=== PATIENT | female | born 1965 | race Caucasian/White ===

== ENCOUNTER 2016-07-14 19:59 | Outpatient (CLI) | payer SELFPAY | END 2016-07-15 06:50 | disposition home or self-care (01) | LOC: SLEEP 19:59 | PROVIDERS: ATTEND Nurse Practitioner Adult Health | DX: G47.33 Obstructive sleep apnea (adult) (pediatric) (principal) | CPT/HCPCS: 95811 ==

== ENCOUNTER → 2017-03-21 | Outpatient (CLI) | payer OTHER ==
--- NOTE | 2017-03-22 19:28 | Diagnostic Imaging Report ---
EXAMINATION: Bilateral screening mammogram 2D views with tomosynthesis The current study was also evaluated with a Computer Aided Detection (CAD) system. INDICATION: Screening. No current complaints stated on the questionnaire. COMPARISON: 03/15/16. FINDINGS: The breasts are composed of heterogeneously dense parenchyma which may decrease mammographic sensitivity. Occasional benign-appearing calcifications are noted. Allowing for technique and positional differences, no suspicious change is seen. IMPRESSION: Dense breasts with no definite change. ACR BI-RADS Category 2: Benign findings. Result letter will be mailed to the patient. Note: At least 10% of breast cancer is not imaged by mammography. Dictated on workstation # [id number]
== END ==
LOC: RAD 11:28
PROVIDERS: ATTEND Nurse Practitioner Family
DX: Z12.31 Encounter for screening mammogram for malignant neoplasm of breast (principal)
CPT/HCPCS: 77067

== ENCOUNTER → 2017-03-21 | Outpatient (CLI) | payer OTHER ==
--- NOTE | 2017-03-21 18:18 | Diagnostic Imaging Report ---
Transabdominal and transvaginal pelvic ultrasound. INDICATION: Menopause four years ago. FINDINGS: The uterus is 8.4 x 4.4 x 4.7 cm in size. The endometrial thickness is 0.6 cm. The myometrium is fairly homogeneous with no focal lesion seen. There is a small amount of fluid seen in the cervical canal and with irregularity of the endocervical lining. Posterior to the uterus, there is a cystic structure measuring 1.6 cm of uncertain etiology. The ovaries are obscured by bowel gas. IMPRESSION: There is thickening of the endometrial stripe for a postmenopausal woman with slight irregularity of the endocervical lining. Endometrial sampling is suggested to rule out underlying endometrial polyp, hyperplasia, or carcinoma. Dictated by: Dictated on workstation # [id number]
== END ==
LOC: RAD 11:24
PROVIDERS: ATTEND Nurse Practitioner Family
DX: N95.0 Postmenopausal bleeding (principal); Z80.41 Family history of malignant neoplasm of ovary
CPT/HCPCS: 76830; 76856

== ENCOUNTER → 2017-07-24 | Outpatient (CLI) | payer OTHER ==
--- NOTE | 2017-07-24 10:11 | Diagnostic Imaging Report ---
INDICATION: Back pain. COMPARISON: 11/07/2014. FINDINGS: Frontal and lateral radiographic views of the lumbar spine were obtained. Note is made of transitional lumbosacral anatomy. Static alignment is maintained. There is no significant meagan- or retrolisthesis. There is no evidence of jumped facets. Vertebral body heights are preserved as well. There is no evidence of acute fracture. There are mild multilevel degenerative changes consisting of intervertebral disc height loss and facet arthropathy. Surrounding soft tissue structures are unremarkable. IMPRESSION: 1. No acute fracture or dislocation of the lumbar spine. 2. Mild multilevel degenerative changes. Dictated by: Dictated on workstation # [id number]
== END ==
LOC: RAD 09:35
PROVIDERS: ATTEND Plastic Surgery
DX: Z02.71 Encounter for disability determination (principal); M47.816 Spondylosis without myelopathy or radiculopathy, lumbar region
CPT/HCPCS: 72100

== ENCOUNTER → 2018-03-26 | Outpatient (CLI) | payer MEDICAID, OTHER ==
--- NOTE | 2018-03-26 09:18 | Diagnostic Imaging Report ---
INDICATION: Routine screening. COMPARISON: 03/21/2017 and 03/15/2016. TECHNIQUE: 2D and 3D bilateral screening mammography was performed with CAD. FINDINGS: Both breasts are heterogeneously dense, limiting the sensitivity of mammography. No dominant mass or malignant appearing microcalcifications are seen. There are benign calcifications bilaterally. The axillae are unremarkable. IMPRESSION: No mammographic features suspicious for malignancy are identified. ACR BI-RADS Category 2: Benign findings. Result letter will be mailed to the patient. Note: At least 10% of breast cancer is not imaged by mammography. Dictated by: Dictated on workstation # [id number]
== END ==
LOC: RAD 07:27
PROVIDERS: ATTEND Nurse Practitioner Primary Care
DX: Z12.31 Encounter for screening mammogram for malignant neoplasm of breast (principal)
CPT/HCPCS: 77067

== ENCOUNTER 2018-05-09 12:30 | Outpatient (CLI) | payer MEDICAID ==
[~2018-05-09] VITALS: Ht 160 cm; Wt 127.9 kg
[~2018-05-09 12:30] MED LIST: ALBU1.25 INH; CETI10TA17 PO; CITA40TA11 PO; GABA-488 PO; HYDR50TA3 PO; LAMO50TA3 PO; MELO7.5T46 PO; PANT20TA3 PO; RISP1TAB94 PO; RT-ALBUINH IH
== END 2018-05-09 12:45 | disposition home or self-care (01) ==
LOC: PREOP 12:30
PROVIDERS: ATTEND Surgery
DX: Z01.818 Encounter for other preprocedural examination (principal)

== ENCOUNTER 2018-05-15 05:55 | Day surgery (SDC) | payer MEDICAID ==
[~2018-05-15] VITALS: Ht 160 cm; Wt 127.9 kg
--- OUTSIDE RECORDS SUMMARY | 2018-05-15 06:03 | XMS REPORT ---
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 Role Phone LAZARA ARGUETA Unavailable PROBLEMS Type Condition ICD9-CM Code CNE76-LK Code Onset Dates Condition Status SNOMED Code Problem Edema R60.9 Active 001663103 Problem Major depressive disorder, single episode, unspecified F32.9 Active 94813275 Problem Environmental allergies Z91.09 Active 988835057 Problem Obstructive sleep apnea G47.33 Active 30971230 Problem GERD (gastroesophageal reflux disease) K21.9 Active 523517607 Problem Bipolar 1 disorder F31.9 Active 126273990 Problem Mixed hyperlipidemia E78.2 Active 453679042 Problem COPD suggested by initial evaluation J44.9 Active 24613916 Problem Schizoaffective disorder, bipolar type F25.0 Active 56104348 Problem Neuropathy G62.9 Active 614094239 Problem Morbid (severe) obesity due to excess calories E66.01 Active 045478178 Problem Primary osteoarthritis of left knee M17.12 Active 639792333 ALLERGIES No Information ENCOUNTERS Encounter Location Date Diagnosis [facility] [address], [place] [address] May, [facility] [id number] [place] [address] 53107- 1983 Mar, [facility] [id number] [place] [address] 82681- 4231 Mar, [facility] [id number] [place] [address] 38908- 2758 Mar, [facility] [address], [place] [address] 0581 Mar, [facility] [id number] [place] [address] 39655- 0089 Mar, [facility] [id number] [place] [address] 76866- 1694 Mar, [facility] [id number] [place] [address] 94501- 6261 Mar, Screening for breast cancer Z12.31 ; Screening for colon cancer Z12.11 and BMI 45.0-49.9, adult Z68.42 [facility] [address] 63175- 2133 15 Mar, 2018 [facility] [id number] [place] [address] 58672- 9718 Mar, [facility] [id number] [place] [address] 58325- 4332 Mar, [facility] [id number] [place] [address] 87965- 0212 Jan, Schizoaffective disorder, bipolar type F25.0 and 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 [facility] [id number] [place] [address] 62179- 1720 18 Jan, 2018 Prediabetes R73.03 and Mixed hyperlipidemia E78.2 [facility] [id number] [place] [address] 11400- 3406 17 Jan, 2018 Obstructive sleep apnea G47.33 ; Primary osteoarthritis of left knee M17.12 ; Prediabetes R73.03 ; Mixed hyperlipidemia E78.2 ; COPD suggested by initial evaluation J44.9 and BMI 45.0-49.9, adult Z68.42 [facility] [id number] [place] [address] 82884- 1060 11 Jan, 2018 Encounter for immunization Z23 [facility] [id number] [place] [address] 61893- 0653 10 Jan, 2018 [facility] [id number] [place] [address] 29871- 3147 05 Dec, 2017 [facility] [address], [place] [address] 4071 Nov, Obstructive sleep apnea G47.33 and COPD suggested by initial evaluation J44.9 [facility] [address] [place] [address] 05858- 1655 Nov, COPD (chronic obstructive pulmonary disease) J44.9 [facility] [id number] [place] [address] 28623- 4541 Nov, [facility] [id number] [place] [address] 37455- 7851 Oct, [facility] [id number] [place] [address] 82436- 2690 Oct, [facility] [id number] [place] [address] 40865- 3296 Oct, Other prison (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 Z79.899 [facility] [id number] [place] [address] 98938- 4463 Oct, Schizoaffective disorder, bipolar type F25.0 ; 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 and 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.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 [facility] [address], [place] [address] 6166 Oct, Prediabetes R73.03 ; COPD suggested by initial evaluation J44.9 ; BMI 45.0-49.9, adult Z68.42 and Obstructive sleep apnea G47.33 [facility] [address], [place] [address] 4486 Sep, [facility] [id number] [place] [address] 41953- 0072 August, Neuropathy G62.9 [facility] [address], [place] [address] 3438 August, [facility] [id number] [place] [address] 70536- 1784 August, [facility] [id number] [place] [address] 01627- 1235 Jul, [facility] [address] 65418- 6925 Jul, Primary osteoarthritis of left knee M17.12 [facility] [address] 97151- 8971 Jul, Schizoaffective disorder, bipolar type F25.0 and 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 [facility] [address] 19029- 2511 Jul, Prediabetes R73.03 ; Primary osteoarthritis of left knee M17.12 ; GERD (gastroesophageal reflux disease) K21.9 ; Bipolar 1 disorder F31.9 ; Depression F32.9 ; Environmental allergies Z91.09 ; Neuropathy G62.9 ; Edema R60.9 ; Body mass index (BMI) of 45.0-49.9 in adult Z68.42 and Morbid ( severe) obesity due to excess calories E66.01 [facility] [address] 33799- 0940 Jul, [facility] [address] 31179- 0984 Jun, [facility] [id number] [place] [address] 75984- 1902 Jun, [facility] [address] 24419- 7055 Jun, Wound of right breast, initial encounter S21.001A and Prediabetes R73.03 [facility] [address] 19323- 5492 Jun, [facility] [id number] [place] [address] 50266- 1946 May, GERD (gastroesophageal reflux disease) K21.9 [facility] [address] 40143- 5456 May, Primary osteoarthritis of left knee M17.12 [facility] [id number] [place] [address] 29015- 3047 May, Schizoaffective disorder, bipolar type F25.0 and 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 [facility] [id number] [place] [address] 69502- 0867 May, Left medial knee pain M25.562 ; GERD (gastroesophageal reflux disease) K21.9 ; Depression F32.9 ; Neuropathy G62.9 ; Obesity E66.9 ; Prediabetes R73.03 and Edema R60.9 [facility] [address] 92880- 9641 14 Mar, 2017 [facility] [address] 44392- 9695 08 Mar, 2017 [facility] [id number] [place] [address] 05290- 3570 05 Mar, 2017 Post-menopausal bleeding N95.0 and BMI 50.0-59.9, adult Z68.43 [facility] [id number] [place] [address] 12147- 0159 Mar, [facility] [id number] [place] [address] 03865- 0180 Mar, Schizoaffective disorder, bipolar type F25.0 and 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 [facility] [id number] [place] [address] 10328- 7602 Mar, [facility] [id number] [place] [address] 33397- 6813 Mar, [facility] [id number] [place] [address] 22577- 0249 10 Mar, 2017 Post-menopausal bleeding N95.0 ; Screening breast examination Z12.31 ; Screen for STD (sexually transmitted disease) Z11.3 ; Obesity E66.9 ; Family history of ovarian cancer Z80.41 and Family history of cervical cancer Z80.49 [facility] [address], [place] [address]- 2948 Mar, [facility] [id number] [place] [address] 89413- 6866 Mar, [facility] [id number] [place] [address] 47327- 1174 Jan, Schizoaffective disorder, bipolar type F25.0 and 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 [facility] [id number] [place] [address] 87393- 4931 Jan, Schizoaffective disorder, bipolar type F25.0 [facility] [id number] [place] [address] 24060- 8174 Jan, [facility] [id number] [place] [address] 78906- 3086 Jan, Prediabetes R73.03 and Obesity E66.9 [facility] [id number] [place] [address] 42773- 2935 Jan, Encounter for immunization Z23 [facility] [id number] [place] [address] 01228- 2583 Jan, [facility] [id number] [place] [address] 80790- 4264 Dec, [facility] [id number] [place] [address] 50717- 0135 Dec, [facility] [id number] [place] [address] 26360- 5990 Nov, Neuropathy G62.9 [facility] [id number] [place] [address] 14901- 7691 Nov, [facility] [id number] [place] [address] 27310- 5432 Nov, Schizoaffective disorder, bipolar type F25.0 [facility] [id number] [place] [address] 86370- 7721 Nov, Other prison (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 Z79.899 and Schizoaffective disorder, bipolar type F25.0 [facility] [id number] [place] [address] 46884- 2155 Oct, Schizoaffective disorder, bipolar type F25.0 ; Other prison (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 Z79.899 and 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 [facility] [id number] [place] [address] [id number] Oct, Dental caries K02.9 [facility] [address] 46889- 8889 Sep, Neuropathy G62.9 [facility] [address] 56044- 0571 Sep, [facility] [address] 31459- 2078 Sep, Neuropathy G62.9 [facility] [address] 91490- 8789 Jul, Schizoaffective disorder, depressive type F25.1 [facility] [id number] [place] [address] 74698- 4354 Jul, GERD (gastroesophageal reflux disease) K21.9 ; Joint pain of lower extremity M25.50 ; Environmental allergies Z91.09 ; Stress incontinence of urine N39.3 ; Neuropathy G62.9 ; Edema R60.9 and Acute pain of left knee M25.562 [facility] [id number] [place] [address] 14884- 5921 Jun, [facility] [id number] [place] [address] [id number] Jun, Dental examination Z01.20 [facility] [address] 72260- 4917 Jun, [facility] [id number] [place] [address] 10806- 5929 May, [facility] [address] 39239- 4784 May, Bipolar 1 disorder F31.9 ; Joint pain of lower extremity M25.50 ; Environmental allergies Z91.09 ; Stress incontinence of urine N39.3 ; Major depressive disorder, single episode, unspecified F32.9 ; Dizzy R42 ; Schizoaffective disorder, unspecified F25.9 ; Neuropathy G62.9 ; Localized edema R60.0 and GERD (gastroesophageal reflux disease) K21.9 [facility] [address] 42759- 5695 May, Schizoaffective disorder, depressive type F25.1 [facility] [address] 30136- 5634 May, Environmental allergies Z91.09 and Major depressive disorder , single episode, unspecified F32.9 [facility] [id number] [place] [address] 18277- 4799 Mar, Dental caries K02.9 [facility] [id number] [place] [address] 24760- 6737 Mar, Dental caries on smooth surface penetrating into pulp K02.63 [facility] [id number] [place] [address] 85800 -9035 Mar, Peripheral edema R60.9 and Dry skin L85.3 [facility] [id number] [place] [address] 13528- 4376 Mar, [facility] [address] 53546- 3171 Mar, Major depressive disorder, single episode, unspecified F32.9 [facility] [id number] [place] [address] 33423- 7034 Mar, Dental caries K02.9 [facility] [id number] [place] [address] 67677- 9381 07 Mar, 2016 Diabetes mellitus with complication E11.8 ; Urinary frequency R35.0 ; Stress incontinence of urine N39.3 ; Joint pain of lower extremity M25.50 ; Obesity E66.9 ; Environmental allergies Z91.09 ; Depression F32.9 ; Schizoaffective disorder, unspecified F25.9 ; Vaginal discharge N89.8 and Vaginal candidiasis B37.3 [place] [address] 50629- 2597 Jan, Schizoaffective disorder, unspecified F25.9 [facility] [facility] [address] 22584- 0158 Jan, [place] [address] 34032- 3355 30 Dec, 2015 [place] [address] 96599- 6375 Dec, Dental caries K02.9 [facility] [address] 54181- 7089 14 Dec, 2015 Obesity E66.9 ; Edema R60.9 ; Depression F32.9 ; Bipolar 1 disorder F31.9 ; 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 ; Environmental allergies Z91.09 ; Shortness of breath R06.02 ; Gastroesophageal reflux disease with esophagitis K21.0 ; Other chronic pain G89.29 ; Pain in right knee M25.561 ; Pain in left knee M25.562 and Encounter for immunization Z23 [facility] [id number] [place] [address] 17337- 4536 Nov, Dental caries K02.9 [facility] [address] 77796- 7142 Oct, Schizoaffective disorder, unspecified F25.9 [facility] [address] 98454- 3254 12 Oct, 2015 Dental examination Z01.20 [facility] [address], [place] [address]- 2967 20 Sep, 2015 Dental examination Z01.20 and Dental caries K02.9 [facility] [id number] [place] [address] 65127- 4153 13 Sep, 2015 [facility] [id number] [place] [address] 31425- 7630 Sep, [facility] [id number] [place] [address] 55465- 1748 Sep, [facility] [id number] [place] [address] 71672- 9807 Sep, Schizoaffective disorder, unspecified F25.9 [facility] [id number] [place] [address] 88350- 2283 August, Bipolar disorder, unspecified F31.9 [facility] [id number] [place] [address] 85942- 2185 Jul, Edema R60.9 and Obesity E66.9 [facility] [id number] [place] [address] 70711- 4889 Jul, Edema R60.9 [facility] [id number] [place] [address] 40889- 1935 Jul, Edema R60.9 [facility] [id number] [place] [address] 86201 -7945 Jul, Edema R60.9 [facility] [id number] [place] [address] 75818- 9248 Jul, [facility] [id number] [place] [address] 05335- 8975 08 Jul, 2015 [facility] [id number] [place] [address] 19844- 1424 24 Jun, 2015 Environmental allergies V15.09 and Cough R05 [facility] [address] 42828- 6898 17 Jun, 2015 Environmental allergies V15.09 ; Edema R60.9 and Cough R05 [facility] [address] 89929 -6061 12 Jun, 2015 Bronchospasm J98.01 [facility] [address] 39542- 1996 10 Jun, 2015 [place] [address] 17920- 0036 09 Jun, 2015 [place] [address] 58601- 9704 08 Jun, 2015 Environmental allergies V15.09 ; Bipolar 1 disorder F31.9 ; GERD (gastroesophageal reflux disease) K21.9 ; Depression F32.9 ; Joint pain of lower extremity M25.50 ; COPD (chronic obstructive pulmonary disease) J44.9 and Screening for diabetes mellitus Z13.1 [place] [address] 49798- 5796 16 Jun, 2015 [place] [address] 08724- 3526 May, [facility] [address] 22645- 5274 14 May, 2015 Schizoaffective disorder, unspecified F25.9 and Bipolar 1 disorder F31.9 [facility] [address] 32791- 0472 May, [place] [address] 93823- 3895 May, URI (upper respiratory infection) J06.9 ; Environmental allergies V15.09 and Cough R05 [facility] [id number] [place] [address] 11352- 6678 18 Mar, 2015 [place] [address] 42778- 8407 15 Mar, 2015 Vaginal discharge N89.8 [facility] [place] [address] 88890- 3387 14 Mar, 2015 Schizoaffective disorder, unspecified F25.9 ; Major depressive disorder, single episode, unspecified F32.9 and Bipolar 1 disorder F31.9 [facility] [address] 71143- 1743 Mar, [place] [address] 59593- 1005 Mar, Bipolar 1 disorder F31.9 [facility] [address] 68868- 9330 Jan, [place] [address] 50801- 8768 Jan, Allergic rhinitis J30.9 and Cough R05 [facility] [address] 65342- 9762 Jan, 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 ; Bipolar 1 disorder F31.9 ; GERD ( gastroesophageal reflux disease) K21.9 ; Depression F32.9 and Joint pain of lower extremity M25.50 [facility] [address] 62942- 0899 28 Dec, 2014 Encounter for immunization Z23 [facility] [address] 94661- 3295 Dec, Schizoaffective disorder, unspecified 295.70 ; Pain in joint , lower leg 719.46 ; Esophageal reflux 530.81 ; Bipolar 1 disorder 296.7 ; Depression 311 ; GERD (gastroesophageal reflux disease) 530.81 and Environmental allergies V15.09 [facility] [id number] [place] [address] [id number] Nov, Dental examination V72.2 [facility] [id number] [place] [address] 76868- 3651 Nov, Acute bronchitis 466.0 [facility] [address], [place] [address]- 2546 Nov, Schizoaffective disorder, unspecified 295.70 and Bipolar disorder, unspecified 296.80 [facility] [address] [address] Sep, Dental examination V72.2 [facility] [address] [id number] August, Dental examination V72.2 [facility] [id number] [place] [address] 99907- 9126 August, Schizoaffective disorder, unspecified 295.70 [facility] [id number] [place] [address] 47652 2546 August, [facility] [id number] [place] [address] 92629 2546 August, Vomiting 787.03 [facility] [id number] [place] [address] 92361- 9716 August, Vomiting and diarrhea 787.03 and High risk medication use V58.69 [facility] [address], [place] [address]- 0356 Jul, [facility] [address], [place] [address]- 4416 Jul, [facility] [address], [place] [address]- 4806 Jul, [facility] [address], [place] [address] 2546 Jun, [facility] [address] [place] [address] 07656- 1346 Jun, [facility] [address], [place] [address] 2546 Jun, [facility] [address], [place] [address]- 2376 Jun, [facility] [place] [facility] [address] [id number] [place] [address]- 2636 16 Jun, 2014 [facility] [place] [facility] [address] [id number] [place] [address]- 4716 Jun, 2014 [facility] [place] [facility] [address] [id number] [place] [address]- 4786 Jun, 2014 [facility] [place] [facility] [address] [id number] [place] [address]- 3736 Jun, 2014 [facility] [place] [facility] [address] [id number] [place] [address]- 2089 Jun, 2014 [facility] [place] [facility] [address] [id number] [place] [address]- 6297 Mar, [facility] [place] [facility] [address] [id number] [place] [address]- 4965 Mar, [facility] [place] [facility] [address] [id number] [place] [address]- 6410 Mar, [facility] [place] [facility] [address] [id number] [place] [address]- 2674 Mar, [facility] [place] [facility] [address] [id number] [place] [address]- 4882 Mar, [facility] [place] [facility] [address] [id number] [place] [address]- 2703 Mar, [facility] [place] [facility] [address] [id number] [place] [address]- 1983 Mar, [facility] [place] [facility] [address] [id number] [place] 9495 Mar, [facility] [place] [facility] [address] [id number] [place] [address]- 6513 Mar, [facility] [place] [facility] [address] [id number] [place] [address]- 9141 Mar, [facility] [place] [facility] [address] [id number] [place] [address]- 3383 Jan, [facility] [place] [facility] [address] [id number] [place] [address]- 8150 Jan, [facility] [place] [facility] [address] [id number] [place] [address]- 1170 Jan, [facility] [place] [facility] [address] [id number] [place] [address]- 1841 Jan, [facility] [place] [facility] [address] [id number] [place] [address]- 0756 Jan, [facility] [place] [facility] [address] [id number] [place] [address]- 9280 Jan, [facility] [place] [facility] [address] [id number] [place] [address]- 9898 Jan, [facility] [place] [facility] [address] [id number] [place] [address] Jan, [facility] [place] [facility] [address] [id number], [place] [address] 19 Dec, 2013 [facility] [place] [facility] [address] [id number] [place] [address] 19 Dec, 2013 [facility] [place] [facility] [address] [id number] [place] [address] 15 Dec, 2013 [facility] [place] [facility] [address] [id number] [place] [address] 15 Sep, 2013 [facility] [place] [facility] [address] [id number], [place] [address] 15 Sep, 2013 [facility] [place] [facility] [address] [id number] [place] [address] 15 Dec, 2013 [facility] [place] [facility] [address] [id number], [place] [address] 12 Dec, 2013 [facility] [place] [facility] [address] [id number], [place] [address] 12 Dec, 2013 [facility] [place] [facility] [address] [id number] [place] [address] Dec, [facility] [place] [facility] [address] [id number] [place] [address] Dec, [facility] [place] [facility] [address] [id number] [place] [address] Nov, [facility] [place] [facility] [address] [id number] [place] [address] Nov, [facility] [place] [facility] [address] [id number] [place] [address] Nov, [facility] [facility] [address] [id number] [place] [address] Nov, [facility] [place] [facility] [address] [id number] [place] [address] Oct, [facility] [place] [facility] [address] [id number] [place] [address] Oct, [facility] [place] [facility] [address] [id number] [place] [address] 89[address] Oct, [facility] [place] [facility] [address] [id number] [place] [address] Oct, [facility] [place] [facility] [address] [id number] [place] [address] Sep, [facility] [place] [facility] [address] [id number] [place] [address] 1573 Sep, [facility] [place] [facility] [address] [id number] [place] [address] Sep, [facility] [place] [facility] [address] [id number] [place] [address] 17 Sep, 2013 [facility] [place] [facility] [address] [id number] [place] [address]- [address] 14 Sep, 2013 [facility] [place] [facility] [address] [id number] [place] [address]- 0766 Sep, [facility] [place] [facility] [address] [id number] [place] [address]26 Sep, [facility] [place] [facility] [address] [id number] [place] [address] Sep, [facility] [place] [facility] [address] [id number] [place] [address] August, [facility] [place] [facility] [address] [id number] [place] [address]15 August, [facility] [place] [facility] [address] [id number] [place] [address] Jul, [facility] [place] [facility] [address] [id number] [place] [address]- 8982 Jul, [facility] [place] [facility] [address] [id number] [place] [address] 46[address] Jul, [facility] [place] [facility] [address] [id number] [place] [address] 3861 Jul, [facility] [place] [facility] [address] [id number] [place] [address]- 9207 Jul, [facility] [place] [facility] [address] [id number] [place] [address] Jul, [facility] [address] [id number] [place] [address]- 0133 Jul, [facility] [address] [id number], [place] [address] Jul, [facility] [address] [id number] [place] [address] 3928 Jul, [facility] [address] [id number] [place] [address]- [address] Jul, [facility] [address] [id number] [place] [address]- 4[address] Jun, [facility] [facility] [address] [id number] [place] [address]- 1787 27 Jun, 2013 [facility] [address] [id number] [place] [address]- 2578 18 Jun, 2013 [facility] [address] [id number] [place] [address] 18 Jun, 2013 [facility] [address] [id number] [place] [address]- [address]704 17 Jun, 2013 [facility] [place] [address] [id number] [place] [address]- 3484 17 Jun, 2013 [facility] [address] [id number] [place] [address]- 9496 17 Jun, 2013 [facility] [address] [id number] [place] [address]- 6301 17 Jun, 2013 [facility] [address] [id number] [place] [address]- 6[address] 14 Jun, 2013 [facility] [address] [id number] [place] [address]- 5275 14 Jun, 2013 [facility] [address] [id number] [place] [address]- 8137 07 Jun, 2013 [facility] [address] [facility] [id number] [place] [address]- [address]894 07 Jun, 2013 [facility] [address] [id number] [place] [address]- [address]37 Jun, [facility] [address] [id number] [place] [address]- 7841 Jun, [facility] [address] [id number] [place] [address]- 1072 Jun, [facility] [address] [id number] [place] [address]- [address]376 Jun, [facility] [address] [id number] [place] [address]- 6188 May, [facility] [address] [id number] [place] [address]- 2569 May, [facility] [address] [id number] [place] [address] 3213 May, [facility] [address] [id number] [place] [address]- 6221 May, [facility] [address] [id number] [place] [address]- 0207 Mar, [facility] [address] [id number] [place] [address] Mar, [facility] [address] [id number] [place] [address] 1943 Mar, [facility] [address] [id number] [place] [address]- 1656 Mar, [facility] [address] [id number] [place] [address]- 7600 Mar, [facility] [address] [id number] [place] [address]- 8973 Mar, [facility] [address] [id number] [place] [address]- 1283 Mar, [facility] [address] [id number] [place] [address]- 2566 Mar, [facility] [address] [id number], [place] [address] Jan, [facility] [address] [id number] [place] [address]- 6743 Jan, [facility] [address] [id number] [place] [address]- 7888 Jan, [facility] [address] [id number] [place] [address]- 3141 Jan, [facility] [address] [id number] [place] [address]- 6120 Jan, [facility] [address] [id number] [place] [address]- 3269 Jan, [facility] [address] [id number] [place] [address]- 0578 Jan, [facility] [address] [id number] [place] [address]- 1414 Dec, [facility] [address] [id number] [place] [address]- 4424 Nov, [facility] [address] [id number] [place] [address]- 1575 Oct, [facility] [address] [id number] [place] [address]- 4017 Oct, [facility] [address] [id number], [place] [address]- 2[address] Sep, [facility] [address] [id number] [place] [address]- 6664 Sep, [facility] [address] [id number] [place] [address]- 5880 Sep, [facility] [address] [id number] [place] [address]- 3158 August, [facility] [address] [id number] [place] [address]- 5753 Jun, [facility] [address] [id number], [place] [address]- 9150 Jun, [facility] [address] [id number], [place] [address]- 7479 Jun, [facility] [address] [id number], [place] [address]- 6184 Jun, [facility] [address] [id number], [place] [address]- 0825 Jun, [facility] [address] [id number] [place] [address]- 5432 Jun, [facility] [address] [id number] [place] [address]- 5027 Jun, [facility] [address] [id number] [place] [address]- 1432 May, [facility] [address] [id number] [place] [address]- 5863 May, [facility] [address] [id number] [place] [address]- 8187 May, [facility] [address] [id number] [place] [address]- 5551 May, [facility] [address] [id number] [place] [address]- 1188 May, [facility] [address] [id number], [place] [address]- 3737 May, [facility] [address] [id number] [place] [address]- 1262 May, [facility] [address] [id number], [place] [address]- 1493 Mar, [facility] [address] [id number], [place] [address]- 4308 Mar, [facility] [address] [id number], [place] [address]- 3453 Mar, [facility] [address] [id number] [place] [address]- 0168 Mar, [facility] [address] [id number] [place] [address]- 9106 Mar, [facility] [address] [id number], [place] [address]- 6891 Mar, [facility] [address] [id number], [place] [address]- 9430 Mar, [facility] [address] [id number] [place] [address]- 6671 Mar, [facility] [address] [id number] [place] [address]- 9591 Mar, [facility] [address] [facility] [id number] [place] [address]- 7454 Mar, [facility] [address] [id number] [place] [address]- 5526 Mar, [facility] [address] [id number] [place] [address], [place] [address]- 3284 Mar, [facility] [address] [facility] [id number] [place] [address]- 9622 Mar, [facility] [address] [id number] [place] [address]- 2678 Mar, [facility] [address] [facility] [id number] [place] [address]- 0477 Mar, [facility] [address] [id number] [place] [address]- 0074 Mar, [facility] [address] [facility] [id number] [place] [address]- 0904 Mar, [facility] [address] [facility] [id number], [place] [address]- 5166 Mar, [facility] [address] [facility] [id number], [place] [address]- 9338 Mar, [facility] [address] [facility] [id number], [place] [address]- 2895 Jan, [facility] [address] [facility] [id number], [place] [address]- 4470 Jan, [facility] [address] [facility] [id number], [place] [address]- 5234 Jan, [facility] [id number], [place] [address]- 7945 Jan, [facility] [id number], [place] [address]- 8976 Dec, [facility] [id number], [place] [address]- 0557 Dec, [facility] [id number], [place] [address]- 8809 Dec, [facility] [id number], [place] [address]- 1801 Nov, [facility] [id number] [place] [address]- 1723 Nov, [facility] [id number] [place] [address]- 8213 Oct, [facility] [id number] [place] [address]- 3238 Oct, [facility] [id number], [place] [address]- 0688 Oct, [facility] [id number], [place] [address]- 3665 Oct, [facility] [id number], [place] [address]- 5790 Oct, [facility] [id number], [place] [address]- 5640 Oct, IMMUNIZATIONS No Known Immunizations SOCIAL HISTORY Never Assessed REASON FOR VISIT Requests return call PLAN OF CARE VITAL SIGNS MEDICATIONS Unknown Medications RESULTS No Results PROCEDURES No Known procedures INSTRUCTIONS MEDICATIONS ADMINISTERED No Known Medications MEDICAL (GENERAL) HISTORY Type Description Date Medical History bipolar disorder Medical History depression Medical History GERD Medical History hx of meth use til 1998 Medical History DX sleep apnea 06/2016 Medical History History of methylenedioxymethamphetamine (MDMA) use Medical History Osteoarthritis- Knees Medical History Neuropathy Medical History COPD suggestive by initial evaluation 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
--- OUTSIDE RECORDS SUMMARY | 2018-05-15 06:03 | XMS REPORT ---
Author Author LAZARA ARGUETA [facility] Address [address] [place] [address] Care Team Providers Care Top Loader Name Role Phone LAZARA ARGUETA Unavailable PROBLEMS Type Condition ICD9-CM Code GZW10-RR Code Onset Dates Condition Status SNOMED Code Problem Edema R60.9 Active 027714008 Problem Major depressive disorder, single episode, unspecified F32.9 Active 70117262 Problem Environmental allergies Z91.09 Active 229368111 Problem Obstructive sleep apnea G47.33 Active 48045917 Problem GERD (gastroesophageal reflux disease) K21.9 Active 781316975 Problem Bipolar 1 disorder F31.9 Active 926747117 Problem Mixed hyperlipidemia E78.2 Active 938221119 Problem COPD suggested by initial evaluation J44.9 Active 13880817 Problem Schizoaffective disorder, bipolar type F25.0 Active 96009990 Problem Neuropathy G62.9 Active 276272904 Problem Morbid (severe) obesity due to excess calories E66.01 Active 374223573 Problem Primary osteoarthritis of left knee M17.12 Active 331326401 ALLERGIES No Information ENCOUNTERS Encounter Location Date Diagnosis [facility] [address], [place] [address] May, [facility] [id number] [place] [address] 20894- 8243 Mar, [facility] [address], [place] [address] 7941 Mar, [facility] [id number] [place] [address] 70613- 1350 Mar, [facility] [address], [place] [address] 8961 Mar, [facility] [id number] [place] [address] 04159- 3756 Mar, [facility] [id number] [place] [address] 49488- 3862 Mar, Screening for breast cancer Z12.31 ; Screening for colon cancer Z12.11 and BMI 45.0-49.9, adult Z68.42 [facility] [address] 15056- 7050 15 Mar, 2018 [facility] [facility] [address] 97980- 8354 Mar, [facility] [address] 79861- 4262 Mar, [facility] [address] 31588- 9333 Jan, Schizoaffective disorder, bipolar type F25.0 and 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 [facility] [address] 30660- 1661 Jan, Prediabetes R73.03 and Mixed hyperlipidemia E78.2 [place] [id number] [place] [address] 13209- 3088 17 Jan, 2018 Obstructive sleep apnea G47.33 ; Primary osteoarthritis of left knee M17.12 ; Prediabetes R73.03 ; Mixed hyperlipidemia E78.2 ; COPD suggested by initial evaluation J44.9 and BMI 45.0-49.9, adult Z68.42 [facility] [id number] [place] [address] 25323- 3014 11 Jan, 2018 Encounter for immunization Z23 [facility] [id number] [place] [address] 22613- 6799 Jan, [facility] [id number] [place] [address] 36474- 6257 Dec, [facility] [id number] [place] [address] 16484- 3042 Nov, Obstructive sleep apnea G47.33 and COPD suggested by initial evaluation J44.9 [facility] [address], [place] [address] 1187 Nov, COPD (chronic obstructive pulmonary disease) J44.9 [facility] [id number], [place] [address] 0411 Nov, [facility] [id number] [place] [address] 65934- 9525 Oct, [facility] [id number] [place] [address] 18516- 8546 Oct, [facility] [id number] [place] [address] 56344- 0734 Oct, Other fci (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 Z79.899 [facility] [id number] [place] [address] 13659- 4664 Oct, Schizoaffective disorder, bipolar type F25.0 ; 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 and Other fci (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 Z79.899 [facility] [id number] [place] [address] 72875- 9560 Oct, Prediabetes R73.03 ; COPD suggested by initial evaluation J44.9 ; BMI 45.0-49.9, adult Z68.42 and Obstructive sleep apnea G47.33 [facility] [id number], [place] [address] 6021 Sep, [facility] [id number] [place] [address] 86471- 3834 August, Neuropathy G62.9 [facility] [id number] [place] [address] 74022- 6263 August, [facility] [id number] [place] [address] 59134- 2922 August, [facility] [id number] [place] [address] 35617- 7338 Jul, [facility] [facility] [address] [place] [address] 90350- 9003 Jul, Primary osteoarthritis of left knee M17.12 [facility] [id number] [place] [address] 19046- 9648 Jul, Schizoaffective disorder, bipolar type F25.0 and 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 [facility] [id number] [place] [address] 74530- 1607 Jul, Prediabetes R73.03 ; Primary osteoarthritis of left knee M17.12 ; GERD (gastroesophageal reflux disease) K21.9 ; Bipolar 1 disorder F31.9 ; Depression F32.9 ; Environmental allergies Z91.09 ; Neuropathy G62.9 ; Edema R60.9 ; Body mass index (BMI) of 45.0-49.9 in adult Z68.42 and Morbid ( severe) obesity due to excess calories E66.01 [facility] [id number] [place] [address] 95082- 1165 Jul, [facility] [id number] [place] [address] 96461- 3801 Jun, [facility] [id number] [place] [address] 22572- 9391 Jun, [facility] [id number] [place] [address] 55294- 2593 Jun, Wound of right breast, initial encounter S21.001A and Prediabetes R73.03 [facility] [id number] [place] [address] 75795- 8097 Jun, [facility] [id number] [place] [address] 69608- 3712 May, GERD (gastroesophageal reflux disease) K21.9 [facility] [id number] [place] [address] 29870- 4872 May, Primary osteoarthritis of left knee M17.12 [facility] [id number] [place] [address] 77050- 5928 22 May, 2017 Schizoaffective disorder, bipolar type F25.0 and 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 [facility] [id number] [place] [address] 23755- 0720 04 May, 2017 Left medial knee pain M25.562 ; GERD (gastroesophageal reflux disease) K21.9 ; Depression F32.9 ; Neuropathy G62.9 ; Obesity E66.9 ; Prediabetes R73.03 and Edema R60.9 [facility] [id number] [place] [address] 26710- 2926 14 Mar, 2017 [facility] [address] 88336- 8732 08 Mar, 2017 [place] [address] 22416- 7756 05 Mar, 2017 Post-menopausal bleeding N95.0 and BMI 50.0-59.9, adult Z68.43 [facility] [id number] [place] [address] 04192- 8933 Mar, [facility] [address] 22136- 5927 27 Mar, 2017 Schizoaffective disorder, bipolar type F25.0 and 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 [facility] [id number] [place] [address] 24253- 8923 Mar, [facility] [id number] [place] [address] 83929- 3313 16 Mar, 2017 [facility] [id number] [place] [address] 95549- 2462 10 Mar, 2017 Post-menopausal bleeding N95.0 ; Screening breast examination Z12.31 ; Screen for STD (sexually transmitted disease) Z11.3 ; Obesity E66.9 ; Family history of ovarian cancer Z80.41 and Family history of cervical cancer Z80.49 [facility] [id number] [place] [address] 66758- 3860 Mar, [facility] [id number] [place] [address] 91163- 1892 Mar, [facility] [id number] [place] [address] 93400- 4282 Jan, Schizoaffective disorder, bipolar type F25.0 and 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 [facility] [id number] [place] [address] 50816- 9039 Jan, Schizoaffective disorder, bipolar type F25.0 [facility] [id number] [place] [address] 65297- 7750 Jan, [facility] [id number] [place] [address] 01474- 3600 Jan, Prediabetes R73.03 and Obesity E66.9 [facility] [id number] [place] [address] 45606- 9510 Jan, Encounter for immunization Z23 [facility] [id number] [place] [address] 36454- 6846 Jan, [facility] [id number] [place] [address] 32986- 9382 Dec, [facility] [id number] [place] [address] 48664- 2082 Dec, [facility] [id number] [place] [address] 31143- 4577 Nov, Neuropathy G62.9 [facility] [id number] [place] [address] 80024- 2501 Nov, [facility] [id number] [place] [address] 00771- 2327 Nov, Schizoaffective disorder, bipolar type F25.0 [facility] [address] [place] [address] 44474- 7110 Nov, Other long term care pharmacist (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 Z79.899 and Schizoaffective disorder, bipolar type F25.0 [facility] [id number] [place] [address] 85318- 7994 Oct, Schizoaffective disorder, bipolar type F25.0 ; Other long term care pharmacist (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 Z79.899 and 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 [facility] [id number] [place] [address] [id number] Oct, Dental caries K02.9 [facility] [address] 80167- 0825 Sep, Neuropathy G62.9 [facility] [address] 89228- 5352 Sep, [facility] [address] 14432- 0872 Sep, Neuropathy G62.9 [facility] [id number] [place] [address] 36200- 2741 Jul, Schizoaffective disorder, depressive type F25.1 [facility] [address] 92212- 9216 Jul, GERD (gastroesophageal reflux disease) K21.9 ; Joint pain of lower extremity M25.50 ; Environmental allergies Z91.09 ; Stress incontinence of urine N39.3 ; Neuropathy G62.9 ; Edema R60.9 and Acute pain of left knee M25.562 [facility] [id number] [place] [address] 66769- 8521 Jun, [facility] [id number] [place] [address] [id number] Jun, Dental examination Z01.20 [facility] [id number] [place] [address] 65822- 9147 Jun, [facility] [address] 46384- 4293 May, [facility] [id number] [place] [address] 83610- 7236 May, Bipolar 1 disorder F31.9 ; Joint pain of lower extremity M25.50 ; Environmental allergies Z91.09 ; Stress incontinence of urine N39.3 ; Major depressive disorder, single episode, unspecified F32.9 ; Dizzy R42 ; Schizoaffective disorder, unspecified F25.9 ; Neuropathy G62.9 ; Localized edema R60.0 and GERD (gastroesophageal reflux disease) K21.9 [facility] [id number] [place] [address] 22006- 3042 May, Schizoaffective disorder, depressive type F25.1 [place] [address] 93598- 8257 May, Environmental allergies Z91.09 and Major depressive disorder , single episode, unspecified F32.9 [place] [facility] [address] 60824- 3942 Mar, Dental caries K02.9 [place] [address] 07101- 6809 Mar, Dental caries on smooth surface penetrating into pulp K02.63 [facility] [id number] [place] [address] 68473 -7426 Mar, Peripheral edema R60.9 and Dry skin L85.3 [place] [address] 61365- 7233 Mar, [place] [address] 93185- 6149 Mar, Major depressive disorder, single episode, unspecified F32.9 [place] [facility] [address] 21822- 1024 Mar, Dental caries K02.9 [place] [address] 73747- 7413 Mar, Diabetes mellitus with complication E11.8 ; Urinary frequency R35.0 ; Stress incontinence of urine N39.3 ; Joint pain of lower extremity M25.50 ; Obesity E66.9 ; Environmental allergies Z91.09 ; Depression F32.9 ; Schizoaffective disorder, unspecified F25.9 ; Vaginal discharge N89.8 and Vaginal candidiasis B37.3 [place] [address] 64672- 1313 Jan, Schizoaffective disorder, unspecified F25.9 [place] [address] 53133- 3955 Jan, [facility] [address] 80267- 0784 30 Dec, 2015 [place] [address] 14356- 7433 19 Dec, 2015 Dental caries K02.9 [facility] [place] [address] 95420- 2035 14 Dec, 2015 Obesity E66.9 ; Edema R60.9 ; Depression F32.9 ; Bipolar 1 disorder F31.9 ; 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 ; Environmental allergies Z91.09 ; Shortness of breath R06.02 ; Gastroesophageal reflux disease with esophagitis K21.0 ; Other chronic pain G89.29 ; Pain in right knee M25.561 ; Pain in left knee M25.562 and Encounter for immunization Z23 [place] [address] 49450- 4246 Nov, Dental caries K02.9 [place] [address] 15433- 8978 Oct, Schizoaffective disorder, unspecified F25.9 [facility] [id number] [place] [address] 62859- 1701 Oct, Dental examination Z01.20 [facility] [address] 73870- 6512 Sep, Dental examination Z01.20 and Dental caries K02.9 [facility] [id number] [place] [address] 92716- 6110 Sep, [facility] [id number] [place] [address] 53033- 8699 Sep, [facility] [id number] [place] [address] 42526- 0037 Sep, [facility] [address] 13965- 1534 Sep, Schizoaffective disorder, unspecified F25.9 [place] [address] 07782- 2504 August, Bipolar disorder, unspecified F31.9 [facility] [id number] [place] [address] 63252- 9448 Jul, Edema R60.9 and Obesity E66.9 [facility] [id number] [place] [address] 71371- 3812 Jul, Edema R60.9 [place] [address] 18866- 7480 Jul, Edema R60.9 [facility] [id number] [place] [address] 04642 -2445 Jul, Edema R60.9 [facility] [id number] [place] [address] 92984- 2491 Jul, [facility] [id number] [place] [address] 60580- 3375 Jul, [facility] [address] 23392- 9293 Jun, Environmental allergies V15.09 and Cough R05 [facility] [id number] [place] [address] 23899- 5783 Jun, Environmental allergies V15.09 ; Edema R60.9 and Cough R05 [facility] [id number] [place] [address] 31661 -5968 12 Jun, 2015 Bronchospasm J98.01 [facility] [address] 00154- 4338 10 Jun, 2015 [facility] [address] 98781- 2646 Jun, [facility] [address] 55780- 5062 08 Jun, 2015 Environmental allergies V15.09 ; Bipolar 1 disorder F31.9 ; GERD (gastroesophageal reflux disease) K21.9 ; Depression F32.9 ; Joint pain of lower extremity M25.50 ; COPD (chronic obstructive pulmonary disease) J44.9 and Screening for diabetes mellitus Z13.1 [place] [address] 18221- 6737 Jun, [facility] [facility] [address] 64328- 0652 May, [facility] [facility] [address] 24108- 2547 May, Schizoaffective disorder, unspecified F25.9 and Bipolar 1 disorder F31.9 [place] [address] 48122- 9541 May, [place] [address] 30598- 5340 May, URI (upper respiratory infection) J06.9 ; Environmental allergies V15.09 and Cough R05 [place] [address] 20351- 9579 Mar, [facility] [address] 49640- 5674 15 Mar, 2015 Vaginal discharge N89.8 [place] [address] 37612- 1554 Mar, Schizoaffective disorder, unspecified F25.9 ; Major depressive disorder, single episode, unspecified F32.9 and Bipolar 1 disorder F31.9 [facility] [id number] [place] [address] 21806- 0431 Mar, [facility] [id number] [place] [address] 78803- 7059 Mar, Bipolar 1 disorder F31.9 [facility] [id number] [place] [address] 19536- 6208 Jan, [place] [address] 12448- 9691 Jan, Allergic rhinitis J30.9 and Cough R05 [place] [address] 73188- 6918 Jan, 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 ; Bipolar 1 disorder F31.9 ; GERD ( gastroesophageal reflux disease) K21.9 ; Depression F32.9 and Joint pain of lower extremity M25.50 [facility] [id number] [place] [address] 19386- 6318 28 Dec, 2014 Encounter for immunization Z23 [facility] [id number] [place] [address] 23137- 1364 02 Dec, 2014 Schizoaffective disorder, unspecified 295.70 ; Pain in joint , lower leg 719.46 ; Esophageal reflux 530.81 ; Bipolar 1 disorder 296.7 ; Depression 311 ; GERD (gastroesophageal reflux disease) 530.81 and Environmental allergies V15.09 [facility] [address] [place] [address] [id number] Nov, Dental examination V72.2 [place] [address] 04777- 7616 Nov, Acute bronchitis 466.0 [facility] [id number] [place] [address] 49091- 3107 Nov, Schizoaffective disorder, unspecified 295.70 and Bipolar disorder, unspecified 296.80 [facility] [id number] [id number] Sep, Dental examination V72.2 [facility] [address] [id number] August, Dental examination V72.2 [facility] [id number] [place] [address] 06530 2546 August, Schizoaffective disorder, unspecified 295.70 [facility] [id number] [place] [address] 63690- 2546 August, [facility] [id number] [place] [address] 34050- 2546 August, Vomiting 787.03 [facility] [id number] [place] [address] 35959 2546 August, Vomiting and diarrhea 787.03 and High risk medication use V58.69 [facility] [address] [place] [address]- 9716 Jul, [facility] [id number] [place] [address] 27235- 5616 Jul, [facility] [address], [place] [address]- 3506 Jul, [facility] [address], [place] [address]- 9876 Jun, [facility] [address], [place] [address]- 2546 Jun, [facility] [id number] [address]- 1656 Jun, [facility] [address], [place] [address]- 2546 Jun, [facility] [address], [place] [address]- 2216 Jun, [facility] [place] [facility] [address] [id number] [place] [address]- 6891 Jun, 2014 [facility] [place] [facility] [address] [id number] [place] [address]- 7006 Jun, 2014 [facility] [place] [facility] [address] [id number] [place] [address]- 8423 Jun, 2014 [facility] [place] [facility] [address] [id number] [place] [address]- 4023 Jun, 2014 [facility] [place] [facility] [address] [id number] [place] [address]- 8736 Mar, [facility] [place] [facility] [address] [id number] [place] [address]- 3223 Mar, [facility] [place] [facility] [address] [id number] [place] [address]- 7001 Mar, [facility] [place] [facility] [address] [id number] [place] [address]- 7339 Mar, [facility] [place] [facility] [address] [id number] [place] [address]- 9909 Mar, [facility] [place] [facility] [address] [id number] [place] [address]- 6336 Mar, [facility] [place] [facility] [address] [id number] [place] [address]- 7007 Mar, [facility] [place] [facility] [address] [id number] [place] [address]- 9995 Mar, [facility] [place] [facility] [address] [id number] [place] [address]- 2252 Mar, [facility] [place] [facility] [address] [id number] [place] 2140 Mar, [facility] [place] [facility] [address] [id number] [place] 1457 Jan, [facility] [place] [facility] [address] [id number] [place] [address]- 3904 Jan, [facility] [place] [facility] [address] [id number] [place] [address]- 5214 31 Jan, 2014 [facility] [place] [facility] [address] [id number] [place] [address]- 1743 31 Jan, 2014 [facility] [place] [facility] [address] [id number] [place] [address]- 4285 14 Jan, 2014 [facility] [place] [facility] [address] [id number] [place] [address] 14 Jan, 2014 [facility] [place] [facility] [address] [id number] [place] [address] Jan, [facility] [place] [facility] [address] [id number] [place] [address] Jan, [facility] [place] [facility] [address] [id number] [place] [address] 19 Dec, 2013 [facility] [place] [facility] [address] [id number] [place] [address] 19 Sep, 2013 [facility] [place] [facility] [address] [id number] [place] [address] 15 Dec, 2013 [facility] [place] [facility] [address] [id number] [place] [address] 15 Sep, 2013 [facility] [place] [facility] [address] [id number] [place] [address] 15 Sep, 2013 [facility] [place] [facility] [address] [id number], [place] [address] 15 Sep, 2013 [facility] [place] [facility] [address] [id number] [place] [address] 12 Dec, 2013 [facility] [place] [facility] [address] [id number], [place] [address] 12 Dec, 2013 [facility] [place] [facility] [address] [id number], [place] [address] 03 Sep, 2013 [facility] [place] [facility] [address] [id number] [place] [address] Dec, [facility] [place] [facility] [address] [id number] [place] [address] Nov, [facility] [place] [facility] [address] [id number] [place] [address] Nov, [facility] [place] [facility] [address] [id number] [place] [address] Nov, [facility] [place] [facility] [address] [id number] [place] [address] Nov, [facility] [place] [facility] [address] [id number] [place] [address] Oct, [facility] [place] [facility] [address] [id number] [place] [address] Oct, [facility] [place] [facility] [address] [id number] [place] [address] Oct, [facility] [place] [facility] [address] [id number] [place] [address] Oct, [facility] [place] [facility] [address] [id number] [place] [address] Sep, [facility] [place] [facility] [address] [id number] [place] [address]- [address] Sep, [facility] [place] [facility] [address] [id number] [place] [address] Sep, [facility] [place] [facility] [address] [id number] [place] [address] Sep, [facility] [place] [facility] [address] [id number] [place] [address] Sep, [facility] [place] [facility] [address] [id number] [place] [address] Sep, [facility] [place] [facility] [address] [id number] [place] [address]- [address] Sep, [facility] [place] [facility] [address] [id number] [place] [address] Sep, [facility] [place] [facility] [address] [id number] [place] [address] August, [facility] [place] [facility] [address] [id number] [place] [address] 73[address] August, [facility] [place] [facility] [address] [id number] [place] [address] Jul, [facility] [place] [facility] [address] [id number] [place] [address] Jul, [facility] [place] [facility] [address] [id number] [place] [address] Jul, [facility] [place] [facility] [address] [id number] [place] [address] Jul, [facility] [place] [facility] [address] [id number] [place] [address]- 9667 Jul, [facility] [place] [facility] [address] [id number] [place] [address] Jul, [facility] [place] [facility] [address] [id number] [place] [address] 3964 Jul, [facility] [place] [facility] [address] [id number] [place] [address]- [address] Jul, [facility] [place] [facility] [address] [id number], [place] [address] Jul, [facility] [place] [facility] [address] [id number] [place] [address]- [address] Jul, [facility] [place] [facility] [address] [id number] [place] [address]- [address] Jun, [facility] [place] [facility] [address] [id number] [place] [address]- 63[address] Jun, [facility] [place] [facility] [address] [id number] [place] [address]- 9267 18 Jun, 2013 [facility] [place] [facility] [address] [id number] [place] [address]- 4766 18 Jun, 2013 [facility] [place] [facility] [address] [id number] [place] [address]- 8456 17 Jun, 2013 [facility] [place] [facility] [address] [id number] [place] [address]- 0396 17 Jun, 2013 [facility] [place] [facility] [address] [id number] [place] [address]- [address] 17 Jun, 2013 [facility] [place] [facility] [address] [id number] [place] [address]- 1470 17 Jun, 2013 [facility] [place] [facility] [address] [id number] [place] [address]- 8492 14 Jun, 2013 [facility] [place] [facility] [address] [id number] [place] [address]- [address] 14 Jun, 2013 [facility] [place] [facility] [address] [id number] [place] [address]- [address]013 07 Jun, 2013 [facility] [place] [facility] [address] [id number] [place] [address]- 1780 07 Jun, 2013 [facility] [place] [facility] [address] [id number] [place] [address]- 2504 Jun, [facility] [place] [facility] [address] [id number] [place] [address]- 8448 Jun, [facility] [place] [facility] [address] [id number] [place] [address]- 8249 Jun, [facility] [place] [facility] [address] [id number] [place] [address]- 2345 Jun, [facility] [place] [facility] [address] [id number] [place] [address]- 5056 May, [facility] [place] [facility] [address] [id number] [place] [address]- 4467 May, [facility] [address] [id number] [place] [address]- 4124 May, [facility] [place] [facility] [address] [id number] [place] [address]- 6938 May, [facility] [place] [facility] [address] [id number] [place] [address]- 2006 Mar, [facility] [place] [facility] [address] [id number] [place] [address]- 1652 Mar, [facility] [place] [facility] [address] [id number] [place] [address] 2299 Mar, [facility] [place] [facility] [address] [id number] [place] [address]- 2898 Mar, [facility] [place] [facility] [address] [id number] [place] [address]- 5995 Mar, [facility] [place] [facility] [address] [id number] [place] [address]- 3482 Mar, [facility] [place] [facility] [address] [id number] [place] [address]- 4789 Mar, [facility] [place] [facility] [address] [id number] [place] [address] 2119 Mar, [facility] [place] [facility] [address] [id number] [place] [address] 7532 Jan, [facility] [place] [facility] [address] [id number], [place] [address] Jan, [facility] [place] [facility] [address] [id number] [place] [address]- 0966 Jan, [facility] [place] [facility] [address] [id number] [place] [address]- 2161 Jan, [facility] [place] [facility] [address] [id number] [place] [address]- 9905 Jan, [facility] [place] [facility] [address] [id number] [place] [address]- 9238 Jan, [facility] [address] [id number] [place] [address]- 7796 Jan, [facility] [place] [facility] [address] [id number] [place] [address]- 8315 Dec, [facility] [address] [id number] [place] [address]- 1611 Nov, [facility] [place] [facility] [address] [id number] [place] [address]- 1465 Oct, [facility] [address] [id number] [place] [address]- 9023 Oct, [facility] [place] [facility] [address] [id number] [place] [address] 3047 Sep, [facility] [address] [id number] [place] [address]- 0482 Sep, [facility] [place] [facility] [address] [id number], [place] [address]- 6378 Sep, [facility] [address] [id number] [place] [address] 3940 August, [facility] [address] [id number] [place] [address]- 8732 Jun, [facility] [place] [facility] [address] [id number] [place] [address]- 5066 Jun, [facility] [place] [facility] [address] [id number], [place] [address]- 9315 Jun, [facility] [place] [facility] [address] [id number] [place] [address] Jun, [facility] [place] [facility] [address] [id number], [place] [address]- 7199 Jun, [facility] [place] [facility] [address] [id number], [place] [address]- 8858 Jun, [facility] [place] [facility] [address] [id number] [place] [address]- 9702 07 Jun, 2012 [facility] [address] [id number] [place] [address]- 0782 May, [facility] [address] [id number] [place] [address]- 2165 May, [facility] [place] [facility] [address] [id number] [place] [address]- 7656 May, [facility] [address] [id number] [place] [address]- 5024 May, [facility] [address] [id number] [place] [address]- 9365 May, [facility] [address] [id number] [place] [address]- 5777 May, [facility] [address] [id number] [place] [address]- 7776 May, [facility] [address] [id number] [place] [address]- 2379 Mar, [facility] [address] [id number], [place] [address]- 5784 Mar, [facility] [place] [facility] [address] [id number], [place] [address]- 6737 Mar, [facility] [place] [facility] [address] [id number], [place] [address]- 7192 Mar, [facility] [place] [facility] [address] [id number] [place] [address]- 1331 Mar, [facility] [place] [facility] [address] [id number] [place] [address]- 5450 Mar, [facility] [place] [facility] [address] [id number], [place] [address]- 9991 Mar, [facility] [place] [facility] [address] [id number], [place] [address]- 3087 Mar, [facility] [place] [facility] [address] [id number] [place] [address]- 8016 Mar, [facility] [place] [facility] [address] [id number] [place] [address]- 9297 Mar, [facility] [place] [facility] [address] [facility] [id number] [place] [address]- 1523 Mar, [facility] [place] [facility] [address] [id number] [place] [address]- 9338 Mar, [facility] [place] [facility] [address] [id number] [place] [address], [place] [address]- 2173 Mar, [facility] [place] [facility] [address] [facility] [id number] [place] [address]- 4011 Mar, [facility] [place] [facility] [address] [id number] [address]- 8736 Mar, [facility] [place] [facility] [address] [facility] [id number] [place] [address]- 6717 Mar, [facility] [place] [facility] [address] [facility] [id number] [place] [address]- 1542 Mar, [facility] [place] [facility] [address] [facility] [id number] [place] [address]- 3037 Mar, [facility] [place] [facility] [address] [facility] [id number], [place] [address]- 2562 Mar, [facility] [place] [facility] [address] [facility] [id number], [place] [address]- 5531 Jan, [facility] [place] [facility] [address] [id number], [place] [address]- 1505 Jan, [facility] [place] [facility] [address] [facility] [id number], [place] [address]- 5117 Jan, [facility] [place] [facility] [address] [facility] [id number], [place] [address]- 5200 Jan, [facility] [place] [facility] [id number], [place] [address]- 8941 19 Dec, 2011 [facility] [id number], [place] [address]- 4193 18 Dec, 2011 [facility] [id number], [place] [address]- 5137 Dec, [facility] [id number], [place] [address]- 3925 Nov, [facility] [id number], [place] [address]- 3994 Nov, [facility] [id number], [place] [address]- 0755 Oct, [facility] [id number], [place] [address]- 6115 Oct, [facility] [id number] [place] [address]- 3891 Oct, [facility] [id number], [place] [address]- 6517 Oct, [facility] [id number], [place] [address]- 9423 Oct, [facility] [address] [id number], [place] [address]- 5626 Oct, IMMUNIZATIONS No Known Immunizations SOCIAL HISTORY Never Assessed REASON FOR VISIT Mammo Hx PLAN OF CARE VITAL SIGNS MEDICATIONS Unknown [...]
--- OUTSIDE RECORDS SUMMARY | 2018-05-15 06:04 | XMS REPORT ---
Author Author LAZARA ARGUETA [facility] Address [address] [place] [address] Care Team Providers Care Industrial Economist Name Role Phone LAZARA ARGUETA Unavailable PROBLEMS Type Condition ICD9-CM Code KTH94-JG Code Onset Dates Condition Status SNOMED Code Problem Edema R60.9 Active 012901484 Problem Major depressive disorder, single episode, unspecified F32.9 Active 75403169 Problem Environmental allergies Z91.09 Active 712871633 Problem Obstructive sleep apnea G47.33 Active 55683072 Problem GERD (gastroesophageal reflux disease) K21.9 Active 269033211 Problem Bipolar 1 disorder F31.9 Active 943608123 Problem Mixed hyperlipidemia E78.2 Active 035920244 Problem COPD suggested by initial evaluation J44.9 Active 49771802 Problem Schizoaffective disorder, bipolar type F25.0 Active 79085447 Problem Neuropathy G62.9 Active 724033869 Problem Morbid (severe) obesity due to excess calories E66.01 Active 820943207 Problem Primary osteoarthritis of left knee M17.12 Active 984574662 ALLERGIES No Information ENCOUNTERS Encounter Location Date Diagnosis [facility], [place] [address], [place] [address] May, [facility], [place] [address] [place] [address] 10982- 6489 Mar, [facility], [place] [address], [place] [address] 9999 Mar, [facility], [place] [id number] [place] [address] 43048- 9334 Mar, [facility], [place] [address], [place] [address] 5874 Mar, [facility], [place] [id number] [place] [address] 30478- 8453 Mar, [place] [id number] [place] [address] 34934- 0500 Mar, Screening for breast cancer Z12.31 ; Screening for colon cancer Z12.11 and BMI 45.0-49.9, adult Z68.42 [place] [address] 07854- 5058 15 Mar, 2018 [place] [address] 77601- 0147 Mar, [place] [address] 90381- 1938 Mar, [place] [address] 55005- 9400 Jan, Schizoaffective disorder, bipolar type F25.0 and 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 [place] [address] 29442- 3510 Jan, Prediabetes R73.03 and Mixed hyperlipidemia E78.2 [place] [id number] [place] [address] 87068- 1932 17 Jan, 2018 Obstructive sleep apnea G47.33 ; Primary osteoarthritis of left knee M17.12 ; Prediabetes R73.03 ; Mixed hyperlipidemia E78.2 ; COPD suggested by initial evaluation J44.9 and BMI 45.0-49.9, adult Z68.42 [place] [id number] [place] [address] 68087- 6476 11 Jan, 2018 Encounter for immunization Z23 [place] [id number] [place] [address] 63099- 1811 Jan, [place] [id number] [place] [address] 07002- 0905 Dec, [place] [id number] [place] [address] 76779- 7541 Nov, Obstructive sleep apnea G47.33 and COPD suggested by initial evaluation J44.9 [facility], [place] [address], [place] [address] 7635 Nov, COPD (chronic obstructive pulmonary disease) J44.9 [facility], [place] [id number] [address] 9691 Nov, [facility], [place] [id number] [place] [address] 90248- 0691 Oct, [facility], [place] [id number] [place] [address] 55336- 7684 Oct, [facility], [place] [id number] [place] [address] 20546- 4069 Oct, Other assisted (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 Z79.899 [place] [id number] [place] [address] 05992- 4789 Oct, Schizoaffective disorder, bipolar type F25.0 ; 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 and Other assisted (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 Z79.899 [facility], [place] [id number] [place] [address] 20438- 5701 Oct, Prediabetes R73.03 ; COPD suggested by initial evaluation J44.9 ; BMI 45.0-49.9, adult Z68.42 and Obstructive sleep apnea G47.33 [facility], [place] [address], [place] [address] 2181 Sep, [facility], [place] [id number] [place] [address] 34442- 1665 August, Neuropathy G62.9 [facility], [place] [id number] [place] [address] 57168- 3205 August, [facility], [place] [id number] [place] [address] 56302- 6148 August, [facility], [place] [id number] [place] [address] 28210- 1746 Jul, [place] [address] [place] [address] 45185- 7667 Jul, Primary osteoarthritis of left knee M17.12 [place] [id number] [place] [address] 09279- 3869 Jul, Schizoaffective disorder, bipolar type F25.0 and 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 [place] [id number] [place] [address] 41886- 9890 Jul, Prediabetes R73.03 ; Primary osteoarthritis of left knee M17.12 ; GERD (gastroesophageal reflux disease) K21.9 ; Bipolar 1 disorder F31.9 ; Depression F32.9 ; Environmental allergies Z91.09 ; Neuropathy G62.9 ; Edema R60.9 ; Body mass index (BMI) of 45.0-49.9 in adult Z68.42 and Morbid ( severe) obesity due to excess calories E66.01 [place] [address] [place] [address] 78513- 0515 Jul, [place] [id number] [place] [address] 60925- 5788 Jun, [place] [id number] [place] [address] 48194- 7827 Jun, [place] [id number] [place] [address] 72861- 8949 Jun, Wound of right breast, initial encounter S21.001A and Prediabetes R73.03 [place] [id number] [place] [address] 86985- 6919 Jun, [place] [id number] [place] [address] 79542- 0818 May, GERD (gastroesophageal reflux disease) K21.9 [place] [id number] [place] [address] 86208- 1709 May, Primary osteoarthritis of left knee M17.12 [place] [id number] [place] [address] 52892- 5136 22 May, 2017 Schizoaffective disorder, bipolar type F25.0 and 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 [place] [id number] [place] [address] 49758- 3799 04 May, 2017 Left medial knee pain M25.562 ; GERD (gastroesophageal reflux disease) K21.9 ; Depression F32.9 ; Neuropathy G62.9 ; Obesity E66.9 ; Prediabetes R73.03 and Edema R60.9 [place] [id number] [place] [address] 44439- 0426 14 Mar, 2017 [place] [address] 36124- 4590 08 Mar, 2017 [place] [address] 57918- 1577 05 Mar, 2017 Post-menopausal bleeding N95.0 and BMI 50.0-59.9, adult Z68.43 [place] [id number] [place] [address] 61473- 8051 Mar, [place] [address] 15995- 7946 27 Mar, 2017 Schizoaffective disorder, bipolar type F25.0 and 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 [place] [id number] [place] [address] 59155- 5613 Mar, [place] [id number] [place] [address] 02691- 6313 16 Mar, 2017 [place] [id number] [place] [address] 61895- 6479 10 Mar, 2017 Post-menopausal bleeding N95.0 ; Screening breast examination Z12.31 ; Screen for STD (sexually transmitted disease) Z11.3 ; Obesity E66.9 ; Family history of ovarian cancer Z80.41 and Family history of cervical cancer Z80.49 [place] [id number] [place] [address] 49443- 6455 Mar, [facility], [place] [id number] [place] [address] 42458- 6925 Mar, [facility], [place] [id number] [place] [address] 75475- 7820 Jan, Schizoaffective disorder, bipolar type F25.0 and 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 [facility], [place] [id number] [place] [address] 36440- 2357 Jan, Schizoaffective disorder, bipolar type F25.0 [facility], [place] [id number] [place] [address] 28225- 5298 Jan, [facility], [place] [id number] [place] [address] 82831- 5528 Jan, Prediabetes R73.03 and Obesity E66.9 [facility], [place] [id number] [place] [address] 57783- 4657 Jan, Encounter for immunization Z23 [facility], [place] [id number] [place] [address] 42176- 0261 Jan, [facility], [place] [id number] [place] [address] 26754- 6591 Dec, [facility], [place] [id number] [place] [address] 63283- 6778 Dec, [facility], [place] [id number] [place] [address] 11815- 6257 Nov, Neuropathy G62.9 [facility], [place] [id number] [place] [address] 16794- 3402 Nov, [facility], [place] [id number] [place] [address] 06471- 9423 Nov, Schizoaffective disorder, bipolar type F25.0 [facility], [place] [address] [place] [address] 81177- 0105 Nov, 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.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 and Schizoaffective disorder, bipolar type F25.0 [facility], [place] [id number] [place] [address] 86488- 0643 Oct, Schizoaffective disorder, bipolar type F25.0 ; 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.899 and 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 [facility] [id number] [place] [address] [phone] Oct, Dental caries K02.9 [facility], [place] [address] 77883- 7124 Sep, Neuropathy G62.9 [facility], [place] [address] 60498- 6535 Sep, [facility], [place] [address] 00338- 9268 Sep, Neuropathy G62.9 [facility], [place] [id number] [place] [address] 61926- 3608 Jul, Schizoaffective disorder, depressive type F25.1 [facility], [place] [address] 85622- 3066 Jul, GERD (gastroesophageal reflux disease) K21.9 ; Joint pain of lower extremity M25.50 ; Environmental allergies Z91.09 ; Stress incontinence of urine N39.3 ; Neuropathy G62.9 ; Edema R60.9 and Acute pain of left knee M25.562 [facility], [place] [id number] [place] [address] 68912- 5437 Jun, [facility] [id number] [place] [address] [id number] Jun, Dental examination Z01.20 [facility], [place] [id number] [place] [address] 83451- 2979 Jun, [facility], [place] [address] 94503- 9675 May, [facility], [place] [id number] [place] [address] 69346- 1315 May, Bipolar 1 disorder F31.9 ; Joint pain of lower extremity M25.50 ; Environmental allergies Z91.09 ; Stress incontinence of urine N39.3 ; Major depressive disorder, single episode, unspecified F32.9 ; Dizzy R42 ; Schizoaffective disorder, unspecified F25.9 ; Neuropathy G62.9 ; Localized edema R60.0 and GERD (gastroesophageal reflux disease) K21.9 [place] [id number] [place] [address] 63736- 4139 May, Schizoaffective disorder, depressive type F25.1 [place] [address] 59383- 9220 May, Environmental allergies Z91.09 and Major depressive disorder , single episode, unspecified F32.9 [place] [address] 59190- 5627 Mar, Dental caries K02.9 [place] [address] 23798- 3852 Mar, Dental caries on smooth surface penetrating into pulp K02.63 [facility] [id number] [place] [address] 29303 -7117 Mar, Peripheral edema R60.9 and Dry skin L85.3 [place] [address] 90380- 2262 Mar, [place] [address] 97194- 2636 Mar, Major depressive disorder, single episode, unspecified F32.9 [place] [address] 14154- 9420 Mar, Dental caries K02.9 [place] [address] 26410- 4021 Mar, Diabetes mellitus with complication E11.8 ; Urinary frequency R35.0 ; Stress incontinence of urine N39.3 ; Joint pain of lower extremity M25.50 ; Obesity E66.9 ; Environmental allergies Z91.09 ; Depression F32.9 ; Schizoaffective disorder, unspecified F25.9 ; Vaginal discharge N89.8 and Vaginal candidiasis B37.3 [place] [address] 54168- 1470 Jan, Schizoaffective disorder, unspecified F25.9 [place] [address] 82093- 1382 Jan, [place] [address] 18698- 1820 30 Dec, 2015 [place] [address] 75075- 5185 19 Dec, 2015 Dental caries K02.9 [place] [address] 70314- 0788 14 Dec, 2015 Obesity E66.9 ; Edema R60.9 ; Depression F32.9 ; Bipolar 1 disorder F31.9 ; 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 ; Environmental allergies Z91.09 ; Shortness of breath R06.02 ; Gastroesophageal reflux disease with esophagitis K21.0 ; Other chronic pain G89.29 ; Pain in right knee M25.561 ; Pain in left knee M25.562 and Encounter for immunization Z23 [place] [address] 56163- 2224 Nov, Dental caries K02.9 [place] [address] 58374- 3310 Oct, Schizoaffective disorder, unspecified F25.9 [place] [id number] [place] [address] 03568- 8360 Oct, Dental examination Z01.20 [place] [address] 60861- 5004 Sep, Dental examination Z01.20 and Dental caries K02.9 [facility], [place] [id number] [place] [address] 92624- 6946 Sep, [facility], [place] [id number] [place] [address] 30782- 0511 Sep, [facility], [place] [id number] [place] [address] 84847- 2546 Sep, [facility], [place] [address] 28013- 8292 Sep, Schizoaffective disorder, unspecified F25.9 [place] [address] 73087- 9602 August, Bipolar disorder, unspecified F31.9 [place] [id number] [place] [address] 72418- 1626 Jul, Edema R60.9 and Obesity E66.9 [place] [id number] [place] [address] 85860- 1275 Jul, Edema R60.9 [place] [address] 48064- 5433 Jul, Edema R60.9 [facility] [id number] [place] [address] 69475 -5614 Jul, Edema R60.9 [facility], [place] [id number] [place] [address] 65486- 8721 Jul, [facility], [place] [id number] [place] [address] 46710- 3822 Jul, [facility], [place] [address] 48363- 3387 Jun, Environmental allergies V15.09 and Cough R05 [place] [id number] [place] [address] 71705- 0426 Jun, Environmental allergies V15.09 ; Edema R60.9 and Cough R05 [facility] [id number] [place] [address] 26050 -1737 12 Jun, 2015 Bronchospasm J98.01 [facility], [place] [address] 05113- 3218 10 Jun, 2015 [facility] [place] [address] 54158- 0388 Jun, [facility], [place] [address] 24274- 2661 08 Jun, 2015 Environmental allergies V15.09 ; Bipolar 1 disorder F31.9 ; GERD (gastroesophageal reflux disease) K21.9 ; Depression F32.9 ; Joint pain of lower extremity M25.50 ; COPD (chronic obstructive pulmonary disease) J44.9 and Screening for diabetes mellitus Z13.1 [place] [address] 31515- 7370 Jun, [place] [address] 45451- 0847 May, [place] [address] 23601- 2848 May, Schizoaffective disorder, unspecified F25.9 and Bipolar 1 disorder F31.9 [place] [address] 27350- 0584 May, [place] [address] 59172- 0333 May, URI (upper respiratory infection) J06.9 ; Environmental allergies V15.09 and Cough R05 [place] [address] 38727- 9354 Mar, [place] [address] 01292- 4371 15 Mar, 2015 Vaginal discharge N89.8 [place] [address] 56116- 3446 Mar, Schizoaffective disorder, unspecified F25.9 ; Major depressive disorder, single episode, unspecified F32.9 and Bipolar 1 disorder F31.9 [place] [id number] [place] [address] 54030- 3619 Mar, [place] [id number] [place] [address] 00539- 1663 Mar, Bipolar 1 disorder F31.9 [place] [id number] [place] [address] 77772- 8820 Jan, [place] [address] 69603- 0224 Jan, Allergic rhinitis J30.9 and Cough R05 [place] [address] 32817- 1007 Jan, 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 ; Bipolar 1 disorder F31.9 ; GERD ( gastroesophageal reflux disease) K21.9 ; Depression F32.9 and Joint pain of lower extremity M25.50 [place] [id number] [place] [address] 89879- 0619 28 Dec, 2014 Encounter for immunization Z23 [place] [id number] [place] [address] 10753- 4484 02 Dec, 2014 Schizoaffective disorder, unspecified 295.70 ; Pain in joint , lower leg 719.46 ; Esophageal reflux 530.81 ; Bipolar 1 disorder 296.7 ; Depression 311 ; GERD (gastroesophageal reflux disease) 530.81 and Environmental allergies V15.09 [facility] [address] [place] [address] [phone] Nov, Dental examination V72.2 [place] [address] 97562- 2557 Nov, Acute bronchitis 466.0 [place] [id number] [place] [address] 12118- 8008 Nov, Schizoaffective disorder, unspecified 295.70 and Bipolar disorder, unspecified 296.80 [facility] [id number] [id number] Sep, Dental examination V72.2 [facility] [address] [id number] August, Dental examination V72.2 [facility] [place] [id number] [place] [address] 46218 2546 August, Schizoaffective disorder, unspecified 295.70 [facility], [place] [id number] [place] [address] 55225- 2546 August, [facility] [place] [id number] [place] [address] 91862- 2546 August, Vomiting 787.03 [facility], [place] [id number] [place] [address] 95684 2546 August, Vomiting and diarrhea 787.03 and High risk medication use V58.69 [facility], [place] [address] [address]- 3706 Jul, [facility] [place] [id number] [place] [address] 78908- 0396 Jul, [facility] [place] [address], [place] [address]- 5296 Jul, [facility] [place] [address] [place] [address]- 8106 Jun, [facility] [place] [address] [address]- 2546 Jun, [facility] [place] [id number] [address]- 5256 Jun, [facility] [place] [address] [place] [address]- 2546 Jun, [facility] [place] [address] [place] [address]- 6186 Jun, [facility] [place] [facility] [address] [id number] [place] [address]- 5324 Jun, 2014 [facility] [place] [facility] [address] [id number] [place] [address]- 5686 Jun, 2014 [facility] [place] [facility] [address] [id number] [place] [address] Jun, 2014 [facility] [place] [facility] [address] [id number] [place] [address] Jun, 2014 [facility] [place] [facility] [address] [id number] [place] [address] Mar, [facility] [place] [facility] [address] [id number] [place] [address] Mar, [facility] [place] [facility] [address] [id number] [place] [address] Mar, [facility] [place] [facility] [address] [id number] [place] [address] Mar, [facility] [place] [facility] [address] [id number] [place] [address] Mar, [facility] [place] [facility] [address] [id number] [place] [address] Mar, [facility] [place] [facility] [address] [id number] [place] [address] Mar, [facility] [place] [facility] [address] [id number] [place] [address] Mar, [facility] [place] [facility] [address] [id number] [place] [address] Mar, [facility] [place] [facility] [address] [id number] [place] [address] Mar, [facility] [place] [facility] [address] [id number] [place] [address] Jan, [facility] [place] [facility] [address] [id number] [place] [address] Jan, [facility] [place] [facility] [address] [id number] [place] [address] 31 Jan, 2014 [facility] [place] [facility] [address] [id number] [place] [address] 31 Jan, 2014 [facility] [place] [facility] [address] [id number] [place] [address] 14 Jan, 2014 [facility] [place] [facility] [address] [id number] [place] [address] 14 Jan, 2014 [facility] [place] [facility] [address] [id number] [place] [address] Jan, [facility] [place] [facility] [address] [id number] [place] [address] Jan, [facility] [place] [facility] [address] [id number] [place] [address] 19 Dec, 2013 [facility] [place] [facility] [address] [id number] [place] [address] 19 Sep, 2013 [facility] [place] [facility] [address] [id number] [place] [address] 15 Dec, 2013 [facility] [place] [facility] [address] [id number] [place] [address] 15 Sep, 2013 [facility] [place] [facility] [address] [id number] [place] [address] 15 Sep, 2013 [facility] [place] [facility] [address] [id number] [address] 15 Sep, 2013 [facility] [place] [facility] [address] [id number] [place] [address] 12 Dec, 2013 [facility] [place] [facility] [address] [id number], [place] [address] 12 Dec, 2013 [facility] [place] [facility] [address] [id number], [place] [address] 03 Sep, 2013 [facility] [place] [facility] [address] [id number] [place] [address] Dec, [facility] [place] [facility] [address] [id number] [place] [address] Nov, [facility] [place] [facility] [address] [id number] [place] [address] Nov, [facility] [place] [facility] [address] [id number] [place] [address] Nov, [facility] [place] [facility] [address] [id number] [place] [address] Nov, [facility] [place] [facility] [address] [id number] [place] [address] 8434 Oct, [facility] [place] [facility] [address] [id number] [place] [address]- [address] Oct, [facility] [place] [facility] [address] [id number] [place] [address] Oct, [facility] [place] [facility] [address] [id number] [place] [address] 8735 Oct, [facility] [place] [facility] [address] [id number] [place] [address] Sep, [facility] [place] [facility] [address] [id number] [place] [address]- 6265 Sep, [facility] [place] [facility] [address] [id number] [place] [address] Sep, [facility] [place] [facility] [address] [id number] [place] [address]- [address] Sep, [facility] [place] [facility] [address] [id number] [place] [address] Sep, [facility] [place] [facility] [address] [id number] [place] [address] 8146 Sep, [facility] [place] [facility] [address] [id number] [place] [address]- 2836 Sep, [facility] [place] [facility] [address] [id number] [place] [address]- 3966 Sep, [facility] [place] [facility] [address] [id number] [place] [address] August, [facility] [place] [facility] [address] [id number] [place] [address]- [address]131 August, [facility] [place] [facility] [address] [id number] [place] [address]- [address]48 Jul, [facility] [place] [facility] [address] [id number] [place] [address]- [address] Jul, [facility] [place] [facility] [address] [id number] [place] [address]- [address] Jul, [facility] [place] [facility] [address] [id number] [place] [address]- [address] Jul, [facility] [place] [facility] [address] [id number] [place] [address]- 7788 Jul, [facility] [place] [facility] [address] [id number] [place] [address]- 1197 Jul, [facility] [place] [facility] [address] [id number] [place] [address]- 8902 Jul, [facility] [place] [facility] [address] [id number] [place] [address]- 45[address] Jul, [facility] [place] [facility] [address] [id number], [place] [address] Jul, [facility] [place] [facility] [address] [id number] [place] [address]- 0416 Jul, [facility] [place] [facility] [address] [id number] [place] [address]- 395[address] Jun, [facility] [place] [facility] [address] [id number] [place] [address]- [address]32 Jun, [facility] [place] [facility] [address] [id number] [place] [address]- 3089 18 Jun, 2013 [facility] [place] [facility] [address] [id number] [place] [address]- 2026 18 Jun, 2013 [facility] [place] [facility] [address] [id number] [place] [address]- 4816 17 Jun, 2013 [facility] [place] [facility] [address] [id number] [place] [address]- 5446 17 Jun, 2013 [facility] [place] [facility] [address] [id number] [place] [address]- 6951 17 Jun, 2013 [facility] [place] [facility] [address] [id number] [place] [address]- 4825 17 Jun, 2013 [facility] [place] [facility] [address] [id number] [place] [address]- 0689 14 Jun, 2013 [facility] [place] [facility] [address] [id number] [place] [address]- 0813 14 Jun, 2013 [facility] [place] [facility] [address] [id number] [place] [address]- [address]69 07 Jun, 2013 [facility] [place] [facility] [address] [id number] [place] [address]- 8[address] 07 Jun, 2013 [facility] [place] [facility] [address] [id number] [place] [address]- 2834 Jun, [facility] [place] [facility] [address] [id number] [place] [address]- 5168 Jun, [facility] [place] [facility] [address] [id number] [place] [address]- 6779 Jun, [facility] [place] [facility] [address] [id number] [place] [address]- 0046 Jun, [facility] [place] [facility] [address] [id number] [place] [address]- [address]16 May, [facility] [place] [facility] [address] [id number] [place] [address]- 0290 May, [facility] [address] [id number] [place] [address]- 7012 May, [facility] [place] [facility] [address] [id number] [place] [address]- 1003 May, [facility] [place] [facility] [address] [id number] [place] [address]- 2990 Mar, [facility] [place] [facility] [address] [id number] [place] [address]- 6[address] Mar, [facility] [place] [facility] [address] [id number] [place] [address]- 6652 Mar, [facility] [place] [facility] [address] [id number] [place] [address]- 1043 Mar, [facility] [place] [facility] [address] [id number] [place] [address]- 7394 Mar, [facility] [place] [facility] [address] [id number] [place] [address]- 9266 Mar, [facility] [place] [facility] [address] [id number] [place] [address]- 9447 Mar, [facility] [place] [facility] [address] [id number] [place] [address]- 9982 Mar, [facility] [place] [facility] [address] [id number] [place] [address]- 5804 Jan, [facility] [place] [facility] [address] [id number], [place] [address] Jan, [facility] [place] [facility] [address] [id number] [place] [address]- 8336 Jan, [facility] [place] [facility] [address] [id number] [place] [address]- 0667 Jan, [facility] [place] [facility] [address] [id number] [place] [address]- 265[address] Jan, [facility] [place] [facility] [address] [id number] [place] [address]- 2784 Jan, [facility] [address] [id number] [place] [address]- 4580 Jan, [facility] [place] [facility] [address] [id number] [place] [address]- 4140 Dec, [facility] [address] [id number] [place] [address]- 0540 Nov, [facility] [place] [facility] [address] [id number] [place] [address]- 9873 Oct, [facility] [address] [id number] [place] [address]- 1024 Oct, [facility] [place] [facility] [address] [id number] [place] [address]- 0402 Sep, [facility] [address] [id number] [place] [address]- 2383 Sep, [facility] [place] [facility] [address] [id number], [place] [address]- 8642 Sep, [facility] [address] [id number] [place] [address]- 4009 August, [facility] [address] [id number] [place] [address]- 2532 Jun, [facility] [place] [facility] [address] [id number] [place] [address]- 2967 Jun, [facility] [place] [facility] [address] [id number], [place] [address]- 8340 Jun, [facility] [place] [facility] [address] [id number] [place] [address] Jun, [facility] [place] [facility] [address] [id number], [place] [address]- 6415 Jun, [facility] [place] [facility] [address] [id number], [place] [address]- 0352 Jun, [facility] [place] [facility] [address] [id number] [place] [address]- 4356 07 Jun, 2012 [facility] [address] [id number] [place] [address]- 4346 May, [facility] [address] [id number] [place] [address]- 3893 May, [facility] [place] [facility] [address] [id number] [place] [address]- 9972 May, [facility] [address] [id number] [place] [address]- 1330 May, [facility] [address] [id number] [place] [address]- 4488 May, [facility] [address] [id number] [place] [address]- 0826 May, [facility] [address] [id number] [place] [address]- 5692 May, [facility] [address] [id number] [place] [address]- 7499 Mar, [facility] [address] [id number], [place] [address]- 4699 Mar, [facility] [place] [facility] [address] [id number], [place] [address]- 9544 Mar, [facility] [place] [facility] [address] [id number], [place] [address]- 7926 Mar, [facility] [place] [facility] [address] [id number] [place] [address]- 6479 Mar, [facility] [place] [facility] [address] [id number] [place] [address]- 6176 Mar, [facility] [place] [facility] [address] [id number], [place] [address]- 3603 Mar, [facility] [place] [facility] [address] [id number], [place] [address]- 5744 Mar, [facility] [place] [facility] [address] [id number] [place] [address]- 7207 Mar, [facility] [place] [facility] [address] [id number] [place] [address]- 9039 Mar, [facility] [place] [facility] [address] [facility] [id number] [place] [address]- 3618 Mar, [facility] [place] [facility] [address] [id number] [place] [address]- 8632 Mar, [facility] [place] [facility] [address] [id number] [place] [address], [place] [address]- 7230 Mar, [facility] [place] [facility] [address] [facility] [id number] [place] [address]- 6700 Mar, [facility] [place] [facility] [address] [id number] [place] [address]- 7375 Mar, [facility] [place] [facility] [address] [facility] [id number] [place] [address]- 4013 Mar, [facility] [place] [facility] [address] [facility] [id number] [place] [address]- 9241 Mar, [facility] [place] [facility] [address] [facility] [id number] [place] [address]- 9887 Mar, [facility] [place] [facility] [address] [facility] [id number], [place] [address]- 3035 Mar, [facility] [place] [facility] [address] [facility] [id number], [place] [address]- 9696 Jan, [facility] [place] [facility] [address] [id number], [place] [address]- 4276 Jan, [facility] [place] [facility] [address] [facility] [id number], [place] [address]- 9975 Jan, [facility] [place] [facility] [address] [facility] [id number], [place] [address]- 4073 Jan, [facility] [place] [facility] [id number], [place] [address] 4[address] 19 Dec, 2011 [facility] [place] [id number], [place] [address]- 9904 18 Dec, 2011 [facility] [place] [id number], [place] [address]- 9543 Dec, [facility] [place] [id number], [place] [address]- 4992 Nov, [facility] [place] [id number], [place] [address]- 6614 Nov, [facility] [place] [id number], [place] [address]- 8322 Oct, [facility] [place] [id number], [place] [address]- 6545 Oct, [facility] [place] [id number] [place] [address]- 6866 Oct, [facility] [place] [id number], [place] [address]- 0458 Oct, [facility] [place] [id number], [place] [address]- 4709 Oct, [facility] [place] [address] [id number], [place] [address]- 3726 Oct, IMMUNIZATIONS No Known Immunizations SOCIAL HISTORY Never Assessed REASON FOR VISIT Routine nurse call PLAN OF CARE VITAL SIGNS MEDICATIONS [...]
--- OUTSIDE RECORDS SUMMARY | 2018-05-15 06:04 | XMS REPORT ---
Author Author LAZARA ARGUETA [facility] Address [address] [place] [address] Care Team Providers Care Outside Salesman Name Role Phone LAZARA ARGUETA Unavailable PROBLEMS Type Condition ICD9-CM Code [id number] Code Onset Dates Condition Status SNOMED Code Problem Edema R60.9 Active 853781929 Problem Major depressive disorder, single episode, unspecified F32.9 Active 98427552 Problem Environmental allergies Z91.09 Active 595928871 Problem Obstructive sleep apnea G47.33 Active 46636976 Problem GERD (gastroesophageal reflux disease) K21.9 Active 039174031 Problem Bipolar 1 disorder F31.9 Active 309493057 Problem Mixed hyperlipidemia E78.2 Active 897117545 Problem COPD suggested by initial evaluation J44.9 Active 39495602 Problem Schizoaffective disorder, bipolar type F25.0 Active 00201133 Problem Neuropathy G62.9 Active 446404982 Problem Morbid (severe) obesity due to excess calories E66.01 Active 904352532 Problem Primary osteoarthritis of left knee M17.12 Active 688282410 ALLERGIES No Information ENCOUNTERS Encounter Location Date Diagnosis [facility] [address] [address] May, [facility] [address] [place] [address] 29917- 5025 Mar, [facility] [address] [place] [address] 39272- 8855 Mar, [facility] [id number] [place] [address] 02257- 7494 Mar, [facility] [address] [address] 3094 Mar, Screening for breast cancer Z12.31 ; Screening for colon cancer Z12.11 and BMI 45.0-49.9, adult Z68.42 [facility] [id number] [place] [address] 05684- 6158 15 Mar, 2018 [facility] [id number] [place] [address] 88355- 5989 Mar, [facility] [id number] [place] [address] 50474- 9871 Mar, [facility] [address] 52776- 0557 Jan, Schizoaffective disorder, bipolar type F25.0 and 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 [facility] [address] 66407- 9445 Jan, Prediabetes R73.03 and Mixed hyperlipidemia E78.2 [facility] [address] 09724- 2877 Jan, Obstructive sleep apnea G47.33 ; Primary osteoarthritis of left knee M17.12 ; Prediabetes R73.03 ; Mixed hyperlipidemia E78.2 ; COPD suggested by initial evaluation J44.9 and BMI 45.0-49.9, adult Z68.42 [facility] [id number] [place] [address] 27918- 2721 11 Jan, 2018 Encounter for immunization Z23 [facility] [id number] [place] [address] 35544- 9126 Jan, [facility] [id number] [place] [address] 10783- 2102 Dec, [facility] [id number] [place] [address] 48631- 3409 Nov, Obstructive sleep apnea G47.33 and COPD suggested by initial evaluation J44.9 [facility] [id number] [place] [address] 21705- 6140 Nov, COPD (chronic obstructive pulmonary disease) J44.9 [facility] [address] [address] 6006 Nov, [facility] [id number] [place] [address] 58992- 4307 Oct, [facility] [id number] [place] [address] 89459- 9426 Oct, [facility] [id number] [place] [address] 34154- 3119 Oct, Other terminal gauger (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 Z79.899 [facility] [id number] [place] [address] 00126- 7090 Oct, Schizoaffective disorder, bipolar type F25.0 ; 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 and Other terminal gauger (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 Z79.899 [facility] [id number] [place] [address] 48062- 4171 Oct, Prediabetes R73.03 ; COPD suggested by initial evaluation J44.9 ; BMI 45.0-49.9, adult Z68.42 and Obstructive sleep apnea G47.33 [facility] [id number] [place] [address] 32421- 8982 Sep, [facility] [id number] [place] [address] 46159- 7157 August, Neuropathy G62.9 [facility] [id number] [place] [address] 45184- 2179 August, [facility] [id number] [place] [address] 78965- 4768 August, [facility] [id number] [place] [address] 33384- 2306 Jul, [facility] [id number] [place] [address] 28088- 6191 Jul, Primary osteoarthritis of left knee M17.12 [facility] [id number] [place] [address] 85715- 4852 Jul, Schizoaffective disorder, bipolar type F25.0 and 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 [facility] [address] 91126- 4767 Jul, Prediabetes R73.03 ; Primary osteoarthritis of left knee M17.12 ; GERD (gastroesophageal reflux disease) K21.9 ; Bipolar 1 disorder F31.9 ; Depression F32.9 ; Environmental allergies Z91.09 ; Neuropathy G62.9 ; Edema R60.9 ; Body mass index (BMI) of 45.0-49.9 in adult Z68.42 and Morbid ( severe) obesity due to excess calories E66.01 [facility] [address] 43762- 3940 Jul, [facility] [address] 84746- 0789 Jun, [facility] [address] 50785- 2928 Jun, [facility] [address] 54100- 0819 Jun, Wound of right breast, initial encounter S21.001A and Prediabetes R73.03 [facility] [id number] [place] [address] 55913- 8692 Jun, [facility] [address] 05149- 2096 May, GERD (gastroesophageal reflux disease) K21.9 [facility] [id number] [place] [address] 58566- 3899 May, Primary osteoarthritis of left knee M17.12 [facility] [id number] [place] [address] 40348- 7867 May, Schizoaffective disorder, bipolar type F25.0 and 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 [facility] [address] 08246- 3450 May, Left medial knee pain M25.562 ; GERD (gastroesophageal reflux disease) K21.9 ; Depression F32.9 ; Neuropathy G62.9 ; Obesity E66.9 ; Prediabetes R73.03 and Edema R60.9 [facility] [address] 56424- 9569 14 Mar, [address] 46113- 2401 Mar, [address] 91638- 7958 Mar, Post-menopausal bleeding N95.0 and BMI 50.0-59.9, adult Z68.[address] 18958- 2480 Mar, [address] 51558- 8898 Mar, Schizoaffective disorder, bipolar type F25.0 and 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 54099- 1965 Mar, [address] 21344- 7705 Mar, [address] 18504- 6762 Mar, Post-menopausal bleeding N95.0 ; Screening breast examination Z12.31 ; Screen for STD (sexually transmitted disease) Z11.3 ; Obesity E66.9 ; Family history of ovarian cancer Z80.41 and Family history of cervical cancer Z80.[address] 44310- 8176 Mar, [address] 00179- 3217 Mar, [address] 54926- 4404 Jan, Schizoaffective disorder, bipolar type F25.0 and 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 [facility] [id number] [place] [address] 91012- 9979 Jan, Schizoaffective disorder, bipolar type F25.0 [facility] [id number] [place] [address] 36086- 5054 Jan, [facility] [id number] [place] [address] 43817- 3657 Jan, Prediabetes R73.03 and Obesity E66.9 [facility] [id number] [place] [address] 25539- 1743 Jan, Encounter for immunization Z23 [facility] [id number] [place] [address] 13023- 9276 Jan, [facility] [id number] [place] [address] 50693- 2992 Dec, [facility] [id number] [place] [address] 08445- 2621 Dec, [facility] [id number] [place] [address] 36351- 6797 Nov, Neuropathy G62.9 [facility] [id number] [place] [address] 52594- 7955 Nov, [facility] [id number] [place] [address] 03568- 1479 Nov, Schizoaffective disorder, bipolar type F25.0 [facility] [id number] [place] [address] 95300- 0119 Nov, Other terminal gauger (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 Z79.899 and Schizoaffective disorder, bipolar type F25.0 [facility] [address] [address]- 0404 Oct, Schizoaffective disorder, bipolar type F25.0 ; Other half-way (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 Z79.899 and 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 [facility] [id number] [place] [address] [id number] Oct, Dental caries K02.9 [facility] [id number] [place] [address] 95705- 0813 Sep, Neuropathy G62.9 [facility] [address] 74439- 8389 Sep, [facility] [id number] [place] [address] 31434- 7362 Sep, Neuropathy G62.9 [facility] [id number] [place] [address] 15179- 0442 Jul, Schizoaffective disorder, depressive type F25.1 [facility] [address] 86872- 3384 Jul, GERD (gastroesophageal reflux disease) K21.9 ; Joint pain of lower extremity M25.50 ; Environmental allergies Z91.09 ; Stress incontinence of urine N39.3 ; Neuropathy G62.9 ; Edema R60.9 and Acute pain of left knee M25.562 [facility] [id number] [place] [address] 31574- 7975 Jun, [facility] [id number] [place] [address] [id number] Jun, Dental examination Z01.20 [facility] [id number] [place] [address] 11672- 4775 Jun, [facility] [id number] [place] [address] 92396- 3765 May, [facility] [id number] [place] [address] 25052- 4467 May, Bipolar 1 disorder F31.9 ; Joint pain of lower extremity M25.50 ; Environmental allergies Z91.09 ; Stress incontinence of urine N39.3 ; Major depressive disorder, single episode, unspecified F32.9 ; Dizzy R42 ; Schizoaffective disorder, unspecified F25.9 ; Neuropathy G62.9 ; Localized edema R60.0 and GERD (gastroesophageal reflux disease) K21.9 [facility] [id number] [place] [address] 50968- 3866 May, Schizoaffective disorder, depressive type F25.1 [facility] [address] 65926- 6664 May, Environmental allergies Z91.09 and Major depressive disorder , single episode, unspecified F32.9 [facility] [address] 57265- 3375 Mar, Dental caries K02.9 [facility] [address] 76074- 3906 Mar, Dental caries on smooth surface penetrating into pulp K02.63 [facility] [address] 42408 -7307 Mar, Peripheral edema R60.9 and Dry skin L85.3 [facility] [address] 14985- 4728 Mar, [facility] [address] 07436- 4780 Mar, Major depressive disorder, single episode, unspecified F32.9 [facility] [id number] [place] [address] 96061- 3168 Mar, Dental caries K02.9 [facility] [address] 36970- 2878 07 Mar, 2016 Diabetes mellitus with complication E11.8 ; Urinary frequency R35.0 ; Stress incontinence of urine N39.3 ; Joint pain of lower extremity M25.50 ; Obesity E66.9 ; Environmental allergies Z91.09 ; Depression F32.9 ; Schizoaffective disorder, unspecified F25.9 ; Vaginal discharge N89.8 and Vaginal candidiasis B37.3 [facility] [address] 04957- 0847 Jan, Schizoaffective disorder, unspecified F25.9 [facility] [address] 54308- 8401 17 Jan, 2016 [facility] [address] 13725- 3531 30 Dec, 2015 [facility] [address] 53927- 7241 19 Dec, 2015 Dental caries K02.9 [facility] [address] 90904- 6868 14 Dec, 2015 Obesity E66.9 ; Edema R60.9 ; Depression F32.9 ; Bipolar 1 disorder F31.9 ; 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 ; Environmental allergies Z91.09 ; Shortness of breath R06.02 ; Gastroesophageal reflux disease with esophagitis K21.0 ; Other chronic pain G89.29 ; Pain in right knee M25.561 ; Pain in left knee M25.562 and Encounter for immunization Z23 [facility] [address] 41801- 9606 08 Nov, 2015 Dental caries K02.9 [facility] [address] 32333- 0857 Oct, Schizoaffective disorder, unspecified F25.9 [facility] [id number] [place] [address] 21087- 7759 12 Oct, 2015 Dental examination Z01.20 [facility] [address] 95847- 8890 Sep, Dental examination Z01.20 and Dental caries K02.9 [facility] [address] 01935- 7202 13 Sep, 2015 [facility] [address] [place] [address]- 5714 Sep, [facility] [address] 09413- 6782 Sep, [facility] [address] 15944- 5083 Sep, Schizoaffective disorder, unspecified F25.9 [facility] [address] 84909- 5631 August, Bipolar disorder, unspecified F31.9 [facility] [address] 64560- 6311 Jul, Edema R60.9 and Obesity E66.9 [facility] [address] 39249- 3910 Jul, Edema R60.9 [facility] [address] 21502- 4773 Jul, Edema R60.9 [facility] [address] 98124 -8754 Jul, Edema R60.9 [facility] [address] 56578- 8906 Jul, [facility] [address] 56499- 2863 Jul, [facility] [address] 94348- 3659 24 Jun, 2015 Environmental allergies V15.09 and Cough R05 [facility] [address] 30253- 2749 17 Jun, 2015 Environmental allergies V15.09 ; Edema R60.9 and Cough R05 [facility] [id number] [place] [address] 19512 -8550 12 Jun, 2016 Bronchospasm J98.01 [facility] [address] 59306- 7514 10 Jun, 2015 [facility] [id number] [place] [address] 80106- 6794 Jun, [facility] [address] [id number]- 6730 Jun, Environmental allergies V15.09 ; Bipolar 1 disorder F31.9 ; GERD (gastroesophageal reflux disease) K21.9 ; Depression F32.9 ; Joint pain of lower extremity M25.50 ; COPD (chronic obstructive pulmonary disease) J44.9 and Screening for diabetes mellitus Z13.1 [facility] [address] 87559- 4235 Jun, [facility] [address] 14886- 2819 May, [facility] [address] 96078- 5179 May, Schizoaffective disorder, unspecified F25.9 and Bipolar 1 disorder F31.9 [facility] [id number] [place] [address] 90332- 0276 May, [facility] [address] 63018- 2882 May, URI (upper respiratory infection) J06.9 ; Environmental allergies V15.09 and Cough R05 [facility] [id number] [place] [address] 11818- 5143 18 Mar, 2015 [facility] [id number] [place] [address] 23775- 3308 15 Mar, 2015 Vaginal discharge N89.8 [facility] [address] 04420- 3240 14 Mar, 2015 Schizoaffective disorder, unspecified F25.9 ; Major depressive disorder, single episode, unspecified F32.9 and Bipolar 1 disorder F31.9 [facility] [address] 81171- 8850 Mar, [facility] [id number] [place] [address] 10073- 6433 Mar, Bipolar 1 disorder F31.9 [facility] [id number] [place] [address] 13517- 8970 Jan, [facility] [address] 64971- 0460 Jan, Allergic rhinitis J30.9 and Cough R05 [facility] [address] 48889- 1782 Jan, 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 ; Bipolar 1 disorder F31.9 ; GERD ( gastroesophageal reflux disease) K21.9 ; Depression F32.9 and Joint pain of lower extremity M25.[address] 04805- 1635 Dec, Encounter for immunization Z23 [address] 91204- 7169 Dec, Schizoaffective disorder, unspecified 295.70 ; Pain in joint , lower leg 719.46 ; Esophageal reflux 530.81 ; Bipolar 1 disorder 296.7 ; Depression 311 ; GERD (gastroesophageal reflux disease) 530.81 and Environmental allergies V15.09 [facility] [address] [id number] Nov, Dental examination V72.2 [facility] [id number] [place] [address] 97099- 8177 Nov, Acute bronchitis 466.[address] 98072- 8009 Nov, Schizoaffective disorder, unspecified 295.70 and Bipolar disorder, unspecified 296.80 [facility] [id number] [place] [address] [id number] Sep, Dental examination V72.2 [facility] [address] [id number] August, Dental examination V72.2 [facility] [address] [address]- 9706 August, Schizoaffective disorder, unspecified 295.70 [facility] [id number] [address]- 2546 August, [facility] [id number] [place] [address] 55520- 2546 August, Vomiting 787.03 [facility] [id number] [place] [address] 77690- 7216 August, Vomiting and diarrhea 787.03 and High risk medication use V58.69 [facility] [id number] [place] [address] 76428- 2546 30 Jul, 2014 [facility] [id number] [place] [address] 04434- 5866 Jul, [facility] [address] [address]- 4086 Jul, [facility] [id number] [place] [address] 06758- 2986 Jun, [facility] [address] [address]- 0156 Jun, [facility] [address] [address]- 2386 Jun, [facility] [address] [address]- 2546 Jun, [facility] [address] [address]- 6286 16 Jun, 2014 [facility] [address] [address]- 2546 Jun, [facility] [address] [address]- 4996 Jun, [facility] [place] [facility] [address] [id number] [place] [address]- 4700 Jun, [facility] [place] [facility] [address] [id number] [place] [address]- 1973 Jun, [facility] [place] [facility] [address] [id number] [place] [address]- 7510 Mar, [facility] [place] [facility] [address] [id number] [place] [address]- 0845 Mar, [facility] [place] [facility] [address] [id number] [place] [address]- 8845 Mar, [facility] [place] [facility] [address] [id number] [place] [address]- 7919 Mar, [facility] [place] [facility] [address] [id number] [place] [address]- 0234 Mar, [facility] [place] [facility] [address] [id number] [place] [address]- 6992 Mar, [facility] [place] [facility] [address] [id number] [place] [address]- 8108 Mar, [facility] [place] [facility] [address] [facility] [id number] [place] [address]- 3892 Mar, [facility] [place] [facility] [address] [id number] [place] [address]- 1586 Mar, [facility] [place] [facility] [address] [id number] [address]- 1366 Mar, [facility] [place] [facility] [address] [id number] [place] [address]- 4306 Jan, [facility] [place] [facility] [address] [id number] [place] 6654 Jan, [facility] [place] [facility] [address] [facility] [id number] [place] 0355 Jan, [facility] [place] [facility] [address] [id number] [place] [address]- 8247 31 Jan, 2014 [facility] [place] [facility] [address] [id number] [place] [address]- 7324 14 Jan, 2014 [facility] [place] [facility] [address] [id number] [place] [address]- 8306 14 Jan, 2014 [facility] [place] [facility] [address] [id number] [place] [address]- 5107 09 Jan, 2014 [facility] [place] [facility] [address] [id number] [place] [address]- 8986 09 Jan, 2014 [facility] [place] [facility] [address] [id number] [place] [address]- 9646 19 Dec, 2013 [facility] [place] [facility] [address] [id number] [place] [address]- 2392 19 Dec, 2013 [facility] [place] [facility] [address] [id number] [place] [address]- 6464 15 Dec, 2013 [facility] [place] [facility] [address] [id number] [place] [address]- 5688 15 Dec, 2013 [facility] [place] [facility] [address] [id number] [place] [address]- 5477 15 Dec, 2013 [facility] [place] [facility] [address] [id number] [place] [address]- 7207 15 Dec, 2013 [facility] [place] [facility] [address] [id number] [place] [address]- 8818 12 Dec, 2013 [facility] [place] [facility] [address] [id number] [address]- 25[address] 12 Dec, 2013 [facility] [place] [facility] [address] [id number] [place] [address] 03 Dec, 2013 [facility] [place] [facility] [address] [id number] [place] [address] 03 Dec, 2013 [facility] [place] [facility] [address] [id number] [place] [address] Nov, [facility] [place] [facility] [address] [id number] [place] [address] Nov, [facility] [place] [facility] [address] [id number] [place] [address] Nov, [facility] [place] [facility] [address] [id number] [place] [address] Nov, [facility] [place] [facility] [address] [id number] [place] [address] Oct, [facility] [place] [facility] [address] [id number] [place] [address] Oct, [facility] [place] [facility] [address] [id number] [place] [address] Oct, [facility] [place] [facility] [address] [id number] [place] [address] Oct, [facility] [place] [facility] [address] [id number] [place] [address] Sep, [facility] [place] [facility] [address] [id number] [place] [address] Sep, [facility] [place] [facility] [address] [id number] [place] [address]- [address] Sep, [facility] [place] [facility] [address] [id number] [place] [address]- [address] Sep, [facility] [place] [facility] [address] [id number] [place] [address] Sep, [facility] [place] [facility] [address] [id number] [place] [address] Sep, [facility] [place] [facility] [address] [id number] [place] [address] Sep, [facility] [place] [facility] [address] [id number] [place] [address] Sep, [facility] [place] [facility] [address] [id number] [place] [address] August, [facility] [place] [facility] [address] [id number] [place] [address] August, [facility] [place] [facility] [address] [id number] [place] [address] Jul, [facility] [place] [facility] [address] [id number] [place] [address] Jul, [facility] [place] [facility] [address] [id number] [place] [address]- [address] Jul, [facility] [place] [facility] [address] [id number] [place] [address] Jul, [facility] [place] [facility] [address] [id number] [place] [address] Jul, [facility] [place] [facility] [address] [id number] [place] [address] Jul, [facility] [place] [facility] [address] [id number] [place] [address] Jul, [facility] [place] [facility] [address] [id number] [place] [address] Jul, [facility] [place] [facility] [address] [id number] [place] [address] Jul, [facility] [place] [facility] [address] [id number] [place] [address] Jul, [facility] [place] [facility] [address] [id number] [address] Jun, [facility] [place] [facility] [address] [id number] [place] [address] Jun, [facility] [place] [facility] [address] [id number] [place] [address] Jun, [facility] [place] [facility] [address] [id number] [place] [address] Jun, [facility] [place] [facility] [address] [id number] [place] [address] 17 Jun, 2013 [facility] [place] [facility] [address] [id number] [place] [address] 17 Jun, 2013 [facility] [place] [facility] [address] [id number] [place] [address] 17 Jun, 2013 [facility] [place] [facility] [address] [id number] [place] [address] 17 Jun, 2013 [facility] [place] [facility] [address] [id number] [place] [address] 14 Jun, 2013 [facility] [place] [facility] [address] [id number] [place] [address]13 14 Jun, 2013 [facility] [place] [facility] [address] [id number] [place] [address] Jun, [facility] [place] [facility] [address] [id number] [place] [address] Jun, [facility] [place] [facility] [address] [id number] [place] [address] Jun, [facility] [place] [facility] [address] [id number] [place] [address] Jun, [facility] [place] [facility] [address] [id number] [place] [address] Jun, [facility] [place] [facility] [address] [id number] [place] [address] Jun, [facility] [place] [facility] [address] [id number] [place] [address] May, [facility] [place] [facility] [address] [id number] [place] [address] 1976 May, [facility] [place] [facility] [address] [id number] [place] [address] May, [facility] [place] [facility] [address] [id number] [place] [address]- 4270 May, [facility] [place] [facility] [address] [id number] [place] [address]104 Mar, [facility] [place] [facility] [address] [id number] [place] [address]107 Mar, [facility] [place] [facility] [address] [id number] [place] [address]103 Mar, [facility] [place] [facility] [address] [id number] [place] [address] Mar, [facility] [place] [facility] [address] [id number] [place] [address]- 9703 Mar, [facility] [place] [facility] [address] [id number] [place] [address]- [address] Mar, [facility] [place] [facility] [address] [id number] [place] [address]- 3310 Mar, [facility] [place] [facility] [address] [id number] [place] [address]- [address]201 Mar, [facility] [place] [facility] [address] [id number] [place] [address] 48[address] Jan, [facility] [place] [facility] [address] [id number] [address] Jan, [facility] [place] [facility] [address] [id number] [place] [address] Jan, [facility] [place] [facility] [address] [id number] [place] [address] Jan, [facility] [place] [facility] [address] [id number] [place] [address] 1629 Jan, [facility] [place] [facility] [address] [id number] [place] [address] 14[address] Jan, [facility] [place] [facility] [address] [id number] [place] [address] Jan, [facility] [place] [facility] [address] [id number] [place] [address]- [address]183 09 Dec, 2012 [facility] [address] [id number] [place] [address] Nov, [facility] [place] [facility] [address] [id number] [place] [address] 8665 Oct, [facility] [address] [id number] [place] [address]- [address]151 Oct, [facility] [address] [id number] [place] [address] Sep, [facility] [address] [id number] [place] [address]76 Sep, [facility] [address] [id number] [place] [address]- 4[address] Sep, [facility] [address] [id number] [place] [address]- [address] August, [facility] [address] [id number] [place] [address] Jun, [facility] [address] [id number] [place] [address]- [address]278 Jun, [facility] [address] [facility] [id number] [place] [address]- 94[address] Jun, [facility] [place] [facility] [address] [id number] [place] [address]- 6664 15 Jun, 2012 [facility] [place] [facility] [address] [id number] [place] [address] Jun, [facility] [place] [facility] [address] [id number] [place] [address]- [address]20 Jun, [facility] [place] [facility] [address] [id number] [place] [address]- [address]126 07 Jun, 2012 [facility] [place] [facility] [address] [id number] [place] [address] 8657 May, [facility] [address] [id number] [place] [address] 6743 May, [facility] [address] [id number] [place] [address]- 1382 May, [facility] [place] [facility] [address] [id number] [place] [address]- 9850 May, [facility] [place] [facility] [address] [id number] [place] [address]- 4956 May, [facility] [address] [id number] [place] [address]- 0241 May, [facility] [address] [id number] [place] [address]- 8356 May, [facility] [address] [id number] [place] [address]- 7745 Mar, [facility] [address] [id number] [place] [address]- 1896 Mar, [facility] [place] [facility] [address] [id number] [place] [address]- 7370 Mar, [facility] [address] [id number] [address] Mar, [facility] [place] [facility] [address] [facility] [id number] [place] [address]- [address] Mar, [facility] [place] [facility] [address] [id number] [place] [address] Mar, [facility] [place] [facility] [address] [id number] [place] [address]- 7612 Mar, [facility] [place] [facility] [address] [id number] [place] [address]- 1846 Mar, [facility] [place] [facility] [address] [id number] [place] [address] Mar, [facility] [place] [facility] [address] [id number] [place] [address]- [address]953 Mar, [facility] [place] [facility] [address] [id number] [place] [address]- 9598 Mar, [facility] [place] [facility] [address] [id number] [place] [address]- 2257 Mar, [facility] [place] [facility] [address] [facility] [id number] [place] [address]- 1116 Mar, [facility] [place] [facility] [address] [id number] [place] [address]- 9201 Mar, [facility] [place] [facility] [address] [id number] [place] [address], [place] [address]- [address]15 Mar, [facility] [place] [facility] [address] [facility] [id number] [place] [address]- 8327 Mar, [facility] [place] [facility] [address] [id number] [place] [address]- [address]54 Mar, [facility] [place] [facility] [address] [facility] [id number] [place] [address]- 1015 Mar, [facility] [place] [facility] [address] [facility] [id number] [place] [address]- 6468 Mar, [facility] [place] [facility] [address] [facility] [id number] [place] [address]- [address] Jan, [facility] [place] [facility] [address] [facility] [id number] [place] [address]- 0469 Jan, [facility] [place] [facility] [address] [facility] [id number] [place] [address]- 9318 Jan, [facility] [place] [facility] [address] [facility] [id number] [place] [address]- 0692 Jan, [facility] [place] [facility] [address] [facility] [id number] [place] [address]- [address] Dec, [facility] [place] [facility] [address] [facility] [id number] [place] [address]- [address] 18 Dec, 2011 [facility] [place] [facility] [address] [id number] [address] Dec, [facility] [id number] [address] 74[address] Nov, [facility] [id number] [address] Nov, [facility] [id number] [address]- 2575 Oct, [facility] [id number] [address] 1236 Oct, [facility] [id number] [address]- 8772 Oct, [facility] [id number] [address]93 Oct, [facility] [id number] [address]- [address]169 Oct, [facility] [address] [id number] [address] 9888 Oct, IMMUNIZATIONS No Known Immunizations SOCIAL HISTORY [...] Surgical History right knee arthroscopy x2 2004, 2007 Hospitalization History surgery Hospitalization History hospitalized psychiatrically x4, last incident prior to 2006
--- OUTSIDE RECORDS SUMMARY | 2018-05-15 06:05 | XMS REPORT ---
Author Author LAZARA ARGUETA [facility] Address [address] [place] [address] Care Team Providers Care Manager Of Drilling Name Role Phone LAZARA ARGUETA Unavailable PROBLEMS Type Condition ICD9-CM Code [id number] Code Onset Dates Condition Status SNOMED Code Problem Edema R60.9 Active 504792093 Problem Major depressive disorder, single episode, unspecified F32.9 Active 12152145 Problem Environmental allergies Z91.09 Active 194775025 Problem Obstructive sleep apnea G47.33 Active 86687442 Problem GERD (gastroesophageal reflux disease) K21.9 Active 963322522 Problem Bipolar 1 disorder F31.9 Active 618367262 Problem Mixed hyperlipidemia E78.2 Active 945016430 Problem COPD suggested by initial evaluation J44.9 Active 01504224 Problem Schizoaffective disorder, bipolar type F25.0 Active 01549118 Problem Neuropathy G62.9 Active 124215794 Problem Morbid (severe) obesity due to excess calories E66.01 Active 134771756 Problem Primary osteoarthritis of left knee M17.12 Active 833714758 ALLERGIES No Information ENCOUNTERS Encounter Location Date Diagnosis [facility] [address], [place] [address] May, [facility] [id number] [place] [address] 19035- 4894 Mar, [facility] [address], [place] [address] 3881 Mar, [facility] [id number] [place] [address] 52961- 1794 Mar, [facility] [address], [place] [address] 8704 Mar, Screening for breast cancer Z12.31 ; Screening for colon cancer Z12.11 and BMI 45.0-49.9, adult Z68.42 [facility] [id number] [place] [address] 80023- 3347 15 Mar, 2018 [facility] [id number] [place] [address] 84833- 3095 Mar, [facility] [id number] [place] [address] 23602- 4460 Mar, [facility] [address] 81077- 0768 Jan, Schizoaffective disorder, bipolar type F25.0 and 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 [facility] [address] 75644- 4847 Jan, Prediabetes R73.03 and Mixed hyperlipidemia E78.2 [facility] [address] 05097- 7720 Jan, Obstructive sleep apnea G47.33 ; Primary osteoarthritis of left knee M17.12 ; Prediabetes R73.03 ; Mixed hyperlipidemia E78.2 ; COPD suggested by initial evaluation J44.9 and BMI 45.0-49.9, adult Z68.42 [facility] [id number] [place] [address] 74164- 2174 11 Jan, 2018 Encounter for immunization Z23 [facility] [id number] [place] [address] 46396- 2470 Jan, [facility] [id number] [place] [address] 02214- 7360 Dec, [facility] [id number] [place] [address] 18852- 6745 Nov, Obstructive sleep apnea G47.33 and COPD suggested by initial evaluation J44.9 [facility] [id number] [place] [address] 64661- 5923 Nov, COPD (chronic obstructive pulmonary disease) J44.9 [facility] [address], [place] [address]- 0896 Nov, [facility] [id number] [place] [address] 07516- 9036 Oct, [facility] [id number] [place] [address] 84715- 1246 Oct, [facility] [id number] [place] [address] 13982- 0528 Oct, 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 [facility] [id number] [place] [address] 31315- 0816 Oct, Schizoaffective disorder, bipolar type F25.0 ; 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 and 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 [facility] [id number] [place] [address] 33548- 4462 Oct, Prediabetes R73.03 ; COPD suggested by initial evaluation J44.9 ; BMI 45.0-49.9, adult Z68.42 and Obstructive sleep apnea G47.33 [facility] [id number] [place] [address] 63955- 9213 Sep, [facility] [id number] [place] [address] 97080- 9532 August, Neuropathy G62.9 [facility] [id number] [place] [address] 90634- 2603 August, [facility] [id number] [place] [address] 88078- 8257 August, [facility] [id number] [place] [address] 83764- 8339 Jul, [facility] [id number] [place] [address] 26759- 7908 Jul, Primary osteoarthritis of left knee M17.12 [facility] [id number] [place] [address] 89154- 9938 Jul, Schizoaffective disorder, bipolar type F25.0 and 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 [facility] [address] 38099- 1040 Jul, Prediabetes R73.03 ; Primary osteoarthritis of left knee M17.12 ; GERD (gastroesophageal reflux disease) K21.9 ; Bipolar 1 disorder F31.9 ; Depression F32.9 ; Environmental allergies Z91.09 ; Neuropathy G62.9 ; Edema R60.9 ; Body mass index (BMI) of 45.0-49.9 in adult Z68.42 and Morbid ( severe) obesity due to excess calories E66.01 [facility] [address] 36899- 6134 Jul, [facility] [address] 07855- 5622 Jun, [facility] [address] 91528- 5681 Jun, [facility] [address] 74189- 2033 Jun, Wound of right breast, initial encounter S21.001A and Prediabetes R73.03 [facility] [id number] [place] [address] 58830- 3851 Jun, [facility] [address] 06393- 7950 May, GERD (gastroesophageal reflux disease) K21.9 [facility] [id number] [place] [address] 53985- 0312 May, Primary osteoarthritis of left knee M17.12 [facility] [id number] [place] [address] 90180- 6762 May, Schizoaffective disorder, bipolar type F25.0 and 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 [facility] [address] 22602- 7010 May, Left medial knee pain M25.562 ; GERD (gastroesophageal reflux disease) K21.9 ; Depression F32.9 ; Neuropathy G62.9 ; Obesity E66.9 ; Prediabetes R73.03 and Edema R60.9 [facility] [address] 12670- 8084 14 Mar, [address] 14227- 7647 Mar, [address] 72637- 6215 Mar, Post-menopausal bleeding N95.0 and BMI 50.0-59.9, adult Z68.[address] 80920- 0243 Mar, [address] 97020- 9002 Mar, Schizoaffective disorder, bipolar type F25.0 and 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 08109- 6107 Mar, [address] 56748- 3845 Mar, [address] 03906- 3301 Mar, Post-menopausal bleeding N95.0 ; Screening breast examination Z12.31 ; Screen for STD (sexually transmitted disease) Z11.3 ; Obesity E66.9 ; Family history of ovarian cancer Z80.41 and Family history of cervical cancer Z80.[address] 95976- 7199 Mar, [address] 81311- 1834 Mar, [address] 87547- 2521 Jan, Schizoaffective disorder, bipolar type F25.0 and 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 [facility] [id number] [place] [address] 35005- 1042 Jan, Schizoaffective disorder, bipolar type F25.0 [facility] [id number] [place] [address] 14538- 9793 Jan, [facility] [id number] [place] [address] 62276- 2906 Jan, Prediabetes R73.03 and Obesity E66.9 [facility] [id number] [place] [address] 51559- 8143 Jan, Encounter for immunization Z23 [facility] [id number] [place] [address] 99449- 7138 Jan, [facility] [id number] [place] [address] 58017- 5303 Dec, [facility] [id number] [place] [address] 03218- 5619 Dec, [facility] [id number] [place] [address] 09722- 6074 Nov, Neuropathy G62.9 [facility] [id number] [place] [address] 48633- 6128 Nov, [facility] [id number] [place] [address] 39249- 7914 Nov, Schizoaffective disorder, bipolar type F25.0 [facility] [id number] [place] [address] 12474- 4511 Nov, 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 and Schizoaffective disorder, bipolar type F25.0 [facility] [address], [place] [address]- 8412 Oct, Schizoaffective disorder, bipolar type F25.0 ; Other detention (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 Z79.899 and 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 [facility] [id number] [place] [address] [id number] Oct, Dental caries K02.9 [facility] [id number] [place] [address] 87714- 0269 Sep, Neuropathy G62.9 [facility] [address] 77127- 8285 Sep, [facility] [id number] [place] [address] 27688- 7591 Sep, Neuropathy G62.9 [facility] [id number] [place] [address] 28567- 6188 Jul, Schizoaffective disorder, depressive type F25.1 [facility] [address] 17334- 8916 Jul, GERD (gastroesophageal reflux disease) K21.9 ; Joint pain of lower extremity M25.50 ; Environmental allergies Z91.09 ; Stress incontinence of urine N39.3 ; Neuropathy G62.9 ; Edema R60.9 and Acute pain of left knee M25.562 [facility] [id number] [place] [address] 27305- 2892 Jun, [facility] [id number] [place] [address] [id number] Jun, Dental examination Z01.20 [facility] [id number] [place] [address] 16372- 1441 Jun, [facility] [id number] [place] [address] 85211- 3178 May, [facility] [id number] [place] [address] 33039- 7896 May, Bipolar 1 disorder F31.9 ; Joint pain of lower extremity M25.50 ; Environmental allergies Z91.09 ; Stress incontinence of urine N39.3 ; Major depressive disorder, single episode, unspecified F32.9 ; Dizzy R42 ; Schizoaffective disorder, unspecified F25.9 ; Neuropathy G62.9 ; Localized edema R60.0 and GERD (gastroesophageal reflux disease) K21.9 [facility] [id number] [place] [address] 80020- 6339 May, Schizoaffective disorder, depressive type F25.1 [facility] [address] 09135- 8349 May, Environmental allergies Z91.09 and Major depressive disorder , single episode, unspecified F32.9 [facility] [address] 07940- 4818 Mar, Dental caries K02.9 [facility] [address] 58703- 0116 Mar, Dental caries on smooth surface penetrating into pulp K02.63 [facility] [address] 43619 -6948 Mar, Peripheral edema R60.9 and Dry skin L85.3 [facility] [address] 71155- 2639 Mar, [facility] [address] 05968- 6941 Mar, Major depressive disorder, single episode, unspecified F32.9 [facility] [id number] [place] [address] 64281- 1895 Mar, Dental caries K02.9 [facility] [address] 54338- 3520 07 Mar, 2016 Diabetes mellitus with complication E11.8 ; Urinary frequency R35.0 ; Stress incontinence of urine N39.3 ; Joint pain of lower extremity M25.50 ; Obesity E66.9 ; Environmental allergies Z91.09 ; Depression F32.9 ; Schizoaffective disorder, unspecified F25.9 ; Vaginal discharge N89.8 and Vaginal candidiasis B37.3 [facility] [address] 10080- 6028 Jan, Schizoaffective disorder, unspecified F25.9 [facility] [address] 07982- 7839 17 Jan, 2016 [facility] [address] 67915- 9061 30 Dec, 2015 [facility] [address] 00569- 8696 19 Dec, 2015 Dental caries K02.9 [facility] [address] 23240- 1341 14 Dec, 2015 Obesity E66.9 ; Edema R60.9 ; Depression F32.9 ; Bipolar 1 disorder F31.9 ; 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 ; Environmental allergies Z91.09 ; Shortness of breath R06.02 ; Gastroesophageal reflux disease with esophagitis K21.0 ; Other chronic pain G89.29 ; Pain in right knee M25.561 ; Pain in left knee M25.562 and Encounter for immunization Z23 [facility] [address] 82719- 9737 08 Nov, 2015 Dental caries K02.9 [facility] [address] 12887- 7633 Oct, Schizoaffective disorder, unspecified F25.9 [facility] [id number] [place] [address] 73022- 3695 12 Oct, 2015 Dental examination Z01.20 [facility] [address] 90117- 0103 Sep, Dental examination Z01.20 and Dental caries K02.9 [facility] [address] 05660- 2384 13 Sep, 2015 [facility] [address] [place] [address]- 1366 Sep, [facility] [address] 55467- 0528 Sep, [facility] [address] 90204- 2315 Sep, Schizoaffective disorder, unspecified F25.9 [facility] [address] 45725- 0488 August, Bipolar disorder, unspecified F31.9 [facility] [address] 39237- 3381 Jul, Edema R60.9 and Obesity E66.9 [facility] [address] 27489- 3269 Jul, Edema R60.9 [facility] [address] 04588- 5505 Jul, Edema R60.9 [facility] [address] 19936 -0080 Jul, Edema R60.9 [facility] [address] 75999- 4458 Jul, [facility] [address] 24280- 4842 Jul, [facility] [address] 86455- 1034 24 Jun, 2015 Environmental allergies V15.09 and Cough R05 [facility] [address] 40052- 9152 17 Jun, 2015 Environmental allergies V15.09 ; Edema R60.9 and Cough R05 [facility] [id number] [place] [address] 50317 -6788 12 Jun, 2016 Bronchospasm J98.01 [facility] [address] 44895- 9452 10 Jun, 2015 [facility] [id number] [place] [address] 06384- 5222 Jun, [facility] [address] [id number]- 4843 Jun, Environmental allergies V15.09 ; Bipolar 1 disorder F31.9 ; GERD (gastroesophageal reflux disease) K21.9 ; Depression F32.9 ; Joint pain of lower extremity M25.50 ; COPD (chronic obstructive pulmonary disease) J44.9 and Screening for diabetes mellitus Z13.1 [facility] [address] 28726- 5470 Jun, [facility] [address] 71778- 8569 May, [facility] [address] 61792- 6769 May, Schizoaffective disorder, unspecified F25.9 and Bipolar 1 disorder F31.9 [facility] [id number] [place] [address] 99552- 1733 May, [facility] [address] 65771- 2121 May, URI (upper respiratory infection) J06.9 ; Environmental allergies V15.09 and Cough R05 [facility] [id number] [place] [address] 84615- 4122 18 Mar, 2015 [facility] [id number] [place] [address] 18367- 5468 15 Mar, 2015 Vaginal discharge N89.8 [facility] [address] 16998- 8083 14 Mar, 2015 Schizoaffective disorder, unspecified F25.9 ; Major depressive disorder, single episode, unspecified F32.9 and Bipolar 1 disorder F31.9 [facility] [address] 45749- 0367 Mar, [facility] [id number] [place] [address] 08545- 6609 Mar, Bipolar 1 disorder F31.9 [facility] [id number] [place] [address] 99845- 9708 Jan, [facility] [address] 68683- 6636 Jan, Allergic rhinitis J30.9 and Cough R05 [facility] [address] 43562- 4872 Jan, 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 ; Bipolar 1 disorder F31.9 ; GERD ( gastroesophageal reflux disease) K21.9 ; Depression F32.9 and Joint pain of lower extremity M25.[address] 17635- 0261 Dec, Encounter for immunization Z23 [address] 82453- 9566 Dec, Schizoaffective disorder, unspecified 295.70 ; Pain in joint , lower leg 719.46 ; Esophageal reflux 530.81 ; Bipolar 1 disorder 296.7 ; Depression 311 ; GERD (gastroesophageal reflux disease) 530.81 and Environmental allergies V15.09 [facility] [address] [id number] Nov, Dental examination V72.2 [facility] [id number] [place] [address] 62573- 5743 Nov, Acute bronchitis 466.[address] 73344- 1472 Nov, Schizoaffective disorder, unspecified 295.70 and Bipolar disorder, unspecified 296.80 [facility] [id number] [place] [address] [id number] Sep, Dental examination V72.2 [facility] [address] [id number] August, Dental examination V72.2 [facility] [address], [place] [address]- 0896 August, Schizoaffective disorder, unspecified 295.70 [facility] [id number] [address]- 2546 August, [facility] [id number] [place] [address] 83578- 2546 August, Vomiting 787.03 [facility] [id number] [place] [address] 77361- 8366 August, Vomiting and diarrhea 787.03 and High risk medication use V58.69 [facility] [id number] [place] [address] 34506- 2546 30 Jul, 2014 [facility] [id number] [place] [address] 82998- 8446 Jul, [facility] [address], [place] [address]- 3486 Jul, [facility] [id number] [place] [address] 24150- 9666 Jun, [facility] [address], [place] [address]- 7846 Jun, [facility] [address], [place] [address]- 5556 Jun, [facility] [address], [place] [address]- 2546 Jun, [facility] [address], [place] [address]- 8816 16 Jun, 2014 [facility] [address], [place] [address]- 2546 Jun, [facility] [address], [place] [address]- 3146 Jun, [facility] [place] [facility] [address] [id number] [place] [address]- 3195 Jun, [facility] [place] [facility] [address] [id number] [place] [address]- 4644 Jun, [facility] [place] [facility] [address] [id number] [place] [address]- 4931 Mar, [facility] [place] [facility] [address] [id number] [place] [address]- 2044 Mar, [facility] [place] [facility] [address] [id number] [place] [address]- 8947 Mar, [facility] [place] [facility] [address] [id number] [place] [address]- 7760 Mar, [facility] [place] [facility] [address] [id number] [place] [address]- 0486 Mar, [facility] [place] [facility] [address] [id number] [place] [address]- 5107 Mar, [facility] [place] [facility] [address] [id number] [place] [address]- 2367 Mar, [facility] [place] [facility] [address] [facility] [id number] [place] [address]- 4237 Mar, [facility] [place] [facility] [address] [id number] [place] [address]- 9941 Mar, [facility] [place] [facility] [address] [id number], [place] [address]- 1171 Mar, [facility] [place] [facility] [address] [id number] [place] [address]- 7834 Jan, [facility] [place] [facility] [address] [id number] [place] 9661 Jan, [facility] [place] [facility] [address] [facility] [id number] [place]- 9008 Jan, [facility] [place] [facility] [address] [id number] [place] [address]- 2790 31 Jan, 2014 [facility] [place] [facility] [address] [id number] [place] [address]- 5519 14 Jan, 2014 [facility] [place] [facility] [address] [id number] [place] [address]- 6359 14 Jan, 2014 [facility] [place] [facility] [address] [id number] [place] [address]- 5776 09 Jan, 2014 [facility] [place] [facility] [address] [id number] [place] [address]- 3395 09 Jan, 2014 [facility] [place] [facility] [address] [id number] [place] [address]- 2001 19 Dec, 2013 [facility] [place] [facility] [address] [id number] [place] [address]- 1039 19 Dec, 2013 [facility] [place] [facility] [address] [id number] [place] [address]- 5906 15 Dec, 2013 [facility] [place] [facility] [address] [id number] [place] [address]- 0087 15 Dec, 2013 [facility] [place] [facility] [address] [id number] [place] [address]- 9298 15 Dec, 2013 [facility] [place] [facility] [address] [id number] [place] [address]- 9918 15 Dec, 2013 [facility] [place] [facility] [address] [id number] [place] [address]- 1103 12 Dec, 2013 [facility] [place] [facility] [address] [id number], [place] [address] 12 Dec, 2013 [facility] [place] [facility] [address] [id number] [place] [address] 03 Dec, 2013 [facility] [place] [facility] [address] [id number] [place] [address] 03 Dec, 2013 [facility] [place] [facility] [address] [id number] [place] [address] Nov, [facility] [place] [facility] [address] [id number] [place] [address] Nov, [facility] [place] [facility] [address] [id number] [place] [address] Nov, [facility] [place] [facility] [address] [id number] [place] [address] Nov, [facility] [place] [facility] [address] [id number] [place] [address] Oct, [facility] [place] [facility] [address] [id number] [place] [address] Oct, [facility] [place] [facility] [address] [id number] [place] [address] Oct, [facility] [place] [facility] [address] [id number] [place] [address] Oct, [facility] [place] [facility] [address] [id number] [place] [address] Sep, [facility] [place] [facility] [address] [id number] [place] [address] Sep, [facility] [place] [facility] [address] [id number] [place] [address] Sep, [facility] [place] [facility] [address] [id number] [place] [address] Sep, [facility] [place] [facility] [address] [id number] [place] [address] Sep, [facility] [place] [facility] [address] [id number] [place] [address] Sep, [facility] [place] [facility] [address] [id number] [place] [address] Sep, [facility] [place] [facility] [address] [id number] [place] [address] Sep, [facility] [place] [facility] [address] [id number] [place] [address] August, [facility] [place] [facility] [address] [id number] [place] [address] August, [facility] [place] [facility] [address] [id number] [place] [address] Jul, [facility] [place] [facility] [address] [id number] [place] [address] Jul, [facility] [place] [facility] [address] [id number] [place] [address] Jul, [facility] [place] [facility] [address] [id number] [place] [address] Jul, [facility] [place] [facility] [address] [id number] [place] [address] Jul, [facility] [place] [facility] [address] [id number] [place] [address] Jul, [facility] [place] [facility] [address] [id number] [place] [address] Jul, [facility] [place] [facility] [address] [id number] [place] [address] Jul, [facility] [facility] [address] [id number] [place] [address] Jul, [facility] [place] [facility] [address] [id number] [place] [address] Jul, [facility] [place] [facility] [address] [id number], [place] [address] Jun, [facility] [place] [facility] [address] [id number] [place] [address] Jun, [facility] [place] [facility] [address] [id number] [place] [address] Jun, [facility] [place] [facility] [address] [id number] [place] [address] Jun, [facility] [place] [facility] [address] [id number] [place] [address] 17 Jun, 2013 [facility] [place] [facility] [address] [id number] [place] [address] 17 Jun, 2013 [facility] [place] [address] [id number] [place] [address] 17 Jun, 2013 [facility] [place] [facility] [address] [id number] [place] [address]46 17 Jun, 2013 [facility] [place] [facility] [address] [id number] [place] [address] 14 Jun, 2013 [facility] [place] [facility] [address] [id number] [place] [address] 14 Jun, 2013 [facility] [place] [facility] [address] [id number] [place] [address] Jun, [facility] [place] [facility] [address] [id number] [place] [address] Jun, [facility] [place] [address] [id number] [place] [address] Jun, [facility] [place] [facility] [address] [id number] [place] [address] Jun, [facility] [address] [id number] [place] [address] Jun, [facility] [address] [id number] [place] [address] Jun, [facility] [place] [facility] [address] [id number] [place] [address] 9070 May, [facility] [place] [facility] [address] [id number] [place] [address] May, [facility] [address] [id number] [place] [address]227 May, [facility] [address] [id number] [place] [address] May, [facility] [place] [facility] [address] [id number] [place] [address] 24[address] Mar, [facility] [address] [id number] [place] [address] Mar, [facility] [address] [id number] [place] [address]- 120[address] Mar, [facility] [place] [address] [id number] [place] [address]- [address] Mar, [facility] [address] [id number] [place] [address] 85[address] Mar, [facility] [place] [address] [id number] [place] [address] Mar, [facility] [place] [address] [id number] [place] [address]- 6087 Mar, [facility] [address] [id number] [place] [address] 8[address] Mar, [facility] [address] [id number] [place] [address] 39[address] Jan, [facility] [address] [id number], [place] [address] Jan, [facility] [address] [id number], [place] [address] Jan, [facility] [address] [id number], [place] [address] Jan, [facility] [address] [id number] [place] [address] 59[address] Jan, [facility] [address] [id number], [place] [address] Jan, [facility] [address] [id number], [place] [address] Jan, [facility] [address] [id number] [place] [address]- [address] 09 Dec, 2012 [facility] [address] [id number] [place] [address] Nov, [facility] [address] [id number] [place] [address]208 Oct, [facility] [address] [id number] [place] [address]331 Oct, [facility] [address] [id number] [place] [address]- 8273 Sep, [facility] [address] [id number] [place] [address]- [address]104 Sep, [facility] [address] [id number] [place] [address]- 4944 Sep, [facility] [address] [id number] [place] [address]- [address] August, [facility] [address] [id number] [place] [address]- 46[address] Jun, [facility] [address] [id number] [place] [address]- 3820 Jun, [facility] [address] [facility] [id number] [place] [address]- 9198 Jun, [facility] [address] [id number] [place] [address]- [address] 15 Jun, 2012 [facility] [address] [id number], [place] [address] Jun, [facility] [address] [id number] [place] [address]- 8[address] Jun, [facility] [address] [id number] [place] [address]- [address] 07 Jun, 2012 [facility] [address] [id number] [place] [address]- 9[address] May, [facility] [address] [id number] [place] [address]- 1496 May, [facility] [address] [id number] [place] [address]- 8744 May, [facility] [address] [id number] [place] [address]- [address]39 May, [facility] [address] [id number] [place] [address]- 5786 May, [facility] [address] [id number] [place] [address]- 8465 May, [facility] [address] [id number] [place] [address]- 4946 May, [facility] [address] [id number] [place] [address]- 2778 Mar, [facility] [address] [id number] [place] [address]- 6975 Mar, [facility] [address] [id number] [place] [address]- 3330 Mar, [facility] [address] [id number], [place] [address] Mar, [facility] [address] [facility] [id number], [place] [address]- [address]16 Mar, [facility] [address] [id number], [place] [address] 3865 Mar, [facility] [address] [id number] [place] [address]- 6611 Mar, [facility] [address] [id number] [place] [address]- 1686 Mar, [facility] [address] [id number], [place] [address]326 Mar, [facility] [address] [id number], [place] [address]- 0592 Mar, [facility] [address] [id number] [place] [address]- 7660 Mar, [facility] [address] [id number] [place] [address]- 2818 Mar, [facility] [address] [facility] [id number] [place] [address]- 4813 Mar, [facility] [address] [id number] [place] [address]- 1121 Mar, [facility] [address] [id number] [place] [address], [place] [address]- 1323 Mar, [facility] [address] [facility] [id number] [place] [address]- 5876 Mar, [facility] [address] [id number] [place] [address]- [address] Mar, [facility] [address] [facility] [id number] [place] [address]- 1657 Mar, [facility] [address] [facility] [id number] [place] [address]- 9478 Mar, [facility] [address] [facility] [id number], [place] [address]- 3141 Jan, [facility] [address] [facility] [id number], [place] [address]- 5085 Jan, [facility] [address] [facility] [id number], [place] [address]- 0388 Jan, [facility] [address] [facility] [id number], [place] [address]- 0222 Jan, [facility] [address] [facility] [id number], [place] [address]- 8797 Dec, [facility] [address] [facility] [id number], [place] [address]- 2800 18 Dec, 2011 [facility] [address] [id number], [place] [address] Dec, [facility] [id number], [place] [address] Nov, [facility] [id number], [place] [address] 1549 Nov, [facility] [id number], [place] [address]- 8070 Oct, [facility] [id number], [place] [address]- 3693 Oct, [facility] [id number], [place] [address]- 7441 Oct, [facility] [id number], [place] [address]- [address]598 Oct, [facility] [id number], [place] [address]- 2068 Oct, [facility] [address] [id number], [place] [address] Oct, IMMUNIZATIONS No Known Immunizations SOCIAL HISTORY Never Assessed REASON FOR VISIT refill request PLAN OF CARE VITAL SIGNS MEDICATIONS Medication Instructions Dosage Frequency Start Date End Date Duration Status Gabapentin 300 MG Orally Three times a day 1 capsule 8h 30 Active RESULTS No Results PROCEDURES No Known procedures [...]
--- OUTSIDE RECORDS SUMMARY | 2018-05-15 06:06 | XMS REPORT ---
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 Name Role Phone LAZARA ARGUETA Unavailable PROBLEMS Type Condition ICD9-CM Code RHR93-IR Code Onset Dates Condition Status SNOMED Code Problem Edema R60.9 Active 827750014 Problem Major depressive disorder, single episode, unspecified F32.9 Active 05975166 Problem Environmental allergies Z91.09 Active 518837302 Problem Obstructive sleep apnea G47.33 Active 05130950 Problem GERD (gastroesophageal reflux disease) K21.9 Active 105320356 Problem Bipolar 1 disorder F31.9 Active 856554847 Problem Mixed hyperlipidemia E78.2 Active 005470457 Problem COPD suggested by initial evaluation J44.9 Active 22594728 Problem Schizoaffective disorder, bipolar type F25.0 Active 02888136 Problem Neuropathy G62.9 Active 206226268 Problem Morbid (severe) obesity due to excess calories E66.01 Active 083817009 Problem Primary osteoarthritis of left knee M17.12 Active 644267857 ALLERGIES No Information ENCOUNTERS Encounter Location Date Diagnosis [facility] [id number] [address] May, [facility] [id number] [place] [address] 84797- 3112 Mar, [facility] [address] [place] [address] 03470- 2500 Mar, [facility] [id number] [place] [address] 95750- 9408 Mar, Screening for breast cancer Z12.31 ; Screening for colon cancer Z12.11 and BMI 45.0-49.9, adult Z68.42 [facility] [id number] [place] [address] 39264- 8380 Mar, [facility] [id number] [place] [address] 91376- 2654 Mar, [facility] [id number] [place] [address] 58656- 3873 Mar, [facility] [id number] [place] [address] 60992- 8818 Jan, Schizoaffective disorder, bipolar type F25.0 and 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 [facility] [id number] [place] [address] 01859- 6360 Jan, Prediabetes R73.03 and Mixed hyperlipidemia E78.2 [facility] [id number] [place] [address] 81493- 9564 Jan, Obstructive sleep apnea G47.33 ; Primary osteoarthritis of left knee M17.12 ; Prediabetes R73.03 ; Mixed hyperlipidemia E78.2 ; COPD suggested by initial evaluation J44.9 and BMI 45.0-49.9, adult Z68.42 [facility] [id number] [place] [address] 98159- 1504 11 Jan, 2018 Encounter for immunization Z23 [facility] [id number] [place] [address] 37444- 4247 Jan, [facility] [id number] [place] [address] 60110- 9590 Dec, [facility] [id number] [place] [address] 85612- 4880 Nov, Obstructive sleep apnea G47.33 and COPD suggested by initial evaluation J44.9 [facility] [id number] [place] [address] 87818- 3867 Nov, COPD (chronic obstructive pulmonary disease) J44.9 [facility] [id number] [place] [address] 12882- 0818 Nov, [facility] [id number], [place] [address] 2536 Oct, [facility] [id number] [place] [address] 23456- 8423 Oct, [facility] [id number] [place] [address] 69993- 4437 Oct, Other snf (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 Z79.899 [facility] [id number] [place] [address] 80602- 6841 Oct, Schizoaffective disorder, bipolar type F25.0 ; 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 and Other snf (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 Z79.899 [facility] [id number] [place] [address] 74054- 8316 Oct, Prediabetes R73.03 ; COPD suggested by initial evaluation J44.9 ; BMI 45.0-49.9, adult Z68.42 and Obstructive sleep apnea G47.33 [facility] [id number] [place] [address] 47969- 2184 Sep, [facility] [id number] [place] [address] 88969- 4648 August, Neuropathy G62.9 [facility] [id number] [place] [address] 89655- 7698 August, [facility] [id number] [place] [address] 47864- 0926 August, [facility] [id number] [place] [address] 67330- 2828 Jul, [facility] [id number] [place] [address] 16935- 9639 Jul, Primary osteoarthritis of left knee M17.12 [facility] [address] [place] [address] 64359- 7825 Jul, Schizoaffective disorder, bipolar type F25.0 and 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 [facility] [id number] [place] [address] 90110- 8059 Jul, Prediabetes R73.03 ; Primary osteoarthritis of left knee M17.12 ; GERD (gastroesophageal reflux disease) K21.9 ; Bipolar 1 disorder F31.9 ; Depression F32.9 ; Environmental allergies Z91.09 ; Neuropathy G62.9 ; Edema R60.9 ; Body mass index (BMI) of 45.0-49.9 in adult Z68.42 and Morbid ( severe) obesity due to excess calories E66.01 [facility] [address] 44863- 3638 Jul, [facility] [address] 30466- 6041 Jun, [facility] [address] 97830- 8052 Jun, [facility] [address] 27483- 5515 Jun, Wound of right breast, initial encounter S21.001A and Prediabetes R73.03 [facility] [address] 72432- 0474 Jun, [facility] [address] 40359- 7852 May, GERD (gastroesophageal reflux disease) K21.9 [facility] [address] 04451- 0648 May, Primary osteoarthritis of left knee M17.12 [facility] [id number] [place] [address] 66535- 8471 May, Schizoaffective disorder, bipolar type F25.0 and 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 [facility] [address] 96418- 0808 May, Left medial knee pain M25.562 ; GERD (gastroesophageal reflux disease) K21.9 ; Depression F32.9 ; Neuropathy G62.9 ; Obesity E66.9 ; Prediabetes R73.03 and Edema R60.9 [facility] [id number] [place] [address] 52890- 8981 14 Mar, 2017 [facility] [id number] [place] [address] 06343- 4088 08 Mar, 2017 [facility] [address] 50184- 4878 05 Mar, 2017 Post-menopausal bleeding N95.0 and BMI 50.0-59.9, adult Z68.43 [facility] [address] 08602- 8072 Mar, [facility] [id number] [place] [address] 70407- 4394 Mar, Schizoaffective disorder, bipolar type F25.0 and 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 [facility] [id number] [place] [address] 39035- 0578 Mar, [facility] [id number] [place] [address] 87455- 2604 Mar, [facility] [id number] [place] [address] 32081- 9072 Mar, Post-menopausal bleeding N95.0 ; Screening breast examination Z12.31 ; Screen for STD (sexually transmitted disease) Z11.3 ; Obesity E66.9 ; Family history of ovarian cancer Z80.41 and Family history of cervical cancer Z80.49 [facility] [id number] [place] [address] 52725- 6017 Mar, [facility] [id number] [place] [address] 79709- 6752 Mar, [facility] [id number] [place] [address] 59677- 2781 Jan, Schizoaffective disorder, bipolar type F25.0 and 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 [facility] [id number] [address]- 5683 Jan, Schizoaffective disorder, bipolar type F25.0 [facility] [id number] [place] [address] 45073 2546 Jan, [facility] [id number] [place] [address] 51970- 1026 Jan, Prediabetes R73.03 and Obesity E66.9 [facility] [id number] [place] [address] 62888 2546 05 Jan, 2017 Encounter for immunization Z23 [facility] [id number] [place] [address] 66879- 5256 Jan, [facility] [id number] [place] [address] 35005- 6850 Dec, [facility] [id number] [place] [address] 95508- 1021 Dec, [facility] [id number] [place] [address] 62109- 2471 Nov, Neuropathy G62.9 [facility] [id number] [place] [address] 96907- 9729 Nov, [facility] [id number] [place] [address] 36431- 3742 Nov, Schizoaffective disorder, bipolar type F25.0 [facility] [id number], [place] [address]- 2544 Nov, 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 [id number] [address] Oct, Dental caries K02.9 [facility] [id number] [place] [address] 16002- 5776 Sep, Neuropathy G62.9 [facility] [id number] [place] [address] 27899- 5198 Sep, [facility] [id number] [place] [address] 06549- 3589 Sep, Neuropathy G62.9 [facility] [id number] [place] [address] 01843- 0360 Jul, Schizoaffective disorder, depressive type F25.1 [facility] [id number] [place] [address] 18716- 4133 Jul, GERD (gastroesophageal reflux disease) K21.9 ; Joint pain of lower extremity M25.50 ; Environmental allergies Z91.09 ; Stress incontinence of urine N39.3 ; Neuropathy G62.9 ; Edema R60.9 and Acute pain of left knee M25.562 [facility] [address] [place] [address] 01227- 8025 Jun, [facility] [address] [place] [address] [id number] Jun, Dental examination Z01.20 [facility] [address] [place] [address] 74933- 3371 Jun, [facility] [address] [place] [address] 94493- 6188 May, [facility] [id number] [place] [address] 12708- 6458 May, Bipolar 1 disorder F31.9 ; Joint pain of lower extremity M25.50 ; Environmental allergies Z91.09 ; Stress incontinence of urine N39.3 ; Major depressive disorder, single episode, unspecified F32.9 ; Dizzy R42 ; Schizoaffective disorder, unspecified F25.9 ; Neuropathy G62.9 ; Localized edema R60.0 and GERD (gastroesophageal reflux disease) K21.9 [facility] [address] 43698- 8373 May, Schizoaffective disorder, depressive type F25.1 [facility] [address] 89913- 9477 May, Environmental allergies Z91.09 and Major depressive disorder , single episode, unspecified F32.9 [facility] [address] 42896- 9451 Mar, Dental caries K02.9 [facility] [address] 20795- 8140 Mar, Dental caries on smooth surface penetrating into pulp K02.63 [facility] [address] 82654 -5687 Mar, Peripheral edema R60.9 and Dry skin L85.3 [facility] [address] 68651- 6675 Mar, [facility] [address] 35085- 1881 30 Mar, 2016 Major depressive disorder, single episode, unspecified F32.9 [facility] [address] 62558- 3468 Mar, Dental caries K02.9 [facility] [address] 57652- 4897 07 Mar, 2016 Diabetes mellitus with complication E11.8 ; Urinary frequency R35.0 ; Stress incontinence of urine N39.3 ; Joint pain of lower extremity M25.50 ; Obesity E66.9 ; Environmental allergies Z91.09 ; Depression F32.9 ; Schizoaffective disorder, unspecified F25.9 ; Vaginal discharge N89.8 and Vaginal candidiasis B37.3 [facility] [address] 04598- 2334 Jan, Schizoaffective disorder, unspecified F25.9 [facility] [id number] [place] [address] 29264- 7622 17 Jan, 2016 [facility] [id number] [place] [address] 08569- 7857 30 Dec, 2015 [facility] [address] 69500- 1051 19 Dec, 2015 Dental caries K02.9 [facility] [id number] [place] [address] 77344- 8889 14 Dec, 2015 Obesity E66.9 ; Edema R60.9 ; Depression F32.9 ; Bipolar 1 disorder F31.9 ; 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 ; Environmental allergies Z91.09 ; Shortness of breath R06.02 ; Gastroesophageal reflux disease with esophagitis K21.0 ; Other chronic pain G89.29 ; Pain in right knee M25.561 ; Pain in left knee M25.562 and Encounter for immunization Z23 [facility] [id number] [place] [address] 47706- 3664 Nov, Dental caries K02.9 [facility] [id number] [place] [address] 69972- 3260 Oct, Schizoaffective disorder, unspecified F25.9 [facility] [id number] [place] [address] 17062- 8758 Oct, Dental examination Z01.20 [facility] [id number] [place] [address] 80851- 7996 20 Sep, 2015 Dental examination Z01.20 and Dental caries K02.9 [facility] [id number] [place] [address] 26680- 7385 13 Sep, 2015 [facility] [id number] [place] [address] 67925- 6664 09 Sep, 2015 [facility] [address] [place] [address]- 0202 Sep, [facility] [id number] [place] [address] 26105- 9917 Sep, Schizoaffective disorder, unspecified F25.9 [facility] [id number] [place] [address] 81578- 6642 August, Bipolar disorder, unspecified F31.9 [facility] [address] 66649- 8213 Jul, Edema R60.9 and Obesity E66.9 [facility] [address] 85945- 8538 Jul, Edema R60.9 [facility] [id number] [place] [address] 90651- 4440 Jul, Edema R60.9 [facility] [address] 66287 -6551 Jul, Edema R60.9 [facility] [id number] [place] [address] 97405- 0456 Jul, [facility] [address] 42565- 5303 Jul, [facility] [id number] [place] [address] 57939- 3018 24 Jun, 2015 Environmental allergies V15.09 and Cough R05 [facility] [id number] [place] [address] 84492- 7583 17 Jun, 2015 Environmental allergies V15.09 ; Edema R60.9 and Cough R05 [facility] [id number] [place] [address] 27694 -9229 12 Jun, 2015 Bronchospasm J98.01 [facility] [id number] [place] [address] 05298- 7576 10 Jun, 2015 [facility] [address] 44162- 1167 Jun, [facility] [id number] [place] [address] 25449- 9968 Jun, Environmental allergies V15.09 ; Bipolar 1 disorder F31.9 ; GERD (gastroesophageal reflux disease) K21.9 ; Depression F32.9 ; Joint pain of lower extremity M25.50 ; COPD (chronic obstructive pulmonary disease) J44.9 and Screening for diabetes mellitus Z13.1 [facility] [address] 04709- 7676 16 Jun, 2015 [facility] [address] 53140- 8956 May, [facility] [address] 30883- 1841 May, Schizoaffective disorder, unspecified F25.9 and Bipolar 1 disorder F31.9 [facility] [address] 11320- 3574 May, [facility] [id number] [place] [address] 13702- 6043 May, URI (upper respiratory infection) J06.9 ; Environmental allergies V15.09 and Cough R05 [facility] [id number] [place] [address] 90057- 1695 18 Mar, 2015 [facility] [id number] [place] [address] 41913- 1461 15 Mar, 2015 Vaginal discharge N89.8 [facility] [id number] [place] [address] 48418- 7230 14 Mar, 2015 Schizoaffective disorder, unspecified F25.9 ; Major depressive disorder, single episode, unspecified F32.9 and Bipolar 1 disorder F31.9 [facility] [id number] [place] [address] 49004- 9004 30 Mar, 2015 [facility] [address] 62828- 7353 Mar, Bipolar 1 disorder F31.9 [facility] [id number] [place] [address] 70286- 4281 Jan, [facility] [address] 72762- 4018 Jan, Allergic rhinitis J30.9 and Cough R05 [facility] [id number]- 2952 Jan, 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 ; Bipolar 1 disorder F31.9 ; GERD ( gastroesophageal reflux disease) K21.9 ; Depression F32.9 and Joint pain of lower extremity M25.50 [facility] [address] 34415- 9247 Dec, Encounter for immunization Z23 [address] 39727- 4476 Dec, Schizoaffective disorder, unspecified 295.70 ; Pain in joint , lower leg 719.46 ; Esophageal reflux 530.81 ; Bipolar 1 disorder 296.7 ; Depression 311 ; GERD (gastroesophageal reflux disease) 530.81 and Environmental allergies V15.09 [facility] [address] [id number] Nov, Dental examination V72.2 [facility] [id number] [place] [address] 05730- 4530 Nov, Acute bronchitis 466.0 [facility] [address] 95792- 0140 Nov, Schizoaffective disorder, unspecified 295.70 and Bipolar disorder, unspecified 296.80 [facility] [address] [id number] Sep, Dental examination V72.2 [facility] [address] [id number] August, Dental examination V72.2 [facility] [address] [place]- 1873 August, Schizoaffective disorder, unspecified 295.70 [facility] [id number] [place] [address] 70842- 1860 August, [facility] [id number] [place] [address] 60164- 8129 August, Vomiting 787.03 [facility] [id number] [place] [address] 83972- 4785 August, Vomiting and diarrhea 787.03 and High risk medication use V58.69 [facility] [id number] [place] [address] 98639- 1918 Jul, [facility] [id number] [place] [address] 90982- 9529 Jul, [facility] [id number] [place] [address] 15581- 3575 Jul, [facility] [address] [place] [address] 63956- 5515 Jun, [facility] [id number] [place] [address] 32658- 9867 Jun, [facility] [address], [place] [address]- 9615 Jun, [facility] [address] [place] [address] 088690- 2769 Jun, [facility] [address], [place] [address]- 4074 16 Jun, 2014 [facility] [address] [place] [address] 32209- 4618 Jun, [facility] [address] 9093 Jun, [facility] [address] [place] [address] 74072- 4258 Jun, [facility] [place] [facility] [address] [id number] [place] [address]- 2848 Jun, [facility] [place] [facility] [address] [id number] [place] [address]- 6444 Mar, [facility] [place] [facility] [address] [id number] [place] 9511 Mar, [facility] [place] [facility] [address] [id number] [place] [address]- 2177 Mar, [facility] [place] [facility] [address] [id number] [place] 9136 Mar, [facility] [place] [facility] [address] [id number] [place] [address]- 7665 Mar, [facility] [place] [facility] [address] [id number] [place] [address]- 2689 Mar, [facility] [place] [facility] [address] [id number] [place] [address]- 2581 Mar, [facility] [place] [facility] [address] [id number] [place] [address]- 6371 Mar, [facility] [place] [facility] [address] [id number] [place] [address]- 0126 Mar, [facility] [place] [facility] [address] [id number] [place] [address]- 1871 Mar, [facility] [place] [facility] [address] [id number] [place] [address]- 0603 Jan, [facility] [place] [facility] [address] [id number] [place] [address] Jan, [facility] [place] [facility] [address] [id number] [place] [address] Jan, [facility] [place] [facility] [address] [id number] [place] [address] Jan, [facility] [place] [facility] [address] [id number] [place] [address] 14 Jan, 2014 [facility] [place] [facility] [address] [id number] [place] [address] 14 Jan, 2014 [facility] [place] [facility] [address] [id number] [place] [address] 09 Jan, 2014 [facility] [place] [facility] [address] [id number] [place] [address] 09 Jan, 2014 [facility] [place] [facility] [address] [id number] [place] [address] 19 Dec, 2013 [facility] [place] [facility] [address] [id number] [place] [address] 19 Dec, 2013 [facility] [place] [facility] [address] [id number] [place] [address] 15 Dec, 2013 [facility] [place] [facility] [address] [id number] [place] [address] 15 Dec, 2013 [facility] [place] [facility] [address] [id number] [place] [address] 15 Dec, 2013 [facility] [place] [facility] [address] [id number] [place] [address] 15 Dec, 2013 [facility] [place] [facility] [address] [id number] [place] [address] 12 Dec, 2013 [facility] [place] [facility] [address] [id number] [place] [address] 12 Dec, 2013 [facility] [place] [facility] [address] [id number], [place] [address] 03 Dec, 2013 [facility] [place] [facility] [address] [id number] [place] [address] 03 Dec, 2013 [facility] [place] [facility] [address] [id number] [place] [address] Nov, [facility] [place] [facility] [address] [id number] [place] [address] Nov, [facility] [place] [facility] [address] [id number] [place] [address] Nov, [facility] [place] [facility] [address] [id number] [place] [address] Nov, [facility] [place] [facility] [address] [id number] [place] [address] Oct, [facility] [place] [facility] [address] [id number] [place] [address] Oct, [facility] [place] [facility] [address] [id number] [place] [address] Oct, [facility] [place] [facility] [address] [id number] [place] [address] Oct, [facility] [place] [facility] [address] [id number] [place] [address] Sep, [facility] [place] [facility] [address] [id number] [place] [address] Sep, [facility] [place] [facility] [address] [id number] [place] [address] Sep, [facility] [place] [facility] [address] [id number] [place] [address] Sep, [facility] [place] [facility] [address] [id number] [place] [address] Sep, [facility] [place] [facility] [address] [id number] [place] [address] Sep, [facility] [place] [facility] [address] [id number] [place] [address] Sep, [facility] [place] [facility] [address] [id number] [place] [address] Sep, [facility] [place] [facility] [address] [id number] [place] [address] August, [facility] [place] [facility] [address] [id number] [place] [address] August, [facility] [place] [facility] [address] [id number] [place] [address] Jul, [facility] [place] [facility] [address] [id number] [place] [address] Jul, [facility] [place] [facility] [address] [id number] [place] [address] Jul, [facility] [place] [facility] [address] [id number] [place] [address] Jul, [facility] [place] [facility] [address] [id number] [place] [address] Jul, [facility] [place] [facility] [address] [id number] [place] [address] Jul, [facility] [place] [facility] [address] [id number] [place] [address] Jul, [facility] [place] [facility] [address] [id number] [place] [address] Jul, [facility] [place] [facility] [address] [id number] [place] [address] Jul, [facility] [place] [facility] [address] [id number] [place] [address] Jul, [facility] [place] [facility] [address] [id number] [place] [address] Jun, [facility] [place] [facility] [address] [id number], [place] [address] 27 Jun, 2013 [facility] [place] [facility] [address] [id number] [place] [address] 18 Jun, 2013 [facility] [place] [facility] [address] [id number] [place] [address] 3536 18 Jun, 2013 [facility] [place] [facility] [address] [id number] [place] [address] 17 Jun, 2013 [facility] [place] [facility] [address] [id number] [place] [address]245 17 Jun, 2013 [facility] [place] [facility] [address] [id number] [place] [address] 9311 17 Jun, 2013 [facility] [place] [facility] [address] [id number] [place] [address] 0676 17 Jun, 2013 [facility] [place] [facility] [address] [id number] [place] [address] 3686 14 Jun, 2013 [facility] [place] [facility] [address] [id number] [place] [address] 9767 14 Jun, 2013 [facility] [place] [facility] [address] [id number] [place] [address] 9720 07 Jun, 2013 [facility] [place] [facility] [address] [id number] [place] [address] 07 Jun, 2013 [facility] [place] [facility] [address] [id number] [place] [address] 265[address] Jun, [facility] [place] [facility] [address] [id number] [place] [address]107 Jun, [facility] [place] [facility] [address] [id number] [place] [address] 466[address] Jun, [facility] [place] [facility] [address] [id number] [place] [address] Jun, [facility] [place] [facility] [address] [id number] [place] [address] May, [facility] [place] [facility] [address] [id number] [place] [address] 4665 May, [facility] [place] [facility] [address] [id number] [place] [address] 45[address] May, [facility] [place] [facility] [address] [id number] [place] [address] 58[address] May, [facility] [place] [facility] [address] [id number] [place] [address] Mar, [facility] [place] [facility] [address] [id number] [place] [address]99 Mar, [facility] [place] [facility] [address] [id number] [place] [address] 9960 Mar, [facility] [place] [facility] [address] [id number] [place] [address] Mar, [facility] [place] [facility] [address] [id number] [place] [address] Mar, [facility] [place] [facility] [address] [id number] [place] [address] 2360 Mar, [facility] [place] [facility] [address] [id number] [place] [address] Mar, [facility] [place] [facility] [address] [id number] [place] [address] 0193 Mar, [facility] [place] [facility] [address] [id number] [place] [address] 7089 Jan, [facility] [place] [facility] [address] [id number] [place] [address] 9[address] Jan, [facility] [place] [facility] [address] [id number], [place] [address]- [address] Jan, [facility] [place] [facility] [address] [id number], [place] [address] Jan, [facility] [place] [facility] [address] [id number], [place] [address] Jan, [facility] [place] [facility] [address] [id number] [place] [address] 0439 Jan, [facility] [place] [facility] [address] [id number], [place] [address] 244[address] Jan, [facility] [place] [facility] [address] [id number], [place] [address] Dec, [facility] [place] [facility] [address] [id number] [place] [address] 3[address] Nov, [facility] [address] [id number] [place] [address] Oct, [facility] [place] [facility] [address] [id number] [place] [address] 7346 Oct, [facility] [address] [id number] [place] [address] 7083 Sep, [facility] [place] [facility] [address] [id number] [place] [address] Sep, [facility] [address] [id number] [place] [address] 7[address] Sep, [facility] [place] [facility] [address] [id number] [place] [address] 9737 August, [facility] [address] [id number] [place] [address] 7121 Jun, [facility] [address] [id number] [place] [address] 3454 Jun, [facility] [address] [id number] [place] [address] 15 Jun, 2012 [facility] [address] [id number] [place] [address] 15 Jun, 2012 [facility] [place] [facility] [id number] [place] [address] Jun, [facility] [place] [facility] [address] [id number] [place] [address]- 0238 Jun, [facility] [place] [facility] [address] [id number] [place] [address]- 0600 07 Jun, 2012 [facility] [place] [facility] [address] [id number] [place] [address]- 8186 May, [facility] [place] [facility] [address] [id number] [place] [address]- 0178 May, [facility] [address] [id number] [place] [address]- 8561 14 May, 2012 [facility] [place] [facility] [address] [id number] [place] [address]- 8871 May, [facility] [address] [id number] [place] [address]- 2846 May, [facility] [place] [facility] [address] [id number] [place] [address]- 4336 May, [facility] [address] [id number] [place] [address]- 2503 May, [facility] [place] [facility] [address] [id number] [place] [address]- 4645 Mar, [facility] [address] [id number] [place] [address]- 4066 Mar, [facility] [address] [id number] [place] [address]- 6291 Mar, [facility] [place] [facility] [address] [id number] [place] [address]- 9609 Mar, [facility] [address] [facility] [id number] [place] [address]- 5382 Mar, [facility] [place] [facility] [address] [facility] [id number], [place] [address]- 5672 Mar, [facility] [place] [facility] [address] [id number], [place] [address]- 7798 Mar, [facility] [place] [facility] [address] [id number] [place] [address]- 7286 Mar, [facility] [place] [facility] [address] [id number] [place] [address]- 6536 Mar, [facility] [place] [facility] [address] [id number], [place] [address]- 8296 Mar, [facility] [place] [facility] [address] [id number], [place] [address]- 9682 Mar, [facility] [place] [facility] [address] [id number] [place] [address]- 1140 Mar, [facility] [place] [facility] [address] [id number] [place] [address]- 2751 Mar, [facility] [place] [facility] [address] [facility] [id number] [place] [address]- 8139 Mar, [facility] [place] [facility] [address] [id number] [place] [address]- 8040 Mar, [facility] [place] [facility] [address] [facility] [id number] [place] [address]- 9659 Mar, [facility] [place] [facility] [address] [facility] [id number] [place] [address]- 8485 Mar, [facility] [place] [facility] [address] [id number] [place] [address]- 3132 Mar, [facility] [place] [facility] [address] [facility] [id number] [place] [address]- 6205 Mar, [facility] [place] [facility] [address] [id number] [place] [address]- 7724 Jan, [facility] [place] [facility] [address] [facility] [id number] [place] [address]- 5193 Jan, [facility] [place] [facility] [address] [facility] [id number], [place] [address]- 9204 Jan, [facility] [place] [facility] [address] [facility] [id number], [place] [address]- 9984 Jan, [facility] [place] [facility] [address] [facility] [id number], [place] [address]- 4630 Dec, [facility] [place] [facility] [address] [facility] [id number] [place] [address]- 6167 18 Dec, 2011 [facility] [place] [facility] [address] [facility] [id number], [place] [address]- 5366 Dec, [facility] [place] [facility] [address] [id number], [place] [address]- 4709 Nov, [facility] [id number], [place] [address]- [address] Nov, [facility] [id number], [place] [address]- 7779 Oct, [facility] [id number], [place] [address]- 3136 Oct, [facility] [id number], [place] [address]- 4592 Oct, [facility] [id number], [place] [address]- 4700 Oct, [facility] [id number], [place] [address]- 60[address] Oct, [facility] [id number], [place] [address]- 7030 Oct, IMMUNIZATIONS No Known Immunizations SOCIAL HISTORY [...]
--- OUTSIDE RECORDS SUMMARY | 2018-05-15 06:07 | XMS REPORT ---
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 Active 773709202 Problem Schizoaffective disorder, bipolar type F25.0 Active 76226764 Problem Mixed hyperlipidemia E78.2 Active 856172793 Problem COPD suggested by initial evaluation J44.9 Active 85366682 Problem Primary osteoarthritis of left knee M17.12 Active 574065555 Problem Post-menopausal bleeding N95.0 Active 56726377 Problem Body mass index (BMI) of 45.0-49.9 in adult Z68.42 Active 161047423 Problem Morbid (severe) obesity due to excess calories E66.01 Active 853101181 Problem Obstructive sleep apnea G47.33 Active 47795210 Problem Depression F32.9 Active 24998965 Problem Edema R60.9 Active 437767433 Problem Obesity E66.9 Active 617877570 Problem GERD (gastroesophageal reflux disease) K21.9 Active 592983492 Problem Environmental allergies Z91.09 Active 993908877 Problem Bipolar 1 disorder F31.9 Active 594216373 Problem Major depressive disorder, single episode, unspecified F32.9 Active 21233006 ALLERGIES No Information ENCOUNTERS Encounter Location Date Diagnosis [facility] [place] [id number] [address] May, [facility] [place] [address] [address] Mar, [facility] [place] [id number] [address] Mar, [place] [id number] [place] [address] 63020- 1774 Mar, [place] [address] [address]- 7540 Jan, Schizoaffective disorder, bipolar type F25.0 and 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 [place] [address] 73554- 4870 Jan, Prediabetes R73.03 and Mixed hyperlipidemia E78.2 [place] [address] 20480- 8653 17 Jan, 2018 Obstructive sleep apnea G47.33 ; Primary osteoarthritis of left knee M17.12 ; Prediabetes R73.03 ; Mixed hyperlipidemia E78.2 ; COPD suggested by initial evaluation J44.9 and BMI 45.0-49.9, adult Z68.[address] [address]- [address] Jan, Encounter for immunization Z23 [place] [address] [address]- 7650 Jan, [place] [address] 97514- 6455 Dec, [place] [id number] [place] [address] 26482- 2406 Nov, Obstructive sleep apnea G47.33 and COPD suggested by initial evaluation J44.9 [place] [id number] [place] [address] 41336- 6590 Nov, COPD (chronic obstructive pulmonary disease) J44.9 [place] [address] 26980- 2988 Nov, [place] [address] 51140- 3060 Oct, [place] [address] 33401- 6557 Oct, [facility] [place] [address] [address] Oct, 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 [facility] [place] [id number] [place] [address] 47877- 5642 Oct, Schizoaffective disorder, bipolar type F25.0 ; 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 and 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 [facility] [place] [id number] [place] [address] 71370- 9845 Oct, Prediabetes R73.03 ; COPD suggested by initial evaluation J44.9 ; BMI 45.0-49.9, adult Z68.42 and Obstructive sleep apnea G47.33 [place] [id number] [place] [address] 33472- 7809 Sep, [facility] [place] [id number] [place] [address] 22939- 8354 August, Neuropathy G62.9 [facility] [place] [id number] [place] [address] 70196- 8172 August, [facility] [place] [id number] [place] [address] 55597- 4603 August, [facility] [place] [id number] [place] [address] 12794- 7661 Jul, [facility] [place] [id number] [place] [address] 46558- 1399 Jul, Primary osteoarthritis of left knee M17.12 [facility] [place] [id number] [place] [address] 24212- 0428 Jul, Schizoaffective disorder, bipolar type F25.0 and 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 [facility] [place] [address] [place] [address] 79757- 4356 Jul, Prediabetes R73.03 ; Primary osteoarthritis of left knee M17.12 ; GERD (gastroesophageal reflux disease) K21.9 ; Bipolar 1 disorder F31.9 ; Depression F32.9 ; Environmental allergies Z91.09 ; Neuropathy G62.9 ; Edema R60.9 ; Body mass index (BMI) of 45.0-49.9 in adult Z68.42 and Morbid ( severe) obesity due to excess calories E66.01 [place] [address] 34443- 1404 Jul, [place] [address] 65887- 5423 Jun, [place] [address] 27845- 8533 Jun, [place] [address] 21647- 8154 Jun, Wound of right breast, initial encounter S21.001A and Prediabetes R73.[address] 66202- 0523 Jun, [place] [address] 24322- 2256 May, GERD (gastroesophageal reflux disease) K21.9 [place] [address] 79863- 4401 May, Primary osteoarthritis of left knee M17.12 [place] [id number] [place] [address] 90673- 9311 May, Schizoaffective disorder, bipolar type F25.0 and 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 [place] [id number] [place] [address] 61191- 1396 May, Left medial knee pain M25.562 ; GERD (gastroesophageal reflux disease) K21.9 ; Depression F32.9 ; Neuropathy G62.9 ; Obesity E66.9 ; Prediabetes R73.03 and Edema R60.9 [place] [address] 66517- 0903 14 Mar, 2017 [facility] [place] [address] [place] [address] 22767- 1755 Mar, [facility] [place] [id number] [place] [address] 53655- 5688 Mar, Post-menopausal bleeding N95.0 and BMI 50.0-59.9, adult Z68.43 [place] [id number] [place] [address] 81549- 3023 Mar, [facility] [place] [id number] [place] [address] 32090- 2278 Mar, Schizoaffective disorder, bipolar type F25.0 and 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 [place] [id number] [place] [address] 14864- 6469 Mar, [place] [id number] [place] [address] 93972- 6321 Mar, [place] [id number] [place] [address] 49712- 6584 Mar, Post-menopausal bleeding N95.0 ; Screening breast examination Z12.31 ; Screen for STD (sexually transmitted disease) Z11.3 ; Obesity E66.9 ; Family history of ovarian cancer Z80.41 and Family history of cervical cancer Z80.49 [place] [address] [address] Mar, [facility] [place] [id number] [place] [address] 73598- 3152 Mar, [facility] [place] [id number] [place] [address] 84772- 9777 Jan, Schizoaffective disorder, bipolar type F25.0 and 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 [facility] [place] [address] [address]- 6564 Jan, Schizoaffective disorder, bipolar type F25.0 [place] [address] [address]- 3652 18 Jan, 2017 [facility] [place] [id number] [place] [address] 84441- 6489 Jan, Prediabetes R73.03 and Obesity E66.9 [facility] [place] [id number] [place] [address] 79813- 4279 05 Jan, 2017 Encounter for immunization Z23 [facility] [place] [id number] [place] [address] 45684- 2518 Jan, [facility] [place] [id number] [place] [address] 23856- 2342 Dec, [facility] [place] [id number] [place] [address] 66809- 0024 Dec, [facility] [place] [id number] [place] [address] 30561- 5455 Nov, Neuropathy G62.9 [facility] [place] [id number] [place] [address] 72828- 1481 Nov, [facility] [place] [id number] [place] [address] 28276- 6051 Nov, Schizoaffective disorder, bipolar type F25.0 [facility] [place] [address] [place] [address] 56923- 3908 Nov, 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 and Schizoaffective disorder, bipolar type F25.0 [facility] [place] [address] [address]- 9680 Oct, Schizoaffective disorder, bipolar type F25.0 ; Other usp (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 Z79.899 and 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 [facility] [address] [id number] Oct, Dental caries K02.9 [facility] [place] [id number] [place] [address] 44681- 3971 Sep, Neuropathy G62.9 [place] [id number] [place] [address] 58222- 7951 Sep, [place] [address]006- 9843 Sep, Neuropathy G62.9 [place] [id number] [place] [address] 47566- 5968 Jul, Schizoaffective disorder, depressive type F25.1 [place] [address] 33898- 5884 Jul, GERD (gastroesophageal reflux disease) K21.9 ; Joint pain of lower extremity M25.50 ; Environmental allergies Z91.09 ; Stress incontinence of urine N39.3 ; Neuropathy G62.9 ; Edema R60.9 and Acute pain of left knee M25.562 [place] [address] 52404- 7055 Jun, [facility] [address] [id number] Jun, Dental examination Z01.20 [place] [id number] [place] [address] 29640- 4332 02 Jun, 2016 [place] [id number] [place] [address] 27893- 8272 May, [place] [address] 91129- 1305 May, Bipolar 1 disorder F31.9 ; Joint pain of lower extremity M25.50 ; Environmental allergies Z91.09 ; Stress incontinence of urine N39.3 ; Major depressive disorder, single episode, unspecified F32.9 ; Dizzy R42 ; Schizoaffective disorder, unspecified F25.9 ; Neuropathy G62.9 ; Localized edema R60.0 and GERD (gastroesophageal reflux disease) K21.9 [place] [id number] [place] [address] 31796- 9077 May, Schizoaffective disorder, depressive type F25.1 [place] [id number] [place] [address] 10405- 3928 May, Environmental allergies Z91.09 and Major depressive disorder , single episode, unspecified F32.9 [place] [id number] [place] [address] 66071- 5395 Mar, Dental caries K02.9 [place] [address] 62089- 0164 Mar, Dental caries on smooth surface penetrating into pulp K02.63 [facility] [place] [address] 82229 -5600 Mar, Peripheral edema R60.9 and Dry skin L85.3 [place] [address] 20003- 9569 Mar, [place] [address] 09354- 2001 Mar, Major depressive disorder, single episode, unspecified F32.9 [place] [address] 55406- 6653 Mar, Dental caries K02.9 [place] [id number] [place] [address] 07933- 2967 Mar, Diabetes mellitus with complication E11.8 ; Urinary frequency R35.0 ; Stress incontinence of urine N39.3 ; Joint pain of lower extremity M25.50 ; Obesity E66.9 ; Environmental allergies Z91.09 ; Depression F32.9 ; Schizoaffective disorder, unspecified F25.9 ; Vaginal discharge N89.8 and Vaginal candidiasis B37.3 [place] [id number] [place] [address] 78995- 2467 Jan, Schizoaffective disorder, unspecified F25.9 [place] [address] 30721- 2581 Jan, [place] [id number] [place] [address] 10561- 7685 30 Dec, 2015 [place] [address] 00548- 3364 19 Dec, 2015 Dental caries K02.9 [place] [address] 22080- 0613 14 Dec, 2015 Obesity E66.9 ; Edema R60.9 ; Depression F32.9 ; Bipolar 1 disorder F31.9 ; 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 ; Environmental allergies Z91.09 ; Shortness of breath R06.02 ; Gastroesophageal reflux disease with esophagitis K21.0 ; Other chronic pain G89.29 ; Pain in right knee M25.561 ; Pain in left knee M25.562 and Encounter for immunization Z23 [place] [address] 83391- 9386 Nov, Dental caries K02.9 [place] [address] 48121- 2585 Oct, Schizoaffective disorder, unspecified F25.9 [place] [address] 58805- 9879 Oct, Dental examination Z01.20 [place] [id number] [place] [address] 75686- 5795 Sep, Dental examination Z01.20 and Dental caries K02.9 [place] [id number] [place] [address] 61925- 0002 13 Sep, 2015 [place] [address] 85505- 8037 09 Sep, 2015 [place] [address] 48225- 1321 Sep, [place] [address] 67628- 9841 Sep, Schizoaffective disorder, unspecified F25.9 [facility] [place] [id number] [place] [address] 70285- 6328 August, Bipolar disorder, unspecified F31.9 [facility] [place] [address] 11887- 0896 Jul, Edema R60.9 and Obesity E66.9 [facility] [place] [address] 26353- 9192 Jul, Edema R60.9 [facility] [place] [address] 51692- 1308 Jul, Edema R60.9 [facility] [address] 29734 -7811 Jul, Edema R60.9 [facility] [place] [address] 51157- 1673 Jul, [facility] [place] [address] 02832- 2945 Jul, [facility] [place] [address] 74962- 7342 24 Jun, 2015 Environmental allergies V15.09 and Cough R05 [facility] [place] [address] 25667- 4371 17 Jun, 2015 Environmental allergies V15.09 ; Edema R60.9 and Cough R05 [facility] [id number] [place] [address] 07318 -5935 12 Jun, 2015 Bronchospasm J98.01 [facility] [place] [address] 82240- 6916 10 Jun, 2015 [facility] [place] [address] 82236- 2841 Jun, [facility] [place] [address] 81045- 0624 08 Jun, 2015 Environmental allergies V15.09 ; Bipolar 1 disorder F31.9 ; GERD (gastroesophageal reflux disease) K21.9 ; Depression F32.9 ; Joint pain of lower extremity M25.50 ; COPD (chronic obstructive pulmonary disease) J44.9 and Screening for diabetes mellitus Z13.1 [place] [id number] [place] [address] 76193- 4131 16 Jun, 2015 [place] [address] 76858- 4976 May, [place] [address] 48507- 3529 May, Schizoaffective disorder, unspecified F25.9 and Bipolar 1 disorder F31.9 [place] [address] 98538- 4760 May, [place] [address] 10132- 1283 May, URI (upper respiratory infection) J06.9 ; Environmental allergies V15.09 and Cough R05 [place] [id number] [place] [address] 46071- 6317 18 Mar, 2015 [place] [address] 19709- 1650 Mar, Vaginal discharge N89.8 [place] [address] 65831- 9387 14 Mar, 2015 Schizoaffective disorder, unspecified F25.9 ; Major depressive disorder, single episode, unspecified F32.9 and Bipolar 1 disorder F31.9 [place] [id number] [place] [address] 57618- 8480 Mar, [place] [address] 58184- 9453 Mar, Bipolar 1 disorder F31.9 [place] [id number] [place] [address] 96486- 0757 Jan, [place] [id number] [place] [address] 31598- 4748 Jan, Allergic rhinitis J30.9 and Cough R05 [place] [address] 57480- 6774 Jan, 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 ; Bipolar 1 disorder F31.9 ; GERD ( gastroesophageal reflux disease) K21.9 ; Depression F32.9 and Joint pain of lower extremity M25.50 [place] [address] 49071- 8044 Dec, Encounter for immunization Z23 [place] [address] 78304- 4470 Dec, Schizoaffective disorder, unspecified 295.70 ; Pain in joint , lower leg 719.46 ; Esophageal reflux 530.81 ; Bipolar 1 disorder 296.7 ; Depression 311 ; GERD (gastroesophageal reflux disease) 530.81 and Environmental allergies V15.09 [facility] [address] [id number] Nov, Dental examination V72.2 [place] [address] 76619- 7582 Nov, Acute bronchitis 466.0 [place] [address] 74546- 7451 Nov, Schizoaffective disorder, unspecified 295.70 and Bipolar disorder, unspecified 296.80 [facility] [id number] [place] [address] [id number] Sep, Dental examination V72.2 [facility] [address] [id number] August, Dental examination V72.2 [facility] [place] [address] 84578- 0554 August, Schizoaffective disorder, unspecified 295.70 [place] [address] 72093- 2282 August, [facility] [place] [address] [address]- 6862 August, Vomiting 787.03 [facility] [id number] [place] [address] 66917- 3317 August, Vomiting and diarrhea 787.03 and High risk medication use V58.69 [facility] [place] [id number] [place] [address] 52100- 2192 Jul, [facility] [id number] [place] [address] 59797- 0685 Jul, [facility] [id number] [place] [address] 02758- 0465 Jul, [facility] [place] [id number] [place] [address] 61802- 8612 Jun, [facility] [place] [id number] [place] [address] 96340- 8567 Jun, [facility] [id number] [place] [address] 57560- 1665 Jun, [facility] [place] [id number] [place] [address] 53794- 4960 Jun, [facility] [place] [address] [address]- 5871 16 Jun, 2014 [facility] [place] [id number] [place] [address] 83027- 5674 Jun, [facility] [address] [address]- 7277 Jun, [facility] [id number] [place] [address] 800929- 6663 Jun, [facility] [address] [address]- 5164 Jun, [facility] [id number] [place] [address] 96971- 6372 Mar, [facility] [place] [facility] [address] [id number] [place] [address] Mar, [facility] [place] [facility] [address] [id number] [place] [address] Mar, [facility] [place] [facility] [address] [facility] [id number] [place] [address] Mar, [facility] [place] [facility] [address] [id number] [place] [address] Mar, [facility] [place] [facility] [address] [facility] [id number] [place] [address] Mar, [facility] [place] [facility] [address] [facility] [id number] [place] [address] Mar, [facility] [place] [facility] [address] [facility] [id number] [place] [address] Mar, [facility] [place] [facility] [address] [facility] [id number] [place] [address]- [address] Mar, [facility] [place] [facility] [address] [facility] [id number] [place] [address] Mar, [facility] [place] [facility] [address] [facility] [id number] [place] [address]- [address] Jan, [facility] [place] [facility] [address] [facility] [id number] [address] 31 Jan, 2014 [facility] [place] [facility] [address] [facility] [id number], [place] [address] 31 Jan, 2014 [facility] [place] [facility] [address] [id number] [address] 31 Jan, 2014 [facility] [place] [facility] [address] [facility] [id number], [place] [address] 14 Jan, 2014 [facility] [place] [facility] [address] [facility] [id number], [place] [address] 14 Jan, 2014 [facility] [place] [facility] [address] [id number] [place] [address]- [address] Jan, [facility] [place] [facility] [address] [id number] [place] [address]- [address] Jan, [facility] [place] [facility] [address] [id number] [place] [address]- [address]46 19 Dec, 2013 [facility] [place] [facility] [address] [id number] [place] [address] 2546 19 Dec, 2013 [facility] [place] [facility] [address] [id number] [place] [address] 15 Dec, 2013 [facility] [place] [facility] [address] [id number] [place] [address]- [address] 15 Dec, 2013 [facility] [place] [facility] [address] [id number] [place] [address]- [address] 15 Dec, 2013 [facility] [place] [facility] [address] [id number] [place] [address]- [address] 15 Dec, 2013 [facility] [place] [facility] [address] [id number] [place] [address]- [address] 12 Dec, 2013 [facility] [place] [facility] [address] [id number] [place] [address]- [address] Dec, [facility] [place] [facility] [address] [id number] [place] [address] Dec, [facility] [place] [facility] [address] [id number] [place] [address] Dec, [facility] [place] [facility] [address] [id number] [place] [address] Nov, [facility] [place] [facility] [address] [id number] [place] [address] Nov, [facility] [place] [facility] [address] [id number] [place] [address] Nov, [facility] [place] [facility] [address] [id number] [place] [address] Nov, [facility] [place] [facility] [address] [id number] [place] [address] Oct, [facility] [place] [facility] [address] [id number] [place] [address] Oct, [facility] [place] [facility] [address] [id number] [place] [address] Oct, [facility] [place] [facility] [address] [id number] [place] [address] Oct, [facility] [place] [facility] [address] [id number] [place] [address] Sep, [facility] [place] [facility] [address] [id number] [place] [address] Sep, [facility] [place] [facility] [address] [id number] [place] [address]791 Sep, [facility] [place] [facility] [address] [id number] [place] [address] Sep, [facility] [place] [facility] [address] [id number] [place] [address] Sep, [facility] [place] [facility] [address] [id number] [place] [address]- 9469 Sep, [facility] [place] [facility] [address] [id number] [place] [address]- 3935 Sep, [facility] [place] [facility] [address] [id number], [place] [address] Sep, [facility] [place] [facility] [address] [id number] [place] [address] August, [facility] [place] [facility] [address] [id number] [place] [address] August, [facility] [place] [facility] [address] [id number] [place] [address] Jul, [facility] [place] [facility] [address] [id number] [place] [address]97 30 Jul, 2013 [facility] [place] [facility] [address] [id number] [place] [address] 4078 Jul, [facility] [place] [facility] [address] [id number] [place] [address] Jul, [facility] [place] [facility] [address] [id number] [place] [address]- 4764 Jul, [facility] [place] [facility] [address] [id number] [place] [address]- 4[address] Jul, [facility] [place] [facility] [address] [id number] [place] [address] 1087 Jul, [facility] [place] [facility] [address] [id number] [place] [address] 2359 Jul, [facility] [place] [facility] [address] [id number] [place] [address]- 8278 Jul, [facility] [place] [facility] [address] [id number] [place] [address] 1230 Jul, [facility] [place] [facility] [address] [id number] [place] [address] Jun, [facility] [place] [facility] [address] [id number] [place] [address]- 1578 27 Jun, 2013 [facility] [place] [facility] [address] [id number] [place] [address]- 4559 18 Jun, 2013 [facility] [place] [facility] [address] [id number] [place] [address]- 2681 18 Jun, 2013 [facility] [place] [facility] [address] [id number] [place] [address]- 6361 17 Jun, 2013 [facility] [place] [facility] [address] [id number] [place] [address] 1239 17 Jun, 2013 [facility] [place] [facility] [address] [id number] [place] [address] 17 Jun, 2013 [facility] [place] [facility] [address] [id number] [place] [address]- [address]447 17 Jun, 2013 [facility] [place] [facility] [address] [id number] [place] [address]993 Jun, [facility] [place] [facility] [address] [id number] [place] [address]- 1375 14 Jun, 2013 [facility] [place] [facility] [address] [id number] [place] [address] 5640 Jun, [facility] [place] [facility] [address] [id number] [place] [address] 5[address] Jun, [facility] [place] [facility] [address] [id number] [place] [address]- [address] Jun, [facility] [place] [facility] [address] [id number] [place] [address] 0200 Jun, [facility] [place] [facility] [address] [id number] [place] [address]- 9513 Jun, [facility] [place] [facility] [address] [id number] [place] [address]- 66[address] Jun, [facility] [place] [facility] [address] [id number] [place] [address]- 2845 May, [facility] [place] [facility] [address] [id number] [place] [address] 395[address] May, [facility] [place] [facility] [address] [id number] [place] [address]- 4418 May, [facility] [place] [facility] [address] [id number] [place] [address]- 2744 May, [facility] [place] [facility] [address] [id number] [place] [address]- 2066 Mar, [facility] [place] [facility] [address] [id number] [place] [address] 4040 Mar, [facility] [place] [facility] [address] [id number], [place] [address] Mar, [facility] [place] [facility] [address] [id number] [place] [address]- 9241 Mar, [facility] [place] [facility] [address] [id number], [place] [address] 8623 Mar, [facility] [place] [facility] [address] [facility] [id number] [place] [address]- 2228 Mar, [facility] [place] [facility] [address] [id number], [place] [address] 7038 Mar, [facility] [place] [facility] [address] [id number] [place] [address]- 5001 Mar, [facility] [place] [facility] [address] [id number] [place] [address]- 3352 Jan, [facility] [place] [facility] [address] [facility] [id number], [place] [address]- [address]58 Jan, [facility] [place] [facility] [address] [id number], [place] [address]- 5406 Jan, [facility] [place] [facility] [address] [facility] [id number], [place] [address]- 6725 Jan, [facility] [place] [facility] [address] [facility] [id number], [place] [address]- 5908 Jan, [facility] [place] [facility] [address] [id number], [place] [address]- 2837 Jan, [facility] [place] [facility] [address] [id number], [place] [address]- 4022 Jan, [facility] [place] [facility] [address] [id number], [place] [address] 0970 Dec, [facility] [place] [facility] [address] [facility] [id number], [place] [address] 2542 Nov, [facility] [place] [facility] [address] [facility] [id number], [place] [address]- 1080 Oct, [facility] [place] [facility] [address] [id number] [place] [address]- 3042 16 Oct, 2012 [facility] [place] [facility] [address] [id number] [place] [address] Sep, [facility] [place] [facility] [address] [id number] [place] [address]- 4211 Sep, [facility] [place] [facility] [address] [id number] [place] [address]- 7838 Sep, [facility] [place] [facility] [address] [id number] [place] [address]- 2627 August, [facility] [place] [facility] [address] [id number] [place] [address]- 7306 Jun, [facility] [place] [facility] [address] [id number] [place] [address]- 6672 Jun, [facility] [place] [facility] [address] [id number] [place] [address]- 2572 15 Jun, 2012 [facility] [place] [facility] [address] [id number] [place] [address]- 4327 15 Jun, 2012 [facility] [place] [facility] [address] [id number] [place] [address]- 3299 Jun, [facility] [place] [facility] [address] [id number] [place] [address]- 4814 Jun, [facility] [place] [facility] [address] [id number] [place] [address]- 4418 Jun, [facility] [place] [facility] [address] [id number] [place] [address]- 4939 May, [facility] [place] [facility] [address] [id number] [place] [address]- 2688 May, [facility] [place] [facility] [address] [id number] [place] [address]- 6596 14 May, 2012 [facility] [place] [facility] [address] [id number], [place] [address]- 6361 May, [facility] [address] [id number] [place] [address]- 7028 May, [facility] [place] [facility] [address] [id number] [place] [address]- 9571 May, [facility] [place] [facility] [address] [id number] [place] [address]- 2695 May, [facility] [place] [facility] [address] [id number] [place] [address]- 5096 Mar, [facility] [place] [facility] [address] [id number] [place] [address]- 1127 Mar, [facility] [place] [facility] [address] [id number] [place] [address]- 3529 Mar, [facility] [address] [id number] [place] [address]- 0386 Mar, [facility] [place] [facility] [address] [id number] [place] [address]- 0207 Mar, [facility] [place] [facility] [address] [id number] [place] [address]- 0651 Mar, [facility] [place] [facility] [address] [id number] [place] [address]- 2879 Mar, [facility] [place] [facility] [address] [id number] [place] [address]- 5522 Mar, [facility] [place] [facility] [address] [id number] [place] [address]- 9277 Mar, [facility] [place] [facility] [address] [id number] [place] [address]- 5608 Mar, [facility] [place] [facility] [address] [id number] [place] [address]- 4207 Mar, [facility] [place] [facility] [address] [id number] [place] [address]- 1642 Mar, [facility] [place] [facility] [address] [id number] [place] [address]- 2431 Mar, [facility] [place] [facility] [address] [id number] [place] [address]- 3812 Mar, [facility] [place] [facility] [address] [id number] [place] [address]- 8653 Mar, [facility] [place] [facility] [address] [id number] [place] [address]- 2693 Mar, [facility] [place] [facility] [address] [id number] [place] [address]- 0611 Mar, [facility] [place] [facility] [address] [id number] [place] [address]- 8581 Mar, [facility] [place] [facility] [address] [id number] [place] [address]- 1147 Mar, [facility] [place] [facility] [address] [id number] [place] [address]- 7288 Jan, [facility] [place] [facility] [address] [id number] [place] [address]- 9935 Jan, [facility] [place] [facility] [address] [id number] [place] [address]- 5676 Jan, [facility] [place] [facility] [address] [facility] [id number] [place] [address]- 1587 Jan, [facility] [place] [facility] [address] [id number] [place] [address]- 1301 Dec, [facility] [place] [facility] [address] [id number] [place] [address]- 7407 18 Dec, 2011 [facility] [place] [facility] [address] [id number] [place] [address]- 4085 Dec, [facility] [place] [facility] [address] [id number] [place] [address]- 3081 Nov, [facility] [place] [facility] [address] [id number] [place] [address]- 8604 Nov, [facility] [place] [address] [id number] [address]39 Oct, [facility] [place] [id number], [place] [address]- [address] Oct, [facility] [place] [address] [id number], [place] [address]- 8638 Oct, [facility] [place] [id number], [place] [address]- [address] Oct, [facility] [place] [id number], [place] [address]- 8162 Oct, [facility] [place] [id number], [place] [address]- 4743 Oct, IMMUNIZATIONS No Known Immunizations SOCIAL HISTORY Never Assessed REASON FOR VISIT refill request PLAN OF CARE VITAL SIGNS MEDICATIONS Medication Instructions Dosage Frequency Start Date End Date Duration Status Protonix 20 mg Orally Once a day 1 tablet 24h 30 Active RESULTS No Results PROCEDURES No [...] Medical History COPD suggestive by initial evaluation Surgical History right knee arthroscopy x2 2004, 2006 Hospitalization History surgery Hospitalization History hospitalized psychiatrically x4, last incident prior to 2006
--- OUTSIDE RECORDS SUMMARY | 2018-05-15 06:07 | XMS REPORT ---
Author Author LAZARA ARGUETA [facility] Address [address] [place] [address] Care Team Providers Care Product Safety Manager Name Role Phone LAZARA ARGUETA Unavailable PROBLEMS Type Condition ICD9-CM Code IAD39-PH Code Onset Dates Condition Status SNOMED Code Problem Edema R60.9 Active 971013936 Problem Major depressive disorder, single episode, unspecified F32.9 Active 67107434 Problem Environmental allergies Z91.09 Active 264963293 Problem Obstructive sleep apnea G47.33 Active 33367639 Problem GERD (gastroesophageal reflux disease) K21.9 Active 770615879 Problem Bipolar 1 disorder F31.9 Active 952719019 Problem Mixed hyperlipidemia E78.2 Active 210858856 Problem COPD suggested by initial evaluation J44.9 Active 75305408 Problem Schizoaffective disorder, bipolar type F25.0 Active 31452878 Problem Neuropathy G62.9 Active 709521273 Problem Morbid (severe) obesity due to excess calories E66.01 Active 655318558 Problem Primary osteoarthritis of left knee M17.12 Active 372419386 ALLERGIES Substance Reaction Event Type Date Status Sulfamethoxazole-Trimethoprim Unknown Drug Allergy Mar, Active Penicillin V Potassium rash Drug Allergy Mar, Active ENCOUNTERS Encounter Location Date Diagnosis [facility] [id number] [place] [address] 16433- 9368 May, [facility] [id number] [place] [address] 90384- 2125 Mar, Screening for breast cancer Z12.31 ; Screening for colon cancer Z12.11 and BMI 45.0-49.9, adult Z68.42 [facility] [address] [address] 3954 Mar, [facility] [id number] [place] [address] 10362- 7250 Mar, [facility] [id number] [place] [address] 40530- 4196 Mar, [facility] [id number] [place] [address] 67050- 0977 Jan, Schizoaffective disorder, bipolar type F25.0 and 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 [facility] [address] 14730- 5645 Jan, Prediabetes R73.03 and Mixed hyperlipidemia E78.2 [facility] [id number] [place] [address] 84667- 2107 Jan, Obstructive sleep apnea G47.33 ; Primary osteoarthritis of left knee M17.12 ; Prediabetes R73.03 ; Mixed hyperlipidemia E78.2 ; COPD suggested by initial evaluation J44.9 and BMI 45.0-49.9, adult Z68.42 [facility] [id number] [place] [address] 59504- 3946 Jan, Encounter for immunization Z23 [facility] [id number] [place] [address] 17943- 5039 Jan, [facility] [id number] [place] [address] 22228- 4640 Dec, [facility] [id number] [place] [address] 02967- 2878 Nov, Obstructive sleep apnea G47.33 and COPD suggested by initial evaluation J44.9 [facility] [id number] [place] [address] 27980- 9526 Nov, COPD (chronic obstructive pulmonary disease) J44.9 [facility] [id number] [place] [address] 05259- 5519 Nov, [facility] [id number] [place] [address] 08570- 2409 Oct, [facility] [address] [place] [address] 2365 Oct, [facility] [id number] [place] [address] 61528- 2324 Oct, Other residential (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 Z79.899 [facility] [address] [address] 3145 Oct, Schizoaffective disorder, bipolar type F25.0 ; 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 and Other residential (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 Z79.899 [facility] [id number] [place] [address] 98103- 4052 Oct, Prediabetes R73.03 ; COPD suggested by initial evaluation J44.9 ; BMI 45.0-49.9, adult Z68.42 and Obstructive sleep apnea G47.33 [facility] [id number] [place] [address] 05611- 8936 Sep, [facility] [id number] [place] [address] 73857- 8801 August, Neuropathy G62.9 [facility] [id number] [place] [address] 52220- 9915 August, [facility] [id number] [address] 6253 August, [facility] [id number] [address] 1870 Jul, [facility] [id number], [place] [address]- 9167 Jul, Primary osteoarthritis of left knee M17.12 [facility] [id number] [place] [address] 25953- 7650 Jul, Schizoaffective disorder, bipolar type F25.0 and 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 [facility] [address], [place] [address]- 7694 Jul, Prediabetes R73.03 ; Primary osteoarthritis of left knee M17.12 ; GERD (gastroesophageal reflux disease) K21.9 ; Bipolar 1 disorder F31.9 ; Depression F32.9 ; Environmental allergies Z91.09 ; Neuropathy G62.9 ; Edema R60.9 ; Body mass index (BMI) of 45.0-49.9 in adult Z68.42 and Morbid ( severe) obesity due to excess calories E66.01 [facility] [address] 38509- 3658 Jul, [facility] [address] 79427- 7337 Jun, [facility] [address] 88528- 9861 Jun, [facility] [address] 33348- 6445 Jun, Wound of right breast, initial encounter S21.001A and Prediabetes R73.03 [facility] [id number] [place] [address] 84512- 2474 Jun, [facility] [address] 54566- 1049 May, GERD (gastroesophageal reflux disease) K21.9 [facility] [id number] [place] [address] 56074- 6024 May, Primary osteoarthritis of left knee M17.12 [facility] [id number] [place] [address] 12176- 0675 May, Schizoaffective disorder, bipolar type F25.0 and 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 [facility] [address] 10888- 9942 May, Left medial knee pain M25.562 ; GERD (gastroesophageal reflux disease) K21.9 ; Depression F32.9 ; Neuropathy G62.9 ; Obesity E66.9 ; Prediabetes R73.03 and Edema R60.9 [facility] [address], [place] [address]- 5463 14 Mar, 2017 [facility] [id number] [place] [address] 63993- 1422 Mar, [facility] [id number] [place] [address] 13160- 3713 Mar, Post-menopausal bleeding N95.0 and BMI 50.0-59.9, adult Z68.43 [facility] [id number] [place] [address] 65852- 8398 Mar, [facility] [id number] [place] [address] 70415- 3874 Mar, Schizoaffective disorder, bipolar type F25.0 and 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 [facility] [id number] [place] [address] 53516- 7654 Mar, [facility] [id number] [place] [address] 70145- 4853 Mar, [facility] [id number] [place] [address] 75812- 7621 Mar, Post-menopausal bleeding N95.0 ; Screening breast examination Z12.31 ; Screen for STD (sexually transmitted disease) Z11.3 ; Obesity E66.9 ; Family history of ovarian cancer Z80.41 and Family history of cervical cancer Z80.49 [facility] [address] [address]- 9481 Mar, [facility] [address], [place] [address]- 9864 Mar, [facility] [id number] [place] [address] 73805- 1996 Jan, Schizoaffective disorder, bipolar type F25.0 and 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 [facility] [id number] [place] [address] 29662- 2627 Jan, Schizoaffective disorder, bipolar type F25.0 [facility] [address], [place] [address]- 2418 Jan, [facility] [id number] [place] [address] 76864- 9282 Jan, Prediabetes R73.03 and Obesity E66.9 [facility] [id number] [place] [address] 78362- 8521 Jan, Encounter for immunization Z23 [facility] [id number] [place] [address] 38197- 7797 Jan, [facility] [id number] [place] [address] 43884- 5623 Dec, [facility] [id number] [place] [address] 55956- 2513 Dec, [facility] [id number] [place] [address] 29472- 1973 Nov, Neuropathy G62.9 [facility] [id number] [place] [address] 28685- 2886 Nov, [facility] [id number] [place] [address] 24582- 2270 Nov, Schizoaffective disorder, bipolar type F25.0 [facility] [id number] [place] [address] 91448- 8349 Nov, Other residential (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 Z79.899 and Schizoaffective disorder, bipolar type F25.0 [facility] [address], [place] [address]- 2930 Oct, Schizoaffective disorder, bipolar type F25.0 ; Other residential (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 Z79.899 and 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 [facility] [address] [id number] [id number] Oct, Dental caries K02.9 [facility] [id number] [place] [address] 28482- 8593 Sep, Neuropathy G62.9 [facility] [address] 09513- 9345 Sep, [facility] [id number] [place] [address] 86031- 0324 Sep, Neuropathy G62.9 [facility] [id number] [place] [address] 11667- 5003 Jul, Schizoaffective disorder, depressive type F25.1 [facility] [id number] [place] [address] 00466- 4365 Jul, GERD (gastroesophageal reflux disease) K21.9 ; Joint pain of lower extremity M25.50 ; Environmental allergies Z91.09 ; Stress incontinence of urine N39.3 ; Neuropathy G62.9 ; Edema R60.9 and Acute pain of left knee M25.562 [facility] [id number] [place] [address] 37576- 8803 Jun, [facility] [address] [id number] Jun, Dental examination Z01.20 [facility] [id number] [place] [address] 70604- 4986 02 Jun, 2016 [facility] [id number] [place] [address] 56233- 2495 May, [facility] [id number] [place] [address] 94661- 4638 May, Bipolar 1 disorder F31.9 ; Joint pain of lower extremity M25.50 ; Environmental allergies Z91.09 ; Stress incontinence of urine N39.3 ; Major depressive disorder, single episode, unspecified F32.9 ; Dizzy R42 ; Schizoaffective disorder, unspecified F25.9 ; Neuropathy G62.9 ; Localized edema R60.0 and GERD (gastroesophageal reflux disease) K21.9 [facility] [id number] [place] [address] 35033- 7123 May, Schizoaffective disorder, depressive type F25.1 [facility] [address] 31881- 4606 May, Environmental allergies Z91.09 and Major depressive disorder , single episode, unspecified F32.9 [facility] [address] 60601- 6591 Mar, Dental caries K02.9 [facility] [address] 62112- 5102 Mar, Dental caries on smooth surface penetrating into pulp K02.63 [facility] [place] [address] 25236 -7607 Mar, Peripheral edema R60.9 and Dry skin L85.3 [facility] [address] 60576- 8732 Mar, [facility] [address] 89250- 6253 Mar, Major depressive disorder, single episode, unspecified F32.9 [facility] [id number] [place] [address] 56326- 9278 Mar, Dental caries K02.9 [facility] [id number] [place] [address] 77298- 3079 07 Mar, 2016 Diabetes mellitus with complication E11.8 ; Urinary frequency R35.0 ; Stress incontinence of urine N39.3 ; Joint pain of lower extremity M25.50 ; Obesity E66.9 ; Environmental allergies Z91.09 ; Depression F32.9 ; Schizoaffective disorder, unspecified F25.9 ; Vaginal discharge N89.8 and Vaginal candidiasis B37.3 [facility] [id number] [place] [address] 79303- 6455 Jan, Schizoaffective disorder, unspecified F25.9 [facility] [address] 39425- 1389 17 Jan, 2016 [facility] [address] 97985- 1526 30 Dec, 2015 [facility] [address] 51114- 1501 19 Dec, 2015 Dental caries K02.9 [facility] [address] 89827- 6674 14 Dec, 2015 Obesity E66.9 ; Edema R60.9 ; Depression F32.9 ; Bipolar 1 disorder F31.9 ; 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 ; Environmental allergies Z91.09 ; Shortness of breath R06.02 ; Gastroesophageal reflux disease with esophagitis K21.0 ; Other chronic pain G89.29 ; Pain in right knee M25.561 ; Pain in left knee M25.562 and Encounter for immunization Z23 [facility] [place] [address] 26482- 3822 Nov, Dental caries K02.9 [facility] [address] 73122- 0345 Oct, Schizoaffective disorder, unspecified F25.9 [facility] [address] 90022- 0927 12 Oct, 2015 Dental examination Z01.20 [facility] [address] 70747- 4162 Sep, Dental examination Z01.20 and Dental caries K02.9 [facility] [address] 99396- 7705 13 Sep, 2015 [facility] [address] 15717- 0581 09 Sep, 2015 [facility] [address] 20090- 4265 07 Sep, 2015 [facility] [address] 21368- 9485 Sep, Schizoaffective disorder, unspecified F25.9 [facility] [address] 90382- 8864 August, Bipolar disorder, unspecified F31.9 [facility] [address] 25091- 8478 Jul, Edema R60.9 and Obesity E66.9 [facility] [address] 65070- 6363 Jul, Edema R60.9 [facility] [address] 16565- 3214 Jul, Edema R60.9 [facility] [address] 70606 -1673 Jul, Edema R60.9 [facility] [address] 02209- 2684 Jul, [facility] [address] 58727- 8516 Jul, [facility] [address] 67656- 2146 24 Jun, 2015 Environmental allergies V15.09 and Cough R05 [facility] [address] 68110- 1072 17 Jun, 2015 Environmental allergies V15.09 ; Edema R60.9 and Cough R05 [facility] [id number] [place] [address] 04371 -6086 12 Jun, 2015 Bronchospasm J98.01 [facility] [address] 80916- 2106 10 Jun, 2015 [facility] [address] 82653- 3238 09 Jun, 2015 [facility] [address] 39652- 2760 Jun, Environmental allergies V15.09 ; Bipolar 1 disorder F31.9 ; GERD (gastroesophageal reflux disease) K21.9 ; Depression F32.9 ; Joint pain of lower extremity M25.50 ; COPD (chronic obstructive pulmonary disease) J44.9 and Screening for diabetes mellitus Z13.1 [facility] [address] 20577- 2600 16 Jun, 2015 [facility] [address] 41158- 2551 May, [facility] [address] 95679- 8827 May, Schizoaffective disorder, unspecified F25.9 and Bipolar 1 disorder F31.9 [facility] [address] 26396- 4027 May, [address] 17253- 7332 May, URI (upper respiratory infection) J06.9 ; Environmental allergies V15.09 and Cough R05 [address] 43962- 8937 18 Mar, 2015 [facility] [place] [address] 91846- 9401 Mar, Vaginal discharge N89.[address] 61860- 6468 14 Mar, 2015 Schizoaffective disorder, unspecified F25.9 ; Major depressive disorder, single episode, unspecified F32.9 and Bipolar 1 disorder F31.9 [facility] [address] 30529- 9436 30 Mar, 2015 [facility] [address] 19183- 4241 Mar, Bipolar 1 disorder F31.9 [facility] [address] 84099- 2939 Jan, [facility] [id number] [place] [address] 27344- 6763 Jan, Allergic rhinitis J30.9 and Cough R05 [facility] [id number] [place] [address] 73523- 3273 Jan, 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 ; Bipolar 1 disorder F31.9 ; GERD ( gastroesophageal reflux disease) K21.9 ; Depression F32.9 and Joint pain of lower extremity M25.50 [facility] [id number] [place] [address] 99283- 8351 Dec, Encounter for immunization Z23 [facility] [address] 61509- 8558 Dec, Schizoaffective disorder, unspecified 295.70 ; Pain in joint , lower leg 719.46 ; Esophageal reflux 530.81 ; Bipolar 1 disorder 296.7 ; Depression 311 ; GERD (gastroesophageal reflux disease) 530.81 and Environmental allergies V15.09 [facility] [address] [id number] Nov, Dental examination V72.2 [facility] [id number] [place] [address] 41849- 6435 Nov, Acute bronchitis 466.0 [facility] [id number] [place] [address] 74504- 0107 Nov, Schizoaffective disorder, unspecified 295.70 and Bipolar disorder, unspecified 296.80 [facility] [id number] [place] [address] [id number] Sep, Dental examination V72.2 [facility] [address] [id number] August, Dental examination V72.2 [facility] [id number] [place] [address] 87862- 7055 August, Schizoaffective disorder, unspecified 295.70 [facility] [address], [place] [address]- 2475 August, [facility] [address], [place] [address]- 0506 August, Vomiting 787.03 [facility] [address], [place] [address]- 4457 August, Vomiting and diarrhea 787.03 and High risk medication use V58.69 [facility] [address], [place] [address]- 4445 30 Jul, 2014 [facility] [address] [place] [address] 32299- 3743 Jul, [facility] [id number] [place] [address] 73071- 0009 Jul, [facility] [id number] [place] [address] 04155- 1219 Jun, [facility] [address], [place] [address]- 4509 Jun, [facility] [address], [place] [address]- 1301 Jun, [facility] [address], [place] [address]- 5199 Jun, [facility] [address] [address]- 0810 16 Jun, 2014 [facility] [address], [place] [address]- 9653 Jun, [facility] [address], [place] [address]- 1292 Jun, [facility] [address], [place] [address]- 3526 Jun, [facility] [address] [address]- 7463 Jun, [facility] [place] [facility] [address] [id number] [place] [address]- 6945 Mar, [facility] [place] [facility] [address] [id number] [place] 2489 Mar, [facility] [place] [facility] [address] [id number] [place] [address]- 9754 Mar, [facility] [place] [facility] [address] [id number] [place] [address]- 2874 Mar, [facility] [place] [facility] [address] [id number] [place] [address]- 0647 Mar, [facility] [place] [facility] [address] [id number] [place] [address]- 3510 Mar, [facility] [place] [facility] [address] [id number] [place] [address]- 2704 Mar, [facility] [place] [facility] [address] [id number] [place] [address]- 9595 Mar, [facility] [place] [facility] [address] [id number] [place] [address]- 7822 Mar, [facility] [place] [facility] [address] [id number] [place] [address]- 0125 Mar, [facility] [place] [facility] [address] [id number] [place] [address]- 3680 Jan, [facility] [place] [facility] [address] [id number], [place] [address]- 1863 31 Jan, 2014 [facility] [place] [facility] [address] [id number] [place] [address]- 6783 Jan, [facility] [place] [facility] [address] [id number] [place] [address]- 2170 31 Jan, 2014 [facility] [place] [facility] [address] [id number] [place] 0047 14 Jan, 2014 [facility] [place] [facility] [address] [id number], [place] [address]- 7752 14 Jan, 2014 [facility] [place] [facility] [address] [id number] [place] [address]- 6312 Jan, [facility] [place] [facility] [address] [id number] [place] [address]- 3339 Jan, [facility] [place] [facility] [address] [id number] [place] [address] 19 Dec, 2013 [facility] [place] [facility] [address] [id number] [place] [address] 19 Dec, 2013 [facility] [place] [facility] [address] [id number] [place] [address] 15 Dec, 2013 [facility] [place] [facility] [address] [id number] [place] [address] 15 Dec, 2013 [facility] [place] [facility] [address] [id number] [place] [address] 15 Dec, 2013 [facility] [place] [facility] [address] [id number] [place] [address] 15 Dec, 2013 [facility] [place] [facility] [address] [id number] [place] [address] 12 Dec, 2013 [facility] [place] [facility] [address] [id number] [place] [address] 12 Dec, 2013 [facility] [place] [facility] [address] [id number] [place] [address] Dec, [facility] [place] [facility] [address] [id number] [place] [address] Dec, [facility] [place] [facility] [address] [id number] [place] [address] Nov, [facility] [place] [facility] [address] [id number] [place] [address] Nov, [facility] [place] [facility] [address] [id number] [place] [address] Nov, [facility] [place] [facility] [address] [id number] [place] [address] Nov, [facility] [place] [facility] [address] [id number] [place] [address] Oct, [facility] [place] [facility] [address] [id number] [place] [address] Oct, [facility] [place] [facility] [address] [id number] [place] [address] Oct, [facility] [place] [facility] [address] [id number] [place] [address] Oct, [facility] [place] [facility] [address] [id number] [place] [address] Sep, [facility] [place] [facility] [address] [id number] [place] [address] Sep, [facility] [place] [facility] [address] [id number] [place] [address] Sep, [facility] [place] [facility] [address] [id number] [place] [address] Sep, [facility] [place] [facility] [address] [id number] [place] [address] Sep, [facility] [place] [facility] [address] [id number] [place] [address] Sep, [facility] [place] [facility] [address] [id number] [place] [address] Sep, [facility] [place] [facility] [address] [id number] [place] [address] Sep, [facility] [place] [facility] [address] [id number] [place] [address] August, [facility] [facility] [address] [id number] [place] [address] August, [facility] [place] [facility] [address] [id number] [place] [address] Jul, [facility] [place] [facility] [address] [id number] [place] [address] Jul, [facility] [place] [facility] [address] [id number] [place] [address] Jul, [facility] [place] [facility] [address] [id number] [place] [address] Jul, [facility] [place] [facility] [address] [id number] [place] [address] Jul, [facility] [place] [facility] [address] [id number] [place] [address] Jul, [facility] [place] [facility] [address] [id number] [place] [address] Jul, [facility] [place] [facility] [address] [id number] [place] [address] Jul, [facility] [place] [facility] [address] [id number] [place] [address] Jul, [facility] [place] [facility] [address] [id number] [place] [address] Jul, [facility] [place] [facility] [address] [id number] [place] [address] Jun, [facility] [place] [facility] [address] [id number] [place] [address] Jun, [facility] [place] [facility] [address] [id number] [place] [address] 18 Jun, 2013 [facility] [facility] [address] [id number] [place] [address]- [address]283 18 Jun, 2013 [facility] [place] [facility] [address] [id number] [place] [address] 7911 17 Jun, 2013 [facility] [place] [facility] [address] [id number] [place] [address] 17 Jun, 2013 [facility] [place] [facility] [address] [id number] [place] [address]- [address]783 17 Jun, 2013 [facility] [place] [address] [id number] [place] [address]- [address]29 17 Jun, 2013 [facility] [place] [address] [id number] [place] [address]- [address] 14 Jun, 2013 [facility] [address] [id number] [place] [address]- [address] 14 Jun, 2013 [facility] [address] [id number] [place] [address]- [address] Jun, [facility] [address] [id number] [place] [address] Jun, [facility] [address] [id number] [place] [address]- [address] Jun, [facility] [address] [id number] [place] [address] 5870 Jun, [facility] [address] [id number] [place] [address] 7709 Jun, [facility] [address] [id number] [place] [address]- [address]41 Jun, [facility] [address] [id number] [place] [address]- 1594 May, [facility] [address] [id number] [place] [address] May, [facility] [address] [id number] [place] [address] 7899 May, [facility] [address] [id number] [place] [address]- 2697 May, [facility] [address] [id number] [place] [address] 58[address] Mar, [facility] [address] [id number] [place] [address] Mar, [facility] [address] [id number] [place] [address] 2544 Mar, [facility] [address] [id number] [place] [address]- [address] Mar, [facility] [address] [id number] [place] [address]- 2542 Mar, [facility] [address] [id number] [place] [address] 2545 Mar, [facility] [address] [id number] [place] [address]- 9426 Mar, [facility] [address] [id number] [place] [address]- 1286 Mar, [facility] [address] [id number] [place] [address] Jan, [facility] [address] [id number] [place] [address]- [address] Jan, [facility] [address] [id number] [place] [address]- [address] Jan, [facility] [address] [id number] [place] [address]- 5976 Jan, [facility] [address] [id number] [place] [address]- [address] Jan, [facility] [address] [id number], [place] [address] Jan, [facility] [address] [id number] [place] [address]- 2540 Jan, [facility] [address] [id number] [place] [address]- [address]46 Dec, [facility] [address] [id number] [place] [address]- [address]46 Nov, [facility] [address] [id number], [place] [address]- [address] Oct, [facility] [address] [id number] [place] [address]- 9737 Oct, [facility] [address] [id number] [place] [address]- 75[address] Sep, [facility] [address] [id number] [place] [address]- 9301 Sep, [facility] [address] [id number] [place] [address]- 8420 Sep, [facility] [address] [id number] [place] [address]- [address]679 August, [facility] [address] [id number] [place] [address]- 9600 Jun, [facility] [address] [facility] [id number] [place] [address]- [address]25 20 Jun, 2012 [facility] [address] [id number] [place] [address]- [address]28 15 Jun, 2012 [facility] [address] [id number] [place] [address]- [address] 15 Jun, 2012 [facility] [address] [facility] [id number] [place] [address]- 3734 Jun, [facility] [address] [id number] [place] [address]- 1559 Jun, [facility] [address] [id number], [place] [address] Jun, [facility] [address] [id number] [place] [address]- 7440 May, [facility] [address] [id number], [place] [address] 8608 May, [facility] [address] [id number], [place] [address] 14 May, 2012 [facility] [address] [id number] [place] [address]- 6109 May, [facility] [address] [id number] [place] [address]- 3017 May, [facility] [address] [id number] [place] [address]- 8103 May, [facility] [address] [id number] [place] [address]- 4365 May, [facility] [address] [id number] [place] [address]- 1417 Mar, [facility] [address] [id number] [place] [address]- 4213 Mar, [facility] [address] [id number] [place] [address]- 1550 Mar, [facility] [address] [id number] [place] [address]- 9568 Mar, [facility] [address] [id number] [place] [address]- 6637 Mar, [facility] [address] [id number] [place] [address]- 6662 Mar, [facility] [address] [id number] [place] [address]- 0361 Mar, [facility] [address] [id number] [place] [address]- 0137 Mar, [facility] [address] [id number] [place] [address]- 9160 Mar, [facility] [address] [id number] [place] [address]- 8787 Mar, [facility] [address] [id number] [place] [address]- 0052 Mar, [facility] [address] [id number], [place] [address]- 8713 Mar, [facility] [address] [id number] [place] [address]- 3196 Mar, [facility] [address] [id number] [place] [address]- 2454 Mar, [facility] [address] [facility] [id number] [place] [address]- 8558 Mar, [facility] [address] [id number], [place] [address]- 1686 Mar, [facility] [address] [id number] [place] [address]- 6024 Mar, [facility] [address] [id number] [place] [address]- 3175 Mar, [facility] [address] [facility] [id number] [place] [address]- 5303 Mar, [facility] [address] [id number], [place] [address]- 9976 Jan, [facility] [address] [id number], [place] [address]- [address] Jan, [facility] [address] [id number], [place] [address]- [address] Jan, [facility] [address] [id number], [place] [address]- 2251 Jan, [facility] [address] [id number], [place] [address]- 4991 Dec, [facility] [address] [id number] [place] [address]- 4796 18 Dec, 2011 [facility] [address] [facility] [id number], [place] [address]- [address] Dec, [facility] [address] [facility] [id number] [place] [address]- 6283 Nov, [facility] [address] [id number], [place] [address] Nov, [facility] [address] [id number], [place] [address]- [address] Oct, [facility] [id number], [place] [address]- [address] Oct, [facility] [id number], [place] [address]- [address] Oct, [facility] [id number], [place] [address]- [address] Oct, [facility] [id number], [place] [address]- 266[address] Oct, [facility] [address] [id number], [place] [address]- [address] Oct, IMMUNIZATIONS No Known Immunizations SOCIAL HISTORY Never Assessed REASON FOR VISIT Breast exam- TAHIR Wu PLAN OF CARE Activity Details Follow Up 1 Year Reason:WWE Pending Test Mammogram, Bilateral Screening Pending Test COLOGUARD FITDNA (OUTSIDE ORDER) VITAL SIGNS Height 63 in 2018-03-19 Weight 275.1 lbs 2018-03-19 Temperature 97.0 degrees Fahrenheit 2018-03-19 Heart Rate 74 bpm 2018-03-19 Respiratory Rate 18 2018-03-19 BMI 48.73 kg/m2 2018-03-19 Blood pressure systolic 110 mmHg 2018-03-19 Blood pressure diastolic 64 mmHg 2018-03-19 MEDICATIONS Medication Instructions Dosage Frequency Start Date End Date Duration Status Meloxicam 7.5 MG Orally 2 times a day 1 tablet 12h 90 days Active Flonase 50 MCG/ACT Nasally Once a day 1 spray in each nostril 24h 30 Active Zyrtec Allergy 10 MG TAKE ONE TABLET BY MOUTH ONCE DAILY Active Gabapentin 300 MG Orally Three times a day 1 capsule 8h 30 Active Protonix 20 mg Orally Once a day 1 tablet 24h 30 Active MetFORMIN HCl ER 500 mg Orally Once a day 1 tablet with evening meal 24h 10 Jan, 2017 Not-Taking C-PAP Supplies as directed Dec, Active Albuterol Sulfate HFA 108 (90 Base) MCG/ACT Inhalation every 4 hrs 2 puffs as needed 4h May, 12 months Active Hydrochlorothiazide 50 MG TAKE ONE TABLET BY MOUTH ONCE DAILY 30 Active Risperdal 1 MG TAKE ONE TABLET BY MOUTH TWICE DAILY Active Albuterol Sulfate 0.63 MG/3ML Inhalation every 4 hrs 3 ml as needed 4h Jun, 12 months Active Lamictal 150 MG TAKE ONE TABLET BY MOUTH ONCE DAILY Active Citalopram Hydrobromide 40 MG TAKE ONE (1) TABLET BY MOUTH ONCE DAILY Active RESULTS No Results PROCEDURES No Known [...] evaluation Medical History Methamphetamine abuse in remission Surgical History right knee arthroscopy x2 2004, 2006 Hospitalization History surgery Hospitalization History hospitalized psychiatrically x4, last incident prior to 2006
--- OUTSIDE RECORDS SUMMARY | 2018-05-15 06:08 | XMS REPORT ---
Author Author AZUL LARSEN [facility] Address [address] [place] [address] Care Team Providers Care Dock Hand Name Role Phone CHAVAAZUL Unavailable PROBLEMS Type Condition ICD9-CM Code [id number] Code Onset Dates Condition Status SNOMED Code Problem Major depressive disorder, single episode, unspecified F32.9 Active 67197711 Problem Schizoaffective disorder, bipolar type F25.0 Active 35942828 Problem Neuropathy G62.9 Active 238593142 Problem COPD suggested by initial evaluation J44.9 Active 69768065 Problem Body mass index (BMI) of 45.0-49.9 in adult Z68.42 Active 498862692 Problem Post-menopausal bleeding N95.0 Active 76693260 Problem 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 Active 329948245 Problem Morbid (severe) obesity due to excess calories E66.01 Active 021978545 Problem Primary osteoarthritis of left knee M17.12 Active 450605366 Problem Obstructive sleep apnea G47.33 Active 08153836 Problem Bipolar 1 disorder F31.9 Active 563131748 Problem Edema R60.9 Active 078185322 Problem Depression F32.9 Active 35125335 Problem Obesity E66.9 Active 674368425 Problem GERD (gastroesophageal reflux disease) K21.9 Active 338465986 Problem Environmental allergies Z91.09 Active 913374619 ALLERGIES No Information ENCOUNTERS Encounter Location Date Diagnosis [facility] [address], [place] [address] Jan, [facility] [id number] [place] [address] 43968- 7020 Jan, [facility] [address], [place] [address] Jan, Encounter for immunization Z23 [facility] [id number] [place] [address] 57676- 8949 Jan, [facility] [address], [place] [address] 26[address] Dec, [facility] [id number] [place] [address] 01583- 0110 Nov, Obstructive sleep apnea G47.33 and COPD suggested by initial evaluation J44.9 [facility] [id number] [place] [address] 03804- 2942 Nov, COPD (chronic obstructive pulmonary disease) J44.9 [facility] [id number] [place] [address] 60565- 1283 Nov, [facility] [id number] [place] [address] 97499- 4116 Oct, [facility] [id number] [place] [address] 32960- 2076 Oct, [facility] [id number] [place] [address] 78560- 7835 Oct, Other alf (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 Z79.899 [facility] [id number] [place] [address] 81885- 7389 Oct, Schizoaffective disorder, bipolar type F25.0 ; 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 and 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 [facility] [id number] [place] [address] 10453- 0178 Oct, Prediabetes R73.03 ; COPD suggested by initial evaluation J44.9 ; BMI 45.0-49.9, adult Z68.42 and Obstructive sleep apnea G47.33 [facility] [id number] [place] [address] 72289- 5419 Sep, [facility] [id number] [place] [address] 77687- 6461 August, Neuropathy G62.9 [facility] [id number] [place] [address] 17167- 9454 August, [facility] [id number] [place] [address] 53449- 5662 August, [facility] [id number] [place] [address] 01065- 5952 Jul, [facility] [id number] [place] [address] 39054- 2331 Jul, Primary osteoarthritis of left knee M17.12 [facility] [id number] [place] [address] 02793- 0961 Jul, Schizoaffective disorder, bipolar type F25.0 and 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 [facility] [address] 61123- 4790 Jul, Prediabetes R73.03 ; Primary osteoarthritis of left knee M17.12 ; GERD (gastroesophageal reflux disease) K21.9 ; Bipolar 1 disorder F31.9 ; Depression F32.9 ; Environmental allergies Z91.09 ; Neuropathy G62.9 ; Edema R60.9 ; Body mass index (BMI) of 45.0-49.9 in adult Z68.42 and Morbid ( severe) obesity due to excess calories E66.01 [facility] [id number] [place] [address] 07070- 2286 Jul, [facility] [id number] [place] [address] 77543- 8838 Jun, [facility] [id number] [place] [address] 12932- 9159 Jun, [facility] [id number] [place] [address] 94159- 5693 Jun, Wound of right breast, initial encounter S21.001A and Prediabetes R73.03 [facility] [id number] [place] [address] 95135- 8627 Jun, [facility] [address] [place] [address] 0379 May, GERD (gastroesophageal reflux disease) K21.9 [facility] [address] 14799- 4233 May, Primary osteoarthritis of left knee M17.12 [facility] [id number] [place] [address] 14840- 3344 May, Schizoaffective disorder, bipolar type F25.0 and 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 [facility] [id number] [place] [address] 52660- 7608 May, Left medial knee pain M25.562 ; GERD (gastroesophageal reflux disease) K21.9 ; Depression F32.9 ; Neuropathy G62.9 ; Obesity E66.9 ; Prediabetes R73.03 and Edema R60.9 [facility] [id number] [place] [address] 82749- 3753 14 Mar, 2017 [facility] [address] 07677- 5865 08 Mar, 2017 [facility] [address] 62245- 1180 05 Mar, 2017 Post-menopausal bleeding N95.0 and BMI 50.0-59.9, adult Z68.43 [facility] [id number] [place] [address] 15632- 6995 Mar, [facility] [id number] [place] [address] 76315- 2445 Mar, Schizoaffective disorder, bipolar type F25.0 and 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 [facility] [id number] [place] [address] 48243- 5604 27 Mar, 2017 [facility] [id number] [place] [address] 51541- 3997 16 Mar, 2017 [facility] [address] 42943- 2635 Mar, Post-menopausal bleeding N95.0 ; Screening breast examination Z12.31 ; Screen for STD (sexually transmitted disease) Z11.3 ; Obesity E66.9 ; Family history of ovarian cancer Z80.41 and Family history of cervical cancer Z80.49 [facility] [id number] [place] [address] 35746- 0435 Mar, [facility] [address] 50658- 7713 Mar, [facility] [id number] [place] [address] 15148- 1217 Jan, Schizoaffective disorder, bipolar type F25.0 and 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 [facility] [id number] [place] [address] 31917- 3346 Jan, Schizoaffective disorder, bipolar type F25.0 [facility] [id number] [place] [address] 27059- 2653 Jan, [facility] [id number] [place] [address] 40215- 7130 Jan, Prediabetes R73.03 and Obesity E66.9 [facility] [id number] [place] [address] 14278- 9695 Jan, Encounter for immunization Z23 [facility] [id number] [place] [address] 56276- 6330 Jan, [facility] [id number] [place] [address] 94980- 3364 Dec, [facility] [id number] [place] [address] 85025- 3119 Dec, [facility] [id number] [place] [address] 34163- 2271 Nov, Neuropathy G62.9 [facility] [id number] [place] [address] 43838- 6090 Nov, [facility] [id number] [place] [address] 24143- 4051 Nov, Schizoaffective disorder, bipolar type F25.0 [facility] [id number] [place] [address] 98522- 6132 Nov, Other alf (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 Z79.899 and Schizoaffective disorder, bipolar type F25.0 [facility] [address] 98028- 2666 Oct, Schizoaffective disorder, bipolar type F25.0 ; 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 and 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 [facility] [id number] [place] [address] [id number] Oct, Dental caries K02.9 [facility] [address] 76893- 4420 Sep, Neuropathy G62.9 [facility] [address] 83511- 9619 Sep, [facility] [address] 14335- 7569 Sep, Neuropathy G62.9 [facility] [address] 60687- 7420 Jul, Schizoaffective disorder, depressive type F25.1 [facility] [id number] [place] [address] 44318- 1957 Jul, GERD (gastroesophageal reflux disease) K21.9 ; Joint pain of lower extremity M25.50 ; Environmental allergies Z91.09 ; Stress incontinence of urine N39.3 ; Neuropathy G62.9 ; Edema R60.9 and Acute pain of left knee M25.562 [facility] [id number] [place] [address] 81434- 4161 Jun, [facility] [address] [id number] Jun, Dental examination Z01.20 [facility] [id number] [place] [address] 61710- 5995 Jun, [facility] [id number] [place] [address] 25600- 3067 May, [facility] [id number] [place] [address] 63745- 7318 May, Bipolar 1 disorder F31.9 ; Joint pain of lower extremity M25.50 ; Environmental allergies Z91.09 ; Stress incontinence of urine N39.3 ; Major depressive disorder, single episode, unspecified F32.9 ; Dizzy R42 ; Schizoaffective disorder, unspecified F25.9 ; Neuropathy G62.9 ; Localized edema R60.0 and GERD (gastroesophageal reflux disease) K21.9 [facility] [id number] [place] [address] 37948- 4107 May, Schizoaffective disorder, depressive type F25.1 [facility] [id number] [place] [address] 24677- 6890 May, Environmental allergies Z91.09 and Major depressive disorder , single episode, unspecified F32.9 [facility] [id number] [place] [address] 58608- 7358 Mar, Dental caries K02.9 [facility] [id number] [place] [address] 25535- 0218 Mar, Dental caries on smooth surface penetrating into pulp K02.63 [facility] [address] [place] [address] 73602 -0075 Mar, Peripheral edema R60.9 and Dry skin L85.3 [facility] [id number] [place] [address] 45502- 4746 Mar, [facility] [address] [place] [address] 39315- 1930 Mar, Major depressive disorder, single episode, unspecified F32.9 [facility] [id number] [place] [address] 88169- 4420 09 Mar, 2016 Dental caries K02.9 [facility] [address] 03028- 2170 07 Mar, 2016 Diabetes mellitus with complication E11.8 ; Urinary frequency R35.0 ; Stress incontinence of urine N39.3 ; Joint pain of lower extremity M25.50 ; Obesity E66.9 ; Environmental allergies Z91.09 ; Depression F32.9 ; Schizoaffective disorder, unspecified F25.9 ; Vaginal discharge N89.8 and Vaginal candidiasis B37.3 [facility] [address] 24902- 3897 Jan, Schizoaffective disorder, unspecified F25.9 [facility] [address] 05227- 8221 Jan, [facility] [address] 52202- 1335 30 Dec, 2015 [facility] [address] 66816- 8395 19 Dec, 2015 Dental caries K02.9 [facility] [id number] [place] [address] 46653- 7031 14 Dec, 2015 Obesity E66.9 ; Edema R60.9 ; Depression F32.9 ; Bipolar 1 disorder F31.9 ; 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 ; Environmental allergies Z91.09 ; Shortness of breath R06.02 ; Gastroesophageal reflux disease with esophagitis K21.0 ; Other chronic pain G89.29 ; Pain in right knee M25.561 ; Pain in left knee M25.562 and Encounter for immunization Z23 [facility] [id number] [place] [address] 44639- 0317 08 Nov, 2015 Dental caries K02.9 [facility] [address] 07997- 1906 Oct, Schizoaffective disorder, unspecified F25.9 [facility] [address], [place] [address]- 8229 12 Oct, 2015 Dental examination Z01.20 [facility] [id number] [place] [address] 31711- 7697 20 Sep, 2015 Dental examination Z01.20 and Dental caries K02.9 [facility] [id number] [place] [address] 98530- 4744 13 Sep, 2015 [facility] [id number] [place] [address] 70508- 8554 Sep, [facility] [id number] [place] [address] 85403- 6186 Sep, [facility] [id number] [place] [address] 85996- 7637 Sep, Schizoaffective disorder, unspecified F25.9 [facility] [id number] [place] [address] 10683- 7916 August, Bipolar disorder, unspecified F31.9 [facility] [id number] [place] [address] 09302- 6288 Jul, Edema R60.9 and Obesity E66.9 [facility] [id number] [place] [address] 98216- 3880 Jul, Edema R60.9 [facility] [id number] [place] [address] 37321- 1835 Jul, Edema R60.9 [facility] [id number] [place] [address] 30032 -2495 Jul, Edema R60.9 [facility] [id number] [place] [address] 77938- 8661 Jul, [facility] [id number] [place] [address] 42494- 7082 Jul, [facility] [id number] [place] [address] 42680- 7004 24 Jun, 2015 Environmental allergies V15.09 and Cough R05 [facility] [address] 41833- 4234 17 Jun, 2015 Environmental allergies V15.09 ; Edema R60.9 and Cough R05 [facility] [address] 10023 -4487 12 Jun, 2015 Bronchospasm J98.01 [facility] [address] 04080- 1500 Jun, [facility] [address] 07814- 3699 Jun, [facility] [address] 77322- 5845 08 Jun, 2015 Environmental allergies V15.09 ; Bipolar 1 disorder F31.9 ; GERD (gastroesophageal reflux disease) K21.9 ; Depression F32.9 ; Joint pain of lower extremity M25.50 ; COPD (chronic obstructive pulmonary disease) J44.9 and Screening for diabetes mellitus Z13.1 [facility] [address] 34117- 3371 Jun, [facility] [address] 56211- 6679 May, [facility] [id number] [place] [address] 18171- 8354 May, Schizoaffective disorder, unspecified F25.9 and Bipolar 1 disorder F31.9 [facility] [address] 39164- 4930 May, [facility] [address] 38747- 7225 May, URI (upper respiratory infection) J06.9 ; Environmental allergies V15.09 and Cough R05 [facility] [address] 36667- 6575 18 Mar, 2015 [facility] [address] 80484- 1577 Mar, Vaginal discharge N89.8 [facility] [address] 59122- 7187 14 Mar, 2015 Schizoaffective disorder, unspecified F25.9 ; Major depressive disorder, single episode, unspecified F32.9 and Bipolar 1 disorder F31.9 [facility] [address] 07704- 6674 Mar, [facility] [address] 19134- 5479 Mar, Bipolar 1 disorder F31.9 [facility] [address] 63272- 0565 Jan, [facility] [address] 10941- 3160 Jan, Allergic rhinitis J30.9 and Cough R05 [facility] [address] 66882- 2051 Jan, 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 ; Bipolar 1 disorder F31.9 ; GERD ( gastroesophageal reflux disease) K21.9 ; Depression F32.9 and Joint pain of lower extremity M25.50 [facility] [address] 10280- 4553 Dec, Encounter for immunization Z23 [facility] [address] 97590- 9713 02 Dec, 2014 Schizoaffective disorder, unspecified 295.70 ; Pain in joint , lower leg 719.46 ; Esophageal reflux 530.81 ; Bipolar 1 disorder 296.7 ; Depression 311 ; GERD (gastroesophageal reflux disease) 530.81 and Environmental allergies V15.09 [facility] [id number] [place] [address] [id number] Nov, Dental examination V72.2 [facility] [address], [place] [address]- 7846 Nov, Acute bronchitis 466.0 [facility] [id number] [place] [address] 50511- 5876 Nov, Schizoaffective disorder, unspecified 295.70 and Bipolar disorder, unspecified 296.80 [facility] [id number] [place] [address] [id number] Sep, Dental examination V72.2 [facility] [id number] [place] [address] [id number] August, Dental examination V72.2 [facility] [id number] [place] [address] 42400- 8456 August, Schizoaffective disorder, unspecified 295.70 [facility] [id number] [place] [address] 49679- 3766 August, [facility] [id number] [place] [address] 37236 2546 August, Vomiting 787.03 [facility] [id number] [place] [address] 58248- 3986 August, Vomiting and diarrhea 787.03 and High risk medication use V58.69 [facility] [address], [place] [address]- 2736 Jul, [facility] [id number] [place] [address] 26950- 1386 Jul, [facility] [id number] [place] [address] 41664- 9526 Jul, [facility] [id number] [place] [address] 31979- 7686 Jun, [facility] [id number] [place] [address] 02108- 3956 Jun, [facility] [id number] [place] [address] 30267- 9545 17 Jun, 2014 [facility] [place] [facility] [address] [id number] [place] [address]- 6970 17 Jun, 2014 [facility] [place] [facility] [address] [id number] [place] [address]- 8076 16 Jun, 2014 [facility] [place] [facility] [address] [id number] [place] [address]- 2966 13 Jun, 2014 [facility] [place] [facility] [address] [id number] [place] [address]- 8049 Jun, 2014 [facility] [place] [facility] [address] [id number] [place] [address]- 3854 Jun, 2014 [facility] [place] [facility] [address] [id number] [place] [address]- 7742 Jun, 2014 [facility] [place] [facility] [address] [facility] [address] [id number] [place] [address]- 8380 Mar, [facility] [place] [facility] [address] [id number] [place] [address]- 8588 Mar, [facility] [place] [facility] [address] [id number] [place] [address]- 2176 Mar, [facility] [place] [facility] [address] [id number] [place] [address]- 0810 Mar, [facility] [place] [facility] [address] [id number] [place] [address]- 8196 Mar, [facility] [place] [facility] [address] [id number] [place] 5258 Mar, [facility] [place] [facility] [address] [id number] [place] [address]- 5536 Mar, [facility] [place] [facility] [address] [id number] [place] [address]- 8111 Mar, [facility] [place] [facility] [address] [id number] [place] [address]- 4442 Mar, [facility] [place] [facility] [address] [id number] [place] [address]- 3925 Mar, [facility] [place] [facility] [address] [id number] [place] [address]- 1644 Jan, [facility] [place] [facility] [address] [id number] [place] 1624 Jan, [facility] [place] [facility] [address] [id number] [place] [address]- 8831 Jan, [facility] [place] [facility] [address] [id number] [place] [address]- 6802 Jan, [facility] [place] [facility] [address] [id number] [place] [address]- 1012 Jan, [facility] [place] [facility] [address] [id number] [place] [address]- 6406 Jan, [facility] [place] [facility] [address] [id number] [place] [address]- 1276 Jan, [facility] [place] [facility] [address] [id number] [place] [address]- 7581 Jan, [facility] [place] [facility] [address] [id number] [place] [address]- 0084 19 Dec, 2013 [facility] [place] [facility] [address] [id number] [place] [address]- 1386 19 Dec, 2013 [facility] [place] [facility] [address] [id number], [place] [address]- 6916 15 Dec, 2013 [facility] [place] [facility] [address] [id number] [place] [address]- 0388 15 Dec, 2013 [facility] [place] [facility] [address] [id number] [place] [address]- 9208 15 Dec, 2013 [facility] [place] [facility] [address] [id number] [place] [address] 15 Dec, 2013 [facility] [place] [facility] [address] [id number], [place] [address] Dec, [facility] [place] [facility] [address] [id number] [place] [address] Dec, [facility] [place] [facility] [address] [id number] [place] [address] Dec, [facility] [place] [facility] [address] [id number] [place] [address] Dec, [facility] [place] [facility] [address] [id number] [place] [address] Nov, [facility] [place] [facility] [address] [id number] [place] [address] Nov, [facility] [place] [facility] [address] [id number] [place] [address] Nov, [facility] [place] [facility] [address] [id number] [place] [address] Nov, [facility] [place] [facility] [address] [id number] [place] [address] Oct, [facility] [place] [facility] [address] [id number] [place] [address] Oct, [facility] [place] [facility] [address] [id number] [place] [address] Oct, [facility] [place] [facility] [address] [id number] [place] [address] Oct, [facility] [place] [facility] [address] [id number] [place] [address] Sep, [facility] [place] [facility] [address] [id number] [place] [address] Sep, [facility] [place] [facility] [address] [id number] [place] [address] Sep, [facility] [place] [facility] [address] [id number] [place] [address] Sep, [facility] [place] [facility] [address] [id number] [place] [address] 14 Sep, 2013 [facility] [place] [facility] [address] [id number] [place] [address] Sep, [facility] [place] [facility] [address] [id number] [place] [address] Sep, [facility] [place] [facility] [address] [id number] [place] [address] Sep, [facility] [place] [facility] [address] [id number] [place] [address] August, [facility] [place] [facility] [address] [id number] [place] [address] August, [facility] [place] [facility] [address] [id number] [place] [address] Jul, [facility] [place] [facility] [address] [id number] [place] [address] Jul, [facility] [place] [facility] [address] [id number] [place] [address] Jul, [facility] [place] [facility] [address] [id number] [place] [address] Jul, [facility] [place] [facility] [address] [id number] [place] [address] Jul, [facility] [place] [facility] [address] [id number] [place] [address] Jul, [facility] [place] [facility] [address] [id number] [place] [address] Jul, [facility] [place] [facility] [address] [id number] [place] [address] Jul, [facility] [place] [facility] [address] [id number] [place] [address] Jul, [facility] [place] [facility] [address] [id number] [place] [address] Jul, [facility] [place] [facility] [address] [id number] [place] [address] 27 Jun, 2013 [facility] [place] [facility] [address] [id number] [place] [address] 27 Jun, 2013 [facility] [place] [facility] [address] [id number] [place] [address] 68[address] 18 Jun, 2013 [facility] [place] [facility] [address] [id number] [place] [address]99 18 Jun, 2013 [facility] [place] [facility] [address] [id number] [place] [address] 4722 17 Jun, 2013 [facility] [place] [facility] [address] [id number] [place] [address]100 17 Jun, 2013 [facility] [place] [facility] [address] [id number] [place] [address] 6732 17 Jun, 2013 [facility] [place] [facility] [address] [id number] [place] [address] 1314 17 Jun, 2013 [facility] [place] [facility] [address] [id number] [place] [address]- [address]8 14 Jun, 2013 [facility] [place] [facility] [address] [id number] [place] [address]- 1372 14 Jun, 2013 [facility] [place] [facility] [address] [id number] [place] [address] Jun, [facility] [place] [facility] [address] [id number] [place] [address] 2964 Jun, [facility] [place] [facility] [address] [id number] [place] [address]- [address]88 Jun, [facility] [place] [facility] [address] [id number] [place] [address]37 Jun, [facility] [place] [facility] [address] [id number] [place] [address]- 8364 Jun, [facility] [place] [facility] [address] [id number] [place] [address]145 Jun, [facility] [address] [id number] [place] [address] May, [facility] [place] [facility] [address] [id number] [place] [address] May, [facility] [address] [id number] [place] [address] 2735 May, [facility] [place] [facility] [address] [id number] [place] [address] 5215 May, [facility] [address] [id number] [place] [address] Mar, [facility] [address] [id number] [place] [address] Mar, [facility] [address] [id number] [place] [address]- 9646 Mar, [facility] [address] [id number] [place] [address] 9861 Mar, [facility] [place] [facility] [address] [id number] [place] [address] Mar, [facility] [address] [id number] [place] [address] Mar, [facility] [place] [facility] [address] [id number] [place] [address] 4334 Mar, [facility] [place] [facility] [address] [id number] [place] [address] 4027 Mar, [facility] [place] [facility] [address] [id number] [place] [address] Jan, [facility] [place] [facility] [address] [id number] [place] [address] 3813 Jan, [facility] [place] [facility] [address] [id number] [place] [address] 9574 Jan, [facility] [place] [facility] [address] [id number] [place] [address] 1420 17 Jan, 2013 [facility] [place] [facility] [address] [id number] [place] [address] 7682 Jan, [facility] [place] [facility] [address] [id number] [place] [address] 2547 Jan, [facility] [place] [facility] [address] [id number] [place] [address]54 Jan, [facility] [address] [id number] [place] [address] 8184 Dec, [facility] [place] [facility] [address] [id number] [place] [address]794 Nov, [facility] [address] [id number] [place] [address] 8725 Oct, [facility] [address] [id number] [place] [address] 0641 Oct, [facility] [address] [id number] [place] [address]- 5524 Sep, [facility] [place] [facility] [address] [id number] [place] [address] 1282 Sep, [facility] [place] [facility] [address] [id number] [place] [address]- 7320 Sep, [facility] [place] [facility] [address] [id number], [place] [address] August, [facility] [place] [facility] [address] [id number] [place] [address] 2052 Jun, [facility] [place] [facility] [address] [id number] [place] [address] 1896 Jun, [facility] [place] [facility] [address] [id number], [place] [address]- [address]46 15 Jun, 2012 [facility] [place] [facility] [address] [id number], [place] [address] 3787 15 Jun, 2012 [facility] [address] [id number] [place] [address]- 5696 13 Jun, 2012 [facility] [address] [id number] [place] [address]- 4086 12 Jun, 2012 [facility] [address] [id number] [place] [address]- 3006 07 Jun, 2012 [facility] [address] [id number] [place] [address]- 4973 May, [facility] [address] [id number] [place] [address]- 0684 May, [facility] [address] [id number] [place] [address]- 4465 14 May, 2012 [facility] [address] [id number] [place] [address]- 1808 May, [facility] [address] [id number] [place] [address] 7036 May, [facility] [address] [id number] [place] [address]- 6279 May, [facility] [address] [id number] [place] [address]- 3483 May, [facility] [address] [id number] [place] [address]- 0574 Mar, [facility] [address] [id number] [place] [address]- 0909 Mar, [facility] [address] [id number] [place] [address]- 7552 Mar, [facility] [address] [id number] [place] [address]- 9821 Mar, [facility] [address] [id number] [place] [address]- 9537 05 Mar, 2012 [facility] [place] [facility] [address] [id number] [place] [address]- 7678 Mar, [facility] [place] [facility] [address] [id number] [place] [address]- 2476 Mar, [facility] [place] [facility] [address] [id number] [place] [address]- 2207 Mar, [facility] [place] [facility] [address] [id number] [place] [address]- 9203 Mar, [facility] [place] [facility] [address] [id number] [place] [address]- 7982 Mar, [facility] [place] [facility] [address] [id number] [place] [address]- 5923 Mar, [facility] [place] [facility] [address] [id number] [place] [address]- 8518 Mar, [facility] [place] [facility] [address] [id number] [place] [address]- 9856 Mar, [facility] [place] [facility] [address] [id number] [place] [address]- 3871 Mar, [facility] [place] [facility] [address] [id number] [place] [address]- 2378 Mar, [facility] [place] [facility] [address] [id number] [place] [address]- 3568 Mar, [facility] [place] [facility] [address] [id number] [place] [address]- 8576 Mar, [facility] [place] [facility] [address] [id number] [place] [address]- 4139 Mar, [facility] [place] [facility] [address] [id number] [place] [address]- 8126 Mar, [facility] [place] [facility] [address] [id number] [place] [address]- 9693 Jan, [facility] [place] [facility] [address] [id number], [place] [address]- 9286 Jan, [facility] [address] [id number] [address] Jan, [facility] [id number], [place] [address]- [address]187 Jan, [facility] [id number], [place] [address]- 0700 Dec, [facility] [id number] [address] Dec, [facility] [id number] [address] Dec, [facility] [id number] [place] [address]- [address]270 Nov, [facility] [id number] [place] [address]- 6333 Nov, [facility] [id number] [place] [address]- 6732 Oct, [facility] [id number], [place] [address]- 3365 Oct, [facility] [id number], [place] [address]- 3563 Oct, [facility] [id number], [place] [address]- 1180 Oct, [facility] [id number], [place] [address]- 7476 Oct, [facility] [address] [id number], [place] [address]- 9796 Oct, IMMUNIZATIONS No Known Immunizations SOCIAL HISTORY Never Assessed REASON FOR VISIT Requests return call PLAN OF CARE VITAL SIGNS MEDICATIONS Unknown Medications RESULTS No Results PROCEDURES No Known procedures INSTRUCTIONS MEDICATIONS ADMINISTERED No Known Medications MEDICAL (GENERAL) HISTORY Type Description Date Medical History bipolar disorder Medical History depression Medical History GERD Medical History hx of meth use 1998 Medical History DX sleep apnea 06/2016 Medical History History of methylenedioxymethamphetamine (MDMA) use Medical History Osteoarthritis- Knees Medical History Neuropathy Medical History COPD suggestive by initial evaluation Surgical History right knee arthroscopy x2 2005, 2007 Hospitalization History surgery Hospitalization History hospitalized psychiatrically x4, last incident prior to 2007
--- OUTSIDE RECORDS SUMMARY | 2018-05-15 06:08 | XMS REPORT ---
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 Active 838878609 Problem Schizoaffective disorder, bipolar type F25.0 Active 92470124 Problem Mixed hyperlipidemia E78.2 Active 283673516 Problem COPD suggested by initial evaluation J44.9 Active 33647367 Problem Primary osteoarthritis of left knee M17.12 Active 838384751 Problem Post-menopausal bleeding N95.0 Active 08711166 Problem Body mass index (BMI) of 45.0-49.9 in adult Z68.42 Active 317141561 Problem Morbid (severe) obesity due to excess calories E66.01 Active 060539915 Problem Obstructive sleep apnea G47.33 Active 42230184 Problem Depression F32.9 Active 05608182 Problem Edema R60.9 Active 469423958 Problem Obesity E66.9 Active 818256154 Problem GERD (gastroesophageal reflux disease) K21.9 Active 799776336 Problem Environmental allergies Z91.09 Active 259223473 Problem Bipolar 1 disorder F31.9 Active 230555462 Problem Major depressive disorder, single episode, unspecified F32.9 Active 64244295 ALLERGIES No Information ENCOUNTERS Encounter Location Date Diagnosis [facility], [place] [id number], [place] [address] May, [facility], [place] [address], [place] [address] Mar, [facility], [place] [id number], [place] [address] 5379 Mar, [facility], [place] [id number] [place] [address] 66370- 1801 18 Jan, 2018 Schizoaffective disorder, bipolar type F25.0 and 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 [facility] [id number] [place] [address] 20288- 6294 18 Jan, 2018 Prediabetes R73.03 and Mixed hyperlipidemia E78.2 [facility] [address] 09462- 2733 17 Jan, 2018 Obstructive sleep apnea G47.33 ; Primary osteoarthritis of left knee M17.12 ; Prediabetes R73.03 ; Mixed hyperlipidemia E78.2 ; COPD suggested by initial evaluation J44.9 and BMI 45.0-49.9, adult Z68.42 [facility] [id number] [place] [address] 07182- 6839 11 Jan, 2018 Encounter for immunization Z23 [place] [address] 40306- 4652 Jan, [place] [address] 93993- 4278 Dec, [place] [address] 48315- 1851 Nov, Obstructive sleep apnea G47.33 and COPD suggested by initial evaluation J44.9 [facility] [id number] [place] [address] 94895- 0117 Nov, COPD (chronic obstructive pulmonary disease) J44.9 [facility] [id number] [place] [address] 24374- 2919 Nov, [facility] [address] 42237- 3501 Oct, [facility], [place] [id number] [place] [address] 00966- 9381 Oct, [facility] [address] 95437- 7731 Oct, Other halfway (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 Z79.899 [facility], [place] [id number] [place] [address] 06731- 5111 Oct, Schizoaffective disorder, bipolar type F25.0 ; 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 and Other halfway (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 Z79.899 [facility], [place] [id number] [place] [address] 71045- 7018 Oct, Prediabetes R73.03 ; COPD suggested by initial evaluation J44.9 ; BMI 45.0-49.9, adult Z68.42 and Obstructive sleep apnea G47.33 [facility] [address] 45002- 0449 Sep, [facility] [address] 56932- 3616 August, Neuropathy G62.9 [facility] [address] 70646- 6314 August, [place] [address] 49441- 6014 August, [facility] [address] 53561- 9770 Jul, [facility] [address] 15693- 2636 Jul, Primary osteoarthritis of left knee M17.12 [facility], [place] [address] 64389- 6460 Jul, Schizoaffective disorder, bipolar type F25.0 and 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 [facility], [place] [address] 51716- 7560 Jul, Prediabetes R73.03 ; Primary osteoarthritis of left knee M17.12 ; GERD (gastroesophageal reflux disease) K21.9 ; Bipolar 1 disorder F31.9 ; Depression F32.9 ; Environmental allergies Z91.09 ; Neuropathy G62.9 ; Edema R60.9 ; Body mass index (BMI) of 45.0-49.9 in adult Z68.42 and Morbid ( severe) obesity due to excess calories E66.01 [place] [address] 97037- 9317 Jul, [place] [address] 78546- 7177 Jun, [place] [address] 35910- 1884 Jun, [address] 91271- 3758 Jun, Wound of right breast, initial encounter S21.001A and Prediabetes R73.[address] 61731- 5726 Jun, [address] 25957- 2470 May, GERD (gastroesophageal reflux disease) K21.[address] 15081- 1987 May, Primary osteoarthritis of left knee M17.[address] 84937- 1791 May, Schizoaffective disorder, bipolar type F25.0 and 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 62018- 7941 May, Left medial knee pain M25.562 ; GERD (gastroesophageal reflux disease) K21.9 ; Depression F32.9 ; Neuropathy G62.9 ; Obesity E66.9 ; Prediabetes R73.03 and Edema R60.[address] 14926- 2000 Mar, [address] 09541- 8154 Mar, [facility], [place] [address], [place] [address]- 1466 Mar, Post-menopausal bleeding N95.0 and BMI 50.0-59.9, adult Z68.43 [facility], [place] [address], [place] [address]- 2193 Mar, [facility], [place] [id number] [place] [address] 98007- 3704 Mar, Schizoaffective disorder, bipolar type F25.0 and 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 [facility], [place] [id number] [place] [address] 83743- 7888 Mar, [facility], [place] [id number] [place] [address] 96844- 5964 Mar, [facility], [place] [id number] [place] [address] 04527- 1123 Mar, Post-menopausal bleeding N95.0 ; Screening breast examination Z12.31 ; Screen for STD (sexually transmitted disease) Z11.3 ; Obesity E66.9 ; Family history of ovarian cancer Z80.41 and Family history of cervical cancer Z80.49 [facility], [place] [address], [place] [address]- 7859 Mar, [facility], [place] [address], [place] [address]- 2076 Mar, [facility], [place] [id number] [place] [address] 54051- 6048 Jan, Schizoaffective disorder, bipolar type F25.0 and 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 [facility], [place] [address], [place] [address]- 0258 Jan, Schizoaffective disorder, bipolar type F25.0 [facility], [place] [address], [place] [address]- 3447 Jan, [facility], [place] [address], [place] [address]- 1225 10 Jan, 2017 Prediabetes R73.03 and Obesity E66.9 [facility], [place] [id number] [place] [address] 17570- 2202 05 Jan, 2017 Encounter for immunization Z23 [facility], [place] [id number] [place] [address] 21095- 9648 Jan, [facility], [place] [id number] [place] [address] 04319- 3747 Dec, [facility], [place] [id number] [place] [address] 51279- 9448 Dec, [facility], [place] [id number] [place] [address] 79776- 6729 Nov, Neuropathy G62.9 [facility], [place] [id number] [place] [address] 75299- 7714 Nov, [facility], [place] [id number] [place] [address] 59589- 6977 Nov, Schizoaffective disorder, bipolar type F25.0 [facility], [place] [id number] [place] [address] 49927- 4237 Nov, 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 and Schizoaffective disorder, bipolar type F25.0 [facility], [place] [address] [place] [address] 39375- 1336 Oct, Schizoaffective disorder, bipolar type F25.0 ; Other halfway (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 Z79.899 and 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 [facility] [address] [place] [address] [id number] Oct, Dental caries K02.9 [facility], [place] [address] [place] [address] 82426- 3154 Sep, Neuropathy G62.9 [facility], [place] [id number] [place] [address] 61610- 4852 Sep, [facility], [place] [address] [place] [address] 50107- 3124 Sep, Neuropathy G62.9 [facility], [place] [id number] [place] [address] 29569- 3020 Jul, Schizoaffective disorder, depressive type F25.1 [facility] [place] [address] 18801- 3755 Jul, GERD (gastroesophageal reflux disease) K21.9 ; Joint pain of lower extremity M25.50 ; Environmental allergies Z91.09 ; Stress incontinence of urine N39.3 ; Neuropathy G62.9 ; Edema R60.9 and Acute pain of left knee M25.562 [facility] [facility] [id number] [place] [address] 80257- 6104 Jun, [facility] [address] [id number] Jun, Dental examination Z01.20 [place] [id number] [place] [address] 37088- 2934 Jun, [place] [id number] [place] [address] 46903- 6679 May, [place] [place] [id number] [place] [address] 82913- 9876 May, Bipolar 1 disorder F31.9 ; Joint pain of lower extremity M25.50 ; Environmental allergies Z91.09 ; Stress incontinence of urine N39.3 ; Major depressive disorder, single episode, unspecified F32.9 ; Dizzy R42 ; Schizoaffective disorder, unspecified F25.9 ; Neuropathy G62.9 ; Localized edema R60.0 and GERD (gastroesophageal reflux disease) K21.9 [facility], [place] [address] [place] [address] 14714- 0784 May, Schizoaffective disorder, depressive type F25.1 [place] [address] [place] [address]- 6923 May, Environmental allergies Z91.09 and Major depressive disorder , single episode, unspecified F32.9 [facility] [id number] [place] [address] 24496- 3858 Mar, Dental caries K02.9 [facility], [place] [id number] [place] [address] 59620- 9598 Mar, Dental caries on smooth surface penetrating into pulp K02.63 [facility] [id number] [place] [address] 90410 -8748 Mar, Peripheral edema R60.9 and Dry skin L85.3 [place] [address] 84384- 9874 Mar, [place] [address] 33654- 4765 Mar, Major depressive disorder, single episode, unspecified F32.9 [facility] [id number] [place] [address] 51060- 5603 Mar, Dental caries K02.9 [facility] [id number] [place] [address] 14285- 4200 07 Mar, 2016 Diabetes mellitus with complication E11.8 ; Urinary frequency R35.0 ; Stress incontinence of urine N39.3 ; Joint pain of lower extremity M25.50 ; Obesity E66.9 ; Environmental allergies Z91.09 ; Depression F32.9 ; Schizoaffective disorder, unspecified F25.9 ; Vaginal discharge N89.8 and Vaginal candidiasis B37.3 [place] [id number] [place] [address] 78285- 7588 Jan, Schizoaffective disorder, unspecified F25.9 [facility] [id number] [place] [address] 81524- 0575 Jan, [facility] [id number] [place] [address] 96816- 4898 30 Dec, 2015 [place] [id number] [place] [address] 94878- 2013 19 Dec, 2015 Dental caries K02.9 [facility] [address] 80872- 3934 14 Dec, 2015 Obesity E66.9 ; Edema R60.9 ; Depression F32.9 ; Bipolar 1 disorder F31.9 ; 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 ; Environmental allergies Z91.09 ; Shortness of breath R06.02 ; Gastroesophageal reflux disease with esophagitis K21.0 ; Other chronic pain G89.29 ; Pain in right knee M25.561 ; Pain in left knee M25.562 and Encounter for immunization Z23 [place] [address] 40537- 5150 Nov, Dental caries K02.9 [facility] [place] [address] 64687- 9527 Oct, Schizoaffective disorder, unspecified F25.9 [place] [address] 83106- 5951 Oct, Dental examination Z01.20 [facility] [address] 05474- 4766 Sep, Dental examination Z01.20 and Dental caries K02.9 [facility] [address] 77439- 9055 13 Sep, 2015 [place] [address] 67946- 8817 09 Sep, 2015 [place] [address] 60721- 9573 07 Sep, 2015 [place] [address] 69315- 2435 07 Sep, 2015 Schizoaffective disorder, unspecified F25.9 [facility] [address] 36445- 2320 August, Bipolar disorder, unspecified F31.9 [place] [address] 80172- 2778 Jul, Edema R60.9 and Obesity E66.9 [facility], [place] [address] 21732- 2252 Jul, Edema R60.9 [place] [address] 67003- 8376 Jul, Edema R60.9 [facility] [address] 48517 -5853 Jul, Edema R60.9 [place] [address] 82962- 4509 Jul, [place] [address] 01458- 7276 Jul, [place] [address] 49357- 7988 Jun, Environmental allergies V15.09 and Cough R05 [place] [address] 32187- 3442 17 Jun, 2015 Environmental allergies V15.09 ; Edema R60.9 and Cough R05 [facility] [address] 07784 -4339 Jun, Bronchospasm J98.01 [place] [address] 05027- 3029 Jun, [place] [address] 39634- 2160 Jun, [place] [address] 03770- 5210 08 Jun, 2015 Environmental allergies V15.09 ; Bipolar 1 disorder F31.9 ; GERD (gastroesophageal reflux disease) K21.9 ; Depression F32.9 ; Joint pain of lower extremity M25.50 ; COPD (chronic obstructive pulmonary disease) J44.9 and Screening for diabetes mellitus Z13.1 [facility] [id number] [place] [address] 58336- 0656 16 Jun, 2015 [place] [address] 21736- 4713 May, [place] [address] 40231- 5613 May, Schizoaffective disorder, unspecified F25.9 and Bipolar 1 disorder F31.9 [facility] [address] 14082- 7806 May, [place] [address] 39755- 1716 12 May, 2015 URI (upper respiratory infection) J06.9 ; Environmental allergies V15.09 and Cough R05 [place] [address] 12672- 2492 18 Mar, 2015 [place] [address] 00152- 8233 15 Mar, 2015 Vaginal discharge N89.8 [place] [address] 84305- 3402 14 Mar, 2015 Schizoaffective disorder, unspecified F25.9 ; Major depressive disorder, single episode, unspecified F32.9 and Bipolar 1 disorder F31.9 [place] [id number] [place] [address] 61387- 9432 Mar, [facility] [id number] [place] [address] 80018- 1708 Mar, Bipolar 1 disorder F31.9 [place] [place] [address] 77505- 1605 Jan, [place] [address] 62100- 1307 Jan, Allergic rhinitis J30.9 and Cough R05 [place] [id number] [place] [address] 60987- 7038 Jan, 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 ; Bipolar 1 disorder F31.9 ; GERD ( gastroesophageal reflux disease) K21.9 ; Depression F32.9 and Joint pain of lower extremity M25.50 [place] [address] 92271- 8028 Dec, Encounter for immunization Z23 [place] [address] 24890- 0343 Dec, Schizoaffective disorder, unspecified 295.70 ; Pain in joint , lower leg 719.46 ; Esophageal reflux 530.81 ; Bipolar 1 disorder 296.7 ; Depression 311 ; GERD (gastroesophageal reflux disease) 530.81 and Environmental allergies V15.09 [facility] [address] [id number] Nov, Dental examination V72.2 [place] [address] 69666- 8216 Nov, Acute bronchitis 466.0 [place] [address] 70267- 3407 Nov, Schizoaffective disorder, unspecified 295.70 and Bipolar disorder, unspecified 296.80 [facility] [id number] [place] [address] [id number] Sep, Dental examination V72.2 [facility] [id number] [place] [address] [id number] August, Dental examination V72.2 [facility] [place] [address] 69269- 1210 August, Schizoaffective disorder, unspecified 295.70 [place] [address] 52303- 5538 August, [facility] [place] [address] 83821- 6170 August, Vomiting 787.03 [facility], [place] [address] [place] [address] 02931- 0913 August, Vomiting and diarrhea 787.03 and High risk medication use V58.69 [facility], [place] [id number], [place] [address]- 7885 30 Jul, 2014 [facility] [place] [id number] [place] [address] 37641- 5018 14 Jul, 2014 [facility] [place] [id number] [place] [address] 45266- 6744 Jul, [facility], [place] [id number] [place] [address] 44075- 9196 Jun, [facility] [place] [id number] [place] [address] 01053- 7577 Jun, [facility] [place] [id number] [place] [address] 99167- 8112 Jun, [facility], [place] [id number] [place] [address] 71949- 5446 Jun, [facility] [place] [id number] [place] [address] 58989- 0949 16 Jun, 2014 [facility], [place] [address], [place] [address]- 6398 Jun, [facility], [place] [id number] [place] [address] 14004- 1430 Jun, [facility], [place] [address], [place] [address]- 9565 Jun, [facility] [place] [id number] [place] [address] 33094- 5046 Jun, [facility], [place] [address], [place] [address]- 0791 Mar, [facility], [place] [id number] [place] [address] 87386- 4390 Mar, [facility] [place] [facility] [address] [id number] [place] [address]- 7766 Mar, [facility] [place] [facility] [address] [id number] [place] [address]- 4598 Mar, [facility] [place] [facility] [address] [facility] [id number] [place] [address]- 1532 Mar, [facility] [place] [facility] [address] [id number] [place] [address]- 4561 Mar, [facility] [place] [facility] [address] [facility] [id number] [place] [address]- 8471 Mar, [facility] [place] [facility] [address] [facility] [id number] [place] [address]- 6353 Mar, [facility] [place] [facility] [address] [facility] [id number], [place] [address]- 5503 Mar, [facility] [place] [facility] [address] [facility] [id number] [place] [address]- 3822 Mar, [facility] [place] [facility] [address] [facility] [id number] [place] [address]- 6115 Jan, [facility] [place] [facility] [address] [facility] [id number] [place] [address]- 9258 31 Jan, 2014 [facility] [place] [facility] [address] [facility] [id number], [place] [address]- 5190 31 Jan, 2014 [facility] [place] [facility] [address] [facility] [id number], [place] [address]- 0145 31 Jan, 2014 [facility] [place] [facility] [address] [id number], [place] [address]- 0730 14 Jan, 2014 [facility] [place] [facility] [address] [facility] [id number], [place] [address]- 7524 14 Jan, 2014 [facility] [place] [facility] [address] [facility] [id number], [place] [address] 09 Jan, 2014 [facility] [place] [facility] [address] [id number] [place] [address] 09 Jan, 2014 [facility] [place] [facility] [address] [id number] [place] [address] 19 Dec, 2013 [facility] [place] [facility] [address] [id number] [place] [address] 19 Dec, 2013 [facility] [place] [facility] [address] [id number] [place] [address] 15 Dec, 2013 [facility] [place] [facility] [address] [id number] [place] [address]45 15 Dec, 2013 [facility] [place] [facility] [address] [id number] [place] [address] 15 Dec, 2013 [facility] [place] [facility] [address] [id number] [place] [address] 15 Dec, 2013 [facility] [place] [facility] [address] [id number] [place] [address] 12 Dec, 2013 [facility] [place] [facility] [address] [id number] [place] [address] 12 Dec, 2013 [facility] [place] [facility] [address] [id number] [place] [address] 03 Dec, 2013 [facility] [place] [facility] [address] [id number] [place] [address] Dec, [facility] [place] [facility] [address] [id number] [place] [address] Nov, [facility] [place] [facility] [address] [id number] [place] [address] Nov, [facility] [place] [facility] [address] [id number] [place] [address] Nov, [facility] [place] [facility] [address] [id number] [place] [address]- [address] Nov, [facility] [place] [facility] [address] [id number] [place] [address] Oct, [facility] [place] [facility] [address] [id number] [place] [address] Oct, [facility] [place] [facility] [address] [id number] [place] [address] Oct, [facility] [place] [facility] [address] [id number] [place] [address] Oct, [facility] [place] [facility] [address] [id number] [place] [address] Sep, [facility] [place] [facility] [address] [id number] [place] [address] Sep, [facility] [place] [facility] [address] [id number] [place] [address] Sep, [facility] [place] [facility] [address] [id number] [place] [address] Sep, [facility] [place] [facility] [address] [id number] [place] [address] Sep, [facility] [place] [facility] [address] [id number] [place] [address] Sep, [facility] [place] [facility] [address] [id number] [place] [address] Sep, [facility] [place] [facility] [address] [id number] [place] [address] Sep, [facility] [facility] [address] [id number], [place] [address] August, [facility] [place] [facility] [address] [id number] [place] [address] August, [facility] [place] [facility] [address] [id number] [place] [address] Jul, [facility] [place] [facility] [address] [id number] [place] [address] Jul, [facility] [place] [facility] [address] [id number] [place] [address] Jul, [facility] [place] [facility] [address] [id number] [place] [address] Jul, [facility] [place] [facility] [address] [id number] [place] [address] Jul, [facility] [place] [facility] [address] [id number] [place] [address] Jul, [facility] [place] [facility] [address] [id number] [place] [address] Jul, [facility] [place] [facility] [address] [id number] [place] [address] Jul, [facility] [place] [facility] [address] [id number] [place] [address] Jul, [facility] [place] [facility] [address] [id number] [place] [address] Jul, [facility] [place] [facility] [address] [id number] [place] [address] Jun, [facility] [place] [facility] [address] [id number] [place] [address] 27 Jun, 2013 [facility] [place] [facility] [address] [id number] [place] [address]- [address] 18 Jun, 2013 [facility] [place] [facility] [address] [id number] [place] [address]- [address] 18 Jun, 2013 [facility] [place] [facility] [address] [id number] [place] [address]- [address] 17 Jun, 2013 [facility] [place] [facility] [address] [id number] [place] [address]- [address]70 17 Jun, 2013 [facility] [place] [facility] [address] [id number] [place] [address]- 7936 17 Jun, 2013 [facility] [place] [facility] [address] [id number] [place] [address] 17 Jun, 2013 [facility] [place] [facility] [address] [id number] [place] [address]- 66[address] 14 Jun, 2013 [facility] [place] [facility] [address] [id number] [place] [address] 14 Jun, 2013 [facility] [place] [facility] [address] [id number] [place] [address]- [address] Jun, [facility] [place] [facility] [address] [id number] [place] [address] Jun, [facility] [place] [facility] [address] [id number] [place] [address]- [address]163 Jun, [facility] [place] [facility] [address] [id number] [place] [address]- 132[address] Jun, [facility] [place] [facility] [address] [id number] [place] [address]- [address] Jun, [facility] [place] [facility] [address] [id number] [place] [address]- 3698 Jun, [facility] [place] [facility] [address] [id number] [place] [address] May, [facility] [place] [facility] [address] [id number] [place] [address] 39[address] May, [facility] [place] [facility] [address] [id number] [place] [address]- [address]83 May, [facility] [place] [facility] [address] [id number] [place] [address] 98[address] May, [facility] [place] [facility] [address] [id number] [place] [address] Mar, [facility] [place] [facility] [address] [id number] [place] [address]- [address] Mar, [facility] [place] [facility] [address] [id number] [place] [address] Mar, [facility] [place] [address] [id number], [place] [address] Mar, [facility] [address] [id number] [place] [address]- 4[address] Mar, [facility] [place] [address] [id number], [place] [address] Mar, [facility] [place] [address] [id number] [place] [address]- 7473 Mar, [facility] [place] [facility] [address] [id number] [place] [address]- 1873 Mar, [facility] [place] [facility] [address] [id number] [place] [address] Jan, [facility] [place] [facility] [address] [id number] [place] [address]- 18[address] Jan, [facility] [address] [id number], [place] [address] Jan, [facility] [address] [id number] [place] [address]- [address] Jan, [facility] [address] [facility] [id number] [place] [address]- [address]65 Jan, [facility] [address] [facility] [id number], [place] [address] Jan, [facility] [address] [id number], [place] [address] Jan, [facility] [address] [id number], [place] [address] Dec, [facility] [address] [id number], [place] [address] Nov, [facility] [address] [id number], [place] [address] 2542 Oct, [facility] [address] [facility] [id number], [place] [address]- [address]48 Oct, [facility] [address] [id number] [place] [address]- [address] 27 Sep, 2012 [facility] [facility] [address] [id number] [place] [address]- 9127 26 Sep, 2012 [facility] [place] [facility] [address] [id number] [place] [address]- [address]396 Sep, [facility] [place] [facility] [address] [id number] [place] [address]- 2419 August, [facility] [place] [facility] [address] [id number] [place] [address] Jun, [facility] [place] [facility] [address] [id number] [place] [address]- [address]44 20 Jun, 2012 [facility] [place] [facility] [address] [id number] [place] [address]- [address] 15 Jun, 2012 [facility] [place] [facility] [address] [id number] [place] [address]- 1159 15 Jun, 2012 [facility] [place] [facility] [address] [id number] [place] [address]- 0068 Jun, [facility] [place] [address] [id number] [place] [address]- 2758 12 Jun, 2012 [facility] [place] [facility] [address] [id number] [place] [address]- 0453 Jun, [facility] [address] [id number] [place] [address]- 7[address] May, [facility] [address] [id number] [place] [address]- 2557 May, [facility] [place] [facility] [address] [id number] [place] [address]- 8957 14 May, 2012 [facility] [address] [id number] [place] [address]- 7944 May, [facility] [address] [id number], [place] [address] May, [facility] [address] [id number] [place] [address]- 9844 May, [facility] [facility] [address] [id number] [place] [address] May, [facility] [address] [id number] [place] [address]- 8067 Mar, [facility] [facility] [address] [id number] [place] [address]- 6704 Mar, [facility] [place] [facility] [address] [id number] [place] [address]- 9953 Mar, [facility] [address] [id number] [place] [address]- 3966 Mar, [facility] [address] [id number] [place] [address]- 1523 Mar, [facility] [facility] [address] [id number] [place] [address]- 3788 Mar, [facility] [address] [id number] [place] [address]- 0566 Mar, [facility] [place] [facility] [address] [id number] [place] [address]- 6765 Mar, [facility] [place] [facility] [address] [id number] [place] [address]- 6518 Mar, [facility] [facility] [address] [id number] [place] [address]- 3322 Mar, [facility] [facility] [address] [id number] [place] [address]- 0605 Mar, [facility] [facility] [address] [id number] [place] [address]- 6301 Mar, [facility] [address] [id number] [place] [address]- 6733 Mar, [facility] [place] [address] [id number] [place] [address]- 7556 Mar, [facility] [place] [facility] [address] [id number] [place] [address]- 8883 Mar, [facility] [place] [address] [id number] [place] [address]- 6590 Mar, [facility] [place] [facility] [address] [id number] [place] [address]- 5601 Mar, [facility] [address] [id number] [place] [address]- 8399 Mar, [facility] [address] [id number] [place] [address]- 3117 Mar, [facility] [address] [id number] [place] [address]- 4957 Jan, [facility] [address] [id number] [place] [address]- 9053 Jan, [facility] [address] [id number] [place] [address]- 1151 Jan, [facility] [address] [id number] [place] [address]- 2112 Jan, [facility] [address] [facility] [id number] [place] [address]- 5536 Dec, [facility] [address] [id number] [place] [address]- 7478 18 Dec, 2011 [facility] [address] [id number] [place] [address]- 9873 Dec, [facility] [place] [facility] [address] [id number] [place] [address]- 6439 Nov, [facility] [place] [facility] [address] [id number] [place] [address]- 2546 Nov, [facility] [place] [facility] [address] [id number] [place] [id number] Oct, [facility] [place] [address] [facility] [id number], [place] [address]- [address]64 Oct, [facility] [place] [address] [id number], [place] [address] Oct, [facility] [place] [address] [facility] [id number], [place] [address]- 8066 Oct, [facility] [place] [address] [id number], [place] [address]- 99[address] Oct, [facility] [place] [address] [facility] [id number], [place] [address]- [address] Oct, IMMUNIZATIONS No Known Immunizations SOCIAL HISTORY [...]
--- OUTSIDE RECORDS SUMMARY | 2018-05-15 06:09 | XMS REPORT ---
Author Author RAY NEVAREZ [facility] Address [address] [place] [address] Care Team Providers Care Extermination Supervisor Name Role Phone RAY NEVAREZ Unavailable PROBLEMS Type Condition ICD9-CM Code [id number] Code Onset Dates Condition Status SNOMED Code Problem Major depressive disorder, single episode, unspecified F32.9 Active 69695534 Problem Schizoaffective disorder, bipolar type F25.0 Active 99868287 Problem Neuropathy G62.9 Active 238893905 Problem COPD suggested by initial evaluation J44.9 Active 74218834 Problem Body mass index (BMI) of 45.0-49.9 in adult Z68.42 Active 456431597 Problem Post-menopausal bleeding N95.0 Active 67297070 Problem 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 Active 434197944 Problem Morbid (severe) obesity due to excess calories E66.01 Active 177733914 Problem Primary osteoarthritis of left knee M17.12 Active 625721073 Problem Obstructive sleep apnea G47.33 Active 72468340 Problem Bipolar 1 disorder F31.9 Active 402344968 Problem Edema R60.9 Active 888457797 Problem Depression F32.9 Active 66309616 Problem Obesity E66.9 Active 022003518 Problem GERD (gastroesophageal reflux disease) K21.9 Active 470598588 Problem Environmental allergies Z91.09 Active 178009291 ALLERGIES No Information ENCOUNTERS Encounter Location Date Diagnosis [facility] [address] [id number] [address] Jan, [facility] [id number] [place] [address] 86465- 0065 Dec, [facility] [address] [address] Nov, Obstructive sleep apnea G47.33 and COPD suggested by initial evaluation J44.9 [facility] [address] [address] Nov, COPD (chronic obstructive pulmonary disease) J44.9 [facility] [id number] [address] Nov, [facility] [id number] [address] 2654 Oct, [facility] [id number] [place] [address] 30962- 7911 Oct, [facility] [id number] [place] [address] 08440- 4966 Oct, 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 (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 Z79.899 [facility] [id number] [place] [address] 62081- 0979 Oct, Schizoaffective disorder, bipolar type F25.0 ; 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 and Other nursing home (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 Z79.899 [facility] [id number] [address] Oct, Prediabetes R73.03 ; COPD suggested by initial evaluation J44.9 ; BMI 45.0-49.9, adult Z68.42 and Obstructive sleep apnea G47.33 [facility] [address] [address] Sep, [facility] [id number] [address] August, Neuropathy G62.9 [facility] [address] [address] 7914 August, [facility] [id number] [address] 8[address] August, [facility] [address] [address] 9[address] Jul, [facility] [id number] [place] [address] 75686- 2846 Jul, Primary osteoarthritis of left knee M17.12 [place] [address] 04726- 4505 Jul, Schizoaffective disorder, bipolar type F25.0 and 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 [place] [address] [address]- 6879 Jul, Prediabetes R73.03 ; Primary osteoarthritis of left knee M17.12 ; GERD (gastroesophageal reflux disease) K21.9 ; Bipolar 1 disorder F31.9 ; Depression F32.9 ; Environmental allergies Z91.09 ; Neuropathy G62.9 ; Edema R60.9 ; Body mass index (BMI) of 45.0-49.9 in adult Z68.42 and Morbid ( severe) obesity due to excess calories E66.01 [place] [address] 24160- 7997 Jul, [place] [address] 75834- 6164 Jun, [place] [address] 24716- 5060 Jun, [facility] [id number] [place] [address] 93188- 0621 Jun, Wound of right breast, initial encounter S21.001A and Prediabetes R73.03 [facility] [id number] [place] [address] 57088- 5920 Jun, [facility] [id number] [place] [address] 71463- 6440 May, GERD (gastroesophageal reflux disease) K21.9 [facility] [id number] [place] [address] 30956- 4553 May, Primary osteoarthritis of left knee M17.12 [facility] [id number] [place] [address] 56333- 0438 May, Schizoaffective disorder, bipolar type F25.0 and 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 [facility] [id number] [place] [address] 76937- 6437 May, Left medial knee pain M25.562 ; GERD (gastroesophageal reflux disease) K21.9 ; Depression F32.9 ; Neuropathy G62.9 ; Obesity E66.9 ; Prediabetes R73.03 and Edema R60.9 [facility] [id number] [place] [address] 50152- 1714 14 Mar, 2017 [place] [address] 29937- 0788 Mar, [facility] [address] 46454- 5739 05 Mar, 2017 Post-menopausal bleeding N95.0 and BMI 50.0-59.9, adult Z68.43 [place] [address] 16077- 3735 Mar, [facility] [id number] [place] [address] 45247- 6695 Mar, Schizoaffective disorder, bipolar type F25.0 and 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 [facility] [id number] [place] [address] 66925- 3461 27 Mar, 2017 [facility] [id number] [place] [address] 25276- 6380 16 Mar, 2017 [facility] [id number] [place] [address] 75872- 5391 10 Mar, 2017 Post-menopausal bleeding N95.0 ; Screening breast examination Z12.31 ; Screen for STD (sexually transmitted disease) Z11.3 ; Obesity E66.9 ; Family history of ovarian cancer Z80.41 and Family history of cervical cancer Z80.49 [facility] [id number] [place] [address] 56025- 3304 03 Mar, 2017 [facility] [id number] [address]- 0105 Mar, [facility] [id number] [place] [address] 00552- 1765 Jan, Schizoaffective disorder, bipolar type F25.0 and 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 [facility] [id number] [place] [address] 39029- 2271 Jan, Schizoaffective disorder, bipolar type F25.0 [facility] [id number] [place] [address] 89356- 8630 Jan, [facility] [id number] [place] [address] 15105- 7413 Jan, Prediabetes R73.03 and Obesity E66.9 [facility] [id number] [place] [address] 57514- 2400 Jan, Encounter for immunization Z23 [facility] [id number] [place] [address] 84798- 8086 Jan, [facility] [id number] [place] [address] 41570- 1620 Dec, [facility] [id number] [place] [address] 11588- 3692 Dec, [facility] [id number] [place] [address] 89603- 9711 Nov, Neuropathy G62.9 [facility] [id number] [address]- 9734 Nov, [facility] [id number] [place] [address] 79801- 1891 Nov, Schizoaffective disorder, bipolar type F25.0 [facility] [address] [address]- 2927 Nov, Other nursing home (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 Z79.899 and Schizoaffective disorder, bipolar type F25.0 [facility] [id number] [place] [address] 63793- 8705 Oct, Schizoaffective disorder, bipolar type F25.0 ; 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 (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 Z79.899 and 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 [facility] [id number] [place] [address] [id number] Oct, Dental caries K02.9 [facility] [id number] [place] [address] 20873- 5109 Sep, Neuropathy G62.9 [facility] [id number] [place] [address] 97529- 1927 Sep, [facility] [id number] [place] [address] 65624- 7045 Sep, Neuropathy G62.9 [facility] [id number] [place] [address] 32336- 2568 Jul, Schizoaffective disorder, depressive type F25.1 [facility] [id number] [place] [address] 71267- 2027 Jul, GERD (gastroesophageal reflux disease) K21.9 ; Joint pain of lower extremity M25.50 ; Environmental allergies Z91.09 ; Stress incontinence of urine N39.3 ; Neuropathy G62.9 ; Edema R60.9 and Acute pain of left knee M25.562 [facility] [id number] [place] [address] 64560- 4109 Jun, [facility] [id number] [place] [address] [id number] Jun, Dental examination Z01.20 [facility] [id number] [place] [address] 77639- 4575 02 Jun, 2016 [facility] [id number] [place] [address] 19275- 1427 May, [facility] [id number] [place] [address] 05749- 9977 May, Bipolar 1 disorder F31.9 ; Joint pain of lower extremity M25.50 ; Environmental allergies Z91.09 ; Stress incontinence of urine N39.3 ; Major depressive disorder, single episode, unspecified F32.9 ; Dizzy R42 ; Schizoaffective disorder, unspecified F25.9 ; Neuropathy G62.9 ; Localized edema R60.0 and GERD (gastroesophageal reflux disease) K21.9 [place] [address] 21703- 4028 May, Schizoaffective disorder, depressive type F25.[address] 12903- 5253 May, Environmental allergies Z91.09 and Major depressive disorder , single episode, unspecified F32.9 [place] [address] 55140- 5964 Mar, Dental caries K02.9 [place] [address] 47330- 4520 Mar, Dental caries on smooth surface penetrating into pulp K02.63 [facility] [place] [address] 44289 -3858 Mar, Peripheral edema R60.9 and Dry skin L85.[address] 85272- 0302 Mar, [place] [address] 34316- 2908 Mar, Major depressive disorder, single episode, unspecified F32.9 [place] [address] 14844- 9941 Mar, Dental caries K02.9 [facility] [id number] [place] [address] 95547- 5087 Mar, Diabetes mellitus with complication E11.8 ; Urinary frequency R35.0 ; Stress incontinence of urine N39.3 ; Joint pain of lower extremity M25.50 ; Obesity E66.9 ; Environmental allergies Z91.09 ; Depression F32.9 ; Schizoaffective disorder, unspecified F25.9 ; Vaginal discharge N89.8 and Vaginal candidiasis B37.3 [place] [place] [id number] [place] [address] 71528- 1355 Jan, Schizoaffective disorder, unspecified F25.9 [place] [address] 53281- 5126 Jan, [place] [address] 99836- 5064 30 Dec, 2015 [place] [address] 44872- 2585 19 Dec, 2015 Dental caries K02.9 [place] [address] 85782- 4056 14 Dec, 2015 Obesity E66.9 ; Edema R60.9 ; Depression F32.9 ; Bipolar 1 disorder F31.9 ; 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 ; Environmental allergies Z91.09 ; Shortness of breath R06.02 ; Gastroesophageal reflux disease with esophagitis K21.0 ; Other chronic pain G89.29 ; Pain in right knee M25.561 ; Pain in left knee M25.562 and Encounter for immunization Z23 [facility] [id number] [place] [address] 54657- 4727 Nov, Dental caries K02.9 [place] [address] 10270- 7468 Oct, Schizoaffective disorder, unspecified F25.9 [place] [address] 83702- 2894 Oct, Dental examination Z01.20 [place] [address] 18357- 9930 Sep, Dental examination Z01.20 and Dental caries K02.9 [facility] [address] [address]- 1116 13 Sep, 2015 [facility] [id number] [place] [address] 69481- 2317 Sep, [facility] [id number] [place] [address] 47067- 9175 07 Sep, 2015 [facility] [id number] [place] [address] 60117- 5730 Sep, Schizoaffective disorder, unspecified F25.9 [facility] [id number] [place] [address] 37425- 3934 August, Bipolar disorder, unspecified F31.9 [facility] [id number] [place] [address] 98188- 0466 Jul, Edema R60.9 and Obesity E66.9 [facility] [id number] [place] [address] 65796- 4953 Jul, Edema R60.9 [facility] [id number] [place] [address] 25192- 0024 Jul, Edema R60.9 [facility] [id number] [place] [address] 32645 -0915 Jul, Edema R60.9 [facility] [id number] [place] [address] 37812- 5923 Jul, [facility] [id number] [place] [address] 15087- 0359 Jul, [facility] [id number] [place] [address] 06606- 2915 24 Jun, 2015 Environmental allergies V15.09 and Cough R05 [facility] [id number] [place] [address] 78594- 6635 17 Jun, 2015 Environmental allergies V15.09 ; Edema R60.9 and Cough R05 [facility] [id number] [place] [address] 44009 -2803 12 Jun, 2015 Bronchospasm J98.01 [facility] [address] 61474- 2843 10 Jun, 2015 [place] [id number] [place] [address] 88246- 0279 09 Jun, 2015 [place] [address] 96520- 8589 08 Jun, 2015 Environmental allergies V15.09 ; Bipolar 1 disorder F31.9 ; GERD (gastroesophageal reflux disease) K21.9 ; Depression F32.9 ; Joint pain of lower extremity M25.50 ; COPD (chronic obstructive pulmonary disease) J44.9 and Screening for diabetes mellitus Z13.1 [facility] [place] [id number] [place] [address] 12286- 9734 16 Jun, 2015 [place] [address] 29952- 0239 May, [facility] [id number] [place] [address] 55684- 1534 14 May, 2015 Schizoaffective disorder, unspecified F25.9 and Bipolar 1 disorder F31.9 [facility] [id number] [place] [address] 63736- 2705 May, [facility] [place] [id number] [place] [address] 98616- 2826 May, URI (upper respiratory infection) J06.9 ; Environmental allergies V15.09 and Cough R05 [facility] [id number] [place] [address] 50761- 0716 18 Mar, 2015 [facility] [id number] [place] [address] 19861- 9580 15 Mar, 2015 Vaginal discharge N89.8 [facility] [place] [id number] [place] [address] 63907- 0467 14 Mar, 2015 Schizoaffective disorder, unspecified F25.9 ; Major depressive disorder, single episode, unspecified F32.9 and Bipolar 1 disorder F31.9 [place] [address] 27433- 3722 Mar, [place] [address] 94369- 3643 Mar, Bipolar 1 disorder F31.9 [place] [address] 32443- 6633 Jan, [place] [address] 46630- 6282 Jan, Allergic rhinitis J30.9 and Cough R05 [address] 06312- 8157 Jan, 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 ; Bipolar 1 disorder F31.9 ; GERD ( gastroesophageal reflux disease) K21.9 ; Depression F32.9 and Joint pain of lower extremity M25.50 [place] [address] 07693- 8404 Dec, Encounter for immunization Z23 [address] 06744- 5809 Dec, Schizoaffective disorder, unspecified 295.70 ; Pain in joint , lower leg 719.46 ; Esophageal reflux 530.81 ; Bipolar 1 disorder 296.7 ; Depression 311 ; GERD (gastroesophageal reflux disease) 530.81 and Environmental allergies V15.09 [facility] [id number] [place] [address] [id number] Nov, Dental examination V72.2 [place] [address] 92910- 0381 Nov, Acute bronchitis 466.0 [place] [address] 34991- 4233 Nov, Schizoaffective disorder, unspecified 295.70 and Bipolar disorder, unspecified 296.80 [facility] [address] [id number] Sep, Dental examination V72.2 [facility] [id number] [place] [address] [id number] August, Dental examination V72.2 [facility] [id number] [place] [address] 17517 2546 August, Schizoaffective disorder, unspecified 295.70 [facility] [id number] [place] [address] 91696 2546 August, [facility] [id number] [place] [address] 10863 2546 August, Vomiting 787.03 [facility] [id number] [place] [address] 80032 2546 August, Vomiting and diarrhea 787.03 and High risk medication use V58.69 [facility] [id number] [place] [address] 33892- 5216 Jul, [facility] [id number] [place] [address] 15365- 5439 Jul, [facility] [id number] [place] [address] 62228- 2176 Jul, [facility] [address] [address]- 3766 Jun, [facility] [id number] [place] [address] 75749- 0226 Jun, [facility] [id number] [place] [address] 45224 2546 Jun, [facility] [id number] [place] [address] 89957- 2156 Jun, [facility] [id number] [place] [address] 33042- 2546 Jun, [facility] [id number] [place] [address] 88507- 1248 Jun, 2014 [facility] [place] [facility] [address] [id number] [place] [address]- 7022 Jun, 2014 [facility] [place] [facility] [address] [id number] [place] [address]- 9146 Jun, 2014 [facility] [place] [facility] [address] [id number] [place] [address]- 2396 Jun, [facility] [place] [facility] [address] [id number] [place] [address]- 9907 Mar, [facility] [place] [facility] [address] [id number] [place] [address]- 5406 Mar, [facility] [place] [facility] [address] [id number] [place] [address]- 2191 Mar, [facility] [place] [facility] [address] [id number] [place] [address]- 6551 Mar, [facility] [place] [facility] [address] [id number] [place] [address]- 4503 Mar, [facility] [place] [facility] [address] [id number] [place] [address]- 8752 Mar, [facility] [place] [facility] [address] [id number] [place] [address]- 8088 Mar, [facility] [place] [facility] [address] [id number] [place] [address]- 8074 Mar, [facility] [place] [facility] [address] [id number] [place] [address]- 0049 Mar, [facility] [place] [facility] [address] [id number] [place] [address]- 8106 Mar, [facility] [place] [facility] [address] [id number] [place] 8560 Jan, [facility] [place] [facility] [address] [id number] [place]- 5398 Jan, [facility] [place] [facility] [address] [id number] [place] [address]- 7402 Jan, [facility] [place] [facility] [address] [id number] [place] [address]- 3513 Jan, [facility] [place] [facility] [address] [id number] [place] [address]- 8126 Jan, [facility] [place] [facility] [address] [id number] [place] [address]- 8484 Jan, [facility] [place] [facility] [address] [id number] [place] [address]- 4107 Jan, [facility] [place] [facility] [address] [id number] [place] [address]- 7420 Jan, [facility] [place] [facility] [address] [id number] [place] [address]- 0011 19 Dec, 2013 [facility] [place] [facility] [address] [id number] [place] [address]- 2968 19 Dec, 2013 [facility] [place] [facility] [address] [id number] [place] [address]- 6620 15 Dec, 2013 [facility] [place] [facility] [address] [id number] [place] [address]- 6229 15 Dec, 2013 [facility] [place] [facility] [address] [id number] [place] [address]- 1691 15 Dec, 2013 [facility] [place] [facility] [address] [id number] [place] [address]- 5296 15 Dec, 2013 [facility] [place] [facility] [address] [id number] [place] [address]- 2288 12 Dec, 2013 [facility] [place] [facility] [address] [id number] [place] [address] 12 Dec, 2013 [facility] [place] [facility] [address] [id number] [place] [address] 03 Dec, 2013 [facility] [place] [facility] [address] [id number] [place] [address] Dec, [facility] [place] [facility] [address] [id number] [place] [address] Nov, [facility] [place] [facility] [address] [id number] [place] [address] Nov, [facility] [place] [facility] [address] [id number] [place] [address] Nov, [facility] [place] [facility] [address] [id number] [place] [address] Nov, [facility] [place] [facility] [address] [id number] [place] [address] Oct, [facility] [place] [facility] [address] [id number] [place] [address] Oct, [facility] [place] [facility] [address] [id number] [place] [address] Oct, [facility] [place] [facility] [address] [id number] [place] [address] Oct, [facility] [place] [facility] [address] [id number] [place] [address]- [address] Sep, [facility] [place] [facility] [address] [id number] [place] [address] Sep, [facility] [place] [facility] [address] [id number] [place] [address] Sep, [facility] [place] [facility] [address] [id number] [place] [address] Sep, [facility] [place] [facility] [address] [id number] [place] [address]- [address] Sep, [facility] [place] [facility] [address] [id number] [place] [address]- [address] Sep, [facility] [place] [facility] [address] [id number] [place] [address] Sep, [facility] [place] [facility] [address] [id number] [place] [address] Sep, [facility] [address] [id number] [place] [address] August, [facility] [place] [facility] [address] [id number] [place] [address] August, [facility] [address] [id number] [place] [address] Jul, [facility] [place] [facility] [address] [id number] [place] [address] Jul, [facility] [address] [id number] [place] [address] Jul, [facility] [place] [facility] [address] [id number] [place] [address] Jul, [facility] [address] [id number] [place] [place] [address] Jul, [facility] [address] [id number] [place] [address] Jul, [facility] [place] [facility] [address] [id number] [place] [address] Jul, [facility] [address] [id number] [place] [address] Jul, [facility] [place] [facility] [address] [id number] [place] [address] Jul, [facility] [place] [facility] [address] [id number] [place] [address] Jul, [facility] [place] [facility] [address] [id number] [place] [address] 89[address] Jun, [facility] [place] [facility] [address] [id number] [place] [address] 68[address] Jun, [facility] [place] [facility] [address] [id number] [place] [address]- [address] Jun, [facility] [place] [facility] [address] [id number] [place] [address] 18 Jun, 2013 [facility] [place] [facility] [address] [id number] [place] [address]- [address]92 17 Jun, 2013 [facility] [place] [facility] [address] [id number] [place] [address]- [address] 17 Jun, 2013 [facility] [place] [facility] [address] [id number] [place] [address]- 7625 17 Jun, 2013 [facility] [place] [facility] [address] [id number] [place] [address] 17 Jun, 2013 [facility] [place] [facility] [address] [id number] [place] [address]- 5742 14 Jun, 2013 [facility] [place] [facility] [address] [id number] [place] [address]- 6760 14 Jun, 2013 [facility] [place] [facility] [address] [id number] [place] [address]- 4027 07 Jun, 2013 [facility] [place] [facility] [address] [id number] [place] [address]- 3511 Jun, [facility] [place] [facility] [address] [id number] [place] [address]- 2742 Jun, [facility] [place] [facility] [address] [id number] [place] [address]- 4826 Jun, [facility] [place] [facility] [address] [id number] [place] [address]- [address]378 Jun, [facility] [place] [facility] [address] [id number] [place] [address]- 3460 Jun, [facility] [place] [facility] [address] [id number] [place] [address]- 3586 May, [facility] [place] [facility] [address] [id number] [place] [address] May, [facility] [place] [facility] [address] [id number] [place] [address]- 1420 May, [facility] [address] [id number] [place] [address]- [address]16 May, [facility] [place] [facility] [address] [id number] [place] [address] 9[address] Mar, [facility] [place] [facility] [address] [id number] [place] [address]- 5951 Mar, [facility] [place] [facility] [address] [id number] [place] [address] 3183 Mar, [facility] [place] [facility] [address] [id number] [place] [address]- 7254 Mar, [facility] [place] [facility] [address] [id number] [place] [address]- 2924 Mar, [facility] [place] [facility] [address] [id number] [place] [address]- 4344 Mar, [facility] [place] [facility] [address] [id number] [place] [address]- 1447 Mar, [facility] [place] [facility] [address] [id number] [place] [address]- 3248 Mar, [facility] [place] [facility] [address] [facility] [id number] [place] [address]- 2815 Jan, [facility] [place] [facility] [address] [id number] [place] [address]- 9524 Jan, [facility] [place] [facility] [address] [id number] [address]- 37[address] Jan, [facility] [place] [facility] [address] [id number] [place] [address]- 0548 Jan, [facility] [place] [facility] [address] [id number] [place] [address]- [address]28 Jan, [facility] [place] [facility] [address] [id number] [address]- 65[address] Jan, [facility] [place] [facility] [address] [id number] [place] [address]- 7384 Jan, [facility] [place] [facility] [address] [id number] [place] [address]- 6464 Dec, [facility] [place] [facility] [address] [id number] [place] [address]- [address] Nov, [facility] [place] [facility] [address] [id number] [place] [address]- 3369 Oct, [facility] [place] [facility] [address] [id number] [place] [address]- 6316 Oct, [facility] [place] [facility] [address] [id number] [place] [address]- [address]304 Sep, [facility] [place] [facility] [address] [id number] [place] [address]- 8535 Sep, [facility] [place] [facility] [address] [id number] [place] [address]- 6380 Sep, [facility] [place] [facility] [address] [id number] [place] [address]- 5369 August, [facility] [place] [facility] [address] [id number] [place] [address]- 6520 Jun, [facility] [place] [facility] [address] [id number] [place] [address]- 0637 Jun, [facility] [place] [facility] [address] [id number] [place] [address]- 3151 Jun, [facility] [place] [facility] [address] [id number] [place] [address]- 0037 Jun, [facility] [place] [facility] [address] [id number] [place] [address]- 5491 Jun, [facility] [place] [facility] [address] [id number] [place] [address] Jun, [facility] [place] [facility] [address] [id number] [place] [address]- [address]2 07 Jun, 2012 [facility] [address] [id number] [place] [address]- 4216 May, [facility] [address] [id number] [place] [address]- 4295 May, [facility] [address] [facility] [id number] [place] [address]- 6475 May, [facility] [address] [id number] [place] [address]- 9235 May, [facility] [address] [id number] [place] [address]- 2609 May, [facility] [address] [id number] [place] [address]- 5212 May, [facility] [address] [id number] [place] [address]- [address] May, [facility] [address] [id number] [place] [address]- 7621 Mar, [facility] [address] [id number] [place] [address]- 0683 Mar, [facility] [address] [facility] [id number] [place] [address]- 5193 Mar, [facility] [address] [id number] [place] [address]- 4383 Mar, [facility] [address] [id number] [place] [address]- 8431 Mar, [facility] [address] [id number] [place] [address]- 3675 Mar, [facility] [address] [facility] [id number] [place] [address]- 0969 Mar, [facility] [address] [id number] [place] [address]- 7609 Mar, [facility] [place] [facility] [address] [id number] [place] [address]- 4713 Mar, [facility] [place] [facility] [address] [id number] [place] [address]- 1870 Mar, [facility] [place] [facility] [address] [id number] [place] [address]- 5356 Mar, [facility] [place] [facility] [address] [id number] [place] [address]- 4960 Mar, [facility] [place] [facility] [address] [id number] [place] [address]- 9931 Mar, [facility] [place] [facility] [address] [id number] [place] [address]- 7572 Mar, [facility] [place] [facility] [address] [id number] [place] [address]- 3805 Mar, [facility] [place] [facility] [address] [id number] [place] [address]- 6728 Mar, [facility] [place] [facility] [address] [id number] [place] [address]- 5036 Mar, [facility] [place] [facility] [address] [id number] [place] [address]- 3284 Mar, [facility] [place] [facility] [address] [id number] [place] [address]- 2730 Mar, [facility] [place] [facility] [address] [id number] [place] [address]- 6001 Jan, [facility] [place] [facility] [address] [id number] [place] [address]- 0689 Jan, [facility] [place] [facility] [address] [id number] [place] [address]- 5597 Jan, [facility] [place] [facility] [address] [id number] [place] [address]- 3070 Jan, [facility] [place] [facility] [address] [id number] [place] [address] 1608 Dec, [facility] [address] [id number] [address]- 407[address] Dec, [facility] [id number] [address]- 500[address] Dec, [facility] [id number] [address]- 1561 Nov, [facility] [id number] [place] [address]- 6725 Nov, [facility] [id number] [place] [address]15[address]- 5748 Oct, [facility] [id number] [place] [address]34[address]- 6864 Oct, [facility] [id number] [place] [address]- 1920 Oct, [facility] [id number] [address]- 3377 Oct, [facility] [id number] [address]- 3[address] Oct, [facility] [id number] [address]- 6491 Oct, IMMUNIZATIONS No Known Immunizations SOCIAL HISTORY Never Assessed REASON FOR VISIT MTM (Medication Therapy Management) PLAN OF CARE VITAL SIGNS MEDICATIONS Unknown [...]
--- OUTSIDE RECORDS SUMMARY | 2018-05-15 06:10 | XMS REPORT ---
Author Author RAY NEVAREZ [facility] Address [address] [place] [address] Care Team Providers Care Certified Recreational Therapist Name Role Phone RAY NEVAREZ Unavailable PROBLEMS Type Condition ICD9-CM Code OEB29-WH Code Onset Dates Condition Status SNOMED Code Problem Major depressive disorder, single episode, unspecified F32.9 Active 13907316 Problem Schizoaffective disorder, bipolar type F25.0 Active 24070142 Problem Neuropathy G62.9 Active 018074824 Problem COPD suggested by initial evaluation J44.9 Active 50434103 Problem Body mass index (BMI) of 45.0-49.9 in adult Z68.42 Active 121683241 Problem Post-menopausal bleeding N95.0 Active 23016046 Problem 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 Active 562753931 Problem Morbid (severe) obesity due to excess calories E66.01 Active 599719977 Problem Primary osteoarthritis of left knee M17.12 Active 153531787 Problem Obstructive sleep apnea G47.33 Active 80058360 Problem Bipolar 1 disorder F31.9 Active 527440128 Problem Edema R60.9 Active 377967619 Problem Depression F32.9 Active 41819005 Problem Obesity E66.9 Active 957943378 Problem GERD (gastroesophageal reflux disease) K21.9 Active 656172600 Problem Environmental allergies Z91.09 Active 710801445 ALLERGIES No Information ENCOUNTERS Encounter Location Date Diagnosis [facility] [address] [facility] [id number] [address] Jan, [facility] [id number] [place] [address] 82338- 5034 Dec, [facility] [id number] [address] Nov, Obstructive sleep apnea G47.33 and COPD suggested by initial evaluation J44.9 [facility] [address] [address] Nov, COPD (chronic obstructive pulmonary disease) J44.9 [facility] [id number] [address] 8067 Nov, [facility] [id number] [address]- 7169 Oct, [facility] [id number] [place] [address] 97455- 0782 Oct, [facility] [id number] [place] [address] 74177- 7640 Oct, 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 (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 Z79.899 [facility] [id number] [place] [address] 00147- 4677 Oct, Schizoaffective disorder, bipolar type F25.0 ; 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 and Other penitentiary (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 Z79.899 [facility] [id number] [address] 3[address] Oct, Prediabetes R73.03 ; COPD suggested by initial evaluation J44.9 ; BMI 45.0-49.9, adult Z68.42 and Obstructive sleep apnea G47.33 [facility] [address] [address] 5[address] Sep, [facility] [id number] [address] 3567 August, Neuropathy G62.9 [facility] [id number] [address] 0380 August, [facility] [id number] [address] 2518 August, [facility] [address] [address]- 9422 Jul, [facility] [id number] [place] [address] 45897- 9885 Jul, Primary osteoarthritis of left knee M17.12 [place] [address] [address]- 1948 Jul, Schizoaffective disorder, bipolar type F25.0 and 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 [place] [address] 08840- 7494 Jul, Prediabetes R73.03 ; Primary osteoarthritis of left knee M17.12 ; GERD (gastroesophageal reflux disease) K21.9 ; Bipolar 1 disorder F31.9 ; Depression F32.9 ; Environmental allergies Z91.09 ; Neuropathy G62.9 ; Edema R60.9 ; Body mass index (BMI) of 45.0-49.9 in adult Z68.42 and Morbid ( severe) obesity due to excess calories E66.01 [place] [address] 92030- 4600 Jul, [place] [address] 86907- 9356 Jun, [place] [address] 43807- 6577 Jun, [place] [id number] [place] [address] 45840- 3056 Jun, Wound of right breast, initial encounter S21.001A and Prediabetes R73.03 [place] [id number] [place] [address] 87372- 8145 Jun, [place] [id number] [place] [address] 64068- 9202 May, GERD (gastroesophageal reflux disease) K21.9 [place] [id number] [place] [address] 39849- 5925 May, Primary osteoarthritis of left knee M17.12 [place] [id number] [place] [address] 41331- 0091 May, Schizoaffective disorder, bipolar type F25.0 and 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 [place] [id number] [place] [address] 48518- 1944 May, Left medial knee pain M25.562 ; GERD (gastroesophageal reflux disease) K21.9 ; Depression F32.9 ; Neuropathy G62.9 ; Obesity E66.9 ; Prediabetes R73.03 and Edema R60.9 [place] [id number] [place] [address] 83463- 2408 14 Mar, 2017 [place] [address] 67481- 9682 Mar, [place] [address] 22741- 7246 05 Mar, 2017 Post-menopausal bleeding N95.0 and BMI 50.0-59.9, adult Z68.43 [place] [address] 48263- 4082 Mar, [place] [id number] [place] [address] 70969- 1182 Mar, Schizoaffective disorder, bipolar type F25.0 and 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 [place] [id number] [place] [address] 97250- 5472 27 Mar, 2017 [place] [id number] [place] [address] 36461- 0445 16 Mar, 2017 [place] [id number] [place] [address] 47482- 8473 10 Mar, 2017 Post-menopausal bleeding N95.0 ; Screening breast examination Z12.31 ; Screen for STD (sexually transmitted disease) Z11.3 ; Obesity E66.9 ; Family history of ovarian cancer Z80.41 and Family history of cervical cancer Z80.49 [place] [id number] [place] [address] 71921- 0162 03 Mar, 2017 [place] [id number] [address]- 2945 Mar, [facility] [id number] [place] [address] 25882- 7799 Jan, Schizoaffective disorder, bipolar type F25.0 and 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 [facility] [id number] [place] [address] 32840- 5702 Jan, Schizoaffective disorder, bipolar type F25.0 [facility] [id number] [place] [address] 29080- 3264 Jan, [facility] [id number] [place] [address] 61031- 8834 Jan, Prediabetes R73.03 and Obesity E66.9 [facility] [id number] [place] [address] 28751- 2529 Jan, Encounter for immunization Z23 [facility] [id number] [place] [address] 66911- 0823 Jan, [facility] [id number] [place] [address] 96810- 7326 Dec, [facility] [id number] [place] [address] 40629- 4382 Dec, [facility] [id number] [place] [address] 44672- 5396 Nov, Neuropathy G62.9 [facility] [id number] [address]- 6611 Nov, [facility] [id number] [place] [address] 64361- 2354 Nov, Schizoaffective disorder, bipolar type F25.0 [facility] [address] [address]- 0740 Nov, Other penitentiary (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 Z79.899 and Schizoaffective disorder, bipolar type F25.0 [facility] [id number] [place] [address] 06281- 9326 Oct, Schizoaffective disorder, bipolar type F25.0 ; 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 (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 Z79.899 and 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 [facility] [id number] [place] [address] [id number] Oct, Dental caries K02.9 [facility] [id number] [place] [address] 95226- 6531 Sep, Neuropathy G62.9 [facility] [id number] [place] [address] 56197- 8922 Sep, [facility] [id number] [place] [address] 76918- 3404 Sep, Neuropathy G62.9 [facility] [id number] [place] [address] 94299- 3301 Jul, Schizoaffective disorder, depressive type F25.1 [facility] [id number] [place] [address] 98984- 3269 Jul, GERD (gastroesophageal reflux disease) K21.9 ; Joint pain of lower extremity M25.50 ; Environmental allergies Z91.09 ; Stress incontinence of urine N39.3 ; Neuropathy G62.9 ; Edema R60.9 and Acute pain of left knee M25.562 [facility] [id number] [place] [address] 07420- 0051 Jun, [facility] [id number] [place] [address] [id number] Jun, Dental examination Z01.20 [facility] [id number] [place] [address] 73937- 6809 02 Jun, 2016 [facility] [id number] [place] [address] 40384- 9571 May, [facility] [id number] [place] [address] 66489- 2310 May, Bipolar 1 disorder F31.9 ; Joint pain of lower extremity M25.50 ; Environmental allergies Z91.09 ; Stress incontinence of urine N39.3 ; Major depressive disorder, single episode, unspecified F32.9 ; Dizzy R42 ; Schizoaffective disorder, unspecified F25.9 ; Neuropathy G62.9 ; Localized edema R60.0 and GERD (gastroesophageal reflux disease) K21.9 [place] [address] 02846- 5841 May, Schizoaffective disorder, depressive type F25.[address] 21568- 1226 May, Environmental allergies Z91.09 and Major depressive disorder , single episode, unspecified F32.9 [place] [address] 61057- 3595 Mar, Dental caries K02.9 [place] [address] 59513- 7052 Mar, Dental caries on smooth surface penetrating into pulp K02.63 [facility] [place] [address] [address]13 -9538 Mar, Peripheral edema R60.9 and Dry skin L85.[address] 21478- 5163 Mar, [place] [address] 21743- 9649 Mar, Major depressive disorder, single episode, unspecified F32.9 [place] [address] 42495- 5309 Mar, Dental caries K02.9 [place] [id number] [place] [address] 13163- 9037 Mar, Diabetes mellitus with complication E11.8 ; Urinary frequency R35.0 ; Stress incontinence of urine N39.3 ; Joint pain of lower extremity M25.50 ; Obesity E66.9 ; Environmental allergies Z91.09 ; Depression F32.9 ; Schizoaffective disorder, unspecified F25.9 ; Vaginal discharge N89.8 and Vaginal candidiasis B37.3 [place] [id number] [place] [address] 70203- 6255 Jan, Schizoaffective disorder, unspecified F25.9 [place] [address] 88977- 8453 Jan, [place] [address] 88899- 3348 30 Dec, 2015 [place] [address] 50607- 0040 19 Dec, 2015 Dental caries K02.9 [place] [address] 10697- 4434 14 Dec, 2015 Obesity E66.9 ; Edema R60.9 ; Depression F32.9 ; Bipolar 1 disorder F31.9 ; 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 ; Environmental allergies Z91.09 ; Shortness of breath R06.02 ; Gastroesophageal reflux disease with esophagitis K21.0 ; Other chronic pain G89.29 ; Pain in right knee M25.561 ; Pain in left knee M25.562 and Encounter for immunization Z23 [place] [id number] [place] [address] 81629- 1378 Nov, Dental caries K02.9 [place] [address] 73273- 2460 Oct, Schizoaffective disorder, unspecified F25.9 [place] [address] 03444- 5217 Oct, Dental examination Z01.20 [place] [address] 46319- 7602 Sep, Dental examination Z01.20 and Dental caries K02.9 [facility] [address] [address]- 3131 13 Sep, 2015 [facility] [id number] [place] [address] 18525- 9636 Sep, [facility] [id number] [place] [address] 71008- 3171 07 Sep, 2015 [facility] [id number] [place] [address] 25883- 0651 Sep, Schizoaffective disorder, unspecified F25.9 [facility] [id number] [place] [address] 74956- 6272 August, Bipolar disorder, unspecified F31.9 [facility] [id number] [place] [address] 90330- 2170 Jul, Edema R60.9 and Obesity E66.9 [facility] [id number] [place] [address] 57951- 3253 Jul, Edema R60.9 [facility] [id number] [place] [address] 22991- 0217 Jul, Edema R60.9 [facility] [id number] [place] [address] 65325 -0932 Jul, Edema R60.9 [facility] [id number] [place] [address] 86071- 8657 Jul, [facility] [id number] [place] [address] 08435- 1653 Jul, [facility] [id number] [place] [address] 51801- 4068 24 Jun, 2015 Environmental allergies V15.09 and Cough R05 [facility] [id number] [place] [address] 01927- 3509 17 Jun, 2015 Environmental allergies V15.09 ; Edema R60.9 and Cough R05 [facility] [id number] [place] [address] 26419 -1454 12 Jun, 2015 Bronchospasm J98.01 [facility] [address] 92526- 9905 10 Jun, 2015 [place] [id number] [place] [address] 98956- 2883 09 Jun, 2015 [place] [address] 23549- 9210 08 Jun, 2015 Environmental allergies V15.09 ; Bipolar 1 disorder F31.9 ; GERD (gastroesophageal reflux disease) K21.9 ; Depression F32.9 ; Joint pain of lower extremity M25.50 ; COPD (chronic obstructive pulmonary disease) J44.9 and Screening for diabetes mellitus Z13.1 [place] [id number] [place] [address] 21484- 6939 16 Jun, 2015 [place] [address] 74476- 6433 May, [place] [id number] [place] [address] 36447- 6062 14 May, 2015 Schizoaffective disorder, unspecified F25.9 and Bipolar 1 disorder F31.9 [place] [id number] [place] [address] 44530- 2073 May, [place] [id number] [place] [address] 50588- 2634 May, URI (upper respiratory infection) J06.9 ; Environmental allergies V15.09 and Cough R05 [place] [id number] [place] [address] 95294- 3762 18 Mar, 2015 [place] [id number] [place] [address] 16632- 2213 15 Mar, 2015 Vaginal discharge N89.8 [place] [id number] [place] [address] 49230- 6141 14 Mar, 2015 Schizoaffective disorder, unspecified F25.9 ; Major depressive disorder, single episode, unspecified F32.9 and Bipolar 1 disorder F31.9 [place] [address] 16295- 8395 Mar, [place] [address] 81177- 6095 Mar, Bipolar 1 disorder F31.9 [place] [address] 98229- 3663 Jan, [place] [address] 56163- 0719 Jan, Allergic rhinitis J30.9 and Cough R05 [address] 61039- 1611 Jan, 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 ; Bipolar 1 disorder F31.9 ; GERD ( gastroesophageal reflux disease) K21.9 ; Depression F32.9 and Joint pain of lower extremity M25.50 [place] [address] 91622- 3526 Dec, Encounter for immunization Z23 [address] 01160- 9492 Dec, Schizoaffective disorder, unspecified 295.70 ; Pain in joint , lower leg 719.46 ; Esophageal reflux 530.81 ; Bipolar 1 disorder 296.7 ; Depression 311 ; GERD (gastroesophageal reflux disease) 530.81 and Environmental allergies V15.09 [facility] [id number] [place] [address] [phone] Nov, Dental examination V72.2 [place] [address] 20548- 3160 Nov, Acute bronchitis 466.0 [place] [address] 38066- 6154 Nov, Schizoaffective disorder, unspecified 295.70 and Bipolar disorder, unspecified 296.80 [facility] [address] [id number] Sep, Dental examination V72.2 [facility] [id number] [place] [address] [id number] August, Dental examination V72.2 [facility] [id number] [place] [address] 23751 2546 August, Schizoaffective disorder, unspecified 295.70 [facility] [id number] [place] [address] 73206 2546 August, [facility] [id number] [place] [address] 96679 2546 August, Vomiting 787.03 [facility] [id number] [place] [address] 10351 2546 August, Vomiting and diarrhea 787.03 and High risk medication use V58.69 [facility] [id number] [place] [address] 18883- 7306 Jul, [facility] [id number] [place] [address] 84630- 6142 Jul, [facility] [id number] [place] [address] 16791- 4096 Jul, [facility] [address] [address]- 9786 Jun, [facility] [address] [place] [address] 16250- 4876 Jun, [facility] [address] [place] [address] 55008 2546 Jun, [facility] [id number] [place] [address] 50389- 7676 Jun, [facility] [id number] [place] [address] 98792- 2546 Jun, [facility] [id number] [place] [address] 64266- 5836 Jun, 2014 [facility] [place] [facility] [address] [id number] [place] [address]- 9398 Jun, 2014 [facility] [place] [facility] [address] [id number] [place] [address]- 9496 Jun, 2014 [facility] [place] [facility] [address] [facility] [id number] [place] [address]- 9946 Jun, [facility] [place] [facility] [address] [facility] [id number] [place] [address]- 5482 Mar, [facility] [place] [facility] [address] [id number] [place] [address]- 1462 Mar, [facility] [place] [facility] [address] [facility] [id number] [place] [address]- 7360 Mar, [facility] [place] [facility] [address] [facility] [id number] [place] [address]- 9578 Mar, [facility] [place] [facility] [address] [facility] [id number] [place] [address]- 9648 Mar, [facility] [place] [facility] [address] [facility] [id number] [place] [address]- 6633 Mar, [facility] [place] [facility] [address] [facility] [id number] [place] [address]- 9403 Mar, [facility] [place] [facility] [address] [facility] [id number] [place] [address]- 0891 Mar, [facility] [place] [facility] [address] [facility] [id number] [place] [address]- 5159 Mar, [facility] [place] [facility] [address] [id number] [place] [address]- 3643 Mar, [facility] [place] [facility] [address] [facility] [id number] [place] 3341 Jan, [facility] [place] [facility] [address] [facility] [id number] [place] 4147 Jan, [facility] [place] [facility] [address] [id number] [place] [address]- 9537 Jan, [facility] [place] [facility] [address] [id number] [place] [address]- 3894 Jan, [facility] [place] [facility] [address] [id number] [place] [address]- 7173 Jan, [facility] [place] [facility] [address] [id number] [place] [address]- 5009 Jan, [facility] [place] [facility] [address] [id number] [place] [address]- 0472 Jan, [facility] [place] [facility] [address] [id number] [place] [address]- 2896 Jan, [facility] [place] [facility] [address] [id number] [place] [address]- 80[address] 19 Dec, 2013 [facility] [place] [facility] [address] [id number] [place] [address] 19 Dec, 2013 [facility] [place] [facility] [address] [id number] [place] [address] 15 Dec, 2013 [facility] [place] [facility] [address] [id number] [place] [address] 15 Dec, 2013 [facility] [place] [facility] [address] [id number] [place] [address] 15 Dec, 2013 [facility] [place] [facility] [address] [id number] [place] [address] 15 Dec, 2013 [facility] [place] [facility] [address] [id number] [place] [address] 12 Dec, 2013 [facility] [place] [facility] [address] [id number] [place] [address] 12 Dec, 2013 [facility] [place] [facility] [address] [id number] [place] [address] 03 Dec, 2013 [facility] [place] [facility] [address] [id number] [place] [address] Dec, [facility] [place] [facility] [address] [id number] [place] [address] Nov, [facility] [place] [facility] [address] [id number] [place] [address] Nov, [facility] [place] [facility] [address] [id number] [place] [address] Nov, [facility] [place] [facility] [address] [id number] [place] [address] Nov, [facility] [place] [facility] [address] [id number] [place] [address] Oct, [facility] [place] [facility] [address] [id number] [place] [address] Oct, [facility] [place] [facility] [address] [id number] [place] [address] Oct, [facility] [place] [facility] [address] [id number] [place] [address] Oct, [facility] [place] [facility] [address] [id number] [place] [address] Sep, [facility] [place] [facility] [address] [id number] [place] [address] Sep, [facility] [place] [facility] [address] [id number] [place] [address] Sep, [facility] [place] [facility] [address] [id number] [place] [address] Sep, [facility] [place] [facility] [address] [id number] [place] [address] Sep, [facility] [place] [facility] [address] [id number] [place] [address] Sep, [facility] [place] [facility] [address] [id number] [place] [address] Sep, [facility] [place] [facility] [address] [id number] [place] [address] Sep, [facility] [address] [id number] [place] [address] August, [facility] [place] [facility] [address] [id number] [place] [address] August, [facility] [address] [id number] [place] [address] Jul, [facility] [place] [facility] [address] [id number] [place] [address] Jul, [facility] [address] [id number] [place] [address] Jul, [facility] [place] [facility] [address] [id number] [place] [address] Jul, [facility] [address] [address] [id number] [place] [address] Jul, [facility] [address] [id number] [place] [address] Jul, [facility] [place] [facility] [address] [id number] [place] [address] Jul, [facility] [address] [id number] [place] [address] Jul, [facility] [place] [facility] [address] [id number] [place] [address] Jul, [facility] [place] [facility] [address] [id number] [place] [address] Jul, [facility] [place] [facility] [address] [id number] [place] [address] Jun, [facility] [place] [facility] [address] [id number] [place] [address] Jun, [facility] [place] [facility] [address] [id number] [place] [address] Jun, [facility] [place] [facility] [address] [id number] [place] [address] 18 Jun, 2013 [facility] [place] [facility] [address] [id number] [place] [address] 17 Jun, 2013 [facility] [place] [facility] [address] [id number] [place] [address] 17 Jun, 2013 [facility] [place] [facility] [address] [id number] [place] [address] 17 Jun, 2013 [facility] [place] [facility] [address] [id number] [place] [address] 17 Jun, 2013 [facility] [place] [facility] [address] [id number] [place] [address] 14 Jun, 2013 [facility] [place] [facility] [address] [id number] [place] [address] 14 Jun, 2013 [facility] [place] [facility] [address] [id number] [place] [address]- [address] 07 Jun, 2013 [facility] [place] [facility] [address] [id number] [place] [address] 77[address] Jun, [facility] [place] [facility] [address] [id number] [place] [address] Jun, [facility] [place] [facility] [address] [id number] [place] [address] Jun, [facility] [place] [facility] [address] [id number] [place] [address] Jun, [facility] [place] [facility] [address] [id number] [place] [address] Jun, [facility] [place] [facility] [address] [id number] [place] [address] May, [facility] [place] [facility] [address] [id number] [place] [address] May, [facility] [place] [facility] [address] [id number] [place] [address] May, [facility] [address] [id number] [place] [address] 69[address] May, [facility] [place] [facility] [address] [id number] [place] [address] 9568 Mar, [facility] [place] [facility] [address] [id number] [place] [address]702 Mar, [facility] [place] [facility] [address] [id number] [place] [address] Mar, [facility] [place] [facility] [address] [id number] [place] [address] 0562 Mar, [facility] [place] [facility] [address] [id number] [place] [address]99 Mar, [facility] [place] [facility] [address] [id number] [place] [address] Mar, [facility] [place] [facility] [address] [id number] [place] [address]14 Mar, [facility] [place] [facility] [address] [id number] [place] [address] Mar, [facility] [place] [facility] [address] [facility] [id number] [place] [address] Jan, [facility] [place] [facility] [address] [id number] [place] [address] Jan, [facility] [place] [facility] [address] [id number] [place] [address] Jan, [facility] [place] [facility] [address] [id number] [place] [address] 99[address] Jan, [facility] [place] [facility] [address] [id number] [place] [address] 2110 Jan, [facility] [place] [facility] [address] [id number] [place] [address] 49[address] Jan, [facility] [place] [facility] [address] [id number] [place] [address] Jan, [facility] [place] [facility] [address] [id number] [place] [address] Dec, [facility] [place] [facility] [address] [id number] [place] [address] Nov, [facility] [place] [facility] [address] [id number] [place] [address] Oct, [facility] [place] [facility] [address] [id number] [place] [address] 30[address] Oct, [facility] [place] [facility] [address] [id number] [place] [address]28 Sep, [facility] [place] [facility] [address] [id number] [place] [address] Sep, [facility] [place] [facility] [address] [id number] [place] [address] 1073 Sep, [facility] [place] [facility] [address] [id number] [place] [address] August, [facility] [place] [facility] [address] [id number] [place] [address] 1679 Jun, [facility] [place] [facility] [address] [id number] [place] [address] 2531 Jun, [facility] [place] [facility] [address] [id number] [place] [address] Jun, [facility] [place] [facility] [address] [id number] [place] [address]- 8[address] Jun, [facility] [place] [facility] [address] [id number] [place] [address] 5624 Jun, [facility] [place] [facility] [address] [id number] [place] [address] Jun, [facility] [place] [facility] [address] [id number] [place] [address]- 2845 07 Jun, 2012 [facility] [address] [id number] [place] [address] 6951 May, [facility] [address] [id number] [place] [address] 7235 May, [facility] [address] [facility] [id number] [place] [address] 5771 May, [facility] [address] [id number] [place] [address] 0660 May, [facility] [address] [id number] [place] [address] 6248 May, [facility] [address] [id number] [place] [address] 7[address] May, [facility] [address] [facility] [id number] [place] [address] 1755 May, [facility] [address] [id number] [place] [address] 0845 Mar, [facility] [address] [id number] [place] [address] 7346 Mar, [facility] [address] [facility] [id number] [place] [address]- 6594 Mar, [facility] [address] [facility] [id number] [place] [address]- 5538 Mar, [facility] [address] [id number] [place] [address]- 3228 Mar, [facility] [address] [id number] [place] [address]- 5096 Mar, [facility] [address] [facility] [id number] [place] [address]- 1366 Mar, [facility] [address] [facility] [id number] [place] [address]- 0163 Mar, [facility] [place] [facility] [address] [id number] [place] [address]- 7055 Mar, [facility] [place] [facility] [address] [id number] [place] [address]- 6888 Mar, [facility] [place] [facility] [address] [id number] [place] [address]- 0798 Mar, [facility] [place] [facility] [address] [id number] [place] [address]- 5082 Mar, [facility] [place] [facility] [address] [id number] [place] [address]- 2371 Mar, [facility] [place] [facility] [address] [id number] [place] [address]- 1138 Mar, [facility] [place] [facility] [address] [id number] [place] [address]- 8182 Mar, [facility] [place] [facility] [address] [id number] [place] [address]- 2215 Mar, [facility] [place] [facility] [address] [id number] [place] [address]- 0764 Mar, [facility] [place] [facility] [address] [id number] [place] [address]- 2097 Mar, [facility] [place] [facility] [address] [id number] [place] [address]- 0817 Mar, [facility] [place] [facility] [address] [id number] [place] [address]- 1455 Jan, [facility] [place] [facility] [address] [id number] [place] [address]- 0708 Jan, [facility] [place] [facility] [address] [id number] [place] [address]- 1748 Jan, [facility] [place] [facility] [address] [id number] [place] [address]- 0631 Jan, [facility] [place] [facility] [address] [id number] [place] [address]- [address] Dec, [facility] [address] [id number] [address] Dec, [facility] [id number] [address]48 Dec, [facility] [id number] [address]- 4138 Nov, [facility] [id number] [place] [address]- 2701 Nov, [facility] [id number] [place] [address]- 2497 Oct, [facility] [id number] [place] [address]- 6689 Oct, [facility] [id number] [place] [address]- 5331 Oct, [facility] [id number] [address]- 0787 Oct, [facility] [id number] [address]- 3827 Oct, [facility] [id number] [address]- 5544 Oct, IMMUNIZATIONS No Known Immunizations SOCIAL HISTORY Never Assessed REASON FOR VISIT T-[facility] [employer] PROFESSION[employer]/OVEN HEATER PLAN OF CARE Activity Details Follow Up prn Reason: VITAL SIGNS MEDICATIONS Unknown Medications RESULTS No Results PROCEDURES Procedure Date Ordered Result Body Site PULMONARY FUNCTION TEST (IN-HOUSE) 2017-12-29 Normal NEB/MDI DEMO Dec 29, 2017 SPIROMETRY Dec 29, 2017 INSTRUCTIONS MEDICATIONS ADMINISTERED No Known Medications MEDICAL [...]
--- OUTSIDE RECORDS SUMMARY | 2018-05-15 06:10 | XMS REPORT ---
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 Role Phone RAY NEVAREZ Unavailable PROBLEMS Type Condition ICD9-CM Code [id number] Code Onset Dates Condition Status SNOMED Code Problem Major depressive disorder, single episode, unspecified F32.9 Active 40728506 Problem Schizoaffective disorder, bipolar type F25.0 Active 74480242 Problem Neuropathy G62.9 Active 265211461 Problem COPD suggested by initial evaluation J44.9 Active 86648931 Problem Body mass index (BMI) of 45.0-49.9 in adult Z68.42 Active 374555248 Problem Post-menopausal bleeding N95.0 Active 06376892 Problem 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 Active 727056053 Problem Morbid (severe) obesity due to excess calories E66.01 Active 138846253 Problem Primary osteoarthritis of left knee M17.12 Active 036716001 Problem Obstructive sleep apnea G47.33 Active 67135474 Problem Bipolar 1 disorder F31.9 Active 785255131 Problem Edema R60.9 Active 525452054 Problem Depression F32.9 Active 56625621 Problem Obesity E66.9 Active 940363272 Problem GERD (gastroesophageal reflux disease) K21.9 Active 581385483 Problem Environmental allergies Z91.09 Active 949369803 ALLERGIES No Information ENCOUNTERS Encounter Location Date Diagnosis [facility] [address] [facility] [id number] [address] Jan, [facility] [id number] [place] [address] 41876- 5210 05 Dec, 2017 [facility] [address] [address] Nov, Obstructive sleep apnea G47.33 and COPD suggested by initial evaluation J44.9 [facility] [address] [address] Nov, COPD (chronic obstructive pulmonary disease) J44.9 [facility] [id number] [address] 8[address] Nov, [facility] [id number] [address] 9881 Oct, [facility] [id number] [place] [address] 34926- 2374 Oct, [facility] [id number] [place] [address] 89401- 5451 Oct, 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 [facility] [id number] [place] [address] 73385- 0348 Oct, Schizoaffective disorder, bipolar type F25.0 ; 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 and Other halfway (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 Z79.899 [facility] [id number] [address] Oct, Prediabetes R73.03 ; COPD suggested by initial evaluation J44.9 ; BMI 45.0-49.9, adult Z68.42 and Obstructive sleep apnea G47.33 [facility] [address], [place] [address] Sep, [facility] [address] [id number] [address] 7637 August, Neuropathy G62.9 [facility] [address] [address] 49[address] August, [facility] [id number] [address] 4185 August, [facility] [address], [place] [address] 4081 Jul, [facility] [id number] [place] [address] 82199- 5488 Jul, Primary osteoarthritis of left knee M17.12 [place] [address] 57672- 0896 Jul, Schizoaffective disorder, bipolar type F25.0 and 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 [place] [address] 27006- 3562 Jul, Prediabetes R73.03 ; Primary osteoarthritis of left knee M17.12 ; GERD (gastroesophageal reflux disease) K21.9 ; Bipolar 1 disorder F31.9 ; Depression F32.9 ; Environmental allergies Z91.09 ; Neuropathy G62.9 ; Edema R60.9 ; Body mass index (BMI) of 45.0-49.9 in adult Z68.42 and Morbid ( severe) obesity due to excess calories E66.01 [place] [address] 88539- 4023 Jul, [place] [address] 09752- 2134 Jun, [place] [address] 97984- 3426 Jun, [place] [id number] [place] [address] 86696- 0976 Jun, Wound of right breast, initial encounter S21.001A and Prediabetes R73.03 [place] [id number] [place] [address] 12144- 3669 Jun, [place] [id number] [place] [address] 98548- 8571 May, GERD (gastroesophageal reflux disease) K21.9 [place] [id number] [place] [address] 66229- 1388 May, Primary osteoarthritis of left knee M17.12 [place] [id number] [place] [address] 63043- 5686 May, Schizoaffective disorder, bipolar type F25.0 and 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 [place] [id number] [place] [address] 81442- 8861 May, Left medial knee pain M25.562 ; GERD (gastroesophageal reflux disease) K21.9 ; Depression F32.9 ; Neuropathy G62.9 ; Obesity E66.9 ; Prediabetes R73.03 and Edema R60.9 [place] [id number] [place] [address] 48741- 2314 14 Mar, 2017 [place] [address] 07651- 1559 Mar, [place] [address] 24677- 5678 05 Mar, 2017 Post-menopausal bleeding N95.0 and BMI 50.0-59.9, adult Z68.43 [place] [address] 14455- 4023 Mar, [place] [id number] [place] [address] 58439- 3601 Mar, Schizoaffective disorder, bipolar type F25.0 and 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 [place] [id number] [place] [address] 13732- 7618 27 Mar, 2017 [place] [id number] [place] [address] 53587- 3566 16 Mar, 2017 [place] [id number] [place] [address] 84749- 5768 10 Mar, 2017 Post-menopausal bleeding N95.0 ; Screening breast examination Z12.31 ; Screen for STD (sexually transmitted disease) Z11.3 ; Obesity E66.9 ; Family history of ovarian cancer Z80.41 and Family history of cervical cancer Z80.49 [place] [id number] [place] [address] 92052- 9106 03 Mar, 2017 [place] [id number] [address] 2131 Mar, [facility] [id number] [place] [address] 21728- 8527 Jan, Schizoaffective disorder, bipolar type F25.0 and 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 [facility] [id number] [place] [address] 39254- 5792 Jan, Schizoaffective disorder, bipolar type F25.0 [facility] [id number] [place] [address] 00389- 6647 Jan, [facility] [id number] [place] [address] 46684- 7157 Jan, Prediabetes R73.03 and Obesity E66.9 [facility] [id number] [place] [address] 88034- 4106 Jan, Encounter for immunization Z23 [facility] [id number] [place] [address] 84429- 2274 Jan, [facility] [id number] [place] [address] 57591- 0756 Dec, [facility] [id number] [place] [address] 84024- 9477 Dec, [facility] [id number] [place] [address] 55175- 9356 Nov, Neuropathy G62.9 [facility] [address] [id number] [address]- 7154 Nov, [facility] [id number] [place] [address] 62769- 5798 Nov, Schizoaffective disorder, bipolar type F25.0 [facility] [address], [place] [address]- 8737 Nov, Other halfway (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 Z79.899 and Schizoaffective disorder, bipolar type F25.0 [facility] [id number] [place] [address] 57520- 7210 Oct, Schizoaffective disorder, bipolar type F25.0 ; 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 and 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 [facility] [id number] [place] [address] [id number] Oct, Dental caries K02.9 [facility] [id number] [place] [address] 24841- 1793 Sep, Neuropathy G62.9 [facility] [id number] [place] [address] 89288- 4566 Sep, [facility] [id number] [place] [address] 98908- 8134 Sep, Neuropathy G62.9 [facility] [id number] [place] [address] 86269- 2148 Jul, Schizoaffective disorder, depressive type F25.1 [facility] [id number] [place] [address] 70882- 9804 Jul, GERD (gastroesophageal reflux disease) K21.9 ; Joint pain of lower extremity M25.50 ; Environmental allergies Z91.09 ; Stress incontinence of urine N39.3 ; Neuropathy G62.9 ; Edema R60.9 and Acute pain of left knee M25.562 [facility] [id number] [place] [address] 56779- 1596 Jun, [facility] [id number] [place] [address] [id number] Jun, Dental examination Z01.20 [facility] [id number] [place] [address] 34544- 9133 02 Jun, 2016 [facility] [id number] [place] [address] 33835- 6960 May, [facility] [id number] [place] [address] 13042- 7805 May, Bipolar 1 disorder F31.9 ; Joint pain of lower extremity M25.50 ; Environmental allergies Z91.09 ; Stress incontinence of urine N39.3 ; Major depressive disorder, single episode, unspecified F32.9 ; Dizzy R42 ; Schizoaffective disorder, unspecified F25.9 ; Neuropathy G62.9 ; Localized edema R60.0 and GERD (gastroesophageal reflux disease) K21.9 [place] [address] 24494- 2266 May, Schizoaffective disorder, depressive type F25.[address] 47452- 4571 May, Environmental allergies Z91.09 and Major depressive disorder , single episode, unspecified F32.9 [place] [address] 47747- 6946 Mar, Dental caries K02.9 [place] [address] 24933- 9813 Mar, Dental caries on smooth surface penetrating into pulp K02.63 [facility] [place] [address] 22423 -3161 Mar, Peripheral edema R60.9 and Dry skin L85.[address] 91011- 5562 Mar, [place] [address] 47446- 6007 Mar, Major depressive disorder, single episode, unspecified F32.9 [place] [address] 20553- 9318 Mar, Dental caries K02.9 [place] [id number] [place] [address] 57805- 4002 Mar, Diabetes mellitus with complication E11.8 ; Urinary frequency R35.0 ; Stress incontinence of urine N39.3 ; Joint pain of lower extremity M25.50 ; Obesity E66.9 ; Environmental allergies Z91.09 ; Depression F32.9 ; Schizoaffective disorder, unspecified F25.9 ; Vaginal discharge N89.8 and Vaginal candidiasis B37.3 [place] [id number] [place] [address] 74218- 4652 Jan, Schizoaffective disorder, unspecified F25.9 [place] [address] 57282- 3126 Jan, [place] [address] 25927- 0093 30 Dec, 2015 [place] [address] 03809- 2390 19 Dec, 2015 Dental caries K02.9 [place] [address] 61390- 8288 14 Dec, 2015 Obesity E66.9 ; Edema R60.9 ; Depression F32.9 ; Bipolar 1 disorder F31.9 ; 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 ; Environmental allergies Z91.09 ; Shortness of breath R06.02 ; Gastroesophageal reflux disease with esophagitis K21.0 ; Other chronic pain G89.29 ; Pain in right knee M25.561 ; Pain in left knee M25.562 and Encounter for immunization Z23 [place] [id number] [place] [address] 34176- 5398 Nov, Dental caries K02.9 [place] [address] 97942- 4925 Oct, Schizoaffective disorder, unspecified F25.9 [place] [address] 61466- 3123 Oct, Dental examination Z01.20 [place] [address] 19016- 4653 Sep, Dental examination Z01.20 and Dental caries K02.9 [facility] [address], [place] [address]- 2467 13 Sep, 2015 [facility] [id number] [place] [address] 08741- 0482 Sep, [facility] [id number] [place] [address] 04877- 1465 07 Sep, 2015 [facility] [id number] [place] [address] 63201- 2887 Sep, Schizoaffective disorder, unspecified F25.9 [facility] [id number] [place] [address] 79200- 2498 August, Bipolar disorder, unspecified F31.9 [facility] [id number] [place] [address] 24926- 6603 Jul, Edema R60.9 and Obesity E66.9 [facility] [id number] [place] [address] 93470- 9778 Jul, Edema R60.9 [facility] [id number] [place] [address] 72093- 3202 Jul, Edema R60.9 [facility] [id number] [place] [address] 69491 -4865 Jul, Edema R60.9 [facility] [id number] [place] [address] 14977- 5228 Jul, [facility] [id number] [place] [address] 48199- 1269 Jul, [facility] [id number] [place] [address] 25716- 8012 24 Jun, 2015 Environmental allergies V15.09 and Cough R05 [facility] [id number] [place] [address] 43601- 2507 17 Jun, 2015 Environmental allergies V15.09 ; Edema R60.9 and Cough R05 [facility] [id number] [place] [address] 94082 -4387 12 Jun, 2015 Bronchospasm J98.01 [facility] [address] 77957- 4103 10 Jun, 2015 [place] [id number] [place] [address] 56936- 4777 09 Jun, 2015 [place] [address] 83476- 9021 08 Jun, 2015 Environmental allergies V15.09 ; Bipolar 1 disorder F31.9 ; GERD (gastroesophageal reflux disease) K21.9 ; Depression F32.9 ; Joint pain of lower extremity M25.50 ; COPD (chronic obstructive pulmonary disease) J44.9 and Screening for diabetes mellitus Z13.1 [place] [id number] [place] [address] 45752- 7746 16 Jun, 2015 [place] [address] 13085- 6766 May, [place] [id number] [place] [address] 31186- 3095 14 May, 2015 Schizoaffective disorder, unspecified F25.9 and Bipolar 1 disorder F31.9 [place] [id number] [place] [address] 18385- 0695 May, [place] [id number] [place] [address] 05368- 4008 May, URI (upper respiratory infection) J06.9 ; Environmental allergies V15.09 and Cough R05 [place] [id number] [place] [address] 98153- 6588 18 Mar, 2015 [place] [id number] [place] [address] 86330- 8945 15 Mar, 2015 Vaginal discharge N89.8 [place] [id number] [place] [address] 07739- 0195 14 Mar, 2015 Schizoaffective disorder, unspecified F25.9 ; Major depressive disorder, single episode, unspecified F32.9 and Bipolar 1 disorder F31.9 [place] [address] 97704- 2060 Mar, [place] [address] 41531- 8275 Mar, Bipolar 1 disorder F31.9 [place] [address] 23182- 7450 Jan, [place] [address] 88208- 0047 Jan, Allergic rhinitis J30.9 and Cough R05 [address] 79233- 3328 Jan, 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 ; Bipolar 1 disorder F31.9 ; GERD ( gastroesophageal reflux disease) K21.9 ; Depression F32.9 and Joint pain of lower extremity M25.50 [place] [address] 46310- 4866 Dec, Encounter for immunization Z23 [address] 39480- 6230 Dec, Schizoaffective disorder, unspecified 295.70 ; Pain in joint , lower leg 719.46 ; Esophageal reflux 530.81 ; Bipolar 1 disorder 296.7 ; Depression 311 ; GERD (gastroesophageal reflux disease) 530.81 and Environmental allergies V15.09 [facility] [id number] [place] [address] [id number] Nov, Dental examination V72.2 [place] [address] 52870- 5963 Nov, Acute bronchitis 466.0 [place] [address] 95635- 5310 Nov, Schizoaffective disorder, unspecified 295.70 and Bipolar disorder, unspecified 296.80 [facility] [address] [id number] Sep, Dental examination V72.2 [facility] [id number] [place] [address] [id number] August, Dental examination V72.2 [facility] [id number] [place] [address] 63526 2546 August, Schizoaffective disorder, unspecified 295.70 [facility] [id number] [place] [address] 90020 2546 August, [facility] [id number] [place] [address] 55592 2546 August, Vomiting 787.03 [facility] [id number] [place] [address] 60597 2546 August, Vomiting and diarrhea 787.03 and High risk medication use V58.69 [facility] [id number] [place] [address] 03922- 9976 Jul, [facility] [id number] [place] [address] 65232- 9225 Jul, [facility] [id number] [place] [address] 94551- 0346 Jul, [facility] [address] [address]- 7466 Jun, [facility] [id number] [place] [address] 95556- 9216 Jun, [facility] [id number] [place] [address] 38400 2546 Jun, [facility] [id number] [place] [address] 55369- 8996 Jun, [facility] [id number] [place] [address] 98951- 2546 Jun, [facility] [id number] [place] [address] 11961- 5242 Jun, 2014 [facility] [place] [facility] [address] [id number] [place] [address]- 5278 Jun, 2014 [facility] [place] [facility] [address] [id number] [place] [address]- 9686 Jun, 2014 [facility] [place] [facility] [address] [facility] [id number] [place] [address]- 0816 Jun, [facility] [place] [facility] [address] [facility] [id number] [place] [address]- 7978 Mar, [facility] [place] [facility] [address] [id number] [place] [address]- 5548 Mar, [facility] [place] [facility] [address] [facility] [id number] [place] [address]- 3795 Mar, [facility] [place] [facility] [address] [facility] [id number] [place] [address]- 9605 Mar, [facility] [place] [facility] [address] [facility] [id number] [place] [address]- 5041 Mar, [facility] [place] [facility] [address] [facility] [id number] [place] [address]- 0617 Mar, [facility] [place] [facility] [address] [facility] [id number] [place] [address]- 4198 Mar, [facility] [place] [facility] [address] [facility] [id number] [place] [address]- 6996 Mar, [facility] [place] [facility] [address] [facility] [id number] [place] [address]- 3265 Mar, [facility] [place] [facility] [address] [id number] [place] [address]- 5371 Mar, [facility] [place] [facility] [address] [facility] [id number] [place] 0039 Jan, [facility] [place] [facility] [address] [facility] [id number] [place]- 4969 Jan, [facility] [place] [facility] [address] [id number] [place] [address]- 9567 Jan, [facility] [place] [facility] [address] [id number] [place] [address] Jan, [facility] [place] [facility] [address] [id number] [place] [address] Jan, [facility] [place] [facility] [address] [id number] [place] [address] Jan, [facility] [place] [facility] [address] [id number] [place] [address] Jan, [facility] [place] [facility] [address] [id number] [place] [address] Jan, [facility] [place] [facility] [address] [id number] [place] [address] 19 Dec, 2013 [facility] [place] [facility] [address] [id number] [place] [address] 19 Dec, 2013 [facility] [place] [facility] [address] [id number] [place] [address] 15 Dec, 2013 [facility] [place] [facility] [address] [id number] [place] [address] 15 Dec, 2013 [facility] [place] [facility] [address] [id number] [place] [address] 15 Dec, 2013 [facility] [place] [facility] [address] [id number] [place] [address] 15 Dec, 2013 [facility] [place] [facility] [address] [id number] [place] [address] 12 Dec, 2013 [facility] [place] [facility] [address] [id number] [place] [address] 12 Dec, 2013 [facility] [place] [facility] [address] [id number] [place] [address] 03 Dec, 2013 [facility] [place] [facility] [address] [id number] [place] [address] Dec, [facility] [place] [facility] [address] [id number] [place] [address] Nov, [facility] [place] [facility] [address] [id number] [place] [address] Nov, [facility] [place] [facility] [address] [id number] [place] [address] Nov, [facility] [place] [facility] [address] [id number] [place] [address] Nov, [facility] [place] [facility] [address] [id number] [place] [address] Oct, [facility] [place] [facility] [address] [id number] [place] [address] Oct, [facility] [place] [facility] [address] [id number] [place] [address] Oct, [facility] [place] [facility] [address] [id number] [place] [address] Oct, [facility] [place] [facility] [address] [id number] [place] [address] Sep, [facility] [place] [facility] [address] [id number] [place] [address] Sep, [facility] [place] [facility] [address] [id number] [place] [address] Sep, [facility] [place] [facility] [address] [id number] [place] [address] Sep, [facility] [place] [facility] [address] [id number] [place] [address] Sep, [facility] [place] [facility] [address] [id number] [place] [address] Sep, [facility] [place] [facility] [address] [id number] [place] [address] Sep, [facility] [place] [facility] [address] [id number] [place] [address] Sep, [facility] [address] [id number] [place] [address] August, [facility] [place] [facility] [address] [id number] [place] [address] 14[address] August, [facility] [address] [id number] [place] [address] Jul, [facility] [place] [facility] [address] [id number] [place] [address] Jul, [facility] [address] [id number] [place] [address] Jul, [facility] [place] [facility] [address] [id number] [place] [address] Jul, [facility] [address] [id number] [place] [address] Jul, [facility] [address] [id number] [place] [address] Jul, [facility] [place] [facility] [address] [id number] [place] [address] Jul, [facility] [address] [id number] [place] [address] Jul, [facility] [place] [facility] [address] [id number] [place] [address] Jul, [facility] [place] [facility] [address] [id number] [place] [address] 89[address] Jul, [facility] [place] [facility] [address] [id number] [place] [address] Jun, [facility] [place] [facility] [address] [id number] [place] [address] Jun, [facility] [place] [facility] [address] [id number] [place] [address] Jun, [facility] [place] [facility] [address] [id number] [place] [address] 120[address] 18 Jun, 2013 [facility] [place] [facility] [address] [id number] [place] [address]- [address] 17 Jun, 2013 [facility] [place] [facility] [address] [id number] [place] [address]- 8467 17 Jun, 2013 [facility] [place] [facility] [address] [id number] [place] [address]66 17 Jun, 2013 [facility] [place] [facility] [address] [id number] [place] [address]- [address] 17 Jun, 2013 [facility] [place] [facility] [address] [id number] [place] [address]- [address] 14 Jun, 2013 [facility] [place] [facility] [address] [id number] [place] [address]- [address] 14 Jun, 2013 [facility] [place] [facility] [address] [id number] [place] [address] 07 Jun, 2013 [facility] [place] [facility] [address] [id number] [place] [address] 7626 Jun, [facility] [place] [facility] [address] [id number] [place] [address] 8831 Jun, [facility] [place] [facility] [address] [id number] [place] [address] Jun, [facility] [place] [facility] [address] [id number] [place] [address] 97[address] Jun, [facility] [place] [facility] [address] [id number] [place] [address] 75[address] Jun, [facility] [place] [facility] [address] [id number] [place] [address] May, [facility] [place] [facility] [address] [id number] [place] [address] May, [facility] [place] [facility] [address] [id number] [place] [address] May, [facility] [address] [id number] [place] [address] May, [facility] [place] [facility] [address] [id number] [place] [address] Mar, [facility] [place] [facility] [address] [id number] [place] [address] Mar, [facility] [place] [facility] [address] [id number] [place] [address] 6916 Mar, [facility] [place] [facility] [address] [id number] [place] [address] Mar, [facility] [place] [facility] [address] [id number] [place] [address] 0099 Mar, [facility] [place] [facility] [address] [id number] [place] [address] Mar, [facility] [place] [facility] [address] [id number] [place] [address] 6190 Mar, [facility] [place] [facility] [address] [id number] [place] [address] 1573 Mar, [facility] [place] [facility] [address] [facility] [id number] [place] [address] Jan, [facility] [place] [facility] [address] [id number] [place] [address] 6[address] Jan, [facility] [place] [facility] [address] [id number], [place] [address] Jan, [facility] [place] [facility] [address] [id number] [place] [address] Jan, [facility] [place] [facility] [address] [id number] [place] [address] 1249 Jan, [facility] [place] [facility] [address] [id number], [place] [address] Jan, [facility] [place] [facility] [address] [id number] [place] [address]- 4628 Jan, [facility] [place] [facility] [address] [id number] [place] [address]- 2612 Dec, [facility] [place] [facility] [address] [id number] [place] [address]88 Nov, [facility] [place] [facility] [address] [id number] [place] [address] 3539 Oct, [facility] [place] [facility] [address] [id number] [place] [address] 8166 Oct, [facility] [place] [facility] [address] [id number] [place] [address] 6809 Sep, [facility] [place] [facility] [address] [id number] [place] [address] Sep, [facility] [place] [facility] [address] [id number] [place] [address] 3597 Sep, [facility] [place] [facility] [address] [id number] [place] [address] August, [facility] [place] [facility] [address] [id number] [place] [address] 2773 Jun, [facility] [place] [facility] [address] [id number] [place] [address]- 5976 Jun, [facility] [place] [facility] [address] [id number], [place] [address] Jun, [facility] [place] [facility] [address] [id number] [place] [address] 5428 Jun, [facility] [place] [facility] [address] [id number] [place] [address] 8652 Jun, [facility] [place] [facility] [address] [id number] [place] [address] Jun, [facility] [place] [facility] [address] [id number], [place] [address] 07 Jun, 2012 [facility] [address] [id number] [place] [address]- 5057 May, [facility] [address] [id number] [place] [address]- 4561 May, [facility] [address] [facility] [id number] [place] [address]- 4559 May, [facility] [address] [id number] [place] [address]- 8239 May, [facility] [address] [id number] [place] [address]- 1159 May, [facility] [address] [id number] [place] [address]- 1345 May, [facility] [address] [facility] [id number], [place] [address]- [address]62 May, [facility] [address] [id number] [place] [address]- 7548 Mar, [facility] [address] [id number] [place] [address]- 9850 Mar, [facility] [address] [facility] [id number] [place] [address]- 6597 Mar, [facility] [address] [facility] [id number], [place] [address]- 2625 Mar, [facility] [address] [id number], [place] [address]- 0916 Mar, [facility] [address] [id number], [place] [address]- 0[address] Mar, [facility] [address] [facility] [id number], [place] [address]- 2490 Mar, [facility] [address] [facility] [id number], [place] [address]- 3825 Mar, [facility] [place] [facility] [address] [id number] [place] [address]- 0943 Mar, [facility] [place] [facility] [address] [id number] [place] [address]- 5546 Mar, [facility] [place] [facility] [address] [id number] [place] [address]- 9102 Mar, [facility] [place] [facility] [address] [id number] [place] [address]- 1393 Mar, [facility] [place] [facility] [address] [id number] [place] [address]- 0268 Mar, [facility] [place] [facility] [address] [id number] [place] [address]- 8579 Mar, [facility] [place] [facility] [address] [id number] [place] [address]- 0646 Mar, [facility] [place] [facility] [address] [id number] [place] [address]- 9314 Mar, [facility] [place] [facility] [address] [id number] [place] [address]- 5965 Mar, [facility] [place] [facility] [address] [id number] [place] [address]- 0156 Mar, [facility] [place] [facility] [address] [id number] [place] [address]- 6332 Mar, [facility] [place] [facility] [address] [id number] [place] [address]- 3720 Jan, [facility] [place] [facility] [address] [id number] [place] [address]- 4585 Jan, [facility] [place] [facility] [address] [id number] [place] [address]- 6550 Jan, [facility] [place] [facility] [address] [id number] [place] [address]- 4013 Jan, [facility] [place] [facility] [address] [id number] [place] [address]- 8254 Dec, [facility] [address] [id number], [place] [address]- [address]60 Dec, [facility] [id number], [place] [address]- [address]156 Dec, [facility] [id number], [place] [address]- 3808 Nov, [facility] [id number], [place] [address]- 2852 Nov, [facility] [id number], [place] [address]- 4955 Oct, [facility] [id number] [place] [address]- 6874 Oct, [facility] [id number], [place] [address]- 1198 Oct, [facility] [id number], [place] [address]- 0706 Oct, [facility] [id number], [place] [address]- 1836 Oct, [facility] [id number], [place] [address]- 2185 Oct, IMMUNIZATIONS No Known Immunizations SOCIAL HISTORY Never Assessed REASON FOR VISIT Requesting return call PLAN OF CARE VITAL SIGNS MEDICATIONS Medication Instructions Dosage Frequency Start Date End Date Duration Status C-PAP Supplies as directed Dec, Active RESULTS No Results PROCEDURES No Known [...]
--- OUTSIDE RECORDS SUMMARY | 2018-05-15 06:11 | XMS REPORT ---
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 Name Role Phone RAY NEVAREZ Unavailable PROBLEMS Type Condition ICD9-CM Code IOD93-WQ Code Onset Dates Condition Status SNOMED Code Problem Major depressive disorder, single episode, unspecified F32.9 Active 35724029 Problem Schizoaffective disorder, bipolar type F25.0 Active 42753933 Problem Neuropathy G62.9 Active 891731959 Problem COPD suggested by initial evaluation J44.9 Active 08343095 Problem Body mass index (BMI) of 45.0-49.9 in adult Z68.42 Active 195197935 Problem Post-menopausal bleeding N95.0 Active 82632932 Problem 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 [address] [facility] [id number] [address] Jan, [facility] [address], [place] [address] Dec, [facility] [address], [place] [address] Nov, Obstructive sleep apnea G47.33 and COPD suggested by initial evaluation J44.9 [facility] [address], [place] [address] 2442 Nov, COPD (chronic obstructive pulmonary disease) J44.9 [facility] [id number], [place] [address] Nov, [facility] [address] [id number] [address] Oct, [facility] [id number] [place] [address] 79080- 3315 Oct, 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 [id number], [place] [address] 16[address] Oct, Prediabetes R73.03 ; COPD suggested by initial evaluation J44.9 ; BMI 45.0-49.9, adult Z68.42 and Obstructive sleep apnea G47.33 [facility] [address], [place] [address] 134[address] Sep, [facility] [id number], [place] [address] 3296 August, Neuropathy G62.9 [facility] [address], [place] [address] August, [facility] [id number] [address] August, [facility] [address], [place] [address] 2955 Jul, 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 [place] [address] 79349- 4584 Jul, Prediabetes R73.03 ; Primary osteoarthritis of left knee M17.12 ; GERD (gastroesophageal reflux disease) K21.9 ; Bipolar 1 disorder F31.9 ; Depression F32.9 ; Environmental allergies Z91.09 ; Neuropathy G62.9 ; Edema R60.9 ; Body mass index (BMI) of 45.0-49.9 in adult Z68.42 and Morbid ( severe) obesity due to excess calories E66.01 [place] [address] 63624- 4717 Jul, [place] [address] 21561- 7289 Jun, [place] [address] 36925- 1076 Jun, [place] [id number] [place] [address] 38235- 9630 Jun, Wound of right breast, initial encounter S21.001A and Prediabetes R73.03 [place] [id number] [place] [address] 26989- 5224 Jun, [place] [id number] [place] [address] 23926- 2315 May, GERD (gastroesophageal reflux disease) K21.9 [place] [id number] [place] [address] 35197- 0230 May, Primary osteoarthritis of left knee M17.12 [place] [id number] [place] [address] 02168- 9361 May, Schizoaffective disorder, bipolar type F25.0 and 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 [place] [id number] [place] [address] 72957- 5970 May, Left medial knee pain M25.562 ; GERD (gastroesophageal reflux disease) K21.9 ; Depression F32.9 ; Neuropathy G62.9 ; Obesity E66.9 ; Prediabetes R73.03 and Edema R60.9 [place] [id number] [place] [address] 65140- 3181 14 Mar, 2017 [place] [address] 67916- 5212 Mar, [place] [address] 87158- 3099 05 Mar, 2017 Post-menopausal bleeding N95.0 and BMI 50.0-59.9, adult Z68.43 [place] [address] 75061- 8149 Mar, [place] [id number] [place] [address] 76481- 2530 Mar, Schizoaffective disorder, bipolar type F25.0 and 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 [place] [id number] [place] [address] 00559- 2941 27 Mar, 2017 [place] [id number] [place] [address] 32343- 1229 16 Mar, 2017 [place] [id number] [place] [address] 77087- 0969 10 Mar, 2017 Post-menopausal bleeding N95.0 ; Screening breast examination Z12.31 ; Screen for STD (sexually transmitted disease) Z11.3 ; Obesity E66.9 ; Family history of ovarian cancer Z80.41 and Family history of cervical cancer Z80.49 [place] [id number] [place] [address] 79688- 0436 03 Mar, 2017 [place] [id number], [place] [address] 37[address] Mar, 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 [id number] [place] [address] 85113- 0654 Jan, Schizoaffective disorder, bipolar type F25.0 [facility] [id number] [place] [address] 08493- 6403 Jan, [facility] [id number] [place] [address] 80861- 9687 Jan, Prediabetes R73.[address] [facility] [id number] [place] [address] 86520- 7453 Jan, Encounter for immunization Z23 [facility] [id number] [place] [address] 34327- 6590 Jan, [facility] [id number] [place] [address] 84253- 6152 Dec, [facility] [id number] [place] [address] 47968- 9708 Dec, [facility] [id number] [place] [address] 46432- 7788 Nov, Neuropathy G62.9 [facility] [id number], [place] [address] 0196 Nov, [facility] [id number] [place] [address] 26708- 7962 Nov, Schizoaffective disorder, bipolar type F25.0 [facility] [address], [place] [address]- 8940 Nov, Other shelter (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 Z79.899 and Schizoaffective disorder, bipolar type F25.0 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 [id number] [place] [address] 27615- 8686 Sep, Neuropathy G62.9 [facility] [id number] [place] [address] 01799- 8017 Sep, [facility] [id number] [place] [address] 31089- 0376 Sep, Neuropathy G62.9 [facility] [id number] [place] [address] 40153- 9740 Jul, Schizoaffective disorder, depressive type F25.1 [facility] [id number] [place] [address] 22048- 4551 Jul, GERD (gastroesophageal reflux disease) K21.9 ; Joint pain of lower extremity M25.50 ; Environmental allergies Z91.09 ; Stress incontinence of urine N39.3 ; Neuropathy G62.9 ; Edema R60.9 and Acute pain of left knee M25.562 [facility] [id number] [place] [address] 49850- 2392 Jun, [facility] [id number] [place] [address] [id number] Jun, Dental examination Z01.20 [facility] [id number] [place] [address] 96844- 0135 02 Jun, 2016 [facility] [id number] [place] [address] 60553- 6000 May, [facility] [id number] [place] [address] 67106- 6597 May, Bipolar 1 disorder F31.9 ; Joint pain of lower extremity M25.50 ; Environmental allergies Z91.09 ; Stress incontinence of urine N39.3 ; Major depressive disorder, single episode, unspecified F32.9 ; Dizzy R42 ; Schizoaffective disorder, unspecified F25.9 ; Neuropathy G62.9 ; Localized edema R60.0 and GERD (gastroesophageal reflux disease) K21.9 [place] [address] 32115- 8190 May, Schizoaffective disorder, depressive type F25.[address] 34499- 6230 May, Environmental allergies Z91.09 and Major depressive disorder , single episode, unspecified F32.9 [place] [address] 30351- 8497 Mar, Dental caries K02.9 [place] [address] 73600- 5302 Mar, Dental caries on smooth surface penetrating into pulp K02.63 [facility] [place] [address] 32439 -8392 Mar, Peripheral edema R60.9 and Dry skin L85.[address] 76060- 7313 Mar, [place] [address] 66270- 4822 Mar, Major depressive disorder, single episode, unspecified F32.9 [place] [address] 74312- 7642 Mar, Dental caries K02.9 [place] [id number] [place] [address] 54485- 0712 Mar, Diabetes mellitus with complication E11.8 ; Urinary frequency R35.0 ; Stress incontinence of urine N39.3 ; Joint pain of lower extremity M25.50 ; Obesity E66.9 ; Environmental allergies Z91.09 ; Depression F32.9 ; Schizoaffective disorder, unspecified F25.9 ; Vaginal discharge N89.8 and Vaginal candidiasis B37.3 [place] [id number] [place] [address] 14156- 5925 Jan, Schizoaffective disorder, unspecified F25.9 [place] [address] 66369- 7089 Jan, [place] [address] 99203- 7679 30 Dec, 2015 [place] [address] 15792- 9512 19 Dec, 2015 Dental caries K02.9 [place] [address] 00239- 1789 14 Dec, 2015 Obesity E66.9 ; Edema R60.9 ; Depression F32.9 ; Bipolar 1 disorder F31.9 ; 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 ; Environmental allergies Z91.09 ; Shortness of breath R06.02 ; Gastroesophageal reflux disease with esophagitis K21.0 ; Other chronic pain G89.29 ; Pain in right knee M25.561 ; Pain in left knee M25.562 and Encounter for immunization Z23 [place] [id number] [place] [address] 80763- 9354 Nov, Dental caries K02.9 [place] [address] 49430- 4801 Oct, Schizoaffective disorder, unspecified F25.9 [place] [address] 04973- 4700 Oct, Dental examination Z01.20 [place] [address] 31924- 7136 Sep, Dental examination Z01.20 and Dental caries K02.9 [facility] [address], [place] [address]- 2447 13 Sep, 2015 [facility] [id number] [place] [address] 81948- 4245 Sep, [facility] [id number] [place] [address] 87451- 8787 07 Sep, 2015 [facility] [id number] [place] [address] 25367- 7364 Sep, Schizoaffective disorder, unspecified F25.9 [facility] [id number] [place] [address] 46958- 0476 August, Bipolar disorder, unspecified F31.9 [facility] [id number] [place] [address] 32147- 8468 Jul, Edema R60.[address] [facility] [id number] [place] [address] 75807- 2960 Jul, Edema R60.9 [facility] [id number] [place] [address] 05793- 0022 Jul, Edema R60.9 [facility] [id number] [place] [address] 64652 -7464 Jul, Edema R60.9 [facility] [id number] [place] [address] 79416- 9368 Jul, [facility] [id number] [place] [address] 52001- 1889 Jul, [facility] [id number] [place] [address] 17019- 0047 24 Jun, 2015 Environmental allergies V15.[address] [facility] [id number] [place] [address] 79290- 1698 17 Jun, 2015 Environmental allergies V15.09 ; Edema R60.9 and Cough R05 [facility] [id number] [place] [address] 71357 -9980 12 Jun, [address] [facility] [address] 62581- 1818 10 Jun, 2015 [place] [id number] [place] [address] 56542- 9260 09 Jun, 2015 [place] [address] 02623- 7971 08 Jun, 2015 Environmental allergies V15.09 ; Bipolar 1 disorder F31.9 ; GERD (gastroesophageal reflux disease) K21.9 ; Depression F32.9 ; Joint pain of lower extremity M25.50 ; COPD (chronic obstructive pulmonary disease) J44.9 and Screening for diabetes mellitus Z13.1 [place] [id number] [place] [address] 07548- 5141 16 Jun, 2015 [place] [address] 45268- 7948 May, [place] [id number] [place] [address] 56480- 5532 14 May, 2015 Schizoaffective disorder, unspecified F25.9 and Bipolar 1 disorder F31.9 [place] [id number] [place] [address] 76524- 6038 May, [place] [id number] [place] [address] 98394- 1526 May, URI (upper respiratory infection) J06.9 ; Environmental allergies V15.09 and Cough R05 [place] [id number] [place] [address] 93934- 6868 18 Mar, 2015 [place] [id number] [place] [address] 07104- 1997 15 Mar, 2015 Vaginal discharge N89.8 [place] [id number] [place] [address] 97728- 1798 14 Mar, 2015 Schizoaffective disorder, unspecified F25.9 ; Major depressive disorder, single episode, unspecified F32.9 and Bipolar 1 disorder F31.9 [place] [address] 38331- 9181 Mar, [place] [address] 16077- 4219 Mar, Bipolar 1 disorder F31.9 [place] [address] 26364- 1923 Jan, [place] [address] 97681- 8216 Jan, Allergic rhinitis J30.9 and Cough R05 [address] 47875- 6557 Jan, 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 ; Bipolar 1 disorder F31.9 ; GERD ( gastroesophageal reflux disease) K21.9 ; Depression F32.9 and Joint pain of lower extremity M25.50 [place] [address] 98329- 9216 Dec, Encounter for immunization Z23 [address] 35181- 2322 Dec, Schizoaffective disorder, unspecified 295.70 ; Pain in joint , lower leg 719.46 ; Esophageal reflux 530.81 ; Bipolar 1 disorder 296.7 ; Depression 311 ; GERD (gastroesophageal reflux disease) 530.81 and Environmental allergies V15.09 [facility] [id number] [place] [address] [id number] Nov, Dental examination V72.2 [place] [address] 85876- 5158 Nov, Acute bronchitis 466.0 [place] [address] 91158- 4917 Nov, Schizoaffective disorder, unspecified 295.70 and Bipolar disorder, unspecified 296.80 [facility] [address] [address] Sep, Dental examination V72.2 [facility] [id number] [place] [address] [id number] August, Dental examination V72.2 [facility] [id number] [place] [address] 91352 2546 August, Schizoaffective disorder, unspecified 295.70 [facility] [id number] [place] [address] 74107 2546 August, [facility] [id number] [place] [address] 58622 2546 August, Vomiting 787.03 [facility] [id number] [place] [address] 77401 2546 August, Vomiting and diarrhea 787.03 and High risk medication use V58.69 [facility] [id number] [place] [address] 57064- 3566 Jul, [facility] [id number] [place] [address] 30134- 7073 Jul, [facility] [id number] [place] [address] 65039- 0336 Jul, [facility] [address], [place] [address]- 8236 Jun, [facility] [id number] [place] [address] 34271- 3996 Jun, [facility] [id number] [place] [address] 40243 [address], [facility] [id number] [place] [address] 28687- [address]6 Jun, [facility] [id number] [place] [address] 18017- 2546 Jun, [facility] [id number] [place] [address] 26991- 9879 Jun, 2014 [facility] [place] [facility] [address] [id number] [place] [address]- 2988 Jun, 2014 [facility] [place] [facility] [address] [id number] [place] [address]- 7756 Jun, 2014 [facility] [place] [facility] [address] [facility] [id number] [place] [address]- 7886 Jun, [facility] [place] [facility] [address] [facility] [id number] [place] [address]- 9208 Mar, [facility] [place] [facility] [address] [id number] [place] [address]- 1698 Mar, [facility] [place] [facility] [address] [facility] [id number] [place] [address]- 5689 Mar, [facility] [place] [facility] [address] [facility] [id number] [place] [address]- 2410 Mar, [facility] [place] [facility] [address] [facility] [id number] [place] [address]- 8189 Mar, [facility] [place] [facility] [address] [facility] [id number] [place] [address]- 3966 Mar, [facility] [place] [facility] [address] [facility] [id number] [place] [address]- 8073 Mar, [facility] [place] [facility] [address] [facility] [id number] [place] [address]- 7718 Mar, [facility] [place] [facility] [address] [facility] [id number] [place] [address]- 1120 Mar, [facility] [place] [facility] [address] [id number] [place] [address]- 4975 Mar, [facility] [place] [facility] [address] [facility] [id number] [place] 7089 Jan, [facility] [place] [facility] [address] [facility] [id number] [place] Jan, [facility] [place] [facility] [address] [id number] [place] [address] Jan, [facility] [place] [facility] [address] [id number] [place] [address] Jan, [facility] [place] [facility] [address] [id number] [place] [address] Jan, [facility] [place] [facility] [address] [id number] [place] [address] Jan, [facility] [place] [facility] [address] [id number] [place] [address] Jan, [facility] [place] [facility] [address] [id number] [place] [address] Jan, [facility] [place] [facility] [address] [id number] [place] [address] 19 Dec, 2013 [facility] [place] [facility] [address] [id number] [place] [address] 19 Dec, 2013 [facility] [place] [facility] [address] [id number] [place] [address] 15 Dec, 2013 [facility] [place] [facility] [address] [id number] [place] [address] 15 Dec, 2013 [facility] [place] [facility] [address] [id number] [place] [address] 15 Dec, 2013 [facility] [place] [facility] [address] [id number] [place] [address] 15 Dec, 2013 [facility] [place] [facility] [address] [id number] [place] [address] 12 Dec, 2013 [facility] [place] [facility] [address] [id number] [place] [address] 12 Dec, 2013 [facility] [place] [facility] [address] [id number] [place] [address] 03 Dec, 2013 [facility] [place] [facility] [address] [id number] [place] [address] Dec, [facility] [place] [facility] [address] [id number] [place] [address] Nov, [facility] [place] [facility] [address] [id number] [place] [address] Nov, [facility] [place] [facility] [address] [id number] [place] [address] Nov, [facility] [place] [facility] [address] [id number] [place] [address] Nov, [facility] [place] [facility] [address] [id number] [place] [address] Oct, [facility] [place] [facility] [address] [id number] [place] [address] Oct, [facility] [place] [facility] [address] [id number] [place] [address] Oct, [facility] [place] [facility] [address] [id number] [place] [address] Oct, [facility] [place] [facility] [address] [id number] [place] [address] Sep, [facility] [place] [facility] [address] [id number] [place] [address] Sep, [facility] [place] [facility] [address] [id number] [place] [address] Sep, [facility] [place] [facility] [address] [id number] [place] [address] Sep, [facility] [place] [facility] [address] [id number] [place] [address] Sep, [facility] [place] [facility] [address] [id number] [place] [address] Sep, [facility] [place] [facility] [address] [id number] [place] [address] Sep, [facility] [place] [facility] [address] [id number] [place] [address] Sep, [facility] [address] [id number] [place] [address] August, [facility] [place] [facility] [address] [id number] [place] [address] August, [facility] [address] [id number] [place] [address] Jul, [facility] [place] [facility] [address] [id number] [place] [address] Jul, [facility] [address] [id number] [place] [address] Jul, [facility] [place] [facility] [address] [id number] [place] [address] Jul, [facility] [address] [id number] [place] [address] Jul, [facility] [address] [id number] [place] [address] Jul, [facility] [place] [facility] [address] [id number] [place] [address] 6568 Jul, [facility] [address] [id number] [place] [address] Jul, [facility] [place] [facility] [address] [id number] [place] [address] 7085 Jul, [facility] [place] [facility] [address] [id number] [place] [address]- [address]26 Jul, [facility] [place] [facility] [address] [id number] [place] [address]- [address] Jun, [facility] [place] [facility] [address] [id number] [place] [address] Jun, [facility] [place] [facility] [address] [id number] [place] [address] 94[address] Jun, [facility] [place] [facility] [address] [id number] [place] [address] 18 Jun, 2013 [facility] [place] [facility] [address] [id number] [place] [address]- [address]70 17 Jun, 2013 [facility] [place] [facility] [address] [id number] [place] [address]- [address] 17 Jun, 2013 [facility] [place] [facility] [address] [id number] [place] [address] 17 Jun, 2013 [facility] [place] [facility] [address] [id number] [place] [address]84 17 Jun, 2013 [facility] [place] [facility] [address] [id number] [place] [address]- [address]484 14 Jun, 2013 [facility] [place] [facility] [address] [id number] [place] [address]- [address] 14 Jun, 2013 [facility] [place] [facility] [address] [id number] [place] [address]- [address] 07 Jun, 2013 [facility] [place] [facility] [address] [id number] [place] [address]- 47[address] Jun, [facility] [place] [facility] [address] [id number] [place] [address] 9280 Jun, [facility] [place] [facility] [address] [id number] [place] [address]- [address]10 Jun, [facility] [place] [facility] [address] [id number] [place] [address]- 0414 Jun, [facility] [place] [facility] [address] [id number] [place] [address] Jun, [facility] [place] [facility] [address] [id number] [place] [address] May, [facility] [place] [facility] [address] [id number] [place] [address] May, [facility] [place] [facility] [address] [id number] [place] [address] May, [facility] [address] [id number] [place] [address] 37[address] May, [facility] [place] [facility] [address] [id number] [place] [address] Mar, [facility] [place] [facility] [address] [id number] [place] [address]- [address]247 Mar, [facility] [place] [facility] [address] [id number] [place] [address] 3216 Mar, [facility] [place] [facility] [address] [id number] [place] [address] 9661 Mar, [facility] [place] [facility] [address] [id number] [place] [address]- 78[address] Mar, [facility] [place] [facility] [address] [id number] [place] [address] Mar, [facility] [place] [facility] [address] [id number] [place] [address]- 9518 Mar, [facility] [place] [facility] [address] [id number] [place] [address]- [address] Mar, [facility] [place] [facility] [address] [facility] [id number] [place] [address]- [address] Jan, [facility] [place] [facility] [address] [id number] [place] [address]- 46[address] Jan, [facility] [place] [facility] [address] [id number], [place] [address] Jan, [facility] [place] [facility] [address] [id number] [place] [address]- 1177 Jan, [facility] [place] [facility] [address] [id number] [place] [address]- 2936 Jan, [facility] [place] [facility] [address] [id number], [place] [address]- [address] Jan, [facility] [place] [facility] [address] [id number] [place] [address]- 2179 Jan, [facility] [place] [facility] [address] [id number] [place] [address]- 4244 Dec, [facility] [place] [facility] [address] [id number] [place] [address] 2660 Nov, [facility] [place] [facility] [address] [id number] [place] [address]- 7249 Oct, [facility] [place] [facility] [address] [id number] [place] [address]- 4082 Oct, [facility] [place] [facility] [address] [id number] [place] [address]487 Sep, [facility] [place] [facility] [address] [id number] [place] [address]- 2523 Sep, [facility] [place] [facility] [address] [id number] [place] [address]- 6700 Sep, [facility] [place] [facility] [address] [id number] [place] [address]- 7880 August, [facility] [place] [facility] [address] [id number] [place] [address]- 2449 Jun, [facility] [place] [facility] [address] [id number] [place] [address]- 4362 Jun, [facility] [place] [facility] [address] [id number], [place] [address]- [address]387 Jun, [facility] [place] [facility] [address] [id number] [place] [address]- 6648 Jun, [facility] [place] [facility] [address] [id number] [place] [address]- 0204 Jun, [facility] [place] [facility] [address] [id number] [place] [address] Jun, [facility] [place] [facility] [address] [id number], [place] [address]- [address]17 07 Jun, 2012 [facility] [address] [id number] [place] [address]- 1777 May, [facility] [address] [id number] [place] [address]- 3903 May, [facility] [address] [facility] [id number] [place] [address]- 1730 May, [facility] [address] [id number] [place] [address]- 8942 May, [facility] [address] [id number] [place] [address]- 6213 May, [facility] [address] [id number] [place] [address]- 9273 May, [facility] [address] [facility] [id number], [place] [address]- 9426 May, [facility] [address] [id number] [place] [address]- 7043 Mar, [facility] [address] [id number] [place] [address]- 0854 Mar, [facility] [address] [facility] [id number] [place] [address]- 0300 Mar, [facility] [address] [facility] [id number], [place] [address]- 1865 Mar, [facility] [address] [id number], [place] [address]- 9973 Mar, [facility] [address] [id number], [place] [address]- 1330 Mar, [facility] [address] [facility] [id number], [place] [address]- 9703 Mar, [facility] [address] [facility] [id number], [place] [address]- 3701 Mar, [facility] [place] [facility] [address] [id number] [place] [address]- 2835 Mar, [facility] [place] [facility] [address] [id number] [place] [address]- 6543 Mar, [facility] [place] [facility] [address] [id number] [place] [address]- 0030 Mar, [facility] [place] [facility] [address] [id number] [place] [address]- 7612 Mar, [facility] [place] [facility] [address] [id number] [place] [address]- 3426 Mar, [facility] [place] [facility] [address] [id number] [place] [address]- 6786 Mar, [facility] [place] [facility] [address] [id number] [place] [address]- 7951 Mar, [facility] [place] [facility] [address] [id number] [place] [address]- 3070 Mar, [facility] [place] [facility] [address] [id number] [place] [address]- 0430 Mar, [facility] [place] [facility] [address] [id number] [place] [address]- 6785 Mar, [facility] [place] [facility] [address] [id number] [place] [address]- 8319 Mar, [facility] [place] [facility] [address] [id number] [place] [address]- 5804 Jan, [facility] [place] [facility] [address] [id number] [place] [address]- 9365 Jan, [facility] [place] [facility] [address] [id number] [place] [address]- 1453 Jan, [facility] [place] [facility] [address] [id number] [place] [address]- 0269 Jan, [facility] [place] [facility] [address] [id number] [place] [address]- [address] Dec, [facility] [address] [id number], [place] [address] Dec, [facility] [id number], [place] [address] 4739 Dec, [facility] [id number] [address] 4841 Nov, [facility] [id number] [place] [address] 023621- 8874 Nov, [facility] [id number] [place] [address]- 8198 Oct, [facility] [id number] [place] [address]- 8432 Oct, [facility] [id number] [place] [address]- 7113 Oct, [facility] [id number] [address] 7424 Oct, [facility] [id number], [place] [address]- [address]60 Oct, [facility] [id number], [place] [address]- 6162 Oct, IMMUNIZATIONS No Known Immunizations SOCIAL HISTORY Never Assessed REASON FOR VISIT requesting return call PLAN OF CARE VITAL SIGNS [...]
--- OUTSIDE RECORDS SUMMARY | 2018-05-15 06:13 | XMS REPORT ---
Author Author RAY NEVAREZ [facility] Address [address] [place] [address] Care Team Providers Care R And D Lab Technician Name Role Phone RAY NEVAREZ Unavailable PROBLEMS Type Condition ICD9-CM Code [id number] Code Onset Dates Condition Status SNOMED Code Problem Major depressive disorder, single episode, unspecified F32.9 Active 32332044 Problem Schizoaffective disorder, bipolar type F25.0 Active 28975936 Problem Neuropathy G62.9 Active 970610994 Problem COPD suggested by initial evaluation J44.9 Active 52347517 Problem Body mass index (BMI) of 45.0-49.9 in adult Z68.42 Active 265992069 Problem Post-menopausal bleeding N95.0 Active 86981603 Problem 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 Active 805354624 Problem Morbid (severe) obesity due to excess calories E66.01 Active 372531340 Problem Primary osteoarthritis of left knee M17.12 Active 490515110 Problem Obstructive sleep apnea G47.33 Active 41693982 Problem Bipolar 1 disorder F31.9 Active 188378984 Problem Edema R60.9 Active 666683749 Problem Depression F32.9 Active 14704149 Problem Obesity E66.9 Active 448247423 Problem GERD (gastroesophageal reflux disease) K21.9 Active 635943685 Problem Environmental allergies Z91.09 Active 995666893 ALLERGIES No Information ENCOUNTERS Encounter Location Date Diagnosis [facility] [address] [facility] [id number] [address] Jan, [facility] [id number] [place] [address] 40279- 2645 05 Dec, 2017 [facility] [address] [address] Nov, Obstructive sleep apnea G47.33 and COPD suggested by initial evaluation J44.9 [facility] [address], [place] [address] Nov, COPD (chronic obstructive pulmonary disease) J44.9 [facility] [address] [id number] [address] 9[address] Nov, [facility] [address] [id number] [address] 1871 Oct, [facility] [id number] [place] [address] 40489- 3846 Oct, [facility] [id number] [place] [address] 71986- 6533 Oct, 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 [facility] [id number] [place] [address] 97343- 6720 Oct, Schizoaffective disorder, bipolar type F25.0 ; 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 and Other shelter (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 Z79.899 [facility] [address] [id number] [address] Oct, Prediabetes R73.03 ; COPD suggested by initial evaluation J44.9 ; BMI 45.0-49.9, adult Z68.42 and Obstructive sleep apnea G47.33 [facility] [address] [address] 39[address] Sep, [facility] [address] [id number] [address] 6947 August, Neuropathy G62.9 [facility] [address], [place] [address] 7562 August, [facility] [address] [id number] [address] 1771 August, [facility] [address], [place] [address] 7737 Jul, [facility] [id number] [place] [address] 87862- 1534 Jul, Primary osteoarthritis of left knee M17.12 [place] [address] 03454- 7761 Jul, Schizoaffective disorder, bipolar type F25.0 and 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 [place] [address] 93171- 8196 Jul, Prediabetes R73.03 ; Primary osteoarthritis of left knee M17.12 ; GERD (gastroesophageal reflux disease) K21.9 ; Bipolar 1 disorder F31.9 ; Depression F32.9 ; Environmental allergies Z91.09 ; Neuropathy G62.9 ; Edema R60.9 ; Body mass index (BMI) of 45.0-49.9 in adult Z68.42 and Morbid ( severe) obesity due to excess calories E66.01 [place] [address] 91388- 2312 Jul, [place] [address] 33374- 4396 Jun, [place] [address] 11632- 0991 Jun, [place] [id number] [place] [address] 32513- 3326 Jun, Wound of right breast, initial encounter S21.001A and Prediabetes R73.03 [place] [id number] [place] [address] 96391- 7679 Jun, [place] [id number] [place] [address] 02098- 6930 May, GERD (gastroesophageal reflux disease) K21.9 [place] [id number] [place] [address] 18055- 9009 May, Primary osteoarthritis of left knee M17.12 [place] [id number] [place] [address] 63515- 1396 May, Schizoaffective disorder, bipolar type F25.0 and 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 [place] [id number] [place] [address] 52388- 4135 May, Left medial knee pain M25.562 ; GERD (gastroesophageal reflux disease) K21.9 ; Depression F32.9 ; Neuropathy G62.9 ; Obesity E66.9 ; Prediabetes R73.03 and Edema R60.9 [place] [id number] [place] [address] 56977- 0837 14 Mar, 2017 [place] [address] 50453- 5746 Mar, [place] [address] 84781- 4958 05 Mar, 2017 Post-menopausal bleeding N95.0 and BMI 50.0-59.9, adult Z68.43 [place] [address] 33415- 2664 Mar, [place] [id number] [place] [address] 08923- 1323 Mar, Schizoaffective disorder, bipolar type F25.0 and 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 [place] [id number] [place] [address] 61018- 5517 27 Mar, 2017 [place] [id number] [place] [address] 82989- 8731 16 Mar, 2017 [place] [id number] [place] [address] 22029- 5072 10 Mar, 2017 Post-menopausal bleeding N95.0 ; Screening breast examination Z12.31 ; Screen for STD (sexually transmitted disease) Z11.3 ; Obesity E66.9 ; Family history of ovarian cancer Z80.41 and Family history of cervical cancer Z80.49 [place] [id number] [place] [address] 04456- 4348 03 Mar, 2017 [place] [address] [id number] [address] 9699 Mar, [facility] [id number] [place] [address] 27722- 9453 Jan, Schizoaffective disorder, bipolar type F25.0 and 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 [facility] [id number] [place] [address] 81399- 7595 Jan, Schizoaffective disorder, bipolar type F25.0 [facility] [id number] [place] [address] 07805- 3572 Jan, [facility] [id number] [place] [address] 33647- 5201 Jan, Prediabetes R73.03 and Obesity E66.9 [facility] [id number] [place] [address] 29139- 5345 Jan, Encounter for immunization Z23 [facility] [id number] [place] [address] 13291- 2073 Jan, [facility] [id number] [place] [address] 92807- 9146 Dec, [facility] [id number] [place] [address] 68151- 5791 Dec, [facility] [id number] [place] [address] 10472- 7364 Nov, Neuropathy G62.9 [facility] [address] [id number] [address]- 6462 Nov, [facility] [id number] [place] [address] 86482- 0987 Nov, Schizoaffective disorder, bipolar type F25.0 [facility] [address], [place] [address]- 6826 Nov, Other shelter (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 Z79.899 and Schizoaffective disorder, bipolar type F25.0 [facility] [id number] [place] [address] 13479- 0022 Oct, Schizoaffective disorder, bipolar type F25.0 ; 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 and 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 [facility] [id number] [place] [address] [id number] Oct, Dental caries K02.9 [facility] [id number] [place] [address] 34930- 9300 Sep, Neuropathy G62.9 [facility] [id number] [place] [address] 65042- 2505 Sep, [facility] [id number] [place] [address] 31304- 9277 Sep, Neuropathy G62.9 [facility] [id number] [place] [address] 73700- 8918 Jul, Schizoaffective disorder, depressive type F25.1 [facility] [id number] [place] [address] 79604- 9637 Jul, GERD (gastroesophageal reflux disease) K21.9 ; Joint pain of lower extremity M25.50 ; Environmental allergies Z91.09 ; Stress incontinence of urine N39.3 ; Neuropathy G62.9 ; Edema R60.9 and Acute pain of left knee M25.562 [facility] [id number] [place] [address] 05859- 8908 Jun, [facility] [id number] [place] [address] [id number] Jun, Dental examination Z01.20 [facility] [id number] [place] [address] 72151- 3652 02 Jun, 2016 [facility] [id number] [place] [address] 63167- 9273 May, [facility] [id number] [place] [address] 67326- 9513 May, Bipolar 1 disorder F31.9 ; Joint pain of lower extremity M25.50 ; Environmental allergies Z91.09 ; Stress incontinence of urine N39.3 ; Major depressive disorder, single episode, unspecified F32.9 ; Dizzy R42 ; Schizoaffective disorder, unspecified F25.9 ; Neuropathy G62.9 ; Localized edema R60.0 and GERD (gastroesophageal reflux disease) K21.9 [place] [address] 61737- 5769 May, Schizoaffective disorder, depressive type F25.[address] 30188- 3792 May, Environmental allergies Z91.09 and Major depressive disorder , single episode, unspecified F32.9 [place] [address] 26963- 7428 Mar, Dental caries K02.9 [place] [address] 08750- 0852 Mar, Dental caries on smooth surface penetrating into pulp K02.63 [facility] [place] [address] 88537 -9158 Mar, Peripheral edema R60.9 and Dry skin L85.[address] 59587- 7530 Mar, [place] [address] 91827- 4319 Mar, Major depressive disorder, single episode, unspecified F32.9 [place] [address] 80401- 7981 Mar, Dental caries K02.9 [place] [id number] [place] [address] 51187- 3317 Mar, Diabetes mellitus with complication E11.8 ; Urinary frequency R35.0 ; Stress incontinence of urine N39.3 ; Joint pain of lower extremity M25.50 ; Obesity E66.9 ; Environmental allergies Z91.09 ; Depression F32.9 ; Schizoaffective disorder, unspecified F25.9 ; Vaginal discharge N89.8 and Vaginal candidiasis B37.3 [place] [id number] [place] [address] 84592- 1861 Jan, Schizoaffective disorder, unspecified F25.9 [place] [address] 27129- 0312 Jan, [place] [address] 60027- 7482 30 Dec, 2015 [place] [address] 63446- 0026 19 Dec, 2015 Dental caries K02.9 [place] [address] 40669- 9500 14 Dec, 2015 Obesity E66.9 ; Edema R60.9 ; Depression F32.9 ; Bipolar 1 disorder F31.9 ; 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 ; Environmental allergies Z91.09 ; Shortness of breath R06.02 ; Gastroesophageal reflux disease with esophagitis K21.0 ; Other chronic pain G89.29 ; Pain in right knee M25.561 ; Pain in left knee M25.562 and Encounter for immunization Z23 [place] [id number] [place] [address] 13616- 8362 Nov, Dental caries K02.9 [place] [address] 79594- 6775 Oct, Schizoaffective disorder, unspecified F25.9 [place] [address] 47402- 1726 Oct, Dental examination Z01.20 [place] [address] 84540- 8201 Sep, Dental examination Z01.20 and Dental caries K02.9 [facility] [address], [place] [address]- 6861 13 Sep, 2015 [facility] [id number] [place] [address] 62608- 2396 Sep, [facility] [id number] [place] [address] 24268- 2989 07 Sep, 2015 [facility] [id number] [place] [address] 32745- 8161 Sep, Schizoaffective disorder, unspecified F25.9 [facility] [id number] [place] [address] 74290- 8970 August, Bipolar disorder, unspecified F31.9 [facility] [id number] [place] [address] 22905- 4535 Jul, Edema R60.9 and Obesity E66.9 [facility] [id number] [place] [address] 28408- 9732 Jul, Edema R60.9 [facility] [id number] [place] [address] 88347- 8484 Jul, Edema R60.9 [facility] [id number] [place] [address] 59264 -8462 Jul, Edema R60.9 [facility] [id number] [place] [address] 47995- 3911 Jul, [facility] [id number] [place] [address] 01051- 8754 Jul, [facility] [id number] [place] [address] 33253- 5942 24 Jun, 2015 Environmental allergies V15.09 and Cough R05 [facility] [id number] [place] [address] 05835- 9949 17 Jun, 2015 Environmental allergies V15.09 ; Edema R60.9 and Cough R05 [facility] [id number] [place] [address] 08633 -1181 12 Jun, 2015 Bronchospasm J98.01 [facility] [address] 53244- 4139 10 Jun, 2015 [place] [id number] [place] [address] 37396- 3515 09 Jun, 2015 [place] [address] 44040- 6158 08 Jun, 2015 Environmental allergies V15.09 ; Bipolar 1 disorder F31.9 ; GERD (gastroesophageal reflux disease) K21.9 ; Depression F32.9 ; Joint pain of lower extremity M25.50 ; COPD (chronic obstructive pulmonary disease) J44.9 and Screening for diabetes mellitus Z13.1 [place] [id number] [place] [address] 91597- 8845 16 Jun, 2015 [place] [address] 96131- 1583 May, [place] [id number] [place] [address] 28109- 1663 14 May, 2015 Schizoaffective disorder, unspecified F25.9 and Bipolar 1 disorder F31.9 [place] [id number] [place] [address] 41119- 6590 May, [place] [id number] [place] [address] 22930- 2103 May, URI (upper respiratory infection) J06.9 ; Environmental allergies V15.09 and Cough R05 [place] [id number] [place] [address] 47846- 9275 18 Mar, 2015 [place] [id number] [place] [address] 29819- 5927 15 Mar, 2015 Vaginal discharge N89.8 [place] [id number] [place] [address] 74895- 4352 14 Mar, 2015 Schizoaffective disorder, unspecified F25.9 ; Major depressive disorder, single episode, unspecified F32.9 and Bipolar 1 disorder F31.9 [place] [address] 91761- 6411 Mar, [place] [address] 37541- 9363 Mar, Bipolar 1 disorder F31.9 [place] [address] 92034- 1196 Jan, [place] [address] 58607- 8751 Jan, Allergic rhinitis J30.9 and Cough R05 [address] 99408- 5805 Jan, 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 ; Bipolar 1 disorder F31.9 ; GERD ( gastroesophageal reflux disease) K21.9 ; Depression F32.9 and Joint pain of lower extremity M25.50 [place] [address] 02168- 5511 Dec, Encounter for immunization Z23 [address] 40670- 1107 Dec, Schizoaffective disorder, unspecified 295.70 ; Pain in joint , lower leg 719.46 ; Esophageal reflux 530.81 ; Bipolar 1 disorder 296.7 ; Depression 311 ; GERD (gastroesophageal reflux disease) 530.81 and Environmental allergies V15.09 [facility] [id number] [place] [address] [id number] Nov, Dental examination V72.2 [place] [address] 30571- 8351 Nov, Acute bronchitis 466.0 [place] [address] 40129- 9045 Nov, Schizoaffective disorder, unspecified 295.70 and Bipolar disorder, unspecified 296.80 [facility] [address] [id number] Sep, Dental examination V72.2 [facility] [id number] [place] [address] [id number] August, Dental examination V72.2 [facility] [id number] [place] [address] 71940 2546 August, Schizoaffective disorder, unspecified 295.70 [facility] [id number] [place] [address] 57863 2546 August, [facility] [id number] [place] [address] 50245 2546 August, Vomiting 787.03 [facility] [id number] [place] [address] 92653 2546 August, Vomiting and diarrhea 787.03 and High risk medication use V58.69 [facility] [id number] [place] [address] 39802- 4606 Jul, [facility] [id number] [place] [address] 49324- 8314 Jul, [facility] [id number] [place] [address] 75035- 9756 Jul, [facility] [address] [address]- 0706 Jun, [facility] [id number] [place] [address] 20951- 0416 Jun, [facility] [id number] [place] [address] 57556 2546 Jun, [facility] [id number] [place] [address] 37469- 6926 Jun, [facility] [id number] [place] [address] 27571- 2546 Jun, [facility] [id number] [place] [address] 44051- 0078 Jun, 2014 [facility] [place] [facility] [address] [id number] [place] [address]- 4034 Jun, 2014 [facility] [place] [facility] [address] [id number] [place] [address]- 0076 Jun, 2014 [facility] [place] [facility] [address] [facility] [id number] [place] [address]- 7306 Jun, [facility] [place] [facility] [address] [facility] [id number] [place] [address]- 4983 Mar, [facility] [place] [facility] [address] [id number] [place] [address]- 2551 Mar, [facility] [place] [facility] [address] [facility] [id number] [place] [address]- 8553 Mar, [facility] [place] [facility] [address] [facility] [id number] [place] [address]- 0013 Mar, [facility] [place] [facility] [address] [facility] [id number] [place] [address]- 0215 Mar, [facility] [place] [facility] [address] [facility] [id number] [place] [address]- 2110 Mar, [facility] [place] [facility] [address] [facility] [id number] [place] [address]- 8388 Mar, [facility] [place] [facility] [address] [facility] [id number] [place] [address]- 2382 Mar, [facility] [place] [facility] [address] [facility] [id number] [place] [address]- 5305 Mar, [facility] [place] [facility] [address] [id number] [place] [address]- 7606 Mar, [facility] [place] [facility] [address] [facility] [id number] [place] 1373 Jan, [facility] [place] [facility] [address] [facility] [id number] [place] 7281 Jan, [facility] [place] [facility] [address] [id number] [place] [address]- 9603 Jan, [facility] [place] [facility] [address] [id number] [place] [address]- 7128 Jan, [facility] [place] [facility] [address] [id number] [place] [address]- 1668 Jan, [facility] [place] [facility] [address] [id number] [place] [address]- 2345 Jan, [facility] [place] [facility] [address] [id number] [place] [address]- 4704 Jan, [facility] [place] [facility] [address] [id number] [place] [address]- 1429 Jan, [facility] [place] [facility] [address] [id number] [place] [address]- 5279 19 Dec, 2013 [facility] [place] [facility] [address] [id number] [place] [address]- 8133 19 Dec, 2013 [facility] [place] [facility] [address] [id number] [place] [address]- 0848 15 Dec, 2013 [facility] [place] [facility] [address] [id number] [place] [address] 15 Dec, 2013 [facility] [place] [facility] [address] [id number] [place] [address] 15 Dec, 2013 [facility] [place] [facility] [address] [id number] [place] [address] 15 Dec, 2013 [facility] [place] [facility] [address] [id number] [place] [address] 12 Dec, 2013 [facility] [place] [facility] [address] [id number] [place] [address] 12 Dec, 2013 [facility] [place] [facility] [address] [id number] [place] [address] 03 Dec, 2013 [facility] [place] [facility] [address] [id number] [place] [address] Dec, [facility] [place] [facility] [address] [id number] [place] [address] Nov, [facility] [place] [facility] [address] [id number] [place] [address] Nov, [facility] [place] [facility] [address] [id number] [place] [address] Nov, [facility] [place] [facility] [address] [id number] [place] [address] Nov, [facility] [place] [facility] [address] [id number] [place] [address] Oct, [facility] [place] [facility] [address] [id number] [place] [address] Oct, [facility] [place] [facility] [address] [id number] [place] [address] Oct, [facility] [place] [facility] [address] [id number] [place] [address] Oct, [facility] [place] [facility] [address] [id number] [place] [address] Sep, [facility] [place] [facility] [address] [id number] [place] [address] Sep, [facility] [place] [facility] [address] [id number] [place] [address] Sep, [facility] [place] [facility] [address] [id number] [place] [address] Sep, [facility] [place] [facility] [address] [id number] [place] [address] Sep, [facility] [place] [facility] [address] [id number] [place] [address] Sep, [facility] [place] [facility] [address] [id number] [place] [address] Sep, [facility] [facility] [address] [id number] [place] [address] Sep, [facility] [address] [id number] [place] [address] August, [facility] [place] [facility] [address] [id number] [place] [address] August, [facility] [address] [id number] [place] [address] Jul, [facility] [place] [facility] [address] [id number] [place] [address] Jul, [facility] [address] [id number] [place] [address] Jul, [facility] [place] [facility] [address] [id number] [place] [address] Jul, [facility] [address] [id number] [place] [address] Jul, [facility] [address] [id number] [place] [address] Jul, [facility] [place] [facility] [address] [id number] [place] [address] Jul, [facility] [address] [id number] [place] [address] Jul, [facility] [facility] [address] [id number] [place] [address] Jul, [facility] [facility] [address] [id number] [place] [address] Jul, [facility] [place] [facility] [address] [id number] [place] [address] Jun, [facility] [place] [facility] [address] [id number] [place] [address] Jun, [facility] [place] [facility] [address] [id number] [place] [address] Jun, [facility] [place] [facility] [address] [id number] [place] [address] 18 Jun, 2013 [facility] [place] [facility] [address] [id number] [place] [address] 17 Jun, 2013 [facility] [place] [facility] [address] [id number] [place] [address] 17 Jun, 2013 [facility] [place] [facility] [address] [id number] [place] [address]- 2657 17 Jun, 2013 [facility] [place] [facility] [address] [id number] [place] [address]- [address] 17 Jun, 2013 [facility] [address] [id number] [place] [address]- [address]67 14 Jun, 2013 [facility] [place] [facility] [address] [id number] [place] [address]101 14 Jun, 2013 [facility] [place] [facility] [address] [id number] [place] [address] 07 Jun, 2013 [facility] [place] [facility] [address] [id number] [place] [address] Jun, [facility] [place] [facility] [address] [id number] [place] [address] 8765 Jun, [facility] [place] [facility] [address] [id number] [place] [address] Jun, [facility] [place] [address] [id number] [place] [address]- 12[address] Jun, [facility] [place] [facility] [address] [id number] [place] [address] Jun, [facility] [place] [address] [id number] [place] [address]- [address]46 May, [facility] [place] [facility] [address] [id number] [place] [address] 9680 May, [facility] [address] [id number] [place] [address]151 May, [facility] [address] [id number] [place] [address]- [address]604 May, [facility] [address] [id number] [place] [address] Mar, [facility] [address] [id number] [place] [address] 69[address] Mar, [facility] [place] [facility] [address] [id number] [place] [address]32 Mar, [facility] [place] [facility] [address] [id number] [place] [address] 40[address] Mar, [facility] [place] [facility] [address] [id number] [place] [address] Mar, [facility] [place] [facility] [address] [id number] [place] [address] Mar, [facility] [facility] [address] [id number] [place] [address] 3315 Mar, [facility] [address] [id number] [place] [address] Mar, [facility] [address] [facility] [id number] [place] [address] Jan, [facility] [address] [id number] [place] [address]- 4[address] Jan, [facility] [address] [id number], [place] [address] Jan, [facility] [address] [id number] [place] [address] Jan, [facility] [address] [id number] [place] [address]- 8535 Jan, [facility] [address] [id number], [place] [address] Jan, [facility] [address] [id number] [place] [address] Jan, [facility] [address] [id number] [place] [address] Dec, [facility] [address] [id number] [place] [address]- 2079 Nov, [facility] [address] [id number] [place] [address]- 4045 Oct, [facility] [address] [id number] [place] [address]- 3224 Oct, [facility] [address] [id number] [place] [address]- [address]306 Sep, [facility] [facility] [address] [id number] [place] [address]- 1232 Sep, [facility] [address] [id number] [place] [address]- 4379 Sep, [facility] [address] [id number] [place] [address]- [address]287 August, [facility] [place] [facility] [address] [id number] [place] [address]- 7660 Jun, [facility] [address] [id number] [place] [address]- 3384 Jun, [facility] [address] [id number], [place] [address]- 1778 Jun, [facility] [address] [id number] [place] [address]- 0680 Jun, [facility] [address] [id number] [place] [address]- 5427 Jun, [facility] [address] [id number] [place] [address] Jun, [facility] [address] [id number], [place] [address] 07 Jun, 2012 [facility] [address] [id number] [place] [address]008 May, [facility] [address] [id number] [place] [address]- 6441 May, [facility] [address] [facility] [id number] [place] [address]- 7643 May, [facility] [address] [id number] [place] [address]- 1660 May, [facility] [address] [id number] [place] [address]- 5108 May, [facility] [address] [id number] [place] [address]- 9729 May, [facility] [address] [facility] [id number], [place] [address]- [address] May, [facility] [address] [id number] [place] [address]- 2262 Mar, [facility] [address] [id number] [place] [address]- 3598 Mar, [facility] [address] [facility] [id number] [place] [address]- 0169 Mar, [facility] [address] [facility] [id number], [place] [address]- 9114 Mar, [facility] [address] [id number], [place] [address]- 8554 Mar, [facility] [address] [id number], [place] [address]- 5295 Mar, [facility] [address] [facility] [id number], [place] [address]- 5860 Mar, [facility] [address] [facility] [id number], [place] [address]- 5[address] Mar, [facility] [address] [id number] [place] [address]- 4635 Mar, [facility] [address] [id number] [place] [address]- 6595 Mar, [facility] [address] [id number] [place] [address]- 7583 Mar, [facility] [address] [id number] [place] [address]- 3693 Mar, [facility] [address] [id number] [place] [address]- 4990 Mar, [facility] [address] [id number] [place] [address]- 9636 Mar, [facility] [address] [id number] [place] [address]- 5737 Mar, [facility] [address] [id number] [place] [address]- 9186 Mar, [facility] [address] [id number] [place] [address]- 5136 Mar, [facility] [address] [id number] [place] [address]- 1688 Mar, [facility] [address] [id number] [place] [address]- 8373 Mar, [facility] [facility] [address] [id number] [place] [address]- 2026 Jan, [facility] [facility] [address] [id number] [place] [address]- 6556 Jan, [facility] [address] [id number] [place] [address]- 4741 Jan, [facility] [facility] [address] [id number] [place] [address]- 3222 Jan, [facility] [facility] [address] [id number] [place] [address] 9547 Dec, [facility] [address] [id number], [place] [address] Dec, [facility] [id number], [place] [address]- 5866 Dec, [facility] [id number], [place] [address]- 0450 Nov, [facility] [id number], [place] [address]- 1804 Nov, [facility] [id number], [place] [address]- 5519 Oct, [facility] [id number] [place] [address]- 9159 Oct, [facility] [id number], [place] [address]- 4367 Oct, [facility] [id number], [place] [address]- 8594 Oct, [facility] [id number], [place] [address]- 7819 Oct, [facility] [id number], [place] [address]- 2969 Oct, IMMUNIZATIONS No Known Immunizations SOCIAL HISTORY Never Assessed REASON FOR VISIT Refill request PLAN OF CARE VITAL SIGNS MEDICATIONS Medication Instructions Dosage Frequency Start Date End Date Duration Status Meloxicam 7.5 MG Orally 2 times a day 1 tablet 12h 90 days Active Hydrochlorothiazide 50 mg Orally Once a day 1 tablet 24h 90 days Active RESULTS No Results PROCEDURES No Known [...]
--- OUTSIDE RECORDS SUMMARY | 2018-05-15 06:15 | XMS REPORT ---
Author Author RAY NEVAREZ [facility] Address [address] [place] [address] Care Team Providers Care Dive Superintendent Name Role Phone RAY NEVAREZ Unavailable PROBLEMS Type Condition ICD9-CM Code XTM65-DX Code Onset Dates Condition Status SNOMED Code Problem Major depressive disorder, single episode, unspecified F32.9 Active 83805117 Problem Schizoaffective disorder, bipolar type F25.0 Active 52788235 Problem Neuropathy G62.9 Active 042558895 Problem COPD suggested by initial evaluation J44.9 Active 09486002 Problem Body mass index (BMI) of 45.0-49.9 in adult Z68.42 Active 556948014 Problem Post-menopausal bleeding N95.0 Active 14124412 Problem 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 Active 921932436 Problem Morbid (severe) obesity due to excess calories E66.01 Active 496396924 Problem Primary osteoarthritis of left knee M17.12 Active 188949190 Problem Obstructive sleep apnea G47.33 Active 87075940 Problem Bipolar 1 disorder F31.9 Active 572446781 Problem Edema R60.9 Active 265604902 Problem Depression F32.9 Active 33031531 Problem Obesity E66.9 Active 370838272 Problem GERD (gastroesophageal reflux disease) K21.9 Active 694636588 Problem Environmental allergies Z91.09 Active 531529209 ALLERGIES Substance Reaction Event Type Date Status Sulfamethoxazole-Trimethoprim Unknown Drug Allergy Oct, Active Penicillin V Potassium rash Drug Allergy Oct, Active ENCOUNTERS Encounter Location Date Diagnosis [facility] [address] [facility] [id number] [address] Jan, [facility] [address] [id number], [place] [address] Dec, [facility] [address] [facility] [id number], [place] [address] Nov, Obstructive sleep apnea G47.33 and COPD suggested by initial evaluation J44.9 [facility] [address] [place] [address] 70938- 7893 Nov, COPD (chronic obstructive pulmonary disease) J44.9 [facility] [id number] [place] [address] 36442- 8160 Nov, [facility] [id number] [place] [address] 29512- 4553 Oct, [facility] [id number] [place] [address] 58269- 8725 Oct, [facility] [id number] [place] [address] 84480- 7979 Oct, Other mcfp (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 Z79.899 [place] [id number] [place] [address] 43894- 9669 Oct, Schizoaffective disorder, bipolar type F25.0 ; 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 and 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 [facility] [id number] [place] [address] 70831- 5617 Oct, Prediabetes R73.03 ; COPD suggested by initial evaluation J44.9 ; BMI 45.0-49.9, adult Z68.42 and Obstructive sleep apnea G47.33 [facility] [id number] [place] [address] 47264- 5356 Sep, [facility] [id number] [place] [address] 89985- 7776 August, Neuropathy G62.9 [facility] [id number] [place] [address] 93959- 5215 August, [facility] [id number] [place] [address] 09604- 0209 August, [facility] [id number] [place] [address] 46576- 0609 Jul, [facility] [address], [place] [address] 7608 Jul, Primary osteoarthritis of left knee M17.12 [facility] [id number] [place] [address] 56071- 5368 Jul, Schizoaffective disorder, bipolar type F25.0 and 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 [place] [id number] [place] [address] 91476- 0931 Jul, Prediabetes R73.03 ; Primary osteoarthritis of left knee M17.12 ; GERD (gastroesophageal reflux disease) K21.9 ; Bipolar 1 disorder F31.9 ; Depression F32.9 ; Environmental allergies Z91.09 ; Neuropathy G62.9 ; Edema R60.9 ; Body mass index (BMI) of 45.0-49.9 in adult Z68.42 and Morbid ( severe) obesity due to excess calories E66.01 [place] [id number] [place] [address] 89147- 0379 Jul, [place] [id number] [place] [address] 71075- 7169 Jun, [place] [id number] [place] [address] 36278- 3578 Jun, [place] [id number] [place] [address] 03053- 7888 Jun, Wound of right breast, initial encounter S21.001A and Prediabetes R73.03 [facility] [address] [place] [address] 65778- 8558 Jun, [place] [id number] [place] [address] 97251- 0698 May, GERD (gastroesophageal reflux disease) K21.9 [facility] [address] [place] [address] 02580- 1293 May, Primary osteoarthritis of left knee M17.12 [place] [address] [place] [address] 09688- 5689 22 May, 2017 Schizoaffective disorder, bipolar type F25.0 and 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 [place] [id number] [place] [address] 92701- 2793 04 May, 2017 Left medial knee pain M25.562 ; GERD (gastroesophageal reflux disease) K21.9 ; Depression F32.9 ; Neuropathy G62.9 ; Obesity E66.9 ; Prediabetes R73.03 and Edema R60.9 [place] [id number] [place] [address] 84424- 0658 14 Mar, 2017 [place] [id number] [place] [address] 09888- 3064 08 Mar, 2017 [id number] [place] [address] 51261- 0191 05 Mar, 2017 Post-menopausal bleeding N95.0 and BMI 50.0-59.9, adult Z68.43 [place] [id number] [place] [address] 16966- 2967 Mar, [place] [id number] [place] [address] 08102- 3717 27 Mar, 2017 Schizoaffective disorder, bipolar type F25.0 and 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 [place] [id number] [place] [address] 88704- 3188 Mar, [place] [id number] [place] [address] 37447- 9840 16 Mar, 2017 [place] [id number] [place] [address] 74935- 8006 10 Mar, 2017 Post-menopausal bleeding N95.0 ; Screening breast examination Z12.31 ; Screen for STD (sexually transmitted disease) Z11.3 ; Obesity E66.9 ; Family history of ovarian cancer Z80.41 and Family history of cervical cancer Z80.49 [id number] [place] [address] 74107- 2169 Mar, [facility] [id number] [place] [address] 63970- 3976 Mar, [facility] [id number] [place] [address] 47852- 9299 Jan, Schizoaffective disorder, bipolar type F25.0 and 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 [facility] [id number] [place] [address] 80091- 9476 Jan, Schizoaffective disorder, bipolar type F25.0 [facility] [id number] [place] [address] 97502- 5305 Jan, [facility] [id number] [place] [address] 66198- 5765 Jan, Prediabetes R73.03 and Obesity E66.9 [facility] [id number] [place] [address] 79130- 3335 Jan, Encounter for immunization Z23 [facility] [id number] [place] [address] 02392- 4097 Jan, [facility] [id number] [place] [address] 50245- 9141 Dec, [facility] [id number] [place] [address] 81753- 7062 Dec, [facility] [id number] [place] [address] 41174- 1379 Nov, Neuropathy G62.9 [facility] [id number] [place] [address] 13105- 2021 Nov, [facility] [id number] [place] [address] 99597- 6668 Nov, Schizoaffective disorder, bipolar type F25.0 [facility] [id number] [place] [address] 49486- 7163 Nov, Other mcfp (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 Z79.899 and Schizoaffective disorder, bipolar type F25.0 [facility] [address] 85165- 8378 Oct, Schizoaffective disorder, bipolar type F25.0 ; Other mcfp (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 Z79.899 and 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 [address] [id number] Oct, Dental caries K02.9 [facility] [address] 53342- 8269 Sep, Neuropathy G62.9 [facility] [address] 11921- 9284 Sep, [place] [address] 28192- 4263 Sep, Neuropathy G62.9 [facility] [id number] [place] [address] 56574- 0660 Jul, Schizoaffective disorder, depressive type F25.1 [place] [address] 25810- 9458 Jul, GERD (gastroesophageal reflux disease) K21.9 ; Joint pain of lower extremity M25.50 ; Environmental allergies Z91.09 ; Stress incontinence of urine N39.3 ; Neuropathy G62.9 ; Edema R60.9 and Acute pain of left knee M25.562 [facility] [id number] [place] [address] 81372- 9869 Jun, [facility] [id number] [place] [address] [phone] Jun, Dental examination Z01.20 [facility] [id number] [place] [address] 49789- 3641 Jun, [facility] [address] 37086- 1615 May, [facility] [id number] [place] [address] 77531- 9653 May, Bipolar 1 disorder F31.9 ; Joint pain of lower extremity M25.50 ; Environmental allergies Z91.09 ; Stress incontinence of urine N39.3 ; Major depressive disorder, single episode, unspecified F32.9 ; Dizzy R42 ; Schizoaffective disorder, unspecified F25.9 ; Neuropathy G62.9 ; Localized edema R60.0 and GERD (gastroesophageal reflux disease) K21.9 [place] [id number] [place] [address] 73715- 9549 May, Schizoaffective disorder, depressive type F25.1 [place] [id number] [place] [address] 84053- 8065 May, Environmental allergies Z91.09 and Major depressive disorder , single episode, unspecified F32.9 [place] [id number] [place] [address] 00219- 8616 Mar, Dental caries K02.9 [place] [id number] [place] [address] 70964- 7163 Mar, Dental caries on smooth surface penetrating into pulp K02.63 [facility] [id number] [place] [address] 19026 -0665 Mar, Peripheral edema R60.9 and Dry skin L85.3 [place] [id number] [place] [address] 73520- 5090 Mar, [facility] [id number] [place] [address] 14728- 6100 Mar, Major depressive disorder, single episode, unspecified F32.9 [place] [id number] [place] [address] 01095- 4271 Mar, Dental caries K02.9 [place] [address] 52711- 1104 Mar, Diabetes mellitus with complication E11.8 ; Urinary frequency R35.0 ; Stress incontinence of urine N39.3 ; Joint pain of lower extremity M25.50 ; Obesity E66.9 ; Environmental allergies Z91.09 ; Depression F32.9 ; Schizoaffective disorder, unspecified F25.9 ; Vaginal discharge N89.8 and Vaginal candidiasis B37.3 [place] [address] 49837- 7028 Jan, Schizoaffective disorder, unspecified F25.9 [place] [address] 44687- 1322 17 Jan, 2016 [place] [address] 71736- 3678 30 Dec, 2015 [place] [address] 03801- 5897 19 Dec, 2015 Dental caries K02.9 [place] [address] 63326- 1099 14 Dec, 2015 Obesity E66.9 ; Edema R60.9 ; Depression F32.9 ; Bipolar 1 disorder F31.9 ; 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 ; Environmental allergies Z91.09 ; Shortness of breath R06.02 ; Gastroesophageal reflux disease with esophagitis K21.0 ; Other chronic pain G89.29 ; Pain in right knee M25.561 ; Pain in left knee M25.562 and Encounter for immunization Z23 [place] [address] 54649- 0780 Nov, Dental caries K02.9 [place] [address] 94216- 0951 Oct, Schizoaffective disorder, unspecified F25.9 [place] [address] 21418- 0591 12 Oct, 2015 Dental examination Z01.20 [place] [address] 50438- 1634 Sep, Dental examination Z01.20 and Dental caries K02.9 [facility] [id number] [place] [address] 66454- 0390 13 Sep, 2015 [facility] [id number] [place] [address] 16025- 9824 09 Sep, 2015 [facility] [address] 27195- 0765 Sep, [facility] [id number] [place] [address] 26728- 8859 Sep, Schizoaffective disorder, unspecified F25.9 [place] [address] 68066- 7952 August, Bipolar disorder, unspecified F31.9 [place] [id number] [place] [address] 35692- 9206 Jul, Edema R60.9 and Obesity E66.9 [place] [id number] [place] [address] 66481- 3308 Jul, Edema R60.9 [place] [address] 59397- 7318 Jul, Edema R60.9 [facility] [id number] [place] [address] 77932 -1858 Jul, Edema R60.9 [facility] [id number] [place] [address] 78484- 0364 Jul, [facility] [id number] [place] [address] 82922- 5345 Jul, [facility] [id number] [place] [address] 93205- 9635 24 Jun, 2015 Environmental allergies V15.09 and Cough R05 [place] [id number] [place] [address] 64495- 0340 17 Jun, 2015 Environmental allergies V15.09 ; Edema R60.9 and Cough R05 [facility] [id number] [place] [address] 79190 -4005 12 Jun, 2015 Bronchospasm J98.01 [facility] [id number] [place] [address] 72582- 2238 10 Jun, 2015 [facility] [address] 24074- 7463 09 Jun, 2015 [facility] [address] 15289- 3549 08 Jun, 2015 Environmental allergies V15.09 ; Bipolar 1 disorder F31.9 ; GERD (gastroesophageal reflux disease) K21.9 ; Depression F32.9 ; Joint pain of lower extremity M25.50 ; COPD (chronic obstructive pulmonary disease) J44.9 and Screening for diabetes mellitus Z13.1 [place] [address] 65786- 3788 16 Jun, 2015 [facility] [address] 22825- 0309 May, [place] [address] 83976- 4794 14 May, 2015 Schizoaffective disorder, unspecified F25.9 and Bipolar 1 disorder F31.9 [place] [address] 51281- 5604 May, [facility] [address] 43041- 5228 12 May, 2015 URI (upper respiratory infection) J06.9 ; Environmental allergies V15.09 and Cough R05 [place] [address] 16796- 9995 18 Mar, 2015 [place] [address] 96434- 0501 15 Mar, 2015 Vaginal discharge N89.8 [place] [address] [place] [address]- 2145 Mar, Schizoaffective disorder, unspecified F25.9 ; Major depressive disorder, single episode, unspecified F32.9 and Bipolar 1 disorder F31.9 [place] [id number] [place] [address] 41279- 6559 Mar, [place] [address] 60531- 4060 Mar, Bipolar 1 disorder F31.9 [place] [address] 68105- 5044 Jan, [place] [address] 80249- 5633 Jan, Allergic rhinitis J30.9 and Cough R05 [place] [address] 85081- 5329 Jan, 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 ; Bipolar 1 disorder F31.9 ; GERD ( gastroesophageal reflux disease) K21.9 ; Depression F32.9 and Joint pain of lower extremity M25.50 [place] [address] 46981- 3489 28 Dec, 2014 Encounter for immunization Z23 [place] [id number] [place] [address] 62141- 1393 02 Dec, 2014 Schizoaffective disorder, unspecified 295.70 ; Pain in joint , lower leg 719.46 ; Esophageal reflux 530.81 ; Bipolar 1 disorder 296.7 ; Depression 311 ; GERD (gastroesophageal reflux disease) 530.81 and Environmental allergies V15.09 [facility] [address] [place] [address] [id number] Nov, Dental examination V72.2 [place] [address] 16406- 8988 Nov, Acute bronchitis 466.0 [place] [address] 42172- 2732 Nov, Schizoaffective disorder, unspecified 295.70 and Bipolar disorder, unspecified 296.80 [facility] [address] [id number] Sep, Dental examination V72.2 [facility] [address] [id number] [id number] August, Dental examination V72.2 [facility] [id number] [place] [address] 43725 2546 August, Schizoaffective disorder, unspecified 295.70 [facility] [id number] [place] [address] 04647- 2546 August, [facility] [id number] [place] [address] 86110- 2546 August, Vomiting 787.03 [facility] [id number] [place] [address] 19189 2546 August, Vomiting and diarrhea 787.03 and High risk medication use V58.69 [facility] [address] [address]- 0976 Jul, [facility] [id number] [place] [address] 10996- 2646 Jul, [facility] [address] [address]- 6926 Jul, [facility] [address] [address] 2546 Jun, [facility] [address] [address] 2546 Jun, [facility] [id number] [place] [address] 77871- 0896 Jun, [facility] [address] [address]- 2546 Jun, [facility] [id number] [place] [address] 61410- 2782 16 Jun, 2014 [facility] [place] [facility] [address] [id number] [place] [address]- 4364 Jun, 2014 [facility] [place] [facility] [address] [id number] [place] 3516 Jun, 2014 [facility] [place] [facility] [address] [facility] [id number] [place] [address]- 8903 Jun, 2014 [facility] [place] [facility] [address] [id number] [place] [address]- 0060 Jun, 2014 [facility] [place] [facility] [address] [id number] [place] [address]- 0665 Mar, [facility] [place] [facility] [address] [id number] [place] [address]- 0354 Mar, [facility] [place] [facility] [address] [id number] [place] [address]- 7382 Mar, [facility] [place] [facility] [address] [id number] [place] [address]- 3955 Mar, [facility] [place] [facility] [address] [id number] [place] [address]- 5215 Mar, [facility] [place] [facility] [address] [facility] [id number] [place] [address]- 1099 Mar, [facility] [place] [facility] [address] [facility] [id number] [place] [address]- 5865 Mar, [facility] [place] [facility] [address] [id number] [place] [address]- 4071 Mar, [facility] [place] [facility] [address] [id number] [place] [address]- 2859 Mar, [facility] [place] [facility] [address] [id number] [place] [address]- 4307 Mar, [facility] [place] [facility] [address] [facility] [id number] [place] [address]- 5797 Jan, [facility] [place] [facility] [address] [id number] [place] [address]- 5705 Jan, [facility] [place] [facility] [address] [id number] [place] [address]- 3829 Jan, [facility] [place] [facility] [address] [id number] [place] [address]- 7971 Jan, [facility] [place] [facility] [address] [id number] [place] [address] Jan, [facility] [place] [facility] [address] [id number] [place] [address] 14 Jan, 2014 [facility] [place] [facility] [address] [id number] [place] [address] Jan, [facility] [place] [facility] [address] [id number] [place] [address] Jan, [facility] [place] [facility] [address] [id number] [place] [address] 19 Dec, 2013 [facility] [place] [facility] [address] [id number] [place] [address] 19 Dec, 2013 [facility] [place] [facility] [address] [id number] [place] [address] 15 Dec, 2013 [facility] [place] [facility] [address] [id number] [place] [address] 15 Dec, 2013 [facility] [place] [facility] [address] [id number] [place] [address] 15 Dec, 2013 [facility] [place] [facility] [address] [id number] [place] [address] 15 Dec, 2013 [facility] [place] [facility] [address] [id number] [place] [address] 12 Dec, 2013 [facility] [place] [facility] [address] [id number] [place] [address] 12 Dec, 2013 [facility] [place] [facility] [address] [id number] [place] [address] Dec, [facility] [place] [facility] [address] [id number] [place] [address] Dec, [facility] [place] [facility] [address] [id number] [place] [address] Nov, [facility] [place] [facility] [address] [id number] [place] [address] Nov, [facility] [place] [facility] [address] [id number] [place] [address] Nov, [facility] [place] [facility] [address] [id number] [place] [address] Nov, [facility] [place] [facility] [address] [id number] [place] [address] Oct, [facility] [place] [facility] [address] [id number] [place] [address] Oct, [facility] [place] [facility] [address] [id number] [place] [address] Oct, [facility] [place] [facility] [address] [id number] [place] [address] Oct, [facility] [place] [facility] [address] [id number] [place] [address] Sep, [facility] [place] [facility] [address] [id number] [place] [address] Sep, [facility] [place] [facility] [address] [id number] [place] [address] Sep, [facility] [place] [facility] [address] [id number] [place] [address] Sep, [facility] [place] [facility] [address] [id number] [place] [address] Sep, [facility] [place] [facility] [address] [id number] [place] [address] Sep, [facility] [facility] [address] [id number] [place] [address] Sep, [facility] [place] [facility] [address] [id number] [place] [address] Sep, [facility] [place] [facility] [address] [id number] [place] [address] August, [facility] [place] [facility] [address] [id number] [place] [address] August, [facility] [place] [facility] [address] [id number] [place] [address] Jul, [facility] [place] [facility] [address] [id number] [place] [address] Jul, [facility] [place] [facility] [address] [id number] [place] [address] Jul, [facility] [place] [facility] [address] [id number] [place] [address] Jul, [facility] [place] [facility] [address] [id number] [place] [address] Jul, [facility] [place] [facility] [address] [id number] [place] [address] Jul, [facility] [place] [facility] [address] [id number] [place] [address] Jul, [facility] [place] [facility] [address] [id number] [place] [address] Jul, [facility] [place] [facility] [address] [id number] [place] [address] Jul, [facility] [place] [facility] [address] [id number] [place] [address] Jul, [facility] [place] [facility] [address] [id number] [place] [address] Jun, [facility] [place] [facility] [address] [id number] [place] [address] Jun, [facility] [place] [facility] [address] [id number] [place] [address] 18 Jun, 2013 [facility] [facility] [address] [id number] [place] [address]- [address] 18 Jun, 2013 [facility] [place] [facility] [address] [id number] [place] [address]- [address] 17 Jun, 2013 [facility] [place] [facility] [address] [id number] [place] [address]- 1139 17 Jun, 2013 [facility] [facility] [address] [id number] [place] [address]- [address] 17 Jun, 2013 [facility] [place] [facility] [address] [id number] [place] [address]- [address]990 17 Jun, 2013 [facility] [place] [facility] [address] [id number] [place] [address]- [address]32 14 Jun, 2013 [facility] [place] [facility] [address] [id number] [place] [address]- [address]287 14 Jun, 2013 [facility] [place] [facility] [address] [id number] [place] [address]- [address] Jun, [facility] [place] [facility] [address] [id number] [place] [address] Jun, [facility] [place] [facility] [address] [id number] [place] [address]- [address] Jun, [facility] [place] [facility] [address] [id number] [place] [address]- 365[address] Jun, [facility] [place] [facility] [address] [id number] [place] [address] Jun, [facility] [place] [facility] [address] [id number] [place] [address] Jun, [facility] [place] [facility] [address] [id number] [place] [address] May, [facility] [facility] [address] [id number], [place] [address] May, [facility] [address] [id number] [place] [address] 1433 May, [facility] [address] [id number] [place] [address]- [address] May, [facility] [address] [id number] [place] [address] Mar, [facility] [address] [id number] [place] [address] 2866 Mar, [facility] [address] [id number] [place] [address]- 3045 Mar, [facility] [address] [id number] [place] [address] Mar, [facility] [address] [id number] [place] [address] Mar, [facility] [address] [id number] [place] [address] 3094 Mar, [facility] [address] [id number] [place] [address]32 Mar, [facility] [address] [id number] [place] [address] 2097 Mar, [facility] [address] [id number], [place] [address] Jan, [facility] [address] [id number], [place] [address] Jan, [facility] [address] [id number], [place] [address]- [address] 18 Jan, 2013 [facility] [address] [id number], [place] [address] Jan, [facility] [address] [id number] [place] [address]- [address] Jan, [facility] [address] [id number] [place] [address]- 6493 Jan, [facility] [address] [id number] [place] [address]- 8706 Jan, [facility] [address] [id number] [place] [address]- [address]36 Dec, [facility] [address] [id number] [place] [address]- [address]476 Nov, [facility] [address] [id number] [place] [address] 9949 Oct, [facility] [address] [id number] [place] [address] Oct, [facility] [address] [id number] [place] [address] Sep, [facility] [address] [id number] [place] [address]- [address]128 Sep, [facility] [address] [id number] [place] [address]- 44[address] Sep, [facility] [address] [id number] [place] [address] August, [facility] [address] [id number] [place] [address]- [address] Jun, [facility] [address] [id number] [place] [address]- 69[address] Jun, [facility] [address] [id number] [place] [address] 3713 Jun, [facility] [address] [id number] [place] [address]- 4883 Jun, [facility] [address] [id number] [place] [address]- 59[address] Jun, [facility] [address] [id number] [place] [address]- 5735 Jun, [facility] [address] [id number] [place] [address]- 5930 Jun, [facility] [address] [id number] [place] [address]- 0316 May, [facility] [address] [id number] [place] [address]- 8601 May, [facility] [address] [id number] [place] [address]- 2639 May, [facility] [address] [id number] [place] [address]- 0087 May, [facility] [address] [id number] [place] [address]- 1827 May, [facility] [address] [id number] [place] [address]- 1038 May, [facility] [address] [id number] [place] [address]- 3337 May, [facility] [address] [id number] [place] [address]- 3185 Mar, [facility] [address] [id number] [place] [address]- 9248 Mar, [facility] [address] [id number], [place] [address]- [address]406 Mar, [facility] [address] [id number], [place] [address]- 5811 Mar, [facility] [address] [id number] [place] [address]- 8125 Mar, [facility] [address] [id number] [place] [address]- 9199 Mar, [facility] [address] [id number] [place] [address]- 6412 Mar, [facility] [address] [id number] [place] [address]- 1288 Mar, [facility] [address] [id number] [place] [address]- 0854 Mar, [facility] [address] [id number] [place] [address]- 1870 Mar, [facility] [address] [id number] [place] [address]- 1517 Mar, [facility] [address] [id number] [place] [address]- 8631 Mar, [facility] [address] [id number] [place] [address], [place] [address]- [address]803 Mar, [facility] [address] [id number] [place] [address]- 2120 Mar, [facility] [address] [id number] [place] [address]- 9063 Mar, [facility] [address] [id number] [place] [address]- 0099 Mar, [facility] [address] [id number] [place] [address]- 9145 Mar, [facility] [address] [facility] [id number] [place] [address]- 4483 Mar, [facility] [address] [id number] [place] [address]- 7024 Mar, [facility] [address] [id number] [place] [address]- 8323 Jan, [facility] [address] [id number] [place] [address]- 6534 Jan, [facility] [address] [facility] [id number] [place] [address]- 1721 Jan, [facility] [address] [id number] [place] [address]- 8902 Jan, [facility] [address] [id number], [place] [address] Dec, [facility] [id number], [place] [address]239 Dec, [facility] [id number], [place] [address]- [address]29 Dec, [facility] [address] [facility] [id number], [place] [address]- [address]143 Nov, [facility] [address], [place] [address]- [address]30 Nov, [facility] [address], [place] [address]- 8914 Oct, [facility] [address], [place] [address]- [address]562 Oct, [facility] [address], [place] [address]- 5187 Oct, [facility] [address], [place] [address]- [address]1 Oct, [facility] [address], [place] [address]- 5049 Oct, [facility] [address] [id number], [place] [address]- [address] Oct, IMMUNIZATIONS No Known Immunizations SOCIAL HISTORY Never Assessed [facility] FOR VISIT [facility] Activity Details Follow Up 3 Months, prn Reason:CHM/Pre-diabetes VITAL SIGNS Height 63 in 2017-11-13 Weight 267.9 lbs 2017-11-13 Temperature 97.2 degrees Fahrenheit 2017-11-13 Heart Rate 78 bpm 2017-11-13 Respiratory Rate 20 2017-11-13 BMI 47.45 kg/m2 2017-11-13 Blood pressure systolic 118 mmHg 2017-11-13 Blood pressure diastolic 76 mmHg 2017-11-13 MEDICATIONS Medication Instructions Dosage Frequency Start Date End Date Duration Status Lamictal 150 MG TAKE ONE TABLET BY MOUTH ONCE DAILY Active Zyrtec Allergy 10 MG TAKE ONE TABLET BY MOUTH ONCE DAILY Active Protonix 20 mg Orally Once a day 1 tablet 24h 30 Active Albuterol Sulfate 0.63 MG/3ML Inhalation every 4 hrs 3 ml as needed 4h Jun, 12 months Active Gabapentin 300 MG Orally Three times a day 1 capsule 8h 30 days Active Albuterol Sulfate HFA 108 (90 Base) MCG/ACT Inhalation every 4 hrs 2 puffs as needed 4h May, 12 months Active MetFORMIN HCl ER 500 mg Orally Once a day 1 tablet with evening meal 24h 10 Jan, 2017 Active Flonase 50 MCG/ACT Nasally Once a day 1 spray in each nostril 24h 30 Active Risperdal 1 MG TAKE ONE TABLET BY MOUTH TWICE DAILY 30 Active Citalopram Hydrobromide 40 MG TAKE ONE (1) TABLET BY MOUTH ONCE DAILY Active Meloxicam 7.5 MG TAKE ONE TABLET BY MOUTH TWICE DAILY 30 Active Hydrochlorothiazide 50 MG TAKE ONE TABLET BY MOUTH ONCE DAILY 30 Active RESULTS No Results PROCEDURES No [...]
--- OUTSIDE RECORDS SUMMARY | 2018-05-15 06:16 | XMS REPORT ---
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 Name Role Phone RAY NEVAREZ Unavailable PROBLEMS Type Condition ICD9-CM Code BFR74-VA Code Onset Dates Condition Status SNOMED Code Problem Major depressive disorder, single episode, unspecified F32.9 Active 83474662 Problem Schizoaffective disorder, bipolar type F25.0 Active 97424009 Problem Neuropathy G62.9 Active 319615648 Problem COPD suggested by initial evaluation J44.9 Active 41358061 Problem Body mass index (BMI) of 45.0-49.9 in adult Z68.42 Active 103253344 Problem Post-menopausal bleeding N95.0 Active 85093311 Problem 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 Active 894798200 Problem Morbid (severe) obesity due to excess calories E66.01 Active 524478982 Problem Primary osteoarthritis of left knee M17.12 Active 226314353 Problem Obstructive sleep apnea G47.33 Active 05647798 Problem Bipolar 1 disorder F31.9 Active 813251474 Problem Edema R60.9 Active 983511360 Problem Depression F32.9 Active 52135457 Problem Obesity E66.9 Active 847524143 Problem GERD (gastroesophageal reflux disease) K21.9 Active 852528666 Problem Environmental allergies Z91.09 Active 753521729 ALLERGIES No Information ENCOUNTERS Encounter Location Date Diagnosis [facility] [address] [facility] [id number] [address] Jan, [facility] [id number] [place] [address] 52194- 4023 05 Dec, 2017 [facility] [address], [place] [address] Nov, Obstructive sleep apnea G47.33 and COPD suggested by initial evaluation J44.9 [facility] [address] [address] 4884 Nov, COPD (chronic obstructive pulmonary disease) J44.9 [facility] [id number] [address] Nov, [facility] [id number] [address] 2633 Oct, [facility] [id number] [place] [address] 06612- 5233 Oct, [facility] [id number] [place] [address] 65329- 9666 Oct, 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 [facility] [id number] [place] [address] 13966- 2496 Oct, Schizoaffective disorder, bipolar type F25.0 ; 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 and Other residential (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 Z79.899 [facility] [id number] [address] Oct, Prediabetes R73.03 ; COPD suggested by initial evaluation J44.9 ; BMI 45.0-49.9, adult Z68.42 and Obstructive sleep apnea G47.33 [facility] [address] [address] Sep, [facility] [id number] [address] 9414 August, Neuropathy G62.9 [facility] [address] [address] 39[address] August, [facility] [id number] [address] 0620 August, [facility] [address] [address] 9697 Jul, [facility] [id number] [place] [address] 39046- 2791 Jul, Primary osteoarthritis of left knee M17.12 [place] [address] 56777- 8273 Jul, Schizoaffective disorder, bipolar type F25.0 and 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 [place] [address] 01332- 6528 Jul, Prediabetes R73.03 ; Primary osteoarthritis of left knee M17.12 ; GERD (gastroesophageal reflux disease) K21.9 ; Bipolar 1 disorder F31.9 ; Depression F32.9 ; Environmental allergies Z91.09 ; Neuropathy G62.9 ; Edema R60.9 ; Body mass index (BMI) of 45.0-49.9 in adult Z68.42 and Morbid ( severe) obesity due to excess calories E66.01 [place] [address] 24654- 3619 Jul, [place] [address] 11144- 3551 Jun, [place] [address] 57880- 5350 Jun, [facility] [id number] [place] [address] 67995- 1541 Jun, Wound of right breast, initial encounter S21.001A and Prediabetes R73.03 [facility] [id number] [place] [address] 90078- 6258 Jun, [facility] [id number] [place] [address] 46390- 7429 May, GERD (gastroesophageal reflux disease) K21.9 [facility] [id number] [place] [address] 87073- 1122 May, Primary osteoarthritis of left knee M17.12 [facility] [id number] [place] [address] 06360- 4237 May, Schizoaffective disorder, bipolar type F25.0 and 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 [facility] [id number] [place] [address] 77811- 3717 May, Left medial knee pain M25.562 ; GERD (gastroesophageal reflux disease) K21.9 ; Depression F32.9 ; Neuropathy G62.9 ; Obesity E66.9 ; Prediabetes R73.03 and Edema R60.9 [facility] [id number] [place] [address] 56201- 9887 14 Mar, 2017 [place] [address] 79054- 2527 Mar, [place] [address] 91170- 2824 05 Mar, 2017 Post-menopausal bleeding N95.0 and BMI 50.0-59.9, adult Z68.43 [place] [address] 85230- 6795 Mar, [facility] [id number] [place] [address] 34426- 5369 Mar, Schizoaffective disorder, bipolar type F25.0 and 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 [facility] [id number] [place] [address] 85304- 9509 27 Mar, 2017 [facility] [id number] [place] [address] 27471- 0424 16 Mar, 2017 [facility] [id number] [place] [address] 23410- 1727 10 Mar, 2017 Post-menopausal bleeding N95.0 ; Screening breast examination Z12.31 ; Screen for STD (sexually transmitted disease) Z11.3 ; Obesity E66.9 ; Family history of ovarian cancer Z80.41 and Family history of cervical cancer Z80.49 [facility] [id number] [place] [address] 37160- 3230 03 Mar, 2017 [facility] [id number] [address]- 2551 Mar, [facility] [id number] [place] [address] 40852- 4163 Jan, Schizoaffective disorder, bipolar type F25.0 and 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 [facility] [id number] [place] [address] 12077- 4444 Jan, Schizoaffective disorder, bipolar type F25.0 [facility] [id number] [place] [address] 81172- 2850 Jan, [facility] [id number] [place] [address] 22615- 6219 Jan, Prediabetes R73.03 and Obesity E66.9 [facility] [id number] [place] [address] 89821- 9321 Jan, Encounter for immunization Z23 [facility] [id number] [place] [address] 89083- 6106 Jan, [facility] [id number] [place] [address] 44254- 4893 Dec, [facility] [id number] [place] [address] 73334- 9046 Dec, [facility] [id number] [place] [address] 76525- 3326 Nov, Neuropathy G62.9 [facility] [id number] [address]- 4317 Nov, [facility] [id number] [place] [address] 86987- 8158 Nov, Schizoaffective disorder, bipolar type F25.0 [facility] [address] [address]- 2888 Nov, Other residential (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 Z79.899 and Schizoaffective disorder, bipolar type F25.0 [facility] [id number] [place] [address] 87372- 2521 Oct, Schizoaffective disorder, bipolar type F25.0 ; 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 and 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 [facility] [id number] [place] [address] [id number] Oct, Dental caries K02.9 [facility] [id number] [place] [address] 15297- 2724 Sep, Neuropathy G62.9 [facility] [id number] [place] [address] 41552- 3886 Sep, [facility] [id number] [place] [address] 05734- 0707 Sep, Neuropathy G62.9 [facility] [id number] [place] [address] 02166- 4234 Jul, Schizoaffective disorder, depressive type F25.1 [facility] [id number] [place] [address] 82919- 7083 Jul, GERD (gastroesophageal reflux disease) K21.9 ; Joint pain of lower extremity M25.50 ; Environmental allergies Z91.09 ; Stress incontinence of urine N39.3 ; Neuropathy G62.9 ; Edema R60.9 and Acute pain of left knee M25.562 [facility] [id number] [place] [address] 45616- 7592 Jun, [facility] [id number] [place] [address] [id number] Jun, Dental examination Z01.20 [facility] [id number] [place] [address] 87462- 0623 02 Jun, 2016 [facility] [id number] [place] [address] 24763- 6964 May, [facility] [id number] [place] [address] 17934- 4045 May, Bipolar 1 disorder F31.9 ; Joint pain of lower extremity M25.50 ; Environmental allergies Z91.09 ; Stress incontinence of urine N39.3 ; Major depressive disorder, single episode, unspecified F32.9 ; Dizzy R42 ; Schizoaffective disorder, unspecified F25.9 ; Neuropathy G62.9 ; Localized edema R60.0 and GERD (gastroesophageal reflux disease) K21.9 [place] [address] 35644- 5005 May, Schizoaffective disorder, depressive type F25.[address] 31658- 8067 May, Environmental allergies Z91.09 and Major depressive disorder , single episode, unspecified F32.9 [place] [address] 39410- 6428 Mar, Dental caries K02.9 [place] [address] 88286- 1606 Mar, Dental caries on smooth surface penetrating into pulp K02.63 [facility] [place] [address] 38390 -1695 Mar, Peripheral edema R60.9 and Dry skin L85.[address] 19518- 9744 Mar, [place] [address] 78283- 8860 Mar, Major depressive disorder, single episode, unspecified F32.9 [place] [address] 75308- 9493 Mar, Dental caries K02.9 [facility] [facility] [id number] [place] [address] 94056- 8589 Mar, Diabetes mellitus with complication E11.8 ; Urinary frequency R35.0 ; Stress incontinence of urine N39.3 ; Joint pain of lower extremity M25.50 ; Obesity E66.9 ; Environmental allergies Z91.09 ; Depression F32.9 ; Schizoaffective disorder, unspecified F25.9 ; Vaginal discharge N89.8 and Vaginal candidiasis B37.3 [place] [id number] [place] [address] 78623- 5213 Jan, Schizoaffective disorder, unspecified F25.9 [place] [address] 54060- 3029 Jan, [place] [address] 84964- 7610 30 Dec, 2015 [place] [address] 41703- 7577 19 Dec, 2015 Dental caries K02.9 [place] [address] 72750- 3388 14 Dec, 2015 Obesity E66.9 ; Edema R60.9 ; Depression F32.9 ; Bipolar 1 disorder F31.9 ; 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 ; Environmental allergies Z91.09 ; Shortness of breath R06.02 ; Gastroesophageal reflux disease with esophagitis K21.0 ; Other chronic pain G89.29 ; Pain in right knee M25.561 ; Pain in left knee M25.562 and Encounter for immunization Z23 [place] [id number] [place] [address] 44514- 9338 Nov, Dental caries K02.9 [place] [address] 42092- 4875 Oct, Schizoaffective disorder, unspecified F25.9 [place] [address] 79488- 3484 Oct, Dental examination Z01.20 [place] [address] 88136- 9859 Sep, Dental examination Z01.20 and Dental caries K02.9 [facility] [address], [place] [address]- 9876 13 Sep, 2015 [facility] [id number] [place] [address] 30659- 4691 Sep, [facility] [id number] [place] [address] 84672- 8818 07 Sep, 2015 [facility] [id number] [place] [address] 00407- 6859 Sep, Schizoaffective disorder, unspecified F25.9 [facility] [id number] [place] [address] 25702- 4237 August, Bipolar disorder, unspecified F31.9 [facility] [id number] [place] [address] 23406- 9364 Jul, Edema R60.9 and Obesity E66.9 [facility] [id number] [place] [address] 30481- 1947 Jul, Edema R60.9 [facility] [id number] [place] [address] 02557- 7317 Jul, Edema R60.9 [facility] [id number] [place] [address] 73795 -4502 Jul, Edema R60.9 [facility] [id number] [place] [address] 18390- 4980 Jul, [facility] [id number] [place] [address] 40789- 1652 Jul, [facility] [id number] [place] [address] 04663- 1452 24 Jun, 2015 Environmental allergies V15.09 and Cough R05 [facility] [id number] [place] [address] 15128- 7240 17 Jun, 2015 Environmental allergies V15.09 ; Edema R60.9 and Cough R05 [facility] [id number] [place] [address] 95238 -2767 12 Jun, 2015 Bronchospasm J98.01 [facility] [address] 29290- 6966 10 Jun, 2015 [place] [id number] [place] [address] 11660- 7466 09 Jun, 2015 [place] [address] 06167- 1779 08 Jun, 2015 Environmental allergies V15.09 ; Bipolar 1 disorder F31.9 ; GERD (gastroesophageal reflux disease) K21.9 ; Depression F32.9 ; Joint pain of lower extremity M25.50 ; COPD (chronic obstructive pulmonary disease) J44.9 and Screening for diabetes mellitus Z13.1 [place] [id number] [place] [address] 67184- 1506 16 Jun, 2015 [place] [address] 95581- 2869 May, [place] [id number] [place] [address] 10950- 4559 14 May, 2015 Schizoaffective disorder, unspecified F25.9 and Bipolar 1 disorder F31.9 [place] [id number] [place] [address] 24219- 7114 May, [place] [id number] [place] [address] 55311- 0175 May, URI (upper respiratory infection) J06.9 ; Environmental allergies V15.09 and Cough R05 [place] [id number] [place] [address] 30906- 6006 18 Mar, 2015 [place] [facility] [id number] [place] [address] 90451- 4993 15 Mar, 2015 Vaginal discharge N89.8 [place] [id number] [place] [address] 02060- 9848 14 Mar, 2015 Schizoaffective disorder, unspecified F25.9 ; Major depressive disorder, single episode, unspecified F32.9 and Bipolar 1 disorder F31.9 [place] [address] 22611- 7559 Mar, [place] [address] 82252- 3962 Mar, Bipolar 1 disorder F31.9 [place] [address] 35341- 9675 Jan, [place] [address] 42182- 1010 Jan, Allergic rhinitis J30.9 and Cough R05 [address] 41089- 6967 Jan, 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 ; Bipolar 1 disorder F31.9 ; GERD ( gastroesophageal reflux disease) K21.9 ; Depression F32.9 and Joint pain of lower extremity M25.50 [place] [address] 98089- 3117 Dec, Encounter for immunization Z23 [address] 74950- 0213 Dec, Schizoaffective disorder, unspecified 295.70 ; Pain in joint , lower leg 719.46 ; Esophageal reflux 530.81 ; Bipolar 1 disorder 296.7 ; Depression 311 ; GERD (gastroesophageal reflux disease) 530.81 and Environmental allergies V15.09 [facility] [id number] [place] [address] [id number] Nov, Dental examination V72.2 [place] [address] 12008- 2917 Nov, Acute bronchitis 466.0 [place] [address] 99367- 2214 Nov, Schizoaffective disorder, unspecified 295.70 and Bipolar disorder, unspecified 296.80 [facility] [address] [id number] Sep, Dental examination V72.2 [facility] [id number] [place] [address] [id number] August, Dental examination V72.2 [facility] [id number] [place] [address] 00590 2546 August, Schizoaffective disorder, unspecified 295.70 [facility] [id number] [place] [address] 78425 2546 August, [facility] [id number] [place] [address] 08077 2546 August, Vomiting 787.03 [facility] [id number] [place] [address] 89803 2546 August, Vomiting and diarrhea 787.03 and High risk medication use V58.69 [facility] [id number] [place] [address] 30090- 7286 Jul, [facility] [id number] [place] [address] 02399- 1294 Jul, [facility] [id number] [place] [address] 22839- 4536 Jul, [facility] [address] [address]- 9816 Jun, [facility] [address] [place] [address] 81082- 7696 Jun, [facility] [id number] [place] [address] 93203 2546 Jun, [facility] [id number] [place] [address] 24649- 8946 Jun, [facility] [id number] [place] [address] 48791- 2546 Jun, [facility] [id number] [place] [address] 70665- 1122 Jun, 2014 [facility] [place] [facility] [address] [id number] [place] [address]- 9908 Jun, 2014 [facility] [place] [facility] [address] [id number] [place] [address]- 8026 Jun, 2014 [facility] [place] [facility] [address] [facility] [id number] [place] [address]- 8596 Jun, [facility] [place] [facility] [address] [facility] [id number] [place] [address]- 4326 Mar, [facility] [place] [facility] [address] [id number] [place] [address]- 2875 Mar, [facility] [place] [facility] [address] [facility] [id number] [place] [address]- 0080 Mar, [facility] [place] [facility] [address] [facility] [id number] [place] [address]- 2666 Mar, [facility] [place] [facility] [address] [facility] [id number] [place] [address]- 1578 Mar, [facility] [place] [facility] [address] [facility] [id number] [place] [address]- 0866 Mar, [facility] [place] [facility] [address] [facility] [id number] [place] [address]- 8418 Mar, [facility] [place] [facility] [address] [facility] [id number] [place] [address]- 8346 Mar, [facility] [place] [facility] [address] [facility] [id number] [place] [address]- 3964 Mar, [facility] [place] [facility] [address] [id number] [place] [address]- 1545 Mar, [facility] [place] [facility] [address] [facility] [id number] [place] 9668 Jan, [facility] [place] [facility] [address] [facility] [id number] [place] 2155 Jan, [facility] [place] [facility] [address] [id number] [place] [address]- 0681 Jan, [facility] [place] [facility] [address] [id number] [place] [address]- 7819 Jan, [facility] [place] [facility] [address] [id number] [place] [address]- 5390 Jan, [facility] [place] [facility] [address] [id number] [place] [address]- 3411 Jan, [facility] [place] [facility] [address] [id number] [place] [address]- 7265 Jan, [facility] [place] [facility] [address] [id number] [place] [address]- 0236 Jan, [facility] [place] [facility] [address] [id number] [place] [address]- 6735 19 Dec, 2013 [facility] [place] [facility] [address] [id number] [place] [address]- 5234 19 Dec, 2013 [facility] [place] [facility] [address] [id number] [place] [address]- 6587 15 Dec, 2013 [facility] [place] [facility] [address] [id number] [place] [address]- 0743 15 Dec, 2013 [facility] [place] [facility] [address] [id number] [place] [address]- 6636 15 Dec, 2013 [facility] [place] [facility] [address] [id number] [place] [address]- 6544 15 Dec, 2013 [facility] [place] [facility] [address] [id number] [place] [address] 12 Dec, 2013 [facility] [place] [facility] [address] [id number] [place] [address] 12 Dec, 2013 [facility] [place] [facility] [address] [id number] [place] [address] 03 Dec, 2013 [facility] [place] [facility] [address] [id number] [place] [address] Dec, [facility] [place] [facility] [address] [id number] [place] [address] Nov, [facility] [place] [facility] [address] [id number] [place] [address] Nov, [facility] [place] [facility] [address] [id number] [place] [address] Nov, [facility] [place] [facility] [address] [id number] [place] [address] Nov, [facility] [place] [facility] [address] [id number] [place] [address] Oct, [facility] [place] [facility] [address] [id number] [place] [address] Oct, [facility] [place] [facility] [address] [id number] [place] [address] Oct, [facility] [place] [facility] [address] [id number] [place] [address] Oct, [facility] [place] [facility] [address] [id number] [place] [address] Sep, [facility] [place] [facility] [address] [id number] [place] [address] Sep, [facility] [place] [facility] [address] [id number] [place] [address] Sep, [facility] [place] [facility] [address] [id number] [place] [address] Sep, [facility] [place] [facility] [address] [id number] [place] [address] Sep, [facility] [place] [facility] [address] [id number] [place] [address] Sep, [facility] [place] [facility] [address] [id number] [place] [address] Sep, [facility] [place] [facility] [address] [id number] [place] [address] Sep, [facility] [address] [id number] [place] [address] August, [facility] [place] [facility] [address] [id number] [place] [address] August, [facility] [address] [id number] [place] [address] Jul, [facility] [place] [facility] [address] [id number] [place] [address] Jul, [facility] [address] [id number] [place] [address] Jul, [facility] [place] [facility] [address] [id number] [place] [address] Jul, [facility] [address] [id number] [place] [address] Jul, [facility] [address] [id number] [place] [address] Jul, [facility] [place] [facility] [address] [id number] [place] [address] Jul, [facility] [address] [id number] [place] [address] Jul, [facility] [place] [facility] [address] [id number] [place] [address] Jul, [facility] [place] [facility] [address] [id number] [place] [address] Jul, [facility] [facility] [address] [id number] [place] [address] Jun, [facility] [place] [facility] [address] [id number] [place] [address] Jun, [facility] [place] [facility] [address] [id number] [place] [address] Jun, [facility] [place] [facility] [address] [id number] [place] [address] 18 Jun, 2013 [facility] [place] [facility] [address] [id number] [place] [address] 17 Jun, 2013 [facility] [place] [facility] [address] [id number] [place] [address] 17 Jun, 2013 [facility] [place] [facility] [address] [id number] [place] [address] 17 Jun, 2013 [facility] [place] [facility] [address] [id number] [place] [address] 17 Jun, 2013 [facility] [place] [facility] [address] [id number] [place] [address] 14 Jun, 2013 [facility] [place] [facility] [address] [id number] [place] [address]66 14 Jun, 2013 [facility] [place] [facility] [address] [id number] [place] [address] 07 Jun, 2013 [facility] [place] [facility] [address] [id number] [place] [address] Jun, [facility] [place] [facility] [address] [id number] [place] [address] Jun, [facility] [place] [facility] [address] [id number] [place] [address] Jun, [facility] [place] [facility] [address] [id number] [place] [address] 4[address] Jun, [facility] [place] [facility] [address] [id number] [place] [address]- 299[address] Jun, [facility] [place] [facility] [address] [id number] [place] [address]486 May, [facility] [place] [facility] [address] [id number] [place] [address] 9899 May, [facility] [place] [facility] [address] [id number] [place] [address] May, [facility] [address] [id number] [place] [address]- [address]127 May, [facility] [facility] [address] [id number] [place] [address] 36[address] Mar, [facility] [place] [facility] [address] [id number] [place] [address]777 Mar, [facility] [place] [facility] [address] [id number] [place] [address]- [address]83 Mar, [facility] [place] [facility] [address] [id number] [place] [address]- 5167 Mar, [facility] [place] [facility] [address] [id number] [place] [address] 2589 Mar, [facility] [place] [facility] [address] [id number] [place] [address]- 9315 Mar, [facility] [place] [facility] [address] [id number] [place] [address]- 8671 Mar, [facility] [place] [facility] [address] [id number] [place] [address]- 0766 Mar, [facility] [address] [facility] [id number] [place] [address] 6484 Jan, [facility] [place] [address] [id number] [place] [address] 4159 Jan, [facility] [place] [address] [id number], [place] [address] Jan, [facility] [place] [address] [id number] [place] [address]- 2586 Jan, [facility] [address] [id number] [place] [address]- 9235 Jan, [facility] [address] [id number], [place] [address] Jan, [facility] [address] [id number] [place] [address]- 8928 Jan, [facility] [address] [id number] [place] [address]- 9883 Dec, [facility] [place] [address] [id number] [place] [address] 6420 Nov, [facility] [place] [address] [id number] [place] [address]- 7940 Oct, [facility] [place] [address] [id number] [place] [address] 1231 Oct, [facility] [place] [facility] [address] [id number] [place] [address]39 Sep, [facility] [place] [facility] [address] [id number] [place] [address]- 4121 Sep, [facility] [address] [id number] [place] [address] 2431 Sep, [facility] [facility] [address] [id number] [place] [address]- 4958 August, [facility] [address] [id number] [place] [address]- 8558 Jun, [facility] [address] [id number] [place] [address]197 Jun, [facility] [address] [id number], [place] [address] Jun, [facility] [address] [id number] [place] [address]- 1503 Jun, [facility] [address] [id number] [place] [address]- [address]235 Jun, [facility] [address] [id number] [place] [address] Jun, [facility] [address] [id number], [place] [address]- [address]65 07 Jun, 2012 [facility] [address] [id number] [place] [address]- 0868 May, [facility] [address] [id number] [place] [address]- 8040 May, [facility] [address] [facility] [id number] [place] [address]- 8284 May, [facility] [address] [id number] [place] [address]- 5062 May, [facility] [address] [id number] [place] [address]- 6737 May, [facility] [address] [id number] [place] [address]- 4532 May, [facility] [address] [facility] [id number], [place] [address] May, [facility] [address] [id number] [place] [address]- 9073 Mar, [facility] [address] [id number] [place] [address] 0335 Mar, [facility] [address] [facility] [id number] [place] [address]- 4508 Mar, [facility] [address] [facility] [id number], [place] [address] 4415 Mar, [facility] [address] [id number], [place] [address] 1127 Mar, [facility] [address] [id number], [place] [address]- 3261 Mar, [facility] [address] [facility] [id number], [place] [address]- 2451 Mar, [facility] [address] [facility] [id number], [place] [address]- 7618 Mar, [facility] [address] [id number] [place] [address]- 7646 Mar, [facility] [address] [id number] [place] [address]- 8338 Mar, [facility] [address] [id number] [place] [address]- 4247 Mar, [facility] [address] [id number] [place] [address]- 2019 Mar, [facility] [address] [id number] [place] [address]- 7156 Mar, [facility] [address] [id number] [place] [address]- 4487 Mar, [facility] [address] [id number] [place] [address]- 9109 Mar, [facility] [address] [id number] [place] [address]- 1444 Mar, [facility] [address] [id number] [place] [address]- 9709 Mar, [facility] [address] [id number] [place] [address]- 2985 Mar, [facility] [address] [id number] [place] [address]- 9131 Mar, [facility] [address] [id number] [place] [address]- 5750 Jan, [facility] [address] [id number] [place] [address]- 3545 Jan, [facility] [address] [id number] [place] [address]- 5272 Jan, [facility] [address] [id number] [place] [address]- 3523 Jan, [facility] [address] [id number] [place] [address]- 8880 Dec, [facility] [address] [id number], [place] [address] Dec, [facility] [id number], [place] [address]- 4931 Dec, [facility] [id number], [place] [address]- 7906 Nov, [facility] [id number] [place] [address]433- 3529 Nov, [facility] [id number] [place] [address]- 9186 Oct, [facility] [id number] [place] [address]- 6347 Oct, [facility] [id number] [place] [address]- 2215 Oct, [facility] [id number], [place] [address]- 5794 Oct, [facility] [id number], [place] [address]- 7545 Oct, [facility] [id number], [place] [address]- 7425 Oct, IMMUNIZATIONS No Known Immunizations SOCIAL HISTORY [...]
--- OUTSIDE RECORDS SUMMARY | 2018-05-15 06:18 | XMS REPORT ---
Author Author MONIQUE PRESLEY [facility] Address [address] [place] [address] Care Team Providers Care Dental Prosthetist Name Role Phone SAKINA, MONIQUE Unavailable PROBLEMS Type Condition ICD9-CM Code NIB49-OS Code Onset Dates Condition Status SNOMED Code Problem Major depressive disorder, single episode, unspecified F32.9 Active 22244053 Problem Schizoaffective disorder, bipolar type F25.0 Active 21519143 Problem Neuropathy G62.9 Active 804923741 Problem COPD suggested by initial evaluation J44.9 Active 22782923 Problem Body mass index (BMI) of 45.0-49.9 in adult Z68.42 Active 292837152 Problem Post-menopausal bleeding N95.0 Active 83306338 Problem 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 Active 705535131 Problem Morbid (severe) obesity due to excess calories E66.01 Active 386733849 Problem Primary osteoarthritis of left knee M17.12 Active 642126375 Problem Obstructive sleep apnea G47.33 Active 13110313 Problem Bipolar 1 disorder F31.9 Active 074411604 Problem Edema R60.9 Active 400881974 Problem Depression F32.9 Active 28546601 Problem Obesity E66.9 Active 713172119 Problem GERD (gastroesophageal reflux disease) K21.9 Active 232259792 Problem Environmental allergies Z91.09 Active 441923583 ALLERGIES No Information ENCOUNTERS Encounter Location Date Diagnosis [facility] [id number] [address] Jan, [facility] [address], [place] [address] 05 Dec, 2017 [facility] [id number] [address] Nov, Obstructive sleep apnea G47.33 and COPD suggested by initial evaluation J44.9 [facility] [address], [place] [address] Nov, COPD (chronic obstructive pulmonary disease) J44.9 [facility] [id number] [address] Nov, [facility] [id number] [address] 6[address] Oct, [facility] [id number] [place] [address] 16074- 7047 Oct, [facility] [id number] [place] [address] 67500- 9341 Oct, Other care home (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 Z79.899 [facility] [id number] [place] [address] 48177- 5425 Oct, Schizoaffective disorder, bipolar type F25.0 ; 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 and Other care home (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 Z79.899 [facility] [address] [address] Oct, Prediabetes R73.03 ; COPD suggested by initial evaluation J44.9 ; BMI 45.0-49.9, adult Z68.42 and Obstructive sleep apnea G47.33 [facility] [address] [address] Sep, [facility] [id number] [place] [address] 27897- 0294 August, Neuropathy G62.9 [facility] [address] [address] 4[address] August, [facility] [id number] [place] [address] 76109- 8636 August, [facility] [address] [address] 8253 Jul, [facility] [id number] [place] [address] 38238- 6628 Jul, Primary osteoarthritis of left knee M17.12 [address] [address] 22248- 5684 Jul, Schizoaffective disorder, bipolar type F25.0 and 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 [address] [address] 07330- 9319 Jul, Prediabetes R73.03 ; Primary osteoarthritis of left knee M17.12 ; GERD (gastroesophageal reflux disease) K21.9 ; Bipolar 1 disorder F31.9 ; Depression F32.9 ; Environmental allergies Z91.09 ; Neuropathy G62.9 ; Edema R60.9 ; Body mass index (BMI) of 45.0-49.9 in adult Z68.42 and Morbid ( severe) obesity due to excess calories E66.01 [place] [address] 26663- 2282 Jul, [address] [id number] [place] [address] 93350- 6588 Jun, [address] 87655- 5561 Jun, [address] [address] 20557- 3889 Jun, Wound of right breast, initial encounter S21.001A and Prediabetes R73.03 [place] [id number] [place] [address] 67929- 3154 Jun, [address] [id number] [place] [address] 60417- 2454 May, GERD (gastroesophageal reflux disease) K21.9 [place] [id number] [place] [address] 61871- 7947 May, Primary osteoarthritis of left knee M17.12 [place] [id number] [place] [address] 83366- 2213 May, Schizoaffective disorder, bipolar type F25.0 and 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 [address] [address] 88923- 6805 04 May, 2017 Left medial knee pain M25.562 ; GERD (gastroesophageal reflux disease) K21.9 ; Depression F32.9 ; Neuropathy G62.9 ; Obesity E66.9 ; Prediabetes R73.03 and Edema R60.9 [address] [address] 32581- 1160 14 Mar, 2017 [place] [address] 62921- 7828 08 Mar, 2017 [place] [address] 08436- 3827 05 Mar, 2017 Post-menopausal bleeding N95.0 and BMI 50.0-59.9, adult Z68.43 [address] [address] 73947- 1320 Mar, [address] [address] 42502- 9323 27 Mar, 2017 Schizoaffective disorder, bipolar type F25.0 and 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 [address] [id number] [place] [address] 80591- 8718 27 Mar, 2017 [address] [id number] [place] [address] 56694- 8436 16 Mar, 2017 [address] [id number] [place] [address] 10451- 3900 10 Mar, 2017 Post-menopausal bleeding N95.0 ; Screening breast examination Z12.31 ; Screen for STD (sexually transmitted disease) Z11.3 ; Obesity E66.9 ; Family history of ovarian cancer Z80.41 and Family history of cervical cancer Z80.49 [address] [id number] [place] [address] 07225- 8617 03 Mar, 2017 [address], [place] [address]- 0971 Mar, [facility] [id number] [place] [address] 66932- 7660 Jan, Schizoaffective disorder, bipolar type F25.0 and 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 [facility] [id number] [place] [address] 00508- 1864 Jan, Schizoaffective disorder, bipolar type F25.0 [facility] [id number] [place] [address] 46309- 6759 Jan, [facility] [id number] [place] [address] 85879- 6010 Jan, Prediabetes R73.03 and Obesity E66.9 [facility] [id number] [place] [address] 35005- 8416 Jan, Encounter for immunization Z23 [facility] [id number] [place] [address] 11228- 5946 Jan, [facility] [id number] [place] [address] 98404- 5768 Dec, [facility] [id number] [address]- 8348 Dec, [facility] [id number] [place] [address] 58309- 0947 Nov, Neuropathy G62.9 [facility] [id number], [place] [address]- 9973 Nov, [facility] [id number] [place] [address] 44424- 4158 Nov, Schizoaffective disorder, bipolar type F25.0 [facility] [address], [place] [address]- 5959 Nov, Other care home (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 Z79.899 and Schizoaffective disorder, bipolar type F25.0 [facility] [address] [place] [address] 38443- 7312 Oct, Schizoaffective disorder, bipolar type F25.0 ; Other care home (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 Z79.899 and 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 [facility] [address] [place] [address] [id number] Oct, Dental caries K02.9 [facility] [id number] [place] [address] 77884- 4941 Sep, Neuropathy G62.9 [facility] [address] 84377- 1100 Sep, [facility] [id number] [place] [address] 15518- 6417 Sep, Neuropathy G62.9 [facility] [id number] [place] [address] 72784- 1383 Jul, Schizoaffective disorder, depressive type F25.1 [facility] [id number] [place] [address] 83288- 4700 Jul, GERD (gastroesophageal reflux disease) K21.9 ; Joint pain of lower extremity M25.50 ; Environmental allergies Z91.09 ; Stress incontinence of urine N39.3 ; Neuropathy G62.9 ; Edema R60.9 and Acute pain of left knee M25.562 [facility] [id number] [place] [address] 46834- 8260 Jun, [facility] [address] [place] [address] [id number] Jun, Dental examination Z01.20 [facility] [id number] [place] [address] 74800- 8520 Jun, [facility] [id number] [place] [address] 19481- 1559 May, [facility] [address] 59538- 1765 May, Bipolar 1 disorder F31.9 ; Joint pain of lower extremity M25.50 ; Environmental allergies Z91.09 ; Stress incontinence of urine N39.3 ; Major depressive disorder, single episode, unspecified F32.9 ; Dizzy R42 ; Schizoaffective disorder, unspecified F25.9 ; Neuropathy G62.9 ; Localized edema R60.0 and GERD (gastroesophageal reflux disease) K21.9 [address] [address] 09185- 8704 May, Schizoaffective disorder, depressive type F25.1 [place] [address] 73002- 4298 May, Environmental allergies Z91.09 and Major depressive disorder , single episode, unspecified F32.9 [place] [address] 96850- 7198 Mar, Dental caries K02.9 [address] [address] 27662- 5742 Mar, Dental caries on smooth surface penetrating into pulp K02.63 [facility] [address] 93134 -3464 Mar, Peripheral edema R60.9 and Dry skin L85.3 [address] [address] 27959- 4865 Mar, [address] [address] 96209- 0008 30 Mar, 2016 Major depressive disorder, single episode, unspecified F32.9 [address] [address] 85582- 0888 Mar, Dental caries K02.9 [address] [address] 10501- 4204 07 Mar, 2016 Diabetes mellitus with complication E11.8 ; Urinary frequency R35.0 ; Stress incontinence of urine N39.3 ; Joint pain of lower extremity M25.50 ; Obesity E66.9 ; Environmental allergies Z91.09 ; Depression F32.9 ; Schizoaffective disorder, unspecified F25.9 ; Vaginal discharge N89.8 and Vaginal candidiasis B37.3 [address] [id number] [place] [address] 39569- 2654 Jan, Schizoaffective disorder, unspecified F25.9 [address] [address] 86149- 3040 Jan, [address] [address] 38291- 8982 30 Dec, 2015 [address] [address] 11380- 8292 19 Dec, 2015 Dental caries K02.9 [address] [address] 03260- 9882 14 Dec, 2015 Obesity E66.9 ; Edema R60.9 ; Depression F32.9 ; Bipolar 1 disorder F31.9 ; 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 ; Environmental allergies Z91.09 ; Shortness of breath R06.02 ; Gastroesophageal reflux disease with esophagitis K21.0 ; Other chronic pain G89.29 ; Pain in right knee M25.561 ; Pain in left knee M25.562 and Encounter for immunization Z23 [address] [address] 83097- 8241 Nov, Dental caries K02.9 [address] [address] 36876- 3127 Oct, Schizoaffective disorder, unspecified F25.9 [address] [address] 50744- 8812 Oct, Dental examination Z01.20 [address] [address] 87664- 6618 Sep, Dental examination Z01.20 and Dental caries K02.9 [facility] [address] [place] [address] 94870- 2709 13 Sep, 2015 [facility] [id number] [place] [address] 44423- 7008 09 Sep, 2015 [facility] [id number] [place] [address] 57063- 3882 Sep, [facility] [id number] [place] [address] 17236- 5405 Sep, Schizoaffective disorder, unspecified F25.9 [facility] [id number] [place] [address] 95728- 2466 August, Bipolar disorder, unspecified F31.9 [facility] [id number] [place] [address] 41163- 0910 Jul, Edema R60.9 and Obesity E66.9 [facility] [id number] [place] [address] 97024- 9676 Jul, Edema R60.9 [facility] [id number] [place] [address] 79966- 6823 Jul, Edema R60.9 [facility] [id number] [place] [address] 82476 -9791 Jul, Edema R60.9 [facility] [id number] [place] [address] 54994- 5338 18 Jul, 2015 [facility] [id number] [place] [address] 68271- 6100 Jul, [facility] [id number] [place] [address] 34020- 6112 24 Jun, 2015 Environmental allergies V15.09 and Cough R05 [facility] [id number] [place] [address] 43101- 7638 17 Jun, 2015 Environmental allergies V15.09 ; Edema R60.9 and Cough R05 [facility] [id number] [place] [address] 60226 -4984 12 Jun, 2015 Bronchospasm J98.01 [facility] [address] 89389- 8553 10 Jun, 2015 [facility] [id number] [place] [address] 78344- 0960 09 Jun, 2015 [place] [address] 67397- 6338 08 Jun, 2015 Environmental allergies V15.09 ; Bipolar 1 disorder F31.9 ; GERD (gastroesophageal reflux disease) K21.9 ; Depression F32.9 ; Joint pain of lower extremity M25.50 ; COPD (chronic obstructive pulmonary disease) J44.9 and Screening for diabetes mellitus Z13.1 [place] [address] 05734- 6745 16 Jun, 2015 [place] [address] 10896- 0200 May, [place] [address] 65995- 2813 14 May, 2015 Schizoaffective disorder, unspecified F25.9 and Bipolar 1 disorder F31.9 [address] [id number] [place] [address] 84175- 8065 May, [place] [address] 77654- 3879 May, URI (upper respiratory infection) J06.9 ; Environmental allergies V15.09 and Cough R05 [place] [id number] [place] [address] 89470- 5740 18 Mar, 2015 [place] [address] 67354- 3982 15 Mar, 2015 Vaginal discharge N89.8 [place] [address] 74207- 7816 14 Mar, 2015 Schizoaffective disorder, unspecified F25.9 ; Major depressive disorder, single episode, unspecified F32.9 and Bipolar 1 disorder F31.9 [place] [id number] [place] [address] 87610- 1167 Mar, [place] [address] 98181- 6505 Mar, Bipolar 1 disorder F31.9 [place] [address] 84941- 4117 Jan, [place] [address] 55764- 5680 Jan, Allergic rhinitis J30.9 and Cough R05 [place] [address] 22508- 0354 Jan, 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 ; Bipolar 1 disorder F31.9 ; GERD ( gastroesophageal reflux disease) K21.9 ; Depression F32.9 and Joint pain of lower extremity M25.50 [place] [address] 80751- 4276 28 Dec, 2014 Encounter for immunization Z23 [address] 37959- 6135 02 Dec, 2014 Schizoaffective disorder, unspecified 295.70 ; Pain in joint , lower leg 719.46 ; Esophageal reflux 530.81 ; Bipolar 1 disorder 296.7 ; Depression 311 ; GERD (gastroesophageal reflux disease) 530.81 and Environmental allergies V15.09 [facility] [id number] [place] [address] [id number] Nov, Dental examination V72.2 [place] [address] 38334- 1929 Nov, Acute bronchitis 466.0 [place] [address] 00645- 6316 Nov, Schizoaffective disorder, unspecified 295.70 and Bipolar disorder, unspecified 296.80 [facility] [address] [id number] Sep, Dental examination V72.2 [facility] [id number] [place] [address] [id number] August, Dental examination V72.2 [facility] [id number] [place] [address] 21691- 2426 August, Schizoaffective disorder, unspecified 295.70 [facility] [id number] [place] [address] 74354- 0456 August, [facility] [id number] [place] [address] 94772- 8736 August, Vomiting 787.03 [facility] [id number] [place] [address] 38278- 0656 August, Vomiting and diarrhea 787.03 and High risk medication use V58.69 [facility] [id number] [place] [address] 09718- 3043 Jul, [facility] [id number] [place] [address] 36000- 8161 Jul, [facility] [id number] [place] [address] 94490- 9670 Jul, [facility] [address] [address]- 2356 Jun, [facility] [id number] [place] [address] 60454- 3456 Jun, [facility] [address] [place] [address] 11096- 6955 Jun, [facility] [id number] [place] [address] 66430- 4296 Jun, [facility] [address] [address]- 9296 Jun, [facility] [id number] [place] [address] [place] [address]- 6070 13 Jun, 2014 [facility] [place] [facility] [address] [id number] [place] [address]- 9876 13 Jun, 2014 [facility] [place] [facility] [address] [id number] [place]- 1886 Jun, 2014 [facility] [place] [facility] [address] [id number] [place] [address]- 8376 Jun, 2014 [facility] [place] [facility] [address] [id number] [place] [address]- 5028 Mar, [facility] [place] [facility] [address] [id number] [place] [address]- 2397 Mar, [facility] [place] [facility] [address] [id number] [place] [address]- 4921 Mar, [facility] [place] [facility] [address] [id number] [place] [address]- 7855 Mar, [facility] [place] [facility] [address] [id number] [place] [address]- 3253 Mar, [facility] [place] [facility] [address] [id number] [place] [address]- 0062 Mar, [facility] [place] [facility] [address] [facility] [id number] [place] [address]- 5341 Mar, [facility] [place] [facility] [address] [id number] [place] [address]- 7446 Mar, [facility] [place] [facility] [address] [id number] [place] [address]- 8090 Mar, [facility] [place] [facility] [address] [id number] [place] [address]- 1873 Mar, [facility] [place] [facility] [address] [id number] [place]- 5493 Jan, [facility] [place] [facility] [address] [id number] [place]- 5870 Jan, [facility] [place] [facility] [address] [id number] [place] [address]- 3645 Jan, [facility] [place] [facility] [address] [id number] [place] [address]- 7252 Jan, [facility] [place] [facility] [address] [id number] [place] [address]- 4972 Jan, [facility] [place] [facility] [address] [id number] [place] [address]- 1519 Jan, [facility] [place] [facility] [address] [id number] [place] [address]- 1676 Jan, [facility] [place] [facility] [address] [id number] [place] [address]- 0096 Jan, [facility] [place] [facility] [address] [id number] [place] [address]- 1555 19 Dec, 2013 [facility] [place] [facility] [address] [id number] [place] [address]- 1970 19 Dec, 2013 [facility] [place] [facility] [address] [id number] [place] [address]- 2145 15 Dec, 2013 [facility] [place] [facility] [address] [id number] [place] [address] 15 Dec, 2013 [facility] [place] [facility] [address] [id number] [place] [address] 15 Dec, 2013 [facility] [place] [facility] [address] [id number] [address] 15 Dec, 2013 [facility] [place] [facility] [address] [id number] [place] [address] 12 Dec, 2013 [facility] [place] [facility] [address] [id number] [place] [address] 12 Dec, 2013 [facility] [place] [facility] [address] [id number] [place] [address] 03 Dec, 2013 [facility] [place] [facility] [address] [id number] [place] [address] Dec, [facility] [place] [facility] [address] [id number] [place] [address] Nov, [facility] [place] [facility] [address] [id number] [place] [address] Nov, [facility] [place] [facility] [address] [id number] [place] [address] Nov, [facility] [place] [facility] [address] [id number] [place] [address] Nov, [facility] [place] [facility] [address] [id number] [place] [address] Oct, [facility] [place] [facility] [address] [id number] [place] [address] Oct, [facility] [place] [facility] [address] [id number] [place] [address] Oct, [facility] [place] [facility] [address] [id number] [place] [address] Oct, [facility] [place] [facility] [address] [id number] [place] [address]- [address] Sep, [facility] [place] [facility] [address] [id number] [place] [address] Sep, [facility] [place] [facility] [address] [id number] [place] [address] Sep, [facility] [place] [facility] [address] [id number] [place] [address]- [address] Sep, [facility] [place] [facility] [address] [id number] [place] [address] Sep, [facility] [place] [facility] [address] [id number] [place] [address] Sep, [facility] [place] [facility] [address] [id number] [place] [address]- [address] Sep, [facility] [place] [facility] [address] [id number] [place] [address] Sep, [facility] [address] [id number] [place] [address] August, [facility] [place] [facility] [address] [id number] [place] [address] August, [facility] [address] [id number] [place] [address] Jul, [facility] [place] [facility] [address] [id number] [place] [address] Jul, [facility] [place] [facility] [address] [id number] [place] [address] Jul, [facility] [place] [facility] [address] [id number] [place] [address] Jul, [facility] [place] [facility] [address] [id number] [place] [address] Jul, [facility] [address] [id number] [place] [address] Jul, [facility] [place] [facility] [address] [id number] [place] [address] Jul, [facility] [address] [id number] [place] [address] Jul, [facility] [place] [facility] [address] [id number] [place] [address] Jul, [facility] [place] [facility] [address] [id number] [place] [address] Jul, [facility] [place] [facility] [address] [id number] [place] [address] Jun, [facility] [place] [facility] [address] [id number] [place] [address] Jun, [facility] [place] [facility] [address] [id number] [place] [address] Jun, [facility] [place] [facility] [address] [id number] [place] [address] 18 Jun, 2013 [facility] [place] [facility] [address] [id number] [place] [address] 17 Jun, 2013 [facility] [place] [facility] [address] [id number] [place] [address] 7967 17 Jun, 2013 [facility] [place] [facility] [address] [id number] [place] [address] 4416 17 Jun, 2013 [facility] [place] [facility] [address] [id number] [place] [address] 17 Jun, 2013 [facility] [place] [facility] [address] [id number] [place] [address]- [address]1 14 Jun, 2013 [facility] [place] [facility] [address] [id number] [place] [address]- 6657 14 Jun, 2013 [facility] [place] [facility] [address] [id number] [place] [address] 1473 Jun, [facility] [place] [facility] [address] [id number] [place] [address] 57[address] Jun, [facility] [place] [facility] [address] [id number] [place] [address] Jun, [facility] [place] [facility] [address] [id number] [place] [address] 2483 Jun, [facility] [place] [facility] [address] [id number] [place] [address] 2408 Jun, [facility] [place] [facility] [address] [id number] [place] [address] 6830 Jun, [facility] [place] [facility] [address] [id number] [place] [address] 7836 May, [facility] [place] [facility] [address] [id number] [place] [address]- 2508 May, [facility] [place] [facility] [address] [id number] [place] [address] 6[address] May, [facility] [address] [id number] [place] [address]- 5003 May, [facility] [place] [facility] [address] [id number] [place] [address] Mar, [facility] [address] [id number] [place] [address]339 Mar, [facility] [place] [facility] [address] [id number] [place] [address] Mar, [facility] [address] [id number] [place] [address]- 0359 Mar, [facility] [place] [facility] [address] [id number] [place] [address] 8871 Mar, [facility] [address] [id number] [place] [address] Mar, [facility] [address] [id number] [place] [address] 5[address] Mar, [facility] [place] [facility] [address] [id number] [place] [address]774 Mar, [facility] [address] [id number] [place] [address]6 Jan, [facility] [place] [facility] [address] [id number] [place] [address] 0078 Jan, [facility] [place] [facility] [address] [id number] [place] [address] 8370 Jan, [facility] [place] [facility] [address] [id number] [place] [address] 05[address] Jan, [facility] [place] [facility] [address] [id number] [place] [address] Jan, [facility] [place] [facility] [address] [id number] [place] [address]- 2264 Jan, [facility] [place] [facility] [address] [id number] [place] [address] 6689 Jan, [facility] [place] [facility] [address] [id number] [place] [address] 2094 Dec, [facility] [place] [facility] [address] [id number] [place] [address] 7883 Nov, [facility] [place] [facility] [address] [id number] [place] [address] 8346 Oct, [facility] [address] [id number] [place] [address] 1998 Oct, [facility] [place] [facility] [address] [id number] [place] [address] 0444 Sep, [facility] [place] [facility] [address] [id number] [place] [address] 8155 Sep, [facility] [place] [facility] [address] [id number] [place] [address] 5716 Sep, [facility] [place] [facility] [address] [id number] [place] [address] 3218 August, [facility] [place] [facility] [address] [id number] [place] [address] 2053 Jun, [facility] [place] [facility] [address] [id number] [place] [address]- 2758 Jun, [facility] [place] [facility] [address] [id number] [address] Jun, [facility] [place] [facility] [address] [id number] [place] [address]- 8492 Jun, [facility] [place] [facility] [address] [id number] [place] [address]- 7858 Jun, [facility] [place] [facility] [address] [id number] [place] [address]- 3206 Jun, [facility] [place] [facility] [address] [id number] [place] [address]- 9087 07 Jun, 2012 [facility] [address] [id number] [place] [address]- 6434 May, [facility] [address] [id number] [place] [address]- 2678 May, [facility] [address] [id number] [place] [address]- 4236 May, [facility] [address] [id number] [place] [address]- 9931 May, [facility] [address] [id number] [place] [address]- 7827 May, [facility] [address] [id number] [place] [address] 1380 May, [facility] [address] [id number] [place] [address]- 9431 May, [facility] [address] [id number] [place] [address]- 6682 Mar, [facility] [address] [id number] [place] [address]- 2465 Mar, [facility] [address] [id number] [place] [address]- 1147 Mar, [facility] [address] [id number] [place] [address]- 4361 Mar, [facility] [address] [id number] [place] [address]- 9710 Mar, [facility] [address] [id number] [place] [address]- 1791 Mar, [facility] [place] [facility] [address] [id number] [place] [address]- 1396 Mar, [facility] [address] [id number] [place] [address]- 3681 Mar, [facility] [place] [facility] [address] [id number] [place] [address]- 8387 Mar, [facility] [place] [facility] [address] [id number] [place] [address]- 8929 Mar, [facility] [place] [facility] [address] [id number] [place] [address]- 7041 Mar, [facility] [place] [facility] [address] [id number] [place] [address], [place] [address]- 8520 Mar, [facility] [place] [facility] [address] [id number] [place] [address]- 3500 Mar, [facility] [place] [facility] [address] [id number] [place] [address]- 4582 Mar, [facility] [place] [facility] [address] [id number] [place] [address]- 0455 Mar, [facility] [place] [facility] [address] [id number] [place] [address]- 3290 Mar, [facility] [place] [facility] [address] [id number] [place] [address]- 9204 Mar, [facility] [place] [facility] [address] [id number] [place] [address]- 4308 Mar, [facility] [place] [facility] [address] [id number] [place] [address]- 1642 Mar, [facility] [place] [facility] [address] [id number] [place] [address]- 6872 Jan, [facility] [place] [facility] [address] [id number] [place] [address]- 4647 Jan, [facility] [place] [facility] [address] [id number] [place] [address]- 6902 Jan, [facility] [place] [facility] [address] [id number] [place] [address]- 6791 Jan, [facility] [place] [facility] [address] [id number], [place] [address] Dec, [facility] [address] [id number] [address] Dec, [facility] [id number] [address] Dec, [facility] [id number], [place] [address] Nov, [facility] [id number], [place] [address] 8021 Nov, [facility] [id number], [place] [address]- 5921 Oct, [facility] [id number] [place] [address]2346- [address]336 Oct, [facility] [id number], [place] [address] 9663 Oct, [facility] [id number], [place] [address]- 1190 Oct, [facility] [id number], [place] [address]- [address]80 Oct, [facility] [address], [place] [address] 1287 Oct, IMMUNIZATIONS No Known Immunizations SOCIAL HISTORY Never Assessed REASON FOR VISIT Lab (walk-in) PLAN OF CARE VITAL SIGNS MEDICATIONS Unknown Medications RESULTS No Results PROCEDURES Procedure Date Ordered Result Body Site LAB NOT BILLED BY [facility] November 21, 2017 INSTRUCTIONS MEDICATIONS ADMINISTERED No Known Medications [...]
--- OUTSIDE RECORDS SUMMARY | 2018-05-15 06:19 | XMS REPORT ---
Author Author RAY NEVAREZ [facility] Address [address] [place] [address] Care Team Providers Care [employer] Fin[employer] Supervisor Name Role Phone RAY NEVAREZ Unavailable PROBLEMS Type Condition ICD9-CM Code [id number] Code Onset Dates Condition Status SNOMED Code Problem Major depressive disorder, single episode, unspecified F32.9 Active 40272820 Problem Schizoaffective disorder, bipolar type F25.0 Active 62509856 Problem Neuropathy G62.9 Active 869173301 Problem COPD suggested by initial evaluation J44.9 Active 21173964 Problem Body mass index (BMI) of 45.0-49.9 in adult Z68.42 Active 167089021 Problem Post-menopausal bleeding N95.0 Active 99634006 Problem 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 Active 381429411 Problem Morbid (severe) obesity due to excess calories E66.01 Active 490583718 Problem Primary osteoarthritis of left knee M17.12 Active 695904751 Problem Obstructive sleep apnea G47.33 Active 72356415 Problem Bipolar 1 disorder F31.9 Active 773077935 Problem Edema R60.9 Active 639459417 Problem Depression F32.9 Active 21566006 Problem Obesity E66.9 Active 644745694 Problem GERD (gastroesophageal reflux disease) K21.9 Active 215031675 Problem Environmental allergies Z91.09 Active 091292468 ALLERGIES No Information ENCOUNTERS Encounter Location Date Diagnosis [facility] [address] [address] Jan, [facility] [address] [place] [address] 07434- 6230 Nov, [facility] [address] [address] 4288 Nov, [facility] [address] [place] [address] 05801- 1293 Oct, [facility] [id number] [place] [address] 23501- 8111 Oct, [facility] [id number] [place] [address] 21208- 5206 Oct, Other residential (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 Z79.899 [facility] [id number] [place] [address] 84139- 6970 Oct, Schizoaffective disorder, bipolar type F25.0 ; 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 and Other residential (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 Z79.899 [facility] [id number] [place] [address] 30853- 0900 Oct, Prediabetes R73.03 ; COPD suggested by initial evaluation J44.9 ; BMI 45.0-49.9, adult Z68.42 and Obstructive sleep apnea G47.33 [facility] [id number] [place] [address] 94525- 1511 Sep, [facility] [id number] [place] [address] 08052- 9780 August, Neuropathy G62.9 [facility] [id number] [place] [address] 99889- 0836 August, [facility] [id number] [place] [address] 39200- 4384 August, [facility] [id number] [place] [address] 82563- 3050 Jul, [facility] [id number] [place] [address] 36658- 8839 Jul, Primary osteoarthritis of left knee M17.12 [facility] [id number] [place] [address] 84353- 5977 Jul, Schizoaffective disorder, bipolar type F25.0 and 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 [facility] [address] [address]- 1471 Jul, Prediabetes R73.03 ; Primary osteoarthritis of left knee M17.12 ; GERD (gastroesophageal reflux disease) K21.9 ; Bipolar 1 disorder F31.9 ; Depression F32.9 ; Environmental allergies Z91.09 ; Neuropathy G62.9 ; Edema R60.9 ; Body mass index (BMI) of 45.0-49.9 in adult Z68.42 and Morbid ( severe) obesity due to excess calories E66.01 [place] [address] 55607- 4286 Jul, [place] [address] 29871- 1886 Jun, [place] [address] 46636- 0805 Jun, [place] [address] 68109- 0550 Jun, Wound of right breast, initial encounter S21.001A and Prediabetes R73.03 [place] [address] 80122- 5233 Jun, [place] [address] 40684- 7200 May, GERD (gastroesophageal reflux disease) K21.9 [place] [address] 53393- 4438 May, Primary osteoarthritis of left knee M17.12 [place] [address] 71313- 5922 May, Schizoaffective disorder, bipolar type F25.0 and 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 [place] [address] 16714- 9648 May, Left medial knee pain M25.562 ; GERD (gastroesophageal reflux disease) K21.9 ; Depression F32.9 ; Neuropathy G62.9 ; Obesity E66.9 ; Prediabetes R73.03 and Edema R60.9 [place] [address] [address] 4278 14 Mar, 2017 [place] [id number] [place] [address] 12005- 2140 Mar, [place] [id number] [place] [address] 80205- 0209 Mar, Post-menopausal bleeding N95.0 and BMI 50.0-59.9, adult Z68.43 [place] [id number] [place] [address] 38691- 5022 Mar, [place] [facility] [id number] [place] [address] 46871- 3262 Mar, Schizoaffective disorder, bipolar type F25.0 and 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 [place] [id number] [place] [address] 73415- 9922 Mar, [place] [id number] [place] [address] 48312- 0240 Mar, [place] [id number] [place] [address] 01917- 9662 Mar, Post-menopausal bleeding N95.0 ; Screening breast examination Z12.31 ; Screen for STD (sexually transmitted disease) Z11.3 ; Obesity E66.9 ; Family history of ovarian cancer Z80.41 and Family history of cervical cancer Z80.49 [place] [address] [address]- 1543 Mar, [place] [id number] [place] [address] 79619- 4163 Mar, [place] [id number] [place] [address] 34726- 6644 Jan, Schizoaffective disorder, bipolar type F25.0 and 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 [place] [address] [place] [address]- 5704 Jan, Schizoaffective disorder, bipolar type F25.0 [facility] [id number] [place] [address] 32964- 8562 Jan, [facility] [id number] [place] [address] 45342- 1017 Jan, Prediabetes R73.03 and Obesity E66.9 [facility] [id number] [place] [address] 69360- 1416 Jan, Encounter for immunization Z23 [facility] [id number] [place] [address] 15001- 7248 Jan, [facility] [id number] [place] [address] 30375- 6659 Dec, [facility] [id number] [place] [address] 90942- 6537 Dec, [facility] [id number] [place] [address] 60952- 5205 Nov, Neuropathy G62.9 [facility] [id number] [place] [address] 60798- 6031 Nov, [facility] [id number] [place] [address] 73146- 0127 Nov, Schizoaffective disorder, bipolar type F25.0 [facility] [id number] [place] [address] 13145- 2024 Nov, 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 and Schizoaffective disorder, bipolar type F25.0 [facility] [id number] [place] [address] 94724- 5162 Oct, Schizoaffective disorder, bipolar type F25.0 ; Other residential (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 Z79.899 and 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 [facility] [id number] [place] [address] [id number] Oct, Dental caries K02.9 [facility] [address] [place] [address] 07987- 9460 Sep, Neuropathy G62.9 [facility] [id number] [place] [address] 37206- 5528 Sep, [facility] [id number] [place] [address] 72861- 5954 Sep, Neuropathy G62.9 [place] [id number] [place] [address] 55183- 9171 Jul, Schizoaffective disorder, depressive type F25.1 [place] [id number] [place] [address] 81214- 8842 Jul, GERD (gastroesophageal reflux disease) K21.9 ; Joint pain of lower extremity M25.50 ; Environmental allergies Z91.09 ; Stress incontinence of urine N39.3 ; Neuropathy G62.9 ; Edema R60.9 and Acute pain of left knee M25.562 [place] [address] [place] [address] 42228- 3673 Jun, [facility] [address] [place] [address] [id number] Jun, Dental examination Z01.20 [facility] [address] [place] [address] 15812- 8902 Jun, [facility] [address] [place] [address] 42594- 9305 May, [facility] [address] [place] [address] 15170- 7779 May, Bipolar 1 disorder F31.9 ; Joint pain of lower extremity M25.50 ; Environmental allergies Z91.09 ; Stress incontinence of urine N39.3 ; Major depressive disorder, single episode, unspecified F32.9 ; Dizzy R42 ; Schizoaffective disorder, unspecified F25.9 ; Neuropathy G62.9 ; Localized edema R60.0 and GERD (gastroesophageal reflux disease) K21.9 [place] [id number] [place] [address] 42933- 1726 May, Schizoaffective disorder, depressive type F25.1 [place] [address] 54440- 8228 May, Environmental allergies Z91.09 and Major depressive disorder , single episode, unspecified F32.9 [place] [address] 03001- 2517 Mar, Dental caries K02.9 [place] [address] 839920- 0240 Mar, Dental caries on smooth surface penetrating into pulp K02.63 [facility] [address] 31598 -5927 Mar, Peripheral edema R60.9 and Dry skin L85.3 [place] [address] 92010- 0424 Mar, [place] [address] 16473- 5267 30 Mar, 2016 Major depressive disorder, single episode, unspecified F32.9 [place] [address] 58638- 0535 Mar, Dental caries K02.9 [place] [address] 74277- 7843 07 Mar, 2016 Diabetes mellitus with complication E11.8 ; Urinary frequency R35.0 ; Stress incontinence of urine N39.3 ; Joint pain of lower extremity M25.50 ; Obesity E66.9 ; Environmental allergies Z91.09 ; Depression F32.9 ; Schizoaffective disorder, unspecified F25.9 ; Vaginal discharge N89.8 and Vaginal candidiasis B37.3 [place] [address] 53433- 1877 Jan, Schizoaffective disorder, unspecified F25.9 [place] [id number] [place] [address] 06086- 0163 17 Jan, 2016 [place] [address] 31452- 5665 30 Dec, 2015 [place] [address] 88898- 1464 19 Dec, 2015 Dental caries K02.9 [place] [address] 09090- 8930 14 Dec, 2015 Obesity E66.9 ; Edema R60.9 ; Depression F32.9 ; Bipolar 1 disorder F31.9 ; 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 ; Environmental allergies Z91.09 ; Shortness of breath R06.02 ; Gastroesophageal reflux disease with esophagitis K21.0 ; Other chronic pain G89.29 ; Pain in right knee M25.561 ; Pain in left knee M25.562 and Encounter for immunization Z23 [place] [address] 58326- 4852 Nov, Dental caries K02.9 [place] [address] 21724- 0517 21 Oct, 2015 Schizoaffective disorder, unspecified F25.9 [place] [id number] [place] [address] 34118- 6099 Oct, Dental examination Z01.20 [place] [address] 14686- 5216 20 Sep, 2015 Dental examination Z01.20 and Dental caries K02.9 [place] [address] 25647- 9525 13 Sep, 2015 [place] [address] 79167- 2309 09 Sep, 2015 [place] [address] 90139- 3284 Sep, [facility] [id number] [place] [address] 30152- 5155 Sep, Schizoaffective disorder, unspecified F25.9 [facility] [id number] [place] [address] 98650- 5656 August, Bipolar disorder, unspecified F31.9 [facility] [id number] [place] [address] 71217- 1852 Jul, Edema R60.9 and Obesity E66.9 [facility] [id number] [place] [address] 81040- 6750 Jul, Edema R60.9 [facility] [address] 70560- 7384 Jul, Edema R60.9 [facility] [address] 97275 -7055 Jul, Edema R60.9 [facility] [id number] [place] [address] 32052- 2990 Jul, [facility] [address] 72553- 2557 Jul, [facility] [id number] [place] [address] 12726- 0540 24 Jun, 2015 Environmental allergies V15.09 and Cough R05 [facility] [id number] [place] [address] 04207- 0218 17 Jun, 2015 Environmental allergies V15.09 ; Edema R60.9 and Cough R05 [facility] [id number] [place] [address] 72941 -4671 12 Jun, 2015 Bronchospasm J98.01 [facility] [id number] [place] [address] 59862- 7876 10 Jun, 2015 [facility] [id number] [place] [address] 96744- 3036 09 Jun, 2015 [place] [id number] [place] [address] 07523- 1421 Jun, Environmental allergies V15.09 ; Bipolar 1 disorder F31.9 ; GERD (gastroesophageal reflux disease) K21.9 ; Depression F32.9 ; Joint pain of lower extremity M25.50 ; COPD (chronic obstructive pulmonary disease) J44.9 and Screening for diabetes mellitus Z13.1 [place] [address] 81395- 1993 16 Jun, 2015 [place] [address] 76862- 0403 May, [address] 49011- 3051 May, Schizoaffective disorder, unspecified F25.9 and Bipolar [address] disorder [address]31[address] 11356- 9840 May, [address] 32956- 7261 May, URI (upper respiratory infection) J06.9 ; Environmental allergies V15.09 and Cough R05 [place] [id number] [place] [address] 71217- 4333 18 Mar, 2015 [place] [id number] [place] [address] 60329- 5565 15 Mar, 2015 Vaginal discharge N89.[address] 73822- 9584 14 Mar, 2015 Schizoaffective disorder, unspecified F25.9 ; Major depressive disorder, single episode, unspecified F32.9 and Bipolar 1 disorder F31.9 [place] [id number] [place] [address] 06305- 2799 30 Mar, 2015 [place] [id number] [place] [address] 61741- 7377 Mar, Bipolar 1 disorder F31.9 [facility] [id number] [place] [address] 56220- 1754 Jan, [place] [address] 57925- 4570 Jan, Allergic rhinitis J30.9 and Cough R05 [place] [address] 25821- 5514 Jan, 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 ; Bipolar 1 disorder F31.9 ; GERD ( gastroesophageal reflux disease) K21.9 ; Depression F32.9 and Joint pain of lower extremity M25.50 [place] [address] 12865- 6171 Dec, Encounter for immunization Z23 [place] [address] 82838- 1345 Dec, Schizoaffective disorder, unspecified 295.70 ; Pain in joint , lower leg 719.46 ; Esophageal reflux 530.81 ; Bipolar 1 disorder 296.7 ; Depression 311 ; GERD (gastroesophageal reflux disease) 530.81 and Environmental allergies V15.09 [facility] [address] [id number] Nov, Dental examination V72.2 [place] [address] 03442- 6165 Nov, Acute bronchitis 466.0 [place] [address] 18918- 3904 Nov, Schizoaffective disorder, unspecified 295.70 and Bipolar disorder, unspecified 296.80 [facility] [id number] [place] [address] [id number] Sep, Dental examination V72.2 [facility] [address] [id number] August, Dental examination V72.2 [place] [address] 15114- 8392 August, Schizoaffective disorder, unspecified 295.70 [facility] [address] [address]- 4477 August, [facility] [id number] [place] [address] 33400- 5718 August, Vomiting 787.03 [facility] [id number] [place] [address] 90834- 6480 August, Vomiting and diarrhea 787.03 and High risk medication use V58.69 [facility] [address] [place] [address] 66378- 2146 Jul, [facility] [id number] [place] [address] 74573- 2810 Jul, [facility] [id number] [place] [address] 57781- 9977 Jul, [facility] [id number] [place] [address] 66657- 0331 Jun, [facility] [address] [place] [address] 82426- 5109 Jun, [facility] [id number] [place] [address] 98261- 8930 Jun, [facility] [address] [address]- 1261 Jun, [facility] [id number] [place] [address] 23301- 3313 Jun, [facility] [address]- 4102 Jun, [facility] [id number] [place] [address] 81380- 8411 Jun, [facility] [address] [address]- 4522 Jun, [facility] [address] [address] [place] [address]- 2868 Jun, [facility] [address] [id number] [place] [address]- 8012 Mar, [facility] [place] [facility] [address] [id number] [place] [address]- 5575 Mar, [facility] [place] [facility] [address] [id number] [place] 5857 Mar, [facility] [place] [facility] [address] [id number] [place] [address]- 9902 Mar, [facility] [place] [facility] [address] [id number] [place] [address]- 9720 Mar, [facility] [place] [facility] [address] [id number] [place] [address]- 8681 Mar, [facility] [place] [facility] [address] [facility] [id number] [place] [address]- 8648 Mar, [facility] [place] [facility] [address] [id number] [place] [address]- 0716 Mar, [facility] [place] [facility] [address] [id number] [place] [address]- 0451 Mar, [facility] [place] [facility] [address] [facility] [id number] [place] [address]- 1585 Mar, [facility] [place] [facility] [address] [id number] [place] [address]- 7469 31 Jan, 2014 [facility] [place] [facility] [address] [id number] [place] [address]- 0513 31 Jan, 2014 [facility] [place] [facility] [address] [id number] [place] [address]- 4851 31 Jan, 2014 [facility] [place] [facility] [address] [id number] [place] [address]- 5777 31 Jan, 2014 [facility] [place] [facility] [address] [id number] [place] [address]- 3431 14 Jan, 2014 [facility] [place] [facility] [address] [id number] [place] [address]- 3774 14 Jan, 2014 [facility] [place] [facility] [address] [id number] [place] [address]- 3026 09 Jan, 2014 [facility] [place] [facility] [address] [id number] [place] [address]- 7201 09 Jan, 2014 [facility] [place] [facility] [address] [id number] [place] [address]- 0537 19 Dec, 2013 [facility] [place] [facility] [address] [id number] [place] [address]- 6461 19 Dec, 2013 [facility] [place] [facility] [address] [id number] [place] [address]- 8994 15 Dec, 2013 [facility] [place] [facility] [address] [id number] [place] [address]- 0321 15 Dec, 2013 [facility] [place] [facility] [address] [id number] [place] [address]- 4559 15 Dec, 2013 [facility] [place] [facility] [address] [id number] [place] [address]- 2485 15 Dec, 2013 [facility] [place] [facility] [address] [id number] [place] [address]- 1368 12 Dec, 2013 [facility] [place] [facility] [address] [id number] [place] [address]- 4028 12 Dec, 2013 [facility] [place] [facility] [address] [id number] [address]- 0098 03 Dec, 2013 [facility] [place] [facility] [address] [id number] [place] [address]- 2782 Dec, [facility] [place] [facility] [address] [id number] [place] [address]- 9802 Nov, [facility] [place] [facility] [address] [id number] [place] [address]- 4591 Nov, [facility] [place] [facility] [address] [id number] [place] [address]- 0849 Nov, [facility] [place] [facility] [address] [id number] [place] [address] Nov, [facility] [place] [facility] [address] [id number] [place] [address] Oct, [facility] [place] [facility] [address] [id number] [place] [address] Oct, [facility] [place] [facility] [address] [id number] [place] [address] Oct, [facility] [place] [facility] [address] [id number] [place] [address] Oct, [facility] [place] [facility] [address] [id number] [place] [address] Sep, [facility] [place] [facility] [address] [id number] [place] [address] Sep, [facility] [place] [facility] [address] [id number] [place] [address] Sep, [facility] [place] [facility] [address] [id number] [place] [address] Sep, [facility] [place] [facility] [address] [id number] [place] [address] Sep, [facility] [place] [facility] [address] [id number] [place] [address] Sep, [facility] [place] [facility] [address] [id number] [place] [address] Sep, [facility] [place] [facility] [address] [id number] [place] [address]- [address] Sep, [facility] [place] [facility] [address] [id number] [place] [address] August, [facility] [place] [facility] [address] [id number] [place] [address] August, [facility] [place] [facility] [address] [id number] [place] [address] 30 Jul, 2013 [facility] [place] [facility] [address] [id number] [place] [address] Jul, [facility] [place] [facility] [address] [id number] [place] [address] Jul, [facility] [place] [facility] [address] [id number] [place] [address]- [address] Jul, [facility] [place] [facility] [address] [id number] [place] [address] Jul, [facility] [place] [facility] [address] [id number] [place] [address] Jul, [facility] [place] [facility] [address] [id number] [place] [address] Jul, [facility] [place] [facility] [address] [id number] [place] [address] Jul, [facility] [place] [facility] [address] [id number] [place] [address] Jul, [facility] [place] [facility] [address] [id number] [place] [address] Jul, [facility] [place] [facility] [address] [id number] [place] [address] Jun, [facility] [place] [facility] [address] [id number] [place] [address] Jun, [facility] [place] [facility] [address] [id number] [place] [address] 18 Jun, 2013 [facility] [place] [facility] [address] [id number] [place] [address]- [address] 18 Jun, 2013 [facility] [place] [facility] [address] [id number] [place] [address]- [address] 17 Jun, 2013 [facility] [place] [facility] [address] [id number] [place] [address] Jun, [facility] [place] [facility] [address] [id number] [place] [address] 17 Jun, 2013 [facility] [place] [facility] [address] [id number] [place] [address] 17 Jun, 2013 [facility] [place] [facility] [address] [id number] [place] [address] 14 Jun, 2013 [facility] [place] [facility] [address] [id number] [place] [address] 14 Jun, 2013 [facility] [place] [facility] [address] [id number] [place] [address]69 Jun, [facility] [place] [facility] [address] [id number] [place] [address] Jun, [facility] [place] [facility] [address] [id number] [place] [address]687 Jun, [facility] [place] [facility] [address] [id number] [place] [address] Jun, [facility] [place] [facility] [address] [id number] [place] [address] Jun, [facility] [place] [facility] [address] [id number] [place] [address] Jun, [facility] [place] [facility] [address] [id number] [place] [address] May, [facility] [place] [facility] [address] [id number] [place] [address]- [address] May, [facility] [place] [facility] [address] [id number] [place] [address]- 7931 May, [facility] [place] [facility] [address] [id number] [place] [address]- [address] May, [facility] [place] [facility] [address] [id number] [place] [address] Mar, [facility] [place] [facility] [address] [id number] [place] [address] 70[address] Mar, [facility] [address] [id number] [place] [address]- 6985 Mar, [facility] [address] [id number] [place] [address]- 289[address] Mar, [facility] [address] [id number] [place] [address]- 6883 Mar, [facility] [address] [id number] [place] [address] 2548 Mar, [facility] [address] [id number] [place] [address]996 Mar, [facility] [address] [id number] [place] [address]- 0069 Mar, [facility] [address] [id number] [place] [address] Jan, [facility] [address] [id number] [place] [address] 9131 Jan, [facility] [address] [id number] [place] [address] Jan, [facility] [address] [id number] [place] [address] Jan, [facility] [address] [id number] [place] [address]- 8470 Jan, [facility] [address] [id number] [place] [address] 9932 Jan, [facility] [place] [facility] [address] [id number] [place] [address]- 4430 Jan, [facility] [place] [facility] [address] [id number] [place] [address]- [address]46 Dec, [facility] [address] [id number] [place] [address] 6293 Nov, [facility] [place] [facility] [address] [id number] [place] [address] 2875 Oct, [facility] [place] [facility] [address] [id number] [place] [address] 3445 Oct, [facility] [place] [facility] [address] [id number] [place] [address]- 2564 Sep, [facility] [place] [facility] [address] [id number] [place] [address]- 6527 Sep, [facility] [place] [facility] [address] [id number] [place] [address]- 9710 Sep, [facility] [place] [facility] [address] [id number] [place] [address]- 2417 August, [facility] [place] [facility] [address] [id number] [place] [address]- 4667 Jun, [facility] [place] [facility] [address] [id number] [place] [address] 6258 Jun, [facility] [place] [facility] [address] [id number] [place] [address]- [address]56 Jun, [facility] [place] [facility] [address] [id number] [place] [address]- 3304 Jun, [facility] [place] [facility] [address] [id number] [place] [address]- 1391 Jun, [facility] [place] [facility] [address] [id number] [place] [address]- 8635 Jun, [facility] [place] [facility] [address] [id number] [place] [address]- 6818 Jun, [facility] [place] [facility] [address] [id number] [place] [address]- [address] May, [facility] [place] [facility] [address] [id number] [place] [address]- 3024 May, [facility] [place] [facility] [address] [id number] [place] [address]- 9164 14 May, 2012 [facility] [address] [id number] [place] [address]- 1428 May, [facility] [place] [facility] [address] [id number] [place] [address]- 1725 May, [facility] [address] [id number] [place] [address]- 3784 May, [facility] [place] [facility] [address] [id number] [place] [address]- 0512 May, [facility] [address] [id number] [place] [address]- 8899 Mar, [facility] [address] [id number] [place] [address]- 5167 Mar, [facility] [address] [id number] [place] [address] 4645 Mar, [facility] [address] [id number] [place] [address]- 8199 Mar, [facility] [place] [facility] [address] [id number] [place] [address]- 4373 Mar, [facility] [address] [facility] [id number] [place] [address]- 5686 Mar, [facility] [place] [facility] [address] [id number] [place] [address]- 9484 Mar, [facility] [place] [facility] [address] [id number] [place] [address]- 1182 Mar, [facility] [place] [facility] [address] [id number] [place] [address]- 0786 Mar, [facility] [place] [facility] [address] [id number] [place] [address]- 8946 Mar, [facility] [address] [id number] [place] [address]- 8082 Mar, [facility] [place] [facility] [address] [id number] [place] [address]- 2911 Mar, [facility] [place] [facility] [address] [id number] [place] [address]- 0688 Mar, [facility] [place] [facility] [address] [id number] [place] [address]- 5086 Mar, [facility] [place] [facility] [address] [id number] [place] [address], [place] [address]- 1510 Mar, [facility] [place] [facility] [address] [id number] [place] [address]- 6305 Mar, [facility] [place] [facility] [address] [id number] [place] [address]- 6094 Mar, [facility] [place] [facility] [address] [id number] [place] [address]- 1245 Mar, [facility] [place] [facility] [address] [id number] [place] [address]- 4539 Mar, [facility] [place] [facility] [address] [id number] [place] [address]- 5294 Jan, [facility] [place] [facility] [address] [id number] [place] [address]- 0646 Jan, [facility] [place] [facility] [address] [id number] [place] [address]- 4742 Jan, [facility] [place] [facility] [address] [id number] [place] [address]- [address] Jan, [facility] [place] [facility] [address] [id number] [place] [address]- 8007 Dec, [facility] [place] [facility] [address] [id number] [place] [address]- [address]603 18 Dec, 2011 [facility] [place] [facility] [address] [id number] [place] [address]- 3328 Dec, [facility] [place] [facility] [address] [id number] [place] [address] Nov, [facility] [address] [id number] [address] Nov, [facility] [id number] [address] 1480 Oct, [facility] [id number] [address] 6835 Oct, [facility] [id number] [address] Oct, [facility] [id number] [address] Oct, [facility] [id number] [address] 8990 Oct, [facility] [id number] [address]38 Oct, IMMUNIZATIONS No Known Immunizations SOCIAL HISTORY [...]
--- OUTSIDE RECORDS SUMMARY | 2018-05-15 06:19 | XMS REPORT ---
Author Author MONIQUE PRESLEY [facility] Address [address] [place] [address] Care Team Providers Care Fisher Quahog Name Role Phone SAKINA, MONIQUE Unavailable PROBLEMS Type Condition ICD9-CM Code DCY44-IO Code Onset Dates Condition Status SNOMED Code Problem Major depressive disorder, single episode, unspecified F32.9 Active 36563399 Problem Schizoaffective disorder, bipolar type F25.0 Active 30348903 Problem Neuropathy G62.9 Active 480430548 Problem COPD suggested by initial evaluation J44.9 Active 76856824 Problem Body mass index (BMI) of 45.0-49.9 in adult Z68.42 Active 222012996 Problem Post-menopausal bleeding N95.0 Active 15085021 Problem 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 Active 719637442 Problem Morbid (severe) obesity due to excess calories E66.01 Active 944868678 Problem Primary osteoarthritis of left knee M17.12 Active 333218149 Problem Obstructive sleep apnea G47.33 Active 35673376 Problem Bipolar 1 disorder F31.9 Active 602114064 Problem Edema R60.9 Active 272709718 Problem Depression F32.9 Active 98712141 Problem Obesity E66.9 Active 511300380 Problem GERD (gastroesophageal reflux disease) K21.9 Active 457850301 Problem Environmental allergies Z91.09 Active 809178462 ALLERGIES Substance Reaction Event Type Date Status Sulfamethoxazole-Trimethoprim Unknown Drug Allergy Oct, Active Penicillin V Potassium rash Drug Allergy Oct, Active ENCOUNTERS Encounter Location Date Diagnosis [facility] [address] [facility] [id number] [address] Jan, [facility] [address] [facility] [id number], [place] [address] 05 Dec, 2017 [facility] [address] [facility] [id number], [place] [address] Nov, Obstructive sleep apnea G47.33 and COPD suggested by initial evaluation J44.9 [facility] [id number] [place] [address] 86369- 3516 Nov, COPD (chronic obstructive pulmonary disease) J44.9 [facility] [id number] [place] [address] 63037- 0253 Nov, [facility] [id number] [place] [address] 71787- 8474 Oct, [facility] [id number] [place] [address] 92716- 7331 Oct, [facility] [id number] [place] [address] 25722- 3609 Oct, 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 [facility] [id number] [place] [address] 74803- 1816 Oct, Schizoaffective disorder, bipolar type F25.0 ; 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 and Other senior care (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 Z79.899 [facility] [id number] [place] [address] 24169- 8362 Oct, Prediabetes R73.03 ; COPD suggested by initial evaluation J44.9 ; BMI 45.0-49.9, adult Z68.42 and Obstructive sleep apnea G47.33 [facility] [id number] [place] [address] 80469- 1697 Sep, [facility] [id number] [place] [address] 24696- 4116 August, Neuropathy G62.9 [facility] [id number] [place] [address] 79035- 2740 August, [facility] [id number] [place] [address] 62404- 7181 August, [facility] [id number] [place] [address] 57034- 2610 Jul, [facility] [address], [place] [address] Jul, Primary osteoarthritis of left knee M17.12 [facility] [id number] [place] [address] 33749- 8891 Jul, Schizoaffective disorder, bipolar type F25.0 and 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 [facility] [id number] [place] [address] 06494- 6433 Jul, Prediabetes R73.03 ; Primary osteoarthritis of left knee M17.12 ; GERD (gastroesophageal reflux disease) K21.9 ; Bipolar 1 disorder F31.9 ; Depression F32.9 ; Environmental allergies Z91.09 ; Neuropathy G62.9 ; Edema R60.9 ; Body mass index (BMI) of 45.0-49.9 in adult Z68.42 and Morbid ( severe) obesity due to excess calories E66.01 [facility] [id number] [place] [address] 66659- 3062 Jul, [facility] [address] [place] [address] 36847- 6182 Jun, [facility] [id number] [place] [address] 48833- 8579 Jun, [facility] [address] [place] [address] 13739- 6633 Jun, Wound of right breast, initial encounter S21.001A and Prediabetes R73.03 [facility] [address], [place] [address] 5911 Jun, [facility] [id number] [place] [address] 95311- 0414 May, GERD (gastroesophageal reflux disease) K21.9 [facility] [address], [place] [address] 8115 May, Primary osteoarthritis of left knee M17.12 [facility] [address] [place] [address] 30568- 3748 22 May, 2017 Schizoaffective disorder, bipolar type F25.0 and 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 [facility] [id number] [place] [address] 98380- 0248 04 May, 2017 Left medial knee pain M25.562 ; GERD (gastroesophageal reflux disease) K21.9 ; Depression F32.9 ; Neuropathy G62.9 ; Obesity E66.9 ; Prediabetes R73.03 and Edema R60.9 [facility] [id number] [place] [address] 56360- 2947 14 Mar, 2017 [facility] [id number] [place] [address] 85177- 9346 08 Mar, 2017 [facility] [id number] [place] [address] 50201- 7009 05 Mar, 2017 Post-menopausal bleeding N95.0 and BMI 50.0-59.9, adult Z68.43 [facility] [id number] [place] [address] 48143- 5349 Mar, [facility] [id number] [place] [address] 52118- 3892 27 Mar, 2017 Schizoaffective disorder, bipolar type F25.0 and 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 [facility] [address] [place] [address] 71244- 6177 27 Mar, 2017 [facility] [address] [place] [address] 67595- 0790 16 Mar, 2017 [facility] [id number] [place] [address] 65341- 7633 10 Mar, 2017 Post-menopausal bleeding N95.0 ; Screening breast examination Z12.31 ; Screen for STD (sexually transmitted disease) Z11.3 ; Obesity E66.9 ; Family history of ovarian cancer Z80.41 and Family history of cervical cancer Z80.49 [facility] [id number] [place] [address] 90088- 3584 Mar, [facility] [id number] [place] [address] 71140- 2143 Mar, [facility] [id number] [place] [address] 49637- 1389 Jan, Schizoaffective disorder, bipolar type F25.0 and 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 [facility] [id number] [place] [address] 82033- 4621 Jan, Schizoaffective disorder, bipolar type F25.0 [facility] [id number] [place] [address] 13316- 8367 Jan, [facility] [id number] [place] [address] 97458- 3752 Jan, Prediabetes R73.03 and Obesity E66.9 [facility] [id number] [place] [address] 13222- 2052 Jan, Encounter for immunization Z23 [facility] [id number] [place] [address] 50322- 0432 Jan, [facility] [id number] [place] [address] 07854- 2789 Dec, [facility] [id number] [place] [address] 01314- 3816 Dec, [facility] [id number] [place] [address] 15140- 4657 Nov, Neuropathy G62.9 [facility] [id number] [place] [address] 20650- 3647 Nov, [facility] [id number] [place] [address] 00892- 2886 Nov, Schizoaffective disorder, bipolar type F25.0 [facility] [id number] [place] [address] 53869- 6603 Nov, Other senior care (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 Z79.899 and Schizoaffective disorder, bipolar type F25.0 [facility] [id number] [place] [address] 28658- 1849 Oct, Schizoaffective disorder, bipolar type F25.0 ; 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 and 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 [facility] [id number] [place] [address] [id number] Oct, Dental caries K02.9 [facility] [address] 49974- 5340 Sep, Neuropathy G62.9 [facility] [address] 78952- 1782 Sep, [facility] [address] 61539- 8946 Sep, Neuropathy G62.9 [facility] [id number] [place] [address] 15062- 1381 Jul, Schizoaffective disorder, depressive type F25.1 [facility] [address] 19502- 1246 Jul, GERD (gastroesophageal reflux disease) K21.9 ; Joint pain of lower extremity M25.50 ; Environmental allergies Z91.09 ; Stress incontinence of urine N39.3 ; Neuropathy G62.9 ; Edema R60.9 and Acute pain of left knee M25.562 [facility] [id number] [place] [address] 62020- 1352 Jun, [facility] [address] [id number] Jun, Dental examination Z01.20 [facility] [id number] [place] [address] 39239- 7691 Jun, [facility] [address] 10020- 5936 May, [facility] [id number] [place] [address] 58100- 2260 May, Bipolar 1 disorder F31.9 ; Joint pain of lower extremity M25.50 ; Environmental allergies Z91.09 ; Stress incontinence of urine N39.3 ; Major depressive disorder, single episode, unspecified F32.9 ; Dizzy R42 ; Schizoaffective disorder, unspecified F25.9 ; Neuropathy G62.9 ; Localized edema R60.0 and GERD (gastroesophageal reflux disease) K21.9 [facility] [id number] [place] [address] 82376- 4963 May, Schizoaffective disorder, depressive type F25.1 [facility] [id number] [place] [address] 98119- 1191 May, Environmental allergies Z91.09 and Major depressive disorder , single episode, unspecified F32.9 [facility] [id number] [place] [address] 59024- 6761 Mar, Dental caries K02.9 [facility] [address] 83265- 8837 Mar, Dental caries on smooth surface penetrating into pulp K02.63 [facility] [id number] [place] [address] 40010 -1805 Mar, Peripheral edema R60.9 and Dry skin L85.3 [facility] [id number] [place] [address] 46255- 4094 Mar, [facility] [id number] [place] [address] 20718- 8695 30 Mar, 2016 Major depressive disorder, single episode, unspecified F32.9 [facility] [id number] [place] [address] 87252- 4934 Mar, Dental caries K02.9 [facility] [id number] [place] [address] 63366- 9593 Mar, Diabetes mellitus with complication E11.8 ; Urinary frequency R35.0 ; Stress incontinence of urine N39.3 ; Joint pain of lower extremity M25.50 ; Obesity E66.9 ; Environmental allergies Z91.09 ; Depression F32.9 ; Schizoaffective disorder, unspecified F25.9 ; Vaginal discharge N89.8 and Vaginal candidiasis B37.3 [facility] [address] 22273- 9667 Jan, Schizoaffective disorder, unspecified F25.9 [facility] [address] 14921- 1895 Jan, [facility] [address] 58546- 9057 30 Dec, 2015 [facility] [address] 84140- 8955 Dec, Dental caries K02.9 [facility] [address] 93449- 8814 14 Dec, 2015 Obesity E66.9 ; Edema R60.9 ; Depression F32.9 ; Bipolar 1 disorder F31.9 ; 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 ; Environmental allergies Z91.09 ; Shortness of breath R06.02 ; Gastroesophageal reflux disease with esophagitis K21.0 ; Other chronic pain G89.29 ; Pain in right knee M25.561 ; Pain in left knee M25.562 and Encounter for immunization Z23 [facility] [address] 51094- 2565 Nov, Dental caries K02.9 [facility] [address] 79733- 7000 Oct, Schizoaffective disorder, unspecified F25.9 [facility] [address] 54446- 5599 12 Oct, 2015 Dental examination Z01.20 [facility] [address] [place] [address]- 4916 Sep, Dental examination Z01.20 and Dental caries K02.9 [facility] [address] 63210- 9240 Sep, [facility] [address] 46714- 9058 Sep, [facility] [address] 57248- 1939 Sep, [facility] [address] 42476- 7355 Sep, Schizoaffective disorder, unspecified F25.9 [facility] [address] 31264- 0088 August, Bipolar disorder, unspecified F31.9 [facility] [address] 79746- 9772 Jul, Edema R60.9 and Obesity E66.9 [facility] [address] 53921- 5755 Jul, Edema R60.9 [facility] [address] 66580- 7997 Jul, Edema R60.9 [facility] [address] 28136 -5676 Jul, Edema R60.9 [facility] [address] 52698- 3905 Jul, [facility] [address] 83830- 2141 08 Jul, 2015 [facility] [address] 29891- 1272 24 Jun, 2015 Environmental allergies V15.09 and Cough R05 [facility] [address] 12499- 1932 17 Jun, 2015 Environmental allergies V15.09 ; Edema R60.9 and Cough R05 [facility] [address] [place] [address] 55935 -6001 12 Jun, 2015 Bronchospasm J98.01 [facility] [id number] [place] [address] 36180- 2330 10 Jun, 2015 [facility] [id number] [place] [address] 57104- 9952 09 Jun, 2015 [facility] [id number] [place] [address] 38779- 9128 08 Jun, 2015 Environmental allergies V15.09 ; Bipolar 1 disorder F31.9 ; GERD (gastroesophageal reflux disease) K21.9 ; Depression F32.9 ; Joint pain of lower extremity M25.50 ; COPD (chronic obstructive pulmonary disease) J44.9 and Screening for diabetes mellitus Z13.1 [facility] [id number] [place] [address] 01909- 3341 16 Jun, 2015 [facility] [id number] [place] [address] 14131- 3275 May, [facility] [id number] [place] [address] 22484- 4061 14 May, 2015 Schizoaffective disorder, unspecified F25.9 and Bipolar 1 disorder F31.9 [facility] [id number] [place] [address] 72556- 5319 May, [facility] [id number] [place] [address] 33236- 2504 12 May, 2015 URI (upper respiratory infection) J06.9 ; Environmental allergies V15.09 and Cough R05 [facility] [id number] [place] [address] 41610- 6358 18 Mar, 2015 [facility] [id number] [place] [address] 89156- 3450 15 Mar, 2015 Vaginal discharge N89.8 [facility] [id number] [place] [address] 08789- 7625 Mar, Schizoaffective disorder, unspecified F25.9 ; Major depressive disorder, single episode, unspecified F32.9 and Bipolar 1 disorder F31.9 [facility] [id number] [place] [address] 46722- 5527 Mar, [facility] [address] 25990- 8457 Mar, Bipolar 1 disorder F31.9 [facility] [address] 18085- 2831 Jan, [facility] [address] 48468- 1663 Jan, Allergic rhinitis J30.9 and Cough R05 [facility] [address] 72077- 0568 Jan, 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 ; Bipolar 1 disorder F31.9 ; GERD ( gastroesophageal reflux disease) K21.9 ; Depression F32.9 and Joint pain of lower extremity M25.50 [facility] [address] 49587- 4019 Dec, Encounter for immunization Z23 [facility] [id number] [place] [address] 82242- 6957 02 Dec, 2014 Schizoaffective disorder, unspecified 295.70 ; Pain in joint , lower leg 719.46 ; Esophageal reflux 530.81 ; Bipolar 1 disorder 296.7 ; Depression 311 ; GERD (gastroesophageal reflux disease) 530.81 and Environmental allergies V15.09 [facility] [id number] [place] [address] [id number] Nov, Dental examination V72.2 [facility] [id number] [place] [address] 48034- 1424 Nov, Acute bronchitis 466.0 [facility] [address] 64148- 1522 Nov, Schizoaffective disorder, unspecified 295.70 and Bipolar disorder, unspecified 296.80 [facility] [address] [id number] Sep, Dental examination V72.2 [facility] [address] [id number] August, Dental examination V72.2 [facility] [id number] [place] [address] 21281- 6056 August, Schizoaffective disorder, unspecified 295.70 [facility] [id number] [place] [address] 43017- 7476 August, [facility] [id number] [place] [address] 50321- 3416 August, Vomiting 787.03 [facility] [id number] [place] [address] 45912- 6836 August, Vomiting and diarrhea 787.03 and High risk medication use V58.69 [facility] [address] [address]- 0566 Jul, [facility] [id number] [place] [address] 278803- 1706 Jul, [facility] [address] 7156 Jul, [facility] [id number] [place] [address] 33839- 9846 Jun, [facility] [address], [place] [address]- 9416 Jun, [facility] [id number] [place] [address] 01965- 3906 Jun, [facility] [address] [address]- 4696 Jun, [facility] [id number] [place] [address] 71226- 7163 16 Jun, 2014 [facility] [place] [facility] [address] [id number] [place] [address]- 9749 Jun, 2014 [facility] [place] [facility] [address] [id number] [place] 6232 13 Jun, 2014 [facility] [place] [facility] [address] [facility] [id number] [place] [address]- 8559 12 Jun, 2014 [facility] [place] [facility] [address] [id number] [place] [address]- 2013 Jun, 2014 [facility] [place] [facility] [address] [id number] [place] [address]- 3866 Mar, [facility] [place] [facility] [address] [id number] [place] [address]- 3055 Mar, [facility] [place] [facility] [address] [facility] [id number] [place] [address]- 4501 Mar, [facility] [place] [facility] [address] [id number] [place] [address]- 3898 Mar, [facility] [place] [facility] [address] [facility] [id number] [place] [address]- 2240 Mar, [facility] [place] [facility] [address] [facility] [id number] [place] [address]- 5585 Mar, [facility] [place] [facility] [address] [facility] [id number] [place] [address]- 6655 Mar, [facility] [place] [facility] [address] [id number] [place] [address]- 2900 Mar, [facility] [place] [facility] [address] [id number] [place] [address]- 3553 Mar, [facility] [place] [facility] [address] [id number] [place] [address]- 8628 Mar, [facility] [place] [facility] [address] [facility] [id number] [place] [address]- 8137 Jan, [facility] [place] [facility] [address] [id number] [place] [address]- 2586 Jan, [facility] [place] [facility] [address] [id number] [place] [address]- 7533 Jan, [facility] [place] [facility] [address] [id number] [place] [address]- 3480 Jan, [facility] [place] [facility] [address] [id number] [place] [address]- 0969 Jan, [facility] [place] [facility] [address] [id number] [place] [address]- 5923 14 Jan, 2014 [facility] [place] [facility] [address] [id number] [place] [address]- 4015 Jan, [facility] [place] [facility] [address] [id number] [place] [address]- 2356 Jan, [facility] [place] [facility] [address] [id number] [place] [address] 19 Dec, 2013 [facility] [place] [facility] [address] [id number] [place] [address] 19 Dec, 2013 [facility] [place] [facility] [address] [id number] [place] [address] 15 Dec, 2013 [facility] [place] [facility] [address] [id number] [place] [address] 15 Dec, 2013 [facility] [place] [facility] [address] [id number] [place] [address] 15 Dec, 2013 [facility] [place] [facility] [address] [id number] [place] [address] 15 Dec, 2013 [facility] [place] [facility] [address] [id number] [place] [address] 12 Dec, 2013 [facility] [place] [facility] [address] [id number] [place] [address] 12 Dec, 2013 [facility] [place] [facility] [address] [id number] [place] [address] Dec, [facility] [place] [facility] [address] [id number] [place] [address] Dec, [facility] [place] [facility] [address] [id number] [place] [address] Nov, [facility] [place] [facility] [address] [id number] [place] [address] Nov, [facility] [place] [facility] [address] [id number] [place] [address] Nov, [facility] [place] [facility] [address] [id number] [place] [address] Nov, [facility] [place] [facility] [address] [id number] [place] [address] Oct, [facility] [place] [facility] [address] [id number] [place] [address] Oct, [facility] [place] [facility] [address] [id number] [place] [address] Oct, [facility] [place] [facility] [address] [id number] [place] [address] Oct, [facility] [place] [facility] [address] [id number] [place] [address] Sep, [facility] [place] [facility] [address] [id number] [place] [address] Sep, [facility] [place] [facility] [address] [id number], [place] [address] Sep, [facility] [place] [facility] [address] [id number] [place] [address] Sep, [facility] [place] [facility] [address] [id number] [place] [address] Sep, [facility] [place] [facility] [address] [id number] [place] [address] Sep, [facility] [place] [facility] [address] [id number] [place] [address] Sep, [facility] [place] [facility] [address] [id number] [place] [address] Sep, [facility] [place] [facility] [address] [id number] [place] [address] August, [facility] [place] [facility] [address] [id number] [place] [address] August, [facility] [place] [facility] [address] [id number] [place] [address] Jul, [facility] [place] [facility] [address] [id number] [place] [address] Jul, [facility] [place] [facility] [address] [id number] [place] [address] Jul, [facility] [place] [facility] [address] [id number] [place] [address] Jul, [facility] [place] [facility] [address] [id number] [place] [address] Jul, [facility] [place] [facility] [address] [id number] [place] [address] Jul, [facility] [place] [facility] [address] [id number] [place] [address] Jul, [facility] [place] [facility] [address] [id number] [place] [address] Jul, [facility] [place] [facility] [address] [id number] [place] [address] Jul, [facility] [place] [facility] [address] [id number] [place] [address] Jul, [facility] [place] [facility] [address] [id number] [place] [address] Jun, [facility] [place] [facility] [address] [id number] [place] [address] Jun, [facility] [place] [facility] [address] [id number] [place] [address] 18 Jun, 2013 [facility] [place] [facility] [address] [id number] [place] [address] 18 Jun, 2013 [facility] [place] [facility] [address] [id number] [place] [address] 17 Jun, 2013 [facility] [place] [facility] [address] [id number] [place] [address]- 6668 17 Jun, 2013 [facility] [place] [facility] [address] [id number] [place] [address]87 17 Jun, 2013 [facility] [place] [facility] [address] [id number] [place] [address]- 2931 17 Jun, 2013 [facility] [place] [facility] [address] [id number] [place] [address]- 6835 14 Jun, 2013 [facility] [place] [facility] [address] [id number] [place] [address]- 9665 14 Jun, 2013 [facility] [place] [facility] [address] [id number] [place] [address] Jun, [facility] [place] [facility] [address] [id number] [place] [address] Jun, [facility] [place] [facility] [address] [id number] [place] [address] Jun, [facility] [place] [facility] [address] [id number] [place] [address] 1677 Jun, [facility] [place] [facility] [address] [id number] [place] [address] Jun, [facility] [place] [facility] [address] [id number] [place] [address] 7826 Jun, [facility] [place] [facility] [address] [id number] [place] [address] May, [facility] [place] [facility] [address] [id number] [place] [address] May, [facility] [address] [id number] [place] [address] 8[address] May, [facility] [place] [facility] [address] [id number] [place] [address]- 8726 May, [facility] [address] [id number] [place] [address] Mar, [facility] [place] [facility] [address] [id number] [place] [address] Mar, [facility] [address] [id number] [place] [address] Mar, [facility] [place] [facility] [address] [id number] [place] [address] 9714 Mar, [facility] [address] [id number] [place] [address]118 Mar, [facility] [place] [facility] [address] [id number] [place] [address] 9218 Mar, [facility] [place] [facility] [address] [id number] [place] [address]- 98[address] Mar, [facility] [place] [facility] [address] [id number] [place] [address] 1856 Mar, [facility] [place] [facility] [address] [id number] [place] [address] 7340 Jan, [facility] [place] [facility] [address] [id number], [place] [address] Jan, [facility] [place] [facility] [address] [id number] [place] [address]- 5609 18 Jan, 2013 [facility] [place] [facility] [address] [id number] [place] [address]- 8[address] Jan, [facility] [place] [facility] [address] [id number], [place] [address] Jan, [facility] [place] [facility] [address] [id number] [place] [address]- [address] Jan, [facility] [place] [facility] [address] [id number] [place] [address]- 6034 Jan, [facility] [place] [facility] [address] [id number] [place] [address]- 0604 Dec, [facility] [place] [facility] [address] [id number] [place] [address]- 2630 Nov, [facility] [place] [facility] [address] [id number] [place] [address] 475[address] Oct, [facility] [place] [facility] [address] [id number] [place] [address]- 5634 Oct, [facility] [place] [facility] [address] [id number] [place] [address]- 1685 Sep, [facility] [place] [facility] [address] [id number] [place] [address]- 9606 Sep, [facility] [place] [facility] [address] [id number] [place] [address]- 6285 Sep, [facility] [place] [facility] [address] [id number] [place] [address]- 0091 August, [facility] [place] [facility] [address] [id number] [place] [address]- 7624 Jun, [facility] [place] [facility] [address] [id number] [place] [address]- [address]302 Jun, [facility] [place] [facility] [address] [id number] [place] [address]- 7058 Jun, [facility] [place] [facility] [address] [id number] [place] [address]- 3065 Jun, [facility] [place] [facility] [address] [id number] [place] [address]- 5055 Jun, [facility] [place] [facility] [address] [id number], [place] [address] Jun, [facility] [address] [id number] [place] [address]- 6329 Jun, [facility] [address] [id number] [place] [address]- 5368 May, [facility] [address] [facility] [id number] [place] [address]- 7458 May, [facility] [address] [id number] [place] [address]- 7487 May, [facility] [address] [id number] [place] [address]- 6282 May, [facility] [address] [id number] [place] [address]- 2135 May, [facility] [address] [facility] [id number] [place] [address]- 7549 May, [facility] [address] [facility] [id number] [place] [address]- 1380 May, [facility] [address] [facility] [id number] [place] [address]- 3343 Mar, [facility] [address] [facility] [id number] [place] [address]- 9131 Mar, [facility] [address] [id number], [place] [address]- 9965 Mar, [facility] [address] [id number], [place] [address]- 0927 Mar, [facility] [address] [id number] [place] [address]- 1279 Mar, [facility] [address] [facility] [id number] [place] [address]- 6322 Mar, [facility] [address] [facility] [id number], [place] [address]- 6671 Mar, [facility] [place] [facility] [address] [id number] [place] [address]- 2636 Mar, [facility] [place] [facility] [address] [id number] [place] [address]- 1402 Mar, [facility] [place] [facility] [address] [id number] [place] [address]- 5663 Mar, [facility] [place] [facility] [address] [id number] [place] [address]- 5582 Mar, [facility] [place] [facility] [address] [id number] [place] [address]- 5834 Mar, [facility] [place] [facility] [address] [id number] [place] [address]- 4150 Mar, [facility] [place] [facility] [address] [id number] [place] [address]- 0207 Mar, [facility] [place] [facility] [address] [id number] [place] [address]- 4390 Mar, [facility] [place] [facility] [address] [id number] [place] [address]- 7675 Mar, [facility] [place] [facility] [address] [id number] [place] [address]- 3730 Mar, [facility] [place] [facility] [address] [facility] [id number] [place] [address]- 7322 Mar, [facility] [place] [facility] [address] [id number] [place] [address]- 9971 Mar, [facility] [place] [facility] [address] [id number] [place] [address]- 5466 Jan, [facility] [place] [facility] [address] [id number] [place] [address]- 0775 Jan, [facility] [place] [facility] [address] [facility] [id number] [place] [address]- 2072 Jan, [facility] [place] [facility] [address] [id number] [place] [address]- 3165 Jan, [facility] [id number], [place] [address]- 1641 Dec, [facility] [id number], [place] [address]- 5451 Dec, [facility] [id number], [place] [address]- 8656 Dec, [facility] [id number] [place] [address]- 4474 Nov, [facility] [id number] [place] [address]- 1296 Nov, [facility] [id number] [place] [address]- 4491 Oct, [facility] [address] [id number], [place] [address]- 6818 Oct, [facility] [id number] [place] [address]- 1201 Oct, [facility] [id number], [place] [address]- 0600 Oct, [facility] [id number], [place] [address]- 0618 Oct, [facility] [id number], [place] [address]- 1357 Oct, IMMUNIZATIONS No Known Immunizations SOCIAL HISTORY Never Assessed REASON FOR VISIT yomaira/lili Goldman MA PLAN OF CARE Activity Details Follow Up 3 Months Reason: f/lili VITAL SIGNS Height 63 in 2017-11-16 Weight 256.9 lbs 2017-11-16 Heart Rate 73 bpm 2017-11-16 Respiratory Rate 20 2017-11-16 Oximetry 94 % 2017-11-16 BMI 45.50 kg/m2 2017-11-16 Blood pressure systolic 120 mmHg 2017-11-16 Blood pressure diastolic 72 mmHg 2017-11-16 MEDICATIONS Medication Instructions Dosage Frequency Start Date End Date Duration Status Risperdal 1 MG TAKE ONE TABLET BY MOUTH TWICE DAILY Active Albuterol Sulfate HFA 108 (90 Base) MCG/ACT Inhalation every 4 hrs 2 puffs as needed 4h May, 12 months Active Lamictal 150 MG Orally Once a day 1 tablet 24h 30 Active Albuterol Sulfate 0.63 MG/3ML Inhalation every 4 hrs 3 ml as needed 4h Jun, 12 months Active Gabapentin 300 MG Orally Three times a day 1 capsule 8h 30 days Active Flonase 50 MCG/ACT Nasally Once a day 1 spray in each nostril 24h 30 Active MetFORMIN HCl ER 500 mg Orally Once a day 1 tablet with evening meal 24h 10 Jan, 2017 Active Meloxicam 7.5 MG TAKE ONE TABLET BY MOUTH TWICE DAILY 30 Active Citalopram Hydrobromide 40 mg Orally Once a day 1 tablet 24h 30 Active Zyrtec Allergy 10 MG TAKE ONE TABLET BY MOUTH ONCE DAILY Active Protonix 20 mg Orally Once a day 1 tablet 24h 30 Active Hydrochlorothiazide 50 MG TAKE ONE [...]
--- OUTSIDE RECORDS SUMMARY | 2018-05-15 06:20 | XMS REPORT ---
Author Author RAY NEVAREZ [facility] Address [address] [place] [address] Care Team Providers Care Ambulatory Care Name Role Phone RAY NEVAREZ Unavailable PROBLEMS Type Condition ICD9-CM Code RCZ43-QF Code Onset Dates Condition Status SNOMED Code Problem Major depressive disorder, single episode, unspecified F32.9 Active 27197489 Problem Schizoaffective disorder, bipolar type F25.0 Active 73678726 Problem Neuropathy G62.9 Active 362360276 Problem COPD suggested by initial evaluation J44.9 Active 88568278 Problem Body mass index (BMI) of 45.0-49.9 in adult Z68.42 Active 243524412 Problem Post-menopausal bleeding N95.0 Active 38276598 Problem 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 Active 212515343 Problem Morbid (severe) obesity due to excess calories E66.01 Active 456053399 Problem Primary osteoarthritis of left knee M17.12 Active 158833441 Problem Obstructive sleep apnea G47.33 Active 10057612 Problem Bipolar 1 disorder F31.9 Active 306346242 Problem Edema R60.9 Active 670825917 Problem Depression F32.9 Active 69228327 Problem Obesity E66.9 Active 573856410 Problem GERD (gastroesophageal reflux disease) K21.9 Active 898197921 Problem Environmental allergies Z91.09 Active 575851128 ALLERGIES No Information ENCOUNTERS Encounter Location Date Diagnosis [facility] [id number] [address] Jan, [facility] [address] [address] Nov, [facility] [address] [address] Nov, [facility] [id number] [place] [address] 95419- 6992 Oct, [facility] [id number] [place] [address] 23676- 7554 Oct, [facility] [id number] [place] [address] 29202- 8749 Oct, Other assisted (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 Z79.899 [facility] [id number] [place] [address] 99180- 9773 Oct, Schizoaffective disorder, bipolar type F25.0 ; 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 and Other assisted (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 Z79.899 [facility] [id number] [place] [address] 82203- 2728 Oct, Prediabetes R73.03 ; COPD suggested by initial evaluation J44.9 ; BMI 45.0-49.9, adult Z68.42 and Obstructive sleep apnea G47.33 [facility] [id number] [place] [address] 46888- 3363 Sep, [facility] [id number] [place] [address] 35903- 5803 August, Neuropathy G62.9 [facility] [id number] [place] [address] 28840- 0914 August, [facility] [id number] [place] [address] 17585- 7663 August, [facility] [id number] [place] [address] 45996- 2968 Jul, [facility] [id number] [place] [address] 42968- 5379 Jul, Primary osteoarthritis of left knee M17.12 [facility] [id number] [place] [address] 02829- 5527 Jul, Schizoaffective disorder, bipolar type F25.0 and 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 [facility] [address] [address]- [address]77 Jul, Prediabetes R73.03 ; Primary osteoarthritis of left knee M17.12 ; GERD (gastroesophageal reflux disease) K21.9 ; Bipolar 1 disorder F31.9 ; Depression F32.9 ; Environmental allergies Z91.09 ; Neuropathy G62.9 ; Edema R60.9 ; Body mass index (BMI) of 45.0-49.9 in adult Z68.42 and Morbid ( severe) obesity due to excess calories E66.01 [facility] [address] [address]47- 5973 Jul, [facility] [address] 21016- 9730 Jun, [facility] [address] 58579- 8160 Jun, [facility] [address] 10833- 0019 Jun, Wound of right breast, initial encounter S21.001A and Prediabetes R73.03 [facility] [address] 31839- 4950 Jun, [facility] [address] 86321- 8762 May, GERD (gastroesophageal reflux disease) K21.9 [place] [address] 13193- 0915 May, Primary osteoarthritis of left knee M17.12 [facility] [address] 66866- 5943 May, Schizoaffective disorder, bipolar type F25.0 and 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 [facility] [address] 63239- 8676 May, Left medial knee pain M25.562 ; GERD (gastroesophageal reflux disease) K21.9 ; Depression F32.9 ; Neuropathy G62.9 ; Obesity E66.9 ; Prediabetes R73.03 and Edema R60.9 [facility] [id number] [address] 3[address] 14 Mar, 2017 [facility] [id number] [place] [address] 76613- 5322 Mar, [facility] [id number] [place] [address] 78780- 8484 Mar, Post-menopausal bleeding N95.0 and BMI 50.0-59.9, adult Z68.43 [facility] [id number] [place] [address] 46158- 9586 Mar, [facility] [id number] [place] [address] 68472- 6703 Mar, Schizoaffective disorder, bipolar type F25.0 and 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 [facility] [id number] [place] [address] 53650- 8471 Mar, [facility] [id number] [place] [address] 55571- 9800 Mar, [facility] [id number] [place] [address] 18238- 9068 Mar, Post-menopausal bleeding N95.0 ; Screening breast examination Z12.31 ; Screen for STD (sexually transmitted disease) Z11.3 ; Obesity E66.9 ; Family history of ovarian cancer Z80.41 and Family history of cervical cancer Z80.49 [facility] [address], [place] [address]- 7285 Mar, [facility] [id number] [place] [address] 20559- 7219 Mar, [facility] [id number] [place] [address] 12955- 2297 Jan, Schizoaffective disorder, bipolar type F25.0 and 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 [facility] [facility] [address] [place] [address]- 7892 Jan, Schizoaffective disorder, bipolar type F25.0 [facility] [id number] [place] [address] 36298- 8902 Jan, [facility] [id number] [place] [address] 48079- 5451 Jan, Prediabetes R73.03 and Obesity E66.9 [facility] [id number] [place] [address] 49935- 2691 Jan, Encounter for immunization Z23 [facility] [id number] [place] [address] 26940- 6901 Jan, [facility] [id number] [place] [address] 93396- 7989 Dec, [facility] [id number] [place] [address] 62352- 5917 Dec, [facility] [id number] [place] [address] 86907- 9691 Nov, Neuropathy G62.9 [facility] [id number] [place] [address] 07354- 3423 Nov, [facility] [id number] [place] [address] 89182- 9254 Nov, Schizoaffective disorder, bipolar type F25.0 [facility] [id number] [place] [address] 45181- 9298 Nov, 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 and Schizoaffective disorder, bipolar type F25.0 [facility] [id number] [place] [address] 43664- 7627 Oct, Schizoaffective disorder, bipolar type F25.0 ; Other assisted (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 Z79.899 and 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 [facility] [id number] [place] [address] [id number] Oct, Dental caries K02.9 [facility] [id number] [place] [address] 04634- 2770 Sep, Neuropathy G62.9 [facility] [id number] [place] [address] 52954- 2723 Sep, [facility] [id number] [place] [address] 11981- 6019 Sep, Neuropathy G62.9 [facility] [facility] [id number] [place] [address] 10959- 1455 Jul, Schizoaffective disorder, depressive type F25.1 [facility] [id number] [place] [address] 38009- 8492 Jul, GERD (gastroesophageal reflux disease) K21.9 ; Joint pain of lower extremity M25.50 ; Environmental allergies Z91.09 ; Stress incontinence of urine N39.3 ; Neuropathy G62.9 ; Edema R60.9 and Acute pain of left knee M25.562 [place] [id number] [place] [address] 26412- 2572 Jun, [facility] [id number] [place] [address] [id number] Jun, Dental examination Z01.20 [facility] [id number] [place] [address] 99635- 0493 Jun, [facility] [id number] [place] [address] 85902- 3327 May, [facility] [id number] [place] [address] 10762- 8847 May, Bipolar 1 disorder F31.9 ; Joint pain of lower extremity M25.50 ; Environmental allergies Z91.09 ; Stress incontinence of urine N39.3 ; Major depressive disorder, single episode, unspecified F32.9 ; Dizzy R42 ; Schizoaffective disorder, unspecified F25.9 ; Neuropathy G62.9 ; Localized edema R60.0 and GERD (gastroesophageal reflux disease) K21.9 [facility] [facility] [id number] [place] [address] 58360- 4335 May, Schizoaffective disorder, depressive type F25.1 [place] [address] 33136- 4427 May, Environmental allergies Z91.09 and Major depressive disorder , single episode, unspecified F32.9 [place] [address] 49979- 8140 Mar, Dental caries K02.9 [place] [address] 979563- 3646 Mar, Dental caries on smooth surface penetrating into pulp K02.63 [facility] [address] 82492 -4442 Mar, Peripheral edema R60.9 and Dry skin L85.3 [place] [address] 99719- 3043 Mar, [place] [address] 78509- 6442 30 Mar, 2016 Major depressive disorder, single episode, unspecified F32.9 [place] [address] 62375- 2290 Mar, Dental caries K02.9 [place] [address] 19212- 5468 07 Mar, 2016 Diabetes mellitus with complication E11.8 ; Urinary frequency R35.0 ; Stress incontinence of urine N39.3 ; Joint pain of lower extremity M25.50 ; Obesity E66.9 ; Environmental allergies Z91.09 ; Depression F32.9 ; Schizoaffective disorder, unspecified F25.9 ; Vaginal discharge N89.8 and Vaginal candidiasis B37.3 [place] [address] 83862- 3112 Jan, Schizoaffective disorder, unspecified F25.9 [place] [id number] [place] [address] 42069- 7932 17 Jan, 2016 [place] [address] 96948- 3791 30 Dec, 2015 [place] [address] 14247- 7675 19 Dec, 2015 Dental caries K02.9 [place] [address] 75026- 2664 14 Dec, 2015 Obesity E66.9 ; Edema R60.9 ; Depression F32.9 ; Bipolar 1 disorder F31.9 ; 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 ; Environmental allergies Z91.09 ; Shortness of breath R06.02 ; Gastroesophageal reflux disease with esophagitis K21.0 ; Other chronic pain G89.29 ; Pain in right knee M25.561 ; Pain in left knee M25.562 and Encounter for immunization Z23 [place] [facility] [address] 60123- 6006 Nov, Dental caries K02.9 [place] [address] 23223- 4304 21 Oct, 2015 Schizoaffective disorder, unspecified F25.9 [facility] [id number] [place] [address] 63377- 5559 Oct, Dental examination Z01.20 [facility] [facility] [address] 92410- 1708 20 Sep, 2015 Dental examination Z01.20 and Dental caries K02.9 [place] [address] 27764- 6956 13 Sep, 2015 [place] [address] 80367- 4032 09 Sep, 2015 [place] [address] 96682- 4130 Sep, [facility] [id number] [place] [address] 11166- 0376 Sep, Schizoaffective disorder, unspecified F25.9 [facility] [id number] [place] [address] 79363- 6560 August, Bipolar disorder, unspecified F31.9 [facility] [id number] [place] [address] 90975- 7778 Jul, Edema R60.9 and Obesity E66.9 [facility] [id number] [place] [address] 43683- 0245 Jul, Edema R60.9 [facility] [address] 02955- 0181 Jul, Edema R60.9 [facility] [address] 01917 -5357 Jul, Edema R60.9 [facility] [id number] [place] [address] 02200- 8057 Jul, [facility] [address] 34487- 9209 Jul, [facility] [id number] [place] [address] 64002- 6663 24 Jun, 2015 Environmental allergies V15.09 and Cough R05 [facility] [id number] [place] [address] 95483- 2747 17 Jun, 2015 Environmental allergies V15.09 ; Edema R60.9 and Cough R05 [facility] [id number] [place] [address] 78008 -6123 12 Jun, 2015 Bronchospasm J98.01 [facility] [id number] [place] [address] 30408- 4863 10 Jun, 2015 [facility] [id number] [place] [address] 24585- 6135 09 Jun, 2015 [place] [id number] [place] [address] 60742- 3907 Jun, Environmental allergies V15.09 ; Bipolar 1 disorder F31.9 ; GERD (gastroesophageal reflux disease) K21.9 ; Depression F32.9 ; Joint pain of lower extremity M25.50 ; COPD (chronic obstructive pulmonary disease) J44.9 and Screening for diabetes mellitus Z13.1 [place] [address] 72255- 7508 16 Jun, 2015 [place] [address] 79153- 9006 May, [address] 38746- 0513 May, Schizoaffective disorder, unspecified F25.9 and Bipolar 1 disorder [address]31.[address] 54154- 7332 May, [address] 01731- 1347 May, URI (upper respiratory infection) J06.9 ; Environmental allergies V15.09 and Cough R05 [id number] [place] [address] 33012- 6333 18 Mar, 2015 [id number] [place] [address] 99822- 1022 15 Mar, 2015 Vaginal discharge N89.[address] 11034- 6353 14 Mar, 2015 Schizoaffective disorder, unspecified F25.9 ; Major depressive disorder, single episode, unspecified F32.9 and Bipolar 1 disorder F31.9 [address] [id number] [place] [address] 79970- 5799 30 Mar, 2015 [id number] [place] [address] 11962- 3455 Mar, Bipolar 1 disorder F31.9 [facility] [id number] [place] [address] 08905- 8611 Jan, [place] [facility] [address] 24223- 2812 Jan, Allergic rhinitis J30.9 and Cough R05 [place] [address] 72058- 4199 Jan, 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 ; Bipolar 1 disorder F31.9 ; GERD ( gastroesophageal reflux disease) K21.9 ; Depression F32.9 and Joint pain of lower extremity M25.50 [place] [address] 47916- 1795 Dec, Encounter for immunization Z23 [place] [address] 78690- 7618 Dec, Schizoaffective disorder, unspecified 295.70 ; Pain in joint , lower leg 719.46 ; Esophageal reflux 530.81 ; Bipolar 1 disorder 296.7 ; Depression 311 ; GERD (gastroesophageal reflux disease) 530.81 and Environmental allergies V15.09 [facility] [address] [id number] Nov, Dental examination V72.2 [place] [address] 61024- 0312 Nov, Acute bronchitis 466.0 [place] [address] 74315- 2448 Nov, Schizoaffective disorder, unspecified 295.70 and Bipolar disorder, unspecified 296.80 [facility] [id number] [place] [address] [id number] Sep, Dental examination V72.2 [facility] [address] [id number] August, Dental examination V72.2 [place] [address] 38790- 0160 August, Schizoaffective disorder, unspecified 295.70 [facility] [address] [address]- 2110 August, [facility] [id number] [place] [address] 78638- 6818 August, Vomiting 787.03 [facility] [id number] [place] [address] 33698- 4082 August, Vomiting and diarrhea 787.03 and High risk medication use V58.69 [facility] [id number] [place] [address] 34281- 6267 Jul, [facility] [id number] [place] [address] 76981- 8528 Jul, [facility] [id number] [place] [address] 15511- 8095 Jul, [facility] [id number] [place] [address] 21795- 7286 Jun, [facility] [address] [place] [address] 31164- 0412 Jun, [facility] [id number] [place] [address] 53546- 1913 Jun, [facility] [address] [address]- 7538 Jun, [facility] [id number] [place] [address] 15919- 3178 Jun, [facility] [id number] 4315 Jun, [facility] [id number] [place] [address] 54172- 9629 Jun, [facility] [id number], [place] [address]- 3219 Jun, [facility] [address] [id number] [place] [address]- 4755 Jun, [facility] [address] [id number] [place] [address]- 5375 Mar, [facility] [place] [facility] [address] [id number] [place] [address]- 5004 Mar, [facility] [place] [facility] [address] [id number] [place] 8784 Mar, [facility] [place] [facility] [address] [id number] [place] [address]- 8793 Mar, [facility] [place] [facility] [address] [id number] [place] [address]- 6676 Mar, [facility] [place] [facility] [address] [id number] [place] [address]- 1912 Mar, [facility] [place] [facility] [address] [facility] [id number] [place] [address]- 1619 Mar, [facility] [place] [facility] [address] [id number] [place] [address]- 7001 Mar, [facility] [place] [facility] [address] [id number] [place] [address]- 6582 Mar, [facility] [place] [facility] [address] [facility] [id number] [place] [address]- 9465 Mar, [facility] [place] [facility] [address] [id number] [place] [address]- 3474 31 Jan, 2014 [facility] [place] [facility] [address] [id number] [place] [address]- 9379 31 Jan, 2014 [facility] [place] [facility] [address] [id number] [place] [address]- 7337 31 Jan, 2014 [facility] [place] [facility] [address] [id number] [place] [address]- 7497 31 Jan, 2014 [facility] [place] [facility] [address] [id number] [place] [address]- 4069 14 Jan, 2014 [facility] [place] [facility] [address] [id number] [place] [address]- 1029 14 Jan, 2014 [facility] [place] [facility] [address] [id number] [place] [address]- 8462 09 Jan, 2014 [facility] [place] [facility] [address] [id number] [place] [address]- 8973 09 Jan, 2014 [facility] [place] [facility] [address] [id number] [place] [address]- 7943 19 Dec, 2013 [facility] [place] [facility] [address] [id number] [place] [address]- 7311 19 Dec, 2013 [facility] [place] [facility] [address] [id number] [place] [address]- 2896 15 Dec, 2013 [facility] [place] [facility] [address] [id number] [place] [address]- 1534 15 Dec, 2013 [facility] [place] [facility] [address] [id number] [place] [address]- 8417 15 Dec, 2013 [facility] [place] [facility] [address] [id number] [place] [address]- 5390 15 Dec, 2013 [facility] [place] [facility] [address] [id number] [place] [address] 12 Dec, 2013 [facility] [place] [facility] [address] [id number] [place] [address] 12 Dec, 2013 [facility] [place] [facility] [address] [id number] [address] 03 Dec, 2013 [facility] [place] [facility] [address] [id number] [place] [address] Dec, [facility] [place] [facility] [address] [id number] [place] [address] Nov, [facility] [place] [facility] [address] [id number] [place] [address] Nov, [facility] [place] [facility] [address] [id number], [place] [address] Nov, [facility] [place] [facility] [address] [id number] [place] [address] Nov, [facility] [place] [facility] [address] [id number] [place] [address] Oct, [facility] [place] [facility] [address] [id number] [place] [address] Oct, [facility] [place] [facility] [address] [id number] [place] [address] Oct, [facility] [place] [facility] [address] [id number] [place] [address] Oct, [facility] [place] [facility] [address] [id number] [place] [address] Sep, [facility] [place] [facility] [address] [id number] [place] [address] Sep, [facility] [place] [facility] [address] [id number] [place] [address] Sep, [facility] [place] [facility] [address] [id number] [place] [address] Sep, [facility] [place] [facility] [address] [id number] [place] [address] Sep, [facility] [place] [facility] [address] [id number] [place] [address]- [address] Sep, [facility] [place] [facility] [address] [id number] [place] [address] Sep, [facility] [place] [facility] [address] [id number] [place] [address] Sep, [facility] [place] [facility] [address] [id number] [place] [address] August, [facility] [place] [facility] [address] [id number] [place] [address] August, [facility] [place] [facility] [address] [id number] [place] [address] 30 Jul, 2013 [facility] [place] [facility] [address] [id number] [place] [address] Jul, [facility] [place] [facility] [address] [id number] [place] [address] Jul, [facility] [place] [facility] [address] [id number] [place] [address] Jul, [facility] [place] [facility] [address] [id number] [place] [address] Jul, [facility] [place] [facility] [address] [id number] [place] [address] Jul, [facility] [place] [facility] [address] [id number] [place] [address] Jul, [facility] [place] [facility] [address] [id number] [place] [address] Jul, [facility] [place] [facility] [address] [id number] [place] [address] Jul, [facility] [place] [facility] [address] [id number] [place] [address] Jul, [facility] [place] [facility] [address] [id number] [place] [address] Jun, [facility] [place] [facility] [address] [id number] [place] [address] Jun, [facility] [place] [facility] [address] [id number] [place] [address] 18 Jun, 2013 [facility] [place] [facility] [address] [id number] [place] [address] 18 Jun, 2013 [facility] [place] [facility] [address] [id number] [place] [address] 17 Jun, 2013 [facility] [place] [facility] [address] [id number] [place] [address]268 Jun, [facility] [place] [facility] [address] [id number] [place] [address] 17 Jun, 2013 [facility] [place] [facility] [address] [id number] [place] [address] 17 Jun, 2013 [facility] [place] [facility] [address] [id number] [place] [address] 14 Jun, 2013 [facility] [place] [facility] [address] [id number] [place] [address] 14 Jun, 2013 [facility] [place] [facility] [address] [id number] [place] [address] Jun, [facility] [place] [facility] [address] [id number] [place] [address] Jun, [facility] [place] [facility] [address] [id number] [place] [address]- [address] Jun, [facility] [place] [facility] [address] [id number] [place] [address]- [address]27 Jun, [facility] [place] [facility] [address] [id number] [place] [address]- 42[address] Jun, [facility] [place] [facility] [address] [id number] [place] [address]- [address] Jun, [facility] [place] [facility] [address] [id number] [place] [address]- 9525 May, [facility] [place] [facility] [address] [id number] [place] [address]- 2828 May, [facility] [place] [facility] [address] [id number] [place] [address]- [address] May, [facility] [place] [facility] [address] [id number] [place] [address] 8624 May, [facility] [place] [facility] [address] [id number] [place] [address]- [address] Mar, [facility] [place] [facility] [address] [id number] [place] [address]- [address] Mar, [facility] [address] [id number] [place] [address] Mar, [facility] [address] [id number] [place] [address] 9150 Mar, [facility] [address] [id number] [place] [address] Mar, [facility] [address] [id number] [place] [address] 2549 Mar, [facility] [address] [id number] [place] [address]- [address] Mar, [facility] [address] [id number] [place] [address] 7460 Mar, [facility] [address] [id number] [place] [address]- [address]262 Jan, [facility] [address] [id number] [place] [address]- [address]377 Jan, [facility] [address] [id number] [place] [address]- [address] Jan, [facility] [address] [id number] [place] [address] 8531 Jan, [facility] [address] [id number] [place] [address] Jan, [facility] [address] [id number] [place] [address]- 5861 Jan, [facility] [place] [facility] [address] [id number] [place] [address]- 0334 Jan, [facility] [place] [facility] [address] [id number] [place] [address]- 2546 Dec, [facility] [address] [id number] [place] [address] 160[address] Nov, [facility] [place] [facility] [address] [id number] [place] [address] Oct, [facility] [place] [facility] [address] [id number] [place] [address] Oct, [facility] [place] [facility] [address] [id number] [place] [address]- [address] Sep, [facility] [place] [facility] [address] [id number] [place] [address]- [address]35 Sep, [facility] [place] [facility] [address] [id number] [place] [address]- 9900 Sep, [facility] [place] [facility] [address] [id number] [place] [address] 4024 August, [facility] [place] [facility] [address] [id number] [place] [address]- [address] Jun, [facility] [place] [facility] [address] [id number] [place] [address]- 0418 Jun, [facility] [place] [facility] [address] [id number] [place] [address]- 4589 Jun, [facility] [place] [facility] [address] [id number] [place] [address]- 5607 Jun, [facility] [place] [facility] [address] [id number] [place] [address]- 3120 Jun, [facility] [place] [facility] [address] [id number] [place] [address] 1933 Jun, [facility] [place] [facility] [address] [id number] [place] [address]- [address] Jun, [facility] [place] [facility] [address] [id number] [place] [address]- 9384 May, [facility] [place] [facility] [address] [id number] [place] [address]- 3861 May, [facility] [place] [facility] [address] [id number] [place] [address]- 1817 14 May, 2012 [facility] [address] [id number] [place] [address]- 5899 May, [facility] [place] [facility] [address] [id number] [place] [address]- 2550 May, [facility] [address] [id number] [place] [address]- 4809 May, [facility] [place] [facility] [address] [id number] [place] [address]- 3391 May, [facility] [address] [id number] [place] [address]- 4614 Mar, [facility] [address] [id number] [place] [address]- 8528 Mar, [facility] [address] [id number] [place] [address]- 2140 Mar, [facility] [address] [id number] [place] [address]- 3115 Mar, [facility] [place] [facility] [address] [id number] [place] [address]- 5901 Mar, [facility] [address] [facility] [id number] [place] [address]- 6006 Mar, [facility] [place] [facility] [address] [id number] [place] [address]- [address] Mar, [facility] [place] [facility] [address] [id number] [place] [address]- 9504 Mar, [facility] [place] [facility] [address] [id number] [place] [address]- 8416 Mar, [facility] [place] [facility] [address] [id number] [place] [address]- 0486 Mar, [facility] [address] [id number] [place] [address]- 6279 Mar, [facility] [place] [facility] [address] [id number] [place] [address]- 2583 Mar, [facility] [place] [facility] [address] [id number] [place] [address]- 9077 Mar, [facility] [place] [facility] [address] [id number] [place] [address]- 2150 Mar, [facility] [place] [facility] [address] [id number] [place] [address], [place] [address]- [address]367 Mar, [facility] [place] [facility] [address] [id number] [place] [address]- 2517 Mar, [facility] [place] [facility] [address] [id number] [place] [address]- 5065 Mar, [facility] [place] [facility] [address] [id number] [place] [address]- 8934 Mar, [facility] [place] [facility] [address] [id number] [place] [address]- 6451 Mar, [facility] [place] [facility] [address] [id number] [place] [address]- 7346 Jan, [facility] [place] [facility] [address] [id number] [place] [address]- 9362 Jan, [facility] [place] [facility] [address] [id number] [place] [address]- 9258 Jan, [facility] [place] [facility] [address] [id number] [address]- 1681 Jan, [facility] [place] [facility] [address] [id number] [place] [address]- 0314 Dec, [facility] [place] [facility] [address] [id number] [place] [address]- 1373 18 Dec, 2011 [facility] [place] [facility] [address] [id number] [place] [address]- 9732 Dec, [facility] [place] [facility] [address] [id number] [address]- [address] Nov, [facility] [address] [id number] [address] Nov, [facility] [id number] [address]- [address] Oct, [facility] [id number] [address]- [address] Oct, [facility] [id number] [address]- [address] Oct, [facility] [id number] [address] Oct, [facility] [id number] [address]- [address] Oct, [facility] [id number] [address]- [address] Oct, IMMUNIZATIONS No Known Immunizations SOCIAL HISTORY Never Assessed REASON FOR VISIT Medication refill request PLAN OF CARE VITAL SIGNS MEDICATIONS Medication Instructions Dosage Frequency Start Date End Date Duration Status Gabapentin 300 MG Orally Three times a day 1 capsule 8h 30 days Active RESULTS No Results PROCEDURES No [...]
--- OUTSIDE RECORDS SUMMARY | 2018-05-15 06:20 | XMS REPORT ---
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 Role Phone RAY NEVAREZ Unavailable PROBLEMS Type Condition ICD9-CM Code [id number] Code Onset Dates Condition Status SNOMED Code Problem Major depressive disorder, single episode, unspecified F32.9 Active 71808843 Problem Schizoaffective disorder, bipolar type F25.0 Active 12311650 Problem Neuropathy G62.9 Active 641004963 Problem COPD suggested by initial evaluation J44.9 Active 62987432 Problem Body mass index (BMI) of 45.0-49.9 in adult Z68.42 Active 821336183 Problem Post-menopausal bleeding N95.0 Active 88677802 Problem 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 Active 352334340 Problem Morbid (severe) obesity due to excess calories E66.01 Active 218737095 Problem Primary osteoarthritis of left knee M17.12 Active 157713472 Problem Obstructive sleep apnea G47.33 Active 61204107 Problem Bipolar 1 disorder F31.9 Active 601129499 Problem Edema R60.9 Active 729179842 Problem Depression F32.9 Active 59540956 Problem Obesity E66.9 Active 623363122 Problem GERD (gastroesophageal reflux disease) K21.9 Active 422726956 Problem Environmental allergies Z91.09 Active 520308135 ALLERGIES No Information ENCOUNTERS Encounter Location Date Diagnosis [facility] [id number] [address] Jan, [facility] [address], [place] [address] Nov, [facility] [address], [place] [address] 5[address] Oct, [facility] [address] [place] [address] 34619- 0016 Oct, [facility] [address] [address] Oct, Other longterm (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 Z79.899 [facility] [address] [address] Oct, Schizoaffective disorder, bipolar type F25.0 ; 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 and Other intermodal customer service (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 Z79.899 [facility] [address], [place] [address] Oct, Prediabetes R73.03 ; COPD suggested by initial evaluation J44.9 ; BMI 45.0-49.9, adult Z68.42 and Obstructive sleep apnea G47.33 [facility] [address], [place] [address] Sep, [facility] [id number] [place] [address] 84389- 9788 August, Neuropathy G62.9 [facility] [id number] [place] [address] 47980- 1947 August, [facility] [id number] [place] [address] 56227- 2095 August, [facility] [address], [place] [address]1 Jul, [facility] [id number] [place] [address] 90123- 5752 Jul, Primary osteoarthritis of left knee M17.12 [facility] [id number] [address] 6547 Jul, Schizoaffective disorder, bipolar type F25.0 and 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 [facility] [address], [place] [address] 30[address] Jul, Prediabetes R73.03 ; Primary osteoarthritis of left knee M17.12 ; GERD (gastroesophageal reflux disease) K21.9 ; Bipolar 1 disorder F31.9 ; Depression F32.9 ; Environmental allergies Z91.09 ; Neuropathy G62.9 ; Edema R60.9 ; Body mass index (BMI) of 45.0-49.9 in adult Z68.42 and Morbid ( severe) obesity due to excess calories E66.01 [place] [address] 39069- 4410 Jul, [place] [address] 74284- 4646 Jun, [place] [address] 580901- 4124 Jun, [place] [address] 77957- 9053 Jun, Wound of right breast, initial encounter S21.001A and Prediabetes R73.03 [place] [address] 72939- 3724 Jun, [place] [address] 77671- 3741 May, GERD (gastroesophageal reflux disease) K21.9 [place] [address] 13878- 6691 May, Primary osteoarthritis of left knee M17.12 [place] [address] 75498- 3759 May, Schizoaffective disorder, bipolar type F25.0 and 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 [place] [address] 28181- 8232 May, Left medial knee pain M25.562 ; GERD (gastroesophageal reflux disease) K21.9 ; Depression F32.9 ; Neuropathy G62.9 ; Obesity E66.9 ; Prediabetes R73.03 and Edema R60.9 [place] [address] 16498- 9659 14 Mar, 2017 [facility] [id number] [place] [address] 72420- 1547 Mar, [facility] [id number] [place] [address] 48878- 1307 05 Mar, 2017 Post-menopausal bleeding N95.0 and BMI 50.0-59.9, adult Z68.43 [facility] [id number] [place] [address] 35333- 0516 Mar, [facility] [id number] [place] [address] 52152- 4059 Mar, Schizoaffective disorder, bipolar type F25.0 and 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 [place] [id number] [place] [address] 82225- 3464 Mar, [facility] [id number] [place] [address] 82154- 6453 Mar, [facility] [id number] [place] [address] 05240- 9506 Mar, Post-menopausal bleeding N95.0 ; Screening breast examination Z12.31 ; Screen for STD (sexually transmitted disease) Z11.3 ; Obesity E66.9 ; Family history of ovarian cancer Z80.41 and Family history of cervical cancer Z80.49 [place] [address] [place] [address] 26560- 0150 Mar, [facility] [id number] [place] [address] 02382- 8954 Mar, [facility] [id number] [place] [address] 32517- 5783 Jan, Schizoaffective disorder, bipolar type F25.0 and 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 [facility] [address], [place] [address]- 4752 Jan, Schizoaffective disorder, bipolar type F25.0 [facility] [address], [place] [address]- 0981 18 Jan, 2017 [facility] [id number] [place] [address] 92722- 0811 Jan, Prediabetes R73.03 and Obesity E66.9 [facility] [id number] [place] [address] 35075- 7511 05 Jan, 2017 Encounter for immunization Z23 [facility] [id number] [place] [address] 98827- 6414 Jan, [facility] [id number] [place] [address] 69357- 3676 Dec, [facility] [id number] [place] [address] 26729- 0849 Dec, [facility] [id number] [place] [address] 53446- 9196 Nov, Neuropathy G62.9 [facility] [id number] [place] [address] 74047- 3605 Nov, [facility] [id number] [place] [address] 40851- 8432 Nov, Schizoaffective disorder, bipolar type F25.0 [facility] [address] [place] [address] 86520- 1182 Nov, Other intermodal customer service (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 Z79.899 and Schizoaffective disorder, bipolar type F25.0 [facility] [address] [place] [address] 96853- 5291 Oct, Schizoaffective disorder, bipolar type F25.0 ; Other longterm (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 Z79.899 and 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 [facility] [address] [id number] [address] Oct, Dental caries K02.9 [facility] [id number] [place] [address] 66561- 6752 Sep, Neuropathy G62.9 [place] [id number] [place] [address] 91217- 5042 Sep, [place] [id number] [place] [address] 44514- 7290 Sep, Neuropathy G62.9 [place] [id number] [place] [address] 46233- 3389 Jul, Schizoaffective disorder, depressive type F25.1 [place] [id number] [place] [address] 86648- 4252 Jul, GERD (gastroesophageal reflux disease) K21.9 ; Joint pain of lower extremity M25.50 ; Environmental allergies Z91.09 ; Stress incontinence of urine N39.3 ; Neuropathy G62.9 ; Edema R60.9 and Acute pain of left knee M25.562 [place] [id number] [place] [address] 27714- 4338 Jun, [facility] [address] [id number] Jun, Dental examination Z01.20 [place] [id number] [place] [address] 72370- 7046 Jun, [place] [id number] [place] [address] 96720- 6593 May, [place] [id number] [place] [address] 44670- 0403 May, Bipolar 1 disorder F31.9 ; Joint pain of lower extremity M25.50 ; Environmental allergies Z91.09 ; Stress incontinence of urine N39.3 ; Major depressive disorder, single episode, unspecified F32.9 ; Dizzy R42 ; Schizoaffective disorder, unspecified F25.9 ; Neuropathy G62.9 ; Localized edema R60.0 and GERD (gastroesophageal reflux disease) K21.9 [place] [id number] [place] [address] 12421- 1385 May, Schizoaffective disorder, depressive type F25.1 [place] [id number] [place] [address] 47328- 7562 May, Environmental allergies Z91.09 and Major depressive disorder , single episode, unspecified F32.9 [place] [id number] [place] [address] 53211- 5977 Mar, Dental caries K02.9 [place] [address] 15384- 6190 Mar, Dental caries on smooth surface penetrating into pulp K02.63 [facility] [address] 94500 -0075 Mar, Peripheral edema R60.9 and Dry skin L85.3 [place] [address] 17558- 2402 Mar, [place] [address] 98607- 3134 Mar, Major depressive disorder, single episode, unspecified F32.9 [place] [id number] [place] [address] 69442- 2743 Mar, Dental caries K02.9 [place] [id number] [place] [address] 08334- 4888 07 Mar, 2016 Diabetes mellitus with complication E11.8 ; Urinary frequency R35.0 ; Stress incontinence of urine N39.3 ; Joint pain of lower extremity M25.50 ; Obesity E66.9 ; Environmental allergies Z91.09 ; Depression F32.9 ; Schizoaffective disorder, unspecified F25.9 ; Vaginal discharge N89.8 and Vaginal candidiasis B37.3 [place] [id number] [place] [address] 09352- 8405 Jan, Schizoaffective disorder, unspecified F25.9 [place] [address] 54283- 5919 17 Jan, 2016 [place] [id number] [place] [address] 73572- 8115 30 Dec, 2015 [place] [address] 75132- 6216 19 Dec, 2015 Dental caries K02.9 [place] [id number] [place] [address] 92773- 3881 14 Dec, 2015 Obesity E66.9 ; Edema R60.9 ; Depression F32.9 ; Bipolar 1 disorder F31.9 ; 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 ; Environmental allergies Z91.09 ; Shortness of breath R06.02 ; Gastroesophageal reflux disease with esophagitis K21.0 ; Other chronic pain G89.29 ; Pain in right knee M25.561 ; Pain in left knee M25.562 and Encounter for immunization Z23 [place] [address] 35836- 6871 Nov, Dental caries K02.9 [place] [address] 43965- 2369 Oct, Schizoaffective disorder, unspecified F25.9 [place] [id number] [place] [address] 60993- 1770 Oct, Dental examination Z01.20 [place] [id number] [place] [address] 90692- 7058 Sep, Dental examination Z01.20 and Dental caries K02.9 [place] [id number] [place] [address] 20676- 9303 13 Sep, 2015 [place] [address] 52696- 9297 09 Sep, 2015 [place] [address] 95024- 4715 07 Sep, 2015 [place] [address] 22379- 1202 Sep, Schizoaffective disorder, unspecified F25.9 [facility] [id number] [place] [address] 06656- 2152 August, Bipolar disorder, unspecified F31.9 [facility] [id number] [place] [address] 03595- 6465 Jul, Edema R60.9 and Obesity E66.9 [place] [address] 22700- 0118 Jul, Edema R60.9 [place] [address] 79871- 7693 Jul, Edema R60.9 [facility] [address] 01739 -2049 Jul, Edema R60.9 [place] [address] 48777- 8450 Jul, [place] [id number] [place] [address] 14606- 8771 Jul, [place] [id number] [place] [address] 02331- 1421 24 Jun, 2015 Environmental allergies V15.09 and Cough R05 [place] [id number] [place] [address] 89498- 9166 Jun, Environmental allergies V15.09 ; Edema R60.9 and Cough R05 [facility] [id number] [place] [address] 06597 -4458 12 Jun, 2015 Bronchospasm J98.01 [place] [address] [place] [address] 73915- 5773 10 Jun, 2015 [place] [id number] [place] [address] 14356- 4526 Jun, [place] [id number] [place] [address] 65394- 1350 08 Jun, 2015 Environmental allergies V15.09 ; Bipolar 1 disorder F31.9 ; GERD (gastroesophageal reflux disease) K21.9 ; Depression F32.9 ; Joint pain of lower extremity M25.50 ; COPD (chronic obstructive pulmonary disease) J44.9 and Screening for diabetes mellitus Z13.1 [place] [address] 51623- 2450 16 Jun, 2015 [place] [address] 05255- 1613 May, [place] [address] 88200- 8322 May, Schizoaffective disorder, unspecified F25.9 and Bipolar 1 disorder F31.9 [place] [address] 52118- 2205 May, [address] 52845- 5936 May, URI (upper respiratory infection) J06.9 ; Environmental allergies V15.09 and Cough R05 [address] 83233- 4381 Mar, [place] [address] 11541- 2510 Mar, Vaginal discharge N89.8 [place] [address] 51426- 5076 14 Mar, 2015 Schizoaffective disorder, unspecified F25.9 ; Major depressive disorder, single episode, unspecified F32.9 and Bipolar 1 disorder F31.9 [place] [address] 22955- 8731 Mar, [place] [address] 09758- 0871 Mar, Bipolar 1 disorder F31.9 [place] [address] 48863- 9657 Jan, [facility] [id number] [place] [address] 83075- 8102 Jan, Allergic rhinitis J30.9 and Cough R05 [place] [id number] [place] [address] 39125- 1342 Jan, 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 ; Bipolar 1 disorder F31.9 ; GERD ( gastroesophageal reflux disease) K21.9 ; Depression F32.9 and Joint pain of lower extremity M25.50 [facility] [address] 30763- 4912 Dec, Encounter for immunization Z23 [address] 07855- 5803 Dec, Schizoaffective disorder, unspecified 295.70 ; Pain in joint , lower leg 719.46 ; Esophageal reflux 530.81 ; Bipolar 1 disorder 296.7 ; Depression 311 ; GERD (gastroesophageal reflux disease) 530.81 and Environmental allergies V15.09 [facility] [address] [id number] Nov, Dental examination V72.2 [place] [address] 13200- 3428 Nov, Acute bronchitis 466.0 [place] [address] 19893- 7592 Nov, Schizoaffective disorder, unspecified 295.70 and Bipolar disorder, unspecified 296.80 [facility] [id number] [place] [address] [id number] Sep, Dental examination V72.2 [facility] [address] [id number] August, Dental examination V72.2 [facility] [address] 18520- 5595 August, Schizoaffective disorder, unspecified 295.70 [facility] [address] 32788- 6820 August, [facility] [address]- 7942 August, Vomiting 787.03 [facility] [id number] [address]- 8520 August, Vomiting and diarrhea 787.03 and High risk medication use V58.69 [facility] [address], [place] [address]- 5495 Jul, [facility] [address], [place] [address]- 0060 Jul, [facility] [address] [place] [address] 22368- 5181 Jul, [facility] [address] [address]- 2064 Jun, [facility] [address], [place] [address]- 6010 Jun, [facility] [address], [place] [address]- 3534 Jun, [facility] [address] [address]- 2798 Jun, [facility] [address] [address]- 3289 16 Jun, 2014 [facility] [address], [place] [address]- 6046 Jun, [facility] [id number]- 6939 Jun, [facility] [address]- 8342 Jun, [facility] [id number] 5312 Jun, [facility] [address] [place] [address]- 3276 Mar, [facility] [place] [facility] [address] [id number] [place] [address]- 8630 Mar, [facility] [place] [facility] [address] [id number] [place] [address]- 6266 Mar, [facility] [place] [facility] [address] [id number] [place] 9155 Mar, [facility] [place] [facility] [address] [id number] [place] [address]- 9511 Mar, [facility] [place] [facility] [address] [id number] [place] [address]- 6385 Mar, [facility] [place] [facility] [address] [id number] [place] [address]- 2515 Mar, [facility] [place] [facility] [address] [id number] [place] [address]- 5021 Mar, [facility] [place] [facility] [address] [id number] [place] [address]- 5165 Mar, [facility] [place] [facility] [address] [id number] [place] [address]- 7733 Mar, [facility] [place] [facility] [address] [id number] [place] [address]- 6279 Jan, [facility] [place] [facility] [address] [id number] [place] [address]- 6709 31 Jan, 2014 [facility] [place] [facility] [address] [id number] [place] [address]- 7670 31 Jan, 2014 [facility] [place] [facility] [address] [id number] [place] [address]- 6537 31 Jan, 2014 [facility] [place] [facility] [address] [id number] [place] [address]- 2597 Jan, [facility] [place] [facility] [address] [id number] [place] [address]- 7238 14 Jan, 2014 [facility] [place] [facility] [address] [id number] [place] [address]- 9156 09 Jan, 2014 [facility] [place] [facility] [address] [id number] [place] [address]- 1173 09 Jan, 2014 [facility] [place] [facility] [address] [id number] [place] [address]- 7888 19 Dec, 2013 [facility] [place] [facility] [address] [id number] [place] [address]- 8133 19 Dec, 2013 [facility] [place] [facility] [address] [id number] [place] [address]- 2135 15 Dec, 2013 [facility] [place] [facility] [address] [id number] [place] [address]- 7022 15 Dec, 2013 [facility] [place] [facility] [address] [id number] [place] [address]- 3945 15 Dec, 2013 [facility] [place] [facility] [address] [id number] [place] [address]- 4757 15 Dec, 2013 [facility] [place] [facility] [address] [id number] [place] [address]- 9092 12 Dec, 2013 [facility] [place] [facility] [address] [id number] [place] [address]- 3010 12 Dec, 2013 [facility] [place] [facility] [address] [id number] [place] [address]- 1109 Dec, [facility] [place] [facility] [address] [id number] [address]- 9686 Dec, [facility] [place] [facility] [address] [id number] [place] [address]- 5086 Nov, [facility] [place] [facility] [address] [id number] [place] [address]- 1524 Nov, [facility] [place] [facility] [address] [id number] [place] [address]- 8988 Nov, [facility] [place] [facility] [address] [id number] [place] [address]- 8209 Nov, [facility] [place] [facility] [address] [id number] [place] [address]- 0471 Oct, [facility] [place] [facility] [address] [id number] [place] [address]- 7885 Oct, [facility] [place] [facility] [address] [id number] [place] [address]- 4978 Oct, [facility] [place] [facility] [address] [id number] [place] [address]- 7094 Oct, [facility] [place] [facility] [address] [id number] [place] [address]- 2435 Sep, [facility] [place] [facility] [address] [id number] [place] [address]- 0335 Sep, [facility] [place] [facility] [address] [id number] [place] [address]- 4969 Sep, [facility] [place] [facility] [address] [id number] [place] [address]- 1445 Sep, [facility] [place] [facility] [address] [id number] [place] [address]- 9538 Sep, [facility] [place] [facility] [address] [id number] [place] [address]- 7139 Sep, [facility] [place] [facility] [address] [id number] [place] [address]- 6374 Sep, [facility] [place] [facility] [address] [id number] [place] [address] Sep, [facility] [place] [facility] [address] [id number] [place] [address] August, [facility] [place] [facility] [address] [id number] [place] [address] August, [facility] [place] [facility] [address] [id number] [place] [address] Jul, [facility] [place] [facility] [address] [id number] [place] [address] 30 Jul, 2013 [facility] [place] [facility] [address] [id number] [place] [address] Jul, [facility] [place] [facility] [address] [id number] [place] [address] Jul, [facility] [place] [facility] [address] [id number] [place] [address] Jul, [facility] [place] [facility] [address] [id number] [place] [address] Jul, [facility] [place] [facility] [address] [id number] [place] [address] Jul, [facility] [place] [facility] [address] [id number] [place] [address] Jul, [facility] [place] [facility] [address] [id number] [place] [address] Jul, [facility] [place] [facility] [address] [id number] [place] [address] Jul, [facility] [place] [facility] [address] [id number] [place] [address] Jun, [facility] [place] [facility] [address] [id number] [place] [address] 27 Jun, 2013 [facility] [place] [facility] [address] [id number] [place] [address] 18 Jun, 2013 [facility] [place] [facility] [address] [id number] [place] [address] 18 Jun, 2013 [facility] [place] [facility] [address] [id number] [place] [address] 17 Jun, 2013 [facility] [place] [facility] [address] [id number] [place] [address] 17 Jun, 2013 [facility] [place] [facility] [address] [id number] [place] [address] Jun, [facility] [place] [facility] [address] [id number] [place] [address] 17 Jun, 2013 [facility] [place] [facility] [address] [id number] [place] [address] Jun, [facility] [place] [facility] [address] [id number] [place] [address] 14 Jun, 2013 [facility] [place] [facility] [address] [id number] [place] [address] Jun, [facility] [place] [facility] [address] [id number] [place] [address] Jun, [facility] [place] [facility] [address] [id number] [place] [address] Jun, [facility] [place] [facility] [address] [id number] [place] [address] Jun, [facility] [place] [facility] [address] [id number] [place] [address] Jun, [facility] [place] [facility] [address] [id number] [place] [address] Jun, [facility] [place] [facility] [address] [id number] [place] [address] May, [facility] [place] [facility] [address] [id number] [place] [address] May, [facility] [place] [facility] [address] [id number] [place] [address] May, [facility] [place] [facility] [address] [id number] [place] [address] May, [facility] [place] [facility] [address] [id number] [place] [address] Mar, [facility] [place] [facility] [address] [id number] [place] [address] Mar, [facility] [place] [facility] [address] [id number] [place] [address] Mar, [facility] [address] [id number] [place] [address] Mar, [facility] [address] [id number] [place] [address] Mar, [facility] [address] [id number] [place] [address] Mar, [facility] [address] [id number] [place] [address] Mar, [facility] [address] [id number] [place] [address] Mar, [facility] [address] [id number] [place] [address] Jan, [facility] [address] [id number] [place] [address] Jan, [facility] [address] [id number] [place] [address] Jan, [facility] [address] [id number] [place] [address] Jan, [facility] [address] [id number] [place] [address] Jan, [facility] [place] [facility] [address] [id number] [place] [address] Jan, [facility] [address] [id number] [place] [address] Jan, [facility] [place] [facility] [address] [id number] [place] [address] Dec, [facility] [place] [facility] [address] [id number] [place] [address] Nov, [facility] [place] [facility] [address] [id number] [place] [address] Oct, [facility] [place] [facility] [address] [id number] [place] [address] 16 Oct, 2012 [facility] [place] [facility] [address] [id number] [place] [address] Sep, [facility] [place] [facility] [address] [id number] [place] [address] Sep, [facility] [place] [facility] [address] [id number] [place] [address]- [address] Sep, [facility] [place] [facility] [address] [id number] [place] [address] August, [facility] [place] [facility] [address] [id number] [place] [address] Jun, [facility] [place] [facility] [address] [id number] [place] [address] 20 Jun, 2012 [facility] [place] [facility] [address] [id number] [place] [address]- [address] 15 Jun, 2012 [facility] [place] [facility] [address] [id number] [place] [address]- [address] 15 Jun, 2012 [facility] [place] [facility] [address] [id number] [place] [address] 36[address] Jun, [facility] [place] [facility] [address] [id number] [place] [address] Jun, [facility] [place] [facility] [address] [id number], [place] [address] Jun, [facility] [place] [facility] [address] [id number] [place] [address] May, [facility] [place] [facility] [address] [id number] [place] [address] May, [facility] [place] [facility] [address] [id number] [place] [address] 14 May, 2012 [facility] [place] [facility] [address] [id number] [place] [address]- [address] 11 May, 2012 [facility] [address] [id number] [place] [address] May, [facility] [place] [facility] [address] [id number] [place] [address] 279[address] May, [facility] [address] [id number] [place] [address] 98[address] May, [facility] [place] [facility] [address] [id number] [place] [address]- 8753 Mar, [facility] [address] [id number] [place] [address]- [address]898 Mar, [facility] [address] [id number] [place] [address]- [address]40 Mar, [facility] [address] [id number] [place] [address] Mar, [facility] [address] [id number] [place] [address]- 2896 Mar, [facility] [place] [facility] [address] [id number] [place] [address]- [address] Mar, [facility] [address] [facility] [id number] [place] [address]- 3969 Mar, [facility] [place] [facility] [address] [id number] [place] [address]- 9[address] Mar, [facility] [place] [facility] [address] [id number] [place] [address]- 119[address] Mar, [facility] [place] [facility] [address] [id number] [place] [address]8 Mar, [facility] [place] [facility] [address] [id number] [place] [address]- [address] Mar, [facility] [address] [id number] [place] [address]658 Mar, [facility] [place] [facility] [address] [id number] [place] [address]- 9103 Mar, [facility] [place] [facility] [address] [id number] [place] [address]- [address]240 Mar, [facility] [place] [facility] [address] [id number] [place] [address]- [address]074 Mar, [facility] [place] [facility] [address] [id number] [place] [address], [place] [address] Mar, [facility] [place] [facility] [address] [id number] [place] [address]- [address]139 Mar, [facility] [place] [facility] [address] [id number] [place] [address]- 3469 Mar, [facility] [place] [facility] [address] [id number] [place] [address]- [address]655 Mar, [facility] [place] [facility] [address] [id number] [place] [address]- 9282 Jan, [facility] [place] [facility] [address] [id number] [place] [address]- 4954 Jan, [facility] [place] [facility] [address] [id number] [place] [address]- 1632 Jan, [facility] [place] [facility] [address] [id number] [place] [address]- 3709 Jan, [facility] [place] [facility] [address] [id number], [place] [address] Dec, [facility] [place] [facility] [address] [id number] [place] [address]- 0527 Dec, [facility] [place] [facility] [address] [id number] [place] [address]- 3635 Dec, [facility] [place] [facility] [address] [id number] [place] [address]- 0361 Nov, [facility] [place] [facility] [address] [id number] [id number] [address] Nov, [facility] [address] [id number] [address] Oct, [facility] [address] [id number] [address] Oct, [facility] [address] [id number] [address]- [address] Oct, [facility] [id number] [address] Oct, [facility] [address] [id number] [address] Oct, [facility] [address] [id number] [address] Oct, IMMUNIZATIONS No Known Immunizations SOCIAL HISTORY Never Assessed REASON FOR VISIT Requests return call/paperwork PLAN OF CARE VITAL SIGNS MEDICATIONS Unknown [...]
--- OUTSIDE RECORDS SUMMARY | 2018-05-15 06:21 | XMS REPORT ---
Author Author SVETA NAIK [facility] Address [address] [place] [address] Care Team Providers Care Congressional Assistant Name Role Phone SVETA NAIK Unavailable PROBLEMS Type Condition ICD9-CM Code LOT40-IR Code Onset Dates Condition Status SNOMED Code Problem Major depressive disorder, single episode, unspecified F32.9 Active 78103693 Problem Schizoaffective disorder, bipolar type F25.0 Active 46994553 Problem Neuropathy G62.9 Active 054153106 Problem COPD suggested by initial evaluation J44.9 Active 43461170 Problem Body mass index (BMI) of 45.0-49.9 in adult Z68.42 Active 235996990 Problem Post-menopausal bleeding N95.0 Active 91263531 Problem 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 Active 552849060 Problem Morbid (severe) obesity due to excess calories E66.01 Active 405362189 Problem Primary osteoarthritis of left knee M17.12 Active 726653713 Problem Obstructive sleep apnea G47.33 Active 83921849 Problem Bipolar 1 disorder F31.9 Active 439052261 Problem Edema R60.9 Active 447847486 Problem Depression F32.9 Active 05245965 Problem Obesity E66.9 Active 238286541 Problem GERD (gastroesophageal reflux disease) K21.9 Active 507759020 Problem Environmental allergies Z91.09 Active 582968429 ALLERGIES No Information ENCOUNTERS Encounter Location Date Diagnosis [facility] [address] [address] Jan, [facility] [id number] [address] Oct, [facility] [address] [address] 2182 Oct, [facility] [address] [place] [address] 21311- 6470 Oct, Other long term care phlebotomist (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 Z79.899 [facility] [id number] [place] [address] 01884- 6675 Oct, Schizoaffective disorder, bipolar type F25.0 ; 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 and Other jail (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 Z79.899 [facility] [id number] [place] [address] 46816- 8410 Oct, Prediabetes R73.03 ; COPD suggested by initial evaluation J44.9 ; BMI 45.0-49.9, adult Z68.42 and Obstructive sleep apnea G47.33 [facility] [id number] [place] [address] 76553- 0133 Sep, [facility] [id number] [place] [address] 81785- 4150 August, Neuropathy G62.9 [facility] [id number] [place] [address] 01443- 3554 August, [facility] [id number] [place] [address] 24402- 7155 August, [facility] [id number] [place] [address] 89380- 4347 Jul, [facility] [id number] [place] [address] 82412- 1734 Jul, Primary osteoarthritis of left knee M17.12 [facility] [id number] [place] [address] 93181- 0104 Jul, Schizoaffective disorder, bipolar type F25.0 and 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 [facility] [id number] [place] [address] 07205- 3898 Jul, Prediabetes R73.03 ; Primary osteoarthritis of left knee M17.12 ; GERD (gastroesophageal reflux disease) K21.9 ; Bipolar 1 disorder F31.9 ; Depression F32.9 ; Environmental allergies Z91.09 ; Neuropathy G62.9 ; Edema R60.9 ; Body mass index (BMI) of 45.0-49.9 in adult Z68.42 and Morbid ( severe) obesity due to excess calories E66.01 [place] [address] 64121- 6096 Jul, [place] [facility] [address] 63951- 3698 Jun, [place] [address] 43887- 2718 Jun, [address] 25929- 6782 Jun, Wound of right breast, initial encounter S21.001A and Prediabetes R73.[address] 95235- 3262 Jun, [address] 69298- 1327 May, GERD (gastroesophageal reflux disease) K21.[address] 99548- 5033 May, Primary osteoarthritis of left knee M17.[address] 42866- 1093 May, Schizoaffective disorder, bipolar type F25.0 and 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 55007- 1895 May, Left medial knee pain M25.562 ; GERD (gastroesophageal reflux disease) K21.9 ; Depression F32.9 ; Neuropathy G62.9 ; Obesity E66.9 ; Prediabetes R73.03 and Edema R60.[address] 57691- 5485 Mar, [address] 86109- 2015 Mar, [facility] [address] [place] [address] 10461- 6114 Mar, Post-menopausal bleeding N95.0 and BMI 50.0-59.9, adult Z68.43 [facility] [address] [address]- 4268 Mar, [facility] [id number] [place] [address] 82146- 2051 Mar, Schizoaffective disorder, bipolar type F25.0 and 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 [facility] [id number] [place] [address] 42877- 2738 Mar, [facility] [id number] [place] [address] 75796- 6136 Mar, [facility] [id number] [place] [address] 96124- 9909 Mar, Post-menopausal bleeding N95.0 ; Screening breast examination Z12.31 ; Screen for STD (sexually transmitted disease) Z11.3 ; Obesity E66.9 ; Family history of ovarian cancer Z80.41 and Family history of cervical cancer Z80.49 [facility] [address] [address]- 9901 Mar, [facility] [address] [address]- 1551 Mar, [facility] [address] [place] [address] 57364- 3650 Jan, Schizoaffective disorder, bipolar type F25.0 and 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 [facility] [address] [place] [address] 30933- 9450 Jan, Schizoaffective disorder, bipolar type F25.0 [facility] [address] [place] [address] 48037- 1512 Jan, [facility] [address] [address]- 0529 Jan, Prediabetes R73.03 and Obesity E66.9 [facility] [address] [place] [address] 65432- 6435 05 Jan, 2017 Encounter for immunization Z23 [facility] [id number] [place] [address] 35577- 3087 Jan, [facility] [id number] [place] [address] 15866- 3278 Dec, [facility] [id number] [place] [address] 00774- 6420 Dec, [facility] [id number] [place] [address] 89021- 5048 Nov, Neuropathy G62.9 [facility] [id number] [place] [address] 58664- 3745 Nov, [facility] [id number] [place] [address] 70206- 2713 Nov, Schizoaffective disorder, bipolar type F25.0 [facility] [address] [place] [address] 84956- 9760 Nov, Other long term care phlebotomist (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 Z79.899 and Schizoaffective disorder, bipolar type F25.0 [facility] [address] [address]- 5306 Oct, Schizoaffective disorder, bipolar type F25.0 ; Other jail (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 Z79.899 and 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 [facility] [address] [place] [address] [id number] Oct, Dental caries K02.9 [facility] [address] [address]- 4781 Sep, Neuropathy G62.9 [facility] [id number] [place] [address] 99447- 5538 Sep, [facility] [id number] [place] [address] 32943- 4427 Sep, Neuropathy G62.9 [facility] [id number] [place] [address] 96532- 0381 Jul, Schizoaffective disorder, depressive type F25.1 [place] [address] 73911- 0040 Jul, GERD (gastroesophageal reflux disease) K21.9 ; Joint pain of lower extremity M25.50 ; Environmental allergies Z91.09 ; Stress incontinence of urine N39.3 ; Neuropathy G62.9 ; Edema R60.9 and Acute pain of left knee M25.562 [place] [facility] [id number] [place] [address] 50283- 8906 Jun, [facility] [address] [id number] Jun, Dental examination Z01.20 [place] [id number] [place] [address] 66963- 9749 Jun, [facility] [facility] [id number] [place] [address] 04420- 1256 May, [facility] [facility] [id number] [place] [address] 26081- 1437 May, Bipolar 1 disorder F31.9 ; Joint pain of lower extremity M25.50 ; Environmental allergies Z91.09 ; Stress incontinence of urine N39.3 ; Major depressive disorder, single episode, unspecified F32.9 ; Dizzy R42 ; Schizoaffective disorder, unspecified F25.9 ; Neuropathy G62.9 ; Localized edema R60.0 and GERD (gastroesophageal reflux disease) K21.9 [facility] [id number] [place] [address] 74099- 0063 May, Schizoaffective disorder, depressive type F25.1 [facility] [id number] [place] [address] 48303- 4314 May, Environmental allergies Z91.09 and Major depressive disorder , single episode, unspecified F32.9 [facility] [id number] [place] [address] 30167- 2606 Mar, Dental caries K02.9 [facility] [id number] [place] [address] 47209- 8827 Mar, Dental caries on smooth surface penetrating into pulp K02.63 [facility] [address] 54642 -7293 Mar, Peripheral edema R60.9 and Dry skin L85.3 [place] [address] 79265- 1659 Mar, [place] [address] 67567- 7614 Mar, Major depressive disorder, single episode, unspecified F32.9 [place] [facility] [id number] [place] [address] 29992- 5434 Mar, Dental caries K02.9 [facility] [facility] [id number] [place] [address] 54820- 1069 07 Mar, 2016 Diabetes mellitus with complication E11.8 ; Urinary frequency R35.0 ; Stress incontinence of urine N39.3 ; Joint pain of lower extremity M25.50 ; Obesity E66.9 ; Environmental allergies Z91.09 ; Depression F32.9 ; Schizoaffective disorder, unspecified F25.9 ; Vaginal discharge N89.8 and Vaginal candidiasis B37.3 [place] [id number] [place] [address] 86735- 5501 Jan, Schizoaffective disorder, unspecified F25.9 [place] [facility] [id number] [place] [address] 63241- 1622 Jan, [place] [id number] [place] [address] 52962- 9194 30 Dec, 2015 [facility] [id number] [place] [address] 77171- 2212 19 Dec, 2015 Dental caries K02.9 [place] [facility] [id number] [place] [address] 13706- 1010 14 Dec, 2015 Obesity E66.9 ; Edema R60.9 ; Depression F32.9 ; Bipolar 1 disorder F31.9 ; 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 ; Environmental allergies Z91.09 ; Shortness of breath R06.02 ; Gastroesophageal reflux disease with esophagitis K21.0 ; Other chronic pain G89.29 ; Pain in right knee M25.561 ; Pain in left knee M25.562 and Encounter for immunization Z23 [place] [id number] [place] [address] 90545- 6470 Nov, Dental caries K02.9 [facility] [id number] [place] [address] 57046- 5422 Oct, Schizoaffective disorder, unspecified F25.9 [facility] [id number] [place] [address] 14710- 4367 Oct, Dental examination Z01.20 [place] [facility] [id number] [place] [address] 99167- 1768 Sep, Dental examination Z01.20 and Dental caries K02.9 [facility] [id number] [place] [address] 26733- 2547 13 Sep, 2015 [facility] [facility] [id number] [place] [address] 33593- 7042 Sep, [place] [facility] [address] 16846- 2152 Sep, [facility] [facility] [id number] [place] [address] 60188- 2668 07 Sep, 2015 Schizoaffective disorder, unspecified F25.9 [place] [facility] [address] 28878- 2530 August, Bipolar disorder, unspecified F31.9 [place] [address] 92594- 0557 Jul, Edema R60.9 and Obesity E66.9 [facility] [address] 57522- 0182 Jul, Edema R60.9 [facility] [address] 47161- 6888 Jul, Edema R60.9 [facility] [address] 78064 -5309 Jul, Edema R60.9 [place] [address] 57410- 0584 Jul, [place] [address] 71851- 1979 Jul, [facility] [address] 43134- 4875 24 Jun, 2015 Environmental allergies V15.09 and Cough R05 [place] [address] 19986- 6683 17 Jun, 2015 Environmental allergies V15.09 ; Edema R60.9 and Cough R05 [facility] [id number] [place] [address] 61421 -3166 Jun, Bronchospasm J98.01 [place] [id number] [place] [address] 13518- 3269 10 Jun, 2015 [place] [address] 76968- 5130 Jun, [place] [address] 44591- 0697 08 Jun, 2015 Environmental allergies V15.09 ; Bipolar 1 disorder F31.9 ; GERD (gastroesophageal reflux disease) K21.9 ; Depression F32.9 ; Joint pain of lower extremity M25.50 ; COPD (chronic obstructive pulmonary disease) J44.9 and Screening for diabetes mellitus Z13.1 [place] [id number] [place] [address] 52073- 3468 16 Jun, 2015 [place] [address] 21058- 1933 May, [place] [facility] [address] 10045- 0013 14 May, 2015 Schizoaffective disorder, unspecified F25.9 and Bipolar 1 disorder F31[address] 51499- 8819 May, [place] [address] 05416- 6379 12 May, 2015 URI (upper respiratory infection) J06.9 ; Environmental allergies V15.09 and Cough R05 [place] [id number] [place] [address] 78462- 3443 18 Mar, 2015 [place] [address] 76662- 2077 15 Mar, 2015 Vaginal discharge N89.8 [place] [address] 26768- 9143 14 Mar, 2015 Schizoaffective disorder, unspecified F25.9 ; Major depressive disorder, single episode, unspecified F32.9 and Bipolar 1 disorder F31.9 [place] [id number] [place] [address] 33100- 1101 Mar, [place] [facility] [address] 46739- 2230 Mar, Bipolar 1 disorder F31.9 [facility] [id number] [place] [address] 80929- 9524 Jan, [facility] [facility] [address] 89659- 1410 Jan, Allergic rhinitis J30.9 and Cough R05 [place] [id number] [place] [address] 07898- 4170 Jan, 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 ; Bipolar 1 disorder F31.9 ; GERD ( gastroesophageal reflux disease) K21.9 ; Depression F32.9 and Joint pain of lower extremity M25.50 [place] [address] 50477- 5245 Dec, Encounter for immunization Z23 [place] [address] 54062- 8583 Dec, Schizoaffective disorder, unspecified 295.70 ; Pain in joint , lower leg 719.46 ; Esophageal reflux 530.81 ; Bipolar 1 disorder 296.7 ; Depression 311 ; GERD (gastroesophageal reflux disease) 530.81 and Environmental allergies V15.09 [facility] [address] [id number] Nov, Dental examination V72.2 [place] [address] 40029- 4557 Nov, Acute bronchitis 466.0 [place] [address] 58439- 4050 Nov, Schizoaffective disorder, unspecified 295.70 and Bipolar disorder, unspecified 296.80 [facility] [id number] [place] [address] [id number] Sep, Dental examination V72.2 [facility] [id number] [place] [address] [id number] August, Dental examination V72.2 [facility] [address] 14246- 3579 August, Schizoaffective disorder, unspecified 295.70 [facility] [id number] [place] [address] 38274608- 2094 August, [facility] [address] 08467- 6277 August, Vomiting 787.03 [facility] [address]- 8404 August, Vomiting and diarrhea 787.03 and High risk medication use V58.69 [facility] [address] [address]- 8309 30 Jul, 2014 [facility] [id number] [place] [address] 23280- 4603 Jul, [facility] [address] [address]- 6012 Jul, [facility] [id number] [place] [address] 52779- 2047 Jun, [facility] [address] [address]- 0663 Jun, [facility] [address] [place] [address] 61594- 3986 Jun, [facility] [address] [address]- 5780 Jun, [facility] [address] [address]- 3408 16 Jun, 2014 [facility] [address] [address]- 9975 Jun, [facility] [address] [address]- 4535 Jun, [facility] [id number]- 3914 Jun, [facility] [address] [address]- 5616 Jun, [facility] [id number] [address]- 3179 Mar, [facility] [id number] [place] [address]- 5888 Mar, [facility] [place] [facility] [address] [id number] [place] [address]- 2425 Mar, [facility] [place] [facility] [address] [id number] [place] 8951 Mar, [facility] [place] [facility] [address] [id number] [place]- 1749 Mar, [facility] [place] [facility] [address] [id number] [place] [address]- 5632 Mar, [facility] [place] [facility] [address] [id number] [place] 7218 Mar, [facility] [place] [facility] [address] [id number] [place] [address]- 6345 Mar, [facility] [place] [facility] [address] [id number] [place] [address]- 3182 Mar, [facility] [place] [facility] [address] [id number] [place] [address]- 4214 Mar, [facility] [place] [facility] [address] [id number] [place] [address]- 4747 Jan, [facility] [place] [facility] [address] [id number] [place] [address]- 8028 Jan, [facility] [place] [facility] [address] [id number] [place] [address]- 2347 31 Jan, 2014 [facility] [place] [facility] [address] [id number] [place] [address]- 7064 31 Jan, 2014 [facility] [place] [facility] [address] [id number] [place] [address]- 7113 14 Jan, 2014 [facility] [place] [facility] [address] [id number] [place] [address]- 3709 14 Jan, 2014 [facility] [place] [facility] [address] [id number] [place] [address]- 5532 Jan, [facility] [place] [facility] [address] [id number] [place] [address]- 0405 Jan, [facility] [place] [facility] [address] [id number] [place] [address]- 9775 19 Dec, 2013 [facility] [place] [facility] [address] [id number] [place] [address]- 0192 19 Dec, 2013 [facility] [place] [facility] [address] [id number] [place] [address]- 0317 15 Dec, 2013 [facility] [place] [facility] [address] [id number] [place] [address]- 3874 15 Dec, 2013 [facility] [place] [facility] [address] [id number] [place] [address]- 4983 15 Dec, 2013 [facility] [place] [facility] [address] [id number] [place] [address]- 4168 15 Dec, 2013 [facility] [place] [facility] [address] [id number] [place] [address]- 4513 12 Dec, 2013 [facility] [place] [facility] [address] [id number] [place] [address]- 5154 Dec, [facility] [place] [facility] [address] [id number] [place] [address]- 9219 Dec, [facility] [place] [facility] [address] [id number] [place] [address]- 4591 Dec, [facility] [place] [facility] [address] [id number] [place] [address]- 9135 Nov, [facility] [place] [facility] [address] [id number] [place] [address]- 7694 Nov, [facility] [place] [facility] [address] [id number] [place] [address] Nov, [facility] [place] [facility] [address] [id number] [place] [address] Nov, [facility] [place] [facility] [address] [id number] [place] [address] Oct, [facility] [place] [facility] [address] [id number] [place] [address] Oct, [facility] [place] [facility] [address] [id number] [place] [address] Oct, [facility] [place] [facility] [address] [id number] [place] [address] Oct, [facility] [place] [facility] [address] [id number] [place] [address] Sep, [facility] [place] [facility] [address] [id number] [place] [address] Sep, [facility] [place] [facility] [address] [id number] [place] [address] Sep, [facility] [place] [facility] [address] [id number] [place] [address] Sep, [facility] [place] [facility] [address] [id number] [place] [address] Sep, [facility] [place] [facility] [address] [id number] [place] [address] Sep, [facility] [place] [facility] [address] [id number] [place] [address] Sep, [facility] [place] [facility] [address] [id number] [place] [address] Sep, [facility] [place] [facility] [address] [id number] [place] [address] August, [facility] [place] [facility] [address] [id number] [place] [address] August, [facility] [place] [facility] [address] [id number] [place] [address] Jul, [facility] [place] [facility] [address] [id number] [place] [address] Jul, [facility] [place] [facility] [address] [id number] [place] [address] Jul, [facility] [place] [facility] [address] [id number] [place] [address] Jul, [facility] [place] [facility] [address] [id number] [place] [address] Jul, [facility] [place] [facility] [address] [id number] [place] [address] Jul, [facility] [place] [facility] [address] [id number] [place] [address] Jul, [facility] [place] [facility] [address] [id number] [place] [address] Jul, [facility] [place] [facility] [address] [id number] [place] [address] Jul, [facility] [place] [facility] [address] [id number] [place] [address] Jul, [facility] [facility] [place] [facility] [address] [id number] [place] [address] Jun, [facility] [place] [facility] [address] [id number] [place] [address] 27 Jun, 2013 [facility] [place] [facility] [address] [id number] [place] [address] 18 Jun, 2013 [facility] [place] [facility] [address] [id number] [place] [address] 18 Jun, 2013 [facility] [place] [facility] [address] [id number] [place] [address] 17 Jun, 2013 [facility] [place] [facility] [address] [id number] [place] [address] 17 Jun, 2013 [facility] [place] [facility] [address] [id number] [place] [address]26 17 Jun, 2013 [facility] [place] [facility] [address] [id number] [place] [address] 17 Jun, 2013 [facility] [place] [facility] [address] [id number] [place] [address] 2951 14 Jun, 2013 [facility] [place] [facility] [address] [id number] [place] [address] 14 Jun, 2013 [facility] [place] [facility] [address] [id number] [place] [address] 07 Jun, 2013 [facility] [place] [facility] [address] [id number] [place] [address]166 Jun, [facility] [place] [facility] [address] [id number] [place] [address] 9568 Jun, [facility] [place] [facility] [address] [id number] [place] [address] Jun, [facility] [place] [facility] [address] [id number] [place] [address] Jun, [facility] [place] [facility] [address] [id number] [place] [address] Jun, [facility] [place] [facility] [address] [id number] [place] [address] May, [facility] [place] [facility] [address] [id number] [place] [address]- [address] May, [facility] [place] [facility] [address] [id number] [place] [address]- [address]397 May, [facility] [place] [facility] [address] [id number] [place] [address]- 3985 May, [facility] [place] [facility] [address] [id number] [place] [address]704 Mar, [facility] [place] [facility] [address] [id number] [place] [address]56 Mar, [facility] [place] [facility] [address] [id number] [place] [address] 8915 Mar, [facility] [place] [facility] [address] [id number] [place] [address] 25[address] Mar, [facility] [address] [id number] [place] [address] Mar, [facility] [place] [facility] [address] [id number] [place] [address] 2549 Mar, [facility] [address] [id number] [place] [address]783 Mar, [facility] [place] [facility] [address] [id number] [place] [address]47 Mar, [facility] [address] [id number] [place] [address] Jan, [facility] [address] [id number] [place] [address] Jan, [facility] [address] [id number] [place] [address] 99[address] Jan, [facility] [address] [id number] [place] [address]- 8485 Jan, [facility] [address] [id number] [place] [address]- [address] Jan, [facility] [address] [id number] [place] [address] 9979 Jan, [facility] [place] [facility] [address] [id number] [place] [address] 4[address] Jan, [facility] [place] [facility] [address] [id number] [place] [address]41 Dec, [facility] [place] [facility] [address] [id number] [place] [address]48 Nov, [facility] [place] [facility] [address] [id number] [place] [address] 2546 Oct, [facility] [place] [facility] [address] [id number] [place] [address]44 Oct, [facility] [place] [facility] [address] [id number] [place] [address] Sep, [facility] [place] [facility] [address] [id number] [place] [address] Sep, [facility] [place] [facility] [address] [id number] [place] [address]- 0799 Sep, [facility] [place] [facility] [address] [id number] [place] [address] August, [facility] [address] [id number] [place] [address]234 Jun, [facility] [place] [facility] [address] [id number] [place] [address] 8861 20 Jun, 2012 [facility] [place] [facility] [address] [id number] [place] [address]- [address]35 15 Jun, 2012 [facility] [address] [id number][place] [address] 15 Jun, 2012 [facility] [place] [facility] [address] [id number] [place] [address] Jun, [facility] [place] [facility] [address] [id number] [place] [address]- [address]304 Jun, [facility] [place] [facility] [address] [id number] [place] [address] Jun, [facility] [place] [facility] [address] [id number][place] [address] May, [facility] [place] [facility] [address] [id number] [place] [address]- 2435 May, [facility] [place] [facility] [address] [id number][place] [address] 14 May, 2012 [facility] [place] [facility] [address] [id number] [place] [address]- 1102 May, [facility] [place] [facility] [address] [id number] [place] [address]- 1000 09 May, 2012 [facility] [address] [id number] [place] [address]- 9482 May, [facility] [place] [facility] [address] [id number] [place] [address]- 8276 May, [facility] [address] [id number] [place] [address] 1211 Mar, [facility] [place] [facility] [address] [id number] [place] [address] Mar, [facility] [address] [id number] [place] [address]- 5462 Mar, [facility] [place] [facility] [address] [id number] [place] [address]- 5291 Mar, [facility] [address] [id number] [place] [address]- 9060 Mar, [facility] [place] [facility] [address] [id number] [place] [address]- 4564 Mar, [facility] [place] [facility] [address] [id number] [place] [address]- 4083 Mar, [facility] [place] [facility] [address] [facility] [id number] [place] [address]- 2784 Mar, [facility] [place] [facility] [address] [id number] [place] [address]- 3236 Mar, [facility] [place] [facility] [address] [id number] [place] [address]- 7670 Mar, [facility] [place] [facility] [address] [id number] [place] [address]- 9079 Mar, [facility] [place] [facility] [address] [id number] [place] [address]- 5377 Mar, [facility] [place] [facility] [address] [id number] [place] [address]- 7668 Mar, [facility] [place] [facility] [address] [id number] [place] [address]- 6509 Mar, [facility] [place] [facility] [address] [id number] [place] [address]- 8603 Mar, [facility] [place] [facility] [address] [id number] [place] [address]- 1989 Mar, [facility] [place] [facility] [address] [id number] [place] [address], [place] [address]- 1428 Mar, [facility] [place] [facility] [address] [id number] [place] [address]- 9928 Mar, [facility] [place] [facility] [address] [id number] [place] [address]- 8925 Mar, [facility] [place] [facility] [address] [id number] [place] [address]- 0611 Jan, [facility] [place] [facility] [address] [id number] [place] [address]- 7088 Jan, [facility] [place] [facility] [address] [id number] [place] [address]- 5804 Jan, [facility] [place] [facility] [address] [id number] [place] [address]- 5236 Jan, [facility] [place] [facility] [address] [id number] [place] [address]- 7785 Dec, [facility] [place] [facility] [address] [id number] [place] [address]- 7347 18 Dec, 2011 [facility] [place] [facility] [address] [id number] [place] [address]- 9537 06 Dec, 2011 [facility] [place] [facility] [address] [id number] [place] [address]- 7852 Nov, [facility] [place] [facility] [address] [id number] [place] [address]- 2193 17 Nov, 2011 [facility] [place] [facility] [address] [id number] [place] [address]- [address]21 Oct, [facility] [address] [facility] [id number] [place] [address]- 9105 Oct, [facility] [address] [facility] [id number] [address] Oct, [facility] [address] [facility] [id number][place] [address]- [address]26 Oct, [facility] [address] [facility] [id number] [address] Oct, [facility] [address] [facility] [id number][place] [address]- [address]50 Oct, IMMUNIZATIONS No Known Immunizations SOCIAL HISTORY Never Assessed REASON FOR VISIT continued bilat knee pain- unresponsive to conservative management and injections, Consult with Sveta Saleh MA PLAN OF CARE Activity Details Follow Up prn Reason: VITAL SIGNS Height 63 in 2017-08-24 Blood pressure systolic 118 mmHg 2017-08-24 Blood pressure diastolic 70 mmHg 2017-08-24 MEDICATIONS Unknown Medications RESULTS No Results PROCEDURES Procedure Date Ordered Result Body Site DRAIN/INJECT, JOINT/BURSA August 24, 2017 DEPO MEDROL 80 MG/ML August 24, 2017 INSTRUCTIONS MEDICATIONS ADMINISTERED No Known Medications [...]
--- OUTSIDE RECORDS SUMMARY | 2018-05-15 06:21 | XMS REPORT ---
Author Author RAY NEVAREZ [facility] Address [address] [place] [address] Care Team Providers Care Chip Drier Name Role Phone RAY NEVAREZ Unavailable PROBLEMS Type Condition ICD9-CM Code TGW10-BC Code Onset Dates Condition Status SNOMED Code Problem Major depressive disorder, single episode, unspecified F32.9 Active 59263912 Problem Schizoaffective disorder, bipolar type F25.0 Active 41699783 Problem Neuropathy G62.9 Active 420021280 Problem COPD suggested by initial evaluation J44.9 Active 87204886 Problem Body mass index (BMI) of 45.0-49.9 in adult Z68.42 Active 039979879 Problem Post-menopausal bleeding N95.0 Active 72629278 Problem 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 Active 543019029 Problem Morbid (severe) obesity due to excess calories E66.01 Active 909583741 Problem Primary osteoarthritis of left knee M17.12 Active 688564418 Problem Obstructive sleep apnea G47.33 Active 37675089 Problem Bipolar 1 disorder F31.9 Active 740072269 Problem Edema R60.9 Active 411987507 Problem Depression F32.9 Active 56099381 Problem Obesity E66.9 Active 495840031 Problem GERD (gastroesophageal reflux disease) K21.9 Active 867336253 Problem Environmental allergies Z91.09 Active 790294335 ALLERGIES No Information ENCOUNTERS Encounter Location Date Diagnosis [facility] [id number] [address] Jan, [facility] [id number], [place] [address] Oct, [facility] [id number], [place] [address] Oct, [facility] [id number] [place] [address] 90847- 1413 Oct, 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 [facility] [id number] [place] [address] 01849- 9014 Oct, Schizoaffective disorder, bipolar type F25.0 ; 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 and 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 [facility] [id number] [place] [address] 84914- 8646 Oct, Prediabetes R73.03 ; COPD suggested by initial evaluation J44.9 ; BMI 45.0-49.9, adult Z68.42 and Obstructive sleep apnea G47.33 [facility] [id number] [place] [address] 29544- 1853 Sep, [facility] [id number] [place] [address] 02626- 7898 August, Neuropathy G62.9 [facility] [id number] [place] [address] 08559- 0045 August, [facility] [id number] [place] [address] 68519- 8782 August, [facility] [id number] [place] [address] 21125- 1657 Jul, [facility] [id number] [place] [address] 97343- 3994 Jul, Primary osteoarthritis of left knee M17.12 [facility] [id number] [place] [address] 25087- 3027 Jul, Schizoaffective disorder, bipolar type F25.0 and 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 [facility] [id number] [place] [address] 76617- 5689 Jul, Prediabetes R73.03 ; Primary osteoarthritis of left knee M17.12 ; GERD (gastroesophageal reflux disease) K21.9 ; Bipolar 1 disorder F31.9 ; Depression F32.9 ; Environmental allergies Z91.09 ; Neuropathy G62.9 ; Edema R60.9 ; Body mass index (BMI) of 45.0-49.9 in adult Z68.42 and Morbid ( severe) obesity due to excess calories E66.01 [facility] [address] 63785- 6214 Jul, [facility] [address] 98597- 8828 Jun, [facility] [address] 74642- 7114 Jun, [address] [address]- 4910 Jun, Wound of right breast, initial encounter S21.001A and Prediabetes R73.[address] [address]49- 5071 Jun, [address] 06927- 8021 May, GERD (gastroesophageal reflux disease) K21.[address] 45090- 1495 May, Primary osteoarthritis of left knee M17.[address] 06833- 5540 May, Schizoaffective disorder, bipolar type F25.0 and 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 67774- 6706 May, Left medial knee pain M25.562 ; GERD (gastroesophageal reflux disease) K21.9 ; Depression F32.9 ; Neuropathy G62.9 ; Obesity E66.9 ; Prediabetes R73.03 and Edema R60.[address] 43703- 1235 Mar, [address] 38041- 3183 Mar, [facility] [id number] [place] [address] 02237- 8155 Mar, Post-menopausal bleeding N95.0 and BMI 50.0-59.9, adult Z68.43 [facility] [id number], [place] [address] 6492 Mar, [facility] [id number] [place] [address] 85285- 2584 Mar, Schizoaffective disorder, bipolar type F25.0 and 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 [facility] [id number] [place] [address] 69549- 5238 Mar, [facility] [id number] [place] [address] 29594- 3210 Mar, [facility] [id number] [place] [address] 08387- 1787 Mar, Post-menopausal bleeding N95.0 ; Screening breast examination Z12.31 ; Screen for STD (sexually transmitted disease) Z11.3 ; Obesity E66.9 ; Family history of ovarian cancer Z80.41 and Family history of cervical cancer Z80.49 [facility] [id number], [place] [address] 74[address] Mar, [facility] [id number], [place] [address]- 1198 Mar, [facility] [id number] [place] [address] 57779- 2064 Jan, Schizoaffective disorder, bipolar type F25.0 and 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 [facility] [id number] [place] [address] 21632- 5478 Jan, Schizoaffective disorder, bipolar type F25.0 [facility] [id number] [place] [address] 86594- 2896 Jan, [facility] [id number], [place] [address] 5255 Jan, Prediabetes R73.03 and Obesity E66.9 [facility] [id number] [place] [address] 37322- 6172 05 Jan, 2017 Encounter for immunization Z23 [facility] [id number] [place] [address] 00822- 3283 Jan, [facility] [id number] [place] [address] 95521- 9240 Dec, [facility] [id number] [place] [address] 63576- 2565 Dec, [facility] [id number] [place] [address] 50461- 4634 Nov, Neuropathy G62.9 [facility] [id number] [place] [address] 30152- 8057 Nov, [facility] [id number] [place] [address] 44389- 9830 Nov, Schizoaffective disorder, bipolar type F25.0 [facility] [id number] [place] [address] 91273- 7908 Nov, 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 and Schizoaffective disorder, bipolar type F25.0 [facility] [address] [address]- 7389 Oct, Schizoaffective disorder, bipolar type F25.0 ; 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 and 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 [facility] [id number] [place] [address] [id number] Oct, Dental caries K02.9 [facility] [address], [place] [address]- 1208 Sep, Neuropathy G62.9 [facility] [id number] [place] [address] 00784- 2248 Sep, [facility] [id number] [place] [address] 69936- 1472 Sep, Neuropathy G62.9 [facility] [id number] [place] [address] 49467- 9171 Jul, Schizoaffective disorder, depressive type F25.1 [facility] [address] 03260- 0053 Jul, GERD (gastroesophageal reflux disease) K21.9 ; Joint pain of lower extremity M25.50 ; Environmental allergies Z91.09 ; Stress incontinence of urine N39.3 ; Neuropathy G62.9 ; Edema R60.9 and Acute pain of left knee M25.562 [facility] [id number] [place] [address] 78428- 2343 Jun, [facility] [address] [id number] Jun, Dental examination Z01.20 [facility] [id number] [place] [address] 81542- 6337 Jun, [facility] [id number] [place] [address] 96005- 9634 May, [facility] [id number] [place] [address] 53952- 8676 May, Bipolar 1 disorder F31.9 ; Joint pain of lower extremity M25.50 ; Environmental allergies Z91.09 ; Stress incontinence of urine N39.3 ; Major depressive disorder, single episode, unspecified F32.9 ; Dizzy R42 ; Schizoaffective disorder, unspecified F25.9 ; Neuropathy G62.9 ; Localized edema R60.0 and GERD (gastroesophageal reflux disease) K21.9 [facility] [id number] [place] [address] 47604- 6566 May, Schizoaffective disorder, depressive type F25.1 [facility] [id number] [place] [address] 13899- 4412 May, Environmental allergies Z91.09 and Major depressive disorder , single episode, unspecified F32.9 [facility] [id number] [place] [address] 04744- 9025 Mar, Dental caries K02.9 [facility] [id number] [place] [address] 73174- 6651 Mar, Dental caries on smooth surface penetrating into pulp K02.63 [facility] [address] 10921 -1446 Mar, Peripheral edema R60.9 and Dry skin L85.3 [address] 45494- 8387 Mar, [facility] [address] 35234- 4113 Mar, Major depressive disorder, single episode, unspecified F32.9 [facility] [id number] [place] [address] 10027- 0417 Mar, Dental caries K02.9 [facility] [id number] [place] [address] 02270- 8288 07 Mar, 2016 Diabetes mellitus with complication E11.8 ; Urinary frequency R35.0 ; Stress incontinence of urine N39.3 ; Joint pain of lower extremity M25.50 ; Obesity E66.9 ; Environmental allergies Z91.09 ; Depression F32.9 ; Schizoaffective disorder, unspecified F25.9 ; Vaginal discharge N89.8 and Vaginal candidiasis B37.3 [facility] [id number] [place] [address] 27057- 8957 Jan, Schizoaffective disorder, unspecified F25.9 [facility] [id number] [place] [address] 22227- 7951 Jan, [facility] [id number] [place] [address] 80152- 3673 30 Dec, 2015 [facility] [id number] [place] [address] 32496- 3578 19 Dec, 2015 Dental caries K02.9 [facility] [id number] [place] [address] 97429- 4944 14 Dec, 2015 Obesity E66.9 ; Edema R60.9 ; Depression F32.9 ; Bipolar 1 disorder F31.9 ; 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 ; Environmental allergies Z91.09 ; Shortness of breath R06.02 ; Gastroesophageal reflux disease with esophagitis K21.0 ; Other chronic pain G89.29 ; Pain in right knee M25.561 ; Pain in left knee M25.562 and Encounter for immunization Z23 [facility] [id number] [place] [address] 05580- 5077 Nov, Dental caries K02.9 [facility] [id number] [place] [address] 31768- 0350 Oct, Schizoaffective disorder, unspecified F25.9 [facility] [id number] [place] [address] 00673- 6053 Oct, Dental examination Z01.20 [facility] [id number] [place] [address] 07028- 6566 Sep, Dental examination Z01.20 and Dental caries K02.9 [facility] [id number] [place] [address] 39144- 2864 13 Sep, 2015 [facility] [id number] [place] [address] 50270- 9050 Sep, [facility] [address] 70137- 3242 Sep, [facility] [id number] [place] [address] 39904- 7846 07 Sep, 2015 Schizoaffective disorder, unspecified F25.9 [facility] [address] 11840- 4926 August, Bipolar disorder, unspecified F31.9 [facility] [address] 63863- 7999 Jul, Edema R60.9 and Obesity E66.9 [facility] [address] 91579- 5485 Jul, Edema R60.9 [facility] [address] 35135- 1199 Jul, Edema R60.9 [facility] [address] 58497 -0306 Jul, Edema R60.9 [address] 80772- 3101 Jul, [place] [place] [address] 55794- 7799 Jul, [facility] [address] 49680- 0207 24 Jun, 2015 Environmental allergies V15.09 and Cough R05 [address] [address] 43242- 4000 17 Jun, 2015 Environmental allergies V15.09 ; Edema R60.9 and Cough R05 [facility] [id number] [place] [address] 08133 -3241 Jun, Bronchospasm J98.01 [facility] [id number] [place] [address] 86968- 6404 10 Jun, 2015 [address] [address] 74085- 8064 Jun, [facility] [address] 93216- 8951 08 Jun, 2015 Environmental allergies V15.09 ; Bipolar 1 disorder F31.9 ; GERD (gastroesophageal reflux disease) K21.9 ; Depression F32.9 ; Joint pain of lower extremity M25.50 ; COPD (chronic obstructive pulmonary disease) J44.9 and Screening for diabetes mellitus Z13.1 [facility] [id number] [place] [address] 30374- 3320 16 Jun, 2015 [address] [address] 87484- 4826 May, [facility] [address] 87454- 1015 14 May, 2015 Schizoaffective disorder, unspecified F25.9 and Bipolar [address] 04887- 2898 May, [facility] [place] [address] 02381- 2664 12 May, 2015 URI (upper respiratory infection) J06.9 ; Environmental allergies V15.09 and Cough R05 [facility] [id number] [place] [address] 93668- 7219 18 Mar, 2015 [address] [address] 13485- 1849 15 Mar, 2015 Vaginal discharge N89.8 [facility] [address] 57968- 3101 14 Mar, 2015 Schizoaffective disorder, unspecified F25.9 ; Major depressive disorder, single episode, unspecified F32.9 and Bipolar 1 disorder F31.9 [facility] [id number] [place] [address] 59441- 0993 Mar, [facility] [address] 52517- 6667 Mar, Bipolar 1 disorder F31.9 [facility] [id number] [place] [address] 98436- 9874 Jan, [facility] [address] 95985- 3155 Jan, Allergic rhinitis J30.9 and Cough R05 [facility] [id number] [place] [address] 38426- 9748 Jan, 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 ; Bipolar 1 disorder F31.9 ; GERD ( gastroesophageal reflux disease) K21.9 ; Depression F32.9 and Joint pain of lower extremity M25.50 [facility] [address] 55550- 2471 Dec, Encounter for immunization Z23 [facility] [address] 06026- 3137 Dec, Schizoaffective disorder, unspecified 295.70 ; Pain in joint , lower leg 719.46 ; Esophageal reflux 530.81 ; Bipolar 1 disorder 296.7 ; Depression 311 ; GERD (gastroesophageal reflux disease) 530.81 and Environmental allergies V15.09 [facility] [address] [id number] Nov, Dental examination V72.2 [facility] [address] 21819- 2868 Nov, Acute bronchitis 466.0 [facility] [address] 03847- 2946 Nov, Schizoaffective disorder, unspecified 295.70 and Bipolar disorder, unspecified 296.80 [facility] [id number] [place] [address] [id number] Sep, Dental examination V72.2 [facility] [id number] [place] [address] [id number] August, Dental examination V72.2 [facility] [address] 72007- 8878 August, Schizoaffective disorder, unspecified 295.70 [facility] [id number] [place] [address] [id number]- 9693 August, [facility] [address] 08754- 9726 August, Vomiting 787.03 [facility] [id number] 3168 August, Vomiting and diarrhea 787.03 and High risk medication use V58.69 [facility] [address], [place] [address]- 8634 30 Jul, 2014 [facility] [id number] [place] [address] 95017- 0343 Jul, [facility] [id number], [place] [address]- 6609 Jul, [facility] [id number] [place] [address] 23286- 7060 Jun, [facility] [address] [address]- 3432 Jun, [facility] [id number] [place] [address] 07389- 2352 Jun, [facility] [id number], [place] [address]- 1406 Jun, [facility] [address], [place] [address]- 4024 16 Jun, 2014 [facility] [id number], [place] [address]- 0547 Jun, [facility] [id number] [address]- 1209 Jun, [facility] [id number]- 9021 Jun, [facility] [id number] [address]- 2600 Jun, [facility] [id number] [address]- 8370 Mar, [facility] [id number] [address]- 3180 Mar, [facility] [place] [facility] [address] [id number] [place] [address]- 0643 Mar, [facility] [place] [facility] [address] [id number] [place] 9267 Mar, [facility] [place] [facility] [address] [id number] [place] 2418 Mar, [facility] [place] [facility] [address] [id number] [place] [address]- 1237 Mar, [facility] [place] [facility] [address] [id number] [place]- 6544 Mar, [facility] [place] [facility] [address] [id number] [place] [address]- 1824 Mar, [facility] [place] [facility] [address] [id number] [place] [address]- 6242 Mar, [facility] [place] [facility] [address] [id number] [place] [address]- 2173 Mar, [facility] [place] [facility] [address] [id number] [place] [address]- 0578 Jan, [facility] [place] [facility] [address] [id number] [place] [address]- 9930 Jan, [facility] [place] [facility] [address] [id number] [place] [address]- 2653 31 Jan, 2014 [facility] [place] [facility] [address] [id number] [place] [address]- 0369 31 Jan, 2014 [facility] [place] [facility] [address] [id number] [place] [address]- 8008 14 Jan, 2014 [facility] [place] [facility] [address] [id number] [place] [address]- 1778 14 Jan, 2014 [facility] [place] [facility] [address] [id number] [place] [address]- 4646 Jan, [facility] [place] [facility] [address] [id number] [place] [address]- 5194 Jan, [facility] [place] [facility] [address] [id number] [place] [address]- 2295 19 Dec, 2013 [facility] [place] [facility] [address] [id number] [place] [address]- 2302 19 Dec, 2013 [facility] [place] [facility] [address] [id number] [place] [address]- 8223 15 Dec, 2013 [facility] [place] [facility] [address] [id number] [place] [address]- 6240 15 Dec, 2013 [facility] [place] [facility] [address] [id number] [place] [address]- 4836 15 Dec, 2013 [facility] [place] [facility] [address] [id number] [place] [address]- 9708 15 Dec, 2013 [facility] [place] [facility] [address] [id number] [place] [address]- 3833 12 Dec, 2013 [facility] [place] [facility] [address] [id number] [place] [address]- 2775 Dec, [facility] [place] [facility] [address] [id number] [place] [address]- 9289 Dec, [facility] [place] [facility] [address] [id number] [place] [address] Dec, [facility] [place] [facility] [address] [id number] [place] [address] Nov, [facility] [place] [facility] [address] [id number] [place] [address] Nov, [facility] [place] [facility] [address] [id number] [place] [address] Nov, [facility] [place] [facility] [address] [id number] [place] [address] Nov, [facility] [place] [facility] [address] [id number] [place] [address] Oct, [facility] [place] [facility] [address] [id number] [place] [address] Oct, [facility] [place] [facility] [address] [id number] [place] [address] Oct, [facility] [place] [facility] [address] [id number] [place] [address] Oct, [facility] [place] [facility] [address] [id number] [place] [address] Sep, [facility] [place] [facility] [address] [id number] [place] [address] Sep, [facility] [place] [facility] [address] [id number] [place] [address] Sep, [facility] [place] [facility] [address] [id number] [place] [address] Sep, [facility] [place] [facility] [address] [id number] [place] [address] Sep, [facility] [place] [facility] [address] [id number] [place] [address] Sep, [facility] [place] [facility] [address] [id number] [place] [address] Sep, [facility] [place] [facility] [address] [id number] [place] [address] Sep, [facility] [place] [facility] [address] [id number] [place] [address] August, [facility] [place] [facility] [address] [id number] [place] [address] August, [facility] [place] [facility] [address] [id number] [place] [address] Jul, [facility] [place] [facility] [address] [id number] [place] [address] Jul, [facility] [place] [facility] [address] [id number] [place] [address] Jul, [facility] [place] [facility] [address] [id number] [place] [address] Jul, [facility] [place] [facility] [address] [id number] [place] [address] Jul, [facility] [place] [facility] [address] [id number] [place] [address] Jul, [facility] [place] [facility] [address] [id number] [place] [address] Jul, [facility] [place] [facility] [address] [id number] [place] [address] Jul, [facility] [place] [facility] [address] [id number] [place] [address] Jul, [facility] [place] [facility] [address] [id number] [place] [address] Jul, [facility] [place] [facility] [address] [id number] [place] [address] Jun, [facility] [place] [facility] [address] [id number] [place] [address] 27 Jun, 2013 [facility] [place] [facility] [address] [address] [id number] [place] [address] 18 Jun, 2013 [facility] [place] [facility] [address] [id number] [place] [address] 18 Jun, 2013 [facility] [place] [facility] [address] [id number] [place] [address] 17 Jun, 2013 [facility] [place] [facility] [address] [id number] [place] [address] 17 Jun, 2013 [facility] [place] [facility] [address] [id number] [place] [address] 17 Jun, 2013 [facility] [place] [facility] [address] [id number] [place] [address]- 0425 17 Jun, 2013 [facility] [place] [facility] [address] [id number] [place] [address] 14 Jun, 2013 [facility] [place] [facility] [address] [id number] [place] [address]- 6[address] 14 Jun, 2013 [facility] [place] [facility] [address] [id number] [place] [address] 3739 07 Jun, 2013 [facility] [place] [facility] [address] [id number] [place] [address] 2807 Jun, [facility] [place] [facility] [address] [id number] [place] [address]- 1517 Jun, [facility] [place] [facility] [address] [id number] [place] [address]- 1244 Jun, [facility] [place] [facility] [address] [id number] [place] [address]- 5461 Jun, [facility] [place] [facility] [address] [id number] [place] [address]- 7182 Jun, [facility] [place] [facility] [address] [id number] [place] [address] May, [facility] [place] [facility] [address] [id number] [place] [address]- [address]25 May, [facility] [place] [facility] [address] [id number] [place] [address]- 6230 May, [facility] [place] [facility] [address] [id number] [place] [address]- 9918 May, [facility] [place] [facility] [address] [id number] [place] [address]- 4774 Mar, [facility] [place] [facility] [address] [id number] [place] [address]- [address] Mar, [facility] [place] [facility] [address] [id number] [place] [address]- 9373 Mar, [facility] [place] [facility] [address] [id number] [place] [address] 2540 Mar, [facility] [address] [id number] [place] [address]- 4975 Mar, [facility] [place] [facility] [address] [id number] [place] [address] 254 Mar, [facility] [address] [id number] [place] [address]- 7925 Mar, [facility] [place] [facility] [address] [id number] [place] [address]- 2542 Mar, [facility] [address] [id number] [place] [address]- 3325 Jan, [facility] [address] [id number] [place] [address]- 1145 Jan, [facility] [address] [id number] [place] [address]- 6113 Jan, [facility] [address] [id number] [place] [address]- 8602 Jan, [facility] [address] [id number] [place] [address]- 4329 Jan, [facility] [address] [id number] [place] [address]- 3300 Jan, [facility] [place] [facility] [address] [id number] [place] [address]- 2190 Jan, [facility] [place] [facility] [address] [id number] [place] [address]- 2543 Dec, [facility] [place] [facility] [address] [id number] [place] [address]- 2542 Nov, [facility] [place] [facility] [address] [id number] [place] [address]- 2546 Oct, [facility] [place] [facility] [address] [id number] [place] [address]- 2543 Oct, [facility] [place] [facility] [address] [id number] [place] [address] 6758 Sep, [facility] [place] [facility] [address] [id number] [place] [address]- 0631 Sep, [facility] [place] [facility] [address] [id number] [place] [address]- 4192 Sep, [facility] [place] [facility] [address] [id number] [place] [address]- [address]758 August, [facility] [address] [id number] [place] [address]- 8386 Jun, [facility] [place] [facility] [address] [id number] [place] [address]- 4328 20 Jun, 2012 [facility] [place] [facility] [address] [id number] [place] [address]- 6625 15 Jun, 2012 [facility] [address] [id number], [place] [address]- 9[address] 15 Jun, 2012 [facility] [place] [facility] [address] [id number] [place] [address]- 9083 Jun, [facility] [place] [facility] [address] [id number] [place] [address]- 3029 Jun, [facility] [place] [facility] [address] [id number] [place] [address]- 8632 Jun, [facility] [place] [facility] [address] [id number], [place] [address] 24[address] May, [facility] [place] [facility] [address] [id number] [place] [address]- 2864 May, [facility] [place] [facility] [address] [id number], [place] [address]- [address] 14 May, 2012 [facility] [place] [facility] [address] [id number] [place] [address]- 2385 May, [facility] [place] [facility] [address] [id number] [place] [address]- 5198 09 May, 2012 [facility] [address] [id number] [place] [address]- 7444 May, [facility] [place] [facility] [address] [id number] [place] [address]- 7626 May, [facility] [address] [id number] [place] [address]- 0390 Mar, [facility] [place] [facility] [address] [id number] [place] [address]- 5665 Mar, [facility] [address] [id number] [place] [address]- 5510 Mar, [facility] [place] [facility] [address] [id number] [place] [address]- 1675 Mar, [facility] [address] [id number] [place] [address]- 1991 Mar, [facility] [place] [facility] [address] [id number] [place] [address]- 1243 Mar, [facility] [place] [facility] [address] [id number] [place] [address]- 7041 Mar, [facility] [place] [facility] [address] [facility] [id number] [place] [address]- 8027 Mar, [facility] [place] [facility] [address] [id number] [place] [address]- 1292 Mar, [facility] [place] [facility] [address] [id number] [place] [address]- 1972 Mar, [facility] [place] [facility] [address] [id number] [place] [address]- 5963 Mar, [facility] [place] [facility] [address] [id number] [place] [address]- 5269 Mar, [facility] [place] [facility] [address] [id number] [place] [address]- 3633 Mar, [facility] [place] [facility] [address] [id number] [place] [address]- 3251 Mar, [facility] [place] [facility] [address] [id number] [place] [address]- 0838 Mar, [facility] [place] [facility] [address] [id number] [place] [address]- 5399 Mar, [facility] [place] [facility] [address] [id number] [place] [address], [place] [address]- [address]172 Mar, [facility] [place] [facility] [address] [id number] [place] [address]- 3896 Mar, [facility] [place] [facility] [address] [id number] [place] [address]- 1707 Mar, [facility] [place] [facility] [address] [id number] [place] [address]- 4204 Jan, [facility] [place] [facility] [address] [id number] [place] [address]- 7218 Jan, [facility] [place] [facility] [address] [id number] [place] [address]- 7348 Jan, [facility] [place] [facility] [address] [id number] [place] [address]- 0032 Jan, [facility] [place] [facility] [address] [id number] [place] [address]- 3147 Dec, [facility] [place] [facility] [address] [id number] [place] [address]- 9888 18 Dec, 2011 [facility] [place] [facility] [address] [id number] [place] [address]- 7289 06 Dec, 2011 [facility] [place] [facility] [address] [id number] [place] [address]- 8121 Nov, [facility] [place] [facility] [address] [id number] [place] [address]- 5826 17 Nov, 2011 [facility] [place] [facility] [address] [id number], [place] [address]- 3688 Oct, [facility] [address] [facility] [id number], [place] [address]- 1542 Oct, [facility] [address] [id number], [place] [address] Oct, [facility] [address] [facility] [id number], [place] [address]- [address]46 Oct, [facility] [address] [id number], [place] [address]- 4208 Oct, [facility] [address] [facility] [id number], [place] [address]- 2694 Oct, IMMUNIZATIONS No Known Immunizations SOCIAL HISTORY [...]
--- OUTSIDE RECORDS SUMMARY | 2018-05-15 06:22 | XMS REPORT ---
Author Author RAY NEVAREZ [facility] Address [address] [place] [address] Care Team Providers Care Assembler Ping Pong Table Name Role Phone RAY NEVAREZ Unavailable PROBLEMS Type Condition ICD9-CM Code [id number] Code Onset Dates Condition Status SNOMED Code Problem Major depressive disorder, single episode, unspecified F32.9 Active 57898109 Problem Schizoaffective disorder, bipolar type F25.0 Active 02243452 Problem Neuropathy G62.9 Active 942289003 Problem COPD suggested by initial evaluation J44.9 Active 52384781 Problem Body mass index (BMI) of 45.0-49.9 in adult Z68.42 Active 127440566 Problem Post-menopausal bleeding N95.0 Active 47622573 Problem 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 Active 160579661 Problem Morbid (severe) obesity due to excess calories E66.01 Active 903583368 Problem Primary osteoarthritis of left knee M17.12 Active 148445379 Problem Obstructive sleep apnea G47.33 Active 83501144 Problem Bipolar 1 disorder F31.9 Active 234632700 Problem Edema R60.9 Active 758705759 Problem Depression F32.9 Active 94567685 Problem Obesity E66.9 Active 876369508 Problem GERD (gastroesophageal reflux disease) K21.9 Active 203720548 Problem Environmental allergies Z91.09 Active 291558700 ALLERGIES No Information ENCOUNTERS Encounter Location Date Diagnosis [facility] [id number], [place] [address] Jan, [facility] [address], [place] [address] Oct, [facility] [address], [place] [address] Oct, [facility] [id number] [place] [address] 71644- 0207 Oct, Other oysterman (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 Z79.899 [facility] [id number] [place] [address] 63142- 3020 Oct, Schizoaffective disorder, bipolar type F25.0 ; 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 and Other oysterman (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 Z79.899 [facility] [id number] [place] [address] 73511- 9179 Oct, Prediabetes R73.03 ; COPD suggested by initial evaluation J44.9 ; BMI 45.0-49.9, adult Z68.42 and Obstructive sleep apnea G47.33 [facility] [id number] [place] [address] 04794- 8513 Sep, [facility] [id number] [place] [address] 30243- 1303 August, Neuropathy G62.9 [facility] [id number] [place] [address] 80873- 0643 August, [facility] [id number] [place] [address] 05185- 8577 August, [facility] [id number] [place] [address] 72418- 3112 Jul, [facility] [id number] [place] [address] 97259- 8694 Jul, Primary osteoarthritis of left knee M17.12 [facility] [id number] [place] [address] 79961- 1759 Jul, Schizoaffective disorder, bipolar type F25.0 and 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 [facility] [id number] [place] [address] 14485- 5411 Jul, Prediabetes R73.03 ; Primary osteoarthritis of left knee M17.12 ; GERD (gastroesophageal reflux disease) K21.9 ; Bipolar 1 disorder F31.9 ; Depression F32.9 ; Environmental allergies Z91.09 ; Neuropathy G62.9 ; Edema R60.9 ; Body mass index (BMI) of 45.0-49.9 in adult Z68.42 and Morbid ( severe) obesity due to excess calories E66.01 [facility] [address] 60535- 3200 Jul, [facility] [address] 29013- 9355 Jun, [facility] [address] 09365- 3206 Jun, [address] [address]43- 9765 Jun, Wound of right breast, initial encounter S21.001A and Prediabetes R73.[address] 39155- 7183 Jun, [address] 65403- 4462 May, GERD (gastroesophageal reflux disease) K21.[address] 61217- 1799 May, Primary osteoarthritis of left knee M17.[address] 07398- 8527 May, Schizoaffective disorder, bipolar type F25.0 and 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 02134- 1059 May, Left medial knee pain M25.562 ; GERD (gastroesophageal reflux disease) K21.9 ; Depression F32.9 ; Neuropathy G62.9 ; Obesity E66.9 ; Prediabetes R73.03 and Edema R60.[address] 33051- 3977 Mar, [address] 18794- 7144 Mar, [facility] [id number] [place] [address] 74351- 8522 Mar, Post-menopausal bleeding N95.0 and BMI 50.0-59.9, adult Z68.43 [facility] [address], [place] [address] 7983 Mar, [facility] [id number] [place] [address] 47493- 1388 Mar, Schizoaffective disorder, bipolar type F25.0 and 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 [facility] [id number] [place] [address] 79910- 2511 Mar, [facility] [id number] [place] [address] 52422- 1104 Mar, [facility] [id number] [place] [address] 60954- 7152 Mar, Post-menopausal bleeding N95.0 ; Screening breast examination Z12.31 ; Screen for STD (sexually transmitted disease) Z11.3 ; Obesity E66.9 ; Family history of ovarian cancer Z80.41 and Family history of cervical cancer Z80.49 [facility] [address], [place] [address] 4713 Mar, [facility] [address], [place] [address]- 9431 Mar, [facility] [id number] [place] [address] 51662- 0050 Jan, Schizoaffective disorder, bipolar type F25.0 and 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 [facility] [address] [place] [address] 98022- 2041 Jan, Schizoaffective disorder, bipolar type F25.0 [facility] [address] [place] [address] 57023- 0454 Jan, [facility] [address], [place] [address] 2113 Jan, Prediabetes R73.03 and Obesity E66.9 [facility] [address] [place] [address] 28051- 3554 05 Jan, 2017 Encounter for immunization Z23 [facility] [id number] [place] [address] 41756- 0937 Jan, [facility] [id number] [place] [address] 23200- 3599 Dec, [facility] [id number] [place] [address] 98597- 5348 Dec, [facility] [id number] [place] [address] 25785- 2602 Nov, Neuropathy G62.9 [facility] [id number] [place] [address] 73165- 1883 Nov, [facility] [id number] [place] [address] 59370- 5937 Nov, Schizoaffective disorder, bipolar type F25.0 [facility] [id number] [place] [address] 86379- 9330 Nov, Other oysterman (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 Z79.899 and Schizoaffective disorder, bipolar type F25.0 [facility] [address], [place] [address]- 3050 Oct, Schizoaffective disorder, bipolar type F25.0 ; Other oysterman (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 Z79.899 and 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 [facility] [address] [place] [address] [id number] Oct, Dental caries K02.9 [facility] [address], [place] [address]- 7059 Sep, Neuropathy G62.9 [facility] [id number] [place] [address] 08492- 2753 Sep, [facility] [id number] [place] [address] 02943- 1697 Sep, Neuropathy G62.9 [facility] [id number] [place] [address] 54031- 9181 Jul, Schizoaffective disorder, depressive type F25.1 [facility] [address] 96140- 1009 Jul, GERD (gastroesophageal reflux disease) K21.9 ; Joint pain of lower extremity M25.50 ; Environmental allergies Z91.09 ; Stress incontinence of urine N39.3 ; Neuropathy G62.9 ; Edema R60.9 and Acute pain of left knee M25.562 [facility] [id number] [place] [address] 68547- 0816 Jun, [facility] [address] [id number] Jun, Dental examination Z01.20 [facility] [id number] [place] [address] 62024- 7172 Jun, [facility] [id number] [place] [address] 39816- 8864 May, [facility] [id number] [place] [address] 11441- 1101 May, Bipolar 1 disorder F31.9 ; Joint pain of lower extremity M25.50 ; Environmental allergies Z91.09 ; Stress incontinence of urine N39.3 ; Major depressive disorder, single episode, unspecified F32.9 ; Dizzy R42 ; Schizoaffective disorder, unspecified F25.9 ; Neuropathy G62.9 ; Localized edema R60.0 and GERD (gastroesophageal reflux disease) K21.9 [facility] [id number] [place] [address] 11796- 1811 May, Schizoaffective disorder, depressive type F25.1 [facility] [id number] [place] [address] 95130- 5609 May, Environmental allergies Z91.09 and Major depressive disorder , single episode, unspecified F32.9 [facility] [id number] [place] [address] 25352- 4758 Mar, Dental caries K02.9 [facility] [id number] [place] [address] 08896- 7736 Mar, Dental caries on smooth surface penetrating into pulp K02.63 [facility] [address] 26014 -3786 Mar, Peripheral edema R60.9 and Dry skin L85.3 [facility] [address] 19147- 2422 Mar, [facility] [address] 49417- 8832 Mar, Major depressive disorder, single episode, unspecified F32.9 [facility] [id number] [place] [address] 45300- 0317 Mar, Dental caries K02.9 [facility] [id number] [place] [address] 11445- 0950 07 Mar, 2016 Diabetes mellitus with complication E11.8 ; Urinary frequency R35.0 ; Stress incontinence of urine N39.3 ; Joint pain of lower extremity M25.50 ; Obesity E66.9 ; Environmental allergies Z91.09 ; Depression F32.9 ; Schizoaffective disorder, unspecified F25.9 ; Vaginal discharge N89.8 and Vaginal candidiasis B37.3 [facility] [id number] [place] [address] 09477- 3601 Jan, Schizoaffective disorder, unspecified F25.9 [facility] [id number] [place] [address] 77367- 1350 Jan, [facility] [id number] [place] [address] 24019- 4727 30 Dec, 2015 [facility] [id number] [place] [address] 51823- 5015 19 Dec, 2015 Dental caries K02.9 [facility] [id number] [place] [address] 94637- 0020 14 Dec, 2015 Obesity E66.9 ; Edema R60.9 ; Depression F32.9 ; Bipolar 1 disorder F31.9 ; 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 ; Environmental allergies Z91.09 ; Shortness of breath R06.02 ; Gastroesophageal reflux disease with esophagitis K21.0 ; Other chronic pain G89.29 ; Pain in right knee M25.561 ; Pain in left knee M25.562 and Encounter for immunization Z23 [facility] [id number] [place] [address] 21982- 3266 Nov, Dental caries K02.9 [facility] [id number] [place] [address] 31525- 3989 Oct, Schizoaffective disorder, unspecified F25.9 [facility] [id number] [place] [address] 72668- 8862 Oct, Dental examination Z01.20 [facility] [id number] [place] [address] 13015- 0022 Sep, Dental examination Z01.20 and Dental caries K02.9 [facility] [id number] [place] [address] 87779- 0977 13 Sep, 2015 [facility] [id number] [place] [address] 88334- 0211 Sep, [facility] [address] 55694- 0599 Sep, [facility] [id number] [place] [address] 00017- 9510 07 Sep, 2015 Schizoaffective disorder, unspecified F25.9 [facility] [address] 62410- 3586 August, Bipolar disorder, unspecified F31.9 [facility] [address] 34083- 4900 Jul, Edema R60.9 and Obesity E66.9 [facility] [address] 15927- 4147 Jul, Edema R60.9 [facility] [address] 71356- 1029 Jul, Edema R60.9 [facility] [address] 74615 -5505 Jul, Edema R60.9 [facility] [address] 73292- 3860 Jul, [facility] [address] 47920- 2178 Jul, [facility] [address] 31634- 3457 24 Jun, 2015 Environmental allergies V15.09 and Cough R05 [facility] [address] 12491- 8449 17 Jun, 2015 Environmental allergies V15.09 ; Edema R60.9 and Cough R05 [facility] [id number] [place] [address] 08594 -9262 Jun, Bronchospasm J98.01 [facility] [id number] [place] [address] 83323- 4376 10 Jun, 2015 [facility] [address] 90277- 3211 Jun, [facility] [address] 08533- 7367 08 Jun, 2015 Environmental allergies V15.09 ; Bipolar 1 disorder F31.9 ; GERD (gastroesophageal reflux disease) K21.9 ; Depression F32.9 ; Joint pain of lower extremity M25.50 ; COPD (chronic obstructive pulmonary disease) J44.9 and Screening for diabetes mellitus Z13.1 [facility] [id number] [place] [address] 25605- 3409 16 Jun, 2015 [facility] [address] 67879- 4972 May, [facility] [address] 14166- 3433 14 May, 2015 Schizoaffective disorder, unspecified F25.9 and Bipolar [address] disorder [address] 47423- 4519 May, [facility] [address] 34843- 4751 12 May, 2015 URI (upper respiratory infection) J06.9 ; Environmental allergies V15.09 and Cough R05 [facility] [id number] [place] [address] 44350- 3573 18 Mar, 2015 [facility] [address] 50434- 0860 15 Mar, 2015 Vaginal discharge N89.8 [facility] [address] 39621- 4517 14 Mar, 2015 Schizoaffective disorder, unspecified F25.9 ; Major depressive disorder, single episode, unspecified F32.9 and Bipolar 1 disorder F31.9 [facility] [id number] [place] [address] 71514- 8430 Mar, [facility] [address] 11709- 3273 Mar, Bipolar 1 disorder F31.9 [facility] [id number] [place] [address] 88914- 1182 Jan, [facility] [address] 17451- 1259 Jan, Allergic rhinitis J30.9 and Cough R05 [facility] [id number] [place] [address] 09180- 8490 Jan, 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 ; Bipolar 1 disorder F31.9 ; GERD ( gastroesophageal reflux disease) K21.9 ; Depression F32.9 and Joint pain of lower extremity M25.50 [facility] [address] 46892- 9708 Dec, Encounter for immunization Z23 [facility] [address] 12426- 6785 Dec, Schizoaffective disorder, unspecified 295.70 ; Pain in joint , lower leg 719.46 ; Esophageal reflux 530.81 ; Bipolar 1 disorder 296.7 ; Depression 311 ; GERD (gastroesophageal reflux disease) 530.81 and Environmental allergies V15.09 [facility] [address] [id number] Nov, Dental examination V72.2 [facility] [address] 31267- 1049 Nov, Acute bronchitis 466.0 [facility] [address] 27441- 9092 Nov, Schizoaffective disorder, unspecified 295.70 and Bipolar disorder, unspecified 296.80 [facility] [id number] [place] [address] [id number] Sep, Dental examination V72.2 [facility] [id number] [place] [address] [id number] August, Dental examination V72.2 [facility] [address] 07660- 9014 August, Schizoaffective disorder, unspecified 295.70 [facility] [id number] [place] [address] [id number]- 6869 August, [facility] [address] 17392- 7963 August, Vomiting 787.03 [facility] [address] 8020 August, Vomiting and diarrhea 787.03 and High risk medication use V58.69 [facility] [address], [place] [address]- 8212 30 Jul, 2014 [facility] [id number] [place] [address] 52718- 5305 Jul, [facility] [address], [place] [address]- 1380 Jul, [facility] [id number] [place] [address] 36982- 0934 Jun, [facility] [address], [place] [address]- 2138 Jun, [facility] [id number] [place] [address] 01218- 3073 Jun, [facility] [address], [place] [address]- 1536 Jun, [facility] [address], [place] [address]- 7783 16 Jun, 2014 [facility] [address], [place] [address]- 9408 Jun, [facility] [address], [place] [address]- 1692 Jun, [facility] [id number]- 2464 Jun, [facility] [address], [place] [address]- 7328 Jun, [facility] [id number], [place] [address]- 8311 Mar, [facility] [id number] [place] [address]- 9321 Mar, [facility] [place] [facility] [address] [id number] [place] [address]- 7427 Mar, [facility] [place] [facility] [address] [id number] [place] 1272 Mar, [facility] [place] [facility] [address] [id number] [place] 9114 Mar, [facility] [place] [facility] [address] [id number] [place] [address]- 5542 Mar, [facility] [place] [facility] [address] [id number] [place] 5520 Mar, [facility] [place] [facility] [address] [id number] [place] [address]- 8132 Mar, [facility] [place] [facility] [address] [id number] [place] [address]- 2560 Mar, [facility] [place] [facility] [address] [id number] [place] [address]- 3254 Mar, [facility] [place] [facility] [address] [id number] [place] [address]- 4092 Jan, [facility] [place] [facility] [address] [id number] [place] [address]- 9764 Jan, [facility] [place] [facility] [address] [id number] [place] [address]- 1165 31 Jan, 2014 [facility] [place] [facility] [address] [id number] [place] [address]- 0558 31 Jan, 2014 [facility] [place] [facility] [address] [id number] [place] [address]- 0668 14 Jan, 2014 [facility] [place] [facility] [address] [id number] [place] [address]- 0151 14 Jan, 2014 [facility] [place] [facility] [address] [id number] [place] [address]- 7853 Jan, [facility] [place] [facility] [address] [id number] [place] [address]- 6807 Jan, [facility] [place] [facility] [address] [id number] [place] [address]- 1921 19 Dec, 2013 [facility] [place] [facility] [address] [id number] [place] [address]- 1264 19 Dec, 2013 [facility] [place] [facility] [address] [id number] [place] [address]- 0468 15 Dec, 2013 [facility] [place] [facility] [address] [id number] [place] [address]- 5308 15 Dec, 2013 [facility] [place] [facility] [address] [id number] [place] [address]- 0128 15 Dec, 2013 [facility] [place] [facility] [address] [id number] [place] [address]- 5109 15 Dec, 2013 [facility] [place] [facility] [address] [id number] [place] [address]- 8078 12 Dec, 2013 [facility] [place] [facility] [address] [id number] [place] [address]- 8122 Dec, [facility] [place] [facility] [address] [id number] [place] [address]- 9988 Dec, [facility] [place] [facility] [address] [id number] [place] [address] Dec, [facility] [place] [facility] [address] [id number] [place] [address] Nov, [facility] [place] [facility] [address] [id number] [place] [address] Nov, [facility] [place] [facility] [address] [id number] [place] [address] Nov, [facility] [place] [facility] [address] [id number] [place] [address] Nov, [facility] [place] [facility] [address] [id number] [place] [address] Oct, [facility] [place] [facility] [address] [id number] [place] [address] Oct, [facility] [place] [facility] [address] [id number] [place] [address] Oct, [facility] [place] [facility] [address] [id number] [place] [address] Oct, [facility] [place] [facility] [address] [id number] [place] [address] Sep, [facility] [place] [facility] [address] [id number] [place] [address] Sep, [facility] [place] [facility] [address] [id number] [place] [address] Sep, [facility] [place] [facility] [address] [id number] [place] [address] Sep, [facility] [place] [facility] [address] [id number] [place] [address] Sep, [facility] [place] [facility] [address] [id number] [place] [address] Sep, [facility] [place] [facility] [address] [id number] [place] [address] Sep, [facility] [place] [facility] [address] [id number] [place] [address] Sep, [facility] [place] [facility] [address] [id number] [place] [address] August, [facility] [place] [facility] [address] [id number] [place] [address] August, [facility] [place] [facility] [address] [id number] [place] [address] Jul, [facility] [place] [facility] [address] [id number] [place] [address] Jul, [facility] [place] [facility] [address] [id number] [place] [address] Jul, [facility] [place] [facility] [address] [id number] [place] [address] Jul, [facility] [place] [facility] [address] [id number] [place] [address] Jul, [facility] [place] [facility] [address] [id number] [place] [address] Jul, [facility] [place] [facility] [address] [id number] [place] [address] Jul, [facility] [place] [facility] [address] [id number] [place] [address] Jul, [facility] [place] [facility] [address] [id number] [place] [address] Jul, [facility] [place] [facility] [address] [id number] [place] [address] Jul, [facility] [place] [facility] [address] [id number] [place] [address] Jun, [facility] [place] [facility] [address] [id number] [place] [address] 27 Jun, 2013 [facility] [place] [facility] [address] [id number] [place] [address] 18 Jun, 2013 [facility] [place] [facility] [address] [id number] [place] [address] 18 Jun, 2013 [facility] [place] [facility] [address] [address] [id number] [place] [address] 17 Jun, 2013 [facility] [place] [facility] [address] [id number] [place] [address] 17 Jun, 2013 [facility] [place] [facility] [address] [id number] [place] [address] 17 Jun, 2013 [facility] [place] [facility] [address] [id number] [place] [address] 17 Jun, 2013 [facility] [place] [facility] [address] [id number] [place] [address]73 14 Jun, 2013 [facility] [place] [facility] [address] [id number] [place] [address] 14 Jun, 2013 [facility] [place] [facility] [address] [id number] [place] [address] 07 Jun, 2013 [facility] [place] [facility] [address] [id number] [place] [address] Jun, [facility] [place] [facility] [address] [id number] [place] [address] Jun, [facility] [place] [facility] [address] [id number] [place] [address] Jun, [facility] [place] [facility] [address] [id number] [place] [address] Jun, [facility] [place] [facility] [address] [id number] [place] [address] 68[address] Jun, [facility] [place] [facility] [address] [id number] [place] [address] May, [facility] [place] [facility] [address] [id number] [place] [address] 37[address] May, [facility] [place] [facility] [address] [id number] [place] [address] 26[address] May, [facility] [place] [facility] [address] [id number] [place] [address] 9423 May, [facility] [place] [facility] [address] [id number] [place] [address] 67[address] Mar, [facility] [place] [facility] [address] [id number] [place] [address] 9058 Mar, [facility] [place] [facility] [address] [id number] [place] [address] 5584 Mar, [facility] [place] [facility] [address] [id number] [place] [address] 2541 Mar, [facility] [address] [id number] [place] [address] 1682 Mar, [facility] [place] [facility] [address] [id number] [place] [address] 2544 Mar, [facility] [address] [id number] [place] [address] 7227 Mar, [facility] [place] [facility] [address] [id number] [place] [address]- 2547 Mar, [facility] [address] [id number] [place] [address]377 Jan, [facility] [address] [id number] [place] [address]- 0899 Jan, [facility] [address] [id number] [place] [address] 1734 Jan, [facility] [address] [id number] [place] [address] 4295 Jan, [facility] [address] [id number] [place] [address] 9394 Jan, [facility] [address] [id number] [place] [address]- 2491 Jan, [facility] [place] [facility] [address] [id number] [place] [address] 7690 Jan, [facility] [place] [facility] [address] [id number] [place] [address] 2540 Dec, [facility] [place] [facility] [address] [id number] [place] [address]40 Nov, [facility] [place] [facility] [address] [id number] [place] [address] 2546 Oct, [facility] [place] [facility] [address] [id number] [place] [address] 2548 Oct, [facility] [place] [facility] [address] [id number] [place] [address] Sep, [facility] [place] [facility] [address] [id number] [place] [address]90 Sep, [facility] [place] [facility] [address] [id number] [place] [address] Sep, [facility] [place] [facility] [address] [id number] [place] [address] 2859 August, [facility] [address] [id number] [place] [address] 9468 Jun, [facility] [place] [facility] [address] [id number] [place] [address] 6343 20 Jun, 2012 [facility] [place] [facility] [address] [id number] [place] [address] 7402 15 Jun, 2012 [facility] [address] [id number], [place] [address] 15 Jun, 2012 [facility] [place] [facility] [address] [id number] [place] [address]- 1762 Jun, [facility] [place] [facility] [address] [id number] [place] [address]- 9[address] Jun, [facility] [place] [facility] [address] [id number] [place] [address] 46[address] Jun, [facility] [place] [facility] [address] [id number], [place] [address] May, [facility] [place] [facility] [address] [id number] [place] [address] 6436 May, [facility] [place] [facility] [address] [id number], [place] [address] 14 May, 2012 [facility] [place] [facility] [address] [id number] [place] [address] 4663 May, [facility] [place] [facility] [address] [id number] [place] [address]- 1633 09 May, 2012 [facility] [address] [id number] [place] [address] May, [facility] [place] [facility] [address] [id number] [place] [address]- 8976 May, [facility] [address] [id number] [place] [address]- 0818 Mar, [facility] [place] [facility] [address] [id number] [place] [address]- 4979 Mar, [facility] [address] [id number] [place] [address]- 1724 Mar, [facility] [place] [facility] [address] [id number] [place] [address]- 8986 Mar, [facility] [address] [id number] [place] [address]- 9267 Mar, [facility] [place] [facility] [address] [id number] [place] [address]- 3829 Mar, [facility] [place] [facility] [address] [id number] [place] [address]- 0150 Mar, [facility] [place] [facility] [address] [facility] [id number] [place] [address]- 6353 Mar, [facility] [place] [facility] [address] [id number] [place] [address]- 7113 Mar, [facility] [place] [facility] [address] [id number] [place] [address] 5411 Mar, [facility] [place] [facility] [address] [id number] [place] [address]- 0156 Mar, [facility] [place] [facility] [address] [id number] [place] [address]- 7908 Mar, [facility] [place] [facility] [address] [id number] [place] [address]- 5984 Mar, [facility] [place] [facility] [address] [id number] [place] [address] 3456 Mar, [facility] [place] [facility] [address] [id number] [place] [address]- 1275 Mar, [facility] [place] [facility] [address] [id number] [place] [address]- 9854 Mar, [facility] [place] [facility] [address] [id number] [place] [address], [place] [address]- [address]39 Mar, [facility] [place] [facility] [address] [id number] [place] [address]- 6408 Mar, [facility] [place] [facility] [address] [id number] [place] [address]- 8222 Mar, [facility] [place] [facility] [address] [id number] [place] [address]- 7494 Jan, [facility] [place] [facility] [address] [id number] [place] [address]- 2452 Jan, [facility] [place] [facility] [address] [id number] [place] [address]- 5595 Jan, [facility] [place] [facility] [address] [id number] [place] [address]- 6485 Jan, [facility] [place] [facility] [address] [id number] [place] [address]- 5873 Dec, [facility] [place] [facility] [address] [id number] [place] [address]- 8354 18 Dec, 2011 [facility] [place] [facility] [address] [id number] [place] [address]- 4415 06 Dec, 2011 [facility] [place] [facility] [address] [id number] [place] [address]- 2912 Nov, [facility] [place] [facility] [address] [id number] [place] [address]- 0564 17 Nov, 2011 [facility] [place] [facility] [address] [id number], [place] [address] Oct, [facility] [address] [facility] [id number], [place] [address]19 Oct, [facility] [address] [id number], [place] [address]64 Oct, [facility] [address] [facility] [id number], [place] [address]- [address]17 Oct, [facility] [address] [id number], [place] [address] 8273 Oct, [facility] [address] [facility] [id number], [place] [address]- 3555 Oct, IMMUNIZATIONS No Known Immunizations SOCIAL HISTORY [...]
--- OUTSIDE RECORDS SUMMARY | 2018-05-15 06:23 | XMS REPORT ---
Author Author SAKINA MONIQUE [facility] Address [address] [place] [address] Care Team Providers Care Engineering Technician Name Role Phone SAKINA, MONIQUE Unavailable PROBLEMS Type Condition ICD9-CM Code XTV32-CA Code Onset Dates Condition Status SNOMED Code Problem Major depressive disorder, single episode, unspecified F32.9 Active 93422118 Problem Schizoaffective disorder, bipolar type F25.0 Active 35951884 Problem Neuropathy G62.9 Active 155902845 Problem COPD suggested by initial evaluation J44.9 Active 61578860 Problem Body mass index (BMI) of 45.0-49.9 in adult Z68.42 Active 363641223 Problem Post-menopausal bleeding N95.0 Active 15594158 Problem 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 Active 377130582 Problem Morbid (severe) obesity due to excess calories E66.01 Active 283486515 Problem Primary osteoarthritis of left knee M17.12 Active 243432084 Problem Obstructive sleep apnea G47.33 Active 56758376 Problem Bipolar 1 disorder F31.9 Active 979611407 Problem Edema R60.9 Active 400829329 Problem Depression F32.9 Active 35584282 Problem Obesity E66.9 Active 153136227 Problem GERD (gastroesophageal reflux disease) K21.9 Active 590623887 Problem Environmental allergies Z91.09 Active 987186007 ALLERGIES Substance Reaction Event Type Date Status Sulfamethoxazole-Trimethoprim Unknown Drug Allergy Jul, Active Penicillin V Potassium rash Drug Allergy Jul, Active ENCOUNTERS Encounter Location Date Diagnosis [facility] [place] [address] [facility] [id number] [address] Jan, [facility] [place] [address] [facility] [id number] [address] Oct, [facility] [place] [address] [facility] [id number] [address] Oct, [facility] [place] [address] [address] Oct, 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 [facility] [place] [id number] [place] [address] 68048- 6707 Oct, Schizoaffective disorder, bipolar type F25.0 ; 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 and 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 [facility] [place] [address] [id number] [address] Oct, Prediabetes R73.03 ; COPD suggested by initial evaluation J44.9 ; BMI 45.0-49.9, adult Z68.42 and Obstructive sleep apnea G47.33 [facility] [place] [id number] [address] Sep, [facility] [place] [id number] [place] [address] 11702- 1338 August, Neuropathy G62.9 [facility] [place] [id number] [place] [address] 98875- 9175 August, [facility] [place] [id number] [place] [address] 83923- 3942 August, [facility] [place] [address] [address] Jul, [facility] [place] [id number] [place] [address] 21003- 0095 Jul, Primary osteoarthritis of left knee M17.12 [facility] [place] [id number] [place] [address] 16187- 2629 Jul, Schizoaffective disorder, bipolar type F25.0 and 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 [facility] [place] [address] [address] Jul, Prediabetes R73.03 ; Primary osteoarthritis of left knee M17.12 ; GERD (gastroesophageal reflux disease) K21.9 ; Bipolar 1 disorder F31.9 ; Depression F32.9 ; Environmental allergies Z91.09 ; Neuropathy G62.9 ; Edema R60.9 ; Body mass index (BMI) of 45.0-49.9 in adult Z68.42 and Morbid ( severe) obesity due to excess calories E66.01 [place] [address] 00[address]- 1853 Jul, [place] [address] 70726- 3008 Jun, [place] [address] 57842- 5380 Jun, [place] [address] [place] [id number]- [address] Jun, Wound of right breast, initial encounter S21.001A and Prediabetes R73.03 [place] [address] 00246- 5062 Jun, [place] [address] 58780- 8153 May, GERD (gastroesophageal reflux disease) K21.9 [place] [address] 02022- 6881 May, Primary osteoarthritis of left knee M17.12 [place] [address] 25841- 1466 May, Schizoaffective disorder, bipolar type F25.0 and 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 [place] [address] 53720- 6460 May, Left medial knee pain M25.562 ; GERD (gastroesophageal reflux disease) K21.9 ; Depression F32.9 ; Neuropathy G62.9 ; Obesity E66.9 ; Prediabetes R73.03 and Edema R60.9 [place] [address] 31924- 0211 14 Mar, 2017 [facility] [place] [address] [address] 466[address] Mar, [facility] [place] [id number] [place] [address] 41952- 2652 05 Mar, 2017 Post-menopausal bleeding N95.0 and BMI 50.0-59.9, adult Z68.43 [facility] [place] [id number] [place] [address] 93690- 0683 Mar, [facility] [place] [id number] [place] [address] 33218- 6703 Mar, Schizoaffective disorder, bipolar type F25.0 and 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 [place] [id number] [place] [address] 14991- 8709 Mar, [facility] [place] [id number] [place] [address] 36240- 7679 Mar, [facility] [place] [id number] [place] [address] 59484- 3213 Mar, Post-menopausal bleeding N95.0 ; Screening breast examination Z12.31 ; Screen for STD (sexually transmitted disease) Z11.3 ; Obesity E66.9 ; Family history of ovarian cancer Z80.41 and Family history of cervical cancer Z80.49 [place] [address] [address]- 0467 Mar, [facility] [place] [address] [address]- 2890 Mar, [facility] [place] [id number] [place] [address] 99514- 1581 Jan, Schizoaffective disorder, bipolar type F25.0 and 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 [facility] [place] [address] [address]- 0923 Jan, Schizoaffective disorder, bipolar type F25.0 [facility] [place] [address] [address]- 3777 Jan, [facility] [place] [id number] [place] [address] 54066- 2109 Jan, Prediabetes R73.03 and Obesity E66.9 [facility] [place] [id number] [place] [address] 50805- 2257 Jan, Encounter for immunization Z23 [facility] [place] [id number] [place] [address] 30615- 1437 Jan, [facility] [place] [id number] [place] [address] 87504- 8427 Dec, [facility] [place] [id number] [place] [address] 96325- 7447 Dec, [facility] [place] [id number] [place] [address] 62377- 8635 Nov, Neuropathy G62.9 [facility] [place] [id number] [place] [address] 30606- 4961 Nov, [facility] [place] [id number] [place] [address] 77480- 5715 Nov, Schizoaffective disorder, bipolar type F25.0 [facility] [place] [id number] [place] [address] 49102- 7894 Nov, 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 and Schizoaffective disorder, bipolar type F25.0 [facility] [place] [id number] [place] [address] 41415- 5964 Oct, Schizoaffective disorder, bipolar type F25.0 ; Other nursing home (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 Z79.899 and 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 [facility] [address] [id number] [id number] Oct, Dental caries K02.9 [facility] [place] [id number] [place] [address] 95112- 2220 Sep, Neuropathy G62.9 [place] [id number] [place] [address] 93102- 0607 Sep, [place] [id number] [place] [address] 65553- 1099 Sep, Neuropathy G62.9 [place] [id number] [place] [address] 98296- 8607 Jul, Schizoaffective disorder, depressive type F25.1 [place] [id number] [place] [address] 45440- 6425 Jul, GERD (gastroesophageal reflux disease) K21.9 ; Joint pain of lower extremity M25.50 ; Environmental allergies Z91.09 ; Stress incontinence of urine N39.3 ; Neuropathy G62.9 ; Edema R60.9 and Acute pain of left knee M25.562 [place] [id number] [place] [address] 87177- 2976 Jun, [facility] [address] [id number] Jun, Dental examination Z01.20 [place] [id number] [place] [address] 62815- 9011 02 Jun, 2016 [place] [id number] [place] [address] 73935- 9631 May, [place] [id number] [place] [address] 75651- 2146 May, Bipolar 1 disorder F31.9 ; Joint pain of lower extremity M25.50 ; Environmental allergies Z91.09 ; Stress incontinence of urine N39.3 ; Major depressive disorder, single episode, unspecified F32.9 ; Dizzy R42 ; Schizoaffective disorder, unspecified F25.9 ; Neuropathy G62.9 ; Localized edema R60.0 and GERD (gastroesophageal reflux disease) K21.9 [place] [id number] [place] [address] 23229- 4176 May, Schizoaffective disorder, depressive type F25.1 [place] [address] 98403- 6892 May, Environmental allergies Z91.09 and Major depressive disorder , single episode, unspecified F32.9 [place] [address] 56481- 1403 Mar, Dental caries K02.9 [place] [address] 924451- 3307 Mar, Dental caries on smooth surface penetrating into pulp K02.63 [facility] [place] [address] 24842 -1214 Mar, Peripheral edema R60.9 and Dry skin L85.[address] 79045- 6804 Mar, [place] [address] 02643- 4176 Mar, Major depressive disorder, single episode, unspecified F32.9 [place] [address] 59097- 2804 Mar, Dental caries K02.9 [place] [id number] [place] [address] 87415- 8312 Mar, Diabetes mellitus with complication E11.8 ; Urinary frequency R35.0 ; Stress incontinence of urine N39.3 ; Joint pain of lower extremity M25.50 ; Obesity E66.9 ; Environmental allergies Z91.09 ; Depression F32.9 ; Schizoaffective disorder, unspecified F25.9 ; Vaginal discharge N89.8 and Vaginal candidiasis B37.3 [place] [id number] [place] [address] 51115- 1977 Jan, Schizoaffective disorder, unspecified F25.9 [place] [address] 94577- 1783 Jan, [place] [id number] [place] [address] 50580- 1164 30 Dec, 2015 [place] [address] 15170- 1489 19 Dec, 2015 Dental caries K02.9 [place] [address] 60403- 5599 14 Dec, 2015 Obesity E66.9 ; Edema R60.9 ; Depression F32.9 ; Bipolar 1 disorder F31.9 ; 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 ; Environmental allergies Z91.09 ; Shortness of breath R06.02 ; Gastroesophageal reflux disease with esophagitis K21.0 ; Other chronic pain G89.29 ; Pain in right knee M25.561 ; Pain in left knee M25.562 and Encounter for immunization Z23 [place] [address] 60668- 9751 Nov, Dental caries K02.9 [place] [address] 43477- 2308 Oct, Schizoaffective disorder, unspecified F25.9 [place] [id number] [place] [address] 22386- 6796 Oct, Dental examination Z01.20 [place] [id number] [place] [address] 66906- 3381 Sep, Dental examination Z01.20 and Dental caries K02.9 [place] [id number] [place] [address] 15094- 5040 13 Sep, 2015 [place] [address] 64979- 2014 09 Sep, 2015 [place] [address] 41267- 5145 07 Sep, 2015 [place] [address] 34252- 9457 Sep, Schizoaffective disorder, unspecified F25.9 [facility] [place] [id number] [place] [address] 49805- 2779 August, Bipolar disorder, unspecified F31.9 [facility] [place] [id number] [place] [address] 74644- 2578 Jul, Edema R60.9 and Obesity E66.9 [facility] [place] [address] 63437- 4748 Jul, Edema R60.9 [facility] [place] [id number] [place] [address] 55377- 3903 Jul, Edema R60.9 [facility] [address] 05192 -1559 Jul, Edema R60.9 [place] [id number] [place] [address] 21512- 1266 Jul, [facility] [place] [id number] [place] [address] 69609- 0203 Jul, [facility] [place] [id number] [place] [address] 84296- 7742 24 Jun, 2015 Environmental allergies V15.09 and Cough R05 [facility] [place] [id number] [place] [address] 34121- 1176 Jun, Environmental allergies V15.09 ; Edema R60.9 and Cough R05 [facility] [id number] [place] [address] 10565 -9640 12 Jun, 2015 Bronchospasm J98.01 [place] [id number] [place] [address] 74053- 0264 10 Jun, 2015 [facility] [place] [id number] [place] [address] 56022- 2974 Jun, [facility] [place] [id number] [place] [address] 43128- 5234 08 Jun, 2015 Environmental allergies V15.09 ; Bipolar 1 disorder F31.9 ; GERD (gastroesophageal reflux disease) K21.9 ; Depression F32.9 ; Joint pain of lower extremity M25.50 ; COPD (chronic obstructive pulmonary disease) J44.9 and Screening for diabetes mellitus Z13.1 [place] [address] 78901- 5406 16 Jun, 2015 [place] [address] 02477- 2564 May, [place] [address] 20881- 8493 14 May, 2015 Schizoaffective disorder, unspecified F25.9 and Bipolar 1 disorder F31.9 [place] [address] 04900- 0079 May, [place] [address] 06774- 4179 May, URI (upper respiratory infection) J06.9 ; Environmental allergies V15.09 and Cough R05 [place] [address] 30534- 3877 18 Mar, 2015 [place] [address] 08906- 0868 15 Mar, 2015 Vaginal discharge N89.8 [place] [address] 70694- 5226 14 Mar, 2015 Schizoaffective disorder, unspecified F25.9 ; Major depressive disorder, single episode, unspecified F32.9 and Bipolar 1 disorder F31.9 [place] [address] 10691- 2851 Mar, [place] [address] 64310- 3239 Mar, Bipolar 1 disorder F31.9 [place] [address] 23551- 5156 Jan, [facility] [place] [id number] [place] [address] 76659- 7855 Jan, Allergic rhinitis J30.9 and Cough R05 [place] [address] [place] [id number] [place] [address] 53691- 7144 Jan, 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 ; Bipolar 1 disorder F31.9 ; GERD ( gastroesophageal reflux disease) K21.9 ; Depression F32.9 and Joint pain of lower extremity M25.50 [facility] [place] [address] 63338- 4868 Dec, Encounter for immunization Z23 [place] [address] 11631- 0886 Dec, Schizoaffective disorder, unspecified 295.70 ; Pain in joint , lower leg 719.46 ; Esophageal reflux 530.81 ; Bipolar 1 disorder 296.7 ; Depression 311 ; GERD (gastroesophageal reflux disease) 530.81 and Environmental allergies V15.09 [facility] [address] [id number] Nov, Dental examination V72.2 [place] [address] 67830- 3876 Nov, Acute bronchitis 466.0 [place] [address] 37632- 0551 Nov, Schizoaffective disorder, unspecified 295.70 and Bipolar disorder, unspecified 296.80 [facility] [address] [id number] [place] [address] [id number] Sep, Dental examination V72.2 [facility] [address] [id number] [place] [address] [id number] August, Dental examination V72.2 [facility] [place] [address] 30896- 2093 August, Schizoaffective disorder, unspecified 295.70 [facility] [place] [address] 45053- 2872 August, [facility] [address]- [address]60 August, Vomiting 787.03 [facility] [address] [address]- 4218 August, Vomiting and diarrhea 787.03 and High risk medication use V58.69 [facility] [address] [address]- 1508 Jul, [facility] [address] [address]- 8230 Jul, [facility] [id number] [place] [address] 91711- 0475 Jul, [facility] [address] [address]- 8585 Jun, [facility] [address] [address]- 8868 Jun, [facility] [address] [address]- 2844 Jun, [facility] [address] [address]- 5495 Jun, [facility] [address] [address]- 8518 Jun, [facility] [address] [address]- 9870 Jun, [facility] [address]- 1571 Jun, [facility] [address]- 3039 Jun, [facility] [address]- 5056 Jun, [facility] [address] [id number] [place] [address]- 7589 Mar, [facility] [place] [facility] [address] [id number] [place] 1416 Mar, [facility] [place] [facility] [address] [id number] [place] [address]- 6688 Mar, [facility] [place] [facility] [address] [id number] [place] 8117 Mar, [facility] [place] [facility] [address] [id number] [place] [address]- 8454 Mar, [facility] [place] [facility] [address] [id number] [place] [address]- 0258 Mar, [facility] [place] [facility] [address] [id number] [place] [address]- 7377 Mar, [facility] [place] [facility] [address] [id number] [place] [address]- 6677 Mar, [facility] [place] [facility] [address] [id number] [place] [address]- 0454 Mar, [facility] [place] [facility] [address] [id number] [place] [address]- 6170 Mar, [facility] [place] [facility] [address] [facility] [id number] [place] [address]- 7166 Jan, [facility] [place] [facility] [address] [id number] [place] [address] 31 Jan, 2014 [facility] [place] [facility] [address] [id number] [place] [address] 31 Jan, 2014 [facility] [place] [facility] [address] [id number] [place] [address] 31 Jan, 2014 [facility] [place] [facility] [address] [id number] [place] [address] Jan, [facility] [place] [facility] [address] [id number] [place] [address] 14 Jan, 2014 [facility] [place] [facility] [address] [id number] [place] [address] 09 Jan, 2014 [facility] [place] [facility] [address] [id number] [place] [address] Jan, [facility] [place] [facility] [address] [id number] [place] [address] 19 Dec, 2013 [facility] [place] [facility] [address] [id number] [place] [address] 19 Dec, 2013 [facility] [place] [facility] [address] [id number] [place] [address] 15 Dec, 2013 [facility] [place] [facility] [address] [id number] [place] [address] 15 Dec, 2013 [facility] [place] [facility] [address] [id number] [place] [address] 15 Dec, 2013 [facility] [place] [facility] [address] [id number] [place] [address] 15 Dec, 2013 [facility] [place] [facility] [address] [id number] [place] [address] 12 Dec, 2013 [facility] [place] [facility] [address] [id number] [place] [address] 12 Dec, 2013 [facility] [place] [facility] [address] [id number] [place] [address] Dec, [facility] [place] [facility] [address] [id number] [place] [address] Dec, [facility] [place] [facility] [address] [id number] [place] [address] Nov, [facility] [place] [facility] [address] [id number] [place] [address] Nov, [facility] [place] [facility] [address] [id number] [place] [address] Nov, [facility] [place] [facility] [address] [id number] [place] [address] Nov, [facility] [facility] [address] [id number] [place] [address] Oct, [facility] [place] [facility] [address] [id number] [place] [address] Oct, [facility] [place] [facility] [address] [id number] [place] [address] Oct, [facility] [place] [facility] [address] [id number] [place] [address] Oct, [facility] [place] [facility] [address] [id number] [place] [address] Sep, [facility] [place] [facility] [address] [id number] [place] [address] Sep, [facility] [place] [facility] [address] [id number] [place] [address] Sep, [facility] [place] [facility] [address] [id number] [place] [address] Sep, [facility] [place] [facility] [address] [id number] [place] [address] Sep, [facility] [place] [facility] [address] [id number] [place] [address] Sep, [facility] [place] [facility] [address] [id number] [place] [address] Sep, [facility] [place] [facility] [address] [id number] [place] [address] Sep, [facility] [place] [facility] [address] [id number] [place] [address] August, [facility] [place] [facility] [address] [id number] [place] [address] August, [facility] [place] [facility] [address] [id number] [place] [address] Jul, [facility] [place] [facility] [address] [id number] [place] [address]- [address] 30 Jul, 2013 [facility] [address] [id number] [place] [address] Jul, [facility] [facility] [address] [id number] [place] [address] Jul, [facility] [address] [id number] [place] [address] Jul, [facility] [facility] [address] [id number] [place] [address] Jul, [facility] [address] [id number] [place] [address] 39[address] Jul, [facility] [address] [id number] [place] [address] Jul, [facility] [address] [id number] [place] [address] Jul, [facility] [address] [id number] [place] [address] 6865 Jul, [facility] [address] [id number] [place] [address]- [address] Jun, [facility] [address] [id number] [place] [address] 27 Jun, 2013 [facility] [address] [id number] [place] [address]- 8367 18 Jun, 2013 [facility] [address] [id number] [place] [address]- [address]755 18 Jun, 2013 [facility] [address] [id number] [place] [address]- [address]164 17 Jun, 2013 [facility] [address] [id number] [place] [address]- 7966 17 Jun, 2013 [facility] [address] [id number] [place] [address]- 3330 17 Jun, 2013 [facility] [address] [id number] [place] [address]- 45[address] 17 Jun, 2013 [facility] [address] [id number] [place] [address]- [address] Jun, [facility] [address] [id number] [place] [address]- 0714 14 Jun, 2013 [facility] [address] [id number] [place] [address]- 8534 Jun, [facility] [facility] [address] [id number] [place] [address]- [address]284 Jun, [facility] [address] [id number] [place] [address]- 4659 Jun, [facility] [address] [id number] [place] [address] 7713 Jun, [facility] [facility] [address] [id number] [place] [address]- [address]604 Jun, [facility] [place] [facility] [address] [id number] [place] [address]- 9609 Jun, [facility] [address] [id number] [place] [address]51 May, [facility] [address] [id number] [place] [address]- [address]378 May, [facility] [address] [id number] [place] [address]- [address]690 May, [facility] [address] [id number] [place] [address]- 0659 May, [facility] [address] [id number] [place] [address]- 3448 Mar, [facility] [address] [id number] [place] [address]- 3984 Mar, [facility] [address] [id number] [place] [address]- 5673 Mar, [facility] [address] [id number] [place] [address]- 7296 Mar, [facility] [address] [id number] [place] [address]- 0174 Mar, [facility] [address] [id number] [place] [address]- [address]646 Mar, [facility] [address] [id number] [place] [address] 1893 Mar, [facility] [address] [id number] [place] [address]- 2535 Mar, [facility] [address] [id number] [place] [address]- 4295 Jan, [facility] [address] [id number] [place] [address]- 8812 Jan, [facility] [address] [id number] [place] [address]- 0272 Jan, [facility] [address] [id number] [place] [address]- 0350 Jan, [facility] [address] [id number] [place] Jan, [facility] [address] [id number] [place] [address]- 5391 Jan, [facility] [address] [id number] [place] [address] 2544 Jan, [facility] [address] [id number] [place] [address] 2544 Dec, [facility] [address] [id number] [place] [address]- 2546 Nov, [facility] [address] [id number] [place] [address] 2549 Oct, [facility] [address] [id number] [place] [address]- 6141 16 Oct, 2012 [facility] [address] [id number] [place] [address] 48[address] Sep, [facility] [address] [id number] [place] [address]- 8568 Sep, [facility] [address] [id number] [place] [address]- 4801 Sep, [facility] [address] [id number] [place] [address]- 7757 August, [facility] [address] [id number] [place] [address]- 1303 Jun, [facility] [address] [id number] [place] [address]- 7043 Jun, [facility] [address] [id number] [place] [address]- 6544 15 Jun, 2012 [facility] [address] [id number] [place] [address]- 2194 Jun, [facility] [address] [id number] [place] [address]- 8414 Jun, [facility] [address] [id number] [place] [address]- 2165 Jun, [facility] [address] [id number] [place] [address]- 9225 Jun, [facility] [address] [id number] [place] [address]- 9788 May, [facility] [address] [id number] [place] [address]- 5991 May, [facility] [address] [id number] [place] [address]- 1126 14 May, 2012 [facility] [address] [id number] [place] [address]- 6299 May, [facility] [address] [id number] [place] [address]- 7430 May, [facility] [address] [id number] [place] [address]- 3334 May, [facility] [address] [id number] [place] [address]- 6365 May, [facility] [address] [id number] [place] [address]- 9449 Mar, [facility] [address] [id number] [place] [address]- 0074 Mar, [facility] [address] [id number] [place] [address]- 1147 Mar, [facility] [address] [id number] [place] [address]- 0429 Mar, [facility] [address] [id number] [place] [address]- 1039 Mar, [facility] [address] [id number] [place] [address]- 5294 Mar, [facility] [address] [id number] [place] [address]- 9054 Mar, [facility] [address] [id number] [place] [address]- 7567 Mar, [facility] [address] [id number] [place] [address]- 7777 Mar, [facility] [address] [id number] [place] [address]- 3275 Mar, [facility] [address] [id number] [place] [address]- 9149 Mar, [facility] [address] [id number] [place] [address]- 9555 Mar, [facility] [address] [id number] [place] [address]- 7669 Mar, [facility] [address] [id number] [place] [address]- 8958 Mar, [facility] [address] [id number] [place] [address]- 3557 Mar, [facility] [address] [id number] [place] [address], [place] [address]- [address]207 Mar, [facility] [address] [id number] [place] [address]- 3730 Mar, [facility] [address] [id number] [place] [address]- 3998 Mar, [facility] [address] [id number] [place] [address]- 5131 Mar, [facility] [address] [id number] [place] [address]- 5797 Jan, [facility] [address] [id number] [place] [address]- 9108 Jan, [facility] [address] [id number] [place] [address]- 2688 Jan, [facility] [address] [id number] [place] [address]- 2187 Jan, [facility] [address] [id number] [place] [address]- 4713 Dec, [facility] [address] [id number] [place] [address]- 4159 18 Dec, 2011 [facility] [address] [id number] [place] [address]- 4581 Dec, [facility] [address] [id number] [place] [address]- 3374 Nov, [facility] [address] [id number] [address]- [address] Nov, [facility] [place] [address] [facility] [id number] [address]- [address] Oct, [facility] [place] [address] [id number] [address]- [address] Oct, [facility] [place] [address] [facility] [id number] [place] [address]- 7453 Oct, [facility] [place] [address] [facility] [id number] [place] [address]- 8763 Oct, [facility] [place] [address] [facility] [id number] [place] [address]- 5448 Oct, [facility] [place] [address] [facility] [id number] [place] [address]- [address]608 Oct, IMMUNIZATIONS No Known Immunizations SOCIAL HISTORY Never Assessed REASON FOR VISIT f/u-Bettina HARO PLAN OF CARE Activity Details Follow Up 3 Months Reason: f/u VITAL SIGNS Height 63 in 2017-08-17 Weight 258.9 lbs 2017-08-17 Heart Rate 80 bpm 2017-08-17 Respiratory Rate 20 2017-08-17 BMI 45.86 kg/m2 2017-08-17 Blood pressure systolic 112 mmHg 2017-08-17 Blood pressure diastolic 70 mmHg 2017-08-17 MEDICATIONS Medication Instructions Dosage Frequency Start Date End Date Duration Status Albuterol Sulfate HFA 108 (90 Base) MCG/ACT Inhalation every 4 hrs 2 puffs as needed 4h May, Not-Taking Lamictal 150 MG TAKE ONE TABLET BY MOUTH ONCE DAILY Active Zyrtec Allergy 10 MG TAKE ONE TABLET BY MOUTH ONCE DAILY Active Citalopram Hydrobromide 40 MG TAKE ONE (1) TABLET BY MOUTH ONCE DAILY Active Protonix 20 mg Orally Once a day 1 tablet 24h 30 Active Albuterol Sulfate 0.63 MG/3ML Inhalation every 4 hrs 3 ml as needed 4h Jun, Not-Taking MetFORMIN HCl ER 500 mg Orally Once a day 1 tablet with evening meal 24h Jan, Active Hydrochlorothiazide 50 MG TAKE ONE TABLET BY MOUTH ONCE DAILY Active Gabapentin 300 MG Orally Three times a day 1 capsule 8h Active Flonase 50 MCG/ACT Nasally Once a day 1 spray in each nostril 24h 30 Not-Taking Meloxicam 7.5 MG TAKE ONE TABLET BY MOUTH TWICE DAILY Active Risperdal 1 MG TAKE ONE TABLET BY MOUTH TWICE DAILY Active RESULTS No Results PROCEDURES No [...]
--- OUTSIDE RECORDS SUMMARY | 2018-05-15 06:23 | XMS REPORT ---
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 Lockstitch Name Role Phone RAY NEVAREZ Unavailable PROBLEMS Type Condition ICD9-CM Code [id number] Code Onset Dates Condition Status SNOMED Code Problem Major depressive disorder, single episode, unspecified F32.9 Active 43511786 Problem Schizoaffective disorder, bipolar type F25.0 Active 67765808 Problem Neuropathy G62.9 Active 039400734 Problem COPD suggested by initial evaluation J44.9 Active 80828484 Problem Body mass index (BMI) of 45.0-49.9 in adult Z68.42 Active 898549101 Problem Post-menopausal bleeding N95.0 Active 87693823 Problem 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 Active 227421620 Problem Morbid (severe) obesity due to excess calories E66.01 Active 507763161 Problem Primary osteoarthritis of left knee M17.12 Active 995727728 Problem Obstructive sleep apnea G47.33 Active 93855683 Problem Bipolar 1 disorder F31.9 Active 686873619 Problem Edema R60.9 Active 126318313 Problem Depression F32.9 Active 85866602 Problem Obesity E66.9 Active 820219539 Problem GERD (gastroesophageal reflux disease) K21.9 Active 095704672 Problem Environmental allergies Z91.09 Active 397812786 ALLERGIES Substance Reaction Event Type Date Status Sulfamethoxazole-Trimethoprim Unknown Drug Allergy Jul, Active Penicillin V Potassium rash Drug Allergy Jul, Active ENCOUNTERS Encounter Location Date Diagnosis [facility] [address] 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 and Other parts counterman (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 Z79.899 [facility] [address] [address]- [address] Oct, Prediabetes R73.03 ; COPD suggested by initial evaluation J44.9 ; BMI 45.0-49.9, adult Z68.42 and Obstructive sleep apnea G47.33 [place] [address] 6[address]11- [address]19 Sep, [place] [address] 56300- 1514 August, Neuropathy G62.9 [place] [address] 29293- 7920 August, [place] [id number] [place] [address] 04686- 8592 August, [place] [id number] [place] [address] 26569- 9442 Jul, [place] [id number] [place] [address] 28750- 4289 Jul, Primary osteoarthritis of left knee M17.12 [facility] [id number] [place] [address] 81869- 4400 Jul, Schizoaffective disorder, bipolar type F25.0 and 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 [place] [id number] [place] [address] 37172- 8086 Jul, Prediabetes R73.03 ; Primary osteoarthritis of left knee M17.12 ; GERD (gastroesophageal reflux disease) K21.9 ; Bipolar 1 disorder F31.9 ; Depression F32.9 ; Environmental allergies Z91.09 ; Neuropathy G62.9 ; Edema R60.9 ; Body mass index (BMI) of 45.0-49.9 in adult Z68.42 and Morbid ( severe) obesity due to excess calories E66.01 [place] [address] 36550- 5764 Jul, [place] [address] 91127- 6597 Jun, [place] [address] 83368- 6312 Jun, [address] 25151- 2685 Jun, Wound of right breast, initial encounter S21.001A and Prediabetes R73.[address] 38941- 1643 Jun, [address] 44116- 9823 May, GERD (gastroesophageal reflux disease) K21.[address] 52558- 7546 May, Primary osteoarthritis of left knee M17.[address] 10319- 0363 May, Schizoaffective disorder, bipolar type F25.0 and 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 80695- 7676 May, Left medial knee pain M25.562 ; GERD (gastroesophageal reflux disease) K21.9 ; Depression F32.9 ; Neuropathy G62.9 ; Obesity E66.9 ; Prediabetes R73.03 and Edema R60.[address] 54556- 7473 Mar, [address] 93549- 9427 Mar, [facility] [address] [address] Mar, Post-menopausal bleeding N95.0 and BMI 50.0-59.9, adult Z68.43 [facility] [address] [address] 7828 Mar, [facility] [id number] [place] [address] 73140- 7752 Mar, Schizoaffective disorder, bipolar type F25.0 and 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 [facility] [id number] [place] [address] 52844- 0101 Mar, [facility] [id number] [place] [address] 58323- 6180 Mar, [facility] [id number] [place] [address] 64005- 1432 Mar, Post-menopausal bleeding N95.0 ; Screening breast examination Z12.31 ; Screen for STD (sexually transmitted disease) Z11.3 ; Obesity E66.9 ; Family history of ovarian cancer Z80.41 and Family history of cervical cancer Z80.49 [facility] [address] [address] 9579 Mar, [place] [address] [address]- 0290 Mar, [facility] [address] [place] [address] 86854- 1211 Jan, Schizoaffective disorder, bipolar type F25.0 and 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 [facility] [address] [address] 9[address] Jan, Schizoaffective disorder, bipolar type F25.0 [facility] [address] [address] 4271 Jan, [place] [id number] [place] [address] 73184- 7508 10 Jan, 2017 Prediabetes R73.03 and Obesity E66.9 [facility] [id number] [place] [address] 53970- 5107 05 Jan, 2017 Encounter for immunization Z23 [facility] [id number] [place] [address] 19687- 6765 Jan, [facility] [id number] [place] [address] 24144- 2840 Dec, [facility] [id number] [place] [address] 86118- 6947 Dec, [facility] [id number] [place] [address] 14065- 1054 Nov, Neuropathy G62.9 [facility] [id number] [place] [address] 96944- 6117 Nov, [facility] [id number] [place] [address] 35578- 3592 Nov, Schizoaffective disorder, bipolar type F25.0 [facility] [id number] [place] [address] 75371- 4097 Nov, Other shelter (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 Z79.899 and Schizoaffective disorder, bipolar type F25.0 [facility] [id number] [place] [address] 45161- 6199 Oct, Schizoaffective disorder, bipolar type F25.0 ; Other parts counterman (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 Z79.899 and 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 [facility] [id number] [place] [address] [id number] Oct, Dental caries K02.9 [facility] [id number] [place] [address] 57543- 2827 Sep, Neuropathy G62.9 [facility] [id number] [place] [address] 56036- 4121 Sep, [facility] [id number] [place] [address] 85106- 7698 Sep, Neuropathy G62.9 [place] [id number] [place] [address] 66108- 7635 Jul, Schizoaffective disorder, depressive type F25.1 [place] [address] 85122- 7112 Jul, GERD (gastroesophageal reflux disease) K21.9 ; Joint pain of lower extremity M25.50 ; Environmental allergies Z91.09 ; Stress incontinence of urine N39.3 ; Neuropathy G62.9 ; Edema R60.9 and Acute pain of left knee M25.562 [place] [id number] [place] [address] 92372- 2787 Jun, [facility] [address] [id number] Jun, Dental examination Z01.20 [place] [id number] [place] [address] 66785- 6230 Jun, [place] [id number] [place] [address] 16714- 0186 May, [place] [id number] [place] [address] 10484- 7939 May, Bipolar 1 disorder F31.9 ; Joint pain of lower extremity M25.50 ; Environmental allergies Z91.09 ; Stress incontinence of urine N39.3 ; Major depressive disorder, single episode, unspecified F32.9 ; Dizzy R42 ; Schizoaffective disorder, unspecified F25.9 ; Neuropathy G62.9 ; Localized edema R60.0 and GERD (gastroesophageal reflux disease) K21.9 [facility] [address] [place] [address] 57751- 1316 May, Schizoaffective disorder, depressive type F25.1 [place] [address] [address]- 2088 May, Environmental allergies Z91.09 and Major depressive disorder , single episode, unspecified F32.9 [place] [id number] [place] [address] 76556- 2821 Mar, Dental caries K02.9 [facility] [address] 61197- 3130 Mar, Dental caries on smooth surface penetrating into pulp K02.63 [facility] [id number] [place] [address] 52106 -5063 Mar, Peripheral edema R60.9 and Dry skin L85.3 [place] [address] 44392- 8878 Mar, [place] [address] 85941- 0959 Mar, Major depressive disorder, single episode, unspecified F32.9 [place] [id number] [place] [address] 13929- 4310 Mar, Dental caries K02.9 [place] [id number] [place] [address] 06932- 4992 07 Mar, 2016 Diabetes mellitus with complication E11.8 ; Urinary frequency R35.0 ; Stress incontinence of urine N39.3 ; Joint pain of lower extremity M25.50 ; Obesity E66.9 ; Environmental allergies Z91.09 ; Depression F32.9 ; Schizoaffective disorder, unspecified F25.9 ; Vaginal discharge N89.8 and Vaginal candidiasis B37.3 [place] [id number] [place] [address] 08397- 8879 Jan, Schizoaffective disorder, unspecified F25.9 [place] [id number] [place] [address] 29464- 5860 Jan, [place] [address] 18494- 5330 30 Dec, 2015 [place] [id number] [place] [address] 07388- 5813 19 Dec, 2015 Dental caries K02.9 [place] [address] 18142- 8249 14 Dec, 2015 Obesity E66.9 ; Edema R60.9 ; Depression F32.9 ; Bipolar 1 disorder F31.9 ; 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 ; Environmental allergies Z91.09 ; Shortness of breath R06.02 ; Gastroesophageal reflux disease with esophagitis K21.0 ; Other chronic pain G89.29 ; Pain in right knee M25.561 ; Pain in left knee M25.562 and Encounter for immunization Z23 [place] [address] 58700- 1250 Nov, Dental caries K02.9 [place] [address] 93478- 8027 Oct, Schizoaffective disorder, unspecified F25.9 [place] [address] 62068- 9756 Oct, Dental examination Z01.20 [place] [address] 52727- 7504 Sep, Dental examination Z01.20 and Dental caries K02.9 [place] [address] 42042- 1282 Sep, [place] [id number] [place] [address] 33244- 7984 09 Sep, 2015 [place] [address] 32981- 7831 07 Sep, 2015 [place] [address] 67008- 0301 07 Sep, 2015 Schizoaffective disorder, unspecified F25.9 [place] [address] 29714- 3944 August, Bipolar disorder, unspecified F31.9 [place] [id number] [place] [address] 70873- 5689 Jul, Edema R60.9 and Obesity E66.9 [facility] [id number] [place] [address] 24428- 6310 Jul, Edema R60.9 [facility] [address] 70162- 7118 Jul, Edema R60.9 [facility] [address] 76219 -2932 Jul, Edema R60.9 [place] [address] 55184- 9755 Jul, [place] [address] 61883- 6592 Jul, [place] [address] 89676- 6805 Jun, Environmental allergies V15.09 and Cough R05 [place] [address] 68723- 9880 17 Jun, 2015 Environmental allergies V15.09 ; Edema R60.9 and Cough R05 [facility] [id number] [place] [address] 51670 -3026 Jun, Bronchospasm J98.01 [place] [id number] [place] [address] 54958- 6625 Jun, [place] [address] 52760- 6423 Jun, [place] [address] 25014- 6900 08 Jun, 2015 Environmental allergies V15.09 ; Bipolar 1 disorder F31.9 ; GERD (gastroesophageal reflux disease) K21.9 ; Depression F32.9 ; Joint pain of lower extremity M25.50 ; COPD (chronic obstructive pulmonary disease) J44.9 and Screening for diabetes mellitus Z13.1 [place] [id number] [place] [address] 90231- 9195 16 Jun, 2015 [place] [address] 15885- 5218 May, [place] [address] 92925- 7712 14 May, 2015 Schizoaffective disorder, unspecified F25.9 and Bipolar 1 disorder F31.9 [place] [address] 21097- 5446 May, [place] [address] 06511- 0803 12 May, 2015 URI (upper respiratory infection) J06.9 ; Environmental allergies V15.09 and Cough R05 [place] [address] 09575- 4146 18 Mar, 2015 [place] [address] 90382- 5162 15 Mar, 2015 Vaginal discharge N89.8 [place] [address] 80071- 9023 14 Mar, 2015 Schizoaffective disorder, unspecified F25.9 ; Major depressive disorder, single episode, unspecified F32.9 and Bipolar 1 disorder F31.9 [place] [id number] [place] [address] 66284- 4785 Mar, [place] [address] 85441- 8261 Mar, Bipolar 1 disorder F31.9 [place] [id number] [place] [address] 70066- 9274 Jan, [place] [address] 77116- 7740 Jan, Allergic rhinitis J30.9 and Cough R05 [place] [address] 37451- 5866 Jan, 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 ; Bipolar 1 disorder F31.9 ; GERD ( gastroesophageal reflux disease) K21.9 ; Depression F32.9 and Joint pain of lower extremity M25.50 [place] [address] 97723- 6235 Dec, Encounter for immunization Z23 [place] [address] 22497- 3077 Dec, Schizoaffective disorder, unspecified 295.70 ; Pain in joint , lower leg 719.46 ; Esophageal reflux 530.81 ; Bipolar 1 disorder 296.7 ; Depression 311 ; GERD (gastroesophageal reflux disease) 530.81 and Environmental allergies V15.09 [facility] [address] [id number] Nov, Dental examination V72.2 [place] [address] 53318- 1584 Nov, Acute bronchitis 466.[address] 64681- 4693 Nov, Schizoaffective disorder, unspecified 295.70 and Bipolar disorder, unspecified 296.80 [facility] [id number] [place] [address] [id number] Sep, Dental examination V72.2 [facility] [id number] [place] [address] [id number] August, Dental examination V72.2 [facility] [address] 52746- 3358 August, Schizoaffective disorder, unspecified 295.70 [place] [address] 61946- 7665 August, [facility] [address] 50030- 2546 August, Vomiting 787.03 [facility] [address] [place] [address] 08410- 9448 August, Vomiting and diarrhea 787.03 and High risk medication use V58.69 [facility] [address] [address]- 7166 30 Jul, 2014 [facility] [id number] [place] [address] 50189- 2949 Jul, [facility] [id number] [place] [address] 34473- 7380 Jul, [facility] [id number] [place] [address] 22038- 6711 Jun, [facility] [id number] [place] [address] 88397- 2306 Jun, [facility] [id number] [place] [address] 79855- 8152 Jun, [facility] [address] [place] [address] 92252- 4335 Jun, [facility] [address] [place] [address] 64603- 8893 Jun, [facility] [address] [address]- 5880 Jun, [facility] [address] [place] [address] 88690- 7626 Jun, [facility] [address] [address]- 2817 Jun, [facility] [address] [place] [address] 83646- 7516 Jun, [facility] [address] [address]- 0486 Mar, [facility] [id number] [place] [address], [place] 1502 Mar, [facility] [place] [facility] [address] [id number] [place] [address]- 5616 Mar, [facility] [place] [facility] [address] [id number] [place]293 Mar, [facility] [place] [facility] [address] [id number] [place]- 6774 Mar, [facility] [place] [facility] [address] [id number] [place] [address]- 1606 Mar, [facility] [place] [facility] [address] [id number] [place] 3239 Mar, [facility] [place] [facility] [address] [id number] [place] [address]- 6154 Mar, [facility] [place] [facility] [address] [id number] [place] [address]- 9309 Mar, [facility] [place] [facility] [address] [id number] [place] [address]- 5827 Mar, [facility] [place] [facility] [address] [id number] [place] [address]- 9742 31 Jan, 2014 [facility] [place] [facility] [address] [facility] [id number] [place] [address]- 3843 31 Jan, 2014 [facility] [place] [facility] [address] [id number] [place] [address]- 8788 31 Jan, 2014 [facility] [place] [facility] [address] [id number] [place] [address]- 2120 31 Jan, 2014 [facility] [place] [facility] [address] [id number] [place] [address]- 8202 14 Jan, 2014 [facility] [place] [facility] [address] [id number] [place] [address]- 0672 14 Jan, 2014 [facility] [place] [facility] [address] [facility] [id number] [place] 5944 09 Jan, 2014 [facility] [place] [facility] [address] [id number] [place] [address]- 2369 09 Jan, 2014 [facility] [place] [facility] [address] [id number] [place] [address]- 5190 19 Dec, 2013 [facility] [place] [facility] [address] [id number] [place] [address]- 3082 19 Dec, 2013 [facility] [place] [facility] [address] [id number] [place] [address]- 8755 15 Dec, 2013 [facility] [place] [facility] [address] [id number] [place] [address] 2541 15 Dec, 2013 [facility] [place] [facility] [address] [id number] [place] [address]- 4518 15 Dec, 2013 [facility] [place] [facility] [address] [id number] [place] [address]- 6609 15 Dec, 2013 [facility] [place] [facility] [address] [id number] [place] [address]- 4731 12 Dec, 2013 [facility] [place] [facility] [address] [id number] [place] [address]- 1450 Dec, [facility] [place] [facility] [address] [id number] [place] [address]- 3394 Dec, [facility] [place] [facility] [address] [id number] [place] [address]- 6746 Dec, [facility] [place] [facility] [address] [id number] [place] [address]- 5258 Nov, [facility] [place] [facility] [address] [id number] [place] [address]- 8092 Nov, [facility] [place] [facility] [address] [id number] [place] [address]- 0084 Nov, [facility] [place] [facility] [address] [id number] [place] [address]- 6589 Nov, [facility] [place] [facility] [address] [id number] [place] [address]- 2481 Oct, [facility] [place] [facility] [address] [id number] [place] [address]- 4282 Oct, [facility] [place] [facility] [address] [id number] [place] [address]- 3990 Oct, [facility] [place] [facility] [address] [id number] [place] [address]- 9501 Oct, [facility] [place] [facility] [address] [id number] [place] [address]- 5049 Sep, [facility] [place] [facility] [address] [id number] [place] [address]- 5055 Sep, [facility] [place] [facility] [address] [id number] [place] [address]- 2704 Sep, [facility] [place] [facility] [address] [id number] [place] [address]- 3025 Sep, [facility] [place] [facility] [address] [id number] [place] [address]- 9060 Sep, [facility] [place] [facility] [address] [id number] [place] [address] Sep, [facility] [place] [facility] [address] [id number] [place] [address] Sep, [facility] [place] [facility] [address] [id number] [place] [address] Sep, [facility] [place] [facility] [address] [id number] [place] [address] August, [facility] [place] [facility] [address] [id number] [place] [address] August, [facility] [place] [facility] [address] [id number] [place] [address] Jul, [facility] [place] [facility] [address] [id number] [place] [address] Jul, [facility] [place] [facility] [address] [id number] [place] [address] Jul, [facility] [address] [id number] [place] [address] Jul, [facility] [place] [facility] [address] [id number] [place] [address] Jul, [facility] [address] [id number] [place] [address] Jul, [facility] [place] [facility] [address] [id number] [place] [address] Jul, [facility] [address] [id number] [place] [address] Jul, [facility] [address] [id number] [place] [address] Jul, [facility] [address] [id number] [place] [address] Jul, [facility] [address] [id number] [place] [address] Jun, [facility] [place] [facility] [address] [id number] [place] [address] 27 Jun, 2013 [facility] [address] [id number] [place] [address] 18 Jun, 2013 [facility] [place] [facility] [address] [id number] [place] [address] 18 Jun, 2013 [facility] [place] [facility] [address] [id number] [place] [address] 17 Jun, 2013 [facility] [place] [facility] [address] [id number] [place] [address] 17 Jun, 2013 [facility] [place] [facility] [address] [id number] [place] [address] 17 Jun, 2013 [facility] [place] [facility] [address] [id number] [place] [address] 17 Jun, 2013 [facility] [place] [facility] [address] [id number] [place] [address] 14 Jun, 2013 [facility] [place] [facility] [address] [id number] [place] [address] 14 Jun, 2013 [facility] [place] [facility] [address] [id number] [place] [address] 07 Jun, 2013 [facility] [place] [facility] [address] [id number] [place] [address] Jun, [facility] [place] [facility] [address] [id number] [place] [address] Jun, [facility] [place] [facility] [address] [id number] [place] [address] Jun, [facility] [place] [facility] [address] [id number] [place] [address] Jun, [facility] [place] [facility] [address] [id number] [place] [address] Jun, [facility] [place] [facility] [address] [id number] [place] [address] May, [facility] [place] [facility] [address] [id number] [place] [address] May, [facility] [place] [facility] [address] [id number] [place] [address] May, [facility] [place] [facility] [address] [id number] [place] [address] May, [facility] [place] [facility] [address] [id number] [place] [address] Mar, [facility] [place] [facility] [address] [id number] [place] [address] Mar, [facility] [place] [facility] [address] [id number] [place] [address] Mar, [facility] [place] [facility] [address] [id number] [place] [address]43 09 Mar, 2013 [facility] [place] [facility] [address] [id number] [place] [address] Mar, [facility] [place] [facility] [address] [id number] [place] [address] Mar, [facility] [place] [facility] [address] [id number] [place] [address] 2547 Mar, [facility] [place] [facility] [address] [id number] [place] [address] 2547 Mar, [facility] [place] [facility] [address] [id number] [place] [address] Jan, [facility] [place] [facility] [address] [id number] [place] [address] Jan, [facility] [place] [facility] [address] [id number] [place] [address] Jan, [facility] [place] [facility] [address] [id number] [place] [address] Jan, [facility] [place] [facility] [address] [id number] [place] [address] Jan, [facility] [place] [facility] [address] [id number] [place] [address] 34[address] Jan, [facility] [place] [facility] [address] [id number] [place] [address] Jan, [facility] [place] [facility] [address] [id number] [place] [address]40 Dec, [facility] [place] [facility] [address] [id number] [place] [address] 2540 Nov, [facility] [place] [facility] [address] [id number] [place] [address] Oct, [facility] [place] [facility] [address] [id number] [place] [address]46 Oct, [facility] [place] [facility] [address] [id number] [place] [address] Sep, [facility] [place] [facility] [address] [id number] [place] [address] Sep, [facility] [place] [facility] [address] [id number] [place] [address] Sep, [facility] [place] [facility] [address] [id number] [place] [address] August, [facility] [place] [facility] [address] [id number] [place] [address] Jun, [facility] [place] [facility] [address] [id number] [place] [address] 20 Jun, 2012 [facility] [place] [facility] [address] [id number] [place] [address] 15 Jun, 2012 [facility] [place] [facility] [address] [id number] [place] [address] 6527 15 Jun, 2012 [facility] [place] [facility] [address] [id number] [place] [address] 0436 Jun, [facility] [place] [facility] [address] [id number] [place] [address] Jun, [facility] [place] [facility] [address] [id number] [place] [address] Jun, [facility] [place] [facility] [address] [id number] [place] [address] 2053 May, [facility] [place] [facility] [address] [id number] [place] [address] 3989 May, [facility] [place] [facility] [address] [id number] [place] [address]484 14 May, 2012 [facility] [place] [facility] [address] [id number] [place] [address] 1281 May, [facility] [place] [facility] [address] [id number] [address] May, [facility] [address] [id number] [place] [address] May, [facility] [place] [facility] [address] [id number] [place] [address] 3533 May, [facility] [address] [facility] [id number] [place] [address]- 2435 Mar, [facility] [place] [facility] [address] [id number] [place] [address]137 Mar, [facility] [address] [id number] [place] [address] Mar, [facility] [address] [id number] [place] [address] 5943 Mar, [facility] [id number] [place] [address] Mar, [facility] [place] [facility] [address] [id number] [place] [address]- 7781 Mar, [facility] [address] [id number] [place] [address] Mar, [facility] [place] [facility] [address] [facility] [id number] [place] [address]- [address]7 Mar, [facility] [address] [id number] [place] [address]- 6161 Mar, [facility] [place] [facility] [address] [id number] [address] Mar, [facility] [place] [facility] [address] [id number] [place] [address]- 2535 Mar, [facility] [place] [facility] [address] [facility] [id number] [place] [address]- 7438 Mar, [facility] [place] [facility] [address] [id number] [place] [address] 6191 Mar, [facility] [place] [facility] [address] [id number] [place] [address] 2646 Mar, [facility] [place] [facility] [address] [id number] [place] [address] 4093 Mar, [facility] [place] [facility] [address] [id number] [place] [address] Mar, [facility] [place] [facility] [address] [id number] [place] [address] 1212 Mar, [facility] [place] [facility] [address] [id number] [place] [address]- 6116 Mar, [facility] [place] [facility] [address] [id number] [place] [address]- 3245 Mar, [facility] [place] [facility] [address] [id number] [place] [address]- 4121 Jan, [facility] [place] [facility] [address] [id number] [place] [address]- 6999 Jan, [facility] [place] [facility] [address] [id number] [place] [address]- 6004 Jan, [facility] [place] [facility] [address] [id number] [place] [address]- 2946 Jan, [facility] [place] [facility] [address] [id number] [place] [address]- 4439 Dec, [facility] [place] [facility] [address] [id number] [place] [address]- 8532 18 Dec, 2011 [facility] [place] [facility] [address] [id number] [place] [address]- 3270 Dec, [facility] [place] [facility] [address] [id number] [place] [address]- 2264 Nov, [facility] [place] [facility] [address] [id number] [place] [address]- 2934 Nov, [facility] [place] [facility] [address] [id number] [place] [address] Oct, [facility] [address] [facility] [id number] [place] [address] Oct, [facility] [address] [facility] [id number] [place] [address] 6722 Oct, [facility] [address] [facility] [id number] [place] [address]164 Oct, [facility] [id number] [address] Oct, [facility] [address] [facility] [id number] [place] [address]8 Oct, IMMUNIZATIONS No Known Immunizations SOCIAL HISTORY Never Assessed REASON FOR VISIT Diabetes fu -- shazia mendez, Would like to check status of disability paperwork PLAN OF CARE Activity Details Follow Up 3 Months, prn Reason:CHM/Pre-diabetes VITAL SIGNS Height 63 in 2017-08-04 Weight 258.1 lbs 2017-08-04 Temperature 98.0 degrees Fahrenheit 2017-08-04 Heart Rate 78 bpm 2017-08-04 Respiratory Rate 20 2017-08-04 BMI 45.72 kg/m2 2017-08-04 Blood pressure systolic 132 mmHg 2017-08-04 Blood pressure diastolic 78 mmHg 2017-08-04 MEDICATIONS Medication Instructions Dosage Frequency Start Date End Date Duration Status Lamictal 150 MG TAKE ONE TABLET BY MOUTH ONCE DAILY Active Hydrochlorothiazide 50 MG TAKE ONE TABLET BY MOUTH ONCE DAILY Active Protonix 20 mg Orally Once a day 1 tablet 24h Active Citalopram Hydrobromide 40 mg Orally Once a day 1 tablet 24h 30 Active Zyrtec Allergy 10 MG TAKE ONE TABLET BY MOUTH ONCE DAILY Active Albuterol Sulfate 0.63 MG/3ML Inhalation every 4 hrs 3 ml as needed 4h Jun, Not-Taking Gabapentin 300 MG Orally Three times a day 1 capsule 8h Active Meloxicam 7.5 MG TAKE ONE TABLET BY MOUTH TWICE DAILY Active ZyrTEC 10 mg orally Once a day 1 tablet by Oral route 1 time per day 24h 30 Active Albuterol Sulfate HFA 108 (90 Base) MCG/ACT Inhalation every 4 hrs 2 puffs as needed 4h May, Not-Taking Flonase 50 MCG/ACT Nasally Once a day 1 spray in each nostril 24h 30 Not-Taking MetFORMIN HCl ER 500 mg Orally Once a day 1 tablet with evening meal 24h 10 Jan, 2017 Active Risperdal 1 MG TAKE ONE TABLET BY MOUTH TWICE DAILY Active RESULTS Name Result Date Reference Range A1C (IN HOUSE) 2017-08-04 A1C IN HOUSE 5.3 4.3 - 5.6 % Previous A1c 6.0 Lot [id number] Exp date 03/2019 PROCEDURES Procedure Date Ordered Result Body Site GLYCATED HEMOGLOBIN TEST August 04, 2017 INSTRUCTIONS MEDICATIONS ADMINISTERED No Known Medications [...]
--- OUTSIDE RECORDS SUMMARY | 2018-05-15 06:24 | XMS REPORT ---
Author Author RAY NEVAREZ [facility] Address [address] [place] [address] Care Team Providers Care Reed Dipper Name Role Phone RAY NEVAREZ Unavailable PROBLEMS Type Condition ICD9-CM Code XXK31-AS Code Onset Dates Condition Status SNOMED Code Problem Major depressive disorder, single episode, unspecified F32.9 Active 92116170 Problem Schizoaffective disorder, bipolar type F25.0 Active 41603990 Problem Neuropathy G62.9 Active 969690261 Problem COPD suggested by initial evaluation J44.9 Active 78556294 Problem Body mass index (BMI) of 45.0-49.9 in adult Z68.42 Active 544049113 Problem Post-menopausal bleeding N95.0 Active 56408068 Problem 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 [address] [facility] [id number] [address] Oct, [facility] [address] [address] Oct, Prediabetes R73.03 ; COPD suggested by initial evaluation J44.9 ; BMI 45.0-49.9, adult Z68.42 and Obstructive sleep apnea G47.33 [facility] [id number] [place] [address] 42795- 7402 Sep, [facility] [id number] [place] [address] 62257- 9362 August, Neuropathy G62.9 [facility] [id number] [place] [address] 42980- 8201 August, [place] [address] 16720- 7216 August, 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 [place] [id number] [place] [address] 31434- 0289 Jul, Prediabetes R73.03 ; Primary osteoarthritis of left knee M17.12 ; GERD (gastroesophageal reflux disease) K21.9 ; Bipolar 1 disorder F31.9 ; Depression F32.9 ; Environmental allergies Z91.09 ; Neuropathy G62.9 ; Edema R60.9 ; Body mass index (BMI) of 45.0-49.9 in adult Z68.42 and Morbid ( severe) obesity due to excess calories E66.01 [place] [id number] [place] [address] 32294- 6952 Jul, [place] [id number] [place] [address] 81502- 8240 Jun, [place] [id number] [place] [address] 11861- 6844 Jun, [place] [id number] [place] [address] 53756- 6365 Jun, Wound of right breast, initial encounter S21.001A and Prediabetes R73.03 [place] [id number] [place] [address] 51504- 6626 Jun, [place] [id number] [place] [address] 18123- 1543 May, GERD (gastroesophageal reflux disease) K21.9 [place] [address] 21178- 7729 May, Primary osteoarthritis of left knee M17.12 [place] [id number] [place] [address] 13572- 6423 May, Schizoaffective disorder, bipolar type F25.0 and 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 [place] [address] 59710- 9177 May, Left medial knee pain M25.562 ; GERD (gastroesophageal reflux disease) K21.9 ; Depression F32.9 ; Neuropathy G62.9 ; Obesity E66.9 ; Prediabetes R73.03 and Edema R60.9 [place] [id number] [place] [address] 57441- 7749 14 Mar, 2017 [place] [id number] [place] [address] 22133- 6487 Mar, [place] [id number] [place] [address] 72861- 9164 05 Mar, 2017 Post-menopausal bleeding N95.0 and BMI 50.0-59.9, adult Z68.43 [place] [id number] [place] [address] 01229- 9675 Mar, [place] [id number] [place] [address] 63293- 1572 Mar, Schizoaffective disorder, bipolar type F25.0 and 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 [id number] [place] [address] 30599- 8834 Mar, [facility] [id number] [place] [address] 88626- 9958 Mar, Post-menopausal bleeding N95.0 ; Screening breast examination Z12.31 ; Screen for STD (sexually transmitted disease) Z11.3 ; Obesity E66.9 ; Family history of ovarian cancer Z80.41 and Family history of cervical cancer Z80.49 [facility] [id number] [place] [address] 92769- 1516 Mar, [facility] [id number] [place] [address] 98808- 7258 Mar, 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 [id number] [place] [address] 67967- 9437 Jan, Schizoaffective disorder, bipolar type F25.0 [facility] [id number] [place] [address] 57092- 1753 Jan, [facility] [id number] [place] [address] 72145- 7344 Jan, Prediabetes R73.[address] [facility] [id number] [place] [address] 93075- 6021 Jan, Encounter for immunization Z23 [facility] [id number] [place] [address] 48561- 6788 Jan, [facility] [id number] [place] [address] 14140- 8191 Dec, [facility] [id number] [place] [address] 05080- 0775 Dec, [facility] [address] [place] [address] 83489- 5936 Nov, Neuropathy G62.9 [facility] [id number] [place] [address] 67593- 5099 Nov, [facility] [id number] [place] [address] 29331- 6568 Nov, Schizoaffective disorder, bipolar type F25.0 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 [address] 10734- 0646 Sep, Neuropathy G62.9 [facility] [id number] [place] [address] 42936- 2499 Sep, [facility] [id number] [place] [address] 80055- 5311 Sep, Neuropathy G62.9 [facility] [id number] [place] [address] 37784- 2752 Jul, Schizoaffective disorder, depressive type F25.1 [facility] [id number] [place] [address] 52520- 6990 Jul, GERD (gastroesophageal reflux disease) K21.9 ; Joint pain of lower extremity M25.50 ; Environmental allergies Z91.09 ; Stress incontinence of urine N39.3 ; Neuropathy G62.9 ; Edema R60.9 and Acute pain of left knee M25.562 [facility] [address] [place] [address] 80252- 5649 28 Jun, 2016 [facility] [id number] [place] [address] [id number] Jun, Dental examination Z01.20 [facility] [id number] [place] [address] 37190- 5793 Jun, [facility] [id number] [place] [address] 86916- 0868 May, [place] [address] 48469- 2913 May, Bipolar 1 disorder F31.9 ; Joint pain of lower extremity M25.50 ; Environmental allergies Z91.09 ; Stress incontinence of urine N39.3 ; Major depressive disorder, single episode, unspecified F32.9 ; Dizzy R42 ; Schizoaffective disorder, unspecified F25.9 ; Neuropathy G62.9 ; Localized edema R60.0 and GERD (gastroesophageal reflux disease) K21.9 [facility] [id number] [place] [address] 81211- 9925 May, Schizoaffective disorder, depressive type F25.1 [place] [id number] [place] [address] 00734- 2077 May, Environmental allergies Z91.09 and Major depressive disorder , single episode, unspecified F32.9 [facility] [address] [place] [address] 25546- 7770 Mar, Dental caries K02.9 [facility] [address] 94678- 8079 Mar, Dental caries on smooth surface penetrating into pulp K02.63 [facility] [id number] [place] [address] 30696 -1475 05 Mar, 2016 Peripheral edema R60.9 and Dry skin L85.3 [place] [address] [place] [address] 42660- 8192 05 Mar, 2016 [place] [address] 26361- 6028 30 Mar, 2016 Major depressive disorder, single episode, unspecified F32.9 [place] [address] 09817- 0157 09 Mar, 2016 Dental caries K02.9 [place] [address] 02876- 4507 07 Mar, 2016 Diabetes mellitus with complication E11.8 ; Urinary frequency R35.0 ; Stress incontinence of urine N39.3 ; Joint pain of lower extremity M25.50 ; Obesity E66.9 ; Environmental allergies Z91.09 ; Depression F32.9 ; Schizoaffective disorder, unspecified F25.9 ; Vaginal discharge N89.8 and Vaginal candidiasis B37.3 [place] [id number] [place] [address] 10195- 6708 Jan, Schizoaffective disorder, unspecified F25.9 [place] [id number] [place] [address] 79337- 9822 17 Jan, 2016 [place] [id number] [place] [address] 33384- 1893 30 Dec, 2015 [place] [id number] [place] [address] 90292- 6028 19 Dec, 2015 Dental caries K02.9 [place] [id number] [place] [address] 42634- 0549 14 Dec, 2015 Obesity E66.9 ; Edema R60.9 ; Depression F32.9 ; Bipolar 1 disorder F31.9 ; 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 [id number] [place] [address] 81163- 7612 08 Nov, [address] [facility] [id number] [place] [address] 14882- 7348 Oct, Schizoaffective disorder, unspecified F25.9 [facility] [id number] [place] [address] 49504- 4651 Oct, Dental examination Z01.20 [facility] [id number] [place] [address] 65481- 4265 Sep, Dental examination Z01.20 and Dental caries K02.9 [facility] [id number] [place] [address] 49727- 2582 Sep, [facility] [id number] [place] [address] 50481- 6052 Sep, [facility] [id number] [place] [address] 19476- 7201 Sep, [facility] [id number] [place] [address] 95929- 4992 Sep, Schizoaffective disorder, unspecified F25.9 [facility] [id number] [place] [address] 43935- 1817 August, Bipolar disorder, unspecified F31.9 [facility] [id number] [place] [address] 08593- 8520 Jul, Edema R60.[address] [facility] [id number] [place] [address] 44308- 3689 Jul, Edema R60.9 [facility] [id number] [place] [address] 50664- 2200 Jul, Edema R60.9 [facility] [id number] [place] [address] 18948 -3698 Jul, Edema R60.9 [facility] [id number] [place] [address] 03695- 1182 Jul, [facility] [address] 06727- 9501 Jul, [facility] [id number] [place] [address] 81773- 0189 24 Jun, 2015 Environmental allergies V15.[address] [facility] [address] 03580- 6316 17 Jun, 2015 Environmental allergies V15.09 ; Edema R60.9 and Cough R05 [facility] [address] 25248 -8911 12 Jun, 2015 Bronchospasm J98.01 [place] [address] 13237- 0213 Jun, [place] [address] 98578- 3719 Jun, [place] [id number] [place] [address] 36297- 1515 Jun, Environmental allergies V15.09 ; Bipolar 1 disorder F31.9 ; GERD (gastroesophageal reflux disease) K21.9 ; Depression F32.9 ; Joint pain of lower extremity M25.50 ; COPD (chronic obstructive pulmonary disease) J44.9 and Screening for diabetes mellitus Z13.1 [place] [id number] [place] [address] 89513- 6711 Jun, [place] [id number] [place] [address] 07081- 0793 May, [place] [address] 10337- 4484 May, Schizoaffective disorder, unspecified F25.9 and Bipolar 1 disorder F31.9 [place] [address] 07018- 1132 May, [place] [address] 06395- 1515 May, URI (upper respiratory infection) J06.9 ; Environmental allergies V15.09 and Cough R05 [place] [address] 27934- 1479 18 Mar, 2015 [place] [address] 76374- 4657 Mar, Vaginal discharge N89.8 [place] [address] 39915- 8429 14 Mar, 2015 Schizoaffective disorder, unspecified F25.9 ; Major depressive disorder, single episode, unspecified F32.9 and Bipolar 1 disorder F31.9 [place] [address] 69082- 9679 Mar, [place] [address] 84867- 1836 Mar, Bipolar 1 disorder F31.9 [place] [address] 18195- 7927 Jan, [place] [address] 80349- 3623 Jan, Allergic rhinitis J30.9 and Cough R05 [place] [address] 83058- 1219 Jan, 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 ; Bipolar 1 disorder F31.9 ; GERD ( gastroesophageal reflux disease) K21.9 ; Depression F32.9 and Joint pain of lower extremity M25.50 [place] [address] 86507- 3525 28 Dec, 2014 Encounter for immunization Z23 [place] [address] 31582- 6428 02 Dec, 2014 Schizoaffective disorder, unspecified 295.70 ; Pain in joint , lower leg 719.46 ; Esophageal reflux 530.81 ; Bipolar 1 disorder 296.7 ; Depression 311 ; GERD (gastroesophageal reflux disease) 530.81 and Environmental allergies V15.09 [facility] [id number] [place] [address] [id number] Nov, Dental examination V72.2 [facility] [id number] [place] [address] 36390- 6846 Nov, Acute bronchitis 466.0 [facility] [address] 86272- 4056 Nov, Schizoaffective disorder, unspecified 295.70 and Bipolar disorder, unspecified 296.80 [facility] [address] [id number] Sep, Dental examination V72.2 [facility] [address] [id number] August, Dental examination V72.2 [facility] [id number] [place] [address] 921729- 3586 August, Schizoaffective disorder, unspecified 295.70 [facility] [id number] [place] [address] 55936503- 8926 August, [facility] [id number] [place] [address] 138343- 0936 August, Vomiting 787.03 [facility] [address] 943147- 5716 August, Vomiting and diarrhea 787.03 and High risk medication use V58.69 [facility] [id number] [place] [address] 539465- 4196 Jul, [facility] [address] 123352- 5615 Jul, [facility] [id number] [place] [address] 46829835- 0431 Jul, [facility] [address] [place] [address] [id number] [place] [address]- 7166 27 Jun, 2014 [facility] [place] [facility] [address] [id number] [place] [address]- 0042 27 Jun, 2014 [facility] [place] [facility] [address] [id number] [place] [address]- 4446 17 Jun, 2014 [facility] [place] [facility] [address] [id number] [place] [address]- 2336 17 Jun, 2014 [facility] [place] [facility] [address] [id number] [place] [address]- 0467 16 Jun, 2014 [facility] [place] [facility] [address] [id number] [place] [address]- 4186 Jun, 2014 [facility] [place] [facility] [address] [facility] [id number] [place] [address]- 8078 13 Jun, 2014 [facility] [place] [facility] [address] [facility] [id number] [place] [address]- 0330 Jun, 2014 [facility] [place] [facility] [address] [id number] [place] [address]- 1689 Jun, 2014 [facility] [place] [facility] [address] [facility] [id number] [place] [address]- 6602 Mar, [facility] [place] [facility] [address] [facility] [id number] [place] [address]- 3852 Mar, [facility] [place] [facility] [address] [facility] [id number] [place] [address]- 9148 Mar, [facility] [place] [facility] [address] [id number] [place] [address]- 2549 Mar, [facility] [place] [facility] [address] [id number] [place] [address]- 6856 Mar, [facility] [place] [facility] [address] [facility] [id number] [place] [address]- 5576 Mar, [facility] [place] [facility] [address] [facility] [id number] [place] [address]- 6106 Mar, [facility] [place] [facility] [address] [id number] [place] 5786 Mar, [facility] [place] [facility] [address] [id number] [place] [address]- 6571 Mar, [facility] [place] [facility] [address] [id number] [place] 6264 Mar, [facility] [place] [facility] [address] [id number] [place] [address]- 3888 Jan, [facility] [place] [facility] [address] [id number] [place] [address]- 2618 Jan, [facility] [place] [facility] [address] [id number] [place] [address]- 3170 Jan, [facility] [place] [facility] [address] [id number] [place] [address]- 1700 Jan, [facility] [place] [facility] [address] [id number] [place] [address]- 3709 Jan, [facility] [place] [facility] [address] [id number] [place] [address]- 7321 Jan, [facility] [place] [facility] [address] [id number], [place] [address]- 6781 Jan, [facility] [place] [facility] [address] [id number], [place] [address]- 8317 Jan, [facility] [place] [facility] [address] [id number], [place] [address]- 4846 Dec, [facility] [place] [facility] [address] [id number] [place] [address]- 5737 19 Dec, 2013 [facility] [place] [facility] [address] [id number], [place] [address]- 1991 15 Dec, 2013 [facility] [place] [facility] [address] [id number] [place] [address]- 7414 15 Dec, 2013 [facility] [place] [facility] [address] [id number] [place] [address]- 1665 15 Dec, 2013 [facility] [place] [facility] [address] [id number] [place] [address]- 5058 15 Dec, 2013 [facility] [place] [facility] [address] [id number] [place] [address]- 5981 12 Dec, 2013 [facility] [place] [facility] [address] [id number] [place] [address]- 1631 12 Dec, 2013 [facility] [place] [facility] [address] [id number] [place] [address]- 7307 Dec, [facility] [place] [facility] [address] [id number] [place] [address]- 2550 Dec, [facility] [place] [facility] [address] [id number] [place] [address]- 2090 Nov, [facility] [place] [facility] [address] [id number] [place] [address]- 5914 Nov, [facility] [place] [facility] [address] [id number] [place] [address]- 9418 Nov, [facility] [place] [facility] [address] [id number] [place] [address]- 2164 Nov, [facility] [place] [facility] [address] [id number] [place] [address]- 8351 Oct, [facility] [place] [facility] [address] [id number] [place] [address]- 1023 Oct, [facility] [place] [facility] [address] [id number] [place] [address]- 0002 Oct, [facility] [place] [facility] [address] [id number] [place] [address] Oct, [facility] [place] [facility] [address] [id number] [place] [address] Sep, [facility] [place] [facility] [address] [id number] [place] [address] Sep, [facility] [place] [facility] [address] [id number] [place] [address] Sep, [facility] [place] [facility] [address] [id number] [place] [address] Sep, [facility] [place] [facility] [address] [id number] [place] [address] Sep, [facility] [place] [facility] [address] [id number] [place] [address] Sep, [facility] [place] [facility] [address] [id number] [place] [address] Sep, [facility] [place] [facility] [address] [id number] [place] [address] Sep, [facility] [place] [facility] [address] [id number] [place] [address] August, [facility] [place] [facility] [address] [id number] [place] [address] August, [facility] [place] [facility] [address] [id number] [place] [address] Jul, [facility] [place] [facility] [address] [id number] [place] [address] Jul, [facility] [place] [facility] [address] [id number] [place] [address] Jul, [facility] [place] [facility] [address] [id number] [place] [address] Jul, [facility] [place] [facility] [address] [id number] [place] [address] Jul, [facility] [place] [facility] [address] [id number] [place] [address] Jul, [facility] [place] [facility] [address] [id number] [place] [address] Jul, [facility] [place] [facility] [address] [id number] [place] [address]- [address] 11 Jul, 2013 [facility] [place] [facility] [address] [id number] [place] [address] 07 Jul, 2013 [facility] [place] [facility] [address] [id number] [place] [address] 07 Jul, 2013 [facility] [place] [facility] [address] [id number] [place] [address] 27 Jun, 2013 [facility] [place] [facility] [address] [id number] [place] [address] 27 Jun, 2013 [facility] [place] [facility] [address] [id number] [place] [address]- [address] 18 Jun, 2013 [facility] [place] [facility] [address] [id number] [place] [address]- [address] 18 Jun, 2013 [facility] [place] [facility] [address] [id number] [place] [address]- [address] 17 Jun, 2013 [facility] [place] [facility] [address] [id number] [place] [address] 17 Jun, 2013 [facility] [place] [facility] [address] [id number] [place] [address]- [address] 17 Jun, 2013 [facility] [place] [facility] [address] [id number] [place] [address]- [address] 17 Jun, 2013 [facility] [place] [facility] [address] [id number] [place] [address] 14 Jun, 2013 [facility] [place] [facility] [address] [id number] [place] [address] 14 Jun, 2013 [facility] [place] [facility] [address] [id number] [place] [address]- [address] 07 Jun, 2013 [facility] [place] [facility] [address] [id number] [place] [address] 07 Jun, 2013 [facility] [place] [facility] [address] [id number] [place] [address] Jun, [facility] [place] [facility] [address] [id number] [place] [address] Jun, [facility] [address] [id number] [place] [address] Jun, [facility] [place] [facility] [address] [id number] [place] [address]46 Jun, [facility] [address] [id number] [place] [address] May, [facility] [address] [id number] [place] [address] May, [facility] [address] [id number] [place] [address] May, [facility] [address] [id number] [place] [address] May, [facility] [address] [id number] [place] [address] Mar, [facility] [address] [id number] [place] [address] Mar, [facility] [address] [id number] [place] [address] Mar, [facility] [address] [id number] [place] [address] Mar, [facility] [place] [facility] [address] [id number] [place] [address] Mar, [facility] [address] [id number] [place] [address] Mar, [facility] [place] [facility] [address] [id number] [place] [address]- [address] Mar, [facility] [place] [facility] [address] [id number] [place] [address] Mar, [facility] [place] [facility] [address] [id number] [place] [address]- 1396 Jan, [facility] [place] [facility] [address] [id number] [place] [address] Jan, [facility] [place] [facility] [address] [id number] [place] [address] Jan, [facility] [place] [facility] [address] [id number] [place] [address] Jan, [facility] [place] [facility] [address] [id number] [place] [address] Jan, [facility] [place] [facility] [address] [id number] [place] [address] Jan, [facility] [place] [facility] [address] [id number] [place] [address]- [address] Jan, [facility] [place] [facility] [address] [id number] [place] [address] Dec, [facility] [place] [facility] [address] [id number] [place] [address] Nov, [facility] [place] [facility] [address] [id number] [place] [address] Oct, [facility] [place] [facility] [address] [id number], [place] [address] Oct, [facility] [place] [facility] [address] [id number] [place] [address] Sep, [facility] [place] [facility] [address] [id number], [place] [address] Sep, [facility] [place] [facility] [address] [id number] [place] [address]67 Sep, [facility] [place] [facility] [address] [id number] [place] [address] August, [facility] [place] [facility] [address] [id number] [place] [address] Jun, [facility] [place] [facility] [address] [id number] [place] [address]77 20 Jun, 2012 [facility] [address] [id number] [place] [address] 15 Jun, 2012 [facility] [address] [id number] [place] [address] 15 Jun, 2012 [facility] [address] [id number] [place] [address] 13 Jun, 2012 [facility] [address] [id number] [place] [address] 12 Jun, 2012 [facility] [address] [id number] [place] [address]- [address] 07 Jun, 2012 [facility] [address] [id number] [place] [address]- [address]245 May, [facility] [address] [id number] [place] [address] May, [facility] [address] [id number] [place] [address]- [address] 14 May, 2012 [facility] [address] [id number] [place] [address] 7040 May, [facility] [address] [id number] [place] [address]- [address]100 May, [facility] [address] [id number] [place] [address]- 7003 May, [facility] [address] [id number] [place] [address]- 5873 May, [facility] [address] [id number] [place] [address]- [address] Mar, [facility] [address] [id number] [place] [address]- 2546 Mar, [facility] [address] [id number] [place] [address] Mar, [facility] [place] [facility] [address] [id number] [place] [address]- [address]606 Mar, [facility] [place] [facility] [address] [id number] [place] [address]- [address]128 Mar, [facility] [place] [facility] [address] [id number] [place] [address]- 7824 Mar, [facility] [place] [facility] [address] [id number] [place] [address]- [address]553 Mar, [facility] [place] [facility] [address] [id number] [place] [address]- 8779 Mar, [facility] [place] [facility] [address] [id number] [place] [address]- 9871 Mar, [facility] [place] [facility] [address] [id number] [place] [address]- 65[address] Mar, [facility] [place] [facility] [address] [id number] [place] [address]- [address] Mar, [facility] [place] [facility] [address] [id number] [place] [address]- 9866 Mar, [facility] [place] [facility] [address] [id number], [place] [address] Mar, [facility] [place] [facility] [address] [id number], [place] [address] Mar, [facility] [place] [facility] [address] [id number], [place] [address] 3030 Mar, [facility] [place] [facility] [address] [id number] [place] [address]- 8022 Mar, [facility] [place] [facility] [address] [id number], [place] [address] Mar, [facility] [place] [facility] [address] [facility] [id number], [place] [address] Mar, [facility] [place] [facility] [address] [id number], [place] [address]- 9066 Mar, [facility] [address] [facility] [id number] [place] [address]- 3136 Jan, [facility] [address] [facility] [id number], [place] [address] Jan, [facility] [id number] [place] [address]- [address] Jan, [facility] [address] [facility] [id number], [place] [address]- [address] Jan, [facility] [address] [id number] [place] [address]- [address] Dec, [facility] [address] [id number] [place] [address]- [address] Dec, [facility] [id number], [place] [address] Dec, [facility] [id number], [place] [address] Nov, [facility] [id number], [place] [address] Nov, [facility] [id number], [place] [address]- [address] Oct, [facility] [id number], [place] [address]- [address] Oct, [facility] [address] [id number], [place] [address]- [address] Oct, [facility] [address] [id number], [place] [address]- 4070 Oct, [facility] [address] [id number], [place] [address]- [address] Oct, [facility] [address] [id number], [place] [address]- [address] Oct, IMMUNIZATIONS No Known Immunizations SOCIAL HISTORY Never Assessed REASON FOR VISIT knee pain PLAN OF CARE VITAL SIGNS MEDICATIONS Unknown [...]
--- OUTSIDE RECORDS SUMMARY | 2018-05-15 06:24 | XMS REPORT ---
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 Name Role Phone NEVAREZRAY Kraft Unavailable PROBLEMS Type Condition ICD9-CM Code [id number] Code Onset Dates Condition Status SNOMED Code Problem Major depressive disorder, single episode, unspecified F32.9 Active 99701553 Problem Schizoaffective disorder, bipolar type F25.0 Active 20886686 Problem Neuropathy G62.9 Active 248133356 Problem COPD suggested by initial evaluation J44.9 Active 58079231 Problem Body mass index (BMI) of 45.0-49.9 in adult Z68.42 Active 087676403 Problem Post-menopausal bleeding N95.0 Active 45555439 Problem 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 Active 479648310 Problem Morbid (severe) obesity due to excess calories E66.01 Active 744816071 Problem Primary osteoarthritis of left knee M17.12 Active 130600706 Problem Obstructive sleep apnea G47.33 Active 95184737 Problem Bipolar 1 disorder F31.9 Active 015057386 Problem Edema R60.9 Active 605784352 Problem Depression F32.9 Active 05015803 Problem Obesity E66.9 Active 614266429 Problem GERD (gastroesophageal reflux disease) K21.9 Active 693950813 Problem Environmental allergies Z91.09 Active 163886700 ALLERGIES No Information ENCOUNTERS Encounter Location Date Diagnosis [facility] [address] [facility] [id number] [address] Jan, [facility] [address] [address] Oct, [facility] [address] [id number] [address] 0899 Oct, 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 [facility] [id number] [place] [address] 22657- 5321 Oct, Schizoaffective disorder, bipolar type F25.0 ; 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 and 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 [place] [facility] [id number] [place] [address] 33618- 9139 Oct, Prediabetes R73.03 ; COPD suggested by initial evaluation J44.9 ; BMI 45.0-49.9, adult Z68.42 and Obstructive sleep apnea G47.33 [place] [facility] [id number] [place] [address] 70394- 6557 Sep, [facility] [id number] [place] [address] 87926- 6039 August, Neuropathy G62.9 [place] [facility] [id number] [place] [address] 46010- 4382 August, [facility] [id number] [place] [address] 39635- 7359 August, [place] [id number] [place] [address] 00306- 5671 Jul, [facility] [id number] [place] [address] 01631- 6931 Jul, Primary osteoarthritis of left knee M17.12 [facility] [id number] [place] [address] 77719- 4716 Jul, Schizoaffective disorder, bipolar type F25.0 and 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 [facility] [id number] [place] [address] 76663- 8495 Jul, Prediabetes R73.03 ; Primary osteoarthritis of left knee M17.12 ; GERD (gastroesophageal reflux disease) K21.9 ; Bipolar 1 disorder F31.9 ; Depression F32.9 ; Environmental allergies Z91.09 ; Neuropathy G62.9 ; Edema R60.9 ; Body mass index (BMI) of 45.0-49.9 in adult Z68.42 and Morbid ( severe) obesity due to excess calories E66.01 [place] [id number] [place] [address] 54633- 3028 Jul, [place] [address] 35233- 5925 Jun, [place] [facility] [address] 60501- 3840 Jun, [facility] [facility] [address] 18525- 9373 Jun, Wound of right breast, initial encounter S21.001A and Prediabetes R73.03 [place] [address] 66657- 5303 Jun, [place] [address] 01816- 2927 May, GERD (gastroesophageal reflux disease) K21.9 [facility] [address] 02142- 6237 May, Primary osteoarthritis of left knee M17.12 [facility] [address] 11726- 6920 May, Schizoaffective disorder, bipolar type F25.0 and Methamphetamine abuse in remission F15.[address] 19283- 8162 May, Left medial knee pain M25.562 ; GERD (gastroesophageal reflux disease) K21.9 ; Depression F32.9 ; Neuropathy G62.9 ; Obesity E66.9 ; Prediabetes R73.03 and Edema R60.9 [place] [id number] [place] [address] 17792- 4760 14 Mar, 2017 [place] [address] 18388- 7647 Mar, [place] [address] 57202- 2395 Mar, Post-menopausal bleeding N95.0 and BMI 50.0-59.9, adult Z68.43 [facility] [id number] [place] [address] 00612- 7270 Mar, [facility] [id number] [place] [address] 45000- 7704 Mar, Schizoaffective disorder, bipolar type F25.0 and 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 [facility] [id number] [place] [address] 75251- 7604 Mar, [facility] [id number] [place] [address] 74884- 7985 Mar, [facility] [id number] [place] [address] 17142- 1839 Mar, Post-menopausal bleeding N95.0 ; Screening breast examination Z12.31 ; Screen for STD (sexually transmitted disease) Z11.3 ; Obesity E66.9 ; Family history of ovarian cancer Z80.41 and Family history of cervical cancer Z80.49 [facility] [id number] [place] [address] 92287- 8765 Mar, [facility] [id number] [place] [address] 32046- 3401 Mar, [facility] [id number] [place] [address] 48699- 8238 Jan, Schizoaffective disorder, bipolar type F25.0 and 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 [facility] [address] [address] 3357 Jan, Schizoaffective disorder, bipolar type F25.0 [facility] [address] [address]- 5150 Jan, [facility] [id number] [place] [address] 85633- 1694 Jan, Prediabetes R73.03 and Obesity E66.9 [facility] [address] [address]- 0137 05 Jan, 2017 Encounter for immunization Z23 [facility] [id number] [address]- 4245 Jan, [facility] [id number] [address]- 4441 Dec, [facility] [address] [address]- 8476 Dec, [facility] [id number] [place] [address] 18460- 2007 Nov, Neuropathy G62.9 [facility] [address] [address]- 9068 Nov, [facility] [id number] [place] [address] 52128- 6828 Nov, Schizoaffective disorder, bipolar type F25.0 [facility] [address] [address]- 5569 Nov, 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 and Schizoaffective disorder, bipolar type F25.0 [facility] [address] [address]- 2736 Oct, Schizoaffective disorder, bipolar type F25.0 ; 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 and 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 [facility] [address] [id number] [id number] Oct, Dental caries K02.9 [facility] [address] [address]- 0045 Sep, Neuropathy G62.9 [facility] [id number] [address]- 4472 Sep, [facility] [id number] [place] [address] 70088- 4717 Sep, Neuropathy G62.9 [facility] [address] 93147- 8732 Jul, Schizoaffective disorder, depressive type F25.1 [facility] [address] 02809- 0807 Jul, GERD (gastroesophageal reflux disease) K21.9 ; Joint pain of lower extremity M25.50 ; Environmental allergies Z91.09 ; Stress incontinence of urine N39.3 ; Neuropathy G62.9 ; Edema R60.9 and Acute pain of left knee M25.562 [place] [id number] [place] [address] 12186- 7198 Jun, [facility] [address] [id number] Jun, Dental examination Z01.20 [facility] [id number] [place] [address] 78191- 6529 Jun, [facility] [id number] [place] [address] 03907- 7291 May, [facility] [id number] [place] [address] 14787- 7550 May, Bipolar 1 disorder F31.9 ; Joint pain of lower extremity M25.50 ; Environmental allergies Z91.09 ; Stress incontinence of urine N39.3 ; Major depressive disorder, single episode, unspecified F32.9 ; Dizzy R42 ; Schizoaffective disorder, unspecified F25.9 ; Neuropathy G62.9 ; Localized edema R60.0 and GERD (gastroesophageal reflux disease) K21.9 [facility] [id number] [place] [address] 80110- 9866 May, Schizoaffective disorder, depressive type F25.1 [facility] [id number] [place] [address] 76147- 6823 May, Environmental allergies Z91.09 and Major depressive disorder , single episode, unspecified F32.9 [place] [id number] [place] [address] 85943- 2184 Mar, Dental caries K02.9 [place] [id number] [place] [address] 67333- 5291 Mar, Dental caries on smooth surface penetrating into pulp K02.63 [facility] [address] 50751 -8916 Mar, Peripheral edema R60.9 and Dry skin L85.3 [place] [id number] [place] [address] 62488- 8907 Mar, [place] [address] 96274- 6205 Mar, Major depressive disorder, single episode, unspecified F32.9 [facility] [address] 16264- 6084 Mar, Dental caries K02.9 [facility] [id number] [place] [address] 56189- 4268 Mar, Diabetes mellitus with complication E11.8 ; Urinary frequency R35.0 ; Stress incontinence of urine N39.3 ; Joint pain of lower extremity M25.50 ; Obesity E66.9 ; Environmental allergies Z91.09 ; Depression F32.9 ; Schizoaffective disorder, unspecified F25.9 ; Vaginal discharge N89.8 and Vaginal candidiasis B37.3 [facility] [id number] [place] [address] 71759- 6178 Jan, Schizoaffective disorder, unspecified F25.9 [facility] [id number] [place] [address] 62538- 6973 Jan, [facility] [id number] [place] [address] 10680- 7835 Dec, [facility] [id number] [place] [address] 32689- 0308 19 Dec, 2015 Dental caries K02.9 [facility] [id number] [place] [address] 98110- 8690 14 Dec, 2015 Obesity E66.9 ; Edema R60.9 ; Depression F32.9 ; Bipolar 1 disorder F31.9 ; 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 ; Environmental allergies Z91.09 ; Shortness of breath R06.02 ; Gastroesophageal reflux disease with esophagitis K21.0 ; Other chronic pain G89.29 ; Pain in right knee M25.561 ; Pain in left knee M25.562 and Encounter for immunization Z23 [place] [id number] [place] [address] 36651- 7863 Nov, Dental caries K02.9 [facility] [facility] [id number] [place] [address] 72107- 6573 Oct, Schizoaffective disorder, unspecified F25.9 [facility] [id number] [place] [address] 78483- 7202 Oct, Dental examination Z01.20 [facility] [id number] [place] [address] 70010- 0975 20 Sep, 2015 Dental examination Z01.20 and Dental caries K02.9 [place] [id number] [place] [address] 11678- 6481 13 Sep, 2015 [place] [id number] [place] [address] 07074- 1014 Sep, [place] [id number] [place] [address] 76480- 1991 Sep, [place] [id number] [place] [address] 68697- 2039 Sep, Schizoaffective disorder, unspecified F25.9 [facility] [id number] [place] [address] 40104- 2265 August, Bipolar disorder, unspecified F31.9 [facility] [id number] [place] [address] 82094- 2568 29 Jul, 2015 Edema R60.9 and Obesity E66.9 [facility] [address] 08052- 3845 Jul, Edema R60.9 [facility] [address] 97564- 3754 Jul, Edema R60.9 [facility] [address] 89144 -2885 Jul, Edema R60.9 [facility] [address] 21138- 0753 Jul, [facility] [address] 92935- 8710 Jul, [place] [address] 11508- 9715 Jun, Environmental allergies V15.09 and Cough R05 [facility] [address] 24700- 0389 17 Jun, 2015 Environmental allergies V15.09 ; Edema R60.9 and Cough R05 [facility] [id number] [place] [address] 93550 -1286 12 Jun, 2015 Bronchospasm J98.01 [place] [id number] [place] [address] 72383- 9640 Jun, [facility] [id number] [place] [address] 63961- 6059 Jun, [facility] [address] 05749- 1263 08 Jun, 2015 Environmental allergies V15.09 ; Bipolar 1 disorder F31.9 ; GERD (gastroesophageal reflux disease) K21.9 ; Depression F32.9 ; Joint pain of lower extremity M25.50 ; COPD (chronic obstructive pulmonary disease) J44.9 and Screening for diabetes mellitus Z13.1 [place] [id number] [place] [address] 77388- 6787 16 Jun, 2015 [place] [address] 01669- 1435 19 May, 2015 [place] [address] 38784- 6055 14 May, 2015 Schizoaffective disorder, unspecified F25.9 and Bipolar 1 disorder F31.9 [facility] [facility] [address] 13788- 6345 13 May, 2015 [place] [address] 93544- 8206 12 May, 2015 URI (upper respiratory infection) J06.9 ; Environmental allergies V15.09 and Cough R05 [facility] [facility] [address] 32073- 8863 18 Mar, 2015 [place] [address] 96289- 2683 15 Mar, 2015 Vaginal discharge N89.8 [facility] [address] 68533- 6825 14 Mar, 2015 Schizoaffective disorder, unspecified F25.9 ; Major depressive disorder, single episode, unspecified F32.9 and Bipolar 1 disorder F31.9 [place] [id number] [place] [address] 43713- 1665 Mar, [facility] [id number] [place] [address] 67801- 2877 Mar, Bipolar 1 disorder F31.9 [facility] [facility] [address] 54416- 9572 Jan, [facility] [facility] [address] 38290- 3785 Jan, Allergic rhinitis J30.9 and Cough R05 [facility] [facility] [address] 55771- 3402 Jan, 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 ; Bipolar 1 disorder F31.9 ; GERD ( gastroesophageal reflux disease) K21.9 ; Depression F32.9 and Joint pain of lower extremity M25.50 [facility] [id number] [place] [address] 25772- 5414 Dec, Encounter for immunization Z23 [facility] [address] 080970- 0470 Dec, Schizoaffective disorder, unspecified 295.70 ; Pain in joint , lower leg 719.46 ; Esophageal reflux 530.81 ; Bipolar 1 disorder 296.7 ; Depression 311 ; GERD (gastroesophageal reflux disease) 530.81 and Environmental allergies V15.09 [facility] [id number] [place] [address] [id number] Nov, Dental examination V72.2 [facility] [id number] [place] [address] 27597- 0086 Nov, Acute bronchitis 466.0 [facility] [address] 64332- 9010 Nov, Schizoaffective disorder, unspecified 295.70 and Bipolar disorder, unspecified 296.80 [facility] [id number] [place] [address] [id number] Sep, Dental examination V72.2 [facility] [id number] [place] [address] [id number] August, Dental examination V72.2 [facility] [id number] [place] [address] 59099- 8907 August, Schizoaffective disorder, unspecified 295.70 [facility] [id number] [place] [address] 60712- 5321 August, [facility] [id number] [place] [address] 41783- 1605 August, Vomiting 787.03 [facility] [address] [place] [address]- 8755 August, Vomiting and diarrhea 787.03 and High risk medication use V58.69 [facility] [address] [place] [address]- 4396 30 Jul, 2014 [facility] [address] [address]- 3925 14 Jul, 2014 [facility] [address] [address]- 9115 Jul, [facility] [address]- 2199 Jun, [facility] [address]- 1137 27 Jun, 2014 [facility] [address] [place] [address]- 0803 Jun, [facility] [address] [address]- 1323 17 Jun, 2014 [facility] [address] [place] [address]- 5162 16 Jun, 2014 [facility] [address] [address]- 7766 Jun, [facility] [address] [address]- 8546 Jun, [facility] [place] [facility] [address] 9598 Jun, [facility] [place] [facility] [id number] [address]- 8186 Jun, [facility] [address] [address]- 4422 Mar, [facility] [place] [facility] [id number] [address]- 2336 Mar, [facility] [id number] [place] [address]- 8835 Mar, [facility] [place] [facility] [address] [id number] [place]- 1304 Mar, [facility] [place] [facility] [address] [id number] [place]- 8384 Mar, [facility] [place] [facility] [address] [id number] [place] [address]- 7921 Mar, [facility] [place] [facility] [address] [id number] [place] [address]- 2774 Mar, [facility] [place] [facility] [address] [id number] [place] [address]- 7065 Mar, [facility] [place] [facility] [address] [id number] [place] [address]- 9169 Mar, [facility] [place] [facility] [address] [id number] [place] [address]- 8802 Mar, [facility] [place] [facility] [address] [id number] [place] [address]- 8631 Jan, [facility] [place] [facility] [address] [id number] [place] [address]- 0214 Jan, [facility] [place] [facility] [address] [id number] [place] [address]- 1160 Jan, [facility] [place] [facility] [address] [id number] [place] [address]- 9503 Jan, [facility] [place] [facility] [address] [id number] [place] [address]- 8557 Jan, [facility] [place] [facility] [address] [id number] [place] [address]- 5750 Jan, [facility] [place] [facility] [address] [id number] [place] [address]- 5626 Jan, [facility] [place] [facility] [address] [id number] [place] [address]- 2686 Jan, [facility] [place] [facility] [address] [id number] [place] [address]- 7508 19 Dec, 2013 [facility] [place] [facility] [address] [id number] [place] [address]- 7128 19 Dec, 2013 [facility] [place] [facility] [address] [id number] [place] [address]- 1666 15 Dec, 2013 [facility] [place] [facility] [address] [id number] [place] [address] 2545 15 Dec, 2013 [facility] [place] [facility] [address] [id number] [place] [address]- 9180 15 Dec, 2013 [facility] [place] [facility] [address] [id number] [place] [address]- 7240 15 Dec, 2013 [facility] [place] [facility] [address] [id number] [place] [address]- 2933 Dec, [facility] [place] [facility] [address] [id number] [place] [address]- 3330 Dec, [facility] [place] [facility] [address] [id number] [place] [address]- 5068 Dec, [facility] [place] [facility] [address] [id number] [place] [address]- 8334 Dec, [facility] [place] [facility] [address] [id number] [place] [address]- 8925 Nov, [facility] [place] [facility] [address] [id number] [place] [address]- 8064 Nov, [facility] [place] [facility] [address] [id number] [place] [address]- 4281 Nov, [facility] [place] [facility] [address] [id number] [place] [address] Nov, [facility] [place] [facility] [address] [id number] [place] [address] Oct, [facility] [place] [facility] [address] [id number] [place] [address] Oct, [facility] [place] [facility] [address] [id number] [place] [address] Oct, [facility] [place] [facility] [address] [id number] [place] [address] Oct, [facility] [place] [facility] [address] [id number] [place] [address] Sep, [facility] [place] [facility] [address] [id number] [place] [address] Sep, [facility] [place] [facility] [address] [id number] [place] [address] Sep, [facility] [place] [facility] [address] [id number] [place] [address] Sep, [facility] [place] [facility] [address] [id number] [place] [address] Sep, [facility] [place] [facility] [address] [id number] [place] [address] Sep, [facility] [place] [facility] [address] [id number] [place] [address] Sep, [facility] [place] [facility] [address] [id number] [place] [address] Sep, [facility] [place] [facility] [address] [id number] [place] [address] August, [facility] [place] [facility] [address] [id number] [place] [address] August, [facility] [place] [facility] [address] [id number] [place] [address] Jul, [facility] [place] [facility] [address] [id number] [place] [address] Jul, [facility] [place] [facility] [address] [id number] [place] [address] Jul, [facility] [place] [facility] [address] [id number] [place] [address] Jul, 2013 [facility] [place] [facility] [address] [id number] [place] [address] Jul, [facility] [place] [facility] [address] [id number] [place] [address] Jul, [facility] [place] [facility] [address] [id number] [place] [address] Jul, [facility] [place] [facility] [address] [id number] [place] [address] Jul, [facility] [place] [facility] [address] [id number] [place] [address] Jul, [facility] [place] [facility] [address] [id number] [place] [address] Jul, [facility] [place] [facility] [address] [id number] [place] [address] 27 Jun, 2013 [facility] [place] [facility] [address] [id number] [place] [address] 27 Jun, 2013 [facility] [place] [facility] [address] [id number] [place] [address] 18 Jun, 2013 [facility] [place] [facility] [address] [id number] [place] [address] 18 Jun, 2013 [facility] [place] [facility] [address] [id number] [place] [address] 17 Jun, 2013 [facility] [place] [facility] [address] [id number] [place] [address] 17 Jun, 2013 [facility] [place] [facility] [address] [id number] [place] [address] 17 Jun, 2013 [facility] [place] [facility] [address] [id number] [place] [address] 17 Jun, 2013 [facility] [place] [facility] [address] [id number] [place] [address] 97[address] 14 Jun, 2013 [facility] [place] [facility] [address] [id number] [place] [address]40 14 Jun, 2013 [facility] [place] [facility] [address] [id number] [place] [address] 2817 07 Jun, 2013 [facility] [place] [facility] [address] [id number] [place] [address] Jun, [facility] [place] [facility] [address] [id number] [place] [address] Jun, [facility] [place] [facility] [address] [id number] [place] [address] Jun, [facility] [place] [facility] [address] [id number] [place] [address]- [address]92 Jun, [facility] [place] [facility] [address] [id number] [place] [address] 4964 Jun, [facility] [place] [facility] [address] [id number] [place] [address] May, [facility] [place] [facility] [address] [id number] [place] [address] 1384 May, [facility] [place] [facility] [address] [id number] [place] [address] 1619 May, [facility] [place] [facility] [address] [id number] [place] [address]- 2505 May, [facility] [place] [facility] [address] [id number] [place] [address] Mar, [facility] [place] [facility] [address] [id number] [place] [address]94 Mar, [facility] [place] [facility] [address] [id number] [place] [address] 5533 Mar, [facility] [place] [facility] [address] [id number] [place] [address] 1893 Mar, [facility] [place] [facility] [address] [id number] [place] [address] 2547 Mar, [facility] [address] [id number] [place] [address] Mar, [facility] [place] [facility] [address] [id number] [place] [address] 2542 Mar, [facility] [address] [id number] [place] [address]487 Mar, [facility] [place] [facility] [address] [id number] [place] [address] 9[address] Jan, [facility] [address] [id number] [place] [address] 7662 Jan, [facility] [place] [facility] [address] [id number] [place] [address]- 6165 Jan, [facility] [address] [id number] [place] [address]- 0468 Jan, [facility] [address] [id number] [place] [address] Jan, [facility] [place] [facility] [address] [id number] [place] [address]- 164[address] Jan, [facility] [address] [id number] [place] [address]- 0465 Jan, [facility] [place] [facility] [address] [id number] [place] [address]- 2541 Dec, [facility] [place] [facility] [address] [id number] [place] [address]46 Nov, [facility] [place] [facility] [address] [id number] [place] [address]45 Oct, [facility] [place] [facility] [address] [id number] [place] [address]- 2546 Oct, [facility] [place] [facility] [address] [id number] [place] [address] Sep, [facility] [place] [facility] [address] [id number] [place] [address]- 7[address] Sep, [facility] [place] [facility] [address] [id number] [place] [address]- 69[address] Sep, [facility] [place] [facility] [address] [id number] [place] [address]- [address] August, [facility] [place] [facility] [address] [id number] [place] [address]- 0151 Jun, [facility] [address] [id number] [place] [address]- 2241 Jun, [facility] [place] [facility] [address] [id number] [place] [address]- 4435 15 Jun, 2012 [facility] [place] [facility] [address] [id number] [place] [address]- 9482 Jun, [facility] [place] [facility] [address] [id number] [place] [address] 7[address] Jun, [facility] [place] [facility] [address] [id number] [place] [address]- 9744 Jun, [facility] [place] [facility] [address] [id number] [place] [address]- 9504 Jun, [facility] [place] [facility] [address] [id number] [place] [address]- [address] May, [facility] [place] [facility] [address] [id number] [place] [address] 6963 May, [facility] [place] [facility] [address] [id number] [place] [address]- 2986 May, [facility] [place] [facility] [address] [id number] [place] [address]- 4771 May, [facility] [place] [facility] [address] [id number] [place] [address]- 4469 May, [facility] [place] [facility] [address] [id number] [place] [address]- 0993 08 May, 2012 [facility] [address] [id number] [place] [address]- 3311 May, [facility] [place] [facility] [address] [id number] [place] [address]- 7701 Mar, [facility] [address] [id number] [place] [address]- 6738 Mar, [facility] [place] [facility] [address] [id number] [place] [address]- 4694 Mar, [facility] [address] [id number] [place] [address]- 2510 Mar, [facility] [place] [facility] [address] [id number] [place] [address]- 6628 Mar, [facility] [address] [id number] [place] [address]- 6047 Mar, [facility] [place] [facility] [address] [id number] [place] [address]- 6406 Mar, [facility] [place] [facility] [address] [id number] [place] [address]- 5115 Mar, [facility] [place] [facility] [address] [id number] [place] [address]- 6005 Mar, [facility] [place] [facility] [address] [id number] [place] [address]- 4851 Mar, [facility] [place] [facility] [address] [id number] [place] [address]- 5264 Mar, [facility] [place] [facility] [address] [id number] [place] [address]- 8258 Mar, [facility] [place] [facility] [address] [id number] [place] [address]- 5930 Mar, [facility] [place] [facility] [address] [id number] [place] [address]- 7745 Mar, [facility] [place] [facility] [address] [id number] [place] [address]- 9050 Mar, [facility] [place] [facility] [address] [id number] [place] [address]- 3979 Mar, [facility] [place] [facility] [address] [id number] [place] [address]- 2387 Mar, [facility] [place] [facility] [address] [id number] [place] [address], [place] [address]- 7251 Mar, [facility] [place] [facility] [address] [id number] [place] [address]- 0839 Mar, [facility] [place] [facility] [address] [id number] [place] [address]- 9283 Jan, [facility] [place] [facility] [address] [id number] [place] [address]- 0087 Jan, [facility] [place] [facility] [address] [id number] [place] [address]- 8983 Jan, [facility] [place] [facility] [address] [id number] [place] [address]- 1678 Jan, [facility] [place] [facility] [address] [id number] [place] [address]- 3085 Dec, [facility] [place] [facility] [address] [id number] [place] [address]- 7815 Dec, [facility] [place] [facility] [address] [id number] [place] [address]- 3038 Dec, [facility] [place] [facility] [address] [id number] [place] [address]- 7663 Nov, [facility] [place] [facility] [address] [id number] [place] [address]- 8148 Nov, [facility] [place] [facility] [address] [id number] [place] [address]- 0205 Oct, [facility] [place] [facility] [address] [id number] [place] [address]- 112[address] Oct, [facility] [address] [facility] [id number] [place] [address]- 6978 Oct, [facility] [address] [id number] [place] [address]- 5399 Oct, [facility] [address] [facility] [id number] [place] [address]- 1182 Oct, [facility] [address] [facility] [id number] [place] [address]- 0956 Oct, IMMUNIZATIONS No Known Immunizations SOCIAL HISTORY [...]
--- OUTSIDE RECORDS SUMMARY | 2018-05-15 06:25 | XMS REPORT ---
Author Author RAY NEVAREZ [facility] Address [address] [place] [address] Care Team Providers Care Shank Scourer Name Role Phone RAY NEVAREZ Unavailable PROBLEMS Type Condition ICD9-CM Code KCU02-QP Code Onset Dates Condition Status SNOMED Code Problem Stress incontinence of urine N39.3 Active 77911389 Problem Neuropathy G62.9 Active 194909960 Problem Major depressive disorder, single episode, unspecified F32.9 Active 06966720 Problem Morbid (severe) obesity due to excess calories E66.01 Active 991638746 Problem Body mass index (BMI) of 45.0-49.9 in adult Z68.42 Active 490606757 Problem 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 Active 211471442 Problem Schizoaffective disorder, bipolar type F25.0 Active 27552130 Problem Primary osteoarthritis of left knee M17.12 Active 802792086 Problem Post-menopausal bleeding N95.0 Active 44483776 Problem Depression F32.9 Active 05611127 Problem Bipolar 1 disorder F31.9 Active 778578193 Problem Edema R60.9 Active 423419063 Problem GERD (gastroesophageal reflux disease) K21.9 Active 409998623 Problem Obesity E66.9 Active 038149530 Problem Joint pain of lower extremity M25.50 Active 25920692 Problem Environmental allergies Z91.09 Active 064724212 ALLERGIES No Information ENCOUNTERS Encounter Location Date Diagnosis [facility] [address], [place] [address] Oct, [facility] [id number] [place] [address] 84022- 0808 August, [facility] [address], [place] [address] Jul, [facility] [id number] [place] [address] 66402- 0655 Jul, Primary osteoarthritis of left knee M17.12 [facility] [id number] [place] [address] 82603- 2401 Jul, Schizoaffective disorder, bipolar type F25.0 and 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 [facility] [id number] [place] [address] 21481- 1968 Jul, Prediabetes R73.03 ; Primary osteoarthritis of left knee M17.12 ; GERD (gastroesophageal reflux disease) K21.9 ; Bipolar 1 disorder F31.9 ; Depression F32.9 ; Environmental allergies Z91.09 ; Neuropathy G62.9 ; Edema R60.9 ; Body mass index (BMI) of 45.0-49.9 in adult Z68.42 and Morbid ( severe) obesity due to excess calories E66.01 [facility] [id number] [place] [address] 68325- 4158 Jul, [facility] [id number] [place] [address] 83945- 1736 Jun, [facility] [id number] [place] [address] 27454- 7195 Jun, [facility] [id number] [place] [address] 15829- 3447 Jun, Wound of right breast, initial encounter S21.001A and Prediabetes R73.03 [facility] [id number] [place] [address] 90102- 2934 Jun, [facility] [id number] [place] [address] 60080- 2552 May, GERD (gastroesophageal reflux disease) K21.9 [facility] [id number] [place] [address] 43389- 5965 May, Primary osteoarthritis of left knee M17.12 [facility] [id number] [place] [address] 47328- 6217 May, Schizoaffective disorder, bipolar type F25.0 and 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 [facility] [id number] [place] [address] 99325- 8894 04 May, 2017 Left medial knee pain M25.562 ; GERD (gastroesophageal reflux disease) K21.9 ; Depression F32.9 ; Neuropathy G62.9 ; Obesity E66.9 ; Prediabetes R73.03 and Edema R60.9 [facility] [id number] [place] [address] 19176- 3579 14 Mar, 2017 [facility] [id number] [place] [address] 70736- 0504 08 Mar, 2017 [facility] [id number] [place] [address] 68428- 2761 05 Mar, 2017 Post-menopausal bleeding N95.0 and BMI 50.0-59.9, adult Z68.43 [facility] [id number] [place] [address] 63280- 0730 Mar, [facility] [id number] [place] [address] 18500- 6838 27 Mar, 2017 Schizoaffective disorder, bipolar type F25.0 and 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 [facility] [place] [address] [place] [address] 17586- 8279 27 Mar, 2017 [facility] [id number] [place] [address] 14288- 5579 16 Mar, 2017 [facility] [id number] [place] [address] 28012- 5319 10 Mar, 2017 Post-menopausal bleeding N95.0 ; Screening breast examination Z12.31 ; Screen for STD (sexually transmitted disease) Z11.3 ; Obesity E66.9 ; Family history of ovarian cancer Z80.41 and Family history of cervical cancer Z80.49 [facility] [id number] [place] [address] 80186- 1174 03 Mar, 2017 [facility] [id number] [address] 1873 Mar, [facility] [id number] [place] [address] 02919- 6776 Jan, Schizoaffective disorder, bipolar type F25.0 and 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 [facility] [id number] [place] [address], [place] [address]- 56[address] Jan, Schizoaffective disorder, bipolar type F25.0 [facility] [id number] [place] [address] 55564- 4471 Jan, [facility] [id number] [place] [address] 99685- 9238 Jan, Prediabetes R73.03 and Obesity E66.9 [facility] [id number] [place] [address] 45567- 0085 Jan, Encounter for immunization Z23 [facility] [id number] [place] [address] 60526- 5121 Jan, [facility] [id number] [place] [address] 87528- 6032 Dec, [facility] [id number] [address] 7567 Dec, [facility] [id number] [place] [address] 77569- 4503 Nov, Neuropathy G62.9 [facility] [id number] [address] 8456 Nov, [facility] [id number] [place] [address] 42823- 4318 Nov, Schizoaffective disorder, bipolar type F25.0 [facility] [id number] [address]- 4761 Nov, Other penitentiary (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 Z79.899 and Schizoaffective disorder, bipolar type F25.0 [facility] [id number] [place] [address] 21454- 1537 Oct, Schizoaffective disorder, bipolar type F25.0 ; Other penitentiary (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 Z79.899 and 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 [facility] [id number] [place] [address] [id number] Oct, Dental caries K02.9 [facility] [address] 34105- 5207 Sep, Neuropathy G62.9 [facility] [address] 89849- 1648 Sep, [facility] [address] 27747- 0572 Sep, Neuropathy G62.9 [facility] [address] 04658- 7160 Jul, Schizoaffective disorder, depressive type F25.1 [facility] [id number] [place] [address] 37287- 7844 Jul, GERD (gastroesophageal reflux disease) K21.9 ; Joint pain of lower extremity M25.50 ; Environmental allergies Z91.09 ; Stress incontinence of urine N39.3 ; Neuropathy G62.9 ; Edema R60.9 and Acute pain of left knee M25.562 [facility] [id number] [place] [address] 43417- 4068 Jun, [facility] [id number] [place] [address] [id number] Jun, Dental examination Z01.20 [facility] [address] 83779- 8331 Jun, [facility] [id number] [place] [address] 96116- 3203 May, [facility] [address] 32378- 5871 May, Bipolar 1 disorder F31.9 ; Joint pain of lower extremity M25.50 ; Environmental allergies Z91.09 ; Stress incontinence of urine N39.3 ; Major depressive disorder, single episode, unspecified F32.9 ; Dizzy R42 ; Schizoaffective disorder, unspecified F25.9 ; Neuropathy G62.9 ; Localized edema R60.0 and GERD (gastroesophageal reflux disease) K21.9 [facility] [address] 98063- 3588 May, Schizoaffective disorder, depressive type F25.[address] 634604- 5574 May, Environmental allergies Z91.09 and Major depressive disorder , single episode, unspecified F32.9 [place] [address] 79488- 5747 Mar, Dental caries K02.9 [place] [address] 53792- 6234 Mar, Dental caries on smooth surface penetrating into pulp K02.63 [facility] [place] [address] 98447 -5331 Mar, Peripheral edema R60.9 and Dry skin L85.[address] 07642- 7533 Mar, [facility] [address] 76779- 8113 Mar, Major depressive disorder, single episode, unspecified F32.9 [place] [address] 43359- 4688 Mar, Dental caries K02.9 [facility] [address] 69869- 0014 Mar, Diabetes mellitus with complication E11.8 ; Urinary frequency R35.0 ; Stress incontinence of urine N39.3 ; Joint pain of lower extremity M25.50 ; Obesity E66.9 ; Environmental allergies Z91.09 ; Depression F32.9 ; Schizoaffective disorder, unspecified F25.9 ; Vaginal discharge N89.8 and Vaginal candidiasis B37.3 [facility] [id number] [place] [address] 50331- 6137 Jan, Schizoaffective disorder, unspecified F25.9 [place] [address] 32251- 7858 Jan, [facility] [address] 71328- 6180 30 Dec, 2015 [place] [address] 71123- 4488 19 Dec, 2015 Dental caries K02.9 [facility] [address] 26623- 1144 14 Dec, 2015 Obesity E66.9 ; Edema R60.9 ; Depression F32.9 ; Bipolar 1 disorder F31.9 ; 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 ; Environmental allergies Z91.09 ; Shortness of breath R06.02 ; Gastroesophageal reflux disease with esophagitis K21.0 ; Other chronic pain G89.29 ; Pain in right knee M25.561 ; Pain in left knee M25.562 and Encounter for immunization Z23 [facility] [id number] [place] [address] 61192- 0248 Nov, Dental caries K02.9 [facility] [id number] [place] [address] 05066- 1828 Oct, Schizoaffective disorder, unspecified F25.9 [facility] [address] 95672- 8679 Oct, Dental examination Z01.20 [facility] [id number] [place] [address] 00141- 2203 Sep, Dental examination Z01.20 and Dental caries K02.9 [facility] [id number] [place] [address] 67794- 7949 13 Sep, 2015 [facility] [id number] [place] [address] 69340- 7427 09 Sep, 2015 [facility] [id number] [place] [address] 32670- 6257 Sep, [facility] [id number] [place] [address] 35696- 1324 Sep, Schizoaffective disorder, unspecified F25.9 [facility] [id number] [place] [address] 56413- 7116 August, Bipolar disorder, unspecified F31.9 [facility] [id number] [place] [address] 68988- 5764 Jul, Edema R60.9 and Obesity E66.9 [facility] [id number] [place] [address] 77111- 0152 Jul, Edema R60.9 [facility] [id number] [place] [address] 65637- 6391 Jul, Edema R60.9 [facility] [id number] [place] [address] 60057 -7644 Jul, Edema R60.9 [facility] [id number] [place] [address] 89056- 1097 Jul, [facility] [id number] [place] [address] 25730- 8576 Jul, [facility] [id number] [place] [address] 77258- 2910 24 Jun, 2015 Environmental allergies V15.09 and Cough R05 [facility] [id number] [place] [address] 14524- 5005 17 Jun, 2015 Environmental allergies V15.09 ; Edema R60.9 and Cough R05 [facility] [id number] [place] [address] 89498 -0105 12 Jun, 2015 Bronchospasm J98.01 [place] [address] 18021- 1579 Jun, [place] [address] 61071- 7929 09 Jun, 2015 [place] [address] 97389- 7735 08 Jun, 2015 Environmental allergies V15.09 ; Bipolar 1 disorder F31.9 ; GERD (gastroesophageal reflux disease) K21.9 ; Depression F32.9 ; Joint pain of lower extremity M25.50 ; COPD (chronic obstructive pulmonary disease) J44.9 and Screening for diabetes mellitus Z13.1 [place] [address] 89229- 2487 16 Jun, 2015 [place] [address] 85860- 1651 May, [place] [address] 82792- 2682 14 May, 2015 Schizoaffective disorder, unspecified F25.9 and Bipolar 1 disorder F31.9 [facility] [place] [id number] [place] [address] 69120- 9951 May, [facility] [id number] [place] [address] 99650- 2758 May, URI (upper respiratory infection) J06.9 ; Environmental allergies V15.09 and Cough R05 [facility] [id number] [place] [address] 46198- 8910 18 Mar, 2015 [place] [address] 06101- 9638 15 Mar, 2015 Vaginal discharge N89.8 [place] [id number] [place] [address] 79202- 3649 14 Mar, 2015 Schizoaffective disorder, unspecified F25.9 ; Major depressive disorder, single episode, unspecified F32.9 and Bipolar 1 disorder F31.9 [facility] [id number] [place] [address] 70749- 2980 Mar, [place] [address] 61814- 7922 Mar, Bipolar 1 disorder F31.9 [place] [address] 96313- 4020 Jan, [place] [address] 09041- 3329 Jan, Allergic rhinitis J30.9 and Cough R05 [address] 35006- 7824 Jan, 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 ; Bipolar 1 disorder F31.9 ; GERD ( gastroesophageal reflux disease) K21.9 ; Depression F32.9 and Joint pain of lower extremity M25.50 [facility] [id number] [place] [address] 84072- 0025 Dec, Encounter for immunization Z23 [address] 20906- 9344 Dec, Schizoaffective disorder, unspecified 295.70 ; Pain in joint , lower leg 719.46 ; Esophageal reflux 530.81 ; Bipolar 1 disorder 296.7 ; Depression 311 ; GERD (gastroesophageal reflux disease) 530.81 and Environmental allergies V15.09 [facility] [id number] [place] [address] [id number] Nov, Dental examination V72.[address] 99844- 4827 Nov, Acute bronchitis 466.0 [place] [address] 01346- 6152 Nov, Schizoaffective disorder, unspecified 295.70 and Bipolar disorder, unspecified 296.80 [facility] [address] [id number] Sep, Dental examination V72.2 [facility] [id number] [place] [address] [id number] August, Dental examination V72.2 [facility] [id number] [place] [address] 29833 2546 August, Schizoaffective disorder, unspecified 295.70 [facility] [id number] [place] [address] 60076- 6166 August, [facility] [id number] [place] [address] 17062- 0756 August, Vomiting 787.03 [facility] [id number] [place] [address] 65249- 6396 August, Vomiting and diarrhea 787.03 and High risk medication use V58.69 [facility] [id number] [place] [address] 77151- 5496 Jul, [facility] [id number] [place] [address] 79179- 5762 Jul, [facility] [id number] [place] [address] 14202- 7196 Jul, [facility] [address] [place] [address] 27398- 4246 Jun, [facility] [id number] [place] [address] 26374- 8026 Jun, [facility] [id number] [place] [address] 97959- 4646 Jun, [facility] [id number] [place] [address] 45203- 1866 Jun, [facility] [address] [place] [address] 33042- 7656 Jun, [facility] [id number] [place] [address] 17198- 9727 Jun, 2014 [facility] [place] [facility] [address] [id number] [place] [address]- 5590 Jun, 2014 [facility] [place] [facility] [address] [id number] [place] [address]- 0226 Jun, [facility] [place] [facility] [address] [facility] [id number] [place] [address]- 4606 Jun, [facility] [place] [facility] [address] [id number] [place] [address]- 1933 Mar, [facility] [place] [facility] [address] [id number] [place] [address]- 1020 Mar, [facility] [place] [facility] [address] [id number] [place] [address]- 4659 Mar, [facility] [place] [facility] [address] [id number] [place] [address]- 0276 Mar, [facility] [place] [facility] [address] [id number] [place] [address]- 9062 Mar, [facility] [place] [facility] [address] [id number] [place] [address]- 4005 Mar, [facility] [place] [facility] [address] [facility] [id number] [place] [address]- 8307 Mar, [facility] [place] [facility] [address] [id number] [place] [address]- 0822 Mar, [facility] [place] [facility] [address] [id number] [address]- 3054 Mar, [facility] [place] [facility] [address] [id number] [place] [address]- 9058 Mar, [facility] [place] [facility] [address] [id number] [place] 0646 Jan, [facility] [place] [facility] [address] [facility] [id number] [place] [address]- 4583 Jan, [facility] [place] [facility] [address] [id number] [place] [address]- 6453 31 Jan, 2014 [facility] [place] [facility] [address] [id number] [place] [address]- 5050 31 Jan, 2014 [facility] [place] [facility] [address] [id number] [place] [address]- 9128 14 Jan, 2014 [facility] [place] [facility] [address] [id number] [place] [address]- 7761 14 Jan, 2014 [facility] [place] [facility] [address] [id number] [place] [address]- 6951 Jan, [facility] [place] [facility] [address] [id number] [place] [address]- 5940 Jan, [facility] [place] [facility] [address] [id number] [place] [address]- 5273 19 Dec, 2013 [facility] [place] [facility] [address] [id number] [place] [address]- 0185 19 Dec, 2013 [facility] [place] [facility] [address] [id number] [place] [address]- 9123 15 Dec, 2013 [facility] [place] [facility] [address] [id number] [place] [address]- 5114 15 Dec, 2013 [facility] [place] [facility] [address] [id number] [place] [address]- 6289 15 Dec, 2013 [facility] [place] [facility] [address] [id number] [place] [address]- 2549 15 Dec, 2013 [facility] [place] [facility] [address] [id number] [place] [address]- 2549 12 Dec, 2013 [facility] [place] [facility] [address] [id number] [place] [address]- 2544 12 Dec, 2013 [facility] [place] [facility] [address] [id number] [place] [address]- 1450 03 Dec, 2013 [facility] [place] [facility] [address] [id number] [place] [address]- 2520 Dec, [facility] [place] [facility] [address] [id number] [place] [address] Nov, [facility] [place] [facility] [address] [id number] [place] [address] Nov, [facility] [place] [facility] [address] [id number] [place] [address] Nov, [facility] [place] [facility] [address] [id number] [place] [address] Nov, [facility] [place] [facility] [address] [id number] [place] [address] Oct, [facility] [place] [facility] [address] [id number] [place] [address] Oct, [facility] [place] [facility] [address] [id number] [place] [address] Oct, [facility] [place] [facility] [address] [id number] [place] [address] Oct, [facility] [place] [facility] [address] [id number] [place] [address] Sep, [facility] [place] [facility] [address] [id number] [place] [address] Sep, [facility] [place] [facility] [address] [id number] [place] [address] Sep, [facility] [place] [facility] [address] [id number] [place] [address] Sep, [facility] [place] [facility] [address] [id number] [place] [address] Sep, [facility] [place] [facility] [address] [id number] [place] [address]- [address] Sep, [facility] [place] [facility] [address] [id number] [place] [address] Sep, [facility] [place] [facility] [address] [id number] [place] [address] Sep, [facility] [place] [facility] [address] [id number] [place] [address] August, [facility] [place] [facility] [address] [id number] [place] [address] August, [facility] [place] [facility] [address] [id number] [place] [address] Jul, [facility] [place] [facility] [address] [id number] [place] [address] Jul, [facility] [place] [facility] [address] [id number] [place] [address]- [address] Jul, [facility] [place] [facility] [address] [id number] [place] [address] Jul, [facility] [place] [facility] [address] [id number] [place] [address]- [address] Jul, [facility] [place] [facility] [address] [id number] [place] [address] Jul, [facility] [place] [facility] [address] [id number] [place] [address] Jul, [facility] [place] [facility] [address] [id number] [place] [address] Jul, [facility] [place] [facility] [address] [id number] [place] [address] Jul, [facility] [place] [facility] [address] [id number] [place] [address] Jul, [facility] [place] [facility] [address] [id number] [place] [address] Jun, [facility] [place] [facility] [address] [id number] [place] [address]- [address] Jun, [facility] [place] [facility] [address] [id number] [place] [address] Jun, [facility] [place] [facility] [address] [id number] [place] [address] 18 Jun, 2013 [facility] [place] [facility] [address] [id number] [place] [address] 17 Jun, 2013 [facility] [place] [facility] [address] [id number] [place] [address] 17 Jun, 2013 [facility] [place] [facility] [address] [id number] [place] [address] 17 Jun, 2013 [facility] [place] [facility] [address] [id number] [place] [address]- [address] 17 Jun, 2013 [facility] [place] [facility] [address] [id number] [place] [address] 14 Jun, 2013 [facility] [place] [facility] [address] [address] [id number] [place] [address] 14 Jun, 2013 [facility] [place] [facility] [address] [id number] [place] [address] Jun, [facility] [place] [facility] [address] [id number] [place] [address] Jun, [facility] [place] [facility] [address] [id number] [place] [address] Jun, [facility] [place] [facility] [address] [id number] [place] [address] Jun, [facility] [place] [facility] [address] [id number] [place] [address] Jun, [facility] [place] [facility] [address] [id number] [place] [address] Jun, [facility] [place] [facility] [address] [id number] [place] [address] May, [facility] [place] [facility] [address] [id number] [place] [address] May, [facility] [place] [facility] [address] [id number], [place] [address] May, [facility] [address] [id number] [place] [address] May, [facility] [place] [facility] [address] [id number], [place] [address] Mar, [facility] [place] [facility] [address] [id number] [place] [address] Mar, [facility] [place] [facility] [address] [id number] [place] [address] Mar, [facility] [place] [facility] [address] [id number] [place] [address] Mar, [facility] [place] [facility] [address] [id number] [place] [address] Mar, [facility] [address] [id number], [place] [address] Mar, [facility] [place] [facility] [address] [id number] [place] [address] Mar, [facility] [place] [facility] [address] [id number], [place] [address] Mar, [facility] [place] [facility] [address] [id number], [place] [address] Jan, [facility] [place] [facility] [address] [id number], [place] [address] Jan, [facility] [place] [facility] [address] [id number], [place] [address] Jan, [facility] [place] [facility] [address] [id number][place] [address] Jan, [facility] [place] [facility] [address] [id number], [place] [address] Jan, [facility] [place] [facility] [address] [id number][place] [address] Jan, [facility] [place] [facility] [address] [id number] [place] [address] 1989 Jan, [facility] [address] [id number] [place] [address] Dec, [facility] [place] [facility] [address] [id number] [place] [address] Nov, [facility] [place] [facility] [address] [id number] [place] [address] Oct, [facility] [place] [facility] [address] [id number] [place] [address] Oct, [facility] [place] [facility] [address] [id number] [place] [address] Sep, [facility] [place] [facility] [address] [id number] [place] [address] Sep, [facility] [place] [facility] [address] [id number] [place] [address] Sep, [facility] [place] [facility] [address] [id number] [place] [address] August, [facility] [place] [facility] [address] [id number] [place] [address] Jun, [facility] [place] [facility] [address] [id number] [place] [address] Jun, [facility] [place] [facility] [address] [id number] [place] [address] Jun, [facility] [place] [facility] [address] [id number] [place] [address] Jun, [facility] [place] [facility] [address] [id number] [place] [address] Jun, [facility] [place] [facility] [address] [id number] [place] [address] Jun, [facility] [place] [facility] [address] [id number], [place] [address] 07 Jun, 2012 [facility] [address] [id number] [place] [address] May, [facility] [address] [id number] [place] [address] May, [facility] [address] [id number] [place] [address] May, [facility] [address] [id number] [place] [address]697 May, [facility] [address] [id number] [place] [address] May, [facility] [address] [id number] [place] [address] May, [facility] [address] [id number] [place] [address] 62[address] May, [facility] [address] [id number] [place] [address] Mar, [facility] [address] [id number] [place] [address] Mar, [facility] [address] [id number] [place] [address]80 Mar, [facility] [address] [id number], [place] [address] Mar, [facility] [place] [facility] [address] [id number], [place] [address] Mar, [facility] [place] [facility] [address] [id number] [place] [address] Mar, [facility] [place] [facility] [address] [id number] [place] [address] 2003 Mar, [facility] [place] [facility] [address] [id number] [place] [address] Mar, [facility] [place] [facility] [address] [id number] [place] [address] 35[address] Mar, [facility] [place] [facility] [address] [id number] [place] [address] Mar, [facility] [place] [facility] [address] [id number] [place] [address] 7383 Mar, [facility] [place] [facility] [address] [id number] [place] [address] 59[address] Mar, [facility] [place] [facility] [address] [id number] [place] [address]99 Mar, [facility] [place] [facility] [address] [id number] [place] [address], [place] [address] Mar, [facility] [place] [facility] [address] [id number] [place] [address] 4646 Mar, [facility] [place] [facility] [address] [id number] [place] [address]- 66[address] Mar, [facility] [place] [facility] [address] [id number] [place] [address]- 9197 Mar, [facility] [place] [facility] [address] [id number] [place] [address] Mar, [facility] [place] [facility] [address] [facility] [id number] [place] [address]- 408[address] Mar, [facility] [place] [facility] [address] [id number] [place] [address]- 4660 Jan, [facility] [place] [facility] [address] [id number] [place] [address] 8578 Jan, [facility] [place] [facility] [address] [id number] [place] [address]- 3591 Jan, [facility] [place] [facility] [address] [id number] [place] [address]- 9823 Jan, [facility] [place] [facility] [address] [id number] [place] [address]237 Dec, [facility] [address] [id number], [place] [address] Dec, [facility] [id number], [place] [address] Dec, [facility] [id number], [place] [address] 9547 Nov, [facility] [id number], [place] [address] Nov, [facility] [id number], [place] [address]169 Oct, [facility] [id number], [place] [address] Oct, [facility] [id number], [place] [address] Oct, [facility] [id number], [place] [address] Oct, [facility] [address] [id number], [place] [address] Oct, [facility] [address] [id number], [place] [address] Oct, IMMUNIZATIONS No Known Immunizations SOCIAL HISTORY Never Assessed REASON FOR VISIT requesting return call PLAN OF CARE VITAL SIGNS MEDICATIONS Unknown Medications RESULTS No Results PROCEDURES No Known procedures INSTRUCTIONS MEDICATIONS ADMINISTERED No Known Medications MEDICAL (GENERAL) HISTORY Type Description Date Medical History bipolar disorder Medical History depression Medical History acid reflux Medical History hx of meth use til 1998 Medical History DX sleep apnea 06/2016 Medical History History of methylenedioxymethamphetamine (MDMA) use Medical History History of methylenedioxymethamphetamine (MDMA) use Surgical History right knee arthroscopy x2 2004, 2006 Hospitalization History surgery Hospitalization History hospitalized psychiatrically x4, last incident prior to 2006
--- OUTSIDE RECORDS SUMMARY | 2018-05-15 06:25 | XMS REPORT ---
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 Active 976665650 Problem Major depressive disorder, single episode, unspecified F32.9 Active 65696105 Problem Stress incontinence of urine N39.3 Active 97153726 Problem Acute pain of left knee M25.562 Active 66212803 Problem Neuropathy G62.9 Active 988088630 Problem Joint pain of lower extremity M25.50 Active 69836502 Problem 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 611168950 Problem PVD (peripheral vascular disease) I73.9 Active 978905469 Problem GERD (gastroesophageal reflux disease) K21.9 Active 043739101 Problem Edema R60.9 Active 203506825 Problem Bipolar 1 disorder F31.9 Active 076833371 Problem Cough R05 Active 97085076 Problem Depression F32.9 Active 92445101 Problem Obesity E66.9 Active 091008858 ALLERGIES Substance Reaction Event Type Date Status Sulfamethoxazole-Trimethoprim Unknown Drug Allergy Mar, Active Penicillin V Potassium rash Drug Allergy Mar, Active SOCIAL HISTORY No smoking Hx information available PLAN OF CARE Activity Details Follow Up prn Reason:te VITAL SIGNS MEDICATIONS Medication Instructions Dosage Frequency Start Date End Date Duration Status Meloxicam 7.5 MG Orally 2 times a day 1 tablet 12h 30 Active Risperdal 1 MG TAKE ONE TABLET BY MOUTH TWICE DAILY 30 Active Lamotrigine 100 MG Orally Once a day 1 tablet 24h 30 Active Albuterol Sulfate HFA 108 (90 Base) MCG/ACT Inhalation every 4 hrs 2 puffs as needed 4h May, Active Hydrochlorothiazide 50 mg Orally Once a day 1 tablet 24h 30 Active Protonix 20 MG Orally Once a day 1 tablet 24h 30 Active Flonase 50 MCG/ACT Nasally Once a day 1 spray in each nostril 24h 07 Sep, 2015 Active Citalopram Hydrobromide 40 mg Orally Once a day 1 tablet 24h 30 Active ZyrTEC 10 mg orally Once a day 1 tablet by Oral route 1 time per day 24h Active Albuterol Sulfate 0.63 MG/3ML Inhalation every 4 hrs 3 ml as needed 4h Jun, Active RESULTS No Results PROCEDURES Procedure Date Ordered Related Diagnosis Body Site EXTRAC ERUPTED TOOTH/EXPOSED ROOT Apr 27, 2016 EXTRAC ERUPTED TOOTH/EXPOSED ROOT Apr 27, 2016 EXTRAC ERUPTED TOOTH/EXPOSED ROOT Apr 27, 2016 EXTRAC ERUPTED TOOTH/EXPOSED ROOT Apr 27, 2016 EXTRAC ERUPTED TOOTH/EXPOSED ROOT Apr 27, 2016 IMMUNIZATIONS No Known Immunizations
--- OUTSIDE RECORDS SUMMARY | 2018-05-15 06:25 | XMS REPORT ---
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 Active 755808180 Problem Major depressive disorder, single episode, unspecified F32.9 Active 61036521 Problem Stress incontinence of urine N39.3 Active 29706583 Problem Acute pain of left knee M25.562 Active 77046495 Problem Neuropathy G62.9 Active 520939728 Problem Joint pain of lower extremity M25.50 Active 07108592 Problem 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 064904760 Problem PVD (peripheral vascular disease) I73.9 Active 495492094 Problem GERD (gastroesophageal reflux disease) K21.9 Active 194770403 Problem Edema R60.9 Active 512538306 Problem Bipolar 1 disorder F31.9 Active 805300711 Problem Cough R05 Active 36065933 Problem Depression F32.9 Active 53543616 Problem Obesity E66.9 Active 598420898 ALLERGIES Substance Reaction Event Type Date Status Sulfamethoxazole-Trimethoprim Unknown Drug Allergy Mar, Active Penicillin V Potassium rash Drug Allergy Mar, Active SOCIAL HISTORY No smoking Hx information available PLAN OF CARE Activity Details Follow Up extraction UL( 1wk ) Reason: VITAL SIGNS MEDICATIONS Medication Instructions Dosage Frequency Start Date End Date Duration Status Albuterol Sulfate HFA 108 (90 Base) MCG/ACT Inhalation every 4 hrs 2 puffs as needed 4h May, Active Albuterol Sulfate 0.63 MG/3ML Inhalation every 4 hrs 3 ml as needed 4h Jun, Active Flonase 50 MCG/ACT Nasally Once a day 1 spray in each nostril 24h 07 Sep, 2015 Active Risperdal 1 MG TAKE ONE TABLET BY MOUTH TWICE DAILY 30 Active Protonix 20 MG Orally Once a day 1 tablet 24h 30 Active ZyrTEC 10 mg orally Once a day 1 tablet by Oral route 1 time per day 24h Active Hydrochlorothiazide 50 mg Orally Once a day 1 tablet 24h 30 Active Lamotrigine 100 MG Orally Once a day 1 tablet 24h 30 Active Meloxicam 7.5 MG Orally 2 times a day 1 tablet 12h 30 Active Citalopram Hydrobromide 40 mg Orally Once a day 1 tablet 24h 30 Active RESULTS No Results PROCEDURES Procedure Date Ordered Related Diagnosis Body Site EXTRAC ERUPTED TOOTH/EXPOSED ROOT Apr 20, 2016 EXTRAC ERUPTED TOOTH/EXPOSED ROOT Apr 20, 2016 EXTRAC ERUPTED TOOTH/EXPOSED ROOT Apr 20, 2016 EXTRAC ERUPTED TOOTH/EXPOSED ROOT Apr 20, 2016 EXTRAC ERUPTED TOOTH/EXPOSED ROOT Apr 20, 2016 IMMUNIZATIONS No Known Immunizations
--- OUTSIDE RECORDS SUMMARY | 2018-05-15 06:26 | XMS REPORT ---
Author Author RAY NEVAREZ [facility] Address [address] [place] [address] Care Team Providers Care Nut Tightener Name Role Phone RAY NEVAREZ Unavailable PROBLEMS Type Condition ICD9-CM Code XWI13-CT Code Onset Dates Condition Status SNOMED Code Problem Stress incontinence of urine N39.3 Active 95189974 Problem Neuropathy G62.9 Active 090873268 Problem Major depressive disorder, single episode, unspecified F32.9 Active 86376917 Problem Morbid (severe) obesity due to excess calories E66.01 Active 466539142 Problem Body mass index (BMI) of 45.0-49.9 in adult Z68.42 Active 910911154 Problem 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 Active 290424534 Problem Schizoaffective disorder, bipolar type F25.0 Active 07066526 Problem Primary osteoarthritis of left knee M17.12 Active 172808365 Problem Post-menopausal bleeding N95.0 Active 82644801 Problem Obstructive sleep apnea G47.33 Active 68820732 Problem Depression F32.9 Active 75336643 Problem Bipolar 1 disorder F31.9 Active 596110925 Problem Edema R60.9 Active 890446035 Problem GERD (gastroesophageal reflux disease) K21.9 Active 464741830 Problem Obesity E66.9 Active 173191815 Problem Joint pain of lower extremity M25.50 Active 21825376 Problem Environmental allergies Z91.09 Active 112997026 ALLERGIES No Information ENCOUNTERS Encounter Location Date Diagnosis [facility], [place] [id number], [place] [address] Oct, [facility], [place] [id number], [place] [address] Oct, [facility], [place] [address], [place] [address] Sep, [facility], [place] [id number] [address] August, Neuropathy G62.9 [facility] [id number] [place] [address] 20394- 2587 August, [facility] [id number] [place] [address] 87611- 6526 August, [facility] [id number] [place] [address] 21506- 6535 Jul, [facility] [id number] [place] [address] 25817- 9937 Jul, Primary osteoarthritis of left knee M17.12 [facility] [id number] [place] [address] 18168- 1467 Jul, Schizoaffective disorder, bipolar type F25.0 and 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 [facility] [id number] [place] [address] 34783- 7891 Jul, Prediabetes R73.03 ; Primary osteoarthritis of left knee M17.12 ; GERD (gastroesophageal reflux disease) K21.9 ; Bipolar 1 disorder F31.9 ; Depression F32.9 ; Environmental allergies Z91.09 ; Neuropathy G62.9 ; Edema R60.9 ; Body mass index (BMI) of 45.0-49.9 in adult Z68.42 and Morbid ( severe) obesity due to excess calories E66.01 [facility] [address], [place] [address] 2967 Jul, [facility] [id number] [place] [address] 16564- 7359 Jun, [facility] [id number] [place] [address] 90157- 8792 Jun, [facility] [id number] [place] [address] 66647- 3426 Jun, Wound of right breast, initial encounter S21.001A and Prediabetes R73.03 [facility] [id number] [place] [address] 09599- 5516 Jun, [facility] [id number] [place] [address] 82889- 5196 May, GERD (gastroesophageal reflux disease) K21.9 [facility] [id number] [place] [address] 65432- 1888 May, Primary osteoarthritis of left knee M17.12 [facility] [id number] [place] [address] 95662- 2747 May, Schizoaffective disorder, bipolar type F25.0 and 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9, adult Z68.43 [facility] [id number] [place] [address] 66336- 2911 Mar, [facility] [id number] [place] [address] 22734- 0190 Mar, Schizoaffective disorder, bipolar type F25.0 and 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 [facility] [id number] [place] [address] 98042- 6710 Mar, [facility] [address] [place] [address]- 8750 16 Mar, 2017 [facility], [place] [id number] [place] [address] 72211- 8337 Mar, Post-menopausal bleeding N95.0 ; Screening breast examination Z12.31 ; Screen for STD (sexually transmitted disease) Z11.3 ; Obesity E66.9 ; Family history of ovarian cancer Z80.41 and Family history of cervical cancer Z80.49 [facility] [address] 7[address]88- 0421 Mar, [facility], [place] [id number] [place] [address] 03531- 9700 Mar, [facility] [address] 22372- 7120 Jan, Schizoaffective disorder, bipolar type F25.0 and 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 [facility] [address] 23002- 8501 Jan, Schizoaffective disorder, bipolar type F25.0 [facility] [id number] [place] [address] 02270- 1372 Jan, [facility] [id number] [place] [address] 46913- 0578 Jan, Prediabetes R73.03 and Obesity E66.9 [facility] [id number] [place] [address] 86311- 3507 Jan, Encounter for immunization Z23 [facility], [place] [id number] [place] [address] 18519- 9070 Jan, [facility], [place] [address] 73923- 4085 Dec, [facility], [place] [id number] [place] [address] 29575- 6340 Dec, [facility], [place] [address] 80225- 9580 Nov, Neuropathy G62.9 [facility], [place] [id number] [place] [address] 30782- 3348 Nov, [facility], [place] [id number] [place] [address] 43290- 8851 Nov, Schizoaffective disorder, bipolar type F25.0 [facility], [place] [id number] [place] [address] 58100- 9191 Nov, Other mcc (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 Z79.899 and Schizoaffective disorder, bipolar type F25.0 [facility], [place] [id number] [place] [address] 73189- 5045 Oct, Schizoaffective disorder, bipolar type F25.0 ; Other mcc (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 [id number] [place] [address] [id number] Oct, Dental caries K02.9 [facility], [place] [id number] [place] [address] 93259- 1060 Sep, Neuropathy G62.9 [facility], [place] [id number] [place] [address] 50210- 3400 Sep, [facility], [place] [id number] [place] [address] 31771- 1025 Sep, Neuropathy G62.9 [facility], [place] [id number] [place] [address] 82262- 5519 Jul, Schizoaffective disorder, depressive type F25.1 [facility], [place] [id number] [place] [address] 84766- 9517 Jul, GERD (gastroesophageal reflux disease) K21.9 ; Joint pain of lower extremity M25.50 ; Environmental allergies Z91.09 ; Stress incontinence of urine N39.3 ; Neuropathy G62.9 ; Edema R60.9 and Acute pain of left knee M25.562 [facility], [place] [id number] [place] [address] 18437- 1880 Jun, [facility] [id number] [place] [address] [id number] Jun, Dental examination Z01.20 [facility] [id number] [place] [address] 74103- 1436 Jun, [facility] [address] 23691- 6149 May, [facility] [address] 06306- 5519 May, Bipolar 1 disorder F31.9 ; Joint pain of lower extremity M25.50 ; Environmental allergies Z91.09 ; Stress incontinence of urine N39.3 ; Major depressive disorder, single episode, unspecified F32.9 ; Dizzy R42 ; Schizoaffective disorder, unspecified F25.9 ; Neuropathy G62.9 ; Localized edema R60.0 and GERD (gastroesophageal reflux disease) K21.9 [facility] [id number] [place] [address] 77278- 6892 May, Schizoaffective disorder, depressive type F25.1 [facility] [id number] [place] [address] 42392- 4052 May, Environmental allergies Z91.09 and Major depressive disorder , single episode, unspecified F32.9 [facility] [id number] [place] [address] 94466- 6268 Mar, Dental caries K02.9 [facility] [id number] [place] [address] 97506- 9228 Mar, Dental caries on smooth surface penetrating into pulp K02.63 [facility] [id number] [place] [address] 45956 -7391 Mar, Peripheral edema R60.9 and Dry skin L85.3 [facility] [id number] [place] [address] 18960- 8736 Mar, [facility] [id number] [place] [address] 27584- 4833 30 Mar, 2016 Major depressive disorder, single episode, unspecified F32.9 [facility] [address] 39969- 2565 09 Mar, 2016 Dental caries K02.9 [facility] [address] 66897- 1510 07 Mar, 2016 Diabetes mellitus with complication E11.8 ; Urinary frequency R35.0 ; Stress incontinence of urine N39.3 ; Joint pain of lower extremity M25.50 ; Obesity E66.9 ; Environmental allergies Z91.09 ; Depression F32.9 ; Schizoaffective disorder, unspecified F25.9 ; Vaginal discharge N89.8 and Vaginal candidiasis B37.3 [facility] [address] 96589- 1850 Jan, Schizoaffective disorder, unspecified F25.9 [facility] [address] 22026- 8384 17 Jan, 2016 [facility] [address] 50403- 2224 30 Dec, 2015 [facility] [address] 38880- 6729 19 Dec, 2015 Dental caries K02.9 [facility] [address] 46255- 5396 14 Dec, 2015 Obesity E66.9 ; Edema R60.9 ; Depression F32.9 ; Bipolar 1 disorder F31.9 ; 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 ; Environmental allergies Z91.09 ; Shortness of breath R06.02 ; Gastroesophageal reflux disease with esophagitis K21.0 ; Other chronic pain G89.29 ; Pain in right knee M25.561 ; Pain in left knee M25.562 and Encounter for immunization Z23 [facility] [address] 47877- 2806 Nov, Dental caries K02.9 [facility], [place] [id number] [place] [address] 80059- 2509 Oct, Schizoaffective disorder, unspecified F25.9 [facility], [place] [id number] [place] [address] 86017- 9152 Oct, Dental examination Z01.20 [facility], [place] [id number] [place] [address] 77905- 9944 Sep, Dental examination Z01.20 and Dental caries K02.9 [facility], [place] [id number] [place] [address] 86928- 9763 Sep, [facility], [place] [id number] [place] [address] 04834- 3179 Sep, [facility], [place] [id number] [place] [address] 57066- 1970 Sep, [facility], [place] [id number] [place] [address] 04262- 3772 Sep, Schizoaffective disorder, unspecified F25.9 [facility], [place] [id number] [place] [address] 42313- 5220 August, Bipolar disorder, unspecified F31.9 [facility], [place] [id number] [place] [address] 16492- 4697 Jul, Edema R60.9 and Obesity E66.9 [facility], [place] [id number] [place] [address] 14776- 9609 Jul, Edema R60.9 [facility], [place] [id number] [place] [address] 61635- 5336 Jul, Edema R60.9 [facility] [id number] [place] [address] 81696 -8773 Jul, Edema R60.9 [facility], [place] [id number] [place] [address] 41617- 0693 Jul, [facility], [place] [id number] [place] [address] 68037- 3838 Jul, [facility], [place] [id number] [place] [address] 36217- 1477 24 Jun, 2015 Environmental allergies V15.09 and Cough R05 [facility], [place] [id number] [place] [address] 88176- 4575 17 Jun, 2015 Environmental allergies V15.09 ; Edema R60.9 and Cough R05 [facility] [id number] [place] [address] 63473 -4649 12 Jun, 2015 Bronchospasm J98.01 [facility] [id number] [place] [address] 19579- 2887 Jun, [facility] [id number] [place] [address] 32461- 5994 Jun, [facility], [place] [id number] [place] [address] 68569- 4457 Jun, Environmental allergies V15.09 ; Bipolar 1 disorder F31.9 ; GERD (gastroesophageal reflux disease) K21.9 ; Depression F32.9 ; Joint pain of lower extremity M25.50 ; COPD (chronic obstructive pulmonary disease) J44.9 and Screening for diabetes mellitus Z13.1 [facility] [id number] [place] [address] 62208- 3307 Jun, [facility] [id number] [place] [address] 22872- 5994 May, [facility] [id number] [place] [address] 18648- 9995 14 May, 2015 Schizoaffective disorder, unspecified F25.9 and Bipolar 1 disorder F31.9 [facility] [id number] [place] [address] 52504- 4917 May, [facility], [place] [address] 79768- 0584 May, URI (upper respiratory infection) J06.9 ; Environmental allergies V15.09 and Cough R05 [facility] [address] 34481- 5140 Mar, [facility] [address] 56920- 7453 Mar, Vaginal discharge N89.8 [facility] [address] 14161- 4142 Mar, Schizoaffective disorder, unspecified F25.9 ; Major depressive disorder, single episode, unspecified F32.9 and Bipolar 1 disorder F31.9 [facility] [address] 46509- 7803 Mar, [facility] [address] 04842- 3128 Mar, Bipolar 1 disorder F31.9 [facility] [address] 82202- 6150 Jan, [facility] [address] 48577- 4514 Jan, Allergic rhinitis J30.9 and Cough R05 [facility] [address] 93559- 6595 Jan, 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 ; Bipolar 1 disorder F31.9 ; GERD ( gastroesophageal reflux disease) K21.9 ; Depression F32.9 and Joint pain of lower extremity M25.50 [facility] [address] 73387- 7059 Dec, Encounter for immunization Z23 [address] 46084- 0863 02 Dec, 2014 Schizoaffective disorder, unspecified 295.70 ; Pain in joint , lower leg 719.46 ; Esophageal reflux 530.81 ; Bipolar 1 disorder 296.7 ; Depression 311 ; GERD (gastroesophageal reflux disease) 530.81 and Environmental allergies V15.09 [facility] [address] [id number] Nov, Dental examination V72.2 [facility], [place] [id number] [place] [address] 03832- 9666 Nov, Acute bronchitis 466.0 [facility], [place] [id number] [place] [address] 494959- 0213 Nov, Schizoaffective disorder, unspecified 295.70 and Bipolar disorder, unspecified 296.80 [facility] [id number] [place] [address] [id number] Sep, Dental examination V72.2 [facility] [id number] [place] [address] [id number] August, Dental examination V72.2 [facility], [place] [id number] [place] [address] 969569- 8886 August, Schizoaffective disorder, unspecified 295.70 [facility], [place] [id number] [place] [address] 62270- 7266 August, [facility], [place] [id number] [place] [address] 827015- 2156 August, Vomiting 787.03 [facility], [place] [id number] [place] [address] 954192- 8634 August, Vomiting and diarrhea 787.03 and High risk medication use V58.69 [facility], [place] [id number] [place] [address] [id number]- 8486 Jul, [facility], [place] [id number] [place] [address] 494012- 6491 Jul, [facility], [place] [id number] [place] [address] [id number]- 4250 Jul, [facility], [place] [id number] [place] [address] 914638- 1314 Jun, [facility] [place] [facility] [address] [id number] [place] [address]- 0339 27 Jun, 2014 [facility] [place] [facility] [address] [id number] [place] [address]- 4412 17 Jun, 2014 [facility] [place] [facility] [address] [id number] [place] [address]- 5036 17 Jun, 2014 [facility] [place] [facility] [address] [id number] [place] [address]- 3072 16 Jun, 2014 [facility] [place] [facility] [address] [id number] [place] [address]- 6059 Jun, 2014 [facility] [place] [facility] [address] [id number] [place] [address]- 0533 Jun, 2014 [facility] [place] [facility] [address] [id number] [place] [address]- 6377 Jun, 2014 [facility] [place] [facility] [address] [facility] [id number] [place] [address]- 7872 Jun, 2014 [facility] [place] [facility] [address] [id number] [place] [address]- 1518 Mar, [facility] [place] [facility] [address] [id number] [place] [address]- 8981 Mar, [facility] [place] [facility] [address] [id number] [place] [address]- 2737 Mar, [facility] [place] [facility] [address] [id number] [place] [address]- 9256 Mar, [facility] [place] [facility] [address] [id number] [place] [address]- 0838 Mar, [facility] [place] [facility] [address] [id number] [place] [address]- 1542 Mar, [facility] [place] [facility] [address] [id number] [place] [address]- 2410 Mar, [facility] [place] [facility] [address] [id number] [place] [address]- 1148 Mar, [facility] [place] [facility] [address] [id number] [place] [address]- 1421 Mar, [facility] [place] [facility] [address] [id number] [place] [address]- 3150 Mar, [facility] [place] [facility] [address] [id number] [place] [address]- 2756 Jan, [facility] [place] [facility] [address] [id number] [place] 0337 Jan, [facility] [place] [facility] [address] [id number] [place] [address]- 0946 Jan, [facility] [place] [facility] [address] [id number] [place] [address]- 3120 Jan, [facility] [place] [facility] [address] [id number] [place] [address]- 6866 Jan, [facility] [place] [facility] [address] [id number] [place] [address]- 5357 Jan, [facility] [place] [facility] [address] [id number] [place] [address]- 8066 Jan, [facility] [place] [facility] [address] [id number] [place] [address]- 5583 Jan, [facility] [place] [facility] [address] [id number], [place] [address] 19 Dec, 2013 [facility] [place] [facility] [address] [id number], [place] [address] 19 Dec, 2013 [facility] [place] [facility] [address] [id number] [place] [address] 15 Dec, 2013 [facility] [place] [facility] [address] [id number] [place] [address] 15 Dec, 2013 [facility] [place] [facility] [address] [id number] [place] [address] 15 Dec, 2013 [facility] [place] [facility] [address] [id number] [place] [address] 15 Dec, 2013 [facility] [place] [facility] [address] [id number] [place] [address] 12 Dec, 2013 [facility] [place] [facility] [address] [id number] [place] [address] 12 Dec, 2013 [facility] [place] [facility] [address] [id number] [place] [address] Dec, [facility] [place] [facility] [address] [id number] [place] [address] Dec, [facility] [place] [facility] [address] [id number] [place] [address] Nov, [facility] [place] [facility] [address] [id number] [place] [address] Nov, [facility] [place] [facility] [address] [id number] [place] [address] Nov, [facility] [place] [facility] [address] [id number] [place] [address] Nov, [facility] [place] [facility] [address] [id number] [place] [address] Oct, [facility] [place] [facility] [address] [id number] [place] [address] Oct, [facility] [place] [facility] [address] [id number] [place] [address] Oct, [facility] [place] [facility] [address] [id number] [place] [address] Oct, [facility] [place] [facility] [address] [id number] [place] [address] Sep, [facility] [place] [facility] [address] [id number] [place] [address] Sep, [facility] [place] [facility] [address] [id number] [place] [address] Sep, [facility] [place] [facility] [address] [id number] [place] [address] Sep, [facility] [place] [facility] [address] [id number] [place] [address] Sep, [facility] [place] [facility] [address] [id number] [place] [address] Sep, [facility] [place] [facility] [address] [id number] [place] [address] Sep, [facility] [place] [facility] [address] [id number] [place] [address] Sep, [facility] [place] [facility] [address] [id number] [place] [address] August, [facility] [place] [facility] [address] [id number] [place] [address] August, [facility] [place] [facility] [address] [id number] [place] [address] Jul, [facility] [place] [facility] [address] [id number] [place] [address] Jul, [facility] [place] [facility] [address] [id number] [place] [address] Jul, [facility] [place] [facility] [address] [id number] [place] [address] Jul, [facility] [place] [facility] [address] [id number] [place] [address] Jul, [facility] [place] [facility] [address] [id number] [place] [address] Jul, [facility] [place] [facility] [address] [id number] [place] [address] Jul, [facility] [place] [facility] [address] [id number] [place] [address] Jul, [facility] [place] [facility] [address] [id number], [place] [address] 07 Jul, 2013 [facility] [place] [facility] [address] [id number] [place] [address] 07 Jul, 2013 [facility] [place] [facility] [address] [id number] [place] [address]15 27 Jun, 2013 [facility] [place] [facility] [address] [id number] [place] [address] 27 Jun, 2013 [facility] [place] [facility] [address] [id number] [place] [address] 18 Jun, 2013 [facility] [place] [facility] [address] [id number] [place] [address] 9748 18 Jun, 2013 [facility] [place] [facility] [address] [id number] [place] [address] 4635 17 Jun, 2013 [facility] [place] [facility] [address] [id number] [place] [address]100 17 Jun, 2013 [facility] [place] [facility] [address] [id number] [place] [address]- 7[address] 17 Jun, 2013 [facility] [place] [facility] [address] [id number] [place] [address]- 9641 17 Jun, 2013 [facility] [place] [facility] [address] [id number] [place] [address]- 1321 14 Jun, 2013 [facility] [place] [facility] [address] [id number] [place] [address]- 5332 14 Jun, 2013 [facility] [place] [facility] [address] [id number] [place] [address]- 9409 Jun, [facility] [place] [facility] [address] [id number] [place] [address] Jun, [facility] [place] [facility] [address] [id number] [place] [address]229 Jun, [facility] [place] [facility] [address] [id number] [place] [address] 7970 Jun, [facility] [place] [facility] [address] [id number] [place] [address]- [address]645 Jun, [facility] [address] [id number] [place] [address] Jun, [facility] [place] [facility] [address] [id number] [place] [address] 2210 May, [facility] [place] [facility] [address] [id number] [place] [address] 6239 May, [facility] [address] [id number] [place] [address] 4513 May, [facility] [address] [id number] [place] [address] May[facility] [address] [id number] [place] [address] Mar, [facility] [address] [id number] [place] [address] 8580 Mar, [facility] [address] [id number] [place] [address]- 9208 Mar, [facility] [address] [id number] [place] [address] 38[address] Mar, [facility] [place] [facility] [address] [id number] [place] [address] 6[address] Mar, [facility] [place] [facility] [address] [id number] [place] [address] 1477 Mar, [facility] [place] [facility] [address] [id number] [place] [address] 5920 Mar, [facility] [place] [facility] [address] [id number] [place] [address] 2542 Mar, [facility] [place] [facility] [address] [id number] [place] [address]309 Jan, [facility] [place] [facility] [address] [id number] [place] [address] 7912 Jan, [facility] [place] [facility] [address] [id number] [place] [address]- 7231 Jan, [facility] [place] [facility] [address] [id number] [place] [address]187 Jan, [facility] [place] [facility] [address] [id number] [place] [address]- 9682 Jan, [facility] [place] [facility] [address] [id number] [place] [address] 6[address] Jan, [facility] [place] [facility] [address] [id number] [place] [address]- 6628 Jan, [facility] [place] [facility] [address] [id number] [place] [address]170 Dec, [facility] [place] [facility] [address] [id number] [place] [address] 9701 Nov, [facility] [place] [facility] [address] [id number] [place] [address] 2004 Oct, [facility] [place] [facility] [address] [id number] [place] [address]- 5562 Oct, [facility] [place] [facility] [address] [id number] [place] [address]- 8538 Sep, [facility] [place] [facility] [address] [id number] [place] [address] 4050 Sep, [facility] [place] [facility] [address] [id number] [place] [address]- 0788 Sep, [facility] [place] [facility] [address] [id number] [place] [address]- 8397 August, [facility] [place] [facility] [address] [id number] [place] [address]- 7356 Jun, [facility] [place] [facility] [address] [id number] [place] [address]- 7287 Jun, [facility] [place] [facility] [address] [id number] [place] [address]- 4817 15 Jun, 2012 [facility] [address] [id number] [place] [address]- 7244 15 Jun, 2012 [facility] [address] [id number] [place] [address]- 4326 13 Jun, 2012 [facility] [address] [id number] [place] [address]- [address] 12 Jun, 2012 [facility] [address] [id number] [place] [address]- 8663 07 Jun, 2012 [facility] [address] [id number] [place] [address]- 9495 May, [facility] [address] [id number] [place] [address] 5454 May, [facility] [address] [id number] [place] [address]- 8958 May, [facility] [address] [id number] [place] [address]- 0007 May, [facility] [address] [id number] [place] [address]- 6019 May, [facility] [address] [id number] [place] [address]- 1269 May, [facility] [address] [id number] [place] [address]- 9243 May, [facility] [address] [id number] [place] [address]- 0744 Mar, [facility] [place] [facility] [address] [id number] [place] [address]- 2926 Mar, [facility] [place] [facility] [address] [id number] [place] [address]- 9967 Mar, [facility] [address] [id number] [place] [address]- 0711 Mar, [facility] [place] [facility] [address] [id number] [place] [address]- 2312 Mar, [facility] [place] [facility] [address] [id number] [place] [address]- 3266 Mar, [facility] [place] [facility] [address] [facility] [id number] [place] [address] 1946 Mar, [facility] [place] [facility] [address] [id number] [place] [address]- 5417 Mar, [facility] [place] [facility] [address] [id number] [place] [address]- 7438 Mar, [facility] [place] [facility] [address] [id number] [place] [address]- 4034 Mar, [facility] [place] [facility] [address] [id number] [place] [address]- 7747 Mar, [facility] [place] [facility] [address] [id number] [place] [address]- 6466 Mar, [facility] [place] [facility] [address] [id number] [place] [address]- 7558 Mar, [facility] [place] [facility] [address] [id number] [place] [address]- 1187 Mar, [facility] [place] [facility] [address] [id number], [place] [address]- 7236 Mar, [facility] [place] [facility] [address] [id number], [place] [address]- 0064 Mar, [facility] [place] [facility] [address] [id number] [place] [address]- 1591 Mar, [facility] [place] [facility] [address] [facility] [id number], [place] [address]- 6649 Mar, [facility] [place] [facility] [address] [facility] [id number], [place] [address]- 2080 Mar, [facility] [place] [facility] [id number], [place] [address] Jan, [facility] [place] [id number], [place] [address] Jan, [facility] [place] [address] [id number] [address] Jan, [facility] [place] [id number], [place] [address]- [address] Jan, [facility] [place] [address] [facility] [id number], [place] [address]- 2309 Dec, [facility] [place] [id number] [place] [address]- [address]58 Dec, [facility] [place] [id number], [place] [address]- [address]272 Dec, [facility] [place] [id number], [place] [address]- 1376 Nov, [facility] [place] [id number], [place] [address]- 5870 Nov, [facility] [place] [id number], [place] [address]- 2015 Oct, [facility] [place] [id number], [place] [address]- 4[address] Oct, [facility] [place] [id number], [place] [address]- 8279 Oct, [facility] [place] [id number], [place] [address]- 0491 Oct, [facility] [place] [id number], [place] [address]- 5485 Oct, [facility] [place] [id number], [place] [address]- 7793 Oct, IMMUNIZATIONS No Known Immunizations SOCIAL HISTORY Never Assessed REASON FOR VISIT EDW PLAN OF CARE VITAL SIGNS MEDICATIONS Unknown [...] use Surgical History right knee arthroscopy x2 2005, 2007 Hospitalization History surgery Hospitalization History hospitalized psychiatrically x4, last incident prior to 2006
--- OUTSIDE RECORDS SUMMARY | 2018-05-15 06:26 | XMS REPORT ---
Author Author RAY NEVAREZ [facility] Address [address] [place] [address] Care Team Providers Care Solution Specialist Name Role Phone RAY NEVAREZ Unavailable PROBLEMS Type Condition ICD9-CM Code QZA36-SQ Code Onset Dates Condition Status SNOMED Code Problem Stress incontinence of urine N39.3 Active 11868133 Problem Neuropathy G62.9 Active 769817896 Problem Major depressive disorder, single episode, unspecified F32.9 Active 40618177 Problem Morbid (severe) obesity due to excess calories E66.01 Active 065253630 Problem Body mass index (BMI) of 45.0-49.9 in adult Z68.42 Active 790590242 Problem 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 Active 477899038 Problem Schizoaffective disorder, bipolar type F25.0 Active 66601176 Problem Primary osteoarthritis of left knee M17.12 Active 854428561 Problem Post-menopausal bleeding N95.0 Active 33774445 Problem Depression F32.9 Active 76915289 Problem Bipolar 1 disorder F31.9 Active 236743497 Problem Edema R60.9 Active 028093959 Problem GERD (gastroesophageal reflux disease) K21.9 Active 943854233 Problem Obesity E66.9 Active 725063810 Problem Joint pain of lower extremity M25.50 Active 73718522 Problem Environmental allergies Z91.09 Active 514473064 ALLERGIES No Information ENCOUNTERS Encounter Location Date Diagnosis [facility] [place] [address] [address] Oct, [facility] [place] [id number] [place] [address] 43945- 0886 August, [facility] [place] [address], [place] [address] Jul, [facility] [place] [id number] [place] [address] 14992- 1641 Jul, Primary osteoarthritis of left knee M17.12 [facility] [id number] [place] [address] 57706- 6022 Jul, Schizoaffective disorder, bipolar type F25.0 and 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 [facility] [id number] [place] [address] 19325- 8577 Jul, Prediabetes R73.03 ; Primary osteoarthritis of left knee M17.12 ; GERD (gastroesophageal reflux disease) K21.9 ; Bipolar 1 disorder F31.9 ; Depression F32.9 ; Environmental allergies Z91.09 ; Neuropathy G62.9 ; Edema R60.9 ; Body mass index (BMI) of 45.0-49.9 in adult Z68.42 and Morbid ( severe) obesity due to excess calories E66.01 [facility] [id number] [place] [address] 62254- 9534 Jul, [facility] [id number] [place] [address] 86248- 2833 Jun, [facility] [id number] [place] [address] 06919- 2732 Jun, [facility] [id number] [place] [address] 49210- 0657 Jun, Wound of right breast, initial encounter S21.001A and Prediabetes R73.03 [facility] [id number] [place] [address] 45209- 7881 Jun, [facility] [id number] [place] [address] 90521- 8564 May, GERD (gastroesophageal reflux disease) K21.9 [facility] [id number] [place] [address] 88480- 1552 May, Primary osteoarthritis of left knee M17.12 [facility] [id number] [place] [address] 99182- 0934 May, Schizoaffective disorder, bipolar type F25.0 and 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 [facility] [id number] [place] [address] 39700- 9737 04 May, 2017 Left medial knee pain M25.562 ; GERD (gastroesophageal reflux disease) K21.9 ; Depression F32.9 ; Neuropathy G62.9 ; Obesity E66.9 ; Prediabetes R73.03 and Edema R60.9 [facility] [id number] [place] [address] 08029- 6799 14 Mar, 2017 [facility] [id number] [place] [address] 55999- 3864 08 Mar, 2017 [facility] [id number] [place] [address] 63260- 2796 05 Mar, 2017 Post-menopausal bleeding N95.0 and BMI 50.0-59.9, adult Z68.43 [facility] [id number] [place] [address] 76882- 4665 Mar, [facility] [id number] [place] [address] 35787- 2213 27 Mar, 2017 Schizoaffective disorder, bipolar type F25.0 and 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 [facility] [id number] [place] [address] 43663- 6643 27 Mar, 2017 [facility] [id number] [place] [address] 14932- 4279 16 Mar, 2017 [facility] [id number] [place] [address] 64780- 3481 10 Mar, 2017 Post-menopausal bleeding N95.0 ; Screening breast examination Z12.31 ; Screen for STD (sexually transmitted disease) Z11.3 ; Obesity E66.9 ; Family history of ovarian cancer Z80.41 and Family history of cervical cancer Z80.49 [facility] [id number] [place] [address] 84822- 6885 03 Mar, 2017 [facility] [id number] [address]- 7514 Mar, [facility] [place] [id number] [place] [address] 07251- 3363 Jan, Schizoaffective disorder, bipolar type F25.0 and 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 [facility] [place] [id number] [place] [address], [place] [address]- 4690 Jan, Schizoaffective disorder, bipolar type F25.0 [facility] [place] [id number] [place] [address] 35579- 7100 Jan, [facility] [place] [id number] [place] [address] 33221- 1792 Jan, Prediabetes R73.03 and Obesity E66.9 [facility] [place] [id number] [place] [address] 64005- 8890 Jan, Encounter for immunization Z23 [facility] [place] [id number] [place] [address] 31513- 7881 Jan, [facility] [place] [id number] [place] [address] 26643- 1927 Dec, [facility] [place] [id number] [address]- 4568 Dec, [facility] [place] [id number] [place] [address] 29160- 5158 Nov, Neuropathy G62.9 [facility] [place] [id number] [address]- 4754 Nov, [facility] [place] [id number] [place] [address] 88273- 8133 Nov, Schizoaffective disorder, bipolar type F25.0 [facility] [place] [id number] [address]- 1235 Nov, Other senior care (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 Z79.899 and Schizoaffective disorder, bipolar type F25.0 [facility] [place] [id number] [place] [address] 32884- 2695 Oct, Schizoaffective disorder, bipolar type F25.0 ; Other senior care (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 Z79.899 and 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 [facility] [id number] [place] [address] [id number] Oct, Dental caries K02.9 [facility] [place] [address] 87916- 4105 Sep, Neuropathy G62.9 [facility] [place] [address] 54183- 0843 Sep, [facility] [place] [address] 94827- 2082 Sep, Neuropathy G62.9 [facility] [place] [address] 95973- 1322 Jul, Schizoaffective disorder, depressive type F25.1 [facility] [place] [id number] [place] [address] 08443- 2675 Jul, GERD (gastroesophageal reflux disease) K21.9 ; Joint pain of lower extremity M25.50 ; Environmental allergies Z91.09 ; Stress incontinence of urine N39.3 ; Neuropathy G62.9 ; Edema R60.9 and Acute pain of left knee M25.562 [facility] [place] [id number] [place] [address] 41762- 6164 Jun, [facility] [id number] [place] [address] [id number] Jun, Dental examination Z01.20 [facility] [place] [address] 41535- 9502 Jun, [facility] [place] [id number] [place] [address] 12255- 9001 May, [facility] [place] [address] 90320- 8059 May, Bipolar 1 disorder F31.9 ; Joint pain of lower extremity M25.50 ; Environmental allergies Z91.09 ; Stress incontinence of urine N39.3 ; Major depressive disorder, single episode, unspecified F32.9 ; Dizzy R42 ; Schizoaffective disorder, unspecified F25.9 ; Neuropathy G62.9 ; Localized edema R60.0 and GERD (gastroesophageal reflux disease) K21.9 [facility] [address] 84888- 3190 May, Schizoaffective disorder, depressive type F25.[address] 504486- 3858 May, Environmental allergies Z91.09 and Major depressive disorder , single episode, unspecified F32.9 [facility] [address] 00231- 2763 Mar, Dental caries K02.9 [facility] [address] 60747- 6914 Mar, Dental caries on smooth surface penetrating into pulp K02.63 [facility] [place] [address] 50496 -1137 Mar, Peripheral edema R60.9 and Dry skin L85.[address] 56601- 9169 Mar, [facility] [address] 91743- 9718 Mar, Major depressive disorder, single episode, unspecified F32.9 [facility] [facility] [address] 05160- 6353 Mar, Dental caries K02.9 [facility] [address] 00044- 0345 Mar, Diabetes mellitus with complication E11.8 ; Urinary frequency R35.0 ; Stress incontinence of urine N39.3 ; Joint pain of lower extremity M25.50 ; Obesity E66.9 ; Environmental allergies Z91.09 ; Depression F32.9 ; Schizoaffective disorder, unspecified F25.9 ; Vaginal discharge N89.8 and Vaginal candidiasis B37.3 [facility] [id number] [place] [address] 32480- 2551 Jan, Schizoaffective disorder, unspecified F25.9 [facility] [address] 99679- 9070 Jan, [place] [facility] [address] 18407- 3467 30 Dec, 2015 [place] [facility] [address] 69544- 0919 19 Dec, 2015 Dental caries K02.9 [place] [facility] [address] 32994- 2410 14 Dec, 2015 Obesity E66.9 ; Edema R60.9 ; Depression F32.9 ; Bipolar 1 disorder F31.9 ; 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 ; Environmental allergies Z91.09 ; Shortness of breath R06.02 ; Gastroesophageal reflux disease with esophagitis K21.0 ; Other chronic pain G89.29 ; Pain in right knee M25.561 ; Pain in left knee M25.562 and Encounter for immunization Z23 [facility] [id number] [place] [address] 64926- 2003 Nov, Dental caries K02.9 [facility] [id number] [place] [address] 31698- 8214 Oct, Schizoaffective disorder, unspecified F25.9 [facility] [address] 29267- 2773 Oct, Dental examination Z01.20 [facility] [id number] [place] [address] 79120- 0091 Sep, Dental examination Z01.20 and Dental caries K02.9 [facility] [id number] [place] [address] 60566- 6361 13 Sep, 2015 [facility] [place] [id number] [place] [address] 73876- 8443 09 Sep, 2015 [facility] [place] [id number] [place] [address] 47709- 7458 Sep, [facility] [place] [id number] [place] [address] 17622- 7388 Sep, Schizoaffective disorder, unspecified F25.9 [facility] [place] [id number] [place] [address] 12438- 4356 August, Bipolar disorder, unspecified F31.9 [facility] [place] [id number] [place] [address] 46648- 5342 Jul, Edema R60.9 and Obesity E66.9 [facility] [place] [id number] [place] [address] 80678- 3191 Jul, Edema R60.9 [facility] [place] [id number] [place] [address] 06665- 2106 Jul, Edema R60.9 [facility] [id number] [place] [address] 82778 -5823 Jul, Edema R60.9 [facility] [place] [id number] [place] [address] 03698- 0681 Jul, [facility] [place] [id number] [place] [address] 10613- 3736 Jul, [facility] [place] [id number] [place] [address] 86138- 9957 24 Jun, 2015 Environmental allergies V15.09 and Cough R05 [facility] [place] [id number] [place] [address] 38369- 2383 17 Jun, 2015 Environmental allergies V15.09 ; Edema R60.9 and Cough R05 [facility] [id number] [place] [address] 37740 -0043 12 Jun, 2015 Bronchospasm J98.01 [place] [address] 47746- 5929 Jun, [place] [address] 20202- 2029 09 Jun, 2015 [place] [address] 53692- 0336 08 Jun, 2015 Environmental allergies V15.09 ; Bipolar 1 disorder F31.9 ; GERD (gastroesophageal reflux disease) K21.9 ; Depression F32.9 ; Joint pain of lower extremity M25.50 ; COPD (chronic obstructive pulmonary disease) J44.9 and Screening for diabetes mellitus Z13.1 [place] [address] 57195- 8479 16 Jun, 2015 [place] [address] 20266- 9884 May, [place] [address] 42485- 9365 14 May, 2015 Schizoaffective disorder, unspecified F25.9 and Bipolar 1 disorder F31.9 [facility] [id number] [place] [address] 95243- 5993 May, [facility] [id number] [place] [address] 91276- 4720 May, URI (upper respiratory infection) J06.9 ; Environmental allergies V15.09 and Cough R05 [facility] [id number] [place] [address] 51763- 9615 18 Mar, 2015 [place] [address] 65966- 1539 15 Mar, 2015 Vaginal discharge N89.8 [facility] [id number] [place] [address] 52971- 4576 14 Mar, 2015 Schizoaffective disorder, unspecified F25.9 ; Major depressive disorder, single episode, unspecified F32.9 and Bipolar 1 disorder F31.9 [facility] [id number] [place] [address] 29723- 6403 Mar, [place] [address] 32079- 8001 Mar, Bipolar 1 disorder F31.9 [place] [address] 30356- 1343 Jan, [place] [address] 14960- 5370 Jan, Allergic rhinitis J30.9 and Cough R05 [address] 63675- 2655 Jan, 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 ; Bipolar 1 disorder F31.9 ; GERD ( gastroesophageal reflux disease) K21.9 ; Depression F32.9 and Joint pain of lower extremity M25.50 [place] [id number] [place] [address] 26364- 9482 Dec, Encounter for immunization Z23 [address] 46163- 8505 Dec, Schizoaffective disorder, unspecified 295.70 ; Pain in joint , lower leg 719.46 ; Esophageal reflux 530.81 ; Bipolar 1 disorder 296.7 ; Depression 311 ; GERD (gastroesophageal reflux disease) 530.81 and Environmental allergies V15.09 [facility] [id number] [place] [address] [id number] Nov, Dental examination V72.[address] 97027- 4479 Nov, Acute bronchitis 466.0 [place] [address] 40632- 8429 Nov, Schizoaffective disorder, unspecified 295.70 and Bipolar disorder, unspecified 296.80 [facility] [address] [place] [id number] Sep, Dental examination V72.2 [facility] [id number] [place] [address] [id number] August, Dental examination V72.2 [facility] [place] [id number] [place] [address] 22721 2546 August, Schizoaffective disorder, unspecified 295.70 [facility] [place] [id number] [place] [address] 66622- 3066 August, [facility] [place] [id number] [place] [address] 01848- 8256 August, Vomiting 787.03 [facility] [place] [id number] [place] [address] 73599- 4746 August, Vomiting and diarrhea 787.03 and High risk medication use V58.69 [facility] [place] [id number] [place] [address] 04680- 0796 Jul, [facility] [place] [id number] [place] [address] 51637- 3185 Jul, [facility] [place] [id number] [place] [address] 11288- 8376 Jul, [facility] [place] [address] [place] [address] 74054- 9316 Jun, [facility] [place] [id number] [place] [address] 25330- 2076 Jun, [facility] [place] [id number] [place] [address] 92545- 0046 Jun, [facility] [place] [id number] [place] [address] 34744- 3946 Jun, [facility] [place] [address] [place] [address] 53172- 5506 Jun, [facility] [place] [id number] [place] [address] 00743- 8457 Jun, 2014 [facility] [place] [facility] [address] [id number] [place] [address]- 4281 Jun, 2014 [facility] [place] [facility] [address] [id number] [place] [address]- 0937 Jun, [facility] [place] [facility] [address] [facility] [id number] [place] [address]- 5524 Jun, [facility] [place] [facility] [address] [id number] [place] [address]- 7706 Mar, [facility] [place] [facility] [address] [id number] [place] [address]- 3497 Mar, [facility] [place] [facility] [address] [id number] [place] [address]- 3826 Mar, [facility] [place] [facility] [address] [id number] [place] [address]- 4901 Mar, [facility] [place] [facility] [address] [id number] [place] [address]- 6728 Mar, [facility] [place] [facility] [address] [id number] [place] [address]- 8766 Mar, [facility] [place] [facility] [address] [facility] [id number] [place] [address]- 5007 Mar, [facility] [place] [facility] [address] [id number] [place] [address]- 2421 Mar, [facility] [place] [facility] [address] [id number] [address]- 1711 Mar, [facility] [place] [facility] [address] [id number] [place] [address]- 1146 Mar, [facility] [place] [facility] [address] [id number] [place] 0521 Jan, [facility] [place] [facility] [address] [facility] [id number] [place] [address]- 4274 Jan, [facility] [place] [facility] [address] [id number] [place] [address]- 4796 31 Jan, 2014 [facility] [place] [facility] [address] [id number] [place] [address] 31 Jan, 2014 [facility] [place] [facility] [address] [id number] [place] [address] 14 Jan, 2014 [facility] [place] [facility] [address] [id number] [place] [address] 14 Jan, 2014 [facility] [place] [facility] [address] [id number] [place] [address] Jan, [facility] [place] [facility] [address] [id number] [place] [address] Jan, [facility] [place] [facility] [address] [id number] [place] [address] 19 Dec, 2013 [facility] [place] [facility] [address] [id number] [place] [address] 19 Dec, 2013 [facility] [place] [facility] [address] [id number] [place] [address]64 15 Dec, 2013 [facility] [place] [facility] [address] [id number] [place] [address] 15 Dec, 2013 [facility] [place] [facility] [address] [id number] [place] [address] 15 Dec, 2013 [facility] [place] [facility] [address] [id number] [place] [address] 15 Dec, 2013 [facility] [place] [facility] [address] [id number] [place] [address]- [address] 12 Dec, 2013 [facility] [place] [facility] [address] [id number] [place] [address]- [address] 12 Dec, 2013 [facility] [place] [facility] [address] [id number] [place] [address]- [address] 03 Dec, 2013 [facility] [place] [facility] [address] [id number] [place] [address]- [address] Dec, [facility] [place] [facility] [address] [id number] [place] [address] Nov, [facility] [place] [facility] [address] [id number] [place] [address] Nov, [facility] [place] [facility] [address] [id number] [place] [address] Nov, [facility] [place] [facility] [address] [id number] [place] [address] Nov, [facility] [place] [facility] [address] [id number] [place] [address] Oct, [facility] [place] [facility] [address] [id number] [place] [address] Oct, [facility] [place] [facility] [address] [id number] [place] [address] Oct, [facility] [place] [facility] [address] [id number] [place] [address] Oct, [facility] [place] [facility] [address] [id number] [place] [address] Sep, [facility] [place] [facility] [address] [id number] [place] [address] Sep, [facility] [place] [facility] [address] [id number] [place] [address] Sep, [facility] [place] [facility] [address] [id number] [place] [address]- [address] Sep, [facility] [place] [facility] [address] [id number] [place] [address]- [address] Sep, [facility] [place] [facility] [address] [id number] [place] [address]- [address] Sep, [facility] [place] [facility] [address] [id number] [place] [address] Sep, [facility] [place] [facility] [address] [id number] [place] [address] Sep, [facility] [place] [facility] [address] [id number] [place] [address] August, [facility] [place] [facility] [address] [id number] [place] [address] August, [facility] [place] [facility] [address] [id number] [place] [address] Jul, [facility] [place] [facility] [address] [id number] [place] [address] Jul, [facility] [place] [facility] [address] [id number] [place] [address] Jul, [facility] [place] [facility] [address] [id number] [place] [address] Jul, [facility] [place] [facility] [address] [id number] [place] [address] Jul, [facility] [place] [facility] [address] [id number] [place] [address] Jul, [facility] [place] [facility] [address] [id number] [place] [address] Jul, [facility] [place] [facility] [address] [id number] [place] [address] Jul, [facility] [place] [facility] [address] [id number] [place] [address] Jul, [facility] [place] [facility] [address] [id number] [place] [address] Jul, [facility] [place] [facility] [address] [id number] [place] [address] Jun, [facility] [place] [facility] [address] [id number] [place] [address] 69[address] Jun, [facility] [place] [facility] [address] [id number] [place] [address] Jun, [facility] [place] [facility] [address] [id number] [place] [address] 18 Jun, 2013 [facility] [place] [facility] [address] [id number] [place] [address] 17 Jun, 2013 [facility] [place] [facility] [address] [id number] [place] [address]116 17 Jun, 2013 [facility] [place] [facility] [address] [id number] [place] [address]- 6275 17 Jun, 2013 [facility] [place] [facility] [address] [id number] [place] [address] 17 Jun, 2013 [facility] [place] [facility] [address] [id number] [place] [address] 9754 14 Jun, 2013 [facility] [place] [facility] [address] [id number] [place] [address] 14 Jun, 2013 [facility] [place] [facility] [address] [id number] [place] [address]17 Jun, [facility] [place] [facility] [address] [id number] [place] [address] Jun, [facility] [place] [facility] [address] [id number] [place] [address] Jun, [facility] [place] [facility] [address] [id number] [place] [address] 2380 Jun, [facility] [place] [facility] [address] [id number] [place] [address] 37[address] Jun, [facility] [place] [facility] [address] [id number] [place] [address] 76[address] Jun, [facility] [place] [facility] [address] [id number] [place] [address] 39[address] May, [facility] [place] [facility] [address] [id number] [place] [address] May, [facility] [place] [facility] [address] [id number], [place] [address] May, [facility] [address] [id number] [place] [address] 0789 May, [facility] [place] [facility] [address] [id number], [place] [address] Mar, [facility] [place] [facility] [address] [id number] [place] [address]93 Mar, [facility] [place] [facility] [address] [id number] [place] [address] Mar, [facility] [place] [facility] [address] [id number] [place] [address] Mar, [facility] [place] [facility] [address] [id number] [place] [address]111 Mar, [facility] [address] [id number], [place] [address] Mar, [facility] [place] [facility] [address] [id number] [place] [address] 2414 Mar, [facility] [place] [facility] [address] [id number], [place] [address] Mar, [facility] [place] [facility] [address] [id number], [place] [address] 38[address] Jan, [facility] [place] [facility] [address] [id number], [place] [address] Jan, [facility] [place] [facility] [address] [id number], [place] [address] Jan, [facility] [place] [facility] [address] [id number][place] [address] Jan, [facility] [place] [facility] [address] [id number], [place] [address] 9668 Jan, [facility] [place] [facility] [address] [id number] [address] Jan, [facility] [place] [facility] [address] [id number] [place] [address] 0[address] Jan, [facility] [address] [id number] [place] [address] 2464 Dec, [facility] [place] [facility] [address] [id number] [place] [address] 8911 Nov, [facility] [place] [facility] [address] [id number] [place] [address] 3980 Oct, [facility] [place] [facility] [address] [id number] [place] [address]29 Oct, [facility] [place] [facility] [address] [id number] [place] [address] Sep, [facility] [place] [facility] [address] [id number] [place] [address]- [address]78 Sep, [facility] [place] [facility] [address] [id number] [place] [address] 56[address] Sep, [facility] [place] [facility] [address] [id number] [place] [address] August, [facility] [place] [facility] [address] [id number] [place] [address]- 9581 Jun, [facility] [place] [facility] [address] [id number] [place] [address]- 9733 Jun, [facility] [place] [facility] [address] [id number] [place] [address]- 9716 Jun, [facility] [place] [facility] [address] [id number] [place] [address]- 5709 Jun, [facility] [place] [facility] [address] [id number] [place] [address]- 9485 Jun, [facility] [place] [facility] [address] [id number] [place] [address] 0400 Jun, [facility] [place] [facility] [address] [id number], [place] [address] 07 Jun, 2012 [facility] [address] [id number] [place] [address] 3108 May, [facility] [address] [id number] [place] [address] 1976 May, [facility] [address] [id number] [place] [address]- 3442 May, [facility] [address] [id number] [place] [address]- 1216 May, [facility] [address] [id number] [place] [address]- 7908 May, [facility] [address] [id number] [place] [address]- 9664 May, [facility] [address] [id number] [place] [address]- 3647 May, [facility] [address] [id number] [place] [address]- 6593 Mar, [facility] [address] [id number] [place] [address]- 0552 Mar, [facility] [address] [id number] [place] [address]- 5507 Mar, [facility] [address] [id number], [place] [address]- 8674 Mar, [facility] [place] [facility] [address] [id number], [place] [address]- 6245 Mar, [facility] [place] [facility] [address] [id number] [place] [address]- 9576 Mar, [facility] [place] [facility] [address] [id number] [place] [address]- 8084 Mar, [facility] [place] [facility] [address] [id number] [place] [address]- 7726 Mar, [facility] [place] [facility] [address] [id number] [place] [address]- 9251 Mar, [facility] [place] [facility] [address] [id number] [place] [address]- 3344 Mar, [facility] [place] [facility] [address] [id number] [place] [address]- 5733 Mar, [facility] [place] [facility] [address] [id number] [place] [address]- 7286 Mar, [facility] [place] [facility] [address] [id number] [place] [address]- 7981 Mar, [facility] [place] [facility] [address] [id number] [place] [address], [place] [address]- 2409 Mar, [facility] [place] [facility] [address] [id number] [place] [address]- 0647 Mar, [facility] [place] [facility] [address] [id number] [place] [address]- 0248 Mar, [facility] [place] [facility] [address] [id number] [place] [address]- 2279 Mar, [facility] [place] [facility] [address] [id number] [place] [address]- 3953 Mar, [facility] [place] [facility] [address] [facility] [id number] [place] [address]- 2833 Mar, [facility] [place] [facility] [address] [id number] [place] [address]- 2897 Jan, [facility] [place] [facility] [address] [id number] [place] [address]- 5731 Jan, [facility] [place] [facility] [address] [id number] [place] [address]- 3874 Jan, [facility] [place] [facility] [address] [id number] [place] [address]- 3044 Jan, [facility] [place] [facility] [address] [id number] [place] [address]- 5044 Dec, [facility] [place] [address] [id number], [place] [address] Dec, [facility] [place] [id number], [place] [address] Dec, [facility] [place] [id number], [place] [address] Nov, [facility] [place] [id number], [place] [address]- 2846 Nov, [facility] [place] [id number], [place] [address]- 8[address] Oct, [facility] [place] [id number], [place] [address]- 3984 Oct, [facility] [place] [id number], [place] [address]- 7165 Oct, [facility] [place] [id number], [place] [address]- [address]18 Oct, [facility] [place] [address] [id number], [place] [address]- 9993 Oct, [facility] [place] [address] [id number], [place] [address]- [address] Oct, IMMUNIZATIONS No Known Immunizations SOCIAL HISTORY Never Assessed REASON FOR VISIT Refill request PLAN OF CARE VITAL SIGNS MEDICATIONS Medication Instructions Dosage Frequency Start Date End Date Duration Status Celexa 40 mg Orally Once a day 1 tablet 24h 30 days Active RESULTS No Results PROCEDURES [...]
--- OUTSIDE RECORDS SUMMARY | 2018-05-15 06:27 | XMS REPORT ---
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 Name Role Phone AMILCAR CAGE Unavailable PROBLEMS Type Condition ICD9-CM Code [id number] Code Onset Dates Condition Status SNOMED Code Problem Stress incontinence of urine N39.3 Active 93831218 Problem Neuropathy G62.9 Active 522796147 Problem Major depressive disorder, single episode, unspecified F32.9 Active 10554460 Problem Morbid (severe) obesity due to excess calories E66.01 Active 657998271 Problem Body mass index (BMI) of 45.0-49.9 in adult Z68.42 Active 534549481 Problem 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 Active 569901232 Problem Schizoaffective disorder, bipolar type F25.0 Active 97866201 Problem Primary osteoarthritis of left knee M17.12 Active 798680182 Problem Post-menopausal bleeding N95.0 Active 95866508 Problem Obstructive sleep apnea G47.33 Active 67711992 Problem Depression F32.9 Active 02072252 Problem Bipolar 1 disorder F31.9 Active 812310231 Problem Edema R60.9 Active 029907369 Problem GERD (gastroesophageal reflux disease) K21.9 Active 475799545 Problem Obesity E66.9 Active 775091157 Problem Joint pain of lower extremity M25.50 Active 85306727 Problem Environmental allergies Z91.09 Active 654145594 ALLERGIES Substance Reaction Event Type Date Status Sulfamethoxazole-Trimethoprim Unknown Drug Allergy Mar, Active Penicillin V Potassium rash Drug Allergy Mar, Active ENCOUNTERS Encounter Location Date Diagnosis [facility] [address] [facility] [id number] [address] Oct, [facility] [address] [facility] [id number], [place] [address] August, Neuropathy G62.9 [facility] [address], [place] [address] August, [facility] [id number] [place] [address] 73536- 3816 August, [facility] [id number] [place] [address] 26085- 9884 Jul, [facility] [id number] [place] [address] 19830- 4794 Jul, Primary osteoarthritis of left knee M17.12 [facility] [id number] [place] [address] 59812- 6724 Jul, Schizoaffective disorder, bipolar type F25.0 and 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 [facility] [id number] [place] [address] 64384- 1474 Jul, Prediabetes R73.03 ; Primary osteoarthritis of left knee M17.12 ; GERD (gastroesophageal reflux disease) K21.9 ; Bipolar 1 disorder F31.9 ; Depression F32.9 ; Environmental allergies Z91.09 ; Neuropathy G62.9 ; Edema R60.9 ; Body mass index (BMI) of 45.0-49.9 in adult Z68.42 and Morbid ( severe) obesity due to excess calories E66.01 [facility] [id number] [place] [address] 21175- 9977 Jul, [facility] [id number] [place] [address] 36358- 0466 Jun, [facility] [id number] [place] [address] 45637- 7283 Jun, [facility] [id number] [place] [address] 52480- 3381 Jun, Wound of right breast, initial encounter S21.001A and Prediabetes R73.03 [facility] [id number] [place] [address] 43662- 9364 Jun, [facility] [id number] [place] [address] 32287- 2935 May, GERD (gastroesophageal reflux disease) K21.9 [facility] [id number] [place] [address] 44191- 0949 May, Primary osteoarthritis of left knee M17.12 [facility] [id number] [place] [address] 05240- 8552 May, Schizoaffective disorder, bipolar type F25.0 and 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 [facility] [id number] [place] [address] 59027- 1289 May, Left medial knee pain M25.562 ; GERD (gastroesophageal reflux disease) K21.9 ; Depression F32.9 ; Neuropathy G62.9 ; Obesity E66.9 ; Prediabetes R73.03 and Edema R60.9 [facility] [id number] [place] [address] 10288- 3297 14 Mar, 2017 [facility] [id number] [place] [address] 48711- 2352 08 Mar, 2017 [place] [address] 54769- 4898 05 Mar, 2017 Post-menopausal bleeding N95.0 and BMI 50.0-59.9, adult Z68.43 [facility] [id number] [place] [address] 59736- 9904 Mar, [facility] [id number] [place] [address] 29525- 8368 27 Mar, 2017 Schizoaffective disorder, bipolar type F25.0 and 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 [facility] [id number] [place] [address] 18888- 8711 27 Mar, 2017 [facility] [id number] [place] [address] 20105- 6195 16 Mar, 2017 [facility] [id number] [place] [address] 45594- 7738 Mar, Post-menopausal bleeding N95.0 ; Screening breast examination Z12.31 ; Screen for STD (sexually transmitted disease) Z11.3 ; Obesity E66.9 ; Family history of ovarian cancer Z80.41 and Family history of cervical cancer Z80.49 [facility] [id number] [place] [address] 45011- 5727 Mar, [facility] [address] 46050- 5460 Mar, [facility] [address] 54585- 2715 Jan, Schizoaffective disorder, bipolar type F25.0 and 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 [facility] [address] 02293- 0613 Jan, Schizoaffective disorder, bipolar type F25.0 [facility] [id number] [place] [address] 18113- 8537 Jan, [facility] [address] 47766- 4479 Jan, Prediabetes R73.03 and Obesity E66.9 [facility] [id number] [place] [address] 55208- 8414 Jan, Encounter for immunization Z23 [facility] [id number] [place] [address] 39991- 9383 Jan, [facility] [id number] [place] [address] 52402- 7102 Dec, [facility] [address] 72169- 3718 Dec, [facility] [id number] [place] [address] 44943- 5653 Nov, Neuropathy G62.9 [facility] [address] 10145- 6994 Nov, [facility] [id number] [place] [address] 36842- 3627 Nov, Schizoaffective disorder, bipolar type F25.0 [facility] [id number] [place] [address] 13808- 0192 Nov, 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 and Schizoaffective disorder, bipolar type F25.0 [facility] [id number] [place] [address] 89808- 7670 Oct, Schizoaffective disorder, bipolar type F25.0 ; Other fdc (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 Z79.899 and 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 [facility] [id number] [place] [address] [id number] Oct, Dental caries K02.9 [facility] [id number] [place] [address] 26053- 6638 Sep, Neuropathy G62.9 [facility] [id number] [place] [address] 94303- 0881 Sep, [facility] [id number] [place] [address] 34274- 0137 Sep, Neuropathy G62.9 [facility] [id number] [place] [address] 03056- 4449 Jul, Schizoaffective disorder, depressive type F25.1 [facility] [id number] [place] [address] 29653- 2747 Jul, GERD (gastroesophageal reflux disease) K21.9 ; Joint pain of lower extremity M25.50 ; Environmental allergies Z91.09 ; Stress incontinence of urine N39.3 ; Neuropathy G62.9 ; Edema R60.9 and Acute pain of left knee M25.562 [facility] [address] [place] [address] 07646- 6345 Jun, [facility] [address] [id number] [id number] Jun, Dental examination Z01.20 [facility] [id number] [place] [address] 28942- 0906 Jun, [facility] [id number] [place] [address] 06027- 9518 May, [facility] [id number] [place] [address] 67638- 3807 May, Bipolar 1 disorder F31.9 ; Joint pain of lower extremity M25.50 ; Environmental allergies Z91.09 ; Stress incontinence of urine N39.3 ; Major depressive disorder, single episode, unspecified F32.9 ; Dizzy R42 ; Schizoaffective disorder, unspecified F25.9 ; Neuropathy G62.9 ; Localized edema R60.0 and GERD (gastroesophageal reflux disease) K21.9 [facility] [id number] [place] [address] 49853- 9002 May, Schizoaffective disorder, depressive type F25.1 [facility] [id number] [place] [address] 99539- 7222 May, Environmental allergies Z91.09 and Major depressive disorder , single episode, unspecified F32.9 [facility] [id number] [place] [address] 31784- 7353 Mar, Dental caries K02.9 [facility] [id number] [place] [address] 39673- 7642 Mar, Dental caries on smooth surface penetrating into pulp K02.63 [facility] [id number] [place] [address] 57405 -4161 Mar, Peripheral edema R60.9 and Dry skin L85.3 [facility] [id number] [place] [address] 01529- 0170 Mar, [facility] [id number] [place] [address] 46392- 1515 Mar, Major depressive disorder, single episode, unspecified F32.9 [facility] [id number] [place] [address] 79473- 2134 09 Mar, 2016 Dental caries K02.9 [facility] [id number] [place] [address] 47191- 3890 07 Mar, 2016 Diabetes mellitus with complication E11.8 ; Urinary frequency R35.0 ; Stress incontinence of urine N39.3 ; Joint pain of lower extremity M25.50 ; Obesity E66.9 ; Environmental allergies Z91.09 ; Depression F32.9 ; Schizoaffective disorder, unspecified F25.9 ; Vaginal discharge N89.8 and Vaginal candidiasis B37.3 [place] [facility] [address] 03085- 0148 Jan, Schizoaffective disorder, unspecified F25.9 [facility] [address] 10603- 9176 Jan, [facility] [address] 24987- 0275 30 Dec, 2015 [facility] [address] 62793- 8865 19 Dec, 2015 Dental caries K02.9 [facility] [id number] [place] [address] 99156- 7979 14 Dec, 2015 Obesity E66.9 ; Edema R60.9 ; Depression F32.9 ; Bipolar 1 disorder F31.9 ; 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 ; Environmental allergies Z91.09 ; Shortness of breath R06.02 ; Gastroesophageal reflux disease with esophagitis K21.0 ; Other chronic pain G89.29 ; Pain in right knee M25.561 ; Pain in left knee M25.562 and Encounter for immunization Z23 [facility] [id number] [place] [address] 01451- 5107 08 Nov, 2015 Dental caries K02.9 [facility] [address] 47360- 5113 Oct, Schizoaffective disorder, unspecified F25.9 [facility] [address] [place] [address] 41995- 9297 12 Oct, 2015 Dental examination Z01.20 [facility] [id number] [place] [address] 68232- 1282 20 Sep, 2015 Dental examination Z01.20 and Dental caries K02.9 [facility] [id number] [place] [address] 39455- 7967 13 Sep, 2015 [facility] [id number] [place] [address] 23972- 6888 09 Sep, 2015 [facility] [id number] [place] [address] 27808- 3951 Sep, [facility] [id number] [place] [address] 40712- 8238 Sep, Schizoaffective disorder, unspecified F25.9 [facility] [id number] [place] [address] 99104- 4321 August, Bipolar disorder, unspecified F31.9 [facility] [id number] [place] [address] 05913- 9685 Jul, Edema R60.9 and Obesity E66.9 [facility] [id number] [place] [address] 12270- 4763 Jul, Edema R60.9 [facility] [id number] [place] [address] 38714- 6536 Jul, Edema R60.9 [facility] [id number] [place] [address] 40934 -0735 Jul, Edema R60.9 [facility] [id number] [place] [address] 49337- 2421 Jul, [facility] [id number] [place] [address] 04379- 4375 Jul, [facility] [address] [place] [address] 77766- 7235 24 Jun, 2015 Environmental allergies V15.09 and Cough R05 [facility] [id number] [place] [address] 51976- 9316 17 Jun, 2015 Environmental allergies V15.09 ; Edema R60.9 and Cough R05 [facility] [address] 17065 -0243 12 Jun, 2015 Bronchospasm J98.01 [place] [facility] [address] 30012- 5690 10 Jun, 2015 [place] [address] 29093- 0048 Jun, [facility] [id number] [place] [address] 23164- 8323 08 Jun, 2015 Environmental allergies V15.09 ; Bipolar 1 disorder F31.9 ; GERD (gastroesophageal reflux disease) K21.9 ; Depression F32.9 ; Joint pain of lower extremity M25.50 ; COPD (chronic obstructive pulmonary disease) J44.9 and Screening for diabetes mellitus Z13.1 [facility] [id number] [place] [address] 30846- 6539 Jun, [facility] [id number] [place] [address] 56158- 3471 May, [facility] [address] 57559- 9816 14 May, 2015 Schizoaffective disorder, unspecified F25.9 and Bipolar 1 disorder F31.9 [facility] [address] 53096- 7247 May, [facility] [id number] [place] [address] 56881- 7207 May, URI (upper respiratory infection) J06.9 ; Environmental allergies V15.09 and Cough R05 [facility] [id number] [place] [address] 07399- 9821 Mar, [facility] [address] 70787- 6389 Mar, Vaginal discharge N89.8 [facility] [address] 62684- 2968 14 Mar, 2015 Schizoaffective disorder, unspecified F25.9 ; Major depressive disorder, single episode, unspecified F32.9 and Bipolar 1 disorder F31.9 [facility] [address] 81240- 5026 Mar, [facility] [address] 88214- 8651 Mar, Bipolar 1 disorder F31.9 [facility] [address] 07888- 3261 Jan, [facility] [address] 90193- 0436 Jan, Allergic rhinitis J30.9 and Cough R05 [facility] [address] 99013- 3665 Jan, 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 ; Bipolar 1 disorder F31.9 ; GERD ( gastroesophageal reflux disease) K21.9 ; Depression F32.9 and Joint pain of lower extremity M25.50 [facility] [address] 34169- 7101 Dec, Encounter for immunization Z23 [facility] [facility] [address] 17209- 2952 Dec, Schizoaffective disorder, unspecified 295.70 ; Pain in joint , lower leg 719.46 ; Esophageal reflux 530.81 ; Bipolar 1 disorder 296.7 ; Depression 311 ; GERD (gastroesophageal reflux disease) 530.81 and Environmental allergies V15.09 [facility] [address] [id number] Nov, Dental examination V72.2 [facility] [id number] [place] [address] 97467- 3686 Nov, Acute bronchitis 466.0 [facility] [id number] [place] [address] 48361- 0476 Nov, Schizoaffective disorder, unspecified 295.70 and Bipolar disorder, unspecified 296.80 [facility] [id number] [place] [address] [id number] Sep, Dental examination V72.2 [facility] [id number] [place] [address] [id number] August, Dental examination V72.2 [facility] [id number] [place] [address] 56793 2546 August, Schizoaffective disorder, unspecified 295.70 [facility] [id number] [place] [address] 11797- 0116 August, [facility] [id number] [place] [address] 30829 2546 August, Vomiting 787.03 [facility] [id number] [place] [address] 00614- 6456 August, Vomiting and diarrhea 787.03 and High risk medication use V58.69 [facility] [id number] [place] [address] 30823- 4876 Jul, [facility] [id number] [place] [address] 20615- 8836 Jul, [facility] [id number] [place] [address] 37800- 1056 Jul, [facility] [id number] [place] [address] 73848- 2326 Jun, [facility] [id number] [place] [address] 74652- 3476 Jun, [facility] [id number] [place] [address]- 6004 17 Jun, 2014 [facility] [place] [facility] [address] [id number] [place] [address]- 3400 17 Jun, 2014 [facility] [place] [facility] [address] [id number] [place] [address]- 9926 16 Jun, 2014 [facility] [place] [facility] [address] [id number] [place] [address]- 8856 13 Jun, 2014 [facility] [place] [facility] [address] [id number] [place] [address]- 9585 Jun, 2014 [facility] [place] [facility] [address] [id number] [place] [address]- 0594 Jun, 2014 [facility] [place] [facility] [address] [id number] [place] [address]- 5106 Jun, 2014 [facility] [place] [facility] [address] [id number] [place] [address]- 0051 Mar, [facility] [place] [facility] [address] [id number] [place] [address]- 6423 Mar, [facility] [place] [facility] [address] [id number] [place] [address]- 0033 Mar, [facility] [place] [facility] [address] [id number] [place] [address]- 4970 Mar, [facility] [place] [facility] [address] [id number] [place] [address]- 3758 Mar, [facility] [place] [facility] [address] [id number] [place] [address]- 8744 Mar, [facility] [place] [facility] [address] [id number] [place] [address]- 1354 Mar, [facility] [place] [facility] [address] [id number] [place] [address]- 2113 Mar, [facility] [place] [facility] [address] [id number] [place] [address]- 0686 Mar, [facility] [place] [facility] [address] [id number] [place] [address]- 8404 Mar, [facility] [place] [facility] [address] [id number] [place] [address]- 6284 Jan, [facility] [place] [facility] [address] [id number] [place] [address]- 0056 Jan, [facility] [place] [facility] [address] [id number] [place] 9483 Jan, [facility] [place] [facility] [address] [id number] [place] [address]- 2178 Jan, [facility] [place] [facility] [address] [id number] [place] [address]- 2099 Jan, [facility] [place] [facility] [address] [id number] [place] [address]- 4332 Jan, [facility] [place] [facility] [address] [id number] [place] [address]- 6670 Jan, [facility] [place] [facility] [address] [id number] [place] [address]- 5901 09 Jan, 2014 [facility] [place] [facility] [address] [id number] [place] [address]- 6114 19 Dec, 2013 [facility] [place] [facility] [address] [id number] [address]- 8501 19 Dec, 2013 [facility] [place] [facility] [address] [id number], [place] [address]- 5051 15 Dec, 2013 [facility] [place] [facility] [address] [id number] [place] [address]- 4390 15 Dec, 2013 [facility] [place] [facility] [address] [id number], [place] [address]- 7431 15 Dec, 2013 [facility] [place] [facility] [address] [id number], [place] [address]- 6600 15 Dec, 2013 [facility] [place] [facility] [address] [id number] [place] [address]- 5922 12 Dec, 2013 [facility] [place] [facility] [address] [id number] [place] [address]- 7494 Dec, [facility] [place] [facility] [address] [id number] [place] [address]- 2366 Dec, [facility] [place] [facility] [address] [id number] [place] [address]- 6509 Dec, [facility] [place] [facility] [address] [id number] [place] [address]- 1856 Nov, [facility] [place] [facility] [address] [id number] [place] [address]- 2748 Nov, [facility] [place] [facility] [address] [id number] [place] [address]- 2765 Nov, [facility] [place] [facility] [address] [id number] [place] [address]- 1943 Nov, [facility] [place] [facility] [address] [id number] [place] [address]- 0544 Oct, [facility] [place] [facility] [address] [id number] [place] [address]- 4906 Oct, [facility] [place] [facility] [address] [id number] [place] [address]- 2072 Oct, [facility] [place] [facility] [address] [id number] [place] [address]- 7134 Oct, [facility] [place] [facility] [address] [id number] [place] [address] Sep, [facility] [place] [facility] [address] [id number] [place] [address] Sep, [facility] [place] [facility] [address] [id number] [place] [address] Sep, [facility] [place] [facility] [address] [id number] [place] [address] Sep, [facility] [place] [facility] [address] [id number] [place] [address] Sep, [facility] [place] [facility] [address] [id number] [place] [address] Sep, [facility] [place] [facility] [address] [id number] [place] [address] Sep, [facility] [place] [facility] [address] [id number] [place] [address] Sep, [facility] [place] [facility] [address] [id number] [place] [address] August, [facility] [place] [facility] [address] [id number] [place] [address] August, [facility] [place] [facility] [address] [id number] [place] [address] Jul, [facility] [place] [facility] [address] [id number] [place] [address] Jul, [facility] [place] [facility] [address] [id number] [place] [address] Jul, [facility] [place] [facility] [address] [id number] [place] [address] Jul, [facility] [place] [facility] [address] [id number] [place] [address] Jul, [facility] [place] [facility] [address] [id number] [place] [address] Jul, [facility] [place] [facility] [address] [id number] [place] [address] Jul, [facility] [place] [facility] [address] [id number] [place] [address] Jul, [facility] [place] [facility] [address] [id number] [place] [address] Jul, [facility] [place] [facility] [address] [id number] [place] [address]- [address] 07 Jul, 2013 [facility] [place] [facility] [address] [id number] [place] [address] 27 Jun, 2013 [facility] [place] [facility] [address] [id number] [place] [address]- [address] 27 Jun, 2013 [facility] [place] [facility] [address] [id number] [place] [address]- [address] 18 Jun, 2013 [facility] [place] [facility] [address] [id number] [place] [address]- [address] 18 Jun, 2013 [facility] [place] [facility] [address] [id number] [place] [address] 17 Jun, 2013 [facility] [place] [facility] [address] [id number] [place] [address] 17 Jun, 2013 [facility] [place] [facility] [address] [id number] [place] [address] 17 Jun, 2013 [facility] [place] [facility] [address] [id number] [place] [address] 17 Jun, 2013 [facility] [place] [facility] [address] [id number] [place] [address] 14 Jun, 2013 [facility] [place] [facility] [address] [id number] [place] [address]604 14 Jun, 2013 [facility] [place] [facility] [address] [id number] [place] [address] Jun, [facility] [place] [facility] [address] [id number] [place] [address] 07 Jun, 2013 [facility] [place] [facility] [address] [id number] [place] [address] Jun, [facility] [place] [facility] [address] [id number] [place] [address] 99[address] Jun, [facility] [place] [facility] [address] [id number] [place] [address] 17 Jun, 2013 [facility] [place] [facility] [address] [id number] [place] [address] Jun, [facility] [place] [facility] [address] [id number] [place] [address] May, [facility] [place] [facility] [address] [id number] [place] [address]229 May, [facility] [place] [facility] [address] [id number] [place] [address]607 May, [facility] [place] [facility] [address] [id number] [place] [address] May, [facility] [place] [facility] [address] [id number] [place] [address]100 Mar, [facility] [place] [facility] [address] [id number] [place] [address] Mar, [facility] [place] [facility] [address] [id number] [place] [address]- 1464 Mar, [facility] [place] [facility] [address] [id number] [place] [address]- 9289 Mar, [facility] [place] [facility] [address] [id number] [place] [address] 9[address] Mar, [facility] [place] [facility] [address] [id number] [place] [address] 9998 Mar, [facility] [place] [facility] [address] [id number] [place] [address]- [address] Mar, [facility] [place] [facility] [address] [id number] [place] [address] 3864 Mar, [facility] [place] [facility] [address] [id number] [place] [address]- [address] Jan, [facility] [place] [facility] [address] [id number] [place] [address] 4359 Jan, [facility] [place] [facility] [address] [id number] [place] [address] 1815 18 Jan, 2013 [facility] [place] [facility] [address] [id number] [place] [address] 2211 Jan, [facility] [place] [facility] [address] [id number] [place] [address]- 7066 Jan, [facility] [place] [facility] [address] [id number] [place] [address] 2543 Jan, [facility] [place] [facility] [address] [id number] [place] [address] 2542 Jan, [facility] [place] [facility] [address] [id number] [place] [address]- 4195 Dec, [facility] [place] [facility] [address] [id number] [place] [address] 2601 Nov, [facility] [place] [facility] [address] [id number] [place] [address] Oct, [facility] [place] [facility] [address] [id number] [place] [address] 0039 Oct, [facility] [place] [facility] [address] [id number] [place] [address]- 1596 Sep, [facility] [place] [facility] [address] [id number] [place] [address] 8633 Sep, [facility] [place] [facility] [address] [id number], [place] [address] Sep, [facility] [place] [facility] [address] [id number], [place] [address] 254 August, [facility] [place] [facility] [address] [id number] [place] [address]- 6[address] Jun, [facility] [place] [facility] [address] [id number] [place] [address]- 4476 Jun, [facility] [place] [facility] [address] [id number] [place] [address]- 2546 15 Jun, 2012 [facility] [place] [facility] [address] [id number] [place] [address]- 2306 15 Jun, 2012 [facility] [address] [id number] [place] [address]- 7986 13 Jun, 2012 [facility] [place] [facility] [address] [id number] [place] [address]- 6936 12 Jun, 2012 [facility] [address] [id number] [place] [address]- 4826 07 Jun, 2012 [facility] [address] [id number] [place] [address]- 3891 May, [facility] [address] [id number] [place] [address] 4064 May, [facility] [address] [id number] [place] [address]- 6150 14 May, 2012 [facility] [address] [id number] [place] [address]- 6294 May, [facility] [address] [id number] [place] [address]- 5052 May, [facility] [address] [id number] [place] [address]- 8277 May, [facility] [address] [id number] [place] [address]- 2509 May, [facility] [address] [id number] [place] [address]- 3111 Mar, [facility] [address] [id number] [place] [address]- 3712 Mar, [facility] [place] [facility] [address] [id number] [place] [address]- 1866 Mar, [facility] [place] [facility] [address] [id number] [place] [address]- 2546 Mar, [facility] [place] [facility] [address] [id number] [place] [address] 7428 Mar, [facility] [place] [facility] [address] [id number] [place] [address]- 2868 Mar, [facility] [place] [facility] [address] [id number] [place] [address]- 4582 Mar, [facility] [place] [facility] [address] [facility] [id number] [place] [address]- 7142 Mar, [facility] [place] [facility] [address] [id number] [place] [address]- 8129 Mar, [facility] [place] [facility] [address] [id number] [place] [address]- 5272 Mar, [facility] [place] [facility] [address] [id number] [place] [address]- 0743 Mar, [facility] [place] [facility] [address] [id number] [place] [address]- 5679 Mar, [facility] [place] [facility] [address] [id number], [place] [address]- 4338 Mar, [facility] [place] [facility] [address] [id number] [place] [address]- 8229 Mar, [facility] [place] [facility] [address] [id number] [place] [address]- 6121 Mar, [facility] [place] [facility] [address] [id number], [place] [address]- 8534 Mar, [facility] [place] [facility] [address] [id number], [place] [address]- 9786 Mar, [facility] [place] [facility] [address] [id number] [place] [address]- 9143 Mar, [facility] [place] [facility] [address] [id number], [place] [address] 3411 Mar, [facility] [place] [facility] [address] [facility] [id number], [place] [address] Jan, [facility] [place] [facility] [address], [place] [address] Jan, [facility] [id number], [place] [address]- 9041 Jan, [facility] [address], [place] [address] 3919 Jan, [facility] [address], [place] [address] 6556 Dec, [facility] [address] [address] Dec, [facility] [id number] [place] [address] 2613 Dec, [facility] [address], [place] [address]- 0[address] Nov, [facility] [address] [address] Nov, [facility] [address], [place] [address]- 3482 Oct, [facility] [address], [place] [address] 4133 Oct, [facility] [address], [place] [address]- 6589 Oct, [facility] [address], [place] [address]- 7824 Oct, [facility] [address] [id number], [place] [address] Oct, [facility] [address] [id number] [address] Oct, IMMUNIZATIONS No Known Immunizations SOCIAL HISTORY Never Assessed REASON FOR VISIT endometrial biopsy--tcuppettRN, consent signed PLAN OF CARE Activity Details Follow Up prn Reason: VITAL SIGNS Height 63 in 2017-04-04 Weight 284 lbs 2017-04-04 Temperature 97.8 degrees Fahrenheit 2017-04-04 Heart Rate 88 bpm 2017-04-04 Respiratory Rate 20 2017-04-04 BMI 50.30 kg/m2 2017-04-04 Blood pressure systolic 110 mmHg 2017-04-04 Blood pressure diastolic 76 mmHg 2017-04-04 MEDICATIONS Medication Instructions Dosage Frequency Start Date End Date Duration Status Flonase 50 MCG/ACT Nasally Once a day 1 spray in each nostril 24h 30 Active Gabapentin 300 MG Orally Three times a day 1 capsule 8h 30 Active Meloxicam 7.5 MG Orally 2 times a day 1 tablet 12h 30 Active MetFORMIN HCl ER 500 mg Orally Once a day 1 tablet with evening meal 24h Jan, 90 days Active Albuterol Sulfate HFA 108 (90 Base) MCG/ACT Inhalation every 4 hrs 2 puffs as needed 4h May, Active Protonix 20 MG Orally Once a day 1 tablet 24h 30 Active Celexa 40 MG Orally Once a day 1 tablet 24h Active Risperdal 1 MG Orally 2 times a day 1 tablet 12h Active Albuterol Sulfate 0.63 MG/3ML Inhalation every 4 hrs 3 ml as needed 4h Jun, Active Lamictal 150 MG Orally Once a day 1 tablet 24h 26 Jan, 2017 Active Hydrochlorothiazide 50 MG TAKE ONE TABLET BY MOUTH ONCE DAILY 30 Active ZyrTEC 10 mg orally Once a day 1 tablet by Oral route 1 time per day 24h Active RESULTS Name Result Date Reference Range TEST, URINE (IN HOUSE) 2017-04-04 RESULTS Negative Lot # [id number] Control + Exp date 07/29/18 PATHOLOGY REPORT (TISSUE PATHOLOGY) 2017-04-04 CLINICAL INFORMATION PATHOLOGIST TISSUE, SPECIMEN A 2017-04-04 A SOURCE A GROSS DESCRIPTION A DIAGNOSIS PROCEDURES Procedure Date Ordered Result Body Site URINE TEST Apr 04, 2017 BIOPSY OF UTERUS LINING Apr 04, 2017 INSTRUCTIONS MEDICATIONS ADMINISTERED No Known [...]
--- OUTSIDE RECORDS SUMMARY | 2018-05-15 06:28 | XMS REPORT ---
Author CISCO Michele Organization [employer] Address Unknown Phone Unavailable Care Team Providers Care Junior Sales Assistant Name Role Phone CISCO POON CP Unavailable Allergies, Adverse Reactions, Alerts Substance Reaction Event Type Sulfamethoxazole-Trimethoprim Info Not Available Drug Allergy Penicillin V Potassium rash Drug Allergy Problems Problem Type Condition Code Onset Dates Condition Status Problem Environmental allergies V15.09 Active Problem 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 Active Problem Joint pain of lower extremity M25.50 Active Assessment Dental examination Z01.20 Active Problem Edema R60.9 Active Problem Cough R05 Active Problem Obesity E66.9 Active Problem Depression F32.9 Active Problem 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
--- OUTSIDE RECORDS SUMMARY | 2018-05-15 06:28 | XMS REPORT ---
Author Author NIYAH Romano Organization [facility] Address [address] [place] [address] Care Team Providers Care Spice Miller Name Role Phone NIYAH Romano Unavailable PROBLEMS Type Condition ICD9-CM Code [id number] Code Onset Dates Condition Status SNOMED Code Problem Stress incontinence of urine N39.3 Active 16358116 Problem Neuropathy G62.9 Active 609206925 Problem Major depressive disorder, single episode, unspecified F32.9 Active 99046046 Problem Morbid (severe) obesity due to excess calories E66.01 Active 736836898 Problem Body mass index (BMI) of 45.0-49.9 in adult Z68.42 Active 728446308 Problem 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 Active 398154213 Problem Schizoaffective disorder, bipolar type F25.0 Active 08943126 Problem Primary osteoarthritis of left knee M17.12 Active 209941047 Problem Post-menopausal bleeding N95.0 Active 40064946 Problem Depression F32.9 Active 01952157 Problem Bipolar 1 disorder F31.9 Active 957197540 Problem Edema R60.9 Active 746091016 Problem GERD (gastroesophageal reflux disease) K21.9 Active 259068475 Problem Obesity E66.9 Active 562906521 Problem Joint pain of lower extremity M25.50 Active 14393056 Problem Environmental allergies Z91.09 Active 127024557 ALLERGIES No Information ENCOUNTERS Encounter Location Date Diagnosis [facility] [address] [facility] [id number] [address] Jul, [facility] [id number] [place] [address] 54589- 6164 Jul, [facility] [address] [place] [id number] [address] Jul, Prediabetes R73.03 ; Primary osteoarthritis of left knee M17.12 ; GERD (gastroesophageal reflux disease) K21.9 ; Bipolar 1 disorder F31.9 ; Depression F32.9 ; Environmental allergies Z91.09 ; Neuropathy G62.9 ; Edema R60.9 ; Body mass index (BMI) of 45.0-49.9 in adult Z68.42 and Morbid ( severe) obesity due to excess calories E66.01 [place] [address] 24031- 9916 Jul, [place] [address] 54194- 5166 Jun, [place] [address] 09357- 9254 Jun, [place] [address] 15962- 5646 Jun, Wound of right breast, initial encounter S21.001A and Prediabetes R73.03 [place] [address] 59526- 3824 Jun, [place] [address] 50853- 1070 May, GERD (gastroesophageal reflux disease) K21.9 [place] [address] 90692- 3768 May, Primary osteoarthritis of left knee M17.12 [place] [address] [place] [id number] [place] [address] 65256- 7079 May, Schizoaffective disorder, bipolar type F25.0 and 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 [place] [address] 84273- 5419 May, Left medial knee pain M25.562 ; GERD (gastroesophageal reflux disease) K21.9 ; Depression F32.9 ; Neuropathy G62.9 ; Obesity E66.9 ; Prediabetes R73.03 and Edema R60.9 [place] [address] [place] [address] 4[address] 14 Mar, 2017 [facility] [address] [place] [id number] [place] [address] 35742- 0688 08 Mar, 2017 [facility] [id number] [place] [address] 27090- 1612 05 Mar, 2017 Post-menopausal bleeding N95.0 and BMI 50.0-59.9, adult Z68.43 [place] [address] [id number] [place] [address] 36904- 7367 Mar, [facility] [address] [place] [id number] [place] [address] 39032- 7219 Mar, Schizoaffective disorder, bipolar type F25.0 and 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 [place] [address] [place] [id number] [place] [address] 42360- 3361 Mar, [place] [address] [place] [id number] [place] [address] 03249- 2026 Mar, [place] [address] [place] [id number] [place] [address] 94528- 3719 Mar, Post-menopausal bleeding N95.0 ; Screening breast examination Z12.31 ; Screen for STD (sexually transmitted disease) Z11.3 ; Obesity E66.9 ; Family history of ovarian cancer Z80.41 and Family history of cervical cancer Z80.49 [place] [address] [address] 0[address] Mar, [facility] [address] [address] 8[address] Mar, [facility] [address] [id number] [place] [address] 39709- 4951 Jan, Schizoaffective disorder, bipolar type F25.0 and 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 [facility] [address] [address] 6278 Jan, Schizoaffective disorder, bipolar type F25.0 [facility] [address] [address]- 0965 Jan, [facility] [address] [id number] [place] [address] 34232- 0829 Jan, Prediabetes R73.03 and Obesity E66.9 [facility] [address] [address] [id number] [place] [address] 60440- 4460 Jan, Encounter for immunization Z23 [facility] [id number] [place] [address] 35562- 7124 Jan, [facility] [id number] [place] [address] 99351- 5016 Dec, [facility] [address] [id number] [place] [address] 64069- 1855 Dec, [facility] [address] [id number] [place] [address] 38943- 6639 Nov, Neuropathy G62.9 [facility] [address] [address] [id number] [place] [address] 35596- 6114 Nov, [facility] [address] [id number] [place] [address] 82153- 7431 Nov, Schizoaffective disorder, bipolar type F25.0 [facility] [id number] [place] [address] 38467- 6086 Nov, Other assisted (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 Z79.899 and Schizoaffective disorder, bipolar type F25.0 [facility] [address] [address] Oct, Schizoaffective disorder, bipolar type F25.0 ; Other assisted (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 Z79.899 and 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 [facility] [address] [id number] [id number] Oct, Dental caries K02.9 [facility] [address] [id number] [place] [address] 42392- 1559 Sep, Neuropathy G62.9 [place] [address] 96616- 1363 Sep, [place] [address] 06086- 4997 Sep, Neuropathy G62.9 [place] [address] 63170- 1410 Jul, Schizoaffective disorder, depressive type F25.1 [place] [address] 27837- 8040 Jul, GERD (gastroesophageal reflux disease) K21.9 ; Joint pain of lower extremity M25.50 ; Environmental allergies Z91.09 ; Stress incontinence of urine N39.3 ; Neuropathy G62.9 ; Edema R60.9 and Acute pain of left knee M25.562 [place] [address] 46733- 9459 Jun, [facility] [address] [id number] Jun, Dental examination Z01.20 [place] [address] [place] [id number] [place] [address] 48502- 3496 02 Jun, 2016 [place] [address] [place] [id number] [place] [address] 26772- 4528 May, [place] [address] 97245- 6431 May, Bipolar 1 disorder F31.9 ; Joint pain of lower extremity M25.50 ; Environmental allergies Z91.09 ; Stress incontinence of urine N39.3 ; Major depressive disorder, single episode, unspecified F32.9 ; Dizzy R42 ; Schizoaffective disorder, unspecified F25.9 ; Neuropathy G62.9 ; Localized edema R60.0 and GERD (gastroesophageal reflux disease) K21.9 [place] [address] [place] [id number] [place] [address] 70220- 4760 May, Schizoaffective disorder, depressive type F25.1 [place] [address] 96092- 3952 May, Environmental allergies Z91.09 and Major depressive disorder , single episode, unspecified F32.9 [place] [address] 98953- 7549 Mar, Dental caries K02.9 [place] [address] 31925- 2048 Mar, Dental caries on smooth surface penetrating into pulp K02.63 [facility] [place] [address] 86088 -9069 Mar, Peripheral edema R60.9 and Dry skin L85.3 [place] [address] 47290- 3550 Mar, [place] [address] 22138- 3578 Mar, Major depressive disorder, single episode, unspecified F32.9 [place] [address] 77176- 8014 Mar, Dental caries K02.9 [place] [address] [place] [id number] [place] [address] 80166- 8929 Mar, Diabetes mellitus with complication E11.8 ; Urinary frequency R35.0 ; Stress incontinence of urine N39.3 ; Joint pain of lower extremity M25.50 ; Obesity E66.9 ; Environmental allergies Z91.09 ; Depression F32.9 ; Schizoaffective disorder, unspecified F25.9 ; Vaginal discharge N89.8 and Vaginal candidiasis B37.3 [place] [address] [place] [id number] [place] [address] 06221- 5900 Jan, Schizoaffective disorder, unspecified F25.9 [place] [address] 78775- 7136 17 Jan, 2016 [facility] [address] [place] [id number] [place] [address] 07052- 3109 30 Dec, 2015 [place] [address] 49500- 0557 19 Dec, 2015 Dental caries K02.9 [place] [address] 77472- 1850 14 Dec, 2015 Obesity E66.9 ; Edema R60.9 ; Depression F32.9 ; Bipolar 1 disorder F31.9 ; 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 ; Environmental allergies Z91.09 ; Shortness of breath R06.02 ; Gastroesophageal reflux disease with esophagitis K21.0 ; Other chronic pain G89.29 ; Pain in right knee M25.561 ; Pain in left knee M25.562 and Encounter for immunization Z23 [place] [address] 58737- 8579 Nov, Dental caries K02.9 [place] [address] 48394- 7599 Oct, Schizoaffective disorder, unspecified F25.9 [place] [address] [place] [id number] [place] [address] 40556- 4140 12 Oct, 2015 Dental examination Z01.20 [place] [address] [place] [id number] [place] [address] 87077- 2228 Sep, Dental examination Z01.20 and Dental caries K02.9 [place] [address] [place] [id number] [place] [address] 26024- 7675 13 Sep, 2015 [place] [address] 32005- 4729 09 Sep, 2015 [place] [address] 76041- 4012 07 Sep, 2015 [place] [address] 22327- 7943 Sep, Schizoaffective disorder, unspecified F25.9 [facility] [address] [place] [id number] [place] [address] 81686- 2689 August, Bipolar disorder, unspecified F31.9 [facility] [address] [place] [id number] [place] [address] 33725- 6808 Jul, Edema R60.9 and Obesity E66.9 [facility] [address] 19801- 7010 Jul, Edema R60.9 [place] [address] 41253- 4788 Jul, Edema R60.9 [facility] [address] 84834 -7650 Jul, Edema R60.9 [place] [address] 02891- 5329 Jul, [place] [address] 81260- 8285 Jul, [place] [address] 33635- 2876 24 Jun, 2015 Environmental allergies V15.09 and Cough R05 [place] [address] [place] [id number] [place] [address] 76748- 4934 17 Jun, 2015 Environmental allergies V15.09 ; Edema R60.9 and Cough R05 [facility] [address] [id number] [place] [address] 88738 -5050 12 Jun, 2015 Bronchospasm J98.01 [place] [address] 64412- 8623 10 Jun, 2015 [place] [address] 01268- 4276 Jun, [place] [address] 98945- 4989 08 Jun, 2015 Environmental allergies V15.09 ; Bipolar 1 disorder F31.9 ; GERD (gastroesophageal reflux disease) K21.9 ; Depression F32.9 ; Joint pain of lower extremity M25.50 ; COPD (chronic obstructive pulmonary disease) J44.9 and Screening for diabetes mellitus Z13.1 [place] [address] 68931- 6469 16 Jun, 2015 [place] [address] 20283- 4733 May, [place] [address] 63893- 9339 May, Schizoaffective disorder, unspecified F25.9 and Bipolar 1 disorder F31.9 [place] [address] 13810- 4912 May, [address] 80189- 6500 May, URI (upper respiratory infection) J06.9 ; Environmental allergies V15.09 and Cough R05 [address] 05980- 7801 18 Mar, 2015 [place] [address] 22687- 1542 15 Mar, 2015 Vaginal discharge N89.[address] 76025- 5893 14 Mar, 2015 Schizoaffective disorder, unspecified F25.9 ; Major depressive disorder, single episode, unspecified F32.9 and Bipolar 1 disorder F31.[address] 74981- 9904 30 Mar, 2015 [place] [address] 81431- 1542 Mar, Bipolar 1 disorder F31.[address] 44975- 2084 Jan, [facility] [address] [place] [id number] [place] [address] 75716- 6043 Jan, Allergic rhinitis J30.9 and Cough R05 [facility] [address] [place] [id number] [place] [address] 63071- 4684 Jan, 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 ; Bipolar 1 disorder F31.9 ; GERD ( gastroesophageal reflux disease) K21.9 ; Depression F32.9 and Joint pain of lower extremity M25.50 [facility] [address] [place] [id number] [place] [address] 79242- 6944 Dec, Encounter for immunization Z23 [place] [address] 22265- 2681 Dec, Schizoaffective disorder, unspecified 295.70 ; Pain in joint , lower leg 719.46 ; Esophageal reflux 530.81 ; Bipolar 1 disorder 296.7 ; Depression 311 ; GERD (gastroesophageal reflux disease) 530.81 and Environmental allergies V15.09 [facility] [address] [id number] Nov, Dental examination V72.2 [facility] [address] 35066- 4998 Nov, Acute bronchitis 466.0 [place] [address] 46553- 8752 Nov, Schizoaffective disorder, unspecified 295.70 and Bipolar disorder, unspecified 296.80 [facility] [address] [id number] [place] [address] [id number] Sep, Dental examination V72.2 [facility] [address] [id number] August, Dental examination V72.2 [facility] [address] [place] [id number] [place] [address] 75193871- 5818 August, Schizoaffective disorder, unspecified 295.70 [facility] [address] [place] [address]- 1748 August, [facility] [address] [address]- 9592 August, Vomiting 787.03 [facility] [id number] [address]- 0701 August, Vomiting and diarrhea 787.03 and High risk medication use V58.69 [facility] [address] [id number] [address]- 5030 Jul, [facility] [address] [address]- 0415 Jul, [facility] [address] [place] [address] [id number] [place] [address] 29221- 9861 Jul, [facility] [id number] [address]- 6306 Jun, [facility] [address] [address]- 8391 Jun, [facility] [address], [place] [address]- 7152 Jun, [facility] [address] [address]- 1586 Jun, [facility] [address] [address]- 8637 16 Jun, 2014 [facility] [place] [facility] [address], [place] [address]- 8194 Jun, [facility] [address], [place] [address]- 9126 Jun, [facility] [place] [facility] [address] [address]- 4046 Jun, [facility] [address] [address]- 4995 Jun, [facility] [place] [facility] [id number] [place] [address]- 9664 Mar, [facility] [place] [facility] [address] [id number] [place] [address]- 5502 Mar, [facility] [place] [facility] [address] [id number] [place] 2982 Mar, [facility] [place] [facility] [address] [id number] [place] [address]- 2467 Mar, [facility] [place] [facility] [address] [id number] [place]- 2686 Mar, [facility] [place] [facility] [address] [id number] [place] [address]- 7243 Mar, [facility] [place] [facility] [address] [id number] [place] 7297 Mar, [facility] [place] [facility] [address] [id number] [place] [address]- 7615 Mar, [facility] [place] [facility] [address] [id number] [place] [address]- 8822 Mar, [facility] [place] [facility] [address] [id number] [place] [address]- 5105 Mar, [facility] [place] [facility] [address] [id number] [place] [address]- 9549 Jan, [facility] [place] [facility] [address] [id number] [place] [address]- 0172 31 Jan, 2014 [facility] [place] [facility] [address] [id number] [place] [address]- 2664 31 Jan, 2014 [facility] [place] [facility] [address] [id number] [place] [address]- 9310 31 Jan, 2014 [facility] [place] [facility] [address] [id number] [place] [address]- 6490 Jan, [facility] [place] [facility] [address] [id number] [place] 2659 Jan, [facility] [place] [facility] [address] [id number] [place] [address]- 2467 Jan, [facility] [place] [facility] [address] [id number] [place] [address]- 8542 Jan, [facility] [place] [facility] [address] [id number] [place] [address]- 6887 19 Dec, 2013 [facility] [place] [facility] [address] [id number] [place] [address]- 4944 19 Dec, 2013 [facility] [place] [facility] [address] [id number] [place] [address]- 7296 15 Dec, 2013 [facility] [place] [facility] [address] [id number] [place] [address]- 2326 15 Dec, 2013 [facility] [place] [facility] [address] [id number] [place] [address]- 0517 15 Dec, 2013 [facility] [place] [facility] [address] [id number] [place] [address]- 6800 15 Dec, 2013 [facility] [place] [facility] [address] [id number] [place] [address]- 6665 12 Dec, 2013 [facility] [place] [facility] [address] [id number] [place] [address]- 4338 Dec, [facility] [place] [facility] [address] [id number] [place] [address]- 9256 Dec, [facility] [place] [facility] [address] [id number] [place] [address]- 3061 Dec, [facility] [place] [facility] [address] [id number] [place] [address]- 2588 Nov, [facility] [place] [facility] [address] [id number] [place] [address]- 1225 Nov, [facility] [place] [facility] [address] [id number] [place] [address]- 3163 Nov, [facility] [place] [facility] [address] [id number] [place] [address]- 5477 Nov, [facility] [place] [facility] [address] [id number] [place] [address]- 3254 Oct, [facility] [place] [facility] [address] [id number] [place] [address]- 7290 Oct, [facility] [place] [facility] [address] [id number] [place] [address]- 4766 Oct, [facility] [place] [facility] [address] [id number] [place] [address]- 2084 Oct, [facility] [place] [facility] [address] [id number] [place] [address]- 4296 Sep, [facility] [place] [facility] [address] [id number] [place] [address]- 6196 Sep, [facility] [place] [facility] [address] [id number] [place] [address]- 2294 Sep, [facility] [place] [facility] [address] [id number] [place] [address]- 7144 Sep, [facility] [place] [facility] [address] [id number] [place] [address]- 8376 Sep, [facility] [place] [facility] [address] [id number] [place] [address]- 0434 Sep, [facility] [place] [facility] [address] [id number] [place] [address]- 6366 Sep, [facility] [place] [facility] [address] [id number] [place] [address]- 1169 Sep, [facility] [place] [facility] [address] [id number] [place] [address]- 9220 August, [facility] [place] [facility] [address] [id number] [place] [address]- 8598 August, [facility] [place] [facility] [address] [id number] [place] [address]- 2833 Jul, [facility] [place] [facility] [address] [id number] [place] [address]- 5393 30 Jul, 2013 [facility] [place] [facility] [address] [id number] [place] [address]- 9726 Jul, [facility] [place] [facility] [address] [id number] [place] [address]- 8136 Jul, [facility] [place] [facility] [address] [id number] [place] [address]- 7158 Jul, [facility] [place] [facility] [address] [id number] [place] [address]- 7387 Jul, [facility] [place] [facility] [address] [id number] [place] [address] Jul, [facility] [place] [facility] [address] [id number] [place] [address] Jul, [facility] [place] [facility] [address] [id number] [place] [address] Jul, [facility] [place] [facility] [address] [id number] [place] [address] Jul, [facility] [place] [facility] [address] [id number] [place] [address] Jun, [facility] [place] [facility] [address] [id number] [place] [address] 27 Jun, 2013 [facility] [place] [facility] [address] [id number] [place] [address] 18 Jun, 2013 [facility] [place] [facility] [address] [id number] [place] [address] 18 Jun, 2013 [facility] [place] [facility] [address] [id number] [place] [address] 17 Jun, 2013 [facility] [place] [facility] [address] [id number] [place] [address] 17 Jun, 2013 [facility] [place] [facility] [address] [id number] [place] [address] 17 Jun, 2013 [facility] [place] [facility] [address] [id number] [place] [address]- [address] 17 Jun, 2013 [facility] [place] [facility] [address] [id number] [place] [address] 14 Jun, 2013 [facility] [place] [facility] [address] [id number] [place] [address] Jun, [facility] [place] [facility] [address] [id number] [place] [address] Jun, [facility] [place] [facility] [address] [id number] [place] [address] Jun, [facility] [place] [facility] [address] [id number] [place] [address] Jun, [facility] [place] [facility] [address] [id number] [place] [address] Jun, [facility] [place] [facility] [address] [id number] [place] [address] Jun, [facility] [place] [facility] [address] [id number] [place] [address] Jun, [facility] [place] [facility] [address] [id number] [place] [address] May, [facility] [place] [facility] [address] [id number] [place] [address] May, [facility] [place] [facility] [address] [id number] [place] [address]- [address] May, [facility] [place] [facility] [address] [id number] [place] [address] May, [facility] [place] [facility] [address] [id number] [place] [address] Mar, [facility] [place] [facility] [address] [id number] [place] [address] Mar, [facility] [place] [facility] [address] [id number] [place] [address] Mar, [facility] [address] [id number] [place] [address] Mar, [facility] [place] [facility] [address] [id number] [place] [address] Mar, [facility] [address] [id number] [place] [address] Mar, [facility] [place] [facility] [address] [id number] [place] [address] Mar, [facility] [address] [id number] [place] [address] Mar, [facility] [address] [id number] [place] [address] Jan, [facility] [address] [id number] [place] [address] Jan, [facility] [address] [id number] [place] [address] Jan, [facility] [address] [id number] [place] [address] Jan, [facility] [address] [id number] [place] [address] Jan, [facility] [place] [facility] [address] [id number] [place] [address] Jan, [facility] [address] [id number] [place] [address] Jan, [facility] [place] [facility] [address] [id number] [place] [address] Dec, [facility] [place] [facility] [address] [id number] [place] [address] Nov, [facility] [place] [facility] [address] [id number] [place] [address] Oct, [facility] [address] [id number] [place] [address] 16 Oct, 2012 [facility] [place] [facility] [address] [id number] [place] [address] Sep, [facility] [place] [facility] [address] [id number] [place] [address] Sep, [facility] [place] [facility] [address] [id number] [place] [address] Sep, [facility] [place] [facility] [address] [id number] [place] [address] August, [facility] [place] [facility] [address] [id number] [place] [address] Jun, [facility] [place] [facility] [address] [id number] [place] [address] 20 Jun, 2012 [facility] [place] [facility] [address] [id number] [place] [address] 15 Jun, 2012 [facility] [place] [facility] [address] [id number] [place] [address] 15 Jun, 2012 [facility] [place] [facility] [address] [id number] [place] [address] Jun, [facility] [place] [facility] [address] [id number] [place] [address] Jun, [facility] [place] [facility] [address] [id number] [place] [address] Jun, [facility] [place] [facility] [address] [id number] [place] [address] May, [facility] [place] [facility] [address] [id number] [place] [address] May, [facility] [place] [facility] [address] [id number] [place] [address] 14 May, 2012 [facility] [place] [facility] [address] [id number] [place] [address] May, [facility] [address] [id number] [place] [address] May, [facility] [address] [id number] [place] [address] May, [facility] [address] [id number] [place] [address] May, [facility] [address] [id number] [place] [address] Mar, [facility] [address] [id number] [place] [address] Mar, [facility] [address] [id number] [place] [address] Mar, [facility] [address] [id number] [place] [address] Mar, [facility] [address] [id number] [place] [address] Mar, [facility] [address] [id number] [place] [address] Mar, [facility] [address] [facility] [id number] [place] [address] Mar, [facility] [address] [id number] [place] [address] Mar, [facility] [address] [id number] [place] [address] Mar, [facility] [address] [id number] [place] [address] Mar, [facility] [address] [id number] [place] [address] Mar, [facility] [address] [id number] [place] [address] Mar, [facility] [place] [facility] [address] [id number] [place] [address] Mar, [facility] [place] [facility] [address] [id number] [place] [address]- [address] Mar, [facility] [place] [facility] [address] [id number] [place] [address] Mar, [facility] [place] [facility] [address] [id number] [place] [address] Mar, [facility] [place] [facility] [address] [id number] [place] [address] Mar, [facility] [place] [facility] [address] [id number] [place] [address] Mar, [facility] [place] [facility] [address] [facility] [id number] [place] [address] Mar, [facility] [place] [facility] [address] [id number], [place] [address] Jan, [facility] [place] [facility] [address] [id number] [place] [address] Jan, [facility] [place] [facility] [address] [facility] [id number], [place] [address] Jan, [facility] [place] [facility] [address] [facility] [id number] [address] Jan, [facility] [place] [facility] [address] [id number], [place] [address] Dec, [facility] [place] [facility] [address] [id number], [place] [address] 18 Dec, 2011 [facility] [place] [facility] [address] [facility] [id number], [place] [address] Dec, [facility] [place] [facility] [address] [facility] [id number], [place] [address] Nov, [facility] [place] [facility] [address] [id number], [place] [address] Nov, [facility] [address] [id number], [place] [address] Oct, [facility] [id number], [place] [address] Oct, [facility] [address] [id number], [place] [address] Oct, [facility] [address] [id number], [place] [address] Oct, [facility] [address] [id number], [place] [address] Oct, [facility] [address] [id number], [place] [address] Oct, IMMUNIZATIONS No Known Immunizations SOCIAL HISTORY Never Assessed REASON FOR VISIT Repository Refill Request PLAN OF CARE VITAL SIGNS MEDICATIONS Medication Instructions Dosage Frequency Start Date End Date Duration Status Gabapentin 300 MG Orally Three times a day 1 capsule 8h May, Active RESULTS No Results PROCEDURES No Known [...]
--- OUTSIDE RECORDS SUMMARY | 2018-05-15 06:28 | XMS REPORT ---
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 Problem 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 Active Assessment Dental caries K02.9 Active Problem Obesity E66.9 Active Problem Edema R60.9 Active Problem Shortness of breath R06.02 Active Problem GERD (gastroesophageal reflux disease) K21.9 Active Problem Depression F32.9 Active Problem Cough R05 Active Problem Bipolar 1 disorder F31.9 Active Medications Medication Code System Code Instructions Start Date End Date Status Dosage Risperdal [facility] 63561601569 1 MG Orally TAKE ONE TABLET BY MOUTH TWICE DAILY Meloxicam [facility] 74503701054 7.5 MG Orally 2 times a day 1 tablet Albuterol Sulfate [facility] [address]-51 0.63 MG/3ML Inhalation every 4 hrs July 11, 2015 3 ml as needed Lamotrigine [facility] [address]-51 100 MG Orally Once a day October 06, 2015 1 tablet Flonase [facility] 0 not defined Hydrochlorothiazide [facility] 25166782369 50 mg Orally Once a day 1 tablet ZyrTEC [facility] 61989269459 10 mg orally Once a day 1 tablet by Oral route 1 time per day Protonix [facility] 69801460540 20 MG Orally Once a day 1 tablet Citalopram Hydrobromide [facility] [address]-24 40 mg Orally Once a day 1 tablet Flonase [facility] [address]-59 50 MCG/ACT Nasally Once a day October 06, 2015 1 spray in each nostril Albuterol Sulfate HFA [facility] [address]-19 108 (90 Base) MCG/ACT Inhalation every 4 hrs May 12, 2015 2 puffs as needed Promethazine VC [facility] [address]-34 6.25-5 MG/5ML Orally every 6 hrs June 5 ml as needed Benzonatate [facility] [address]-49 200 MG Orally Three times a day May 12, 2015 1 capsule as needed Procedures Procedure Coding System Code Date EXTRAC ERUPTED TOOTH/EXPOSED ROOT CPT-4 D7140 Jan 18, 2016 EXTRAC ERUPTED TOOTH/EXPOSED ROOT CPT-4 D7140 Jan 18, 2016 EXTRAC ERUPTED TOOTH/EXPOSED ROOT CPT-4 D7140 Jan 18, 2016 EXTRAC ERUPTED TOOTH/EXPOSED ROOT CPT-4 D7140 Jan 18, 2016 Vital Signs Date/Time: Jan 18, 2016 Blood Pressure Diastolic 73 mmHg Blood Pressure Systolic 119 mmHg Height 63 in Results No Known Results Summary Purpose eClinicalWorks Submission
--- OUTSIDE RECORDS SUMMARY | 2018-05-15 06:28 | XMS REPORT ---
Author Author RAY NEVAREZ [facility] Address [address] [place] [address] Care Team Providers Care Butcher Name Role Phone RAY NEVAREZ Unavailable PROBLEMS Type Condition ICD9-CM Code [id number] Code Onset Dates Condition Status SNOMED Code Problem Stress incontinence of urine N39.3 Active 97875131 Problem Neuropathy G62.9 Active 608949815 Problem Major depressive disorder, single episode, unspecified F32.9 Active 34446326 Problem Morbid (severe) obesity due to excess calories E66.01 Active 770690985 Problem Body mass index (BMI) of 45.0-49.9 in adult Z68.42 Active 188457128 Problem 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 Active 005749380 Problem Schizoaffective disorder, bipolar type F25.0 Active 61080390 Problem Primary osteoarthritis of left knee M17.12 Active 043416150 Problem Post-menopausal bleeding N95.0 Active 48540812 Problem Depression F32.9 Active 14859926 Problem Bipolar 1 disorder F31.9 Active 628407794 Problem Edema R60.9 Active 157910425 Problem GERD (gastroesophageal reflux disease) K21.9 Active 013944857 Problem Obesity E66.9 Active 380230493 Problem Joint pain of lower extremity M25.50 Active 54817767 Problem Environmental allergies Z91.09 Active 170738428 ALLERGIES No Information ENCOUNTERS Encounter Location Date Diagnosis [facility] [id number] [address] Oct, [facility] [address] [address] August, [facility] [address] [address] August, [facility] [id number] [place] [address] 79795- 4281 Jul, [facility] [address] [address] Jul, Primary osteoarthritis of left knee M17.12 [facility] [id number] [place] [address] 77786- 0531 Jul, Schizoaffective disorder, bipolar type F25.0 and 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 [facility] [id number] [place] [address] 10231- 0984 Jul, Prediabetes R73.03 ; Primary osteoarthritis of left knee M17.12 ; GERD (gastroesophageal reflux disease) K21.9 ; Bipolar 1 disorder F31.9 ; Depression F32.9 ; Environmental allergies Z91.09 ; Neuropathy G62.9 ; Edema R60.9 ; Body mass index (BMI) of 45.0-49.9 in adult Z68.42 and Morbid ( severe) obesity due to excess calories E66.01 [facility] [id number] [place] [address] 57256- 4100 Jul, [facility] [id number] [place] [address] 15171- 5449 Jun, [facility] [id number] [place] [address] 99773- 3164 Jun, [facility] [id number] [place] [address] 62673- 7663 Jun, Wound of right breast, initial encounter S21.001A and Prediabetes R73.03 [facility] [id number] [place] [address] 23908- 3675 Jun, [facility] [id number] [place] [address] 90076- 7481 May, GERD (gastroesophageal reflux disease) K21.9 [facility] [id number] [place] [address] 99205- 2956 May, Primary osteoarthritis of left knee M17.12 [facility] [id number] [place] [address] 87403- 0000 22 May, 2017 Schizoaffective disorder, bipolar type F25.0 and 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 [facility] [id number] [place] [address] 66209- 5172 04 May, 2017 Left medial knee pain M25.562 ; GERD (gastroesophageal reflux disease) K21.9 ; Depression F32.9 ; Neuropathy G62.9 ; Obesity E66.9 ; Prediabetes R73.03 and Edema R60.9 [facility] [id number] [place] [address] 31578- 3574 14 Mar, 2017 [facility] [id number] [place] [address] 06368- 4473 08 Mar, [id number] [place] [address] 51912- 6565 05 Mar, 2017 Post-menopausal bleeding N95.0 and BMI 50.0-59.9, adult Z68.43 [facility] [id number] [place] [address] 44042- 1827 Mar, [facility] [id number] [place] [address] 78316- 2566 27 Mar, 2017 Schizoaffective disorder, bipolar type F25.0 and 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 [facility] [id number] [place] [address] 36718- 6248 Mar, [facility] [id number] [place] [address] 83562- 5207 16 Mar, 2017 [facility] [id number] [place] [address] 80113- 8142 10 Mar, 2017 Post-menopausal bleeding N95.0 ; Screening breast examination Z12.31 ; Screen for STD (sexually transmitted disease) Z11.3 ; Obesity E66.9 ; Family history of ovarian cancer Z80.41 and Family history of cervical cancer Z80.49 [id number] [place] [address] 42119- 6852 Mar, [facility] [id number] [place] [address] 65917- 7261 Mar, [facility] [id number] [place] [address] 46444- 1547 Jan, Schizoaffective disorder, bipolar type F25.0 and 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 [facility] [id number] [place] [address] 77235- 8165 Jan, Schizoaffective disorder, bipolar type F25.0 [facility] [id number] [place] [address] 46265- 9437 Jan, [facility] [id number] [place] [address] 98193- 9060 Jan, Prediabetes R73.03 and Obesity E66.9 [facility] [id number] [place] [address] 34106- 9063 Jan, Encounter for immunization Z23 [facility] [id number] [place] [address] 59120- 3384 Jan, [facility] [id number] [place] [address] 78472- 5800 Dec, [facility] [id number] [place] [address] 00312- 2487 Dec, [facility] [id number] [place] [address] 51602- 2085 Nov, Neuropathy G62.9 [facility] [id number] [place] [address] 48153- 4505 Nov, [facility] [id number] [place] [address] 41055- 2717 Nov, Schizoaffective disorder, bipolar type F25.0 [facility] [id number] [place] [address] 37872- 2874 Nov, Other group home (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 Z79.899 and Schizoaffective disorder, bipolar type F25.0 [facility] [address] 67390- 9614 Oct, Schizoaffective disorder, bipolar type F25.0 ; 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 Z79.899 and 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 [facility] [address] [id number] Oct, Dental caries K02.9 [facility] [address] 07951- 8165 Sep, Neuropathy G62.9 [facility] [address] 99693- 3320 Sep, [facility] [address] 61289- 3056 Sep, Neuropathy G62.9 [facility] [id number] [place] [address] 31436- 9595 Jul, Schizoaffective disorder, depressive type F25.1 [facility] [address] 65951- 4641 Jul, GERD (gastroesophageal reflux disease) K21.9 ; Joint pain of lower extremity M25.50 ; Environmental allergies Z91.09 ; Stress incontinence of urine N39.3 ; Neuropathy G62.9 ; Edema R60.9 and Acute pain of left knee M25.562 [facility] [id number] [place] [address] 39535- 5098 Jun, [facility] [id number] [place] [address] [id number] Jun, Dental examination Z01.20 [facility] [id number] [place] [address] 68323- 7224 Jun, [facility] [address] 34693- 4243 May, [facility] [id number] [place] [address] 99914- 3787 May, Bipolar 1 disorder F31.9 ; Joint pain of lower extremity M25.50 ; Environmental allergies Z91.09 ; Stress incontinence of urine N39.3 ; Major depressive disorder, single episode, unspecified F32.9 ; Dizzy R42 ; Schizoaffective disorder, unspecified F25.9 ; Neuropathy G62.9 ; Localized edema R60.0 and GERD (gastroesophageal reflux disease) K21.9 [facility] [id number] [place] [address] 16003- 7872 May, Schizoaffective disorder, depressive type F25.1 [facility] [id number] [place] [address] 50231- 3800 May, Environmental allergies Z91.09 and Major depressive disorder , single episode, unspecified F32.9 [facility] [id number] [place] [address] 25936- 4458 Mar, Dental caries K02.9 [facility] [id number] [place] [address] 45062- 8616 Mar, Dental caries on smooth surface penetrating into pulp K02.63 [facility] [id number] [place] [address] 45628 -4422 Mar, Peripheral edema R60.9 and Dry skin L85.3 [facility] [id number] [place] [address] 84296- 5841 Mar, [facility] [id number] [place] [address] 21958- 3818 Mar, Major depressive disorder, single episode, unspecified F32.9 [facility] [id number] [place] [address] 15660- 8663 Mar, Dental caries K02.9 [facility] [address] 18927- 6687 Mar, Diabetes mellitus with complication E11.8 ; Urinary frequency R35.0 ; Stress incontinence of urine N39.3 ; Joint pain of lower extremity M25.50 ; Obesity E66.9 ; Environmental allergies Z91.09 ; Depression F32.9 ; Schizoaffective disorder, unspecified F25.9 ; Vaginal discharge N89.8 and Vaginal candidiasis B37.3 [place] [address] 26017- 7050 Jan, Schizoaffective disorder, unspecified F25.9 [facility] [facility] [address] 64765- 0742 17 Jan, 2016 [facility] [facility] [address] 22541- 5183 30 Dec, 2015 [facility] [facility] [address] 63519- 1086 19 Dec, 2015 Dental caries K02.9 [facility] [facility] [address] 67743- 3098 14 Dec, 2015 Obesity E66.9 ; Edema R60.9 ; Depression F32.9 ; Bipolar 1 disorder F31.9 ; 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 ; Environmental allergies Z91.09 ; Shortness of breath R06.02 ; Gastroesophageal reflux disease with esophagitis K21.0 ; Other chronic pain G89.29 ; Pain in right knee M25.561 ; Pain in left knee M25.562 and Encounter for immunization Z23 [facility] [address] 06023- 3065 Nov, Dental caries K02.9 [facility] [facility] [address] 58532- 8751 Oct, Schizoaffective disorder, unspecified F25.9 [facility] [facility] [address] 47538- 0616 12 Oct, 2015 Dental examination Z01.20 [facility] [facility] [address] 07297- 6430 Sep, Dental examination Z01.20 and Dental caries K02.9 [facility] [id number] [place] [address] 45326- 2804 13 Sep, 2015 [facility] [id number] [place] [address] 56283- 0755 09 Sep, 2015 [facility] [address] 04099- 2735 Sep, [facility] [id number] [place] [address] 85318- 8810 Sep, Schizoaffective disorder, unspecified F25.9 [facility] [facility] [address] 80170- 3817 August, Bipolar disorder, unspecified F31.9 [facility] [id number] [place] [address] 09685- 3973 Jul, Edema R60.9 and Obesity E66.9 [facility] [id number] [place] [address] 77133- 1641 Jul, Edema R60.9 [facility] [facility] [address] 92157- 6795 Jul, Edema R60.9 [facility] [id number] [place] [address] 52698 -6268 Jul, Edema R60.9 [facility] [id number] [place] [address] 70833- 9999 Jul, [facility] [id number] [place] [address] 77255- 9965 Jul, [facility] [id number] [place] [address] 46552- 4140 24 Jun, 2015 Environmental allergies V15.09 and Cough R05 [facility] [id number] [place] [address] 39756- 5669 17 Jun, 2015 Environmental allergies V15.09 ; Edema R60.9 and Cough R05 [facility] [id number] [place] [address] 22199 -7466 12 Jun, 2015 Bronchospasm J98.01 [facility] [id number] [place] [address] 29534- 4884 10 Jun, 2015 [facility] [address] 17406- 2385 09 Jun, 2015 [facility] [address] 35587- 3192 08 Jun, 2015 Environmental allergies V15.09 ; Bipolar 1 disorder F31.9 ; GERD (gastroesophageal reflux disease) K21.9 ; Depression F32.9 ; Joint pain of lower extremity M25.50 ; COPD (chronic obstructive pulmonary disease) J44.9 and Screening for diabetes mellitus Z13.1 [facility] [facility] [address] 86060- 5022 16 Jun, 2015 [facility] [address] 22356- 8488 May, [facility] [address] 48558- 9231 14 May, 2015 Schizoaffective disorder, unspecified F25.9 and Bipolar 1 disorder F31.9 [facility] [facility] [address] 52234- 7656 May, [facility] [address] 10361- 8350 12 May, 2015 URI (upper respiratory infection) J06.9 ; Environmental allergies V15.09 and Cough R05 [facility] [address] 63280- 8717 18 Mar, 2015 [facility] [facility] [address] 44930- 7628 15 Mar, 2015 Vaginal discharge N89.8 [facility] [address] [place] [address]- 5041 Mar, Schizoaffective disorder, unspecified F25.9 ; Major depressive disorder, single episode, unspecified F32.9 and Bipolar 1 disorder F31.9 [place] [facility] [id number] [place] [address] 27371- 7246 Mar, [facility] [address] 07932- 3035 Mar, Bipolar 1 disorder F31.9 [address] [address] 92030- 2765 Jan, [facility] [facility] [address] 01897- 7934 Jan, Allergic rhinitis J30.9 and Cough R05 [facility] [facility] [address] 28857- 3769 Jan, 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 ; Bipolar 1 disorder F31.9 ; GERD ( gastroesophageal reflux disease) K21.9 ; Depression F32.9 and Joint pain of lower extremity M25.50 [facility] [address] 44577- 9694 28 Dec, 2014 Encounter for immunization Z23 [facility] [id number] [place] [address] 09711- 1946 02 Dec, 2014 Schizoaffective disorder, unspecified 295.70 ; Pain in joint , lower leg 719.46 ; Esophageal reflux 530.81 ; Bipolar 1 disorder 296.7 ; Depression 311 ; GERD (gastroesophageal reflux disease) 530.81 and Environmental allergies V15.09 [facility] [id number] [place] [address] [id number] Nov, Dental examination V72.2 [facility] [address] 44373- 1162 Nov, Acute bronchitis 466.0 [place] [facility] [address] 17241- 1667 Nov, Schizoaffective disorder, unspecified 295.70 and Bipolar disorder, unspecified 296.80 [facility] [address] [address] Sep, Dental examination V72.2 [facility] [id number] [id number] August, Dental examination V72.2 [facility] [id number] [place] [address] 38205 2546 August, Schizoaffective disorder, unspecified 295.70 [facility] [id number] [place] [address] 41520- 2546 August, [facility] [id number] [place] [address] 88090- 2546 August, Vomiting 787.03 [facility] [id number] [place] [address] 30166 2546 August, Vomiting and diarrhea 787.03 and High risk medication use V58.69 [facility] [address] [address]- 0696 Jul, [facility] [id number] [place] [address] 67214- 8096 Jul, [facility] [address] [address]- 2886 Jul, [facility] [address] [address] 2546 Jun, [facility] [address] [address] 2546 Jun, [facility] [id number] [place] [address] 59676- 3126 Jun, [facility] [address] [address]- 2546 Jun, [facility] [id number] [place] [address] 07184- 9764 16 Jun, 2014 [facility] [place] [facility] [address] [id number] [place] [address]- 0504 Jun, 2014 [facility] [place] [facility] [address] [id number] [place] Jun, 2014 [facility] [place] [facility] [address] [facility] [id number] [place] [address]- 6886 Jun, 2014 [facility] [place] [facility] [address] [id number] [place] [address]- 3138 Jun, 2014 [facility] [place] [facility] [address] [id number] [place] [address]- 2133 Mar, [facility] [place] [facility] [address] [id number] [place] [address]- 8155 Mar, [facility] [place] [facility] [address] [id number] [place] [address]- 2375 Mar, [facility] [place] [facility] [address] [id number] [place] [address]- 1990 Mar, [facility] [place] [facility] [address] [id number] [place] [address]- 6451 Mar, [facility] [place] [facility] [address] [facility] [id number] [place] [address]- 8271 Mar, [facility] [place] [facility] [address] [facility] [id number] [place] [address]- 6249 Mar, [facility] [place] [facility] [address] [id number] [place] [address]- 8913 Mar, [facility] [place] [facility] [address] [id number] [place] [address]- 0772 Mar, [facility] [place] [facility] [address] [id number] [place] [address]- 7212 Mar, [facility] [place] [facility] [address] [facility] [id number] [place] [address]- 5073 Jan, [facility] [place] [facility] [address] [id number] [place] [address]- 1335 Jan, [facility] [place] [facility] [address] [id number] [place] [address]- 3054 Jan, [facility] [place] [facility] [address] [id number] [place] [address]- 8584 Jan, [facility] [place] [facility] [address] [id number] [place] [address]- 6666 Jan, [facility] [place] [facility] [address] [id number] [place] [address]- 5031 14 Jan, 2014 [facility] [place] [facility] [address] [id number] [place] [address]- 5174 Jan, [facility] [place] [facility] [address] [id number] [place] [address]- 3131 Jan, [facility] [place] [facility] [address] [id number] [place] [address]- 3645 19 Dec, 2013 [facility] [place] [facility] [address] [id number] [place] [address]- 1403 19 Dec, 2013 [facility] [place] [facility] [address] [id number] [place] [address]- 8517 15 Dec, 2013 [facility] [place] [facility] [address] [id number] [place] [address]- 6560 15 Dec, 2013 [facility] [place] [facility] [address] [id number] [place] [address]- 0401 15 Dec, 2013 [facility] [place] [facility] [address] [id number] [place] [address]- 2543 15 Dec, 2013 [facility] [place] [facility] [address] [id number] [place] [address]- 6767 12 Dec, 2013 [facility] [place] [facility] [address] [id number] [place] [address]- 3868 12 Dec, 2013 [facility] [place] [facility] [address] [id number] [place] [address]- 2960 Dec, [facility] [place] [facility] [address] [id number] [place] [address]- 9809 Dec, [facility] [place] [facility] [address] [id number] [place] [address]- 8838 Nov, [facility] [place] [facility] [address] [id number] [place] [address]- 4324 Nov, [facility] [place] [facility] [address] [id number] [place] [address]- 4152 Nov, [facility] [place] [facility] [address] [id number] [place] [address]- 5475 Nov, [facility] [place] [facility] [address] [id number] [place] [address]- 3460 Oct, [facility] [place] [facility] [address] [id number] [place] [address]- 9679 Oct, [facility] [place] [facility] [address] [id number] [place] [address]- 0694 Oct, [facility] [place] [facility] [address] [id number] [place] [address]- 4925 Oct, [facility] [place] [facility] [address] [id number] [place] [address]- 6418 Sep, [facility] [place] [facility] [address] [id number] [place] [address]- 3452 Sep, [facility] [place] [facility] [address] [id number] [place] [address]- 3427 Sep, [facility] [place] [facility] [address] [id number] [place] [address]- 8164 Sep, [facility] [place] [facility] [address] [id number] [place] [address] Sep, [facility] [place] [facility] [address] [id number] [place] [address] Sep, [facility] [place] [facility] [address] [id number] [place] [address] Sep, [facility] [place] [facility] [address] [id number] [place] [address] Sep, [facility] [place] [facility] [address] [id number] [place] [address] August, [facility] [place] [facility] [address] [id number] [place] [address] August, [facility] [place] [facility] [address] [id number] [place] [address] Jul, [facility] [place] [facility] [address] [id number] [place] [address] Jul, [facility] [place] [facility] [address] [id number] [place] [address] Jul, [facility] [place] [facility] [address] [id number] [place] [address] Jul, [facility] [place] [facility] [address] [id number] [place] [address] Jul, [facility] [place] [facility] [address] [id number] [place] [address] Jul, [facility] [place] [facility] [address] [id number] [place] [address] Jul, [facility] [place] [facility] [address] [id number] [place] [address] Jul, [facility] [place] [facility] [address] [id number] [place] [address] Jul, [facility] [place] [facility] [address] [id number] [place] [address] Jul, [facility] [place] [facility] [address] [id number] [place] [address] Jun, [facility] [place] [facility] [address] [id number] [place] [address] Jun, [facility] [place] [facility] [address] [id number] [place] [address] 18 Jun, 2013 [facility] [place] [facility] [address] [id number] [place] [address] 18 Jun, 2013 [facility] [place] [facility] [address] [id number] [place] [address] 17 Jun, 2013 [facility] [place] [facility] [address] [id number] [place] [address] 17 Jun, 2013 [facility] [place] [facility] [address] [id number] [place] [address] 17 Jun, 2013 [facility] [place] [facility] [address] [id number] [place] [address] 17 Jun, 2013 [facility] [place] [facility] [address] [id number] [place] [address] 14 Jun, 2013 [facility] [place] [facility] [address] [id number] [place] [address] 14 Jun, 2013 [facility] [place] [facility] [address] [id number] [place] [address] Jun, [facility] [place] [facility] [address] [id number] [place] [address] Jun, [facility] [place] [facility] [address] [address] [id number] [place] [address] Jun, [facility] [place] [facility] [address] [id number] [place] [address] Jun, [facility] [place] [facility] [address] [id number] [place] [address] Jun, [facility] [place] [facility] [address] [id number] [place] [address] Jun, [facility] [place] [facility] [address] [id number] [place] [address] May, [facility] [place] [facility] [address] [id number] [address] May, [facility] [address] [id number] [place] [address] May, [facility] [place] [facility] [address] [id number] [place] [address] May, [facility] [place] [facility] [address] [id number] [place] [address] Mar, [facility] [place] [facility] [address] [id number] [place] [address] Mar, [facility] [place] [facility] [address] [id number] [place] [address] Mar, [facility] [place] [facility] [address] [id number] [place] [address] Mar, [facility] [address] [id number] [place] [address] Mar, [facility] [place] [facility] [address] [id number] [place] [address] Mar, [facility] [place] [facility] [address] [id number] [place] [address] Mar, [facility] [place] [facility] [address] [id number] [place] [address] Mar, [facility] [place] [facility] [address] [id number] [place] [address] Jan, [facility] [place] [facility] [address] [id number] [place] [address] Jan, [facility] [place] [facility] [address] [id number] [place] [address] 18 Jan, 2013 [facility] [place] [facility] [address] [id number] [place] [address] Jan, [facility] [place] [facility] [address] [id number] [place] [address] Jan, [facility] [place] [facility] [address] [id number] [place] [address] Jan, [facility] [address] [id number] [place] [address] Jan, [facility] [place] [facility] [address] [id number] [place] [address] Dec, [facility] [place] [facility] [address] [id number] [place] [address] Nov, [facility] [place] [facility] [address] [id number] [place] [address] Oct, [facility] [place] [facility] [address] [id number] [place] [address] Oct, [facility] [place] [facility] [address] [id number] [place] [address] Sep, [facility] [place] [facility] [address] [id number] [place] [address] Sep, [facility] [address] [id number] [place] [address] Sep, [facility] [place] [facility] [address] [id number] [place] [address] August, [facility] [place] [facility] [address] [id number] [place] [address] Jun, [facility] [place] [facility] [address] [id number] [place] [address] Jun, [facility] [place] [facility] [address] [id number] [place] [address] Jun, [facility] [place] [facility] [address] [id number] [place] [address] Jun, [facility] [place] [facility] [address] [id number] [place] [address] Jun, [facility] [place] [facility] [address] [id number] [place] [address] Jun, [facility] [address] [id number] [place] [address] Jun, [facility] [address] [id number] [place] [address] May, [facility] [address] [id number] [place] [address] May, [facility] [place] [facility] [address] [id number] [place] [address]293 May, [facility] [address] [id number] [place] [address] May, [facility] [address] [id number] [place] [address] 37[address] May, [facility] [address] [id number] [place] [address] May, [facility] [address] [id number] [place] [address] May, [facility] [address] [id number] [place] [address] Mar, [facility] [address] [id number] [place] [address] Mar, [facility] [address] [id number] [place] [address] Mar, [facility] [place] [facility] [address] [id number] [place] [address] Mar, [facility] [place] [facility] [address] [id number] [place] [address] Mar, [facility] [place] [facility] [address] [id number] [place] [address] 8514 Mar, [facility] [place] [facility] [address] [id number] [place] [address] Mar, [facility] [place] [facility] [address] [id number] [place] [address]- 4[address] Mar, [facility] [place] [facility] [address] [id number] [place] [address] 267[address] Mar, [facility] [place] [facility] [address] [id number] [place] [address]2 Mar, [facility] [place] [facility] [address] [id number] [place] [address] 4[address] Mar, [facility] [place] [facility] [address] [id number] [place] [address] Mar, [facility] [place] [facility] [address] [id number] [place] [address], [place] [address] Mar, [facility] [place] [facility] [address] [id number] [place] [address] 384[address] Mar, [facility] [place] [facility] [address] [id number] [place] [address] 5081 Mar, [facility] [place] [facility] [address] [id number] [place] [address] 64[address] Mar, [facility] [place] [facility] [address] [id number] [place] [address] 94[address] Mar, [facility] [place] [facility] [address] [facility] [id number] [place] [address]65 Mar, [facility] [place] [facility] [address] [id number] [place] [address] 6[address] Mar, [facility] [place] [facility] [address] [id number] [place] [address]- 1436 Jan, [facility] [place] [facility] [address] [id number] [place] [address]- 6096 Jan, [facility] [place] [facility] [address] [facility] [id number] [place] [address]- 1527 Jan, [facility] [place] [facility] [address] [id number] [place] [address] 98[address] Jan, [facility] [address] [id number] [address] Dec, [facility] [id number] Dec, [facility] [address] [facility] [id number] [place] [address] Dec, [facility] [address] [facility] [id number] [place] [address] Nov, [facility] [address] [facility] [id number] [place] [address]- [address] Nov, [facility] [id number] [place] [address] 56[address] Oct, [facility] [id number] [address] Oct, [facility] [id number] [address]- [address] Oct, [facility] [id number] [address] 9[address] Oct, [facility] [id number] [address] Oct, [facility] [address] [id number] [address] 265[address] Oct, IMMUNIZATIONS No Known Immunizations SOCIAL HISTORY Never Assessed REASON FOR VISIT referral for mammogram PLAN OF CARE VITAL SIGNS MEDICATIONS Unknown [...]
--- OUTSIDE RECORDS SUMMARY | 2018-05-15 06:28 | XMS REPORT ---
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 Active 258945159 Problem Major depressive disorder, single episode, unspecified F32.9 Active 07298944 Problem Stress incontinence of urine N39.3 Active 83152640 Problem Acute pain of left knee M25.562 Active 38480094 Problem Neuropathy G62.9 Active 758628045 Problem Joint pain of lower extremity M25.50 Active 49811622 Problem 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
--- OUTSIDE RECORDS SUMMARY | 2018-05-15 06:29 | XMS REPORT ---
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
--- OUTSIDE RECORDS SUMMARY | 2018-05-15 06:29 | XMS REPORT ---
Author NIYAH Baumann [facility] eClinicalWorks Address Unknown Phone Unavailable Care Team Providers Care Naval Architect Specialist Name Role Phone NIYAH RODRÍGUEZ CP Unavailable Allergies, Adverse Reactions, Alerts Substance Reaction Event Type Sulfamethoxazole-Trimethoprim Info Not Available Drug Allergy Penicillin V Potassium rash Drug Allergy Problems Problem Type Condition Code Onset Dates Condition Status Problem Environmental allergies V15.09 Active Problem 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 Active Problem Joint pain of lower extremity M25.50 Active Assessment Obesity E66.9 Active Assessment Edema R60.9 Active Problem Edema R60.9 Active Problem Cough R05 Active Problem Obesity E66.9 Active Problem Depression F32.9 Active Problem 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 Problem Bipolar 1 disorder F31.9 Active Problem GERD (gastroesophageal reflux disease) K21.9 Active Medications Medication Code System Code Instructions Start Date End Date Status Dosage Citalopram Hydrobromide [facility] [address]-57 40 MG Orally Once a day 1 tablet Risperdal [facility] [address]-50 1 MG Orally TAKE ONE TABLET BY MOUTH TWICE DAILY Lamictal [facility] [address]-73 25 MG Orally Twice a day Mar 13, 2015 1 tablet Meloxicam [facility] 78983191850 7.5 MG Orally 2 times a day 1 tablet Protonix [facility] 80118242070 20 MG Orally Once a day 1 tablet Flonase ND 0 not defined Hydrochlorothiazide [facility] [address]-67 50 mg Orally Once a day August 21, 2015 1 tablet ZyrTEC [facility] 78336776600 10 mg orally Once a day 1 tablet by Oral route 1 time per day Albuterol Sulfate [facility] [address]-60 0.63 MG/3ML Inhalation every 4 hrs July 11, 2015 3 ml as needed Procedures Procedure Coding System Code Date Office Visit, Est Pt., Level 3 CPT-4 90128 August 28, 2015 Vital Signs Date/Time: August 28, 2015 Temperature 98.0 F Weight 272.8 lbs Height 63 in BMI 48.32 Index Blood Pressure Diastolic 80 mmHg Blood Pressure Systolic 118 mmHg Cardiac Monitoring Heart Rate 100 bpm Results No Known Results Summary Purpose eClinicalWorks Submission
--- OUTSIDE RECORDS SUMMARY | 2018-05-15 06:30 | XMS REPORT ---
Author NIYAH Baumann [facility] eClinicalWorks Address Unknown Phone Unavailable Care Team Providers Care Air Compressor Mechanic Name Role Phone NIYAH RODRÍGUEZ CP Unavailable Allergies, Adverse Reactions, Alerts Substance Reaction Event Type Sulfamethoxazole rash Drug Allergy Penicillin V Potassium rash Drug Allergy Problems Problem Type Condition Code Onset Dates Condition Status Assessment GERD (gastroesophageal reflux disease) K21.9 Active Assessment 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 Active Assessment Bipolar 1 disorder F31.9 Active Assessment Joint pain of lower extremity M25.50 Active Assessment Depression F32.9 Active Problem GERD (gastroesophageal reflux disease) K21.9 Active Problem Depression F32.9 Active Problem Bipolar 1 disorder F31.9 Active Problem Joint pain of lower extremity M25.50 Active Problem Environmental allergies V15.09 Active Problem 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 Problem 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 Active Medications Medication Code System Code Instructions Start Date End Date Status Dosage [place] Carbonate [facility] [address]-38 300 MG Orally twice per day July 25, 2014 3 capsule by Oral route 2 times per day Protonix [facility] [address]-18 20 MG Orally Once a day Feb 28, 2014 take 1 tablet (20 mg) by oral route once daily ZyrTEC [facility] 0 10 mg July 15, 2014 1 tablet by Oral route 1 time per day Risperdal [facility] [address]-78 1 MG Orally TAKE ONE TABLET BY MOUTH TWICE DAILY Citalopram Hydrobromide [facility] [address]-30 40 MG Orally Once a day 1 tablet Flonase [facility] [address]-02 50 mcg/actuation August 29, 2013 1 sprays by Nasal route 2 times per day in each nostril Albuterol Sulfate [facility] [address]-45 90 mcg/actuation Jun 17, 2013 2 puffs by Inhalation route every 4 hours as needed cough or wheezing Mobic [facility] [address]-27 7.5 MG Orally 2 times a day Dec 31, 2014 Jan 30, 2015 1 tablet Trazodone HCl [facility] [address]-27 50 MG Orally Once a day Dec 11, 2014 1 tablet at bedtime as needed Procedures Procedure Coding System Code Date Office Visit, Est Pt., Level 4 CPT-4 31610 Jan 30, 2015 Vital Signs Date/Time: Jan 30, 2015 Temperature 98.1 F Weight 252.2 lbs Height 63 in BMI 44.67 Index Blood Pressure Diastolic 90 mmHg Blood Pressure Systolic 125 mmHg Cardiac Monitoring Heart Rate 80 bpm Results No Known Results Summary Purpose eClinicalWorks Submission
--- OUTSIDE RECORDS SUMMARY | 2018-05-15 06:31 | XMS REPORT ---
Author Author SAKINA MONIQUE [facility] Address [address] [place] [address] Care Team Providers Care Car Wash Attendant Automatic Name Role Phone SAKINA, MONIQUE Unavailable PROBLEMS Type Condition ICD9-CM Code EPM55-FS Code Onset Dates Condition Status SNOMED Code Problem Stress incontinence of urine N39.3 Active 39663616 Problem Neuropathy G62.9 Active 947908543 Problem Major depressive disorder, single episode, unspecified F32.9 Active 73479744 Problem Morbid (severe) obesity due to excess calories E66.01 Active 795510217 Problem Body mass index (BMI) of 45.0-49.9 in adult Z68.42 Active 165352602 Problem 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 Active 385660635 Problem Schizoaffective disorder, bipolar type F25.0 Active 29737785 Problem Primary osteoarthritis of left knee M17.12 Active 256095090 Problem Post-menopausal bleeding N95.0 Active 47053032 Problem Depression F32.9 Active 55205007 Problem Bipolar 1 disorder F31.9 Active 364484579 Problem Edema R60.9 Active 924088899 Problem GERD (gastroesophageal reflux disease) K21.9 Active 483530948 Problem Obesity E66.9 Active 560951012 Problem Joint pain of lower extremity M25.50 Active 02579162 Problem Environmental allergies Z91.09 Active 794821049 ALLERGIES No Information ENCOUNTERS Encounter Location Date Diagnosis [facility] [address] [facility] [id number] [address] Jul, [facility] [address] [address] Jul, [facility] [address] [facility] [id number] [address] Jul, Prediabetes R73.03 ; Primary osteoarthritis of left knee M17.12 ; GERD (gastroesophageal reflux disease) K21.9 ; Bipolar 1 disorder F31.9 ; Depression F32.9 ; Environmental allergies Z91.09 ; Neuropathy G62.9 ; Edema R60.9 ; Body mass index (BMI) of 45.0-49.9 in adult Z68.42 and Morbid ( severe) obesity due to excess calories E66.01 [place] [address] [address]- [address] Jul, [place] [address] [address]- 0624 Jun, [place] [address] [address]12- 2524 Jun, [place] [address] [address]- 6[address] Jun, Wound of right breast, initial encounter S21.001A and Prediabetes R73.[address] [address]- [address] Jun, [place] [address] [address]39- 3677 May, GERD (gastroesophageal reflux disease) K21.[address] [address]- 2986 May, Primary osteoarthritis of left knee M17.12 [place] [address] [address]89- 2410 May, Schizoaffective disorder, bipolar type F25.0 and Methamphetamine abuse in remission F15.[address] 26159- 8372 May, Left medial knee pain M25.562 ; GERD (gastroesophageal reflux disease) K21.9 ; Depression F32.9 ; Neuropathy G62.9 ; Obesity E66.9 ; Prediabetes R73.03 and Edema R60.[address] [address]- 3196 14 Mar, 2017 [facility] [address] [address] Mar, [facility] [address] [address] 12[address] 05 Mar, 2017 Post-menopausal bleeding N95.0 and BMI 50.0-59.9, adult Z68.43 [facility] [address] [place] [id number] [place] [address] 75868- 8539 Mar, [facility] [address] [place] [address] 18975- 0070 Mar, Schizoaffective disorder, bipolar type F25.0 and 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 [place] [address] [address] 44[address] Mar, [facility] [address] [place] [id number] [address] 365[address] Mar, [facility] [address] [address] 3[address] Mar, Post-menopausal bleeding N95.0 ; Screening breast examination Z12.31 ; Screen for STD (sexually transmitted disease) Z11.3 ; Obesity E66.9 ; Family history of ovarian cancer Z80.41 and Family history of cervical cancer Z80.49 [place] [address] [address] 15[address] Mar, [facility] [address] [address]- 7468 Mar, [facility] [address] [address]- 6[address] Jan, Schizoaffective disorder, bipolar type F25.0 and 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 [facility] [address] [address]- 12[address] Jan, Schizoaffective disorder, bipolar type F25.0 [place] [address] [address]- 7583 Jan, [facility] [address] [place] [id number] [place] [address] 48658- 1372 Jan, Prediabetes R73.03 and Obesity E66.9 [facility] [address] [place] [id number] [place] [address] 23667- 9856 Jan, Encounter for immunization Z23 [facility] [address] [place] [id number] [place] [address] 06431- 6242 Jan, [facility] [address] [place] [id number] [place] [address] 27352- 5842 Dec, [facility] [address] [place] [id number] [place] [address] 13898- 1996 Dec, [facility] [address] [place] [id number] [place] [address] 37514- 8316 Nov, Neuropathy G62.9 [facility] [address] [place] [id number] [place] [address] 90193- 6212 Nov, [facility] [address] [place] [id number] [place] [address] 09664- 9229 Nov, Schizoaffective disorder, bipolar type F25.0 [facility] [address] [place] [id number] [place] [address] 90181- 4225 Nov, 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 and Schizoaffective disorder, bipolar type F25.0 [facility] [address] [place] [address] 96244- 4448 Oct, Schizoaffective disorder, bipolar type F25.0 ; Other retirement (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 Z79.899 and 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 [facility] [address] [address] Oct, Dental caries K02.9 [facility] [address] [place] [id number] [place] [address] 14861- 4047 Sep, Neuropathy G62.9 [place] [address] [place] [id number] [place] [address] 83986- 7968 Sep, [place] [address] [place] [id number] [place] [address] 857309- 4216 Sep, Neuropathy G62.9 [place] [address] [place] [id number] [place] [address] 62419- 9592 Jul, Schizoaffective disorder, depressive type F25.1 [place] [address] [place] [id number] [place] [address] 96229- 8155 Jul, GERD (gastroesophageal reflux disease) K21.9 ; Joint pain of lower extremity M25.50 ; Environmental allergies Z91.09 ; Stress incontinence of urine N39.3 ; Neuropathy G62.9 ; Edema R60.9 and Acute pain of left knee M25.562 [place] [address] [place] [id number] [place] [address] 14306- 7205 Jun, [facility] [address] [id number] Jun, Dental examination Z01.20 [place] [address] [place] [id number] [place] [address] 30154- 4298 Jun, [place] [address] [place] [id number] [place] [address] 80684- 8584 May, [place] [address] [place] [id number] [place] [address] 07278- 7691 May, Bipolar 1 disorder F31.9 ; Joint pain of lower extremity M25.50 ; Environmental allergies Z91.09 ; Stress incontinence of urine N39.3 ; Major depressive disorder, single episode, unspecified F32.9 ; Dizzy R42 ; Schizoaffective disorder, unspecified F25.9 ; Neuropathy G62.9 ; Localized edema R60.0 and GERD (gastroesophageal reflux disease) K21.9 [place] [address] [place] [id number] [place] [address] 50788- 0883 May, Schizoaffective disorder, depressive type F25.1 [place] [address] [place] [id number] [place] [address] 76902- 9091 May, Environmental allergies Z91.09 and Major depressive disorder , single episode, unspecified F32.9 [place] [address] 81045- 8163 Mar, Dental caries K02.9 [place] [address] 164813- 1031 Mar, Dental caries on smooth surface penetrating into pulp K02.63 [facility] [place] [address] [address] -[address]65 Mar, Peripheral edema R60.9 and Dry skin L85.3 [place] [address] 11824- 7684 Mar, [place] [address] 01321- 6344 Mar, Major depressive disorder, single episode, unspecified F32.9 [place] [address] 43626- 7249 Mar, Dental caries K02.9 [place] [address] [place] [id number] [place] [address] 15839- 3167 Mar, Diabetes mellitus with complication E11.8 ; Urinary frequency R35.0 ; Stress incontinence of urine N39.3 ; Joint pain of lower extremity M25.50 ; Obesity E66.9 ; Environmental allergies Z91.09 ; Depression F32.9 ; Schizoaffective disorder, unspecified F25.9 ; Vaginal discharge N89.8 and Vaginal candidiasis B37.3 [place] [address] [place] [id number] [place] [address] 45947- 1402 Jan, Schizoaffective disorder, unspecified F25.9 [place] [address] 65976- 5270 Jan, [place] [address] [place] [id number] [place] [address] 23212- 0172 30 Dec, 2015 [place] [address] 41432- 6984 19 Dec, 2015 Dental caries K02.9 [place] [address] 78627- 7635 14 Dec, 2015 Obesity E66.9 ; Edema R60.9 ; Depression F32.9 ; Bipolar 1 disorder F31.9 ; 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 ; Environmental allergies Z91.09 ; Shortness of breath R06.02 ; Gastroesophageal reflux disease with esophagitis K21.0 ; Other chronic pain G89.29 ; Pain in right knee M25.561 ; Pain in left knee M25.562 and Encounter for immunization Z23 [place] [address] 32786- 8545 Nov, Dental caries K02.9 [place] [address] 37603- 2643 Oct, Schizoaffective disorder, unspecified F25.9 [place] [address] 75299- 5835 Oct, Dental examination Z01.20 [place] [address] [place] [id number] [place] [address] 95910- 0019 Sep, Dental examination Z01.20 and Dental caries K02.9 [place] [address] [place] [id number] [place] [address] 43712- 9063 13 Sep, 2015 [place] [address] 46117- 1540 09 Sep, 2015 [place] [address] [place] [id number] [place] [address] 86473- 6963 07 Sep, 2015 [place] [address] 86592- 1170 Sep, Schizoaffective disorder, unspecified F25.9 [facility] [address] [place] [id number] [place] [address] 28987- 3200 August, Bipolar disorder, unspecified F31.9 [facility] [address] [place] [id number] [place] [address] 54396- 6676 Jul, Edema R60.9 and Obesity E66.9 [facility] [address] 86307- 2523 Jul, Edema R60.9 [facility] [address] 69838- 7336 Jul, Edema R60.9 [facility] [address] 10599 -7513 Jul, Edema R60.9 [facility] [address] 54574- 6007 Jul, [facility] [address] [place] [id number] [place] [address] 64808- 6166 Jul, [facility] [address] 72827- 3184 24 Jun, 2015 Environmental allergies V15.09 and Cough R05 [facility] [address] [place] [id number] [place] [address] 98594- 3728 Jun, Environmental allergies V15.09 ; Edema R60.9 and Cough R05 [facility] [address] [place] [id number] [place] [address] 34177 -7119 12 Jun, 2015 Bronchospasm J98.01 [facility] [address] 91309- 3959 10 Jun, 2015 [facility] [address] 33491- 1536 Jun, [facility] [address] [place] [id number] [place] [address] 03149- 0911 08 Mar, 2016 Environmental allergies V15.09 ; Bipolar 1 disorder F31.9 ; GERD (gastroesophageal reflux disease) K21.9 ; Depression F32.9 ; Joint pain of lower extremity M25.50 ; COPD (chronic obstructive pulmonary disease) J44.9 and Screening for diabetes mellitus Z13.1 [place] [address] [place] [id number] [place] [address] 13662- 9896 16 Jun, 2015 [place] [address] 82427- 5947 May, [place] [address] 52452- 4986 May, Schizoaffective disorder, unspecified F25.9 and Bipolar 1 disorder F31.9 [place] [address] 00750- 9767 May, [address] 94974- 5782 May, URI (upper respiratory infection) J06.9 ; Environmental allergies V15.09 and Cough R05 [place] [address] 27088- 8211 18 Mar, 2015 [place] [address] 83574- 5776 Mar, Vaginal discharge N89.8 [place] [address] 42330- 7207 14 Mar, 2015 Schizoaffective disorder, unspecified F25.9 ; Major depressive disorder, single episode, unspecified F32.9 and Bipolar 1 disorder F31.9 [place] [address] 75736- 1287 Mar, [place] [address] 00460- 5392 Mar, Bipolar 1 disorder F31.9 [place] [address] 71475- 3093 Jan, [facility] [address] [place] [id number] [place] [address] 04794- 0443 Jan, Allergic rhinitis J30.9 and Cough R05 [place] [address] [place] [id number] [place] [address] 34571- 5084 Jan, 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 ; Bipolar 1 disorder F31.9 ; GERD ( gastroesophageal reflux disease) K21.9 ; Depression F32.9 and Joint pain of lower extremity M25.50 [place] [address] 80470- 3214 Dec, Encounter for immunization Z23 [place] [address] 25568- 2727 Dec, Schizoaffective disorder, unspecified 295.70 ; Pain in joint , lower leg 719.46 ; Esophageal reflux 530.81 ; Bipolar 1 disorder 296.7 ; Depression 311 ; GERD (gastroesophageal reflux disease) 530.81 and Environmental allergies V15.09 [facility] [address] [place] [id number] [place] [address] [id number] Nov, Dental examination V72.2 [place] [address] 04192- 2392 Nov, Acute bronchitis 466.0 [place] [address] 18023- 2707 Nov, Schizoaffective disorder, unspecified 295.70 and Bipolar disorder, unspecified 296.80 [facility] [address] [place] [id number] [place] [address] [id number] Sep, Dental examination V72.2 [facility] [address] [place] [id number] [place] [address] [id number] August, Dental examination V72.2 [facility] [address] 59302389- 8557 August, Schizoaffective disorder, unspecified 295.70 [facility] [address] 98455- 6704 August, [facility] [address] [address]- 4891 August, Vomiting 787.03 [facility] [address] [address]- 4166 August, Vomiting and diarrhea 787.03 and High risk medication use V58.69 [facility] [address] [address]- 4350 Jul, [facility] [address] [address]- 3173 Jul, [facility] [address] [place] [address] 13004- 5087 Jul, [facility] [address] [place] [address] 46700- 9174 Jun, [facility] [address] [place] [address] 22112- 3598 Jun, [facility] [address] [address]- 4170 Jun, [facility] [address] [address]- 1760 Jun, [facility] [address] [address]- 9502 16 Jun, 2014 [facility] [address] [address]- 8658 Jun, [facility] [address] [place] [id number] 8906 Jun, [facility] [address] 4228 Jun, [facility] [address] [address]- 0881 Jun, [facility] [address]- 1360 Mar, [facility] [place] [facility] [address] [id number] [place] [address]- 9368 Mar, [facility] [place] [facility] [address] [id number] [place]- 1098 Mar, [facility] [place] [facility] [address] [id number] [place]- 6093 Mar, [facility] [place] [facility] [address] [id number] [place] [address]- 5813 Mar, [facility] [place] [facility] [address] [id number] [place] 2492 Mar, [facility] [place] [facility] [address] [id number] [place] [address]- 2330 Mar, [facility] [place] [facility] [address] [id number] [place] [address]- 3820 Mar, [facility] [place] [facility] [address] [id number] [place] [address]- 1443 Mar, [facility] [place] [facility] [address] [id number] [place] [address]- 2343 Mar, [facility] [place] [facility] [address] [facility] [id number] [place] [address]- 4731 Jan, [facility] [place] [facility] [address] [id number] [place] [address]- 1614 31 Jan, 2014 [facility] [place] [facility] [address] [id number] [place] [address]- 1055 31 Jan, 2014 [facility] [place] [facility] [address] [id number] [place] [address]- 4786 31 Jan, 2014 [facility] [place] [facility] [address] [id number] [place] [address]- 5173 Jan, [facility] [place] [facility] [address] [id number] [place]- 7982 14 Jan, 2014 [facility] [place] [facility] [address] [id number] [place] [address]- 6141 Jan, [facility] [place] [facility] [address] [id number] [place] [address]- 2932 Jan, [facility] [place] [facility] [address] [id number] [place] [address]- 0447 19 Dec, 2013 [facility] [place] [facility] [address] [id number] [place] [address]- 8485 19 Dec, 2013 [facility] [place] [facility] [address] [id number] [place] [address]- 0158 15 Dec, 2013 [facility] [place] [facility] [address] [id number] [place] [address]- 3403 15 Dec, 2013 [facility] [place] [facility] [address] [id number] [place] [address]- 3576 15 Dec, 2013 [facility] [place] [facility] [address] [id number] [place] [address]- 7759 15 Dec, 2013 [facility] [place] [facility] [address] [id number] [place] [address]- 6352 Dec, [facility] [place] [facility] [address] [id number] [place] [address]- 8664 Dec, [facility] [place] [facility] [address] [id number] [place] [address]- 0704 Dec, [facility] [place] [facility] [address] [id number] [place] [address]- 0952 Dec, [facility] [place] [facility] [address] [id number] [place] [address]- 9303 Nov, [facility] [place] [facility] [address] [id number] [place] [address]- 6665 Nov, [facility] [place] [facility] [address] [id number] [place] [address]- 8815 Nov, [facility] [place] [facility] [address] [id number] [place] [address]- 9353 Nov, [facility] [place] [facility] [address] [id number] [place] [address]- 4223 Oct, [facility] [place] [facility] [address] [id number] [place] [address]- 6989 Oct, [facility] [place] [facility] [address] [id number] [place] [address]- 1028 Oct, [facility] [place] [facility] [address] [id number] [place] [address]- 8841 Oct, [facility] [place] [facility] [address] [id number] [place] [address]- 3286 Sep, [facility] [place] [facility] [address] [id number] [place] [address]- 4542 Sep, [facility] [place] [facility] [address] [id number] [place] [address]- 1888 Sep, [facility] [place] [facility] [address] [id number] [place] [address]- 8498 Sep, [facility] [place] [facility] [address] [id number] [place] [address]- 1803 Sep, [facility] [place] [facility] [address] [id number] [place] [address]- 7821 Sep, [facility] [place] [facility] [address] [id number] [place] [address]- 7029 Sep, [facility] [place] [facility] [address] [id number] [place] [address]- 1522 Sep, [facility] [place] [facility] [address] [id number] [place] [address]- 4590 August, [facility] [place] [facility] [address] [id number] [place] [address]- 9392 August, [facility] [place] [facility] [address] [id number] [place] [address]- 7967 Jul, [facility] [place] [facility] [address] [id number] [place] [address]- 7282 30 Jul, 2013 [facility] [address] [id number] [place] [address] Jul, [facility] [place] [facility] [address] [id number] [place] [address] Jul, [facility] [address] [id number] [place] [address] Jul, [facility] [place] [facility] [address] [id number] [place] [address] Jul, [facility] [address] [id number] [place] [address] Jul, [facility] [address] [id number] [place] [address] Jul, [facility] [address] [id number] [place] [address] Jul, [facility] [address] [id number] [place] [address] Jul, [facility] [place] [facility] [address] [id number] [place] [address] Jun, [facility] [address] [id number] [place] [address] 27 Jun, 2013 [facility] [place] [facility] [address] [id number] [place] [address] 18 Jun, 2013 [facility] [place] [facility] [address] [id number] [place] [address] 18 Jun, 2013 [facility] [place] [facility] [address] [id number] [place] [address] 17 Jun, 2013 [facility] [place] [facility] [address] [id number] [place] [address] 17 Jun, 2013 [facility] [place] [facility] [address] [id number] [place] [address] 17 Jun, 2013 [facility] [place] [facility] [address] [id number] [place] [address] 17 Jun, 2013 [facility] [place] [facility] [address] [id number] [place] [address] 14 Jun, 2013 [facility] [place] [facility] [address] [id number] [place] [address] 14 Jun, 2013 [facility] [place] [facility] [address] [id number] [place] [address] Jun, [facility] [place] [facility] [address] [id number] [place] [address] Jun, [facility] [place] [facility] [address] [id number] [place] [address] Jun, [facility] [place] [facility] [address] [id number] [place] [address] Jun, [facility] [place] [facility] [address] [id number] [place] [address] Jun, [facility] [place] [facility] [address] [id number] [place] [address] Jun, [facility] [place] [facility] [address] [id number] [place] [address] May, [facility] [place] [facility] [address] [id number] [place] [address] May, [facility] [place] [facility] [address] [id number] [place] [address] May, [facility] [place] [facility] [address] [id number] [place] [address] May, [facility] [place] [facility] [address] [id number] [place] [address] Mar, [facility] [place] [facility] [address] [id number] [place] [address] Mar, [facility] [place] [facility] [address] [id number] [place] [address] Mar, [facility] [address] [id number] [place] [address] Mar, [facility] [place] [facility] [address] [id number] [place] [place] [address] Mar, [facility] [place] [facility] [address] [id number] [place] [address] Mar, [facility] [place] [facility] [address] [id number] [place] [address] Mar, [facility] [place] [facility] [address] [id number] [place] [address] Mar, [facility] [place] [facility] [address] [id number] [place] [address] Jan, [facility] [place] [facility] [address] [id number] [place] [address] Jan, [facility] [place] [facility] [address] [id number] [place] [address] Jan, [facility] [place] [facility] [address] [id number] [place] [address] Jan, [facility] [place] [facility] [address] [id number] [place] [address] Jan, [facility] [place] [facility] [address] [id number] [place] [address] Jan, [facility] [place] [facility] [address] [id number] [place] [address] 25[address] Jan, [facility] [place] [facility] [address] [id number] [place] [address] Dec, [facility] [place] [facility] [address] [id number] [place] [address] Nov, [facility] [place] [facility] [address] [id number] [place] [address] Oct, [facility] [place] [facility] [address] [id number] [place] [address] 16 Oct, 2012 [facility] [place] [facility] [address] [id number] [place] [address] Sep, [facility] [place] [facility] [address] [id number] [place] [address] Sep, [facility] [place] [facility] [address] [id number] [place] [address] Sep, [facility] [place] [facility] [address] [id number] [place] [address] August, [facility] [place] [facility] [address] [id number] [place] [address] Jun, [facility] [place] [facility] [address] [id number] [place] [address] Jun, [facility] [place] [facility] [address] [id number] [place] [address] 15 Jun, 2012 [facility] [place] [facility] [address] [id number] [place] [address] Jun, [facility] [place] [facility] [address] [id number] [place] [address] Jun, [facility] [place] [facility] [address] [id number] [place] [address] Jun, [facility] [place] [facility] [address] [id number] [place] [address] Jun, [facility] [place] [facility] [address] [id number] [place] [address] 254 May, [facility] [place] [facility] [address] [id number] [place] [address] 2546 May, [facility] [place] [facility] [address] [id number] [place] [address]47 14 May, 2012 [facility] [place] [facility] [address] [id number] [place] [address] May, [facility] [address] [id number] [place] [address] May, [facility] [address] [id number] [place] [address] May, [facility] [address] [id number] [place] [address] May, [facility] [address] [id number] [place] [address] Mar, [facility] [address] [id number] [place] [address] Mar, [facility] [address] [id number] [place] [address] Mar, [facility] [address] [id number] [place] [address] Mar, [facility] [address] [id number] [place] [address] Mar, [facility] [address] [id number] [place] [address] Mar, [facility] [address] [id number] [place] [address] Mar, [facility] [address] [id number] [place] [address] 47[address] Mar, [facility] [place] [facility] [address] [id number] [place] [address] Mar, [facility] [place] [facility] [address] [id number] [place] [address] Mar, [facility] [place] [facility] [address] [id number] [place] [address] Mar, [facility] [address] [id number] [place] [address] Mar, [facility] [place] [facility] [address] [id number] [place] [address] Mar, [facility] [place] [facility] [address] [id number] [place] [address] Mar, [facility] [place] [facility] [address] [id number] [place] [address]- [address] Mar, [facility] [place] [facility] [address] [id number] [place] [address] Mar, [facility] [place] [facility] [address] [id number] [place] [address]- [address] Mar, [facility] [place] [facility] [address] [id number] [place] [address] Mar, [facility] [place] [facility] [address] [id number] [place] [address]- [address] Mar, [facility] [place] [facility] [address] [id number] [place] [address] Jan, [facility] [place] [facility] [address] [id number] [place] [address] Jan, [facility] [place] [facility] [address] [id number] [place] [address]- 15[address] Jan, [facility] [place] [facility] [address] [id number] [place] [address] 49[address] Jan, [facility] [place] [facility] [address] [id number] [place] [address]- [address] Dec, [facility] [place] [facility] [address] [id number] [place] [address]- [address] 18 Dec, 2011 [facility] [place] [facility] [address] [id number] [place] [address] 06 Dec, 2011 [facility] [place] [facility] [address] [id number] [place] [address] Nov, [facility] [place] [facility] [address] [id number] [place] [address] Nov, [facility] [address] [facility] [id number] [address] Oct, [facility] [id number] [address] Oct, [facility] [address] [id number] [address] Oct, [facility] [id number] [address] Oct, [facility] [address] [id number] [address] Oct, [facility] [address] [id number] [address] Oct, IMMUNIZATIONS No Known Immunizations SOCIAL HISTORY Never Assessed REASON FOR VISIT med refill PLAN OF CARE VITAL SIGNS MEDICATIONS Medication Instructions Dosage Frequency Start Date End Date Duration Status Risperdal 1 MG Orally 2 times a day 1 tablet 12h 30 days Active RESULTS No Results PROCEDURES [...]
--- OUTSIDE RECORDS SUMMARY | 2018-05-15 06:33 | XMS REPORT ---
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 Assessment Schizoaffective disorder, unspecified F25.9 Active Problem Joint pain of lower extremity M25.50 Active Problem Shortness of breath R06.02 Active Problem Obesity E66.9 Active Problem Environmental allergies Z91.09 Active Problem Bipolar 1 disorder F31.9 Active Problem GERD (gastroesophageal reflux disease) K21.9 Active Problem Edema R60.9 Active Problem Cough R05 Active Medications Medication Code System Code Instructions Start Date End Date Status Dosage Citalopram Hydrobromide [facility] [address]-21 40 mg Orally Once a day 1 tablet Flonase ND 0 not defined Albuterol Sulfate [facility] [address]-54 0.63 MG/3ML Inhalation every 4 hrs July 11, 2015 3 ml as needed Promethazine VC [facility] [address]-27 6.25-5 MG/5ML Orally every 6 hrs June 5 ml as needed Risperdal [facility] 58725257056 1 MG Orally TAKE ONE TABLET BY MOUTH TWICE DAILY Meloxicam [facility] 33619203266 7.5 MG Orally 2 times a day 1 tablet Hydrochlorothiazide [facility] [address]-23 50 mg Orally Once a day 1 tablet Flonase [facility] [address]-00 50 MCG/ACT Nasally Once a day October 06, 2015 1 spray in each nostril Protonix [facility] 03868583973 20 MG Orally Once a day 1 tablet ZyrTEC [facility] 54090821235 10 mg orally Once a day 1 tablet by Oral route 1 time per day Benzonatate [facility] [address]-57 200 MG Orally Three times a day May 12, 2015 1 capsule as needed Lamotrigine [facility] 05862580288 100 MG Orally Once a day 1 tablet Albuterol Sulfate HFA [facility] [address]-71 108 (90 Base) MCG/ACT Inhalation every 4 hrs May 12, 2015 2 puffs as needed Procedures Procedure Coding System Code Date Office Visit, Est Pt., Level 3 CPT-4 84765 Feb 18, 2016 Vital Signs Date/Time: Feb 18, 2016 Cardiac Monitoring Heart Rate 80 bpm Weight 278.4 lbs Height 63 in BMI 49.31 Index Blood Pressure Diastolic 72 mmHg Blood Pressure Systolic 111 mmHg Results No Known Results Summary Purpose [employer] Submission
--- OUTSIDE RECORDS SUMMARY | 2018-05-15 06:33 | XMS REPORT ---
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 Name Role Phone RAY NEVAREZ Unavailable PROBLEMS Type Condition ICD9-CM Code BNO16-FS Code Onset Dates Condition Status SNOMED Code Problem Stress incontinence of urine N39.3 Active 85316578 Problem Neuropathy G62.9 Active 133239631 Problem Major depressive disorder, single episode, unspecified F32.9 Active 00933548 Problem Morbid (severe) obesity due to excess calories E66.01 Active 976810171 Problem Body mass index (BMI) of 45.0-49.9 in adult Z68.42 Active 214359531 Problem 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 Active 527755031 Problem Schizoaffective disorder, bipolar type F25.0 Active 72923858 Problem Primary osteoarthritis of left knee M17.12 Active 858610534 Problem Post-menopausal bleeding N95.0 Active 20510188 Problem Obstructive sleep apnea G47.33 Active 45061508 Problem Depression F32.9 Active 49585128 Problem Bipolar 1 disorder F31.9 Active 303585798 Problem Edema R60.9 Active 003171986 Problem GERD (gastroesophageal reflux disease) K21.9 Active 295346139 Problem Obesity E66.9 Active 966897872 Problem Joint pain of lower extremity M25.50 Active 53834788 Problem Environmental allergies Z91.09 Active 365785598 ALLERGIES Substance Reaction Event Type Date Status Sulfamethoxazole-Trimethoprim Unknown Drug Allergy May, Active Penicillin V Potassium rash Drug Allergy May, Active ENCOUNTERS Encounter Location Date Diagnosis [facility] [address] [facility] [id number] [address] Oct, [facility] [address] [facility] [id number] [place] [address] Oct, [facility] [id number] [place] [address] 31421- 5233 August, Neuropathy G62.9 [place] [address] 12000- 9620 August, [place] [id number] [place] [address] 53377- 0600 August, [place] [id number] [place] [address] 25489- 0720 Jul, [place] [id number] [place] [address] 36373- 6919 Jul, Primary osteoarthritis of left knee M17.12 [place] [address] 23042- 2539 Jul, Schizoaffective disorder, bipolar type F25.0 and 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 [place] [address] 28789- 2982 Jul, Prediabetes R73.03 ; Primary osteoarthritis of left knee M17.12 ; GERD (gastroesophageal reflux disease) K21.9 ; Bipolar 1 disorder F31.9 ; Depression F32.9 ; Environmental allergies Z91.09 ; Neuropathy G62.9 ; Edema R60.9 ; Body mass index (BMI) of 45.0-49.9 in adult Z68.42 and Morbid ( severe) obesity due to excess calories E66.01 [facility] [place] [id number] [place] [address] 18804- 2928 Jul, [facility] [place] [id number] [place] [address] 58161- 0273 Jun, [place] [address] 26925- 2530 Jun, [place] [id number] [place] [address] 76716- 6827 Jun, Wound of right breast, initial encounter S21.001A and Prediabetes R73.03 [facility] [id number] [place] [address] 94368- 6824 Jun, [facility] [place] [id number] [place] [address] 37804- 7417 May, GERD (gastroesophageal reflux disease) K21.9 [place] [id number] [place] [address] 43442- 5034 May, Primary osteoarthritis of left knee M17.12 [place] [address] 58668- 6034 May, Schizoaffective disorder, bipolar type F25.0 and 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 [place] [address] 10169- 7148 May, Left medial knee pain M25.562 ; GERD (gastroesophageal reflux disease) K21.9 ; Depression F32.9 ; Neuropathy G62.9 ; Obesity E66.9 ; Prediabetes R73.03 and Edema R60.9 [facility] [id number] [place] [address] 81966- 0581 Mar, [place] [address] 97186- 2651 Mar, [place] [id number] [place] [address] 29515- 5319 05 Mar, 2017 Post-menopausal bleeding N95.0 and BMI 50.0-59.9, adult Z68.43 [place] [id number] [place] [address] 83606- 7981 Mar, [place] [id number] [place] [address] 24687- 2493 Mar, Schizoaffective disorder, bipolar type F25.0 and 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 [id number] [place] [address] 60613- 5712 Mar, Post-menopausal bleeding N95.0 ; Screening breast examination Z12.31 ; Screen for STD (sexually transmitted disease) Z11.3 ; Obesity E66.9 ; Family history of ovarian cancer Z80.41 and Family history of cervical cancer Z80.49 [place] [id number] [place] [address] 34405- 1344 Mar, [place] [id number] [place] [address] 61143- 2107 Mar, [place] [id number] [place] [address] 17988- 8245 Jan, Schizoaffective disorder, bipolar type F25.0 and 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 [id number] [place] [address] 73529- 6876 Jan, [facility] [address] 71943- 3509 Dec, [facility] [id number] [place] [address] 19602- 9404 Dec, [facility] [id number] [place] [address] 88210- 0566 Nov, Neuropathy G62.9 [facility] [id number] [place] [address] 31433- 0982 Nov, [facility] [address] 48768- 4667 Nov, Schizoaffective disorder, bipolar type F25.0 [facility] [address] 39134- 9680 Nov, Other detention (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 Z79.899 and Schizoaffective disorder, bipolar type F25.0 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 [id number] [place] [address] 18919- 7972 Sep, Neuropathy G62.9 [facility] [address] 53692- 2748 Sep, [facility] [id number] [place] [address] 00798- 3741 Sep, Neuropathy G62.9 [facility] [id number] [place] [address] 37160- 6471 Jul, Schizoaffective disorder, depressive type F25.1 [facility] [id number] [place] [address] 97930- 5408 Jul, GERD (gastroesophageal reflux disease) K21.9 ; Joint pain of lower extremity M25.50 ; Environmental allergies Z91.09 ; Stress incontinence of urine N39.3 ; Neuropathy G62.9 ; Edema R60.9 and Acute pain of left knee M25.562 [facility] [address] [place] [address]- 2980 28 Jun, 2016 [facility] [id number] [place] [address] [id number] Jun, Dental examination Z01.20 [facility] [id number] [place] [address] 56339- 2899 Jun, [place] [address] 43711- 0925 May, [place] [id number] [place] [address] 04221- 0252 May, Bipolar 1 disorder F31.9 ; Joint pain of lower extremity M25.50 ; Environmental allergies Z91.09 ; Stress incontinence of urine N39.3 ; Major depressive disorder, single episode, unspecified F32.9 ; Dizzy R42 ; Schizoaffective disorder, unspecified F25.9 ; Neuropathy G62.9 ; Localized edema R60.0 and GERD (gastroesophageal reflux disease) K21.9 [place] [id number] [place] [address] 58039- 6145 May, Schizoaffective disorder, depressive type F25.1 [place] [id number] [place] [address] 29695- 1744 May, Environmental allergies Z91.09 and Major depressive disorder , single episode, unspecified F32.9 [place] [id number] [place] [address] 17757- 6456 Mar, Dental caries K02.9 [place] [id number] [place] [address] 37200- 7825 Mar, Dental caries on smooth surface penetrating into pulp K02.63 [facility] [id number] [place] [address] 54046 -7256 Mar, Peripheral edema R60.9 and Dry skin L85.3 [place] [id number] [place] [address] 96258- 6148 Mar, [place] [id number] [place] [address] 73198- 5130 30 Mar, 2016 Major depressive disorder, single episode, unspecified F32.9 [place] [address] 89227- 0486 09 Mar, 2016 Dental caries K02.9 [place] [address] 65318- 9079 07 Mar, 2016 Diabetes mellitus with complication E11.8 ; Urinary frequency R35.0 ; Stress incontinence of urine N39.3 ; Joint pain of lower extremity M25.50 ; Obesity E66.9 ; Environmental allergies Z91.09 ; Depression F32.9 ; Schizoaffective disorder, unspecified F25.9 ; Vaginal discharge N89.8 and Vaginal candidiasis B37.3 [place] [address] 83397- 3399 Jan, Schizoaffective disorder, unspecified F25.9 [place] [address] 70646- 9779 17 Jan, 2016 [place] [address] 83771- 7782 30 Dec, 2015 [place] [address] 91079- 3153 19 Dec, 2015 Dental caries K02.9 [place] [address] 04947- 6309 14 Dec, 2015 Obesity E66.9 ; Edema R60.9 ; Depression F32.9 ; Bipolar 1 disorder F31.9 ; 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 [id number] [place] [address] 76041- 5696 Oct, Schizoaffective disorder, unspecified F25.9 [facility] [id number] [place] [address] 32753- 2202 Oct, Dental examination Z01.20 [facility] [id number] [place] [address] 39405- 8959 Sep, Dental examination Z01.20 and Dental caries K02.9 [facility] [id number] [place] [address] 27731- 7962 Sep, [facility] [id number] [place] [address] 24087- 5552 Sep, [facility] [id number] [place] [address] 41415- 4760 Sep, [facility] [id number] [place] [address] 11595- 4571 Sep, Schizoaffective disorder, unspecified F25.9 [facility] [id number] [place] [address] 34087- 1140 August, Bipolar disorder, unspecified F31.9 [facility] [id number] [place] [address] 57917- 2558 Jul, Edema R60.[address] [facility] [id number] [place] [address] 89884- 2589 Jul, Edema R60.9 [facility] [id number] [place] [address] 92762- 8729 Jul, Edema R60.9 [facility] [id number] [place] [address] 52318 -6197 Jul, Edema R60.9 [facility] [id number] [place] [address] 84762- 3834 Jul, [facility] [id number] [place] [address] 18509- 1904 Jul, [facility] [id number] [place] [address] 50119- 6297 24 Jun, 2015 Environmental allergies V15.[address] [facility] [id number] [place] [address] 06160- 2191 17 Jun, 2015 Environmental allergies V15.09 ; Edema R60.9 and Cough R05 [facility] [id number] [place] [address] 03087 -5247 12 Jun, 2015 Bronchospasm J98.01 [place] [id number] [place] [address] 72773- 1050 10 Jun, 2015 [place] [id number] [place] [address] 02766- 1420 Jun, [facility] [id number] [place] [address] 87448- 8673 Jun, Environmental allergies V15.09 ; Bipolar 1 disorder F31.9 ; GERD (gastroesophageal reflux disease) K21.9 ; Depression F32.9 ; Joint pain of lower extremity M25.50 ; COPD (chronic obstructive pulmonary disease) J44.9 and Screening for diabetes mellitus Z13.1 [facility] [id number] [place] [address] 81223- 0963 Jun, [facility] [id number] [place] [address] 53991- 4391 May, [place] [id number] [place] [address] 46600- 0279 14 May, 2015 Schizoaffective disorder, unspecified F25.9 and Bipolar [address] [facility] [id number] [place] [address] 95651- 0372 May, [facility] [id number] [place] [address] 94028- 5098 May, URI (upper respiratory infection) J06.9 ; Environmental allergies V15.09 and Cough R05 [place] [address] 56899- 6901 Mar, [place] [address] 02026- 9311 Mar, Vaginal discharge N89.8 [place] [address] 59743- 7115 Mar, Schizoaffective disorder, unspecified F25.9 ; Major depressive disorder, single episode, unspecified F32.9 and Bipolar 1 disorder F31.9 [place] [address] 30545- 1403 Mar, [place] [address] 97737- 7066 Mar, Bipolar 1 disorder F31.9 [place] [address] 00870- 2448 Jan, [place] [address] 68772- 1775 Jan, Allergic rhinitis J30.9 and Cough R05 [place] [address] 22688- 6567 02 Jan, 2015 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 ; Bipolar 1 disorder F31.9 ; GERD ( gastroesophageal reflux disease) K21.9 ; Depression F32.9 and Joint pain of lower extremity M25.50 [place] [address] 35515- 1520 Dec, Encounter for immunization Z23 [address] 68068- 4021 02 Dec, 2014 Schizoaffective disorder, unspecified 295.70 ; Pain in joint , lower leg 719.46 ; Esophageal reflux 530.81 ; Bipolar 1 disorder 296.7 ; Depression 311 ; GERD (gastroesophageal reflux disease) 530.81 and Environmental allergies V15.09 [facility] [id number] [id number] Nov, Dental examination V72.2 [facility] [id number] [place] [address] 60385- 9346 Nov, Acute bronchitis 466.0 [facility] [id number] [place] [address] 485545- 0286 Nov, Schizoaffective disorder, unspecified 295.70 and Bipolar disorder, unspecified 296.80 [facility] [address] [id number] Sep, Dental examination V72.2 [facility] [id number] [place] [address] [id number] August, Dental examination V72.2 [facility] [address] [place] [address] 641619- 3976 August, Schizoaffective disorder, unspecified 295.70 [facility] [address] [place] [address] 55761- 9256 August, [facility] [id number] [place] [address] 26773- 9436 August, Vomiting 787.03 [facility] [address] [place] [address] 910706- 8926 August, Vomiting and diarrhea 787.03 and High risk medication use V58.69 [facility] [address] [address] 1896 Jul, [facility] [id number] [place] [address] 024154- 0332 Jul, [facility] [id number] [place] [address] 269168- 8283 Jul, [facility] [address]- 6647 Jun, [facility] [id number] [place] [address]- 5435 27 Jun, 2014 [facility] [place] [facility] [address] [id number] [place] [address]- 2456 17 Jun, 2014 [facility] [place] [facility] [address] [id number] [place] [address]- 5266 17 Jun, 2014 [facility] [place] [facility] [address] [id number] [place] [address]- 2956 16 Jun, 2014 [facility] [place] [facility] [address] [id number] [place] [address]- 8346 Jun, 2014 [facility] [place] [facility] [address] [id number] [place] [address]- 2676 Jun, 2014 [facility] [place] [facility] [address] [facility] [id number] [place] [address]- 0647 Jun, 2014 [facility] [place] [facility] [address] [id number] [place] [address]- 2704 Jun, 2014 [facility] [place] [facility] [address] [id number] [place] [address]- 7295 Mar, [facility] [place] [facility] [address] [id number] [place] [address]- 2548 Mar, [facility] [place] [facility] [address] [facility] [id number] [place] [address]- 1244 Mar, [facility] [place] [facility] [address] [id number] [place] [address]- 2540 Mar, [facility] [place] [facility] [address] [id number] [place] [address] 2546 Mar, [facility] [place] [facility] [address] [id number] [place] [address]- 2546 Mar, [facility] [place] [facility] [address] [id number] [place] [address] 2546 Mar, [facility] [place] [facility] [address] [id number] [place] [address]- 5158 Mar, [facility] [place] [facility] [address] [id number] [place] [address]- 8016 Mar, [facility] [place] [facility] [address] [id number] [place] [address]- 5021 Mar, [facility] [place] [facility] [address] [id number] [place] [address]- 5239 Jan, [facility] [place] [facility] [address] [id number] [place] 7955 Jan, [facility] [place] [facility] [address] [id number] [place] [address]- 7935 Jan, [facility] [place] [facility] [address] [id number] [place] [address]- 5185 Jan, [facility] [place] [facility] [address] [id number] [place] [address]- 2014 Jan, [facility] [place] [facility] [address] [id number] [place] [address]- 8213 Jan, [facility] [place] [facility] [address] [id number] [place] [address]- 5418 Jan, [facility] [place] [facility] [address] [id number] [place] [address]- 6364 Jan, [facility] [place] [facility] [address] [id number] [address]- 3577 19 Dec, 2013 [facility] [place] [facility] [address] [id number] [address]- 1920 19 Dec, 2013 [facility] [place] [facility] [address] [id number] [address]- 3932 15 Dec, 2013 [facility] [place] [facility] [address] [id number] [address]- 7395 15 Dec, 2013 [facility] [place] [facility] [address] [id number] [address]- 1003 15 Dec, 2013 [facility] [place] [facility] [address] [id number] [place] [address]- 8280 15 Dec, 2013 [facility] [place] [facility] [address] [id number] [place] [address]- 3973 12 Dec, 2013 [facility] [place] [facility] [address] [id number] [place] [address]- 6526 12 Dec, 2013 [facility] [place] [facility] [address] [id number] [place] [address]- 0189 Dec, [facility] [place] [facility] [address] [id number] [place] [address]- 9373 Dec, [facility] [place] [facility] [address] [id number] [place] [address] Nov, [facility] [place] [facility] [address] [id number] [place] [address] Nov, [facility] [place] [facility] [address] [id number] [place] [address] Nov, [facility] [place] [facility] [address] [id number] [place] [address] Nov, [facility] [place] [facility] [address] [id number] [place] [address] Oct, [facility] [place] [facility] [address] [id number] [place] [address] Oct, [facility] [place] [facility] [address] [id number] [place] [address] Oct, [facility] [place] [facility] [address] [id number] [place] [address] Oct, [facility] [place] [facility] [address] [id number] [place] [address] Sep, [facility] [place] [facility] [address] [id number] [place] [address] Sep, [facility] [place] [facility] [address] [id number] [place] [address] Sep, [facility] [place] [facility] [address] [id number] [place] [address] Sep, [facility] [place] [facility] [address] [id number] [place] [address] Sep, [facility] [place] [facility] [address] [id number] [place] [address] Sep, [facility] [place] [facility] [address] [id number] [place] [address]- [address] Sep, [facility] [place] [facility] [address] [id number] [place] [address] Sep, [facility] [place] [facility] [address] [id number] [place] [address] August, [facility] [place] [facility] [address] [id number] [place] [address] August, [facility] [place] [facility] [address] [id number] [place] [address] Jul, [facility] [place] [facility] [address] [id number] [place] [address] Jul, [facility] [place] [facility] [address] [id number] [place] [address] Jul, [facility] [place] [facility] [address] [id number] [place] [address] Jul, [facility] [place] [facility] [address] [id number] [place] [address] Jul, [facility] [place] [facility] [address] [id number] [place] [address] Jul, [facility] [place] [facility] [address] [id number] [place] [address] Jul, [facility] [place] [facility] [address] [id number] [place] [address] Jul, [facility] [place] [facility] [address] [id number] [place] [address] 07 Jul, 2013 [facility] [place] [facility] [address] [id number] [place] [address] Jul, [facility] [place] [facility] [address] [id number] [place] [address] 27 Jun, 2013 [facility] [place] [facility] [address] [id number] [place] [address] 27 Jun, 2013 [facility] [place] [facility] [address] [id number] [place] [address] 18 Jun, 2013 [facility] [place] [facility] [address] [id number] [place] [address] 18 Jun, 2013 [facility] [place] [facility] [address] [id number] [place] [address] 17 Jun, 2013 [facility] [place] [facility] [address] [id number] [place] [address] 17 Jun, 2013 [facility] [place] [facility] [address] [id number] [place] [address] 17 Jun, 2013 [facility] [place] [facility] [address] [id number] [place] [address] 17 Jun, 2013 [facility] [place] [facility] [address] [id number] [place] [address] 14 Jun, 2013 [facility] [place] [facility] [address] [id number] [place] [address] 14 Jun, 2013 [facility] [place] [facility] [address] [id number] [place] [address] Jun, [facility] [place] [facility] [address] [id number] [place] [address] Jun, [facility] [place] [facility] [address] [id number] [place] [address] Jun, [facility] [place] [facility] [address] [id number] [place] [address] Jun, [facility] [place] [facility] [address] [id number] [place] [address] Jun, [facility] [place] [facility] [address] [id number] [place] [address] Jun, [facility] [place] [facility] [address] [id number] [place] [address] May, [facility] [place] [facility] [address] [id number] [place] [address] May, [facility] [place] [facility] [address] [id number] [place] [address] May, [facility] [place] [facility] [address] [id number] [place] [address] May, [facility] [place] [facility] [address] [id number] [place] [address] Mar, [facility] [place] [facility] [address] [id number] [place] [address] Mar, [facility] [place] [facility] [address] [id number] [place] [address] Mar, [facility] [place] [facility] [address] [id number] [place] [address] Mar, [facility] [place] [facility] [address] [id number] [place] [address] Mar, [facility] [place] [facility] [address] [id number] [place] [address] Mar, [facility] [place] [facility] [address] [id number] [place] [address] Mar, [facility] [place] [facility] [address] [id number] [place] [address]- [address] Mar, [facility] [place] [facility] [address] [id number] [place] [address] Jan, [facility] [place] [facility] [address] [id number] [place] [address] Jan, [facility] [place] [facility] [address] [id number] [place] [address] Jan, [facility] [place] [facility] [address] [id number] [place] [address] Jan, [facility] [place] [facility] [address] [id number] [place] [address]- [address] Jan, [facility] [place] [facility] [address] [id number] [place] [address] 9[address] Jan, [facility] [place] [facility] [address] [id number] [place] [address] Jan, [facility] [place] [facility] [address] [id number] [place] [address] Dec, [facility] [place] [facility] [address] [id number] [place] [address] Nov, [facility] [place] [facility] [address] [id number] [place] [address] Oct, [facility] [place] [facility] [address] [id number] [place] [address]271 Oct, [facility] [place] [facility] [address] [id number] [address] Sep, [facility] [place] [facility] [address] [id number] [address] Sep, [facility] [place] [facility] [address] [id number] [address] Sep, [facility] [place] [facility] [address] [id number] [place] [address] August, [facility] [place] [facility] [address] [id number] [address] Jun, [facility] [place] [facility] [address] [id number], [place] [address] Jun, [facility] [place] [facility] [address] [id number] [place] [address] 15 Jun, 2012 [facility] [address] [id number] [place] [address] 15 Jun, [address] [facility] [address] [id number] [place] [address] 3616 13 Jun, 2012 [facility] [address] [id number] [place] [address] 12 Jun, 2012 [facility] [address] [id number] [place] [address] 07 Jun, 2012 [facility] [address] [id number] [place] [address] May, [facility] [address] [id number] [place] [address] [address] May, [facility] [address] [id number] [place] [address]- [address] May, [facility] [address] [id number] [place] [address]- [address]078 May, [facility] [address] [id number] [place] [address]- [address]71 May, [facility] [address] [id number] [place] [address] [address] May, [facility] [address] [id number] [place] [address] [address] May, [facility] [address] [id number] [place] [address] 3496 Mar, [facility] [address] [id number] [place] [address]- [address] Mar, [facility] [address] [id number] [place] [address]- 2546 Mar, [facility] [address] [id number] [place] [address]- 6445 Mar, [facility] [place] [facility] [address] [id number] [place] [address]- 6120 Mar, [facility] [place] [facility] [address] [id number] [place] [address]- 7590 Mar, [facility] [place] [facility] [address] [id number] [place] [address]- 1523 Mar, [facility] [place] [facility] [address] [id number] [place] [address]- 2749 Mar, [facility] [place] [facility] [address] [id number] [place] [address]- 5868 Mar, [facility] [place] [facility] [address] [id number] [place] [address]- 7717 Mar, [facility] [place] [facility] [address] [id number] [place] [address]- 0978 Mar, [facility] [place] [facility] [address] [id number] [place] [address]- 5149 Mar, [facility] [place] [facility] [address] [id number] [place] [address]- 3040 Mar, [facility] [place] [facility] [address] [id number] [place] [address]- 0710 Mar, [facility] [place] [facility] [address] [id number], [place] [address] Mar, [facility] [place] [facility] [address] [id number], [place] [address] Mar, [facility] [place] [facility] [address] [id number] [place] [address]- 7069 Mar, [facility] [place] [facility] [address] [id number] [place] [address]- 6009 Mar, [facility] [place] [facility] [address] [id number] [place] [address]- 3061 Mar, [facility] [place] [facility] [id number] [address] Jan, [facility] [address] [facility] [id number] [address] Jan, [facility] [address] [id number] [address] Jan, [facility] [id number] [address] Jan, [facility] [address] [facility] [id number] [address] Dec, [facility] [id number] [address] Dec, [facility] [address] [id number] [address] Dec, [facility] [id number] [address]20 Nov, [facility] [id number] [address]169 Nov, [facility] [id number] Oct, [facility] [id number] [address]65 Oct, [facility] [id number] [address] Oct, [facility] [address] [id number] [address] Oct, [facility] [id number] [address] Oct, [facility] [address] [id number] Oct, IMMUNIZATIONS No Known Immunizations SOCIAL HISTORY Never Assessed REASON FOR VISIT 3 month follow up--tjanssenMA, -bad left knee, causing her pain for the last week. PLAN OF CARE Activity Details Follow Up 3 Months Reason:CHM VITAL SIGNS Height 63 in 2017-05-04 Weight 274 lbs 2017-05-04 Temperature 98.1 degrees Fahrenheit 2017-05-04 Heart Rate 82 bpm 2017-05-04 Respiratory Rate 20 2017-05-04 BMI 48.53 kg/m2 2017-05-04 Blood pressure systolic 109 mmHg 2017-05-04 Blood pressure diastolic 72 mmHg 2017-05-04 MEDICATIONS Medication Instructions Dosage Frequency Start Date End Date Duration Status Albuterol Sulfate 0.63 MG/3ML Inhalation every 4 hrs 3 ml as needed 4h Jun, Active Gabapentin 300 MG Orally Three times a day 1 capsule 8h Active Risperdal 1 MG Orally 2 times a day 1 tablet 12h Active Meloxicam 7.5 MG Orally 2 times a day 1 tablet 12h Active Flonase 50 MCG/ACT Nasally Once a day 1 spray in each nostril 24h 30 Active Celexa 40 MG Orally Once a day 1 tablet 24h Active Protonix 20 MG Orally Once a day 1 tablet 24h Active Citalopram Hydrobromide 40 mg Orally Once a day 1 tablet 24h 30 Active Albuterol Sulfate HFA 108 (90 Base) MCG/ACT Inhalation every 4 hrs 2 puffs as needed 4h May, Active ZyrTEC 10 mg orally Once a day 1 tablet by Oral route 1 time per day 24h Active Hydrochlorothiazide 50 MG TAKE ONE TABLET BY MOUTH ONCE DAILY Active MetFORMIN HCl ER 500 mg Orally Once a day 1 tablet with evening meal 24h Jan, Active Lamictal 150 MG Orally Once a day 1 tablet 24h Jan, Active RESULTS Name Result Date Reference Range Xray : Knee, Left 3 views (IN HOUSE) 2017-05-04 PROCEDURES Procedure Date Ordered Result Body Site X-RAY EXAM OF KNEE, 3 May 04, 2017 INSTRUCTIONS MEDICATIONS ADMINISTERED No Known [...]
--- OUTSIDE RECORDS SUMMARY | 2018-05-15 06:34 | XMS REPORT ---
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 Active 362365517 Problem Major depressive disorder, single episode, unspecified F32.9 Active 99717223 Problem Stress incontinence of urine N39.3 Active 43512980 Problem Acute pain of left knee M25.562 Active 02726917 Problem Neuropathy G62.9 Active 065315139 Problem Joint pain of lower extremity M25.50 Active 17609950 Problem 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 452632309 Problem PVD (peripheral vascular disease) I73.9 Active 543016108 Problem GERD (gastroesophageal reflux disease) K21.9 Active 041164274 Problem Edema R60.9 Active 112304833 Problem Bipolar 1 disorder F31.9 Active 321879915 Problem Cough R05 Active 39884824 Problem Depression F32.9 Active 08036922 Problem Obesity E66.9 Active 799309672 ALLERGIES Substance Reaction Event Type Date Status Sulfamethoxazole-Trimethoprim Unknown Drug Allergy Jun, Active Penicillin V Potassium rash Drug Allergy Jun, Active SOCIAL HISTORY Never Assessed PLAN OF CARE Activity Details Follow Up prn Reason:1 hr -xray and TE VITAL SIGNS Height 63 in 2016-06-20 Blood pressure systolic 109 mmHg 2016-06-20 Blood pressure diastolic 73 mmHg 2016-06-20 MEDICATIONS Medication Instructions Dosage Frequency Start Date End Date Duration Status Risperdal 1 MG Orally 2 times a day 1 tablet 12h Active Gabapentin 300 MG Orally Three times a day 1 capsule 8h 30 May, 2016 30 day(s) Active Lamotrigine 100 MG Orally Once a day 1 tablet 24h Active Meloxicam 7.5 MG Orally 2 times a day 1 tablet 12h 30 Active Protonix 20 MG Orally Once a day 1 tablet 24h Active Flonase 50 MCG/ACT Nasally Once a day 1 spray in each nostril 24h 07 Sep, 2015 Active Albuterol Sulfate HFA 108 (90 Base) MCG/ACT Inhalation every 4 hrs 2 puffs as needed 4h May, Active ZyrTEC 10 mg orally Once a day 1 tablet by Oral route 1 time per day 24h Active Albuterol Sulfate 0.63 MG/3ML Inhalation every 4 hrs 3 ml as needed 4h Jun, Active Celexa Active Hydrochlorothiazide 50 mg Orally Once a day 1 tablet 24h 30 days Active RESULTS No Results PROCEDURES Procedure Date Ordered Result Body Site INTRAORL-PERIAPICAL 1 FILM 05695 Jun 20, 2016 EXTRAC ERUPTED TOOTH/EXPOSED ROOT Jun 20, 2016 EXTRAC ERUPTED TOOTH/EXPOSED ROOT Jun 20, 2016 IMMUNIZATIONS No Known Immunizations MEDICAL (GENERAL) HISTORY Type Description Date Medical History bipolar disorder Medical History depression Medical History acid reflux Medical History hx of meth use til 1998 Medical History DX sleep apnea 06/2016 Surgical History right knee arthroscopy x2 2004, 2006 Hospitalization History surgery Hospitalization History hospitalized psychiatrically x4, last incident prior to 2006
--- OUTSIDE RECORDS SUMMARY | 2018-05-15 06:34 | XMS REPORT ---
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 Name Role Phone LALIT KERNS Unavailable PROBLEMS Type Condition ICD9-CM Code HOD20-HH Code Onset Dates Condition Status SNOMED Code Problem Stress incontinence of urine N39.3 Active 38278032 Problem Neuropathy G62.9 Active 406813708 Problem Major depressive disorder, single episode, unspecified F32.9 Active 52555814 Problem Morbid (severe) obesity due to excess calories E66.01 Active 855724474 Problem Body mass index (BMI) of 45.0-49.9 in adult Z68.42 Active 130641983 Problem 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 Active 381112045 Problem Schizoaffective disorder, bipolar type F25.0 Active 62305614 Problem Primary osteoarthritis of left knee M17.12 Active 634994552 Problem Post-menopausal bleeding N95.0 Active 56949169 Problem Depression F32.9 Active 67459793 Problem Bipolar 1 disorder F31.9 Active 953117082 Problem Edema R60.9 Active 076238193 Problem GERD (gastroesophageal reflux disease) K21.9 Active 824056232 Problem Obesity E66.9 Active 594609362 Problem Joint pain of lower extremity M25.50 Active 47012912 Problem Environmental allergies Z91.09 Active 014293570 ALLERGIES Substance Reaction Event Type Date Status Sulfamethoxazole-Trimethoprim Unknown Drug Allergy Oct, Active Penicillin V Potassium rash Drug Allergy Oct, Active ENCOUNTERS Encounter Location Date Diagnosis [facility] [address] [facility] [id number] [address] Jul, [facility] [address] [id number] [address] Jul, [facility] [address] [facility] [id number], [place] [address] Jul, Prediabetes R73.03 ; Primary osteoarthritis of left knee M17.12 ; GERD (gastroesophageal reflux disease) K21.9 ; Bipolar 1 disorder F31.9 ; Depression F32.9 ; Environmental allergies Z91.09 ; Neuropathy G62.9 ; Edema R60.9 ; Body mass index (BMI) of 45.0-49.9 in adult Z68.42 and Morbid ( severe) obesity due to excess calories E66.01 [place] [address] [address]- [address] Jul, [place] [address] 46669- 4859 Jun, [place] [address] 31051- 3122 Jun, [place] [address] 20644- 1648 Jun, Wound of right breast, initial encounter S21.001A and Prediabetes R73.03 [place] [address] [place] [id number] [place] [address] 65515- 7290 Jun, [place] [address] 78405- 1067 May, GERD (gastroesophageal reflux disease) K21.9 [place] [address] [place] [id number] [place] [address] 37555- 9165 May, Primary osteoarthritis of left knee M17.12 [place] [address] 31178- 3285 May, Schizoaffective disorder, bipolar type F25.0 and Methamphetamine abuse in remission F15.[address] [address]- 39[address] May, Left medial knee pain M25.562 ; GERD (gastroesophageal reflux disease) K21.9 ; Depression F32.9 ; Neuropathy G62.9 ; Obesity E66.9 ; Prediabetes R73.03 and Edema R60.9 [place] [address], [place] [address] 14 Mar, 2017 [facility] [id number] [place] [address] 38932- 5742 Mar, [facility] [address] [id number] [place] [address] 81735- 1869 Mar, Post-menopausal bleeding N95.0 and BMI 50.0-59.9, adult Z68.43 [place] [address] [id number] [place] [address] 46279- 9428 Mar, [place] [address] [id number] [place] [address] 00490- 4195 Mar, Schizoaffective disorder, bipolar type F25.0 and 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 [place] [address] [id number] [place] [address] 00794- 2105 Mar, [place] [address] [id number] [place] [address] 02004- 4782 Mar, [place] [address] [id number] [place] [address] 98467- 6070 Mar, Post-menopausal bleeding N95.0 ; Screening breast examination Z12.31 ; Screen for STD (sexually transmitted disease) Z11.3 ; Obesity E66.9 ; Family history of ovarian cancer Z80.41 and Family history of cervical cancer Z80.49 [place] [address], [place] [address] 9213 Mar, [place] [address] [place] [address] 33742- 7291 Mar, [place] [address] [id number] [place] [address] 30577- 3723 Jan, Schizoaffective disorder, bipolar type F25.0 and 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 [place] [address] [place] [address] 91410- 9172 Jan, Schizoaffective disorder, bipolar type F25.0 [facility] [address], [place] [address]- 7101 Jan, [facility] [id number] [place] [address] 41051- 2689 Jan, Prediabetes R73.03 and Obesity E66.9 [facility] [id number] [place] [address] 29323- 6248 Jan, Encounter for immunization Z23 [facility] [id number] [place] [address] 44052- 2999 Jan, [facility] [id number] [place] [address] 02851- 8281 Dec, [facility] [id number] [place] [address] 27773- 8901 Dec, [facility] [id number] [place] [address] 94182- 9255 Nov, Neuropathy G62.9 [facility] [id number] [place] [address] 35264- 6288 Nov, [facility] [id number] [place] [address] 22300- 0296 Nov, Schizoaffective disorder, bipolar type F25.0 [facility] [address] [place] [address] 74704- 0549 Nov, Other mcfp (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 Z79.899 and Schizoaffective disorder, bipolar type F25.0 [facility] [address], [place] [address]- 0386 Oct, Schizoaffective disorder, bipolar type F25.0 ; Other mcfp (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 Z79.899 and 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 [facility] [address] [id number] [id number] Oct, Dental caries K02.9 [facility] [id number] [place] [address] 66167- 5458 Sep, Neuropathy G62.9 [place] [address] [address] [id number] [place] [address] 57616- 8865 Sep, [place] [address] [place] [id number] [place] [address] 95770- 2327 Sep, Neuropathy G62.9 [place] [address] [id number] [place] [address] 77071- 9691 Jul, Schizoaffective disorder, depressive type F25.1 [place] [address] [place] [id number] [place] [address] 30076- 0314 Jul, GERD (gastroesophageal reflux disease) K21.9 ; Joint pain of lower extremity M25.50 ; Environmental allergies Z91.09 ; Stress incontinence of urine N39.3 ; Neuropathy G62.9 ; Edema R60.9 and Acute pain of left knee M25.562 [place] [address] [id number] [place] [address] 36280- 5605 Jun, [facility] [id number] [place] [address] [id number] Jun, Dental examination Z01.20 [place] [address] [id number] [place] [address] 17564- 5021 02 Jun, 2016 [place] [address] [id number] [place] [address] 86245- 5718 May, [place] [address] [place] [id number] [place] [address] 27382- 5550 May, Bipolar 1 disorder F31.9 ; Joint pain of lower extremity M25.50 ; Environmental allergies Z91.09 ; Stress incontinence of urine N39.3 ; Major depressive disorder, single episode, unspecified F32.9 ; Dizzy R42 ; Schizoaffective disorder, unspecified F25.9 ; Neuropathy G62.9 ; Localized edema R60.0 and GERD (gastroesophageal reflux disease) K21.9 [place] [address] [place] [address] [place] [address] 20045- 3326 May, Schizoaffective disorder, depressive type F25.1 [place] [address] 12770- 8417 May, Environmental allergies Z91.09 and Major depressive disorder , single episode, unspecified F32.9 [place] [address] 95260- 5458 Mar, Dental caries K02.9 [place] [address] 26304- 4517 Mar, Dental caries on smooth surface penetrating into pulp K02.63 [facility] [place] [address] 68428 -0584 Mar, Peripheral edema R60.9 and Dry skin L85.3 [place] [address] 25861- 8883 Mar, [place] [address] 82417- 8126 Mar, Major depressive disorder, single episode, unspecified F32.9 [place] [address] 86066- 6457 Mar, Dental caries K02.9 [place] [address] 28650- 9112 07 Mar, 2016 Diabetes mellitus with complication E11.8 ; Urinary frequency R35.0 ; Stress incontinence of urine N39.3 ; Joint pain of lower extremity M25.50 ; Obesity E66.9 ; Environmental allergies Z91.09 ; Depression F32.9 ; Schizoaffective disorder, unspecified F25.9 ; Vaginal discharge N89.8 and Vaginal candidiasis B37.3 [place] [address] [place] [id number] [place] [address] 51537- 7466 Jan, Schizoaffective disorder, unspecified F25.9 [place] [address] 34411- 5146 17 Jan, 2016 [place] [address] 36805- 9491 30 Dec, 2015 [place] [address] 32751- 0441 19 Dec, 2015 Dental caries K02.9 [place] [address] 06193- 3655 14 Dec, 2015 Obesity E66.9 ; Edema R60.9 ; Depression F32.9 ; Bipolar 1 disorder F31.9 ; 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 ; Environmental allergies Z91.09 ; Shortness of breath R06.02 ; Gastroesophageal reflux disease with esophagitis K21.0 ; Other chronic pain G89.29 ; Pain in right knee M25.561 ; Pain in left knee M25.562 and Encounter for immunization Z23 [place] [address] 00675- 8782 Nov, Dental caries K02.9 [place] [address] 02377- 8584 Oct, Schizoaffective disorder, unspecified F25.9 [place] [address] [place] [id number] [place] [address] 94702- 2497 12 Oct, 2015 Dental examination Z01.20 [place] [address] 38072- 6829 Sep, Dental examination Z01.20 and Dental caries K02.9 [place] [address] [place] [id number] [place] [address] 19619- 0104 13 Sep, 2015 [place] [address] 74763- 8160 09 Sep, 2015 [place] [address] 58492- 8006 07 Sep, 2015 [place] [address] 78638- 8031 Sep, Schizoaffective disorder, unspecified F25.9 [facility] [id number] [place] [address] 06070- 7375 August, Bipolar disorder, unspecified F31.9 [facility] [id number] [place] [address] 47737- 0012 Jul, Edema R60.9 and Obesity E66.9 [facility] [address] 63928- 0810 Jul, Edema R60.9 [facility] [address] 85356- 6648 Jul, Edema R60.9 [facility] [address] 58938 -9757 Jul, Edema R60.9 [facility] [address] 00208- 7222 Jul, [facility] [address] 50875- 2548 Jul, [facility] [address] [place] [id number] [place] [address] 28196- 7745 24 Jun, 2015 Environmental allergies V15.09 and Cough R05 [facility] [id number] [place] [address] 85237- 0649 17 Jun, 2015 Environmental allergies V15.09 ; Edema R60.9 and Cough R05 [facility] [id number] [place] [address] 89874 -5627 12 Jun, 2015 Bronchospasm J98.01 [facility] [address] 39822- 0200 10 Jun, 2015 [facility] [address] [place] [id number] [place] [address] 43311- 5541 09 Jun, 2015 [facility] [address] 35659- 2263 Jun, Environmental allergies V15.09 ; Bipolar 1 disorder F31.9 ; GERD (gastroesophageal reflux disease) K21.9 ; Depression F32.9 ; Joint pain of lower extremity M25.50 ; COPD (chronic obstructive pulmonary disease) J44.9 and Screening for diabetes mellitus Z13.1 [place] [address] 52529- 7874 16 Jun, 2015 [place] [address] 21887- 8992 May, [place] [address] 08684- 6800 May, Schizoaffective disorder, unspecified F25.9 and Bipolar 1 disorder F31.9 [place] [address] 05356- 4724 May, [address] 53371- 4030 May, URI (upper respiratory infection) J06.9 ; Environmental allergies V15.09 and Cough R05 [address] 17786- 1682 Mar, [place] [address] 25552- 2480 Mar, Vaginal discharge N89.[address] 16489- 3075 14 Mar, 2015 Schizoaffective disorder, unspecified F25.9 ; Major depressive disorder, single episode, unspecified F32.9 and Bipolar 1 disorder F31.9 [place] [address] 61963- 1642 Mar, [place] [address] 21316- 3695 Mar, Bipolar 1 disorder F31.9 [place] [address] [place]- 2546 Jan, [facility] [address] [place] [id number] [place] [address] 64857- 6473 Jan, Allergic rhinitis J30.9 and Cough R05 [facility] [address] [place] [id number] [place] [address] 97038- 1018 Jan, 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 ; Bipolar 1 disorder F31.9 ; GERD ( gastroesophageal reflux disease) K21.9 ; Depression F32.9 and Joint pain of lower extremity M25.50 [place] [address] [place] [id number] [place] [address] 94657- 4779 Dec, Encounter for immunization Z23 [place] [address] 03244- 8736 Dec, Schizoaffective disorder, unspecified 295.70 ; Pain in joint , lower leg 719.46 ; Esophageal reflux 530.81 ; Bipolar 1 disorder 296.7 ; Depression 311 ; GERD (gastroesophageal reflux disease) 530.81 and Environmental allergies V15.09 [facility] [id number] [place] [address] [id number] Nov, Dental examination V72.2 [place] [address] [place] [id number] [place] [address] 52638- 3151 Nov, Acute bronchitis 466.0 [place] [address] [place] [id number] [place] [address] 68741- 8954 Nov, Schizoaffective disorder, unspecified 295.70 and Bipolar disorder, unspecified 296.80 [facility] [address] [place] [address] [id number] Sep, Dental examination V72.2 [facility] [address] [id number] August, Dental examination V72.2 [facility] [address] [place] [place] [id number] [place] [address] 14432- 1642 August, Schizoaffective disorder, unspecified 295.70 [place] [address], [place] [address]- 1834 August, [facility] [address], [place] [address]- 5419 August, Vomiting 787.03 [facility] [address], [place] [address]- 7608 August, Vomiting and diarrhea 787.03 and High risk medication use V58.69 [facility] [address], [place] [address]- 0394 30 Jul, 2014 [facility] [address] [place] [address] 46367- 3059 Jul, [facility] [id number] [place] [address] 94998- 0541 Jul, [facility] [address] [id number] [place] [address] 45397- 3929 Jun, [facility] [address], [place] [address]- 4893 Jun, [facility] [address], [place] [address]- 3620 Jun, [facility] [address], [place] [address]- 7549 Jun, [facility] [address], [place] [address]- 5882 16 Jun, 2014 [facility] [address], [place] [address]- 9527 Jun, [facility] [address], [place] [address]- 3101 Jun, [facility] [address], [place] [address]- 5736 Jun, [facility] [address] 4686 Jun, [facility] [place] [facility] [address] [id number] [place] [address]- 6711 Mar, [facility] [place] [facility] [address] [id number] [place] [address]- 9153 Mar, [facility] [place] [facility] [address] [id number] [place] [address]- 9359 Mar, [facility] [place] [facility] [address] [id number] [place] [address]- 4726 Mar, [facility] [place] [facility] [address] [id number] [place] [address]- 2235 Mar, [facility] [place] [facility] [address] [id number] [place] [address]- 4543 Mar, [facility] [place] [facility] [address] [id number] [place] [address]- 7697 Mar, [facility] [place] [facility] [address] [id number] [place] [address]- 6457 Mar, [facility] [place] [facility] [address] [id number] [place] [address]- 9148 Mar, [facility] [place] [facility] [address] [id number] [place] [address]- 1998 Mar, [facility] [place] [facility] [address] [id number] [place] [address]- 1316 Jan, [facility] [place] [facility] [address] [id number] [place] [address]- 8728 31 Jan, 2014 [facility] [place] [facility] [address] [id number] [place] [address]- 3952 31 Jan, 2014 [facility] [place] [facility] [address] [id number] [place] [address]- 9217 31 Jan, 2014 [facility] [place] [facility] [address] [id number] [place] [address]- 4849 14 Jan, 2014 [facility] [place] [facility] [address] [id number], [place] [address]- 8917 14 Jan, 2014 [facility] [place] [facility] [address] [id number] [place] [address]- 2536 09 Jan, 2014 [facility] [place] [facility] [address] [id number] [place] [address]- 1800 09 Jan, 2014 [facility] [place] [facility] [address] [id number] [place] [address]- 7143 19 Dec, 2013 [facility] [place] [facility] [address] [id number] [place] [address]- 5754 19 Dec, 2013 [facility] [place] [facility] [address] [id number] [place] [address]- 7120 15 Dec, 2013 [facility] [place] [facility] [address] [id number] [place] [address]- 1697 15 Dec, 2013 [facility] [place] [facility] [address] [id number] [place] [address]- 5279 15 Dec, 2013 [facility] [place] [facility] [address] [id number] [place] [address]- 8180 15 Dec, 2013 [facility] [place] [facility] [address] [id number] [place] [address]- 7166 12 Dec, 2013 [facility] [place] [facility] [address] [id number] [place] [address]- 6375 12 Dec, 2013 [facility] [place] [facility] [address] [id number] [place] [address]- 1930 Dec, [facility] [place] [facility] [address] [id number], [place] [address]- 6414 Dec, [facility] [place] [facility] [address] [id number] [place] [address]- 5067 Nov, [facility] [place] [facility] [address] [id number] [place] [address]- 2897 Nov, [facility] [place] [facility] [address] [id number] [place] [address]- 0990 Nov, [facility] [place] [facility] [address] [id number] [place] [address]- 7965 Nov, [facility] [place] [facility] [address] [id number] [place] [address]- 2889 Oct, [facility] [place] [facility] [address] [id number] [place] [address]- 1962 Oct, [facility] [place] [facility] [address] [id number] [place] [address]- 4487 Oct, [facility] [place] [facility] [address] [id number] [place] [address]- 4148 Oct, [facility] [place] [facility] [address] [id number] [place] [address]- 5963 Sep, [facility] [place] [facility] [address] [id number] [place] [address]- 2202 Sep, [facility] [place] [facility] [address] [id number] [place] [address]- 1005 Sep, [facility] [place] [facility] [address] [id number] [place] [address]- 7784 Sep, [facility] [place] [facility] [address] [id number] [place] [address]- 0142 Sep, [facility] [place] [facility] [address] [id number] [place] [address]- 2510 Sep, [facility] [place] [facility] [address] [id number] [place] [address]- 1543 Sep, [facility] [place] [facility] [address] [id number] [place] [address]- 5862 Sep, [facility] [place] [facility] [address] [id number] [place] [address]- 9024 August, [facility] [place] [facility] [address] [id number] [place] [address]- 4414 August, [facility] [place] [facility] [address] [id number] [place] [address]- 4273 Jul, [facility] [place] [facility] [address] [id number] [place] [address]- 0688 Jul, [facility] [place] [facility] [address] [id number] [place] [address]- 1700 Jul, [facility] [place] [facility] [address] [id number] [place] [address]- 4412 Jul, [facility] [place] [facility] [address] [id number] [place] [address]- 1522 Jul, [facility] [place] [facility] [address] [id number] [place] [address]- 8738 Jul, [facility] [place] [facility] [address] [id number] [place] [address]- 6065 Jul, [facility] [place] [facility] [address] [id number] [place] [address] Jul, [facility] [place] [facility] [address] [id number] [place] [address] Jul, [facility] [place] [facility] [address] [id number] [place] [address] Jul, [facility] [place] [facility] [address] [id number] [place] [address] Jun, [facility] [place] [facility] [address] [id number] [place] [address] Jun, [facility] [place] [facility] [address] [id number], [place] [address] 18 Jun, 2013 [facility] [place] [facility] [address] [id number] [place] [address] 18 Jun, 2013 [facility] [place] [facility] [address] [id number] [place] [address] 17 Jun, 2013 [facility] [place] [facility] [address] [id number] [place] [address] 17 Jun, 2013 [facility] [place] [facility] [address] [id number] [place] [address] 17 Jun, 2013 [facility] [place] [facility] [address] [id number] [place] [address] 17 Jun, 2013 [facility] [place] [facility] [address] [id number] [place] [address] 14 Jun, 2013 [facility] [place] [facility] [address] [id number] [place] [address] 14 Jun, 2013 [facility] [place] [facility] [address] [id number] [place] [address] Jun, [facility] [place] [facility] [address] [id number] [place] [address] Jun, [facility] [place] [facility] [address] [id number] [place] [address] Jun, [facility] [place] [facility] [address] [id number] [place] [address] Jun, [facility] [place] [facility] [address] [id number] [place] [address] Jun, [facility] [place] [facility] [address] [id number] [place] [address]- [address] Jun, [facility] [place] [facility] [address] [id number] [place] [address] May, [facility] [place] [facility] [address] [id number] [place] [address] May, [facility] [place] [facility] [address] [id number] [place] [address]- [address] May, [facility] [place] [facility] [address] [id number] [place] [address] May, [facility] [place] [facility] [address] [id number] [place] [address] Mar, [facility] [place] [facility] [address] [id number] [place] [address]- [address] Mar, [facility] [place] [facility] [address] [id number] [place] [address] Mar, [facility] [place] [facility] [address] [id number] [place] [address] Mar, [facility] [place] [facility] [address] [id number] [place] [address] Mar, [facility] [place] [facility] [address] [id number] [place] [address] Mar, [facility] [place] [facility] [address] [id number] [place] [address] Mar, [facility] [place] [facility] [address] [id number] [place] [address] Mar, [facility] [place] [facility] [address] [id number] [place] [address] Jan, [facility] [place] [facility] [address] [id number] [place] [address] Jan, [facility] [place] [facility] [address] [id number] [place] [address] Jan, [facility] [place] [facility] [address] [id number] [place] [address] Jan, [facility] [place] [facility] [address] [id number] [place] [address] Jan, [facility] [place] [facility] [address] [id number] [place] [address] Jan, [facility] [place] [facility] [address] [id number] [place] [address] Jan, [facility] [place] [facility] [address] [id number] [place] [address] Dec, [facility] [place] [facility] [address] [id number] [place] [address] Nov, [facility] [place] [facility] [address] [id number], [place] [address] Oct, [facility] [address] [id number] [place] [address] 16 Oct, 2012 [facility] [address] [id number] [place] [address] Sep, [facility] [address] [facility] [id number] [place] [address] Sep, [facility] [place] [facility] [address] [id number], [place] [address] Sep, [facility] [address] [id number] [place] [address] August, [facility] [address] [id number] [place] [address] Jun, [facility] [address] [id number] [place] [address] 20 Jun, 2012 [facility] [place] [facility] [address] [id number] [place] [address] 15 Jun, 2012 [facility] [address] [id number] [place] [address] 15 Jun, 2012 [facility] [address] [facility] [id number] [place] [address] Jun, [facility] [place] [facility] [address] [id number], [place] [address] Jun, [facility] [place] [facility] [address] [id number], [place] [address] Jun, [facility] [place] [facility] [address] [id number] [place] [address] May, [facility] [place] [facility] [address] [id number] [place] [address] May, [facility] [place] [facility] [address] [id number], [place] [address] 14 May, 2012 [facility] [place] [facility] [address] [id number] [place] [address] May, [facility] [place] [facility] [address] [id number] [place] [address] May, [facility] [place] [facility] [address] [id number] [place] [address] May, [facility] [place] [facility] [address] [id number] [place] [address] May, [facility] [place] [facility] [address] [id number] [place] [address] Mar, [facility] [place] [facility] [address] [id number] [place] [address] Mar, [facility] [place] [facility] [address] [id number] [place] [address] Mar, [facility] [place] [facility] [address] [id number] [place] [address] Mar, [facility] [address] [id number] [place] [address] Mar, [facility] [place] [facility] [address] [id number] [place] [address] Mar, [facility] [place] [facility] [address] [id number] [place] [address] Mar, [facility] [place] [facility] [address] [id number] [place] [address] Mar, [facility] [place] [facility] [address] [id number] [place] [address] Mar, [facility] [place] [facility] [address] [id number] [place] [address] Mar, [facility] [place] [facility] [address] [id number] [place] [address] Mar, [facility] [place] [facility] [address] [id number] [place] [address] Mar, [facility] [place] [facility] [address] [id number] [place] [address] Mar, [facility] [place] [facility] [address] [id number] [place] [address] Mar, [facility] [place] [facility] [address] [facility] [id number] [place] [address]- [address] Mar, [facility] [place] [facility] [address] [id number], [place] [address] Mar, [facility] [place] [facility] [address] [id number] [place] [address]- 284[address] Mar, [facility] [place] [facility] [address] [id number] [place] [address]265 Mar, [facility] [place] [facility] [address] [facility] [id number] [place] [address] Mar, [facility] [place] [facility] [address] [id number], [place] [address] Jan, [facility] [place] [facility] [address] [id number], [place] [address] Jan, [facility] [place] [facility] [address] [facility] [id number], [place] [address] Jan, [facility] [place] [facility] [address] [facility] [id number], [place] [address] Jan, [facility] [place] [facility] [address] [id number], [place] [address] Dec, [facility] [place] [facility] [address] [id number], [place] [address] 18 Dec, 2011 [facility] [place] [facility] [address] [facility] [id number], [place] [address] Dec, [facility] [place] [facility] [address] [facility] [id number], [place] [address] Nov, [facility] [place] [facility] [address] [facility] [id number], [place] [address] Nov, [facility] [address] [id number], [place] [address] Oct, [facility] [id number], [place] [address] Oct, [facility] [address] [id number], [place] [address] Oct, [facility] [address] [id number], [place] [address] Oct, [facility] [id number], [place] [address] Oct, [facility] [id number], [place] [address] Oct, IMMUNIZATIONS No Known Immunizations SOCIAL HISTORY Never Assessed REASON FOR VISIT 1 HR. TE/ XRAYS PLAN OF CARE Activity Details Follow Up prn Reason: VITAL SIGNS Height 63 in 2016-11-18 Heart Rate 83 bpm 2016-11-18 Blood pressure systolic 118 mmHg 2016-11-18 Blood pressure diastolic 71 mmHg 2016-11-18 MEDICATIONS Medication Instructions Dosage Frequency Start Date End Date Duration Status Albuterol Sulfate HFA 108 (90 Base) MCG/ACT Inhalation every 4 hrs 2 puffs as needed 4h May, Active Flonase 50 MCG/ACT Nasally Once a day 1 spray in each nostril 24h Sep, Active Albuterol Sulfate 0.63 MG/3ML Inhalation every 4 hrs 3 ml as needed 4h Jun, Active Gabapentin 300 MG Orally Three times a day 1 capsule 8h 30 May, 2016 30 day(s) Active Meloxicam 7.5 MG Orally 2 times a day 1 tablet 12h 30 Active Hydrochlorothiazide 50 MG TAKE ONE TABLET BY MOUTH ONCE DAILY 30 Active Celexa Active Risperdal 1 MG Orally 2 times a day 1 tablet 12h 30 Active Citalopram Hydrobromide 40 MG Orally Once a day 1 tablet 24h 30 Active Lamotrigine 100 MG Orally Once a day 1 tablet 24h 30 Active ZyrTEC 10 mg orally Once a day 1 tablet by Oral route 1 time per day 24h Active Protonix 20 MG Orally Once a day 1 tablet 24h 30 Active RESULTS No Results PROCEDURES Procedure Date Ordered Result Body Site INTRAORL-PERIAPICAL 1 FILM 86168 November 18, 2016 INTRAORL-PERIAPICAL EA ADD FILM November 18, 2016 EXTRAC ERUPTED TOOTH/EXPOSED ROOT November 18, 2016 INTRAORL-PERIAPICAL EA ADD FILM November 18, 2016 EXTRAC ERUPTED TOOTH/EXPOSED ROOT November 18, 2016 EXTRAC ERUPTED TOOTH/EXPOSED ROOT November 18, 2016 INSTRUCTIONS MEDICATIONS ADMINISTERED No Known Medications MEDICAL [...]
--- OUTSIDE RECORDS SUMMARY | 2018-05-15 06:34 | XMS REPORT ---
Author Author FAUZIA AMILCAR [facility] Address [address] [place] [address] Care Team Providers Care Tanker Driver Name Role Phone AMILCAR CAGE Unavailable PROBLEMS Type Condition ICD9-CM Code [id number] Code Onset Dates Condition Status SNOMED Code Problem Stress incontinence of urine N39.3 Active 79103868 Problem Neuropathy G62.9 Active 984694000 Problem Major depressive disorder, single episode, unspecified F32.9 Active 42607386 Problem Morbid (severe) obesity due to excess calories E66.01 Active 147230307 Problem Body mass index (BMI) of 45.0-49.9 in adult Z68.42 Active 489659066 Problem 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 Active 384293905 Problem Schizoaffective disorder, bipolar type F25.0 Active 74910313 Problem Primary osteoarthritis of left knee M17.12 Active 912403886 Problem Post-menopausal bleeding N95.0 Active 89923894 Problem Obstructive sleep apnea G47.33 Active 08413834 Problem Depression F32.9 Active 92515048 Problem Bipolar 1 disorder F31.9 Active 025396207 Problem Edema R60.9 Active 047750178 Problem GERD (gastroesophageal reflux disease) K21.9 Active 011108418 Problem Obesity E66.9 Active 813490094 Problem Joint pain of lower extremity M25.50 Active 01864166 Problem Environmental allergies Z91.09 Active 803891365 ALLERGIES No Information ENCOUNTERS Encounter Location Date Diagnosis [facility] [address] [facility] [id number] [address] Oct, [facility] [id number] [address] August, Neuropathy G62.9 [facility] [address] [id number] [address] August, [place] [id number] [place] [address] 29603- 1155 August, [place] [id number] [place] [address] 95308- 5040 Jul, [place] [id number] [place] [address] 46470- 8582 Jul, Primary osteoarthritis of left knee M17.12 [place] [address] 74388- 5973 Jul, Schizoaffective disorder, bipolar type F25.0 and 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 [place] [address] 20602- 6121 Jul, Prediabetes R73.03 ; Primary osteoarthritis of left knee M17.12 ; GERD (gastroesophageal reflux disease) K21.9 ; Bipolar 1 disorder F31.9 ; Depression F32.9 ; Environmental allergies Z91.09 ; Neuropathy G62.9 ; Edema R60.9 ; Body mass index (BMI) of 45.0-49.9 in adult Z68.42 and Morbid ( severe) obesity due to excess calories E66.01 [place] [id number] [place] [address] 50425- 9619 Jul, [place] [id number] [place] [address] 45895- 3129 Jun, [place] [id number] [place] [address] 71662- 7165 Jun, [place] [id number] [place] [address] 66792- 9679 Jun, Wound of right breast, initial encounter S21.001A and Prediabetes R73.03 [place] [id number] [place] [address] 42324- 7272 Jun, [place] [id number] [place] [address] 74174- 0138 May, GERD (gastroesophageal reflux disease) K21.9 [place] [id number] [place] [address] 29712- 5915 May, Primary osteoarthritis of left knee M17.12 [place] [id number] [place] [address] 76348- 6144 May, Schizoaffective disorder, bipolar type F25.0 and 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 [place] [address] 56696- 7594 May, Left medial knee pain M25.562 ; GERD (gastroesophageal reflux disease) K21.9 ; Depression F32.9 ; Neuropathy G62.9 ; Obesity E66.9 ; Prediabetes R73.03 and Edema R60.9 [place] [id number] [place] [address] 61718- 8531 14 Mar, 2017 [place] [address] 32064- 0616 08 Mar, 2017 [place] [address] 16797- 1310 05 Mar, 2017 Post-menopausal bleeding N95.0 and BMI 50.0-59.9, adult Z68.43 [place] [id number] [place] [address] 95704- 0321 Mar, [place] [id number] [place] [address] 06506- 1430 27 Mar, 2017 Schizoaffective disorder, bipolar type F25.0 and 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 [place] [id number] [place] [address] 34327- 6520 Mar, [place] [address] 95199- 2763 16 Mar, 2017 [place] [id number] [place] [address] 64624- 9939 10 Mar, 2017 Post-menopausal bleeding N95.0 ; Screening breast examination Z12.31 ; Screen for STD (sexually transmitted disease) Z11.3 ; Obesity E66.9 ; Family history of ovarian cancer Z80.41 and Family history of cervical cancer Z80.49 [place] [id number] [place] [address] 96009- 3616 Mar, [place] [id number] [place] [address] 22679- 5487 Mar, [place] [address] 54163- 3204 Jan, Schizoaffective disorder, bipolar type F25.0 and 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 [place] [address] 80722- 7194 Jan, Schizoaffective disorder, bipolar type F25.0 [place] [id number] [place] [address] 44053- 8829 Jan, [place] [address] 78224- 1449 Jan, Prediabetes R73.03 and Obesity E66.9 [place] [address] 03094- 7475 Jan, Encounter for immunization Z23 [place] [id number] [place] [address] 31927- 5779 Jan, [place] [id number] [place] [address] 33586- 2220 Dec, [place] [id number] [place] [address] 75224- 9391 Dec, [place] [address] 90050- 2907 Nov, Neuropathy G62.9 [facility] [id number] [place] [address] 87256- 8891 Nov, [place] [address] 13177- 2164 Nov, Schizoaffective disorder, bipolar type F25.0 [facility] [id number] [place] [address] 97802- 4451 Nov, Other senior care (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 Z79.899 and Schizoaffective disorder, bipolar type F25.0 [facility] [address] 07089- 7114 Oct, Schizoaffective disorder, bipolar type F25.0 ; Other ocean transportation intermediary (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 Z79.899 and 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 [facility] [address] [id number] Oct, Dental caries K02.9 [facility] [address] 13820- 0258 Sep, Neuropathy G62.9 [facility] [address] 54520- 3751 Sep, [facility] [address] 22711- 4899 Sep, Neuropathy G62.9 [facility] [address] 84604- 2524 Jul, Schizoaffective disorder, depressive type F25.1 [facility] [address] 49517- 5417 Jul, GERD (gastroesophageal reflux disease) K21.9 ; Joint pain of lower extremity M25.50 ; Environmental allergies Z91.09 ; Stress incontinence of urine N39.3 ; Neuropathy G62.9 ; Edema R60.9 and Acute pain of left knee M25.562 [facility] [id number] [place] [address] 29887- 7605 Jun, [facility] [id number] [place] [address] [id number] Jun, Dental examination Z01.20 [place] [id number] [place] [address] 58657- 2539 Jun, [place] [address] 26160- 0567 May, [place] [address] 33253- 2690 May, Bipolar 1 disorder F31.9 ; Joint pain of lower extremity M25.50 ; Environmental allergies Z91.09 ; Stress incontinence of urine N39.3 ; Major depressive disorder, single episode, unspecified F32.9 ; Dizzy R42 ; Schizoaffective disorder, unspecified F25.9 ; Neuropathy G62.9 ; Localized edema R60.0 and GERD (gastroesophageal reflux disease) K21.9 [place] [id number] [place] [address] 21176- 0885 May, Schizoaffective disorder, depressive type F25.1 [place] [address] 42195- 0765 May, Environmental allergies Z91.09 and Major depressive disorder , single episode, unspecified F32.9 [place] [address] 04113- 0272 Mar, Dental caries K02.9 [place] [address] 35585- 2008 Mar, Dental caries on smooth surface penetrating into pulp K02.63 [facility] [address] 67512 -2400 Mar, Peripheral edema R60.9 and Dry skin L85.3 [place] [address] 37391- 0839 Mar, [place] [address] 70107- 0385 Mar, Major depressive disorder, single episode, unspecified F32.9 [place] [address] 90962- 1888 09 Mar, 2016 Dental caries K02.9 [place] [address] 30975- 4655 07 Mar, 2016 Diabetes mellitus with complication E11.8 ; Urinary frequency R35.0 ; Stress incontinence of urine N39.3 ; Joint pain of lower extremity M25.50 ; Obesity E66.9 ; Environmental allergies Z91.09 ; Depression F32.9 ; Schizoaffective disorder, unspecified F25.9 ; Vaginal discharge N89.8 and Vaginal candidiasis B37.3 [place] [address] 77300- 5329 Jan, Schizoaffective disorder, unspecified F25.9 [place] [address] 41248- 1563 17 Jan, 2016 [place] [address] 33324- 6484 30 Dec, 2015 [place] [address] 86417- 9288 19 Dec, 2015 Dental caries K02.9 [place] [address] 50968- 2404 14 Dec, 2015 Obesity E66.9 ; Edema R60.9 ; Depression F32.9 ; Bipolar 1 disorder F31.9 ; 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 ; Environmental allergies Z91.09 ; Shortness of breath R06.02 ; Gastroesophageal reflux disease with esophagitis K21.0 ; Other chronic pain G89.29 ; Pain in right knee M25.561 ; Pain in left knee M25.562 and Encounter for immunization Z23 [place] [address] 70090- 4745 08 Nov, 2015 Dental caries K02.9 [place] [address] 36771- 7276 Oct, Schizoaffective disorder, unspecified F25.9 [place] [id number] [place] [address] 84491- 4028 12 Oct, 2015 Dental examination Z01.20 [facility] [address] 89802- 3889 Sep, Dental examination Z01.20 and Dental caries K02.9 [facility] [id number] [place] [address] 50441- 5938 Sep, [facility] [address] 76898- 2242 Sep, [facility] [id number] [place] [address] 60646- 3164 Sep, [facility] [id number] [place] [address] 32404- 9515 Sep, Schizoaffective disorder, unspecified F25.9 [facility] [address] 93123- 8521 August, Bipolar disorder, unspecified F31.9 [facility] [id number] [place] [address] 31248- 2712 Jul, Edema R60.9 and Obesity E66.9 [facility] [id number] [place] [address] 44854- 0570 Jul, Edema R60.9 [facility] [id number] [place] [address] 95441- 0734 Jul, Edema R60.9 [facility] [id number] [place] [address] 97091 -4976 Jul, Edema R60.9 [facility] [address] 90665- 5749 Jul, [facility] [id number] [place] [address] 33964- 7565 08 Jul, 2015 [facility] [address] 98118- 7040 24 Jun, 2015 Environmental allergies V15.09 and Cough R05 [facility] [id number] [place] [address] 12155- 2275 17 Jun, 2015 Environmental allergies V15.09 ; Edema R60.9 and Cough R05 [facility] [id number] [place] [address] 42052 -4510 12 Jun, 2015 Bronchospasm J98.01 [facility] [address] 05603- 4408 10 Jun, 2015 [facility] [address] 15949- 3399 Jun, [place] [address] 63595- 8729 08 Jun, 2015 Environmental allergies V15.09 ; Bipolar 1 disorder F31.9 ; GERD (gastroesophageal reflux disease) K21.9 ; Depression F32.9 ; Joint pain of lower extremity M25.50 ; COPD (chronic obstructive pulmonary disease) J44.9 and Screening for diabetes mellitus Z13.1 [place] [address] 61103- 3452 Jun, [place] [id number] [place] [address] 17594- 3996 May, [place] [id number] [place] [address] 50738- 9597 May, Schizoaffective disorder, unspecified F25.9 and Bipolar 1 disorder F31.9 [place] [id number] [place] [address] 76287- 8883 May, [place] [address] 78800- 1285 May, URI (upper respiratory infection) J06.9 ; Environmental allergies V15.09 and Cough R05 [place] [address] 09580- 8808 Mar, [place] [address] 06903- 7873 Mar, Vaginal discharge N89.8 [place] [address] 98232- 4580 Mar, Schizoaffective disorder, unspecified F25.9 ; Major depressive disorder, single episode, unspecified F32.9 and Bipolar 1 disorder F31.9 [place] [address] 33528- 0147 Mar, [place] [address] 41917- 5458 Mar, Bipolar 1 disorder F31.9 [place] [address] 20853- 2261 Jan, [place] [address] 48738- 7365 Jan, Allergic rhinitis J30.9 and Cough R05 [place] [address] 30456- 9551 Jan, 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 ; Bipolar 1 disorder F31.9 ; GERD ( gastroesophageal reflux disease) K21.9 ; Depression F32.9 and Joint pain of lower extremity M25.50 [place] [address] 85693- 3610 28 Dec, 2014 Encounter for immunization Z23 [place] [address] 46334- 8770 02 Dec, 2014 Schizoaffective disorder, unspecified 295.70 ; Pain in joint , lower leg 719.46 ; Esophageal reflux 530.81 ; Bipolar 1 disorder 296.7 ; Depression 311 ; GERD (gastroesophageal reflux disease) 530.81 and Environmental allergies V15.09 [facility] [address] [id number] Nov, Dental examination V72.2 [place] [address] 37903- 6866 Nov, Acute bronchitis 466.0 [facility] [id number] [place] [address] 42217- 2126 Nov, Schizoaffective disorder, unspecified 295.70 and Bipolar disorder, unspecified 296.80 [facility] [address] [id number] Sep, Dental examination V72.2 [facility] [id number] [place] [address] [id number] August, Dental examination V72.2 [facility] [id number] [place] [address] 94483- 6276 August, Schizoaffective disorder, unspecified 295.70 [facility] [id number] [place] [address] 96730 2546 August, [facility] [id number] [place] [address] 98545- 2276 August, Vomiting 787.03 [facility] [id number] [place] [address] 92916- 5176 August, Vomiting and diarrhea 787.03 and High risk medication use V58.69 [facility] [address] [id number] [address]- 0146 Jul, [facility] [id number] [place] [address] 84027- 2586 Jul, [facility] [id number] [place] [address] 78325- 1646 Jul, [facility] [id number] [place] [address] 36032- 1626 Jun, [facility] [id number] [place] [address] 51188- 1366 Jun, [facility] [id number] [place] [address] 07256- 9566 Jun, [facility] [place] [facility] [address] [id number] [place] [address]- 3355 17 Jun, 2014 [facility] [place] [facility] [address] [id number] [place] [address]- 9637 16 Jun, 2014 [facility] [place] [facility] [address] [id number] [place] [address]- 8566 13 Jun, 2014 [facility] [place] [facility] [address] [id number] [place] [address]- 8102 13 Jun, 2014 [facility] [place] [facility] [address] [id number] [place] [address]- 1231 Jun, 2014 [facility] [place] [facility] [address] [id number] [place] [address]- 1460 Jun, 2014 [facility] [place] [facility] [address] [id number] [place] [address]- 9075 Mar, [facility] [place] [facility] [address] [id number] [place] [address]- 0290 Mar, [facility] [place] [facility] [address] [id number] [place] [address]- 0455 Mar, [facility] [place] [facility] [address] [id number] [place] [address]- 7014 Mar, [facility] [place] [facility] [address] [facility] [id number] [place] [address]- 1235 Mar, [facility] [place] [facility] [address] [id number] [place] [address]- 6216 Mar, [facility] [place] [facility] [address] [id number] [place] [address]- 0453 Mar, [facility] [place] [facility] [address] [id number] [place] 1624 Mar, [facility] [place] [facility] [address] [id number] [place] [address]- 3725 Mar, [facility] [place] [facility] [address] [id number] [address]- 7315 Mar, [facility] [place] [facility] [address] [id number] [place] [address]- 0647 Jan, [facility] [place] [facility] [address] [id number] [place] [address]- 7694 Jan, [facility] [place] [facility] [address] [id number] [place] [address]- 3201 Jan, [facility] [place] [facility] [address] [id number] [place] [address]- 8718 Jan, [facility] [place] [facility] [address] [id number] [place] [address]- 2302 Jan, [facility] [place] [facility] [address] [id number] [place] [address]- 7753 Jan, [facility] [place] [facility] [address] [id number] [place] [address]- 1415 Jan, [facility] [place] [facility] [address] [id number] [place] [address]- 4514 Jan, [facility] [place] [facility] [address] [id number] [address]- 5848 19 Dec, 2013 [facility] [place] [facility] [address] [id number] [place] [address]- 2987 19 Dec, 2013 [facility] [place] [facility] [address] [id number] [address]- 0287 15 Dec, 2013 [facility] [place] [facility] [address] [id number] [address]- 6866 15 Dec, 2013 [facility] [place] [facility] [address] [id number] [address]- 1054 15 Dec, 2013 [facility] [place] [facility] [address] [id number] [address]- 3424 15 Dec, 2013 [facility] [place] [facility] [address] [id number] [place] [address]- 5299 12 Dec, 2013 [facility] [place] [facility] [address] [id number] [place] [address]- 3219 12 Dec, 2013 [facility] [place] [facility] [address] [id number] [place] [address]- 8236 Dec, [facility] [place] [facility] [address] [id number] [place] [address]- 2246 Dec, [facility] [place] [facility] [address] [id number] [place] [address]- 6201 Nov, [facility] [place] [facility] [address] [id number] [place] [address]- 0404 Nov, [facility] [place] [facility] [address] [id number] [place] [address]- 7145 Nov, [facility] [place] [facility] [address] [id number] [place] [address]- 9551 Nov, [facility] [place] [facility] [address] [id number] [place] [address]- 1115 Oct, [facility] [place] [facility] [address] [id number] [place] [address]- 3476 Oct, [facility] [place] [facility] [address] [id number] [place] [address]- 1346 Oct, [facility] [place] [facility] [address] [id number] [place] [address]- 7838 Oct, [facility] [place] [facility] [address] [id number] [place] [address]- 1741 Sep, [facility] [place] [facility] [address] [id number] [place] [address]- 8767 Sep, [facility] [place] [facility] [address] [id number] [place] [address]- 7036 Sep, [facility] [place] [facility] [address] [id number] [place] [address] Sep, [facility] [place] [facility] [address] [id number] [place] [address] Sep, [facility] [place] [facility] [address] [id number] [place] [address] Sep, [facility] [place] [facility] [address] [id number] [place] [address] Sep, [facility] [place] [facility] [address] [id number] [place] [address] Sep, [facility] [place] [facility] [address] [id number] [place] [address] August, [facility] [place] [facility] [address] [id number] [place] [address] August, [facility] [place] [facility] [address] [id number] [place] [address] Jul, [facility] [place] [facility] [address] [id number] [place] [address] Jul, [facility] [place] [facility] [address] [id number] [place] [address] Jul, [facility] [place] [facility] [address] [id number] [place] [address] Jul, [facility] [place] [facility] [address] [id number] [place] [address] Jul, [facility] [place] [facility] [address] [id number] [place] [address] Jul, [facility] [place] [facility] [address] [id number] [place] [address] Jul, [facility] [place] [facility] [address] [id number] [place] [address] Jul, [facility] [place] [facility] [address] [id number] [place] [address] Jul, [facility] [place] [facility] [address] [id number] [place] [address] Jul, [facility] [place] [facility] [address] [id number] [place] [address] 27 Jun, 2013 [facility] [place] [facility] [address] [id number] [place] [address] 27 Jun, 2013 [facility] [place] [facility] [address] [id number] [place] [address] 18 Jun, 2013 [facility] [place] [facility] [address] [id number] [place] [address] 18 Jun, 2013 [facility] [place] [facility] [address] [id number] [place] [address] 17 Jun, 2013 [facility] [place] [facility] [address] [id number] [place] [address]- [address] 17 Jun, 2013 [facility] [place] [facility] [address] [id number] [place] [address]- [address] 17 Jun, 2013 [facility] [place] [facility] [address] [id number] [place] [address] 17 Jun, 2013 [facility] [place] [facility] [address] [id number] [place] [address] 14 Jun, 2013 [facility] [place] [facility] [address] [id number] [place] [address] 14 Jun, 2013 [facility] [place] [facility] [address] [id number] [place] [address] Jun, [facility] [place] [facility] [address] [id number] [place] [address] Jun, [facility] [place] [facility] [address] [id number] [place] [address] Jun, [facility] [place] [facility] [address] [id number] [place] [address] Jun, [facility] [place] [facility] [address] [id number] [place] [address] Jun, [facility] [place] [facility] [address] [id number] [place] [address] 2016 Jun, [facility] [place] [facility] [address] [id number] [place] [address] May, [facility] [address] [id number] [place] [address] May, [facility] [address] [id number] [place] [address] May, [facility] [place] [facility] [address] [id number] [place] [address] May, [facility] [address] [id number] [place] [address] Mar, [facility] [place] [facility] [address] [id number] [place] [address] Mar, [facility] [address] [id number] [place] [address] Mar, [facility] [address] [id number] [place] [address] Mar, [facility] [place] [facility] [address] [id number] [place] [address] Mar, [facility] [place] [facility] [address] [id number] [address] Mar, [facility] [place] [facility] [address] [id number] [address] Mar, [facility] [place] [facility] [address] [id number] [address] Mar, [facility] [place] [facility] [address] [id number] [place] [address] Jan, [facility] [place] [facility] [address] [id number] [place] [address] Jan, [facility] [place] [facility] [address] [id number] [address] Jan, [facility] [place] [facility] [address] [id number] [address] Jan, [facility] [address] [id number] [place] [address] Jan, [facility] [place] [facility] [address] [id number] [address] Jan, [facility] [address] [id number] [place] [address] Jan, [facility] [place] [facility] [address] [id number] [place] [address] Dec, [facility] [address] [id number] [place] [address] Nov, [facility] [place] [facility] [address] [id number] [place] [address] Oct, [facility] [address] [facility] [id number] [address] Oct, [facility] [address] [id number] [place] [address] Sep, [facility] [address] [id number] [place] [address] Sep, [facility] [place] [facility] [address] [facility] [id number] [address] Sep, [facility] [place] [facility] [address] [id number] [place] [address] August, [facility] [place] [facility] [address] [facility] [id number] [place] [address] Jun, [facility] [place] [facility] [address] [id number] [place] [address] Jun, [facility] [place] [facility] [address] [id number] [address] Jun, [facility] [place] [facility] [address] [facility] [id number] [place] [address] Jun, [facility] [place] [facility] [address] [id number] [place] [address] 13 Jun, 2012 [facility] [address] [id number] [place] [address] Jun, [facility] [address] [id number] [place] [address] 07 Jun, 2012 [facility] [address] [id number] [place] [address] May, [facility] [address] [id number] [place] [address] May, [facility] [address] [id number] [place] [address] May, [facility] [address] [id number] [place] [address] May, [facility] [address] [id number] [place] [address] May, [facility] [address] [id number] [place] [address]298 May, [facility] [address] [id number] [place] [address] May, [facility] [address] [id number] [place] [address] Mar, [facility] [address] [id number] [place] [address]67 Mar, [facility] [address] [id number] [place] [address]- [address] Mar, [facility] [place] [facility] [address] [id number] [place] [address] Mar, [facility] [address] [id number] [place] [address] 2[address] Mar, [facility] [address] [id number] [place] [address] 4[address] Mar, [facility] [place] [facility] [address] [id number] [place] [address] 0363 Mar, [facility] [place] [facility] [address] [id number] [place] [address] Mar, [facility] [place] [facility] [address] [id number] [place] [address] 4802 Mar, [facility] [place] [facility] [address] [id number] [place] [address] 9534 Mar, [facility] [place] [facility] [address] [id number] [place] [address]- 9204 Mar, [facility] [place] [facility] [address] [id number] [place] [address]- 7[address] Mar, [facility] [place] [facility] [address] [id number] [place] [address]- 83[address] Mar, [facility] [place] [facility] [address] [id number] [place] [address]- 9967 Mar, [facility] [place] [facility] [address] [id number] [place] [address] 60[address] Mar, [facility] [place] [facility] [address] [id number] [place] [address] 0427 Mar, [facility] [place] [facility] [address] [id number] [place] [address] Mar, [facility] [place] [facility] [address] [id number] [place] [address]- [address] Mar, [facility] [place] [facility] [address] [id number] [place] [address] 1879 Mar, [facility] [place] [facility] [address] [id number] [place] [address] Jan, [facility] [place] [facility] [address] [id number] [place] [address]- 9528 Jan, [facility] [place] [facility] [id number] [address] Jan, [facility] [id number] [address] Jan, [facility] [id number] [address] Dec, [facility] [id number] [address] Dec, [facility] [id number] [address] Dec, [facility] [id number] [place] [address] Nov, [facility] [id number] [place] [address] Nov, [facility] [id number] [place] [address] Oct, [facility] [id number] [address] Oct, [facility] [address] [id number] [address] 4810 Oct, [facility] [address]65[address] [address]- [address] Oct, [facility] [address]65[address] [address] 9841 Oct, [facility] [address] [id number] [address] Oct, IMMUNIZATIONS No Known Immunizations SOCIAL HISTORY Never Assessed REASON FOR VISIT Requests return call PLAN OF CARE VITAL SIGNS MEDICATIONS Unknown Medications RESULTS No Results PROCEDURES No Known procedures INSTRUCTIONS MEDICATIONS ADMINISTERED No Known Medications MEDICAL (GENERAL) HISTORY Type Description Date Medical History bipolar disorder Medical History depression Medical History acid reflux Medical History hx of meth use 1998 Medical History DX sleep apnea 06/2016 Medical History History of methylenedioxymethamphetamine (MDMA) use Medical History History of methylenedioxymethamphetamine (MDMA) use Surgical History right knee arthroscopy x2 2005, 2007 Hospitalization History surgery Hospitalization History hospitalized psychiatrically x4, last incident prior to 2007
--- OUTSIDE RECORDS SUMMARY | 2018-05-15 06:35 | XMS REPORT ---
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 Mar 13, 2015 1 tablet Risperdal [facility] [address]-04 1 MG Orally TAKE ONE TABLET BY MOUTH TWICE DAILY Citalopram Hydrobromide [facility] [address]-97 40 MG Orally Once a day 1 tablet Albuterol Sulfate [facility] [address]-17 90 mcg/actuation Jun 17, 2013 2 puffs by Inhalation route every 4 hours as needed cough or wheezing Protonix [facility] [address]-75 20 MG Orally Once a day Feb 20, 2015 1 tablet ZyrTEC NDC 0 10 mg July 15, 2014 1 tablet by Oral route 1 time per day Flonase [facility] [address]-71 not defined Meloxicam [facility] [address]-30 7.5 MG Orally 2 times a day 1 tablet Procedures Procedure Coding System Code Date Office Visit, Est Pt., Level 3 CPT-4 69604 Mar 13, 2015 Vital Signs Date/Time: Mar 13, 2015 Cardiac Monitoring Heart Rate 76 bpm Weight 267 lbs Height 63 in BMI 47.29 Index Blood Pressure Diastolic 70 mmHg Blood Pressure Systolic 118 mmHg Results No Known Results Summary Purpose [employer] Submission
--- OUTSIDE RECORDS SUMMARY | 2018-05-15 06:35 | XMS REPORT ---
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 Name Role Phone SHENG FUNK CP Unavailable Allergies, Adverse Reactions, Alerts Substance Reaction Event Type Sulfamethoxazole rash Drug Allergy Penicillin V Potassium rash Drug Allergy Problems Problem Type Condition Code Onset Dates Condition Status Assessment Allergic rhinitis J30.9 Active Assessment Cough R05 Active Problem GERD (gastroesophageal reflux disease) K21.9 Active Problem Depression F32.9 Active Problem Bipolar 1 disorder F31.9 Active Problem Joint pain of lower extremity M25.50 Active Problem Environmental allergies V15.09 Active Problem 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 Problem 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 Active Medications Medication Code System Code Instructions Start Date End Date Status Dosage Citalopram Hydrobromide [facility] [address]-28 40 MG Orally Once a day 1 tablet [place] Carbonate [facility] [address]-88 300 MG Orally twice per day July 25, 2014 3 capsule by Oral route 2 times per day ZyrTEC NDC 0 10 mg July 15, 2014 1 tablet by Oral route 1 time per day Albuterol Sulfate [facility] [address]-44 90 mcg/actuation Jun 17, 2013 2 puffs by Inhalation route every 4 hours as needed cough or wheezing Meloxicam [facility] [address]-86 7.5 MG Orally 2 times a day 1 tablet Risperdal [facility] [address]-21 1 MG Orally TAKE ONE TABLET BY MOUTH TWICE DAILY Procedures Procedure Coding System Code Date Office Visit, Est Pt., Level 3 CPT-4 57276 Feb 19, 2015 Vital Signs Date/Time: Feb 19, 2015 Temperature 98.6 F Weight 255.6 lbs Height 63 in BMI 45.27 Index Blood Pressure Diastolic 78 mmHg Blood Pressure Systolic 126 mmHg Cardiac Monitoring Heart Rate 82 bpm Results No Known Results Summary Purpose [employer] Submission
--- OUTSIDE RECORDS SUMMARY | 2018-05-15 06:35 | XMS REPORT ---
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 Name Role Phone SAKINA, MONIQUE Unavailable PROBLEMS Type Condition ICD9-CM Code HGD00-CX Code Onset Dates Condition Status SNOMED Code Problem Stress incontinence of urine N39.3 Active 16505060 Problem Neuropathy G62.9 Active 792331657 Problem Major depressive disorder, single episode, unspecified F32.9 Active 05226962 Problem Morbid (severe) obesity due to excess calories E66.01 Active 573006316 Problem Body mass index (BMI) of 45.0-49.9 in adult Z68.42 Active 321924745 Problem 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 Active 827507346 Problem Schizoaffective disorder, bipolar type F25.0 Active 70291903 Problem Primary osteoarthritis of left knee M17.12 Active 970087067 Problem Post-menopausal bleeding N95.0 Active 00957793 Problem Depression F32.9 Active 95804186 Problem Bipolar 1 disorder F31.9 Active 719512402 Problem Edema R60.9 Active 608447399 Problem GERD (gastroesophageal reflux disease) K21.9 Active 499809782 Problem Obesity E66.9 Active 376024422 Problem Joint pain of lower extremity M25.50 Active 78965860 Problem Environmental allergies Z91.09 Active 063831043 ALLERGIES Substance Reaction Event Type Date Status Sulfamethoxazole-Trimethoprim Unknown Drug Allergy Jan, Active Penicillin V Potassium rash Drug Allergy Jan, Active ENCOUNTERS Encounter Location Date Diagnosis [facility] [address] [facility] [id number] [address] Oct, [facility] [address] [id number] [address] August, [facility] [address] [id number] [address] 134[address] August, [facility] [id number] [place] [address] 15749- 3092 Jul, [place] [address] 69089- 0852 Jul, Primary osteoarthritis of left knee M17.12 [place] [address] 48088- 1721 Jul, Schizoaffective disorder, bipolar type F25.0 and 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 [place] [address] 72604- 7045 Jul, Prediabetes R73.03 ; Primary osteoarthritis of left knee M17.12 ; GERD (gastroesophageal reflux disease) K21.9 ; Bipolar 1 disorder F31.9 ; Depression F32.9 ; Environmental allergies Z91.09 ; Neuropathy G62.9 ; Edema R60.9 ; Body mass index (BMI) of 45.0-49.9 in adult Z68.42 and Morbid ( severe) obesity due to excess calories E66.01 [place] [address] 66097- 6933 Jul, [place] [address] 01239- 0664 Jun, [place] [id number] [place] [address] 71792- 5593 Jun, [place] [address] 21371- 6211 Jun, Wound of right breast, initial encounter S21.001A and Prediabetes R73.03 [place] [address] 53680- 7371 Jun, [place] [address] 32150- 5573 May, GERD (gastroesophageal reflux disease) K21.9 [place] [address] [place] [address] 9169 May, Primary osteoarthritis of left knee M17.12 [place] [address] 80907- 6443 May, Schizoaffective disorder, bipolar type F25.0 and 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 [place] [address] 20838- 1826 04 May, 2017 Left medial knee pain M25.562 ; GERD (gastroesophageal reflux disease) K21.9 ; Depression F32.9 ; Neuropathy G62.9 ; Obesity E66.9 ; Prediabetes R73.03 and Edema R60.9 [place] [address] 97256- 7523 14 Mar, 2017 [place] [address] 87458- 0534 08 Mar, 2017 [place] [address] 19248- 5291 05 Mar, 2017 Post-menopausal bleeding N95.0 and BMI 50.0-59.9, adult Z68.43 [place] [id number] [place] [address] 26499- 6506 29 Mar, 2017 [place] [id number] [place] [address] 28843- 5895 27 Mar, 2017 Schizoaffective disorder, bipolar type F25.0 and 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 [place] [id number] [place] [address] 89943- 7713 27 Mar, 2017 [place] [address] 48989- 2122 16 Mar, 2017 [place] [id number] [place] [address] 38559- 9684 10 Mar, 2017 Post-menopausal bleeding N95.0 ; Screening breast examination Z12.31 ; Screen for STD (sexually transmitted disease) Z11.3 ; Obesity E66.9 ; Family history of ovarian cancer Z80.41 and Family history of cervical cancer Z80.49 [facility] [id number] [place] [address] 90165- 1546 Mar, [facility] [id number] [place] [address] 17972- 2276 Mar, [facility] [id number] [place] [address] 57903- 1665 Jan, Schizoaffective disorder, bipolar type F25.0 and 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 [facility] [id number] [place] [address] 49657- 2868 Jan, Schizoaffective disorder, bipolar type F25.0 [facility] [id number] [place] [address] 80141- 6435 Jan, [facility] [id number] [place] [address] 04707- 0728 Jan, Prediabetes R73.03 and Obesity E66.9 [facility] [id number] [place] [address] 11586- 1811 Jan, Encounter for immunization Z23 [facility] [id number] [place] [address] 67934- 6753 Jan, [facility] [id number] [place] [address] 13432- 1108 Dec, [facility] [id number] [place] [address] 99077- 0621 Dec, [facility] [id number] [place] [address] 53513- 6139 Nov, Neuropathy G62.9 [facility] [id number] [place] [address] 37140- 5413 Nov, [facility] [id number] [place] [address] 78573- 7279 Nov, Schizoaffective disorder, bipolar type F25.0 [facility] [id number] [place] [address] 90665- 7590 Nov, Other long-term (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 Z79.899 and Schizoaffective disorder, bipolar type F25.0 [facility] [id number] [place] [address] 74992- 6306 Oct, Schizoaffective disorder, bipolar type F25.0 ; 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 and 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 [facility] [id number] [place] [address] [id number] Oct, Dental caries K02.9 [facility] [address] 68321- 1582 Sep, Neuropathy G62.9 [facility] [address] 08967- 0966 Sep, [facility] [address] 69485- 8285 Sep, Neuropathy G62.9 [facility] [address] 43341- 0338 Jul, Schizoaffective disorder, depressive type F25.1 [facility] [id number] [place] [address] 06772- 6660 Jul, GERD (gastroesophageal reflux disease) K21.9 ; Joint pain of lower extremity M25.50 ; Environmental allergies Z91.09 ; Stress incontinence of urine N39.3 ; Neuropathy G62.9 ; Edema R60.9 and Acute pain of left knee M25.562 [facility] [address] 38739- 9257 Jun, [facility] [id number] [place] [address] [id number] Jun, Dental examination Z01.20 [facility] [address] 45492- 9443 Jun, [facility] [id number] [place] [address] 36002- 0208 May, [place] [address]35[address]- 2005 May, Bipolar 1 disorder F31.9 ; Joint pain of lower extremity M25.50 ; Environmental allergies Z91.09 ; Stress incontinence of urine N39.3 ; Major depressive disorder, single episode, unspecified F32.9 ; Dizzy R42 ; Schizoaffective disorder, unspecified F25.9 ; Neuropathy G62.9 ; Localized edema R60.0 and GERD (gastroesophageal reflux disease) K21.9 [place] [id number] [place] [address] 43065- 6129 May, Schizoaffective disorder, depressive type F25.1 [place] [address] 36641- 1812 May, Environmental allergies Z91.09 and Major depressive disorder , single episode, unspecified F32.9 [place] [id number] [place] [address] 64995- 1052 Mar, Dental caries K02.9 [place] [id number] [place] [address] 56775- 7650 Mar, Dental caries on smooth surface penetrating into pulp K02.63 [facility] [id number] [place] [address] 64794 -2563 Mar, Peripheral edema R60.9 and Dry skin L85.3 [place] [id number] [place] [address] 59465- 9332 Mar, [place] [id number] [place] [address] 24705- 8250 Mar, Major depressive disorder, single episode, unspecified F32.9 [place] [id number] [place] [address] 12380- 4669 Mar, Dental caries K02.9 [place] [id number] [place] [address] 82097- 3865 07 Mar, 2016 Diabetes mellitus with complication E11.8 ; Urinary frequency R35.0 ; Stress incontinence of urine N39.3 ; Joint pain of lower extremity M25.50 ; Obesity E66.9 ; Environmental allergies Z91.09 ; Depression F32.9 ; Schizoaffective disorder, unspecified F25.9 ; Vaginal discharge N89.8 and Vaginal candidiasis B37.3 [place] [address] 53312- 5987 Jan, Schizoaffective disorder, unspecified F25.9 [place] [address] 90527- 7766 Jan, [place] [address] 24474- 6410 30 Dec, 2015 [place] [address] 55515- 5709 19 Dec, 2015 Dental caries K02.9 [place] [address] 62000- 7990 14 Dec, 2015 Obesity E66.9 ; Edema R60.9 ; Depression F32.9 ; Bipolar 1 disorder F31.9 ; 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 ; Environmental allergies Z91.09 ; Shortness of breath R06.02 ; Gastroesophageal reflux disease with esophagitis K21.0 ; Other chronic pain G89.29 ; Pain in right knee M25.561 ; Pain in left knee M25.562 and Encounter for immunization Z23 [place] [id number] [place] [address] 89583- 7863 Nov, Dental caries K02.9 [place] [address] 91727- 9310 Oct, Schizoaffective disorder, unspecified F25.9 [place] [address] 50521- 2746 Oct, Dental examination Z01.20 [facility] [address], [place] [address]- 1310 Sep, Dental examination Z01.20 and Dental caries K02.9 [facility] [id number] [place] [address] 42666- 8482 13 Sep, 2015 [facility] [id number] [place] [address] 93705- 0516 Sep, [facility] [id number] [place] [address] 71953- 8472 Sep, [facility] [id number] [place] [address] 84761- 4710 Sep, Schizoaffective disorder, unspecified F25.9 [facility] [id number] [place] [address] 17015- 0847 August, Bipolar disorder, unspecified F31.9 [facility] [id number] [place] [address] 71479- 4274 Jul, Edema R60.9 and Obesity E66.9 [facility] [id number] [place] [address] 96531- 3340 Jul, Edema R60.9 [facility] [id number] [place] [address] 66713- 6037 Jul, Edema R60.9 [facility] [id number] [place] [address] 13017 -7799 Jul, Edema R60.9 [facility] [address] [place] [address] 78459- 7855 Jul, [facility] [id number] [place] [address] 13128- 7373 Jul, [facility] [address] [place] [address] 65276- 3413 Jun, Environmental allergies V15.09 and Cough R05 [facility] [id number] [place] [address] 38706- 3464 17 Jun, 2015 Environmental allergies V15.09 ; Edema R60.9 and Cough R05 [facility] [address] 26457 -9181 12 Jun, 2015 Bronchospasm J98.01 [facility] [address] 68826- 5116 10 Jun, 2015 [facility] [address] 24231- 5715 09 Jun, 2015 [place] [address] 61954- 5827 08 Jun, 2015 Environmental allergies V15.09 ; Bipolar 1 disorder F31.9 ; GERD (gastroesophageal reflux disease) K21.9 ; Depression F32.9 ; Joint pain of lower extremity M25.50 ; COPD (chronic obstructive pulmonary disease) J44.9 and Screening for diabetes mellitus Z13.1 [facility] [address] 06453- 8265 Jun, [place] [address] 50888- 4614 May, [place] [address] 87291- 7277 14 May, 2015 Schizoaffective disorder, unspecified F25.9 and Bipolar 1 disorder F31.9 [facility] [address] 15401- 4274 May, [facility] [address] 11267- 7556 May, URI (upper respiratory infection) J06.9 ; Environmental allergies V15.09 and Cough R05 [facility] [address] 50501- 1671 18 Mar, 2015 [facility] [address] 75814- 9881 15 Mar, 2015 Vaginal discharge N89.8 [place] [address] 17223- 9676 14 Mar, 2015 Schizoaffective disorder, unspecified F25.9 ; Major depressive disorder, single episode, unspecified F32.9 and Bipolar 1 disorder F31.9 [place] [address] 74092- 4419 Mar, [place] [address] 67836- 2304 Mar, Bipolar 1 disorder F31.9 [place] [address] 64833- 1028 Jan, [place] [address] 23837- 9356 Jan, Allergic rhinitis J30.9 and Cough R05 [place] [address] 61442- 8753 Jan, 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 ; Bipolar 1 disorder F31.9 ; GERD ( gastroesophageal reflux disease) K21.9 ; Depression F32.9 and Joint pain of lower extremity M25.50 [place] [address] 78977- 2905 28 Dec, 2014 Encounter for immunization Z23 [place] [address] 76887- 5170 02 Dec, 2014 Schizoaffective disorder, unspecified 295.70 ; Pain in joint , lower leg 719.46 ; Esophageal reflux 530.81 ; Bipolar 1 disorder 296.7 ; Depression 311 ; GERD (gastroesophageal reflux disease) 530.81 and Environmental allergies V15.09 [facility] [id number] [place] [address] [id number] Nov, Dental examination V72.2 [place] [address] 41079- 3789 Nov, Acute bronchitis 466.0 [facility] [address], [place] [address]- 3116 Nov, Schizoaffective disorder, unspecified 295.70 and Bipolar disorder, unspecified 296.80 [facility] [address] [id number] Sep, Dental examination V72.2 [facility] [id number] [place] [address] [id number] August, Dental examination V72.2 [facility] [id number] [place] [address] 74799- 6436 August, Schizoaffective disorder, unspecified 295.70 [facility] [id number] [place] [address] 13322 2546 August, [facility] [id number] [place] [address] 81960- 2766 August, Vomiting 787.03 [facility] [id number] [place] [address] 92476- 1436 August, Vomiting and diarrhea 787.03 and High risk medication use V58.69 [facility] [id number] [place] [address] 46623- 0616 Jul, [facility] [address], [place] [address]- 9236 Jul, [facility] [address], [place] [address]- 9256 Jul, [facility] [address] [place] [address] 03247- 4067 Jun, [facility] [id number] [place] [address] 56205- 2216 Jun, [facility] [address], [place] [address]- 7406 Jun, [facility] [id number] [place] [address] 36563- 3040 Jun, [facility] [place] [facility] [address] [id number] [place] [address]- 1627 16 Jun, 2014 [facility] [place] [facility] [address] [id number] [place] [address]- 3496 Jun, 2014 [facility] [place] [facility] [address] [id number] [place] [address]- 5306 Jun, 2014 [facility] [place] [facility] [address] [id number] [place] [address]- 8931 Jun, 2014 [facility] [place] [facility] [address] [id number] [place] [address]- 8824 Jun, 2014 [facility] [place] [facility] [address] [id number] [place] [address]- 7095 Mar, [facility] [place] [facility] [address] [id number] [place] [address]- 0853 Mar, [facility] [place] [facility] [address] [id number] [place] [address]- 6623 Mar, [facility] [place] [facility] [address] [id number] [place] [address]- 2958 Mar, [facility] [place] [facility] [address] [id number] [place] [address]- 1883 Mar, [facility] [place] [facility] [address] [id number] [place] [address]- 5992 Mar, [facility] [place] [facility] [address] [id number] [place] [address]- 6264 Mar, [facility] [place] [facility] [address] [id number] [place] 4066 Mar, [facility] [place] [facility] [address] [id number] [place] 5872 Mar, [facility] [place] [facility] [address] [id number] [place] 3069 Mar, [facility] [place] [facility] [address] [id number] [place] [address]- 6284 Jan, [facility] [place] [facility] [address] [id number] [place] [address]- 5431 Jan, [facility] [place] [facility] [address] [id number] [place] [address]- 5620 Jan, [facility] [place] [facility] [address] [id number] [place] [address]- 7051 Jan, [facility] [place] [facility] [address] [id number] [place] [address]- 0267 Jan, [facility] [place] [facility] [address] [id number] [place] [address]- 7338 Jan, [facility] [place] [facility] [address] [id number] [place] [address]- 3699 Jan, [facility] [place] [facility] [address] [id number] [place] [address]- 5883 Jan, [facility] [place] [facility] [address] [id number] [place] [address]- 8212 19 Dec, 2013 [facility] [place] [facility] [address] [id number] [place] [address]- 3636 19 Dec, 2013 [facility] [place] [facility] [address] [id number] [place] [address]- 7817 15 Dec, 2013 [facility] [place] [facility] [address] [id number] [place] [address]- 2543 15 Dec, 2013 [facility] [place] [facility] [address] [id number] [place] [address]- 2540 15 Dec, 2013 [facility] [place] [facility] [address] [id number] [place] [address]- 2775 15 Dec, 2013 [facility] [place] [facility] [address] [id number] [place] [address]- 8456 12 Dec, 2013 [facility] [place] [facility] [address] [id number] [place] [address]- 5314 Dec, [facility] [place] [facility] [address] [id number] [place] [address]- 5144 Dec, [facility] [place] [facility] [address] [id number] [place] [address]- 3137 Dec, [facility] [place] [facility] [address] [id number] [place] [address]- 3294 Nov, [facility] [place] [facility] [address] [id number] [place] [address]- 2826 Nov, [facility] [place] [facility] [address] [id number] [place] [address]- 9548 Nov, [facility] [place] [facility] [address] [id number] [place] [address]- 2065 Nov, [facility] [place] [facility] [address] [id number] [place] [address]- 5125 Oct, [facility] [place] [facility] [address] [id number] [place] [address]- 4230 Oct, [facility] [place] [facility] [address] [id number] [place] [address]- 4754 Oct, [facility] [place] [facility] [address] [id number] [place] [address]- 3877 Oct, [facility] [place] [facility] [address] [id number] [place] [address]- 9151 Sep, [facility] [place] [facility] [address] [id number] [place] [address]- 1361 Sep, [facility] [place] [facility] [address] [id number] [place] [address]- 3969 Sep, [facility] [place] [facility] [address] [id number] [place] [address]- 2835 Sep, [facility] [place] [facility] [address] [id number] [place] [address]- 5723 14 Sep, 2013 [facility] [place] [facility] [address] [id number] [place] [address]- 4718 Sep, [facility] [place] [facility] [address] [id number] [place] [address]- 7066 Sep, [facility] [place] [facility] [address] [id number] [place] [address]- 8381 Sep, [facility] [place] [facility] [address] [id number] [place] [address]- 6176 August, [facility] [place] [facility] [address] [id number] [place] [address] August, [facility] [place] [facility] [address] [id number] [place] [address] Jul, [facility] [place] [facility] [address] [id number] [place] [address] Jul, [facility] [place] [facility] [address] [id number] [place] [address] Jul, [facility] [place] [facility] [address] [id number] [place] [address] Jul, [facility] [place] [facility] [address] [id number] [place] [address] Jul, [facility] [place] [facility] [address] [id number] [place] [address] Jul, [facility] [place] [facility] [address] [id number] [place] [address] Jul, [facility] [place] [facility] [address] [id number] [place] [address] Jul, [facility] [place] [facility] [address] [id number] [place] [address] Jul, [facility] [place] [facility] [address] [id number] [place] [address] Jul, [facility] [place] [facility] [address] [id number] [place] [address] Jun, [facility] [place] [facility] [address] [id number] [place] [address] 27 Jun, 2013 [facility] [place] [facility] [address] [id number] [place] [address] 18 Jun, 2013 [facility] [place] [facility] [address] [id number] [place] [address]- [address] 18 Jun, 2013 [facility] [place] [facility] [address] [id number] [place] [address]- [address] 17 Jun, 2013 [facility] [place] [facility] [address] [id number] [place] [address] 17 Jun, 2013 [facility] [place] [facility] [address] [id number] [place] [address] 17 Jun, 2013 [facility] [place] [facility] [address] [id number] [place] [address]- [address] 17 Jun, 2013 [facility] [place] [facility] [address] [id number] [place] [address] 14 Jun, 2013 [facility] [place] [facility] [address] [id number] [place] [address]- [address] 14 Jun, 2013 [facility] [place] [facility] [address] [id number] [place] [address] 07 Jun, 2013 [facility] [place] [facility] [address] [id number] [place] [address]- [address] 07 Jun, 2013 [facility] [place] [facility] [address] [id number] [place] [address] Jun, [facility] [place] [facility] [address] [id number] [place] [address] Jun, [facility] [place] [facility] [address] [id number] [place] [address] 17 Jun, 2013 [facility] [place] [facility] [address] [id number] [place] [address] 17 Jun, 2013 [facility] [place] [facility] [address] [id number] [place] [address] May, [facility] [address] [id number] [place] [address] May, [facility] [place] [facility] [address] [id number] [place] [address] May, [facility] [place] [facility] [address] [id number] [place] [address] May, [facility] [place] [facility] [address] [id number] [place] [address] Mar, [facility] [place] [facility] [address] [id number] [place] [address] Mar, [facility] [place] [facility] [address] [id number] [place] [address] Mar, [facility] [place] [facility] [address] [id number] [place] [address] Mar, [facility] [place] [facility] [address] [id number] [place] [address] Mar, [facility] [place] [facility] [address] [id number] [place] [address] Mar, [facility] [place] [facility] [address] [id number] [place] [address] Mar, [facility] [place] [facility] [address] [id number], [place] [address] Mar, [facility] [place] [facility] [address] [id number], [place] [address] Jan, [facility] [place] [facility] [address] [id number] [place] [address] Jan, [facility] [place] [facility] [address] [id number] [place] [address] Jan, [facility] [place] [facility] [address] [id number] [place] [address] 17 Jan, 2013 [facility] [place] [facility] [address] [id number] [place] [address] 254 Jan, [facility] [address] [id number] [place] [address] Jan, [facility] [place] [facility] [address] [id number] [place] [address] Jan, [facility] [address] [id number] [place] [address] Dec, [facility] [address] [id number] [place] [address] Nov, [facility] [address] [id number] [place] [address] Oct, [facility] [address] [id number] [place] [address] Oct, [facility] [address] [id number] [place] [address] Sep, [facility] [address] [id number] [place] [address] Sep, [facility] [address] [id number] [place] [address] Sep, [facility] [address] [id number] [place] [address] August, [facility] [place] [facility] [address] [id number] [place] [address] Jun, [facility] [address] [id number] [place] [address] Jun, [facility] [place] [facility] [address] [id number] [place] [address] 15 Jun, 2012 [facility] [place] [facility] [address] [id number] [place] [address] 15 Jun, 2012 [facility] [place] [facility] [address] [id number] [place] [address] 13 Jun, 2012 [facility] [address] [id number] [place] [address] Jun, [facility] [place] [facility] [address] [id number] [place] [address] Jun, [facility] [place] [facility] [address] [facility] [id number] [place] [address] May, [facility] [place] [facility] [address] [id number] [place] [address] May, [facility] [place] [facility] [address] [id number] [place] [address] May, [facility] [place] [facility] [address] [id number] [place] [address] May, [facility] [place] [facility] [address] [facility] [id number] [place] [address] May, [facility] [place] [facility] [address] [id number] [place] [address] May, [facility] [address] [id number] [place] [address] May, [facility] [place] [facility] [address] [facility] [id number] [place] [address] Mar, [facility] [place] [facility] [address] [id number], [place] [address] Mar, [facility] [place] [facility] [address] [id number], [place] [address] Mar, [facility] [place] [facility] [address] [id number] [place] [address] Mar, [facility] [place] [facility] [address] [facility] [id number] [place] [address] Mar, [facility] [place] [facility] [address] [facility] [id number] [place] [address] Mar, [facility] [place] [facility] [address] [id number] [place] [address] Mar, [facility] [address] [id number] [place] [address] Mar, [facility] [place] [facility] [address] [id number] [place] [address] Mar, [facility] [place] [facility] [address] [id number] [place] [address] Mar, [facility] [place] [facility] [address] [id number] [place] [address] Mar, [facility] [place] [facility] [id number] [place] [address], [place] [address] Mar, [facility] [place] [facility] [address] [id number] [place] [address] Mar, [facility] [place] [facility] [address] [facility] [id number] [place] [address], [place] [address]- [address] Mar, [facility] [place] [facility] [address] [id number] [place] [address] Mar, [facility] [place] [facility] [address] [facility] [id number] [place] [address]- [address] Mar, [facility] [place] [facility] [address] [facility] [id number] [place] [address] Mar, [facility] [place] [facility] [address] [id number] [place] [address] Mar, [facility] [place] [facility] [address] [id number] [place] [address] Mar, [facility] [place] [facility] [address] [id number] [place] [address] Jan, [facility] [place] [facility] [address] [facility] [id number] [place] [address] Jan, [facility] [place] [facility] [address] [facility] [id number] [place] [address] Jan, [facility] [address] [id number], [place] [address] Jan, [facility] [id number], [place] [address] Dec, [facility] [id number], [place] [address] Dec, [facility] [id number], [place] [address] Dec, [facility] [id number] [address] [address] Nov, [facility] [id number], [place] [address] Nov, [facility] [id number], [place] [address] Oct, [facility] [address], [place] [address] Oct, [facility] [address], [place] [address] Oct, [facility] [address], [place] [address] Oct, [facility] [address], [place] [address] Oct, [facility] [address] [id number], [place] [address] Oct, IMMUNIZATIONS No Known Immunizations SOCIAL HISTORY Never Assessed REASON FOR VISIT f/u PLAN OF CARE Activity Details Follow Up 4 Weeks Reason: f/u VITAL SIGNS Height 63 in 2017-02-23 Weight 288.2 lbs 2017-02-23 Heart Rate 84 bpm 2017-02-23 Respiratory Rate 20 2017-02-23 BMI 51.05 kg/m2 2017-02-23 Blood pressure systolic 116 mmHg 2017-02-23 Blood pressure diastolic 72 mmHg 2017-02-23 MEDICATIONS Medication Instructions Dosage Frequency Start Date End Date Duration Status Lamictal 150 MG Orally Once a day 1 tablet 24h 26 Jan, 2017 30 day(s) Active Protonix 20 MG Orally Once a day 1 tablet 24h 30 Active Risperdal 1 MG Orally 2 times a day 1 tablet 12h Active Albuterol Sulfate 0.63 MG/3ML Inhalation every 4 hrs 3 ml as needed 4h Jun, Active Lamotrigine 100 MG Orally Once a day 1 tablet 24h 30 Active MetFORMIN HCl ER 500 mg Orally Once a day 1 tablet with evening meal 24h Jan, 90 days Active Risperdal 1 MG Orally 2 times a day 1 tablet 12h 30 Active Hydrochlorothiazide 50 MG TAKE ONE TABLET BY MOUTH ONCE DAILY 30 Active Albuterol Sulfate HFA 108 (90 Base) MCG/ACT Inhalation every 4 hrs 2 puffs as needed 4h May, Active ZyrTEC 10 mg orally Once a day 1 tablet by Oral route 1 time per day 24h Active Meloxicam 7.5 MG Orally 2 times a day 1 tablet 12h 30 Active Celexa 40 MG Orally Once [...]
--- OUTSIDE RECORDS SUMMARY | 2018-05-15 06:36 | XMS REPORT ---
Author NIYAH Baumann [facility] eClinicalWorks Address Unknown Phone Unavailable Care Team Providers Care Laundry Attendant Name Role Phone NIYAH RODRÍGUEZ CP Unavailable [...] Instructions Start Date End Date Status Dosage Protonix [facility] [address]-66 20 MG Orally Once a day Feb 20, 2015 1 tablet Results No Known Results Summary Purpose eClinicalWorks Submission
--- OUTSIDE RECORDS SUMMARY | 2018-05-15 06:36 | XMS REPORT ---
Author Author DANYELLE SÁNCHEZ eClinicalWorks Address Unknown Phone Unavailable Care Team Providers Care Global Sourcing Manager Name Role Phone DANYELLE SÁNCHEZ Unavailable Allergies No Known Allergies Problems Problem Type Condition ICD-9 Code Onset Dates Condition Status Problem Premenopausal menorrhagia 627.0 Active Assessment Dental examination V72.2 Active Problem Other and unspecified ovarian cyst 620.2 Active Problem Personal history of allergy to other foods V15.05 Active Problem Bipolar disorder, unspecified 296.80 Active Problem Unspecified breast screening V76.10 Active Problem Screening for malignant neoplasm of the cervix V76.2 Active Problem Acute serous otitis media 381.01 Active Problem Candidiasis of vulva and vagina 112.1 Active Problem Schizoaffective disorder, unspecified 295.70 Active Problem Encounter for long-term (current) use of other medications V58.69 Active Problem Unspecified gastritis and gastroduodenitis without mention of hemorrhage 535.50 Active Problem Pain in soft tissues of limb 729.5 Active Problem Candidiasis of skin and nails 112.3 Active Problem Depression 311 Active Problem GERD (gastroesophageal reflux disease) 530.81 Active Problem Unspecified disorder of skin and subcutaneous tissue 709.9 Active Problem Cough 786.2 Active Problem Bipolar 1 disorder 296.7 Active Problem Routine general medical examination at health care facility V70.0 Active Problem Esophageal reflux 530.81 Active Problem Pain in joint, shoulder region 719.41 Active Problem Environmental allergies V15.09 Active Problem Vomiting 787.03 Active Problem Dysphagia, unspecified 787.20 Active Problem Loss of weight 783.21 Active Problem Allergic rhinitis, cause unspecified 477.9 Active Problem Nausea with vomiting 787.01 Active Problem Pain in joint, lower leg 719.46 Active Problem Other acute otitis externa 380.22 Active Problem Need for prophylactic vaccination and inoculation, Influenza V04.81 Active Problem Acute sinusitis, unspecified 461.9 Active Medications No Known Medications Procedures Procedure Coding System Code Date INTRAORL-PERIAPICAL 1 FILM 35943 CPT-4 D0220 Dec 29, 2014 BITEWINGS - TWO FILMS CPT-4 D0272 Dec 29, 2014 LTD ORAL EVALUATION - PROBLEM FOCUS CPT-4 D0140 Dec 29, 2014 EXTRAC ERUPTED TOOTH/EXPOSED ROOT CPT-4 D7140 Dec 29, 2014 Results No Known Results Summary Purpose eClinicalWorks Submission
--- OUTSIDE RECORDS SUMMARY | 2018-05-15 06:36 | XMS REPORT ---
Author Author SAKINA MONIQUE [facility] Address [address] [place] [address] Care Team Providers Care Director Financial Planning Name Role Phone SAKINA, MONIQUE Unavailable PROBLEMS Type Condition ICD9-CM Code JQZ79-CT Code Onset Dates Condition Status SNOMED Code Problem Environmental allergies Z91.09 Active 273788540 Problem Schizoaffective disorder, unspecified F25.9 Active 16379483 Problem Stress incontinence of urine N39.3 Active 04530561 Problem Primary osteoarthritis of left knee M17.12 Active 121620231 Problem Post-menopausal bleeding N95.0 Active 30598049 Problem Neuropathy G62.9 Active 084970074 Problem Major depressive disorder, single episode, unspecified F32.9 Active 15103016 Problem Schizoaffective disorder, bipolar type F25.0 Active 33650419 Problem 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 Active 418797706 Problem PVD (peripheral vascular disease) I73.9 Active 824785699 Problem Joint pain of lower extremity M25.50 Active 75060162 Problem Bipolar 1 disorder F31.9 Active 356456826 Problem Depression F32.9 Active 05569833 Problem Edema R60.9 Active 356321654 Problem GERD (gastroesophageal reflux disease) K21.9 Active 415588997 Problem Obesity E66.9 Active 367155575 ALLERGIES Substance Reaction Event Type Date Status Sulfamethoxazole-Trimethoprim Unknown Drug Allergy Oct, Active Penicillin V Potassium rash Drug Allergy Oct, Active ENCOUNTERS Encounter Location Date Diagnosis [facility] [address] [facility] [id number] [address] Jul, [facility] [address] [id number] [address] Jul, [facility] [address] [facility] [id number], [place] [address] Jul, [place] [id number] [place] [address] 72031- 5647 Jul, [place] [id number] [place] [address] 39438- 8903 Jun, [facility] [id number] [place] [address] 34471- 5104 Jun, [place] [address] 17015- 9951 Jun, Wound of right breast, initial encounter S21.001A and Prediabetes R73.03 [place] [address] 42522- 8096 Jun, [place] [id number] [place] [address] 01494- 7890 May, GERD (gastroesophageal reflux disease) K21.9 [place] [id number] [place] [address] 97926- 4099 May, Primary osteoarthritis of left knee M17.12 [place] [id number] [place] [address] 11386- 2470 May, Schizoaffective disorder, bipolar type F25.0 and 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9, adult Z68.43 [facility] [address] [address] Mar, [facility] [id number] [place] [address] 27425- 5103 Mar, Schizoaffective disorder, bipolar type F25.0 and 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 [facility] [id number] [place] [address] 73948- 1271 Mar, [facility] [id number] [place] [address] 64360- 6407 Mar, [facility] [id number] [place] [address] 26839- 9284 Mar, Post-menopausal bleeding N95.0 ; Screening breast examination Z12.31 ; Screen for STD (sexually transmitted disease) Z11.3 ; Obesity E66.9 ; Family history of ovarian cancer Z80.41 and Family history of cervical cancer Z80.49 [place] [address] [address] 9614 Mar, [facility] [id number] [place] [address] 95020- 1907 Mar, [facility] [id number] [place] [address] 78683- 2730 Jan, Schizoaffective disorder, bipolar type F25.0 and 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 [facility] [address] [address] 9073 Jan, Schizoaffective disorder, bipolar type F25.0 [facility] [address], [place] [address] 3546 Jan, [facility] [address], [place] [address] 9883 Jan, Prediabetes R73.03 and Obesity E66.9 [facility] [address] [address] 7419 05 Jan, 2017 Encounter for immunization Z23 [facility] [id number] [place] [address], [place] [address]- 5375 Jan, [facility] [address] [address]- 8117 Dec, [facility] [id number] [place] [address] 89784- 5869 Dec, [facility] [id number] [place] [address] 47388- 4762 Nov, Neuropathy G62.9 [facility] [id number] [place] [address] 03037- 3422 Nov, [facility] [id number] [place] [address] 04756- 8417 Nov, Schizoaffective disorder, bipolar type F25.0 [facility] [id number] [place] [address] 39256- 3009 Nov, Other correction (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 Z79.899 and Schizoaffective disorder, bipolar type F25.0 [facility] [id number] [place] [address] 82935- 7920 Oct, Schizoaffective disorder, bipolar type F25.0 ; Other correction (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 Z79.899 and 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 [facility] [address] [id number] Oct, Dental caries K02.9 [facility] [id number] [place] [address] 86687- 3729 Sep, Neuropathy G62.9 [facility] [address], [place] [address]- 6849 Sep, [facility] [id number] [place] [address] 14061- 1609 Sep, Neuropathy G62.9 [facility] [id number] [place] [address] 28161- 5034 Jul, Schizoaffective disorder, depressive type F25.1 [facility] [id number] [place] [address] 28823- 6493 Jul, GERD (gastroesophageal reflux disease) K21.9 ; Joint pain of lower extremity M25.50 ; Environmental allergies Z91.09 ; Stress incontinence of urine N39.3 ; Neuropathy G62.9 ; Edema R60.9 and Acute pain of left knee M25.562 [facility] [id number] [place] [address] 68949- 9555 Jun, [facility] [address] [id number] Jun, Dental examination Z01.20 [place] [address] 69212- 4361 Jun, [facility] [id number] [place] [address] 42647- 9138 May, [facility] [address] 84816- 4634 May, Bipolar 1 disorder F31.9 ; Joint pain of lower extremity M25.50 ; Environmental allergies Z91.09 ; Stress incontinence of urine N39.3 ; Major depressive disorder, single episode, unspecified F32.9 ; Dizzy R42 ; Schizoaffective disorder, unspecified F25.9 ; Neuropathy G62.9 ; Localized edema R60.0 and GERD (gastroesophageal reflux disease) K21.9 [facility] [id number] [place] [address] 75799- 0525 May, Schizoaffective disorder, depressive type F25.1 [facility] [id number] [place] [address] 76314- 8736 May, Environmental allergies Z91.09 and Major depressive disorder , single episode, unspecified F32.9 [facility] [id number] [place] [address] 46311- 5229 Mar, Dental caries K02.9 [place] [address] 36903- 9350 Mar, Dental caries on smooth surface penetrating into pulp K02.63 [facility] [id number] [place] [address] 24422 -1641 Mar, Peripheral edema R60.9 and Dry skin L85.3 [place] [id number] [place] [address] 00575- 9458 Mar, [place] [address] 96423- 7147 Mar, Major depressive disorder, single episode, unspecified F32.9 [place] [id number] [place] [address] 66212- 4211 Mar, Dental caries K02.9 [place] [id number] [place] [address] 58729- 7782 Mar, Diabetes mellitus with complication E11.8 ; Urinary frequency R35.0 ; Stress incontinence of urine N39.3 ; Joint pain of lower extremity M25.50 ; Obesity E66.9 ; Environmental allergies Z91.09 ; Depression F32.9 ; Schizoaffective disorder, unspecified F25.9 ; Vaginal discharge N89.8 and Vaginal candidiasis B37.3 [place] [id number] [place] [address] 67613- 6536 Jan, Schizoaffective disorder, unspecified F25.9 [place] [address] [id number] [place] [address] 18332- 6656 Jan, [place] [id number] [place] [address] 67221- 4663 Dec, [place] [id number] [place] [address] 46482- 2485 Dec, Dental caries K02.9 [place] [id number] [place] [address] 04635- 5150 14 Dec, 2016 Obesity E66.9 ; Edema R60.9 ; Depression F32.9 ; Bipolar 1 disorder F31.9 ; 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 ; Environmental allergies Z91.09 ; Shortness of breath R06.02 ; Gastroesophageal reflux disease with esophagitis K21.0 ; Other chronic pain G89.29 ; Pain in right knee M25.561 ; Pain in left knee M25.562 and Encounter for immunization Z23 [place] [address] 14189- 3746 08 Nov, 2015 Dental caries K02.9 [place] [address] 49559- 4235 Oct, Schizoaffective disorder, unspecified F25.9 [place] [address] 08393- 6644 Oct, Dental examination Z01.20 [place] [address] 54294- 6158 20 Sep, 2015 Dental examination Z01.20 and Dental caries K02.9 [place] [id number] [place] [address] 61073- 6822 13 Sep, 2015 [place] [address] [id number] [place] [address] 98910- 9251 Sep, [place] [address] [id number] [place] [address] 47989- 2740 Sep, [place] [address] 30232- 7327 Sep, Schizoaffective disorder, unspecified F25.9 [place] [address] 37542- 3490 August, Bipolar disorder, unspecified F31.9 [place] [address] 99843- 7210 Jul, Edema R60.9 and Obesity E66.9 [facility] [id number] [place] [address] 08726- 9687 Jul, Edema R60.9 [facility] [id number] [place] [address] 26201- 8927 Jul, Edema R60.9 [facility] [address] 08203 -4064 Jul, Edema R60.9 [facility] [address] 80797- 2833 Jul, [place] [address] 64576- 0401 Jul, [place] [address] 08375- 5490 Jun, Environmental allergies V15.09 and Cough R05 [facility] [id number] [place] [address] 63534- 8416 17 Jun, 2015 Environmental allergies V15.09 ; Edema R60.9 and Cough R05 [facility] [id number] [place] [address] 34503 -0990 12 Jun, 2015 Bronchospasm J98.01 [place] [address] 37566- 5032 Jun, [place] [address] [id number] [place] [address] 69941- 3927 Jun, [facility] [id number] [place] [address] 85023- 6866 08 Jun, 2015 Environmental allergies V15.09 ; Bipolar 1 disorder F31.9 ; GERD (gastroesophageal reflux disease) K21.9 ; Depression F32.9 ; Joint pain of lower extremity M25.50 ; COPD (chronic obstructive pulmonary disease) J44.9 and Screening for diabetes mellitus Z13.1 [facility] [address] 81232- 2314 16 Jun, 2015 [facility] [id number] [place] [address] 68740- 0201 May, [place] [address] [id number] [place] [address] 27758- 9812 14 May, 2015 Schizoaffective disorder, unspecified F25.9 and Bipolar 1 disorder F31.9 [place] [address] 58014- 8187 May, [place] [address] 37888- 0298 May, URI (upper respiratory infection) J06.9 ; Environmental allergies V15.09 and Cough R05 [place] [address] [id number] [place] [address] 82457- 1376 18 Mar, 2015 [place] [address] 04163- 6121 Mar, Vaginal discharge N89.8 [place] [address] 69006- 3810 14 Mar, 2015 Schizoaffective disorder, unspecified F25.9 ; Major depressive disorder, single episode, unspecified F32.9 and Bipolar 1 disorder F31.9 [place] [address] [id number] [place] [address] 36477- 0969 Mar, [place] [id number] [place] [address] 36383- 7899 Mar, Bipolar 1 disorder F31.9 [place] [address] [place] [address] [id number] [place] [address] 84363- 8853 Jan, [place] [address] 74445- 0854 Jan, Allergic rhinitis J30.9 and Cough R05 [place] [id number] [place] [address] 37286- 1269 Jan, 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 ; Bipolar 1 disorder F31.9 ; GERD ( gastroesophageal reflux disease) K21.9 ; Depression F32.9 and Joint pain of lower extremity M25.50 [place] [address] 20060445- 4349 Dec, Encounter for immunization Z23 [place] [address] 29713- 1735 Dec, Schizoaffective disorder, unspecified 295.70 ; Pain in joint , lower leg 719.46 ; Esophageal reflux 530.81 ; Bipolar 1 disorder 296.7 ; Depression 311 ; GERD (gastroesophageal reflux disease) 530.81 and Environmental allergies V15.09 [facility] [address] [id number] Nov, Dental examination V72.[address] 67423- 0325 Nov, Acute bronchitis 466.[address] 31980- 2930 Nov, Schizoaffective disorder, unspecified 295.70 and Bipolar disorder, unspecified 296.80 [facility] [address] [id number] Sep, Dental examination V72.2 [facility] [address] [id number] August, Dental examination V72.2 [place] [id number] [place] [address] 85272- 1097 August, Schizoaffective disorder, unspecified 295.[address] 67429- 8443 August, [place] [address] 63453628- 8313 August, Vomiting 787.[address] 97325- 2296 August, Vomiting and diarrhea 787.03 and High risk medication use V58.69 [facility] [place] [address] [place] [address]- 0586 30 Jul, 2014 [facility] [address], [place] [address]- 7616 14 Jul, 2014 [facility] [address], [place] [address]- 0566 Jul, [facility] [address] [id number] [address]- 3846 Jun, [facility] [address] [place] [address] 63874- 8556 27 Jun, 2014 [facility] [id number] [place] [address], [place] [address]- 6756 Jun, [facility] [place] [id number] [place] [address] 38531- 4956 17 Jun, 2014 [facility] [place] [address], [place] [address]- 0880 16 Jun, 2014 [facility] [address] [place] [address], [place] [address]- 2243 Jun, [facility] [place] [address], [place] [address]- 3656 Jun, [facility] [place] [address], [place] [address]- 7426 Jun, [facility] [address], [place] [address]- 0786 Jun, [facility] [address] [place] [address]- 4506 Mar, [facility] [address], [place] [address]- 2266 Mar, [facility] [address], [place] [address]- 5099 Mar, [facility] [place] [facility] [address] [id number] [place] 3930 Mar, [facility] [place] [facility] [address] [id number] [place] 2114 Mar, [facility] [place] [facility] [address] [id number] [place] 6455 Mar, [facility] [place] [facility] [address] [id number] [place] [address]- 7413 Mar, [facility] [place] [facility] [address] [id number] [place] 7964 Mar, [facility] [place] [facility] [address] [id number] [place] 0861 Mar, [facility] [place] [facility] [address] [id number] [place] [address]- 3506 Mar, [facility] [place] [facility] [address] [id number] [place] [address]- 7065 Jan, [facility] [place] [facility] [address] [id number] [place] [address]- 4610 Jan, [facility] [place] [facility] [address] [id number], [place] [address]- 7383 Jan, [facility] [place] [facility] [address] [id number], [place] [address]- 8713 Jan, [facility] [place] [facility] [address] [id number], [place] [address]- 2210 Jan, [facility] [place] [facility] [address] [id number] [place] [address]- 8019 Jan, [facility] [place] [facility] [address] [id number] 2451 Jan, [facility] [place] [facility] [address] [id number]- 2113 Jan, [facility] [place] [facility] [address] [id number], [place] [address]- 9981 19 Dec, 2013 [facility] [place] [facility] [address] [id number] [place] [address] 2546 19 Dec, 2013 [facility] [place] [facility] [address] [id number] [place] [address]- 1126 15 Dec, 2013 [facility] [place] [facility] [address] [id number] [place] [address] 2546 15 Dec, 2013 [facility] [place] [facility] [address] [id number] [place] [address] 2542 15 Dec, 2013 [facility] [place] [facility] [address] [id number] [place] [address]- 5553 15 Dec, 2013 [facility] [place] [facility] [address] [id number] [place] [address]- 5778 12 Dec, 2013 [facility] [place] [facility] [address] [id number] [place] [address]- 3414 12 Dec, 2013 [facility] [place] [facility] [address] [id number] [place] [address]- 2756 Dec, [facility] [place] [facility] [address] [id number] [place] [address]- 0520 Dec, [facility] [place] [facility] [address] [id number] [place] [address]- 9997 Nov, [facility] [place] [facility] [address] [id number] [place] [address]- 0825 Nov, [facility] [place] [facility] [address] [id number] [place] [address]- 2543 Nov, [facility] [place] [facility] [address] [id number] [place] [address]- 5149 Nov, [facility] [place] [facility] [address] [id number] [place] [address]- 2577 Oct, [facility] [place] [facility] [address] [id number] [place] [address]- 4900 Oct, [facility] [place] [facility] [address] [id number] [place] [address]- 4658 Oct, [facility] [place] [facility] [address] [id number] [place] [address]- 6341 Oct, [facility] [place] [facility] [address] [id number] [place] [address]- 3726 Sep, [facility] [place] [facility] [address] [id number] [place] [address]- 4530 Sep, [facility] [place] [facility] [address] [id number] [place] [address]- 8212 Sep, [facility] [place] [facility] [address] [id number] [place] [address]- 1672 Sep, [facility] [place] [facility] [address] [id number] [place] [address]- 2382 Sep, [facility] [place] [facility] [address] [id number] [place] [address]- 4979 Sep, [facility] [place] [facility] [address] [id number] [place] [address]- 3387 Sep, [facility] [place] [facility] [address] [id number] [place] [address]- 1890 Sep, [facility] [place] [facility] [address] [id number] [place] [address]- 8423 August, [facility] [place] [facility] [address] [id number] [place] [address]- 0500 August, [facility] [place] [facility] [address] [id number] [place] [address]- 8177 Jul, [facility] [place] [facility] [address] [id number] [place] [address]- 9751 Jul, [facility] [place] [facility] [address] [id number] [place] [address]- 1873 Jul, [facility] [place] [facility] [address] [id number] [place] [address]- 2823 Jul, [facility] [place] [facility] [address] [id number] [place] [address] Jul, [facility] [place] [facility] [address] [id number] [place] [address] Jul, [facility] [place] [facility] [address] [id number] [place] [address] Jul, [facility] [place] [facility] [address] [id number] [place] [address] Jul, [facility] [place] [facility] [address] [id number] [place] [address] Jul, [facility] [place] [facility] [address] [id number] [place] [address] Jul, [facility] [place] [facility] [address] [id number] [place] [address] Jun, [facility] [place] [facility] [address] [id number] [place] [address] 27 Jun, 2013 [facility] [place] [facility] [address] [id number] [place] [address] 18 Jun, 2013 [facility] [place] [facility] [address] [id number] [place] [address] 18 Jun, 2013 [facility] [place] [facility] [address] [id number] [place] [address] 17 Jun, 2013 [facility] [place] [facility] [address] [id number] [place] [address] 17 Jun, 2013 [facility] [place] [facility] [address] [id number] [place] [address] 17 Jun, 2013 [facility] [place] [facility] [address] [id number] [place] [address] 17 Jun, 2013 [facility] [place] [facility] [address] [id number] [place] [address] 14 Jun, 2013 [facility] [place] [facility] [address] [id number] [place] [address] 14 Jun, 2013 [facility] [address] [id number] [place] [address] 07 Jun, 2013 [facility] [place] [facility] [address] [id number] [place] [address] Jun, [facility] [address] [id number] [place] [address] Jun, [facility] [place] [facility] [address] [id number] [place] [address] Jun, [facility] [address] [id number] [place] [address] Jun, [facility] [place] [facility] [address] [id number] [place] [address] Jun, [facility] [address] [id number] [place] [address] May, [facility] [address] [id number] [place] [address] May, [facility] [place] [facility] [address] [id number] [place] [address] May, [facility] [address] [id number] [place] [address] May, [facility] [address] [id number] [place] [address] Mar, [facility] [place] [facility] [address] [id number] [place] [address] Mar, [facility] [place] [facility] [address] [id number] [place] [address] Mar, [facility] [place] [facility] [address] [id number] [place] [address] Mar, [facility] [place] [facility] [address] [id number] [place] [address] Mar, [facility] [place] [facility] [address] [id number] [place] [address]- 5890 Mar, [facility] [place] [facility] [address] [id number] [place] [address] Mar, [facility] [place] [facility] [address] [id number] [place] [address] Mar, [facility] [place] [facility] [address] [id number] [place] [address] Jan, [facility] [place] [facility] [address] [id number] [place] [address] Jan, [facility] [place] [facility] [address] [id number] [place] [address] Jan, [facility] [place] [facility] [address] [id number] [place] [address] Jan, [facility] [place] [facility] [address] [id number], [place] [address] Jan, [facility] [place] [facility] [address] [id number] [place] [address] Jan, [facility] [place] [facility] [address] [id number], [place] [address] Jan, [facility] [place] [facility] [address] [id number], [place] [address] Dec, [facility] [place] [facility] [address] [id number], [place] [address] Nov, [facility] [place] [facility] [address] [id number] [place] [address] Oct, [facility] [place] [facility] [address] [id number], [place] [address] Oct, [facility] [place] [facility] [address] [id number], [place] [address] Sep, [facility] [place] [facility] [address] [id number], [place] [address] Sep, [facility] [address] [id number] [place] [address] Sep, [facility] [address] [id number] [place] [address] August, [facility] [address] [id number] [place] [address] Jun, [facility] [address] [id number] [place] [address] Jun, [facility] [address] [id number] [place] [address] Jun, [facility] [address] [id number] [place] [address] Jun, [facility] [address] [id number] [place] [address] Jun, [facility] [address] [id number] [place] [address] Jun, [facility] [address] [id number] [place] [address] Jun, [facility] [address] [id number] [place] [address] May, [facility] [address] [id number] [place] [address] May, [facility] [address] [id number] [place] [address] 14 May, 2012 [facility] [address] [id number] [place] [address] May, [facility] [address] [id number] [place] [address] 09 May, 2012 [facility] [address] [id number] [place] [address] May, [facility] [place] [facility] [address] [id number] [place] [address] May, [facility] [place] [facility] [address] [id number] [place] [address] 8399 Mar, [facility] [place] [facility] [address] [id number] [place] [address] Mar, [facility] [place] [facility] [address] [id number] [place] [address] 305[address] Mar, [facility] [address] [id number] [place] [address] 1684 Mar, [facility] [place] [facility] [address] [id number] [place] [address] 6[address] Mar, [facility] [address] [id number] [place] [address] Mar, [facility] [address] [id number] [place] [address] Mar, [facility] [place] [facility] [address] [id number] [place] [address] Mar, [facility] [place] [facility] [address] [id number] [place] [address] 75[address] Mar, [facility] [place] [facility] [address] [id number] [place] [address] Mar, [facility] [place] [facility] [address] [id number], [place] [address] Mar, [facility] [place] [facility] [address] [id number] [place] [address] 94[address] Mar, [facility] [place] [facility] [address] [id number] [place] [address] Mar, [facility] [place] [facility] [address] [id number] [place] [address] Mar, [facility] [place] [facility] [address] [id number], [place] [address] Mar, [facility] [place] [facility] [address] [id number] [place] [address] 49[address] Mar, [facility] [place] [facility] [address] [id number] [place] [address] 6[address] Mar, [facility] [place] [facility] [address] [facility] [id number] [place] [address] Mar, [facility] [place] [facility] [address] [id number] [place] [address] Mar, [facility] [place] [facility] [address] [id number] [place] [address] Jan, [facility] [place] [facility] [address] [id number] [place] [address] 9083 Jan, [facility] [place] [facility] [address] [id number] [place] [address] Jan, [facility] [place] [facility] [address] [id number] [place] [address] 68[address] Jan, [facility] [place] [facility] [address] [id number] [place] [address] 2[address] Dec, [facility] [place] [facility] [address] [id number] [place] [address]118 Dec, [facility] [place] [facility] [address] [id number] [place] [address] 2257 Dec, [facility] [place] [facility] [address] [id number] [place] [address] 3097 Nov, [facility] [place] [facility] [address] [id number] [place] [address] 4[address] Nov, [facility] [place] [facility] [address] [id number] [place] [address] 2714 Oct, [facility] [place] [facility] [address] [facility] [id number] [place] [address]707 Oct, [facility] [place] [facility] [address] [facility] [id number] [place] [address] Oct, [facility] [address] [facility] [id number], [place] [address] Oct, [facility] [address] [facility] [id number], [place] [address] Oct, [facility] [address] [facility] [id number], [place] [address] Oct, IMMUNIZATIONS No Known Immunizations SOCIAL HISTORY Never Assessed REASON FOR VISIT gisel Dowling RN PLAN OF CARE Activity Details Follow Up 3 Months Reason: f/u VITAL SIGNS Height 63 in 2016-11-23 Weight 287 lbs 2016-11-23 Heart Rate 76 bpm 2016-11-23 BMI 50.83 kg/m2 2016-11-23 Blood pressure systolic 122 mmHg 2016-11-23 Blood pressure diastolic 82 mmHg 2016-11-23 MEDICATIONS Medication Instructions Dosage Frequency Start Date End Date Duration Status Meloxicam 7.5 MG Orally 2 times a day 1 tablet 12h 30 Active Celexa 40 MG Orally Once a day 1 tablet 24h Active ZyrTEC 10 mg orally Once a day 1 tablet by Oral route 1 time per day 24h Active Hydrochlorothiazide 50 MG TAKE ONE TABLET BY MOUTH ONCE DAILY 30 Active Flonase 50 MCG/ACT Nasally Once a day 1 spray in each nostril 24h Sep, Active Albuterol Sulfate 0.63 MG/3ML Inhalation every 4 hrs 3 ml as needed 4h Jun, Active Protonix 20 MG Orally Once a day 1 tablet 24h 30 Active Risperdal 1 MG Orally 2 times a day 1 tablet 12h Active Albuterol Sulfate HFA 108 (90 Base) MCG/ACT Inhalation every 4 hrs 2 puffs as needed 4h May, Active Lamotrigine 100 MG Orally Once a day 1 tablet 24h Active Gabapentin 300 MG Orally Three times a day 1 capsule 8h May, 30 day(s) Active RESULTS No Results PROCEDURES No Known [...]
--- OUTSIDE RECORDS SUMMARY | 2018-05-15 06:36 | XMS REPORT ---
Author Author NIYAH RODRÍGUEZ Organization 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 Active 855259557 Problem Major depressive disorder, single episode, unspecified F32.9 Active 18203224 Problem Stress incontinence of urine N39.3 Active 76789635 Problem Acute pain of left knee M25.562 Active 21206735 Problem Neuropathy G62.9 Active 801672479 Problem Joint pain of lower extremity M25.50 Active 60602942 Problem 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 405392220 Problem PVD (peripheral vascular disease) I73.9 Active 257252013 Problem GERD (gastroesophageal reflux disease) K21.9 Active 795532800 Problem Edema R60.9 Active 534451078 Problem Bipolar 1 disorder F31.9 Active 109042217 Problem Cough R05 Active 38690817 Problem Depression F32.9 Active 67370779 Problem Obesity E66.9 Active 406278899 ALLERGIES No Information SOCIAL HISTORY Never Assessed PLAN OF CARE VITAL SIGNS MEDICATIONS Unknown Medications RESULTS No Results PROCEDURES No Known procedures IMMUNIZATIONS No Known Immunizations MEDICAL (GENERAL) HISTORY Type Description Date Medical History bipolar disorder Medical History depression Medical History acid reflux Medical History hx of meth use til 1998 Medical History DX sleep apnea 06/2016 Surgical History right knee arthroscopy x2 2004, 2006 Hospitalization History surgery Hospitalization History hospitalized psychiatrically x4, last incident prior to 2006
--- OUTSIDE RECORDS SUMMARY | 2018-05-15 06:36 | XMS REPORT ---
Author NIYAH Baumann [facility] eClinicalWorks Address Unknown Phone Unavailable Care Team Providers Care Burn Center Nurse Name Role Phone NIYAH RODRÍGUEZ CP Unavailable Allergies, Adverse Reactions, Alerts Substance Reaction Event Type Sulfamethoxazole rash Drug Allergy Penicillin V Potassium rash Drug Allergy Problems Problem Type Condition ICD-9 Code Onset Dates Condition Status Assessment Pain in joint, lower leg 719.46 Active Assessment Esophageal reflux 530.81 Active Problem Premenopausal menorrhagia 627.0 Active Assessment Schizoaffective disorder, unspecified 295.70 Active Problem Other and unspecified ovarian cyst [...] allergies V15.09 Active Problem Vomiting 787.03 Active Assessment Depression 311 Active Problem Dysphagia, unspecified 787.20 Active Assessment Bipolar 1 disorder 296.7 Active Problem Loss of weight 783.21 Active Assessment Environmental allergies V15.09 Active Problem Allergic rhinitis, cause unspecified 477.9 Active Assessment GERD (gastroesophageal reflux disease) 530.81 Active Problem Nausea with vomiting 787.01 Active Problem Pain in joint, lower leg 719.46 Active Problem Other acute otitis externa 380.22 Active Problem Need for prophylactic vaccination and inoculation, Influenza V04.81 Active Problem Acute sinusitis, unspecified 461.9 Active Medications Medication Code System Code Instructions Start Date End Date Status Dosage ZyrTEC [facility] 0 10 mg July 15, 2014 1 tablet by Oral route 1 time per day Flonase [facility] [address]-49 50 mcg/actuation August 29, 2013 1 sprays by Nasal route 2 times per day in each nostril Citalopram Hydrobromide [facility] [address]-91 40 MG Orally Once a day 1 tablet Mobic [facility] [address]-48 7.5 MG Orally 2 times a day Dec 31, 2014 Jan 30, 2015 1 tablet Risperdal [facility] [address]-17 1 MG Orally TAKE ONE TABLET BY MOUTH TWICE DAILY Albuterol Sulfate [facility] [address]-34 90 mcg/actuation Jun 17, 2013 2 puffs by Inhalation route every 4 hours as needed cough or wheezing Protonix [facility] [address]-33 20 MG Orally Once a day Feb 28, 2014 take 1 tablet (20 mg) by oral route once daily Trazodone HCl [facility] [address]-06 50 MG Orally Once a day Dec 11, 2014 1 tablet at bedtime as needed [place] Carbonate [facility] [address]-66 300 MG Orally twice per day July 25, 2014 3 capsule by Oral route 2 times per day Procedures Procedure Coding System Code Date COMPREHEN METABOLIC PANEL CPT-4 65865 Dec 31, 2014 LIPID PANEL CPT-4 37337 Dec 31, 2014 COMPLETE CBC W/AUTO DIFF WBC CPT-4 59056 Dec 31, 2014 VENIPUNCT, ROUTINE* CPT-4 86728 Dec 31, 2014 Office Visit, Est Pt., Level 4 CPT-4 85644 Dec 31, 2014 Vital Signs Date/Time: Dec 31, 2014 Temperature 97.5 F Weight 243 lbs Height 63 in BMI 43.04 Index Blood Pressure Diastolic 78 mmHg Blood Pressure Systolic 108 mmHg Cardiac Monitoring Heart Rate 72 bpm Results Name Result Date Reference Range Unit Abnormality Flag ROUTINE VENIPUNCTURE CBC Summary Purpose eClinicalWorks Submission
--- OUTSIDE RECORDS SUMMARY | 2018-05-15 06:36 | XMS REPORT ---
Author NIYAH Baumann [facility] eClinicalWorks Address Unknown Phone Unavailable Care Team Providers Care Java Programmer Analyst Name Role Phone NIYAH RODRÍGUEZ CP Unavailable [...]
--- OUTSIDE RECORDS SUMMARY | 2018-05-15 06:36 | XMS REPORT ---
Author CISCO Michele eClinicalWorks Address Unknown Phone Unavailable Care Team Providers Care Plastic Fixture Builder Name Role Phone CISCO POON CP Unavailable Allergies, Adverse Reactions, Alerts Substance Reaction Event Type Sulfamethoxazole-Trimethoprim Info Not Available Drug Allergy Penicillin V Potassium rash Drug Allergy Problems Problem Type Condition Code Onset Dates Condition Status Problem Environmental allergies V15.09 Active Problem 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 Active Problem Joint pain of lower extremity M25.50 Active Assessment Dental caries K02.9 Active Problem Edema R60.9 Active Problem Cough R05 Active Problem Obesity E66.9 Active Problem Depression F32.9 Active Problem 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 [address]-59 108 (90 Base) MCG/ACT Inhalation every 4 hrs May 12, 2015 2 puffs as needed Hydrochlorothiazide [facility] 46256113812 50 mg Orally Once a day 1 tablet Risperdal [facility] [address]-75 1 MG Orally TAKE ONE TABLET BY MOUTH TWICE DAILY Lamotrigine [facility] [address]-33 100 MG Orally Once a day October 06, 2015 1 tablet Albuterol Sulfate [facility] [address]-77 0.63 MG/3ML Inhalation every 4 hrs July 11, 2015 3 ml as needed Meloxicam [facility] 66484428389 7.5 MG Orally 2 times a day 1 tablet Protonix [facility] 63597787228 20 MG Orally Once a day 1 tablet Citalopram Hydrobromide [facility] 96909083470 40 MG Orally Once a day 1 tablet Flonase [facility] [address]-62 50 MCG/ACT Nasally Once a day October 06, 2015 1 spray in each nostril ZyrTEC [facility] 33542180870 10 mg orally Once a day 1 tablet by Oral route 1 time per day Promethazine [facility] [address]-28 6.25-5 MG/5ML Orally every 6 hrs June 5 ml as needed Procedures Procedure Coding System Code Date EXTRAC ERUPTED TOOTH/EXPOSED ROOT CPT-4 D7140 Dec 07, 2015 EXTRAC ERUPTED TOOTH/EXPOSED ROOT CPT-4 D7140 Dec 07, 2015 EXTRAC ERUPTED TOOTH/EXPOSED ROOT CPT-4 D7140 Dec 07, 2015 Vital Signs Date/Time: Dec 07, 2015 Blood Pressure Diastolic 66 mmHg Blood Pressure Systolic 108 mmHg Height 63 in Results No Known Results Summary Purpose eClinicalWorks Submission
--- OUTSIDE RECORDS SUMMARY | 2018-05-15 06:37 | XMS REPORT ---
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 [address]-59 50 mg Orally Once a day 1 tablet Results No Known Results Summary Purpose eClinicalWorks Submission
--- OUTSIDE RECORDS SUMMARY | 2018-05-15 06:41 | XMS REPORT ---
Author NIYAH Baumann [facility] eClinicalWorks Address Unknown Phone Unavailable Care Team Providers Care Hardwood Floor Sander Name Role Phone NIYAH RODRÍGUEZ CP Unavailable Allergies, Adverse Reactions, Alerts Substance Reaction Event Type Sulfamethoxazole-Trimethoprim Info Not Available Drug Allergy Penicillin V Potassium rash Drug Allergy Problems Problem Type Condition Code Onset Dates Condition Status Assessment Edema R60.9 Active Problem Joint pain of lower extremity M25.50 Active Problem Environmental allergies V15.09 Active Problem Cough R05 Active Problem Bipolar 1 disorder F31.9 Active Problem Edema R60.9 Active Problem 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 Problem 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 Active Problem GERD (gastroesophageal reflux disease) K21.9 Active Problem Depression F32.9 Active Medications Medication Code System Code Instructions Start Date End Date Status Dosage Albuterol Sulfate [facility] [address]-30 0.63 MG/3ML Inhalation every 4 hrs July 11, 2015 3 ml as needed Protonix [facility] 87871192372 20 MG Orally Once a day 1 tablet Lamictal [facility] [address]-24 25 MG Orally Twice a day Mar 13, 2015 1 tablet ZyrTEC [facility] 01697337436 10 mg orally Once a day 1 tablet by Oral route 1 time per day Risperdal [facility] [address]-86 1 MG Orally TAKE ONE TABLET BY MOUTH TWICE DAILY Flonase NDC 0 not defined Hydrochlorothiazide [facility] [address]-82 50 mg Orally Once a day August 21, 2015 1 tablet Meloxicam [facility] 40855024343 7.5 MG Orally 2 times a day 1 tablet Citalopram Hydrobromide [facility] [address]-39 40 MG Orally Once a day 1 tablet Procedures Procedure Coding System Code Date Office Visit, Est Pt., Level 3 CPT-4 76323 August 21, 2015 Vital Signs Date/Time: August 21, 2015 Temperature 98.5 F Weight 288.5 lbs Height 63 in BMI 51.10 Index Blood Pressure Diastolic 80 mmHg Blood Pressure Systolic 138 mmHg Cardiac Monitoring Heart Rate 80 bpm Results No Known Results Summary Purpose eClinicalWorks Submission
--- OUTSIDE RECORDS SUMMARY | 2018-05-15 06:43 | XMS REPORT ---
Author NIYAH Baumann [facility] eClinicalWorks Address Unknown Phone Unavailable Care Team Providers Care Employment Assistant Name Role Phone NIYAH RODRÍGUEZ CP Unavailable Allergies, Adverse Reactions, Alerts Substance Reaction Event Type Sulfamethoxazole rash Drug Allergy Penicillin V Potassium rash Drug Allergy Problems Problem Type Condition Code Onset Dates Condition Status Assessment Cough R05 Active Assessment URI (upper respiratory infection) J06.9 Active Assessment Environmental allergies V15.09 Active Problem GERD (gastroesophageal reflux disease) K21.9 Active Problem Depression F32.9 Active Problem Bipolar 1 disorder F31.9 Active Problem Joint pain of lower extremity M25.50 Active Problem Environmental allergies V15.09 Active Problem 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 [address]-49 90 mcg/actuation Jun 17, 2013 2 puffs by Inhalation route every 4 hours as needed cough or wheezing ZyrTEC NDC 0 10 mg July 15, 2014 1 tablet by Oral route 1 time per day Benzonatate [facility] [address]-73 200 MG Orally Three times a day May 12, 2015 1 capsule as needed Lamictal [facility] [address]-14 25 MG Orally Take one tab daily X2 weeks, then take one tab twice per day. Mar 13, 2015 1 tablet Risperdal [facility] [address]-07 1 MG Orally TAKE ONE TABLET BY MOUTH TWICE DAILY Citalopram Hydrobromide [facility] [address]-92 40 MG Orally Once a day 1 tablet Albuterol Sulfate HFA [facility] [address]-90 108 (90 Base) MCG/ACT Inhalation every 4 hrs May 12, 2015 2 puffs as needed Meloxicam [facility] 40196422214 7.5 MG Orally 2 times a day 1 tablet Flonase NDC 0 not defined Protonix [facility] [address]-57 20 MG Orally Once a day Feb 20, 2015 1 tablet Procedures Procedure Coding System Code Date DEXAMETHASONE 4MG/ML (PER 1 MG) CPT-4 J1100 May 12, 2015 THER/PROPH/DIAG INJ, SC/IM CPT-4 34051 May 12, 2015 Office Visit, Est Pt., Level 3 CPT-4 21974 May 12, 2015 DEPO MEDROL 40 MG/ML CPT-4 J1030 May 12, 2015 Vital Signs Date/Time: May 12, 2015 Temperature 98.3 F Weight 265.1 lbs Height 63 in BMI 46.96 Index Blood Pressure Diastolic 88 mmHg Blood Pressure Systolic 124 mmHg Cardiac Monitoring Heart Rate 76 bpm Results No Known Results Summary Purpose eClinicalWorks Submission
--- OUTSIDE RECORDS SUMMARY | 2018-05-15 06:44 | XMS REPORT ---
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 Name Role Phone AMILCAR CAGE Unavailable PROBLEMS Type Condition ICD9-CM Code PXI43-HH Code Onset Dates Condition Status SNOMED Code Problem Stress incontinence of urine N39.3 Active 87899305 Problem Neuropathy G62.9 Active 782086566 Problem Major depressive disorder, single episode, unspecified F32.9 Active 18668168 Problem Morbid (severe) obesity due to excess calories E66.01 Active 720215581 Problem Body mass index (BMI) of 45.0-49.9 in adult Z68.42 Active 147544723 Problem 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 Active 414748887 Problem Schizoaffective disorder, bipolar type F25.0 Active 43775603 Problem Primary osteoarthritis of left knee M17.12 Active 337373888 Problem Post-menopausal bleeding N95.0 Active 05319268 Problem Obstructive sleep apnea G47.33 Active 24115042 Problem Depression F32.9 Active 53109131 Problem Bipolar 1 disorder F31.9 Active 348344996 Problem Edema R60.9 Active 919905350 Problem GERD (gastroesophageal reflux disease) K21.9 Active 196873130 Problem Obesity E66.9 Active 842363231 Problem Joint pain of lower extremity M25.50 Active 84521866 Problem Environmental allergies Z91.09 Active 404973022 ALLERGIES No Information ENCOUNTERS Encounter Location Date Diagnosis [facility] [address] [facility] [id number] [address] Oct, [facility] [address] [address] August, Neuropathy G62.9 [facility] [address] [id number] [address] August, [place] [id number] [place] [address] 45094- 8009 August, [place] [id number] [place] [address] 32526- 4847 Jul, [place] [id number] [place] [address] 93491- 5443 Jul, Primary osteoarthritis of left knee M17.12 [place] [address] 58699- 7720 Jul, Schizoaffective disorder, bipolar type F25.0 and 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 [place] [address] 37704- 1481 Jul, Prediabetes R73.03 ; Primary osteoarthritis of left knee M17.12 ; GERD (gastroesophageal reflux disease) K21.9 ; Bipolar 1 disorder F31.9 ; Depression F32.9 ; Environmental allergies Z91.09 ; Neuropathy G62.9 ; Edema R60.9 ; Body mass index (BMI) of 45.0-49.9 in adult Z68.42 and Morbid ( severe) obesity due to excess calories E66.01 [place] [id number] [place] [address] 30337- 4348 Jul, [place] [id number] [place] [address] 07693- 6127 Jun, [place] [id number] [place] [address] 34400- 1521 Jun, [place] [id number] [place] [address] 95520- 7130 Jun, Wound of right breast, initial encounter S21.001A and Prediabetes R73.03 [place] [id number] [place] [address] 46333- 8534 Jun, [place] [id number] [place] [address] 91562- 6186 May, GERD (gastroesophageal reflux disease) K21.9 [place] [id number] [place] [address] 84278- 3309 May, Primary osteoarthritis of left knee M17.12 [place] [id number] [place] [address] 65762- 5286 May, Schizoaffective disorder, bipolar type F25.0 and 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 [place] [address] 03833- 8637 May, Left medial knee pain M25.562 ; GERD (gastroesophageal reflux disease) K21.9 ; Depression F32.9 ; Neuropathy G62.9 ; Obesity E66.9 ; Prediabetes R73.03 and Edema R60.9 [place] [id number] [place] [address] 57953- 6606 14 Mar, 2017 [place] [address] 81033- 1031 08 Mar, 2017 [place] [address] 38497- 9520 05 Mar, 2017 Post-menopausal bleeding N95.0 and BMI 50.0-59.9, adult Z68.43 [place] [id number] [place] [address] 24530- 0590 Mar, [place] [id number] [place] [address] 42897- 2907 27 Mar, 2017 Schizoaffective disorder, bipolar type F25.0 and 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 [place] [id number] [place] [address] 29107- 4760 Mar, [place] [address] 58124- 2211 16 Mar, 2017 [place] [id number] [place] [address] 53788- 5640 10 Mar, 2017 Post-menopausal bleeding N95.0 ; Screening breast examination Z12.31 ; Screen for STD (sexually transmitted disease) Z11.3 ; Obesity E66.9 ; Family history of ovarian cancer Z80.41 and Family history of cervical cancer Z80.49 [place] [id number] [place] [address] 34482- 6538 Mar, [place] [id number] [place] [address] 72350- 4690 Mar, [place] [address] 43856- 8194 Jan, Schizoaffective disorder, bipolar type F25.0 and 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 [place] [address] 85033- 4407 Jan, Schizoaffective disorder, bipolar type F25.0 [place] [id number] [place] [address] 64100- 1653 Jan, [place] [address] 23880- 8247 Jan, Prediabetes R73.03 and Obesity E66.9 [place] [address] 93536- 7711 Jan, Encounter for immunization Z23 [place] [id number] [place] [address] 94678- 4065 Jan, [place] [id number] [place] [address] 01442- 0395 Dec, [place] [id number] [place] [address] 46919- 2678 Dec, [place] [address] 93391- 2632 Nov, Neuropathy G62.9 [facility] [id number] [place] [address] 01646- 6227 Nov, [place] [address] 02918- 7310 Nov, Schizoaffective disorder, bipolar type F25.0 [facility] [id number] [place] [address] 61086- 8917 Nov, Other half-way (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 Z79.899 and Schizoaffective disorder, bipolar type F25.0 [facility] [address] 61295- 2015 Oct, Schizoaffective disorder, bipolar type F25.0 ; 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 and 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 [facility] [address] [id number] Oct, Dental caries K02.9 [facility] [address] 66042- 2743 Sep, Neuropathy G62.9 [facility] [address] 63148- 5110 Sep, [facility] [address] 06508- 3893 Sep, Neuropathy G62.9 [facility] [address] 05467- 5821 Jul, Schizoaffective disorder, depressive type F25.1 [facility] [address] 95759- 8507 Jul, GERD (gastroesophageal reflux disease) K21.9 ; Joint pain of lower extremity M25.50 ; Environmental allergies Z91.09 ; Stress incontinence of urine N39.3 ; Neuropathy G62.9 ; Edema R60.9 and Acute pain of left knee M25.562 [facility] [id number] [place] [address] 84065- 6733 Jun, [facility] [id number] [place] [address] [id number] Jun, Dental examination Z01.20 [place] [id number] [place] [address] 57086- 7901 Jun, [place] [address] 18096- 5180 May, [place] [address] 70825- 7669 May, Bipolar 1 disorder F31.9 ; Joint pain of lower extremity M25.50 ; Environmental allergies Z91.09 ; Stress incontinence of urine N39.3 ; Major depressive disorder, single episode, unspecified F32.9 ; Dizzy R42 ; Schizoaffective disorder, unspecified F25.9 ; Neuropathy G62.9 ; Localized edema R60.0 and GERD (gastroesophageal reflux disease) K21.9 [place] [id number] [place] [address] 70353- 9773 May, Schizoaffective disorder, depressive type F25.1 [place] [address] 41734- 8718 May, Environmental allergies Z91.09 and Major depressive disorder , single episode, unspecified F32.9 [place] [address] 85654- 8240 Mar, Dental caries K02.9 [place] [address] 76692- 1001 Mar, Dental caries on smooth surface penetrating into pulp K02.63 [facility] [address] 84235 -0339 Mar, Peripheral edema R60.9 and Dry skin L85.3 [place] [address] 98123- 5164 Mar, [place] [address] 43433- 6782 Mar, Major depressive disorder, single episode, unspecified F32.9 [place] [address] 62915- 4309 09 Mar, 2016 Dental caries K02.9 [place] [address] 18096- 9232 07 Mar, 2016 Diabetes mellitus with complication E11.8 ; Urinary frequency R35.0 ; Stress incontinence of urine N39.3 ; Joint pain of lower extremity M25.50 ; Obesity E66.9 ; Environmental allergies Z91.09 ; Depression F32.9 ; Schizoaffective disorder, unspecified F25.9 ; Vaginal discharge N89.8 and Vaginal candidiasis B37.3 [place] [address] 43397- 6481 Jan, Schizoaffective disorder, unspecified F25.9 [place] [address] 40290- 3680 17 Jan, 2016 [place] [address] 06967- 5486 30 Dec, 2015 [place] [address] 46619- 0829 19 Dec, 2015 Dental caries K02.9 [place] [address] 52510- 8758 14 Dec, 2015 Obesity E66.9 ; Edema R60.9 ; Depression F32.9 ; Bipolar 1 disorder F31.9 ; 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 ; Environmental allergies Z91.09 ; Shortness of breath R06.02 ; Gastroesophageal reflux disease with esophagitis K21.0 ; Other chronic pain G89.29 ; Pain in right knee M25.561 ; Pain in left knee M25.562 and Encounter for immunization Z23 [place] [address] 56782- 7710 08 Nov, 2015 Dental caries K02.9 [place] [address] 64245- 5189 Oct, Schizoaffective disorder, unspecified F25.9 [place] [id number] [place] [address] 31489- 2026 12 Oct, 2015 Dental examination Z01.20 [facility] [address] 56393- 4152 Sep, Dental examination Z01.20 and Dental caries K02.9 [facility] [id number] [place] [address] 80645- 0143 Sep, [facility] [address] 65251- 5437 Sep, [facility] [id number] [place] [address] 45638- 8431 Sep, [facility] [id number] [place] [address] 71149- 9701 Sep, Schizoaffective disorder, unspecified F25.9 [facility] [address] 37282- 3543 August, Bipolar disorder, unspecified F31.9 [facility] [id number] [place] [address] 90551- 1640 Jul, Edema R60.9 and Obesity E66.9 [facility] [id number] [place] [address] 07136- 5098 Jul, Edema R60.9 [facility] [id number] [place] [address] 29641- 1053 Jul, Edema R60.9 [facility] [id number] [place] [address] 03741 -9766 Jul, Edema R60.9 [facility] [address] 88846- 5162 Jul, [facility] [id number] [place] [address] 32106- 0898 08 Jul, 2015 [facility] [address] 81170- 2965 24 Jun, 2015 Environmental allergies V15.09 and Cough R05 [facility] [id number] [place] [address] 94122- 7817 17 Jun, 2015 Environmental allergies V15.09 ; Edema R60.9 and Cough R05 [facility] [id number] [place] [address] 78132 -2618 12 Jun, 2015 Bronchospasm J98.01 [facility] [address] 05635- 1099 10 Jun, 2015 [facility] [address] 67841- 4876 Jun, [place] [address] 51810- 9648 08 Jun, 2015 Environmental allergies V15.09 ; Bipolar 1 disorder F31.9 ; GERD (gastroesophageal reflux disease) K21.9 ; Depression F32.9 ; Joint pain of lower extremity M25.50 ; COPD (chronic obstructive pulmonary disease) J44.9 and Screening for diabetes mellitus Z13.1 [place] [address] 42839- 6535 Jun, [place] [id number] [place] [address] 25381- 6223 May, [place] [id number] [place] [address] 87609- 3479 May, Schizoaffective disorder, unspecified F25.9 and Bipolar 1 disorder F31.9 [place] [id number] [place] [address] 92633- 2313 May, [place] [address] 44222- 8322 May, URI (upper respiratory infection) J06.9 ; Environmental allergies V15.09 and Cough R05 [place] [address] 95052- 2580 Mar, [place] [address] 54105- 7549 Mar, Vaginal discharge N89.8 [place] [address] 22534- 7889 Mar, Schizoaffective disorder, unspecified F25.9 ; Major depressive disorder, single episode, unspecified F32.9 and Bipolar 1 disorder F31.9 [place] [address] 89528- 4294 Mar, [place] [address] 25707- 2746 Mar, Bipolar 1 disorder F31.9 [place] [address] 44934- 1207 Jan, [place] [address] 87174- 6111 Jan, Allergic rhinitis J30.9 and Cough R05 [place] [address] 18567- 1721 Jan, 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 ; Bipolar 1 disorder F31.9 ; GERD ( gastroesophageal reflux disease) K21.9 ; Depression F32.9 and Joint pain of lower extremity M25.50 [place] [address] 34785- 8060 28 Dec, 2014 Encounter for immunization Z23 [place] [address] 13241- 3219 02 Dec, 2014 Schizoaffective disorder, unspecified 295.70 ; Pain in joint , lower leg 719.46 ; Esophageal reflux 530.81 ; Bipolar 1 disorder 296.7 ; Depression 311 ; GERD (gastroesophageal reflux disease) 530.81 and Environmental allergies V15.09 [facility] [address] [id number] Nov, Dental examination V72.2 [place] [address] 92993- 1776 Nov, Acute bronchitis 466.0 [facility] [id number] [place] [address] 91389- 3446 Nov, Schizoaffective disorder, unspecified 295.70 and Bipolar disorder, unspecified 296.80 [facility] [address] [id number] Sep, Dental examination V72.2 [facility] [id number] [place] [address] [id number] August, Dental examination V72.2 [facility] [id number] [place] [address] 94593- 5356 August, Schizoaffective disorder, unspecified 295.70 [facility] [id number] [place] [address] 10931 2546 August, [facility] [id number] [place] [address] 95984- 7856 August, Vomiting 787.03 [facility] [id number] [place] [address] 61494- 7816 August, Vomiting and diarrhea 787.03 and High risk medication use V58.69 [facility] [address] [id number] [address]- 0836 Jul, [facility] [id number] [place] [address] 50061- 4546 Jul, [facility] [id number] [place] [address] 30767- 1826 Jul, [facility] [id number] [place] [address] 25092- 8326 Jun, [facility] [id number] [place] [address] 36107- 4556 Jun, [facility] [id number] [place] [address] 13521- 3886 Jun, [facility] [place] [facility] [address] [id number] [place] [address]- 4688 17 Jun, 2014 [facility] [place] [facility] [address] [id number] [place] [address]- 1190 16 Jun, 2014 [facility] [place] [facility] [address] [id number] [place] [address]- 7746 13 Jun, 2014 [facility] [place] [facility] [address] [id number] [place] [address]- 5664 13 Jun, 2014 [facility] [place] [facility] [address] [id number] [place] [address]- 7453 Jun, 2014 [facility] [place] [facility] [address] [id number] [place] [address]- 3064 Jun, 2014 [facility] [place] [facility] [address] [id number] [place] [address]- 9110 Mar, [facility] [place] [facility] [address] [id number] [place] [address]- 6519 Mar, [facility] [place] [facility] [address] [id number] [place] [address]- 2053 Mar, [facility] [place] [facility] [address] [id number] [place] [address]- 4734 Mar, [facility] [place] [facility] [address] [facility] [id number] [place] [address]- 8323 Mar, [facility] [place] [facility] [address] [id number] [place] [address]- 0163 Mar, [facility] [place] [facility] [address] [id number] [place] [address]- 7409 Mar, [facility] [place] [facility] [address] [id number] [place] 2647 Mar, [facility] [place] [facility] [address] [id number] [place] [address]- 9873 Mar, [facility] [place] [facility] [address] [id number] [address]- 1192 Mar, [facility] [place] [facility] [address] [id number] [place] [address]- 2242 Jan, [facility] [place] [facility] [address] [id number] [place] [address]- 5138 Jan, [facility] [place] [facility] [address] [id number] [place] [address]- 5414 Jan, [facility] [place] [facility] [address] [id number] [place] [address]- 0038 Jan, [facility] [place] [facility] [address] [id number] [place] [address]- 6575 Jan, [facility] [place] [facility] [address] [id number] [place] [address]- 4371 Jan, [facility] [place] [facility] [address] [id number] [place] [address]- 9537 Jan, [facility] [place] [facility] [address] [id number] [place] [address]- 0920 Jan, [facility] [place] [facility] [address] [id number] [address]- 0143 19 Dec, 2013 [facility] [place] [facility] [address] [id number] [place] [address]- 6473 19 Dec, 2013 [facility] [place] [facility] [address] [id number] [address]- 4839 15 Dec, 2013 [facility] [place] [facility] [address] [id number] [address]- 7136 15 Dec, 2013 [facility] [place] [facility] [address] [id number] [address]- 7838 15 Dec, 2013 [facility] [place] [facility] [address] [id number] [address]- 7600 15 Dec, 2013 [facility] [place] [facility] [address] [id number] [place] [address]- 8984 12 Dec, 2013 [facility] [place] [facility] [address] [id number] [place] [address]- 7896 12 Dec, 2013 [facility] [place] [facility] [address] [id number] [place] [address]- 6019 Dec, [facility] [place] [facility] [address] [id number] [place] [address]- 8086 Dec, [facility] [place] [facility] [address] [id number] [place] [address]- 9767 Nov, [facility] [place] [facility] [address] [id number] [place] [address]- 2176 Nov, [facility] [place] [facility] [address] [id number] [place] [address]- 7996 Nov, [facility] [place] [facility] [address] [id number] [place] [address]- 0705 Nov, [facility] [place] [facility] [address] [id number] [place] [address]- 9400 Oct, [facility] [place] [facility] [address] [id number] [place] [address]- 6072 Oct, [facility] [place] [facility] [address] [id number] [place] [address]- 7282 Oct, [facility] [place] [facility] [address] [id number] [place] [address]- 4189 Oct, [facility] [place] [facility] [address] [id number] [place] [address]- 1909 Sep, [facility] [place] [facility] [address] [id number] [place] [address]- 4937 Sep, [facility] [place] [facility] [address] [id number] [place] [address]- 8796 Sep, [facility] [place] [facility] [address] [id number] [place] [address]- 3857 Sep, [facility] [place] [facility] [address] [id number] [place] [address]- 5328 Sep, [facility] [place] [facility] [address] [id number] [place] [address]- 2511 Sep, [facility] [place] [facility] [address] [id number] [place] [address]- 1790 Sep, [facility] [place] [facility] [address] [id number] [place] [address]- 4571 Sep, [facility] [place] [facility] [address] [id number] [place] [address]- 2264 August, [facility] [place] [facility] [address] [id number] [place] [address]- 5973 August, [facility] [place] [facility] [address] [id number] [place] [address]- 5702 Jul, [facility] [place] [facility] [address] [id number] [place] [address] Jul, [facility] [place] [facility] [address] [id number] [place] [address] Jul, [facility] [place] [facility] [address] [id number] [place] [address] Jul, [facility] [place] [facility] [address] [id number] [place] [address] Jul, [facility] [place] [facility] [address] [id number] [place] [address] Jul, [facility] [place] [facility] [address] [id number] [place] [address] Jul, [facility] [place] [facility] [address] [id number] [place] [address] Jul, [facility] [place] [facility] [address] [id number] [place] [address] Jul, [facility] [place] [facility] [address] [id number] [place] [address] Jul, [facility] [place] [facility] [address] [id number] [place] [address] 27 Jun, 2013 [facility] [place] [facility] [address] [id number] [place] [address] 27 Jun, 2013 [facility] [place] [facility] [address] [id number] [place] [address] 18 Jun, 2013 [facility] [place] [facility] [address] [id number] [place] [address] 18 Jun, 2013 [facility] [place] [facility] [address] [id number] [place] [address] 17 Jun, 2013 [facility] [place] [facility] [address] [id number] [place] [address] 17 Jun, 2013 [facility] [place] [facility] [address] [id number] [place] [address] 17 Jun, 2013 [facility] [place] [facility] [address] [id number] [place] [address] 17 Jun, 2013 [facility] [place] [facility] [address] [id number] [place] [address] 14 Jun, 2013 [facility] [place] [facility] [address] [id number] [place] [address] 14 Jun, 2013 [facility] [place] [facility] [address] [id number] [place] [address] Jun, [facility] [place] [facility] [address] [id number] [place] [address] Jun, [facility] [place] [facility] [address] [id number] [place] [address] Jun, [facility] [place] [facility] [address] [id number] [place] [address] Jun, [facility] [place] [facility] [address] [id number] [place] [address] Jun, [facility] [place] [facility] [address] [id number] [place] [address] Jun, [facility] [place] [facility] [address] [id number] [place] [address] May, [facility] [address] [id number] [place] [address] May, [facility] [address] [id number] [place] [address] May, [facility] [place] [facility] [address] [id number] [place] [address] May, [facility] [address] [id number] [place] Mar, [facility] [place] [facility] [address] [id number] [place] [address] Mar, [facility] [address] [id number] [place] [address] Mar, [facility] [address] [id number] [place] [address] Mar, [facility] [place] [facility] [address] [id number] [place] [address] Mar, [facility] [place] [facility] [address] [id number] [address] Mar, [facility] [place] [facility] [address] [id number] [place] [address] Mar, [facility] [place] [facility] [address] [id number] [address] Mar, [facility] [place] [facility] [address] [id number] [place] [address] Jan, [facility] [place] [facility] [address] [id number] [place] [address] Jan, [facility] [place] [facility] [address] [id number] [place] [address] Jan, [facility] [place] [facility] [address] [id number] [address] Jan, [facility] [address] [id number] [place] [address] Jan, [facility] [place] [facility] [address] [id number] [place] [address] Jan, [facility] [address] [id number] [place] [address] Jan, [facility] [place] [facility] [address] [id number] [place] [address] Dec, [facility] [address] [id number] [place] [address] Nov, [facility] [place] [facility] [address] [id number] [place] [address] Oct, [facility] [address] [facility] [id number] [address] Oct, [facility] [address] [id number] [place] [address] Sep, [facility] [address] [id number] [place] [address] Sep, [facility] [place] [facility] [address] [facility] [id number] [place] [address] Sep, [facility] [place] [facility] [address] [id number] [place] [address] August, [facility] [place] [facility] [address] [facility] [id number] [address] Jun, [facility] [place] [facility] [address] [id number] [address] Jun, [facility] [place] [facility] [address] [id number] [place] [address] Jun, [facility] [place] [facility] [address] [facility] [id number] [address] Jun, [facility] [place] [facility] [address] [id number] [place] [address] 13 Jun, 2012 [facility] [address] [id number] [place] [address] Jun, [facility] [address] [id number] [place] [address] 07 Jun, 2012 [facility] [address] [id number] [place] [address] May, [facility] [address] [id number] [place] [address] May, [facility] [address] [id number] [place] [address] May, [facility] [address] [id number] [place] [address] May, [facility] [address] [id number] [place] [address] May, [facility] [address] [id number] [place] [address] 97[address] May, [facility] [address] [id number] [place] [address] May, [facility] [address] [id number] [place] [address] Mar, [facility] [address] [id number] [place] [address] Mar, [facility] [address] [id number] [place] [address] Mar, [facility] [place] [facility] [address] [id number] [place] [address] Mar, [facility] [address] [id number] [place] [address] Mar, [facility] [address] [id number] [place] [address] 94[address] Mar, [facility] [place] [facility] [address] [id number] [place] [address] Mar, [facility] [place] [facility] [address] [id number] [place] [address] Mar, [facility] [place] [facility] [address] [id number] [place] [address] 49[address] Mar, [facility] [place] [facility] [address] [id number] [place] [address] Mar, [facility] [place] [facility] [address] [id number] [place] [address] Mar, [facility] [place] [facility] [address] [id number] [place] [address] Mar, [facility] [place] [facility] [address] [id number] [place] [address] Mar, [facility] [place] [facility] [address] [id number] [place] [address] Mar, [facility] [place] [facility] [address] [id number] [place] [address] Mar, [facility] [place] [facility] [address] [id number] [place] [address] 99[address] Mar, [facility] [place] [facility] [address] [id number] [address] Mar, [facility] [place] [facility] [address] [id number] [place] [address] Mar, [facility] [place] [facility] [address] [id number] [place] [address] 84[address] Mar, [facility] [place] [facility] [address] [id number] [place] [address] Jan, [facility] [place] [facility] [address] [id number] [place] [address] 70[address] Jan, [facility] [place] [facility] [address] [address] Jan, [facility] [address]65100[place] [address] Jan, [facility] [address]65[address] [address] Dec, [facility] [id number] [place] [address] Dec, [facility] [id number] [place] [address] Dec, [facility] [id number] [place] [address]- [address]149 Nov, [facility] [id number] [place] [address]- [address]80 Nov, [facility] [id number] [place] [address]- 8533 Oct, [facility] [address]65[address] [address]165 Oct, [facility] [id number] [place] [address] Oct, [facility] [address]65100[place] [address] Oct, [facility] [address]65100[place] [address] Oct, [facility] [address]65[address] [address] Oct, IMMUNIZATIONS No Known Immunizations SOCIAL HISTORY Never Assessed REASON FOR VISIT Triage---ADaviedRN PLAN OF CARE VITAL SIGNS MEDICATIONS Unknown [...]
--- OUTSIDE RECORDS SUMMARY | 2018-05-15 06:45 | XMS REPORT ---
Author Author VALDEZ AQUINO [facility] eClinical[employer] Address Unknown Phone Unavailable Care Team Providers Care Head Buyer Tobacco Name Role Phone VALDEZ AQUINO CP Unavailable Allergies No Known Allergies Problems Problem Type Condition Code Onset Dates Condition Status Problem Environmental allergies V15.09 Active Problem 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 Active Problem Joint pain of lower extremity M25.50 Active Assessment Schizoaffective disorder, unspecified F25.9 Active Problem Edema R60.9 Active Problem Cough R05 Active Problem Obesity E66.9 Active Problem Depression F32.9 Active Problem 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 Problem Bipolar 1 disorder F31.9 Active Problem GERD (gastroesophageal reflux disease) K21.9 Active Medications Medication Code System Code Instructions Start Date End Date Status Dosage Flonase [facility] [address]-81 50 MCG/ACT Nasally Once a day October 06, 2015 1 spray in each nostril Meloxicam [facility] 42748927453 7.5 MG Orally 2 times a day 1 tablet Promethazine VC [facility] [address]-59 6.25-5 MG/5ML Orally every 6 hrs June 5 ml as needed Citalopram Hydrobromide [facility] 74179592579 40 MG Orally Once a day 1 tablet Protonix [facility] 75141311729 20 MG Orally Once a day 1 tablet ZyrTEC [facility] 24615907038 10 mg orally Once a day 1 tablet by Oral route 1 time per day Hydrochlorothiazide [facility] 84843235344 50 mg Orally Once a day 1 tablet Albuterol Sulfate HFA [facility] [address]-97 108 (90 Base) MCG/ACT Inhalation every 4 hrs May 12, 2015 2 puffs as needed Lamotrigine [facility] [address]-14 100 MG Orally Once a day October 06, 2015 1 tablet Risperdal [facility] [address]-78 1 MG Orally TAKE ONE TABLET BY MOUTH TWICE DAILY Albuterol Sulfate [facility] [address]-53 0.63 MG/3ML Inhalation every 4 hrs July 11, 2015 3 ml as needed Procedures Procedure Coding System Code Date Office Visit, Est Pt., Level 3 CPT-4 83173 November 19, 2015 Vital Signs Date/Time: November 19, 2015 Cardiac Monitoring Heart Rate 78 bpm Weight 279.7 lbs Height 63 in Blood Pressure Diastolic 74 mmHg Blood Pressure Systolic 130 mmHg Results No Known Results Summary Purpose eClinicalWorks Submission
--- OUTSIDE RECORDS SUMMARY | 2018-05-15 06:45 | XMS REPORT ---
Author Author NIYAH RODRÍGUEZ Organization [facility] Address [address] [place] [address] Care Team Providers Care Director Banking Name Role Phone YAMILKA RODRÍGUEZNETTE Unavailable PROBLEMS Type Condition ICD9-CM Code [id number] Code Onset Dates Condition Status SNOMED Code Problem Edema R60.9 Active 290939270 Problem Shortness of breath R06.02 Active 066194085 Problem Obesity E66.9 Active 066169160 Problem Major depressive disorder, single episode, unspecified F32.9 Active 51929623 Problem Diabetes mellitus with complication E11.8 Active 22845960 Problem Stress incontinence of urine N39.3 Active 16117596 Problem Environmental allergies Z91.09 Active 094625666 Problem Schizoaffective disorder, unspecified F25.9 Active 84698421 Problem Urinary frequency R35.0 Active 502647580 Problem Joint pain of lower extremity M25.50 Active 44787490 Problem Depression F32.9 Active 14427993 Problem GERD (gastroesophageal reflux disease) K21.9 Active 276693847 Problem 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 Active 598201976 Problem Bipolar 1 disorder F31.9 Active 107675499 Problem 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
--- OUTSIDE RECORDS SUMMARY | 2018-05-15 06:45 | XMS REPORT ---
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 883216260 Problem GERD (gastroesophageal reflux disease) K21.9 Active 675623452 Problem Depression F32.9 Active 52964095 Problem Environmental allergies Z91.09 Active 327241978 Problem Shortness of breath R06.02 Active 738036640 Problem Cough R05 Active 59424096 Problem Bipolar 1 disorder F31.9 Active 564043669 Problem Obesity E66.9 Active 399488940 Problem Edema R60.9 Active 555521205 Assessment Encounter for immunization Z23 14 Dec, 2015 Active 687579062 Assessment Pain in left knee M25.562 14 Dec, 2015 Active 621569982373441 Assessment Gastroesophageal reflux disease with esophagitis K21.0 14 Dec Active 074843921 Assessment Depression F32.9 14 Dec, 2015 Active 890743609 Assessment Pain in right knee M25.561 14 Dec, 2015 Active 338084905379285 Problem Joint pain of lower extremity M25.50 Active 85131234 Assessment Other chronic pain G89.29 14 Dec, 2015 Active 35802167 Problem 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 Active 510611439 ALLERGIES Substance Reaction Event Type Date Status Sulfamethoxazole-Trimethoprim Unknown Drug Allergy Dec, Active Penicillin V Potassium rash Drug Allergy Dec, Active SOCIAL HISTORY No smoking Hx information available PLAN OF CARE VITAL SIGNS Height 63 in 2016-01-13 Weight 280 lbs 2016-01-13 Heart Rate 76 bpm 2016-01-13 Respiratory Rate 20 2016-01-13 BMI 49.59 kg/m2 2016-01-13 Blood pressure systolic 110 mmHg 2016-01-13 Blood pressure diastolic 78 mmHg 2016-01-13 MEDICATIONS Medication Instructions Dosage Frequency Start Date End Date Duration Status Protonix 20 MG Orally Once a day 1 tablet 24h 30 Active Albuterol Sulfate 0.63 MG/3ML Inhalation every 4 hrs 3 ml as needed 4h Jun, Active Flonase 50 MCG/ACT Nasally Once a day 1 spray in each nostril 24h Sep, Active Hydrochlorothiazide 50 mg Orally Once a day 1 tablet 24h 30 Active Albuterol Sulfate HFA 108 (90 Base) MCG/ACT Inhalation every 4 hrs 2 puffs as needed 4h May, Active ZyrTEC 10 mg orally Once a day 1 tablet by Oral route 1 time per day 24h Active Lamotrigine 100 MG Orally Once a day 1 tablet 24h Sep, Active Meloxicam 7.5 MG Orally 2 times a day 1 tablet 12h Active Citalopram Hydrobromide 40 mg Orally Once a day 1 tablet 24h Active RESULTS No Results PROCEDURES Procedure Date Ordered Related Diagnosis Body Site Office Visit, Est Pt., Level 4 Jan 13, 2016 FLUARIX QUAD P-FREE 3 AND UP .50 2015Jan 13, 2016 SINGLE IMMUNIZATION ADMIN Jan 13, 2016 IMMUNIZATIONS Vaccine Route Administration Date Status FLUARIX QUAD P-FREE 3 AND UP .50 2015 IM Intramuscular Jan 13, 2016 Administered
--- OUTSIDE RECORDS SUMMARY | 2018-05-15 06:45 | XMS REPORT ---
Author Author NIYAH Romano [facility] Address [address] [place] [address] Care Team Providers Care Case Management Assistant Name Role Phone NIYAH Romano Unavailable PROBLEMS Type Condition ICD9-CM Code EET48-TY Code Onset Dates Condition Status SNOMED Code Problem Environmental allergies Z91.09 Active 545466942 Problem Schizoaffective disorder, unspecified F25.9 Active 27339125 Problem Stress incontinence of urine N39.3 Active 75716636 Problem Primary osteoarthritis of left knee M17.12 Active 697263909 Problem Post-menopausal bleeding N95.0 Active 19449315 Problem Neuropathy G62.9 Active 374244781 Problem Major depressive disorder, single episode, unspecified F32.9 Active 58682841 Problem Schizoaffective disorder, bipolar type F25.0 Active 83772164 Problem 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 Active 911662846 Problem PVD (peripheral vascular disease) I73.9 Active 992716184 Problem Joint pain of lower extremity M25.50 Active 07030722 Problem Bipolar 1 disorder F31.9 Active 678843096 Problem Depression F32.9 Active 65219489 Problem Edema R60.9 Active 115971121 Problem GERD (gastroesophageal reflux disease) K21.9 Active 186507653 Problem Obesity E66.9 Active 949255598 ALLERGIES No Information ENCOUNTERS Encounter Location Date Diagnosis [facility] [address] [address] Jul, [facility] [id number] [place] [address] 43695- 7732 Jul, [facility] [address], [place] [address] 0[address] Jul, [facility] [id number] [place] [address] 30867- 6036 Jun, [place] [id number] [place] [address] 35877- 4762 Jun, [place] [address] 77266- 1515 Jun, Wound of right breast, initial encounter S21.001A and Prediabetes R73.03 [place] [address] 52399- 5122 Jun, [place] [address] 95788- 2048 May, GERD (gastroesophageal reflux disease) K21.9 [place] [address] 20249- 4361 May, Primary osteoarthritis of left knee M17.12 [place] [address] 22796- 7514 May, Schizoaffective disorder, bipolar type F25.0 and 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 [place] [address] 32232- 8695 May, Left medial knee pain M25.562 ; GERD (gastroesophageal reflux disease) K21.9 ; Depression F32.9 ; Neuropathy G62.9 ; Obesity E66.9 ; Prediabetes R73.03 and Edema R60.9 [place] [id number] [place] [address] 92866- 1450 Mar, [facility] [id number] [place] [address] 90422- 3109 Mar, [place] [address] 25538- 6095 Mar, Post-menopausal bleeding N95.0 and BMI 50.0-59.9, adult Z68.43 [place] [address] 78294- 6659 Mar, [facility] [address], [place] [address] 3760 Mar, Schizoaffective disorder, bipolar type F25.0 and 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 [facility] [id number] [address] 1959 Mar, [facility] [id number] [place] [address] 28973- 6882 Mar, [facility] [id number] [place] [address] 97926- 2627 Mar, Post-menopausal bleeding N95.0 ; Screening breast examination Z12.31 ; Screen for STD (sexually transmitted disease) Z11.3 ; Obesity E66.9 ; Family history of ovarian cancer Z80.41 and Family history of cervical cancer Z80.49 [facility] [place] [id number] [place] [address] 54304- 3409 Mar, [facility] [id number] [place] [address] 30782- 0858 Mar, [facility] [id number] [place] [address] 48648- 6022 Jan, Schizoaffective disorder, bipolar type F25.0 and 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 [facility] [address], [place] [address]- 7839 Jan, Schizoaffective disorder, bipolar type F25.0 [facility] [id number] [place] [address] 94850- 9563 Jan, [place] [id number] [place] [address] 63073- 5176 Jan, Prediabetes R73.03 and Obesity E66.9 [facility] [id number] [address]- 7320 05 Jan, 2017 Encounter for immunization Z23 [facility] [id number] [place] [address] 91610- 0638 Jan, [facility] [address] [facility] [id number] [address] 48[address] Dec, [facility] [address] [facility] [id number] [place] [address] 92527- 6376 Dec, [facility] [id number] [place] [address] 57400- 8668 Nov, Neuropathy G62.9 [facility] [id number] [place] [address] 03308- 2250 Nov, [facility] [address] [facility] [id number] [place] [address] 85490- 2700 Nov, Schizoaffective disorder, bipolar type F25.0 [facility] [id number] [place] [address] 87465- 8127 Nov, 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 and Schizoaffective disorder, bipolar type F25.0 [facility] [id number] [place] [address] 63979- 7202 Oct, Schizoaffective disorder, bipolar type F25.0 ; Other skilled nursing (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 Z79.899 and 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 [facility] [address] [id number] Oct, Dental caries K02.9 [facility] [id number] [place] [address] 71418- 4729 Sep, Neuropathy G62.9 [facility] [address] [facility] [id number] [address] 57[address] Sep, [facility] [id number] [place] [address] 42362- 7826 Sep, Neuropathy G62.9 [facility] [id number], [place] [address]- 6336 Jul, Schizoaffective disorder, depressive type F25.1 [facility] [id number] [place] [address] 74109- 3460 Jul, GERD (gastroesophageal reflux disease) K21.9 ; Joint pain of lower extremity M25.50 ; Environmental allergies Z91.09 ; Stress incontinence of urine N39.3 ; Neuropathy G62.9 ; Edema R60.9 and Acute pain of left knee M25.562 [facility] [id number] [place] [address] 28474- 9464 Jun, [facility] [id number] [place] [address] [id number] Jun, Dental examination Z01.[address] 75778- 8503 Jun, [place] [address] 16423- 8996 May, [place] [id number] [place] [address] 26676- 3481 May, Bipolar 1 disorder F31.9 ; Joint pain of lower extremity M25.50 ; Environmental allergies Z91.09 ; Stress incontinence of urine N39.3 ; Major depressive disorder, single episode, unspecified F32.9 ; Dizzy R42 ; Schizoaffective disorder, unspecified F25.9 ; Neuropathy G62.9 ; Localized edema R60.0 and GERD (gastroesophageal reflux disease) K21.9 [place] [id number] [place] [address] 10568- 2704 May, Schizoaffective disorder, depressive type F25.1 [facility] [id number] [place] [address] 21798- 4455 May, Environmental allergies Z91.09 and Major depressive disorder , single episode, unspecified F32.9 [facility] [place] [id number] [place] [address] 68579- 4191 Mar, Dental caries K02.9 [place] [address] 73071- 1156 Mar, Dental caries on smooth surface penetrating into pulp K02.63 [facility] [id number] [place] [address] 78866 -1454 Mar, Peripheral edema R60.9 and Dry skin L85.3 [facility] [id number] [place] [address] 98343- 8622 Mar, [facility] [address] 60443- 8856 Mar, Major depressive disorder, single episode, unspecified F32.9 [place] [address] 852933- 0291 Mar, Dental caries K02.9 [facility] [id number] [place] [address] 37465- 1973 Mar, Diabetes mellitus with complication E11.8 ; Urinary frequency R35.0 ; Stress incontinence of urine N39.3 ; Joint pain of lower extremity M25.50 ; Obesity E66.9 ; Environmental allergies Z91.09 ; Depression F32.9 ; Schizoaffective disorder, unspecified F25.9 ; Vaginal discharge N89.8 and Vaginal candidiasis B37.3 [facility] [id number] [place] [address] 79856- 9929 Jan, Schizoaffective disorder, unspecified F25.9 [place] [id number] [place] [address] 69397- 1944 Jan, [facility] [id number] [place] [address] 27090- 5852 30 Dec, 2015 [place] [address] 18192- 3408 19 Dec, 2015 Dental caries K02.9 [facility] [id number] [place] [address] 97161- 2633 14 Dec, 2015 Obesity E66.9 ; Edema R60.9 ; Depression F32.9 ; Bipolar 1 disorder F31.9 ; 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 ; Environmental allergies Z91.09 ; Shortness of breath R06.02 ; Gastroesophageal reflux disease with esophagitis K21.0 ; Other chronic pain G89.29 ; Pain in right knee M25.561 ; Pain in left knee M25.562 and Encounter for immunization Z23 [place] [address] 67510- 1971 08 Nov, 2015 Dental caries K02.9 [place] [address] 08685- 9910 Oct, Schizoaffective disorder, unspecified F25.9 [place] [address] 99730- 0273 Oct, Dental examination Z01.20 [place] [address] 27941- 9589 Sep, Dental examination Z01.20 and Dental caries K02.9 [place] [address] 99863- 8440 Sep, [place] [address] 69502- 4979 Sep, [place] [address] 27442- 3150 Sep, [place] [address] 86667- 6706 Sep, Schizoaffective disorder, unspecified F25.9 [place] [address] 69246- 7673 August, Bipolar disorder, unspecified F31.9 [place] [address] 85949- 3213 Jul, Edema R60.9 and Obesity E66.9 [place] [address] 42171- 7621 Jul, Edema R60.9 [facility] [address], [place] [address]- 5770 Jul, Edema R60.9 [facility] [id number] [place] [address] 38020 -4293 Jul, Edema R60.9 [facility] [id number] [place] [address] 22541- 3766 Jul, [facility] [id number] [place] [address] 82724- 4757 Jul, [facility] [id number] [place] [address] 02688- 9916 24 Jun, 2015 Environmental allergies V15.09 and Cough R05 [facility] [id number] [place] [address] 58818- 0679 17 Jun, 2015 Environmental allergies V15.09 ; Edema R60.9 and Cough R05 [facility] [id number] [place] [address] 30049 -8328 12 Jun, 2015 Bronchospasm J98.01 [place] [id number] [place] [address] 46257- 5165 Jun, [facility] [id number] [place] [address] 75434- 2342 Jun, [facility] [address] [place] [address] 30973- 3776 08 Jun, 2015 Environmental allergies V15.09 ; Bipolar 1 disorder F31.9 ; GERD (gastroesophageal reflux disease) K21.9 ; Depression F32.9 ; Joint pain of lower extremity M25.50 ; COPD (chronic obstructive pulmonary disease) J44.9 and Screening for diabetes mellitus Z13.1 [facility] [id number] [place] [address] 32962- 5159 Jun, [facility] [id number] [place] [address] 76970- 0565 May, [facility] [address] 59515- 3464 14 May, 2015 Schizoaffective disorder, unspecified F25.9 and Bipolar 1 disorder F31.9 [place] [address] 63919- 1581 13 May, 2015 [place] [address] 07465- 2105 12 May, 2015 URI (upper respiratory infection) J06.9 ; Environmental allergies V15.09 and Cough R05 [place] [address] 71566- 8647 18 Mar, 2015 [place] [address] 83587- 0403 Mar, Vaginal discharge N89.8 [place] [address] 17517- 5458 Mar, Schizoaffective disorder, unspecified F25.9 ; Major depressive disorder, single episode, unspecified F32.9 and Bipolar 1 disorder F31.9 [place] [address] 65654- 9443 Mar, [place] [address] 57953- 7879 Mar, Bipolar 1 disorder F31.9 [place] [address] 93329- 1045 Jan, [place] [address] 48647- 0957 Jan, Allergic rhinitis J30.9 and Cough R05 [place] [address] 05021- 2970 Jan, 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 ; Bipolar 1 disorder F31.9 ; GERD ( gastroesophageal reflux disease) K21.9 ; Depression F32.9 and Joint pain of lower extremity M25.50 [place] [address] 24154- 7196 Dec, Encounter for immunization Z23 [facility] [id number] [place] [address] 94252- 1046 Dec, Schizoaffective disorder, unspecified 295.70 ; Pain in joint , lower leg 719.46 ; Esophageal reflux 530.81 ; Bipolar 1 disorder 296.7 ; Depression 311 ; GERD (gastroesophageal reflux disease) 530.81 and Environmental allergies V15.09 [facility] [id number] [place] [address] [id number] Nov, Dental examination V72.2 [place] [address] 60847- 3066 Nov, Acute bronchitis 466.0 [place] [address] 76621- 9916 Nov, Schizoaffective disorder, unspecified 295.70 and Bipolar disorder, unspecified 296.80 [facility] [id number] [place] [address] [id number] Sep, Dental examination V72.2 [facility] [id number] [place] [address] [id number] August, Dental examination V72.2 [facility] [id number] [place] [address] 28947- 2606 August, Schizoaffective disorder, unspecified 295.70 [facility] [id number] [place] [address] 57603 2546 August, [facility] [id number] [place] [address] 72065- 1426 August, Vomiting 787.03 [place] [address] 78209- 6076 August, Vomiting and diarrhea 787.03 and High risk medication use V58.69 [place] [id number] [place] [address] 66714- 0646 Jul, [facility] [place] [facility] [address] [id number] [place] [address]- 1268 14 Jul, 2014 [facility] [place] [facility] [address] [id number] [place] [address]- 7747 13 Jul, 2014 [facility] [place] [facility] [address] [id number] [place] [address]- 6419 27 Jun, 2014 [facility] [place] [facility] [address] [id number] [place] [address]- 6003 27 Jun, 2014 [facility] [place] [facility] [address] [id number] [place] [address]- 9733 Jun, [facility] [place] [facility] [address] [id number] [place] [address]- 0596 17 Jun, 2014 [facility] [place] [facility] [address] [facility] [id number] [place] [address]- 8405 16 Jun, 2014 [facility] [place] [facility] [address] [id number] [place] [address]- 4896 Jun, [facility] [place] [facility] [address] [id number] [place] [address]- 8477 Jun, [facility] [place] [facility] [address] [facility] [id number] [place] [address]- 4689 Jun, [facility] [place] [facility] [address] [facility] [id number] [place] [address]- 7297 Jun, [facility] [place] [facility] [address] [id number] [place] [address]- 0861 Mar, [facility] [place] [facility] [address] [id number] [place] [address]- 8905 Mar, [facility] [place] [facility] [address] [id number] [place] [address]- 3756 Mar, [facility] [place] [facility] [address] [id number] [place]- 2315 Mar, [facility] [place] [facility] [address] [id number], [place] [address]- 2867 Mar, [facility] [place] [facility] [address] [id number] [place] 4135 Mar, [facility] [place] [facility] [address] [id number] [place] [address]- 3325 Mar, [facility] [place] [facility] [address] [id number] [place] [address]- 8298 Mar, [facility] [place] [facility] [address] [id number] [place] [address]- 6694 Mar, [facility] [place] [facility] [address] [id number] [place] [address]- 8198 Mar, [facility] [place] [facility] [address] [id number] [place] 5853 Jan, [facility] [place] [facility] [address] [id number] [place] 5763 Jan, [facility] [place] [facility] [address] [id number] [place] [address]- 5851 Jan, [facility] [place] [facility] [address] [id number] [place] [address]- 5189 Jan, [facility] [place] [facility] [address] [id number] [place] [address]- 2629 Jan, [facility] [place] [facility] [address] [id number], [place] [address]- 0379 Jan, [facility] [place] [facility] [address] [id number], [place] [address]- 6154 Jan, [facility] [place] [facility] [address] [id number], [place] [address]- 7799 Jan, [facility] [place] [facility] [address] [id number], [place] [address]- 0616 Dec, [facility] [place] [facility] [address] [id number] [place] [address]- 8231 Dec, [facility] [place] [facility] [address] [id number] [place] [address]- 5199 15 Dec, 2013 [facility] [place] [facility] [address] [id number] [place] [address]- 4476 15 Dec, 2013 [facility] [place] [facility] [address] [id number] [place] [address]- 5146 15 Dec, 2013 [facility] [place] [facility] [address] [id number] [place] [address]- 4776 15 Dec, 2013 [facility] [place] [facility] [address] [id number] [place] [address]- 3088 12 Dec, 2013 [facility] [place] [facility] [address] [id number] [place] [address]- 2556 12 Dec, 2013 [facility] [place] [facility] [address] [id number] [place] [address]- 0930 Dec, [facility] [place] [facility] [address] [id number] [place] [address]- 5374 Dec, [facility] [place] [facility] [address] [id number] [place] [address]- 6160 Nov, [facility] [place] [facility] [address] [id number] [place] [address]- 0602 Nov, [facility] [place] [facility] [address] [id number] [place] [address]- 4527 Nov, [facility] [place] [facility] [address] [id number] [place] [address]- 6819 Nov, [facility] [place] [facility] [address] [id number] [place] [address]- 1694 Oct, [facility] [place] [facility] [address] [id number] [place] [address]- 5717 Oct, [facility] [place] [facility] [address] [id number] [place] [address]- 8147 Oct, [facility] [place] [facility] [address] [id number] [place] [address]- 7218 Oct, [facility] [place] [facility] [address] [id number] [place] [address]- 5937 Sep, [facility] [place] [facility] [address] [id number] [place] [address]- 2480 Sep, [facility] [place] [facility] [address] [id number] [place] [address]- 4021 Sep, [facility] [place] [facility] [address] [id number] [place] [address]- 1694 Sep, [facility] [place] [facility] [address] [id number] [place] [address]- [address] Sep, [facility] [place] [facility] [address] [id number] [place] [address] Sep, [facility] [place] [facility] [address] [id number] [place] [address] Sep, [facility] [place] [facility] [address] [id number] [place] [address] Sep, [facility] [place] [facility] [address] [id number] [place] [address] August, [facility] [place] [facility] [address] [id number] [place] [address] August, [facility] [place] [facility] [address] [id number] [place] [address] Jul, [facility] [place] [facility] [address] [id number] [place] [address] 1989 Jul, [facility] [place] [facility] [address] [id number] [place] [address] Jul, [facility] [place] [facility] [address] [id number] [place] [address] Jul, [facility] [place] [facility] [address] [id number] [place] [address] Jul, [facility] [place] [facility] [address] [id number] [place] [address] 23 Jul, 2013 [facility] [place] [facility] [address] [id number] [place] [address] 11 Jul, 2013 [facility] [place] [facility] [address] [id number] [place] [address] 11 Jul, 2013 [facility] [place] [facility] [address] [id number] [place] [address] 07 Jul, 2013 [facility] [place] [facility] [address] [id number] [place] [address] 07 Jul, 2013 [facility] [place] [facility] [address] [id number] [place] [address] 27 Jun, 2013 [facility] [place] [facility] [address] [id number] [place] [address] 27 Jun, 2013 [facility] [place] [facility] [address] [id number] [place] [address]- [address] 18 Jun, 2013 [facility] [place] [facility] [address] [id number] [place] [address]- [address] 18 Jun, 2013 [facility] [place] [facility] [address] [id number] [place] [address] 17 Jun, 2013 [facility] [place] [facility] [address] [id number] [place] [address] 17 Jun, 2013 [facility] [place] [facility] [address] [id number] [place] [address] 17 Jun, 2013 [facility] [place] [facility] [address] [id number] [place] [address] 17 Jun, 2013 [facility] [place] [facility] [address] [id number] [place] [address] 14 Jun, 2013 [facility] [place] [facility] [address] [id number] [place] [address] 14 Jun, 2013 [facility] [place] [facility] [address] [id number] [place] [address] 07 Jun, 2013 [facility] [place] [facility] [address] [id number] [place] [address] Jun, [facility] [place] [facility] [address] [id number] [place] [address] 1998 Jun, [facility] [place] [facility] [address] [id number] [place] [address] Jun, [facility] [place] [facility] [address] [id number] [place] [address] Jun, [facility] [place] [facility] [address] [id number] [place] [address] Jun, [facility] [place] [facility] [address] [id number] [place] [address] May, [facility] [place] [facility] [address] [id number] [place] [address] May, [facility] [facility] [address] [id number] [place] [address] May, [facility] [place] [facility] [address] [id number] [place] [address] May, [facility] [facility] [address] [id number] [place] [address] Mar, [facility] [place] [facility] [address] [id number] [place] [address] Mar, [facility] [place] [facility] [address] [id number] [address] Mar, [facility] [place] [facility] [address] [id number] [place] [address] Mar, [facility] [place] [facility] [address] [id number] [place] [address] Mar, [facility] [place] [address] [id number] [place] [address] Mar, [facility] [place] [facility] [address] [id number], [place] [address] Mar, [facility] [place] [facility] [address] [id number] [place] [address] Mar, [facility] [place] [facility] [address] [id number] [place] [address] Jan, [facility] [place] [facility] [address] [id number] [place] [address] Jan, [facility] [place] [facility] [address] [id number] [place] [address] Jan, [facility] [place] [address] [id number] [place] [address] Jan, [facility] [place] [facility] [address] [id number] [place] [address] Jan, [facility] [place] [facility] [address] [id number] [place] [address] Jan, [facility] [address] [id number] [place] [address] Jan, [facility] [place] [address] [id number] [place] [address] Dec, [facility] [place] [facility] [address] [id number] [place] [address] Nov, [facility] [address] [id number], [place] [address] Oct, [facility] [address] [id number], [place] [address] Oct, [facility] [address] [id number] [place] [address] Sep, [facility] [address] [id number] [place] [address] Sep, [facility] [facility] [address] [id number] [place] [address] Sep, [facility] [address] [id number] [place] [address] August, [facility] [address] [id number] [place] [address] Jun, [facility] [address] [id number] [place] [address] Jun, [facility] [address] [id number] [place] [address] Jun, [facility] [address] [id number] [place] [address] Jun, [facility] [address] [id number] [place] [address] Jun, [facility] [address] [id number] [place] [address] Jun, [facility] [address] [id number] [place] [address] Jun, [facility] [address] [id number] [place] [address] May, [facility] [address] [id number] [place] [address] May, [facility] [address] [id number] [place] [address] May, [facility] [address] [id number] [place] [address] May, [facility] [address] [id number] [place] [address] May, [facility] [address] [id number] [place] [address] May, [facility] [address] [id number] [place] [address] May, [facility] [address] [id number] [place] [address] Mar, [facility] [address] [id number] [place] [address]- [address] Mar, [facility] [address] [id number] [place] [address]- [address] Mar, [facility] [address] [id number] [place] [address]- [address] Mar, [facility] [address] [id number] [place] [address] Mar, [facility] [address] [id number] [place] [address] Mar, [facility] [address] [id number] [place] [address] Mar, [facility] [address] [id number] [place] [address]- 6[address] Mar, [facility] [address] [id number] [place] [address] 32[address] Mar, [facility] [address] [id number] [place] [address] Mar, [facility] [address] [id number] [place] [address]- [address] Mar, [facility] [address] [id number], [place] [address] Mar, [facility] [address] [id number], [place] [address] Mar, [facility] [address] [id number] [place] [address]- [address] Mar, [facility] [address] [id number] [place] [address]- [address] Mar, [facility] [address] [id number] [place] [address]- 2496 Mar, [facility] [address] [id number] [place] [address] Mar, [facility] [address] [id number] [place] [address]- [address]31 Mar, [facility] [address] [id number] [place] [address]- [address]46 Mar, [facility] [address] [id number] [place] [address]- [address] Jan, [facility] [address] [id number] [place] [address]- [address]307 Jan, [facility] [address] [id number] [place] [address]- 82[address] Jan, [facility] [address] [id number] [place] [address]- [address] Jan, [facility] [address] [id number] [place] [address]- 1529 Dec, [facility] [address] [id number] [place] [address]- [address]254 Dec, [facility] [address] [id number] [place] [address]- [address]10 Dec, [facility] [address] [id number] [place] [address]- [address] Nov, [facility] [address] [id number] [place] [address]- 75[address] Nov, [facility] [address] [id number] [place] [address]- [address] Oct, [facility] [address] [id number] [place] [address]- 6784 Oct, [facility] [address] [id number] [place] [address]- 8633 Oct, [facility] [address] [id number] [place] [address]- 2816 Oct, [facility] [address] [facility] [id number] [place] [id number] Oct, [facility] [address] [facility] [id number] [place] [address] [address] Oct, IMMUNIZATIONS No Known Immunizations SOCIAL HISTORY [...]
--- OUTSIDE RECORDS SUMMARY | 2018-05-15 06:45 | XMS REPORT ---
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 Active 280789146 Problem Major depressive disorder, single episode, unspecified F32.9 Active 40053911 Problem Stress incontinence of urine N39.3 Active 53870585 Problem Acute pain of left knee M25.562 Active 08555706 Problem Neuropathy G62.9 Active 870985504 Problem Joint pain of lower extremity M25.50 Active 65733105 Problem 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 023979827 Problem PVD (peripheral vascular disease) I73.9 Active 197573461 Problem GERD (gastroesophageal reflux disease) K21.9 Active 510134979 Problem Edema R60.9 Active 280455910 Problem Bipolar 1 disorder F31.9 Active 235355582 Problem Cough R05 Active 38249134 Problem Depression F32.9 Active 37910221 Problem Obesity E66.9 Active 770627498 ALLERGIES Substance Reaction Event Type Date Status Sulfamethoxazole-Trimethoprim Unknown Drug Allergy May, Active Penicillin V Potassium rash Drug Allergy May, Active SOCIAL HISTORY No smoking Hx information available PLAN OF CARE Activity Details Follow Up 3 Months, prn Reason:chm dizzy, psych VITAL SIGNS Height 63 in 2016-05-30 Weight 266.9 lbs 2016-05-30 Temperature 98.1 degrees Fahrenheit 2016-05-30 Heart Rate 84 bpm 2016-05-30 Respiratory Rate 20 2016-05-30 BMI 47.27 kg/m2 2016-05-30 Blood pressure systolic 130 mmHg 2016-05-30 Blood pressure diastolic 75 mmHg 2016-05-30 MEDICATIONS Medication Instructions Dosage Frequency Start Date End Date Duration Status ZyrTEC 10 mg orally Once a day 1 tablet by Oral route 1 time per day 24h Active Citalopram Hydrobromide 40 mg Orally Once a day 1 tablet 24h Active Protonix 20 MG Orally Once a day 1 tablet 24h Active Meloxicam 7.5 MG Orally 2 times a day 1 tablet 12h 30 Active Albuterol Sulfate HFA 108 (90 Base) MCG/ACT Inhalation every 4 hrs 2 puffs as needed 4h 12 May, 2015 Active Lamotrigine 100 MG Orally Once a day 1 tablet 24h Active Gabapentin 300 MG Orally Three times a day 1 capsule 8h May, 30 day(s) Active Hydrochlorothiazide 50 mg Orally Once a day 1 tablet 24h 30 days Active Meclizine HCl 25 MG Orally twice a day 1 tablet as needed 12h 30 May, 2016 10 days Active Risperdal 1 MG Orally 2 times a day 1 tablet 12h Active Flonase 50 MCG/ACT Nasally Once a day 1 spray in each nostril 24h Sep, Active Albuterol Sulfate 0.63 MG/3ML Inhalation every 4 hrs 3 ml as needed 4h 12 Jun, 2015 Active RESULTS Name Result Date Reference Range GLUCOSE FINGERSTICK (IN HOUSE) 2016-05-30 GLU FINGERSTICK 92 PC Lot # [id number] Exp date 09/17/2016 PROCEDURES Procedure Date Ordered Related Diagnosis Body Site GLUCOSE BLOOD TEST May 30, 2016 Office Visit, Est Pt., Level 4 May 30, 2016 IMMUNIZATIONS No Known Immunizations
--- OUTSIDE RECORDS SUMMARY | 2018-05-15 06:51 | XMS REPORT ---
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 Name Role Phone SAKINAMONIQUE Unavailable PROBLEMS Type Condition ICD9-CM Code [id number] Code Onset Dates Condition Status SNOMED Code Problem Stress incontinence of urine N39.3 Active 98902205 Problem Neuropathy G62.9 Active 910524003 Problem Major depressive disorder, single episode, unspecified F32.9 Active 89886608 Problem Morbid (severe) obesity due to excess calories E66.01 Active 130506950 Problem Body mass index (BMI) of 45.0-49.9 in adult Z68.42 Active 903004810 Problem 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 Active 398156726 Problem Schizoaffective disorder, bipolar type F25.0 Active 37625031 Problem Primary osteoarthritis of left knee M17.12 Active 048481087 Problem Post-menopausal bleeding N95.0 Active 56010887 Problem Obstructive sleep apnea G47.33 Active 63032853 Problem Depression F32.9 Active 06463946 Problem Bipolar 1 disorder F31.9 Active 869801671 Problem Edema R60.9 Active 981781486 Problem GERD (gastroesophageal reflux disease) K21.9 Active 807079276 Problem Obesity E66.9 Active 609631451 Problem Joint pain of lower extremity M25.50 Active 23159644 Problem Environmental allergies Z91.09 Active 260095125 ALLERGIES Substance Reaction Event Type Date Status Sulfamethoxazole-Trimethoprim Unknown Drug Allergy May, Active Penicillin V Potassium rash Drug Allergy May, Active ENCOUNTERS Encounter Location Date Diagnosis [facility] [address] [facility] [id number] [address] Oct, [facility] [address] [facility] [id number], [place] [address] Oct, [facility] [address] [address] Sep, [facility] [address], [place] [address] August, Neuropathy G62.9 [facility] [address] [address] August, [facility] [id number] [place] [address] 05619- 7242 August, [facility] [id number] [place] [address] 63412- 4191 Jul, [facility] [id number] [place] [address] 19849- 5141 Jul, Primary osteoarthritis of left knee M17.12 [facility] [id number] [place] [address] 59720- 8500 Jul, Schizoaffective disorder, bipolar type F25.0 and 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 [facility] [address] [address] Jul, Prediabetes R73.03 ; Primary osteoarthritis of left knee M17.12 ; GERD (gastroesophageal reflux disease) K21.9 ; Bipolar 1 disorder F31.9 ; Depression F32.9 ; Environmental allergies Z91.09 ; Neuropathy G62.9 ; Edema R60.9 ; Body mass index (BMI) of 45.0-49.9 in adult Z68.42 and Morbid ( severe) obesity due to excess calories E66.01 [facility] [address], [place] [address] Jul, [facility] [id number] [place] [address] 52347- 6786 Jun, [facility] [address] [address] 02[address] Jun, [facility] [id number] [place] [address] 98833- 1847 Jun, Wound of right breast, initial encounter S21.001A and Prediabetes R73.03 [facility] [address] 08654- 9293 Jun, [facility] [facility] [address] 82685- 9800 May, GERD (gastroesophageal reflux disease) K21.9 [facility] [address] 81999- 0961 May, Primary osteoarthritis of left knee M17.12 [facility] [address] 78140- 7387 May, Schizoaffective disorder, bipolar type F25.0 and 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 [facility] [address] 83731- 4877 May, Left medial knee pain M25.562 ; GERD (gastroesophageal reflux disease) K21.9 ; Depression F32.9 ; Neuropathy G62.9 ; Obesity E66.9 ; Prediabetes R73.03 and Edema R60.9 [facility] [address] 60935- 8517 Mar, [facility] [address] 55823- 4518 Mar, [facility] [address] 24994- 0722 Mar, Post-menopausal bleeding N95.0 and BMI 50.0-59.9, adult Z68.43 [facility] [address] 95583- 3512 Mar, [facility] [address] 83705- 2009 Mar, Schizoaffective disorder, bipolar type F25.0 and 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 [facility] [address] [place] [address]- 9677 Mar, [facility] [id number] [place] [address] 60280- 4980 Mar, [facility] [id number] [place] [address] 11163- 2260 Mar, Post-menopausal bleeding N95.0 ; Screening breast examination Z12.31 ; Screen for STD (sexually transmitted disease) Z11.3 ; Obesity E66.9 ; Family history of ovarian cancer Z80.41 and Family history of cervical cancer Z80.49 [facility] [id number] [place] [address] 80646- 6225 Mar, [facility] [id number] [place] [address] 90830- 0247 Mar, [facility] [id number] [place] [address] 26205- 5744 Jan, Schizoaffective disorder, bipolar type F25.0 and 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 [facility] [id number] [place] [address] 90341- 3728 Jan, Schizoaffective disorder, bipolar type F25.0 [facility] [id number] [place] [address] 75388- 6221 Jan, [facility] [id number] [place] [address] 67077- 0969 Jan, Prediabetes R73.03 and Obesity E66.9 [facility] [id number] [place] [address] 39417- 8479 Jan, Encounter for immunization Z23 [facility] [id number] [place] [address] 29080- 1917 Jan, [facility] [id number] [place] [address] 28761- 4986 Dec, [facility] [id number] [place] [address] 94415- 4141 Dec, [facility] [address] [place] [address] 19181- 3669 Nov, Neuropathy G62.9 [facility] [address] [place] [address] 91396- 1405 Nov, [facility] [id number] [place] [address] 79477- 7589 Nov, Schizoaffective disorder, bipolar type F25.0 [facility] [id number] [place] [address] 37795- 4710 Nov, 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 and Schizoaffective disorder, bipolar type F25.0 [facility] [address] [place] [address] 09035- 9842 Oct, Schizoaffective disorder, bipolar type F25.0 ; Other halfway (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 Z79.899 and 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 [facility] [id number] [place] [address] [id number] Oct, Dental caries K02.9 [facility] [id number] [place] [address] 24531- 5975 Sep, Neuropathy G62.9 [facility] [id number] [place] [address] 19761- 5409 Sep, [facility] [address] [place] [address] 51336- 9982 Sep, Neuropathy G62.9 [facility] [address] [place] [address] 10528- 2211 Jul, Schizoaffective disorder, depressive type F25.1 [facility] [address] [place] [address] 56935- 6926 Jul, GERD (gastroesophageal reflux disease) K21.9 ; Joint pain of lower extremity M25.50 ; Environmental allergies Z91.09 ; Stress incontinence of urine N39.3 ; Neuropathy G62.9 ; Edema R60.9 and Acute pain of left knee M25.562 [facility] [address] [place] [address] 76580- 7814 28 Jun, 2016 [facility] [address] [place] [address] [id number] 20 Jun, 2016 Dental examination Z01.20 [facility] [id number] [place] [address] 92521- 1520 Jun, [facility] [id number] [place] [address] 84085- 5952 May, [facility] [id number] [place] [address] 25695- 2398 May, Bipolar 1 disorder F31.9 ; Joint pain of lower extremity M25.50 ; Environmental allergies Z91.09 ; Stress incontinence of urine N39.3 ; Major depressive disorder, single episode, unspecified F32.9 ; Dizzy R42 ; Schizoaffective disorder, unspecified F25.9 ; Neuropathy G62.9 ; Localized edema R60.0 and GERD (gastroesophageal reflux disease) K21.9 [facility] [id number] [place] [address] 05907- 8040 May, Schizoaffective disorder, depressive type F25.1 [facility] [id number] [place] [address] 73971- 3533 May, Environmental allergies Z91.09 and Major depressive disorder , single episode, unspecified F32.9 [facility] [address] [place] [address] 71801- 4223 Mar, Dental caries K02.9 [facility] [id number] [place] [address] 28457- 8823 Mar, Dental caries on smooth surface penetrating into pulp K02.63 [facility] [address] [place] [address] 57650 -1917 Mar, Peripheral edema R60.9 and Dry skin L85.3 [facility] [id number] [place] [address] 20105- 9349 05 Mar, 2016 [place] [address] 25773- 8013 30 Mar, 2016 Major depressive disorder, single episode, unspecified F32.9 [facility] [address] 76533- 1019 09 Mar, 2016 Dental caries K02.9 [place] [facility] [address] 36114- 9256 07 Mar, 2016 Diabetes mellitus with complication E11.8 ; Urinary frequency R35.0 ; Stress incontinence of urine N39.3 ; Joint pain of lower extremity M25.50 ; Obesity E66.9 ; Environmental allergies Z91.09 ; Depression F32.9 ; Schizoaffective disorder, unspecified F25.9 ; Vaginal discharge N89.8 and Vaginal candidiasis B37.3 [place] [facility] [address] 69250- 5269 Jan, Schizoaffective disorder, unspecified F25.9 [facility] [address] 23799- 3007 17 Jan, 2016 [place] [facility] [address] 52732- 9205 30 Dec, 2015 [facility] [id number] [place] [address] 11807- 7312 19 Dec, 2015 Dental caries K02.9 [facility] [id number] [place] [address] 06421- 6003 14 Dec, 2015 Obesity E66.9 ; Edema R60.9 ; Depression F32.9 ; Bipolar 1 disorder F31.9 ; 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 ; Environmental allergies Z91.09 ; Shortness of breath R06.02 ; Gastroesophageal reflux disease with esophagitis K21.0 ; Other chronic pain G89.29 ; Pain in right knee M25.561 ; Pain in left knee M25.562 and Encounter for immunization Z23 [facility] [address] [place] [address] 30994- 5136 Nov, Dental caries K02.9 [facility] [id number] [place] [address] 48341- 7223 Oct, Schizoaffective disorder, unspecified F25.9 [facility] [id number] [place] [address] 14609- 3374 Oct, Dental examination Z01.20 [facility] [id number] [place] [address] 67433- 8615 Sep, Dental examination Z01.20 and Dental caries K02.9 [facility] [id number] [place] [address] 88348- 3250 Sep, [facility] [id number] [place] [address] 81841- 7397 Sep, [facility] [id number] [place] [address] 06996- 3123 Sep, [facility] [id number] [place] [address] 54196- 5329 Sep, Schizoaffective disorder, unspecified F25.9 [facility] [id number] [place] [address] 68950- 6686 August, Bipolar disorder, unspecified F31.9 [facility] [id number] [place] [address] 49293- 5581 Jul, Edema R60.9 and Obesity E66.9 [facility] [id number] [place] [address] 95617- 9975 Jul, Edema R60.9 [facility] [id number] [place] [address] 65940- 7501 Jul, Edema R60.9 [facility] [id number] [place] [address] 18492 -2562 Jul, Edema R60.9 [facility] [address] [place] [address] 35853- 8968 Jul, [facility] [id number] [place] [address] 48792- 9233 Jul, [facility] [id number] [place] [address] 63252- 0543 24 Jun, 2015 Environmental allergies V15.09 and Cough R05 [facility] [id number] [place] [address] 88461- 0127 17 Jun, 2015 Environmental allergies V15.09 ; Edema R60.9 and Cough R05 [facility] [id number] [place] [address] 84866 -6254 12 Jun, 2015 Bronchospasm J98.01 [facility] [id number] [place] [address] 41894- 9511 Jun, [facility] [id number] [place] [address] 33009- 3421 Jun, [facility] [id number] [place] [address] 32063- 5817 Jun, Environmental allergies V15.09 ; Bipolar 1 disorder F31.9 ; GERD (gastroesophageal reflux disease) K21.9 ; Depression F32.9 ; Joint pain of lower extremity M25.50 ; COPD (chronic obstructive pulmonary disease) J44.9 and Screening for diabetes mellitus Z13.1 [facility] [address] [place] [address] 31667- 0169 Jun, [facility] [id number] [place] [address] 53418- 7118 May, [facility] [address] 09743- 0598 14 May, 2015 Schizoaffective disorder, unspecified F25.9 and Bipolar 1 disorder F31.9 [facility] [id number] [place] [address] 53412- 0182 May, [facility] [id number] [place] [address] 94855- 3742 May, URI (upper respiratory infection) J06.9 ; Environmental allergies V15.09 and Cough R05 [place] [address] 56254- 3156 Mar, [facility] [address] 76331- 5533 Mar, Vaginal discharge N89.8 [facility] [address] 84146- 2052 14 Mar, 2015 Schizoaffective disorder, unspecified F25.9 ; Major depressive disorder, single episode, unspecified F32.9 and Bipolar 1 disorder F31.9 [facility] [facility] [address] 18857- 7020 Mar, [facility] [facility] [address] 05986- 8399 Mar, Bipolar 1 disorder F31.9 [facility] [place] [address] 31865- 0527 Jan, [facility] [address] 54873- 8965 Jan, Allergic rhinitis J30.9 and Cough R05 [facility] [facility] [address] 15800- 9951 Jan, 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 ; Bipolar 1 disorder F31.9 ; GERD ( gastroesophageal reflux disease) K21.9 ; Depression F32.9 and Joint pain of lower extremity M25.50 [facility] [address] 18486- 2064 28 Dec, 2014 Encounter for immunization Z23 [facility] [facility] [address] 44538- 0279 02 Dec, 2014 Schizoaffective disorder, unspecified 295.70 ; Pain in joint , lower leg 719.46 ; Esophageal reflux 530.81 ; Bipolar 1 disorder 296.7 ; Depression 311 ; GERD (gastroesophageal reflux disease) 530.81 and Environmental allergies V15.09 [facility] [id number] [place] [address] [phone] Nov, Dental examination V72.2 [facility] [id number] [place] [address] 49415- 9546 Nov, Acute bronchitis 466.0 [facility] [address] 42288- 8096 Nov, Schizoaffective disorder, unspecified 295.70 and Bipolar disorder, unspecified 296.80 [facility] [id number] [place] [address] [phone] Sep, Dental examination V72.2 [facility] [id number] [place] [address] [id number] August, Dental examination V72.2 [facility] [id number] [place] [address] 750798- 3656 August, Schizoaffective disorder, unspecified 295.70 [facility] [id number] [place] [address] 776378- 7936 August, [facility] [id number] [place] [address] 43840286- 3433 August, Vomiting 787.03 [facility] [id number] [place] [address] 861807- 4946 August, Vomiting and diarrhea 787.03 and High risk medication use V58.69 [facility] [id number] [place] [address] 83949- 0696 Jul, [facility] [address] 465357- 9009 Jul, [facility] [id number] [place] [address] 96000923- 6419 Jul, [facility] [address] [facility] [id number] [place] [address]- 2334 27 Jun, 2014 [facility] [place] [facility] [address] [id number] [place] [address]- 7462 27 Jun, 2014 [facility] [place] [facility] [address] [id number] [place] [address]- 6023 17 Jun, 2014 [facility] [place] [facility] [address] [id number] [place] [address]- 5074 17 Jun, 2014 [facility] [place] [facility] [address] [id number] [place] [address]- 2988 16 Jun, 2014 [facility] [place] [facility] [address] [id number] [place] [address]- 2949 Jun, 2014 [facility] [place] [facility] [address] [id number] [place] [address]- 0876 Jun, 2014 [facility] [place] [facility] [address] [id number] [place] [address]- 6804 Jun, 2014 [facility] [place] [facility] [address] [id number] [place] [address]- 0907 Jun, 2014 [facility] [place] [facility] [address] [facility] [id number] [place] [address]- 0851 Mar, [facility] [place] [facility] [address] [id number] [place] [address]- 1181 Mar, [facility] [place] [facility] [address] [id number] [place] [address]- 0810 Mar, [facility] [place] [facility] [address] [id number] [place] [address]- 6720 Mar, [facility] [place] [facility] [address] [id number] [place] [address]- 0173 Mar, [facility] [place] [facility] [address] [id number] [place] [address]- 6267 Mar, [facility] [place] [facility] [address] [id number], [place] [address]- 4386 Mar, [facility] [place] [facility] [address] [id number] [place] [address]- 9037 Mar, [facility] [place] [facility] [address] [id number] [place] [address]- 3957 Mar, [facility] [place] [facility] [address] [id number] [place] [address]- 6350 Mar, [facility] [place] [facility] [address] [id number] [place] [address]- 9596 Jan, [facility] [place] [facility] [address] [id number] [place] [address]- 0260 Jan, [facility] [place] [facility] [address] [id number] [place]- 3144 Jan, [facility] [place] [facility] [address] [id number] [place] [address]- 7967 Jan, [facility] [place] [facility] [address] [id number] [place] [address]- 6290 Jan, [facility] [place] [facility] [address] [id number] [place] [address]- 4857 Jan, [facility] [place] [facility] [address] [id number] [place] [address]- 8591 Jan, [facility] [place] [facility] [address] [id number], [place] [address]- 0268 Jan, [facility] [place] [facility] [address] [id number], [place] [address]- 6856 19 Dec, 2013 [facility] [place] [facility] [address] [id number] [place] [address]- 5758 19 Dec, 2013 [facility] [place] [facility] [address] [id number] [place]- 6441 15 Dec, 2013 [facility] [place] [facility] [address] [id number], [place] [address]- 0797 15 Dec, 2013 [facility] [place] [facility] [address] [id number] [place] [address]- 2933 15 Dec, 2013 [facility] [place] [facility] [address] [id number] [place] [address]- 2314 15 Dec, 2013 [facility] [place] [facility] [address] [id number] [place] [address]- 3586 12 Dec, 2013 [facility] [place] [facility] [address] [id number] [place] [address]- 0058 12 Dec, 2013 [facility] [place] [facility] [address] [id number] [place] [address]- 7554 Dec, [facility] [place] [facility] [address] [id number] [place] [address]- 3889 Dec, [facility] [place] [facility] [address] [id number] [place] [address]- 4915 Nov, [facility] [place] [facility] [address] [id number] [place] [address]- 9570 Nov, [facility] [place] [facility] [address] [id number] [place] [address]- 7447 Nov, [facility] [place] [facility] [address] [id number] [place] [address]- 3700 Nov, [facility] [place] [facility] [address] [id number] [place] [address]- 9016 Oct, [facility] [place] [facility] [address] [id number] [place] [address]- 9802 Oct, [facility] [place] [facility] [address] [id number] [place] [address]- 1493 Oct, [facility] [place] [facility] [address] [id number] [place] [address]- 3113 Oct, [facility] [place] [facility] [address] [id number] [place] [address]- 8211 Sep, [facility] [place] [facility] [address] [id number] [place] [address]- 9222 Sep, [facility] [place] [facility] [address] [id number] [place] [address]- 3793 Sep, [facility] [place] [facility] [address] [id number] [place] [address]- 7095 Sep, [facility] [place] [facility] [address] [id number] [place] [address] Sep, [facility] [place] [facility] [address] [id number] [place] [address] Sep, [facility] [place] [facility] [address] [id number] [place] [address] Sep, [facility] [place] [facility] [address] [id number] [place] [address] Sep, [facility] [place] [facility] [address] [id number] [place] [address] August, [facility] [place] [facility] [address] [id number] [place] [address] August, [facility] [place] [facility] [address] [id number] [place] [address] Jul, [facility] [place] [facility] [address] [id number] [place] [address] Jul, [facility] [place] [facility] [address] [id number] [place] [address] Jul, [facility] [place] [facility] [address] [id number] [address] Jul, [facility] [place] [facility] [address] [id number] [place] [address] Jul, [facility] [place] [facility] [address] [id number] [place] [address] Jul, [facility] [place] [facility] [address] [id number] [place] [address] Jul, [facility] [place] [facility] [address] [id number] [place] [address]- [address] 11 Jul, 2013 [facility] [place] [facility] [address] [id number] [place] [address]- [address] 07 Jul, 2013 [facility] [place] [facility] [address] [id number] [place] [address]- [address] 07 Jul, 2013 [facility] [place] [facility] [address] [id number] [place] [address] 27 Jun, 2013 [facility] [place] [facility] [address] [id number] [place] [address] 27 Jun, 2013 [facility] [place] [facility] [address] [id number] [place] [address]- [address] 18 Jun, 2013 [facility] [place] [facility] [address] [id number] [place] [address]- [address] 18 Jun, 2013 [facility] [place] [facility] [address] [id number] [place] [address]- [address] 17 Jun, 2013 [facility] [place] [facility] [address] [id number] [place] [address]- [address] 17 Jun, 2013 [facility] [place] [facility] [address] [id number] [place] [address]- [address] 17 Jun, 2013 [facility] [place] [facility] [address] [id number] [place] [address]- [address] 17 Jun, 2013 [facility] [place] [facility] [address] [id number] [place] [address] 14 Jun, 2013 [facility] [place] [facility] [address] [id number] [place] [address]- [address] 14 Jun, 2013 [facility] [place] [facility] [address] [id number] [place] [address]- [address] 07 Jun, 2013 [facility] [place] [facility] [address] [id number] [place] [address]- [address] 07 Jun, 2013 [facility] [place] [facility] [address] [id number] [place] [address] Jun, [facility] [place] [facility] [address] [address] [id number] [place] [address] Jun, [facility] [place] [facility] [address] [id number] [place] [address] Jun, [facility] [place] [facility] [address] [id number] [place] [address] Jun, [facility] [place] [facility] [address] [id number] [place] [address] May, [facility] [place] [facility] [address] [id number] [place] [address] May, [facility] [place] [facility] [address] [id number] [place] [address] May, [facility] [place] [facility] [address] [id number] [place] [address] May, [facility] [place] [facility] [address] [id number] [place] [address] Mar, [facility] [place] [facility] [address] [id number] [place] [address] Mar, [facility] [place] [facility] [address] [id number] [place] [address] Mar, [facility] [place] [facility] [address] [id number] [place] [address] Mar, [facility] [place] [facility] [address] [id number] [place] [address] Mar, [facility] [place] [facility] [address] [id number] [place] [address] Mar, [facility] [place] [facility] [address] [id number] [place] [address] Mar, [facility] [place] [facility] [address] [id number] [place] [address] Mar, [facility] [place] [facility] [address] [id number] [place] [address] Jan, [facility] [place] [facility] [address] [id number] [place] [address] Jan, [facility] [place] [facility] [address] [id number] [place] [address] Jan, [facility] [place] [facility] [address] [id number] [place] [address] Jan, [facility] [place] [facility] [address] [id number] [place] [address] Jan, [facility] [place] [facility] [address] [id number] [place] [address] Jan, [facility] [place] [facility] [address] [id number] [place] [address] Jan, [facility] [place] [facility] [address] [id number] [place] [address] Dec, [facility] [place] [facility] [address] [id number] [place] [address] Nov, [facility] [place] [facility] [address] [id number] [place] [address] Oct, [facility] [place] [facility] [address] [id number] [place] [address] Oct, [facility] [place] [facility] [address] [id number] [place] [address] Sep, [facility] [place] [facility] [address] [id number], [place] [address] Sep, [facility] [place] [facility] [address] [id number] [place] [address] Sep, [facility] [place] [facility] [address] [id number] [place] [address] August, [facility] [place] [facility] [address] [id number] [place] [address] Jun, [facility] [place] [facility] [address] [id number] [place] [address] 20 Jun, 2012 [facility] [address] [id number] [place] [address] 15 Jun, 2012 [facility] [address] [id number] [place] [address] 15 Jun, 2012 [facility] [address] [id number] [place] [address] 2546 13 Jun, 2012 [facility] [address] [id number] [place] [address] 2544 12 Jun, 2012 [facility] [address] [id number] [place] [address] 07 Jun, 2012 [facility] [address] [id number] [place] [address] May, [facility] [address] [id number] [place] [address] May, [facility] [address] [id number] [place] [address] May, [facility] [address] [id number] [place] [address] 74[address] May, [facility] [address] [id number] [place] [address] May, [facility] [address] [id number] [place] [address]70 May, [facility] [address] [id number] [place] [address] 1875 May, [facility] [place] [facility] [address] [id number] [place] [address] 1526 Mar, [facility] [place] [facility] [address] [id number] [place] [address] 2548 Mar, [facility] [place] [facility] [address] [id number] [place] [address] 9095 Mar, [facility] [place] [facility] [address] [id number] [place] [address] 98[address] Mar, [facility] [place] [facility] [address] [id number] [place] [address] 9806 Mar, [facility] [place] [facility] [address] [facility] [id number] [place] [address] Mar, [facility] [place] [facility] [address] [id number] [place] [address] Mar, [facility] [place] [facility] [address] [id number] [place] [address]- 5748 Mar, [facility] [place] [facility] [address] [id number] [place] [address] 7085 Mar, [facility] [place] [facility] [address] [id number] [place] [address] 2626 Mar, [facility] [place] [facility] [address] [id number], [place] [address] Mar, [facility] [place] [facility] [address] [id number], [place] [address] Mar, [facility] [place] [facility] [address] [facility] [id number], [place] [address] Mar, [facility] [place] [facility] [address] [id number], [place] [address] 28[address] Mar, [facility] [place] [facility] [address] [id number], [place] [address] Mar, [facility] [place] [facility] [address] [id number], [place] [address] Mar, [facility] [place] [facility] [address] [facility] [id number], [place] [address] Mar, [facility] [place] [facility] [address] [facility] [id number], [place] [address] Mar, [facility] [place] [facility] [address] [facility] [id number] [place] [address] 4690 Mar, [facility] [address] [id number] [place] [address]- 6426 Jan, [facility] [address] [id number] [place] [address]- 6246 Jan, [facility] [address] [id number] [place] [address] 6026 Jan, [facility] [address] [id number] [place] [address] 2546 Jan, [facility] [address] [id number] [place] [address] 3472 Dec, [facility] [address] [id number] [place] [address]- 5549 Dec, [facility] [address] [facility] [id number] [place] [address]- 5896 Dec, [facility] [address] [facility] [id number] [place] [address]- 3743 Nov, [facility] [address] [facility] [id number] [place] [address]- 4277 Nov, [facility] [address] [facility] [id number] [place] [address]- 1256 Oct, [facility] [address] [facility] [id number] [place] [address] Oct, [facility] [address] [facility] [id number] [place] [address]- 1885 Oct, [facility] [address] [facility] [id number] [place] [address] Oct, [facility] [address] [facility] [id number] [place] [address]- 4658 Oct, [facility] [address] [facility] [id number] [place] [address]- 5775 Oct, IMMUNIZATIONS No Known Immunizations SOCIAL HISTORY Never Assessed REASON FOR VISIT f/u PLAN OF CARE Activity Details Follow Up 3 Months Reason: f/u VITAL SIGNS Height 63 in 2017-05-22 Weight 267.0 lbs 2017-05-22 Heart Rate 80 bpm 2017-05-22 Respiratory Rate 20 2017-05-22 BMI 47.29 kg/m2 2017-05-22 Blood pressure systolic 118 mmHg 2017-05-22 Blood pressure diastolic 66 mmHg 2017-05-22 MEDICATIONS Medication Instructions Dosage Frequency Start Date End Date Duration Status MetFORMIN HCl ER 500 mg Orally Once a day 1 tablet with evening meal 24h Jan, Active Lamictal 150 MG TAKE ONE TABLET BY MOUTH ONCE DAILY Active Citalopram Hydrobromide 40 mg Orally Once a day 1 tablet 24h 30 Active Flonase 50 MCG/ACT Nasally Once a day 1 spray in each nostril 24h 30 Active Hydrochlorothiazide 50 MG TAKE ONE TABLET BY MOUTH ONCE DAILY Active Albuterol Sulfate 0.63 MG/3ML Inhalation every 4 hrs 3 ml as needed 4h Jun, Active Risperdal 1 MG Orally 2 times a day 1 tablet 12h Active Gabapentin 300 MG Orally Three times a day 1 capsule 8h 30 Active ZyrTEC 10 mg orally Once a day 1 tablet by Oral route 1 time per day 24h 30 Active Albuterol Sulfate HFA 108 (90 Base) MCG/ACT Inhalation every 4 hrs 2 puffs as needed 4h 12 May, 2015 Active Meloxicam 7.5 MG Orally 2 times a day 1 tablet 12h Active Protonix 20 MG Orally Once a day 1 tablet 24h Active RESULTS No Results PROCEDURES No Known [...]
--- OUTSIDE RECORDS SUMMARY | 2018-05-15 06:51 | XMS REPORT ---
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 Active 412007441 Problem Major depressive disorder, single episode, unspecified F32.9 Active 45284400 Problem Stress incontinence of urine N39.3 Active 16617869 Problem Acute pain of left knee M25.562 Active 52559608 Problem Neuropathy G62.9 Active 460435125 Problem Joint pain of lower extremity M25.50 Active 98317270 Problem 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 379060779 Problem PVD (peripheral vascular disease) I73.9 Active 433489692 Problem GERD (gastroesophageal reflux disease) K21.9 Active 906294894 Problem Edema R60.9 Active 602353500 Problem Bipolar 1 disorder F31.9 Active 468706860 Problem Cough R05 Active 90546230 Problem Depression F32.9 Active 37398875 Problem Obesity E66.9 Active 101348942 ALLERGIES Substance Reaction Event Type Date Status Sulfamethoxazole-Trimethoprim Unknown Drug Allergy May, Active Penicillin V Potassium rash Drug Allergy May, Active SOCIAL HISTORY No smoking Hx information available PLAN OF CARE Activity Details Follow Up 3 Months Reason: VITAL SIGNS Height 63 in 2016-05-19 Weight 267.6 lbs 2016-05-19 Heart Rate 88 bpm 2016-05-19 Respiratory Rate 20 2016-05-19 BMI 47.40 kg/m2 2016-05-19 Blood pressure systolic 124 mmHg 2016-05-19 Blood pressure diastolic 80 mmHg 2016-05-19 MEDICATIONS Medication Instructions Dosage Frequency Start Date End Date Duration Status Albuterol Sulfate 0.63 MG/3ML Inhalation every 4 hrs 3 ml as needed 4h Jun, Active Lamotrigine 100 MG Orally Once a day 1 tablet 24h Active Flonase 50 MCG/ACT Nasally Once a day 1 spray in each nostril 24h Sep, Active Meloxicam 7.5 MG Orally 2 times a day 1 tablet 12h 30 Active Citalopram Hydrobromide 40 mg Orally Once a day 1 tablet 24h Active Albuterol Sulfate HFA 108 (90 Base) MCG/ACT Inhalation every 4 hrs 2 puffs as needed 4h May, Active Protonix 20 MG Orally Once a day 1 tablet 24h 30 Active Risperdal 1 MG Orally 2 times a day 1 tablet 12h Active Hydrochlorothiazide 50 mg Orally Once a day 1 tablet 24h 30 Active ZyrTEC 10 mg orally Once a day 1 tablet by Oral route 1 time per day 24h 30 days Active RESULTS No Results PROCEDURES Procedure Date Ordered Related Diagnosis Body Site Office Visit, Est Pt., Level 3 May 19, 2016 IMMUNIZATIONS No Known Immunizations
--- OUTSIDE RECORDS SUMMARY | 2018-05-15 06:57 | XMS REPORT ---
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 Active 706609470 Problem Major depressive disorder, single episode, unspecified F32.9 Active 26341436 Problem Stress incontinence of urine N39.3 Active 16671425 Problem Acute pain of left knee M25.562 Active 58176687 Problem Neuropathy G62.9 Active 585468700 Problem Joint pain of lower extremity M25.50 Active 37841226 Problem 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 434877720 Problem PVD (peripheral vascular disease) I73.9 Active 169898778 Problem GERD (gastroesophageal reflux disease) K21.9 Active 276597497 Problem Edema R60.9 Active 731584011 Problem Bipolar 1 disorder F31.9 Active 794069270 Problem Cough R05 Active 87833647 Problem Depression F32.9 Active 07211847 Problem Obesity E66.9 Active 810890320 ALLERGIES Unknown Allergies SOCIAL HISTORY No smoking Hx information available PLAN OF CARE VITAL SIGNS MEDICATIONS Medication Instructions Dosage Frequency Start Date End Date Duration Status Risperdal 1 MG Orally 2 times a day 1 tablet 12h 30 Active Lamotrigine 100 MG Orally Once a day 1 tablet 24h 30 Active ZyrTEC 10 mg orally Once a day 1 tablet by Oral route 1 time per day 24h 30 days Active Citalopram Hydrobromide 40 mg Orally Once a day 1 tablet 24h 30 Active RESULTS No Results PROCEDURES No Known procedures IMMUNIZATIONS No Known Immunizations
--- OUTSIDE RECORDS SUMMARY | 2018-05-15 06:58 | XMS REPORT ---
Author Author RAY NEVAREZ [facility] Address [address] [place] [address] Care Team Providers [employer] Owner Name Role Phone RAY NEVAREZ Unavailable PROBLEMS Type Condition ICD9-CM Code EKE83-GY Code Onset Dates Condition Status SNOMED Code Problem Stress incontinence of urine N39.3 Active 66631015 Problem Neuropathy G62.9 Active 756879491 Problem Major depressive disorder, single episode, unspecified F32.9 Active 46349707 Problem Morbid (severe) obesity due to excess calories E66.01 Active 928560280 Problem Body mass index (BMI) of 45.0-49.9 in adult Z68.42 Active 958145708 Problem 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 Active 332612961 Problem Schizoaffective disorder, bipolar type F25.0 Active 73578950 Problem Primary osteoarthritis of left knee M17.12 Active 185685580 Problem Post-menopausal bleeding N95.0 Active 64930081 Problem Obstructive sleep apnea G47.33 Active 19282735 Problem Depression F32.9 Active 83883951 Problem Bipolar 1 disorder F31.9 Active 087987666 Problem Edema R60.9 Active 105399113 Problem GERD (gastroesophageal reflux disease) K21.9 Active 606401293 Problem Obesity E66.9 Active 067360815 Problem Joint pain of lower extremity M25.50 Active 65700590 Problem Environmental allergies Z91.09 Active 221974926 ALLERGIES No Information ENCOUNTERS Encounter Location Date Diagnosis [facility] [address] [facility] [id number] [address] Oct, [facility] [address] [address] Oct, [facility] [address] [facility] [id number], [place] [address] August, Neuropathy G62.9 [facility] [address], [place] [address] August, [facility] [id number] [place] [address] 76660- 6473 August, [facility] [id number] [place] [address] 50203- 0692 Jul, [facility] [id number] [place] [address] 46461- 5968 Jul, Primary osteoarthritis of left knee M17.12 [facility] [id number] [place] [address] 24082- 8331 Jul, Schizoaffective disorder, bipolar type F25.0 and 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 [facility] [id number] [place] [address] 81903- 6804 Jul, Prediabetes R73.03 ; Primary osteoarthritis of left knee M17.12 ; GERD (gastroesophageal reflux disease) K21.9 ; Bipolar 1 disorder F31.9 ; Depression F32.9 ; Environmental allergies Z91.09 ; Neuropathy G62.9 ; Edema R60.9 ; Body mass index (BMI) of 45.0-49.9 in adult Z68.42 and Morbid ( severe) obesity due to excess calories E66.01 [facility] [address] [address] Jul, [facility] [id number] [place] [address] 87979- 8095 Jun, [facility] [id number] [place] [address] 77636- 6454 Jun, [facility] [id number] [place] [address] 62876- 5182 Jun, Wound of right breast, initial encounter S21.001A and Prediabetes R73.03 [facility] [id number] [place] [address] 43657- 8741 Jun, [facility] [id number] [place] [address] 95660- 7517 May, GERD (gastroesophageal reflux disease) K21.9 [facility] [id number] [place] [address] 88774- 1671 May, Primary osteoarthritis of left knee M17.12 [facility] [id number] [place] [address] 64053- 6104 May, Schizoaffective disorder, bipolar type F25.0 and 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 [facility] [id number] [place] [address] 10449- 3443 May, Left medial knee pain M25.562 ; GERD (gastroesophageal reflux disease) K21.9 ; Depression F32.9 ; Neuropathy G62.9 ; Obesity E66.9 ; Prediabetes R73.03 and Edema R60.9 [facility] [id number] [place] [address] 66367- 2752 14 Mar, 2017 [facility] [id number] [place] [address] 47578- 1716 Mar, [facility] [id number] [place] [address] 97744- 0875 05 Mar, 2017 Post-menopausal bleeding N95.0 and BMI 50.0-59.9, adult Z68.43 [facility] [id number] [place] [address] 58953- 8093 Mar, [facility] [id number] [place] [address] 33861- 0736 Mar, Schizoaffective disorder, bipolar type F25.0 and 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 [facility] [id number] [place] [address] 89970- 2772 27 Mar, 2017 [facility] [id number] [place] [address] 75156- 3875 16 Mar, 2017 [facility] [address] [place] [address]- 0595 Mar, Post-menopausal bleeding N95.0 ; Screening breast examination Z12.31 ; Screen for STD (sexually transmitted disease) Z11.3 ; Obesity E66.9 ; Family history of ovarian cancer Z80.41 and Family history of cervical cancer Z80.49 [facility] [id number] [place] [address] 92906- 0874 Mar, [facility] [address] 22815- 6968 Mar, [facility] [address] 51887- 9274 Jan, Schizoaffective disorder, bipolar type F25.0 and 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 [facility] [address] 56297- 9748 Jan, Schizoaffective disorder, bipolar type F25.0 [facility] [id number] [place] [address] 09148- 7481 Jan, [facility] [address] 12347- 7714 Jan, Prediabetes R73.03 and Obesity E66.9 [facility] [id number] [place] [address] 79301- 8030 Jan, Encounter for immunization Z23 [facility] [id number] [place] [address] 13309- 1213 Jan, [facility] [id number] [place] [address] 94969- 6044 Dec, [facility] [address] 46660- 1316 Dec, [facility] [id number] [place] [address] 34092- 3232 Nov, Neuropathy G62.9 [facility] [address] 83886- 9373 Nov, [facility] [address] [place] [address] 93933- 9634 Nov, Schizoaffective disorder, bipolar type F25.0 [facility] [id number] [place] [address] 02852- 0393 Nov, 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 and Schizoaffective disorder, bipolar type F25.0 [facility] [id number] [place] [address] 78201- 4620 Oct, Schizoaffective disorder, bipolar type F25.0 ; 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 and 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 [facility] [id number] [place] [address] [id number] Oct, Dental caries K02.9 [facility] [id number] [place] [address] 33082- 5940 Sep, Neuropathy G62.9 [facility] [id number] [place] [address] 09436- 3449 Sep, [facility] [id number] [place] [address] 01412- 7065 Sep, Neuropathy G62.9 [facility] [id number] [place] [address] 69129- 3510 Jul, Schizoaffective disorder, depressive type F25.1 [facility] [id number] [place] [address] 24719- 2228 Jul, GERD (gastroesophageal reflux disease) K21.9 ; Joint pain of lower extremity M25.50 ; Environmental allergies Z91.09 ; Stress incontinence of urine N39.3 ; Neuropathy G62.9 ; Edema R60.9 and Acute pain of left knee M25.562 [facility] [address] [place] [address] 37633- 5599 Jun, [facility] [address] [place] [address] [id number] Jun, Dental examination Z01.20 [facility] [id number] [place] [address] 76264- 4003 Jun, [facility] [id number] [place] [address] 58642- 9995 May, [facility] [address] 74218- 0567 May, Bipolar 1 disorder F31.9 ; Joint pain of lower extremity M25.50 ; Environmental allergies Z91.09 ; Stress incontinence of urine N39.3 ; Major depressive disorder, single episode, unspecified F32.9 ; Dizzy R42 ; Schizoaffective disorder, unspecified F25.9 ; Neuropathy G62.9 ; Localized edema R60.0 and GERD (gastroesophageal reflux disease) K21.9 [facility] [id number] [place] [address] 31864- 6719 May, Schizoaffective disorder, depressive type F25.1 [facility] [id number] [place] [address] 06886- 9586 May, Environmental allergies Z91.09 and Major depressive disorder , single episode, unspecified F32.9 [facility] [id number] [place] [address] 21496- 4315 Mar, Dental caries K02.9 [facility] [id number] [place] [address] 99768- 0018 Mar, Dental caries on smooth surface penetrating into pulp K02.63 [facility] [id number] [place] [address] 03460 -1456 Mar, Peripheral edema R60.9 and Dry skin L85.3 [facility] [id number] [place] [address] 90881- 4643 Mar, [facility] [id number] [place] [address] 47061- 1738 Mar, Major depressive disorder, single episode, unspecified F32.9 [facility] [id number] [place] [address] 12257- 6394 09 Mar, 2016 Dental caries K02.9 [facility] [id number] [place] [address] 32026- 1436 07 Mar, 2016 Diabetes mellitus with complication E11.8 ; Urinary frequency R35.0 ; Stress incontinence of urine N39.3 ; Joint pain of lower extremity M25.50 ; Obesity E66.9 ; Environmental allergies Z91.09 ; Depression F32.9 ; Schizoaffective disorder, unspecified F25.9 ; Vaginal discharge N89.8 and Vaginal candidiasis B37.3 [facility] [address] 47563- 5353 20 Jan, 2016 Schizoaffective disorder, unspecified F25.9 [facility] [address] 37824- 0997 Jan, [facility] [address] 78823- 5143 30 Dec, 2015 [facility] [address] 96964- 5358 19 Dec, 2015 Dental caries K02.9 [facility] [address] 14587- 9631 14 Dec, 2015 Obesity E66.9 ; Edema R60.9 ; Depression F32.9 ; Bipolar 1 disorder F31.9 ; 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 ; Environmental allergies Z91.09 ; Shortness of breath R06.02 ; Gastroesophageal reflux disease with esophagitis K21.0 ; Other chronic pain G89.29 ; Pain in right knee M25.561 ; Pain in left knee M25.562 and Encounter for immunization Z23 [facility] [id number] [place] [address] 17410- 8337 08 Nov, 2015 Dental caries K02.9 [facility] [address] 70264- 0222 Oct, Schizoaffective disorder, unspecified F25.9 [facility] [id number] [place] [address] 18444- 6325 Oct, Dental examination Z01.20 [facility] [id number] [place] [address] 75955- 4573 20 Sep, 2015 Dental examination Z01.20 and Dental caries K02.9 [facility] [id number] [place] [address] 40439- 7972 13 Sep, 2015 [facility] [id number] [place] [address] 48180- 8213 Sep, [facility] [id number] [place] [address] 74572- 2523 Sep, [facility] [id number] [place] [address] 93390- 6762 Sep, Schizoaffective disorder, unspecified F25.9 [facility] [id number] [place] [address] 44542- 0592 August, Bipolar disorder, unspecified F31.9 [facility] [id number] [place] [address] 54797- 4887 Jul, Edema R60.9 and Obesity E66.9 [facility] [id number] [place] [address] 15520- 6873 Jul, Edema R60.9 [facility] [id number] [place] [address] 85363- 3437 Jul, Edema R60.9 [facility] [id number] [place] [address] 25346 -6310 Jul, Edema R60.9 [facility] [id number] [place] [address] 44234- 6005 18 Jul, 2015 [facility] [id number] [place] [address] 79798- 6187 08 Jul, 2015 [facility] [id number] [place] [address] 30778- 2828 24 Jun, 2015 Environmental allergies V15.09 and Cough R05 [facility] [id number] [place] [address] 51251- 8920 17 Jun, 2015 Environmental allergies V15.09 ; Edema R60.9 and Cough R05 [facility] [address] 48826 -6013 12 Jun, 2015 Bronchospasm J98.01 [facility] [address] 07952- 1341 10 Jun, 2015 [facility] [address] 39933- 3245 Jun, [facility] [address] 62000- 1666 08 Jun, 2015 Environmental allergies V15.09 ; Bipolar 1 disorder F31.9 ; GERD (gastroesophageal reflux disease) K21.9 ; Depression F32.9 ; Joint pain of lower extremity M25.50 ; COPD (chronic obstructive pulmonary disease) J44.9 and Screening for diabetes mellitus Z13.1 [facility] [id number] [place] [address] 55937- 8475 16 Jun, 2015 [facility] [id number] [place] [address] 66719- 5398 May, [facility] [address] 30360- 1895 14 May, 2015 Schizoaffective disorder, unspecified F25.9 and Bipolar 1 disorder F31.9 [facility] [address] 38900- 6416 May, [facility] [id number] [place] [address] 31877- 4861 12 May, 2015 URI (upper respiratory infection) J06.9 ; Environmental allergies V15.09 and Cough R05 [facility] [address] 21610- 5263 18 Mar, 2015 [facility] [address] 11556- 8917 Mar, Vaginal discharge N89.8 [facility] [address] 00359- 5877 14 Mar, 2015 Schizoaffective disorder, unspecified F25.9 ; Major depressive disorder, single episode, unspecified F32.9 and Bipolar 1 disorder F31.9 [facility] [address] 33597- 8800 Mar, [facility] [address] 58680- 5809 Mar, Bipolar 1 disorder F31.9 [facility] [address] 60538- 3437 Jan, [facility] [address] 78637- 1726 Jan, Allergic rhinitis J30.9 and Cough R05 [facility] [address] 77438- 7735 Jan, 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 ; Bipolar 1 disorder F31.9 ; GERD ( gastroesophageal reflux disease) K21.9 ; Depression F32.9 and Joint pain of lower extremity M25.50 [facility] [address] 40468- 5713 Dec, Encounter for immunization Z23 [facility] [address] 36646- 0462 Dec, Schizoaffective disorder, unspecified 295.70 ; Pain in joint , lower leg 719.46 ; Esophageal reflux 530.81 ; Bipolar 1 disorder 296.7 ; Depression 311 ; GERD (gastroesophageal reflux disease) 530.81 and Environmental allergies V15.09 [facility] [address] [id number] Nov, Dental examination V72.2 [facility] [id number] [place] [address] 20796- 8446 Nov, Acute bronchitis 466.0 [facility] [id number] [place] [address] 71575 2546 Nov, Schizoaffective disorder, unspecified 295.70 and Bipolar disorder, unspecified 296.80 [facility] [id number] [place] [address] [id number] Sep, Dental examination V72.2 [facility] [id number] [place] [address] [id number] August, Dental examination V72.2 [facility] [address] 83624 2546 August, Schizoaffective disorder, unspecified 295.70 [facility] [id number] [place] [address] 68952 2546 August, [facility] [id number] [place] [address] 35088- 5356 August, Vomiting 787.03 [facility] [id number] [place] [address] 27412- 5906 August, Vomiting and diarrhea 787.03 and High risk medication use V58.69 [facility] [id number] [place] [address] 20716- 3756 Jul, [facility] [id number] [place] [address] 40041- 3576 Jul, [facility] [id number] [place] [address] 42291- 3216 Jul, [facility] [id number] [place] [address] 16632- 5966 Jun, [facility] [id number] [place] [address] 64935- 4706 Jun, [facility] [place] [facility] [address] [id number] [place] [address]- 8557 17 Jun, 2014 [facility] [place] [facility] [address] [id number] [place] [address]- 6512 17 Jun, 2014 [facility] [place] [facility] [address] [id number] [place] 2426 16 Jun, 2014 [facility] [place] [facility] [address] [id number] [place] [address]- 8570 13 Jun, 2014 [facility] [place] [facility] [address] [id number] [place] [address]- 3316 13 Jun, 2014 [facility] [place] [facility] [address] [id number] [place] [address]- 1244 Jun, 2014 [facility] [place] [facility] [address] [id number] [place] [address]- 1385 Jun, 2014 [facility] [place] [facility] [address] [id number] [place] [address]- 0006 Mar, [facility] [place] [facility] [address] [id number] [place] [address]- 0832 Mar, [facility] [place] [facility] [address] [id number] [place] [address]- 7128 Mar, [facility] [place] [facility] [address] [id number] [place] [address]- 3908 Mar, [facility] [place] [facility] [address] [id number] [place] [address]- 9805 Mar, [facility] [place] [facility] [address] [id number] [place] [address]- 1571 Mar, [facility] [place] [facility] [address] [id number] [place] [address]- 5068 Mar, [facility] [place] [facility] [address] [id number] [place] [address]- 7262 Mar, [facility] [place] [facility] [address] [id number] [place] [address]- 2239 Mar, [facility] [place] [facility] [address] [id number] [place] [address]- 2943 Mar, [facility] [place] [facility] [address] [id number] [place] 6577 Jan, [facility] [place] [facility] [address] [id number] [place] [address]- 3001 Jan, [facility] [place] [facility] [address] [id number] [place] [address]- 2060 Jan, [facility] [place] [facility] [address] [id number] [place] [address]- 4383 Jan, [facility] [place] [facility] [address] [id number] [place] [address]- 8731 Jan, [facility] [place] [facility] [address] [id number] [place] [address]- 1141 Jan, [facility] [place] [facility] [address] [id number] [place] [address]- 2420 Jan, [facility] [place] [facility] [address] [id number] [place] [address]- 1607 Jan, [facility] [place] [facility] [address] [id number] [place] [address]- 1196 19 Dec, 2013 [facility] [place] [facility] [address] [id number], [place] [address]- 8909 19 Dec, 2013 [facility] [place] [facility] [address] [id number], [place] [address]- 5738 15 Dec, 2013 [facility] [place] [facility] [address] [id number] [place] [address]- 3181 15 Dec, 2013 [facility] [place] [facility] [address] [id number] [place] [address]- 4623 15 Dec, 2013 [facility] [place] [facility] [address] [id number] [place] [address]- 4489 15 Dec, 2013 [facility] [place] [facility] [address] [id number] [place] [address]- 3649 Dec, [facility] [place] [facility] [address] [id number] [place] [address]- 5300 Dec, [facility] [place] [facility] [address] [id number] [place] [address]- 5182 Dec, [facility] [place] [facility] [address] [id number] [place] [address]- 9699 Dec, [facility] [place] [facility] [address] [id number] [place] [address] Nov, [facility] [place] [facility] [address] [id number] [place] [address] Nov, [facility] [place] [facility] [address] [id number] [place] [address] Nov, [facility] [place] [facility] [address] [id number] [place] [address] Nov, [facility] [place] [facility] [address] [id number] [place] [address] Oct, [facility] [place] [facility] [address] [id number] [place] [address] Oct, [facility] [place] [facility] [address] [id number] [place] [address] Oct, [facility] [place] [facility] [address] [id number] [place] [address] Oct, [facility] [place] [facility] [address] [id number] [place] [address] Sep, [facility] [place] [facility] [address] [id number] [place] [address] Sep, [facility] [place] [facility] [address] [id number] [place] [address] Sep, [facility] [place] [facility] [address] [id number] [place] [address] Sep, [facility] [place] [facility] [address] [id number] [place] [address] Sep, [facility] [place] [facility] [address] [id number] [place] [address] Sep, [facility] [place] [facility] [address] [id number] [place] [address] Sep, [facility] [place] [facility] [address] [id number] [place] [address] Sep, [facility] [place] [facility] [address] [id number] [place] [address] August, [facility] [place] [facility] [address] [id number] [place] [address] August, [facility] [place] [facility] [address] [id number] [place] [address] Jul, [facility] [place] [facility] [address] [id number] [place] [address] Jul, [facility] [place] [facility] [address] [id number] [place] [address] Jul, [facility] [place] [facility] [address] [id number] [place] [address] Jul, [facility] [place] [facility] [address] [id number] [place] [address] Jul, [facility] [place] [facility] [address] [id number] [place] [address] Jul, [facility] [place] [facility] [address] [id number] [place] [address]- [address] Jul, [facility] [place] [facility] [address] [id number] [place] [address] Jul, [facility] [place] [facility] [address] [id number] [place] [address] Jul, [facility] [place] [facility] [address] [id number], [place] [address] 07 Jul, 2013 [facility] [place] [facility] [address] [id number] [place] [address] 27 Jun, 2013 [facility] [place] [facility] [address] [id number] [place] [address] 27 Jun, 2013 [facility] [place] [facility] [address] [id number] [place] [address] 18 Jun, 2013 [facility] [place] [facility] [address] [id number] [place] [address] 18 Jun, 2013 [facility] [place] [facility] [address] [id number] [place] [address] 17 Jun, 2013 [facility] [place] [facility] [address] [id number] [place] [address] 17 Jun, 2013 [facility] [place] [facility] [address] [id number] [place] [address] 17 Jun, 2013 [facility] [place] [facility] [address] [id number] [place] [address] 17 Jun, 2013 [facility] [place] [facility] [address] [id number] [place] [address] 14 Jun, 2013 [facility] [place] [facility] [address] [facility] [id number] [place] [address] 14 Jun, 2013 [facility] [place] [facility] [address] [id number] [place] [address] 07 Jun, 2013 [facility] [place] [facility] [address] [id number] [place] [address] 07 Jun, 2013 [facility] [place] [facility] [address] [id number] [place] [address] Jun, [facility] [place] [facility] [address] [id number] [place] [address] Jun, [facility] [place] [facility] [address] [id number] [place] [address] 1986 17 Jun, 2013 [facility] [place] [facility] [address] [id number] [place] [address] Jun, [facility] [address] [id number] [place] [address] May, [facility] [address] [id number] [place] [address] May, [facility] [address] [id number] [place] [address] 8426 May, [facility] [address] [id number] [place] [address]- 7026 May, [facility] [address] [id number] [place] [address]268 Mar, [facility] [address] [id number] [place] [address] Mar, [facility] [address] [id number] [place] [address] Mar, [facility] [address] [id number] [place] [address] Mar, [facility] [address] [id number] [place] [address] Mar, [facility] [place] [facility] [address] [id number] [place] [address] Mar, [facility] [place] [facility] [address] [id number], [place] [address] Mar, [facility] [place] [facility] [address] [id number] [place] [address] Mar, [facility] [place] [facility] [address] [id number] [place] [address]163 Jan, [facility] [place] [facility] [address] [id number] [place] [address]- 0710 Jan, [facility] [place] [facility] [address] [id number] [place] [address] Jan, [facility] [place] [facility] [address] [id number] [place] [address] Jan, [facility] [place] [facility] [address] [id number] [place] [address]- 6296 Jan, [facility] [place] [facility] [address] [id number] [place] [address] 2545 Jan, [facility] [place] [facility] [address] [id number] [place] [address]- 3766 Jan, [facility] [place] [facility] [address] [id number] [place] [address] Dec, [facility] [place] [facility] [address] [id number] [place] [address] 53[address] Nov, [facility] [place] [facility] [address] [id number] [place] [address]677 Oct, [facility] [place] [facility] [address] [id number] [place] [address] 5951 Oct, [facility] [place] [facility] [address] [id number] [place] [address]- 1731 Sep, [facility] [place] [facility] [address] [id number] [place] [address] 6[address] Sep, [facility] [place] [facility] [address] [id number] [place] [address]- 0666 Sep, [facility] [place] [facility] [address] [id number] [place] [address] August, [facility] [place] [facility] [address] [id number] [place] [address] 3837 Jun, [facility] [place] [facility] [address] [id number] [place] [address] 9593 Jun, [facility] [place] [facility] [address] [id number] [place] [address] 9698 15 Jun, 2012 [facility] [place] [facility] [address] [id number] [place] [address] 8814 15 Jun, 2012 [facility] [address] [id number] [place] [address]- 8255 13 Jun, 2012 [facility] [place] [facility] [address] [id number] [place] [address] 4326 12 Jun, 2012 [facility] [address] [id number] [place] [address]- [address]366 07 Jun, 2012 [facility] [address] [id number] [place] [address] 31 May, 2012 [facility] [address] [id number] [place] [address]- 2916 May, [facility] [address] [id number] [place] [address]- 5320 14 May, 2012 [facility] [address] [id number] [place] [address]- 1047 May, [facility] [address] [id number] [place] [address] 4951 May, [facility] [address] [id number] [place] [address]- 0567 May, [facility] [address] [id number] [place] [address]- 0164 May, [facility] [address] [id number] [place] [address] 8991 Mar, [facility] [address] [id number] [place] [address]- 0470 Mar, [facility] [place] [facility] [address] [id number] [place] [address]- 7862 Mar, [facility] [place] [facility] [address] [id number] [place] [address] 1191 Mar, [facility] [address] [id number] [place] [address]- 3688 05 Mar, 2012 [facility] [place] [facility] [address] [id number] [place] [address]- 2626 05 Mar, 2012 [facility] [place] [facility] [address] [id number] [place] [address] 8672 Mar, [facility] [place] [facility] [address] [facility] [id number] [place] [address] 1976 Mar, [facility] [place] [facility] [address] [id number] [place] [address]- 3889 Mar, [facility] [place] [facility] [address] [id number] [place] [address]- 6669 Mar, [facility] [place] [facility] [address] [id number] [place] [address]- 8305 Mar, [facility] [place] [facility] [address] [id number] [place] [address]- 1112 Mar, [facility] [place] [facility] [address] [id number], [place] [address] 5880 Mar, [facility] [place] [facility] [address] [id number], [place] [address] 4137 Mar, [facility] [place] [facility] [address] [id number] [place] [address]- 5129 Mar, [facility] [place] [facility] [address] [id number], [place] [address] 4516 Mar, [facility] [place] [facility] [address] [id number], [place] [address]- 2544 Mar, [facility] [place] [facility] [address] [id number] [place] [address]- 6702 Mar, [facility] [place] [facility] [address] [facility] [id number], [place] [address]- 0990 Mar, [facility] [place] [facility] [address] [facility] [id number], [place] [address]- 7715 Jan, [facility] [place] [facility] [id number] [address] Jan, [facility] [id number] [address] Jan, [facility] [id number], [place] [address] 0000 Jan, [facility] [id number], [place] [address] Dec, [facility] [id number], [place] [address] 9981 Dec, [facility] [id number] [place] [address]- [address] Dec, [facility] [id number] [place] [address]- 7778 Nov, [facility] [id number] [place] [address]- 3530 Nov, [facility] [id number], [place] [address]- 0765 Oct, [facility] [id number] [place] [address]- 1318 Oct, [facility] [address], [place] [address]- 6532 Oct, [facility] [address], [place] [address]- 0032 Oct, [facility] [id number], [place] [address]- [address]94 Oct, [facility] [id number], [place] [address]- [address] Oct, IMMUNIZATIONS No Known Immunizations SOCIAL HISTORY [...]
--- OUTSIDE RECORDS SUMMARY | 2018-05-15 06:59 | XMS REPORT ---
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 Active 978407352 Problem Major depressive disorder, single episode, unspecified F32.9 Active 04670323 Problem Stress incontinence of urine N39.3 Active 80604200 Problem Acute pain of left knee M25.562 Active 60288999 Problem Neuropathy G62.9 Active 767352070 Problem Joint pain of lower extremity M25.50 Active 83328779 Problem 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
--- OUTSIDE RECORDS SUMMARY | 2018-05-15 06:59 | XMS REPORT ---
Author Author NIYAH Romano Organization [facility] Address [address] [place] [address] Care Team Providers Care Senior Medical Billing Specialist Name Role Phone NIYAH Romano Unavailable PROBLEMS Type Condition ICD9-CM Code BKB94-PR Code Onset Dates Condition Status SNOMED Code Problem Stress incontinence of urine N39.3 Active 19043398 Problem Neuropathy G62.9 Active 869509633 Problem Major depressive disorder, single episode, unspecified F32.9 Active 19254670 Problem Morbid (severe) obesity due to excess calories E66.01 Active 868004139 Problem Body mass index (BMI) of 45.0-49.9 in adult Z68.42 Active 864312863 Problem 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 Active 158205383 Problem Schizoaffective disorder, bipolar type F25.0 Active 11510546 Problem Primary osteoarthritis of left knee M17.12 Active 046225281 Problem Post-menopausal bleeding N95.0 Active 22473462 Problem Depression F32.9 Active 18227800 Problem Bipolar 1 disorder F31.9 Active 883774807 Problem Edema R60.9 Active 203799242 Problem GERD (gastroesophageal reflux disease) K21.9 Active 930645302 Problem Obesity E66.9 Active 696706067 Problem Joint pain of lower extremity M25.50 Active 88004493 Problem Environmental allergies Z91.09 Active 380896130 ALLERGIES No Information ENCOUNTERS Encounter Location Date Diagnosis [facility] [address] [facility] [id number] [address] Jul, [facility] [id number] [place] [address] 33503- 7558 Jul, [facility] [address] [place] [id number] [address] Jul, Prediabetes R73.03 ; Primary osteoarthritis of left knee M17.12 ; GERD (gastroesophageal reflux disease) K21.9 ; Bipolar 1 disorder F31.9 ; Depression F32.9 ; Environmental allergies Z91.09 ; Neuropathy G62.9 ; Edema R60.9 ; Body mass index (BMI) of 45.0-49.9 in adult Z68.42 and Morbid ( severe) obesity due to excess calories E66.01 [place] [address] [address]- [address] Jul, [place] [address] 92981- 3316 Jun, [place] [address] [address]66- 1987 Jun, [place] [address] 06763- 3920 Jun, Wound of right breast, initial encounter S21.001A and Prediabetes R73.03 [place] [address] 56272- 8304 Jun, [place] [address] 70485- 5004 May, GERD (gastroesophageal reflux disease) K21.9 [place] [address] 04544- 7380 May, Primary osteoarthritis of left knee M17.12 [place] [address] [place] [id number] [place] [address] 50618- 6452 May, Schizoaffective disorder, bipolar type F25.0 and 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 [place] [address] 61241- 7631 May, Left medial knee pain M25.562 ; GERD (gastroesophageal reflux disease) K21.9 ; Depression F32.9 ; Neuropathy G62.9 ; Obesity E66.9 ; Prediabetes R73.03 and Edema R60.9 [place] [address] [place] [address]- [address] 14 Mar, 2017 [facility] [address] [place] [id number] [place] [address] 39561- 9588 08 Mar, 2017 [facility] [address] [place] [address] 73055- 7512 05 Mar, 2017 Post-menopausal bleeding N95.0 and BMI 50.0-59.9, adult Z68.43 [place] [address] [place] [id number] [place] [address] 02972- 1385 Mar, [facility] [address] [id number] [place] [address] 02584- 7063 Mar, Schizoaffective disorder, bipolar type F25.0 and 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 [place] [address] [id number] [place] [address] 18400- 9329 Mar, [place] [address] [place] [id number] [place] [address] 85428- 4602 Mar, [place] [address] [id number] [place] [address] 43538- 4477 Mar, Post-menopausal bleeding N95.0 ; Screening breast examination Z12.31 ; Screen for STD (sexually transmitted disease) Z11.3 ; Obesity E66.9 ; Family history of ovarian cancer Z80.41 and Family history of cervical cancer Z80.49 [place] [address] [address] Mar, [facility] [address] [address] 9893 Mar, [facility] [id number] [place] [address] 64303- 1936 Jan, Schizoaffective disorder, bipolar type F25.0 and 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 [facility] [address] [address] Jan, Schizoaffective disorder, bipolar type F25.0 [facility] [id number] [address] 87[address] Jan, [facility] [address] [id number] [place] [address] 71831- 3073 Jan, Prediabetes R73.03 and Obesity E66.9 [facility] [id number] [place] [address] 45131- 2178 Jan, Encounter for immunization Z23 [facility] [address] [place] [address] [id number] [place] [address] 64660- 5921 Jan, [facility] [id number] [place] [address] 16550- 1542 Dec, [facility] [id number] [place] [address] 57423- 1735 Dec, [facility] [id number] [place] [address] 96840- 9339 Nov, Neuropathy G62.9 [facility] [id number] [place] [address] 17045- 5195 Nov, [facility] [id number] [place] [address] 40802- 1679 Nov, Schizoaffective disorder, bipolar type F25.0 [facility] [address] [place] [address] 52047- 6524 Nov, Other chcf (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 Z79.899 and Schizoaffective disorder, bipolar type F25.0 [facility] [address] [address] 1587 Oct, Schizoaffective disorder, bipolar type F25.0 ; Other chcf (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 Z79.899 and 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 [facility] [address] [id number] [id number] Oct, Dental caries K02.9 [facility] [id number] [place] [address] 19755- 6177 Sep, Neuropathy G62.9 [place] [address] 06753- 4625 Sep, [place] [address] 40439- 3693 Sep, Neuropathy G62.9 [place] [address] 17959- 6315 Jul, Schizoaffective disorder, depressive type F25.1 [place] [address] 66902- 9951 Jul, GERD (gastroesophageal reflux disease) K21.9 ; Joint pain of lower extremity M25.50 ; Environmental allergies Z91.09 ; Stress incontinence of urine N39.3 ; Neuropathy G62.9 ; Edema R60.9 and Acute pain of left knee M25.562 [place] [address] 97669- 7597 Jun, [facility] [address] [id number] Jun, Dental examination Z01.20 [place] [address] [place] [id number] [place] [address] 27841- 4262 02 Jun, 2016 [place] [address] [place] [id number] [place] [address] 15737- 1402 May, [place] [address] 17185- 4841 May, Bipolar 1 disorder F31.9 ; Joint pain of lower extremity M25.50 ; Environmental allergies Z91.09 ; Stress incontinence of urine N39.3 ; Major depressive disorder, single episode, unspecified F32.9 ; Dizzy R42 ; Schizoaffective disorder, unspecified F25.9 ; Neuropathy G62.9 ; Localized edema R60.0 and GERD (gastroesophageal reflux disease) K21.9 [place] [address] [place] [id number] [place] [address] 85650- 7865 May, Schizoaffective disorder, depressive type F25.1 [place] [address] 93877- 3960 May, Environmental allergies Z91.09 and Major depressive disorder , single episode, unspecified F32.9 [place] [address] 38756- 0103 Mar, Dental caries K02.9 [place] [address] 99750- 3918 Mar, Dental caries on smooth surface penetrating into pulp K02.63 [facility] [place] [address] 44454 -5611 Mar, Peripheral edema R60.9 and Dry skin L85.3 [place] [address] 07315- 4988 Mar, [place] [address] 95917- 0917 Mar, Major depressive disorder, single episode, unspecified F32.9 [place] [address] 91946- 9536 Mar, Dental caries K02.9 [place] [address] [place] [id number] [place] [address] 65239- 8918 Mar, Diabetes mellitus with complication E11.8 ; Urinary frequency R35.0 ; Stress incontinence of urine N39.3 ; Joint pain of lower extremity M25.50 ; Obesity E66.9 ; Environmental allergies Z91.09 ; Depression F32.9 ; Schizoaffective disorder, unspecified F25.9 ; Vaginal discharge N89.8 and Vaginal candidiasis B37.3 [place] [address] [place] [id number] [place] [address] 62681- 1840 Jan, Schizoaffective disorder, unspecified F25.9 [place] [address] 08056- 6869 17 Jan, 2016 [facility] [id number] [place] [address] 15926- 2475 30 Dec, 2015 [place] [address] 30632- 6077 19 Dec, 2015 Dental caries K02.9 [place] [address] 32135- 5947 14 Dec, 2015 Obesity E66.9 ; Edema R60.9 ; Depression F32.9 ; Bipolar 1 disorder F31.9 ; 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 ; Environmental allergies Z91.09 ; Shortness of breath R06.02 ; Gastroesophageal reflux disease with esophagitis K21.0 ; Other chronic pain G89.29 ; Pain in right knee M25.561 ; Pain in left knee M25.562 and Encounter for immunization Z23 [place] [address] 85386- 0329 Nov, Dental caries K02.9 [place] [address] 62135- 2640 Oct, Schizoaffective disorder, unspecified F25.9 [place] [address] [place] [id number] [place] [address] 86531- 3418 12 Oct, 2015 Dental examination Z01.20 [place] [address] [place] [id number] [place] [address] 62173- 4221 Sep, Dental examination Z01.20 and Dental caries K02.9 [place] [address] [place] [id number] [place] [address] 45175- 2637 13 Sep, 2015 [place] [address] 31829- 0281 09 Sep, 2015 [place] [address] 16756- 6320 07 Sep, 2015 [place] [address] 18510- 6394 Sep, Schizoaffective disorder, unspecified F25.9 [facility] [id number] [place] [address] 01091- 6971 August, Bipolar disorder, unspecified F31.9 [facility] [id number] [place] [address] 31836- 4013 Jul, Edema R60.9 and Obesity E66.9 [facility] [address] 72294- 8366 Jul, Edema R60.9 [place] [address] 43442- 7697 Jul, Edema R60.9 [facility] [address] 10962 -5911 Jul, Edema R60.9 [place] [address] 45394- 7500 Jul, [place] [address] 64971- 3849 Jul, [place] [address] 64636- 9321 24 Jun, 2015 Environmental allergies V15.09 and Cough R05 [place] [address] [place] [id number] [place] [address] 70014- 4591 17 Jun, 2015 Environmental allergies V15.09 ; Edema R60.9 and Cough R05 [facility] [id number] [place] [address] 02049 -8524 12 Jun, 2015 Bronchospasm J98.01 [place] [address] 42276- 2434 10 Jun, 2015 [place] [address] 92881- 9174 Jun, [place] [address] 77877- 7932 08 Jun, 2015 Environmental allergies V15.09 ; Bipolar 1 disorder F31.9 ; GERD (gastroesophageal reflux disease) K21.9 ; Depression F32.9 ; Joint pain of lower extremity M25.50 ; COPD (chronic obstructive pulmonary disease) J44.9 and Screening for diabetes mellitus Z13.1 [place] [address] 49030- 6055 16 Jun, 2015 [place] [address] 28219- 9871 May, [place] [address] 36881- 7954 May, Schizoaffective disorder, unspecified F25.9 and Bipolar 1 disorder F31.9 [place] [address] 22518- 1701 May, [address] 18132- 1412 May, URI (upper respiratory infection) J06.9 ; Environmental allergies V15.09 and Cough R05 [address] 70563- 1012 18 Mar, 2015 [place] [address] 29205- 6461 15 Mar, 2015 Vaginal discharge N89.[address] 12307- 5426 14 Mar, 2015 Schizoaffective disorder, unspecified F25.9 ; Major depressive disorder, single episode, unspecified F32.9 and Bipolar 1 disorder F31.[address] 43116- 6942 30 Mar, 2015 [place] [address] 90406- 2669 Mar, Bipolar 1 disorder F31.[address] 05115- 3244 Jan, [facility] [id number] [place] [address] 70671- 2142 Jan, Allergic rhinitis J30.9 and Cough R05 [facility] [address] [place] [address] [id number] [place] [address] 56644- 8289 Jan, 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 ; Bipolar 1 disorder F31.9 ; GERD ( gastroesophageal reflux disease) K21.9 ; Depression F32.9 and Joint pain of lower extremity M25.50 [facility] [address] [place] [id number] [place] [address] 72250- 9915 Dec, Encounter for immunization Z23 [place] [address] 71302- 2655 Dec, Schizoaffective disorder, unspecified 295.70 ; Pain in joint , lower leg 719.46 ; Esophageal reflux 530.81 ; Bipolar 1 disorder 296.7 ; Depression 311 ; GERD (gastroesophageal reflux disease) 530.81 and Environmental allergies V15.09 [facility] [address] [id number] Nov, Dental examination V72.2 [facility] [address] 05485- 3620 Nov, Acute bronchitis 466.0 [place] [address] 87754- 8876 Nov, Schizoaffective disorder, unspecified 295.70 and Bipolar disorder, unspecified 296.80 [facility] [address] [place] [address] [id number] [place] [address] [id number] Sep, Dental examination V72.2 [facility] [address] [id number] August, Dental examination V72.2 [facility] [address] [id number] [place] [address] [id number]- 1642 August, Schizoaffective disorder, unspecified 295.70 [facility] [address] [place] [address]- 6620 August, [facility] [address] [address]- 3791 August, Vomiting 787.03 [facility] [id number] [address]- 8184 August, Vomiting and diarrhea 787.03 and High risk medication use V58.69 [facility] [id number] [address]- 0224 Jul, [facility] [address] [address]- 7712 Jul, [facility] [id number] [place] [address] 90658- 3511 Jul, [facility] [id number] [address]- 2920 Jun, [facility] [id number] [address]- 1173 Jun, [facility] [id number] [address]- 3391 Jun, [facility] [id number] [address]- 5656 Jun, [facility] [id number] [address]- 6449 16 Jun, 2014 [facility] [place] [facility] [id number] [address]- 2923 Jun, [facility] [id number] [address]- 5425 Jun, [facility] [place] [facility] [id number] [address]- 0149 Jun, [facility] [id number] [address]- 7874 Jun, [facility] [place] [facility] [id number] [address]- 9306 Mar, [facility] [place] [facility] [address] [id number] [place] [address]- 0265 Mar, [facility] [place] [facility] [address] [id number] [place] 2633 Mar, [facility] [place] [facility] [address] [id number] [place] [address]- 6192 Mar, [facility] [place] [facility] [address] [id number] [place] 3276 Mar, [facility] [place] [facility] [address] [id number] [place] [address]- 5615 Mar, [facility] [place] [facility] [address] [id number] [place] 8227 Mar, [facility] [place] [facility] [address] [id number] [place] [address]- 6574 Mar, [facility] [place] [facility] [address] [id number] [place] [address]- 9619 Mar, [facility] [place] [facility] [address] [id number] [place] [address]- 3997 Mar, [facility] [place] [facility] [address] [id number] [place] [address]- 3160 Jan, [facility] [place] [facility] [address] [id number] [place] [address]- 5018 31 Jan, 2014 [facility] [place] [facility] [address] [id number] [place] [address]- 7540 31 Jan, 2014 [facility] [place] [facility] [address] [id number] [place] [address]- 1955 31 Jan, 2014 [facility] [place] [facility] [address] [id number] [place] [address]- 9870 Jan, [facility] [place] [facility] [address] [id number] [place] 2962 Jan, [facility] [place] [facility] [address] [id number] [place] [address]- 7283 Jan, [facility] [place] [facility] [address] [id number] [place] [address]- 4129 Jan, [facility] [place] [facility] [address] [id number] [place] [address]- 1569 19 Dec, 2013 [facility] [place] [facility] [address] [id number] [place] [address]- 9328 19 Dec, 2013 [facility] [place] [facility] [address] [id number] [place] [address]- 9469 15 Dec, 2013 [facility] [place] [facility] [address] [id number] [place] [address]- 0251 15 Dec, 2013 [facility] [place] [facility] [address] [id number] [place] [address]- 5076 15 Dec, 2013 [facility] [place] [facility] [address] [id number] [place] [address]- 2744 15 Dec, 2013 [facility] [place] [facility] [address] [id number] [place] [address]- 2751 12 Dec, 2013 [facility] [place] [facility] [address] [id number] [place] [address]- 8574 Dec, [facility] [place] [facility] [address] [id number] [place] [address]- 4302 Dec, [facility] [place] [facility] [address] [id number] [place] [address]- 6456 Dec, [facility] [place] [facility] [address] [id number] [place] [address]- 0834 Nov, [facility] [place] [facility] [address] [id number] [place] [address]- 8891 Nov, [facility] [place] [facility] [address] [id number] [place] [address]- 8725 Nov, [facility] [place] [facility] [address] [id number] [place] [address]- 8791 Nov, [facility] [place] [facility] [address] [id number] [place] [address]- 5751 Oct, [facility] [place] [facility] [address] [id number] [place] [address]- 5101 Oct, [facility] [place] [facility] [address] [id number] [place] [address]- 7597 Oct, [facility] [place] [facility] [address] [id number] [place] [address]- 5084 Oct, [facility] [place] [facility] [address] [id number] [place] [address]- 9058 Sep, [facility] [place] [facility] [address] [id number] [place] [address]- 3682 Sep, [facility] [place] [facility] [address] [id number] [place] [address]- 2885 Sep, [facility] [place] [facility] [address] [id number] [place] [address]- 9303 Sep, [facility] [place] [facility] [address] [id number] [place] [address]- 3875 Sep, [facility] [place] [facility] [address] [id number] [place] [address]- 4899 Sep, [facility] [place] [facility] [address] [id number] [place] [address]- 2663 Sep, [facility] [place] [facility] [address] [id number] [place] [address]- 8422 Sep, [facility] [place] [facility] [address] [id number] [place] [address]- 6937 August, [facility] [place] [facility] [address] [id number] [place] [address]- 0941 August, [facility] [place] [facility] [address] [id number] [place] [address]- 5207 Jul, [facility] [place] [facility] [address] [id number] [place] [address]- 4816 30 Jul, 2013 [facility] [place] [facility] [address] [id number] [place] [address]- 6696 Jul, [facility] [place] [facility] [address] [id number] [place] [address]- 3256 Jul, [facility] [place] [facility] [address] [id number] [place] [address]- 2395 Jul, [facility] [place] [facility] [address] [id number] [place] [address]- 7212 Jul, [facility] [place] [facility] [address] [id number] [place] [address]- 2531 Jul, [facility] [place] [facility] [address] [id number] [place] [address]- 3724 Jul, [facility] [place] [facility] [address] [id number] [place] [address]- 9729 Jul, [facility] [place] [facility] [address] [id number] [place] [address]- 0609 Jul, [facility] [place] [facility] [address] [id number] [place] [address]- 0163 Jun, [facility] [place] [facility] [address] [id number] [place] [address] 27 Jun, 2013 [facility] [place] [facility] [address] [id number] [place] [address] 18 Jun, 2013 [facility] [place] [facility] [address] [id number] [place] [address] 18 Jun, 2013 [facility] [place] [facility] [address] [id number] [place] [address] 17 Jun, 2013 [facility] [place] [facility] [address] [id number] [place] [address] 17 Jun, 2013 [facility] [place] [facility] [address] [id number] [place] [address] 17 Jun, 2013 [facility] [place] [facility] [address] [id number] [place] [address] 17 Jun, 2013 [facility] [place] [facility] [address] [id number] [place] [address] 14 Jun, 2013 [facility] [place] [facility] [address] [id number] [place] [address] Jun, [facility] [place] [facility] [address] [id number] [place] [address] Jun, [facility] [place] [facility] [address] [id number] [place] [address] Jun, [facility] [place] [facility] [address] [id number] [place] [address] Jun, [facility] [place] [facility] [address] [id number] [place] [address] Jun, [facility] [place] [facility] [address] [id number] [place] [address] Jun, [facility] [place] [facility] [address] [id number] [place] [address] Jun, [facility] [place] [facility] [address] [id number] [place] [address] May, [facility] [place] [facility] [address] [id number] [place] [address] May, [facility] [place] [facility] [address] [id number] [place] [address] May, [facility] [place] [facility] [address] [id number] [place] [address] May, [facility] [place] [facility] [address] [id number] [place] [address] Mar, [facility] [place] [facility] [address] [id number] [place] [address] Mar, [facility] [place] [facility] [address] [id number] [place] [address] Mar, [facility] [address] [id number] [place] [address] Mar, [facility] [place] [facility] [address] [id number] [place] [address] Mar, [facility] [address] [id number] [place] [address] Mar, [facility] [place] [facility] [address] [id number] [place] [address] Mar, [facility] [address] [id number] [place] [address] Mar, [facility] [address] [id number] [place] [address] Jan, [facility] [address] [id number] [place] [address] Jan, [facility] [address] [id number] [place] [address] Jan, [facility] [address] [id number] [place] [address] Jan, [facility] [address] [id number] [place] [address] Jan, [facility] [place] [facility] [address] [id number] [place] [address] Jan, [facility] [address] [id number] [place] [address] Jan, [facility] [place] [facility] [address] [id number] [place] [address] Dec, [facility] [place] [facility] [address] [id number] [place] [address] Nov, [facility] [place] [facility] [address] [id number] [place] [address] Oct, [facility] [address] [id number] [place] [address] 16 Oct, 2012 [facility] [place] [facility] [address] [id number] [place] [address] Sep, [facility] [place] [facility] [address] [id number] [place] [address] Sep, [facility] [place] [facility] [address] [id number] [place] [address] Sep, [facility] [place] [facility] [address] [id number] [place] [address] August, [facility] [place] [facility] [address] [id number] [place] [address] Jun, [facility] [place] [facility] [address] [id number] [place] [address] 20 Jun, 2012 [facility] [place] [facility] [address] [id number] [place] [address] 15 Jun, 2012 [facility] [place] [facility] [address] [id number] [place] [address] 15 Jun, 2012 [facility] [place] [facility] [address] [id number] [place] [address] Jun, [facility] [place] [facility] [address] [id number] [place] [address] Jun, [facility] [place] [facility] [address] [id number] [place] [address] Jun, [facility] [place] [facility] [address] [id number] [place] [address] May, [facility] [place] [facility] [address] [id number] [place] [address] May, [facility] [place] [facility] [address] [id number] [place] [address] 14 May, 2012 [facility] [place] [facility] [address] [id number] [place] [address] May, [facility] [address] [id number] [place] [address] May, [facility] [address] [id number] [place] [address] May, [facility] [address] [id number] [place] [address] May, [facility] [address] [id number] [place] [address] Mar, [facility] [address] [id number] [place] [address] Mar, [facility] [address] [id number] [place] [address] Mar, [facility] [address] [id number] [place] [address] Mar, [facility] [address] [id number] [place] [address]- [address] Mar, [facility] [address] [id number] [place] [address] Mar, [facility] [address] [facility] [id number] [place] [address] Mar, [facility] [address] [id number] [place] [address] Mar, [facility] [address] [id number] [place] [address] Mar, [facility] [address] [id number] [place] [address] Mar, [facility] [address] [id number] [place] [address] Mar, [facility] [address] [id number] [place] [address] Mar, [facility] [place] [facility] [address] [id number] [place] [address] Mar, [facility] [place] [facility] [address] [id number] [place] [address]- [address] Mar, [facility] [place] [facility] [address] [id number] [place] [address] Mar, [facility] [place] [facility] [address] [id number] [place] [address] Mar, [facility] [place] [facility] [address] [id number] [place] [address] Mar, [facility] [place] [facility] [address] [id number] [place] [address] Mar, [facility] [place] [facility] [address] [facility] [id number] [place] [address] Mar, [facility] [place] [facility] [address] [id number] [place] [address] Jan, [facility] [place] [facility] [address] [id number] [place] [address] Jan, [facility] [place] [facility] [address] [facility] [id number] [place] [address] Jan, [facility] [place] [facility] [address] [facility] [id number] [place] [address] Jan, [facility] [place] [facility] [address] [id number] [place] [address] Dec, [facility] [place] [facility] [address] [id number] [place] [address] 18 Dec, 2011 [facility] [place] [facility] [address] [facility] [id number] [place] [address] Dec, [facility] [place] [facility] [address] [facility] [id number] [place] [address] Nov, [facility] [place] [facility] [address] [id number] [place] [address] Nov, [facility] [address] [id number] [place] [address] Oct, [facility] [id number] [address] Oct, [facility] [address] [id number] [place] [address] Oct, [facility] [address] [id number] [place] [address] Oct, [facility] [address] [id number] [place] [address] Oct, [facility] [address] [id number] [place] [address] 2015 Oct, IMMUNIZATIONS No Known Immunizations SOCIAL HISTORY Never Assessed REASON FOR VISIT Medication refill request PLAN OF CARE VITAL SIGNS MEDICATIONS Medication Instructions Dosage Frequency Start Date End Date Duration Status Meloxicam 7.5 MG Orally 2 times a day 1 tablet 12h 30 Active RESULTS No Results PROCEDURES No [...]
--- OUTSIDE RECORDS SUMMARY | 2018-05-15 07:00 | XMS REPORT ---
Author Author NIYAH Romano 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 Name Role Phone NIYAH Romano Unavailable PROBLEMS Type Condition ICD9-CM Code SVV00-ZO Code Onset Dates Condition Status SNOMED Code Problem Stress incontinence of urine N39.3 Active 33492062 Problem Neuropathy G62.9 Active 505858199 Problem Major depressive disorder, single episode, unspecified F32.9 Active 33824355 Problem Morbid (severe) obesity due to excess calories E66.01 Active 498372392 Problem Body mass index (BMI) of 45.0-49.9 in adult Z68.42 Active 812467564 Problem 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 Active 667834262 Problem Schizoaffective disorder, bipolar type F25.0 Active 82120157 Problem Primary osteoarthritis of left knee M17.12 Active 900325504 Problem Post-menopausal bleeding N95.0 Active 28092251 Problem Depression F32.9 Active 61860410 Problem Bipolar 1 disorder F31.9 Active 738428082 Problem Edema R60.9 Active 271365916 Problem GERD (gastroesophageal reflux disease) K21.9 Active 182729908 Problem Obesity E66.9 Active 720650689 Problem Joint pain of lower extremity M25.50 Active 81156203 Problem Environmental allergies Z91.09 Active 850483597 ALLERGIES No Information ENCOUNTERS Encounter Location Date Diagnosis [facility] [id number] [address] Oct, [facility] [address], [place] [address] August, [facility] [id number], [place] [address] August, [facility] [id number] [place] [address] 03236- 1213 Jul, [facility] [id number] [place] [address] 21922- 7113 Jul, Primary osteoarthritis of left knee M17.12 [facility] [id number] [place] [address] 89129- 0539 Jul, Schizoaffective disorder, bipolar type F25.0 and 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 [facility] [id number] [place] [address] 73574- 0514 Jul, Prediabetes R73.03 ; Primary osteoarthritis of left knee M17.12 ; GERD (gastroesophageal reflux disease) K21.9 ; Bipolar 1 disorder F31.9 ; Depression F32.9 ; Environmental allergies Z91.09 ; Neuropathy G62.9 ; Edema R60.9 ; Body mass index (BMI) of 45.0-49.9 in adult Z68.42 and Morbid ( severe) obesity due to excess calories E66.01 [place] [id number] [place] [address] 76296- 7917 Jul, [place] [id number] [place] [address] 92797- 6432 Jun, [place] [id number] [place] [address] 94049- 7071 Jun, [place] [id number] [place] [address] 96737- 8508 Jun, Wound of right breast, initial encounter S21.001A and Prediabetes R73.03 [place] [id number] [place] [address] 66266- 5798 Jun, [place] [id number] [place] [address] 03643- 7607 May, GERD (gastroesophageal reflux disease) K21.9 [place] [id number] [place] [address] 43931- 3836 May, Primary osteoarthritis of left knee M17.12 [id number] [place] [address] 91689- 7647 22 May, 2017 Schizoaffective disorder, bipolar type F25.0 and 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 [place] [id number] [place] [address] 62008- 2263 04 May, 2017 Left medial knee pain M25.562 ; GERD (gastroesophageal reflux disease) K21.9 ; Depression F32.9 ; Neuropathy G62.9 ; Obesity E66.9 ; Prediabetes R73.03 and Edema R60.9 [place] [id number] [place] [address] 56429- 2758 14 Mar, 2017 [place] [id number] [place] [address] 53826- 7009 08 Mar, 2017 [place] [id number] [place] [address] 82149- 3894 05 Mar, 2017 Post-menopausal bleeding N95.0 and BMI 50.0-59.9, adult Z68.43 [place] [id number] [place] [address] 91118- 7938 Mar, [place] [id number] [place] [address] 54804- 6149 27 Mar, 2017 Schizoaffective disorder, bipolar type F25.0 and 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 [place] [id number] [place] [address] 86941- 9100 27 Mar, 2017 [place] [id number] [place] [address] 03434- 1112 16 Mar, 2017 [place] [id number] [place] [address] 54324- 7228 10 Mar, 2017 Post-menopausal bleeding N95.0 ; Screening breast examination Z12.31 ; Screen for STD (sexually transmitted disease) Z11.3 ; Obesity E66.9 ; Family history of ovarian cancer Z80.41 and Family history of cervical cancer Z80.49 [facility] [address], [place] [address] 8105 Mar, [facility] [id number] [place] [address] 99522- 6714 Mar, [facility] [id number] [place] [address] 33956- 7385 Jan, Schizoaffective disorder, bipolar type F25.0 and 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 [facility] [id number] [place] [address] 68037- 7259 Jan, Schizoaffective disorder, bipolar type F25.0 [facility] [id number] [place] [address] 56973- 0663 Jan, [facility] [id number] [place] [address] 07484- 1828 Jan, Prediabetes R73.03 and Obesity E66.9 [facility] [id number] [place] [address] 85152- 8428 Jan, Encounter for immunization Z23 [facility] [id number] [place] [address] 77293- 6252 Jan, [facility] [id number] [place] [address] 50568- 2406 Dec, [facility] [id number] [place] [address] 48368- 1372 Dec, [facility] [id number] [place] [address] 38076- 1231 Nov, Neuropathy G62.9 [facility] [id number] [place] [address] 12008- 7317 Nov, [facility] [id number] [place] [address] 62148- 1987 Nov, Schizoaffective disorder, bipolar type F25.0 [facility] [id number] [place] [address] 94285- 5391 Nov, Other longterm (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 Z79.899 and Schizoaffective disorder, bipolar type F25.0 [facility] [id number] [place] [address] 21464- 6856 Oct, Schizoaffective disorder, bipolar type F25.0 ; 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 and 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 [facility] [id number] [place] [address] [id number] Oct, Dental caries K02.9 [facility] [address] 64766- 4176 Sep, Neuropathy G62.9 [facility] [address] 37216- 6143 Sep, [facility] [address] 30487- 7588 Sep, Neuropathy G62.9 [facility] [id number] [place] [address] 90318- 6319 Jul, Schizoaffective disorder, depressive type F25.1 [facility] [address] 48079- 3524 Jul, GERD (gastroesophageal reflux disease) K21.9 ; Joint pain of lower extremity M25.50 ; Environmental allergies Z91.09 ; Stress incontinence of urine N39.3 ; Neuropathy G62.9 ; Edema R60.9 and Acute pain of left knee M25.562 [facility] [id number] [place] [address] 38108- 4038 Jun, [facility] [id number] [place] [address] [id number] Jun, Dental examination Z01.20 [facility] [id number] [place] [address] 89266- 1895 Jun, [facility] [id number] [address]- 3730 May, [facility] [address] 82109- 6922 May, Bipolar 1 disorder F31.9 ; Joint pain of lower extremity M25.50 ; Environmental allergies Z91.09 ; Stress incontinence of urine N39.3 ; Major depressive disorder, single episode, unspecified F32.9 ; Dizzy R42 ; Schizoaffective disorder, unspecified F25.9 ; Neuropathy G62.9 ; Localized edema R60.0 and GERD (gastroesophageal reflux disease) K21.9 [place] [address] 40557- 8470 May, Schizoaffective disorder, depressive type F25.1 [place] [address] 36587- 2160 May, Environmental allergies Z91.09 and Major depressive disorder , single episode, unspecified F32.9 [place] [id number] [place] [address] 14832- 6720 Mar, Dental caries K02.9 [place] [address] 91220- 9933 Mar, Dental caries on smooth surface penetrating into pulp K02.63 [facility] [id number] [place] [address] 59342 -8409 Mar, Peripheral edema R60.9 and Dry skin L85.3 [place] [id number] [place] [address] 20023- 1208 Mar, [place] [address] 64206- 8420 Mar, Major depressive disorder, single episode, unspecified F32.9 [place] [id number] [place] [address] 47398- 4584 Mar, Dental caries K02.9 [place] [address] 33385- 0852 07 Mar, 2016 Diabetes mellitus with complication E11.8 ; Urinary frequency R35.0 ; Stress incontinence of urine N39.3 ; Joint pain of lower extremity M25.50 ; Obesity E66.9 ; Environmental allergies Z91.09 ; Depression F32.9 ; Schizoaffective disorder, unspecified F25.9 ; Vaginal discharge N89.8 and Vaginal candidiasis B37.3 [place] [id number] [place] [address] 81130- 0814 Jan, Schizoaffective disorder, unspecified F25.9 [place] [address] 80733- 3800 17 Jan, 2016 [place] [address] 68020- 9857 30 Dec, 2015 [place] [id number] [place] [address] 28233- 6488 19 Dec, 2015 Dental caries K02.9 [place] [id number] [place] [address] 53534- 9086 14 Dec, 2015 Obesity E66.9 ; Edema R60.9 ; Depression F32.9 ; Bipolar 1 disorder F31.9 ; 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 ; Environmental allergies Z91.09 ; Shortness of breath R06.02 ; Gastroesophageal reflux disease with esophagitis K21.0 ; Other chronic pain G89.29 ; Pain in right knee M25.561 ; Pain in left knee M25.562 and Encounter for immunization Z23 [place] [id number] [place] [address] 49612- 9069 Nov, Dental caries K02.9 [place] [id number] [place] [address] 30472- 1183 Oct, Schizoaffective disorder, unspecified F25.9 [place] [id number] [place] [address] 01530- 8956 12 Oct, 2015 Dental examination Z01.20 [place] [id number] [place] [address] 55525- 7990 Sep, Dental examination Z01.20 and Dental caries K02.9 [facility] [address] 75682- 1340 Sep, [facility] [id number] [place] [address] 00185- 5679 Sep, [facility] [address] 67349- 3927 Sep, [facility] [address] 81370- 2125 Sep, Schizoaffective disorder, unspecified F25.9 [place] [address] 65666- 9915 August, Bipolar disorder, unspecified F31.9 [place] [address] 50950- 7194 Jul, Edema R60.9 and Obesity E66.9 [place] [id number] [place] [address] 69707- 5837 Jul, Edema R60.9 [place] [address] 49674- 0831 Jul, Edema R60.9 [facility] [id number] [place] [address] 30802 -2604 Jul, Edema R60.9 [facility] [id number] [place] [address] 85131- 8718 Jul, [place] [id number] [place] [address] 91446- 2484 Jul, [facility] [id number] [place] [address] 32331- 2208 24 Jun, 2015 Environmental allergies V15.09 and Cough R05 [place] [address] 32950- 4737 17 Jun, 2015 Environmental allergies V15.09 ; Edema R60.9 and Cough R05 [facility] [id number] [place] [address] 96623 -4998 12 Jun, 2015 Bronchospasm J98.01 [facility] [id number] [place] [address] 18388- 1225 10 Jun, 2015 [place] [address] 13375- 4511 09 Jun, 2015 [place] [address] 92407- 5458 08 Jun, 2015 Environmental allergies V15.09 ; Bipolar 1 disorder F31.9 ; GERD (gastroesophageal reflux disease) K21.9 ; Depression F32.9 ; Joint pain of lower extremity M25.50 ; COPD (chronic obstructive pulmonary disease) J44.9 and Screening for diabetes mellitus Z13.1 [place] [id number] [place] [address] 40493- 7063 16 Jun, 2015 [place] [id number] [place] [address] 90453- 3934 May, [place] [address] 04240- 4043 14 May, 2015 Schizoaffective disorder, unspecified F25.9 and Bipolar 1 disorder F31.9 [place] [id number] [place] [address] 66656- 0256 May, [place] [address] 70720- 3700 12 May, 2015 URI (upper respiratory infection) J06.9 ; Environmental allergies V15.09 and Cough R05 [place] [id number] [place] [address] 93183- 8919 18 Mar, 2015 [place] [id number] [place] [address] 05999- 7847 Mar, Vaginal discharge N89.8 [place] [id number] [place] [address] 87400- 8495 Mar, Schizoaffective disorder, unspecified F25.9 ; Major depressive disorder, single episode, unspecified F32.9 and Bipolar 1 disorder F31.9 [place] [id number] [place] [address] 06694- 1463 Mar, [place] [address] 61940- 0765 Mar, Bipolar 1 disorder F31.9 [address] [address] 86651- 8883 Jan, [place] [address] 68150- 5246 Jan, Allergic rhinitis J30.9 and Cough R05 [place] [address] 87083- 4073 Jan, 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 ; Bipolar 1 disorder F31.9 ; GERD ( gastroesophageal reflux disease) K21.9 ; Depression F32.9 and Joint pain of lower extremity M25.50 [place] [address] 51914- 9848 28 Dec, 2014 Encounter for immunization Z23 [place] [id number] [place] [address] 20852- 1957 02 Dec, 2014 Schizoaffective disorder, unspecified 295.70 ; Pain in joint , lower leg 719.46 ; Esophageal reflux 530.81 ; Bipolar 1 disorder 296.7 ; Depression 311 ; GERD (gastroesophageal reflux disease) 530.81 and Environmental allergies V15.09 [facility] [id number] [place] [address] [id number] Nov, Dental examination V72.2 [place] [id number] [place] [address] 28245- 0643 Nov, Acute bronchitis 466.0 [address] [address] 39103- 9807 Nov, Schizoaffective disorder, unspecified 295.70 and Bipolar disorder, unspecified 296.80 [facility] [address] [address] Sep, Dental examination V72.2 [facility] [address] [id number] August, Dental examination V72.2 [facility] [id number] [place] [address] 38060 2546 August, Schizoaffective disorder, unspecified 295.70 [facility] [id number] [place] [address] 42153 2546 August, [facility] [id number] [place] [address] 64944- 2546 August, Vomiting 787.03 [facility] [id number] [place] [address] 50827 2546 August, Vomiting and diarrhea 787.03 and High risk medication use V58.69 [facility] [id number] [place] [address] 64123- 6946 Jul, [facility] [id number] [place] [address] 96566- 1356 Jul, [facility] [address], [place] [address]- 0976 Jul, [facility] [address] [place] [address] 47640 2546 Jun, [facility] [id number] [address] 2546 Jun, [facility] [id number] [place] [address] 10897- 2546 Jun, [facility] [address] [address]- 2546 Jun, [facility] [id number] [place] [address], [place] [address]- 5240 16 Jun, 2014 [facility] [place] [facility] [address] [id number] [place] [address]- 6146 13 Jun, 2014 [facility] [place] [facility] [address] [id number] [place] [address]- 0476 13 Jun, 2014 [facility] [place] [facility] [address] [id number] [place] [address]- 1756 12 Jun, 2014 [facility] [place] [facility] [address] [id number] [place] [address]- 8899 Jun, 2014 [facility] [place] [facility] [address] [id number] [place] 8144 Mar, [facility] [place] [facility] [address] [facility] [id number] [place] [address]- 0715 Mar, [facility] [place] [facility] [address] [facility] [id number] [place] [address]- 4809 Mar, [facility] [place] [facility] [address] [facility] [id number] [place] [address]- 8993 Mar, [facility] [place] [facility] [address] [facility] [id number] [place] [address]- 7826 Mar, [facility] [place] [facility] [address] [facility] [id number] [place] [address]- 1259 Mar, [facility] [place] [facility] [address] [facility] [id number] [place] [address]- 5095 Mar, [facility] [place] [facility] [address] [facility] [id number] [place] [address]- 5499 Mar, [facility] [place] [facility] [address] [facility] [id number] [place] [address]- 9238 Mar, [facility] [place] [facility] [address] [facility] [id number] [place] [address]- 2546 Mar, [facility] [place] [facility] [address] [facility] [id number] [place] [address]- 3558 Jan, [facility] [place] [facility] [address] [id number] [place] [address]- 1005 Jan, [facility] [place] [facility] [address] [id number] [place] [address]- 9895 Jan, [facility] [place] [facility] [address] [id number] [place] [address]- 3096 Jan, [facility] [place] [facility] [address] [id number] [place] [address]- 5237 Jan, [facility] [place] [facility] [address] [id number] [place] [address]- 9056 Jan, [facility] [place] [facility] [address] [id number] [place] [address]- 6560 Jan, [facility] [place] [facility] [address] [id number] [place] [address]- 7933 Jan, [facility] [place] [facility] [address] [id number] [address]- 9248 19 Dec, 2013 [facility] [place] [facility] [address] [id number] [place] [address]- 3794 19 Dec, 2013 [facility] [place] [facility] [address] [id number] [address]- 4960 15 Dec, 2013 [facility] [place] [facility] [address] [id number] [address]- 9014 15 Dec, 2013 [facility] [place] [facility] [address] [id number] [address]- 7434 15 Dec, 2013 [facility] [place] [facility] [address] [id number] [address]- 6219 15 Dec, 2013 [facility] [place] [facility] [address] [id number] [address]- 4631 12 Dec, 2013 [facility] [place] [facility] [address] [id number] [address]- 1170 12 Dec, 2013 [facility] [place] [facility] [address] [id number] [address]- 8327 Dec, [facility] [place] [facility] [address] [id number] [place] [address]- 2647 Dec, [facility] [place] [facility] [address] [id number] [place] [address]- 9167 Nov, [facility] [place] [facility] [address] [id number] [place] [address]- 4402 Nov, [facility] [place] [facility] [address] [id number] [place] [address]- 2426 Nov, [facility] [place] [facility] [address] [id number] [place] [address]- 1152 Nov, [facility] [place] [facility] [address] [id number] [place] [address]- 2997 Oct, [facility] [place] [facility] [address] [id number] [place] [address]- 1395 Oct, [facility] [place] [facility] [address] [id number] [place] [address]- 3267 Oct, [facility] [place] [facility] [address] [id number] [place] [address]- 0582 Oct, [facility] [place] [facility] [address] [id number] [place] [address] Sep, [facility] [place] [facility] [address] [id number] [place] [address] Sep, [facility] [place] [facility] [address] [id number] [place] [address] Sep, [facility] [place] [facility] [address] [id number] [place] [address] Sep, [facility] [place] [facility] [address] [id number] [place] [address] Sep, [facility] [place] [facility] [address] [id number] [place] [address] Sep, [facility] [place] [facility] [address] [id number] [place] [address] Sep, [facility] [place] [facility] [address] [id number] [place] [address] Sep, [facility] [place] [facility] [address] [id number] [place] [address] August, [facility] [place] [facility] [address] [id number] [place] [address] August, [facility] [place] [facility] [address] [id number] [place] [address] Jul, [facility] [place] [facility] [address] [id number] [place] [address] Jul, [facility] [place] [facility] [address] [id number] [place] [address] Jul, [facility] [place] [facility] [address] [id number] [place] [address] Jul, [facility] [place] [facility] [address] [id number] [place] [address] Jul, [facility] [place] [facility] [address] [id number] [place] [address] Jul, [facility] [place] [facility] [address] [id number] [place] [address] Jul, [facility] [place] [facility] [address] [id number] [place] [address]- [address] Jul, [facility] [place] [facility] [address] [id number] [place] [address] Jul, [facility] [place] [facility] [address] [id number] [place] [address] Jul, [facility] [place] [facility] [address] [id number] [place] [address] Jun, [facility] [place] [facility] [address] [id number] [place] [address]- [address] 27 Jun, 2013 [facility] [place] [facility] [address] [id number] [place] [address]- [address] 18 Jun, 2013 [facility] [place] [facility] [address] [id number] [place] [address] 18 Jun, 2013 [facility] [place] [facility] [address] [id number] [place] [address]- [address] 17 Jun, 2013 [facility] [place] [facility] [address] [id number] [place] [address]- [address] 17 Jun, 2013 [facility] [place] [facility] [address] [id number] [place] [address]- [address] 17 Jun, 2013 [facility] [place] [facility] [address] [id number] [place] [address] 17 Jun, 2013 [facility] [place] [facility] [address] [id number] [place] [address] 14 Jun, 2013 [facility] [place] [facility] [address] [id number] [place] [address] 14 Jun, 2013 [facility] [place] [facility] [address] [id number] [place] [address] 07 Jun, 2013 [facility] [place] [facility] [address] [id number] [place] [address] Jun, [facility] [place] [facility] [address] [id number] [place] [address] 5166 Jun, [facility] [place] [facility] [address] [id number] [place] [address] Jun, [facility] [place] [facility] [address] [id number] [place] [address] Jun, [facility] [place] [facility] [address] [id number] [place] [address] Jun, [facility] [place] [facility] [address] [id number] [place] [address] May, [facility] [place] [facility] [address] [id number] [place] [address] May, [facility] [address] [id number] [place] [address] May, [facility] [address] [id number] [place] [address] 6[address] May, [facility] [address] [id number] [place] [address] 164[address] Mar, [facility] [address] [id number] [place] [address] Mar, [facility] [address] [id number] [place] [address] Mar, [facility] [address] [id number] [place] [address] 385[address] Mar, [facility] [address] [id number] [place] [address] 4[address] Mar, [facility] [address] [id number] [place] [address] Mar, [facility] [address] [id number] [place] [address] 1635 Mar, [facility] [address] [id number] [place] [address] Mar, [facility] [address] [id number] [place] [address] 9[address] Jan, [facility] [address] [id number] [place] [address] 57[address] Jan, [facility] [place] [facility] [address] [id number] [place] [address] 5296 18 Jan, 2013 [facility] [place] [facility] [address] [id number] [place] [address] 1797 Jan, [facility] [address] [id number] [place] [address] 2408 Jan, [facility] [address] [id number] [place] [address] 9852 Jan, [facility] [place] [facility] [address] [id number] [place] [address] Jan, [facility] [place] [facility] [address] [id number] [place] [address] 8415 Dec, [facility] [place] [facility] [address] [id number] [place] [address] 7[address] Nov, [facility] [place] [facility] [address] [id number] [place] [address] 66[address] Oct, [facility] [place] [facility] [address] [id number] [place] [address] 9576 Oct, [facility] [place] [facility] [address] [id number] [place] [address] 7784 Sep, [facility] [place] [facility] [address] [id number] [place] [address] 3533 Sep, [facility] [place] [facility] [address] [id number] [place] [address] 7143 Sep, [facility] [place] [facility] [address] [id number] [address] August, [facility] [place] [facility] [address] [id number] [place] [address] 5766 Jun, [facility] [place] [facility] [address] [id number] [address] Jun, [facility] [place] [facility] [address] [id number] [place] [address] 8027 Jun, [facility] [place] [facility] [address] [id number] [place] [address]- 7[address] Jun, [facility] [place] [facility] [address] [id number] [place] [address] 6916 Jun, [facility] [place] [facility] [address] [id number] [place] [address] 7913 12 Jun, 2012 [facility] [address] [id number] [place] [address] 4368 07 Jun, 2012 [facility] [address] [id number] [place] [address] 0693 May, [facility] [address] [id number] [place] [address] 5217 May, [facility] [address] [id number] [place] [address] 1991 May, [facility] [address] [id number] [place] [address] 3810 May, [facility] [address] [id number] [place] [address] 2060 May, [facility] [address] [id number] [place] [address] 8703 May, [facility] [address] [id number] [place] [address] 0477 May, [facility] [address] [id number] [place] [address] 0850 Mar, [facility] [address] [id number] [place] [address] 9167 Mar, [facility] [address] [id number] [place] [address] 1901 Mar, [facility] [address] [id number] [place] [address]- 9841 Mar, [facility] [address] [id number] [place] [address]- 3188 Mar, [facility] [address] [id number] [place] [address] 4136 Mar, [facility] [address] [id number] [place] [address] 1310 Mar, [facility] [place] [facility] [address] [id number] [place] [address]- 9384 Mar, [facility] [place] [facility] [address] [id number] [place] [address]- 9383 Mar, [facility] [place] [facility] [address] [id number] [place] [address]- 9168 Mar, [facility] [place] [facility] [address] [id number] [place] [address], [place] [address]- 1806 Mar, [facility] [place] [facility] [address] [id number] [place] [address]- 6728 Mar, [facility] [place] [facility] [address] [id number] [place] [address]- 4092 Mar, [facility] [place] [facility] [address] [id number] [place] [address]- 4784 Mar, [facility] [place] [facility] [address] [id number] [place] [address]- 7492 Mar, [facility] [place] [facility] [address] [id number] [place] [address]- 0993 Mar, [facility] [place] [facility] [address] [id number] [place] [address]- 6592 Mar, [facility] [place] [facility] [address] [id number] [place] [address]- 7065 Mar, [facility] [place] [facility] [address] [id number] [address] 1715 Mar, [facility] [place] [facility] [address] [id number] [place] [address]- 7202 Jan, [facility] [place] [facility] [address] [id number] [place] [address]- 4229 Jan, [facility] [place] [facility] [address] [id number] [place] [address]- 0648 Jan, [facility] [place] [facility] [address] [id number] [address] 3[address] Jan, [facility] [address] [address] Dec, [facility] [address], [place] [address] 8538 Dec, [facility] [address], [place] [address] 4714 Dec, [facility] [address], [place] [address] 1811 Nov, [facility] [address] [address] [address] Nov, [facility] [id number] [place] [address] Oct, [facility] [address] Oct, [facility] [address], [place] [address] 5694 Oct, [facility] [address]65[address], [place] [address] 7833 Oct, [facility] [address], [place] [address]- 45[address] Oct, [facility] [address] [id number], [place] [address] 8[address] Oct, IMMUNIZATIONS No Known Immunizations SOCIAL HISTORY Never Assessed REASON FOR VISIT eye exam PLAN OF CARE VITAL SIGNS MEDICATIONS Unknown [...]
--- OUTSIDE RECORDS SUMMARY | 2018-05-15 07:00 | XMS REPORT ---
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 Active 269922035 Problem Major depressive disorder, single episode, unspecified F32.9 Active 47712051 Problem Stress incontinence of urine N39.3 Active 23183743 Problem Acute pain of left knee M25.562 Active 49366728 Problem Neuropathy G62.9 Active 243913397 Problem Joint pain of lower extremity M25.50 Active 92664542 Problem 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 911815111 Problem PVD (peripheral vascular disease) I73.9 Active 024528857 Problem GERD (gastroesophageal reflux disease) K21.9 Active 029079868 Problem Edema R60.9 Active 951737436 Problem Bipolar 1 disorder F31.9 Active 435629081 Problem Cough R05 Active 11342872 Problem Depression F32.9 Active 04050785 Problem Obesity E66.9 Active 560460453 ALLERGIES Substance Reaction Event Type Date Status Sulfamethoxazole-Trimethoprim Unknown Drug Allergy Mar, Active Penicillin V Potassium rash Drug Allergy Mar, Active SOCIAL HISTORY No smoking Hx information available PLAN OF CARE Activity Details Follow Up 1 Week Reason:te VITAL SIGNS Height 63 in 2016-03-09 Blood pressure systolic 112 mmHg 2016-03-09 Blood pressure diastolic 78 mmHg 2016-03-09 MEDICATIONS Medication Instructions Dosage Frequency Start Date End Date Duration Status Hydrochlorothiazide 50 mg Orally Once a day [...] spray in each nostril 24h Sep, Active Protonix 20 MG Orally Once a day 1 tablet 24h 30 Active Meloxicam 7.5 MG Orally 2 times a day 1 tablet 12h 30 Active Citalopram Hydrobromide 40 mg Orally Once a day 1 tablet 24h Active Albuterol Sulfate 0.63 MG/3ML Inhalation every 4 hrs 3 ml as needed 4h Jun, Active Risperdal 1 MG TAKE ONE TABLET BY MOUTH TWICE DAILY Active Diflucan 150 MG Orally Once a day 1 tablet 24h Mar, Mar, 3 days Active RESULTS No Results PROCEDURES Procedure Date Ordered Related Diagnosis Body Site EXTRAC ERUPTED TOOTH/EXPOSED ROOT Mar 09, 2016 EXTRAC ERUPTED TOOTH/EXPOSED ROOT Mar 09, 2016 IMMUNIZATIONS No Known Immunizations
--- OUTSIDE RECORDS SUMMARY | 2018-05-15 07:00 | XMS REPORT ---
Author NIYAH Baumann [facility] eClinicalWorks Address Unknown Phone Unavailable Care Team Providers Care Aircraft Time Clerk Name Role Phone NIYAH RODRÍGUEZ CP Unavailable Allergies, Adverse Reactions, Alerts Substance Reaction Event Type Sulfamethoxazole-Trimethoprim Info Not Available Drug Allergy Penicillin V Potassium rash Drug Allergy Problems Problem Type Condition Code Onset Dates Condition Status Problem Depression F32.9 Active Assessment Vaginal candidiasis B37.3 Active Problem GERD (gastroesophageal reflux disease) K21.9 Active Assessment Vaginal discharge N89.8 Active Problem Bipolar 1 disorder F31.9 Active Problem Edema R60.9 Active Problem Cough R05 Active Problem Schizoaffective disorder, unspecified F25.9 Active Problem Urinary frequency R35.0 Active Assessment Environmental allergies Z91.09 Active Assessment Depression F32.9 Active Problem Diabetes mellitus with complication E11.8 Active Assessment Schizoaffective disorder, unspecified F25.9 Active Problem Shortness of breath R06.02 Active Problem Obesity E66.9 Active Problem Stress incontinence of urine N39.3 Active Problem Environmental allergies Z91.09 Active Assessment Stress incontinence of urine N39.3 Active Assessment Urinary frequency R35.0 Active Assessment Obesity E66.9 Active Assessment Joint pain of lower extremity M25.50 Active Problem 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 Active Problem 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 Assessment Diabetes mellitus with complication E11.8 Active Problem Joint pain of lower extremity M25.50 Active Medications Medication Code System Code Instructions Start Date End Date Status Dosage Hydrochlorothiazide [facility] [address]-27 50 mg Orally Once a day 1 tablet Meloxicam [facility] 12047117968 7.5 MG Orally 2 times a day 1 tablet Protonix [facility] 87867695789 20 MG Orally Once a day 1 tablet Risperdal [facility] 63929146357 1 MG Orally TAKE ONE TABLET BY MOUTH TWICE DAILY Albuterol Sulfate [facility] [address]-50 0.63 MG/3ML Inhalation every 4 hrs July 11, 2015 3 ml as needed Citalopram Hydrobromide [facility] [address]-72 40 mg Orally Once a day 1 tablet Lamotrigine [facility] 13267177293 100 MG Orally Once a day 1 tablet Flonase [facility] [address]-20 50 MCG/ACT Nasally Once a day October 06, 2015 1 spray in each nostril Diflucan [facility] [address]-76 150 MG Orally Once a day Mar 07, 2016 Mar 10, 2016 1 tablet Albuterol Sulfate HFA [facility] [address]-41 108 (90 Base) MCG/ACT Inhalation every 4 hrs May 12, 2015 2 puffs as needed ZyrTEC [facility] 35031672374 10 mg orally Once a day 1 tablet by Oral route 1 time per day Procedures Procedure Coding System Code Date VENIPUNCT, ROUTINE* CPT-4 24925 Mar 07, 2016 Office Visit, Est Pt., Level 4 CPT-4 96727 Mar 07, 2016 COMPLETE CBC W/AUTO DIFF WBC CPT-4 80046 Mar 07, 2016 COMPREHEN METABOLIC PANEL CPT-4 64998 Mar 07, 2016 GLYCATED HEMOGLOBIN TEST CPT-4 47824 Mar 07, 2016 MERCADO VAG, DNA, DIR PROBE CPT-4 31937 Mar 07, 2016 TRICHOMONAS ASSAY W/OPTIC CPT-4 51901 Mar 07, 2016 CULTURE, BACTERIA, OTHER CPT-4 22630 Mar 07, 2016 URINALYSIS, AUTO, W/O SCOPE CPT-4 10941 Mar 07, 2016 LIPID PANEL CPT-4 28527 Mar 07, 2016 No Charge CPT-4 92088 Mar 07, 2016 SPECIMEN HANDLING CPT-4 26320 Mar 07, 2016 Vital Signs Date/Time: Mar 07, 2016 Cardiac Monitoring Heart Rate 80 bpm Weight 277.9 lbs Height 63 in BMI 49.22 Index Blood Pressure Diastolic 84 mmHg Blood Pressure Systolic 128 mmHg Results Name Result Date Reference Range Unit Abnormality Flag UA LONG DIP (IN HOUSE) ----pH 7.0 20160307 ----BLO Negative 20160307 ----Clarity cloudy 20160307 ----Color yellow 20160307 ----Exp date 20160307 ----Odor yes [id number] ----Lot # [id number] ----GLU Negative 20160307 ----DURAN Negative 20160307 ----WOJCIECH Negative 20160307 ----NIT Negative 20160307 ----KET Negative 20160307 ----Lot # [id number] ----SG 1.020 20160307 ----URO 2.0 20160307 ----Exp date 20160307 ----Protein Negative 20160307 BACTERIAL VAGINOSIS (IN HOUSE) ----Exp date 20160307 ----RESULTS negative 20160307 ----Lot # [id number] ----Control + 20160307 A1C (IN HOUSE) ----A1C IN HOUSE 5.6 20160307 4.3 - 5.6 % ----Previous A1c 5.5 20160307 ----Lot [id number] ----Exp date 20160307 TRICHOMONAS (IN HOUSE) ----Exp date 20160307 ----Control + 20160307 ----Lot # [id number] ----TRICHOMONAS negative [id number] ROUTINE VENIPUNCTURE Summary Purpose eClinicalWorks Submission
--- OUTSIDE RECORDS SUMMARY | 2018-05-15 07:00 | XMS REPORT ---
Author Author REGGIE BAEZA [facility] eClinicalWorks Address Unknown Phone Unavailable Care Team Providers Care Liner Machine Operator Helper Name Role Phone REGGIE BAEZA CP Unavailable Allergies, Adverse Reactions, Alerts Substance Reaction Event Type Sulfamethoxazole rash Drug Allergy Penicillin V Potassium rash Drug Allergy Problems Problem Type Condition Code Onset Dates Condition Status Assessment Schizoaffective disorder, unspecified F25.9 Active Assessment Bipolar 1 disorder F31.9 Active Problem GERD (gastroesophageal reflux disease) K21.9 Active Problem Depression F32.9 Active Problem Bipolar 1 disorder F31.9 Active Problem Joint pain of lower extremity M25.50 Active Problem Environmental allergies V15.09 Active Problem 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 Problem 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 Active Medications Medication Code System Code Instructions Start Date End Date Status Dosage ZyrTEC NDC 0 10 mg orally Once a day July 15, 2014 1 tablet by Oral route 1 time per day Albuterol Sulfate HFA [facility] [address]-06 108 (90 Base) MCG/ACT Inhalation every 4 hrs May 12, 2015 2 puffs as needed Albuterol Sulfate [facility] [address]-68 90 mcg/actuation Jun 17, 2013 2 puffs by Inhalation route every 4 hours as needed cough or wheezing Protonix [facility] [address]-76 20 MG Orally Once a day Feb 20, 2015 1 tablet Benzonatate [facility] [address]-53 200 MG Orally Three times a day May 12, 2015 1 capsule as needed Meloxicam [facility] 30100107517 7.5 MG Orally 2 times a day 1 tablet Risperdal [facility] [address]-85 1 MG Orally TAKE ONE TABLET BY MOUTH TWICE DAILY Citalopram Hydrobromide [facility] [address]-96 40 MG Orally Once a day 1 tablet Flonase NDC 0 not defined Lamictal [facility] [address]-16 25 MG Orally Take one tab daily X2 weeks, then take one tab twice per day. Mar 13, 2015 1 tablet Procedures Procedure Coding System Code Date MH Office Visit, Est Pt., Level 3 CPT-4 17354 May 14, 2015 Vital Signs Date/Time: May 14, 2015 Blood Pressure Systolic 138 mmHg Weight 267.9 lbs Height 63 in BMI 47.45 Index Blood Pressure Diastolic 66 mmHg Results No Known Results Summary Purpose eClinicalWorks Submission
[2018-05-15] MEDS ORDERED: LACTATED RINGERS 1,000 ML IV STA (07:01)
--- OUTSIDE RECORDS SUMMARY | 2018-05-15 07:05 | XMS REPORT ---
Author Author REGGIE BAEZA Organization [employer] Address Unknown Phone Unavailable Care Team Providers Care Non Cdl Driver Name Role Phone REGGIE BAEZA CP Unavailable Allergies No Known Allergies Problems [...] Start Date End Date Status Dosage Lamictal [facility] [address]-83 25 MG Orally Twice a day Mar 13, [address] [facility] [address]-16 40 MG Orally Once a day [address] [facility] [address]-62 1 MG Orally TAKE ONE TABLET BY MOUTH TWICE DAILY Results No Known Results Summary Purpose eClinicalWorks Submission
--- OUTSIDE RECORDS SUMMARY | 2018-05-15 07:07 | XMS REPORT ---
Author NIYAH Baumann [facility] eClinicalWorks Address Unknown Phone Unavailable Care Team Providers Care Money Order Clerk Name Role Phone NIYAH RODRÍGUEZ CP Unavailable Allergies, Adverse Reactions, Alerts Substance Reaction Event Type Sulfamethoxazole rash Drug Allergy Penicillin V Potassium rash Drug Allergy Problems Problem Type Condition Code Onset Dates Condition Status Assessment Vaginal discharge N89.8 Active Problem GERD (gastroesophageal reflux disease) K21.9 Active Problem Depression F32.9 Active Problem Bipolar 1 disorder F31.9 Active Problem Joint pain of lower extremity M25.50 Active Problem Environmental allergies V15.09 Active Problem 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 Mar 13, 2015 1 tablet Meloxicam [facility] [address]-33 7.5 MG Orally 2 times a day 1 tablet Albuterol Sulfate [facility] [address]-42 90 mcg/actuation Jun 17, 2013 2 puffs by Inhalation route every 4 hours as needed cough or wheezing Flonase NDC 0 not defined Risperdal [facility] [address]-70 1 MG Orally TAKE ONE TABLET BY MOUTH TWICE DAILY Protonix [facility] [address]-19 20 MG Orally Once a day Feb 20, 2015 1 tablet Citalopram Hydrobromide [facility] [address]-05 40 MG Orally Once a day 1 tablet ZyrTEC ND 0 10 mg July 15, 2014 1 tablet by Oral route 1 time per day Procedures Procedure Coding System Code Date CULTURE, BACTERIA, OTHER CPT-4 54889 Apr 14, 2015 TRICHOMONAS VAGIN, DIR PROBE CPT-4 39921 Apr 14, 2015 SPECIMEN HANDLING CPT-4 43009 Apr 14, 2015 Office Visit, Est Pt., Level 4 CPT-4 82975 Apr 14, 2015 No Charge CPT-4 55308 Apr 14, 2015 Vital Signs Date/Time: Apr 14, 2015 Temperature 96.7 F Weight 262.8 lbs Height 63 in BMI 46.55 Index Blood Pressure Diastolic 70 mmHg Blood Pressure Systolic 120 mmHg Cardiac Monitoring Heart Rate 80 bpm Results Name Result Date Reference Range Unit Abnormality Flag TRICHOMONAS (IN HOUSE) ----TRICHOMONAS negative [id number] ----Control + [id number] ----Lot # [id number] ----Exp date [id number] Summary Purpose eClinicalWorks Submission
--- OUTSIDE RECORDS SUMMARY | 2018-05-15 07:09 | XMS REPORT ---
Author NIYAH Baumann Organization [employer] Address Unknown Phone Unavailable Care Team Providers Care Computer Aided Drafter Name Role Phone NIYAH RODRÍGUEZ CP Unavailable [...] K21.9 Active Problem Depression F32.9 Active Medications No Known Medications Results No Known Results Summary Purpose eClinicalWorks Submission
--- OUTSIDE RECORDS SUMMARY | 2018-05-15 07:09 | XMS REPORT ---
Author Author DANA SILVA [facility] [place] eClinicalWorks Address Unknown Phone Unavailable Care Team Providers Care Stonemason Name Role Phone DANA SILVA CP Unavailable Allergies, Adverse Reactions, Alerts Substance Reaction Event Type Sulfamethoxazole rash Drug Allergy Penicillin V Potassium rash Drug Allergy Problems Problem Type Condition ICD-9 Code Onset Dates Condition Status Assessment Acute bronchitis 466.0 Active Problem Premenopausal menorrhagia 627.0 Active Problem Other and unspecified ovarian cyst 620.2 Active Problem Need for prophylactic vaccination and inoculation, Influenza V04.81 Active Problem Personal history of allergy to other foods V15.05 Active Problem Acute sinusitis, unspecified 461.9 Active Problem Bipolar disorder, unspecified 296.80 Active Problem Pain in joint, lower leg 719.46 Active Problem Acute serous otitis media 381.01 Active Problem Other acute otitis externa 380.22 Active Problem Esophageal reflux 530.81 Active Problem Pain in joint, shoulder region 719.41 Active Problem Candidiasis of vulva and vagina 112.1 Active Problem Screening for malignant neoplasm of the cervix V76.2 Active Problem Vomiting 787.03 Active Problem Unspecified breast screening V76.10 Active Problem Unspecified gastritis and gastroduodenitis without mention of hemorrhage 535.50 Active Problem Schizoaffective disorder, unspecified 295.70 Active Problem Pain in soft tissues of limb 729.5 Active Problem Candidiasis of skin and nails 112.3 Active Problem Cough 786.2 Active Problem Unspecified disorder of skin and subcutaneous tissue 709.9 Active Problem Encounter for long-term (current) use of other medications V58.69 Active Problem Routine general medical examination at health care facility V70.0 Active Problem Dysphagia, unspecified 787.20 Active Problem Loss of weight 783.21 Active Problem Allergic rhinitis, cause unspecified 477.9 Active Problem Nausea with vomiting 787.01 Active Medications Medication Code System Code Instructions Start Date End Date Status Dosage PredniSONE [facility] [address]-59 50 MG Orally Once a day Dec 25, 2014 1 tablet with food or milk [place] Carbonate [facility] [address]-47 300 MG Orally twice per day July 25, 2014 3 capsule by Oral route 2 times per day Albuterol Sulfate [facility] [address]-61 90 mcg/actuation Jun 17, 2013 2 puffs by Inhalation route every 4 hours as needed cough or wheezing Protonix [facility] [address]-75 20 mg Feb 28, 2014 take 1 tablet (20 mg ) by oral route once daily Citalopram Hydrobromide [facility] [address]-90 40 MG Orally Once a day 1 tablet Risperdal [facility] [address]-84 1 MG Orally TAKE ONE TABLET BY MOUTH TWICE DAILY Flonase [facility] [address]-15 50 mcg/actuation August 29, 2013 1 sprays by Nasal route 2 times per day in each nostril Trazodone HCl [facility] [address]-76 50 MG Orally Once a day Dec 11, 2014 1 tablet at bedtime as needed ZyrTEC [facility] 0 10 mg July 15, 2014 1 tablet by Oral route 1 time per day Promethazine-Codeine [facility] [address]-44 6.25-10 MG/5ML Orally every 4 hr Dec 25, 2014 10 ml Procedures Procedure Coding System Code Date Office Visit, Est Pt., Level 2 CPT-4 51384 Dec 25, 2014 Vital Signs Date/Time: Dec 25, 2014 Temperature 98.0 F Weight 244 lbs Height 63 in BMI 43.22 Index Blood Pressure Diastolic 70 mmHg Blood Pressure Systolic 110 mmHg Cardiac Monitoring Heart Rate 80 bpm Results No Known Results Summary Purpose eClinicalWorks Submission
[2018-05-15] MEDS ORDERED: LACTATED RINGERS 1,000 ML IV ONE (07:11)
--- OUTSIDE RECORDS SUMMARY | 2018-05-15 07:14 | XMS REPORT ---
Author Author SAKINA MONIQUE [facility] Address [address] [place] [address] Care Team Providers Care Affirmative Action Officer Name Role Phone SAKINA, MONIQUE Unavailable PROBLEMS Type Condition ICD9-CM Code [id number] Code Onset Dates Condition Status SNOMED Code Problem Stress incontinence of urine N39.3 Active 73481423 Problem Neuropathy G62.9 Active 633768742 Problem Major depressive disorder, single episode, unspecified F32.9 Active 71872656 Problem Morbid (severe) obesity due to excess calories E66.01 Active 977173699 Problem Body mass index (BMI) of 45.0-49.9 in adult Z68.42 Active 239947034 Problem 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 Active 400781643 Problem Schizoaffective disorder, bipolar type F25.0 Active 56543540 Problem Primary osteoarthritis of left knee M17.12 Active 261264728 Problem Post-menopausal bleeding N95.0 Active 62229213 Problem Depression F32.9 Active 54110233 Problem Bipolar 1 disorder F31.9 Active 584424980 Problem Edema R60.9 Active 206122237 Problem GERD (gastroesophageal reflux disease) K21.9 Active 786054195 Problem Obesity E66.9 Active 612425252 Problem Joint pain of lower extremity M25.50 Active 32439569 Problem Environmental allergies Z91.09 Active 175643007 ALLERGIES No Information ENCOUNTERS Encounter Location Date Diagnosis [facility] [address] [facility] [id number] [address] Oct, [facility] [id number] [address] 8161 Jul, [facility] [address] 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 [place] [id number] [place] [address] 13760- 7216 Jul, Prediabetes R73.03 ; Primary osteoarthritis of left knee M17.12 ; GERD (gastroesophageal reflux disease) K21.9 ; Bipolar 1 disorder F31.9 ; Depression F32.9 ; Environmental allergies Z91.09 ; Neuropathy G62.9 ; Edema R60.9 ; Body mass index (BMI) of 45.0-49.9 in adult Z68.42 and Morbid ( severe) obesity due to excess calories E66.01 [place] [id number] [place] [address] 48232- 1158 Jul, [place] [address] 68786- 1347 Jun, [place] [address] 41916- 3671 Jun, [place] [address] 14934- 9470 Jun, Wound of right breast, initial encounter S21.001A and Prediabetes R73.03 [place] [address] 60174- 9568 Jun, [place] [id number] [place] [address] 94054- 1628 May, GERD (gastroesophageal reflux disease) K21.9 [place] [id number] [place] [address] 30128- 8162 May, Primary osteoarthritis of left knee M17.12 [place] [address] 91754- 4943 May, Schizoaffective disorder, bipolar type F25.0 and 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 [place] [id number] [place] [address] 21906- 4273 May, Left medial knee pain M25.562 ; GERD (gastroesophageal reflux disease) K21.9 ; Depression F32.9 ; Neuropathy G62.9 ; Obesity E66.9 ; Prediabetes R73.03 and Edema R60.9 [place] [id number] [place] [address] 43175- 9196 14 Mar, 2017 [place] [id number] [place] [address] 95403- 8511 08 Mar, 2017 [place] [address] 91088- 2528 Mar, Post-menopausal bleeding N95.0 and BMI 50.0-59.9, adult Z68.43 [place] [id number] [place] [address] 63693- 4437 Mar, [place] [id number] [place] [address] 01137- 7355 Mar, Schizoaffective disorder, bipolar type F25.0 and 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 [place] [id number] [place] [address] 14724- 3256 Mar, [place] [id number] [place] [address] 44145- 0090 Mar, [place] [id number] [place] [address] 30559- 5505 Mar, Post-menopausal bleeding N95.0 ; Screening breast examination Z12.31 ; Screen for STD (sexually transmitted disease) Z11.3 ; Obesity E66.9 ; Family history of ovarian cancer Z80.41 and Family history of cervical cancer Z80.49 [place] [id number] [place] [address] 96110- 8067 Mar, [place] [id number] [place] [address] 72483- 9772 Mar, [place] [id number] [place] [address] 37714- 4982 Jan, Schizoaffective disorder, bipolar type F25.0 and 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 [facility] [id number] [address]- 9981 Jan, Schizoaffective disorder, bipolar type F25.0 [facility] [id number] [place] [address] 29729- 9846 18 Jan, 2017 [facility] [id number] [place] [address] 78067- 8766 Jan, Prediabetes R73.03 and Obesity E66.9 [facility] [id number] [place] [address] 79344 2544 05 Jan, 2017 Encounter for immunization Z23 [facility] [id number] [place] [address] 72968- 3766 Jan, [facility] [id number] [place] [address] 42330- 7303 Dec, [facility] [id number] [place] [address] 36330- 3774 Dec, [facility] [id number] [place] [address] 96440- 7375 Nov, Neuropathy G62.9 [facility] [id number] [place] [address] 63514- 3070 Nov, [facility] [id number] [place] [address] 83742- 6987 Nov, Schizoaffective disorder, bipolar type F25.0 [facility] [id number] [address]- 9783 Nov, Other halfway (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 Z79.899 and Schizoaffective disorder, bipolar type F25.0 [facility] [id number] [place] [address] [id number]- 6713 Oct, Schizoaffective disorder, bipolar type F25.0 ; Other halfway (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 Z79.899 and 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 [place] [address] [id number] Oct, Dental caries K02.9 [facility] [id number] [place] [address] 08542- 5909 Sep, Neuropathy G62.9 [facility] [id number] [place] [address] 71651- 2158 Sep, [facility] [id number] [place] [address] 08837- 2711 Sep, Neuropathy G62.9 [place] [id number] [place] [address] 29068- 7632 Jul, Schizoaffective disorder, depressive type F25.1 [place] [id number] [place] [address] 71841- 9677 Jul, GERD (gastroesophageal reflux disease) K21.9 ; Joint pain of lower extremity M25.50 ; Environmental allergies Z91.09 ; Stress incontinence of urine N39.3 ; Neuropathy G62.9 ; Edema R60.9 and Acute pain of left knee M25.562 [facility] [id number] [place] [address] 81456- 4582 Jun, [facility] [id number] [place] [address] [id number] Jun, Dental examination Z01.20 [facility] [id number] [place] [address] 99897- 3189 Jun, [facility] [id number] [place] [address] 34901- 5543 May, [facility] [id number] [place] [address] 76259- 9637 May, Bipolar 1 disorder F31.9 ; Joint pain of lower extremity M25.50 ; Environmental allergies Z91.09 ; Stress incontinence of urine N39.3 ; Major depressive disorder, single episode, unspecified F32.9 ; Dizzy R42 ; Schizoaffective disorder, unspecified F25.9 ; Neuropathy G62.9 ; Localized edema R60.0 and GERD (gastroesophageal reflux disease) K21.9 [place] [address] 14819- 2628 May, Schizoaffective disorder, depressive type F25.1 [place] [address] 65022- 6205 May, Environmental allergies Z91.09 and Major depressive disorder , single episode, unspecified F32.9 [place] [address] 71488- 9976 Mar, Dental caries K02.9 [place] [address] 32444- 2510 Mar, Dental caries on smooth surface penetrating into pulp K02.63 [facility] [address] 06435 -5432 Mar, Peripheral edema R60.9 and Dry skin L85.3 [place] [address] 61655- 0122 Mar, [place] [address] 42184- 1430 30 Mar, 2016 Major depressive disorder, single episode, unspecified F32.9 [place] [address] 44233- 7550 Mar, Dental caries K02.9 [place] [address] 62679- 3738 07 Mar, 2016 Diabetes mellitus with complication E11.8 ; Urinary frequency R35.0 ; Stress incontinence of urine N39.3 ; Joint pain of lower extremity M25.50 ; Obesity E66.9 ; Environmental allergies Z91.09 ; Depression F32.9 ; Schizoaffective disorder, unspecified F25.9 ; Vaginal discharge N89.8 and Vaginal candidiasis B37.3 [place] [address] 13725- 3665 Jan, Schizoaffective disorder, unspecified F25.9 [place] [id number] [place] [address] 74814- 4271 17 Jan, 2016 [facility] [id number] [place] [address] 18345- 9089 30 Dec, 2015 [place] [id number] [place] [address] 51160- 0500 19 Dec, 2015 Dental caries K02.9 [place] [id number] [place] [address] 07793- 3610 14 Dec, 2015 Obesity E66.9 ; Edema R60.9 ; Depression F32.9 ; Bipolar 1 disorder F31.9 ; 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 ; Environmental allergies Z91.09 ; Shortness of breath R06.02 ; Gastroesophageal reflux disease with esophagitis K21.0 ; Other chronic pain G89.29 ; Pain in right knee M25.561 ; Pain in left knee M25.562 and Encounter for immunization Z23 [place] [id number] [place] [address] 78119- 1713 Nov, Dental caries K02.9 [place] [id number] [place] [address] 40719- 6092 Oct, Schizoaffective disorder, unspecified F25.9 [place] [id number] [place] [address] 96686- 4924 Oct, Dental examination Z01.20 [place] [id number] [place] [address] 44424- 5745 20 Sep, 2015 Dental examination Z01.20 and Dental caries K02.9 [place] [id number] [place] [address] 02600- 2775 13 Sep, 2015 [place] [id number] [place] [address] 47773- 6590 09 Sep, 2015 [place] [id number] [place] [address]- 9594 07 Sep, 2015 [facility] [id number] [place] [address] 34665- 8616 Sep, Schizoaffective disorder, unspecified F25.9 [facility] [id number] [place] [address] 65108- 7108 August, Bipolar disorder, unspecified F31.9 [facility] [id number] [place] [address] 65365- 6824 Jul, Edema R60.9 and Obesity E66.9 [place] [address] 43942- 5887 Jul, Edema R60.9 [facility] [id number] [place] [address] 87128- 7622 Jul, Edema R60.9 [facility] [address] 73149 -6894 Jul, Edema R60.9 [facility] [id number] [place] [address] 92955- 6261 Jul, [facility] [id number] [place] [address] 12492- 0265 Jul, [facility] [id number] [place] [address] 31122- 5005 24 Jun, 2015 Environmental allergies V15.09 and Cough R05 [facility] [id number] [place] [address] 56520- 6093 17 Jun, 2015 Environmental allergies V15.09 ; Edema R60.9 and Cough R05 [facility] [id number] [place] [address] 74265 -6072 12 Jun, 2015 Bronchospasm J98.01 [facility] [id number] [place] [address] 00176- 3872 10 Jun, 2015 [facility] [address] 82466- 0595 09 Jun, 2015 [place] [address] 55169- 4343 Jun, Environmental allergies V15.09 ; Bipolar 1 disorder F31.9 ; GERD (gastroesophageal reflux disease) K21.9 ; Depression F32.9 ; Joint pain of lower extremity M25.50 ; COPD (chronic obstructive pulmonary disease) J44.9 and Screening for diabetes mellitus Z13.1 [place] [address] 25347- 4803 16 Jun, 2015 [place] [address] 46650- 3271 May, [place] [address] 93045- 0000 May, Schizoaffective disorder, unspecified F25.9 and Bipolar 1 disorder F31.9 [place] [address] 69184- 1029 May, [place] [address] 25601- 8771 May, URI (upper respiratory infection) J06.9 ; Environmental allergies V15.09 and Cough R05 [place] [id number] [place] [address] 48059- 3546 Mar, [place] [address] 38794- 7192 15 Mar, 2015 Vaginal discharge N89.8 [place] [id number] [place] [address] 62866- 8931 14 Mar, 2015 Schizoaffective disorder, unspecified F25.9 ; Major depressive disorder, single episode, unspecified F32.9 and Bipolar 1 disorder F31.9 [place] [address] 60891- 3060 Mar, [place] [address] 73944- 6613 Mar, Bipolar 1 disorder F31.9 [place] [address] [place] [address] 39404- 1505 Jan, [place] [id number] [place] [address] 88514- 3617 Jan, Allergic rhinitis J30.9 and Cough R05 [place] [address] 46863- 6377 Jan, 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 ; Bipolar 1 disorder F31.9 ; GERD ( gastroesophageal reflux disease) K21.9 ; Depression F32.9 and Joint pain of lower extremity M25.50 [place] [id number] [place] [address] 39153- 5959 Dec, Encounter for immunization Z23 [place] [id number] [place] [address] 97185- 8719 Dec, Schizoaffective disorder, unspecified 295.70 ; Pain in joint , lower leg 719.46 ; Esophageal reflux 530.81 ; Bipolar 1 disorder 296.7 ; Depression 311 ; GERD (gastroesophageal reflux disease) 530.81 and Environmental allergies V15.09 [facility] [id number] [place] [address] [id number] Nov, Dental examination V72.2 [place] [address] [place] [address] 14313- 9861 Nov, Acute bronchitis 466.0 [place] [id number] [place] [address] 98232- 4767 Nov, Schizoaffective disorder, unspecified 295.70 and Bipolar disorder, unspecified 296.80 [facility] [id number] [place] [address] [id number] Sep, Dental examination V72.2 [facility] [address] [place] [address] [id number] August, Dental examination V72.2 [place] [id number] [address]- 2646 August, Schizoaffective disorder, unspecified 295.70 [facility] [id number] [place] [address] 73569- 6676 August, [facility] [id number] [place] [address] 74108- 2586 August, Vomiting 787.03 [facility] [id number] [place] [address] 49427- 2736 August, Vomiting and diarrhea 787.03 and High risk medication use V58.69 [facility] [id number] [place] [address] 08948- 9126 Jul, [facility] [id number] [place] [address] 98576- 3826 Jul, [facility] [id number] [place] [address] 39386- 7274 Jul, [facility] [id number] [place] [address] 65861- 4368 Jun, [facility] [id number] [place] [address] 04553874- 6240 Jun, [facility] [address] [address]- 3554 Jun, [facility] [address] [place] [address] 75408- 6276 Jun, [facility] [address] [address]- 6676 16 Jun, 2014 [facility] [id number] [place] [address] 82929- 8796 Jun, [facility] [address] [address]- 9966 Jun, [facility] [address] [place] [address] 40085- 4718 Jun, [facility] [place] [facility] [address] [id number] [place] [address]- 5522 Jun, [facility] [place] [facility] [address] [id number] [place] [address]- 8051 Mar, [facility] [place] [facility] [address] [id number] [place] 6537 Mar, [facility] [place] [facility] [address] [id number] [place] [address]- 3838 Mar, [facility] [place] [facility] [address] [id number] [place] [address]- 3193 Mar, [facility] [place] [facility] [address] [id number] [place] [address]- 7220 Mar, [facility] [place] [facility] [address] [id number] [place] [address]- 1028 Mar, [facility] [place] [facility] [address] [id number] [place] [address]- 2834 Mar, [facility] [place] [facility] [address] [id number] [place] [address]- 3111 Mar, [facility] [place] [facility] [address] [id number] [place] [address]- 1775 Mar, [facility] [place] [facility] [address] [id number] [address]- 3251 Mar, [facility] [place] [facility] [address] [id number] [address]- 5736 Jan, [facility] [place] [facility] [address] [id number] [place] [address]- 1892 Jan, [facility] [place] [facility] [address] [id number] [place] 8947 Jan, [facility] [place] [facility] [address] [id number] [place] 7778 Jan, [facility] [place] [facility] [address] [id number] [place] [address]- 3361 14 Jan, 2014 [facility] [place] [facility] [address] [id number] [place] [address]- 7592 14 Jan, 2014 [facility] [place] [facility] [address] [id number] [place] [address]- 4407 09 Jan, 2014 [facility] [place] [facility] [address] [id number] [place] [address]- 2812 09 Jan, 2014 [facility] [place] [facility] [address] [id number] [place] [address]- 0204 19 Dec, 2013 [facility] [place] [facility] [address] [id number] [place] [address]- 0654 19 Dec, 2013 [facility] [place] [facility] [address] [id number] [place] [address]- 8794 15 Dec, 2013 [facility] [place] [facility] [address] [id number] [place] [address]- 4352 15 Dec, 2013 [facility] [place] [facility] [address] [id number] [place] [address]- 1303 15 Dec, 2013 [facility] [place] [facility] [address] [id number] [place] [address]- 1219 15 Dec, 2013 [facility] [place] [facility] [address] [id number] [place] [address]- 9487 12 Dec, 2013 [facility] [place] [facility] [address] [id number] [place] [address]- 6842 12 Dec, 2013 [facility] [place] [facility] [address] [id number] [place] [address]- 2540 03 Dec, 2013 [facility] [place] [facility] [address] [id number] [place] [address] 2542 03 Dec, 2013 [facility] [place] [facility] [address] [id number] [place] [address]- 2064 Nov, [facility] [place] [facility] [address] [id number] [place] [address]- 1831 Nov, [facility] [place] [facility] [address] [id number] [place] [address]- 8521 Nov, [facility] [place] [facility] [address] [id number] [place] [address]- 0230 Nov, [facility] [place] [facility] [address] [id number] [place] [address]- 9589 Oct, [facility] [place] [facility] [address] [id number] [place] [address] Oct, [facility] [place] [facility] [address] [id number] [place] [address] Oct, [facility] [place] [facility] [address] [id number] [place] [address] Oct, [facility] [place] [facility] [address] [id number] [place] [address] Sep, [facility] [place] [facility] [address] [id number] [place] [address] Sep, [facility] [place] [facility] [address] [id number] [place] [address] Sep, [facility] [place] [facility] [address] [id number] [place] [address] Sep, [facility] [place] [facility] [address] [id number] [place] [address] Sep, [facility] [place] [facility] [address] [id number] [place] [address] Sep, [facility] [place] [facility] [address] [id number] [place] [address] Sep, [facility] [place] [facility] [address] [id number] [place] [address] Sep, [facility] [place] [facility] [address] [id number] [place] [address] August, [facility] [place] [facility] [address] [id number] [place] [address] August, [facility] [place] [facility] [address] [id number] [place] [address] Jul, [facility] [place] [facility] [address] [id number] [place] [address] Jul, [facility] [place] [facility] [address] [id number] [place] [address] Jul, [facility] [place] [facility] [address] [id number] [place] [address] Jul, [facility] [place] [facility] [address] [id number] [place] [address] Jul, [facility] [place] [facility] [address] [id number] [place] [address] Jul, [facility] [place] [facility] [address] [id number] [place] [address] Jul, [facility] [place] [facility] [address] [id number] [place] [address] Jul, [facility] [place] [facility] [address] [id number] [place] [address] Jul, [facility] [place] [facility] [address] [id number] [place] [address] Jul, [facility] [place] [facility] [address] [id number] [place] [address] Jun, [facility] [place] [facility] [address] [id number] [place] [address] Jun, [facility] [place] [facility] [address] [id number] [place] [address] Jun, [facility] [place] [facility] [address] [id number] [place] [address] Jun, [facility] [place] [facility] [address] [id number] [place] [address] 17 Jun, 2013 [facility] [place] [facility] [address] [id number] [place] [address]- [address] 17 Jun, 2013 [facility] [place] [facility] [address] [id number] [place] [address] 17 Jun, 2013 [facility] [place] [facility] [address] [id number] [place] [address] 17 Jun, 2013 [facility] [place] [facility] [address] [id number] [place] [address] 14 Jun, 2013 [facility] [place] [facility] [address] [id number] [place] [address] 14 Jun, 2013 [facility] [place] [facility] [address] [id number] [place] [address] Jun, [facility] [place] [facility] [address] [id number] [place] [address] Jun, [facility] [place] [facility] [address] [id number] [place] [address] Jun, [facility] [place] [facility] [address] [id number] [place] [address] Jun, [facility] [place] [facility] [address] [id number] [place] [address] Jun, [facility] [place] [facility] [address] [id number] [place] [address] Jun, [facility] [place] [facility] [address] [id number] [place] [address] May, [facility] [place] [facility] [address] [id number] [place] [address] May, [facility] [place] [facility] [address] [id number] [place] [address] 39[address] May, [facility] [place] [facility] [address] [id number] [place] [address] May, [facility] [place] [facility] [address] [id number] [place] [address] Mar, [facility] [address] [id number] [place] [address] Mar, [facility] [place] [facility] [address] [id number] [place] [address] Mar, [facility] [address] [id number] [place] [address]70 Mar, [facility] [place] [facility] [address] [id number] [place] [address]573 Mar, [facility] [address] [id number] [place] [address] Mar, [facility] [place] [facility] [address] [id number] [place] [address] 8090 Mar, [facility] [place] [facility] [address] [id number] [place] [address] Mar, [facility] [place] [facility] [address] [id number] [place] [address] Jan, [facility] [place] [facility] [address] [id number] [place] [address] Jan, [facility] [place] [facility] [address] [id number] [place] [address] Jan, [facility] [place] [facility] [address] [id number] [place] [address] Jan, [facility] [place] [facility] [address] [id number] [place] [address] Jan, [facility] [place] [facility] [address] [id number] [place] [address] Jan, [facility] [place] [facility] [address] [id number] [place] [address] Jan, [facility] [place] [facility] [address] [id number] [place] [address] Dec, [facility] [place] [facility] [address] [id number] [place] [address] Nov, [facility] [address] [id number] [place] [address] 8027 Oct, [facility] [place] [facility] [address] [id number] [place] [address]46 Oct, [facility] [address] [id number] [place] [address] Sep, [facility] [place] [facility] [address] [id number] [place] [address] 2543 Sep, [facility] [address] [id number] [place] [address] 5784 Sep, [facility] [place] [facility] [address] [id number] [place] [address]266 August, [facility] [address] [id number] [place] [address] 58[address] Jun, [facility] [address] [id number] [place] [address] 2725 Jun, [facility] [address] [id number] [place] [address]- 3[address] Jun, [facility] [address] [id number] [place] [address] 15 Jun, 2012 [facility] [place] [facility] [address] [id number] [place] [address] 2546 Jun, [facility] [address] [id number] [place] [address] 2545 Jun, [facility] [place] [facility] [address] [id number] [place] [address]6 Jun, [facility] [place] [facility] [address] [id number] [place] [address]- [address]46 May, [facility] [place] [facility] [address] [id number] [place] [address]- 2429 May, [facility] [address] [id number] [place] [address] 6367 May, [facility] [place] [facility] [address] [id number] [place] [address]- 8988 May, [facility] [address] [id number] [place] [address]- 5877 May, [facility] [place] [facility] [address] [id number] [place] [address]- 9987 May, [facility] [address] [id number] [place] [address]- 4570 May, [facility] [address] [id number] [place] [address]- 5465 Mar, [facility] [address] [id number] [place] [address]- 1469 Mar, [facility] [address] [id number] [place] [address]- 62[address] Mar, [facility] [place] [facility] [address] [id number] [place] [address] 0039 Mar, [facility] [place] [facility] [address] [id number] [place] [address]- 8616 Mar, [facility] [place] [facility] [address] [id number] [place] [address]- 9021 Mar, [facility] [place] [facility] [address] [id number] [place] [address] Mar, [facility] [place] [facility] [address] [id number] [place] [address]- 4459 Mar, [facility] [place] [facility] [address] [id number] [place] [address] 1893 Mar, [facility] [place] [facility] [address] [id number] [place] [address]- 1147 Mar, [facility] [place] [facility] [address] [id number] [place] [address]- 2364 Mar, [facility] [place] [facility] [address] [id number] [place] [address] 2970 Mar, [facility] [place] [facility] [address] [id number] [place] [address]- 2579 Mar, [facility] [place] [facility] [address] [id number] [place] [address]- 3305 Mar, [facility] [place] [facility] [address] [id number] [place] [address]- 6018 Mar, [facility] [place] [facility] [address] [id number] [place] [address]- 3859 Mar, [facility] [place] [facility] [address] [id number] [place] [address]- 7464 Mar, [facility] [place] [facility] [address] [facility] [id number] [place] [address]- 4361 Mar, [facility] [place] [facility] [address] [id number] [place] [address]- 2901 Mar, [facility] [place] [facility] [address] [id number] [place] [address]- 2447 Jan, [facility] [place] [facility] [address] [facility] [id number] [place] [address]- 0084 Jan, [facility] [place] [facility] [address] [id number] [place] [address]- 4392 Jan, [facility] [place] [facility] [address] [id number] [place] [address]- 0425 Jan, [facility] [place] [facility] [address] [id number] [place] [address]- 7270 Dec, [facility] [place] [facility] [address] [facility] [id number] [place] [address] 18 Dec, 2011 [facility] [place] [facility] [address] [facility] [id number] [place] [address]- [address]106 06 Dec, 2011 [facility] [place] [facility] [id number] [place] [address] Nov, [facility] [id number] [place] [address]- 7969 Nov, [facility] [id number] [place] [address]- 8164 Oct, [facility] [id number] [place] [address] Oct, [facility] [id number] [place] [address]- 2533 Oct, [facility] [id number] [place] [address] 160[address] Oct, [facility] [id number] [place] [address] Oct, [facility] [id number] [place] [address]- 5827 Oct, IMMUNIZATIONS No Known Immunizations SOCIAL HISTORY Never Assessed REASON FOR VISIT Paperwork PLAN OF CARE VITAL SIGNS MEDICATIONS Unknown [...]
--- OUTSIDE RECORDS SUMMARY | 2018-05-15 07:16 | XMS REPORT ---
Author Author NIYAH Romano Organization [facility] Address [address] [place] [address] Care Team Providers Care Shooter'S Helper Name Role Phone NIYAH Romano Unavailable PROBLEMS Type Condition ICD9-CM Code HKG64-DT Code Onset Dates Condition Status SNOMED Code Problem Stress incontinence of urine N39.3 Active 88479709 Problem Neuropathy G62.9 Active 232471901 Problem Major depressive disorder, single episode, unspecified F32.9 Active 84134662 Problem Morbid (severe) obesity due to excess calories E66.01 Active 713123449 Problem Body mass index (BMI) of 45.0-49.9 in adult Z68.42 Active 749659210 Problem 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 Active 577936401 Problem Schizoaffective disorder, bipolar type F25.0 Active 62270823 Problem Primary osteoarthritis of left knee M17.12 Active 573103513 Problem Post-menopausal bleeding N95.0 Active 86455465 Problem Depression F32.9 Active 91175870 Problem Bipolar 1 disorder F31.9 Active 641072365 Problem Edema R60.9 Active 663162581 Problem GERD (gastroesophageal reflux disease) K21.9 Active 153185579 Problem Obesity E66.9 Active 659890050 Problem Joint pain of lower extremity M25.50 Active 06451315 Problem Environmental allergies Z91.09 Active 853818907 ALLERGIES No Information ENCOUNTERS Encounter Location Date Diagnosis [facility] [id number] [address] Oct, [facility] [id number] [place] [address] 82536- 2160 Jul, [facility] [id number], [place] [address] Jul, Primary osteoarthritis of left knee M17.12 [facility] [id number] [place] [address] 13959- 9217 Jul, Schizoaffective disorder, bipolar type F25.0 and 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 [facility] [id number] [place] [address] 15979- 8917 Jul, Prediabetes R73.03 ; Primary osteoarthritis of left knee M17.12 ; GERD (gastroesophageal reflux disease) K21.9 ; Bipolar 1 disorder F31.9 ; Depression F32.9 ; Environmental allergies Z91.09 ; Neuropathy G62.9 ; Edema R60.9 ; Body mass index (BMI) of 45.0-49.9 in adult Z68.42 and Morbid ( severe) obesity due to excess calories E66.01 [facility] [id number] [place] [address] 55443- 9361 Jul, [facility] [address] 98433- 0418 Jun, [facility] [id number] [place] [address] 46149- 9612 Jun, [facility] [address] 09949- 9828 Jun, Wound of right breast, initial encounter S21.001A and Prediabetes R73.03 [facility] [id number] [place] [address] 84782- 9441 Jun, [facility] [id number] [place] [address] 66157- 3402 May, GERD (gastroesophageal reflux disease) K21.9 [facility] [id number] [place] [address] 25349- 5474 May, Primary osteoarthritis of left knee M17.12 [facility] [id number] [place] [address] 94437- 9396 May, Schizoaffective disorder, bipolar type F25.0 and 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 [facility] [id number] [place] [address] 69240- 4974 May, Left medial knee pain M25.562 ; GERD (gastroesophageal reflux disease) K21.9 ; Depression F32.9 ; Neuropathy G62.9 ; Obesity E66.9 ; Prediabetes R73.03 and Edema R60.9 [address] [place] [id number] [place] [address] 11626- 8524 Mar, [facility] [address] 54124- 6705 Mar, [address] 79402- 7311 Mar, Post-menopausal bleeding N95.0 and BMI 50.0-59.9, adult Z68.43 [id number] [place] [address] 54848- 1810 Mar, [address] 64903- 2858 Mar, Schizoaffective disorder, bipolar type F25.0 and Methamphetamine abuse in remission F15.[address] 59865- 4803 Mar, [facility] [id number] [place] [address] 20031- 1277 Mar, [id number] [place] [address] 50086- 5186 Mar, Post-menopausal bleeding N95.0 ; Screening breast examination Z12.31 ; Screen for STD (sexually transmitted disease) Z11.3 ; Obesity E66.9 ; Family history of ovarian cancer Z80.41 and Family history of cervical cancer Z80.49 [facility] [id number] [place] [address] 76065- 5095 Mar, [id number] [place] [address] 73313- 4181 Mar, [facility] [id number] [place] [address] 74343- 3610 Jan, Schizoaffective disorder, bipolar type F25.0 and 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 [facility] [id number] [place] [address] 98457- 5454 Jan, Schizoaffective disorder, bipolar type F25.0 [facility] [id number] [place] [address] 26830- 2158 Jan, [facility] [id number] [place] [address] 75929- 1747 Jan, Prediabetes R73.03 and Obesity E66.9 [facility] [id number] [place] [address] 82046- 1855 Jan, Encounter for immunization Z23 [facility] [id number] [place] [address] 21850- 1412 Jan, [facility] [id number] [place] [address] 73486- 8968 Dec, [facility] [id number] [place] [address] 60402- 0417 Dec, [facility] [id number] [place] [address] 13490- 9324 Nov, Neuropathy G62.9 [facility] [id number] [place] [address] 37481- 7685 Nov, [facility] [id number] [place] [address] 79559- 6855 Nov, Schizoaffective disorder, bipolar type F25.0 [facility] [id number] [place] [address] 62306- 3066 Nov, Other group home (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 Z79.899 and Schizoaffective disorder, bipolar type F25.0 [facility] [id number] [place] [address] 85002- 5851 Oct, Schizoaffective disorder, bipolar type F25.0 ; Other group home (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 Z79.899 and 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 [facility] [address] [place] [address] [id number] Oct, Dental caries K02.9 [facility] [id number] [place] [address] 56399- 8658 Sep, Neuropathy G62.9 [facility] [address] 99573- 7518 Sep, [address] [facility] [address] 91722- 1974 Sep, Neuropathy G62.9 [facility] [id number] [place] [address] 32950- 3277 Jul, Schizoaffective disorder, depressive type F25.1 [facility] [id number] [place] [address] 59513- 2874 Jul, GERD (gastroesophageal reflux disease) K21.9 ; Joint pain of lower extremity M25.50 ; Environmental allergies Z91.09 ; Stress incontinence of urine N39.3 ; Neuropathy G62.9 ; Edema R60.9 and Acute pain of left knee M25.562 [facility] [id number] [place] [address] 94532- 0994 Jun, [facility] [id number] [place] [address] [id number] Jun, Dental examination Z01.20 [facility] [id number] [place] [address] 14869- 2690 Jun, [facility] [id number] [place] [address] 17958- 3759 May, [facility] [id number] [place] [address] 77132- 5187 May, Bipolar 1 disorder F31.9 ; Joint pain of lower extremity M25.50 ; Environmental allergies Z91.09 ; Stress incontinence of urine N39.3 ; Major depressive disorder, single episode, unspecified F32.9 ; Dizzy R42 ; Schizoaffective disorder, unspecified F25.9 ; Neuropathy G62.9 ; Localized edema R60.0 and GERD (gastroesophageal reflux disease) K21.9 [address] [address] 38140- 8303 May, Schizoaffective disorder, depressive type F25.1 [address] [address] 52353- 7514 May, Environmental allergies Z91.09 and Major depressive disorder , single episode, unspecified F32.9 [address] [address] 84160- 4837 Mar, Dental caries K02.9 [address] [address] 51839- 0064 Mar, Dental caries on smooth surface penetrating into pulp K02.63 [facility] [address] 38410 -2101 Mar, Peripheral edema R60.9 and Dry skin L85.3 [address] [address] [address] 89900- 6077 Mar, [address] [address] 92284- 3087 Mar, Major depressive disorder, single episode, unspecified F32.9 [address] [address] 55859- 7005 Mar, Dental caries K02.9 [address] [place] [address] 94348- 4858 Mar, Diabetes mellitus with complication E11.8 ; Urinary frequency R35.0 ; Stress incontinence of urine N39.3 ; Joint pain of lower extremity M25.50 ; Obesity E66.9 ; Environmental allergies Z91.09 ; Depression F32.9 ; Schizoaffective disorder, unspecified F25.9 ; Vaginal discharge N89.8 and Vaginal candidiasis B37.3 [address] [address] 82544- 7087 Jan, Schizoaffective disorder, unspecified F25.9 [address] [address] 90726- 1841 Jan, [address] [address] 13967- 9461 30 Dec, 2015 [address] [address] 51180- 8124 19 Dec, 2015 Dental caries K02.9 [address] [address] 30637- 4424 14 Dec, 2015 Obesity E66.9 ; Edema R60.9 ; Depression F32.9 ; Bipolar 1 disorder F31.9 ; 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 ; Environmental allergies Z91.09 ; Shortness of breath R06.02 ; Gastroesophageal reflux disease with esophagitis K21.0 ; Other chronic pain G89.29 ; Pain in right knee M25.561 ; Pain in left knee M25.562 and Encounter for immunization Z23 [address] [address] 60930- 7250 Nov, Dental caries K02.9 [address] [address] 31752- 7105 Oct, Schizoaffective disorder, unspecified F25.9 [address] [address] 84023- 1091 Oct, Dental examination Z01.20 [address] [address] 90650- 5734 Sep, Dental examination Z01.20 and Dental caries K02.9 [address] [address] 77038- 1180 Sep, [facility] [id number] [place] [address] 49339- 9020 Sep, [facility] [address] 26491- 4857 Sep, [facility] [id number] [place] [address] 28210- 6777 Sep, Schizoaffective disorder, unspecified F25.9 [facility] [address] 93220- 4625 August, Bipolar disorder, unspecified F31.9 [address] 66989- 3783 Jul, Edema R60.9 and Obesity E66.9 [address] [address] 96784- 1169 Jul, Edema R60.9 [facility] [address] 30518- 3876 Jul, Edema R60.9 [facility] [address] 92774 -4540 Jul, Edema R60.9 [facility] [id number] [place] [address] 01538- 5357 Jul, [facility] [id number] [place] [address] 37897- 7996 Jul, [facility] [id number] [place] [address] 87676- 6601 24 Jun, 2015 Environmental allergies V15.09 and Cough R05 [facility] [address] 71356- 2835 17 Jun, 2015 Environmental allergies V15.09 ; Edema R60.9 and Cough R05 [facility] [id number] [place] [address] 24484 -0960 12 Jun, 2015 Bronchospasm J98.01 [address] [address] 05209- 6393 10 Jun, 2015 [address] [address] 98249- 0944 Jun, [address] [address] 34069- 2246 08 Jun, 2015 Environmental allergies V15.09 ; Bipolar 1 disorder F31.9 ; GERD (gastroesophageal reflux disease) K21.9 ; Depression F32.9 ; Joint pain of lower extremity M25.50 ; COPD (chronic obstructive pulmonary disease) J44.9 and Screening for diabetes mellitus Z13.1 [address] [address] 28438- 5311 16 Jun, 2015 [address] [address] 64956- 5705 May, [address] [address] 37463- 5995 May, Schizoaffective disorder, unspecified F25.9 and Bipolar 1 disorder F31.9 [address] [address] 94749- 2514 May, [facility] [address] 74612- 7250 May, URI (upper respiratory infection) J06.9 ; Environmental allergies V15.09 and Cough R05 [address] [address] 15435- 6520 18 Mar, 2015 [address] [address] 62909- 7226 15 Mar, 2015 Vaginal discharge N89.8 [facility] [address] 02400- 5561 14 Mar, 2015 Schizoaffective disorder, unspecified F25.9 ; Major depressive disorder, single episode, unspecified F32.9 and Bipolar 1 disorder F31.9 [facility] [id number] [place] [address] 99450- 9833 Mar, [address] [address] 37638- 3568 Mar, Bipolar 1 disorder F31.9 [address] [place] [address] 99877- 8943 Jan, [facility] [address] 24461- 2692 Jan, Allergic rhinitis J30.9 and Cough R05 [address] 07786- 2649 Jan, 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 ; Bipolar 1 disorder F31.9 ; GERD ( gastroesophageal reflux disease) K21.9 ; Depression F32.9 and Joint pain of lower extremity M25.50 [address] [address] 34866- 0732 Dec, Encounter for immunization Z23 [facility] [address] 29303- 5553 Dec, Schizoaffective disorder, unspecified 295.70 ; Pain in joint , lower leg 719.46 ; Esophageal reflux 530.81 ; Bipolar 1 disorder 296.7 ; Depression 311 ; GERD (gastroesophageal reflux disease) 530.81 and Environmental allergies V15.09 [facility] [id number] [place] [address] [id number] Nov, Dental examination V72.2 [facility] [id number] [place] [address] 06846- 5481 Nov, Acute bronchitis 466.0 [address] [address] 61715- 2191 Nov, Schizoaffective disorder, unspecified 295.70 and Bipolar disorder, unspecified 296.80 [facility] [id number] [place] [address] [id number] Sep, Dental examination V72.2 [facility] [address] [id number] [id number] August, Dental examination V72.2 [facility] [id number] [place] [address] 89079- 6956 August, Schizoaffective disorder, unspecified 295.70 [facility] [id number] [place] [address] 61830- 8736 August, [facility] [id number] [place] [address] 11348- 7566 August, Vomiting 787.03 [facility] [id number] [place] [address] 29928- 6566 August, Vomiting and diarrhea 787.03 and High risk medication use V58.69 [facility] [id number] [place] [address] 57155- 5036 Jul, [facility] [id number] [place] [address] 19028- 2299 Jul, [facility] [address] [place] [address] 97985- 7397 Jul, [facility] [address] [place] [address] 55140- 4504 Jun, [facility] [address] [address]- 1726 Jun, [facility] [address] [address]- 6536 Jun, [facility] [address], [place] [address]- 2586 Jun, [facility] [id number] [place] [address] 51392- 8756 16 Jun, 2014 [facility] [address] [address]- 4306 Jun, [facility] [id number] [place] [address]- 9410 13 Jun, 2014 [facility] [address] [id number] [place] [address]- 0666 Jun, 2014 [facility] [place] [facility] [address] [id number] [place] [address]- 5914 Jun, 2014 [facility] [address] [id number] [place] 0534 Mar, [facility] [place] [facility] [address] [id number] [place] [address]- 3606 Mar, [facility] [place] [facility] [address] [id number] [place] [address]- 0333 Mar, [facility] [place] [facility] [address] [facility] [id number] [place] [address]- 9255 Mar, [facility] [place] [facility] [address] [facility] [id number] [place] [address]- 5050 Mar, [facility] [place] [facility] [address] [facility] [id number] [place] [address]- 3273 Mar, [facility] [place] [facility] [address] [facility] [id number] [place] [address]- 7787 Mar, [facility] [place] [facility] [address] [facility] [id number] [place] [address]- 7564 Mar, [facility] [place] [facility] [address] [id number] [place] [address]- 4547 Mar, [facility] [place] [facility] [address] [id number] [place] [address]- 0338 Mar, [facility] [place] [facility] [address] [facility] [id number] [place] [address]- 7122 Jan, [facility] [place] [facility] [address] [id number] [place] 7022 Jan, [facility] [place] [facility] [address] [facility] [id number] [place] [address]- 6382 Jan, [facility] [place] [facility] [address] [id number] [place] [address]- 2542 31 Jan, 2014 [facility] [place] [facility] [address] [id number] [place] [address]- 1894 14 Jan, 2014 [facility] [place] [facility] [address] [id number] [place] [address]- 1154 14 Jan, 2014 [facility] [place] [facility] [address] [id number] [place] [address]- 2103 Jan, [facility] [place] [facility] [address] [id number] [place] [address]- 0681 Jan, [facility] [place] [facility] [address] [id number] [place] [address]- 8891 19 Dec, 2013 [facility] [place] [facility] [address] [id number] [place] [address]- 3069 19 Dec, 2013 [facility] [place] [facility] [address] [id number], [place] [address]- 6737 15 Dec, 2013 [facility] [place] [facility] [address] [id number] [place] [address]- 2234 15 Dec, 2013 [facility] [place] [facility] [address] [id number] [address]- 3890 15 Dec, 2013 [facility] [place] [facility] [address] [id number], [place] [address]- 7270 15 Dec, 2013 [facility] [place] [facility] [address] [id number] [address]- 6811 12 Dec, 2013 [facility] [place] [facility] [address] [id number] [place] [address]- 0582 12 Dec, 2013 [facility] [place] [facility] [address] [id number], [place] [address]- 9711 03 Dec, 2013 [facility] [place] [facility] [address] [id number], [place] [address]- 1071 03 Dec, 2013 [facility] [place] [facility] [address] [id number], [place] [address]- 4178 Nov, [facility] [place] [facility] [address] [id number] [place] [address]- 6300 Nov, [facility] [place] [facility] [address] [id number] [place] [address]- 0601 Nov, [facility] [place] [facility] [address] [id number] [place] [address]- 6784 Nov, [facility] [place] [facility] [address] [id number] [place] [address]- 8295 Oct, [facility] [place] [facility] [address] [id number] [place] [address]- 0638 Oct, [facility] [place] [facility] [address] [id number] [place] [address]- 3835 Oct, [facility] [place] [facility] [address] [id number] [place] [address]- 0085 Oct, [facility] [place] [facility] [address] [id number] [place] [address]- 9976 Sep, [facility] [place] [facility] [address] [id number] [place] [address]- 7370 Sep, [facility] [place] [facility] [address] [id number] [place] [address]- 2441 Sep, [facility] [place] [facility] [address] [id number] [place] [address]- 8860 Sep, [facility] [place] [facility] [address] [id number] [place] [address]- 7551 Sep, [facility] [place] [facility] [address] [id number] [place] [address]- 6578 Sep, [facility] [place] [facility] [address] [id number] [place] [address]- 6159 Sep, [facility] [place] [facility] [address] [id number] [place] [address]- 0605 Sep, [facility] [place] [facility] [address] [id number] [place] [address]- 9128 August, [facility] [place] [facility] [address] [id number] [place] [address]- 0102 August, [facility] [place] [facility] [address] [id number] [place] [address]- 6266 Jul, [facility] [place] [facility] [address] [id number] [place] [address]- 9156 Jul, [facility] [place] [facility] [address] [id number] [place] [address]- 4609 Jul, [facility] [place] [facility] [address] [id number] [place] [address]- 1360 Jul, [facility] [place] [facility] [address] [id number] [place] [address] Jul, [facility] [place] [facility] [address] [id number] [place] [address] Jul, [facility] [place] [facility] [address] [id number] [place] [address] Jul, [facility] [place] [facility] [address] [id number] [place] [address] Jul, [facility] [place] [facility] [address] [id number] [place] [address] Jul, [facility] [place] [facility] [address] [id number] [place] [address] Jul, [facility] [place] [facility] [address] [id number] [place] [address] Jun, [facility] [place] [facility] [address] [id number] [place] [address] Jun, [facility] [place] [facility] [address] [id number] [place] [address] Jun, [facility] [place] [facility] [address] [id number] [place] [address] 18 Jun, 2013 [facility] [place] [facility] [address] [id number] [place] [address] 17 Jun, 2013 [facility] [place] [facility] [address] [id number] [place] [address] 17 Jun, 2013 [facility] [place] [facility] [address] [id number] [place] [address] 17 Jun, 2013 [facility] [place] [facility] [address] [id number] [place] [address] 17 Jun, 2013 [facility] [place] [facility] [address] [id number] [place] [address] 14 Jun, 2013 [facility] [place] [facility] [address] [id number] [place] [address] 14 Jun, 2013 [facility] [place] [facility] [address] [id number] [place] [address] 07 Jun, 2013 [facility] [place] [facility] [address] [id number] [place] [address] Jun, [facility] [place] [facility] [address] [id number] [place] [address] Jun, [facility] [place] [facility] [address] [id number] [place] [address] Jun, [facility] [place] [facility] [address] [id number] [place] [address] Jun, [facility] [place] [facility] [address] [id number] [place] [address] Jun, [facility] [place] [facility] [address] [id number] [place] [address] May, [facility] [place] [facility] [address] [id number] [place] [address] May, [facility] [place] [facility] [address] [id number] [place] [address] May, [facility] [place] [facility] [address] [id number] [place] [address] May, [facility] [address] [id number] [place] [address] Mar, [facility] [address] [id number] [place] [address] Mar, [facility] [address] [id number] [place] [address] Mar, [facility] [address] [id number] [place] [address] Mar, [facility] [address] [id number] [place] [address] Mar, [facility] [address] [id number] [place] [address] Mar, [facility] [address] [id number] [place] [address] Mar, [facility] [address] [id number] [place] [address] Mar, [facility] [address] [id number] [place] [address] Jan, [facility] [address] [id number] [place] [address] Jan, [facility] [place] [facility] [address] [id number] [place] [address] Jan, [facility] [address] [id number] [address] Jan, [facility] [place] [facility] [address] [id number] [place] [address] Jan, [facility] [place] [facility] [address] [id number] [place] [address] Jan, [facility] [place] [facility] [address] [id number] [place] [address] Jan, [facility] [address] [id number] [place] [address] Dec, [facility] [place] [facility] [address] [id number] [place] [address] Nov, [facility] [place] [facility] [address] [id number] [place] [address] Oct, [facility] [place] [facility] [address] [id number] [place] [address] Oct, [facility] [place] [facility] [address] [id number] [place] [address] Sep, [facility] [place] [facility] [address] [id number] [place] [address] Sep, [facility] [place] [facility] [address] [id number] [place] [address] Sep, [facility] [place] [facility] [address] [id number] [place] [address] August, [facility] [place] [facility] [address] [id number] [place] [address] Jun, [facility] [place] [facility] [address] [id number] [place] [address] Jun, [facility] [place] [facility] [address] [id number] [place] [address]26 Jun, [facility] [place] [facility] [address] [id number], [place] [address] Jun, [facility] [place] [facility] [address] [id number] [place] [address] Jun, [facility] [place] [facility] [address] [id number] [place] [address]186 Jun, [facility] [place] [facility] [address] [id number] [place] [address] Jun, [facility] [place] [facility] [address] [id number] [place] [address] May, [facility] [address] [id number] [place] [address] May, [facility] [address] [id number] [place] [address] May, [facility] [address] [id number] [place] [address] May, [facility] [address] [id number] [place] [address] May, [facility] [address] [id number] [place] [address] May, [facility] [address] [id number] [place] [address] 30[address] May, [facility] [address] [id number] [place] [address] Mar, [facility] [address] [id number] [place] [address] 1004 Mar, [facility] [address] [id number] [place] [address] Mar, [facility] [address] [id number] [place] [address] Mar, [facility] [address] [id number] [place] [address] 3946 Mar, [facility] [address] [id number] [place] [address] Mar, [facility] [place] [facility] [address] [id number] [place] [address]60 Mar, [facility] [place] [facility] [address] [id number] [place] [address] Mar, [facility] [address] [id number] [place] [address]97 Mar, [facility] [place] [facility] [address] [id number] [place] [address]- 7987 Mar, [facility] [place] [facility] [address] [id number] [place] [address] Mar, [facility] [place] [facility] [address] [id number] [place] [address] Mar, [facility] [place] [facility] [address] [id number] [place] [address], [place] [address]- [address] Mar, [facility] [place] [facility] [address] [id number] [place] [address] Mar, [facility] [place] [facility] [address] [id number] [place] [address]- [address] Mar, [facility] [place] [facility] [address] [facility] [id number] [place] [address] Mar, [facility] [place] [facility] [address] [id number] [place] [address] 1224 Mar, [facility] [place] [facility] [address] [id number] [place] [address] Mar, [facility] [place] [facility] [address] [id number] [place] [address]- [address] Mar, [facility] [place] [facility] [address] [facility] [id number] [place] [address]- [address]85 Jan, [facility] [place] [facility] [address] [id number], [place] [address] Jan, [facility] [place] [facility] [address] [id number] [place] [address]- 3063 Jan, [facility] [place] [facility] [address] [id number] [place] [address]- 5927 Jan, [facility] [place] [facility] [address] [id number], [place] [address] Dec, [facility] [place] [facility] [address] [id number], [place] [address] Dec, [facility] [id number], [place] [address] Dec, [facility] [id number] [address] Nov, [facility] [id number], [place] [address] Nov, [facility] [id number], [place] [address] Oct, [facility] [id number], [place] [address] Oct, [facility] [id number], [place] [address] Oct, [facility] [id number], [place] [address] Oct, [facility] [id number], [place] [address] Oct, [facility] [address] [id number], [place] [address] Oct, IMMUNIZATIONS Vaccine Route Administration Date Status FLUARIX QUAD (3 AND UP) 2016 IM Intramuscular Feb 02, 2017 Administered SOCIAL HISTORY Never Assessed REASON FOR VISIT Flu shot - KATALINA Duffy PLAN OF CARE VITAL SIGNS MEDICATIONS Unknown Medications RESULTS No Results PROCEDURES Procedure Date Ordered Result Body Site FLUARIX QUAD (3 & UP)-GSK-2015 Feb 02, 2017 SINGLE IMMUNIZATION ADMIN Feb 02, 2017 INSTRUCTIONS MEDICATIONS ADMINISTERED No Known Medications [...]
--- OUTSIDE RECORDS SUMMARY | 2018-05-15 07:17 | XMS REPORT ---
Author Author RAY NEVAREZ [facility] Address [address] [place] [address] Care Team Providers Care Cell Geneticist Name Role Phone RAY NEVAREZ Unavailable PROBLEMS Type Condition ICD9-CM Code [id number] Code Onset Dates Condition Status SNOMED Code Problem Stress incontinence of urine N39.3 Active 82999206 Problem Neuropathy G62.9 Active 671670425 Problem Major depressive disorder, single episode, unspecified F32.9 Active 09464817 Problem Morbid (severe) obesity due to excess calories E66.01 Active 103533641 Problem Body mass index (BMI) of 45.0-49.9 in adult Z68.42 Active 236173815 Problem 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 Active 605511371 Problem Schizoaffective disorder, bipolar type F25.0 Active 98181082 Problem Primary osteoarthritis of left knee M17.12 Active 135538116 Problem Post-menopausal bleeding N95.0 Active 21427820 Problem Obstructive sleep apnea G47.33 Active 90006606 Problem Depression F32.9 Active 97018506 Problem Bipolar 1 disorder F31.9 Active 368391429 Problem Edema R60.9 Active 305484823 Problem GERD (gastroesophageal reflux disease) K21.9 Active 977194237 Problem Obesity E66.9 Active 982542160 Problem Joint pain of lower extremity M25.50 Active 41322079 Problem Environmental allergies Z91.09 Active 601839638 ALLERGIES No Information ENCOUNTERS Encounter Location Date Diagnosis [facility] [address] [facility] [id number] [address] Oct, [facility] [address] [address] August, Neuropathy G62.9 [facility] [id number] [address] August, [facility] [id number] [place] [address] 43896- 2757 August, [place] [address] 27638- 7922 Jul, [facility] [id number] [place] [address] 54025- 9301 Jul, Primary osteoarthritis of left knee M17.12 [facility] [place] [address] 65480- 1707 Jul, Schizoaffective disorder, bipolar type F25.0 and 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 [facility] [address] 27011- 2684 Jul, Prediabetes R73.03 ; Primary osteoarthritis of left knee M17.12 ; GERD (gastroesophageal reflux disease) K21.9 ; Bipolar 1 disorder F31.9 ; Depression F32.9 ; Environmental allergies Z91.09 ; Neuropathy G62.9 ; Edema R60.9 ; Body mass index (BMI) of 45.0-49.9 in adult Z68.42 and Morbid ( severe) obesity due to excess calories E66.01 [facility] [id number] [place] [address] 05153- 4464 Jul, [facility] [id number] [place] [address] 54782- 6247 Jun, [facility] [id number] [place] [address] 44491- 2078 Jun, [facility] [id number] [place] [address] 75484- 4763 Jun, Wound of right breast, initial encounter S21.001A and Prediabetes R73.03 [facility] [id number] [place] [address] 09813- 8420 Jun, [facility] [id number] [place] [address] 88430- 1361 May, GERD (gastroesophageal reflux disease) K21.9 [facility] [id number] [place] [address] 89065- 8695 May, Primary osteoarthritis of left knee M17.12 [facility] [id number] [place] [address] 52450- 7863 May, Schizoaffective disorder, bipolar type F25.0 and 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 [facility] [address] 43385- 9469 04 May, 2017 Left medial knee pain M25.562 ; GERD (gastroesophageal reflux disease) K21.9 ; Depression F32.9 ; Neuropathy G62.9 ; Obesity E66.9 ; Prediabetes R73.03 and Edema R60.9 [facility] [id number] [place] [address] 51659- 7025 14 Mar, 2017 [facility] [place] [address] 26419- 9183 08 Mar, 2017 [facility] [id number] [place] [address] 71971- 4657 05 Mar, 2017 Post-menopausal bleeding N95.0 and BMI 50.0-59.9, adult Z68.43 [facility] [id number] [place] [address] 17648- 6052 Mar, [facility] [id number] [place] [address] 91544- 2017 27 Mar, 2017 Schizoaffective disorder, bipolar type F25.0 and 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 [facility] [id number] [place] [address] 91962- 4150 27 Mar, 2017 [facility] [place] [address] 49737- 1089 16 Mar, 2017 [facility] [id number] [place] [address] 63976- 0616 10 Mar, 2017 Post-menopausal bleeding N95.0 ; Screening breast examination Z12.31 ; Screen for STD (sexually transmitted disease) Z11.3 ; Obesity E66.9 ; Family history of ovarian cancer Z80.41 and Family history of cervical cancer Z80.49 [facility] [id number] [place] [address] 56737- 7952 Mar, [facility] [id number] [place] [address] 75848- 7712 Mar, [facility] [address] 82044- 1965 Jan, Schizoaffective disorder, bipolar type F25.0 and 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 [facility] [address] 14523- 3133 Jan, Schizoaffective disorder, bipolar type F25.0 [facility] [id number] [place] [address] 42962- 2118 Jan, [place] [address] 18642- 2658 Jan, Prediabetes R73.03 and Obesity E66.9 [facility] [address] 76835- 2931 Jan, Encounter for immunization Z23 [facility] [id number] [place] [address] 33280- 4966 Jan, [facility] [id number] [place] [address] 63810- 1883 Dec, [facility] [id number] [place] [address] 43293- 9611 Dec, [facility] [address] 71543- 6650 Nov, Neuropathy G62.9 [facility] [id number] [place] [address] 34638- 1610 Nov, [facility] [address] 76072- 9683 Nov, Schizoaffective disorder, bipolar type F25.0 [facility] [id number] [place] [address] 06064- 1878 Nov, Other half-way (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 Z79.899 and Schizoaffective disorder, bipolar type F25.0 [facility] [id number] [place] [address] 26395- 9798 Oct, Schizoaffective disorder, bipolar type F25.0 ; Other half-way (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 Z79.899 and 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 [facility] [address] [id number] Oct, Dental caries K02.9 [facility] [id number] [place] [address] 94328- 6967 Sep, Neuropathy G62.9 [facility] [address] 33003- 8986 Sep, [facility] [id number] [place] [address] 79123- 1978 Sep, Neuropathy G62.9 [facility] [id number] [place] [address] 08584- 8600 Jul, Schizoaffective disorder, depressive type F25.1 [facility] [id number] [place] [address] 21631- 4747 Jul, GERD (gastroesophageal reflux disease) K21.9 ; Joint pain of lower extremity M25.50 ; Environmental allergies Z91.09 ; Stress incontinence of urine N39.3 ; Neuropathy G62.9 ; Edema R60.9 and Acute pain of left knee M25.562 [facility] [id number] [place] [address] 43410- 6786 Jun, [facility] [id number] [place] [address] [id number] Jun, Dental examination Z01.20 [facility] [id number] [place] [address] 84586- 7354 Jun, [place] [address] 79387- 9053 May, [place] [address] 98347- 5171 May, Bipolar 1 disorder F31.9 ; Joint pain of lower extremity M25.50 ; Environmental allergies Z91.09 ; Stress incontinence of urine N39.3 ; Major depressive disorder, single episode, unspecified F32.9 ; Dizzy R42 ; Schizoaffective disorder, unspecified F25.9 ; Neuropathy G62.9 ; Localized edema R60.0 and GERD (gastroesophageal reflux disease) K21.9 [facility] [id number] [place] [address] 45230- 9197 May, Schizoaffective disorder, depressive type F25.1 [facility] [address] 62592- 7699 May, Environmental allergies Z91.09 and Major depressive disorder , single episode, unspecified F32.9 [facility] [address] 14861- 4170 Mar, Dental caries K02.9 [facility] [id number] [place] [address] 27484- 3847 Mar, Dental caries on smooth surface penetrating into pulp K02.63 [facility] [id number] [place] [address] 35241 -7451 Mar, Peripheral edema R60.9 and Dry skin L85.3 [facility] [place] [address] 91529- 7953 Mar, [place] [address] 79063- 9502 Mar, Major depressive disorder, single episode, unspecified F32.9 [place] [address] 62103- 1966 09 Mar, 2016 Dental caries K02.9 [facility] [id number] [place] [address] 75398- 3188 07 Mar, 2016 Diabetes mellitus with complication E11.8 ; Urinary frequency R35.0 ; Stress incontinence of urine N39.3 ; Joint pain of lower extremity M25.50 ; Obesity E66.9 ; Environmental allergies Z91.09 ; Depression F32.9 ; Schizoaffective disorder, unspecified F25.9 ; Vaginal discharge N89.8 and Vaginal candidiasis B37.3 [facility] [place] [id number] [place] [address] 23611- 9651 Jan, Schizoaffective disorder, unspecified F25.9 [facility] [id number] [place] [address] 87796- 2948 17 Jan, 2016 [place] [address] 93410- 3951 30 Dec, 2015 [facility] [id number] [place] [address] 02344- 6958 19 Dec, 2015 Dental caries K02.9 [place] [place] [address] 50654- 0839 14 Dec, 2015 Obesity E66.9 ; Edema R60.9 ; Depression F32.9 ; Bipolar 1 disorder F31.9 ; 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 ; Environmental allergies Z91.09 ; Shortness of breath R06.02 ; Gastroesophageal reflux disease with esophagitis K21.0 ; Other chronic pain G89.29 ; Pain in right knee M25.561 ; Pain in left knee M25.562 and Encounter for immunization Z23 [facility] [id number] [place] [address] 82664- 4691 Nov, Dental caries K02.9 [facility] [id number] [place] [address] 62012- 6031 Oct, Schizoaffective disorder, unspecified F25.9 [place] [place] [address] [address]- 3791 12 Oct, 2015 Dental examination Z01.20 [facility] [id number] [place] [address] 75683- 0426 Sep, Dental examination Z01.20 and Dental caries K02.9 [facility] [id number] [place] [address] 07060- 6621 Sep, [facility] [id number] [place] [address] 19768- 0605 Sep, [facility] [id number] [place] [address] 50710- 4337 Sep, [facility] [id number] [place] [address] 59292- 1428 Sep, Schizoaffective disorder, unspecified F25.9 [facility] [id number] [place] [address] 30470- 3011 August, Bipolar disorder, unspecified F31.9 [facility] [id number] [place] [address] 55243- 1248 Jul, Edema R60.9 and Obesity E66.9 [facility] [id number] [place] [address] 35002- 2024 Jul, Edema R60.9 [facility] [id number] [place] [address] 35847- 9714 Jul, Edema R60.9 [facility] [address] [place] [address] 20435 -9558 Jul, Edema R60.9 [facility] [id number] [place] [address] 95843- 4476 Jul, [facility] [address] [place] [address] 34152- 8738 08 Jul, 2015 [facility] [id number] [place] [address] 69368- 4641 24 Jun, 2015 Environmental allergies V15.09 and Cough R05 [facility] [id number] [place] [address] 68552- 1047 17 Jun, 2015 Environmental allergies V15.09 ; Edema R60.9 and Cough R05 [facility] [id number] [place] [address] 44393 -4219 12 Jun, 2015 Bronchospasm J98.01 [facility] [address] 05004- 8723 10 Jun, 2015 [facility] [address] 42105- 5792 Jun, [facility] [address] 06719- 2796 08 Jun, 2015 Environmental allergies V15.09 ; Bipolar 1 disorder F31.9 ; GERD (gastroesophageal reflux disease) K21.9 ; Depression F32.9 ; Joint pain of lower extremity M25.50 ; COPD (chronic obstructive pulmonary disease) J44.9 and Screening for diabetes mellitus Z13.1 [facility] [address] 01249- 9746 Jun, [facility] [address] 52822- 5949 May, [facility] [id number] [place] [address] 03606- 0328 14 May, 2015 Schizoaffective disorder, unspecified F25.9 and Bipolar 1 disorder F31.9 [facility] [id number] [place] [address] 39861- 0010 May, [place] [address] 56818- 1687 May, URI (upper respiratory infection) J06.9 ; Environmental allergies V15.09 and Cough R05 [facility] [id number] [place] [address] 98263- 9453 Mar, [facility] [place] [id number] [place] [address] 68322- 2693 Mar, Vaginal discharge N89.8 [facility] [place] [address] 76087- 6294 Mar, Schizoaffective disorder, unspecified F25.9 ; Major depressive disorder, single episode, unspecified F32.9 and Bipolar 1 disorder F31.9 [place] [address] 42768- 7223 Mar, [place] [address] 26092- 8450 Mar, Bipolar 1 disorder F31.9 [facility] [place] [address] 34557- 9739 Jan, [place] [address] 66511- 1873 Jan, Allergic rhinitis J30.9 and Cough R05 [address] 29845- 9785 Jan, 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 ; Bipolar 1 disorder F31.9 ; GERD ( gastroesophageal reflux disease) K21.9 ; Depression F32.9 and Joint pain of lower extremity M25.50 [place] [address] 87265- 9711 28 Dec, 2014 Encounter for immunization Z23 [facility] [address] 86195- 8639 02 Dec, 2014 Schizoaffective disorder, unspecified 295.70 ; Pain in joint , lower leg 719.46 ; Esophageal reflux 530.81 ; Bipolar 1 disorder 296.7 ; Depression 311 ; GERD (gastroesophageal reflux disease) 530.81 and Environmental allergies V15.09 [facility] [id number] [place] [address] [id number] Nov, Dental examination V72.2 [facility] [address] 54933- 2946 Nov, Acute bronchitis 466.0 [facility] [id number] [place] [address] 14457- 6406 Nov, Schizoaffective disorder, unspecified 295.70 and Bipolar disorder, unspecified 296.80 [facility] [address] [id number] Sep, Dental examination V72.2 [facility] [id number] [place] [address] [id number] August, Dental examination V72.2 [facility] [id number] [place] [address] 70655- 4566 August, Schizoaffective disorder, unspecified 295.70 [facility] [id number] [place] [address] 96912- 0216 August, [facility] [id number] [place] [address] 00604- 5486 August, Vomiting 787.03 [facility] [id number] [place] [address] 75658- 1181 August, Vomiting and diarrhea 787.03 and High risk medication use V58.69 [facility] [id number] [address]- 9486 Jul, [facility] [id number] [place] [address] 92536- 0944 Jul, [facility] [id number] [address] 0016 Jul, [facility] [id number] [place] [address] 64497- 1276 Jun, [facility] [id number] [place] [address] 17313- 1166 Jun, [facility] [address] [address]- 9456 Jun, [facility] [address] [id number] [place] [address]- 6352 Jun, 2014 [facility] [place] [facility] [address] [id number] [place] [address]- 7422 16 Jun, 2014 [facility] [place] [facility] [address] [id number] [place] [address]- 3226 13 Jun, 2014 [facility] [place] [facility] [address] [id number] [place] [address]- 6072 13 Jun, 2014 [facility] [place] [facility] [address] [id number] [place] [address]- 8570 Jun, 2014 [facility] [place] [facility] [address] [id number] [place] [address]- 7714 Jun, 2014 [facility] [place] [facility] [address] [facility] [id number] [place] [address]- 9696 Mar, [facility] [place] [facility] [address] [id number] [place] [address]- 8662 Mar, [facility] [place] [facility] [address] [id number] [place] [address]- 0710 Mar, [facility] [place] [facility] [address] [id number] [place] [address]- 4964 Mar, [facility] [place] [facility] [address] [id number] [place] [address]- 5098 Mar, [facility] [place] [facility] [address] [id number] [place] [address]- 5471 Mar, [facility] [place] [facility] [address] [id number] [place] 4612 Mar, [facility] [place] [facility] [address] [id number] [place] 2026 Mar, [facility] [place] [facility] [address] [id number] [place] [address]- 3092 Mar, [facility] [place] [facility] [address] [id number] [place] [address]- 0422 Mar, [facility] [place] [facility] [address] [id number] [place] [address]- 6064 Jan, [facility] [place] [facility] [address] [id number] [place] [address]- 1847 Jan, [facility] [place] [facility] [address] [id number] [place] [address]- 8220 Jan, [facility] [place] [facility] [address] [id number] [place] [address]- 5658 Jan, [facility] [place] [facility] [address] [id number] [place] [address]- 5814 Jan, [facility] [place] [facility] [address] [id number] [place] [address]- 8969 Jan, [facility] [place] [facility] [address] [id number] [place] [address]- 3305 Jan, [facility] [place] [facility] [address] [id number] [place] [address]- 6595 Jan, [facility] [place] [facility] [address] [id number] [place] [address]- 5522 19 Dec, 2013 [facility] [place] [facility] [address] [id number] [place] [address]- 1935 19 Dec, 2013 [facility] [place] [facility] [address] [id number] [place] [address]- 3535 15 Dec, 2013 [facility] [place] [facility] [address] [id number] [place] [address]- 9037 15 Dec, 2013 [facility] [place] [facility] [address] [id number] [place] [address]- 2548 15 Dec, 2013 [facility] [place] [facility] [address] [id number] [place] [address]- 3213 15 Dec, 2013 [facility] [place] [facility] [address] [id number] [place] [address]- 6108 12 Dec, 2013 [facility] [place] [facility] [address] [id number] [place] [address]- 9741 12 Dec, 2013 [facility] [place] [facility] [address] [id number] [place] [address]- 5343 Dec, [facility] [place] [facility] [address] [id number] [place] [address]- 6983 Dec, [facility] [place] [facility] [address] [id number] [place] [address]- 2318 Nov, [facility] [place] [facility] [address] [id number] [place] [address]- 3053 Nov, [facility] [place] [facility] [address] [id number] [place] [address]- 3784 Nov, [facility] [place] [facility] [address] [id number] [place] [address]- 7984 Nov, [facility] [place] [facility] [address] [id number] [place] [address]- 6481 Oct, [facility] [place] [facility] [address] [id number] [place] [address]- 7631 Oct, [facility] [place] [facility] [address] [id number] [place] [address]- 6982 Oct, [facility] [place] [facility] [address] [id number] [place] [address]- 5201 Oct, [facility] [place] [facility] [address] [id number] [place] [address]- 4949 Sep, [facility] [place] [facility] [address] [id number] [place] [address]- 7580 Sep, [facility] [place] [facility] [address] [id number] [place] [address]- 0407 Sep, [facility] [place] [facility] [address] [id number] [place] [address]- 6751 17 Sep, 2013 [facility] [place] [facility] [address] [id number] [place] [address]- 1567 Sep, [facility] [place] [facility] [address] [id number] [place] [address] Sep, [facility] [place] [facility] [address] [id number] [place] [address] Sep, [facility] [place] [facility] [address] [id number] [place] [address] Sep, [facility] [place] [facility] [address] [id number] [place] [address] August, [facility] [place] [facility] [address] [id number] [place] [address] August, [facility] [place] [facility] [address] [id number] [place] [address] Jul, [facility] [place] [facility] [address] [id number] [place] [address] Jul, [facility] [place] [facility] [address] [id number] [place] [address] Jul, [facility] [place] [facility] [address] [id number] [place] [address] Jul, [facility] [place] [facility] [address] [id number] [place] [address] Jul, [facility] [place] [facility] [address] [id number] [place] [address] Jul, [facility] [place] [facility] [address] [id number] [place] [address] Jul, [facility] [place] [facility] [address] [id number] [place] [address] Jul, [facility] [place] [facility] [address] [id number] [place] [address] Jul, [facility] [place] [facility] [address] [id number] [place] [address] Jul, [facility] [place] [facility] [address] [id number] [place] [address] 27 Jun, 2013 [facility] [place] [facility] [address] [id number] [place] [address] 27 Jun, 2013 [facility] [place] [facility] [address] [id number] [place] [address] 18 Jun, 2013 [facility] [place] [facility] [address] [id number] [place] [address] 18 Jun, 2013 [facility] [place] [facility] [address] [id number] [place] [address] 17 Jun, 2013 [facility] [place] [facility] [address] [id number] [place] [address] 17 Jun, 2013 [facility] [place] [facility] [address] [id number] [place] [address] 17 Jun, 2013 [facility] [place] [facility] [address] [id number] [place] [address] 17 Jun, 2013 [facility] [place] [facility] [address] [id number] [place] [address] 14 Jun, 2013 [facility] [place] [facility] [address] [id number] [place] [address] 14 Jun, 2013 [facility] [place] [facility] [address] [facility] [id number] [place] [address] Jun, [facility] [place] [facility] [address] [id number] [place] [address] Jun, [facility] [place] [facility] [address] [id number] [place] [address] Jun, [facility] [place] [facility] [address] [id number] [place] [address] Jun, [facility] [place] [facility] [address] [id number] [place] [address] Jun, [facility] [place] [facility] [address] [id number] [place] [address] Jun, [facility] [place] [facility] [address] [id number] [place] [address] May, [facility] [address] [id number] [place] [address] May, [facility] [address] [id number] [place] [address] May, [facility] [address] [id number] [place] [address] May, [facility] [address] [id number] [place] [address] Mar, [facility] [address] [id number] [place] [address] Mar, [facility] [address] [id number] [place] [address] Mar, [facility] [address] [id number] [place] [address] Mar, [facility] [address] [id number] [place] [address] Mar, [facility] [address] [id number] [place] [address] Mar, [facility] [address] [id number] [place] [address] Mar, [facility] [place] [facility] [address] [id number] [place] [address] Mar, [facility] [place] [facility] [address] [id number] [place] [address] Jan, [facility] [place] [facility] [address] [id number] [place] [address] Jan, [facility] [place] [facility] [address] [id number] [place] [address] Jan, [facility] [place] [facility] [address] [id number] [place] [address] Jan, [facility] [place] [facility] [address] [id number] [place] [address] Jan, [facility] [place] [facility] [address] [id number] [place] [address] Jan, [facility] [place] [facility] [address] [id number] [place] [address] Jan, [facility] [place] [facility] [address] [id number] [place] [address] Dec, [facility] [place] [facility] [address] [id number] [place] [address]73 Nov, [facility] [place] [facility] [address] [id number] [place] [address] Oct, [facility] [place] [facility] [address] [id number] [place] [address] 3714 Oct, [facility] [place] [facility] [address] [id number] [place] [address] Sep, [facility] [place] [facility] [address] [id number] [place] [address] Sep, [facility] [place] [facility] [address] [id number] [place] [address] Sep, [facility] [place] [facility] [address] [id number] [place] [address] August, [facility] [place] [facility] [address] [id number] [place] [address] Jun, [facility] [place] [facility] [address] [id number] [place] [address] 44[address] Jun, [facility] [place] [facility] [address] [id number] [place] [address] Jun, [facility] [place] [facility] [address] [id number] [place] [address] Jun, [facility] [place] [facility] [address] [id number] [place] [address] 13 Jun, 2012 [facility] [address] [id number] [place] [address] 12 Jun, 2012 [facility] [place] [facility] [address] [id number] [place] [address] 07 Jun, 2012 [facility] [address] [id number] [place] [address] May, [facility] [address] [id number] [place] [address] May, [facility] [address] [id number] [place] [address] 8914 May, [facility] [address] [id number] [place] [address] 1673 May, [facility] [address] [id number] [place] [address] 7185 May, [facility] [address] [id number] [place] [address] 4689 May, [facility] [address] [id number] [place] [address] 34[address] May, [facility] [address] [id number] [place] [address] 7[address] Mar, [facility] [address] [id number] [place] [address] 4035 Mar, [facility] [address] [id number] [place] [address] 64[address] Mar, [facility] [place] [facility] [address] [id number] [place] [address] 1493 Mar, [facility] [address] [id number] [place] [address]- 8164 05 Mar, 2012 [facility] [address] [id number] [place] [address] Mar, [facility] [place] [facility] [address] [id number] [place] [address] 3319 Mar, [facility] [place] [facility] [address] [id number] [place] [address] 4638 Mar, [facility] [place] [facility] [address] [facility] [id number] [place] [address] 8141 Mar, [facility] [place] [facility] [address] [id number] [place] [address] 8836 Mar, [facility] [place] [facility] [address] [id number] [place] [address]- 8584 Mar, [facility] [place] [facility] [address] [id number] [place] [address] 2206 Mar, [facility] [place] [facility] [address] [id number] [place] [address] Mar, [facility] [place] [facility] [address] [id number] [place] [address] Mar, [facility] [place] [facility] [address] [id number] [place] [address] 8524 Mar, [facility] [place] [facility] [address] [facility] [id number] [place] [address] 116[address] Mar, [facility] [place] [facility] [address] [id number] [place] [address] 0521 Mar, [facility] [place] [facility] [address] [id number] [place] [address] 1353 Mar, [facility] [place] [facility] [address] [id number] [place] [address]574 Mar, [facility] [place] [facility] [address] [facility] [id number] [place] [address] Jan, [facility] [place] [facility] [address] [id number] [place] [address] 78[address] Jan, [facility] [place] [facility] [id number] [address] Jan, [facility] [id number] [address] Jan, [facility] [id number] [address] [address] Dec, [facility] [id number] [address] Dec, [facility] [id number] [place] [address] Dec, [facility] [id number] [place] [address]- 9566 Nov, [facility] [id number] [place] [address]- [address]14 Nov, [facility] [id number] [place] [address]- [address]342 Oct, [facility] [id number] [address] 4797 Oct, [facility] [id number] [place] [address]- 8585 Oct, [facility] [id number] [address] 75[address] Oct, [facility] [id number] [address]47 Oct, [facility] [id number] [address] Oct, IMMUNIZATIONS No Known Immunizations SOCIAL HISTORY Never Assessed 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
--- OUTSIDE RECORDS SUMMARY | 2018-05-15 07:20 | XMS REPORT ---
Author NIYAH Baumann Organization [employer] Address Unknown Phone Unavailable Care Team Providers Care Stablehand Name Role Phone NIYAH RODRÍGUEZ CP Unavailable [...]
--- OUTSIDE RECORDS SUMMARY | 2018-05-15 07:20 | XMS REPORT ---
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 Role Phone REGGIE BAEZA CP Unavailable Allergies, Adverse Reactions, Alerts Substance Reaction Event Type Sulfamethoxazole rash Drug Allergy Penicillin V Potassium rash Drug Allergy Problems Problem Type Condition Code Onset Dates Condition Status Assessment Bipolar 1 disorder F31.9 Active Assessment Schizoaffective disorder, unspecified F25.9 Active Assessment Major depressive disorder, single episode, unspecified F32.9 Active Problem GERD (gastroesophageal reflux disease) K21.9 Active Problem Depression F32.9 Active Problem Bipolar 1 disorder F31.9 Active Problem Joint pain of lower extremity M25.50 Active Problem Environmental allergies V15.09 Active Problem 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 Mar 13, 2015 1 tablet Flonase NDC 0 not defined Protonix [facility] [address]-46 20 MG Orally Once a day Feb 20, 2015 1 tablet Meloxicam [facility] [address]-58 7.5 MG Orally 2 times a day 1 tablet Citalopram Hydrobromide [facility] [address]-49 40 MG Orally Once a day 1 tablet ZyrTEC NDC 0 10 mg July 15, 2014 1 tablet by Oral route 1 time per day Procedures Procedure Coding System Code Date Office Visit, Est Pt., Level 4 CPT-4 29321 Apr 13, 2015 Vital Signs Date/Time: Apr 13, 2015 Cardiac Monitoring Heart Rate 96 bpm Weight 261.6 lbs Height 63 in BMI 46.34 Index Blood Pressure Diastolic 72 mmHg Blood Pressure Systolic 114 mmHg Results No Known Results Summary Purpose [employer] Submission
--- OUTSIDE RECORDS SUMMARY | 2018-05-15 07:20 | XMS REPORT ---
Author Author MONIQUE PRESLEY [facility] Address [address] [place] [address] Care Team Providers Care Enterprise Engineer Name Role Phone SAKINAMONIQUE Unavailable PROBLEMS Type Condition ICD9-CM Code KYY18-DN Code Onset Dates Condition Status SNOMED Code Problem Stress incontinence of urine N39.3 Active 50702939 Problem Neuropathy G62.9 Active 763872921 Problem Major depressive disorder, single episode, unspecified F32.9 Active 67422788 Problem Morbid (severe) obesity due to excess calories E66.01 Active 876838173 Problem Body mass index (BMI) of 45.0-49.9 in adult Z68.42 Active 128460985 Problem 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 Active 434784673 Problem Schizoaffective disorder, bipolar type F25.0 Active 47701891 Problem Primary osteoarthritis of left knee M17.12 Active 491266236 Problem Post-menopausal bleeding N95.0 Active 24112667 Problem Obstructive sleep apnea G47.33 Active 85503991 Problem Depression F32.9 Active 23987535 Problem Bipolar 1 disorder F31.9 Active 443352057 Problem Edema R60.9 Active 631544163 Problem GERD (gastroesophageal reflux disease) K21.9 Active 966205587 Problem Obesity E66.9 Active 241232992 Problem Joint pain of lower extremity M25.50 Active 47279977 Problem Environmental allergies Z91.09 Active 335748141 ALLERGIES Substance Reaction Event Type Date Status Sulfamethoxazole-Trimethoprim Unknown Drug Allergy Mar, Active Penicillin V Potassium rash Drug Allergy Mar, Active ENCOUNTERS Encounter Location Date Diagnosis [facility] [address] [facility] [id number] [address] Oct, [facility] [address] [facility] [id number] [address] August, Neuropathy G62.9 [facility] [address] [address] August, [facility] [id number] [place] [address] 99964- 5940 August, [facility] [address] [address] Jul, [facility] [id number] [place] [address] 23606- 1520 Jul, Primary osteoarthritis of left knee M17.12 [facility] [id number] [place] [address] 98197- 5796 Jul, Schizoaffective disorder, bipolar type F25.0 and 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 [facility] [id number] [place] [address] 86946- 7508 Jul, Prediabetes R73.03 ; Primary osteoarthritis of left knee M17.12 ; GERD (gastroesophageal reflux disease) K21.9 ; Bipolar 1 disorder F31.9 ; Depression F32.9 ; Environmental allergies Z91.09 ; Neuropathy G62.9 ; Edema R60.9 ; Body mass index (BMI) of 45.0-49.9 in adult Z68.42 and Morbid ( severe) obesity due to excess calories E66.01 [facility] [address] [address] 0[address] Jul, [facility] [id number] [place] [address] 42997- 8103 Jun, [facility] [id number] [place] [address] 42246- 6055 Jun, [facility] [id number] [place] [address] 52936- 3146 Jun, Wound of right breast, initial encounter S21.001A and Prediabetes R73.03 [facility] [id number] [place] [address] 30290- 2347 Jun, [facility] [id number] [address] 0815 May, GERD (gastroesophageal reflux disease) K21.9 [facility] [id number] [place] [address] 03357- 3923 May, Primary osteoarthritis of left knee M17.12 [facility] [id number] [place] [address] 76348- 2690 May, Schizoaffective disorder, bipolar type F25.0 and 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 [facility] [id number] [place] [address] 62880- 4524 May, Left medial knee pain M25.562 ; GERD (gastroesophageal reflux disease) K21.9 ; Depression F32.9 ; Neuropathy G62.9 ; Obesity E66.9 ; Prediabetes R73.03 and Edema R60.9 [facility] [id number] [place] [address] 63053- 8671 14 Mar, 2017 [facility] [id number] [place] [address] 20381- 6890 08 Mar, 2017 [facility] [id number] [place] [address] 08956- 4108 05 Mar, 2017 Post-menopausal bleeding N95.0 and BMI 50.0-59.9, adult Z68.43 [facility] [id number] [place] [address] 69087- 8311 Mar, [facility] [id number] [place] [address] 27814- 7970 27 Mar, 2017 Schizoaffective disorder, bipolar type F25.0 and 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 [facility] [id number] [place] [address] 81912- 1238 27 Mar, 2017 [facility] [id number] [place] [address] 27979- 6452 16 Mar, 2017 [facility] [id number] [place] [address] 79911- 6089 Mar, Post-menopausal bleeding N95.0 ; Screening breast examination Z12.31 ; Screen for STD (sexually transmitted disease) Z11.3 ; Obesity E66.9 ; Family history of ovarian cancer Z80.41 and Family history of cervical cancer Z80.49 [facility] [id number] [place] [address] 15104- 9889 Mar, [facility] [address] 11345- 4917 Mar, [facility] [address] 73641- 3597 Jan, Schizoaffective disorder, bipolar type F25.0 and 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 [facility] [address] 61009- 0154 Jan, Schizoaffective disorder, bipolar type F25.0 [facility] [id number] [place] [address] 75831- 8970 Jan, [facility] [id number] [place] [address] 63336- 0388 Jan, Prediabetes R73.03 and Obesity E66.9 [facility] [id number] [place] [address] 34426- 9817 Jan, Encounter for immunization Z23 [facility] [id number] [place] [address] 48022- 0927 Jan, [facility] [id number] [place] [address] 44862- 8605 Dec, [facility] [address] 68740- 8889 Dec, [facility] [id number] [place] [address] 22031- 6588 Nov, Neuropathy G62.9 [facility] [address] 39996- 2058 Nov, [facility] [id number] [place] [address] 14945- 2767 Nov, Schizoaffective disorder, bipolar type F25.0 [facility] [id number] [place] [address] 41755- 3100 Nov, 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 and Schizoaffective disorder, bipolar type F25.0 [facility] [id number] [place] [address] 85878- 5003 Oct, Schizoaffective disorder, bipolar type F25.0 ; 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 and 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 [facility] [id number] [place] [address] [id number] Oct, Dental caries K02.9 [facility] [id number] [place] [address] 76184- 2953 Sep, Neuropathy G62.9 [facility] [id number] [place] [address] 30169- 0080 Sep, [facility] [id number] [place] [address] 37483- 0889 Sep, Neuropathy G62.9 [facility] [id number] [place] [address] 04393- 4638 Jul, Schizoaffective disorder, depressive type F25.1 [facility] [id number] [place] [address] 48727- 9280 Jul, GERD (gastroesophageal reflux disease) K21.9 ; Joint pain of lower extremity M25.50 ; Environmental allergies Z91.09 ; Stress incontinence of urine N39.3 ; Neuropathy G62.9 ; Edema R60.9 and Acute pain of left knee M25.562 [facility] [id number] [place] [address] 61941- 7152 Jun, [facility] [address] [address] Jun, Dental examination Z01.20 [facility] [id number] [place] [address] 82377- 4445 Jun, [facility] [id number] [place] [address] 76162- 0682 May, [facility] [address] 80959- 8530 May, Bipolar 1 disorder F31.9 ; Joint pain of lower extremity M25.50 ; Environmental allergies Z91.09 ; Stress incontinence of urine N39.3 ; Major depressive disorder, single episode, unspecified F32.9 ; Dizzy R42 ; Schizoaffective disorder, unspecified F25.9 ; Neuropathy G62.9 ; Localized edema R60.0 and GERD (gastroesophageal reflux disease) K21.9 [facility] [id number] [place] [address] 75854- 3233 May, Schizoaffective disorder, depressive type F25.1 [facility] [id number] [place] [address] 25812- 2314 May, Environmental allergies Z91.09 and Major depressive disorder , single episode, unspecified F32.9 [facility] [id number] [place] [address] 29208- 9475 Mar, Dental caries K02.9 [facility] [id number] [place] [address] 64890- 3597 Mar, Dental caries on smooth surface penetrating into pulp K02.63 [facility] [id number] [place] [address] 98438 -4578 Mar, Peripheral edema R60.9 and Dry skin L85.3 [facility] [id number] [place] [address] 50275- 4415 Mar, [facility] [id number] [place] [address] 94661- 8765 Mar, Major depressive disorder, single episode, unspecified F32.9 [facility] [id number] [place] [address] 70358- 4596 09 Mar, 2016 Dental caries K02.9 [facility] [id number] [place] [address] 36081- 9381 07 Mar, 2016 Diabetes mellitus with complication E11.8 ; Urinary frequency R35.0 ; Stress incontinence of urine N39.3 ; Joint pain of lower extremity M25.50 ; Obesity E66.9 ; Environmental allergies Z91.09 ; Depression F32.9 ; Schizoaffective disorder, unspecified F25.9 ; Vaginal discharge N89.8 and Vaginal candidiasis B37.3 [facility] [address] 55927- 3665 20 Jan, 2016 Schizoaffective disorder, unspecified F25.9 [facility] [address] 69618- 7852 17 Jan, 2016 [facility] [address] 33602- 8090 30 Dec, 2015 [facility] [address] 22138- 7633 19 Dec, 2015 Dental caries K02.9 [facility] [id number] [place] [address] 89747- 0092 14 Dec, 2015 Obesity E66.9 ; Edema R60.9 ; Depression F32.9 ; Bipolar 1 disorder F31.9 ; 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 ; Environmental allergies Z91.09 ; Shortness of breath R06.02 ; Gastroesophageal reflux disease with esophagitis K21.0 ; Other chronic pain G89.29 ; Pain in right knee M25.561 ; Pain in left knee M25.562 and Encounter for immunization Z23 [facility] [id number] [place] [address] 09069- 2518 08 Nov, 2015 Dental caries K02.9 [facility] [address] 95933- 2200 Oct, Schizoaffective disorder, unspecified F25.9 [facility] [address] [place] [address] 26485- 8671 Oct, Dental examination Z01.20 [facility] [address] [place] [address] 74054- 6825 20 Sep, 2015 Dental examination Z01.20 and Dental caries K02.9 [facility] [id number] [place] [address] 23070- 3097 13 Sep, 2015 [facility] [id number] [place] [address] 47548- 5933 Sep, [facility] [id number] [place] [address] 61539- 1112 Sep, [facility] [id number] [place] [address] 67551- 0297 Sep, Schizoaffective disorder, unspecified F25.9 [facility] [id number] [place] [address] 44385- 5030 August, Bipolar disorder, unspecified F31.9 [facility] [id number] [place] [address] 63662- 6748 Jul, Edema R60.9 and Obesity E66.9 [facility] [id number] [place] [address] 48597- 8322 Jul, Edema R60.9 [facility] [id number] [place] [address] 07793- 2758 Jul, Edema R60.9 [facility] [id number] [place] [address] 82611 -7616 Jul, Edema R60.9 [facility] [id number] [place] [address] 32935- 8318 18 Jul, 2015 [facility] [id number] [place] [address] 52858- 4735 Jul, [facility] [id number] [place] [address] 48625- 4709 24 Jun, 2015 Environmental allergies V15.09 and Cough R05 [facility] [id number] [place] [address] 33055- 3648 17 Jun, 2015 Environmental allergies V15.09 ; Edema R60.9 and Cough R05 [facility] [address] 25446 -3232 12 Jun, 2015 Bronchospasm J98.01 [facility] [address] 93356- 1262 10 Jun, 2015 [facility] [address] 89085- 7609 Jun, [facility] [id number] [place] [address] 00853- 9235 08 Jun, 2015 Environmental allergies V15.09 ; Bipolar 1 disorder F31.9 ; GERD (gastroesophageal reflux disease) K21.9 ; Depression F32.9 ; Joint pain of lower extremity M25.50 ; COPD (chronic obstructive pulmonary disease) J44.9 and Screening for diabetes mellitus Z13.1 [facility] [id number] [place] [address] 16376- 8830 Jun, [facility] [id number] [place] [address] 16958- 4162 May, [facility] [address] 37717- 0858 14 May, 2015 Schizoaffective disorder, unspecified F25.9 and Bipolar 1 disorder F31.9 [facility] [address] 74954- 8525 May, [facility] [id number] [place] [address] 29886- 6204 12 May, 2015 URI (upper respiratory infection) J06.9 ; Environmental allergies V15.09 and Cough R05 [facility] [id number] [place] [address] 89829- 3852 18 Mar, 2015 [facility] [address] 50406- 3739 Mar, Vaginal discharge N89.8 [facility] [address] 30161- 9301 14 Mar, 2015 Schizoaffective disorder, unspecified F25.9 ; Major depressive disorder, single episode, unspecified F32.9 and Bipolar 1 disorder F31.9 [facility] [address] 68265- 5123 Mar, [facility] [address] 51917- 2615 Mar, Bipolar 1 disorder F31.9 [facility] [address] 23487- 0378 Jan, [facility] [address] 04617- 8807 Jan, Allergic rhinitis J30.9 and Cough R05 [facility] [address] 67922- 6602 Jan, 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 ; Bipolar 1 disorder F31.9 ; GERD ( gastroesophageal reflux disease) K21.9 ; Depression F32.9 and Joint pain of lower extremity M25.50 [facility] [address] 75691- 8015 28 Dec, 2014 Encounter for immunization Z23 [facility] [address] 99925- 2266 Dec, Schizoaffective disorder, unspecified 295.70 ; Pain in joint , lower leg 719.46 ; Esophageal reflux 530.81 ; Bipolar 1 disorder 296.7 ; Depression 311 ; GERD (gastroesophageal reflux disease) 530.81 and Environmental allergies V15.09 [facility] [address] [id number] Nov, Dental examination V72.2 [facility] [id number] [place] [address] 88553- 6516 Nov, Acute bronchitis 466.0 [facility] [id number] [place] [address] 82268 2546 Nov, Schizoaffective disorder, unspecified 295.70 and Bipolar disorder, unspecified 296.80 [facility] [id number] [place] [address] [id number] Sep, Dental examination V72.2 [facility] [address] [id number] August, Dental examination V72.2 [facility] [id number] [place] [address] 31640 2546 August, Schizoaffective disorder, unspecified 295.70 [facility] [id number] [place] [address] 65977 2546 August, [facility] [id number] [place] [address] 03986 2546 August, Vomiting 787.03 [facility] [id number] [place] [address] 07400 2546 August, Vomiting and diarrhea 787.03 and High risk medication use V58.69 [facility] [id number] [place] [address] 62662- 1256 Jul, [facility] [id number] [place] [address] 31988 2546 Jul, [facility] [id number] [place] [address] 15011- 5106 Jul, [facility] [id number] [place] [address] 50581 2546 Jun, [facility] [id number] [place] [address] 27905- 6416 Jun, [facility] [address] [facility] [id number] [place] [address]- 5279 17 Jun, 2014 [facility] [place] [facility] [address] [id number] [place] [address]- 5447 17 Jun, 2014 [facility] [place] [facility] [address] [id number] [place]- 6256 16 Jun, 2014 [facility] [place] [facility] [address] [id number] [place] [address]- 6186 13 Jun, 2014 [facility] [place] [facility] [address] [id number] [place] [address]- 2523 Jun, 2014 [facility] [place] [facility] [address] [id number] [place] [address]- 5726 Jun, 2014 [facility] [place] [facility] [address] [id number] [place] [address]- 6195 Jun, 2014 [facility] [place] [facility] [address] [id number] [place] [address]- 3439 Mar, [facility] [place] [facility] [address] [id number] [place] [address]- 5216 Mar, [facility] [place] [facility] [address] [id number] [place] [address]- 5316 Mar, [facility] [place] [facility] [address] [id number] [place] [address]- 1069 Mar, [facility] [place] [facility] [address] [id number] [place] [address]- 2102 Mar, [facility] [place] [facility] [address] [id number] [place] [address]- 3124 Mar, [facility] [place] [facility] [address] [id number] [place] [address]- 7941 Mar, [facility] [place] [facility] [address] [id number] [place] [address]- 4589 Mar, [facility] [place] [facility] [address] [id number] [address]- 1633 Mar, [facility] [place] [facility] [address] [id number] [place] [address]- 4082 Mar, [facility] [place] [facility] [address] [id number] [place] [address]- 1493 Jan, [facility] [place] [facility] [address] [id number] [place] [address]- 5890 Jan, [facility] [place] [facility] [address] [id number] [place] [address]- 2246 Jan, [facility] [place] [facility] [address] [id number] [place] [address]- 3522 Jan, [facility] [place] [facility] [address] [id number] [place] [address]- 7990 Jan, [facility] [place] [facility] [address] [id number] [place] [address]- 1774 Jan, [facility] [place] [facility] [address] [id number] [address]- 5404 Jan, [facility] [place] [facility] [address] [id number] [place] [address]- 1587 Jan, [facility] [place] [facility] [address] [id number] [place] [address]- 5762 19 Dec, 2013 [facility] [place] [facility] [address] [id number] [place] [address]- 4245 19 Dec, 2013 [facility] [place] [facility] [address] [id number] [address]- 0793 15 Dec, 2013 [facility] [place] [facility] [address] [id number] [place] [address]- 6592 15 Dec, 2013 [facility] [place] [facility] [address] [id number] [place] [address]- 0435 15 Dec, 2013 [facility] [place] [facility] [address] [id number] [address]- 6201 15 Dec, 2013 [facility] [place] [facility] [address] [id number] [place] [address]- 0159 12 Dec, 2013 [facility] [place] [facility] [address] [id number] [place] [address]- 6050 Dec, [facility] [place] [facility] [address] [id number] [place] [address]- 9299 Dec, [facility] [place] [facility] [address] [id number] [place] [address]- 7274 Dec, [facility] [place] [facility] [address] [id number] [place] [address]- 9377 Nov, [facility] [place] [facility] [address] [id number] [place] [address]- 9711 Nov, [facility] [place] [facility] [address] [id number] [place] [address]- 0525 Nov, [facility] [place] [facility] [address] [id number] [place] [address]- 2907 Nov, [facility] [place] [facility] [address] [id number] [place] [address]- 1630 Oct, [facility] [place] [facility] [address] [id number] [place] [address] Oct, [facility] [place] [facility] [address] [id number] [place] [address] Oct, [facility] [place] [facility] [address] [id number] [place] [address] Oct, [facility] [place] [facility] [address] [id number] [place] [address] Sep, [facility] [place] [facility] [address] [id number] [place] [address] Sep, [facility] [place] [facility] [address] [id number] [place] [address] Sep, [facility] [place] [facility] [address] [id number] [place] [address] Sep, [facility] [place] [facility] [address] [id number] [place] [address] Sep, [facility] [place] [facility] [address] [id number] [place] [address] Sep, [facility] [place] [facility] [address] [id number] [place] [address] Sep, [facility] [place] [facility] [address] [id number] [place] [address] Sep, [facility] [place] [facility] [address] [id number] [place] [address] August, [facility] [place] [facility] [address] [id number] [place] [address] August, [facility] [place] [facility] [address] [id number] [place] [address] Jul, [facility] [place] [facility] [address] [id number] [place] [address] Jul, [facility] [place] [facility] [address] [id number] [place] [address] Jul, [facility] [place] [facility] [address] [id number] [place] [address] Jul, [facility] [place] [facility] [address] [id number] [place] [address] Jul, [facility] [place] [facility] [address] [id number] [place] [address]- [address] Jul, [facility] [place] [facility] [address] [id number] [place] [address] Jul, [facility] [place] [facility] [address] [id number] [place] [address] Jul, [facility] [place] [facility] [address] [id number] [place] [address] Jul, [facility] [place] [facility] [address] [id number] [place] [address] 07 Jul, 2013 [facility] [place] [facility] [address] [id number] [place] [address] 27 Jun, 2013 [facility] [place] [facility] [address] [id number] [place] [address] 27 Jun, 2013 [facility] [place] [facility] [address] [id number] [place] [address] 18 Jun, 2013 [facility] [place] [facility] [address] [id number] [place] [address] 18 Jun, 2013 [facility] [place] [facility] [address] [id number] [place] [address] 17 Jun, 2013 [facility] [place] [facility] [address] [id number] [place] [address] 17 Jun, 2013 [facility] [place] [facility] [address] [id number] [place] [address] 17 Jun, 2013 [facility] [place] [facility] [address] [id number] [place] [address] 17 Jun, 2013 [facility] [place] [facility] [address] [id number] [place] [address] 14 Jun, 2013 [facility] [place] [facility] [address] [id number] [place] [address] 14 Jun, 2013 [facility] [place] [facility] [address] [id number] [place] [address] 07 Jun, 2013 [facility] [place] [facility] [address] [id number] [place] [address] 8581 07 Jun, 2013 [facility] [place] [facility] [address] [id number] [place] [address] Jun, [facility] [place] [facility] [address] [id number] [place] [address] Jun, [facility] [place] [facility] [address] [id number] [place] [address] 17 Jun, 2013 [facility] [place] [facility] [address] [id number] [place] [address] 40[address] Jun, [facility] [address] [id number] [place] [address] May, [facility] [place] [facility] [address] [id number] [place] [address] 4609 May, [facility] [place] [facility] [address] [id number] [place] [address] May, [facility] [place] [facility] [address] [id number] [place] [address] May, [facility] [place] [facility] [address] [id number] [place] [address] Mar, [facility] [address] [id number] [place] [address] Mar, [facility] [address] [id number] [place] [address]70 Mar, [facility] [place] [facility] [address] [id number] [place] [address] 48[address] Mar, [facility] [place] [facility] [address] [id number] [place] [address] 2982 Mar, [facility] [place] [facility] [address] [id number] [place] [address] Mar, [facility] [place] [facility] [address] [id number] [place] [address] 3187 Mar, [facility] [place] [facility] [address] [id number] [place] [address] 279[address] Mar, [facility] [place] [facility] [address] [id number] [place] [address]226 Jan, [facility] [place] [facility] [address] [id number] [place] [address] Jan, [facility] [place] [facility] [address] [id number] [place] [address] 4736 18 Jan, 2013 [facility] [place] [facility] [address] [id number] [place] [address] Jan, [facility] [place] [facility] [address] [id number] [place] [address] 0536 Jan, [facility] [place] [facility] [address] [id number] [place] [address] 2545 Jan, [facility] [place] [facility] [address] [id number] [place] [address] 2547 Jan, [facility] [place] [facility] [address] [id number] [place] [address]83 Dec, [facility] [place] [facility] [address] [id number] [place] [address] 1564 Nov, [facility] [place] [facility] [address] [id number] [place] [address] 9854 Oct, [facility] [place] [facility] [address] [id number] [place] [address] 2659 Oct, [facility] [place] [facility] [address] [id number] [place] [address] Sep, [facility] [place] [facility] [address] [id number] [place] [address] 3705 Sep, [facility] [place] [facility] [address] [id number] [address] Sep, [facility] [place] [facility] [address] [id number] [place] [address] 254 August, [facility] [place] [facility] [address] [id number] [place] [address] 0256 Jun, [facility] [place] [facility] [address] [id number] [place] [address] 0387 Jun, [facility] [place] [facility] [address] [id number] [place] [address]- 2546 15 Jun, 2012 [facility] [place] [facility] [address] [id number] [place] [address]149 15 Jun, [address] [facility] [address] [id number] [place] [address] 5456 13 Jun, 2012 [facility] [place] [facility] [address] [id number] [place] [address]- 0566 12 Jun, 2012 [facility] [address] [id number] [place] [address]- 6346 07 Jun, 2012 [facility] [place] [facility] [address] [id number] [place] [address]- 6892 31 May, 2012 [facility] [address] [id number] [place] [address]246 May, [facility] [address] [id number] [place] [address]30 14 May, [address] [facility] [address] [id number] [place] [address] [address] May, [facility] [address] [id number] [place] [address] 2748 May, [facility] [address] [id number] [place] [address] 7093 08 May, 2012 [facility] [address] [id number] [place] [address] 5684 May, [facility] [address] [id number] [place] [address]- [address] Mar, [facility] [address] [id number] [place] [address] 9192 Mar, [facility] [place] [facility] [address] [id number] [place] [address]22 Mar, [facility] [place] [facility] [address] [id number] [place] [address] 3327 07 Mar, 2012 [facility] [place] [facility] [address] [id number] [place] [address]- 4463 Mar, [facility] [place] [facility] [address] [id number] [place] [address] 4950 Mar, [facility] [place] [facility] [address] [id number] [place] [address]- 3583 Mar, [facility] [place] [facility] [address] [facility] [id number] [place] Mar, [facility] [place] [facility] [address] [id number] [place] [address]- 7546 Mar, [facility] [place] [facility] [address] [id number] [place] [address]- 6160 Mar, [facility] [place] [facility] [address] [id number] [place] [address]- 3577 Mar, [facility] [place] [facility] [address] [id number] [place] [address]- 5973 Mar, [facility] [place] [facility] [address] [id number] [place] [address] 2047 Mar, [facility] [place] [facility] [address] [id number] [place] [address] 9017 Mar, [facility] [place] [facility] [address] [facility] [id number] [place] [address]- 1509 Mar, [facility] [place] [facility] [address] [id number] [place] [address]- 3596 Mar, [facility] [place] [facility] [address] [id number] [place] [address] 9743 Mar, [facility] [place] [facility] [address] [id number] [place] [address]- 8457 Mar, [facility] [place] [facility] [address] [facility] [id number] [place] [address] 7656 Mar, [facility] [place] [facility] [address] [facility] [id number] [place] [address] 8641 Jan, [facility] [place] [facility] [address]65[place] [address] Jan, [facility] [address]65100[place] [address] Jan, [facility] [address]00565100[place] [address] Jan, [facility] [id number] [address] Dec, [facility] [address] [id number] [address]- 2616 Dec, [facility] [id number] [place] [address]- 1719 Dec, [facility] [id number] [address]- [address] Nov, [facility] [id number] [address] 9566 Nov, [facility] [id number] [address]897 Oct, [facility] [id number] [address]- 4[address] Oct, [facility] [id number] [address]- [address] Oct, [facility] [address]65[address] [address]- 6946 Oct, [facility] [address] [id number] [address]- 235[address] Oct, [facility] [address] [id number] [address]- [address] Oct, IMMUNIZATIONS No Known Immunizations SOCIAL HISTORY Never Assessed REASON FOR VISIT SARAHI f/Kristen Lloyd MA PLAN OF CARE Activity Details Follow Up 2 Months Reason:SARAHI f/lili VITAL SIGNS Height 63 in 2017-03-27 Weight 281.9 lbs 2017-03-27 Heart Rate 82 bpm 2017-03-27 Respiratory Rate 20 2017-03-27 BMI 49.93 kg/m2 2017-03-27 Blood pressure systolic 104 mmHg 2017-03-27 Blood pressure diastolic 78 mmHg 2017-03-27 MEDICATIONS Medication Instructions Dosage Frequency Start Date End Date Duration Status Meloxicam 7.5 MG Orally 2 times a day 1 tablet 12h 30 Active Gabapentin 300 MG Orally Three times a day 1 capsule 8h 30 Active Celexa 40 MG Orally Once a day 1 tablet 24h Active Protonix 20 MG Orally Once a day 1 tablet 24h 30 Active ZyrTEC 10 mg orally Once a day 1 tablet by Oral route 1 time per day 24h Active Hydrochlorothiazide 50 MG TAKE ONE TABLET BY MOUTH ONCE DAILY 30 Active MetFORMIN HCl ER 500 mg Orally Once a day 1 tablet with evening meal 24h Jan, 90 days Active Risperdal 1 MG Orally 2 times a day 1 tablet 12h Active Lamictal 150 MG Orally Once a day 1 tablet 24h Jan, Active Flonase 50 MCG/ACT Nasally Once a day 1 spray in each nostril 24h 30 Active Albuterol Sulfate HFA 108 (90 Base) MCG/ACT Inhalation every 4 hrs 2 puffs as needed 4h May, Active Albuterol Sulfate 0.63 MG/3ML Inhalation every 4 hrs 3 ml as needed 4h Jun, Active RESULTS No Results PROCEDURES No Known [...]
--- OUTSIDE RECORDS SUMMARY | 2018-05-15 07:20 | XMS REPORT ---
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
--- OUTSIDE RECORDS SUMMARY | 2018-05-15 07:22 | XMS REPORT ---
Author NIYAH Baumann Organization [employer] Address Unknown Phone Unavailable Care Team Providers Care Windows 7 Deployment Lead Name Role Phone NIYAH RODRÍGUEZ CP Unavailable [...] by Oral route 1 time per day Results No Known Results Summary Purpose [employer] Submission
--- OUTSIDE RECORDS SUMMARY | 2018-05-15 07:22 | XMS REPORT ---
Author Author DANIEL VIVEROS Organization [employer] Address Unknown Phone Unavailable Care Team Providers Care Accounts Payable Clerk Name Role Phone DANIEL VIVEROS CP Unavailable Allergies, Adverse Reactions, Alerts Substance [...] Start Date End Date Status Dosage Flonase NDC 0 not defined Citalopram Hydrobromide [facility] [address]-91 40 MG Orally Once a day 1 tablet Lamictal [facility] [address]-06 25 MG Orally Twice a day Mar 13, 2015 1 tablet Albuterol Sulfate [facility] [address]-51 0.63 MG/3ML Inhalation every 4 hrs July 11, 2015 3 ml as needed Protonix [facility] 65491513629 20 MG Orally Once a day 1 tablet Risperdal [facility] [address]-60 1 MG Orally TAKE ONE TABLET BY MOUTH TWICE DAILY Meloxicam [facility] 37994468226 7.5 MG Orally 2 times a day 1 tablet ZyrTEC [facility] 93791983896 10 mg orally Once a day 1 tablet by Oral route 1 time per day Procedures Procedure Coding System Code Date Office Visit, Est Pt., Level 3 CPT-4 96571 August 19, 2015 Vital Signs Date/Time: August 19, 2015 Temperature 98.8 F Weight 288.4 lbs Height 63 in BMI 51.08 Index Blood Pressure Diastolic 78 mmHg Blood Pressure Systolic 116 mmHg Cardiac Monitoring Heart Rate 80 bpm Results No Known Results Summary Purpose [employer] Submission
[2018-05-15 07:25] VITALS: BP 113/77
--- OUTSIDE RECORDS SUMMARY | 2018-05-15 07:25 | XMS REPORT ---
Author Author NIYAH Romano Organization [facility] Address [address] [place] [address] Care Team Providers Care Agricultural Systems Specialist Name Role Phone NIYAH Romano Unavailable PROBLEMS Type Condition ICD9-CM Code [id number] Code Onset Dates Condition Status SNOMED Code Problem Stress incontinence of urine N39.3 Active 17423008 Problem Neuropathy G62.9 Active 716919685 Problem Major depressive disorder, single episode, unspecified F32.9 Active 86795147 Problem Morbid (severe) obesity due to excess calories E66.01 Active 556434608 Problem Body mass index (BMI) of 45.0-49.9 in adult Z68.42 Active 514585180 Problem 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 Active 776571751 Problem Schizoaffective disorder, bipolar type F25.0 Active 74309905 Problem Primary osteoarthritis of left knee M17.12 Active 747078802 Problem Post-menopausal bleeding N95.0 Active 81315374 Problem Depression F32.9 Active 41901720 Problem Bipolar 1 disorder F31.9 Active 829343297 Problem Edema R60.9 Active 049122486 Problem GERD (gastroesophageal reflux disease) K21.9 Active 869633549 Problem Obesity E66.9 Active 783970720 Problem Joint pain of lower extremity M25.50 Active 34445378 Problem Environmental allergies Z91.09 Active 796244341 ALLERGIES No Information ENCOUNTERS Encounter Location Date Diagnosis [facility] [id number] [address] Oct, [facility] [id number] [place] [address] 33393- 8519 Jul, [facility] [id number] [address] Jul, Primary osteoarthritis of left knee M17.12 [place] [facility] [id number] [place] [address] 82002- 8719 Jul, Schizoaffective disorder, bipolar type F25.0 and 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 [facility] [id number] [place] [address] 61942- 7328 Jul, Prediabetes R73.03 ; Primary osteoarthritis of left knee M17.12 ; GERD (gastroesophageal reflux disease) K21.9 ; Bipolar 1 disorder F31.9 ; Depression F32.9 ; Environmental allergies Z91.09 ; Neuropathy G62.9 ; Edema R60.9 ; Body mass index (BMI) of 45.0-49.9 in adult Z68.42 and Morbid ( severe) obesity due to excess calories E66.01 [place] [facility] [id number] [place] [address] 01152- 5609 Jul, [address] 34488- 1192 Jun, [facility] [id number] [place] [address] 24198- 8897 Jun, [place] [address] 08189- 2819 Jun, Wound of right breast, initial encounter S21.001A and Prediabetes R73.03 [facility] [id number] [place] [address] 66489- 9322 Jun, [facility] [facility] [id number] [place] [address] 26323- 4077 May, GERD (gastroesophageal reflux disease) K21.9 [facility] [id number] [place] [address] 03353- 8973 May, Primary osteoarthritis of left knee M17.12 [facility] [id number] [place] [address] 99763- 3004 May, Schizoaffective disorder, bipolar type F25.0 and 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 [facility] [id number] [place] [address] 56154- 1388 May, Left medial knee pain M25.562 ; GERD (gastroesophageal reflux disease) K21.9 ; Depression F32.9 ; Neuropathy G62.9 ; Obesity E66.9 ; Prediabetes R73.03 and Edema R60.9 [place] [id number] [place] [address] 60481- 1767 Mar, [place] [address] 56645- 0844 Mar, [address] 85906- 8553 Mar, Post-menopausal bleeding N95.0 and BMI 50.0-59.9, adult Z68.43 [id number] [place] [address] 51086- 6042 Mar, [address] 99235- 2900 Mar, Schizoaffective disorder, bipolar type F25.0 and Methamphetamine abuse in remission F15.[address] 51865- 5995 Mar, [place] [id number] [place] [address] 54122- 9143 Mar, [id number] [place] [address] 76905- 7351 Mar, Post-menopausal bleeding N95.0 ; Screening breast examination Z12.31 ; Screen for STD (sexually transmitted disease) Z11.3 ; Obesity E66.9 ; Family history of ovarian cancer Z80.41 and Family history of cervical cancer Z80.49 [place] [id number] [place] [address] 50084- 9053 Mar, [id number] [place] [address] 54991- 2451 Mar, [facility] [id number] [place] [address] 31156- 6713 Jan, Schizoaffective disorder, bipolar type F25.0 and 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 [facility] [id number] [place] [address] 57567- 7161 Jan, Schizoaffective disorder, bipolar type F25.0 [facility] [id number] [place] [address] 97173- 9930 Jan, [facility] [id number] [place] [address] 13808- 3690 Jan, Prediabetes R73.03 and Obesity E66.9 [facility] [id number] [place] [address] 61530- 9678 Jan, Encounter for immunization Z23 [facility] [id number] [place] [address] 60910- 4505 Jan, [facility] [id number] [place] [address] 30059- 5769 Dec, [facility] [id number] [place] [address] 58206- 2374 Dec, [facility] [id number] [place] [address] 46566- 9902 Nov, Neuropathy G62.9 [facility] [id number] [place] [address] 42280- 9585 Nov, [facility] [id number] [place] [address] 86314- 2619 Nov, Schizoaffective disorder, bipolar type F25.0 [facility] [id number] [place] [address] 15421- 0882 Nov, Other custodial (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 Z79.899 and Schizoaffective disorder, bipolar type F25.0 [facility] [id number] [place] [address] 72021- 9199 Oct, Schizoaffective disorder, bipolar type F25.0 ; Other custodial (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 Z79.899 and 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 [facility] [id number] [place] [address] [id number] Oct, Dental caries K02.9 [facility] [id number] [place] [address] 89547- 4579 Sep, Neuropathy G62.9 [facility] [address] 36796- 3718 Sep, [place] [address] 51166- 1683 Sep, Neuropathy G62.9 [facility] [id number] [place] [address] 42355- 7536 Jul, Schizoaffective disorder, depressive type F25.1 [facility] [id number] [place] [address] 30704- 4673 Jul, GERD (gastroesophageal reflux disease) K21.9 ; Joint pain of lower extremity M25.50 ; Environmental allergies Z91.09 ; Stress incontinence of urine N39.3 ; Neuropathy G62.9 ; Edema R60.9 and Acute pain of left knee M25.562 [facility] [id number] [place] [address] 58448- 0353 Jun, [facility] [id number] [place] [address] [id number] Jun, Dental examination Z01.20 [facility] [id number] [place] [address] 15063- 4240 Jun, [facility] [id number] [place] [address] 47416- 8854 May, [facility] [id number] [place] [address] 33098- 0437 May, Bipolar 1 disorder F31.9 ; Joint pain of lower extremity M25.50 ; Environmental allergies Z91.09 ; Stress incontinence of urine N39.3 ; Major depressive disorder, single episode, unspecified F32.9 ; Dizzy R42 ; Schizoaffective disorder, unspecified F25.9 ; Neuropathy G62.9 ; Localized edema R60.0 and GERD (gastroesophageal reflux disease) K21.9 [place] [address] 71022- 1672 May, Schizoaffective disorder, depressive type F25.1 [place] [address] 07291- 7418 May, Environmental allergies Z91.09 and Major depressive disorder , single episode, unspecified F32.9 [place] [address] 38483- 3705 Mar, Dental caries K02.9 [place] [address] 70970- 9892 Mar, Dental caries on smooth surface penetrating into pulp K02.63 [facility] [address] 84552 -2760 Mar, Peripheral edema R60.9 and Dry skin L85.3 [place] [address] 49003- 8856 Mar, [place] [address] 12722- 3869 Mar, Major depressive disorder, single episode, unspecified F32.9 [place] [address] 26776- 9929 Mar, Dental caries K02.9 [place] [address] 05662- 9957 Mar, Diabetes mellitus with complication E11.8 ; Urinary frequency R35.0 ; Stress incontinence of urine N39.3 ; Joint pain of lower extremity M25.50 ; Obesity E66.9 ; Environmental allergies Z91.09 ; Depression F32.9 ; Schizoaffective disorder, unspecified F25.9 ; Vaginal discharge N89.8 and Vaginal candidiasis B37.3 [place] [address] 90120- 2315 Jan, Schizoaffective disorder, unspecified F25.9 [place] [address] 43521- 7920 Jan, [place] [address] 01088- 4998 30 Dec, 2015 [place] [address] 54863- 7708 19 Dec, 2015 Dental caries K02.9 [place] [address] 76492- 3105 14 Dec, 2015 Obesity E66.9 ; Edema R60.9 ; Depression F32.9 ; Bipolar 1 disorder F31.9 ; 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 ; Environmental allergies Z91.09 ; Shortness of breath R06.02 ; Gastroesophageal reflux disease with esophagitis K21.0 ; Other chronic pain G89.29 ; Pain in right knee M25.561 ; Pain in left knee M25.562 and Encounter for immunization Z23 [place] [address] 17538- 8144 Nov, Dental caries K02.9 [place] [address] 21711- 1564 Oct, Schizoaffective disorder, unspecified F25.9 [place] [address] 56671- 6962 Oct, Dental examination Z01.20 [place] [address] 84407- 0760 Sep, Dental examination Z01.20 and Dental caries K02.9 [place] [address] 05958- 2338 Sep, [facility] [id number] [place] [address] 37486- 0617 Sep, [facility] [address] 40562- 9369 Sep, [facility] [id number] [place] [address] 38598- 4549 Sep, Schizoaffective disorder, unspecified F25.9 [facility] [address] 86929- 2748 August, Bipolar disorder, unspecified F31.9 [address] [address] 50841- 9336 Jul, Edema R60.9 and Obesity E66.9 [place] [address] 50182- 6653 Jul, Edema R60.9 [facility] [address] 71972- 4328 Jul, Edema R60.9 [facility] [address] 58699 -8117 Jul, Edema R60.9 [facility] [id number] [place] [address] 53729- 6416 Jul, [facility] [id number] [place] [address] 97440- 6668 Jul, [facility] [id number] [place] [address] 63592- 0397 24 Jun, 2015 Environmental allergies V15.09 and Cough R05 [facility] [address] 66788- 2944 17 Jun, 2015 Environmental allergies V15.09 ; Edema R60.9 and Cough R05 [facility] [id number] [place] [address] 69984 -1734 12 Jun, 2015 Bronchospasm J98.01 [place] [address] 55042- 5147 10 Jun, 2015 [address] [address] 19623- 1669 Jun, [place] [address] 14088- 6217 08 Jun, 2015 Environmental allergies V15.09 ; Bipolar 1 disorder F31.9 ; GERD (gastroesophageal reflux disease) K21.9 ; Depression F32.9 ; Joint pain of lower extremity M25.50 ; COPD (chronic obstructive pulmonary disease) J44.9 and Screening for diabetes mellitus Z13.1 [place] [address] 79506- 3474 16 Jun, 2015 [place] [address] 47924- 0215 May, [place] [address] 05117- 8062 May, Schizoaffective disorder, unspecified F25.9 and Bipolar 1 disorder F31.9 [place] [address] 05227- 5831 May, [place] [address] 98009- 4921 May, URI (upper respiratory infection) J06.9 ; Environmental allergies V15.09 and Cough R05 [place] [address] 72369- 7751 18 Mar, 2015 [place] [address] 18361- 4752 15 Mar, 2015 Vaginal discharge N89.8 [place] [address] 20749- 0456 14 Mar, 2015 Schizoaffective disorder, unspecified F25.9 ; Major depressive disorder, single episode, unspecified F32.9 and Bipolar 1 disorder F31.9 [place] [id number] [place] [address] 48091- 8687 Mar, [place] [address] 95916- 6577 Mar, Bipolar 1 disorder F31.9 [place] [address] 24478- 7139 Jan, [place] [address] 80735- 5331 Jan, Allergic rhinitis J30.9 and Cough R05 [address] 64406- 3249 Jan, 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 ; Bipolar 1 disorder F31.9 ; GERD ( gastroesophageal reflux disease) K21.9 ; Depression F32.9 and Joint pain of lower extremity M25.50 [place] [address] 35543- 9467 Dec, Encounter for immunization Z23 [place] [address] 68110- 0403 Dec, Schizoaffective disorder, unspecified 295.70 ; Pain in joint , lower leg 719.46 ; Esophageal reflux 530.81 ; Bipolar 1 disorder 296.7 ; Depression 311 ; GERD (gastroesophageal reflux disease) 530.81 and Environmental allergies V15.09 [facility] [id number] [place] [address] [id number] Nov, Dental examination V72.2 [place] [id number] [place] [address] 66622- 6823 Nov, Acute bronchitis 466.0 [place] [address] 77532- 1519 Nov, Schizoaffective disorder, unspecified 295.70 and Bipolar disorder, unspecified 296.80 [facility] [id number] [place] [address] [id number] Sep, Dental examination V72.2 [facility] [address] [id number] [id number] August, Dental examination V72.2 [facility] [id number] [place] [address] 45668- 7936 August, Schizoaffective disorder, unspecified 295.70 [facility] [id number] [place] [address] 25628- 2486 August, [facility] [id number] [place] [address] 17027- 3246 August, Vomiting 787.03 [facility] [id number] [place] [address] 94307- 1056 August, Vomiting and diarrhea 787.03 and High risk medication use V58.69 [facility] [id number] [place] [address] 83488- 6186 Jul, [facility] [id number] [place] [address] 13148- 2520 Jul, [facility] [address] [place] [address] 29412- 7064 Jul, [facility] [address] [place] [address] 35707- 9328 Jun, [facility] [address] [address]- 5476 Jun, [facility] [address] [address]- 1436 Jun, [facility] [address] [address]- 7376 Jun, [facility] [id number] [place] [address] 93011- 5856 16 Jun, 2014 [facility] [address] [address]- 6536 Jun, [facility] [id number] [place] [address]- 1898 13 Jun, 2014 [facility] [address] [id number] [place] [address]- 3430 Jun, 2014 [facility] [place] [facility] [address] [id number] [place] [address]- 5083 Jun, 2014 [facility] [address] [id number] [place] 3287 Mar, [facility] [place] [facility] [address] [id number] [place] [address]- 3846 Mar, [facility] [place] [facility] [address] [id number] [place] [address]- 2678 Mar, [facility] [place] [facility] [address] [facility] [id number] [place] [address]- 8415 Mar, [facility] [place] [facility] [address] [facility] [id number] [place] [address]- 1147 Mar, [facility] [place] [facility] [address] [facility] [id number] [place] [address]- 7361 Mar, [facility] [place] [facility] [address] [facility] [id number] [place] [address]- 8341 Mar, [facility] [place] [facility] [address] [facility] [id number] [place] [address]- 0830 Mar, [facility] [place] [facility] [address] [id number] [place] [address]- 7247 Mar, [facility] [place] [facility] [address] [id number] [place] [address]- 5832 Mar, [facility] [place] [facility] [address] [facility] [id number] [place] [address]- 0396 Jan, [facility] [place] [facility] [address] [id number] [place] 4557 Jan, [facility] [place] [facility] [address] [facility] [id number] [place] [address]- 0395 Jan, [facility] [place] [facility] [address] [id number] [place] [address]- 2803 31 Jan, 2014 [facility] [place] [facility] [address] [id number] [place] [address]- 7850 14 Jan, 2014 [facility] [place] [facility] [address] [id number] [place] [address]- 6960 14 Jan, 2014 [facility] [place] [facility] [address] [id number] [place] [address]- 9369 Jan, [facility] [place] [facility] [address] [id number] [place] [address]- 1528 Jan, [facility] [place] [facility] [address] [id number] [place] [address]- 0889 19 Dec, 2013 [facility] [place] [facility] [address] [id number] [place] [address]- 6417 19 Dec, 2013 [facility] [place] [facility] [address] [id number] [place] [address]- 7767 15 Dec, 2013 [facility] [place] [facility] [address] [id number] [place] [address]- 6801 15 Dec, 2013 [facility] [place] [facility] [address] [id number] [place] [address]- 5714 15 Dec, 2013 [facility] [place] [facility] [address] [id number] [place] [address]- 2444 15 Dec, 2013 [facility] [place] [facility] [address] [id number] [place] [address]- 7927 12 Dec, 2013 [facility] [place] [facility] [address] [id number] [place] [address]- 3140 12 Dec, 2013 [facility] [place] [facility] [address] [id number] [place] [address]- 8738 03 Dec, 2013 [facility] [place] [facility] [address] [id number] [place] [address]- 0653 03 Dec, 2013 [facility] [place] [facility] [address] [id number] [place] [address]- 9508 Nov, [facility] [place] [facility] [address] [id number] [place] [address]- 7206 Nov, [facility] [place] [facility] [address] [id number] [place] [address]- 4081 Nov, [facility] [place] [facility] [address] [id number] [place] [address]- 3817 Nov, [facility] [place] [facility] [address] [id number] [place] [address]- 4943 Oct, [facility] [place] [facility] [address] [id number] [place] [address]- 1123 Oct, [facility] [place] [facility] [address] [id number] [place] [address]- 5578 Oct, [facility] [place] [facility] [address] [id number] [place] [address]- 6007 Oct, [facility] [place] [facility] [address] [id number] [place] [address]- 4313 Sep, [facility] [place] [facility] [address] [id number] [place] [address]- 7789 Sep, [facility] [place] [facility] [address] [id number] [place] [address]- 1286 Sep, [facility] [place] [facility] [address] [id number] [place] [address]- 3577 Sep, [facility] [place] [facility] [address] [id number] [place] [address]- 5264 Sep, [facility] [place] [facility] [address] [id number] [place] [address]- 1752 Sep, [facility] [place] [facility] [address] [id number] [place] [address]- 3101 Sep, [facility] [place] [facility] [address] [id number] [place] [address]- 9382 Sep, [facility] [place] [facility] [address] [id number] [place] [address]- 4626 August, [facility] [place] [facility] [address] [id number] [place] [address] August, [facility] [place] [facility] [address] [id number] [place] [address] Jul, [facility] [place] [facility] [address] [id number] [place] [address] Jul, [facility] [place] [facility] [address] [id number] [place] [address] Jul, [facility] [place] [facility] [address] [id number] [place] [address] Jul, [facility] [place] [facility] [address] [id number] [place] [address] Jul, [facility] [place] [facility] [address] [id number] [place] [address] Jul, [facility] [place] [facility] [address] [id number] [place] [address] Jul, [facility] [place] [facility] [address] [id number] [place] [address] Jul, [facility] [place] [facility] [address] [id number] [place] [address] Jul, [facility] [place] [facility] [address] [id number] [place] [address] Jul, [facility] [place] [facility] [address] [id number] [place] [address] Jun, [facility] [place] [facility] [address] [id number] [place] [address] Jun, [facility] [place] [facility] [address] [id number] [place] [address] Jun, [facility] [place] [facility] [address] [id number] [place] [address] 18 Jun, 2013 [facility] [place] [facility] [address] [id number] [place] [address] 17 Jun, 2013 [facility] [place] [facility] [address] [id number] [place] [address] 17 Jun, 2013 [facility] [place] [facility] [address] [id number] [place] [address] 17 Jun, 2013 [facility] [place] [facility] [address] [id number] [place] [address] 17 Jun, 2013 [facility] [place] [facility] [address] [id number] [place] [address] 14 Jun, 2013 [facility] [place] [facility] [address] [id number] [place] [address] 14 Jun, 2013 [facility] [place] [facility] [address] [id number] [place] [address] 07 Jun, 2013 [facility] [place] [facility] [address] [id number] [place] [address] Jun, [facility] [place] [facility] [address] [id number] [place] [address] Jun, [facility] [place] [facility] [address] [id number] [place] [address] Jun, [facility] [place] [facility] [address] [id number] [place] [address] Jun, [facility] [place] [facility] [address] [id number] [place] [address] Jun, [facility] [place] [facility] [address] [id number] [place] [address] May, [facility] [place] [facility] [address] [id number] [place] [address] May, [facility] [place] [facility] [address] [id number] [place] [address] May, [facility] [place] [facility] [address] [id number] [place] [address] May, [facility] [address] [id number] [place] [address] Mar, [facility] [address] [id number] [place] [address] Mar, [facility] [address] [id number] [place] [address] Mar, [facility] [address] [id number] [place] [address] Mar, [facility] [address] [id number] [place] [address] Mar, [facility] [address] [id number] [place] [address] Mar, [facility] [address] [id number] [place] [address] Mar, [facility] [address] [id number] [place] [address] Mar, [facility] [address] [id number] [place] [address] Jan, [facility] [address] [id number] [place] [address] Jan, [facility] [place] [facility] [address] [id number] [place] [address] Jan, [facility] [address] [id number] [place] [address] Jan, [facility] [place] [facility] [address] [id number] [place] [address] Jan, [facility] [place] [facility] [address] [id number] [place] [address] Jan, [facility] [place] [facility] [address] [id number] [place] [address] Jan, [facility] [address] [id number] [place] [address] Dec, [facility] [place] [facility] [address] [id number] [place] [address] Nov, [facility] [place] [facility] [address] [id number] [place] [address] Oct, [facility] [place] [facility] [address] [id number] [place] [address] Oct, [facility] [place] [facility] [address] [id number] [place] [address] Sep, [facility] [place] [facility] [address] [id number] [place] [address] Sep, [facility] [place] [facility] [address] [id number] [place] [address] Sep, [facility] [place] [facility] [address] [id number] [place] [address] August, [facility] [place] [facility] [address] [id number] [place] [address] 164[address] Jun, [facility] [place] [facility] [address] [id number] [place] [address] Jun, [facility] [place] [facility] [address] [id number] [place] [address] Jun, [facility] [place] [facility] [address] [id number] [place] [address] Jun, [facility] [place] [facility] [address] [id number] [place] [address] Jun, [facility] [place] [facility] [address] [id number] [place] [address] Jun, [facility] [place] [facility] [address] [id number] [place] [address] Jun, [facility] [place] [facility] [address] [id number] [place] [address] May, [facility] [address] [id number] [place] [address] May, [facility] [address] [id number] [place] [address] May, [facility] [address] [id number] [place] [address] May, [facility] [address] [id number] [place] [address] May, [facility] [address] [id number] [place] [address] May, [facility] [address] [id number] [place] [address] May, [facility] [address] [id number] [place] [address] Mar, [facility] [address] [id number] [place] [address] Mar, [facility] [address] [id number] [place] [address] Mar, [facility] [address] [id number] [place] [address] Mar, [facility] [address] [id number] [place] [address] Mar, [facility] [address] [id number] [place] [address]60 Mar, [facility] [place] [facility] [address] [id number] [place] [address] Mar, [facility] [place] [facility] [address] [id number] [place] [address] Mar, [facility] [address] [id number] [place] [address] Mar, [facility] [place] [facility] [address] [id number] [place] [address] 47[address] Mar, [facility] [place] [facility] [address] [id number] [place] [address] 288[address] Mar, [facility] [place] [facility] [address] [id number] [place] [address] 65[address] Mar, [facility] [place] [facility] [id number] [place] [address], [place] [address] Mar, [facility] [place] [facility] [address] [id number] [place] [address]- 7868 Mar, [facility] [place] [facility] [address] [id number] [place] [address] Mar, [facility] [place] [facility] [address] [facility] [id number] [place] [address] Mar, [facility] [place] [facility] [address] [id number] [place] [address]704 Mar, [facility] [place] [facility] [address] [id number] [place] [address]991 Mar, [facility] [place] [facility] [address] [id number] [place] [address] Mar, [facility] [place] [facility] [address] [facility] [id number] [place] [address] 1360 Jan, [facility] [place] [facility] [address] [id number] [place] [address] Jan, [facility] [place] [facility] [address] [id number] [place] [address]- 8626 Jan, [facility] [place] [facility] [address] [id number] [place] [address] 279[address] Jan, [facility] [place] [facility] [address] [id number] [place] [address] Dec, [facility] [place] [facility] [address] [id number] [place] [address] Dec, [facility] [id number] [place] [address] Dec, [facility] [id number] [place] [address] Nov, [facility] [id number] [place] [address] Nov, [facility] [id number] [place] [address]- 0768 Oct, [facility] [id number] [place] [address]- [address]14 Oct, [facility] [id number] [place] [address] Oct, [facility] [id number] [place] [address] Oct, [facility] [id number] [place] [address]255 Oct, [facility] [id number] [place] [address]- 6070 Oct, IMMUNIZATIONS No Known Immunizations SOCIAL HISTORY Never Assessed REASON FOR VISIT 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
[2018-05-15] MEDS ORDERED: MIDAZOLAM 2 MG/2 ML (VERSED) VIAL ONE (07:26)
[2018-05-15] MEDS ORDERED: proPOfol 200 MG/20 ML (DIPRIVAN) VIAL IV ONE ×2 (07:26→07:59)
--- OUTSIDE RECORDS SUMMARY | 2018-05-15 07:26 | XMS REPORT ---
Author Author SAKINA MONIQUE [facility] Address [address] [place] [address] Care Team Providers Care Print Room Worker Name Role Phone SAKINA, MONIQUE Unavailable PROBLEMS Type Condition ICD9-CM Code UZA95-UT Code Onset Dates Condition Status SNOMED Code Problem Stress incontinence of urine N39.3 Active 91830326 Problem Neuropathy G62.9 Active 594252044 Problem Major depressive disorder, single episode, unspecified F32.9 Active 39943682 Problem Morbid (severe) obesity due to excess calories E66.01 Active 162261312 Problem Body mass index (BMI) of 45.0-49.9 in adult Z68.42 Active 214899618 Problem 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 Active 340018508 Problem Schizoaffective disorder, bipolar type F25.0 Active 78078007 Problem Primary osteoarthritis of left knee M17.12 Active 406842384 Problem Post-menopausal bleeding N95.0 Active 91442657 Problem Depression F32.9 Active 02320539 Problem Bipolar 1 disorder F31.9 Active 980492661 Problem Edema R60.9 Active 198909236 Problem GERD (gastroesophageal reflux disease) K21.9 Active 799534508 Problem Obesity E66.9 Active 770502180 Problem Joint pain of lower extremity M25.50 Active 48248343 Problem Environmental allergies Z91.09 Active 652538976 ALLERGIES No Information ENCOUNTERS Encounter Location Date Diagnosis [facility] [address] [facility] [id number] [address] Jul, [facility] [address], [place] [address] Jul, [facility] [address] [facility] [id number], [place] [address] Jul, Prediabetes R73.03 ; Primary osteoarthritis of left knee M17.12 ; GERD (gastroesophageal reflux disease) K21.9 ; Bipolar 1 disorder F31.9 ; Depression F32.9 ; Environmental allergies Z91.09 ; Neuropathy G62.9 ; Edema R60.9 ; Body mass index (BMI) of 45.0-49.9 in adult Z68.42 and Morbid ( severe) obesity due to excess calories E66.01 [place] [address] [address]- [address] Jul, [place] [address] [address]- [address] Jun, [place] [address] [address]- 8401 Jun, [place] [address] [address]- 9321 Jun, Wound of right breast, initial encounter S21.001A and Prediabetes R73.[address] [address]- [address] Jun, [place] [address] [address]41- 0665 May, GERD (gastroesophageal reflux disease) K21.[address] [address]- 4882 May, Primary osteoarthritis of left knee M17.12 [place] [address] [address]- 3706 May, Schizoaffective disorder, bipolar type F25.0 and Methamphetamine abuse in remission F15.[address] [address]- 7890 May, Left medial knee pain M25.562 ; GERD (gastroesophageal reflux disease) K21.9 ; Depression F32.9 ; Neuropathy G62.9 ; Obesity E66.9 ; Prediabetes R73.03 and Edema R60.[address] [address]- [address] 14 Mar, 2017 [facility] [address], [place] [address] Mar, [facility] [address], [place] [address] 111[address] 05 Mar, 2017 Post-menopausal bleeding N95.0 and BMI 50.0-59.9, adult Z68.43 [facility] [address] [place] [id number] [place] [address] 14425- 0539 Mar, [facility] [address] [place] [address] 63829- 1419 Mar, Schizoaffective disorder, bipolar type F25.0 and 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 [place] [address], [place] [address] Mar, [facility] [address] [id number], [place] [address] Mar, [facility] [address], [place] [address] Mar, Post-menopausal bleeding N95.0 ; Screening breast examination Z12.31 ; Screen for STD (sexually transmitted disease) Z11.3 ; Obesity E66.9 ; Family history of ovarian cancer Z80.41 and Family history of cervical cancer Z80.49 [place] [address], [place] [address] Mar, [facility] [address], [place] [address] Mar, [facility] [address], [place] [address] Jan, Schizoaffective disorder, bipolar type F25.0 and 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 [facility] [address], [place] [address] Jan, Schizoaffective disorder, bipolar type F25.0 [place] [address], [place] [address] Jan, [facility] [address] [place] [id number] [place] [address] 13062- 2866 Jan, Prediabetes R73.03 and Obesity E66.9 [facility] [address] [place] [id number] [place] [address] 74178- 1413 Jan, Encounter for immunization Z23 [facility] [address] [place] [id number] [place] [address] 09048- 2386 Jan, [facility] [address] [place] [id number] [place] [address] 46139- 4738 Dec, [facility] [address] [place] [id number] [place] [address] 21845- 0292 Dec, [facility] [address] [place] [id number] [place] [address] 77166- 9106 Nov, Neuropathy G62.9 [facility] [address] [place] [id number] [place] [address] 72432- 7382 Nov, [facility] [address] [place] [id number] [place] [address] 17181- 6828 Nov, Schizoaffective disorder, bipolar type F25.0 [facility] [address] [place] [id number] [place] [address] 41218- 0179 Nov, Other long term care administrator (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 Z79.899 and Schizoaffective disorder, bipolar type F25.0 [facility] [address] [place] [address] 31875- 7172 Oct, Schizoaffective disorder, bipolar type F25.0 ; Other snf (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 Z79.899 and 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 [facility] [address] [id number] Oct, Dental caries K02.9 [facility] [address] [place] [id number] [place] [address] 61553- 1902 Sep, Neuropathy G62.9 [place] [address] [place] [id number] [place] [address] 49022- 1520 Sep, [place] [address] [place] [id number] [place] [address] 793708- 0839 Sep, Neuropathy G62.9 [place] [address] [place] [id number] [place] [address] 78633- 2244 Jul, Schizoaffective disorder, depressive type F25.1 [place] [address] [place] [id number] [place] [address] 18155- 0144 Jul, GERD (gastroesophageal reflux disease) K21.9 ; Joint pain of lower extremity M25.50 ; Environmental allergies Z91.09 ; Stress incontinence of urine N39.3 ; Neuropathy G62.9 ; Edema R60.9 and Acute pain of left knee M25.562 [place] [address] [place] [id number] [place] [address] 11388- 7871 Jun, [facility] [address] [id number] Jun, Dental examination Z01.20 [place] [address] [place] [id number] [place] [address] 36525- 4428 Jun, [place] [address] [place] [id number] [place] [address] 77818- 1538 May, [place] [address] [place] [id number] [place] [address] 39990- 8909 May, Bipolar 1 disorder F31.9 ; Joint pain of lower extremity M25.50 ; Environmental allergies Z91.09 ; Stress incontinence of urine N39.3 ; Major depressive disorder, single episode, unspecified F32.9 ; Dizzy R42 ; Schizoaffective disorder, unspecified F25.9 ; Neuropathy G62.9 ; Localized edema R60.0 and GERD (gastroesophageal reflux disease) K21.9 [place] [address] [place] [id number] [place] [address] 10007- 9414 May, Schizoaffective disorder, depressive type F25.1 [place] [address] [place] [id number] [place] [address] 29086- 6935 May, Environmental allergies Z91.09 and Major depressive disorder , single episode, unspecified F32.9 [place] [address] 86021- 3053 Mar, Dental caries K02.9 [place] [address] 383770- 0550 Mar, Dental caries on smooth surface penetrating into pulp K02.63 [facility] [place] [address] [address] Mar, Peripheral edema R60.9 and Dry skin L85.3 [place] [address] 06013- 7498 Mar, [place] [address] 55678- 7705 Mar, Major depressive disorder, single episode, unspecified F32.9 [place] [address] 39669- 1377 Mar, Dental caries K02.9 [place] [address] [place] [id number] [place] [address] 91289- 4778 Mar, Diabetes mellitus with complication E11.8 ; Urinary frequency R35.0 ; Stress incontinence of urine N39.3 ; Joint pain of lower extremity M25.50 ; Obesity E66.9 ; Environmental allergies Z91.09 ; Depression F32.9 ; Schizoaffective disorder, unspecified F25.9 ; Vaginal discharge N89.8 and Vaginal candidiasis B37.3 [place] [address] [place] [id number] [place] [address] 19104- 1118 Jan, Schizoaffective disorder, unspecified F25.9 [place] [address] 90650- 3357 Jan, [place] [address] [place] [id number] [place] [address] 56245- 6364 30 Dec, 2015 [place] [address] 22963- 1284 19 Dec, 2015 Dental caries K02.9 [place] [address] 07745- 6994 14 Dec, 2015 Obesity E66.9 ; Edema R60.9 ; Depression F32.9 ; Bipolar 1 disorder F31.9 ; 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 ; Environmental allergies Z91.09 ; Shortness of breath R06.02 ; Gastroesophageal reflux disease with esophagitis K21.0 ; Other chronic pain G89.29 ; Pain in right knee M25.561 ; Pain in left knee M25.562 and Encounter for immunization Z23 [place] [address] 39279- 8027 Nov, Dental caries K02.9 [place] [address] 03955- 7620 Oct, Schizoaffective disorder, unspecified F25.9 [place] [address] 19120- 5246 Oct, Dental examination Z01.20 [place] [address] [place] [id number] [place] [address] 97720- 7897 Sep, Dental examination Z01.20 and Dental caries K02.9 [place] [address] [place] [id number] [place] [address] 66681- 3440 13 Sep, 2015 [place] [address] 25433- 6697 09 Sep, 2015 [place] [address] [place] [id number] [place] [address] 97148- 3209 07 Sep, 2015 [place] [address] 38869- 0838 Sep, Schizoaffective disorder, unspecified F25.9 [facility] [address] [place] [id number] [place] [address] 82779- 6461 August, Bipolar disorder, unspecified F31.9 [facility] [address] [place] [id number] [place] [address] 73235- 8415 Jul, Edema R60.9 and Obesity E66.9 [facility] [address] 44669- 6446 Jul, Edema R60.9 [facility] [address] 31328- 5521 Jul, Edema R60.9 [facility] [address] 61787 -4669 Jul, Edema R60.9 [facility] [address] 06913- 7812 Jul, [facility] [address] [place] [id number] [place] [address] 43858- 4646 Jul, [facility] [address] 90904- 0452 24 Jun, 2015 Environmental allergies V15.09 and Cough R05 [facility] [address] [place] [id number] [place] [address] 57761- 7640 Jun, Environmental allergies V15.09 ; Edema R60.9 and Cough R05 [facility] [address] [place] [id number] [place] [address] 17399 -9015 12 Jun, 2015 Bronchospasm J98.01 [facility] [address] 45808- 7771 10 Jun, 2015 [facility] [address] 82948- 6267 Jun, [facility] [address] [place] [id number] [place] [address] 78640- 3585 08 Mar, 2016 Environmental allergies V15.09 ; Bipolar 1 disorder F31.9 ; GERD (gastroesophageal reflux disease) K21.9 ; Depression F32.9 ; Joint pain of lower extremity M25.50 ; COPD (chronic obstructive pulmonary disease) J44.9 and Screening for diabetes mellitus Z13.1 [place] [address] [place] [id number] [place] [address] 77264- 7921 16 Jun, 2015 [place] [address] 23718- 0804 May, [place] [address] 36783- 9348 May, Schizoaffective disorder, unspecified F25.9 and Bipolar 1 disorder F31.9 [place] [address] 27195- 6023 May, [address] 99773- 1943 May, URI (upper respiratory infection) J06.9 ; Environmental allergies V15.09 and Cough R05 [place] [address] 81985- 1941 18 Mar, 2015 [place] [address] 72786- 7776 Mar, Vaginal discharge N89.8 [place] [address] 17303- 1401 14 Mar, 2015 Schizoaffective disorder, unspecified F25.9 ; Major depressive disorder, single episode, unspecified F32.9 and Bipolar 1 disorder F31.9 [place] [address] 72542- 9665 Mar, [place] [address] 33876- 8153 Mar, Bipolar 1 disorder F31.9 [place] [address] 86965- 3043 Jan, [facility] [address] [place] [id number] [place] [address] 22717- 3671 Jan, Allergic rhinitis J30.9 and Cough R05 [place] [address] [place] [id number] [place] [address] 76654- 1712 Jan, 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 ; Bipolar 1 disorder F31.9 ; GERD ( gastroesophageal reflux disease) K21.9 ; Depression F32.9 and Joint pain of lower extremity M25.50 [place] [address] 45490- 2976 Dec, Encounter for immunization Z23 [place] [address] 95241- 6967 Dec, Schizoaffective disorder, unspecified 295.70 ; Pain in joint , lower leg 719.46 ; Esophageal reflux 530.81 ; Bipolar 1 disorder 296.7 ; Depression 311 ; GERD (gastroesophageal reflux disease) 530.81 and Environmental allergies V15.09 [facility] [address] [place] [id number] [place] [address] [id number] Nov, Dental examination V72.2 [place] [address] 07240- 3770 Nov, Acute bronchitis 466.0 [place] [address] 57310- 8053 Nov, Schizoaffective disorder, unspecified 295.70 and Bipolar disorder, unspecified 296.80 [facility] [address] [place] [id number] [place] [address] [id number] Sep, Dental examination V72.2 [facility] [address] [place] [id number] [place] [address] [id number] August, Dental examination V72.2 [facility] [address] 94079112- 1795 August, Schizoaffective disorder, unspecified 295.70 [facility] [address] 05487- 2706 August, [facility] [address], [place] [address]- 4085 August, Vomiting 787.03 [facility] [address], [place] [address]- 2429 August, Vomiting and diarrhea 787.03 and High risk medication use V58.69 [facility] [address], [place] [address]- 5064 Jul, [facility] [address], [place] [address]- 6742 Jul, [facility] [address] [place] [address] 44669- 0744 Jul, [facility] [address] [place] [address] 96440- 3098 Jun, [facility] [address] [place] [address] 68025- 9447 Jun, [facility] [address], [place] [address]- 3177 Jun, [facility] [address], [place] [address]- 3529 Jun, [facility] [address], [place] [address]- 1810 16 Jun, 2014 [facility] [address], [place] [address]- 1054 Jun, [facility] [address] [place] [id number] 3354 Jun, [facility] [address] 4980 Jun, [facility] [address], [place] [address]- 3095 Jun, [facility] [address]- 0836 Mar, [facility] [place] [facility] [address] [id number] [place] [address]- 9540 Mar, [facility] [place] [facility] [address] [id number] [place] 8969 Mar, [facility] [place] [facility] [address] [id number] [place] 2376 Mar, [facility] [place] [facility] [address] [id number] [place] [address]- 0276 Mar, [facility] [place] [facility] [address] [id number] [place] 2452 Mar, [facility] [place] [facility] [address] [id number] [place] [address]- 6805 Mar, [facility] [place] [facility] [address] [id number] [place] [address]- 5983 Mar, [facility] [place] [facility] [address] [id number] [place] [address]- 7364 Mar, [facility] [place] [facility] [address] [id number] [place] [address]- 1835 Mar, [facility] [place] [facility] [address] [facility] [id number] [place] [address]- 5219 Jan, [facility] [place] [facility] [address] [id number] [place] [address]- 5033 31 Jan, 2014 [facility] [place] [facility] [address] [id number] [place] [address]- 5154 31 Jan, 2014 [facility] [place] [facility] [address] [id number] [place] [address]- 5413 31 Jan, 2014 [facility] [place] [facility] [address] [id number] [place] [address]- 8310 Jan, [facility] [place] [facility] [address] [id number] [place] 5636 14 Jan, 2014 [facility] [place] [facility] [address] [id number] [place] [address]- 9453 Jan, [facility] [place] [facility] [address] [id number] [place] [address]- 6621 Jan, [facility] [place] [facility] [address] [id number] [place] [address]- 6561 19 Dec, 2013 [facility] [place] [facility] [address] [id number] [place] [address]- 9309 19 Dec, 2013 [facility] [place] [facility] [address] [id number] [place] [address]- 9968 15 Dec, 2013 [facility] [place] [facility] [address] [id number] [place] [address]- 1900 15 Dec, 2013 [facility] [place] [facility] [address] [id number] [place] [address]- 4535 15 Dec, 2013 [facility] [place] [facility] [address] [id number] [place] [address]- 8597 15 Dec, 2013 [facility] [place] [facility] [address] [id number] [place] [address]- 5568 Dec, [facility] [place] [facility] [address] [id number] [place] [address]- 4722 Dec, [facility] [place] [facility] [address] [id number] [place] [address]- 0601 Dec, [facility] [place] [facility] [address] [id number] [place] [address]- 9661 Dec, [facility] [place] [facility] [address] [id number] [place] [address]- 8800 Nov, [facility] [place] [facility] [address] [id number] [place] [address]- 7763 Nov, [facility] [place] [facility] [address] [id number] [place] [address]- 6372 Nov, [facility] [place] [facility] [address] [id number] [place] [address]- 5262 Nov, [facility] [place] [facility] [address] [id number] [place] [address]- 6657 Oct, [facility] [place] [facility] [address] [id number] [place] [address]- 8976 Oct, [facility] [place] [facility] [address] [id number] [place] [address]- 3108 Oct, [facility] [place] [facility] [address] [id number] [place] [address]- 0312 Oct, [facility] [place] [facility] [address] [id number] [place] [address]- 6590 Sep, [facility] [place] [facility] [address] [id number] [place] [address]- 1901 Sep, [facility] [place] [facility] [address] [id number] [place] [address]- 4307 Sep, [facility] [place] [facility] [address] [id number] [place] [address]- 8123 Sep, [facility] [place] [facility] [address] [id number] [place] [address]- 5735 Sep, [facility] [place] [facility] [address] [id number] [place] [address]- 5796 Sep, [facility] [place] [facility] [address] [id number] [place] [address]- 4043 Sep, [facility] [place] [facility] [address] [id number] [place] [address]- 5271 Sep, [facility] [place] [facility] [address] [id number] [place] [address]- 1996 August, [facility] [place] [facility] [address] [id number] [place] [address]- 2113 August, [facility] [place] [facility] [address] [id number] [place] [address]- 9057 Jul, [facility] [place] [facility] [address] [id number] [place] [address]- 2069 30 Jul, 2013 [facility] [address] [id number] [place] [address]- 2667 Jul, [facility] [place] [facility] [address] [id number] [place] [address]- 3216 Jul, [facility] [address] [id number] [place] [address]- 2984 Jul, [facility] [place] [facility] [address] [id number] [place] [address]- 4748 Jul, [facility] [address] [id number] [place] [address]- 6352 Jul, [facility] [address] [id number] [place] [address] Jul, [facility] [address] [id number] [place] [address] Jul, [facility] [address] [id number] [place] [address] Jul, [facility] [place] [facility] [address] [id number] [place] [address] Jun, [facility] [address] [id number] [place] [address] 27 Jun, 2013 [facility] [place] [facility] [address] [id number] [place] [address] 18 Jun, 2013 [facility] [place] [facility] [address] [id number] [place] [address] 18 Jun, 2013 [facility] [place] [facility] [address] [id number] [place] [address] 17 Jun, 2013 [facility] [place] [facility] [address] [id number] [place] [address]- [address] 17 Jun, 2013 [facility] [place] [facility] [address] [id number] [place] [address]- [address] 17 Jun, 2013 [facility] [place] [facility] [address] [id number] [place] [address]- [address] 17 Jun, 2013 [facility] [place] [facility] [address] [id number] [place] [address]- [address] 14 Jun, 2013 [facility] [place] [facility] [address] [id number] [place] [address]- [address] 14 Jun, 2013 [facility] [place] [facility] [address] [id number] [place] [address] Jun, [facility] [place] [facility] [address] [id number] [place] [address]- [address] Jun, [facility] [place] [facility] [address] [id number] [place] [address]- [address] Jun, [facility] [place] [facility] [address] [id number] [place] [address]- [address] Jun, [facility] [place] [facility] [address] [id number] [place] [address] Jun, [facility] [place] [facility] [address] [id number] [place] [address]- [address] Jun, [facility] [place] [facility] [address] [id number] [place] [address] May, [facility] [place] [facility] [address] [id number] [place] [address]- [address] May, [facility] [place] [facility] [address] [id number] [place] [address]- [address] May, [facility] [place] [facility] [address] [id number] [place] [address] May, [facility] [place] [facility] [address] [id number] [place] [address] Mar, [facility] [place] [facility] [address] [id number] [place] [address]- [address] Mar, [facility] [place] [facility] [address] [id number] [place] [address] Mar, [facility] [address] [id number] [place] [address] Mar, [facility] [place] [facility] [address] [id number] [place] [address] Mar, [facility] [place] [facility] [address] [id number] [place] [address] Mar, [facility] [place] [facility] [address] [id number] [place] [address] Mar, [facility] [place] [facility] [address] [id number] [place] [address] Mar, [facility] [place] [facility] [address] [id number] [place] [address] Jan, [facility] [place] [facility] [address] [id number] [place] [address] Jan, [facility] [place] [facility] [address] [id number] [place] [address] Jan, [facility] [place] [facility] [address] [id number] [place] [address] Jan, [facility] [place] [facility] [address] [id number] [place] [address] Jan, [facility] [place] [facility] [address] [id number] [place] [address] Jan, [facility] [place] [facility] [address] [id number] [place] [address] Jan, [facility] [place] [facility] [address] [id number] [place] [address] Dec, [facility] [place] [facility] [address] [id number] [place] [address] Nov, [facility] [place] [facility] [address] [id number], [place] [address] Oct, [facility] [place] [facility] [address] [id number] [place] [address] 16 Oct, 2012 [facility] [place] [facility] [address] [id number] [place] [address] Sep, [facility] [place] [facility] [address] [id number] [place] [address] Sep, [facility] [place] [facility] [address] [id number] [place] [address] Sep, [facility] [place] [facility] [address] [id number] [place] [address] August, [facility] [place] [facility] [address] [id number] [place] [address] Jun, [facility] [place] [facility] [address] [id number] [place] [address] Jun, [facility] [place] [facility] [address] [id number] [place] [address] 15 Jun, 2012 [facility] [place] [facility] [address] [id number] [place] [address] Jun, [facility] [place] [facility] [address] [id number] [place] [address] Jun, [facility] [place] [facility] [address] [id number] [place] [address] Jun, [facility] [place] [facility] [address] [id number] [place] [address] Jun, [facility] [place] [facility] [address] [id number] [place] [address] 25[address] May, [facility] [place] [facility] [address] [id number] [place] [address] 2546 May, [facility] [place] [facility] [address] [id number] [place] [address] 14 May, 2012 [facility] [place] [facility] [address] [id number] [place] [address]- [address]267 May, [facility] [address] [id number] [place] [address] May, [facility] [address] [id number] [place] [address] May, [facility] [address] [id number] [place] [address] May, [facility] [address] [id number] [place] [address] Mar, [facility] [address] [id number] [place] [address] Mar, [facility] [address] [id number] [place] [address] Mar, [facility] [address] [id number] [place] [address] Mar, [facility] [address] [id number] [place] [address] Mar, [facility] [address] [id number] [place] [address] Mar, [facility] [address] [id number] [place] [address] Mar, [facility] [address] [id number] [place] [address] Mar, [facility] [place] [facility] [address] [id number] [place] [address] Mar, [facility] [place] [facility] [address] [id number] [place] [address] Mar, [facility] [place] [facility] [address] [id number] [place] [address] Mar, [facility] [address] [id number] [place] [address]- [address] Mar, [facility] [place] [facility] [address] [id number] [place] [address] Mar, [facility] [place] [facility] [address] [id number] [place] [address]- [address] Mar, [facility] [place] [facility] [address] [id number] [place] [address]- [address] Mar, [facility] [place] [facility] [address] [id number] [place] [address] Mar, [facility] [place] [facility] [address] [id number] [place] [address] Mar, [facility] [place] [facility] [address] [id number] [place] [address]- [address] Mar, [facility] [place] [facility] [address] [id number] [place] [address]- [address] Mar, [facility] [place] [facility] [address] [id number] [place] [address]- [address] Jan, [facility] [place] [facility] [address] [id number] [place] [address] Jan, [facility] [place] [facility] [address] [id number] [place] [address]- [address] Jan, [facility] [place] [facility] [address] [id number] [place] [address]- [address] Jan, [facility] [place] [facility] [address] [id number] [place] [address]- [address] Dec, [facility] [place] [facility] [address] [id number] [place] [address]- [address] 18 Dec, 2011 [facility] [place] [facility] [address] [id number] [place] [address]- [address] 06 Dec, 2011 [facility] [place] [facility] [address] [id number] [place] [address]- [address] Nov, [facility] [place] [facility] [address] [id number] [place] [address] Nov, [facility] [address] [facility] [id number] [place] [address] Oct, [facility] [address] [facility] [id number], [place] [address] Oct, [facility] [address] [facility] [id number], [place] [address] Oct, [facility] [address] [facility] [id number], [place] [address] Oct, [facility] [address] [facility] [id number], [place] [address] Oct, [facility] [address] [facility] [id number], [place] [address] Oct, IMMUNIZATIONS No Known Immunizations SOCIAL HISTORY Never Assessed REASON FOR VISIT Lab (walk-in)--[facility] PLAN OF CARE VITAL SIGNS MEDICATIONS Unknown Medications RESULTS Name Result Date Reference Range A1C 2016-11-29 Hemoglobin A1c 6.0 4.8-5.6 LIPID PANEL 2016-11-29 Cholesterol, Total 162 100-199 Triglycerides 116 0-149 HDL Cholesterol 31 >39 VLDL Cholesterol Abad 23 5-40 LDL Cholesterol Calc 108 0-99 CMP 2016-11-29 Glucose, Serum 123 65-99 BUN 10 6-24 Creatinine, Serum 0.76 0.57-1.00 eGFR If NonAfricn Am 90 >59 eGFR If Africn Am 104 >59 BUN/Creatinine Ratio 13 9-23 Sodium, Serum 142 134-144 Potassium, Serum 3.8 3.5-5.2 Chloride, Serum 101 96-106 Carbon Dioxide, Total 24 18-29 Calcium, Serum 9.2 8.7-10.2 Protein, Total, Serum 6.2 6.0-8.5 Albumin, Serum 3.9 3.5-5.5 Globulin, Total 2.3 1.5-4.5 A/G Ratio 1.7 1.2-2.2 Bilirubin, Total 0.3 0.0-1.2 Alkaline Phosphatase, S 119 39-117 AST (SGOT) 27 0-40 ALT (SGPT) 30 0-32 PROCEDURES Procedure Date Ordered Result Body Site GLYCATED HEMOGLOBIN TEST Nov 29, 2016 COMPREHEN METABOLIC PANEL Nov 29, 2016 VENIPUNCT, ROUTINE* Nov 29, 2016 LIPID PANEL Nov 29, 2016 INSTRUCTIONS MEDICATIONS ADMINISTERED No Known Medications [...]
--- OUTSIDE RECORDS SUMMARY | 2018-05-15 07:27 | XMS REPORT | Continuity of Care Document ---
Author Author [facility] Address Unknown Phone Unavailable Allergies Active Description Code Type Severity Reaction Onset Reported/Identified Relationship to Patient Clinical Status Yes Penicillins Drug Allergy 11/17/2011 Yes Penicillins Drug Allergy N/A N/A 11/17/2011 Yes Sulfa (Sulfonamide Antibiotics) Drug Allergy N/A N/A 07/15/2013 Yes Penicillins [id number] Drug Allergy Mild RASH 05/09/2018 Yes Sulfa (Sulfonamide Antibiotics) [id number] Drug Allergy Mild RASH 2018 Medications There is no data. Problems Date Dx Coded Attending Type Code Diagnosis Diagnosed By 11/17/2011 V58.69 LONG-TERM ( CURRENT) USE OF OTHER MEDICATIONS 11/17/2011 V70.0 ROUTINE GENERAL MEDICAL EXAMINATION AT A HEALTH CARE FACILITY 11/17/2011 V58.69 LONG-TERM ( CURRENT) USE OF OTHER MEDICATIONS 11/17/2011 V70.0 ROUTINE GENERAL MEDICAL EXAMINATION AT A HEALTH CARE FACILITY 11/17/2011 AZUL LARSEN DO V58.69 LONG-TERM (CURRENT) USE OF OTHER MEDICATIONS 11/17/2011 AZUL LARSEN DO V70.0 ROUTINE GENERAL MEDICAL EXAMINATION AT A HEALTH CARE FACILITY 11/17/2011 AZUL LARSEN DO V58.69 LONG-TERM (CURRENT) USE OF OTHER MEDICATIONS 11/17/2011 AZUL LARSEN DO V70.0 ROUTINE GENERAL MEDICAL EXAMINATION AT A HEALTH CARE FACILITY 11/17/2011 KALIN MURPHY APRN V58.69 LONG-TERM (CURRENT) USE OF OTHER MEDICATIONS 11/17/2011 KALIN MURPHY APRN V70.0 ROUTINE GENERAL MEDICAL EXAMINATION AT A HEALTH CARE FACILITY 11/17/2011 V58.69 LONG-TERM ( CURRENT) USE OF OTHER MEDICATIONS 11/17/2011 V70.0 ROUTINE GENERAL MEDICAL EXAMINATION AT A HEALTH CARE FACILITY 11/17/2011 V58.69 LONG-TERM ( CURRENT) USE OF OTHER MEDICATIONS 11/17/2011 V70.0 ROUTINE GENERAL MEDICAL EXAMINATION AT A HEALTH CARE FACILITY 11/17/2011 V58.69 LONG-TERM ( CURRENT) USE OF OTHER MEDICATIONS 11/17/2011 V70.0 ROUTINE GENERAL MEDICAL EXAMINATION AT A HEALTH CARE FACILITY 11/17/2011 LARSEN DO AZUL K V58.69 LONG-TERM (CURRENT) USE OF OTHER MEDICATIONS 11/17/2011 LARSEN DO, AZUL K V70.0 ROUTINE GENERAL MEDICAL EXAMINATION AT A HEALTH CARE FACILITY 11/17/2011 KATHERINE COONEY KALIN GUZMAN V58.69 LONG-TERM (CURRENT) USE OF OTHER MEDICATIONS 11/17/2011 KATHERINE COONEY KALIN GUZMAN V70.0 ROUTINE GENERAL MEDICAL EXAMINATION AT A HEALTH CARE FACILITY 11/17/2011 KATHERINE COONEY KALIN YATESH V58.69 LONG-TERM (CURRENT) USE OF OTHER MEDICATIONS 11/17/2011 KATHERINE COONEY KALIN GUZMAN V70.0 ROUTINE GENERAL MEDICAL EXAMINATION AT A HEALTH CARE FACILITY 11/17/2011 SHENG FUNK APRN R V58.69 LONG-TERM (CURRENT) USE OF OTHER MEDICATIONS 11/17/2011 SHENG FUNK APRN R V70.0 ROUTINE GENERAL MEDICAL EXAMINATION AT A HEALTH CARE FACILITY 11/17/2011 KATHERINE COONEY KALIN YATESH V58.69 LONG-TERM (CURRENT) USE OF OTHER MEDICATIONS 11/17/2011 KATHERINE COONEY KALIN YATESH V70.0 ROUTINE GENERAL MEDICAL EXAMINATION AT A HEALTH CARE FACILITY 11/17/2011 CHAVA FAUSTIN AZUL K V58.69 LONG-TERM (CURRENT) USE OF OTHER MEDICATIONS 11/17/2011 LARSEN DO AZUL K V70.0 ROUTINE GENERAL MEDICAL EXAMINATION AT A HEALTH CARE FACILITY 11/17/2011 SANDI MACEDO APRN R V58.69 LONG-TERM (CURRENT) USE OF OTHER MEDICATIONS 11/17/2011 HELLEN COONEY SANDI R V70.0 ROUTINE GENERAL MEDICAL EXAMINATION AT A HEALTH CARE FACILITY 11/17/2011 LARSEN DO AZUL K V58.69 LONG-TERM (CURRENT) USE OF OTHER MEDICATIONS 11/17/2011 LARSEN DO, AZUL K V70.0 ROUTINE GENERAL MEDICAL EXAMINATION AT A HEALTH CARE FACILITY 11/17/2011 LARSEN DO AZUL K V58.69 LONG-TERM (CURRENT) USE OF OTHER MEDICATIONS 11/17/2011 LARSEN DO AZUL K V70.0 ROUTINE GENERAL MEDICAL EXAMINATION AT A HEALTH CARE FACILITY 11/17/2011 AZUL LARSEN DO V58.69 LONG-TERM (CURRENT) USE OF OTHER MEDICATIONS 11/17/2011 SVITLANA LARSEN DOA K V70.0 ROUTINE GENERAL MEDICAL EXAMINATION AT A HEALTH CARE FACILITY 11/17/2011 KATHERINE COONEY KALIN MEGAN V58.69 LONG-TERM (CURRENT) USE OF OTHER MEDICATIONS 11/17/2011 KATHERINE COONEY KALIN GUZMAN V70.0 ROUTINE GENERAL MEDICAL EXAMINATION AT A HEALTH CARE FACILITY 11/17/2011 AZUL LARSEN DO V58.69 LONG-TERM (CURRENT) USE OF OTHER MEDICATIONS 11/17/2011 LARSEN DOSVITLANAA K V70.0 ROUTINE GENERAL MEDICAL EXAMINATION AT A HEALTH CARE FACILITY 11/17/2011 AZUL LARSEN DO K V58.69 LONG-TERM (CURRENT) USE OF OTHER MEDICATIONS 11/17/2011 SVITLANA LARSEN DOA K V70.0 ROUTINE GENERAL MEDICAL EXAMINATION AT A HEALTH CARE FACILITY 11/17/2011 ALEXEY VEGAS APRN V58.69 LONG-TERM (CURRENT) USE OF OTHER MEDICATIONS 11/17/2011 ASC[employer]ION CORPORATE WELLNESS COORDINATOR, ALEXEY V70.0 ROUTINE GENERAL MEDICAL EXAMINATION AT A HEALTH CARE FACILITY 11/17/2011 ASCENCION COONEY ALEXEY V58.69 LONG-TERM (CURRENT) USE OF OTHER MEDICATIONS 11/17/2011 [employer]ION CORPORATE WELLNESS COORDINATOR, ALEXEY V70.0 ROUTINE GENERAL MEDICAL EXAMINATION AT A HEALTH CARE FACILITY 11/17/2011 ALEXEY VEGAS APRN V58.69 LONG-TERM (CURRENT) USE OF OTHER MEDICATIONS 11/17/2011 ASCENCION COONEY ALEXEY V70.0 ROUTINE GENERAL MEDICAL EXAMINATION AT A HEALTH CARE FACILITY 11/17/2011 AZUL LARSEN DO V58.69 LONG-TERM (CURRENT) USE OF OTHER MEDICATIONS 11/17/2011 SVITLANA LARSEN DOA K V70.0 ROUTINE GENERAL MEDICAL EXAMINATION AT A HEALTH CARE FACILITY 11/17/2011 ASCENCION COONEY ALEXEY V58.69 LONG-TERM (CURRENT) USE OF OTHER MEDICATIONS 11/17/2011 [employer] CORPORATE WELLNESS COORDINATOR, ALEXEY V70.0 ROUTINE GENERAL MEDICAL EXAMINATION AT A HEALTH CARE FACILITY 11/17/2011 SHENG FUNK APRN V58.69 LONG-TERM (CURRENT) USE OF OTHER MEDICATIONS 11/17/2011 FUNK CORPORATE WELLNESS COORDINATOR, SHENG R V70.0 ROUTINE GENERAL MEDICAL EXAMINATION AT A HEALTH CARE FACILITY 11/17/2011 OSWALDO LAMB DDS V58.69 LONG-TERM (CURRENT) USE OF OTHER MEDICATIONS 11/17/2011 OSWALDO LAMB DDS V70.0 ROUTINE GENERAL MEDICAL EXAMINATION AT A HEALTH CARE FACILITY 12/22/2011 296.80 MO BIPOLAR NOS 12/22/2011 296.80 MO BIPOLAR NOS 12/22/2011 LARSEN DO, AZUL K 296.80 MO BIPOLAR NOS 12/22/2011 LARSEN DO, AZUL K 296.80 MO BIPOLAR NOS 12/22/2011 MURPHY EROS KALIN MEGAN 296.80 MO BIPOLAR NOS 12/22/2011 296.80 MO BIPOLAR NOS 12/22/2011 296.80 MO BIPOLAR NOS 12/22/2011 296.80 MO BIPOLAR NOS 12/22/2011 LARSEN DO, AZUL K 296.80 MO BIPOLAR NOS 12/22/2011 MURPHY KALIN COONEY 296.80 MO BIPOLAR NOS 12/22/2011 MURPHY KALIN COONEY 296.80 MO BIPOLAR NOS 12/22/2011 SHENG FUNK APRN R 296.80 MO BIPOLAR NOS 12/22/2011 MURPHY EROS KALIN MEGAN 296.80 MO BIPOLAR NOS 12/22/2011 LARSEN DO, AZUL K 296.80 MO BIPOLAR NOS 12/22/2011 SANDI MACEDO APRN R 296.80 MO BIPOLAR NOS 12/22/2011 LARSEN DO, AZUL K 296.80 MO BIPOLAR NOS 12/22/2011 LARSEN DO, AZUL K 296.80 MO BIPOLAR NOS 12/22/2011 LARSEN DO, AZUL K 296.80 MO BIPOLAR NOS 12/22/2011 MURPHY CORPORATE WELLNESS COORDINATORKALIN Chirinos 296.80 MO BIPOLAR NOS 12/22/2011 LARSEN DO, AZUL K 296.80 MO BIPOLAR NOS 12/22/2011 LARSEN DO, AZUL K 296.80 MO BIPOLAR NOS 12/22/2011 [employer]ATE WELLNESS COORDINATOR, ALEXEY 296.80 MO BIPOLAR NOS 12/22/2011 [employer] CORPORATE WELLNESS COORDINATOR, ALEXEY 296.80 MO BIPOLAR NOS 12/22/2011 [employer]ENC[employer] CORPORATE WELLNESS COORDINATOR, ALEXEY 296.80 MO BIPOLAR NOS 12/22/2011 LARSEN DO, AZUL K 296.80 MO BIPOLAR NOS 12/22/2011 [employer] CORPORATE WELLNESS COORDINATOR, ALEXEY 296.80 MO BIPOLAR NOS 12/22/2011 GOOD CORPORATE WELLNESS COORDINATOR, SHENG R 296.80 MO BIPOLAR NOS 12/22/2011 ADONIS DDS, OSWALDO Figueroa 296.80 MO BIPOLAR NOS 03/20/2012 112.1 CANDIDIASIS VAGINAL 03/20/2012 V76.10 BREAST CANCER SCREENING 03/20/2012 V76.2 CERVICAL CANCER SCREENING (PAP SMEAR) 03/20/2012 112.1 CANDIDIASIS VAGINAL 03/20/2012 V76.10 BREAST CANCER SCREENING 03/20/2012 V76.2 CERVICAL CANCER SCREENING (PAP SMEAR) 03/20/2012 AZUL LARSEN DO 112.1 CANDIDIASIS VAGINAL 03/20/2012 SVITLANA LARSEN DOA K V76.10 BREAST CANCER SCREENING 03/20/2012 AZUL LARSEN DO V76.2 CERVICAL CANCER SCREENING (PAP SMEAR) 03/20/2012 AZUL LARSEN DO 112.1 CANDIDIASIS VAGINAL 03/20/2012 AZUL LARSEN DO V76.10 BREAST CANCER SCREENING 03/20/2012 AZUL LARSEN DO V76.2 CERVICAL CANCER SCREENING (PAP SMEAR) 03/20/2012 KALIN MURPHY APRN 112.1 CANDIDIASIS VAGINAL 03/20/2012 KALIN MURPHY APRN V76.10 BREAST CANCER SCREENING 03/20/2012 KALIN MURPHY APRN V76.2 CERVICAL CANCER SCREENING (PAP SMEAR) 03/20/2012 112.1 CANDIDIASIS VAGINAL 03/20/2012 V76.10 BREAST CANCER SCREENING 03/20/2012 V76.2 CERVICAL CANCER SCREENING (PAP SMEAR) 03/20/2012 112.1 CANDIDIASIS VAGINAL 03/20/2012 V76.10 BREAST CANCER SCREENING 03/20/2012 V76.2 CERVICAL CANCER SCREENING (PAP SMEAR) 03/20/2012 112.1 CANDIDIASIS VAGINAL 03/20/2012 V76.10 BREAST CANCER SCREENING 03/20/2012 V76.2 CERVICAL CANCER SCREENING (PAP SMEAR) 03/20/2012 AZUL LARSEN DO 112.1 CANDIDIASIS VAGINAL 03/20/2012 AZUL LARSEN DO K V76.10 BREAST CANCER SCREENING 03/20/2012 AZUL LARSEN DO V76.2 CERVICAL CANCER SCREENING (PAP SMEAR) 03/20/2012 KALIN MURPHY APRN 112.1 CANDIDIASIS VAGINAL 03/20/2012 KALIN MURPHY APRN V76.10 BREAST CANCER SCREENING 03/20/2012 KATHERINE COONEY KALIN GUZMAN V76.2 CERVICAL CANCER SCREENING (PAP SMEAR) 03/20/2012 KATHERINE ESPINOTaran KALIN GUZMAN 112.1 CANDIDIASIS VAGINAL 03/20/2012 KATHERINE ESPINOTaran KALIN GUZMAN V76.10 BREAST CANCER SCREENING 03/20/2012 KATHERINE COONEY KALIN GUZMAN V76.2 CERVICAL CANCER SCREENING (PAP SMEAR) 03/20/2012 LYNDA FUNK APRNIA R 112.1 CANDIDIASIS VAGINAL 03/20/2012 GOOD ESPINOKIM ChirinosSHENG R V76.10 BREAST CANCER SCREENING 03/20/2012 GOOD ESPINOLYNDA ChirinosIA R V76.2 CERVICAL CANCER SCREENING (PAP SMEAR) 03/20/2012 KATHERINE ESPINOTaran KALIN GUZMAN 112.1 CANDIDIASIS VAGINAL 03/20/2012 KATHERINE COONEY KALIN GUZMAN V76.10 BREAST CANCER SCREENING 03/20/2012 KATHERINE ESPINOTaran KALIN GUZMAN V76.2 CERVICAL CANCER SCREENING (PAP SMEAR) 03/20/2012 CHAVA FAUSTIN AZUL K 112.1 CANDIDIASIS VAGINAL 03/20/2012 CHAVA FAUSTIN, AZUL K V76.10 BREAST CANCER SCREENING 03/20/2012 CHAVA FAUSTIN, AZUL K V76.2 CERVICAL CANCER SCREENING (PAP SMEAR) 03/20/2012 HELLEN COONEY SANDI R 112.1 CANDIDIASIS VAGINAL 03/20/2012 HELLEN COONEY SANDI R V76.10 BREAST CANCER SCREENING 03/20/2012 HELLEN COONEY SANDI R V76.2 CERVICAL CANCER SCREENING (PAP SMEAR) 03/20/2012 LARSEN DO AZUL K 112.1 CANDIDIASIS VAGINAL 03/20/2012 LARSEN DO, AZUL K V76.10 BREAST CANCER SCREENING 03/20/2012 LARSEN DO, AZUL K V76.2 CERVICAL CANCER SCREENING (PAP SMEAR) 03/20/2012 LARSEN DO, AZUL K 112.1 CANDIDIASIS VAGINAL 03/20/2012 LARSEN DO, AZUL K V76.10 BREAST CANCER SCREENING 03/20/2012 LARSEN DO, AZUL K V76.2 CERVICAL CANCER SCREENING (PAP SMEAR) 03/20/2012 LARSEN DO, AZUL K 112.1 CANDIDIASIS VAGINAL 03/20/2012 LARSEN DO, AZUL K V76.10 BREAST CANCER SCREENING 03/20/2012 LARSEN DO, AZUL K V76.2 CERVICAL CANCER SCREENING (PAP SMEAR) 03/20/2012 KATHERINE ESPINOTaran KALIN GUZMAN 112.1 CANDIDIASIS VAGINAL 03/20/2012 KATHERINE ESPINOTaran KALIN GUZMAN V76.10 BREAST CANCER SCREENING 03/20/2012 KATHERINE ESPINOTaran KALIN GUZMAN V76.2 CERVICAL CANCER SCREENING (PAP SMEAR) 03/20/2012 CHAVA FAUSTIN AZUL K 112.1 CANDIDIASIS VAGINAL 03/20/2012 CHAVA FAUSTIN AZUL K V76.10 BREAST CANCER SCREENING 03/20/2012 CHAVA FAUSTIN AZUL K V76.2 CERVICAL CANCER SCREENING (PAP SMEAR) 03/20/2012 CHAVA FAUSTIN AZUL K 112.1 CANDIDIASIS VAGINAL 03/20/2012 LARSEN DO AZUL K V76.10 BREAST CANCER SCREENING 03/20/2012 LARSEN DO AZUL K V76.2 CERVICAL CANCER SCREENING (PAP SMEAR) 03/20/2012 [employer]PORATE WELLNESS COORDINATOR, ALEXEY 112.1 CANDIDIASIS VAGINAL 03/20/2012 [employer]ENCION CORPORATE WELLNESS COORDINATOR, ALEXEY V76.10 BREAST CANCER SCREENING 03/20/2012 [employer] CORPORATE WELLNESS COORDINATOR, ALEXEY V76.2 CERVICAL CANCER SCREENING (PAP SMEAR) 03/20/2012 [employer]ENCION CORPORATE WELLNESS COORDINATOR, ALEXEY 112.1 CANDIDIASIS VAGINAL 03/20/2012 ASCENCION CORPORATE WELLNESS COORDINATOR, ALEXEY V76.10 BREAST CANCER SCREENING 03/20/2012 [employer]ENC[employer] CORPORATE WELLNESS COORDINATOR, ALEXEY V76.2 CERVICAL CANCER SCREENING (PAP SMEAR) 03/20/2012 ASCENCION CORPORATE WELLNESS COORDINATOR, ALEXEY 112.1 CANDIDIASIS VAGINAL 03/20/2012 [employer]ENCION CORPORATE WELLNESS COORDINATOR, ALEXEY V76.10 BREAST CANCER SCREENING 03/20/2012 [employer]ENCION CORPORATE WELLNESS COORDINATOR, ALEXEY V76.2 CERVICAL CANCER SCREENING (PAP SMEAR) 03/20/2012 LARSEN DO AZUL K 112.1 CANDIDIASIS VAGINAL 03/20/2012 LARSEN DO AZUL K V76.10 BREAST CANCER SCREENING 03/20/2012 LARSEN DO AZUL K V76.2 CERVICAL CANCER SCREENING (PAP SMEAR) 03/20/2012 [employer] CORPORATE WELLNESS COORDINATOR, ALEXEY 112.1 CANDIDIASIS VAGINAL 03/20/2012 ASCENCION CORPORATE WELLNESS COORDINATOR, ALEXEY V76.10 BREAST CANCER SCREENING 03/20/2012 ASCENCION CORPORATE WELLNESS COORDINATOR, ALEXEY V76.2 CERVICAL CANCER SCREENING (PAP SMEAR) 03/20/2012 SHENG FUNK APRN 112.1 CANDIDIASIS VAGINAL 03/20/2012 SHENG FUNK APRN R V76.10 BREAST CANCER SCREENING 03/20/2012 SHENG FUNK APRN R V76.2 CERVICAL CANCER SCREENING (PAP SMEAR) 03/20/2012 [facility] OSWALDO Figueroa 112.1 CANDIDIASIS VAGINAL 03/20/2012 KOBY DDS, OSWALDO Figueroa V76.10 BREAST CANCER SCREENING 03/20/2012 KOBY SHIPMANS, OSWALDO Figueroa V76.2 CERVICAL CANCER SCREENING (PAP SMEAR) 05/03/2012 AZUL LARSEN DO 719.41 PAIN IN JOINT INVOLVING SHOULDER REGION 05/03/2012 AZUL LARSEN DO 719.41 PAIN IN JOINT INVOLVING SHOULDER REGION 05/03/2012 KATHERINE COONEY KALIN MEGAN 719.41 PAIN IN JOINT INVOLVING SHOULDER REGION 05/03/2012 719.41 PAIN IN JOINT INVOLVING SHOULDER REGION 05/03/2012 719.41 PAIN IN JOINT INVOLVING SHOULDER REGION 05/03/2012 719.41 PAIN IN JOINT INVOLVING SHOULDER REGION 05/03/2012 AZUL LARSEN DO 719.41 PAIN IN JOINT INVOLVING SHOULDER REGION 05/03/2012 KATHERINE COONEY KALIN MEGAN 719.41 PAIN IN JOINT INVOLVING SHOULDER REGION 05/03/2012 KATHERINE COONEY KALIN MEGAN 719.41 PAIN IN JOINT INVOLVING SHOULDER REGION 05/03/2012 SHENG FUNK APRN 719.41 PAIN IN JOINT INVOLVING SHOULDER REGION 05/03/2012 KATHERINE COONEY KALIN MEGAN 719.41 PAIN IN JOINT INVOLVING SHOULDER REGION 05/03/2012 AZUL LARSEN DO 719.41 PAIN IN JOINT INVOLVING SHOULDER REGION 05/03/2012 SANDI MACEDO APRN 719.41 PAIN IN JOINT INVOLVING SHOULDER REGION 05/03/2012 AZUL LARSEN DO 719.41 PAIN IN JOINT INVOLVING SHOULDER REGION 05/03/2012 AZUL LARSEN DO 719.41 PAIN IN JOINT INVOLVING SHOULDER REGION 05/03/2012 AUZL LARSEN DO 719.41 PAIN IN JOINT INVOLVING SHOULDER REGION 05/03/2012 KATHERINE COONEY KALIN MEGAN 719.41 PAIN IN JOINT INVOLVING SHOULDER REGION 05/03/2012 AZUL LARSEN DO 719.41 PAIN IN JOINT INVOLVING SHOULDER REGION 05/03/2012 AZUL LARSEN DO 719.41 PAIN IN JOINT INVOLVING SHOULDER REGION 05/03/2012 ASCENCION COONEY, ALEXEY 719.41 PAIN IN JOINT INVOLVING SHOULDER REGION 05/03/2012 ASCENCIONTRINO COONEY, ALEXEY 719.41 PAIN IN JOINT INVOLVING SHOULDER REGION 05/03/2012 ASCENCIONTRINO COONEY, ALEXEY 719.41 PAIN IN JOINT INVOLVING SHOULDER REGION 05/03/2012 AZUL LARSEN DO K 719.41 PAIN IN JOINT INVOLVING SHOULDER REGION 05/03/2012 ASCENCION COONEY, ALEXEY 719.41 PAIN IN JOINT INVOLVING SHOULDER REGION 05/03/2012 SHENG FUNK APRN R 719.41 PAIN IN JOINT INVOLVING SHOULDER REGION 06/13/2012 AZUL LARSEN DO K 380.22 OTHER ACUTE OTITIS EXTERNA 06/13/2012 AZUL LARSEN DO K 381.01 ACUTE SEROUS OTITIS MEDIA 06/13/2012 KALIN MURPHY APRN 380.22 OTHER ACUTE OTITIS EXTERNA 06/13/2012 KALIN MURPHY APRN 381.01 ACUTE SEROUS OTITIS MEDIA 06/13/2012 380.22 OTHER ACUTE OTITIS EXTERNA 06/13/2012 381.01 ACUTE SEROUS OTITIS MEDIA 06/13/2012 380.22 OTHER ACUTE OTITIS EXTERNA 06/13/2012 381.01 ACUTE SEROUS OTITIS MEDIA 06/13/2012 380.22 OTHER ACUTE OTITIS EXTERNA 06/13/2012 381.01 ACUTE SEROUS OTITIS MEDIA 06/13/2012 AZUL LARSEN DO K 380.22 OTHER ACUTE OTITIS EXTERNA 06/13/2012 AZUL LARSEN DO K 381.01 ACUTE SEROUS OTITIS MEDIA 06/13/2012 KALIN MURPHY APRN 380.22 OTHER ACUTE OTITIS EXTERNA 06/13/2012 KALIN MURPHY APRN 381.01 ACUTE SEROUS OTITIS MEDIA 06/13/2012 KALIN MURPHY APRN 380.22 OTHER ACUTE OTITIS EXTERNA 06/13/2012 KALIN MURPHY APRN 381.01 ACUTE SEROUS OTITIS MEDIA 06/13/2012 SHENG FUNK APRN R 380.22 OTHER ACUTE OTITIS EXTERNA 06/13/2012 SHENG FUNK APRN 381.01 ACUTE SEROUS OTITIS MEDIA 06/13/2012 KALIN MURPHY APRN 380.22 OTHER ACUTE OTITIS EXTERNA 06/13/2012 KALIN MURPHY APRN 381.01 ACUTE SEROUS OTITIS MEDIA 06/13/2012 LARSEN DO, AZUL K 380.22 OTHER ACUTE OTITIS EXTERNA 06/13/2012 LARSEN DO, AZUL K 381.01 ACUTE SEROUS OTITIS MEDIA 06/13/2012 HELLEN CORPORATE WELLNESS COORDINATOR SANDI R 380.22 OTHER ACUTE OTITIS EXTERNA 06/13/2012 HELLEN CORPORATE WELLNESS COORDINATOR, SANDI R 381.01 ACUTE SEROUS OTITIS MEDIA 06/13/2012 LARSEN DO, AZUL K 380.22 OTHER ACUTE OTITIS EXTERNA 06/13/2012 LARSEN DO, AZUL K 381.01 ACUTE SEROUS OTITIS MEDIA 06/13/2012 LARSEN DO, AZUL K 380.22 OTHER ACUTE OTITIS EXTERNA 06/13/2012 LARSEN DO, AZUL K 381.01 ACUTE SEROUS OTITIS MEDIA 06/13/2012 LARSEN DO, AZUL K 380.22 OTHER ACUTE OTITIS EXTERNA 06/13/2012 LARSEN DO, AZUL K 381.01 ACUTE SEROUS OTITIS MEDIA 06/13/2012 KALIN MURPHY APRN 380.22 OTHER ACUTE OTITIS EXTERNA 06/13/2012 KALNI MURPHY APRN 381.01 ACUTE SEROUS OTITIS MEDIA 06/13/2012 LARSEN DO, AZUL K 380.22 OTHER ACUTE OTITIS EXTERNA 06/13/2012 LARSEN DO, AZUL K 381.01 ACUTE SEROUS OTITIS MEDIA 06/13/2012 LARSEN DO, AZUL K 380.22 OTHER ACUTE OTITIS EXTERNA 06/13/2012 LARSEN DO, AZUL K 381.01 ACUTE SEROUS OTITIS MEDIA 06/13/2012 [employer]ATE WELLNESS COORDINATOR, ALEXEY 380.22 OTHER ACUTE OTITIS EXTERNA 06/13/2012 [employer]ATE WELLNESS COORDINATOR, ALEXEY 381.01 ACUTE SEROUS OTITIS MEDIA 06/13/2012 [employer]ENC[employer]ATE WELLNESS COORDINATOR, ALEXEY 380.22 OTHER ACUTE OTITIS EXTERNA 06/13/2012 ASCENCION CORPORATE WELLNESS COORDINATOR, ALEXEY 381.01 ACUTE SEROUS OTITIS MEDIA 06/13/2012 ASCENCION CORPORATE WELLNESS COORDINATOR, ALEXEY 380.22 OTHER ACUTE OTITIS EXTERNA 06/13/2012 [employer]ENC[employer]PORATE WELLNESS COORDINATOR, ALEXEY 381.01 ACUTE SEROUS OTITIS MEDIA 06/13/2012 LARSEN DO, AZUL K 380.22 OTHER ACUTE OTITIS EXTERNA 06/13/2012 LARSEN DO, AZUL K 381.01 ACUTE SEROUS OTITIS MEDIA 06/13/2012 [employer]ATE WELLNESS COORDINATOR, ALEXEY 380.22 OTHER ACUTE OTITIS EXTERNA 06/13/2012 [employer]ATE WELLNESS COORDINATOR, ALEXEY 381.01 ACUTE SEROUS OTITIS MEDIA 06/13/2012 LYNDA FUNK APRNIA R 380.22 OTHER ACUTE OTITIS EXTERNA 06/13/2012 GOOD CORPORATE WELLNESS COORDINATORKIM ChirinosSHENG R 381.01 ACUTE SEROUS OTITIS MEDIA 10/24/2012 620.2 OTHER AND UNSPECIFIED OVARIAN CYST 10/24/2012 627.0 PREMENOPAUSAL MENORRHAGIA 10/24/2012 620.2 OTHER AND UNSPECIFIED OVARIAN CYST 10/24/2012 627.0 PREMENOPAUSAL MENORRHAGIA 10/24/2012 LARSEN DO, AZUL K 620.2 OTHER AND UNSPECIFIED OVARIAN CYST 10/24/2012 LARSEN DO, ZAUL K 627.0 PREMENOPAUSAL MENORRHAGIA 10/24/2012 MURPHY CORPORATE WELLNESS COORDINATOR KALIN MEGAN 620.2 OTHER AND UNSPECIFIED OVARIAN CYST 10/24/2012 MURPHY CORPORATE WELLNESS COORDINATOR KALIN MEGAN 627.0 PREMENOPAUSAL MENORRHAGIA 10/24/2012 MURPHY CORPORATE WELLNESS COORDINATOR KALIN MEGAN 620.2 OTHER AND UNSPECIFIED OVARIAN CYST 10/24/2012 MURPHY CORPORATE WELLNESS COORDINATOR KALIN MEGAN 627.0 PREMENOPAUSAL MENORRHAGIA 10/24/2012 LYNDA FUNK APRNIA R 620.2 OTHER AND UNSPECIFIED OVARIAN CYST 10/24/2012 LYNDA FUNK APRNIA R 627.0 PREMENOPAUSAL MENORRHAGIA 10/24/2012 MURPHY CORPORATE WELLNESS COORDINATOR KALIN YATESH 620.2 OTHER AND UNSPECIFIED OVARIAN CYST 10/24/2012 MURPHY CORPORATE WELLNESS COORDINATOR, KALIN YATESH 627.0 PREMENOPAUSAL MENORRHAGIA 10/24/2012 LARSEN DO, AZUL K 620.2 OTHER AND UNSPECIFIED OVARIAN CYST 10/24/2012 LARSEN DO, AZUL K 627.0 PREMENOPAUSAL MENORRHAGIA 10/24/2012 HELLEN CORPORATE WELLNESS COORDINATOR, SANDI R 620.2 OTHER AND UNSPECIFIED OVARIAN CYST 10/24/2012 HELLEN CORPORATE WELLNESS COORDINATOR, SANDI R 627.0 PREMENOPAUSAL MENORRHAGIA 10/24/2012 LARSEN DO, AZUL K 620.2 OTHER AND UNSPECIFIED OVARIAN CYST 10/24/2012 LARSEN DO, AZUL K 627.0 PREMENOPAUSAL MENORRHAGIA 10/24/2012 LARSEN DO, AZUL K 620.2 OTHER AND UNSPECIFIED OVARIAN CYST 10/24/2012 LARSEN DO, AZUL K 627.0 PREMENOPAUSAL MENORRHAGIA 10/24/2012 LARSEN DO, AZUL K 620.2 OTHER AND UNSPECIFIED OVARIAN CYST 10/24/2012 LARSEN DO, AZUL K 627.0 PREMENOPAUSAL MENORRHAGIA 10/24/2012 KATHERINE COONEY KALIN MEGAN 620.2 OTHER AND UNSPECIFIED OVARIAN CYST 10/24/2012 KATHERINE COONEY KALIN MEGAN 627.0 PREMENOPAUSAL MENORRHAGIA 10/24/2012 LARSEN DO, AZUL K 620.2 OTHER AND UNSPECIFIED OVARIAN CYST 10/24/2012 LARSEN DO, AZUL K 627.0 PREMENOPAUSAL MENORRHAGIA 10/24/2012 LARSEN DO, AZUL K 620.2 OTHER AND UNSPECIFIED OVARIAN CYST 10/24/2012 LARSEN DO, AZUL K 627.0 PREMENOPAUSAL MENORRHAGIA 10/24/2012 [employer] WELLNESS COORDINATOR, ALEXEY 620.2 OTHER AND UNSPECIFIED OVARIAN CYST 10/24/2012 [employer] WELLNESS COORDINATOR, ALEXEY 627.0 PREMENOPAUSAL MENORRHAGIA 10/24/2012 [employer] WELLNESS COORDINATOR, ALEXEY 620.2 OTHER AND UNSPECIFIED OVARIAN CYST 10/24/2012 [employer] WELLNESS COORDINATOR, ALEXEY 627.0 PREMENOPAUSAL MENORRHAGIA 10/24/2012 [employer] WELLNESS COORDINATOR, ALEXEY 620.2 OTHER AND UNSPECIFIED OVARIAN CYST 10/24/2012 [employer] WELLNESS COORDINATOR, ALEXEY 627.0 PREMENOPAUSAL MENORRHAGIA 10/24/2012 LARSEN DO, AZUL K 620.2 OTHER AND UNSPECIFIED OVARIAN CYST 10/24/2012 LARSEN DO, AZUL K 627.0 PREMENOPAUSAL MENORRHAGIA 10/24/2012 [employer] WELLNESS COORDINATOR, ALEXEY 620.2 OTHER AND UNSPECIFIED OVARIAN CYST 10/24/2012 [employer] WELLNESS COORDINATOR, ALEXEY 627.0 PREMENOPAUSAL MENORRHAGIA 10/24/2012 SHENG FUNK APRN R 620.2 OTHER AND UNSPECIFIED OVARIAN CYST 10/24/2012 SHENG FUNK APRN R 627.0 PREMENOPAUSAL MENORRHAGIA 01/31/2013 SVITLANA LARSEN DOA K 112.3 CANDIDIASIS OF SKIN AND NAILS 01/31/2013 CHAVA FAUSTIN AZUL K 535.50 UNSPECIFIED GASTRITIS AND GASTRODUODENITIS (WITHOUT HEMORRHAGE) 01/31/2013 SVITLANA LARSEN DOA K 729.5 PAIN IN LIMB 01/31/2013 KALIN MURPHY APRN 112.3 CANDIDIASIS OF SKIN AND NAILS 01/31/2013 KALIN MURPHY APRN 535.50 UNSPECIFIED GASTRITIS AND GASTRODUODENITIS (WITHOUT HEMORRHAGE) 01/31/2013 KALIN MURPHY APRN 729.5 PAIN IN LIMB 01/31/2013 KATHERINE ESPINON, KALIN YATESH 112.3 CANDIDIASIS OF SKIN AND NAILS 01/31/2013 KATHERINE ESPINON, KALIN GUZMAN 535.50 UNSPECIFIED GASTRITIS AND GASTRODUODENITIS (WITHOUT HEMORRHAGE) 01/31/2013 KATHERINE ESPINON, KALIN GUZMAN 729.5 PAIN IN LIMB 01/31/2013 KIM FUNK APRNRICIA R 112.3 CANDIDIASIS OF SKIN AND NAILS 01/31/2013 [employer]K [employer]PORATE WELLNESS COORDINATOR, SHENG R 535.50 UNSPECIFIED GASTRITIS AND GASTRODUODENITIS (WITHOUT HEMORRHAGE) 01/31/2013 [employer]PORATE WELLNESS COORDINATOR, SHENG R 729.5 PAIN IN LIMB 01/31/2013 KATHERINE ESPINON KALIN GUZMAN 112.3 CANDIDIASIS OF SKIN AND NAILS 01/31/2013 KATHERINE ESPINON KALIN GUZMAN 535.50 UNSPECIFIED GASTRITIS AND GASTRODUODENITIS (WITHOUT HEMORRHAGE) 01/31/2013 KATHERINE ESPINOTaran KALIN GUZMAN 729.5 PAIN IN LIMB 01/31/2013 LARSEN DO, AZUL K 112.3 CANDIDIASIS OF SKIN AND NAILS 01/31/2013 LARSEN DO, AZUL K 535.50 UNSPECIFIED GASTRITIS AND GASTRODUODENITIS (WITHOUT HEMORRHAGE) 01/31/2013 LARSEN DO, AZUL K 729.5 PAIN IN LIMB 01/31/2013 HELLEN COONEY SANDI R 112.3 CANDIDIASIS OF SKIN AND NAILS 01/31/2013 HELLEN COONEY SANDI R 535.50 UNSPECIFIED GASTRITIS AND GASTRODUODENITIS (WITHOUT HEMORRHAGE) 01/31/2013 HELLEN COONEY SANDI R 729.5 PAIN IN LIMB 01/31/2013 LARSEN DO, AZUL K 112.3 CANDIDIASIS OF SKIN AND NAILS 01/31/2013 LARSEN DO, AZUL K 535.50 UNSPECIFIED GASTRITIS AND GASTRODUODENITIS (WITHOUT HEMORRHAGE) 01/31/2013 LARSEN DO, AZUL K 729.5 PAIN IN LIMB 01/31/2013 LARSEN DO, AZUL K 112.3 CANDIDIASIS OF SKIN AND NAILS 01/31/2013 LARSEN DO, AZUL K 535.50 UNSPECIFIED GASTRITIS AND GASTRODUODENITIS (WITHOUT HEMORRHAGE) 01/31/2013 LARSEN DO, AZUL K 729.5 PAIN IN LIMB 01/31/2013 LARSEN DO, AZUL K 112.3 CANDIDIASIS OF SKIN AND NAILS 01/31/2013 LARSEN DO AZUL K 535.50 UNSPECIFIED GASTRITIS AND GASTRODUODENITIS (WITHOUT HEMORRHAGE) 01/31/2013 CHAVA FAUSTIN AZUL K 729.5 PAIN IN LIMB 01/31/2013 MURPHYCASSIDY COONEYKALIN 112.3 CANDIDIASIS OF SKIN AND NAILS 01/31/2013 MURPHYCASSIDY COONEY KALIN GUZMAN 535.50 UNSPECIFIED GASTRITIS AND GASTRODUODENITIS (WITHOUT HEMORRHAGE) 01/31/2013 MURPHYCASSIDY COONEY KALIN GUZMAN 729.5 PAIN IN LIMB 01/31/2013 LARSEN DO AZUL K 112.3 CANDIDIASIS OF SKIN AND NAILS 01/31/2013 LARSEN DO AZUL K 535.50 UNSPECIFIED GASTRITIS AND GASTRODUODENITIS (WITHOUT HEMORRHAGE) 01/31/2013 CHAVA FAUSTIN AZUL K 729.5 PAIN IN LIMB 01/31/2013 CHAVA FAUSTIN AZUL K 112.3 CANDIDIASIS OF SKIN AND NAILS 01/31/2013 CHAVA FAUSTIN AZUL K 535.50 UNSPECIFIED GASTRITIS AND GASTRODUODENITIS (WITHOUT HEMORRHAGE) 01/31/2013 CHAVA FAUSTIN AZUL K 729.5 PAIN IN LIMB 01/31/2013 [employer]ATE WELLNESS COORDINATOR, ALEXEY 112.3 CANDIDIASIS OF SKIN AND NAILS 01/31/2013 [employer]ATE WELLNESS COORDINATOR, ALEXEY 535.50 UNSPECIFIED GASTRITIS AND GASTRODUODENITIS (WITHOUT HEMORRHAGE) 01/31/2013 [employer]ATE WELLNESS COORDINATOR, ALEXEY 729.5 PAIN IN LIMB 01/31/2013 [employer]ATE WELLNESS COORDINATOR, ALEXEY 112.3 CANDIDIASIS OF SKIN AND NAILS 01/31/2013 [employer]ATE WELLNESS COORDINATOR, ALEXEY 535.50 UNSPECIFIED GASTRITIS AND GASTRODUODENITIS (WITHOUT HEMORRHAGE) 01/31/2013 [employer]ATE WELLNESS COORDINATOR, ALEXEY 729.5 PAIN IN LIMB 01/31/2013 [employer]ATE WELLNESS COORDINATOR, ALEXEY 112.3 CANDIDIASIS OF SKIN AND NAILS 01/31/2013 [employer]ATE WELLNESS COORDINATOR, ALEXEY 535.50 UNSPECIFIED GASTRITIS AND GASTRODUODENITIS (WITHOUT HEMORRHAGE) 01/31/2013 [employer]ATE WELLNESS COORDINATOR, ALEXEY 729.5 PAIN IN LIMB 01/31/2013 CHAVA FAUSTIN AZUL K 112.3 CANDIDIASIS OF SKIN AND NAILS 01/31/2013 CHAVA FAUSTIN AZUL K 535.50 UNSPECIFIED GASTRITIS AND GASTRODUODENITIS (WITHOUT HEMORRHAGE) 01/31/2013 LARSEN DO, AZUL K 729.5 PAIN IN LIMB 01/31/2013 [employer]ATE WELLNESS COORDINATOR, ALEXEY 112.3 CANDIDIASIS OF SKIN AND NAILS 01/31/2013 [employer]ATE WELLNESS COORDINATOR, ALEXEY 535.50 UNSPECIFIED GASTRITIS AND GASTRODUODENITIS (WITHOUT HEMORRHAGE) 01/31/2013 [employer]ATE WELLNESS COORDINATOR, ALEXEY 729.5 PAIN IN LIMB 01/31/2013 LYNDA FUNK APRNIA R 112.3 CANDIDIASIS OF SKIN AND NAILS 01/31/2013 KIM FUNK APRNRICIA R 535.50 UNSPECIFIED GASTRITIS AND GASTRODUODENITIS (WITHOUT HEMORRHAGE) 01/31/2013 LYNDA FUNK APRNIA R 729.5 PAIN IN LIMB 06/17/2013 SHENG FUNK APRN R 786.2 COUGH 06/17/2013 KALIN MURPHY APRN 786.2 COUGH 06/17/2013 LARSEN DO, AZUL K 786.2 COUGH 06/17/2013 SANDI MACEDO APRN R 786.2 COUGH 06/17/2013 LARSEN DO, AZUL K 786.2 COUGH 06/17/2013 LARSEN DO, AZUL K 786.2 COUGH 06/17/2013 LARSEN DO, AZUL K 786.2 COUGH 06/17/2013 KALIN MURPHY APRN 786.2 COUGH 06/17/2013 LARSEN DO, AZUL K 786.2 COUGH 06/17/2013 LARSEN DO, AZUL K 786.2 COUGH 06/17/2013 [employer] WELLNESS COORDINATOR, ALEXEY 786.2 COUGH 06/17/2013 [employer] WELLNESS COORDINATOR, ALEXEY 786.2 COUGH 06/17/2013 [employer] WELLNESS COORDINATOR, ALEXEY 786.2 COUGH 06/17/2013 LARSEN DO, AZUL K 786.2 COUGH 06/17/2013 [employer] WELLNESS COORDINATOR, ALEXEY 786.2 COUGH 06/17/2013 LYNDA FUNK APRNIA R 786.2 COUGH 07/05/2013 KALIN MURPHY APRN 295.70 P SCHIZO AFFECTIVE 07/05/2013 LARSEN DO, AZUL K 295.70 P SCHIZO AFFECTIVE 07/05/2013 SANDI MACEDO APRN R 295.70 P SCHIZO AFFECTIVE 07/05/2013 LARSEN DO, AZUL K 295.70 P SCHIZO AFFECTIVE 07/05/2013 LARSEN DO, AZUL K 295.70 P SCHIZO AFFECTIVE 07/05/2013 LARSEN DO, AZUL K 295.70 P SCHIZO AFFECTIVE 07/05/2013 MURPHY CORPORATE WELLNESS COORDINATOR, KALIN YATESH 295.70 P SCHIZO AFFECTIVE 07/05/2013 LARSEN DO, AZUL K 295.70 P SCHIZO AFFECTIVE 07/05/2013 LARSEN DO, AZUL K 295.70 P SCHIZO AFFECTIVE 07/05/2013 [employer] WELLNESS COORDINATOR, ALEXEY 295.70 P SCHIZO AFFECTIVE 07/05/2013 [employer]ATE WELLNESS COORDINATOR, ALEXEY 295.70 P SCHIZO AFFECTIVE 07/05/2013 [employer]ATE WELLNESS COORDINATOR, ALEXEY 295.70 P SCHIZO AFFECTIVE 07/05/2013 LARSEN DO, AZUL K 295.70 P SCHIZO AFFECTIVE 07/05/2013 [employer] WELLNESS COORDINATOR, ALEXEY 295.70 P SCHIZO AFFECTIVE 07/05/2013 FUNK CORPORATE WELLNESS COORDINATOR, SHENG R 295.70 P SCHIZO AFFECTIVE 07/12/2013 LARSEN DO, AZUL K 461.9 SINUSITIS ACUTE 07/12/2013 HELLEN CORPORATE WELLNESS COORDINATORSRINIVASSANDI R 461.9 SINUSITIS ACUTE 07/12/2013 LARSEN DO, AZUL K 461.9 SINUSITIS ACUTE 07/12/2013 LARSEN DO, AZUL K 461.9 SINUSITIS ACUTE 07/12/2013 LARSEN DO, AZUL K 461.9 SINUSITIS ACUTE 07/12/2013 MURPHY CORPORATE WELLNESS COORDINATOR, KALIN YATESH 461.9 SINUSITIS ACUTE 07/12/2013 LARSEN DO, AZUL K 461.9 SINUSITIS ACUTE 07/12/2013 LARSEN DO, AZUL K 461.9 SINUSITIS ACUTE 07/12/2013 [employer] WELLNESS COORDINATOR, ALEXEY 461.9 SINUSITIS ACUTE 07/12/2013 [employer]ATE WELLNESS COORDINATOR, ALEXEY 461.9 SINUSITIS ACUTE 07/12/2013 [employer]ATE WELLNESS COORDINATOR, ALEXEY 461.9 SINUSITIS ACUTE 07/12/2013 LARSEN DO, AZUL K 461.9 SINUSITIS ACUTE 07/12/2013 [employer]ATE WELLNESS COORDINATOR, ALEXEY 461.9 SINUSITIS ACUTE 07/12/2013 FUNK CORPORATE WELLNESS COORDINATOR, SHENG R 461.9 SINUSITIS ACUTE 08/29/2013 LARSEN DO, AZUL K 530.81 GERD 08/29/2013 LARSEN DO, AZUL K 530.81 GERD 08/29/2013 LARSEN DO, AZUL K 530.81 GERD 08/29/2013 KATHERINE COONEY KALIN GUZMAN 530.81 GERD 08/29/2013 LARSEN DO, AZUL K 530.81 GERD 08/29/2013 LARSEN DO, AZUL K 530.81 GERD 08/29/2013 [employer] WELLNESS COORDINATOR, ALEXEY 530.81 GERD 08/29/2013 [employer] WELLNESS COORDINATOR, ALEXEY 530.81 GERD 08/29/2013 [employer]ATE WELLNESS COORDINATOR, ALEXEY 530.81 GERD 08/29/2013 LARSEN DO, AZUL K 530.81 GERD 08/29/2013 [employer] WELLNESS COORDINATOR, ALEXEY 530.81 GERD 08/29/2013 GOOD CORPORATE WELLNESS COORDINATORSHENG Chirinos 530.81 GERD 10/12/2013 LARSEN DO, AZUL K 719.46 PAIN- KNEE 10/12/2013 LARSEN DO, AZUL K 719.46 PAIN- KNEE 10/12/2013 KATHERINE COONEY KALIN MEGAN 719.46 PAIN- KNEE 10/12/2013 LARSEN DO, AZUL K 719.46 PAIN- KNEE 10/12/2013 LARSEN DO, AZUL K 719.46 PAIN- KNEE 10/12/2013 [employer] WELLNESS COORDINATOR, ALEXEY 719.46 PAIN- KNEE 10/12/2013 [employer]ATE WELLNESS COORDINATOR, ALEXEY 719.46 PAIN- KNEE 10/12/2013 [employer]ATE WELLNESS COORDINATOR, ALEXEY 719.46 PAIN- KNEE 10/12/2013 LARSEN DO, AZUL K 719.46 PAIN- KNEE 10/12/2013 [employer] WELLNESS COORDINATOR, ALEXEY 719.46 PAIN- KNEE 10/12/2013 GOOD CORPORATE WELLNESS COORDINATORSHENG R 719.46 PAIN- KNEE 10/23/2013 LARSEN DO, AZUL K V15.05 PERSONAL HISTORY OF ALLERGY TO OTHER FOODS 10/23/2013 KATHERINE COONEY KALIN GUZMAN V15.05 PERSONAL HISTORY OF ALLERGY TO OTHER FOODS 10/23/2013 LARESN DO, AZUL K V15.05 PERSONAL HISTORY OF ALLERGY TO OTHER FOODS 10/23/2013 LARSEN DO, AZUL K V15.05 PERSONAL HISTORY OF ALLERGY TO OTHER FOODS 10/23/2013 [employer] WELLNESS COORDINATOR, ALEXEY V15.05 PERSONAL HISTORY OF ALLERGY TO OTHER FOODS 10/23/2013 [employer]ATE WELLNESS COORDINATOR, ALEXEY V15.05 PERSONAL HISTORY OF ALLERGY TO OTHER FOODS 10/23/2013 [employer]ATE WELLNESS COORDINATOR, ALEXEY V15.05 PERSONAL HISTORY OF ALLERGY TO OTHER FOODS 10/23/2013 LARSEN DO, AZUL K V15.05 PERSONAL HISTORY OF ALLERGY TO OTHER FOODS 10/23/2013 [employer] WELLNESS COORDINATOR, ALEXEY V15.05 PERSONAL HISTORY OF ALLERGY TO OTHER FOODS 10/23/2013 SHENG FUNK APRN R V15.05 PERSONAL HISTORY OF ALLERGY TO OTHER FOODS 01/13/2014 LARSEN DO, AZUL K 477.9 ALLERGIC RHINITIS CAUSE UNSPECIFIED 01/13/2014 LARSEN DO, AZUL K 709.9 UNSPECIFIED DISORDER OF SKIN AND SUBCUTANEOUS TISSUE 01/13/2014 LARSEN DO, AZUL K 477.9 ALLERGIC RHINITIS CAUSE UNSPECIFIED 01/13/2014 LARSEN DO, AZUL K 709.9 UNSPECIFIED DISORDER OF SKIN AND SUBCUTANEOUS TISSUE 01/13/2014 [employer] WELLNESS COORDINATOR, ALEXEY 477.9 ALLERGIC RHINITIS CAUSE UNSPECIFIED 01/13/2014 [employer]ATE WELLNESS COORDINATOR, ALEXEY 709.9 UNSPECIFIED DISORDER OF SKIN AND SUBCUTANEOUS TISSUE 01/13/2014 [employer]ATE WELLNESS COORDINATOR, ALEXEY 477.9 ALLERGIC RHINITIS CAUSE UNSPECIFIED 01/13/2014 [employer]ATE WELLNESS COORDINATOR, ALEXEY 709.9 UNSPECIFIED DISORDER OF SKIN AND SUBCUTANEOUS TISSUE 01/13/2014 [employer]ATE WELLNESS COORDINATOR, ALEXEY 477.9 ALLERGIC RHINITIS CAUSE UNSPECIFIED 01/13/2014 [employer]ATE WELLNESS COORDINATOR, ALEXEY 709.9 UNSPECIFIED DISORDER OF SKIN AND SUBCUTANEOUS TISSUE 01/13/2014 LARSEN DO, AZUL K 477.9 ALLERGIC RHINITIS CAUSE UNSPECIFIED 01/13/2014 LARSEN DO, AZUL K 709.9 UNSPECIFIED DISORDER OF SKIN AND SUBCUTANEOUS TISSUE 01/13/2014 [employer]ATE WELLNESS COORDINATOR, ALEXEY 477.9 ALLERGIC RHINITIS CAUSE UNSPECIFIED 01/13/2014 [employer]ATE WELLNESS COORDINATOR, ALEXEY 709.9 UNSPECIFIED DISORDER OF SKIN AND SUBCUTANEOUS TISSUE 01/13/2014 SHENG FUNK APRN R 477.9 ALLERGIC RHINITIS CAUSE UNSPECIFIED 01/13/2014 SHENG FUNK APRN R 709.9 UNSPECIFIED DISORDER OF SKIN AND SUBCUTANEOUS TISSUE 02/11/2014 LARSEN DO, AZUL K 783.21 LOSS OF WEIGHT 02/11/2014 LARSEN DO, AZUL K 787.01 NAUSEA WITH VOMITING 02/11/2014 LARSEN DO, AZUL K 787.20 DYSPHAGIA, UNSPECIFIED 02/11/2014 LARSEN DO, AZUL K V04.81 FLU SHOT 02/11/2014 [employer] WELLNESS COORDINATOR, ALEXEY 783.21 LOSS OF WEIGHT 02/11/2014 [employer]ATE WELLNESS COORDINATOR, ALEXEY 787.01 NAUSEA WITH VOMITING 02/11/2014 [employer]ATE WELLNESS COORDINATOR, ALEXEY 787.20 DYSPHAGIA, UNSPECIFIED 02/11/2014 [employer]ATE WELLNESS COORDINATOR, ALEXEY V04.81 FLU SHOT 02/11/2014 [employer]ATE WELLNESS COORDINATOR, ALEXEY 783.21 LOSS OF WEIGHT 02/11/2014 [employer]ATE WELLNESS COORDINATOR, ALEXEY 787.01 NAUSEA WITH VOMITING 02/11/2014 [employer]ATE WELLNESS COORDINATOR, ALEXEY 787.20 DYSPHAGIA, UNSPECIFIED 02/11/2014 [employer]ATE WELLNESS COORDINATOR, ALEXEY V04.81 FLU SHOT 02/11/2014 [employer]ATE WELLNESS COORDINATOR, ALEXEY 783.21 LOSS OF WEIGHT 02/11/2014 [employer]ATE WELLNESS COORDINATOR, ALEXEY 787.01 NAUSEA WITH VOMITING 02/11/2014 [employer]ATE WELLNESS COORDINATOR, ALEXEY 787.20 DYSPHAGIA, UNSPECIFIED 02/11/2014 [employer]ATE WELLNESS COORDINATOR, ALEXEY V04.81 FLU SHOT 02/11/2014 LARSEN DO, AZUL K 783.21 LOSS OF WEIGHT 02/11/2014 LARSEN DO, AZUL K 787.01 NAUSEA WITH VOMITING 02/11/2014 LARSEN DO, AZUL K 787.20 DYSPHAGIA, UNSPECIFIED 02/11/2014 LARSEN DO, AZUL K V04.81 FLU SHOT 02/11/2014 [employer] WELLNESS COORDINATOR, ALEXEY 783.21 LOSS OF WEIGHT 02/11/2014 [employer]ATE WELLNESS COORDINATOR, ALEXEY 787.01 NAUSEA WITH VOMITING 02/11/2014 [employer]ATE WELLNESS COORDINATOR, ALEXEY 787.20 DYSPHAGIA, UNSPECIFIED 02/11/2014 [employer]ATE WELLNESS COORDINATOR, ALEXEY V04.81 FLU SHOT 02/11/2014 [employer]K CORPORATE WELLNESS COORDINATOR, SHENG R 783.21 LOSS OF WEIGHT 02/11/2014 [employer]K CORPORATE WELLNESS COORDINATOR, SHENG R 787.01 NAUSEA WITH VOMITING 02/11/2014 [employer]K CORPORATE WELLNESS COORDINATOR, SHENG R 787.20 DYSPHAGIA, UNSPECIFIED 02/11/2014 [employer]K CORPORATE WELLNESS COORDINATOR, SHENG R V04.81 FLU SHOT 07/31/2014 LARSEN SVITLANA FAUSTINA K 461.9 SINUSITIS ACUTE 07/31/2014 LARSEN DOAZUL Armando 466.0 BRONCHITIS, ACUTE 07/31/2014 [employer] WELLNESS COORDINATOR, ALEXEY 461.9 SINUSITIS ACUTE 07/31/2014 [employer] WELLNESS COORDINATOR, ALEXEY 466.0 BRONCHITIS, ACUTE 07/31/2014 [employer]K CORPORATE WELLNESS COORDINATOR, SHENG R 461.9 SINUSITIS ACUTE 07/31/2014 [employer] CORPORATE WELLNESS COORDINATOR, SHENG R 466.0 BRONCHITIS, ACUTE 08/25/2014 FUNK CORPORATE WELLNESS COORDINATOR, SHENG R 786.2 COUGH 11/07/2014 Ot 719.41 11/07/2014 YURIY POLK M Ot 625.4 11/07/2014 FORD MONZON, YURIY M Ot 626.2 11/07/2014 JOSE DANIEL POLKUA M Ot 530.81 11/07/2014 YURIY POLK M Ot 787.20 03/15/2016 Ot 719.41 JOINT PAIN- SHLDER 03/15/2016 YURIY POLK M Ot 625.4 PREMENSTRUAL TENSION 03/15/2016 YURIY POLK M Ot 626.2 EXCESSIVE MENSTRUATION 03/15/2016 YURIY POLK M Ot 530.81 ESOPHAGEAL REFLUX 03/15/2016 YURIY POLK M Ot 787.20 DYSPHAGIA, UNSPECIFIED 03/15/2016 MIA MORA MD ([facility]) Ot 715.36 LOC OSTEOARTH NOS-L/LEG 03/15/2016 MIA MORA MD ([facility]) Ot 719.41 JOINT PAIN-SHLDER 03/15/2016 MIA MORA MD (NITISH) Ot V70.3 MED EXAM NEC-ADMIN PURP 03/16/2016 NIYAH RODRÍGUEZ Ot Z12.31 ENCNTR SCREEN MAMMOGRAM FOR MALIGNANT NE 03/16/2016 NIYAH RODRÍGUEZ FUND CONTROLLER Ot Z12.31 ENCNTR SCREEN MAMMOGRAM FOR MALIGNANT NE 06/22/2016 Ot 719.41 JOINT PAIN- SHLDER 06/22/2016 YURIY POLK M Ot 625.4 PREMENSTRUAL TENSION 06/22/2016 YURIY POLK M Ot 626.2 EXCESSIVE MENSTRUATION 06/22/2016 YURIY POLK M Ot 530.81 ESOPHAGEAL REFLUX 06/22/2016 YURIY POLK Ot 787.20 DYSPHAGIA, UNSPECIFIED 06/22/2016 MIA MORA MD ([facility]) Ot 715.36 LOC OSTEOARTH NOS-L/LEG 06/22/2016 MIA MORA MD ([facility]) Ot 719.41 JOINT PAIN-SHLDER 06/22/2016 MIA MORA MD ([facility]) Ot V70.3 MED EXAM NEC-ADMIN PURP 06/22/2016 NIYAH RODRÍGUEZ FUND CONTROLLER Ot Z12.31 ENCNTR SCREEN MAMMOGRAM FOR MALIGNANT NE 07/13/2016 NIYAH RODRÍGUEZ FUND CONTROLLER Ot Z12.31 ENCNTR SCREEN MAMMOGRAM FOR MALIGNANT NE 07/13/2016 Ot 719.41 JOINT PAIN- SHLDER 07/13/2016 YURIY POLK Ot 625.4 PREMENSTRUAL TENSION 07/13/2016 YURIY POLK Ot 626.2 EXCESSIVE MENSTRUATION 07/13/2016 YURIY POLK Ot 530.81 ESOPHAGEAL REFLUX 07/13/2016 YURIY POLK Ot 787.20 DYSPHAGIA, UNSPECIFIED 07/13/2016 MIA MORA MD ([facility]) Ot 715.36 LOC OSTEOARTH NOS-L/LEG 07/13/2016 MIA MORA MD (DDU) Ot 719.41 JOINT PAIN-SHLDER 07/13/2016 MIA MORA MD ([facility]) Ot V70.3 MED EXAM NEC-ADMIN PURP 07/13/2016 NIYAH RODRÍGUEZ FUND CONTROLLER Ot Z12.31 ENCNTR SCREEN MAMMOGRAM FOR MALIGNANT NE 07/14/2016 NIYAH RODRÍGUEZ FUND CONTROLLER Ot Z12.31 ENCNTR SCREEN MAMMOGRAM FOR MALIGNANT NE 07/15/2016 NIYAH RODRÍGUEZ FUND CONTROLLER Ot G47.33 OBSTRUCTIVE SLEEP APNEA (ADULT) (PEDIATR 07/15/2016 NIYAH RODRÍGUEZ FUND CONTROLLER Ot G47.33 OBSTRUCTIVE SLEEP APNEA (ADULT) (PEDIATR 08/26/2016 NIYAH RODRÍGUEZ FUND CONTROLLER Ot Z12.31 ENCNTR SCREEN MAMMOGRAM FOR MALIGNANT NE 08/26/2016 Ot 719.41 JOINT PAIN- SHLDER 08/26/2016 YURIY POLK Ot 625.4 PREMENSTRUAL TENSION 08/26/2016 YURIY POLK Ot 626.2 EXCESSIVE MENSTRUATION 08/26/2016 YURIY POLK Ot 530.81 ESOPHAGEAL REFLUX 08/26/2016 YURIY POLK Ot 787.20 DYSPHAGIA, UNSPECIFIED 08/26/2016 MIA MORA MD ([facility]) Ot 715.36 LOC OSTEOARTH NOS-L/LEG 08/26/2016 MIA MORA MD ([facility]) Ot 719.41 JOINT PAIN-SHLDER 08/26/2016 MIA MORA MD (DDU) Ot V70.3 MED EXAM NEC-ADMIN PURP 08/26/2016 NIYAH RODRÍGUEZ FUND CONTROLLER Ot Z12.31 ENCNTR SCREEN MAMMOGRAM FOR MALIGNANT NE 03/14/2017 Ot 719.41 JOINT PAIN- SHLDER 03/14/2017 YURIY POLK Ot 625.4 PREMENSTRUAL TENSION 03/14/2017 YURIY POLK Ot 626.2 EXCESSIVE MENSTRUATION 03/14/2017 YURIY POLK Ot 530.81 ESOPHAGEAL REFLUX 03/14/2017 YURIY POLK Ot 787.20 DYSPHAGIA, UNSPECIFIED 03/14/2017 MIA MORA MD ([facility]) Ot 715.36 LOC OSTEOARTH NOS-L/LEG 03/14/2017 MIA MORA MD (DD[facility]) Ot 719.41 JOINT PAIN-SHLDER 03/14/2017 MIA MORA MD (DDU) Ot V70.3 MED EXAM NEC-ADMIN PURP 03/14/2017 NIYAH RODRÍGUEZ FUND CONTROLLER Ot Z12.31 ENCNTR SCREEN MAMMOGRAM FOR MALIGNANT NE 07/24/2017 Ot 719.41 JOINT PAIN- SHLDER 07/24/2017 YURIY POLK Ot 625.4 PREMENSTRUAL TENSION 07/24/2017 YURIY POLK Ot 626.2 EXCESSIVE MENSTRUATION 07/24/2017 YURIY POLK Ot 530.81 ESOPHAGEAL REFLUX 07/24/2017 YURIY POLK Ot 787.20 DYSPHAGIA, UNSPECIFIED 07/24/2017 MIA MORA MD ([facility]) Ot 715.36 LOC OSTEOARTH NOS-L/LEG 07/24/2017 MIA MORA MD (DDU) Ot 719.41 JOINT PAIN-SHLDER 07/24/2017 MIA MORA MD ([facility]) Ot V70.3 MED EXAM NEC-ADMIN PURP 07/24/2017 NIYAH RODRÍGUEZ FUND CONTROLLER Ot Z12.31 ENCNTR SCREEN MAMMOGRAM FOR MALIGNANT NE 07/24/2017 RAY NEVAREZ R CORPORATE WELLNESS COORDINATOR Ot Z12.31 ENCNTR SCREEN MAMMOGRAM FOR MALIGNANT NE 07/24/2017 RAY NEVAREZ CORPORATE WELLNESS COORDINATOR Ot N95.0 POSTMENOPAUSAL BLEEDING 07/24/2017 RAY NEVAREZ CORPORATE WELLNESS COORDINATOR Ot Z80.41 FAMILY HISTORY OF MALIGNANT NEOPLASM OF 07/25/2017 JOAQUINA COLLINS MD Ot M47.816 SPONDYLOSIS W/O MYELOPATHY OR RADICULOPA 07/25/2017 JOAQUINA COLLINS MD Ot Z02.71 ENCOUNTER FOR DISABILITY DETERMINATION 07/25/2017 JOAQUINA COLLINS MD, Ot M47.816 SPONDYLOSIS W/O MYELOPATHY OR RADICULOPA 07/25/2017 JOAQUINA COLLINS MD Ot Z02.71 ENCOUNTER FOR DISABILITY DETERMINATION 03/26/2018 YURIY POLK Ot 625.4 PREMENSTRUAL TENSION 03/26/2018 YURIY POLK Ot 626.2 EXCESSIVE MENSTRUATION 03/26/2018 YURIY POLK Ot 530.81 ESOPHAGEAL REFLUX 03/26/2018 YURIY POLK Ot 787.20 DYSPHAGIA, UNSPECIFIED 03/26/2018 MIA MORA MD ([facility]) Ot 715.36 LOC OSTEOARTH NOS-L/LEG 03/26/2018 MIA MORA MD ([facility]) Ot 719.41 JOINT PAIN-SHLDER 03/26/2018 MIA MORA MD ([facility]) Ot V70.3 MED EXAM NEC-ADMIN PURP 03/26/2018 NIYAH RODRÍGUEZ FUND CONTROLLER Ot Z12.31 ENCNTR SCREEN MAMMOGRAM FOR MALIGNANT NE 03/26/2018 RAY NEVAREZ CORPORATE WELLNESS COORDINATOR Ot Z12.31 ENCNTR SCREEN MAMMOGRAM FOR MALIGNANT NE 03/26/2018 RAY NEVAREZ CORPORATE WELLNESS COORDINATOR Ot N95.0 POSTMENOPAUSAL BLEEDING 03/26/2018 RAY NEVAREZ CORPORATE WELLNESS COORDINATOR Ot Z80.41 FAMILY HISTORY OF MALIGNANT NEOPLASM OF 03/26/2018 JOAQUINA COLLINS MD Ot M47.816 SPONDYLOSIS W/O MYELOPATHY OR RADICULOPA 03/26/2018 JOAQUINA COLLINS MD Ot Z02.71 ENCOUNTER FOR DISABILITY DETERMINATION 03/26/2018 LAZARA ARGUETA APRN Ot Z12.31 ENCNTR SCREEN MAMMOGRAM FOR MALIGNANT NE 04/28/2018 LAZARA ARGUETA APRN Ot Z12.31 ENCNTR SCREEN MAMMOGRAM FOR MALIGNANT NE 05/09/2018 LENA APRTIDA DO Ot Z01.818 ENCOUNTER FOR OTHER PREPROCEDURAL EXAMIN 05/10/2018 LENA PARTIDA DO Ot Z01.818 ENCOUNTER FOR OTHER PREPROCEDURAL EXAMIN 05/10/2018 LENA PARTIDA DO Ot Z01.818 ENCOUNTER FOR OTHER PREPROCEDURAL EXAMIN Procedures Code Description [place] [address] ROUTINE VENIPUNCTURE 03/01/2012 06348 TSH 03/02/2012 92514 T4 FREE 03/02/2012 10343 T3 TOTAL 03/02/2012 78161 ROUTINE VENIPUNCTURE 03/20/2012 95997 TRICHOMONAS (IN-HOUSE) 03/20/2012 77331 MAMMOGRAM, SCREENING 03/21/2012 25693 SYPHILLIS-STATE LAB 03/21/2012 88728 HIV-STATE LAB 03/21/2012 17230 CULTURE UROGENITAL 03/21/2012 35578 GC/CHLAM PROBE (STATE) 03/21/2012 61040 PAP SMEAR 03/21/2012 Q0091 PAP SMEAR OBTAIN SMEAR 03/21/[address] SPINE, CERVICAL W/O CONTRAST 05/03/[address] EXTREMITY, UPPER, LEFT, W /O CONTRAST 05/03/2012 35846 MRI SPINE (CERVICAL) W/O CONTRAST 05/04/2012 56225 MRI EXTREMITY JOINT, UPPER LEFT, W/O CONTRAST 05/04/2012 47183 PSYCH IND W/MED CK 20 05/04/2012 80182 PSYCH IND W/MED CK 20 06/20/2012 94403 ROUTINE VENIPUNCTURE 01/31/2013 31923 CBC 01/31/2013 39898 CMP 01/31/2013 86084 LIPID PANEL 01/31/2013 [id number] GFR CALC (RESULT ONLY) 01/31/2013 59160 LITHIUM 01/31/2013 48507 T4 FREE 01/31/2013 49563 T3 TOTAL 01/31/2013 09060 TSH 01/31/2013 94798 OXIMETRY 06/17/2013 13707 OXIMETRY 07/12/2013 47175 JOINT INJECTION- LARGE JOINT (SPECIFY MEDCIN DESCRIPTION) 10/12/2013 03512 EXCISION BENIGN LESION <0.5 CM (SPECIFY LOCATION IN MEDCIN DESCRIPTION) 01/13/2014 78595 BARIUM SWALLOW XRAY MODIFIED 02/11/2014 89313 ROUTINE VENIPUNCTURE 06/13/2014 34225 CBC 06/13/2014 [id number] GFR CALC (RESULT ONLY) 06/13/2014 46780 CMP 06/13/2014 27486 LITHIUM 06/13/2014 35960 T4 FREE 06/13/2014 89371 TSH 06/13/2014 99784 ROUTINE VENIPUNCTURE 08/15/2014 80512 LITHIUM 08/15/2014 60177 XRAY CHEST 2 VIEW 08/25/2014 Results Test Result Range CBC With Differential/Platelet - 03/07/16 11:39 WBC 6.2 x10E3/uL 3.4-10.8 RBC 4.53 x10E6/uL 3.77-5.28 Hemoglobin 12.7 g/dL 11.1-15.9 Hematocrit 38.6 % 34.0-46.6 MCV 85 fL 79-97 MCH 28.0 pg 26.6-33.0 MCHC 32.9 g/dL 31.5-35.7 RDW 14.5 % 12.3-15.4 Platelets 218 x10E3/uL 150-379 Neutrophils 61 % Lymphs 28 % Monocytes 7 % Eos 3 % Basos 1 % Neutrophils (Absolute) 3.8 x10E3/uL 1.4-7.0 Lymphs (Absolute) 1.7 x10E3/uL 0.7-3.1 Monocytes(Absolute) 0.4 x10E3/uL 0.1-0.9 Eos (Absolute) 0.2 x10E3/uL 0.0-0.4 Baso (Absolute) 0.0 x10E3/uL 0.0-0.2 Immature Granulocytes 0 % Immature Grans (Abs) 0.0 x10E3/uL 0.0-0.1 Comp. Metabolic Panel (14) - 03/07/16 11:39 Glucose, Serum 91 mg/dL 65-99 BUN 11 mg/dL 6-24 Creatinine, Serum 0.78 mg/dL 0.57-1.00 eGFR If NonAfricn Am 88 mL/min/1.73 >59 eGFR If Africn Am 101 mL/min/1.73 >59 BUN/Creatinine Ratio 14 9-23 Sodium, Serum 142 mmol/L 136-144 Potassium, Serum 3.9 mmol/L 3.5-5.2 Chloride, Serum 101 mmol/L 97-106 Carbon Dioxide, Total 26 mmol/L 18-29 Calcium, Serum 9.3 mg/dL 8.7-10.2 Protein, Total, Serum 6.8 g/dL 6.0-8.5 Albumin, Serum 4.3 g/dL 3.5-5.5 Globulin, Total 2.5 g/dL 1.5-4.5 A/G Ratio 1.7 1.1-2.5 Bilirubin, Total 0.5 mg/dL 0.0-1.2 Alkaline Phosphatase, S 109 IU/L 39-117 AST (SGOT) 32 IU/L 0-40 ALT (SGPT) 34 IU/L 0-32 Lipid Panel - 03/07/16 11:39 Cholesterol, Total 175 mg/dL 100-199 Triglycerides 144 mg/dL 0-149 HDL Cholesterol 32 mg/dL >39 VLDL Cholesterol Abad 29 mg/dL 5-40 LDL Cholesterol Calc 114 mg/dL 0-99 Genital Culture, Routine - 03/07/16 11:39 Genital Culture, Routine Note Pap Lb, rfx HPV ASCU - 03/07/16 11:39 DIAGNOSIS: Comment Specimen adequacy: Comment Clinician provided ICD10: Comment Performed by: Comment . . Note: Comment . Comment Comp. Metabolic Panel (14) - 11/29/16 09:21 Glucose, Serum 123 mg/dL 65-99 BUN 10 mg/dL 6-24 Creatinine, Serum 0.76 mg/dL 0.57-1.00 eGFR If NonAfricn Am 90 mL/min/1.73 >59 eGFR If Africn Am 104 mL/min/1.73 >59 BUN/Creatinine Ratio 13 9-23 Sodium, Serum 142 mmol/L 134-144 Potassium, Serum 3.8 mmol/L 3.5-5.2 Chloride, Serum 101 mmol/L 96-106 Carbon Dioxide, Total 24 mmol/L 18-29 Calcium, Serum 9.2 mg/dL 8.7-10.2 Protein, Total, Serum 6.2 g/dL 6.0-8.5 Albumin, Serum 3.9 g/dL 3.5-5.5 Globulin, Total 2.3 g/dL 1.5-4.5 A/G Ratio 1.7 1.2-2.2 Bilirubin, Total 0.3 mg/dL 0.0-1.2 Alkaline Phosphatase, S 119 IU/L 39-117 AST (SGOT) 27 IU/L 0-40 ALT (SGPT) 30 IU/L 0-32 Lipid Panel - 11/29/16 09:21 Cholesterol, Total 162 mg/dL 100-199 Triglycerides 116 mg/dL 0-149 HDL Cholesterol 31 mg/dL >39 VLDL Cholesterol Abad 23 mg/dL 5-40 LDL Cholesterol Calc 108 mg/dL 0-99 Hemoglobin A1c - 11/29/16 09:21 Hemoglobin A1c 6.0 % 4.8-5.6 CULTURE, GENITAL - 03/10/17 13:59 CULTURE, GENITAL SEE NOTE NR SUREPATH PAP AND HPV mRNA E6/E7 - 03/10/17 13:59 CLINICAL INFORMATION: NR LMP: NR PREV. PAP: 03/2016 NR PREV. BX: NONE NR SOURCE: [employer]ervix [facility] [place] STATEMENT OF ADEQUACY: [facility] [place] INTERPRETATION/RESULT: [facility] [place] MOLDING AND TRIM INSTALLER: AARON HPV mRNA E6/E7, SUREPATH VIAL Not Detected NOT DETECTED REVIEW MOLDING AND TRIM INSTALLER: AARON TISSUE, SPECIMEN A - 04/04/17 13:20 A SOURCE NR A GROSS DESCRIPTION NR A DIAGNOSIS [facility] [place] LIPID PANEL - 11/21/17 09:46 CHOLESTEROL, TOTAL 201 mg/dL <200 HDL CHOLESTEROL 37 mg/dL >50 TRIGLYCERIDES 135 mg/dL <150 LDL-CHOLESTEROL 138 mg/dL (calc) NRG CHOL/HDLC RATIO 5.4 (calc) <5.0 NON HDL CHOLESTEROL 164 mg/dL (calc) <130 CMP - 02/15/18 10:38 GLUCOSE 131 mg/dL 65-99 UREA NITROGEN (BUN) 16 mg/dL 7-25 CREATININE 0.72 mg/dL 0.50-1.05 eGFR NON-AFR. TRISTANIAN 96 mL/min/1.73m2 > OR=60 eGFR 111 mL/min/1.73m2 > OR=60 BUN/CREATININE RATIO NOT APPLICABLE (calc) 6-22 SODIUM 141 mmol/L 135-146 POTASSIUM 4.1 mmol/L 3.5-5.3 CHLORIDE 106 mmol/L 98-110 CARBON DIOXIDE 24 mmol/L 20-32 CALCIUM 10.0 mg/dL 8.6-10.4 PROTEIN, TOTAL 6.8 g/dL 6.1-8.1 ALBUMIN 4.3 g/dL 3.6-5.1 GLOBULIN 2.5 g/dL (calc) 1.9-3.7 ALBUMIN/GLOBULIN RATIO 1.7 (calc) 1.0-2.5 BILIRUBIN, TOTAL 0.4 mg/dL 0.2-1.2 ALKALINE PHOSPHATASE 92 U/L 33-130 AST 13 U/L 10-35 ALT 18 U/L 6-29 A1C - 02/15/18 10:38 HEMOGLOBIN A1c 5.6 % of total Hgb <5.7 Encounters ACCT No. Visit Date/Time Discharge Status Pt. Type Provider Facility Loc./Unit Complaint [id number] 08/25/2014 12:53:00 08/25/2014 23:59:59 CLS Outpatient SHENG FUNK APRN [id number] 08/15/2014 08:00:00 08/15/2014 23:59:59 CLS Outpatient ALEXEY VEGAS APRN [id number] 07/31/2014 15:03:00 07/31/2014 23:59:59 CLS Outpatient AZUL LARSEN DO [id number] 07/25/2014 15:11:00 07/25/2014 23:59:59 SARI Outpatient ALEXEY VEGAS APRN [id number] 06/13/2014 09:00:00 06/13/2014 23:59:59 CLS Outpatient ALEXEY VEGAS APRN [id number] 06/12/2014 15:04:00 06/12/2014 23:59:59 CLS Outpatient ALEXEY VEGAS APRN [id number] 02/11/2014 10:25:00 02/11/2014 23:59:59 CLS Outpatient AZUL LARSEN DO [id number] 01/13/2014 10:18:00 01/13/2014 23:59:59 CLS Outpatient AZUL LARSEN DO [id number] 12/09/2013 10:50:00 12/09/2013 23:59:59 CLS Outpatient [facility] [id number] 10/23/2013 08:15:00 10/23/2013 23:59:59 CLS Outpatient LARSEN DOAZUL Armando [id number] 10/12/2013 12:23:00 10/12/2013 23:59:59 CLS Outpatient LARSEN DOAZUL Armando [id number] 08/29/2013 10:35:00 08/29/2013 23:59:59 CLS Outpatient LARSEN DOSVITLANAMarilee Roberts [id number] 07/25/2013 11:27:00 07/25/2013 23:59:59 CLS Outpatient [facility] COORDINATORSANDI [id number] 07/12/2013 10:28:00 07/12/2013 23:59:59 CLS Outpatient LARSEN DOSVITLANAMarilee Roberts [id number] 07/05/2013 13:26:00 07/05/2013 23:59:59 CLS Outpatient MURPHY [facility] COORDINATORKALIN [id number] 06/17/2013 13:23:00 06/17/2013 23:59:59 CLS Outpatient FUNK CORPORATE WELLNESS COORDINATORKIMSHENG R [id number] 04/08/2013 13:01:00 04/08/2013 23:59:59 CLS Outpatient [facility]ORDINAT[facility]ALIN [id number] 03/15/2013 00:00:00 03/15/2013 23:59:59 CLS Outpatient [facility]ORDINAT[facility]ALIN [id number] 01/31/2013 10:00:00 01/31/2013 23:59:59 CLS Outpatient LARSEN DOAZUL Armando [id number] 06/20/2012 11:32:00 06/20/2012 23:59:59 CLS Outpatient [facility]ALIN [id number] 06/13/2012 10:14:00 06/13/2012 23:59:59 CLS Outpatient LARSEN DOAZUL Armando [id number] 05/03/2012 08:28:00 05/03/2012 23:59:59 CLS Outpatient CHAVA DO AZUL Roberts [id number] 04/18/2012 12:55:00 04/18/2012 23:59:59 CLS Outpatient [id number] 03/26/2012 12:19:00 03/26/2012 23:59:59 CLS Outpatient [id number] 03/01/2012 11:44:00 03/01/2012 23:59:59 CLS Outpatient GENSWEIDER DDS, OSWALDO M [id number] 11/28/2012 08:26:00 Document Registration [id number] 10/25/2012 11:42:00 Document Registration [id number] 10/09/2012 08:19:00 Document Registration [id number] 05/09/2018 12:30:00 05/09/2018 12:45:00 DIS Outpatient LENA PARTIDA DO [facility] PREOP COLONOSCOPY [id number] 03/26/2018 07:27:00 03/26/2018 23:59:59 CLS Outpatient LAZARA ARGUETA CORPORATE WELLNESS COORDINATOR [facility] RAD SCREENING [id number] 07/24/2017 09:35:00 07/24/2017 23:59:59 CLS Outpatient JOAQUINA COLLINS MD [facility] RAD CHRONIC BACK PAIN [id number] 03/21/2017 11:28:00 03/21/2017 23:59:59 CLS Outpatient RAY NEVAREZ CORPORATE WELLNESS COORDINATOR [facility] RAD SCREENING [id number] 03/21/2017 11:24:00 03/21/2017 23:59:59 CLS Outpatient RAY NEVAREZ CORPORATE WELLNESS COORDINATOR [facility] RAD POSTMEOPAUSAL BLEEDING [id number] 07/14/2016 19:59:00 07/15/2016 06:50:00 DIS Outpatient NIYAH RODRÍGUEZ FUND CONTROLLER [facility] SLEEP OBSTRUCTIVE SLEEP APNEA [id number] 03/15/2016 09:21:00 03/15/2016 23:59:59 CLS Outpatient NIYAH RODRÍGUEZ FUND CONTROLLER [facility] RAD SCREENING [id number] 11/07/2014 11:44:00 11/07/2014 23:59:59 CLS Outpatient MIA MORA MD (DDU) [facility] RAD DDU [id number] 02/21/2014 10:21:00 02/21/2014 23:59:59 CLS Outpatient YURIY POLK [facility] RAD SOLID FOOD DSYPHAGIA [id number] 11/02/2012 14:34:00 11/02/2012 23:59:59 CLS Outpatient YURIY POLK [facility] RAD PRE MENOPAUSAL MENORRHAGIA [id number] 05/15/2018 05:55:00 ACT Outpatient LENA PARTIDA DO [facility] ENDO SCREENING [id number] 05/07/2012 08:55:00 Document Registration [id number] 03/08/2016 13:06:00 Document Registration [id number] 03/10/2016 10:05:00 Document Registration [id number] 11/08/2014 04:39:11 ACT Document Registration [id number] 11/30/2016 11:07:00 Document Registration [id number] 03/09/2016 18:06:00 Document Registration [id number] 11/21/2017 09:00:00 11/21/2017 23:59:59 CLS Outpatient RAY NEVAREZ [facility] [id number] 02/15/2018 10:40:00 Document Registration [id number] 11/21/2017 09:00:00 Document Registration [id number] 04/04/2017 13:20:00 Document Registration [id number] 03/10/2017 13:40:00 Document Registration
[2018-05-15] MEDS ORDERED: CLINDAMYCIN 600 MG/50 ML IVPB 50 ML IV ONE ×2 (07:43→08:00)
--- NOTE | 2018-05-15 07:44 | Progress Note-Pre Operative ---
Pre-Operative Progress Note H&P Reviewed The H&P was reviewed, patient examined and no changes noted. Date Seen by Provider: May 15, 2018 Time Seen by Provider: 07:43 Date H&P Reviewed: May 15, 2018 Time H&P Reviewed: 07:44 Pre-Operative Diagnosis: screening colonoscopy LENA PARTIDA DO May 15, 2018 07:44
--- NOTE | 2018-05-15 08:13 | Progress Note-Post Operative ---
Post-Operative Progess Note Surgeon (s)/Shade Classifier (s) Surgeon LENA PARTIDA DO Shade Classifier: na Pre-Operative Diagnosis screening colonoscopy Post-Operative Diagnosis colitis low grade Procedure & Operative Findings Date of Procedure 05/15/18 Procedure Performed/Findings colonoscopy with cold biopsies Anesthesia Type per rn visiting Estimated Blood Loss Estimated blood loss (mL): none Specimens/Packing Specimens Removed colon random LENA PARTIDA DO May 15, 2018 08:13
--- NOTE | 2018-05-15 08:14 | Discharge Inst-Simple/Standard ---
Discharge Inst-Standard Patient Instructions/Follow Up Plan of Care/Instructions/FU: 2 weeks Caden Activity as Tolerated: Yes Discharge Diet: Regular Diet LENA PARTIDA DO May 15, 2018 08:14
[2018-05-15 08:30] VITALS: BP 120/81
[2018-05-15 08:55] VITALS: BP 105/73
[2018-05-15 09:02] VITALS: BP 105/73
--- NOTE | 2018-05-15 10:14 | OPERATIVE REPORT ---
DATE OF SERVICE: 05/15/2018 PREOPERATIVE DIAGNOSIS: Screening colonoscopy. POSTOPERATIVE DIAGNOSIS: Colitis, low grade. PROCEDURE: Colonoscopy with cold biopsies. SURGEON: Lena Negrete DO ANESTHESIA: Per INTERACTIVE MEDIA MARKETING STRATEGIST. ESTIMATED BLOOD LOSS: None. COMPLICATIONS: None. INDICATIONS: The patient is a 53-year-old female, who has not had screening colonoscopy. She understood risks and benefits of procedure and wished to proceed with procedure. Consent was signed in the chart. PROCEDURE IN DETAIL: The patient was taken to the endoscopy suite, placed in left recumbent position. Timeout was performed. Digital rectal exam was performed. There were no palpable polyps, masses or ulcerations. Scope was inserted in the rectum and advanced all the way to the cecum with minimal difficulty. Prep was adequate with irrigation and suction. Scope was then slowly retracted back. There were no polyps or masses within the cecum, ascending, transverse, descending, sigmoid and rectum. Throughout the entire colon, there are multiple small ulcerations or inflammation consistent with a low-grade colitis. Random biopsies were obtained as the scope was being withdrawn. Once in the rectum, scope was retroflexed noting no other pathology except for the suggestion of low-grade colitis. The scope was then returned to its normal position, slowly withdrawn until completely removed. The patient tolerated the procedure well without any complications and taken to recovery room in stable condition. RECOMMENDATIONS: The patient will follow up in the office in 2 weeks to discuss pathology results. Depending on pathology results and depending on next colonoscopy. Job ID: [id number] DocumentID: [id number] Dictated Date: 05/15/2018 08:17:50 Parole Agent Date: 05/15/2018 10:13:30 Dictated By: LENA NEGRETE DO
--- NOTE | 2018-05-15 12:29 | Anesthesia-General Post-Op ---
MAC Patient Condition Mental Status/LOC: Same as Preop Cardiovascular: Satisfactory Nausea/Vomiting: Absent Respiratory: Satisfactory Pain: Controlled Complications: Absent Post Op Complications Complications None Follow Up Care/Instructions Patient Instructions None needed. Anesthesiology Discharge Order Discharge Order Patient is doing well, no complaints, stable vital signs, no apparent adverse anesthesia problems. No complications reported per nursing. BRENT MABRY CRNA May 15, 2018 12:29
== END 2018-05-15 09:02 | disposition home or self-care (01) ==
LOC: ENDO 05:55
PROVIDERS: ATTEND Surgery
DX: Z12.11 Encounter for screening for malignant neoplasm of colon (principal); K52.9 Noninfective gastroenteritis and colitis, unspecified; K63.89 Other specified diseases of intestine; I10 Essential (primary) hypertension; J44.9 Chronic obstructive pulmonary disease, unspecified; G47.33 Obstructive sleep apnea (adult) (pediatric); R73.03 Prediabetes; K21.9 Gastro-esophageal reflux disease without esophagitis; E66.01 Morbid (severe) obesity due to excess calories; Z68.43 Body mass index [BMI] 50.0-59.9, adult; Z79.899 Other long term (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

== ENCOUNTER → 2018-08-24 | Outpatient (CLI) | payer MEDICAID | LOC: CARD 12:07 | PROVIDERS: ATTEND Nurse Practitioner Primary Care | DX: J44.9 Chronic obstructive pulmonary disease, unspecified (principal); R06.01 Orthopnea | CPT/HCPCS: 93306 ==

== ENCOUNTER 2018-09-03 19:43 | Emergency (ER) | payer MEDICAID ==
[~2018-09-03] VITALS: Ht 160 cm; Wt 121.1 kg
[2018-09-03] MEDS ORDERED: LACTATED RINGERS 1,000 ML IV ONE ×2 (19:58→21:21)
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
[2018-09-03 20:17] LABS: BILIRUBIN,URINE NEGATIVE (NEGATIVE); CLARITY,URINE CLEAR; COLOR,URINE YELLOW; GLUCOSE, URINE (UA) NEGATIVE (NEGATIVE); KETONES,URINE NEGATIVE (NEGATIVE); LEUKOCYTE ESTERASE ,URINE NEGATIVE (NEGATIVE); NITRITE,URINE NEGATIVE (NEGATIVE); PH,URINE 6.5 (5-9); PROTEIN,URINE NEGATIVE (NEGATIVE); UROBILINOGEN,URINE 1 MG/DL (NORMAL)
[2018-09-03 20:21] LABS: BASOPHILS % (AUTO) 0 % (0-10); EOSINOPHILS # (AUTO) 0.2 10^3/uL (0.0-0.3); EOSINOPHILS % (AUTO) 3 % (0-10); HEMATOCRIT 41 % (35-52); HEMOGLOBIN 13.7 G/DL (11.5-16.0); LYMPHOCYTES # (AUTO) 2.1 X 10^3 (1.0-4.0); LYMPHOCYTES % (AUTO) 31 % (12-44); MEAN CORPUSCULAR HEMOGLOBIN 28 PG (25-34); MEAN CORPUSCULAR HGB CONC 34 G/DL (32-36); MEAN CORPUSCULAR VOLUME 84 FL (80-99); MEAN PLATELET VOLUME 10.1 FL (7.4-10.4); MONOCYTES # (AUTO) 0.9 X 10^3 (0.0-1.0); MONOCYTES % (AUTO) 13 % (0-12); NEUTROPHILS # (AUTO) 3.6 X 10^3 (1.8-7.8); NEUTROPHILS % (AUTO) 53 % (42-75); PLATELET COUNT 207 10^3/uL (130-400); RED CELL DISTRIBUTION WIDTH 13.8 % (10.0-14.5); WHITE BLOOD COUNT 6.8 10^3/uL (4.3-11.0)
[2018-09-03 20:32] LABS: BACTERIA,URINE FEW /HPF; WBC,URINE 0-2 /HPF
[2018-09-03 20:32] LABS: INR 0.9 (0.8-1.4); PROTHROMBIN TIME PATIENT 12.9 SEC (12.2-14.7)
[2018-09-03 20:40] LABS: AMPHETAMINE SCREEN, URINE NEGATIVE (NEGATIVE); BARBITURATE SCREEN URINE NEGATIVE (NEGATIVE); BENZODIAZEPINES SCREEN URINE NEGATIVE (NEGATIVE); CANNABINOID SCREEN, URINE NEGATIVE (NEGATIVE); COCAINE SCREEN URINE NEGATIVE (NEGATIVE); METHADONE STAT NEGATIVE (NEGATIVE); METHAMPHETAMINE SCREEN URINE S NEGATIVE (NEGATIVE); OPIATE SCREEN URINE NEGATIVE (NEGATIVE); OXYCODONE STAT NEGATIVE (NEGATIVE); PROPOXYPHENE STAT NEGATIVE (NEGATIVE); TRICYCLIC ANTIDEPRESSANTS SCRE NEGATIVE (NEGATIVE)
[2018-09-03 20:41] LABS: ALANINE AMINOTRANSFERASE 25 U/L (0-55); ALBUMIN 4.2 GM/DL (3.2-4.5); ALKALINE PHOSPHATASE 112 U/L (40-136); BILIRUBIN,TOTAL 0.7 MG/DL (0.1-1.0); BUN/CREATININE RATIO 13; CALCIUM 9.6 MG/DL (8.5-10.1); CARBON DIOXIDE 23 MMOL/L (21-32); CHLORIDE 103 MMOL/L (98-107); CREATININE SERUM 0.94 MG/DL (0.60-1.30); GFR ESTIMATED > 60; GLUCOSE 90 MG/DL (70-105); MAGNESIUM 2.5 MG/DL (1.8-2.4); POTASSIUM 3.4 MMOL/L (3.6-5.0); SODIUM 139 MMOL/L (135-145); TOTAL PROTEIN 7.2 GM/DL (6.4-8.2)
--- NOTE | 2018-09-03 20:46 | Diagnostic Imaging Report ---
INDICATION: Hypotension and productive cough EXAM: Portable upright AP view of the chest is obtained. COMPARISON: No previous study is available at this time for comparison. FINDINGS: There is mild cardiomegaly and pulmonary venous congestion. There is increased density in the medial left upper lobe which results in obscuration of the aortic knob. No pneumothorax is identified. There is no evidence of significant pleural fluid. IMPRESSION: Abnormal density in the medial left upper lobe which may be due to pneumonia. Followup PA and lateral views of the chest are recommended to document resolution. Dictated by: Dictated on workstation # [id number]
[2018-09-03 21:57] VITALS: BP 118/78
[2018-09-03] MEDS ORDERED: CEFD300C3 PO (22:27)
== END 2018-09-03 22:03 | disposition home or self-care (01) ==
LOC: EDUNIT# 19:43 → ER 19:44
DX: I95.9 Hypotension, unspecified (principal); G47.30 Sleep apnea, unspecified; J44.9 Chronic obstructive pulmonary disease, unspecified; I10 Essential (primary) hypertension; G43.909 Migraine, unspecified, not intractable, without status migrainosus; G62.9 Polyneuropathy, unspecified; K21.9 Gastro-esophageal reflux disease without esophagitis; F41.9 Anxiety disorder, unspecified; F32.9 Major depressive disorder, single episode, unspecified; E66.9 Obesity, unspecified; Z78.0 Asymptomatic menopausal state; Z88.0 Allergy status to penicillin; Z88.2 Allergy status to sulfonamides; Z68.43 Body mass index [BMI] 50.0-59.9, adult; Z87.891 Personal history of nicotine dependence
CPT/HCPCS: 36415; 71045; 80053; 80306; 80320; 81000; 83735; 83874; 83880; 84443; 84484; 85025; 85610; 85730; 93005; 93041

== ENCOUNTER → 2019-03-27 | Outpatient (CLI) | payer MEDICAID ==
[~2019-03-27] MED LIST changes: +CEFD300C3 PO
--- NOTE | 2019-03-27 12:16 | Diagnostic Imaging Report ---
EXAMINATION: Digital mammogram bilateral screening with CAD. INDICATION: Screening. COMPARISON: The study was compared to the prior exams of 03/26/2018, 03/21/2017, and 03/15/2016. PERSONAL HISTORY: At this time, there are no current complaints. FINDINGS: The fibroglandular tissue in both breasts is heterogeneously dense. This does limit the sensitivity of this exam. Overall, there does not appear to have been any significant change when compared to the prior study. No primary or secondary sign of malignancy is noted. IMPRESSION: There is no radiographic evidence for malignancy. ACR BI-RADS Category 1: Negative. Result letter will be mailed to the patient. Note: At least 10% of breast cancer is not imaged by mammography. Dictated on workstation # [id number]
== END ==
LOC: RAD 09:25
PROVIDERS: ATTEND Nurse Practitioner Primary Care
DX: Z12.31 Encounter for screening mammogram for malignant neoplasm of breast (principal)
CPT/HCPCS: 77067

== ENCOUNTER → 2019-07-03 | Outpatient (CLI) | payer MEDICAID ==
--- NOTE | 2019-07-03 15:11 | Diagnostic Imaging Report ---
PROCEDURE: MRI lumbar spine. TECHNIQUE: Multiplanar, multisequence MRI of the lumbar spine was performed without contrast. INDICATION: Chronic low back pain. COMPARISON: Comparison is made to a plain film examination from July 24, 2017. FINDINGS: For the purposes of numerical assignment, there are six lumbar-type vertebral bodies with lumbarization of the S1 segment. There is rudimentary disc at S1-S2. Last fully formed disc space designated as L5-S1 Lumbar spine alignment appears within normal limits. The vertebral body heights are well-maintained. There are no marrow signal changes present to suggest an acute osseous injury or findings of a suspicious marrow replacing lesion. The distal thoracic cord demonstrates no evidence of signal abnormality or abnormal expansion. The conus terminates at normal level. The intrathecal nerve roots are unremarkable. No findings of an intraspinal mass or abnormal epidural process. L1-L2 demonstrates no evidence of significant stenosis. There is disc degeneration with minimal disc bulging. At L2-L3, there is a small right foraminal disc bulge. There is mild facet hypertrophy and ligamentous thickening. There is minimal narrowing of the central canal and slight effacement of the right lateral recess. There is mild narrowing of the right neural foramen. At L3-L4, facet hypertrophy and ligamentous thickening is present. There is no disc bulge or herniation and no significant canal or lateral recess stenosis. There is minimal narrowing of the right neural foramen. L4-L5 demonstrates facet hypertrophy and ligamentous thickening. There is no disc bulge or herniation. There is no significant canal or lateral recess stenosis. There is minimal narrowing of both neural foramina. At L5-S1, facet hypertrophy is present. There is mild narrowing of the left neural foramen. There is no significant canal or lateral recess stenosis. S1-S2 demonstrates no significant stenosis. Paraspinal soft tissues are unremarkable. Aorta is normal in caliber. The kidneys appear nonobstructed. There is a left renal cyst. IMPRESSION: 1. Normal height and alignment of lumbar spine without acute or suspicious osseous abnormality. 2. Mild features of degenerative disc disease and facet arthropathy as described above. There are no MR findings of high-grade canal or lateral recess stenosis. Variable degrees of mild foraminal narrowing detailed above. Dictated by: Dictated on workstation # [id number]
== END ==
LOC: RAD 13:28
PROVIDERS: ATTEND Nurse Practitioner Primary Care
DX: M48.07 Spinal stenosis, lumbosacral region (principal); M51.16 Intervertebral disc disorders with radiculopathy, lumbar region; M47.816 Spondylosis without myelopathy or radiculopathy, lumbar region
CPT/HCPCS: 72148

== ENCOUNTER → 2019-11-28 | Outpatient (CLI) | payer MEDICAID | LOC: RT 15:30 | PROVIDERS: ATTEND Nurse Practitioner Family | DX: R06.02 Shortness of breath (principal) | CPT/HCPCS: 94060; 94726; 94729 ==

== ENCOUNTER → 2020-04-14 | Outpatient (CLI) | payer MEDICAID ==
[~2020-04-14] MED LIST changes: +PANT20TA18 PO; -PANT20TA3 PO
--- NOTE | 2020-04-14 21:16 | Diagnostic Imaging Report ---
EXAM: Digital mammogram, bilateral screening. COMPARISON: This study was compared to the prior exams of 03/27/2019, 03/26/2018 and 03/21/2017. At this time, there are no current complaints. The current study was also evaluated with a Computer Aided Detection (CAD) system. FINDINGS: The fibroglandular tissue in both breasts is heterogeneously dense. This does limit the sensitivity of this exam. Overall, there does not appear to have been any significant change when compared to the prior study. No primary or secondary sign of malignancy is noted. IMPRESSION: There is no radiographic evidence for malignancy. ACR BI-RADS Category 1: Negative. Result letter will be mailed to the patient. Note: At least 10% of breast cancer is not imaged by mammography. Dictated by: Dictated on workstation # [id number]
== END ==
LOC: RAD 11:30
PROVIDERS: ATTEND Physician Assistant
DX: Z12.31 Encounter for screening mammogram for malignant neoplasm of breast (principal)
CPT/HCPCS: 77063; 77067

== ENCOUNTER → 2020-04-16 | Outpatient (CLI) | payer MEDICAID ==
--- NOTE | 2020-04-16 14:19 | Diagnostic Imaging Report ---
CT Lung Screening INDICATION: 33 pack year smoking history cessation in 2010. TECHNIQUE: Noncontrast, low-dose CT imaging performed according to the lung cancer screening protocol. Auto Exposure Controls were utilize during the CT exam to meet ALARA standards for radiation dose reduction. COMPARISON: Baseline. FINDINGS: No lung mass or suspicious pulmonary nodule. No thoracic effusion or pneumothorax. No infiltrate, edema or pneumonia. There is heterogeneous left lobe thyromegaly warranting nonemergent outpatient sonographic correlation given its size this does extend into the upper thorax. There are a few small rounded indeterminate lymph nodes in the left axilla the largest 1 cm diameter deep to the lateral margin of the pectoralis. No hilar abnormality. No suspicious lytic or sclerotic bone lesion. Visualized upper abdomen nonacute. IMPRESSION: No suspicious pulmonary nodule. No evidence of lung cancer. LUNG-RADS CATEGORY: Category 1 MODIFIER: None OTHER SIGNIFICANT FINDINGS: Probable mass left thyroid lobe correlative outpatient nonemergent thyroid ultrasound recommended. Dictated by: Dictated on workstation # [id number]
== END ==
LOC: RAD 13:16
PROVIDERS: ATTEND Nurse Practitioner Family
DX: Z12.2 Encounter for screening for malignant neoplasm of respiratory organs (principal); F17.210 Nicotine dependence, cigarettes, uncomplicated

== ENCOUNTER → 2020-06-03 | Outpatient (CLI) | payer MEDICAID ==
--- NOTE | 2020-06-03 13:09 | Diagnostic Imaging Report ---
PROCEDURE: CT abdomen and pelvis without contrast. TECHNIQUE: Multiple contiguous axial images were obtained through the abdomen and pelvis without the use of intravenous contrast. Auto Exposure Controls were utilized during the CT exam to meet ALARA standards for radiation dose reduction. INDICATION: Hematuria. COMPARISON: No prior studies are available for comparison. FINDINGS: The lung bases are clear. Liver and gallbladder are unremarkable. There is no biliary ductal dilatation. The pancreas and spleen are unremarkable. No adrenal mass is detected. No renal calculi or hydronephrosis are seen. There is an exophytic low-attenuation mass arising from the lower pole of the left kidney approximately 3 cm in size and most suggestive of a cyst. The ureters do not appear to be dilated. The bladder is unremarkable. No bladder calculi are detected. Aorta is nonaneurysmal. Small and large bowel loops are normal in caliber. There is no obstruction. There is moderate stool in the colon. No free fluid or fluid collection is seen. The uterus is unremarkable. No abdominal or pelvic lymphadenopathy is seen. IMPRESSION: 1. No definite evidence of urinary tract calculi or obstruction. 2. Moderate stool in the colon, consistent with constipation. 3. 3 cm left renal cyst. 4. Not mentioned above, fat-containing umbilical hernia. Dictated by: Dictated on workstation # [id number]
== END ==
LOC: RAD 13:45
PROVIDERS: ATTEND Physician Assistant
DX: N20.0 Calculus of kidney (principal); K42.0 Umbilical hernia with obstruction, without gangrene
CPT/HCPCS: 74176

== ENCOUNTER → 2020-07-30 | Outpatient (CLI) | payer MEDICAID ==
[~2020-07-30] VITALS: Ht 160 cm; Wt 105.5 kg
[~2020-07-30] MED LIST changes: -HYDR50TA3 PO; +HYDR50TA6 PO; +LIDOCAINE 1% INJ 20 ML 20 ML VIAL INJ ONE
--- NOTE | 2020-07-30 16:22 | Diagnostic Imaging Report ---
INDICATION: Left thyroid nodule. Patient presents for a ultrasound-guided fine needle aspiration and biopsy. Patient was brought to the procedure room and placed on table in the supine position. Ultrasound imaging of the left neck was performed to evaluate appropriate entry site. Left neck was then prepped and draped in usual sterile fashion. Small amount of 1% lidocaine was utilized for local anesthesia. A total of 4 passes were made into the dominant solid mass of the left lobe of the thyroid utilizing 25-gauge needles and fine-needle aspiration technique. A single pass was made with a Rotex needle and a Rotex biopsy was performed. Hemostasis was obtained using manual compression. Patient tolerated procedure well and left the department in stable condition. IMPRESSION: Successful ultrasound-guided fine-needle aspiration and Rotex biopsy of dominant left lobe thyroid mass. Pathology results are currently pending. Dictated by: Dictated on workstation # [id number]
== END ==
LOC: RAD 12:19
PROVIDERS: ATTEND Otolaryngology Otolaryngology/Facial Plastic Surgery
DX: E04.1 Nontoxic single thyroid nodule (principal)
CPT/HCPCS: 10005; 88173

== ENCOUNTER → 2020-08-07 | Outpatient (CLI) | payer MEDICAID ==
[~2020-08-07] MED LIST changes: -LIDOCAINE 1% INJ 20 ML 20 ML VIAL INJ ONE
== END ==
LOC: CARD 11:30
PROVIDERS: ATTEND Internal Medicine Cardiovascular Disease
DX: I51.7 Cardiomegaly (principal)
CPT/HCPCS: 93225; 93226; 93306

== ENCOUNTER → 2020-08-18 | Outpatient (CLI) | payer MEDICAID ==
[~2020-08-18] VITALS: Ht 160 cm; Wt 105.0 kg
[~2020-08-18] MED LIST changes: +CATHETER FLUSH 10 ML SYR IV PRN; +REGADENOSON 0.4 MG/5 ML SYR (LEXISCAN) IV ONE
[2020-08-18 12:26] VITALS: BP 127/90
--- NOTE | 2020-08-19 13:35 | STRESS TEST ---
DATE OF SERVICE: 08/18/2020 RESTING AND POST REGADENOSON TECHNETIUM-99M TETROFOSMIN SPECT CT IMAGING ORDERING PHYSICIAN: Dr. Abreu. PRIMARY PHYSICIAN: [facility]. CLINICAL DIAGNOSIS: Shortness of breath. Baseline images were carried out after injection of 10.94 mCi of technetium-99m Tetrofosmin. This was followed by 0.4 mg regadenoson and 31.9 mCi of technetium-99m Tetrofosmin for stress imaging. The electrocardiogram showed sinus rhythm at baseline. It did not change significantly with the regadenoson infusion. Review of images at rest and following stress indicates a small inferoapical transient perfusion defect. Gated images show normal global left ventricular systolic function with normal regional wall motion. Left ventricular ejection fraction is calculated to be 66%. Left ventricular end diastolic volume is 37 mL. TID is absent (1.08). CONCLUSIONS: 1. This study is indicative of a minimal amount of inferoapical ischemia. 2. Normal regional wall motion. 3. Normal global left ventricular systolic function with a calculated ejection fraction of 66%. Job ID: [id number] DocumentID: [id number] Dictated Date: 08/19/2020 08:51:57 Law Tutor Date: 08/19/2020 13:34:08 Dictated By: COLEMAN ABREU MD, MA, FACP, FACC,
== END ==
LOC: CARD 09:04
PROVIDERS: ATTEND Internal Medicine Cardiovascular Disease
DX: R06.09 Other forms of dyspnea (principal); R06.02 Shortness of breath
CPT/HCPCS: 78452; 93017; A9502

== ENCOUNTER → 2020-09-22 | Day surgery (SDC) | payer MEDICAID ==
[2020-09-22] VITALS (11 sets, daily range): BP systolic 97–128; BP diastolic 69–95
[~2020-09-22] VITALS: Ht 160 cm; Wt 104.0 kg
[~2020-09-22] MED LIST changes: +ACETAMINOPHEN 500 MG TAB (TYLENOL) ONE; +ACETAMINOPHEN 500 MG TAB (TYLENOL) PO ONE; +ARIP5TAB59 PO; +ASPI-999 PO; -CATHETER FLUSH 10 ML SYR IV PRN; +FLUV100T3 PO; +GUAN1TAB21 PO; +HEParin (CATH LAB) 2,000 ML IV ONE; +HYDR50CA3 PO; +KCL 20 MEQ TAB (K-DUR) PO ONE; +LAMO150T4 PO; +LIDOCAINE 1% INJ 20 ML 20 ML VIAL ONE; +METF-865 PO; +MIDAZOLAM 5 MG/5 ML (VERSED) VIAL ONE; +MTP25TSR PO; +NS IV 1000 ML 1,000 ML IV SCH; +NS IV 1000 ML 1,000 ML ONE; +PATIENT MAY USE OWN MEDS, ALL PO SCH; +POLY17PO54 PO; +POTA20TA15 PO; -REGADENOSON 0.4 MG/5 ML SYR (LEXISCAN) IV ONE; +TRZ50T PO; +fentaNYL INJ 100 MCG/2 ML AMP ONE
[2020-09-22 07:20] LABS: HEMATOCRIT 36 % (35-52); HEMOGLOBIN 12.1 g/dL (11.5-16.0); MEAN CORPUSCULAR HEMOGLOBIN 27 pg (25-34); MEAN CORPUSCULAR HGB CONC 33 g/dL (32-36); MEAN CORPUSCULAR VOLUME 81 fL (80-99); MEAN PLATELET VOLUME 10.4 fL (9.0-12.2); PLATELET COUNT 200 10^3/uL (130-400); WHITE BLOOD COUNT 5.9 10^3/uL (4.3-11.0)
[2020-09-22 07:35] LABS: PROTHROMBIN TIME PATIENT 13.5 SEC (12.2-14.7)
[2020-09-22 07:43] LABS: ALBUMIN 4.1 GM/DL (3.2-4.5); BILIRUBIN,TOTAL 0.6 MG/DL (0.1-1.0); CALCIUM 9.5 MG/DL (8.5-10.1); CREATININE SERUM 1.71 MG/DL (0.60-1.30); POTASSIUM 3.2 MMOL/L (3.6-5.0); TOTAL PROTEIN 6.6 GM/DL (6.4-8.2)
--- NOTE | 2020-09-22 09:19 | Discharge Inst-Post CATH ---
Discharge Inst-CATH/EP Post Cardiac Cath/EP D/C Inst Follow Up/Plan F/u with Dr Abreu in 2 weeks ACTIVITY * Go Home directly and rest. * Limit activity of the leg (or wrist if it was used) for 7 days including aerobics, swimming, jogging, bicycling, etc. * Restrict stair-climbing for 7 days if possible, if not, climb up with your n on-cath leg, then bring together on the same step. * Avoid lifting, pushing, pulling or excessive movement of the affected ex tremity for 7 days. * Customary sexual activity may be resumed after 2 days-use caution not to use a position that strains or causes pain to the affected extremity. * No driving for 24 hours. * NO SMOKING. * Avoid straining for bowel movements for 7 days. * Gentle walking on level ground is allowed. * Returning to work will depend on the type of procedure and the results. Your doctor will discuss this with you. CALL YOUR DOCTOR FOR ANY OF THE FOLLOWING: *If bleeding from the puncture site occurs- Apply gentle pressure to site with clean cloth and call your doctor or EMS. * If a knot or lump forms under the skin, increases in size, or causes pain. * If bruising appears to be worsening or moving further down your leg instead of disappearing. * Temperature above 101 F. CARE OF YOUR GROIN INCISION; * Bruising or purple discoloration of the skin near the puncture site is common. * You may shower only, no bathtub bathing for 5 days. Be careful to avoid slipping as your leg may feel stiff. * If a closure device was used on your femoral artery, please see the attached guide regarding care of the device and your leg. * Leave dressing on FOR 24 hours. CARE OF YOUR WRIST INCISION; * Bruising or purple discoloration of the skin near the puncture site is common. * You may shower. * DO NOT submerge wrist. * Leave dressing on FOR 24 hours. COLEMAN ABREU MD FACP FAC CCDS September 22, 2020 09:19
--- NOTE | 2020-09-22 09:19 | Discharge Inst-Cardiology ---
Discharge Inst-Cardiac Discharge Medications Continued Medications: Albuterol Sulfate (Proair Hfa) 1 Puff Puff 2 PUFF IH Q4H PRN for SHORTNESS OF BREATH, PUFF 1 PUFF = 90 MCG ARIPiprazole (Abilify Mycite) 5 Mg Tab.senspt 5 MG PO DAILY Cetirizine HCl (Cetirizine HCl) 10 Mg Tablet 10 MG PO DAILY, TAB Fluvoxamine Maleate (Fluvoxamine Maleate) 100 Mg Tablet 150 MG PO BID, TAB Gabapentin (Gabapentin) 300 Mg Capsule 300 MG PO TID, CAP Guanfacine HCl (Guanfacine HCl) 1 Mg Tablet 0.5 MG PO BID, TAB Hydrochlorothiazide (Hydrochlorothiazide) 50 Mg Tablet 50 MG PO DAILY, TAB Hydroxyzine Pamoate (Hydroxyzine Pamoate) 50 Mg Capsule 50 MG PO BID, CAP Lamotrigine (Lamotrigine) 150 Mg Tablet 150 MG PO DAILY, TAB Metformin HCl (Metformin HCl ER) 500 Mg Tab.er.24h 500 MG PO EVENING, TAB Metoprolol Succinate (Metoprolol Succinate) 25 Mg Tab.er.24h 25 MG PO DAILY, TAB Pantoprazole Sodium (Pantoprazole Sodium) 20 Mg Tablet.dr 20 MG PO DAILY, TAB Polyethylene Glycol 3350 (Polyethylene Glycol 3350) 17 Gm Powd.pack 1 EACH PO BID, EACH Potassium Chloride (Potassium Chloride) 20 Meq Tab.er.prt 20 MEQ PO BID Trazodone HCl (Trazodone HCl) 50 Mg Tablet 50-100 MG PO HS PRN for SLEEP, TAB Discontinued Medications: Aspirin (Aspirin) 81 Mg Tab.chew 81 MG PO DAILY, TAB COLEMAN MOLINA MD FACP [facility] CCDS September 22, 2020 09:19
--- NOTE | 2020-09-22 09:21 | Cardiac Procedure Note-CS/ASA ---
Pre-Procedure Note Pre-Op Procedure Note H&P Reviewed The H&P was reviewed, patient examined and no changes noted. Date H&P Reviewed: September 22, 2020 Time H&P Reviewed: 08:35 Conscious Sedation Pre-Proced Time 08:35 ASA Score 3 For ASA 3 and 4: Consider anesthesia and medical clearance. Also, for patients with a history of failed moderate sedation consider anesthesia. Airway Lungs Heart ASA score ASA 1: a normal healthy patient ASA 2: a patient with a mild systemic disease (mid diabetes, controlled hypertension, obesity ASA 3: a patient with a severe systemic disease that limits activity (angina, COPD, prior Myocardial infarction) ASA 4: a patient with an incapacitating disease that is a constant threat to life (CHF, renal failure) ASA 5: a moribund patient not expected to survive 24 hrs. (ruptured aneurysm) ASA 6: a declared brain- patient whose organs are being harvested. For emergent operations, add the letter E after the classification Mallampati Classification Grade 3 Sedation Plan Analgesia, Amnesia, Plan communicated to team members, Discussed options with patient/fam, Discussed risks with patient/fam The patient is an appropriate candidate to undergo the planned procedure, sedation, and anesthesia. The patient immediately re-assessed prior to indication. COLEMAN MOLINA MD FACP FAC CCDS September 22, 2020 09:21
--- NOTE | 2020-09-22 09:49 | CARDIAC CATHETERIZATION ---
DATE OF SERVICE: 09/22/2020 CARDIAC CATHETERIZATION REPORT INDICATION FOR PROCEDURE: The patient is a 55-year-old lady, who has multiple coronary artery disease risk factors, who has a history of mild inferoapical ischemia on myocardial perfusion imaging (07/2020) and who has been experiencing symptoms of typical angina that have been progressive. Because of continuing symptoms despite treatment, cardiac catheterization was carried out today after having obtained an informed consent. DESCRIPTION OF PROCEDURE: She was brought to the [facility]. She has a creatinine of 1.71. Vigorous perioperative hydration was carried out starting before the procedure, continued during the procedure, and continuing afterwards. This was to reduce risk of contrast nephropathy. We brought her to the cardiac catheterization laboratory. The right groin was prepared and draped in the usual sterile fashion. Lidocaine 1% was used for local anesthesia. Modified Seldinger technique was used to advance a 5-Estonian sheath into the right femoral artery. A 5-Estonian JL4 catheter was used for left coronary angiography. A 5-Estonian JR4 catheter was used for right coronary angiography. A 5-Estonian pigtail catheter was used for left heart catheterization. Left ventricular angiography was not performed. This was to conserve contrast. We also used a minimal amount of dye for coronary angiography. A small amount of contrast was used for angiography of the right femoral artery. Mynx was used to achieve hemostasis. A total amount of contrast used was 20 mL. She tolerated the procedure well. HEMODYNAMICS: Left ventricular end-diastolic pressure following coronary angiography was 9 mmHg. There was no significant pressure gradient on pullback across the aortic valve. Ascending aortic pressure was 109/64 with a mean of 83 mmHg. CORONARY ANGIOGRAPHY: Left main coronary artery, left anterior descending artery, left circumflex artery, right coronary artery do not exhibit any angiographically significant disease. Left circumflex artery is dominant. CONCLUSIONS: 1. No angiographically significant coronary artery disease. 2. Normal left ventricular end-diastolic pressure. DISCUSSION AND RECOMMENDATIONS: Based on the results of the study, chest discomfort does not appear to be of coronary origin. Continuing risk factor modification is advised. Outpatient followup is advised. Vigorous perioperative hydration was provided before and during the procedure and is being continued after the procedure. Job ID: [id number] DocumentID: [id number] Dictated Date: 09/22/2020 09:09:44 School Bus Driver/Mechanic Date: 09/22/2020 09:48:21 Dictated By: COLEMAN MOLINA MD, MA, FACP, FACC,
== END ==
LOC: CATH 08:00 → SDC 09:21 → EDPENDDISTM 13:00
PROVIDERS: ATTEND Internal Medicine Cardiovascular Disease
DX: I20.9 Angina pectoris, unspecified (principal); F32.9 Major depressive disorder, single episode, unspecified; K21.9 Gastro-esophageal reflux disease without esophagitis; G47.33 Obstructive sleep apnea (adult) (pediatric); I34.0 Nonrheumatic mitral (valve) insufficiency; E66.01 Morbid (severe) obesity due to excess calories; Z68.41 Body mass index [BMI] 40.0-44.9, adult; Z79.82 Long term (current) use of aspirin; Z79.899 Other long term (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; Z87.891 Personal history of nicotine dependence
CPT/HCPCS: 80053; 80061; 85027; 85610; 85730; 87081; 93458; C1760; C1894; 36415

== ENCOUNTER 2020-10-01 01:08 | Emergency (ER) | payer MEDICAID ==
[~2020-10-01] VITALS: Ht 160 cm; Wt 106.0 kg
[~2020-10-01 01:08] MED LIST changes: -ACETAMINOPHEN 500 MG TAB (TYLENOL) ONE; -ACETAMINOPHEN 500 MG TAB (TYLENOL) PO ONE; -HEParin (CATH LAB) 2,000 ML IV ONE; -KCL 20 MEQ TAB (K-DUR) PO ONE; -LIDOCAINE 1% INJ 20 ML 20 ML VIAL ONE; -MIDAZOLAM 5 MG/5 ML (VERSED) VIAL ONE; -NS IV 1000 ML 1,000 ML IV SCH; -NS IV 1000 ML 1,000 ML ONE; -PATIENT MAY USE OWN MEDS, ALL PO SCH; -fentaNYL INJ 100 MCG/2 ML AMP ONE
[2020-10-01 01:33] VITALS: BP 135/93
[2020-10-01] MEDS ORDERED: NF-CIPDEC OT (01:44)
[2020-10-01] MEDS ORDERED: TETANUS,DIPTH,PERTUSS P/F (BOOSTRIX) 0.5 ML VIAL IM ONE (01:45)
--- NOTE | 2020-10-01 01:45 | ED EENT ---
History of Present Illness General Chief Complaint: Ear Problems Stated Complaint: LEFT EAR BLEEDING FROM INSIDE OF EAR Source: patient History of Present Illness Date Seen by Provider: Oct 01, 2020 Time Seen by Provider: 01:33 Initial Comments PT ARRIVES VIA POV FROM HOME STATES SHE WOKE UP AT 2330 TONIGHT WITH BLEEDING FROM LEFT EAR HAS BEEN USING Q-TIPS IN HER EAR NO PAIN TO EAR NOW , OR PRIOR NO CHANGE IN HEARING NO DIZZINESS NO FEVER OR RECENT ILLNESS, NO URI/SINUS SYMPTOMS NO ASPIRIN OR BLOOD THINNERS NO HISTORY OF SIMILAR PT DOES STATE SHE HAS A "PICKING DISORDER" PCP: EMILI Allergies and Home Medications Allergies Coded Allergies: Penicillins (Verified Allergy, Mild, RASH, 05/09/18) Sulfa (Sulfonamide Antibiotics) (Verified Allergy, Mild, RASH, 05/09/18) Home Medications ARIPiprazole 5 Mg Tab.senspt, 5 MG PO DAILY, (Reported) Albuterol Sulfate 1 Puff Puff, 2 PUFF IH Q4H PRN for SHORTNESS OF BREATH, (Reported) 1 PUFF = 90 MCG Cetirizine HCl 10 Mg Tablet, 10 MG PO DAILY, (Reported) Ciprofloxacin HCl/Dexameth 7.5 Ml Soln, 7.5 ML OT BID Prescribed by: CONNOR DUNBAR on 10/01/20 0144 Fluvoxamine Maleate 100 Mg Tablet, 150 MG PO BID, (Reported) Gabapentin 300 Mg Capsule, 300 MG PO TID, (Reported) Guanfacine HCl 1 Mg Tablet, 0.5 MG PO BID, (Reported) Hydrochlorothiazide 50 Mg Tablet, 50 MG PO DAILY, (Reported) Hydroxyzine Pamoate 50 Mg Capsule, 50 MG PO BID, (Reported) Lamotrigine 150 Mg Tablet, 150 MG PO DAILY, (Reported) Metformin HCl 500 Mg Tab.er.24h, 500 MG PO EVENING, (Reported) Metoprolol Succinate 25 Mg Tab.er.24h, 25 MG PO DAILY, (Reported) Pantoprazole Sodium 20 Mg Tablet.dr, 20 MG PO DAILY, (Reported) Polyethylene Glycol 3350 17 Gm Powd.pack, 1 EACH PO BID, (Reported) Potassium Chloride 20 Meq Tab.er.prt, 20 MEQ PO BID, (Reported) Trazodone HCl 50 Mg Tablet, 50-100 MG PO HS PRN for SLEEP, (Reported) Patient Home Medication List Home Medication List Reviewed: Yes Review of Systems Review of Systems Constitutional: no symptoms reported Ears: See HPI Nose: no symptoms reported Mouth: no symptoms reported Throat: no symptoms reported Skin: no symptoms reported Neurological: No Symptoms Reported Past Nskmmos-Aqevql-Doljkk Hx Past Med/Social Hx: Reviewed and Corrections made Patient Social History Alcohol Use: Past History Drug of Choice: HX METH Smoking Status: Former Smoker Type Used: Cigarettes Former Smoker, Quit: May 09, 2010 2nd Hand Smoke Exposure: Yes Recent Hopitalizations: No Substance type: Methamphetamine Immunizations Up To Date Tetanus Booster (TDap): More than 5yrs Date of Influenza Vaccine: Feb 06, 2020 Seasonal Allergies Seasonal Allergies: No Past Medical History Surgeries: Yes (RIGHT KNEE SCOPE, COLONOSCOPY;CARDIAC CATH-NO INTERVENTION) Orthopedic Respiratory: Yes Sleep Apnea, COPD Currently Using CPAP: Yes Currently Using BIPAP: No Cardiac: Yes High Cholesterol, Hypertension Neurological: Yes Headaches /Migraines, Neuropathy RACKMAN History: Menopausal Sexually Transmitted Disease: No HIV/AIDS: No Genitourinary: Yes (SEES A KIDNEY DOCTOR, DOESN'T KNOW WHY) Gastrointestinal: Yes Gastroesophageal Reflux Musculoskeletal: Yes Arthritis, Chronic Back Pain Endocrine: Yes (STATES SHE'S "PRE DIABETIC"; OBESITY) HEENT: Yes (EDENTULOUS) Loss of Vision: Bilateral Hearing Impairment: Denies Cancer: No Psychosocial: Yes ("PICKING DISORDER";POLYSUBSTANCE ABUSE BY HX. ) Anxiety, Bipolar, Depression Integumentary: No Blood Disorders: No Adverse Reaction/Blood Tranf: No (N/A) Physical Exam Vital Signs Vital Signs - First Documented 10/01/20 01:33 Temp 36.6 Pulse 63 Resp 18 B/P (MAP) 135/93 (107) O2 Delivery Room Air Height, Weight, BMI Height: 5'3.00" Weight: 267lbs. 0.0oz. [id number]; 40.62 BMI Method:Stated General Appearance: WD/WN, no apparent distress Ears: left ear other (LEFT EAC WITH ABRASION NOTED TO OUTER ASPECT OF CANAL, WITH FRESH/CLOTTED BLOOD. TM APPEARS NORMAL. ) Progress/Results/Core Measures Results/Orders My Orders Orders - CONNOR DUNBAR DO Dipht,Pertuss(Acell),Tet Adult (Boostrix (10/01/20 01:45) Vital Signs/I&O 10/01/20 01:33 Temp 36.6 Pulse 63 Resp 18 B/P (MAP) 135/93 (107) O2 Delivery Room Air Departure Impression Primary Impression: Abrasion of left ear canal Additional Impression: Hwcowpihiz-vbrrvwtii-ohxwjpm (DPT) vaccination administered at current visit Disposition: HOME, SELF-CARE Condition: Stable Departure-Patient Inst. Decision time for Depature: 01:40 Referrals: [facility] (PCP/Family) Primary Care Physician Patient Instructions: Diphtheria and Tetanus Toxoids, and Acellular Pertussis Vaccine, Skin Abrasions (DC) Add. Discharge Instructions: DO NOT PUT ANYTHING INTO YOUR EARS EXCEPT THE PRESCRIBED EAR DROPS NO Q-TIPS, GULSHAN PINS, ETC IN EARS TYLENOL NEEDED FOR PAIN FOLLOW UP WITH [facility] IN 4-5 DAYS FOR RECHECK OF EAR--CALL IN THE MORNING TO SCHEDULE AN APPOINTMENT All discharge instructions reviewed with patient and/or family. Voiced understanding. Scripts Ciprofloxacin HCl/Dexameth (Ciprodex Otic Suspension) 7.5 Ml Soln 7.5 ML OT BID for 7 Days, #1 EA Prov: CONNOR DUNBAR DO 10/01/20 CONNOR DUNBAR DO Oct 01, 2020 01:45
== END 2020-10-01 01:49 | disposition home or self-care (01) ==
LOC: EDUNIT# 01:08 → ER 01:12
DX: S00.412A Abrasion of left ear, initial encounter (principal); I10 Essential (primary) hypertension; J44.9 Chronic obstructive pulmonary disease, unspecified; F41.9 Anxiety disorder, unspecified; F31.9 Bipolar disorder, unspecified; K21.9 Gastro-esophageal reflux disease without esophagitis; Z87.891 Personal history of nicotine dependence; Z23 Encounter for immunization; Z88.0 Allergy status to penicillin; Z88.2 Allergy status to sulfonamides; Z79.899 Other long term (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; X58.XXXA Exposure to other specified factors, initial encounter
CPT/HCPCS: 90715; 99284

== ENCOUNTER → 2021-02-19 | Outpatient (CLI) | payer MEDICAID ==
[~2021-02-19] MED LIST changes: +NF-CIPDEC OT
== END ==
LOC: CARD 12:00
PROVIDERS: ATTEND Nurse Practitioner Family
DX: R00.2 Palpitations (principal)
CPT/HCPCS: 93225; 93226

== ENCOUNTER → 2021-02-19 | Outpatient (CLI) | payer MEDICAID ==
--- NOTE | 2021-02-19 14:21 | Diagnostic Imaging Report ---
PROCEDURE: US Thyroid. TECHNIQUE: Multiple real-time grayscale images were obtained of the thyroid in various projections. INDICATION: Left thyroid nodule. A right lobe of thyroid measures 5.3 x 2.1 x 1.8 cm left lobe measures 7.0 x 4.1 x 3.5 cm. Isthmus is a 7 mm in thickness. A dominant solid mass left lobe of the thyroid measures 4.5 x 4.4 x 3.5 cm. This compares with 4.9 x 4.0 x 3.3 cm on prior. This has been previously biopsied. There is an area of heterogeneity versus true nodule in the mid lateral aspect of the right lobe of the thyroid measuring 2.1 x 0.6 x 0.9 cm this area was present on prior study but measurement technique appears different. Overall appearance is very similar. No new mass is identified. IMPRESSION: Bilateral thyroid nodules, similar in appearance to examination from 05/11/2020. Dictated by: Dictated on workstation # [id number]
== END ==
LOC: RAD 10:24
PROVIDERS: ATTEND Otolaryngology Otolaryngology/Facial Plastic Surgery
DX: E04.2 Nontoxic multinodular goiter (principal)
CPT/HCPCS: 76536

== ENCOUNTER → 2021-03-12 | Outpatient (CLI) | payer MEDICAID ==
--- NOTE | 2021-03-12 11:43 | Diagnostic Imaging Report ---
INDICATION: Dysphagia. Procedure was performed in conjunction with speech pathology. Video fluoroscopy was utilized during the swallowing of barium of multiple consistencies. The patient ingested thin and thick liquid as well as applesauce, banana, ground beef and cracker consistency. 52 seconds of fluoroscopic time was utilized. Oral phase unremarkable. There is mild early spillover noted with multiple consistencies. There is normal epiglottic tilt and laryngeal elevation. No laryngeal penetration or aspiration was observed with any consistency. No significant residue was detected. IMPRESSION: Unremarkable modified barium swallow apart from mild early spillover. No penetration or aspiration was observed. Dictated by: Dictated on workstation # [id number]
== END ==
LOC: RAD 10:30
PROVIDERS: ATTEND Otolaryngology Otolaryngology/Facial Plastic Surgery
DX: R13.10 Dysphagia, unspecified (principal)
CPT/HCPCS: 74230

== ENCOUNTER 2021-04-22 13:03 | Emergency (ER) | payer MEDICAID ==
[~2021-04-22] VITALS: Ht 160 cm; Wt 104.0 kg
[~2021-04-22 13:03] MED LIST changes: -CITA40TA11 PO; +CITA40TA13 PO; +FLUV100T21 PO; -FLUV100T3 PO; +POTA-179 PO; -POTA20TA15 PO
--- NOTE | 2021-04-22 13:22 | ED Cardiac General ---
History of Present Illness General Stated Complaint: CP Source: patient History of Present Illness Date Seen by Provider: Apr 22, 2021 Time Seen by Provider: 13:09 Initial Comments PT ARRIVES VIA POV FROM HOME C/O MID CHEST PAIN SINCE WAKING AT 0800 NO RADIATION OF PAIN PAIN IS WORSE WITH BREATHING RATES PAIN "9/10" HAS NOT TAKEN ANYTHING FOR PAIN C/O SHORTNESS OF BREATH NO COUGH NO FEVER/SWEATS/CHILLS C/O DIZZINESS WITH PAIN AND SHORTNESS OF BREATH NO CHANGE IN CHRONIC LEFT LEG SWELLING--STATES "IT'S BECAUSE I HAVE A BAD KNEE ON THAT SIDE" NO CALF PAIN NO PALPITATIONS NO SYNCOPE STATES SHE HAS HAD SIMILAR, BUT NOT THIS BAD LAST TIME WAS ABOUT 2 MONTHS AGO STATES SHE HAS SEEN DR. MOLINA AND HAS HAD A CARDIAC CATH--NO INTERVENTION. PT S TATES SHE DOESN'T HAVE ANYTHING WRONG WITH HER HEART. 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 MOLINA Allergies and Home Medications Allergies Coded Allergies: Penicillins (Verified Allergy, Mild, RASH, 05/09/18) Sulfa (Sulfonamide Antibiotics) (Verified Allergy, Mild, RASH, 05/09/18) Patient Home Medication List Home Medication List Reviewed: Yes ARIPiprazole (Abilify Mycite) 5 Mg Tab.senspt, 5 MG PO DAILY, (Reported) Entered as Reported by: FACUNDO WIGGINS on 09/22/20726 Albuterol Sulfate (Proair Hfa) 1 Puff Puff, 2 PUFF IH Q4H PRN for SHORTNESS OF BREATH, (Reported) Entered as Reported by: LAZARA SNYDER on 05/09/18 1226 Cetirizine HCl (Cetirizine HCl) 10 Mg Tablet, 10 MG PO DAILY, (Reported) Entered as Reported by: FACUNDO WIGGINS on 09/22/20726 Ciprofloxacin HCl/Dexameth (Ciprodex Otic Suspension) 7.5 Ml Soln, 7.5 ML OT BID Prescribed by: CONNOR DUNBAR on 10/01/20 0144 Fluvoxamine Maleate (Fluvoxamine Maleate) 100 Mg Tablet, 150 MG PO BID, (Reported) Entered as Reported by: FACUNDO WIGGINS on 09/22/20726 Gabapentin (Gabapentin) 300 Mg Capsule, 300 MG PO TID, (Reported) Entered as Reported by: LAZARA SNYDER on 05/09/18 1226 Guanfacine HCl (Guanfacine HCl) 1 Mg Tablet, 0.5 MG PO BID, (Reported) Entered as Reported by: FACUNDO WIGGINS on 09/22/20726 Hydrochlorothiazide (Hydrochlorothiazide) 50 Mg Tablet, 50 MG PO DAILY, (Reported) Entered as Reported by: LAZARA SNYDER on 05/09/18 1226 Hydroxyzine Pamoate (Hydroxyzine Pamoate) 50 Mg Capsule, 50 MG PO BID, (Reported) Entered as Reported by: FACUNDO WIGGINS on 09/22/20726 Lamotrigine (Lamotrigine) 150 Mg Tablet, 150 MG PO DAILY, (Reported) Entered as Reported by: FACUNDO WIGGINS on 09/22/20726 Metformin HCl (Metformin HCl ER) 500 Mg Tab.er.24h, 500 MG PO EVENING, (Reported) Entered as Reported by: FACUNDO WIGGINS on 09/22/20726 Metoprolol Succinate (Metoprolol Succinate) 25 Mg Tab.er.24h, 25 MG PO DAILY, (Reported) Entered as Reported by: FACUNDO WIGGINS on 09/22/20726 Pantoprazole Sodium (Pantoprazole Sodium) 20 Mg Tablet.dr, 20 MG PO DAILY, (Reported) Entered as Reported by: LAZARA SNYDER on 05/09/18 122 Polyethylene Glycol 3350 (Polyethylene Glycol 3350) 17 Gm Powd.pack, 1 EACH PO BID, (Reported) Entered as Reported by: FACUNDO WIGGINS on 09/22/20726 Potassium Chloride (Potassium Chloride) 20 Meq Tab.er.prt, 20 MEQ PO BID, (Reported) Entered as Reported by: FACUDNO WIGGINS on 09/22/20726 Trazodone HCl (Trazodone HCl) 50 Mg Tablet, 50-100 MG PO HS PRN for SLEEP, (Reported) Entered as Reported by: FACUNDO WIGGINS on 09/22/20726 Review of Systems Review of Systems Constitutional: No see HPI, No diaphoresis; dizziness; No fever EENTM: No Symptoms Reported Respiratory: See HPI, Shortness of Air Cardiovascular: See HPI, Chest Pain, Edema; Denies Lightheadedness, Denies Palpitations, Denies Syncope Gastrointestinal: No Symptoms Reported; Denies Abdominal Pain, Denies Nausea, Denies Vomiting Genitourinary: No Symptoms Reported Musculoskeletal: no symptoms reported Skin: no symptoms reported Psychiatric/Neurological: No Symptoms Reported Endocrine: No Symptoms Reported Hematologic/Lymphatic: No Symptoms Reported Past Ufcipcy-Oguaol-Zxiojg Hx Patient Social History Tobacco Use?: Yes Tobacco type used: Cigarettes Smoking Status: Former Smoker (QUIT 2010) Substance use?: Yes Substance type: Methamphetamine Alcohol Use?: Yes (BY HISTORY) Immunizations Up To Date Tetanus Booster (TDap): More than 5yrs Seasonal Allergies Seasonal Allergies: No Past Medical History Surgeries: Yes (RIGHT KNEE SCOPE, COLONOSCOPY;CARDIAC CATH-NO INTERVENTION) Cardiac, Orthopedic Respiratory: Yes Sleep Apnea, COPD Currently Using CPAP: Yes Currently Using BIPAP: No Cardiac: Yes (CARDIAC CATH-NO INTERVENTION) High Cholesterol, Hypertension Neurological: Yes Headaches /Migraines, Neuropathy 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 ) Anxiety, Bipolar, Depression Integumentary: No Blood Disorders: No Adverse Reaction/Blood Tranf: No (N/A) Family Medical History PAST SURGICAL HISTORY: --09/22/20--CARDIAC CATH BY DR. MOLINA: CONCLUSIONS: 1. No angiographically significant coronary artery disease. 2. Normal left ventricular end-diastolic pressure. Physical Exam Vital Signs Vital Signs - First Documented 04/22/21 13:10 Temp 36.8 Pulse 79 Resp 20 B/P (MAP) 116/79 (91) Pulse Ox 94 O2 Delivery Room Air Capillary Refill : Height, Weight, BMI Height: 5'3.00" Weight: 267lbs. 0.0oz. 121.656437tc; 41.00 BMI Method:Stated General Appearance: No Apparent Distress, WD/WN, Obese, Other (TALKS AT LENGTH ABOUT EVERYTHING EXCEPT WHY SHE IS HERE. LAUGHING AND SMILING, YET CLAIMS HER PAIN IS "9/10") Neck: Normal Inspection Respiratory: Chest Non Tender, Normal Breath Sounds, No Accessory Muscle Use, No Respiratory Distress Cardiovascular: Regular Rate, Rhythm, No JVD, No Murmur, Normal Peripheral P ulses Gastrointestinal: Non Tender, Soft Extremity: Normal Capillary Refill, Normal Range of Motion, Non Tender, No Calf Tenderness, Pedal Edema (TRACE ON LEFT) Neurologic/Psychiatric: Alert, Oriented x3, No Motor/Sensory Deficits, Normal Mood/Affect, meal packer II-XII Norm as Tested Skin: Normal Color, Warm/Dry, Other (SORES/SCARS/SCABS TO FACE AND ARMS. ) Progress/Results/Core Measures Results/Orders Lab Results Laboratory Tests Test 04/22/21 13:15 04/22/21 13:28 04/22/21 13:30 04/22/21 16:15 Range/Units White Blood Count 5.3 4.3-11.0 10^3/uL Red Blood Count 4.27 3.80-5.11 10^6/uL Hemoglobin 12.2 11.5-16.0 g/dL Hematocrit 36 35-52 % Mean Corpuscular Volume 84 80-99 fL Mean Corpuscular Hemoglobin 29 25-34 pg Mean Corpuscular Hemoglobin Concent 34 32-36 g/dL Red Cell Distribution Width 12.9 10.0-14.5 % Platelet Count 214 130-400 10^3/uL Mean Platelet Volume 10.0 9.0-12.2 fL Immature Granulocyte % (Auto) 0 % Neutrophils (%) (Auto) 48 42-75 % Lymphocytes (%) (Auto) 36 12-44 % Monocytes (%) (Auto) 9 0-12 % Eosinophils (%) (Auto) 6 0-10 % Basophils (%) (Auto) 1 0-10 % Neutrophils # (Auto) 2.5 1.8-7.8 10^3/uL Lymphocytes # (Auto) 1.9 1.0-4.0 10^3/uL Monocytes # (Auto) 0.5 0.0-1.0 10^3/uL Eosinophils # (Auto) 0.3 0.0-0.3 10^3/uL Basophils # (Auto) 0.1 0.0-0.1 10^3/uL Immature Granulocyte # (Auto) 0.0 0.0-0.1 10^3/uL Erythrocyte Sedimentation Rate 25 0-30 MM/HR Prothrombin Time 13.5 12.2-14.7 SEC INR Comment 1.0 0.8-1.4 Activated Partial Thromboplast Time 26 24-35 SEC D-Dimer 0.66 H 0.00-0.49 UG/ML Sodium Level 140 140 135-145 MMOL/L Potassium Level 3.6 3.7 3.6-5.0 MMOL/L Chloride Level 105 105 98-107 MMOL/L Carbon Dioxide Level 24 25 21-32 MMOL/L Anion Gap 11 10 5-14 MMOL/L Blood Urea Nitrogen 17 16 7-18 MG/DL Creatinine 1.40 H 1.29 0.60-1.30 MG/DL Estimat Glomerular Filtration Rate 39 43 BUN/Creatinine Ratio 12 12 Glucose Level 91 81 70-105 MG/DL Calcium Level 9.4 9.1 8.5-10.1 MG/DL Corrected Calcium 9.4 8.5-10.1 MG/DL Magnesium Level 1.8 1.6-2.4 MG/DL Total Bilirubin 0.3 0.1-1.0 MG/DL Aspartate Amino Transf (AST/SGOT) 15 5-34 U/L Alanine Aminotransferase (ALT/SGPT) 16 0-55 U/L Alkaline Phosphatase 119 40-136 U/L Total Creatine Kinase 49 29-168 U/L Creatine Kinase MB 1.1 <6.6 NG/ML Myoglobin 52.0 10.0-92.0 NG/ML Troponin I < 0.028 < 0.028 <0.028 NG/ML C-Reactive Protein High Sensitivity 0.62 H 0.00-0.50 MG/DL B-Type Natriuretic Peptide 16.7 <100.0 PG/ML Total Protein 6.8 6.4-8.2 GM/DL Albumin 4.0 3.2-4.5 GM/DL Amylase Level 50 25-125 U/L Lipase 15 8-78 U/L Serum Alcohol < 10 <10 MG/DL Urine Color YELLOW Urine Clarity CLEAR Urine pH 6.0 5-9 Urine Specific Jackson <=1.005 1.016-1.022 Urine Protein NEGATIVE NEGATIVE Urine Glucose (UA) NEGATIVE NEGATIVE Urine Ketones NEGATIVE NEGATIVE Urine Nitrite NEGATIVE NEGATIVE Urine Bilirubin NEGATIVE NEGATIVE Urine Urobilinogen 0.2 < = 1.0 MG/DL Urine Leukocyte Esterase NEGATIVE NEGATIVE Urine RBC (Auto) 2+ H NEGATIVE Urine RBC 2-5 H /HPF Urine WBC NONE /HPF Urine Squamous Epithelial Cells RARE /HPF Urine Crystals NONE /LPF Urine Bacteria NEGATIVE /HPF Urine Casts NONE /LPF Urine Mucus NEGATIVE /LPF Urine Culture Indicated NO Urine Opiates Screen NEGATIVE NEGATIVE Urine Oxycodone Screen NEGATIVE NEGATIVE Urine Methadone Screen NEGATIVE NEGATIVE Urine Propoxyphene Screen NEGATIVE NEGATIVE Urine Barbiturates Screen NEGATIVE NEGATIVE Ur Tricyclic Antidepressants Screen NEGATIVE NEGATIVE Urine Phencyclidine Screen NEGATIVE NEGATIVE Urine Amphetamines Screen NEGATIVE NEGATIVE Urine Methamphetamines Screen NEGATIVE NEGATIVE Urine Benzodiazepines Screen NEGATIVE NEGATIVE Urine Cocaine Screen NEGATIVE NEGATIVE Urine Cannabinoids Screen NEGATIVE NEGATIVE My Orders Orders - CONNOR DUNBAR DO Ed Iv/Invasive Line Start (04/22/21 13:16) Ekg Tracing (04/22/21 13:16) O2 (04/22/21 13:16) Monitor-Rhythm Ecg Trace Only (04/22/21 13:16) Chest 1 View, Ap/Pa Only (04/22/21 13:16) Amylase (04/22/21 13:16) Bnp Sammy (04/22/21 13:16) Cbc With Automated Diff (04/22/21 13:16) Comprehensive Metabolic Panel (04/22/21 13:16) Creatine Kinase (04/22/21 13:16) Creatine Kinase Mb (04/22/21 13:16) Hs C Reactive Protein (04/22/21 13:16) Fibrin Degradation Products (04/22/21 13:16) Lipase (04/22/21 13:16) Magnesium (04/22/21 13:16) Protime With Inr (04/22/21 13:16) Partial Thromboplastin Time (04/22/21 13:16) Erythrocyte Sedimentation Rate (04/22/21 13:16) Myoglobin Serum (04/22/21 13:16) Troponin I Sammy (04/22/21 13:16) Nitroglycerin 0.4 Mg Btl 25's (Nitrostat (04/22/21 13:30) Aspirin Chewable Tablet (Baby Aspirin Ch (04/22/21 13:30) Alcohol (04/22/21 13:24) Drug Screen Stat (Urine) (04/22/21 13:24) Ua Culture If Indicated (04/22/21 13:24) Ed Iv/Invasive Line Start (04/22/21 14:20) Lactated Ringers (Lr 1000 Ml Iv Solution (04/22/21 14:30) Ekg Tracing (04/22/21 15:57) Basic Metabolic Panel (04/22/21 15:57) Troponin I Hettinger (04/22/21 15:57) Medications Given in ED Vital Signs/I&O 04/22/21 04/22/21 04/22/21 13:10 16:15 17:20 Temp 36.8 36.8 Pulse 79 84 87 Resp 20 18 B/P (MAP) 116/79 (91) 112/74 112/79 Pulse Ox 94 96 O2 Delivery Room Air Room Air Progress Progress Note : Progress Note GIVEN ASPIRIN AND NTG X 2 WITH COMPLETE RELIEF OF ALL SYMPTOMS CXR--NO RADIOLOGIST REPORT DUE TO PREPRINT ANALYST BEING DOWN. WILL OBSERVE IN ER AND DO REPEAT TROPONIN AND EKG IN 3 HOURS, PT HAD A NORMAL CARDIAC CATH IN OF THIS YEAR. NO HYPOXIA NO TACHYCARDIA NO TACHYPNEA OR DYSPNEA NO HYPOTENSION NO CHEST PAIN FOR REMAINDER OF ER STAY PT IS ANXIOUS TO GO HOME WILL SEND HOME WITH NTG TO TAKE PRN AND HAVE PT FOLLOW UP WITH DR. MOLINA NEXT WEEK, WITH STRICT RETURN PRECAUTIONS Initial ECG Impression Date: Apr 22, 2021 Initial ECG Impression Time: 13:09 Initial ECG Rate: 77 Initial ECG Rhythm: Normal Sinus EKG : EKG Time: 16:03 Rate: 60 Rhythm: Normal Sinus ECG Comparisson: Unchanged Diagnostic Imaging Comments CXR--NO ACUTE PROCESS, PENDING RADIOLOGIST REVIEW Reviewed: Reviewed by Me Departure Impression Primary Impression: Chest pain Disposition: 01 HOME, SELF-CARE Condition: Improved Departure-Patient Inst. Decision time for Depature: 17:07 Referrals: [facility] (PCP/Family) Primary Care Physician COLEMAN MOLINA MD FACP FACC CCDS Patient Instructions: Chest Pain (DC) Add. Discharge Instructions: TAKE YOUR REGULAR MEDICATIONS PRESCRIBED TAKE NITROGLYCERINE TABLET IF YOUR PAIN RETURNS--TAKE 1 PILL UNDER THE TONGUE EVERY 5 MINUTES X 3. IF YOU ARE STILL HAVING PAIN AFTER 3RD NITROGLYCERINE, RETURN TO ER. FOLLOW UP WITH DR. MOLINA NEXT WEEK FOR FURTHER CARE CONNOR DUNBAR DO Apr 22, 2021 13:22
[2021-04-22 13:30] LABS: BASOPHILS # (AUTO) 0.1 10^3/uL (0.0-0.1); BASOPHILS % (AUTO) 1 % (0-10); EOSINOPHILS # (AUTO) 0.3 10^3/uL (0.0-0.3); EOSINOPHILS % (AUTO) 6 % (0-10); HEMATOCRIT 36 % (35-52); HEMOGLOBIN 12.2 g/dL (11.5-16.0); LYMPHOCYTES # (AUTO) 1.9 10^3/uL (1.0-4.0); LYMPHOCYTES % (AUTO) 36 % (12-44); MEAN CORPUSCULAR HEMOGLOBIN 29 pg (25-34); MEAN CORPUSCULAR HGB CONC 34 g/dL (32-36); MEAN CORPUSCULAR VOLUME 84 fL (80-99); MONOCYTES # (AUTO) 0.5 10^3/uL (0.0-1.0); MONOCYTES % (AUTO) 9 % (0-12); NEUTROPHILS # (AUTO) 2.5 10^3/uL (1.8-7.8); NEUTROPHILS % (AUTO) 48 % (42-75); PLATELET COUNT 214 10^3/uL (130-400); WHITE BLOOD COUNT 5.3 10^3/uL (4.3-11.0)
[2021-04-22] MEDS ORDERED: NITROGLYCERIN 0.4 MG SL TABS BTL 25'S SL PRN (13:30)
[2021-04-22] MEDS ORDERED: ASPIRIN 81 MG CHEW (CHILDREN'S ASA) PO ONE (13:30)
[2021-04-22 13:38] LABS: BILIRUBIN,URINE NEGATIVE (NEGATIVE); CLARITY,URINE CLEAR; COLOR,URINE YELLOW; GLUCOSE, URINE (UA) NEGATIVE (NEGATIVE); KETONES,URINE NEGATIVE (NEGATIVE); LEUKOCYTE ESTERASE ,URINE NEGATIVE (NEGATIVE); NITRITE,URINE NEGATIVE (NEGATIVE); PROTEIN,URINE NEGATIVE (NEGATIVE)
[2021-04-22 13:43] LABS: CHLORIDE 105 MMOL/L (98-107); POTASSIUM 3.6 MMOL/L (3.6-5.0); SODIUM 140 MMOL/L (135-145)
[2021-04-22 13:44] LABS: AMYLASE 50 U/L (25-125); CALCIUM 9.4 MG/DL (8.5-10.1); FIBRIN DEGRADATION PRODUCTS 0.66 UG/ML (0.00-0.49); PROTHROMBIN TIME PATIENT 13.5 SEC (12.2-14.7)
[2021-04-22 13:45] LABS: GLUCOSE 91 MG/DL (70-105); TOTAL PROTEIN 6.8 GM/DL (6.4-8.2)
[2021-04-22 13:46] LABS: CARBON DIOXIDE 24 MMOL/L (21-32)
[2021-04-22 13:47] LABS: BILIRUBIN,TOTAL 0.3 MG/DL (0.1-1.0)
[2021-04-22 13:49] LABS: ALKALINE PHOSPHATASE 119 U/L (40-136); GFR ESTIMATED 39
[2021-04-22 13:50] LABS: BUN/CREATININE RATIO 12; ERYTHROCYTE SEDIMENTATION RATE 25 MM/HR (0-30)
[2021-04-22 13:52] LABS: ALANINE AMINOTRANSFERASE 16 U/L (0-55); MAGNESIUM 1.8 MG/DL (1.6-2.4)
[2021-04-22 13:53] LABS: CREATINE KINASE 49 U/L (29-168); LIPASE 15 U/L (8-78)
[2021-04-22 13:55] LABS: AMPHETAMINE SCREEN, URINE NEGATIVE (NEGATIVE); BARBITURATE SCREEN URINE NEGATIVE (NEGATIVE); BENZODIAZEPINES SCREEN URINE NEGATIVE (NEGATIVE); CANNABINOID SCREEN, URINE NEGATIVE (NEGATIVE); COCAINE SCREEN URINE NEGATIVE (NEGATIVE); METHADONE STAT NEGATIVE (NEGATIVE); METHAMPHETAMINE SCREEN URINE S NEGATIVE (NEGATIVE); OPIATE SCREEN URINE NEGATIVE (NEGATIVE); OXYCODONE STAT NEGATIVE (NEGATIVE); PROPOXYPHENE STAT NEGATIVE (NEGATIVE); TRICYCLIC ANTIDEPRESSANTS SCRE NEGATIVE (NEGATIVE)
[2021-04-22 14:01] LABS: CREATINE KINASE MB 1.1 NG/ML (<6.6)
[2021-04-22 14:07] LABS: BACTERIA,URINE NEGATIVE /HPF; SQUAMOUS EPITHELIAL CELL,UR RARE /HPF
[2021-04-22] MEDS ORDERED: LACTATED RINGERS 1,000 ML IV ONE (14:30)
[2021-04-22 16:35] LABS: CHLORIDE 105 MMOL/L (98-107); POTASSIUM 3.7 MMOL/L (3.6-5.0); SODIUM 140 MMOL/L (135-145)
[2021-04-22 16:36] LABS: CALCIUM 9.1 MG/DL (8.5-10.1); GLUCOSE 81 MG/DL (70-105)
[2021-04-22 16:38] LABS: CARBON DIOXIDE 25 MMOL/L (21-32)
[2021-04-22 16:40] LABS: CREATININE SERUM 1.29 MG/DL (0.60-1.30); GFR ESTIMATED 43
[2021-04-22 16:41] LABS: BUN/CREATININE RATIO 12
[2021-04-22 17:20] VITALS: BP 112/79
--- NOTE | 2021-04-22 18:18 | Diagnostic Imaging Report ---
INDICATION: Chest pain. TIME OF EXAM: 01:18 p.m. COMPARISON: Correlation is made with prior chest from 09/03/2018. FINDINGS: The heart is mildly enlarged. There is central congestion but no overt failure. No effusion or pneumothorax is seen. IMPRESSION: Cardiomegaly and central congestion. Dictated by: Dictated on workstation # [id number]
== END 2021-04-22 17:22 | disposition home or self-care (01) ==
LOC: EDUNIT# 13:03 → ER 13:04
DX: R07.9 Chest pain, unspecified (principal); G47.30 Sleep apnea, unspecified; J44.9 Chronic obstructive pulmonary disease, unspecified; I10 Essential (primary) hypertension; K21.9 Gastro-esophageal reflux disease without esophagitis; E11.9 Type 2 diabetes mellitus without complications; F41.9 Anxiety disorder, unspecified; F31.9 Bipolar disorder, unspecified; E66.9 Obesity, unspecified; Z68.41 Body mass index [BMI] 40.0-44.9, adult; Z87.891 Personal history of nicotine dependence; Z79.84 Long term (current) use of oral hypoglycemic drugs; Z79.899 Other long term (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
CPT/HCPCS: 71045; 80048; 80053; 80306; 81000; 82150; 82550; 82553; 83690; 83735; 83874; 83880; 84484; 85025; 85379; 85610; 85652; 85730; 86141; 93041; 99284; G0480; 36415; 80320

== ENCOUNTER 2021-07-09 05:31 | Outpatient (RCR) | payer MEDICAID ==
[~2021-07-09] VITALS: Ht 160 cm; Wt 233.6 kg
== END 2021-07-12 08:36 | disposition home or self-care (01) ==
LOC: PREOP 05:31
PROVIDERS: ATTEND Surgery
DX: Z01.818 Encounter for other preprocedural examination (principal); Z20.822 Contact with and (suspected) exposure to COVID-19
CPT/HCPCS: 87636

== ENCOUNTER → 2021-09-09 | Outpatient (CLI) | payer MEDICAID ==
--- NOTE | 2021-09-09 09:26 | Diagnostic Imaging Report ---
PROCEDURE: US Gallbladder. TECHNIQUE: Multiple real-time grayscale images were obtained over the right upper quadrant in various projections. INDICATION: Epigastric pain. EXAMINATION: Ultrasound gallbladder 09/09/2021 FINDINGS: Per the technologist, there is overall limited visualization of the structures due to overlying bowel gas and increased body habitus. There is heterogeneity throughout the liver consistent with fatty infiltration. No focal mass is appreciated. There is no intrahepatic biliary dilatation. Gallbladder wall is at the upper limits of normal. There is no cholelithiasis. No pericholecystic fluid. Common duct is normal in size measuring 0.4 cm. The visualized portions of the pancreas, aorta and IVC unremarkable. Right kidney normal in appearance measuring 11.5 cm with no hydronephrosis. There is no ascites. IMPRESSION: 1. Gallbladder wall is at the upper limits of normal in thickness. However, no other changes to suggest acute cholecystitis. 2. Hepatic steatosis. Dictated by: Dictated on workstation # [id number]
== END ==
LOC: RAD 08:00
PROVIDERS: ATTEND Surgery
DX: K76.0 Fatty (change of) liver, not elsewhere classified (principal)
CPT/HCPCS: 76705

== ENCOUNTER → 2021-09-23 | Outpatient (CLI) | payer MEDICAID ==
[~2021-09-23] MED LIST changes: +CATHETER FLUSH 10 ML SYR IVP PRN
--- NOTE | 2021-09-23 13:48 | Diagnostic Imaging Report ---
INDICATION: Epigastric pain. TECHNIQUE: 5.5 mCi Tc-99m Choletec was given. FINDINGS: There is prompt uptake of isotope by the liver. Gallbladder is visualized in normal fashion. There is free flow of isotope into the small bowel. 8 ounces of Ensure was given for fatty meal. The 60-minute imaging shows the ejection fraction of 45% at 1 hour. IMPRESSION: Normal hepatobiliary study with good ejection fraction of the gallbladder. Dictated by: Dictated on workstation # [id number]
== END ==
LOC: CARD 12:00
PROVIDERS: ATTEND Surgery
DX: R10.13 Epigastric pain (principal)
CPT/HCPCS: 78227; A9537

== ENCOUNTER → 2021-10-28 | Outpatient (CLI) | payer MEDICAID ==
[~2021-10-28] VITALS: Ht 160 cm; Wt 104.0 kg
[~2021-10-28] MED LIST changes: -CATHETER FLUSH 10 ML SYR IVP PRN; +CHOL20003 PO; +FESO4TAB PO; +METR-145 PO; +SUCR1TAB PO; +VALB40CA2 PO
== END | disposition home or self-care (01) ==
LOC: PREOP 05:34
PROVIDERS: ATTEND Surgery
DX: Z01.818 Encounter for other preprocedural examination (principal)

== ENCOUNTER 2021-10-29 19:21 | Emergency (ER) | payer MEDICAID ==
[~2021-10-29] VITALS: Ht 160 cm; Wt 104.0 kg
[2021-10-29 19:33] VITALS: BP 134/78
[2021-10-29] MEDS ORDERED: RX-ONDANSETRON 4 MG ODT (ZOFRAN) PPK #4 PO STA (20:26)
--- NOTE | 2021-10-29 20:26 | ED General ---
General Chief Complaint: General Problems/Pain Stated Complaint: HEADACHE/STOMACH PAIN/THROAT PAIN Nursing Triage Note: PT PRESENTS AND REPORTS ON MONDAY SHE WAS STARTED ON FLAGYL FOR A VAGINAL INFECTION, SHE IS UNSURE OF WHAT KIND. REPORTS SINCE STARTING THE FLAGYL ON MONDAY SHE HAS HAD NAUSEA, CARRILLO, AND A SORE THROAT. DENIES VOMTING. REPORTS SHE IS HAVING HER GALLBLADDER REMOVED NEXT MONDAY WELL BUT BELIEVES THIS NAUSEA AND DISCOMFORT IS NOT RELATED TO HER GALLBLADDER. Source of Information: Patient Exam Limitations: No Limitations History of Present Illness Date Seen by Provider: Oct 29, 2021 Time Seen by Provider: 20:24 Initial Comments To ER with reports of headache sore throat nausea For about 2 days. She started Flagyl for vaginal infection 4 days ago. No fevers or chills. She had a slight cough. Timing/Duration: 1-2 Days Severity: Moderate Associated Systoms: Headaches, Nausea/Vomiting Allergies and Home Medications Allergies Coded Allergies: Penicillins (Verified Allergy, Mild, RASH, 05/09/18) Sulfa (Sulfonamide Antibiotics) (Verified Allergy, Mild, RASH, 05/09/18) Patient Home Medication List Home Medication List Reviewed: Yes Albuterol Sulfate (Proair Hfa) 1 Puff Puff, 2 PUFF IH Q4H PRN for SHORTNESS OF BREATH, (Reported) Entered as Reported by: LAZARA SNYDER on 05/09/18 1226 Cetirizine HCl (Cetirizine HCl) 10 Mg Tablet, 10 MG PO DAILY, (Reported) Entered as Reported by: FACUNDO WIGGINS on 09/22/20 0727 Cholecalciferol (Vitamin D3) (Vitamin D3) 50 Mcg (2000 Unit) Capsule, 50 MCG PO UD, (Reported) Entered as Reported by: DARIEL LYNN on 10/28/21 1211 Fesoterodine Fumarate (Toviaz) 4 Mg Tab.sr.24h, 4 MG PO, (Reported) Entered as Reported by: DARIEL LYNN on 10/28/21 1211 Fluvoxamine Maleate (Fluvoxamine Maleate) 100 Mg Tablet, 150 MG PO BID, (Reported) Entered as Reported by: DARIEL LYNN on 10/28/21 1211 Gabapentin (Gabapentin) 300 Mg Capsule, 300 MG PO TID, (Reported) Entered as Reported by: LAZARA SNYDER on 05/09/18 1226 Hydrochlorothiazide (Hydrochlorothiazide) 50 Mg Tablet, 50 MG PO DAILY, (Reported) Entered as Reported by: LAZARA SNYDER on 05/09/18 122 Hydroxyzine Pamoate (Hydroxyzine Pamoate) 50 Mg Capsule, 50 MG PO BID, (Reported) Entered as Reported by: FACUNDO WIGGINS on 09/22/20726 Lamotrigine (Lamotrigine) 150 Mg Tablet, 150 MG PO DAILY, (Reported) Entered as Reported by: FACUNDO WIGGINS on 09/22/20726 Metoprolol Succinate (Metoprolol Succinate) 25 Mg Tab.er.24h, 25 MG PO DAILY, (Reported) Entered as Reported by: FACUNDO WIGGINS on 09/22/20726 Metronidazole (Metronidazole) 500 Mg Tablet, 500 MG PO BID, (Reported) Entered as Reported by: DARIEL LYNN on 10/28/211210 Pantoprazole Sodium (Pantoprazole Sodium) 20 Mg Tablet.dr, 20 MG PO DAILY, (Reported) Entered as Reported by: LAZARA SNYDER on 05/09/181225 Polyethylene Glycol 3350 (Polyethylene Glycol 3350) 17 Gm Powd.pack, 1 EACH PO BID, (Reported) Entered as Reported by: FACUNDO WIGGINS on 09/22/20726 Potassium Chloride (Potassium Chloride) 20 Meq Tab.er.prt, 20 MEQ PO BID, (Reported) Entered as Reported by: FACUNDO WIGGINS on 09/22/20726 Sucralfate (Sucralfate) 1 Gram Tablet, 1 GM PO UD, (Reported) Entered as Reported by: DARIEL LYNN on 10/28/21 121 Valbenazine Tosylate (Ingrezza) 40 Mg Capsule, 40 MG PO HS, (Reported) Entered as Reported by: DARIEL LYNN on 10/28/21 121 Discontinued Medications ARIPiprazole (Abilify Mycite) 5 Mg Tab.senspt, 5 MG PO DAILY, (Reported) Discontinued Reason: No Longer Taking Entered as Reported by: FACUNDO WIGGINS on 09/22/20726 Ciprofloxacin HCl/Dexameth (Ciprodex Otic Suspension) 7.5 Ml Soln, 7.5 ML OT BID Discontinued Reason: No Longer Taking Prescribed by: CONNOR DUNBAR on 10/01/20 0144 Fluvoxamine Maleate (Fluvoxamine Maleate) 100 Mg Tablet, 150 MG PO BID, (Reported) Discontinued Reason: No Longer Taking Entered as Reported by: FACUNDO WIGGINS on 09/22/20726 Guanfacine HCl (Guanfacine HCl) 1 Mg Tablet, 0.5 MG PO BID, (Reported) Discontinued Reason: No Longer Taking Entered as Reported by: FACUNDO WIGGINS on 09/22/20726 Metformin HCl (Metformin HCl ER) 500 Mg Tab.er.24h, 500 MG PO EVENING, (Reported) Discontinued Reason: No Longer Taking Entered as Reported by: FACUNDO WIGGINS on 09/22/20726 Trazodone HCl (Trazodone HCl) 50 Mg Tablet, 50-100 MG PO HS PRN for SLEEP, (Reported) Discontinued Reason: No Longer Taking Entered as Reported by: FACUNDO WIGGINS on 09/22/20726 Review of Systems Review of Systems Constitutional: see HPI, chills, malaise EENTM: see HPI Respiratory: see HPI, cough Cardiovascular: no symptoms reported Genitourinary: no symptoms reported Musculoskeletal: no symptoms reported Skin: no symptoms reported Psychiatric/Neurological: No Symptoms Reported Hematologic/Lymphatic: No Symptoms Reported Past Stydvoj-Ikdbrp-Ykgefj Hx Patient Social History Tobacco Use?: No Substance use?: No Alcohol Use?: No Immunizations Up To Date Tetanus Booster (TDap): More than 5yrs Influenza Vaccine Up-to-Date: Yes; Up-to-Date First/Initial COVID19 Vaccinat: UNKNOWN DATE Second COVID19 Vaccination Miguel: UNKNOWN DATE Third COVID19 Vaccination Date: NO COVID19 Vaccine Copper Plater: MODERNA Seasonal Allergies Seasonal Allergies: No Past Medical History Surgeries: Yes (RIGHT KNEE SCOPE, COLONOSCOPY;CARDIAC CATH-NO INTERVENTION) Cardiac, Orthopedic Respiratory: Yes Sleep Apnea, COPD Currently Using CPAP: Yes Currently Using BIPAP: No Cardiac: Yes (CARDIAC CATH-NO INTERVENTION) Coronary Artery Disease, High Cholesterol, Hypertension Neurological: Yes Headaches /Migraines, Neuropathy 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 ) Anxiety, Bipolar, Depression Integumentary: No Blood Disorders: No Adverse Reaction/Blood Tranf: No (N/A) Family Medical History PAST SURGICAL HISTORY: --09/22/20--CARDIAC CATH BY DR. MOLINA: CONCLUSIONS: 1. No angiographically significant coronary artery disease. 2. Normal left ventricular end-diastolic pressure. Physical Exam Vital Signs Vital Signs - First Documented 10/29/21 19:33 Temp 36.0 Pulse 76 Resp 20 B/P (MAP) 134/78 (96) Pulse Ox 96 O2 Delivery Room Air Capillary Refill : Height, Weight, BMI Height: 5'3.00" Weight: 267lbs. 0.0oz. 121.211714at; 40.00 BMI Method:Stated General Appearance: No Apparent Distress, WD/WN Eyes: Bilateral Eye Normal Inspection, Bilateral Eye PERRL, Bilateral Eye EOMI HEENT: PERRL/EOMI, TMs Normal, Normal ENT Inspection, Pharynx Normal Neck: Full Range of Motion, Normal Inspection Respiratory: No Accessory Muscle Use, No Respiratory Distress Cardiovascular: Regular Rate, Rhythm, Normal Peripheral Pulses Gastrointestinal: Normal Bowel Sounds, Non Tender, Soft Extremity: Normal Capillary Refill, Normal Inspection Neurologic/Psychiatric: Alert, Oriented x3 Skin: Normal Color, Warm/Dry Progress/Results/Core Measures Suspected Sepsis SIRS Temperature: Pulse: 76 Respiratory Rate: 20 Blood Pressure 134 /78 Mean: 96 Results/Orders Lab Results Laboratory Tests Test 10/29/21 19:40 Range/Units Influenza Type A (RT-PCR) Not Detected Not Detecte Influenza Type B (RT-PCR) Not Detected Not Detecte SARS-CoV-2 RNA (RT-PCR) Not Detected Not Detecte My Orders Orders - LISA BOWLES APRN Covid 19 Inhouse Test (10/29/21 19:24) Influenza A And B By Pcr (10/29/21 19:24) Vital Signs/I&O 10/29/21 19:33 Temp 36.0 Pulse 76 Resp 20 B/P (MAP) 134/78 (96) Pulse Ox 96 O2 Delivery Room Air Capillary Refill : Blood Pressure Mean: 96 Departure Impression Primary Impression: Viral syndrome Disposition: HOME, SELF-CARE Condition: Stable Departure-Patient Inst. Decision time for Depature: 20:26 Referrals: [facility] (PCP/Family) Primary Care Physician Patient Instructions: Viral Syndrome (DC) Add. Discharge Instructions: 1. Return to ER for any concerns. Follow-up with your doctor next week. Continue medication. All discharge instructions reviewed with patient and/or family. Voiced understanding. LISA BOWLES STAYING MACHINE OPERATOR Oct 29, 2021 20:26
[2021-10-29] MEDS ORDERED: IBUPROFEN 800 MG (MOTRIN) TAB PO ONE (20:30)
[2021-11-04] MEDS ORDERED: DOCU-143 PO (11:02)
[2021-11-04] MEDS ORDERED: ACHD5005 PO (11:02)
== END 2021-10-29 20:33 | disposition home or self-care (01) ==
LOC: EDUNIT# 19:21 → ER 19:23
DX: B34.9 Viral infection, unspecified (principal); G47.30 Sleep apnea, unspecified; Z99.89 Dependence on other enabling machines and devices; Z20.822 Contact with and (suspected) exposure to COVID-19
CPT/HCPCS: 87636; 99283

== ENCOUNTER 2021-11-04 08:04 | Day surgery (SDC) | payer MEDICAID ==
[2021-11-04] VITALS (12 sets, daily range): BP systolic 113–137; BP diastolic 73–88
[~2021-11-04] VITALS: Ht 160 cm; Wt 104.0 kg
--- NOTE | 2021-11-04 08:13 | Progress Note-Pre Operative ---
Pre-Operative Progress Note H&P Reviewed The H&P was reviewed, patient examined and no changes noted. Date Seen by Provider: Nov 04, 2021 Time Seen by Provider: 08:13 Date H&P Reviewed: Nov 04, 2021 Time H&P Reviewed: 08:13 Pre-Operative Diagnosis: right upper/epigastric abdominal pain biliary dyskinesia LENA PARTIDA DO Nov 04, 2021 08:13
[2021-11-04] MEDS ORDERED: CLINDAMYCIN 600 MG/50 ML IVPB 50 ML IV ONE (08:30)
[2021-11-04] MEDS ORDERED: LIDOCAINE/EPI 1%-1:100,000 (XYLOCAINE) 20ML ONE (08:39)
[2021-11-04] MEDS: LACTATED RINGERS 1,000 ML IV PRN ×2 (08:40→10:42)
[2021-11-04 09:10] LABS: AMPHETAMINE SCREEN, URINE NEGATIVE (NEGATIVE); BARBITURATE SCREEN URINE NEGATIVE (NEGATIVE); BENZODIAZEPINES SCREEN URINE NEGATIVE (NEGATIVE); CANNABINOID SCREEN, URINE NEGATIVE (NEGATIVE); COCAINE SCREEN URINE NEGATIVE (NEGATIVE); METHADONE STAT NEGATIVE (NEGATIVE); OPIATE SCREEN URINE NEGATIVE (NEGATIVE); OXYCODONE STAT NEGATIVE (NEGATIVE); PROPOXYPHENE STAT NEGATIVE (NEGATIVE); TRICYCLIC ANTIDEPRESSANTS SCRE NEGATIVE (NEGATIVE)
[2021-11-04] MEDS ORDERED: ONDANSETRON 4 MG/2 ML (SDV) Z0FRAN ONE (09:42)
[2021-11-04] MEDS ORDERED: MIDAZOLAM 2 MG/2 ML (VERSED) VIAL ONE (09:42)
[2021-11-04] MEDS ORDERED: SEVOFLURANE (ULTANE) 15 ML INHAL SOLN ONE ×2 (09:42→10:20)
[2021-11-04] MEDS ORDERED: fentaNYL INJ 100 MCG/2 ML AMP ONE (09:42)
[2021-11-04] MEDS ORDERED: LIDOCAINE PF 2% 5 ML (XYLOCAINE) VIAL ONE (09:42)
[2021-11-04] MEDS ORDERED: proPOfol 200 MG/20 ML (DIPRIVAN) VIAL IV ONE (09:42)
[2021-11-04] MEDS ORDERED: ATROPINE INJ 0.4 MG/ML SDV ONE (10:29)
[2021-11-04] MEDS ORDERED: GLYCOPYRROLATE 0.2 MG/ML (ROBINUL) 2 ML VIAL ONE (10:57)
[2021-11-04] MEDS ORDERED: NEOSTIGMINE (BLOXIVERZ ) 1 MG/1ML 10 ML VIAL ONE (10:59)
--- NOTE | 2021-11-04 11:00 | Progress Note-Post Operative ---
Post-Operative Progess Note Surgeon (s)/Anchor Tack Puller (s) Surgeon LENA PARTIDA DO Anchor Tack Puller: Dr. Alaniz to assist in retraction dissection and closure. Pre-Operative Diagnosis right upper/epigastric abdominal pain biliary dyskinesia Post-Operative Diagnosis same Procedure & Operative Findings Date of Procedure 11/04/21 Procedure Performed/Findings PROCEDURE: Laparoscopic cholecystectomy with intraoperative cholangiogram. COMPLICATIONS: None. PROCEDURE: The patient was taken to the operating suite and was prepped and draped in sterile fashion. A surgical pause was performed. Just superior to the umbilicus, a 12 mm incision was made. Dissection was taken down to the fascia, which was then scored and grasped with a Evita and the abdomen was then entered. A 0 Vicryl suture was placed in a ngnfcn-[id number]-tlaup fashion and a Diaz trocar was placed and secured. Pneumoperitoneum was achieved. A 5mm trochar place in the subxyphoid and 2 in the right upper quadrant. The gallbladder was then grasped and elevated. Multiple adhesions had to be taken down with blunt and cautery dissection. The cystic duct, and cystic artery were then dissected out. Clip was placed on the distal portion of the cystic duct which was then partially transected. An arrow catheter was inserted into the duct. The cholangiogram was then performed. No filing defects and contrast made its way into the duodenum. Catheter removed. Clips were placed on proximal portion of the cystic duct and then the duct was then transected. Clips were placed along the proximal and distal portion of the cystic artery which was then transected. Hook cautery was used to dissect the gallbladder from the gallbladder fossa achieving hemostasis. The gallbladder was placed in an Endobag and removed through the 12 mm trocar site. The abdomen was then reinspected. Copious amounts of irrigation were used to irrigate the abdomen and there were no signs of active bleeding. Hemostasis had been achieved. The 12 mm fascial defect was then closed with 0 Vicryl suture that had been placed in a [id number] fashion. The abdomen was then desufflated, the trocars were removed. The abdomen was then washed and dried. The skin was then closed using 4-0 Monocryl in a subcuticular fashion. The abdomen was washed and dried and Skin Affix was place over incisions. Patient tolerated the procedure well without any complications and was taken to the recovery room in stable condition. Anesthesia Type general Estimated Blood Loss Estimated blood loss (mL): minimal Specimens/Packing Specimens Removed gallbladder LENA PARTIDA DO Nov 04, 2021 11:00
[2021-11-04] MEDS ORDERED: DOCU-143 PO (11:02)
[2021-11-04] MEDS ORDERED: ACHD5005 PO (11:02)
--- NOTE | 2021-11-04 11:03 | Discharge Inst-Simple/Standard ---
Discharge Inst-Standard Discharge Medications New, Converted or Re-Newed RX: Transmitted to Pharmacy Patient Instructions/Follow Up Plan of Care/Instructions/FU: Caden 2 weeks Activity as Tolerated: No Discharge Diet: Regular Diet Other Inst to Patient Follow up Appt: Make appointment for 2 weeks. Instructions: No lifting greater than 10 pounds. No strenuous activity. May shower in 24 hours, no tub bath or soaking. Use incentive spirometer at home as directed. No Smoking Skin/Wound Care: You have special glue over incision, it will fall off on it's own. Symptoms to Report: Appetite Changes, Extremity Discoloration, Numbness/Tingling, Swelling Increased, Bleeding Excessive, Eyesight Changes, Pain Increased, Urine Color Change, Constipation(Persistent), Fever over 101 degree F, Pain/Pressure in chest, Urinating Difficulty, Cough Up/Vomit Blood, Heart Beat Irreg/Pounding, Pain/Pressure in jaw, Vaginal Bleeding Increase, Cramps in feet or legs, Lightheadedness, Pain/Pressure in shoulder, Diarrhea(Persistent), Memory Changes Suddenly, Questions/Concerns, Weight gain consecutive days, Dizziness/Fainting, Nausea/Vomiting, Shortness of Breath, Weight gain over 2 pounds. If eyes or skin turn yellow notify physician. If questions or concerns contact your physician Or seek help at emergency department. LENA PARTIDA DO Nov 04, 2021 11:03
[2021-11-04] MEDS ORDERED: ROCURONIUM 50 MG/5 ML (ZEMURON) VIAL IV ONE (11:04)
--- NOTE | 2021-11-04 11:14 | Anesthesia-General Post-Op ---
General Patient Condition Mental Status/LOC: Same as Preop Cardiovascular: Satisfactory Nausea/Vomiting: Absent Respiratory: Satisfactory Pain: Controlled Complications: Absent Post Op Complications Complications None Follow Up Care/Instructions Patient Instructions None needed. Anesthesia/Patient Condition Patient Condition Patient is doing well, no complaints, stable vital signs, no apparent adverse anesthesia problems. No complications reported per nursing. SVETA PONCE CRNA Nov 04, 2021 11:14
[2021-11-04] MEDS ORDERED: fentaNYL INJ 100 MCG/2 ML AMP IVP ONE (11:15)
[2021-11-04] MEDS ORDERED: MEPERIDINE (DEMEROL) INJ 50 MG/ML IVP ONE (11:15)
[2021-11-04] MEDS ORDERED: morphine INJ 10 MG/ML 1ML (SYR OR VIAL) IVP ONE (11:15)
[2021-11-04] MEDS ORDERED: ONDANSETRON 4 MG/2 ML (SDV) Z0FRAN IVP PRN (11:15)
--- NOTE | 2021-11-04 11:41 | Diagnostic Imaging Report ---
INDICATION: Fluoroscopy during intraoperative cholangiogram. Fluoroscopy was provided in the OR during intraoperative cholangiogram. 7 seconds of fluoroscopic time was utilized. 22 images were obtained demonstrating contrast being injected via the cystic duct remnant. Intrahepatic and extrahepatic bile ducts are opacified and normal caliber. No filling defects are seen to suggest retained stone. Contrast does flow into the duodenum. IMPRESSION: Fluoroscopy during intraoperative cholangiogram. Dictated by: Dictated on workstation # [id number]
== END 2021-11-04 13:25 | disposition home or self-care (01) ==
LOC: SDC 08:04
PROVIDERS: ATTEND Surgery
DX: K82.8 Other specified diseases of gallbladder (principal); K81.1 Chronic cholecystitis; E11.9 Type 2 diabetes mellitus without complications; G47.33 Obstructive sleep apnea (adult) (pediatric); E66.9 Obesity, unspecified; Z68.41 Body mass index [BMI] 40.0-44.9, adult; Z88.0 Allergy status to penicillin; Z88.2 Allergy status to sulfonamides; Z87.891 Personal history of nicotine dependence; Z79.899 Other long term (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; Z79.84 Long term (current) use of oral hypoglycemic drugs
CPT/HCPCS: 76000; 80306; 82947; 87081

== ENCOUNTER 2021-11-30 19:37 | Emergency (ER) | payer MEDICAID ==
[~2021-11-30] VITALS: Ht 160 cm; Wt 103.4 kg
[~2021-11-30 19:37] MED LIST changes: +ACHD5005 PO; +DOCU-143 PO
[2021-11-30] MEDS ORDERED: ANTACID SUSP 30 ML UDC (MYLANTA) PO ONE (20:00)
[2021-11-30] MEDS ORDERED: LIDOCAINE 2% VISCOUS 15 ML UDC PO ONE (20:00)
[2021-11-30] MEDS ORDERED: ONDANSETRON 4 MG/2 ML (SDV) Z0FRAN IVP ONE (20:00)
[2021-11-30 20:06] LABS: BASOPHILS # (AUTO) 0.1 10^3/uL (0.0-0.1); BASOPHILS % (AUTO) 1 % (0-10); EOSINOPHILS # (AUTO) 0.4 10^3/uL (0.0-0.3); EOSINOPHILS % (AUTO) 7 % (0-10); HEMATOCRIT 37 % (35-52); LYMPHOCYTES # (AUTO) 1.8 10^3/uL (1.0-4.0); LYMPHOCYTES % (AUTO) 29 % (12-44); MEAN CORPUSCULAR HEMOGLOBIN 28 pg (25-34); MEAN CORPUSCULAR HGB CONC 35 g/dL (32-36); MEAN CORPUSCULAR VOLUME 80 fL (80-99); MEAN PLATELET VOLUME 9.5 fL (9.0-12.2); MONOCYTES # (AUTO) 0.5 10^3/uL (0.0-1.0); MONOCYTES % (AUTO) 8 % (0-12); NEUTROPHILS # (AUTO) 3.5 10^3/uL (1.8-7.8); NEUTROPHILS % (AUTO) 56 % (42-75); PLATELET COUNT 193 10^3/uL (130-400); WHITE BLOOD COUNT 6.2 10^3/uL (4.3-11.0)
[2021-11-30 20:21] LABS: INR 0.9 (0.8-1.4); PROTHROMBIN TIME PATIENT 12.6 SEC (12.2-14.7)
[2021-11-30 20:24] LABS: ALBUMIN 4.2 GM/DL (3.2-4.5); POTASSIUM 3.4 MMOL/L (3.6-5.0)
[2021-11-30 20:26] LABS: CALCIUM 9.6 MG/DL (8.5-10.1)
[2021-11-30 20:27] LABS: TOTAL PROTEIN 6.8 GM/DL (6.4-8.2)
[2021-11-30 20:29] LABS: BILIRUBIN,TOTAL 0.4 MG/DL (0.1-1.0)
[2021-11-30 20:30] LABS: CREATININE SERUM 1.26 MG/DL (0.60-1.30)
[2021-11-30 20:33] LABS: MAGNESIUM 1.6 MG/DL (1.6-2.4)
[2021-11-30 20:34] LABS: LIPASE 11 U/L (8-78)
--- NOTE | 2021-11-30 20:37 | Diagnostic Imaging Report ---
INDICATION: Chest pain. COMPARISON: 04/22/2021. FINDINGS: Lungs demonstrate no consolidation to suggest pneumonia. There is no effusion. There is no pneumothorax. Mild enlargement of the cardiac silhouette is unchanged. There is no current evidence of edema or failure. IMPRESSION: Enlarged cardiac silhouette without current edema or failure. No findings of pneumonia or effusion evident. Dictated by: Dictated on workstation # [id number]
[2021-11-30] MEDS ORDERED: NITROGLYCERIN 0.4 MG SL TABS BTL 25'S SL PRN (21:30)
[2021-11-30] MEDS ORDERED: ASPIRIN 81 MG CHEW (CHILDREN'S ASA) PO ONE (21:30)
[2021-11-30] MEDS ORDERED: fentaNYL INJ 100 MCG/2 ML AMP IVP ONE (21:45)
[2021-11-30] MEDS ORDERED: IOHEXOL 350 MG/ML 100 ML (OMNIPAQUE 350) VIAL IV ONE (23:30)
[2021-11-30] MEDS ORDERED: CATHETER FLUSH 10 ML SYR IV PRN (23:30)
[2021-11-30] MEDS ORDERED: NS 100 ML (IVPB) BAG IV ONE (23:30)
--- NOTE | 2021-12-01 00:01 | ED Chest Pain ---
General Chief Complaint: Chest Pain Stated Complaint: CHEST PAIN Nursing Triage Note: PT ARRIVAL TO ER WITH COMPLAINT OF CHEST PAIN X1 HOUR. HEAVINESS/BURNING LIKE PAIN. Source: patient Exam Limitations: no limitations History of Present Illness Date Seen by Provider: Dec 01, 2021 Allergies and Home Medications Allergies Coded Allergies: Penicillins (Verified Allergy, Mild, RASH, 05/09/18) Sulfa (Sulfonamide Antibiotics) (Verified Allergy, Mild, RASH, 05/09/18) Patient Home Medication List Albuterol Sulfate (Proair Hfa) 1 Puff Puff, 2 PUFF IH Q4H PRN for SHORTNESS OF BREATH, (Reported) Entered as Reported by: LAZARA SNYDER on 05/09/18 1226 Cetirizine HCl (Cetirizine HCl) 10 Mg Tablet, 10 MG PO DAILY, (Reported) Entered as Reported by: FACUNDO WIGGINS on 09/22/20 0727 Cholecalciferol (Vitamin D3) (Vitamin D3) 50 Mcg (2000 Unit) Capsule, 50 MCG PO UD, (Reported) Entered as Reported by: DARIEL LYNN on 10/28/21 1211 Docusate Sodium (Colace) 100 Mg Capsule, 100 MG PO BID Prescribed by: LENA PARTIDA on 11/04/21 1102 Fesoterodine Fumarate (Toviaz) 4 Mg Tab.sr.24h, 4 MG PO, (Reported) Entered as Reported by: DARIEL LYNN on 10/28/21 1211 Fluvoxamine Maleate (Fluvoxamine Maleate) 100 Mg Tablet, 150 MG PO BID, (Reported) Entered as Reported by: DARIEL LYNN on 10/28/21 1211 Gabapentin (Gabapentin) 300 Mg Capsule, 300 MG PO TID, (Reported) Entered as Reported by: LAZARA SNYDER on 05/09/18 1226 Hydrochlorothiazide (Hydrochlorothiazide) 50 Mg Tablet, 50 MG PO DAILY, (Reported) Entered as Reported by: LAZARA SNYDER on 05/09/18 1226 Hydrocodone/Acetaminophen (Hydrocodone-Acetamin 5-325 mg) 5 Mg-325 Mg Tablet, 1 EACH PO Q4H PRN for PAIN-MODERATE (5-7) Prescribed by: LENA PARTIDA on 11/04/21 1103 Hydroxyzine Pamoate (Hydroxyzine Pamoate) 50 Mg Capsule, 50 MG PO BID, (Reported) Entered as Reported by: FACUNDO WIGGINS on 09/22/20726 Lamotrigine (Lamotrigine) 150 Mg Tablet, 150 MG PO DAILY, (Reported) Entered as Reported by: FACUNDO WIGGINS on 09/22/20726 Metoprolol Succinate (Metoprolol Succinate) 25 Mg Tab.er.24h, 25 MG PO DAILY, (Reported) Entered as Reported by: FACUNDO WIGGINS on 09/22/20726 Metronidazole (Metronidazole) 500 Mg Tablet, 500 MG PO BID, (Reported) Entered as Reported by: DARIEL LYNN on 10/28/211210 Pantoprazole Sodium (Pantoprazole Sodium) 20 Mg Tablet.dr, 20 MG PO DAILY, (Reported) Entered as Reported by: LAZARA SNYDER on 05/09/18 122 Polyethylene Glycol 3350 (Polyethylene Glycol 3350) 17 Gm Powd.pack, 1 EACH PO BID, (Reported) Entered as Reported by: FACUNDO WIGGINS on 09/22/20726 Potassium Chloride (Potassium Chloride) 20 Meq Tab.er.prt, 20 MEQ PO BID, (Reported) Entered as Reported by: FACUNDO WIGGINS on 09/22/20726 Sucralfate (Sucralfate) 1 Gram Tablet, 1 GM PO UD, (Reported) Entered as Reported by: DARIEL LYNN on 10/28/211210 Valbenazine Tosylate (Ingrezza) 40 Mg Capsule, 40 MG PO HS, (Reported) Entered as Reported by: DAREIL LYNN on 10/28/21 121 Past Mtvbron-Fwewhb-Vlkvod Hx Patient Social History Tobacco Use?: No Use of E-Cig and/or Vaping dev: No Substance use?: No Alcohol Use?: No Pt feels they are or have been: No Immunizations Up To Date Tetanus Booster (TDap): Unknown Influenza Vaccine Up-to-Date: No; Not Current First/Initial COVID19 Vaccinat: june 2020 Second COVID19 Vaccination Miguel: july 2020 Third COVID19 Vaccination Date: june 2020 Seasonal Allergies Seasonal Allergies: No Past Medical History Surgeries: Yes (RIGHT KNEE SCOPE, COLONOSCOPY;CARDIAC CATH-NO INTERVENTION) Cardiac, Orthopedic Respiratory: Yes Sleep Apnea, COPD Currently Using CPAP: Yes Currently Using BIPAP: No Cardiac: Yes (CARDIAC CATH-NO INTERVENTION) Coronary Artery Disease, High Cholesterol, Hypertension Neurological: Yes Headaches /Migraines, Neuropathy 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 ) Anxiety, Bipolar, Depression Integumentary: No Blood Disorders: No Adverse Reaction/Blood Tranf: No (N/A) Family Medical History PAST SURGICAL HISTORY: --09/22/20--CARDIAC CATH BY DR. MOLINA: CONCLUSIONS: 1. No angiographically significant coronary artery disease. 2. Normal left ventricular end-diastolic pressure. Physical Exam Vital Signs Vital Signs - First Documented 11/30/21 19:51 Temp 37.0 Pulse 83 Resp 16 B/P (MAP) 123/83 (96) Pulse Ox 97 O2 Delivery Room Air Capillary Refill : Less Than 3 Seconds Height, Weight, BMI Height: 5'3.00" Weight: 267lbs. 0.0oz. 121.962494sc; 40.00 BMI Method:Stated Progress/Results/Core Measures Results/Orders Lab Results Laboratory Tests Test 11/30/21 19:57 11/30/21 23:35 Range/Units White Blood Count 6.2 4.3-11.0 10^3/uL Red Blood Count 4.67 3.80-5.11 10^6/uL Hemoglobin 13.0 11.5-16.0 g/dL Hematocrit 37 35-52 % Mean Corpuscular Volume 80 80-99 fL Mean Corpuscular Hemoglobin 28 25-34 pg Mean Corpuscular Hemoglobin Concent 35 32-36 g/dL Red Cell Distribution Width 12.6 10.0-14.5 % Platelet Count 193 130-400 10^3/uL Mean Platelet Volume 9.5 9.0-12.2 fL Immature Granulocyte % (Auto) 0 % Neutrophils (%) (Auto) 56 42-75 % Lymphocytes (%) (Auto) 29 12-44 % Monocytes (%) (Auto) 8 0-12 % Eosinophils (%) (Auto) 7 0-10 % Basophils (%) (Auto) 1 0-10 % Neutrophils # (Auto) 3.5 1.8-7.8 10^3/uL Lymphocytes # (Auto) 1.8 1.0-4.0 10^3/uL Monocytes # (Auto) 0.5 0.0-1.0 10^3/uL Eosinophils # (Auto) 0.4 H 0.0-0.3 10^3/uL Basophils # (Auto) 0.1 0.0-0.1 10^3/uL Immature Granulocyte # (Auto) 0.0 0.0-0.1 10^3/uL Prothrombin Time 12.6 12.2-14.7 SEC INR Comment 0.9 0.8-1.4 Activated Partial Thromboplast Time 25 24-35 SEC D-Dimer 0.94 H 0.00-0.49 UG/ML Sodium Level 136 135-145 MMOL/L Potassium Level 3.4 L 3.6-5.0 MMOL/L Chloride Level 100 98-107 MMOL/L Carbon Dioxide Level 24 21-32 MMOL/L Anion Gap 12 5-14 MMOL/L Blood Urea Nitrogen 15 7-18 MG/DL Creatinine 1.26 0.60-1.30 MG/DL Estimat Glomerular Filtration Rate 50 BUN/Creatinine Ratio 12 Glucose Level 77 70-105 MG/DL Calcium Level 9.6 8.5-10.1 MG/DL Corrected Calcium 9.4 8.5-10.1 MG/DL Magnesium Level 1.6 1.6-2.4 MG/DL Total Bilirubin 0.4 0.1-1.0 MG/DL Aspartate Amino Transf (AST/SGOT) 17 5-34 U/L Alanine Aminotransferase (ALT/SGPT) 22 0-55 U/L Alkaline Phosphatase 117 40-136 U/L Myoglobin 35.6 10.0-92.0 NG/ML Troponin I < 0.028 < 0.028 <0.028 NG/ML Total Protein 6.8 6.4-8.2 GM/DL Albumin 4.2 3.2-4.5 GM/DL Lipase 11 8-78 U/L Thyroid Stimulating Hormone (TSH) 0.49 0.35-4.94 UIU/ML Free Thyroxine 1.11 0.70-1.48 NG/DL Influenza Type A (RT-PCR) Not Detected Not Detecte Influenza Type B (RT-PCR) Not Detected Not Detecte SARS-CoV-2 RNA (RT-PCR) Not Detected Not Detecte My Orders Orders - YURIY KHALIL MD Cbc With Automated Diff (11/30/21 19:40) Magnesium (11/30/21 19:40) Chest 1 View, Ap/Pa Only (11/30/21 19:40) Ekg Tracing (11/30/21 19:40) Comprehensive Metabolic Panel (11/30/21 19:40) Myoglobin Serum (11/30/21 19:40) Protime With Inr (11/30/21 19:40) Partial Thromboplastin Time (11/30/21 19:40) O2 (11/30/21 19:40) Monitor-Rhythm Ecg Trace Only (11/30/21 19:40) Ed Iv/Invasive Line Start (11/30/21 19:40) Troponin I [place] (11/30/21 19:40) Lipase (11/30/21 19:56) Covid 19 Inhouse Test (11/30/21 19:56) Influenza A And B By Pcr (11/30/21 19:56) Ondansetron Injection (Zofran Injectio (11/30/21 20:00) Lidocaine 2% Viscous 15 Ml (Xylocaine Vi (11/30/21 20:00) Antacid Suspension (Mylanta Suspension (11/30/21 20:00) Troponin I Sammy (11/30/21 23:00) Aspirin Chewable Tablet (Baby Aspirin Ch (11/30/21 21:30) Fibrin Degradation Products (11/30/21 21:27) Fentanyl Inj (Sublimaze Injection) (11/30/21 21:45) Ct Angio Chest W (11/30/21 23:03) Iohexol Injection (Omnipaque 350 Mg/Ml 1 (11/30/21 23:30) Sodium Chloride Flush (Catheter Flush Sy (11/30/21 23:30) Ns (Ivpb) (Sodium Chloride 0.9% Ivpb Bag (11/30/21 23:30) Thyroid Stimulating Hormone (12/01/21 00:02) Free T4 (Free Thyroxine) (12/01/21 00:02) Medications Given in ED Current Medications Medications Dose Ordered Sig/Bubba Route Start Time Stop Time Status Last Admin Dose Admin Al Hydrox/Mg Hydrox/Simethicone 30 ml ONCE ONCE PO 11/30/21 20:00 11/30/21 20:01 DC 11/30/21 20:17 30 ML Aspirin 324 mg ONCE ONCE PO 11/30/21 21:30 11/30/21 21:31 DC 11/30/21 21:34 324 MG Fentanyl Citrate 25 mcg ONCE ONCE IVP 11/30/21 21:45 11/30/21 21:46 DC 11/30/21 22:14 25 MCG Iohexol 100 ml ONCE ONCE IV 11/30/21 23:30 11/30/21 23:31 DC 11/30/21 23:30 90 ML Lidocaine HCl 15 ml ONCE ONCE PO 11/30/21 20:00 11/30/21 20:01 DC 11/30/21 20:17 15 ML Ondansetron HCl 4 mg ONCE ONCE IVP 11/30/21 20:00 11/30/21 20:01 DC 11/30/21 20:17 4 MG Sodium Chloride 10 ml NEEDED PRN IV 11/30/21 23:30 12/01/21 00:39 DC 11/30/21 23:30 10 ML Sodium Chloride 100 ml ONCE ONCE IV 11/30/21 23:30 11/30/21 23:31 DC 11/30/21 23:30 80 ML Vital Signs/I&O 11/30/21 12/01/21 19:51 00:21 Temp 37.0 Pulse 83 83 Resp 16 18 B/P (MAP) 123/83 (96) 126/81 Pulse Ox 97 97 O2 Delivery Room Air Room Air Blood Pressure Mean: 96 Progress Progress Note : Progress Note Initial work-up was unremarkable. Aspirin was given but nitroglycerin was withheld due to low normal blood pressures. GI cocktail did not improve her pain. Pain was 9/10 after GI cocktail. Because of recent surgery, D-dimer was obtained to rule out PE. D-dimer was elevated and CT angiogram was pursued. CT was negative for PE but did demonstrate some prominent lymph nodes and concern for bronchitis. It also demonstrated incidental thyroid nodule. These findings were discussed with the patient. She is being started on azithromycin and is instructed to follow-up with her primary care provider to review imaging results. Initial ECG Impression Date: Nov 30, 2021 Initial ECG Impression Time: 19:55 Initial ECG Rate: 80 Initial ECG Rhythm: Normal Sinus Initial ECG Impression: Normal Comment Normal sinus rhythm with no ST elevation or depression. No abnormal intervals or axis deviation. Departure Impression Primary Impression: Chest pain Qualified Codes: R07.9 - Chest pain, unspecified Additional Impression: Thyroid nodule Disposition: HOME, SELF-CARE Condition: Improved Departure-Patient Inst. Decision time for Depature: 00:09 Referrals: [facility] (PCP/Family) Primary Care Physician Patient Instructions: Thyroid Nodules, Chest Pain, Adult ED Add. Discharge Instructions: Follow-up with your primary care provider soon as possible. Please call this morning to schedule a follow-up appointment. At your follow-up appointment, please review the CT scan report and discuss next steps. Among incidental findings on your CT scan was a thyroid nodule. Thyroid labs have been ordered during your ER visit and need to be reviewed with your primary care provider. You may take Tylenol (acetaminophen) up to 1000 mg every 6 hours as needed for pain. Add ibuprofen sparingly up to 600 mg every 6 hours as needed for additional temporary treatment of pain. Return to the ER if you have worsening symptoms despite following these in structions. All discharge instructions reviewed with patient and/or family. Voiced understanding. Copy Copies To 1: [facility]/YURIY RUBIO MD Dec 01, 2021 00:01
[2021-12-01 00:21] VITALS: BP 126/81
[2021-12-01 00:43] LABS: FREE T4 (FREE THYROXINE) 1.11 NG/DL (0.70-1.48)
--- NOTE | 2021-12-01 07:45 | Diagnostic Imaging Report ---
PROCEDURE: CT angiography of the chest with contrast. TECHNIQUE: Multiple contiguous axial images were obtained through the chest after uneventful bolus administration of intravenous contrast. 3D reconstructed CTA MIP acquisitions were also performed. Auto Exposure Controls were utilized during the CT exam to meet ALARA standards for radiation dose reduction. INDICATION: Chest pain COMPARISON: 04/16/2020 There is good opacification of pulmonary arteries without intraluminal filling defect. There is bovine type aortic arch with no evidence of aortic dissection or aneurysm. There is no evidence of mediastinal hematoma or pathologically enlarged adenopathy. There is continued heterogeneous enlarged left lobe of the thyroid gland including goiter. There are prominent bilateral axillary lymph nodes similar to the previous study. There is mild background groundglass density throughout the lungs. No lobar consolidation is identified. IMPRESSION: No CTA evidence of pulmonary embolism. There are chronic findings in the thorax with mildly prominent axillary lymph nodes and left goiter. There has been mild overall increase in groundglass density in the lungs which may be due to bronchiolitis or pneumonitis. Dictated by: Dictated on workstation # [id number]
== END 2021-12-01 00:34 | disposition home or self-care (01) ==
LOC: EDUNIT# 19:37 → ER 19:39
DX: R07.89 Other chest pain (principal); E04.1 Nontoxic single thyroid nodule; Z86.79 Personal history of other diseases of the circulatory system
CPT/HCPCS: 36415; 71045; 71275; 80053; 83690; 83735; 83874; 84439; 84443; 84484; 85025; 85379; 85610; 85730; 87636; 93005; 93041

== ENCOUNTER → 2022-03-03 | Outpatient (CLI) | payer MEDICAID ==
[~2022-03-03] MED LIST changes: +ALBU8.5H6 IH; -RT-ALBUINH IH
--- NOTE | 2022-03-03 18:27 | Diagnostic Imaging Report ---
PROCEDURE: US Thyroid. TECHNIQUE: Multiple real-time grayscale images were obtained of the thyroid in various projections. INDICATION: Thyroid nodule. COMPARISON: 02/19/2021. FINDINGS: Right thyroid lobe: The right thyroid lobe measures 5.0 x 1.8 x 1.3 cm. A solid, hypoechoic circumscribed nodule which is wider than tall has a maximal diameter of 1.4 cm (previously 2.0 cm), TI-RADS 4. Isthmus: The thyroid isthmus measures 0.4 cm and is without nodule. Left thyroid lobe: The left thyroid lobe measures 7.1 x 4.5 x 3.6 cm. The solid, isoechoic nodule which is wider than tall is stable in size measuring 4.1 cm in maximal dimension (previously 4.5 cm), TI-RADS 3. IMPRESSION: Bilateral thyroid nodules are stable to decreased in size. Follow-up thyroid ultrasound in one year is recommended. ACR TI-RADS: TR4. TI-RADS Recommendations:TR4 - Moderately Suspicious: FNA if >1.5 cm; Follow if > 1.0 cm at 1, 2, 3 and 5 years. Dictated by: Dictated on workstation # [id number]
== END ==
LOC: RAD 11:06
PROVIDERS: ATTEND Otolaryngology Otolaryngology/Facial Plastic Surgery
DX: E04.2 Nontoxic multinodular goiter (principal)
CPT/HCPCS: 76536

== ENCOUNTER 2022-07-04 16:50 | Emergency (ER) | payer MEDICAID ==
[~2022-07-04] VITALS: Ht 160 cm; Wt 62.5 kg
--- NOTE | 2022-07-04 17:09 | ED Chest Pain ---
General Chief Complaint: Chest Pain Stated Complaint: CHEST PAIN Nursing Triage Note: PT AMB TO [facility] 5 WITH COMPLAINT OF CP FOR 4 DAYS. WENT TO WALK IN CLINIC TODAY ADN WAS SENT OUT TO ER FOR FURTHER EVALUATION. Source: patient Exam Limitations: no limitations History of Present Illness Date Seen by Provider: Jul 04, 2022 Time Seen by Provider: 17:09 Initial Comments Patient is a 57-year-old with a history of bipolar disorder who presents to the emergency room from [facility] walk-in clinic chief complaint of chest pain. Patient states that she has had intermittent chest pain over the last 4-5d with a slight cough. Nonproductive cough she states she was walking at [facility] today at about 9 AM when she had onset of a "squeezing" type chest pain midsternal. non radiating. She states she was very nauseated. No diaphoresis. She does admit to a little shortness of breath. She denies any recent fever, upper respiratory congestion, runny nose or earache. She states she still has some midsternal discomfort. It hurts to take a deep breath. No abdominal pain. No problems with bowel or bladder. No unusual swelling in her legs. Her sister is with her at the bedside. She does have a history of "prediabetes" and is on oral hypoglycemics. She does not have hypertension. She is not a smoker. No family history of coronary artery disease in family members at her age. She has a history of low potassium. Timing/Duration: 4-6 hours, constant Severity/Quality: moderate, other ("Squeezing") Location: substernal Radiation: no radiation Activities at Onset: activity (Walking in [facility]) Prior CP/Workup: cardiolye scan ASA po BALL WINDER: No NTG SL BALL WINDER: No Allergies and Home Medications Allergies Coded Allergies: Penicillins (Verified Allergy, Mild, RASH, 05/09/18) Sulfa (Sulfonamide Antibiotics) (Verified Allergy, Mild, RASH, 05/09/18) Patient Home Medication List Home Medication List Reviewed: Yes Albuterol Sulfate (Ventolin Hfa) 1 Puff Puff, 2 PUFF IH Q4H PRN for SHORTNESS OF BREATH, (Reported) Entered as Reported by: LAZARA SNYDER on 05/09/18 1226 Cetirizine HCl (Cetirizine HCl) 10 Mg Tablet, 10 MG PO DAILY, (Reported) Entered as Reported by: FACUNDO WIGGINS on 09/22/20726 Cholecalciferol (Vitamin D3) (Vitamin D3) 50 Mcg (2000 Unit) Capsule, 50 MCG PO UD, (Reported) Entered as Reported by: DARIEL LYNN on 10/28/211210 Docusate Sodium (Colace) 100 Mg Capsule, 100 MG PO BID Prescribed by: LENA PARTIDA on 11/04/21 110 Fesoterodine Fumarate (Toviaz) 4 Mg Tab.sr.24h, 4 MG PO, (Reported) Entered as Reported by: DARIEL LYNN on 10/28/21 121 Fluvoxamine Maleate (Fluvoxamine Maleate) 100 Mg Tablet, 150 MG PO BID, (Reported) Entered as Reported by: DARIEL LYNN on 10/28/21 121 Gabapentin (Gabapentin) 300 Mg Capsule, 300 MG PO TID, (Reported) Entered as Reported by: LAZARA SNYDER on 05/09/18 122 Hydrochlorothiazide (Hydrochlorothiazide) 50 Mg Tablet, 50 MG PO DAILY, (Reported) Entered as Reported by: LAZARA SNYDER on 05/09/18 1226 Hydrocodone/Acetaminophen (Hydrocodone-Acetamin 5-325 mg) 5 Mg-325 Mg Tablet, 1 EACH PO Q4H PRN for PAIN-MODERATE (5-7) Prescribed by: LENA PARTIDA on 11/04/21 110 Hydroxyzine Pamoate (Hydroxyzine Pamoate) 50 Mg Capsule, 50 MG PO BID, (Reported) Entered as Reported by: FACUNDO WIGGINS on 09/22/20726 Lamotrigine (Lamotrigine) 150 Mg Tablet, 150 MG PO DAILY, (Reported) Entered as Reported by: FACUNDO WIGGINS on 09/22/20726 Metoprolol Succinate (Metoprolol Succinate) 25 Mg Tab.er.24h, 25 MG PO DAILY, (Reported) Entered as Reported by: FACUNDO WIGGINS on 09/22/20726 Metronidazole (Metronidazole) 500 Mg Tablet, 500 MG PO BID, (Reported) Entered as Reported by: DARIEL LYNN on 10/28/211210 Pantoprazole Sodium (Pantoprazole Sodium) 20 Mg Tablet.dr, 20 MG PO DAILY, (Reported) Entered as Reported by: LAZARA SNYDER on 05/09/18 1226 Polyethylene Glycol 3350 (Polyethylene Glycol 3350) 17 Gm Powd.pack, 1 EACH PO BID, (Reported) Entered as Reported by: FACUNDO WIGGINS on 09/22/20 0727 Potassium Chloride (Potassium Chloride) 20 Meq Tab.er.prt, 20 MEQ PO BID, (Reported) Entered as Reported by: FACUNDO WIGGINS on 09/22/20 07 Sucralfate (Sucralfate) 1 Gram Tablet, 1 GM PO UD, (Reported) Entered as Reported by: DARIEL LYNN on 10/28/21 1211 Valbenazine Tosylate (Ingrezza) 40 Mg Capsule, 40 MG PO HS, (Reported) Entered as Reported by: DARIEL LYNN on 10/28/21 1211 Review of Systems Review of Systems Constitutional: see HPI EENTM: No Symptoms Reported Cardiovascular: Chest Pain Gastrointestinal: Nausea Genitourinary: No Symptoms Reported Musculoskeletal: no symptoms reported Skin: no symptoms reported Psychiatric/Neurological: No Symptoms Reported Endocrine: No Symptoms Reported All Other Systems Reviewed Negative Unless Noted: Yes Past Pqxymto-Lbbolf-Gddxcn Hx Patient Social History Tobacco Use?: No Use of E-Cig and/or Vaping dev: No Substance use?: No Alcohol Use?: No Pt feels they are or have been: No Immunizations Up To Date Tetanus Booster (TDap): Unknown First/Initial COVID19 Vaccinat: june 2020 Second COVID19 Vaccination Miguel: july 2020 Third COVID19 Vaccination Date: june 2020 Seasonal Allergies Seasonal Allergies: No Past Medical History Surgeries: Yes (RIGHT KNEE SCOPE, COLONOSCOPY;CARDIAC CATH-NO INTERVENTION) Cardiac, Gallbladder, Orthopedic Respiratory: Yes Sleep Apnea, COPD Currently Using CPAP: Yes Currently Using BIPAP: No Cardiac: Yes (CARDIAC CATH-NO INTERVENTION) High Cholesterol, Hypertension Neurological: Yes Headaches /Migraines, Neuropathy [employer]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 ) Anxiety, Bipolar, Depression Integumentary: No Blood Disorders: No Adverse Reaction/Blood Tranf: No (N/A) Family Medical History PAST SURGICAL HISTORY: --09/22/20--CARDIAC CATH BY DR. MOLINA: CONCLUSIONS: 1. No angiographically significant coronary artery disease. 2. Normal left ventricular end-diastolic pressure. Physical Exam Vital Signs Vital Signs - First Documented 07/04/22 16:58 Temp 36.4 Pulse 76 Resp 24 B/P (MAP) 122/77 (92) Pulse Ox 95 O2 Delivery Room Air Capillary Refill : Less Than 3 Seconds Height, Weight, BMI Height: 5'3.00" Weight: 267lbs. 0.0oz. 121.654658wx; 24.00 BMI Method:Stated General Appearance: No Apparent Distress, WD/WN HEENT: PERRL/EOMI Neck: Normal Inspection Respiratory: Lungs Clear, Normal Breath Sounds, No Accessory Muscle Use, No Respiratory Distress Cardiovascular: Regular Rate, Rhythm, Normal Peripheral Pulses Gastrointestinal: Normal Bowel Sounds, Non Tender, Soft Extremity: Normal Capillary Refill, Normal Inspection, Normal Range of Motion, Non Tender, No Calf Tenderness, No Pedal Edema Neurologic/Psychiatric: Alert, Oriented x3, No Motor/Sensory Deficits, Normal Mood/Affect Skin: Normal Color, Warm/Dry Progress/Results/Core Measures Results/Orders Lab Results Laboratory Tests Test 07/04/22 17:10 Range/Units White Blood Count 5.3 4.3-11.0 10^3/uL Red Blood Count 5.11 3.80-5.11 10^6/uL Hemoglobin 13.5 11.5-16.0 g/dL Hematocrit 40 35-52 % Mean Corpuscular Volume 77 L 80-99 fL Mean Corpuscular Hemoglobin 26 25-34 pg Mean Corpuscular Hemoglobin Concent 34 32-36 g/dL Red Cell Distribution Width 13.2 10.0-14.5 % Platelet Count 190 130-400 10^3/uL Mean Platelet Volume 9.9 9.0-12.2 fL Immature Granulocyte % (Auto) 0 % Neutrophils (%) (Auto) 60 42-75 % Lymphocytes (%) (Auto) 23 12-44 % Monocytes (%) (Auto) 11 0-12 % Eosinophils (%) (Auto) 5 0-10 % Basophils (%) (Auto) 1 0-10 % Neutrophils # (Auto) 3.2 1.8-7.8 10^3/uL Lymphocytes # (Auto) 1.2 1.0-4.0 10^3/uL Monocytes # (Auto) 0.6 0.0-1.0 10^3/uL Eosinophils # (Auto) 0.3 0.0-0.3 10^3/uL Basophils # (Auto) 0.0 0.0-0.1 10^3/uL Immature Granulocyte # (Auto) 0.0 0.0-0.1 10^3/uL Prothrombin Time 13.5 12.2-14.7 SEC INR Comment 1.0 0.8-1.4 Activated Partial Thromboplast Time 27 24-35 SEC Sodium Level 141 135-145 MMOL/L Potassium Level 3.8 3.6-5.0 MMOL/L Chloride Level 103 98-107 MMOL/L Carbon Dioxide Level 28 21-32 MMOL/L Anion Gap 10 5-14 MMOL/L Blood Urea Nitrogen 18 7-18 MG/DL Creatinine 1.52 H 0.60-1.30 MG/DL Estimat Glomerular Filtration Rate 40 BUN/Creatinine Ratio 12 Glucose Level 85 70-105 MG/DL Calcium Level 10.1 8.5-10.1 MG/DL Corrected Calcium 9.9 8.5-10.1 MG/DL Magnesium Level 1.9 1.6-2.4 MG/DL Total Bilirubin 0.4 0.1-1.0 MG/DL Aspartate Amino Transf (AST/SGOT) 18 5-34 U/L Alanine Aminotransferase (ALT/SGPT) 20 0-55 U/L Alkaline Phosphatase 117 40-136 U/L Troponin I < 0.028 <0.028 NG/ML Total Protein 7.1 6.4-8.2 GM/DL Albumin 4.2 3.2-4.5 GM/DL My Orders Orders - JENNI KOEHLER MD Cbc With Automated Diff (07/04/22 17:08) Magnesium (07/04/22 17:08) Chest 1 View, Ap/Pa Only (07/04/22 17:08) Ekg Tracing (07/04/22 17:08) Comprehensive Metabolic Panel (07/04/22 17:08) Protime With Inr (07/04/22 17:08) Partial Thromboplastin Time (07/04/22 17:08) O2 (07/04/22 17:08) Monitor-Rhythm Ecg Trace Only (07/04/22 17:08) Lipid Panel (07/05/22 06:00) Ed Iv/Invasive Line Start (07/04/22 17:08) Troponin I Sammy (07/04/22 17:08) Vital Signs/I&O 07/04/22 16:58 Temp 36.4 Pulse 76 Resp 24 B/P (MAP) 122/77 (92) Pulse Ox 95 O2 Delivery Room Air Blood Pressure Mean: 92 Progress Progress Note : Time: 17:47 Progress Note Patient seen and evaluated by me, 57-year-old with a history of "prediabetes", history of low potassium. Chest pain today. Patient evaluation includes physical exam, CBC, chemistry, coag profile, serial troponin, EKG and chest x- ray. Patient has had ongoing pain for greater than 6 hours constant nonradiating with no associated symptoms. Physical exam pertinent for soft abdomen, regular heart, clear lungs, moist mucous membranes. No lower extremity edema. No calf tenderness. Differential diagnosis based on history and physical exam, acute coronary syndrome, GERD, pulmonary embolism. Labs reviewed, CBC is normal, chemistry shows mildly elevated creat 1.52 (GFR 40), coags normal. No evidence of low potassium. Serum troponin greater than 6 hours after the onset of pain less than 0.028. EKG normal sinus rhythm without ectopy or ST segment change. Chest x-ray is unremarkable. Patient's vital signs of been stable. Will treat for musculoskeletal type pain. She does not have any findings consistent with acute coronary syndrome. She has no historical features or physical exam findings concerning for acute pulmon izabel embolism. She does not describe heartburn. We will give her some Tylenol as her creatinine was the only thing abnormal on her chemistry, 1.52 with a GFR 40. Patient noted to have "low geoff" O2 - 90-93% while laying in the bed. Wears O2 at night and CPAP. I advised her sister to follow up with [facility] about this and told her if she is sleeping during the day she needs to be wearing her CPAP. Recommend conservative care at home for her chest pain. Follow-up with her primary care physician. No clinical or objective findings to warrant antibiotic need at this time. Return precautions provided. Family and patient verbalized understanding and agreement with plan of care. All questions are sought and answered. Patient stable for discharge Initial ECG Impression Date: Jul 04, 2022 Initial ECG Impression Time: 16:59 Initial ECG Rate: 77 Initial ECG Rhythm: Normal Sinus Initial ECG Impression: Normal Diagnostic Imaging Diagonstic Imaging: Xray Plain Films/CT/US/NM/MRI: chest Comments [facility] [place], [place] NAME: KALIN SUN [facility] REC#: [id number] PT STATUS: REG ER : 1965 PHYSICIAN: JENNI KOEHLER MD ADMIT DATE: 07/04/22/ER Draft Date of Exam:07/04/22 CHEST 1 VIEW, AP/PA ONLY INDICATION: Chest pain. COMPARISON: 11/30/[address] angiogram of the chest from 11/30/2021. FINDINGS: There is no dense airspace consolidation present within the lungs. There is no evidence of a significant effusion or pneumothorax. Heart size is stable. There are no current findings to suggest edema or failure. There is no pneumothorax. IMPRESSION: 1. Stable appearance of the chest. There is stable mild enlargement of the cardiac silhouette without current evidence of edema or failure. There are no findings of pneumonia or of an effusion. Dictated on workstation # [id number] Dict: 07/04/22 1721 Trans: 07/04/22 1731 [id number] Interpreted by: JOAQUINA ELIZONDO MD Electronically signed by: Departure Impression Primary Impression: Chest pain Qualified Codes: R07.9 - Chest pain, unspecified Disposition: 01 HOME, SELF-CARE Condition: Stable Departure-Patient Inst. Decision time for Depature: 17:50 Referrals: PATRICIA GRAJEDA APRN (PCP/Family) Primary Care Physician Patient Instructions: Chest Pain That Is Not Caused by the Heart (DC) Add. Discharge Instructions: You can take [id number] extra strength Tylenol, 2 tablets every 6 hours as needed for pain. You should try and avoid ibuprofen products for now as your kidney function is a little bit high. This means your kidneys are not working as good as they could be. This will need follow-up with your primary care physician. Please call for a follow-up appointment within about a week. If she is "napping" during the day, she should be wearing her Oxygen. Please follow up with Corrine at [facility] about possibly ordering Oxygen for day time use. If you develop fever, worsening cough or shortness of breath or worsening chest pain please return to the emergency department for reevaluation. Copy Copies To 1: [facility]/JENNI GONG MD Jul 04, 2022 17:09
[2022-07-04 17:15] LABS: BASOPHILS % (AUTO) 1 % (0-10); EOSINOPHILS # (AUTO) 0.3 10^3/uL (0.0-0.3); EOSINOPHILS % (AUTO) 5 % (0-10); HEMATOCRIT 40 % (35-52); HEMOGLOBIN 13.5 g/dL (11.5-16.0); LYMPHOCYTES # (AUTO) 1.2 10^3/uL (1.0-4.0); LYMPHOCYTES % (AUTO) 23 % (12-44); MEAN CORPUSCULAR HEMOGLOBIN 26 pg (25-34); MEAN CORPUSCULAR HGB CONC 34 g/dL (32-36); MEAN CORPUSCULAR VOLUME 77 fL (80-99); MEAN PLATELET VOLUME 9.9 fL (9.0-12.2); MONOCYTES # (AUTO) 0.6 10^3/uL (0.0-1.0); MONOCYTES % (AUTO) 11 % (0-12); NEUTROPHILS # (AUTO) 3.2 10^3/uL (1.8-7.8); NEUTROPHILS % (AUTO) 60 % (42-75); PLATELET COUNT 190 10^3/uL (130-400); WHITE BLOOD COUNT 5.3 10^3/uL (4.3-11.0)
[2022-07-04 17:21] LABS: ALBUMIN 4.2 GM/DL (3.2-4.5); POTASSIUM 3.8 MMOL/L (3.6-5.0)
[2022-07-04 17:22] LABS: CALCIUM 10.1 MG/DL (8.5-10.1)
[2022-07-04 17:23] LABS: TOTAL PROTEIN 7.1 GM/DL (6.4-8.2)
[2022-07-04 17:25] LABS: BILIRUBIN,TOTAL 0.4 MG/DL (0.1-1.0)
[2022-07-04 17:27] LABS: CREATININE SERUM 1.52 MG/DL (0.60-1.30)
[2022-07-04 17:28] LABS: PROTHROMBIN TIME PATIENT 13.5 SEC (12.2-14.7)
[2022-07-04 17:29] LABS: MAGNESIUM 1.9 MG/DL (1.6-2.4)
--- NOTE | 2022-07-04 17:32 | Diagnostic Imaging Report ---
INDICATION: Chest pain. COMPARISON: 11/30/[address] angiogram of the chest from 11/30/2021. FINDINGS: There is no dense airspace consolidation present within the lungs. There is no evidence of a significant effusion or pneumothorax. Heart size is stable. There are no current findings to suggest edema or failure. There is no pneumothorax. IMPRESSION: 1. Stable appearance of the chest. There is stable mild enlargement of the cardiac silhouette without current evidence of edema or failure. There are no findings of pneumonia or of an effusion. Dictated by: Dictated on workstation # [id number]
[2022-07-04 18:05] VITALS: BP 110/48
== END 2022-07-04 18:05 | disposition home or self-care (01) ==
LOC: EDUNIT# 16:50 → ER 16:52
DX: R07.2 Precordial pain (principal); R79.89 Other specified abnormal findings of blood chemistry; E66.9 Obesity, unspecified; R73.03 Prediabetes; Z79.84 Long term (current) use of oral hypoglycemic drugs; Z68.24 Body mass index [BMI] 24.0-24.9, adult
CPT/HCPCS: 36415; 71045; 80053; 83735; 84484; 85025; 85610; 85730; 93005; 93041

== ENCOUNTER 2022-07-15 20:18 | Emergency (ER) | payer MEDICAID ==
[~2022-07-15] VITALS: Ht 160 cm; Wt 107.0 kg
[2022-07-15 20:25] VITALS: BP 120/78
--- NOTE | 2022-07-15 20:57 | ED General ---
General Chief Complaint: General Problems/Pain Stated Complaint: FALL LEFT SHOULDER/WOJCIECH KNEE PAIN Nursing Triage Note: Pt presents with c/o bilateral knee pain and L shoulder pain after a fall that occurred on 07/05/22. She reports hx of problems with L knee, and is wanting a steroid shot. Source of Information: Patient Exam Limitations: No Limitations History of Present Illness Date Seen by Provider: Jul 15, 2022 Time Seen by Provider: 20:40 Initial Comments Here with complaint of bilateral knee and left shoulder pain after a fall that occurred 10 days ago. States that she has had long-term problems with the left knee and that is can have to get fixed eventually. She was hoping to get a steroid shot. Denies other injury other than the left knee and left shoulder and now right knee pain. States the right knee pain started coming on after she was protecting her left knee while walking. She is walking with a cane. She is using Tylenol for pain control. Timing/Duration: Getting Worse, Other (10 days) Severity: Moderate Associated Systoms: No Weakness Allergies and Home Medications Allergies Coded Allergies: Penicillins (Verified Allergy, Mild, RASH, 05/09/18) Sulfa (Sulfonamide Antibiotics) (Verified Allergy, Mild, RASH, 05/09/18) Patient Home Medication List Home Medication List Reviewed: Yes Albuterol Sulfate (Ventolin Hfa) 1 Puff Puff, 2 PUFF IH Q4H PRN for SHORTNESS OF BREATH, (Reported) Entered as Reported by: LAZARA SNYDER on 05/09/18 1226 Cetirizine HCl (Cetirizine HCl) 10 Mg Tablet, 10 MG PO DAILY, (Reported) Entered as Reported by: FACUNDO WIGGINS on 09/22/20 0727 Cholecalciferol (Vitamin D3) (Vitamin D3) 50 Mcg (2000 Unit) Capsule, 50 MCG PO UD, (Reported) Entered as Reported by: DARIEL LYNN on 10/28/21 1211 Docusate Sodium (Colace) 100 Mg Capsule, 100 MG PO BID Prescribed by: LENA PARTIDA on 11/04/21 1102 Fesoterodine Fumarate (Toviaz) 4 Mg Tab.sr.24h, 4 MG PO, (Reported) Entered as Reported by: DARIEL LYNN on 10/28/21 1211 Fluvoxamine Maleate (Fluvoxamine Maleate) 100 Mg Tablet, 150 MG PO BID, (Reported) Entered as Reported by: DARIEL LYNN on 10/28/21 121 Gabapentin (Gabapentin) 300 Mg Capsule, 300 MG PO TID, (Reported) Entered as Reported by: LAZARA SNYDER on 05/09/18 122 Hydrochlorothiazide (Hydrochlorothiazide) 50 Mg Tablet, 50 MG PO DAILY, (Report ed) Entered as Reported by: LAZARA SNYDER on 05/09/18 122 Hydrocodone/Acetaminophen (Hydrocodone-Acetamin 5-325 mg) 5 Mg-325 Mg Tablet, 1 EACH PO Q4H PRN for PAIN-MODERATE (5-7) Prescribed by: LENA PARTIDA on 11/04/21 110 Hydroxyzine Pamoate (Hydroxyzine Pamoate) 50 Mg Capsule, 50 MG PO BID, (Reported) Entered as Reported by: FACUNDO WIGGINS on 09/22/20726 Lamotrigine (Lamotrigine) 150 Mg Tablet, 150 MG PO DAILY, (Reported) Entered as Reported by: FACUNDO WIGGINS on 09/22/20726 Metoprolol Succinate (Metoprolol Succinate) 25 Mg Tab.er.24h, 25 MG PO DAILY, (Reported) Entered as Reported by: FACUNDO WIGGINS on 09/22/20726 Metronidazole (Metronidazole) 500 Mg Tablet, 500 MG PO BID, (Reported) Entered as Reported by: DARIEL LYNN on 10/28/211210 Pantoprazole Sodium (Pantoprazole Sodium) 20 Mg Tablet.dr, 20 MG PO DAILY, (Reported) Entered as Reported by: LAZARA SNYDER on 05/09/18 1226 Polyethylene Glycol 3350 (Polyethylene Glycol 3350) 17 Gm Powd.pack, 1 EACH PO BID, (Reported) Entered as Reported by: FACUNDO WIGGINS on 09/22/20726 Potassium Chloride (Potassium Chloride) 20 Meq Tab.er.prt, 20 MEQ PO BID, (Repor dara) Entered as Reported by: FACUNDO WIGGINS on 09/22/20726 Sucralfate (Sucralfate) 1 Gram Tablet, 1 GM PO UD, (Reported) Entered as Reported by: DARIEL LYNN on 6/30/22 1211 Valbenazine Tosylate (Ingrezza) 40 Mg Capsule, 40 MG PO HS, (Reported) Entered as Reported by: DARIEL LYNN on 10/28/21 1211 Review of Systems Review of Systems Constitutional: see HPI; No chills, No fever Musculoskeletal: joint pain, joint swelling, muscle pain Skin: No change in color, No lesions Past Yeinmuw-Zvcofj-Ewcdji Hx Patient Social History Tobacco Use?: No Immunizations Up To Date Tetanus Booster (TDap): Unknown Influenza Vaccine Up-to-Date: No; Not Current First/Initial COVID19 Vaccinat: june 2020 Second COVID19 Vaccination Miguel: july 2020 Third COVID19 Vaccination Date: june 2020 Seasonal Allergies Seasonal Allergies: No Past Medical History Surgeries: Yes (RIGHT KNEE SCOPE, COLONOSCOPY;CARDIAC CATH-NO INTERVENTION) Cardiac, Gallbladder, Orthopedic Respiratory: Yes Sleep Apnea, COPD Currently Using CPAP: Yes Currently Using BIPAP: No Cardiac: Yes (CARDIAC CATH-NO INTERVENTION) High Cholesterol, Hypertension Neurological: Yes Headaches /Migraines, Neuropathy [employer]GER History: Menopausal Sexually Transmitted Disease: No HIV/AIDS: No Genitourinary: Yes (SEES A KIDNEY 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 ) Anxiety, Bipolar, Depression Integumentary: No Blood Disorders: No Adverse Reaction/Blood Tranf: No (N/A) Family Medical History Reviewed Nursing Family Hx PAST SURGICAL HISTORY: --09/22/20--CARDIAC CATH BY DR. MOLINA: CONCLUSIONS: 1. No angiographically significant coronary artery disease. 2. Normal left ventricular end-diastolic pressure. Physical Exam Vital Signs Vital Signs - First Documented 07/15/22 20:25 Temp 36.5 Pulse 78 Resp 16 B/P (MAP) 120/78 (92) Capillary Refill : Less Than 3 Seconds Height, Weight, BMI Height: 5'3.00" Weight: 267lbs. 0.0oz. 121.979531gy; 41.00 BMI Method:Stated General Appearance: No Apparent Distress, WD/WN Extremity: Other (Tenderness to the upper lateral and medial aspect of the left knee with effusion noted. Pain with range of motion. Knee otherwise appears stable without contusion. Left shoulder has pain on internal rotation and supination especially with downward pressure. Pain is to the anterior superior portion. She does have full range of motion but does have a little pain when lifting her arm above her head. Also has some pain over the lateral aspect of the clavicle. No deformity noted.) Progress/Results/Core Measures Suspected Sepsis SIRS Temperature: Pulse: 78 Respiratory Rate: 16 Blood Pressure 120 /78 Mean: 92 Results/Orders My Orders Orders - NAOMI DIAS MD Shoulder, Left, 3 Views (07/15/22 20:55) Knee, Left, 3 Views (07/15/22 20:55) Vital Signs/I&O 07/15/22 20:25 Temp 36.5 Pulse 78 Resp 16 B/P (MAP) 120/78 (92) Capillary Refill : Less Than 3 Seconds Blood Pressure Mean: 92 Progress Note : Progress Note Seen and evaluated. We will get x-ray of the left knee and left shoulder. Right knee seems to be more related to use and not specific her current injury. Shoulder appears to be more rotator cuff related but we will review for occult fracture. Potential for fracture of the knee although less likely as she has been walking on it but we will check x-ray for possible fracture. We did discuss pain control. Patient is on a variety of medicines that make her drowsy and does have history of kidney dysfunction. She is unable to take ibuprofen. We did discuss other medications but these would all increase drowsiness and patient does not want to do that. She was really hoping mostly for a steroid shot which I do not do. This was discussed with the patient who verbalized understanding. Ultimately she elected to continue with acetaminophen at home and I will give her follow-up information for orthopedics. We are pending x- rays. Monitor patient. 2200: No obvious fracture of the left knee on my interpretation. Radiology reports no acute fracture. We will initiate steroid with prednisone 40 mg p.o. now and continue that for 3 days due to the [id number]-[id number] on the left knee. I did discuss the importance of follow-up. Discharged home with return precautions. Patient verbalized understanding of instructions and agreement with plan. Diagnostic Imaging Diagonstic Imaging: Xray Comments [facility] [place], [place] NAME: K[facility]IN [facility] REC#: [id number] PT STATUS: REG ER : 1965 PHYSICIAN: NAOMI DIAS MD ADMIT DATE: 07/15/22/ER Draft Date of Exam:07/15/22 SHOULDER, LEFT, 3 VIEWS INDICATION: 57-year-old female with bilateral knee pain and left shoulder pain after fall. COMPARISONS: None. FINDINGS: Three views of the left shoulder show no evidence of new or healing fractures, bony destruction or remodeling. The left humeral head appears well-seated within the left glenoid. There is mild left AC joint arthropathy. IMPRESSION: Mild left AC joint arthropathy; otherwise, no fracture or subluxation seen with an intact left glenohumeral joint. Dictated on workstation # [id number] Dict: 07/15/222114 Trans: 07/15/222120 [facility] [phone] Interpreted by: LATRICIA QUICK MD Electronically signed by: Diagonstic Imaging: Xray Plain Films/CT/US/NM/MRI: knee Comments [facility] [employer] [facility] [place] [place] NAME: KALIN [facility] REC#: [id number] PT STATUS: REG ER : 1965 PHYSICIAN: NAOMI DIAS MD ADMIT DATE: 07/15/22/ER Signed Date of Exam:07/15/22 KNEE, LEFT, 3 VIEWS INDICATION: 57-year-old female presents with bilateral knee pain and left shoulder pain after fall that occurred approximately 10 days prior. COMPARISONS: None. FINDINGS: Three views of the left knee shows severe left knee arthropathy with tricompartmental joint space narrowing with essentially bajp-ed-dhsi involving the left femur and tibia. There is no joint effusion. No evidence of acute fracture or acute subluxation seen. IMPRESSION: Severe DJD of left knee with essentially oitf-cx-rnwa and tricompartmental narrowing but no evidence of acute fracture or acute subluxation. Dictated by: Dictated on workstation # [id number] Dict: 07/15/222112 Trans: 07/15/222144 [facility] [id number] Interpreted by: LATRICIA QUICK MD Electronically signed by: LATRICIA QUICK MD 07/15/222144 Departure Impression Primary Impression: Degenerative joint disease of left knee Qualified Codes: M17.12 - Unilateral primary osteoarthritis, left knee Additional Impression: Left shoulder pain Qualified Codes: M25.512 - Pain in left shoulder Disposition: HOME, SELF-CARE Condition: Stable Departure-Patient Inst. Decision time for Depature: 22:05 Referrals: MARIAM STACY MD, MAYRA L APRN (PCP) Primary Care Physician DANIEL AMARO MD Patient Instructions: Osteoarthritis (DC), Shoulder Pain (DC) Add. Discharge Instructions: All discharge instructions reviewed with patient and/or family. Voiced understanding. Take medications as directed. You may take Tylenol/acetaminophen 1000 mg every 6-8 hours as needed for pain. Use ice packs to area of concern for 20 minutes/h as needed to reduce swelling and pain. Alternatively you may use heat if that feels better. Follow-up with your doctor early next week for recheck and further evaluation. You will need to follow-up with one of the orthopedist listed or of your choosing for recheck and further evaluation especially of the knee. Return for worse pain, swelling, weakness or other concerns as needed. Scripts Prednisone (Prednisone) 20 Mg Tab 40 MG PO DAILY, #6 TAB 0 Refills Prov: NAOMI DIAS MD 07/15/22 NAOMI DIAS MD Jul 15, 2022 20:56
--- NOTE | 2022-07-15 21:22 | Diagnostic Imaging Report ---
INDICATION: 57-year-old female with bilateral knee pain and left shoulder pain after fall. COMPARISONS: None. FINDINGS: Three views of the left shoulder show no evidence of new or healing fractures, bony destruction or remodeling. The left humeral head appears well-seated within the left glenoid. There is mild left AC joint arthropathy. IMPRESSION: Mild left AC joint arthropathy; otherwise, no fracture or subluxation seen with an intact left glenohumeral joint. Dictated by: Dictated on workstation # [id number]
--- NOTE | 2022-07-15 21:22 | Diagnostic Imaging Report ---
INDICATION: 57-year-old female presents with bilateral knee pain and left shoulder pain after fall that occurred approximately 10 days prior. COMPARISONS: None. FINDINGS: Three views of the left knee shows severe left knee arthropathy with tricompartmental joint space narrowing with essentially snrm-br-jejo involving the left femur and tibia. There is no joint effusion. No evidence of acute fracture or acute subluxation seen. IMPRESSION: Severe DJD of left knee with essentially mtoo-tu-dbbl and tricompartmental narrowing but no evidence of acute fracture or acute subluxation. Dictated by: Dictated on workstation # [id number]
[2022-07-15] MEDS ORDERED: PRD20T PO (22:07)
[2022-07-15] MEDS ORDERED: predniSONE 20 MG TAB PO ONE (22:15)
== END 2022-07-15 22:18 | disposition home or self-care (01) ==
LOC: EDUNIT# 20:18 → ER 20:20
DX: M17.12 Unilateral primary osteoarthritis, left knee (principal); M25.512 Pain in left shoulder; E66.9 Obesity, unspecified; G47.30 Sleep apnea, unspecified; Z68.41 Body mass index [BMI] 40.0-44.9, adult; Z99.89 Dependence on other enabling machines and devices; W19.XXXA Unspecified fall, initial encounter
CPT/HCPCS: 73030; 73562

== ENCOUNTER → 2022-08-08 | Outpatient (CLI) | payer MEDICAID ==
[~2022-08-08] MED LIST changes: +PRD20T PO
--- NOTE | 2022-08-08 17:33 | Diagnostic Imaging Report ---
PROCEDURE: US Non-ob pelvis comp/trans. TECHNIQUE: Multiple realtime grayscale images were obtained of the pelvis in various projections endovaginally. Transabdominal imaging was also performed. INDICATION: Uterus measures 6 cm in length and 3.5 cm in diameter. Endometrial stripe is 3 mm. There is a 1.2 x 1.0 cm hypoechoic nodule in the uterine fundus. This is likely an intramural fibroid. There is a 6 x 4 mm fibroid in the anterior uterine myometrium. Neither ovary could be seen because of bowel gas and body habitus. There is no free fluid. IMPRESSION: Small uterine fibroids. Suboptimal and visualization of the cervix. Further evaluation with direct visualization recommended. Dictated by: Dictated on workstation # [id number]
== END ==
LOC: RAD 12:23
PROVIDERS: ATTEND Nurse Practitioner Women's Health
DX: D25.9 Leiomyoma of uterus, unspecified (principal)
CPT/HCPCS: 76830; 76856

== ENCOUNTER 2022-09-05 19:06 | Emergency (ER) | payer MEDICAID ==
--- NOTE | 2022-09-05 19:16 | ED General ---
General Stated Complaint: POSS ALLERGIC REACTION Source of Information: Patient, EMS Exam Limitations: No Limitations History of Present Illness Date Seen by Provider: September 05, 2022 Time Seen by Provider: 19:06 Initial Comments 57-year-old female presents for possible allergic reaction about 10 days ago she was started on triamterene in addition to hydrochlorothiazide. She states a couple of days ago she started itching. She had an upset stomach and headache today. She called the ambulance to be evaluated as her car broke down at home and she does not have a ride. She denies any skin rashes. No vomiting. No palpitations or shortness of breath. No swelling. She was givien 50 mg of Benadryl IV by EMS prior to arrival All other systems reviewed and negative except documented per HPI. Voice recognition software was used to help create this chart Allergies and Home Medications Allergies Coded Allergies: Penicillins (Verified Allergy, Mild, RASH, 05/09/18) Sulfa (Sulfonamide Antibiotics) (Verified Allergy, Mild, RASH, 05/09/18) Patient Home Medication List Home Medication List Reviewed: Yes Albuterol Sulfate (Ventolin Hfa) 1 Puff Puff, 2 PUFF IH Q4H PRN for SHORTNESS OF BREATH, (Reported) Entered as Reported by: LAZARA SNYDER on 05/09/18 1226 Cetirizine HCl (Cetirizine HCl) 10 Mg Tablet, 10 MG PO DAILY, (Reported) Entered as Reported by: FACUNDO WIGGINS on 09/22/20 0727 Cholecalciferol (Vitamin D3) (Vitamin D3) 50 Mcg (2000 Unit) Capsule, 50 MCG PO UD, (Reported) Entered as Reported by: DARIEL LYNN on 10/28/21 1211 Docusate Sodium (Colace) 100 Mg Capsule, 100 MG PO BID Prescribed by: LENA PARTIDA on 11/04/21 1102 Fesoterodine Fumarate (Toviaz) 4 Mg Tab.sr.24h, 4 MG PO, (Reported) Entered as Reported by: DARIEL LYNN on 10/28/21 1211 Fluvoxamine Maleate (Fluvoxamine Maleate) 100 Mg Tablet, 150 MG PO BID, (Reported) Entered as Reported by: DARIEL LYNN on 10/28/21 1211 Gabapentin (Gabapentin) 300 Mg Capsule, 300 MG PO TID, (Reported) Entered as Reported by: LAZARA SNYDER on 05/09/18 1226 Hydrochlorothiazide (Hydrochlorothiazide) 50 Mg Tablet, 50 MG PO DAILY, (Reported) Entered as Reported by: LAZARA SNYDER on 05/09/18 1226 Hydrocodone/Acetaminophen (Hydrocodone-Acetamin 5-325 mg) 5 Mg-325 Mg Tablet, 1 EACH PO Q4H PRN for PAIN-MODERATE (5-7) Prescribed by: LENA PARTIDA on 11/04/21 1103 Hydroxyzine Pamoate (Hydroxyzine Pamoate) 50 Mg Capsule, 50 MG PO BID, (Reported) Entered as Reported by: FACUNDO WIGGINS on 09/22/20726 Lamotrigine (Lamotrigine) 150 Mg Tablet, 150 MG PO DAILY, (Reported) Entered as Reported by: FACUNDO WIGGINS on 09/22/20726 Metoprolol Succinate (Metoprolol Succinate) 25 Mg Tab.er.24h, 25 MG PO DAILY, (Reported) Entered as Reported by: FACUNDO WIGGINS on 09/22/20726 Metronidazole (Metronidazole) 500 Mg Tablet, 500 MG PO BID, (Reported) Entered as Reported by: DARIEL LYNN on 10/28/211210 Pantoprazole Sodium (Pantoprazole Sodium) 20 Mg Tablet.dr, 20 MG PO DAILY, (Reported) Entered as Reported by: LAZARA SNYDER on 05/09/18 1226 Polyethylene Glycol 3350 (Polyethylene Glycol 3350) 17 Gm Powd.pack, 1 EACH PO BID, (Reported) Entered as Reported by: FACUNDO WIGGINS on 09/22/20726 Potassium Chloride (Potassium Chloride) 20 Meq Tab.er.prt, 20 MEQ PO BID, (Reported) Entered as Reported by: FACUNDO WIGGINS on 09/22/20726 Prednisone (Prednisone) 20 Mg Tab, 40 MG PO DAILY Prescribed by: NAOMI DIAS on 07/15/222206 Sucralfate (Sucralfate) 1 Gram Tablet, 1 GM PO UD, (Reported) Entered as Reported by: DARIEL LYNN on 10/28/21 121 Valbenazine Tosylate (Ingrezza) 40 Mg Capsule, 40 MG PO HS, (Reported) Entered as Reported by: DARIEL LYNN on 10/28/21 1211 Review of Systems Review of Systems Constitutional: see HPI Past Qbagjdp-Ugjkxk-Wupmxd Hx Patient Social History Tobacco Use?: No Use of E-Cig and/or Vaping dev: No Substance use?: No Alcohol Use?: No Immunizations Up To Date Tetanus Booster (TDap): Unknown First/Initial COVID19 Vaccinat: june 2020 Second COVID19 Vaccination Miguel: july 2020 Third COVID19 Vaccination Date: june 2020 Seasonal Allergies Seasonal Allergies: No Past Medical History Surgeries: Yes (RIGHT KNEE SCOPE, COLONOSCOPY;CARDIAC CATH-NO INTERVENTION) Cardiac, Gallbladder, Orthopedic Respiratory: Yes Sleep Apnea, COPD Currently Using CPAP: Yes Currently Using BIPAP: No Cardiac: Yes (CARDIAC CATH-NO INTERVENTION) High Cholesterol, Hypertension Neurological: Yes Headaches /Migraines, Neuropathy [employer] F[employer]ER History: Menopausal Sexually Transmitted Disease: No HIV/AIDS: No Genitourinary: Yes (SEES A KIDNEY 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 ) Anxiety, Bipolar, Depression Integumentary: No Blood Disorders: No Adverse Reaction/Blood Tranf: No (N/A) Family Medical History PAST SURGICAL HISTORY: --09/22/20--CARDIAC CATH BY DR. MOLINA: CONCLUSIONS: 1. No angiographically significant coronary artery disease. 2. Normal left ventricular end-diastolic pressure. Physical Exam Vital Signs Vital Signs - First Documented 09/05/22 19:08 Temp 36.5 Pulse 76 Resp 18 B/P (MAP) 125/72 (89) Pulse Ox 94 O2 Delivery Room Air Capillary Refill : Height, Weight, BMI Height: 5'3.00" Weight: 267lbs. 0.0oz. 121.094451xt; 41.00 BMI Method:Stated General Appearance: No Apparent Distress, WD/WN HEENT: Normal ENT Inspection, Pharynx Normal Neck: Normal Inspection, Supple Respiratory: Chest Non Tender, Lungs Clear, Normal Breath Sounds, No Accessory Muscle Use, No Respiratory Distress Cardiovascular: Regular Rate, Rhythm, No Murmur, Normal Peripheral Pulses Gastrointestinal: Normal Bowel Sounds, Non Tender, Soft Extremity: Normal Capillary Refill, Normal Inspection, Non Tender, No Calf Tenderness Neurologic/Psychiatric: Alert, Oriented x3, Normal Mood/Affect Skin: Normal Color, Warm/Dry Progress/Results/Core Measures Suspected Sepsis SIRS Temperature: Pulse: Respiratory Rate: Blood Pressure / Mean: Laboratory Tests 09/05/22 19:11: Creatinine 1.53H, Total Bilirubin 0.3 Results/Orders Lab Results Laboratory Tests Test 09/05/22 19:11 Range/Units Sodium Level 141 135-145 MMOL/L Potassium Level 3.1 L 3.6-5.0 MMOL/L Chloride Level 106 98-107 MMOL/L Carbon Dioxide Level 22 21-32 MMOL/L Anion Gap 13 5-14 MMOL/L Blood Urea Nitrogen 20 H 7-18 MG/DL Creatinine 1.53 H 0.60-1.30 MG/DL Estimat Glomerular Filtration Rate 39 BUN/Creatinine Ratio 13 Glucose Level 91 70-105 MG/DL Calcium Level 9.6 8.5-10.1 MG/DL Corrected Calcium 9.8 8.5-10.1 MG/DL Total Bilirubin 0.3 0.1-1.0 MG/DL Aspartate Amino Transf (AST/SGOT) 14 5-34 U/L Alanine Aminotransferase (ALT/SGPT) 19 0-55 U/L Alkaline Phosphatase 104 40-136 U/L Total Protein 6.5 6.4-8.2 GM/DL Albumin 3.8 3.2-4.5 GM/DL My Orders Orders - YAYA HEMPHILL DO Comprehensive Metabolic Panel (09/05/22 19:13) Potassium Chloride (Tablet) (K Dur Table (09/05/22 19:45) Medications Given in ED Current Medications Medications Dose Ordered Sig/Bubba Route Start Time Stop Time Status Last Admin Dose Admin Potassium Chloride 40 meq ONCE ONCE PO 09/05/22 19:45 09/05/22 19:46 DC 09/05/22 19:45 40 MEQ Vital Signs/I&O 09/05/22 19:08 Temp 36.5 Pulse 76 Resp 18 B/P (MAP) 125/72 (89) Pulse Ox 94 O2 Delivery Room Air Capillary Refill : Departure Communication (Admissions) Patient is hemodynamically stable. There is no evidence for allergic or other reaction at this time. She has no skin rashes. Normal vital signs. She be discharged in stable condition with supportive care. She did have slight hypokalemia. Repleted orally and advised recheck in 48 hours with her primary physician. She states understanding Impression Primary Impression: Encounter for medical screening examination Disposition: HOME, SELF-CARE Condition: Stable Departure-Patient Inst. Referrals: PATRICIA GRAJEDA APRN (PCP/Family) Primary Care Physician Patient Instructions: Drug Allergy Add. Discharge Instructions: It is unclear what your symptoms are related to. I do not think it is likely related to the medication however if you continue to have symptoms you might talk to your doctor about possibly changing this. Use Benadryl as needed. Increase your fluids and rest. Your potassium was slightly low here today. I gave you some orally. We will want to have this rechecked with your doctor in the next 2 to 3 days. YAYA HEMPHILL DO September 05, 2022 19:16
[2022-09-05 19:33] LABS: ALBUMIN 3.8 GM/DL (3.2-4.5); POTASSIUM 3.1 MMOL/L (3.6-5.0)
[2022-09-05 19:34] LABS: CALCIUM 9.6 MG/DL (8.5-10.1)
[2022-09-05 19:35] LABS: TOTAL PROTEIN 6.5 GM/DL (6.4-8.2)
[2022-09-05 19:37] LABS: BILIRUBIN,TOTAL 0.3 MG/DL (0.1-1.0)
[2022-09-05 19:39] LABS: CREATININE SERUM 1.53 MG/DL (0.60-1.30)
[2022-09-05] MEDS ORDERED: KCL 20 MEQ TAB (K-DUR) PO ONE (19:45)
[2022-09-05 20:22] VITALS: BP 119/82
== END 2022-09-05 20:26 | disposition home or self-care (01) ==
LOC: EDUNIT# 19:06 → ER 19:07
DX: Z00.01 Encounter for general adult medical examination with abnormal findings (principal); E87.6 Hypokalemia
CPT/HCPCS: 36415; 80053; 99283

== ENCOUNTER → 2022-12-19 | Outpatient (CLI) | payer MEDICAID | LOC: CARD 12:19 | PROVIDERS: ATTEND Nurse Practitioner Family | DX: I34.0 Nonrheumatic mitral (valve) insufficiency (principal) | CPT/HCPCS: 93306 ==

== ENCOUNTER → 2023-02-03 | Outpatient (CLI) | payer MEDICAID ==
--- NOTE | 2023-02-03 11:47 | Diagnostic Imaging Report ---
INDICATION: Dysphagia. Procedure was performed in conjunction with speech pathology. Video fluoroscopy was performed during swallowing of barium multiple consistencies. 51 seconds of fluoroscopic time was utilized. Reference air kerma is 1.8 mGy. Patient ingested thin barium as well as applesauce, banana and cracker consistency. Oral phase is unremarkable. There is normal laryngeal elevation and epiglottic tilt. No penetration or aspiration was observed. No significant vallecular or piriform sinus residue was demonstrated. IMPRESSION: Unremarkable modified barium swallow study. Dictated by: Dictated on workstation # [id number]
== END ==
LOC: RAD 09:45
PROVIDERS: ATTEND Plastic Surgery Plastic Surgery Within the Head and Neck
DX: E07.9 Disorder of thyroid, unspecified (principal); J38.00 Paralysis of vocal cords and larynx, unspecified; R13.13 Dysphagia, pharyngeal phase
CPT/HCPCS: 74230